=== PATIENT | male | born 1950 | race Caucasian/White ===

== ENCOUNTER 2020-04-04 05:23 | Emergency (ER) | payer MEDICARE, SELFPAY ==
[2020-04-04 05:24] VITALS: BP 148/81; PULSE 108; RESP 17; TEMP 36.6; O2SAT 93; BMI 32.9
[2020-04-04 05:35] VITALS: BP 147/92; PULSE 107; RESP 15; O2SAT 94
--- NOTE | 2020-04-04 05:40 | PC.NURSE ---
Patient must have thickener with liquids due to stroke history!
--- NOTE | 2020-04-04 06:10 | CT_ITS ---
WS: [id number] CT LUMBAR SPINE, noncontrast. HISTORY: fall, pain TECHNIQUE: Contiguous 2.5 mm axial imaging are performed. Sagittal and coronal reformats are submitte d and reviewed. All CT scans at [facility] use at least one of these dose optimization te chniques: automated exposure control; mA and/or kV adjustment per patient size (includes targeted exa ms where dose is matched to clinical indication); or iterative reconstruction. IV contrast: None DLP: 2571.75 mGy.cm COMPARISON: Lumbar spine radiograph 12/16/2017. LEFT convex curvature lumbar spine. L5 anterolisthesis by 12 mm. Bilateral L5 pars defects. Very slig ht stable anterior wedging of L1. Remote bilateral L1 transverse process fractures have been present since at least 2012. No acute fractures are identified radiographically. Subchondral lytic changes ar e noted along the inferior posterior L3 endplate surrounded by sclerosis. Degenerative disc disease t hroughout the lumbar spine, most significant at L5-S1. There is bone upon bone along the posterior di sc space at L5-S1. L1-2: No stenosis. L2-3: Osteophytic ridging and disc bulging and facet arthritis. L3-4: Shallow RIGHT paracentral disc protrusion and annular disc bulging and osteophytic ridging. Mil d central stenosis. L4-5: Mild annular disc bulging with facet and ligamentum flavum hypertrophy. Small disc protrusion L EFT paracentral. Mild foraminal stenosis. L5-S1: Mild osteophytic ridging. Moderate bilateral foraminal stenosis due to combination of factors. Extensive calcification within the abdominal aorta. No aneurysm. Mild ectasia iliac arteries. CT/CT lumbar spine wo con* [id number] IMPRESSION: 1. No acute lumbar spine fracture. 2. Grade 1 spondylolisthesis L5 with spondylolysis. 3. Advanced degenerative disc disease at L5-S1. 4. Moderate bilateral foraminal stenosis at L5-S1.
--- NOTE | 2020-04-04 06:10 | XR_ITS ---
WS: [id number] LEFT SHOULDER: 3 VIEW(S) TECHNIQUE: Internal and external rotation with Y view. HISTORY: fall, pain COMPARISON: None available. No fracture or dislocation or soft tissue abnormality. Minimal arthritic changes at the AC joint. XR/XR shoulder LT min 2V* [id number] IMPRESSION: No LEFT shoulder fracture.
--- NOTE | 2020-04-04 06:11 | XR_ITS ---
WS: [id number] LEFT FEMUR: 2 VIEW(S) TECHNIQUE: AP and lateral. HISTORY: fall, pain COMPARISON: None available. No fracture or dislocation. Vascular calcifications and degenerative changes at the hip and knee. XR/XR femur LT min 2V* [id number] Impression: No LEFT femur fracture identified.
--- NOTE | 2020-04-04 06:18 | W.ED.BACK ---
HPI - Back Pain/Injury General: Chief Complaint: Back Pain/Injury Stated Complaint: back pain Time Seen by Provider: 04/04/20 06:09 History of Present Illness: HPI Narrative: This patient is a 69-year-old male presenting today by EMS after a fall at home. He was trying to get out of bed and said he slipped because he has a silk texture comforter on the bed. Said he try to catch himself on it and just slid to the ground. He denies hitting his head or loss of consciousness. His pain is in his left shoulder, left hip, left thigh and both knees. He also has pain in his lumbar area. He has abrasions to both knees and his left toes. He has a history of a stroke leaving him with numbness on his left side. He said he still is able to ambulate does not use any sort of assistive device. MD elicited complaint: back pain, fall and other (Left shoulder, left hip, both knees) Pertinent past history: neurological deficit Onset (ago): hour(s) (1) Timing: constant and improved (Back pain is better after taking Tylenol) Severity: moderate Similar Symptoms Previously: No Location: lumbar spine Radiation: none Exacerbating factors: none Associated symptoms: Deny abdominal pain, chills, fatigue, fever(s), nausea or vomiting Review of Systems General: Reports: 10 or more systems reviewed and unremarkable except in HPI and below Const: Denies: fever(s), chills, fatigue or malaise Eyes: Denies: change in vision ENMT: Denies: odynophagia Card: Denies: chest pain or swelling of feet/ankles Resp: Denies: dyspnea, productive cough or non-productive cough GI: Denies: abdominal pain, nausea or vomiting : Denies: flank pain Musc: Reports: neck pain (Unrelated to the fall) and back pain (Since the fall) Skin/Breast: Denies: rash Neuro: Reports: numbness in extremities (Left-sided, related to prior stroke); Denies: headache(s) or weakness in extremities Loco/Lymph: Denies: easy bruising or easy bleeding Physical Exam Const: COMMON NORMALS: no acute distress, patient oriented x3, no limitations and alert GENERAL APPEARANCE: cooperative and comfortable HENMT: HEAD & SCALP: normal to inspection FACE & SINUS: normal facial exam Eye: GENERAL EYE: appearance normal, both eyes and all related structures Neck/C-Spine: COMMON NORMALS: supple, no meningeal signs and no JVD Chest: COMMONS NORMALS: normal inspection of the chest Resp: COMMON NORMALS: normal respiratory effort, No use of accessory muscles and clear to auscultation bilaterally AUSCULTATION: clear to auscultation bilaterally Cardio: COMMON NORMALS: no JVD, regular rate and No murmurs present (Cardio) RATE: regular rate RHYTHM: abnormal rhythm irregularly irregular GI: COMMON NORMALS: Normal to inspection, nondistended, normoactive bowel sounds present, Soft to palpation and non-tender INSPECTION: Yes normal to inspection AUSCULTATION: Yes normoactive bowel sounds PALPATION: Yes Soft to palpation Back/Pelvis: COMMON NORMALS: thoracic and lumbar spine normal to inspection Extremity: COMMON NORMALS: normal to inspection Neuro: COMMON NORMALS: patient oriented x3, moves all extremities, no focal motor deficits and no sensory deficits noted (Left sided numbness) SENSORIUM/ORIENTATION: Yes alert MENINGEAL SIGNS: Yes no meningeal signs Psych: COMMON NORMALS: mental status grossly normal, cooperative and normal affect Skin: COMMON NORMALS: no rashes or lesions noted and turgor normal GENERAL SKIN EXAM: no rashes or lesions noted and turgor normal Course ED course: Negative for any bony injuries. Patient ambulated in the ED but with difficulty. He was advised to use his walker that he has at home. He does not want to be admitted to the hospital or placed in a long-term. Vital Signs: Vital signs: Vital Signs Temperature 97.8 F 04/04/20 05:24 Pulse Rate 70 04/04/20 12:02 Respiratory Rate 15 04/04/20 12:02 Blood Pressure 147/98 04/04/20 06:19 Pulse Oximetry 95 04/04/20 06:19 Discharge Plan Discharge Patient Disposition: Home Clinical Impression: Hip pain, left Strain of lumbar region Qualifiers: Encounter type: initial encounter Qualified Code(s): S39.012A - Strain of muscle, fascia and tendon of lower back, initial encounter Contusion of left shoulder Qualifiers: Encounter type: initial encounter Qualified Code(s): S40.012A - Contusion of left shoulder, initial encounter Right knee sprain Qualifiers: Encounter type: initial encounter Involved ligament of knee: unspecified ligament Qualified Code(s): S83.91XA - Sprain of unspecified site of right knee, initial encounter Condition: Stable Prescriptions: No Action potassium chloride 10 mEq capsule, extended release 10 meq PO QAM RF: 0 atorvastatin 20 mg tablet 20 mg PO QPM RF: 0 warfarin 7.5 mg tablet See Rx Instructions .ROUTE .COMPLEX RF: 0 lisinopril 20 mg tablet 20 mg PO TID RF: 0 clonidine HCl 0.3 mg tablet 0.3 mg PO TID RF: 0 tamsulosin 0.4 mg capsule 0.4 mg PO BEDTIME RF: 0 hydralazine 100 mg tablet 100 mg PO TID RF: 0 warfarin 5 mg tablet See Rx Instructions .ROUTE .COMPLEX RF: 0 diltiazem HCl 120 mg capsule,extended release 24hr 120 mg PO QAM RF: 0 furosemide 20 mg tablet 20 mg PO QAM PRN (Reason: Edema) RF: 0 Novolog PenFill U-100 Insulin 100 unit/mL Cartridge 16 unit SUBCUT TID RF: 0 Lantus Solostar U-100 Insulin 100 unit/mL (3 mL) Insulin Pen 90 unit SUBCUT BEDTIME RF: 0 Discharge Orders: Discharge Order (Routine); Ordered 04/04/20 Ordered By: Anya Lerma Referrals: Destiny Bates MD [Primary Care Provider] - Discharge Diet: Usual diet Discharge Activity: Resume usual activity Patient Instructions: Fall Prevention for Older Adults (ED) Activity Restrictions/Additional Instructions: Use your walker when ambulating. Follow-up with Dr. Bates for reevaluation of your symptoms. Return to the ED if any new or worse problems occur. Discharge Date/Time: 04/04/20 12:03 Coding Level of Care Code ED Schedule Manager for Sergio Fwd Exam Comprehensive
[2020-04-04 06:19] VITALS: BP 147/98; PULSE 108; RESP 16; O2SAT 95
--- NOTE | 2020-04-04 08:55 | PC.NURSE ---
Patient able to ambulated with assistance. Incontinence of urine noted. Patient cleaned and bedding changed.
--- NOTE | 2020-04-04 10:14 | XRR_ITS ---
PROCEDURE INFORMATION: Exam: XR Right Knee Exam date and time: 04/04/2020 10:15 AM Age: 69 years old Clinical indication: Injury or trauma; Fall; Initial encounter; Blunt trauma; Knee; Right; Additional info: Fall, pain TECHNIQUE: Imaging protocol: XR Right knee. Views: 3 views. COMPARISON: No relevant prior studies available. FINDINGS: Bones/joints: Degenerative change and small joint effusion. Anatomic alignment. Soft tissues: Soft tissue calcifications. Vasculature: Vascular calcification. XR/XR knee RT 3V* [id number] IMPRESSION: Degenerative change and small joint effusion.
[2020-04-04] MEDS: acetaminophen 325 mg Tablet 975 MG PO (11:25)
[2020-04-04 12:02] VITALS: PULSE 70; RESP 15
== END 2020-04-04 12:03 | disposition home or self-care (01) ==
PROVIDERS: Emergency Provider Emergency Medicine; PCP Family Medicine
DX: S39.012A Strain of muscle, fascia and tendon of lower back, initial encounter (principal); S40.012A Contusion of left shoulder, initial encounter; S83.91XA Sprain of unspecified site of right knee, initial encounter; M25.552 Pain in left hip; Z79.01 Long term (current) use of anticoagulants; Z79.4 Long term (current) use of insulin; W06.XXXA Fall from bed, initial encounter
CPT/HCPCS: 12345; 72131; 73030; 73552; 73562; 99281; 99283

== ENCOUNTER 2020-04-07 09:27 | Outpatient (CLI) | payer MEDICARE, SELFPAY ==
--- NOTE | 2020-04-07 10:09 | MR_ITS ---
WS: [id number] MRA HEAD TECHNIQUE: Axial 3-D TOF images obtained with axial images and axial, sagittal, and coronal 2-D refor matted images. CLINICAL INFORMATION: CEREBRAL INFARCTION/FALL COMPARISON: None. FINDINGS: Distal vertebral arteries are patent. Basilar artery is patent. Normal vascularity to the [employer] territo ry bilaterally. Both ICAs are patent at the skull base. Normal vascularity to the ANATOLIY and MCA territories bilaterally . No evidence of high-grade proximal stenosis or aneurysm. 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 No high-grade flow. MR/MR angio head wo con [id number] IMPRESSION: 1. No evidence of flow-limiting stenosis or aneurysm. 2. Small focus of susceptibility artifact in the darshana described on the MRI mos t consistent with cavernoma. No evidence of high-grade flow. This is likely inc idental.
--- NOTE | 2020-04-07 10:10 | MR_ITS ---
WS: [id number] MRI HEAD WITHOUT CONTRAST TECHNIQUE: Sagittal T1, T2 axial, T2 axial FLAIR, axial and coronal T1 images, axial susceptibility w eighted imaging, axial diffusion weighted images, and coronal T2 images were obtained. CLINICAL INFORMATION: CEREBRAL INFARCTION/FALL COMPARISON: CT FINDINGS: No evidence of restricted diffusion to suggest acute ischemia. Ventricular system and basal cisterns are patent. Moderate small vessel changes with moderate parenchymal volume loss. Ex vacuo dilatation right lateral ventricle posterior horn. Chronic infarct right parietal and posterior temporal lobes w ith encephalomalacia. Ex vacuo dilatation right lateral ventricle. Chronic lacunar infarcts cerebellum. Normal vascular flow voids at the skull base. Paranasal sinuses are well aerated. Tiny chronic lacunar infarct left thalamus. Small vessel changes in the darshana. Parti al opacification of the mastoid air cells. Chronic hemosiderin in the right parietal occipital and te mporal chronic infarct bed. Focus of hemosiderin in the darshana best seen on the susceptibility weighted imaging measuring 7 mm like ly represents a small cavernoma versus capillary telangiectasia. No evidence of recent hemorrhage. Normal optic chiasm and pituitary infundibulum. Moderate symmetric atrophy involving the temporal lob es and hippocampal formations. MR/MR head wo con* [id number] IMPRESSION: 1. No evidence of restricted diffusion to suggest acute ischemia. 2. Chronic infarct right parietal and occipital lobes as well as posterior tem poral lobe with encephalomalacia. Ex vacuo dilatation posterior horn right late ral ventricle. This is unchanged since 2019 3. Chronic lacunar infarcts in the cerebellum bilaterally and left thalamus. 4. Focus of hemosiderin in the darshana best seen on the susceptibility weighted i maging measuring 7 mm likely represents a small cavernoma versus capillary yvette ngiectasia. No evidence of recent hemorrhage. This is likely incidental. 5. Moderate small vessel changes moderate parenchymal volume loss. 6. Bilateral mastoid effusions. 7. No other significant findings.
== END 2020-04-07 09:28 | disposition home or self-care (01) ==
PROVIDERS: PCP Family Medicine; Visit Provider Family Medicine
DX: I63.9 Cerebral infarction, unspecified (principal); W19.XXXA Unspecified fall, initial encounter
CPT/HCPCS: 70544; 70551

== ENCOUNTER 2020-06-11 10:37 | Outpatient (CLI) | payer MEDICARE, SELFPAY ==
--- NOTE | 2020-06-11 10:52 | XR_ITS ---
WS: [id number] Left hip, AP and frog leg, AP pelvis, 06/11/2020 Clinical Data: LEFT HIP PAIN Comparison: Left thigh and femur, 04/04/2020. Findings: No fractures or dislocations are seen. The left hip joint is intact. The right hip is not remarkable. The soft tissues are not remarkable. The pelvis is normal. The SI joints and pubic symphysis are normal. XR/XR hip LT 2-3V wo/w pel* [id number] Impression: Negative pelvis and left hip.
== END 2020-06-11 10:38 | disposition home or self-care (01) ==
LOC: RADWPI 10:45
PROVIDERS: PCP Family Medicine; Visit Provider Family Medicine
DX: M25.552 Pain in left hip (principal); M79.605 Pain in left leg
CPT/HCPCS: 73502

== ENCOUNTER 2020-12-04 08:13 | Emergency (ER) | payer MEDICARE, SELFPAY ==
[2020-12-04 08:23] VITALS: BP 126/72; PULSE 90; RESP 16; TEMP 36.4; O2SAT 96; BMI 34.0
--- NOTE | 2020-12-04 08:25 | ED_ITS ---
HPI - General Adult General: Chief complaint: Recheck/Abnormal Lab/Rx Stated complaint: HYPOGLYCEMIA Time Seen by Provider: 12/04/20 08:14 History of Present Illness: HPI narrative: 70-year-old male history of diabetes mellitus is on Lantus and NovoLog sliding scale. He takes Lantus 50 mg twice daily this morning his blood sugar got down into the 50s he denies any recent illness if you give him some glucose at home when he is feeling better on arrival here his last blood sugar per EMS was in the 180s. He is hungry hungry awake and alert with no significant pain difficulty breathing or other complaints. Patient states he recently did increase his insulin from 45 twice daily to 50 twice daily Onset (ago): minute(s) Relieving factors: other (Glucose) Exacerbating factors: none Associated symptoms: Deny chest pain, confusion, cough, diaphoresis, decreased appetite, dyspnea, fevers/chills, headache(s), malaise, nausea, rash, palpitations, seizures, short of breath, syncope, vomiting or weakness Treatments prior to arrival: other (glucose) Review of Systems Const: Denies: malaise or diaphoresis ENMT: Denies: throat pain, ear or mastoid pain, nasal discharge or nasal congestion Card: Denies: chest pain, palpitations or syncope Resp: Denies: dyspnea GI: Denies: nausea or vomiting : Denies: flank pain, dysuria, urinary frequency or urinary urgency Skin/Breast: Denies: rash Neuro: Denies: headache(s) or confusion Physical Exam Const: COMMON NORMALS: no acute distress GENERAL APPEARANCE: cooperative and comfortable ORIENTATION/CONSCIOUSNESS: Yes awake, Yes oriented to person, Yes oriented to place and Yes oriented to time HENMT: COMMON NORMALS: normocephalic, atraumatic and hearing grossly normal bilaterally HEAD & SCALP: normocephalic and atraumatic Eye: COMMON NORMALS: Equal, round and reactive pupils present, EOMs intact bilaterally, conjunctivae normal and no scleral icterus CONJUNCTIVA: Yes conjunctivae normal PUPIL: Yes Equal, round and reactive pupils present Neck/C-Spine: COMMON NORMALS: full ROM, no lymphadenopathy, supple and no JVD Lymph: LYMPHATIC: no lymphadenopathy noted and no lymphedema noted Resp: COMMON NORMALS: normal respiratory effort, No retractions, No use of accessory muscles and clear to auscultation bilaterally AUSCULTATION: clear to auscultation bilaterally Cardio: COMMON NORMALS: no JVD, regular rate, regular rhythm and No murmurs present (Cardio) RATE: regular rate RHYTHM: regular rhythm GI: COMMON NORMALS: Soft to palpation and No hepatosplenomegaly present AUSCULTATION: Yes normoactive bowel sounds PALPATION: Yes Soft to palpation, No Tenderness to palpation present (GI), No Guarding due to palpation present (GI) and Yes No hepatosplenomegaly present Extremity: COMMON NORMALS: normal to inspection, capillary refill normal, no clubbing, cyanosis or edema, no calf tenderness and no pedal edema Neuro: SENSORIUM/ORIENTATION: Yes oriented to person, Yes oriented to place and Yes oriented to time Skin: COMMON NORMALS: no rashes or lesions noted GENERAL SKIN EXAM: no rashes or lesions noted Course Vital Signs: Vital signs: Vital Signs Temperature 97.5 F L 12/04/20 08:23 Pulse Rate 83 12/04/20 09:53 Respiratory Rate 16 12/04/20 09:53 Blood Pressure 131/83 12/04/20 09:53 Pulse Oximetry 95 12/04/20 09:53 MDM - General Adult MDM Narrative: Medical decision making narrative: Blood sugar improved patient stable he wishes to go home I see no reason based on the blood sugars not to allow him to go home. Patient is eating well encouraged him to monitor blood sugars closely the next 6 to 8 hours. Lab Data: Labs: Lab Results 12/04/20 12/04/20 Range/Units 08:22 09:32 POC Glucose 184 H 99 (70-110) mg/dL Discharge Plan Discharge Patient Disposition: Home Clinical Impression: Hypoglycemia Condition: Stable Prescriptions: No Action potassium chloride 10 mEq capsule, extended release 10 meq PO QAM RF: 0 atorvastatin 20 mg tablet 20 mg PO QPM RF: 0 warfarin 7.5 mg tablet See Rx Instructions .ROUTE .COMPLEX RF: 0 lisinopril 20 mg tablet 20 mg PO TID RF: 0 clonidine HCl 0.3 mg tablet 0.3 mg PO TID RF: 0 tamsulosin 0.4 mg capsule 0.4 mg PO BEDTIME RF: 0 hydralazine 100 mg tablet 100 mg PO TID RF: 0 warfarin 5 mg tablet See Rx Instructions .ROUTE .COMPLEX RF: 0 diltiazem HCl 120 mg capsule,extended release 24hr 120 mg PO QAM RF: 0 furosemide 20 mg tablet 20 mg PO QAM PRN (Reason: Edema) RF: 0 Novolog PenFill U-100 Insulin 100 unit/mL Cartridge 16 unit SUBCUT TID RF: 0 Lantus Solostar U-100 Insulin 100 unit/mL (3 mL) Insulin Pen 90 unit SUBCUT BEDTIME RF: 0 Discharge Orders: Discharge ED (Routine); Ordered 12/04/20 Ordered By: Bucky Walker Referrals: Destiny Bates MD [Primary Care Provider] - Discharge Diet: Usual diet Discharge Activity: Increase activity as tolerated Patient Instructions: Opioid Safety Activity Restrictions/Additional Instructions: Monitor blood sugars every 2 hours for the next 6 to 8 hours. Coding Level of Care Code ED Scrubber System Attendant for Ryleeg Fwd Exam Comprehensive
[2020-12-04 08:35] LABS: Glucose Point of Care 184 mg/dL (70-110)
[2020-12-04 09:38] LABS: Glucose Point of Care 99 mg/dL (70-110)
[2020-12-04 09:53] VITALS: BP 131/83; PULSE 83; RESP 16; O2SAT 95
== END 2020-12-04 09:54 | disposition home or self-care (01) ==
PROVIDERS: Emergency Provider Family Medicine; PCP Family Medicine
DX: E11.649 Type 2 diabetes mellitus with hypoglycemia without coma (principal); Z79.4 Long term (current) use of insulin; Z79.01 Long term (current) use of anticoagulants
CPT/HCPCS: 36416; 82962; 99282

== ENCOUNTER 2021-01-20 12:35 | Inpatient (IN) | payer MEDICARE, SELFPAY ==
[2021-01-20] VITALS (18 sets, daily range): BP systolic 148–193; BP diastolic 100–140; PULSE 99–129; RESP 7–29; TEMP 36.4–36.8; O2SAT 91–98; BMI 31.0
--- NOTE | 2021-01-20 12:49 | CT_ITS ---
WS: [id number] CT HEAD TECHNIQUE: Noncontrast CT of the head obtained from the skullbase to the vertex. CLINICAL INFORMATION: AMS, fall COMPARISON: MRI April 07, [address] 2018 DLP: 1010.[address] scans at [facility] use at least one of these dose optimization techniques: automat ed exposure control; mA and/or kV adjustment per patient size (includes targeted exams where dose is matched to clinical indication); or iterative reconstruction. FINDINGS: No evidence of intracranial hemorrhage or mass effect. Ventricular system and basal cisterns are anderson nt. Moderate small vessel changes with moderate parenchymal volume loss. Chronic infarct right pariet al and occipital lobes with encephalomalacia. Chronic infarct right posterior temporal lobe. Chronic lacunar infarcts in the cerebellum bilaterally. Chronic lacunar infarct left thalamus. Intracranial v ascular calcification. Incidental arachnoid cyst left middle cranial fossa. Paranasal sinuses and mastoid air cells are well aerated. .Normal visualized soft tissues. CT/CT head wo con* [id number] IMPRESSION: 1. No evidence of intracranial hemorrhage or mass effect. 2. Moderate small vessel changes with moderate parenchymal volume loss. 3. Chronic infarct with encephalomalacia unchanged from the prior MRI. 4. Chronic lacunar infarcts in the left thalamus and cerebellum bilaterally. 5. No acute intracranial findings and no significant interval changes..
--- NOTE | 2021-01-20 12:49 | ECG_ITS ---
[facility] Test Date: 2021-01-20 Pat Name: Luis Mcintosh Department: Room: Gender: Male Picking Tech: : 1950 Requested By: Sepideh Goddard I Order Number: [id number] Dilshad MD: Cam Medrano M.D. Measurements Intervals [place] Rate: 105 P: [place]: QRS: -56 QRSD: 83 T: 108 QT: 345 QTc: 457 Interpretive Statements ATRIAL FIBRILLATION WITH RAPID VENTRICULAR RESPONSE PATTERN CONSISTENT WITH PULMONARY DISEASE LEFT ANTERIOR FASCICULAR BLOCK [QRS AXIS <= -45, QR IN I, RS IN II] SEPTAL MYOCARDIAL INFARCTION [40+ ms Q WAVE IN V1/V2], OF INDETERMINATE AGE Compared to ECG 05/07/2019 21:33:09 Myocardial infarct finding now present T-wave abnormality no longer present Electronically Signed On 01-20-2021 18:22:35 CDT by Cam Medrano M.D. [id number]
--- NOTE | 2021-01-20 12:49 | XR_ITS ---
WS: [id number] Exam: XR chest 1V portable [id number] Date/Time of Exam: 01/20/2021 12:49 PM Reason For Exam: AMS Comparison 05/07/2019. Findings: The lungs are clear and fully expanded. Costophrenic angles are sharp. No infiltrates. Bronchovascula r relief appears normal. Cardiac silhouette is unremarkable. Bony elements are intact. XR/XR chest 1V portable [id number] IMPRESSION: Unremarkable chest radiograph.
--- NOTE | 2021-01-20 13:04 | PC.NURSE ---
patient's brother stated patient got confused past two days. patient has left side weakness due to stroke.
[2021-01-20 13:11] LABS: Basophils # 0.1 10^3/uL (0.0-0.1); Basophils % 0.3 %; Hemoglobin 21.5 g/dL (11.7-16.6); Lymphocytes # 0.9 10^3/uL (0.8-4.8); Lymphocytes % 4.6 %; Mean Corpuscular HGB Conc 34.7 g/dL (30.0-36.0); Mean Corpuscular Hemoglobin 31.7 pg (28.0-34.0); Mean Corpuscular Volume 91.3 fL (80-94); Mean Platelet Volume 11.8 fL (7.4-10.4); Monocytes # 1.1 10^3/uL (0.2-0.9); Monocytes % 5.4 %; Neutrophils # 18.15 10^3/uL (1.8-7.7); Neutrophils % 88.9 %; Nucleated Red Blood Cells % 0 %; Platelet Count 199 10^3/cmm (130-400); Red Blood Count 6.79 10^6/uL (4.1-5.3); Red Cell Distribution Width 12.2 % (12.1-15.1); White Blood Count 20.4 10^3/uL (4.0-10.0)
[2021-01-20 14:02] LABS: Alanine Aminotransferase 24 U/L (0-41); Albumin Level 3.3 g/dL (3.5-5.2); Alkaline Phosphatase 89 IU/L (40-130); Aspartate Amino Transferase 30 U/L (0-40); Blood Urea Nitrogen 46 mg/dL (8-23); C Reactive Protein 29.5 mg/L (0.0-4.9); Calcium 12.9 mg/dL (8.5-10.5); Carbon Dioxide 25 mmol/L (22-29); Chloride 92 mmol/L (98-107); Globulin 4.1 g/dL (1.3-4.6); Glomerular Filtration Rate 35.4 mL/min (90-130); Glucose 418 mg/dL (65-115); Lipase 33 U/L (13-60); Osmolality Calculated 304 mOsm/kg (285-295); Sodium 132 mmol/L (136-145); Total Bilirubin 1.6 mg/dL (0.15-1.2); Total Protein 7.4 g/dL (6.6-8.7)
--- NOTE | 2021-01-20 14:02 | PC.NURSE ---
MD awared HR and BP
[2021-01-20 14:05] LABS: Lactate (Lactic Acid level) 3.3 mmol/L (0.5-2.2)
[2021-01-20 14:07] LABS: Anion Gap 19.3 (5-19); Potassium 4.3 mmol/L (3.5-5.1)
[2021-01-20 14:08] LABS: Creatine Phosphokinase 358 U/L (39-308)
[2021-01-20 14:19] LABS: Troponin(5th) Baseline 43 ng/L (0-15)
--- NOTE | 2021-01-20 14:26 | PC.PHAR ---
PT UNABLE TO VERIFY MEDICATIONS-MEDICATIONS ENTERED ARE FROM WHAT [employer] MAIL ORDER HAS FILLED RECENTLY AND WHAT WAS ON THE [facility] MED LIST-NOTES ARE MADE IN THE PHARMACY COMMENTS
[2021-01-20 14:32] LABS: Add Urine Microscopic? YES; Bilirubin Urine Neg (Negative); Blood Urine 3+ (Negative); Glucose Urine UA 4+ (Normal); Ketones Urine 1+ (Negative); Leukocyte Esterase Urine Negative (Negative); Nitrate Urine Negative (Negative); Protein Urine 3+ (Negative); Urine Appearance Hazy (CLEAR); Urine Color Yellow (Yellow); Urobilinogen Urine Norm (Negative); pH Urine 5 (5-7)
[2021-01-20] MEDS: sodium chloride 0.9% 1,000 ML 999 ML IV (14:35)
[2021-01-20 14:47] LABS: Add Urine Culture? No; Bacteria Urine 2+ /hpf; WBC Urine 0-4 /hpf (0-5)
--- NOTE | 2021-01-20 14:49 | ECG_ITS ---
[facility] Test Date: 2021-01-20 Pat Name: Luis Mcintosh Department: Room: Gender: Male Cloth Calender: : 1950 Requested By: Sepideh Goddard I Order Number: [id number] Dilshad MD: Cam Medrano M.D. Measurements Intervals [place] Rate: 149 P: [place]: QRS: -59 QRSD: 83 T: 119 QT: 295 QTc: 465 Interpretive Statements ATRIAL FIBRILLATION WITH RAPID VENTRICULAR RESPONSE LEFT ANTERIOR FASCICULAR BLOCK [QRS AXIS <= -45, QR IN I, RS IN II] SEPTAL MYOCARDIAL INFARCTION [40+ ms Q WAVE IN V1/V2], PROBABLY OLD Compared to ECG 01/20/2021 12:58:04 No significant changes Electronically Signed On 01-20-2021 18:29:12 CDT by Cam Medrano M.D. [email or web address].[email or web address]/store/[id number]
[2021-01-20 15:22] LABS: Reflex Lactate Order REFLEX LACTIC ORDERD
--- NOTE | 2021-01-20 15:57 | CTR_ITS ---
PROCEDURE INFORMATION: Exam: CT Chest Without Contrast; Diagnostic Exam date and time: 01/20/2021 3:57 PM Age: 70 years old Clinical indication: Shortness of breath; Additional info: Copd/pna TECHNIQUE: Imaging protocol: Diagnostic computed tomography of the chest without contrast. Radiation optimization: All CT scans at this facility use at least one of these dose optimization techniques: automated exposure control; mA and/or kV adjustment per patient size (includes targeted exams where dose is matched to clinical indication); or iterative reconstruction. COMPARISON: CR XR chest 1V portable [id number] 01/20/2021 1:46 PM RADIATION DOSE METRICS: Total DLP (mGy-cm): 1086.3 FINDINGS: Lungs: Bibasilar atelectasis versus minimal infiltrate. Right lower lobe calcified benign granuloma. Pleural spaces: Unremarkable. No pneumothorax. No pleural effusion. Heart: Cardiomegaly. Coronary artery atherosclerotic calcifications. Aorta: Unremarkable. No aortic aneurysm. Lymph nodes: Unremarkable. No enlarged lymph nodes. Liver: Right hepatic lobe cyst. Gallbladder and bile ducts: Cholelithiasis. Kidneys and ureters: Left kidney cyst, negative for follow up. Bones/joints: Unremarkable. No acute fracture. Soft tissues: Unremarkable. CT/CT chest wo con [id number] IMPRESSION: 1. Bibasilar atelectasis versus minimal infiltrate. 2. Right lower lobe calcified benign granuloma. 3. Cardiomegaly. 4. Coronary artery atherosclerotic calcifications. 5. Right hepatic lobe cyst. 6. Cholelithiasis. 7. Left kidney cyst, negative for follow up. COMMENTS: Consistent with the [employer]'s Incidental Findings Committee white paper (J Am Natali Radiol 2018): Any incidental renal lesion less than 1 cm or classified as too small to characterize, or any incidental cystic renal lesion characterized as simple-appearing, is likely benign. No follow-up imaging is recommended for these lesions per consensus recommendations based on imaging criteria. Radiation Dose CTDIVOL = (mGy): DLP = 1086.3 (mGy-cm)
--- NOTE | 2021-01-20 16:05 | PM.HP ---
Providers/Chief Complaint Admitting Physician: Issa Porter MD Primary Care Provider: Destiny Bates MD Chief Complaint: CONFUSED/ FOUND ON FLOOR History of Present Illness Luis Mcintosh is a 70 year old male with past medical history of A. fib with RVR on Coumadin, DVT, previous ischemic stroke in right MCA territory with residual left-sided in sensation without any weakness, uncontrolled type 2 diabetes mellitus, hypertension, dyslipidemia, polycythemia, CKD with baseline creatinine of 1.8 presented to the ER today via EMS with brother at bedside. After the brother patient lives with his mother who used to take care of his medications otherwise patient is fairly functional and goes to the gym, [employer] to swim and the mall by himself. Brother states unfortunately mother last Sunday. Today is . Since then patient has been having occasional episodes of hallucination when he would see his mother walking around the house. Patient has been living by himself for now. After the brother patient's nephew found him on the floor yesterday at that time he was alert and oriented. Today as they were not able to get in touch with him they went to see him at his home and they found him lying on the floor again but this time he was disoriented. He did he has not had any bowel or bladder accidents, vomitus around the place where he was found on the floor. Brother is not aware of any nausea, vomiting, diarrhea, fever. On review of records patient was in hospital a month ago when he was treated for hypoglycemia. His blood work today showed a white count of 20,000, hemoglobin of 21, platelet of 199, sodium of 132, chloride of 92, BUN of 46, creatinine of 1.9, glucose of 418, lactate of 3.3, calcium of 12.9, bilirubin of 1.6, CPK of 358, baseline troponin of 43, CRP of 29, UA showing negative for nitrite and leuk esterase with about 3+ of protein, 4+ for glucose and 1+ for ketones with imaging results as below. On examination patient was lying in bed awake but disoriented, pleasant moving all his limbs but not meaningfully following simple commands saturating well on room air. Review of Systems General: Reports: ROS unobtainable due to mental status Medications/Allergies Home Medications Medication Instructions Recorded Confirmed Last Taken Type atorvastatin 20 mg PO QPM 04/04/20 01/20/21 04/03/20 History clonidine HCl 0.3 mg PO TID 04/04/20 01/20/21 04/03/20 History diltiazem HCl 120 mg PO QAM 04/04/20 01/20/21 04/03/20 History furosemide 20 mg PO QAM PRN 04/04/20 01/20/21 04/03/20 History hydralazine 100 mg PO TID 04/04/20 01/20/21 04/03/20 History insulin glargine [Lantus Solostar 51 unit SUBCUT BID 04/04/20 01/20/21 04/03/20 History U-100 Insulin] lisinopril 20 mg PO BID 04/04/20 01/20/21 04/03/20 History potassium chloride 10 meq PO QAM 04/04/20 01/20/21 04/03/20 History tamsulosin 0.4 mg PO BEDTIME 04/04/20 01/20/21 04/03/20 History warfarin See Rx Instructions .ROUTE .COMPLEX 04/04/20 01/20/21 04/03/20 History gabapentin 300 mg PO TID 01/20/21 01/20/21 Unknown History semaglutide 0.5 mg SUBCUT Q7D 01/20/21 01/20/21 Unknown History Allergies Allergy/AdvReac Type Severity Reaction Status Date / Time Penicillins Allergy ALGY-Rash Verified 01/20/21 14:24 PFSH Acute PFSH: Medical History (Updated 01/20/21 @ 17:20 by Issa Porter MD) Atrial fibrillation CAD (coronary artery disease) Chronic anticoagulation CKD (chronic kidney disease) Baseline creatinine 1.9 CVA (cerebral vascular accident) Residual left side and sensation with no residual weakness Depression DVT (deep venous thrombosis) Dyslipidemia HTN (hypertension) Peripheral neuropathy Polycythemia Poorly controlled type 2 diabetes mellitus Family History (Updated 01/20/21 @ 16:10 by Issa Porter MD) Other CAD (coronary artery disease) Cancer Social History (Updated 01/20/21 @ 16:10 by Issa Porter MD) Smoking and tobacco status: former smoker Alcohol intake: never Substance/Drug Use: never Caregiver/support person: No Household members: none Housing: House Vitals/I&O/Wt Last Vital Signs Temp 98.2 F 01/20/21 12:36 Pulse 129 H 01/20/21 14:53 Resp 19 H 01/20/21 14:53 BP 175/135 01/20/21 14:53 Pulse Ox 98 01/20/21 14:53 Weight last 48 hrs Weight 95.254 kg Physical Exam Narrative: EXAM NARRATIVE: General: No acute distress, alert to self, disoriented, awake, moving all 4 limbs not meaningfully, following simple commands HEENT: PERRLA, pupils bilaterally equal and reactive Chest: Normal vesicular breath sounds, no added sounds, equal good air entry bilaterally CVS: S1-S2 irregularly irregular, tachycardia no gallops, no rubs Abdomen: Soft, nontender, no organomegaly, bowel sounds present Neuro: No focal deficits, no facial deformity, moving all 4 limbs, power 5 x 5 in all limbs. Extremities: Bilateral lower limbs showing chronic vascular changes without edema. Urinary Catheter Management^: Regan: Cath Placed During This Visit: yes Urinary Catheter Date of Insertion: 01/20/21 Urinary Catheter Time of Insertion: 14:01 Data : 01/20/21 12:56 01/20/21 13:31 A&P Assessment and plan (1) Altered mental status: Status: Acute (2) Atrial fibrillation with rapid ventricular response: Status: Acute (3) Rhabdomyolysis: Status: Acute (4) CKD (chronic kidney disease): Status: Chronic (5) Poorly controlled type 2 diabetes mellitus: Status: Chronic (6) CVA (cerebral vascular accident): Status: Acute (7) Chronic anticoagulation: Status: Acute (8) Dyslipidemia: Status: Chronic (9) HTN (hypertension): Status: Chronic (10) Metabolic encephalopathy: Status: Acute (11) Lactic acidosis: Status: Acute (12) Hyponatremia: Status: Acute Additional A&P Information 70-year-old male with past medical history of multiple CVA, atrial fibrillation, dyslipidemia, uncontrolled hypertension and uncontrolled diabetes mellitus who used to live with his mother who unfortunately 4 days ago presented to the hospital via EMS and confused state. Altered mental status: Could be multifactorial. Most likely metabolic encephalopathy because of sepsis, dehydration, uncontrolled elevated blood sugars. Sepsis ruled in because of tachycardia, leukocytosis, endorgan damage, elevated lactate, confusion. Check blood culture, urine culture, sputum culture, MRSA swab, procalcitonin, urine Legionella, bacterial antigen, D-dimer, urine lites, alcohol level, salicylate level, ferritin level, flu swab. Urinalysis negative for signs of infection, patient saturating well on room air. Unclear source of sepsis for now. For now start patient on imipenem 500 every 8 hourly as per creatinine clearance. Will reassess antibiotics as per culture results. Check CT chest without contrast. Normal saline at 75 cc/h. Monitor for fluid overload. If mentation does not improve the next 24 hours will plan for MRI brain. Unfortunately cannot do CTA head and neck because of CKD and elevated creatinine. Echocardiogram will be done. Atrial fibrillation with rapid ventricular response: Most likely secondary to noncompliance of medications. Start on Cardizem drip. Cardizem 60 daily 8 hourly. Will uptitrate the oral dose and wean off IV Cardizem accordingly. Check echocardiogram. Continue home dose of Coumadin 5 and 7.5 mg on alternate days with 7.5 mg on Sunday as well for now. Check INR. Daily weights. Strict input output charting. Regan catheterization for now. Rhabdomyolysis: Most likely severe dehydration and fall. IV fluid as above. We will recheck CPK tomorrow. CKD: Baseline creatinine 1.8-1.9. Creatinine at baseline. Continue to monitor. Medical reconciliation done for nephrotoxic drugs. Hold home dose of lisinopril for now. No acidosis at present. Patient does have elevated BUN and pseudohyponatremia. Type 2 diabetes mellitus: Uncontrolled: Check HbA1c. N.p.o. for now as patient is disoriented. Takes 51 units Lantus twice daily. For now start him on 30 units twice daily. For sliding scale at high-dose protocol every 6 hourly. Hypertension: Goal blood pressure less than 140/90 mmHg. Patient takes clonidine 0.3 3 times daily, hydralazine 100 3 times daily, lisinopril 20, oral Cardizem. For now continue home dose of hydralazine, decrease clonidine to 0.1 3 times daily. Stop lisinopril. We will uptitrate medications accordingly. Lactic acidosis: Most likely secondary to severe dehydration. Cannot rule out because of sepsis. Hyponatremia: Most likely pseudohyponatremia because of elevated blood sugars. History of CVA. Dyslipidemia History of DVT. Check iron panel, TSH, INR, echocardiogram, lower limb Dopplers for DVT. NPO. Warfarin will help with DVT prophylaxis as well. Famotidine for PUD prophylaxis. CODE STATUS: As per patient's brother who will be his DPOA when patient is not able to make his own medical decisions for now the patient will be full code. Discharge planning: As per the brother mother used to take care of his medications and in the past patient has had tendency of not taking his medications appropriately causing him to have frequent admissions and a stroke. PT/OT evaluation. Most likely patient would need home health on discharge. Attestations Medical Necessity Statement*: Needs admission for more than 2 midnights for management of altered mental status secondary to acute metabolic encephalopathy, uncontrolled diabetes mellitus, atrial fibrillation with rapid ventricular response, rhabdomyolysis Time Spent in Patient Care: Greater than 35 minutes (>than 50% of time spent in counselling and/or direct pt care on unit). Coding Level of Care Code Acute Attending Psychiatrist for [facility] Fwd Diagnoses Altered mental status R41.82 Atrial fibrillation with rapid ventricular response I48.91 Rhabdomyolysis M62.82 CKD (chronic kidney disease) N18.9 Poorly controlled type 2 diabetes mellitus E11.65 CVA (cerebral vascular accident) I63.9 Chronic anticoagulation Z79.01 Dyslipidemia E78.5 HTN (hypertension) I10 Metabolic encephalopathy G93.41 Lactic acidosis E87.2 Hyponatremia E87.1
--- NOTE | 2021-01-20 17:00 | PC.NURSE ---
Patient to CSU from ED at 1640. Patient only oriented to self, not following safety instructions. Patient HR and BP elevated when placed on monitor. Brother at bedside. Dr. Porter came to bedside to evaluate patient. Cardizem gtt initiated. Verbal order to give 10 mg Cardizem bolus now, start gtt at 10 mg/hr, then titrate accordingly. Give 100 mg hydralazine PO now then resume TID schedule. Start patient on Cardizem 60 mg PO TID, first dose at 2200 tonight. RBVO. Orders implemented accordingly. verbal order to give PO medications crushed in applesauce. Do not continue to feed until patient tolerance is evaluated. RBVO Bed in low locked position, bed alarm on. Nurse to continue to monitor.
[2021-01-20] MEDS: sodium chloride 0.9% 1,000 ML 50 ML IV (17:02)
[2021-01-20] MEDS: famotidine 20 mg/2 mL INJ IVP (17:06)
[2021-01-20 17:26] LABS: Glucose Point of Care 364 mg/dL (70-110)
[2021-01-20 17:41] LABS: D Dimer 1.82 ug/mIFEU (0-0.59)
[2021-01-20 17:44] LABS: Troponin 5 2HR 40.52 ng/L (0-15)
[2021-01-20 17:45] LABS: Lactic Acid level (Lactate) 2.2 mmol/L (0.5-2.2)
[2021-01-20] MEDS: ferrous gluconate 324 mg Tablet PO (17:46)
[2021-01-20] MEDS: atorvastatin 40 mg Tablet 20 MG PO (17:46)
[2021-01-20] MEDS: hyDRALAzine 50 mg Tablet 100 MG PO ×2 (17:46→21:40)
[2021-01-20 17:48] LABS: Troponin 5 2HR Delta -2.48 ABS# (0-10)
[2021-01-20 17:51] LABS: NT Pro B Type Natriuretic Pept 2026 pg/mL (0-125); Procalcitonin 0.14 ng/mL (0-0.5)
--- NOTE | 2021-01-20 17:57 | PC.NURSE ---
Dr. Porter notified that patient did well with applesauce and crushed meds sitting in high fowlers. No sign of aspiration. Verbal order to advance to GI soft diet. RBVO.
[2021-01-20 18:02] LABS: Iron 66 ug/dL (59-158); Percent Saturation 28.9 % (20-50); Total Iron Binding Capacity 228 mcg/dl; Unsaturated Iron Binding 162 ug/dL (112-347)
[2021-01-20 18:25] LABS: Thyroid Stimulating Hormone 0.53 uIU/mL (0.27-4.20)
[2021-01-20 18:31] LABS: Acetaminophen < 5.0 ug/mL (10-30); Alcohol Level < 10 mg/dL (0-10); Salicylate < 0.3 mg/dL (3-10)
[2021-01-20 18:32] LABS: Glucose Point of Care 394 mg/dL (70-110)
[2021-01-20 18:32] LABS: Amphetamines Screen Urine Negative (Negative); Barbiturates Screen Urine Negative (Negative); Benzodiazepines Screen Urine Negative (Negative); Cocaine Screen Urine Negative (Negative); Opiate Screen Urine Negative (Negative); PCP Screen Urine Negative (Negative); THC Screen Urine Negative (Negative)
[2021-01-20 18:48] LABS: Influenza A by IFA Negative (Negative); Influenza B by IFA Negative (Negative)
--- NOTE | 2021-01-20 18:49 | ECG_ITS ---
[facility] Test Date: 2021-01-20 Pat Name: Luis Mcintosh Department: Room: 107 Gender: Male Seconds Handler: : 1950 Requested By: Sepideh Goddard I Order Number: [id number] Dilshad MD: Pearl Lopez M.D. Measurements Intervals [place] Rate: 114 P: [place]: QRS: -40 QRSD: 76 T: 136 QT: 341 QTc: 471 Interpretive Statements ATRIAL FIBRILLATION WITH RAPID VENTRICULAR RESPONSE PATTERN CONSISTENT WITH PULMONARY DISEASE SEPTAL MYOCARDIAL INFARCTION [40+ ms Q WAVE IN V1/V2], PROBABLY OLD INFERIOR MYOCARDIAL INFARCTION [40+ ms Q WAVE AND/OR ST/T ABNORMALITY IN II/aVF], PROBABLY OLD Compared to ECG 01/20/2021 14:39:09 Left anterior fascicular block no longer present Myocardial infarct finding still present Electronically Signed On 01-21-2021 22:37:56 CDT by Pearl Lopez M.D. [id number]
[2021-01-20 19:16] LABS: Potassium, Radom Urine 55 mmol/L
[2021-01-20 19:26] LABS: Urine Random Chloride 13 mmol/L; Urine Random Sodium > 10 mmol/L
[2021-01-20 19:38] LABS: Troponin 5 6HR 40.46 ng/L (0-15)
[2021-01-20 19:39] LABS: Troponin 5 6HR Delta -2.54 ng/L (0-12)
[2021-01-20] MEDS: insulin glargine 100 units/1 mL 30 UNIT SUBCUT (19:40)
--- NOTE | 2021-01-20 19:49 | PC.NURSE ---
Bedside report received from Nancy WHALEY. Patient is resting in bed with his brother Mina at the bedside. Patient will not open his eyes very much. He does shake his head yes when I ask him if I can do my assessment and shakes his head No when I ask him if he is in pain. Patient will not answer any other questions, is unable to squeeze my hand. Patient does have left sided weakness from a previous stroke. Brother states this is a small improvement from yesterday and does not stress any concerns at this time. Nurse will continue to monitor.
[2021-01-20 20:20] LABS: Glucose Point of Care 382 mg/dL (70-110)
[2021-01-20] MEDS: gabapentin 300 mg Capsule PO (21:40)
[2021-01-20] MEDS: cloNIDine 0.1 mg Tablet PO (21:40)
[2021-01-20] MEDS: tamsulosin 0.4 mg Capsule PO (21:41)
[2021-01-20] MEDS: dilTIAZem 60 mg Tablet PO (21:41)
[2021-01-20 23:31] LABS: Glucose Point of Care 205 mg/dL (70-110)
--- NOTE | 2021-01-20 23:40 | W.ED.AMS ---
HPI - Altered Mental Status General: Chief Complaint: Altered Mental Status Stated Complaint: CONFUSED/ FOUND ON FLOOR Time Seen by Provider: 01/20/21 12:36 Source: family (brother) and EMS Mode of arrival: EMS Limitations: altered mental status History of Present Illness: HPI narrative: Patient is a 70-year-old male with a history of diabetes mellitus, hypertension, prior CVA with residual left-sided weakness. The patient was brought in by EMS after he was found on the floor by his brother. The patient is confused and is unable to give me a reliable history. All of the history is obtained from his brother. The brother states that yesterday when he tried to get in touch with the patient he was unable to and so he sent his son, the patient's nephew, to check on him and he found the patient on the floor in front of the bathroom. He helped the patient up and left him at home. Today when his brother tried to reach the patient again and could not get in touch with him he went to his house and found him naked in front of the bathroom on the floor. He is unsure how long he had been down like there for. He also states that he was confused. Of note, since the patient stroke a few years ago his care has been taken over by his mother. She takes care of all his medications. However 5 days ago his mother and since then the patient has been on his own. He used to live with his mother but not lives by himself. It is uncertain if he has been taking his medications as prescribed, if he has been taking them at all or how he has been caring for himself. MD complaint: altered mental status Associated symptoms: Deny auditory hallucinations, visual hallucinations, delusions, depression, homicidal ideation, racing thoughts or suicidal ideation Review of Systems General: Reports: ROS unobtainable due to mental status Psych: Denies: depression, visual hallucinations, auditory hallucinations, suicidal ideation or homicidal ideation [facility] ED PFSH: Medical History (Reviewed 01/20/21 @ 23:44 by Sepideh Goddard MD, [facility]) Atrial fibrillation CAD (coronary artery disease) Chronic anticoagulation CKD (chronic kidney disease) Baseline creatinine 1.9 CVA (cerebral vascular accident) Residual left side and sensation with no residual weakness Depression DVT (deep venous thrombosis) Dyslipidemia HTN (hypertension) Peripheral neuropathy Polycythemia Poorly controlled type 2 diabetes mellitus Family History (Reviewed 01/20/21 @ 23:44 by Sepideh Goddard MD, [facility]) Other CAD (coronary artery disease) Cancer Social History (Reviewed 01/20/21 @ 23:44 by Sepideh Goddard MD, [facility]) Smoking and tobacco status: former smoker Alcohol intake: never Substance/Drug Use: never Caregiver/support person: No Household members: none Housing: House Physical Exam Const: COMMON NORMALS: no acute distress, average body habitus, no limitations, healthy appearing, alert and well nourished HENMT: COMMON NORMALS: normocephalic, atraumatic and moist oral mucous membranes HEAD & SCALP: normocephalic and atraumatic Eye: COMMON NORMALS: Equal, round and reactive pupils present, EOMs intact bilaterally, conjunctivae normal and no scleral icterus CONJUNCTIVA: Yes conjunctivae normal PUPIL: Yes Equal, round and reactive pupils present Neck/C-Spine: COMMON NORMALS: full ROM, supple, no meningeal signs, no JVD and No carotid bruits Resp: COMMON NORMALS: normal respiratory effort, No retractions, No use of accessory muscles, clear to auscultation bilaterally and percussion normal AUSCULTATION: clear to auscultation bilaterally PERCUSSION: percussion normal Cardio: COMMON NORMALS: no JVD, regular rate, regular rhythm, S1 normal heart sound present, S2 normal heart sound present, No gallops present (Cardio), No clicks present (Cardio), No murmurs present (Cardio), No rub (Cardio) and Peripheral pulses 2+ throughout RATE: regular rate RHYTHM: regular rhythm HEART SOUNDS: S1 normal heart sound present and S2 normal heart sound present PERIPHERAL PULSES: Peripheral pulses 2+ throughout GI: COMMON NORMALS: Normal to inspection, nondistended, normoactive bowel sounds present, Soft to palpation, non-tender, No hepatosplenomegaly present, no masses and no bruits PALPATION: Yes Soft to palpation and Yes No hepatosplenomegaly present Extremity: COMMON NORMALS: normal to inspection, full ROM, capillary refill normal, no calf tenderness and no pedal edema Neuro: SENSORIUM/ORIENTATION: Yes alert and Yes Orientation impaired MENINGEAL SIGNS: Yes no meningeal signs Psych: THOUGHT CONTENT: No delusions Skin: COMMON NORMALS: no rashes or lesions noted, turgor normal, no jaundice, no petechiae and no mottling GENERAL SKIN EXAM: no rashes or lesions noted and turgor normal TRAUMA: abrasion (Abrasion to his left knee) Urinary Catheter Management^: Regan: Cath Placed During This Visit: yes Reason for Continuing Indwelling Catheter: Acute Urinary Retention or Obstruction Urinary Catheter Date of Insertion: 01/20/21 Urinary Catheter Time of Insertion: 14:01 Course Reevaluation(s): Reevaluation #1: Discussed his lab and imaging findings with his brother. Explained to him his multiple issues including his altered mental status, atrial fibrillation with RVR that is uncontrolled and needs to be on continuous infusion of diltiazem, dehydration, leukocytosis, lactic acidosis and hypercalcemia. Because of all these the patient will benefit from hospital admission. His brother voiced understanding and is in agreement with plan. I advised that following discharge from the hospital the patient may benefit from halfway placement. His brother thinks the same too. Time: 15:20 Consultations: Consultation #1: Discussed the patient with Dr. Fung, hospitalist and he kindly accepted the patient to his service. Time: 15:26 Vital Signs: Vital signs: Vital Signs Temperature 98.0 F 01/20/21 19:21 Pulse Rate 110 H 01/20/21 21:12 Respiratory Rate 17 01/20/21 21:12 Blood Pressure 167/113 01/20/21 19:21 Pulse Oximetry 96 01/20/21 21:12 MDM - Altered Mental Status MDM Narrative: Medical decision making narrative: 70-year-old male who was found down today by his brother. It is on clear how long he has been down for. He was last seen yesterday at about noon. Patient is confused, and has multiple lab abnormalities including leukocytosis, lactic acidosis, hypercalcemia, dehydration, polycythemia and he is admitted to the hospitalist service for further evaluation and management. Lab Data: Labs: Lab Results 01/20/21 01/20/21 01/20/21 Range/Units 12:56 12:56 12:56 WBC 20.4 H (4.0-10.0) 10^3/ uL RBC 6.79 H (4.1-5.3) 10^6/u L Hgb 21.5 H (11.7-16.6) g/dL Hct 62.0 H (42.0-52.0) % MCV 91.3 (80-94) fL MCH 31.7 (28.0-34.0) pg MCHC 34.7 (30.0-36.0) g/dL RDW 12.2 (12.1-15.1) % Plt Count 199 (130-400) 10^3/c mm MPV 11.8 H (7.4-10.4) fL Neut % (Auto) 88.9 % Lymph % (Auto) 4.6 % [place] % (Auto) 5.4 % Eos % (Auto) 0.0 % Baso % (Auto) 0.3 % Neut # (Auto) 18.15 H (1.8-7.7) 10^3/u L Lymph # (Auto) 0.9 (0.8-4.8) 10^3/u L [place] # (Auto) 1.1 H (0.2-0.9) 10^3/u L Eos # (Auto) 0.0 (0.0-0.8) 10^3/u L Baso # (Auto) 0.1 (0.0-0.1) 10^3/u L Nucleated RBC % (a uto) 0 % Nucleated RBCs # 0.0 /100WBC Sodium Cancelled Potassium Cancelled Chloride Cancelled Carbon Dioxide Cancelled Anion Gap Cancelled BUN Cancelled Creatinine Cancelled GFR Calculation Cancelled Glucose Cancelled Calculated Osmolal ity Cancelled Lactate Cancelled Calcium Cancelled Total Bilirubin Cancelled AST Cancelled ALT Cancelled Alkaline Phosphata se Cancelled Creatine Kinase Cancelled Troponin T Baselin e Troponin T 120 Min [place] Delta Troponin T C-Reactive Protein Cancelled Total Protein Cancelled Albumin Cancelled Globulin Cancelled Lipase Cancelled Urine Color (Yellow) Urine Appearance (CLEAR) Urine pH (5-7) Ur Specific Gravit y (1.005-1.030) Urine Protein (Negative) Urine Glucose (UA) (Normal) Urine Ketones (Negative) Urine Blood (Negative) Urine Nitrate (Negative) Urine Bilirubin (Negative) Urine Urobilinogen (Negative) mg/dL Ur Leukocyte Ibeth ase (Negative) Urine RBC (0-2) /hpf Urine WBC (0-5) /hpf Ur Squamous Epith Cells (0-5) /hpf Amorphous Sediment Urine Bacteria (NONE) /hpf Hyaline Casts /lpf Ur Random Sodium mmol/L Ur Random Potassiu m mmol/L Ur Random Chloride mmol/L Urine Opiates Scre en (Negative) ng/mL Ur Barbiturates Sc reen (Negative) ng/mL Ur Phencyclidine S crn (Negative) ng/mL Ur Amphetamines Sc reen (Negative) ng/mL U Benzodiazepines Scrn (Negative) ng/mL Urine Cocaine Scre en (Negative) ng/mL U Marijuana (THC) Screen (Negative) ng/mL 01/20/21 01/20/21 01/20/21 Range/Units 12:56 13:10 13:10 WBC (4.0-10.0) 10^3/ uL RBC (4.1-5.3) 10^6/u L Hgb (11.7-16.6) g/dL Hct (42.0-52.0) % MCV (80-94) fL MCH (28.0-34.0) pg MCHC (30.0-36.0) g/dL RDW (12.1-15.1) % Plt Count (130-400) 10^3/c mm MPV (7.4-10.4) fL Neut % (Auto) % Lymph % (Auto) % [place] % (Auto) % Eos % (Auto) % Baso % (Auto) % Neut # (Auto) (1.8-7.7) 10^3/u L Lymph # (Auto) (0.8-4.8) 10^3/u L [place] # (Auto) (0.2-0.9) 10^3/u L Eos # (Auto) (0.0-0.8) 10^3/u L Baso # (Auto) (0.0-0.1) 10^3/u L Nucleated RBC % (a uto) % Nucleated RBCs # /100WBC Sodium Potassium Chloride Carbon Dioxide Anion Gap BUN Creatinine GFR Calculation Glucose Calculated Osmolal ity Lactate Calcium Total Bilirubin AST ALT Alkaline Phosphata se Creatine Kinase Troponin T Baselin e Cancelled Troponin T 120 Min [place] Delta Troponin T C-Reactive Protein Total Protein Albumin Globulin Lipase Urine Color Yellow (Yellow) Urine Appearance Hazy A (CLEAR) Urine pH 5 (5-7) Ur Specific Gravit y 1.020 (1.005-1.030) Urine Protein 3+ H (Negative) Urine Glucose (UA) 4+ H (Normal) Urine Ketones 1+ H (Negative) Urine Blood 3+ H (Negative) Urine Nitrate Negative (Negative) Urine Bilirubin Neg (Negative) Urine Urobilinogen Norm (Negative) mg/dL Ur Leukocyte Ibeth ase Negative (Negative) Urine RBC 5-10 H (0-2) /hpf Urine WBC 0-4 H (0-5) /hpf Ur Squamous Epith Cells 10-15 H (0-5) /hpf Amorphous Sediment Not Reportable Urine Bacteria 2+ H (NONE) /hpf Hyaline Casts 5-10 H /lpf Ur Random Sodium > 10 mmol/L Ur Random Potassiu m 55 mmol/L Ur Random Chloride 13 mmol/L Urine Opiates Scre en Negative (Negative) ng/mL Ur Barbiturates Sc reen Negative (Negative) ng/mL Ur Phencyclidine S crn Negative (Negative) ng/mL Ur Amphetamines Sc reen Negative (Negative) ng/mL U Benzodiazepines Scrn Negative (Negative) ng/mL Urine Cocaine Scre en Negative (Negative) ng/mL U Marijuana (THC) Screen Negative (Negative) ng/mL 01/20/21 01/20/21 01/20/21 Range/Units 13:31 13:31 13:31 WBC (4.0-10.0) 10^3/ uL RBC (4.1-5.3) 10^6/u L Hgb (11.7-16.6) g/dL Hct (42.0-52.0) % MCV (80-94) fL MCH (28.0-34.0) pg MCHC (30.0-36.0) g/dL RDW (12.1-15.1) % Plt Count (130-400) 10^3/c mm MPV (7.4-10.4) fL Neut % (Auto) % Lymph % (Auto) % [place] % (Auto) % Eos % (Auto) % Baso % (Auto) % Neut # (Auto) (1.8-7.7) 10^3/u L Lymph # (Auto) (0.8-4.8) 10^3/u L [place] # (Auto) (0.2-0.9) 10^3/u L Eos # (Auto) (0.0-0.8) 10^3/u L Baso # (Auto) (0.0-0.1) 10^3/u L Nucleated RBC % (a uto) % Nucleated RBCs # /100WBC Sodium 132 L Potassium 4.3 Chloride 92 L Carbon Dioxide 25 Anion Gap 19.3 H BUN 46 H Creatinine 1.9 H GFR Calculation 35.4 L Glucose 418 H Calculated Osmolal ity 304 H Lactate 3.3 H Calcium 12.9 H Total Bilirubin 1.6 H AST 30 ALT 24 Alkaline Phosphata se 89 Creatine Kinase 358 H* Troponin T Baselin e 43 H Troponin T 120 Min [place] Delta Troponin T C-Reactive Protein 29.5 H Total Protein 7.4 Albumin 3.3 L Globulin 4.1 Lipase 33 Urine Color (Yellow) Urine Appearance (CLEAR) Urine pH (5-7) Ur Specific Gravit y (1.005-1.030) Urine Protein (Negative) Urine Glucose (UA) (Normal) Urine Ketones (Negative) Urine Blood (Negative) Urine Nitrate (Negative) Urine Bilirubin (Negative) Urine Urobilinogen (Negative) mg/dL Ur Leukocyte Ibeth ase (Negative) Urine RBC (0-2) /hpf Urine WBC (0-5) /hpf Ur Squamous Epith Cells (0-5) /hpf Amorphous Sediment Urine Bacteria (NONE) /hpf Hyaline Casts /lpf Ur Random Sodium mmol/L Ur Random Potassiu m mmol/L Ur Random Chloride mmol/L Urine Opiates Scre en (Negative) ng/mL Ur Barbiturates Sc reen (Negative) ng/mL Ur Phencyclidine S crn (Negative) ng/mL Ur Amphetamines Sc reen (Negative) ng/mL U Benzodiazepines Scrn (Negative) ng/mL Urine Cocaine Scre en (Negative) ng/mL U Marijuana (THC) Screen (Negative) ng/mL 01/20/21 Range/Units 15:15 WBC (4.0-10.0) 10^3/ uL RBC (4.1-5.3) 10^6/u L Hgb (11.7-16.6) g/dL Hct (42.0-52.0) % MCV (80-94) fL MCH (28.0-34.0) pg MCHC (30.0-36.0) g/dL RDW (12.1-15.1) % Plt Count (130-400) 10^3/c mm MPV (7.4-10.4) fL Neut % (Auto) % Lymph % (Auto) % [place] % (Auto) % Eos % (Auto) % Baso % (Auto) % Neut # (Auto) (1.8-7.7) 10^3/u L Lymph # (Auto) (0.8-4.8) 10^3/u L [place] # (Auto) (0.2-0.9) 10^3/u L Eos # (Auto) (0.0-0.8) 10^3/u L Baso # (Auto) (0.0-0.1) 10^3/u L Nucleated RBC % (a uto) % Nucleated RBCs # /100WBC Sodium Potassium Chloride Carbon Dioxide Anion Gap BUN Creatinine GFR Calculation Glucose Calculated Osmolal ity Lactate Calcium Total Bilirubin AST ALT Alkaline Phosphata se Creatine Kinase Troponin T Baselin e Troponin T 120 Min [place] Cancelled Delta Troponin T Cancelled C-Reactive Protein Total Protein Albumin Globulin Lipase Urine Color (Yellow) Urine Appearance (CLEAR) Urine pH (5-7) Ur Specific Gravit y (1.005-1.030) Urine Protein (Negative) Urine Glucose (UA) (Normal) Urine Ketones (Negative) Urine Blood (Negative) Urine Nitrate (Negative) Urine Bilirubin (Negative) Urine Urobilinogen (Negative) mg/dL Ur Leukocyte Ibeth ase (Negative) Urine RBC (0-2) /hpf Urine WBC (0-5) /hpf Ur Squamous Epith Cells (0-5) /hpf Amorphous Sediment Urine Bacteria (NONE) /hpf Hyaline Casts /lpf Ur Random Sodium mmol/L Ur Random Potassiu m mmol/L Ur Random Chloride mmol/L Urine Opiates Scre en (Negative) ng/mL Ur Barbiturates Sc reen (Negative) ng/mL Ur Phencyclidine S crn (Negative) ng/mL Ur Amphetamines Sc reen (Negative) ng/mL U Benzodiazepines Scrn (Negative) ng/mL Urine Cocaine Scre en (Negative) ng/mL U Marijuana (THC) Screen (Negative) ng/mL Imaging Data^: CXR: Attestation: I personally reviewed and interpreted this imaging study as follows: Radiologist's impression: [facility] [place]undo[place], [place] [address]YBgi ReportSigned Patient: Luis Mcintosh #: [id number]: 1950cct#:[id number]/Sex: 70 / MADM Date: 01/20/21Loc: ERRoom/Bed:Attending Dr: Ordering Provider/Ordering MD: Sepideh Goddard MD, [facility] Date of Service: 01/20/21 Procedure(s): XR chest 1V portable [id number] Accession Number(s): [id number] Report Number: [id number] WS: [id number] Exam: XR chest 1V portable [id number] Date/Time of Exam: 01/20/2021 12:49 PM Reason For Exam: AMS Comparison 05/07/2019. Findings: The lungs are clear and fully expanded. Costophrenic angles are sharp. No infiltrates. Bronchovascular relief appears normal. Cardiac silhouette is unremarkable. Bony elements are intact. XR/XR chest 1V portable [id number] IMPRESSION: Unremarkable chest radiograph. Dictated By:Lucien Sarmiento, LONGigned By:Lucien Sarmiento, Francisca Date/Time:01/20/21 1355DD/ 1355 CT Head: Attestation: I personally reviewed and interpreted this imaging study as follows: Radiologist's impression: Katarina [address]undo[address], [place] [address]QJ Scan ReportSigned Patient: Luis Mcintosh #: [id number]: 1950cct#:[id number]/Sex: 70 / MADM Date: 01/20/21Loc: ERRoom/Bed:Attending Dr: Ordering Provider/Ordering MD: Sepideh Goddard MD, [facility] Date of Service: 01/20/21 Procedure(s): CT head wo con* [id number] Accession Number(s): [id number] Report Number: [id number] WS: [id number] CT HEAD TECHNIQUE: Noncontrast CT of the head obtained from the skullbase to the vertex. CLINICAL INFORMATION: AMS, fall COMPARISON: MRI April 07, [address] 2018 DLP: 1010.[address] scans at [facility] use at least one of these dose optimization techniques: automated exposure control; mA and/or kV adjustment per patient size (includes targeted exams where dose is matched to clinical indication); or iterative reconstruction. FINDINGS: No evidence of intracranial hemorrhage or mass effect. Ventricular system and basal cisterns are patent. Moderate small vessel changes with moderate parenchymal volume loss. Chronic infarct right parietal and occipital lobes with encephalomalacia. Chronic infarct right posterior temporal lobe. Chronic lacunar infarcts in the cerebellum bilaterally. Chronic lacunar infarct left thalamus. Intracranial vascular calcification. Incidental arachnoid cyst left middle cranial fossa. Paranasal sinuses and mastoid air cells are well aerated. .Normal visualized soft tissues. CT/CT head wo con* [id number] IMPRESSION: 1. No evidence of intracranial hemorrhage or mass effect. 2. Moderate small vessel changes with moderate parenchymal volume loss. 3. Chronic infarct with encephalomalacia unchanged from the prior MRI. 4. Chronic lacunar infarcts in the left thalamus and cerebellum bilaterally. 5. No acute intracranial findings and no significant interval changes.. Dictated By:Jamarcus Pulido MDSigned By:Jamarcus Pulido MDSigned Date/Time:01/20/21 1325DD/ 1317 EKG Data^: EKG 1: Attestation: I personally reviewed and interpreted this EKG as follows: EKG interpretation date: 01/20/21 EKG interpretation time: 12:58 Prior EKG tracings: not available for review Interpretation: Atrial fibrillation with RVR. Heart rate 105 bpm. Left anterior fascicular block. No ST changes. EKG 2: Attestation: I personally reviewed and interpreted this EKG as follows: EKG interpretation date: 01/20/21 EKG interpretation time: 14:39 Prior EKG tracings: available for review Interpretation: Atrial fibrillation with RVR. Heart rate 149 bpm. Left anterior fascicular block. No ST changes. Other than increased rate no significant change from earlier Critical Care Time Critical Care Time: Critical Care Time: Yes Total Critical Care Time: 60 Attestation: This case had a high probability of a clinically significant, sudden, or life threatening deterioration of this patient's condition which required my full and direct attention, intervention and personal management. Discharge Plan Discharge Patient Disposition: Admitted As Inpatient Admit Provider: Issa Porter Clinical Impression: Metabolic encephalopathy, Rhabdomyolysis, Atrial fibrillation with rapid ventricular response, Lactic acidosis, Acute dehydration, Polycythemia, Hypercalcemia Condition: Stable Coding Level of Care Code ED Electric Vehicle Electrician for Sergio Dahl
[2021-01-21] VITALS (13 sets, daily range): BP systolic 109–144; BP diastolic 69–87; PULSE 83–101; RESP 13–21; TEMP 36.1–37.1; O2SAT 92–99
--- NOTE | 2021-01-21 02:03 | PC.NURSE ---
Patient is resting in bed. He awakens to my voice. Patient shakes his head no when I ask him if he is in pain and shakes his head yes when I ask him if he wants a drink. Cath care and ximena care done at this time. Patient shakes his head no when I ask him if he needs anything else. Nurse will continue to monitor.
[2021-01-21 05:08] LABS: Glucose Point of Care 172 mg/dL (70-110)
[2021-01-21] MEDS: sodium chloride 0.9% 1,000 ML 75 ML IV ×2 (05:15→20:15)
[2021-01-21] MEDS: famotidine 20 mg/2 mL INJ IVP ×2 (05:15→16:31)
[2021-01-21 05:17] LABS: Basophils # 0.1 10^3/uL (0.0-0.1); Basophils % 0.3 %; Eosinophils # 0.1 10^3/uL (0.0-0.8); Eosinophils % 0.4 %; Hematocrit 56.7 % (42.0-52.0); Hemoglobin 19.1 g/dL (11.7-16.6); Lymphocytes # 1.3 10^3/uL (0.8-4.8); Lymphocytes % 7.9 %; Mean Corpuscular HGB Conc 33.7 g/dL (30.0-36.0); Mean Corpuscular Hemoglobin 31.7 pg (28.0-34.0); Mean Corpuscular Volume 94.2 fL (80-94); Mean Platelet Volume 10.2 fL (7.4-10.4); Monocytes # 1.2 10^3/uL (0.2-0.9); Monocytes % 7.4 %; Neutrophils # 13.41 10^3/uL (1.8-7.7); Neutrophils % 83.5 %; Nucleated Red Blood Cells % 0 %; Platelet Count 197 10^3/cmm (130-400); Red Blood Count 6.02 10^6/uL (4.1-5.3); Red Cell Distribution Width 12.6 % (12.1-15.1)
[2021-01-21 05:30] LABS: INR 1.17 (0.8-1.2)
[2021-01-21 05:37] LABS: Estmated Average Glucose 194; Hemoglobin A1C 8.4 % (4.0-6.0); Lactic Sepsis W/Reflex 1.8 mmol/L (0.5-2.2)
[2021-01-21 05:40] LABS: Alanine Aminotransferase 17 U/L (0-41); Albumin Level 2.9 g/dL (3.5-5.2); Alkaline Phosphatase 79 IU/L (40-130); Anion Gap 15.9 (5-19); Aspartate Amino Transferase 20 U/L (0-40); Blood Urea Nitrogen 48 mg/dL (8-23); Calcium 10.8 mg/dL (8.5-10.5); Carbon Dioxide 27 mmol/L (22-29); Chloride 104 mmol/L (98-107); Globulin 3.4 g/dL (1.3-4.6); Glomerular Filtration Rate 37.7 mL/min (90-130); Glucose 170 mg/dL (65-115); Magnesium 1.9 mg/dL (1.7-2.3); Osmolality Calculated 313 mOsm/kg (285-295); Phosphorus 2.6 mg/dL (2.5-4.5); Potassium 3.9 mmol/L (3.5-5.1); Sodium 143 mmol/L (136-145); Total Bilirubin 0.8 mg/dL (0.15-1.2); Total Protein 6.3 g/dL (6.6-8.7)
[2021-01-21 05:43] LABS: Creatine Phosphokinase 68 U/L (39-308)
--- NOTE | 2021-01-21 06:00 | USCV_ITS ---
Luis Mcintosh Age: 70 Gender: M : 1950 Exam Date: 01/21/2021 06:34 Ordering Phys: Issa Porter MD Technologist: Exam Location: [facility] [place] Indication: RULE OUT DVT FOUND ON FLOOR HISTORY: Ulcers. PROCEDURES: The venous duplex Doppler examination of both lower extremities was performed in the standard fashion. The following venous structures were evaluated: common femoral vein, profunda vein, proximal portion of the greater saphenous vein, superficial femoral vein, and the popliteal vein. Bilaterally, the common femoral, superficial femoral, profunda femoral, popliteal, posterior tibial, greater saphenous veins, and the peroneal trunk were identified and interrogated in the standard fashion. These veins were found to be easily compressible with spontaneous blood flow. No evidence of insufficiency or thrombus noted. FINDINGS: Normal 2-D Doppler and augmentation and compressibility throughout the lower extremity venous structures. Additional imaging through the proximal calf veins also reveals no thrombus. Limited evaluation of the greater saphenous vein is patent with no thrombus.. CONCLUSIONS 1. No evidence of DVT in the above-mentioned identifiable veins. 2. No evidence of any superficial vein thrombosis in the tested segments of the greater saphenous vein, as mentioned above Dr Sammie Mcgraw MD [facility] (Electronically Signed) Final Date: 21 January 2021 11:58 S
--- NOTE | 2021-01-21 06:00 | USCV_ITS ---
Luis Mcintosh Age: 70 Gender: M : 1950 Exam Date: 01/21/2021 06:22 Ordering Phys: Issa Porter MD Technologist: Exam Location[place] [facility] [place]ication: AFIB BP: 151 / 78 HR: 93 Rhythm: Sinus Technical Quality: Adequate MEASUREMENTS (Male / Female) Normal Values 2D ECHO LV Diastolic Diameter PLAX 2.8 cm 4.2 - 5.9 / 3.9 - 5.3 cm LV Systolic Diameter PLAX 2.1 cm IVS Diastolic Thickness 1.1 cm 0.6 - 1.0 / 0.6 - 0.9 cm IVS Systolic Thickness 1.7 cm LVPW Diastolic Thickness 1.2 cm 0.6 - 1.0 / 0.6 - 0.9 cm LVPW Systolic Thickness 1.3 cm LVOT Diameter 2.0 cm LV Ejection Fraction 2D Teich 52.5 % LV Ejection Fraction MOD 2C 62.1 % LV Ejection Fraction 2C AL 62.1 % LA Diameter 3.9 cm LA Width 5.6 cm LA Height 5.9 cm RA Width 4.6 cm RA Height 6.0 cm Aorta at Sinotubular Diameter 2.6 cm DOPPLER AV Peak Velocity 144.0 cm/s LVOT Peak Velocity 126.0 cm/s AV Area Cont Eq vti 2.8 cm squared AV Area Cont Eq pk 2.8 cm squared MV Area PHT 5.0 cm squared Mitral E to A Ratio 2.7 MV E' Velocity 53.0 cm/s Mitral E to MV E' Ratio 24.1 Mitral E to LV E' Lateral Ratio 19.9 Mitral E to LV E' Septal Ratio 30.7 TR Peak Velocity 170.0 cm/s TR Peak Gradient 11.6 mmHg TV Peak E Velocity 85.0 cm/s Right Atrial Pressure 3.0 mmHg Pulmonary Artery Systolic Pressu 14.6 mmHg FINDINGS Left Ventricle Normal left ventricular size and systolic function, EF 59 %. Mild left ventricular hypertrophy. Grade I/IV diastolic dysfunction (abnormal relaxation filling pattern), normal to mildly elevated filling pressures. Right Ventricle The right ventricle is normal in size and function. Right Atrium The right atrium is normal in size. Left Atrium Mildly increased left atrial size. Mitral Valve Moderate mitral annular calcification. Aortic Valve Thickened aortic valve. Tricuspid Valve No gross abnormalities . Trace of tricuspid regurgitation Pulmonic Valve Structurally normal pulmonic valve without significant stenosis. There is no pulmonic regurgitation. Estimated pulmonary artery peak systolic pressure of 15 mm of medical Pericardium No pericardial effusion. Aorta Normal ascending aorta dimension. CONCLUSIONS Normal left ventricular size and systolic function, EF 59 %. Mild left ventricular hypertrophy. Grade I/IV diastolic dysfunction (abnormal relaxation filling pattern), normal to mildly elevated filling pressures. Trace of tricuspid regurgitation Normal estimated pulmonary artery peak systolic pressure of 15 mmHg Moderate mitral annular calcification. Mildly increased left atrial size. There is no pericardial effusion. There are no intracardiac masses. Compared to the previous study from 05/08/2019, there may not be a significant change Dr Sammie Mcgraw MD [facility] (Electronically Signed) Final Date: 21 January 2021 11:20 S
--- NOTE | 2021-01-21 07:03 | PC.NURSE ---
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 right hand hot frame tender-squeezed my fingers. left hand, no hot frame tender. Pt asked if he has any pain, he shook his head. asked when is his birthday, he only mumbles then fall back to sleep. cardizem drip running on right hand, patent and intact. Bed alarm reset. HOB elevated to 45 degress for aspiration precaution.
[2021-01-21] MEDS: hyDRALAzine 50 mg Tablet 100 MG PO ×3 (10:10→20:13)
[2021-01-21] MEDS: insulin glargine 100 units/1 mL 30 UNIT SUBCUT ×2 (10:10→20:15)
[2021-01-21] MEDS: cloNIDine 0.1 mg Tablet PO ×3 (10:11→20:14)
[2021-01-21] MEDS: dilTIAZem 60 mg Tablet PO ×3 (10:11→22:24)
[2021-01-21] MEDS: gabapentin 300 mg Capsule PO ×3 (10:11→20:14)
[2021-01-21] MEDS: ferrous gluconate 324 mg Tablet PO ×2 (10:12→17:01)
--- NOTE | 2021-01-21 10:38 | P.PN_ITS ---
Subjective Subjective: Interval history: NO acute events overnight. On cardizem drip of 10. Titrating from 15. Overnight HR in 80s to 90s. BP better. Worked some with PT. More alert today but still drowsy. Alert to self, place, knows his but confused for YOB. Vitals/I&O/Wt Last Vital Signs Temp 97.9 F 01/21/21 08:00 Pulse 90 01/21/21 09:50 Resp 18 01/21/21 09:50 BP 142/73 01/21/21 08:00 Pulse Ox 94 01/21/21 09:50 01/20/21 01/21/21 01/21/21 22:59 06:59 14:59 Intake Total 1304.334 / 5250.596 0211.5 / 2398.834 125 / 125 Output Total 400 / 400 Balance 1304.334 / 5180.583 2937.5 / 2398.834 -275 / -275 Weight last 48 hrs Weight 93.576 kg Weight 95.254 kg Physical Exam Narrative: EXAM NARRATIVE: General: No acute distress,AAOx2, following simple commands, drowsy and sleepy HEENT: PERRLA, pupils bilaterally equal and reactive Chest: Normal vesicular breath sounds, no added sounds, equal good air entry bilaterally CVS: S1-S2 irregularly irregular, tachycardia no gallops, no rubs Abdomen: Soft, nontender, no organomegaly, bowel sounds present Neuro: No focal deficits, mild facial deformity, as per brother at baseline, moving all 4 limbs, power 5 x 5 in all limbs. Extremities: Bilateral lower limbs showing chronic vascular changes without edema. Urinary Catheter Management^: Regan: Cath Placed During This Visit: yes Reason for Continuing Indwelling Catheter: Acute Urinary Retention or Obstruction Urinary Catheter Date of Insertion: 01/20/21 Urinary Catheter Time of Insertion: 14:01 Data : 01/21/21 05:00 01/21/21 05:00 Other Labs: Laboratory Results WBC 16.0 10^3/uL (4.0-10.0) H 01/21/21 05:00 RBC 6.02 10^6/uL (4.1-5.3) H 01/21/21 05:00 Hgb 19.1 g/dL (11.7-16.6) H 01/21/21 05:00 Hct 56.7 % (42.0-52.0) H 01/21/21 05:00 MCV 94.2 fL (80-94) H 01/21/21 05:00 MCH 31.7 pg (28.0-34.0) 01/21/21 05:00 MCHC 33.7 g/dL (30.0-36.0) 01/21/21 05:00 RDW 12.6 % (12.1-15.1) 01/21/21 05:00 Plt Count 197 10^3/cmm (130-400) 01/21/21 05:00 MPV 10.2 fL (7.4-10.4) 01/21/21 05:00 Neut % (Auto) 83.5 % 01/21/21 05:00 Lymph % (Auto) 7.9 % 01/21/21 05:00 [place] % (Auto) 7.4 % 01/21/21 05:00 Eos % (Auto) 0.4 % 01/21/21 05:00 Baso % (Auto) 0.3 % 01/21/21 05:00 Neut # (Auto) 13.41 10^3/uL (1.8-7.7) H 01/21/21 05:00 Lymph # (Auto) 1.3 10^3/uL (0.8-4.8) 01/21/21 05:00 [place] # (Auto) 1.2 10^3/uL (0.2-0.9) H 01/21/21 05:00 Eos # (Auto) 0.1 10^3/uL (0.0-0.8) 01/21/21 05:00 Baso # (Auto) 0.1 10^3/uL (0.0-0.1) 01/21/21 05:00 Nucleated RBC % (auto) 0 % 01/21/21 05:00 Nucleated RBCs # 0.0 /100WBC 01/21/21 05:00 PT 15.20 SECONDS (12.1-14.9) H 01/21/21 05:00 INR 1.17 (0.8-1.2) 01/21/21 05:00 D-Dimer 1.82 ug/mIFEU (0-0.59) H 01/20/21 16:58 Sodium 143 mmol/L (136-145) 01/21/21 05:00 Potassium 3.9 mmol/L (3.5-5.1) 01/21/21 05:00 Chloride 104 mmol/L (98-107) 01/21/21 05:00 Carbon Dioxide 27 mmol/L (22-29) 01/21/21 05:00 Anion Gap 15.9 (5-19) 01/21/21 05:00 BUN 48 mg/dL (8-23) H 01/21/21 05:00 Creatinine 1.8 mg/dL (0.7-1.2) H 01/21/21 05:00 GFR Calculation 37.7 mL/min (90-130) L 01/21/21 05:00 Glucose 170 mg/dL (65-115) H 01/21/21 05:00 POC Glucose 176 mg/dL (70-110) H 01/21/21 11:12 Estimat Average Glucose 194 01/21/21 05:00 Hemoglobin A1c 8.4 % (4.0-6.0) H 01/21/21 05:00 Calculated Osmolality 313 mOsm/kg (285-295) H 01/21/21 05:00 Lactic Acid 1.8 mmol/L (0.5-2.2) 01/21/21 05:00 Lactic Acid (Sepsis) 2.2 mmol/L (0.5-2.2) 01/20/21 16:58 Lactate 3.3 mmol/L (0.5-2.2) H 01/20/21 13:31 Calcium 10.8 mg/dL (8.5-10.5) H 01/21/21 05:00 Phosphorus 2.6 mg/dL (2.5-4.5) 01/21/21 05:00 Magnesium 1.9 mg/dL (1.7-2.3) 01/21/21 05:00 Iron 66 ug/dL (59-158) 01/20/21 16:58 TIBC 228 mcg/dl 01/20/21 16:58 % Saturation 28.9 % (20-50) 01/20/21 16:58 Unsat Iron Binding 162 ug/dL (112-347) 01/20/21 16:58 Total Bilirubin 0.8 mg/dL (0.15-1.2) 01/21/21 05:00 AST 20 U/L (0-40) 01/21/21 05:00 ALT 17 U/L (0-41) 01/21/21 05:00 Alkaline Phosphatase 79 IU/L (40-130) 01/21/21 05:00 Creatine Kinase 68 U/L (39-308) 01/21/21 05:00 Troponin T Baseline 43 ng/L (0-15) H 01/20/21 13:31 Troponin T 120 Minute 40.52 ng/L (0-15) H 01/20/21 16:58 Delta Troponin T -2.48 ABS# (0-10) L 01/20/21 16:58 Troponin T Hi Sens 6Hr 40.46 ng/L (0-15) H 01/20/21 19:10 Troponin T Hi Sens 6Hr Delta -2.54 ng/L (0-12) L 01/20/21 19:10 C-Reactive Protein 29.5 mg/L (0.0-4.9) H 01/20/21 13:31 NT-Pro-B Natriuret Pep 2026 pg/mL (0-125) H 01/20/21 16:58 Total Protein 6.3 g/dL (6.6-8.7) L 01/21/21 05:00 Albumin 2.9 g/dL (3.5-5.2) L 01/21/21 05:00 Globulin 3.4 g/dL (1.3-4.6) 01/21/21 05:00 Lipase 33 U/L (13-60) 01/20/21 13:31 Procalcitonin 0.09 ng/mL (0-0.5) 01/21/21 05:00 TSH 0.53 uIU/mL (0.27-4.20) 01/20/21 16:58 Urine Color Yellow (Yellow) 01/20/21 13:10 Urine Appearance Hazy (CLEAR) A 01/20/21 13:10 Urine pH 5 (5-7) 01/20/21 13:10 Ur Specific [place] 1.020 (1.005-1.030) 01/20/21 13:10 Urine Protein 3+ (Negative) H 01/20/21 13:10 Urine Glucose (UA) 4+ (Normal) H 01/20/21 13:10 Urine Ketones 1+ (Negative) H 01/20/21 13:10 Urine Blood 3+ (Negative) H 01/20/21 13:10 Urine Nitrate Negative (Negative) 01/20/21 13:10 Urine Bilirubin Neg (Negative) 01/20/21 13:10 Urine Urobilinogen Norm mg/dL (Negative) 01/20/21 13:10 Ur Leukocyte Esterase Negative (Negative) 01/20/21 13:10 Urine RBC 5-10 /hpf (0-2) H 01/20/21 13:10 Urine WBC 0-4 /hpf (0-5) H 01/20/21 13:10 Ur Squamous Epith Cells 10-15 /hpf (0-5) H 01/20/21 13:10 Amorphous Sediment Not Reportable 01/20/21 13:10 Urine Bacteria 2+ /hpf (NONE) H 01/20/21 13:10 Hyaline Casts 5-10 /lpf H 01/20/21 13:10 Ur Random Sodium > 10 mmol/L 01/20/21 13:10 Ur Random Potassium 55 mmol/L 01/20/21 13:10 Ur Random Chloride 13 mmol/L 01/20/21 13:10 Salicylates < 0.3 mg/dL (3-10) L 01/20/21 16:58 Urine Opiates Screen Negative ng/mL (Negative) 01/20/21 13:10 Acetaminophen < 5.0 ug/mL (10-30) L 01/20/21 16:58 Ur Barbiturates Screen Negative ng/mL (Negative) 01/20/21 13:10 Ur Phencyclidine Scrn Negative ng/mL (Negative) 01/20/21 13:10 Ur Amphetamines Screen Negative ng/mL (Negative) 01/20/21 13:10 U Benzodiazepines Scrn Negative ng/mL (Negative) 01/20/21 13:10 Urine Cocaine Screen Negative ng/mL (Negative) 01/20/21 13:10 U Marijuana (THC) Screen Negative ng/mL (Negative) 01/20/21 13:10 Ethyl Alcohol < 10 mg/dL (0-10) 01/20/21 16:58 Influenza Type A Ag Negative (Negative) 01/20/21 18:15 Influenza Type B Ag Negative (Negative) 01/20/21 18:15 Impressions Chest X-Ray 01/20/21 12:49 IMPRESSION: Unremarkable chest radiograph. Head CT 01/20/21 12:49 IMPRESSION: 1. No evidence of intracranial hemorrhage or mass effect. 2. Moderate small vessel changes with moderate parenchymal volume loss. 3. Chronic infarct with encephalomalacia unchanged from the prior MRI. 4. Chronic lacunar infarcts in the left thalamus and cerebellum bilaterally. 5. No acute intracranial findings and no significant interval changes.. Chest CT 01/20/21 15:57 IMPRESSION: 1. Bibasilar atelectasis versus minimal infiltrate. 2. Right lower lobe calcified benign granuloma. 3. Cardiomegaly. 4. Coronary artery atherosclerotic calcifications. 5. Right hepatic lobe cyst. 6. Cholelithiasis. 7. Left kidney cyst, negative for follow up. COMMENTS: Consistent with the [employer]'s Incidental Findings Committee white paper (J Am Natali Radiol 2018): Any incidental renal lesion less than 1 cm or classified as too small to characterize, or any incidental cystic renal lesion characterized as simple-appearing, is likely benign. No follow-up imaging is recommended for these lesions per consensus recommendations based on imaging criteria. Radiation Dose CTDIVOL = (mGy): DLP = 1086.3 (mGy-cm) Micro: Microbiology 01/20/21 18:15 MRSA Culture - Final Nose 01/20/21 13:10 Bacterial Antigens - Final Urine Kidney 01/20/21 13:10 Legionella Urinary Antigen - Final Urine Catheterized 01/20/21 16:58 Blood Culture - Preliminary Blood SPECIMEN COLLECTED 01/20/21 17:01 Blood Culture - Preliminary Blood SPECIMEN COLLECTED A&P Assessment and plan (1) Metabolic encephalopathy: Status: Acute (2) Altered mental status: Status: Acute (3) Atrial fibrillation with rapid ventricular response: Status: Acute (4) Subtherapeutic anticoagulation: Status: Acute (5) CKD (chronic kidney disease): Status: Chronic (6) Poorly controlled type 2 diabetes mellitus: Status: Chronic (7) CVA (cerebral vascular accident): Status: Acute (8) Dyslipidemia: Status: Chronic (9) HTN (hypertension): Status: Chronic (10) Lactic acidosis: Resolved Status: Acute (11) Hyponatremia: Resolved Status: Acute (12) Rhabdomyolysis: Resolved Status: Acute Qualifiers: Encounter type: initial encounter Rhabdomyolysis type: traumatic Qualified Code(s): T79.6XXA - Traumatic ischemia of muscle, initial encounter (13) Chronic anticoagulation: Status: Acute Additional A&P Information 70-year-old male with past medical history of multiple CVA, atrial fibrillation, dyslipidemia, uncontrolled hypertension and uncontrolled diabetes mellitus who used to live with his mother who unfortunately 4 days ago presented to the hospital via EMS and confused state. Altered mental status: Could be multifactorial. Most likely metabolic e ncephalopathy because of sepsis, dehydration, uncontrolled elevated blood sugars. Can not r/o seizure or another CVA as he continues to be drowsy. Sepsis ruled in because of tachycardia, leukocytosis, endorgan damage, elevated lactate, confusion. Blood culture, urine culture, sputum culture pending. MRSA swab, procalcitonin, urine Legionella, bacterial antigen, alcohol level, salicylate level, flu swab- NEGATIVE. Urinalysis negative for signs of infection, patient saturating well on room air. Unclear source of sepsis for now. For now C/w imipenem 500 every 8 hourly as per creatinine clearance. Will reassess antibiotics as per culture results. Normal saline at 75 cc/h. Monitor for fluid overload. Will get MRI and MRA without contrast to r/o new stroke due to h/o strokes in past. Echocardiogram s/o EF -59%, Grade 1DD, increase size of LA. Atrial fibrillation with rapid ventricular response: Most likely secondary to noncompliance of medications. Titrate Cardizem drip off. Cardizem 60 daily 6 hourly. Subtherpeutic INR: Takes Coumadin 5 and 7.5 mg on alternate days with 7.5 mg on Sunday as well for now. Increase Coumadin to 7.5 mg daily for now. Check daily INR. Daily weights. Strict input output charting. Regan catheterization for now. CKD: Baseline creatinine 1.8-1.9. Creatinine at baseline. Continue to monitor. Medical reconciliation done for nephrotoxic drugs. Hold home dose of lisinopril for now. No acidosis at present. Patient does have elevated BUN and pseudohyponatremia. Type 2 diabetes mellitus: Uncontrolled: A1c- 8.4 Takes 51 units Lantus twice daily. For now start him on 30 units twice daily. Will increase as per the insulin in next 24 hrs For sliding scale at high-dose protocol every 6 hourly. Hypertension: Goal blood pressure less than 140/90 mmHg. Patient takes clonidine 0.3 3 times daily, hydralazine 100 3 times daily, lisinopril 20, oral Cardizem. For now continue home dose of hydralazine, decrease clonidine to 0.1 3 times daily. Stop lisinopril. We will uptitrate medications accordingly. Poycythemia History of CVA. Dyslipidemia History of DVT. Carb consistent GI soft diet Warfarin will help with DVT prophylaxis as well. Famotidine for PUD prophylaxis. CODE STATUS: As per patient's brother who will be his DPOA when patient is not able to make his own medical decisions for now the patient will be full code. Discharge planning: As per the brother mother used to take care of his medications and in the past patient has had tendency of not taking his medications appropriately causing him to have frequent admissions and a stroke. PT/OT evaluation. Most likely patient would need home health vs SNF on discharge. Discussed patient care plan at bedside with brother. All the questions were answered. Attestations Medical Necessity Statement*: Requires further hospitalisation for metabolic encephalopathy Time Spent in Patient Care: Greater than 35 minutes (>than 50% of time spent in counselling and/or direct pt care on unit) . Coding Level of Care Code Acute Business Office Manager for [facility] Fwd Diagnoses Metabolic encephalopathy G93.41 Altered mental status R41.82 Atrial fibrillation with rapid ventricular response I48.91 Subtherapeutic anticoagulation Z51.81; Z79.01 CKD (chronic kidney disease) N18.9 Poorly controlled type 2 diabetes mellitus E11.65 CVA (cerebral vascular accident) I63.9 Dyslipidemia E78.5 HTN (hypertension) I10 Lactic acidosis E87.2 Hyponatremia E87.1 Rhabdomyolysis T79.6XXA Encounter type: initial encounter Rhabdomyolysis type: traumatic Chronic anticoagulation Z79.01
[2021-01-21 11:11] LABS: Procalcitonin 0.09 ng/mL (0-0.5)
[2021-01-21 11:16] LABS: Glucose Point of Care 176 mg/dL (70-110)
--- NOTE | 2021-01-21 11:26 | MR_ITS ---
WS: [id number] MRI HEAD WITHOUT CONTRAST TECHNIQUE: Sagittal T1, T2 axial, T2 axial FLAIR, axial and coronal T1 images, axial susceptibility w eighted imaging, axial diffusion weighted images, and coronal T2 images were obtained. CLINICAL INFORMATION: stroke, confusion COMPARISON: MRI April 07, 2020 FINDINGS: Exam somewhat limited by patient motion. No evidence of restricted diffusion to suggest acute ischemia. Ventricular system and basal cisterns are patent. Chronic infarcts in the right frontal parietal junction, right parietal lobe, and right t emporal lobes with encephalomalacia and gliosis. Ex vacuo dilatation right lateral ventricle. Chronic lacunar infarcts in the cerebellum bilaterally. Small vessel changes in the darshana. Normal vascular fl ow voids at the skull base. No extra axial fluid collections. Stable focus of hemosiderin in the darshana . Chronic hemosiderin about the right frontoparietal and temporal infarct. Chronic lacunar infarct in t he left thalamus. Normal optic chiasm and pituitary infundibulum. Moderate atrophy right temporal lob e hippocampal formation. Small incidental left middle cranial fossa arachnoid cyst measuring 3.1 x 1. 1 cm MR/MR head wo con* [id number] IMPRESSION: Images moderately degraded by motion. 1. No evidence of restricted diffusion to suggest acute ischemia. 2. Chronic infarct infarcts right frontoparietal and posterior temporal lobe wi th encephalomalacia. Ex vacuo dilatation posterior horn right lateral ventricle . 3. Chronic lacunar infarcts in the cerebellum bilaterally and left thalamus. 4. Focus of hemosiderin in the darshana unchanged 5. Moderate small vessel changes with moderate parenchymal volume loss. 6. No significant interval changes since the prior MRI April 07, 2020
--- NOTE | 2021-01-21 11:28 | MR_ITS ---
WS: [id number] MRA HEAD TECHNIQUE: Axial 3-D TOF images obtained with axial images and axial, sagittal, and coronal 2-D refor matted images. CLINICAL INFORMATION: stroke COMPARISON: April 07, 2020 FINDINGS: Images somewhat limited by patient motion. Distal vertebral arteries are patent. Basilar artery is patent. Normal vascularity to the BILLING REPRESENTATIVE territo ry bilaterally. Both ICAs are patent at the skull base. Tortuous right ICA at the skull base which remains patent. No rmal vascularity to the ANATLOIY and MCA territories bilaterally. No evidence of high-grade proximal steno sis or aneurysm. Mild intracranial atheromatous disease. MR/MR angio head wo con [id number] IMPRESSION: 1. No evidence of flow-limiting stenosis or aneurysm. 2. No significant changes since April 07, 2020
--- NOTE | 2021-01-21 12:30 | PC.NURSE ---
cardizem drip stopped drip as ordered per verbal order from Dr. Starr. IV is stopped.
--- NOTE | 2021-01-21 12:42 | PC.OT ---
Occupational therapy evaluation held per nursing.
--- NOTE | 2021-01-21 12:52 | PC.NURSE ---
to MRI transported by stretcher.
--- NOTE | 2021-01-21 12:53 | PC.CHAP ---
Pastoral Care Encounter/Spiritual Assessment Type of Contact [] Declined rn pediatric visit [] Patient/Family/Request visit [] Outpatient visit [] Follow-up visit [] Physician referral [] Code/Alert [xx] Routine visit [] Staff referral [] Actively dying [] Patient sleeping [] Family support [] [] Out of room [] Palliative care [] [] Receiving care in room [] Pre-surgical visit [] Trauma [] Long length of stay [] ICU visit [] Other: Relational/Emotional Strength [] Patient feels connected with others/family/visitors/staff [] Distress [] Loneliness/isolation [] Abandonment Spirituality of Patient [] Person of [place] [] Attends Sikhism of their [place] [] Believes in Prayer [] Reads Bible or Rastafarian materials [] There are Spiritual issues to be addressed Car Installations Supervisor Interventions [] Prayer [] Active listening [] Non-anxious presence [] Spiritual/emotional support [] Crisis/trauma care [] Spiritual counseling [] Bereavement support [] Provided bereavement packet [] Provided Bible/devotional materials [] Provided toy/stuffed animal, coloring book to patient or family member [] Provided Communion [] Anointing/[place] [] Salvation [] Completed spiritual assessment [] Other: Impact on Illness or Injury [] Angry [] Fearful [] Anxious [] Often cries [] Exhaustion [] Unable to work [] Unable to attend sikh [] Unable to walk/stand [] Unable to read [] Unable to drive [] Unable to eat/drink [] Unable to sleep [] Unable to be with family [] Patient intubated [] Other: Summary Patient not coherent enough to talk to. He did not agree to prayer. Time spent with patient 1 minute
[2021-01-21 12:57] LABS: HIV 1 & 2 Antibody Non-Reactive (Non-Reactiv); HIV 1 & 2 Antigen Non-Reactive (Non-Reactiv)
[2021-01-21 13:03] LABS: Hepatitis A Antibody IgM Non-Reactive (Nonreactive); Hepatitis B Core AB, Total Non-Reactive (Nonreactive); Hepatitis B Surface AB 3.5 (11.5-1000); Hepatitis B Surface Antigen Non-Reactive (Nonreactive); Hepatitis C Virus Antibody Non-Reactive (Nonreactive)
[2021-01-21 14:44] LABS: Ammonia 15 umol/L (16-60)
[2021-01-21 16:43] LABS: Glucose Point of Care 255 mg/dL (70-110)
[2021-01-21] MEDS: atorvastatin 40 mg Tablet 20 MG PO (17:01)
--- NOTE | 2021-01-21 17:51 | PC.NURSE ---
Total feeding assistance HOB at 90 degrees. Aspiration Precaution. Pt gonzalez good swallowing. Fedding tolerated well.
[2021-01-21] MEDS: tamsulosin 0.4 mg Capsule PO (20:15)
[2021-01-21 22:12] LABS: Glucose Point of Care 127 mg/dL (70-110)
--- NOTE | 2021-01-21 23:19 | PC.NURSE ---
Bedside report received from Pradeep RN. Patient is resting in bed w/eyes closed. Patient will shake his head yes to allow my assessment and shake his head no that he is not in pain. Nurse will continue to monitor.
--- NOTE | 2021-01-21 23:21 | PC.NURSE ---
Patient is more A & O. He requested something to drink and to be pulled up in bed. Patient now answers yes ma'am and thank you. Nurse will continue to monitor.
[2021-01-22] VITALS (11 sets, daily range): BP systolic 114–140; BP diastolic 80–105; PULSE 76–98; RESP 15–18; TEMP 36.6–36.8; O2SAT 94–99; BMI 32.3
--- NOTE | 2021-01-22 01:35 | PC.NURSE ---
Patient is now speaking in few word sentences and used his call light. Nurse will continue to monitor.
[2021-01-22 04:54] LABS: Glucose Point of Care 117 mg/dL (70-110)
[2021-01-22] MEDS: dilTIAZem 60 mg Tablet PO ×4 (04:54→21:48)
[2021-01-22] MEDS: famotidine 20 mg/2 mL INJ IVP ×2 (04:54→16:48)
[2021-01-22 08:04] LABS: Basophils # 0.1 10^3/uL (0.0-0.1); Basophils % 0.6 %; Eosinophils # 0.3 10^3/uL (0.0-0.8); Eosinophils % 2.8 %; Hematocrit 50.2 % (42.0-52.0); Hemoglobin 16.9 g/dL (11.7-16.6); Lymphocytes # 1.1 10^3/uL (0.8-4.8); Lymphocytes % 10.9 %; Mean Corpuscular HGB Conc 33.7 g/dL (30.0-36.0); Mean Corpuscular Hemoglobin 31.9 pg (28.0-34.0); Mean Corpuscular Volume 94.7 fL (80-94); Mean Platelet Volume 10.3 fL (7.4-10.4); Monocytes # 0.9 10^3/uL (0.2-0.9); Monocytes % 8.4 %; Neutrophils # 7.74 10^3/uL (1.8-7.7); Neutrophils % 76.8 %; Nucleated Red Blood Cells % 0 %; Platelet Count 154 10^3/cmm (130-400); Red Cell Distribution Width 12.3 % (12.1-15.1); White Blood Count 10.1 10^3/uL (4.0-10.0)
[2021-01-22 08:16] LABS: INR 1.39 (0.8-1.2)
[2021-01-22 08:22] LABS: Alanine Aminotransferase 11 U/L (0-41); Albumin Level 2.6 g/dL (3.5-5.2); Alkaline Phosphatase 76 IU/L (40-130); Aspartate Amino Transferase 15 U/L (0-40); Blood Urea Nitrogen 35 mg/dL (8-23); Calcium 9.3 mg/dL (8.5-10.5); Carbon Dioxide 27 mmol/L (22-29); Chloride 105 mmol/L (98-107); Globulin 2.8 g/dL (1.3-4.6); Glomerular Filtration Rate 46.5 mL/min (90-130); Glucose 126 mg/dL (65-115); Osmolality Calculated 300 mOsm/kg (285-295); Sodium 140 mmol/L (136-145); Total Bilirubin 0.5 mg/dL (0.15-1.2); Total Protein 5.4 g/dL (6.6-8.7)
--- NOTE | 2021-01-22 08:51 | P.PN_ITS ---
Subjective Subjective: Interval history: Patient continues to improve. A lot more awake today. Off Cardizem drip. He is able to have complete conversation with me and his brother at bedside. Denies any nausea, vomiting, headache. Vitals/I&O/Wt Last Vital Signs Temp 97.8 F 01/22/21 07:44 Pulse 87 01/22/21 07:44 Resp 17 01/22/21 07:44 BP 123/83 01/22/21 07:44 Pulse Ox 98 01/22/21 07:44 01/21/21 01/22/21 01/22/21 22:59 06:59 14:59 Intake Total 1710 / 2314.584 100 / 2414.584 Output Total 250 / 650 900 / 1550 Balance 1460 / 1664.584 -800 / 864.584 Weight last 48 hrs Weight 99.337 kg Weight 93.576 kg Weight 95.254 kg Physical Exam Narrative: EXAM NARRATIVE: General: No acute distress, AO x2-3. A lot more awake today. HEENT: PERRLA, pupils bilaterally equal and reactive Chest: Normal vesicular breath sounds, no added sounds, equal good air entry bilaterally CVS: S1-S2 irregularly irregular, tachycardia no gallops, no rubs Abdomen: Soft, nontender, no organomegaly, bowel sounds present Neuro: No focal deficits, mild facial deformity, as per brother at baseline, moving all 4 limbs, power 5 x 5 in all limbs. Extremities: Bilateral lower limbs showing chronic vascular changes without edema. Urinary Catheter Management^: Regan: Cath Placed During This Visit: yes Reason for Continuing Indwelling Catheter: Acute Urinary Retention or Obstruction Urinary Catheter Date of Insertion: 01/20/21 Urinary Catheter Time of Insertion: 14:01 Data : 01/22/21 07:19 01/22/21 07:19 Other Labs: Laboratory Results WBC 10.1 10^3/uL (4.0-10.0) H 01/22/21 07:19 RBC 5.30 10^6/uL (4.1-5.3) 01/22/21 07:19 Hgb 16.9 g/dL (11.7-16.6) H 01/22/21 07:19 Hct 50.2 % (42.0-52.0) 01/22/21 07:19 MCV 94.7 fL (80-94) H 01/22/21 07:19 MCH 31.9 pg (28.0-34.0) 01/22/21 07:19 MCHC 33.7 g/dL (30.0-36.0) 01/22/21 07:19 RDW 12.3 % (12.1-15.1) 01/22/21 07:19 Plt Count 154 10^3/cmm (130-400) 01/22/21 07:19 MPV 10.3 fL (7.4-10.4) 01/22/21 07:19 Neut % (Auto) 76.8 % 01/22/21 07:19 Lymph % (Auto) 10.9 % 01/22/21 07:19 [place] % (Auto) 8.4 % 01/22/21 07:19 Eos % (Auto) 2.8 % 01/22/21 07:19 Baso % (Auto) 0.6 % 01/22/21 07:19 Neut # (Auto) 7.74 10^3/uL (1.8-7.7) H 01/22/21 07:19 Lymph # (Auto) 1.1 10^3/uL (0.8-4.8) 01/22/21 07:19 [place] # (Auto) 0.9 10^3/uL (0.2-0.9) 01/22/21 07:19 Eos # (Auto) 0.3 10^3/uL (0.0-0.8) 01/22/21 07:19 Baso # (Auto) 0.1 10^3/uL (0.0-0.1) 01/22/21 07:19 Nucleated RBC % (auto) 0 % 01/22/21 07:19 Nucleated RBCs # 0.0 /100WBC 01/22/21 07:19 PT 17.40 SECONDS (12.1-14.9) H 01/22/21 07:19 INR 1.39 (0.8-1.2) H 01/22/21 07:19 D-Dimer 1.82 ug/mIFEU (0-0.59) H 01/20/21 16:58 Sodium 140 mmol/L (136-145) 01/22/21 07:19 Potassium 3.9 mmol/L (3.5-5.1) 01/22/21 07:19 Chloride 105 mmol/L (98-107) 01/22/21 07:19 Carbon Dioxide 27 mmol/L (22-29) 01/22/21 07:19 Anion Gap 11.9 (5-19) 01/22/21 07:19 BUN 35 mg/dL (8-23) H 01/22/21 07:19 Creatinine 1.5 mg/dL (0.7-1.2) H 01/22/21 07:19 GFR Calculation 46.5 mL/min (90-130) L 01/22/21 07:19 Glucose 126 mg/dL (65-115) H 01/22/21 07:19 POC Glucose 182 mg/dL (70-110) H 01/22/21 10:37 Estimat Average Glucose 194 01/21/21 05:00 Hemoglobin A1c 8.4 % (4.0-6.0) H 01/21/21 05:00 Calculated Osmolality 300 mOsm/kg (285-295) H 01/22/21 07:19 Lactic Acid 1.8 mmol/L (0.5-2.2) 01/21/21 05:00 Lactic Acid (Sepsis) 2.2 mmol/L (0.5-2.2) 01/20/21 16:58 Lactate 3.3 mmol/L (0.5-2.2) H 01/20/21 13:31 Calcium 9.3 mg/dL (8.5-10.5) 01/22/21 07:19 Phosphorus 2.6 mg/dL (2.5-4.5) 01/21/21 05:00 Magnesium 1.9 mg/dL (1.7-2.3) 01/21/21 05:00 Iron 66 ug/dL (59-158) 01/20/21 16:58 TIBC 228 mcg/dl 01/20/21 16:58 % Saturation 28.9 % (20-50) 01/20/21 16:58 Unsat Iron Binding 162 ug/dL (112-347) 01/20/21 16:58 Total Bilirubin 0.5 mg/dL (0.15-1.2) 01/22/21 07:19 AST 15 U/L (0-40) 01/22/21 07:19 ALT 11 U/L (0-41) 01/22/21 07:19 Alkaline Phosphatase 76 IU/L (40-130) 01/22/21 07:19 Ammonia 15 umol/L (16-60) L 01/21/21 14:03 Creatine Kinase 68 U/L (39-308) 01/21/21 05:00 Troponin T Baseline 43 ng/L (0-15) H 01/20/21 13:31 Troponin T 120 Minute 40.52 ng/L (0-15) H 01/20/21 16:58 Delta Troponin T -2.48 ABS# (0-10) L 01/20/21 16:58 Troponin T Hi Sens 6Hr 40.46 ng/L (0-15) H 01/20/21 19:10 Troponin T Hi Sens 6Hr Delta -2.54 ng/L (0-12) L 01/20/21 19:10 C-Reactive Protein 29.5 mg/L (0.0-4.9) H 01/20/21 13:31 NT-Pro-B Natriuret Pep 2026 pg/mL (0-125) H 01/20/21 16:58 Total Protein 5.4 g/dL (6.6-8.7) L 01/22/21 07:19 Albumin 2.6 g/dL (3.5-5.2) L 01/22/21 07:19 Globulin 2.8 g/dL (1.3-4.6) 01/22/21 07:19 Lipase 33 U/L (13-60) 01/20/21 13:31 Procalcitonin 0.09 ng/mL (0-0.5) 01/21/21 05:00 TSH 0.53 uIU/mL (0.27-4.20) 01/20/21 16:58 Urine Color Yellow (Yellow) 01/20/21 13:10 Urine Appearance Hazy (CLEAR) A 01/20/21 13:10 Urine pH 5 (5-7) 01/20/21 13:10 Ur Specific [place] 1.020 (1.005-1.030) 01/20/21 13:10 Urine Protein 3+ (Negative) H 01/20/21 13:10 Urine Glucose (UA) 4+ (Normal) H 01/20/21 13:10 Urine Ketones 1+ (Negative) H 01/20/21 13:10 Urine Blood 3+ (Negative) H 01/20/21 13:10 Urine Nitrate Negative (Negative) 01/20/21 13:10 Urine Bilirubin Neg (Negative) 01/20/21 13:10 Urine Urobilinogen Norm mg/dL (Negative) 01/20/21 13:10 Ur Leukocyte Esterase Negative (Negative) 01/20/21 13:10 Urine RBC 5-10 /hpf (0-2) H 01/20/21 13:10 Urine WBC 0-4 /hpf (0-5) H 01/20/21 13:10 Ur Squamous Epith Cells 10-15 /hpf (0-5) H 01/20/21 13:10 Amorphous Sediment Not Reportable 01/20/21 13:10 Urine Bacteria 2+ /hpf (NONE) H 01/20/21 13:10 Hyaline Casts 5-10 /lpf H 01/20/21 13:10 Ur Random Sodium > 10 mmol/L 01/20/21 13:10 Ur Random Potassium 55 mmol/L 01/20/21 13:10 Ur Random Chloride 13 mmol/L 01/20/21 13:10 Salicylates < 0.3 mg/dL (3-10) L 01/20/21 16:58 Urine Opiates Screen Negative ng/mL (Negative) 01/20/21 13:10 Acetaminophen < 5.0 ug/mL (10-30) L 01/20/21 16:58 Ur Barbiturates Screen Negative ng/mL (Negative) 01/20/21 13:10 Ur Phencyclidine Scrn Negative ng/mL (Negative) 01/20/21 13:10 Ur Amphetamines Screen Negative ng/mL (Negative) 01/20/21 13:10 U Benzodiazepines Scrn Negative ng/mL (Negative) 01/20/21 13:10 Urine Cocaine Screen Negative ng/mL (Negative) 01/20/21 13:10 U Marijuana (THC) Screen Negative ng/mL (Negative) 01/20/21 13:10 Ethyl Alcohol < 10 mg/dL (0-10) 01/20/21 16:58 Hepatitis A IgM Ab Non-reactive (Nonreactive) 01/20/21 16:58 Hep Bs Antigen Non-reactive (Nonreactive) 01/20/21 16:58 Hep Bs Antibody 3.5 (11.5-1000) L 01/20/21 16:58 Hep B Core Total Ab Non-reactive (Nonreactive) 01/20/21 16:58 Hepatitis C Antibody Non-reactive (Nonreactive) 01/20/21 16:58 HIV 1&2 Ab & HIV 1 Ag Non-reactive (Non-Reactiv) 01/20/21 16:58 HIV 1&2 Antibody Non-reactive (Non-Reactiv) 01/20/21 16:58 Influenza Type A Ag Negative (Negative) 01/20/21 18:15 Influenza Type B Ag Negative (Negative) 01/20/21 18:15 Impressions Chest X-Ray 01/20/21 12:49 IMPRESSION: Unremarkable chest radiograph. Head CT 01/20/21 12:49 IMPRESSION: 1. No evidence of intracranial hemorrhage or mass effect. 2. Moderate small vessel changes with moderate parenchymal volume loss. 3. Chronic infarct with encephalomalacia unchanged from the prior MRI. 4. Chronic lacunar infarcts in the left thalamus and cerebellum bilaterally. 5. No acute intracranial findings and no significant interval changes.. Chest CT 01/20/21 15:57 IMPRESSION: 1. Bibasilar atelectasis versus minimal infiltrate. 2. Right lower lobe calcified benign granuloma. 3. Cardiomegaly. 4. Coronary artery atherosclerotic calcifications. 5. Right hepatic lobe cyst. 6. Cholelithiasis. 7. Left kidney cyst, negative for follow up. COMMENTS: Consistent with the [employer]'s Incidental Findings Committee white paper (J Am Natali Radiol 2018): Any incidental renal lesion less than 1 cm or classified as too small to characterize, or any incidental cystic renal lesion characterized as simple-appearing, is likely benign. No follow-up imaging is recommended for these lesions per consensus recommendations based on imaging criteria. Radiation Dose CTDIVOL = (mGy): DLP = 1086.3 (mGy-cm) Head MRI 01/21/21 11:26 IMPRESSION: Images moderately degraded by motion. 1. No evidence of restricted diffusion to suggest acute ischemia. 2. Chronic infarct infarcts right frontoparietal and posterior temporal lobe with encephalomalacia. Ex vacuo dilatation posterior horn right lateral ventricle. 3. Chronic lacunar infarcts in the cerebellum bilaterally and left thalamus. 4. Focus of hemosiderin in the darshana unchanged 5. Moderate small vessel changes with moderate parenchymal volume loss. 6. No significant interval changes since the prior MRI April 07, 2020 Head MRA 01/21/21 11:28 IMPRESSION: 1. No evidence of flow-limiting stenosis or aneurysm. 2. No significant changes since April 07, 2020 Micro: Microbiology 01/20/21 17:01 Blood Culture - Preliminary Blood NEGATIVE TO DATE 01/20/21 16:58 Blood Culture - Preliminary Blood NEGATIVE TO DATE 01/20/21 18:15 MRSA Culture - Final Nose 01/20/21 13:10 Bacterial Antigens - Final Urine Kidney 01/20/21 13:10 Legionella Urinary Antigen - Final Urine Catheterized A&P Assessment and plan (1) Metabolic encephalopathy: Status: Acute (2) Altered mental status: Status: Acute (3) Atrial fibrillation with rapid ventricular response: Status: Acute (4) Subtherapeutic anticoagulation: Status: Acute (5) CKD (chronic kidney disease): Status: Chronic (6) Poorly controlled type 2 diabetes mellitus: Status: Chronic (7) CVA (cerebral vascular accident): Status: Acute (8) Dyslipidemia: Status: Chronic (9) HTN (hypertension): Status: Chronic (10) Lactic acidosis: Resolved Status: Acute (11) Hyponatremia: Resolved Status: Acute (12) Rhabdomyolysis: Resolved Status: Acute Qualifiers: Encounter type: initial encounter Rhabdomyolysis type: traumatic Qualified Code(s): T79.6XXA - Traumatic ischemia of muscle, initial encounter (13) Chronic anticoagulation: Status: Acute Additional A&P Information 70-year-old male with past medical history of multiple CVA, atrial fibrillation, dyslipidemia, uncontrolled hypertension and uncontrolled diabetes mellitus who used to live with his mother who unfortunately 4 days ago presented to the hospital via EMS and confused state. Altered mental status: Could be multifactorial. Most likely metabolic en cephalopathy because of dehydration, uncontrolled diabetes on admission, uncontrolled hypertension on admission most likely because of noncompliance to medications. CVA ruled out with MRI done yesterday. No seizures since admission. Patient has remained hemodynamically stable and afebrile. Chances of sepsis low now. Unlikely meningitis as patient does not have any meningeal signs. Cultures so far has remained negative. Stop imipenem and continue to monitor for the next 1 to 4 hours. MRSA swab, procalcitonin, urine Legionella, bacterial antigen, alcohol level, salicylate level, flu swab- NEGATIVE. Urinalysis negative for signs of infection, patient saturating well on room air. Unclear source of sepsis for now. Patient eating well. Decrease the fluid to 50 cc/h. Monitor for fluid overload. Echocardiogram s/o EF -59%, Grade 1DD, increase size of LA. Atrial fibrillation with rapid ventricular response: Rate controlled now. Continue with Cardizem oral 60 mg every 6 hourly. Subtherpeutic INR: Takes Coumadin 5 and 7.5 mg on alternate days with 7.5 mg on Sunday as well for now. INR improving. Continue with Coumadin 7.5 mg daily. Continue to check INR daily. Daily weights. Strict input output charting. Regan catheterization for now. CKD: Baseline creatinine 1.8-1.9. Creatinine at baseline. Continue to monitor. Medical reconciliation done for nephrotoxic drugs. Hold home dose of lisinopril for now. No acidosis at present. Patient does have elevated BUN and pseudohyponatremia. Type 2 diabetes mellitus: Uncontrolled: A1c- 8.4 Takes 51 units Lantus twice daily. For now continue with Lantus 30 units twice daily. Will increase as per the insulin in next 24 hrs For sliding scale at high-dose protocol every 6 hourly. Hypertension: Goal blood pressure less than 140/90 mmHg. Patient takes clonidine 0.3 3 times daily, hydralazine 100 3 times daily, lisinopril 20, oral Cardizem. For now continue home dose of hydralazine, decrease clonidine to 0.1 3 times daily. Stop lisinopril. We will uptitrate medications accordingly. Poycythemia History of CVA. Dyslipidemia History of DVT. Carb consistent GI soft diet Warfarin will help with DVT prophylaxis as well. Famotidine for PUD prophylaxis. CODE STATUS: As per patient's brother who will be his DPOA when patient is not able to make his own medical decisions for now the patient will be full code. Discharge planning: As per the brother mother used to take care of his medications and in the past patient has had tendency of not taking his medications appropriately causing him to have frequent admissions and a stroke. Seems a lot more deconditioned than as per the conversation with brother. PT/OT evaluation. Most likely discharge to SNF for severe deconditioning. Discussed patient care plan at bedside with brother. All the questions were answered. Attestations Medical Necessity Statement*: Patient requires further hospitalization for management of altered mental status most likely because of uncontrolled hypertension and diabetes mellitus in setting of noncompliance to medications, subtherapeutic INR for atrial fibrillation. Coding Level of Care Code Acute Motorboat Mechanic Inboard/Outboard for Chg Fwd Diagnoses Metabolic encephalopathy G93.41 Altered mental status R41.82 Atrial fibrillation with rapid ventricular response I48.91 Subtherapeutic anticoagulation Z51.81; Z79.01 CKD (chronic kidney disease) N18.9 Poorly controlled type 2 diabetes mellitus E11.65 CVA (cerebral vascular accident) I63.9 Dyslipidemia E78.5 HTN (hypertension) I10 Lactic acidosis E87.2 Hyponatremia E87.1 Rhabdomyolysis T79.6XXA Encounter type: initial encounter Rhabdomyolysis type: traumatic Chronic anticoagulation Z79.01
[2021-01-22 08:53] LABS: Anion Gap 11.9 (5-19); Potassium 3.9 mmol/L (3.5-5.1)
[2021-01-22] MEDS: cloNIDine 0.1 mg Tablet PO ×3 (08:54→20:02)
[2021-01-22] MEDS: ferrous gluconate 324 mg Tablet PO ×2 (08:54→18:39)
[2021-01-22] MEDS: hyDRALAzine 50 mg Tablet 100 MG PO ×3 (08:54→20:02)
[2021-01-22] MEDS: gabapentin 300 mg Capsule PO ×3 (08:55→20:02)
[2021-01-22] MEDS: sodium chloride 0.9% 1,000 ML 75 ML IV ×2 (08:56→21:48)
[2021-01-22] MEDS: insulin glargine 100 units/1 mL 30 UNIT SUBCUT ×2 (09:07→20:02)
[2021-01-22 10:49] LABS: Glucose Point of Care 182 mg/dL (70-110)
[2021-01-22 16:22] LABS: Glucose Point of Care 207 mg/dL (70-110)
[2021-01-22] MEDS: atorvastatin 40 mg Tablet 20 MG PO (18:39)
[2021-01-22] MEDS: tamsulosin 0.4 mg Capsule PO (20:02)
--- NOTE | 2021-01-22 20:24 | PC.NURSE ---
Bedside report received from Louisa WHALEY. Patient is sitting in a chair beside the bed. Patient is able to answer more of my questions today. He states he is feeling better. A & O, no C/O of pain or other needs at this time. Nurse will continue to monitor.
[2021-01-22 22:43] LABS: Glucose Point of Care 111 mg/dL (70-110)
--- NOTE | 2021-01-22 23:09 | PC.NURSE ---
Patient requested help getting into the chair. Chair alarm set. Melissa RN, Dolly RN and this nurse assisted patient to chair. Mayra care and linen change done. Nurse will continue to monitor.
[2021-01-23] VITALS (15 sets, daily range): BP systolic 145–174; BP diastolic 89–102; PULSE 77–88; RESP 12–23; TEMP 36.6–36.9; O2SAT 92–97
[2021-01-23] MEDS: dilTIAZem 60 mg Tablet PO ×4 (04:30→22:12)
[2021-01-23] MEDS: famotidine 20 mg/2 mL INJ IVP ×2 (04:30→17:35)
[2021-01-23 05:15] LABS: Basophils # 0.1 10^3/uL (0.0-0.1); Basophils % 0.6 %; Eosinophils # 0.3 10^3/uL (0.0-0.8); Eosinophils % 3.9 %; Hematocrit 47.7 % (42.0-52.0); Hemoglobin 16.2 g/dL (11.7-16.6); Lymphocytes # 1.4 10^3/uL (0.8-4.8); Lymphocytes % 17.5 %; Mean Corpuscular Hemoglobin 31.4 pg (28.0-34.0); Mean Corpuscular Volume 92.4 fL (80-94); Mean Platelet Volume 10.6 fL (7.4-10.4); Monocytes # 0.8 10^3/uL (0.2-0.9); Monocytes % 9.5 %; Neutrophils # 5.59 10^3/uL (1.8-7.7); Nucleated Red Blood Cells % 0 %; Platelet Count 147 10^3/cmm (130-400); Red Blood Count 5.16 10^6/uL (4.1-5.3); Red Cell Distribution Width 12.1 % (12.1-15.1); White Blood Count 8.2 10^3/uL (4.0-10.0)
[2021-01-23 05:29] LABS: Glucose Point of Care 82 mg/dL (70-110)
[2021-01-23 05:39] LABS: INR 1.57 (0.8-1.2)
[2021-01-23] MEDS: cloNIDine 0.1 mg Tablet PO ×3 (08:55→22:12)
[2021-01-23] MEDS: hyDRALAzine 50 mg Tablet 100 MG PO ×3 (08:55→22:12)
[2021-01-23] MEDS: ferrous gluconate 324 mg Tablet PO ×2 (08:55→17:35)
[2021-01-23] MEDS: insulin glargine 100 units/1 mL 30 UNIT SUBCUT ×2 (08:56→20:53)
[2021-01-23] MEDS: gabapentin 300 mg Capsule PO ×3 (08:56→22:12)
[2021-01-23 09:15] LABS: Alanine Aminotransferase 11 U/L (0-41); Albumin Level 2.9 g/dL (3.5-5.2); Alkaline Phosphatase 66 IU/L (40-130); Anion Gap 9.3 (5-19); Aspartate Amino Transferase 17 U/L (0-40); Blood Urea Nitrogen 29 mg/dL (8-23); Calcium 8.9 mg/dL (8.5-10.5); Carbon Dioxide 29 mmol/L (22-29); Chloride 107 mmol/L (98-107); Globulin 2.6 g/dL (1.3-4.6); Glomerular Filtration Rate 46.5 mL/min (90-130); Glucose 64 mg/dL (65-115); Osmolality Calculated 298 mOsm/kg (285-295); Potassium 3.3 mmol/L (3.5-5.1); Sodium 142 mmol/L (136-145); Total Bilirubin 0.4 mg/dL (0.15-1.2); Total Protein 5.5 g/dL (6.6-8.7)
[2021-01-23] MEDS: lisinopril 20 mg Tablet PO (10:51)
[2021-01-23 11:05] LABS: Glucose Point of Care 215 mg/dL (70-110)
[2021-01-23 11:05] LABS: Glucose Point of Care 225 mg/dL (70-110)
--- NOTE | 2021-01-23 11:42 | PC.SOCIAL ---
Pg 2 IMM. Explained to pt Pg 2 IMM. No questions voiced. Provided pt a copy. Signed, dated, & timed a copy & placed in chart.
--- NOTE | 2021-01-23 13:40 | PM.PN ---
Subjective Subjective: Interval history: Continues to improve. AOx3. Sitting up in chair. Spent most of the day sitting up in chair with family members yesterday. Talking a lot more. AOx3. Telling me about weird dreams he had overnight while sleeping. Vitals/I&O/Wt Last Vital Signs Temp 98.0 F 01/23/21 08:00 Pulse 82 01/23/21 12:00 Resp 18 01/23/21 12:00 BP 157/99 01/23/21 12:00 Pulse Ox 94 01/23/21 12:00 01/22/21 01/23/21 01/23/21 22:59 06:59 14:59 Intake Total 1330 / 2761.25 200 / 2961.25 600 / 600 Output Total 800 / 800 1000 / 1800 780 / 780 Balance 530 / 1961.25 -800 / 1161.25 -180 / -180 Weight last 48 hrs Weight 100.244 kg Weight 99.337 kg Physical Exam Narrative: EXAM NARRATIVE: General: No acute distress, AO x2-3. A lot more awake today. HEENT: PERRLA, pupils bilaterally equal and reactive Chest: Normal vesicular breath sounds, no added sounds, equal good air entry bilaterally CVS: S1-S2 irregularly irregular, tachycardia no gallops, no rubs Abdomen: Soft, nontender, no organomegaly, bowel sounds present Neuro: No focal deficits, mild facial deformity, as per brother at baseline, moving all 4 limbs, power 5 x 5 in all limbs. Extremities: Bilateral lower limbs showing chronic vascular changes without edema. Urinary Catheter Management^: Regan: Cath Placed During This Visit: yes Reason for Continuing Indwelling Catheter: Acute Urinary Retention or Obstruction Urinary Catheter Date of Insertion: 01/20/21 Urinary Catheter Time of Insertion: 14:01 Data : 01/23/21 04:28 01/23/21 04:28 A&P Assessment and plan (1) Metabolic encephalopathy: Status: Acute (2) Altered mental status: Status: Acute (3) Atrial fibrillation with rapid ventricular response: Status: Acute (4) Subtherapeutic anticoagulation: Status: Acute (5) CKD (chronic kidney disease): Status: Chronic (6) Poorly controlled type 2 diabetes mellitus: Status: Chronic (7) CVA (cerebral vascular accident): Status: Acute (8) Dyslipidemia: Status: Chronic (9) HTN (hypertension): Status: Chronic (10) Lactic acidosis: Resolved Status: Acute (11) Hyponatremia: Resolved Status: Acute (12) Rhabdomyolysis: Resolved Status: Acute Qualifiers: Encounter type: initial encounter Rhabdomyolysis type: traumatic Qualified Code(s): T79.6XXA - Traumatic ischemia of muscle, initial encounter (13) Chronic anticoagulation: Status: Acute Additional A&P Information 70-year-old male with past medical history of multiple CVA, atrial fibrillation, dyslipidemia, uncontrolled hypertension and uncontrolled diabetes mellitus who used to live with his mother who unfortunately 4 days ago presented to the hospital via EMS and confused state. Altered mental status: Could be multifactorial. Most likely metabolic encephalopathy because of dehydration, uncontrolled diabetes on admission, uncontrolled hypertension on admission most likely because of noncompliance to medications. CVA ruled out with MRI done yesterday. No seizures since admission. Patient has remained hemodynamically stable and afebrile. Chances of sepsis low now. Unlikely meningitis as patient does not have any meningeal signs. Cultures so far has remained negative. Imipenem was stopped yesterday. Patient has remained hemodynamically stable and afebrile. We will continue to monitor. MRSA swab, procalcitonin, urine Legionella, bacterial antigen, alcohol level, salicylate level, flu swab- NEGATIVE. Urinalysis negative for signs of infection, patient saturating well on room air. Unclear source of sepsis for now. Patient eating well. Stop IV fluids Echocardiogram s/o EF -59%, Grade 1DD, increase size of LA. Atrial fibrillation with rapid ventricular response: Rate controlled now. Continue with Cardizem oral 60 mg every 6 hourly. Subtherpeutic INR: Takes Coumadin 5 and 7.5 mg on alternate days with 7.5 mg on Sunday as well for now. INR improving. Continue with Coumadin 7.5 mg daily. Continue to check INR daily. Daily weights. Strict input output charting. Regan catheterization for now. CKD: Baseline creatinine 1.8-1.9. Creatinine at baseline. Continue to monitor. Medical reconciliation done for nephrotoxic drugs. Hold home dose of lisinopril for now. No acidosis at present. Patient does have elevated BUN and pseudohyponatremia. Type 2 diabetes mellitus: Uncontrolled: A1c- 8.4 Takes 51 units Lantus twice daily. Blood sugars have been extremely labile with morning blood sugars today 64. Continue with Lantus 30 units twice daily. Humalog before meals and at bedtime. We will continue to monitor. Hypertension: Goal blood pressure less than 140/90 mmHg. Patient takes clonidine 0.3 3 times daily, hydralazine 100 3 times daily, lisinopril 20, oral Cardizem. Blood pressure mildly elevated. Change clonidine to 0.2 mg transdermal patch every 7 days. Continue with hydralazine 100 mg 3 times a day, oral Cardizem, lisinopril 20 mg. For now continue home dose of hydralazine, decrease clonidine to 0.1 3 times daily. Stop lisinopril. We will uptitrate medications accordingly. Poycythemia History of CVA. Dyslipidemia History of DVT. Carb consistent GI soft diet Warfarin will help with DVT prophylaxis as well. Famotidine for PUD prophylaxis. CODE STATUS: As per patient's brother who will be his DPOA when patient is not able to make his own medical decisions for now the patient will be full code. Discharge planning: As per the brother mother used to take care of his medications and in the past patient has had tendency of not taking his medications appropriately causing him to have frequent admissions and a stroke. Seems a lot more deconditioned than as per the conversation with brother. PT/OT evaluation. Awaiting SNF placement. Discussed patient care plan at bedside with brother. All the questions were answered. Attestations Medical Necessity Statement*: Requires further hospitalization for management of resolving altered mental status while antihypertensives and antidiabetics were further adjusted, subtherapeutic INR while safe discharge planning is sought for severe generalized deconditioning. Time Spent in Patient Care: Greater than 35 minutes (>than 50% of time spent in counselling and/or direct pt care on unit). Coding Level of Care Code Acute Chief Librarian Extension Department for g Fwd Diagnoses Metabolic encephalopathy G93.41 Altered mental status R41.82 Atrial fibrillation with rapid ventricular response I48.91 Subtherapeutic anticoagulation Z51.81; Z79.01 CKD (chronic kidney disease) N18.9 Poorly controlled type 2 diabetes mellitus E11.65 CVA (cerebral vascular accident) I63.9 Dyslipidemia E78.5 HTN (hypertension) I10 Lactic acidosis E87.2 Hyponatremia E87.1 Rhabdomyolysis T79.6XXA Encounter type: initial encounter Rhabdomyolysis type: traumatic Chronic anticoagulation Z79.01
[2021-01-23] MEDS: cloNIDine 0.2 mg/24 hr Patch 1 PATCH TRANSDERMA (15:11)
[2021-01-23 17:02] LABS: Glucose Point of Care 118 mg/dL (70-110)
[2021-01-23] MEDS: atorvastatin 40 mg Tablet 20 MG PO (17:35)
[2021-01-23 20:12] LABS: Glucose Point of Care 158 mg/dL (70-110)
[2021-01-23] MEDS: tamsulosin 0.4 mg Capsule PO (22:12)
[2021-01-24] VITALS (16 sets, daily range): BP systolic 135–163; BP diastolic 83–101; PULSE 64–82; RESP 15–20; TEMP 36.3–36.8; O2SAT 96–98
[2021-01-24] MEDS: dilTIAZem 60 mg Tablet PO ×4 (04:11→21:09)
[2021-01-24] MEDS: famotidine 20 mg/2 mL INJ IVP (04:11)
[2021-01-24 05:04] LABS: Basophils # 0.1 10^3/uL (0.0-0.1); Basophils % 0.6 %; Eosinophils # 0.3 10^3/uL (0.0-0.8); Eosinophils % 3.2 %; Hematocrit 50.4 % (42.0-52.0); Hemoglobin 17.3 g/dL (11.7-16.6); Lymphocytes # 1.4 10^3/uL (0.8-4.8); Lymphocytes % 16.3 %; Mean Corpuscular HGB Conc 34.3 g/dL (30.0-36.0); Mean Corpuscular Hemoglobin 31.6 pg (28.0-34.0); Mean Corpuscular Volume 92.1 fL (80-94); Mean Platelet Volume 10.5 fL (7.4-10.4); Monocytes # 0.8 10^3/uL (0.2-0.9); Monocytes % 8.8 %; Neutrophils # 6.26 10^3/uL (1.8-7.7); Neutrophils % 70.6 %; Nucleated Red Blood Cells % 0 %; Platelet Count 155 10^3/cmm (130-400); Red Blood Count 5.47 10^6/uL (4.1-5.3); Red Cell Distribution Width 11.9 % (12.1-15.1); White Blood Count 8.9 10^3/uL (4.0-10.0)
[2021-01-24 05:26] LABS: Alanine Aminotransferase 12 U/L (0-41); Albumin Level 2.9 g/dL (3.5-5.2); Alkaline Phosphatase 73 IU/L (40-130); Anion Gap 12.5 (5-19); Aspartate Amino Transferase 16 U/L (0-40); Blood Urea Nitrogen 18 mg/dL (8-23); Calcium 8.7 mg/dL (8.5-10.5); Carbon Dioxide 26 mmol/L (22-29); Chloride 104 mmol/L (98-107); Globulin 3.2 g/dL (1.3-4.6); Glomerular Filtration Rate 60.2 mL/min (90-130); Glucose 70 mg/dL (65-115); Osmolality Calculated 288 mOsm/kg (285-295); Potassium 3.5 mmol/L (3.5-5.1); Sodium 139 mmol/L (136-145); Total Bilirubin 0.4 mg/dL (0.15-1.2); Total Protein 6.1 g/dL (6.6-8.7)
[2021-01-24 06:49] LABS: Glucose Point of Care 76 mg/dL (70-110)
[2021-01-24] MEDS: ferrous gluconate 324 mg Tablet PO ×2 (09:17→18:45)
[2021-01-24] MEDS: hyDRALAzine 50 mg Tablet 100 MG PO ×3 (09:17→21:08)
[2021-01-24] MEDS: cloNIDine 0.1 mg Tablet PO ×3 (09:17→21:08)
[2021-01-24] MEDS: lisinopril 20 mg Tablet PO (09:17)
[2021-01-24] MEDS: gabapentin 300 mg Capsule PO ×3 (09:17→21:08)
[2021-01-24 11:31] LABS: Glucose Point of Care 228 mg/dL (70-110)
[2021-01-24 11:31] LABS: Glucose Point of Care 218 mg/dL (70-110)
[2021-01-24 14:48] LABS: Erythropoietin 7.5 mIU/mL (2.6-18.5)
--- NOTE | 2021-01-24 15:56 | P.PN_ITS ---
Subjective Subjective: Interval history: No acute events overnight. Vitals and labs have been reviewed. Vitals/I&O/Wt Last Vital Signs Temp 98 F 01/24/21 12:00 Pulse 65 01/24/21 12:00 Resp 18 01/24/21 12:00 BP 135/83 01/24/21 15:24 Pulse Ox 98 01/24/21 12:00 01/24/21 01/24/21 01/24/21 06:59 14:59 22:59 Intake Total 100 / 2045.416 2220 / 2220 Output Total 1100 / 3690 1725 / 1725 Balance -1000 / -1644.584 495 / 495 Weight last 48 hrs Weight 95.481 kg Weight 100.244 kg Physical Exam Const: COMMON NORMALS: patient oriented x3 HENMT: COMMON NORMALS: normocephalic and atraumatic HEAD & SCALP: normocephalic and atraumatic Chest: CHEST: Yes Symmetrical chest wall rise Resp: COMMON NORMALS: clear to auscultation bilaterally EFFORT & INSPECTION: Yes symmetric chest movement AUSCULTATION: clear to auscultation bilaterally Cardio: COMMON NORMALS: regular rate, regular rhythm, S1 normal heart sound present, S2 normal heart sound present, No gallops present (Cardio), No murmurs present (Cardio), No rub (Cardio) and Peripheral pulses 2+ throughout RATE: regular rate RHYTHM: regular rhythm HEART SOUNDS: S1 normal heart sound present and S2 normal heart sound present PERIPHERAL PULSES: Peripheral pulses 2+ throughout GI: COMMON NORMALS: Normal to inspection, nondistended, normoactive bowel sounds present, Soft to palpation, non-tender, No hepatosplenomegaly present and no masses AUSCULTATION: Yes normoactive bowel sounds PALPATION: Yes Soft to palpation and Yes No hepatosplenomegaly present RECTAL EXAM: Yes deferred Extremity: COMMON NORMALS: no clubbing, cyanosis or edema and no pedal edema Neuro: COMMON NORMALS: patient oriented x3 Urinary Catheter Management^: Regan: Cath Placed During This Visit: yes Reason for Continuing Indwelling Catheter: Accurate Measurement of Urinary Output in Critically Ill Patients Urinary Catheter Date of Insertion: 01/20/21 Urinary Catheter Time of Insertion: 14:01 Data : 01/24/21 04:18 01/24/21 04:18 A&P Assessment and plan (1) Metabolic encephalopathy: Status: Acute (2) Altered mental status: Status: Acute (3) Atrial fibrillation with rapid ventricular response: Status: Acute (4) Subtherapeutic anticoagulation: Status: Acute (5) CKD (chronic kidney disease): Status: Chronic (6) Poorly controlled type 2 diabetes mellitus: Status: Chronic (7) CVA (cerebral vascular accident): Status: Acute (8) Dyslipidemia: Status: Chronic (9) HTN (hypertension): Status: Chronic (10) Lactic acidosis: Resolved Status: Acute (11) Hyponatremia: Resolved Status: Acute (12) Rhabdomyolysis: Resolved Status: Acute Qualifiers: Encounter type: initial encounter Rhabdomyolysis type: traumatic Qualified Code(s): T79.6XXA - Traumatic ischemia of muscle, initial encounter (13) Chronic anticoagulation: Status: Acute Additional A&P Information 70-year-old male with past medical history of multiple CVA, atrial fibrillation, dyslipidemia, uncontrolled hypertension and uncontrolled diabetes mellitus who used to live with his mother who unfortunately 4 days ago presented to the hospital via EMS and confused state. Altered mental status: Could be multifactorial. Most likely metabolic encephalopathy because of dehydration, uncontrolled diabetes on admission, uncontrolled hypertension on admission most likely because of noncompliance to medications. CVA ruled out with MRI done yesterday. No seizures since admission. Patient has remained hemodynamically stable and afebrile. Chances of sepsis low now. Unlikely meningitis as patient does not have any meningeal signs. Cultures so far has remained negative. Imipenem was stopped yesterday. Patient has remained hemodynamically stable and afebrile. We will continue to monitor. MRSA swab, procalcitonin, urine Legionella, bacterial antigen, alcohol level, salicylate level, flu swab- NEGATIVE. Urinalysis negative for signs of infection, patient saturating well on room air. Unclear source of sepsis for now. Patient eating well. Stop IV fluids Echocardiogram s/o EF -59%, Grade 1DD, increase size of LA. Atrial fibrillation with rapid ventricular response: Rate controlled now. Continue with Cardizem oral 60 mg every 6 hourly. Subtherpeutic INR: Takes Coumadin 5 and 7.5 mg on alternate days with 7.5 mg on Sunday as well for now. INR improving. Continue with Coumadin 7.5 mg daily. Continue to check INR daily. Daily weights. Strict input output charting. Regan catheterization for now. CKD: Baseline creatinine 1.8-1.9. Creatinine at baseline. Continue to monitor. Medical reconciliation done for nephrotoxic drugs. Hold home dose of lisinopril for now. No acidosis at present. Patient does have elevated BUN and pseudohyponatremia. Type 2 diabetes mellitus: Uncontrolled: A1c- 8.4 Takes 51 units Lantus twice daily. Blood sugars have been extremely labile with morning blood sugars today 64. Continue with Lantus 30 units twice daily. Humalog before meals and at bedtime. We will continue to monitor. Hypertension: Goal blood pressure less than 140/90 mmHg. Patient takes clonidine 0.3 3 times daily, hydralazine 100 3 times daily, lisinopril 20, oral Cardizem. Blood pressure mildly elevated. Change clonidine to 0.2 mg transdermal patch every 7 days. Continue with hydralazine 100 mg 3 times a day, oral Cardizem, lisinopril 20 mg. For now continue home dose of hydralazine, decrease clonidine to 0.1 3 times daily. Stop lisinopril. We will uptitrate medications accordingly. Polycythemia: Follow a.m. erythropoietin level. History of CVA. Dyslipidemia History of DVT. Carb consistent GI soft diet Warfarin will help with DVT prophylaxis as well. Famotidine for PUD prophylaxis. CODE STATUS: As per patient's brother who will be his DPOA when patient is not able to make his own medical decisions for now the patient will be full code. Discharge planning: As per the brother mother used to take care of his medications and in the past patient has had tendency of not taking his medications appropriately causing him to have frequent admissions and a stroke. Seems a lot more deconditioned than as per the conversation with brother. PT/OT evaluation. Awaiting SNF placement. Discussed patient care plan at bedside with brother. All the questions were answered. Attestations Medical Necessity Statement*: Patient needs to be in hospital for safe disc harge, currently awaiting placement to SNF. Coding Level of Care Code Acute Mixer Crane Operator for Sergio Dahl Diagnoses Metabolic encephalopathy G93.41 Altered mental status R41.82 Atrial fibrillation with rapid ventricular response I48.91 Subtherapeutic anticoagulation Z51.81; Z79.01 CKD (chronic kidney disease) N18.9 Poorly controlled type 2 diabetes mellitus E11.65 CVA (cerebral vascular accident) I63.9 Dyslipidemia E78.5 HTN (hypertension) I10 Lactic acidosis E87.2 Hyponatremia E87.1 Rhabdomyolysis T79.6XXA Encounter type: initial encounter Rhabdomyolysis type: traumatic Chronic anticoagulation Z79.01
[2021-01-24 17:20] LABS: Glucose Point of Care 257 mg/dL (70-110)
[2021-01-24] MEDS: atorvastatin 40 mg Tablet 20 MG PO (18:44)
[2021-01-24] MEDS: famotidine 20 mg Tablet PO (18:45)
--- NOTE | 2021-01-24 19:31 | PC.NURSE ---
Received bedside report from JOVANA Michel. Patient resting in bed. Alert to self only. Patient talking to himself and watching tv. Helped patient to make a phone call. Patient did know the number and he was able to talk to his best friend . Patient talking about getting a power wheelchair to help with mobility.
[2021-01-24 20:21] LABS: Glucose Point of Care 241 mg/dL (70-110)
[2021-01-24] MEDS: tamsulosin 0.4 mg Capsule PO (21:08)
[2021-01-24] MEDS: insulin glargine 100 units/1 mL 30 UNIT SUBCUT (21:09)
[2021-01-25] VITALS (14 sets, daily range): BP systolic 125–145; BP diastolic 76–95; PULSE 61–88; RESP 12–27; TEMP 36.5–37.3; O2SAT 96
--- NOTE | 2021-01-25 01:51 | PC.NURSE ---
Patient awake and confused. Talking with his dogs . No distress observed.
[2021-01-25] MEDS: dilTIAZem 60 mg Tablet PO ×4 (03:35→19:54)
[2021-01-25 04:06] LABS: Basophils # 0.1 10^3/uL (0.0-0.1); Eosinophils # 0.3 10^3/uL (0.0-0.8); Eosinophils % 3.3 %; Hematocrit 48.8 % (42.0-52.0); Hemoglobin 16.7 g/dL (11.7-16.6); Lymphocytes # 1.1 10^3/uL (0.8-4.8); Lymphocytes % 13.1 %; Mean Corpuscular HGB Conc 34.2 g/dL (30.0-36.0); Mean Corpuscular Hemoglobin 31.4 pg (28.0-34.0); Mean Corpuscular Volume 91.7 fL (80-94); Mean Platelet Volume 10.6 fL (7.4-10.4); Monocytes # 0.9 10^3/uL (0.2-0.9); Monocytes % 10.8 %; Neutrophils % 71.3 %; Nucleated Red Blood Cells % 0 %; Platelet Count 156 10^3/cmm (130-400); Red Blood Count 5.32 10^6/uL (4.1-5.3); Red Cell Distribution Width 11.9 % (12.1-15.1); White Blood Count 8.4 10^3/uL (4.0-10.0)
[2021-01-25 04:24] LABS: Anion Gap 11.3 (5-19); Blood Urea Nitrogen 18 mg/dL (8-23); Calcium 9.1 mg/dL (8.5-10.5); Carbon Dioxide 28 mmol/L (22-29); Chloride 102 mmol/L (98-107); Glomerular Filtration Rate 54.9 mL/min (90-130); Glucose 82 mg/dL (65-115); Osmolality Calculated 287 mOsm/kg (285-295); Potassium 3.3 mmol/L (3.5-5.1); Sodium 138 mmol/L (136-145)
[2021-01-25 04:27] LABS: INR 2.01 (0.8-1.2)
[2021-01-25 06:51] LABS: Glucose Point of Care 86 mg/dL (70-110)
[2021-01-25] MEDS: cloNIDine 0.1 mg Tablet PO ×3 (09:08→19:54)
[2021-01-25] MEDS: famotidine 20 mg Tablet PO ×2 (09:08→17:11)
[2021-01-25] MEDS: hyDRALAzine 50 mg Tablet 100 MG PO ×3 (09:09→19:54)
[2021-01-25] MEDS: gabapentin 300 mg Capsule PO ×3 (09:10→19:55)
[2021-01-25] MEDS: insulin glargine 100 units/1 mL 30 UNIT SUBCUT ×2 (09:10→20:07)
[2021-01-25] MEDS: lisinopril 20 mg Tablet PO (09:10)
[2021-01-25] MEDS: ferrous gluconate 324 mg Tablet PO ×2 (09:17→17:11)
--- NOTE | 2021-01-25 11:06 | PC.SOCIAL ---
MM update IMM updated with patient. He verbalized an understanding. Also updated Brother, Michael about IMM. Copy provided, copy placed in chart, dated, timed,and initialed.
[2021-01-25 11:46] LABS: Glucose Point of Care 233 mg/dL (70-110)
--- NOTE | 2021-01-25 13:04 | PC.NUTR ---
Nutrition assessment completed for LOS. Unclear rationale for GI soft diet per chart review. SK[facility] GRINDER eval on 01/23/21 recommending regular diet texture. Also unclear why pt is not receiving consistent carb diet given uncontrolled DM dx. Spoke with nurse Pradeep, who states she will look into this. Recommend Consistent Carb diet, with any necessary texture modifications per SK[facility] GRINDER evaluation. See RD assessment for further details.
--- NOTE | 2021-01-25 14:10 | P.PN_ITS ---
Subjective Subjective: Interval history: No acute events overnight. Vitals and labs have been reviewed. Vitals/I&O/Wt Last Vital Signs Temp 98 F 01/25/21 04:00 Pulse 69 01/25/21 12:00 Resp 20 H 01/25/21 12:00 BP 134/81 01/25/21 12:00 Pulse Ox 96 01/25/21 11:34 01/24/21 01/25/21 01/25/21 22:59 06:59 14:59 Intake Total 360 / 2580 100 / 2680 118 / 118 Output Total 450 / 2175 Balance 360 / 855 -350 / 505 118 / 118 Weight last 48 hrs Weight 95.708 kg Weight 95.481 kg Physical Exam Const: COMMON NORMALS: patient oriented x3 HENMT: COMMON NORMALS: normocephalic and atraumatic HEAD & SCALP: normocephalic and atraumatic Chest: CHEST: Yes Symmetrical chest wall rise Resp: COMMON NORMALS: clear to auscultation bilaterally EFFORT & INSPECTION: Yes symmetric chest movement AUSCULTATION: clear to auscultation bilaterally Cardio: COMMON NORMALS: regular rate, regular rhythm, S1 normal heart sound present, S2 normal heart sound present, No gallops present (Cardio), No murmurs present (Cardio), No rub (Cardio) and Peripheral pulses 2+ throughout RATE: regular rate RHYTHM: regular rhythm HEART SOUNDS: S1 normal heart sound present and S2 normal heart sound present PERIPHERAL PULSES: Peripheral pulses 2+ throughout GI: COMMON NORMALS: Normal to inspection, nondistended, normoactive bowel sounds present, Soft to palpation, non-tender, No hepatosplenomegaly present and no masses AUSCULTATION: Yes normoactive bowel sounds PALPATION: Yes Soft to palpation and Yes No hepatosplenomegaly present RECTAL EXAM: Yes deferred Extremity: COMMON NORMALS: no clubbing, cyanosis or edema and no pedal edema Neuro: COMMON NORMALS: patient oriented x3 Urinary Catheter Management^: Regan: Cath Placed During This Visit: yes Reason for Continuing Indwelling Catheter: Acute Urinary Retention or Obstruction Urinary Catheter Date of Insertion: 01/20/21 Urinary Catheter Time of Insertion: 14:01 Data : 01/25/21 03:30 01/25/21 03:30 A&P Assessment and plan (1) Metabolic encephalopathy: Status: Acute (2) Altered mental status: Status: Acute (3) Atrial fibrillation with rapid ventricular response: Status: Acute (4) Subtherapeutic anticoagulation: Status: Acute (5) CKD (chronic kidney disease): Status: Chronic (6) Poorly controlled type 2 diabetes mellitus: Status: Chronic (7) CVA (cerebral vascular accident): Status: Acute (8) Dyslipidemia: Status: Chronic (9) HTN (hypertension): Status: Chronic (10) Lactic acidosis: Resolved Status: Acute (11) Hyponatremia: Resolved Status: Acute (12) Rhabdomyolysis: Resolved Status: Acute Qualifiers: Encounter type: initial encounter Rhabdomyolysis type: traumatic Qualified Code(s): T79.6XXA - Traumatic ischemia of muscle, initial encounter (13) Chronic anticoagulation: Status: Acute Additional A&P Information 70-year-old male with past medical history of multiple CVA, atrial fibrillation, dyslipidemia, uncontrolled hypertension and uncontrolled diabetes mellitus who used to live with his mother who unfortunately 4 days ago presented to the hospital via EMS and confused state. Altered mental status: Could be multifactorial. Most likely metabolic encephalopathy because of dehydration, uncontrolled diabetes on admission, uncontrolled hypertension on admission most likely because of noncompliance to medications. CVA ruled out with MRI done yesterday. No seizures since admission. Patient has remained hemodynamically stable and afebrile. Chances of sepsis low now. Unlikely meningitis as patient does not have any meningeal signs. Cultures so far has remained negative. Imipenem was stopped yesterday. Patient has remained hemodynamically stable and afebrile. We will continue to monitor. MRSA swab, procalcitonin, urine Legionella, bacterial antigen, alcohol level, salicylate level, flu swab- NEGATIVE. Urinalysis negative for signs of infection, patient saturating well on room air. Unclear source of sepsis for now. Patient eating well. Stop IV fluids Echocardiogram s/o EF -59%, Grade 1DD, increase size of LA. Atrial fibrillation with rapid ventricular response: Rate controlled now. Continue with Cardizem oral 60 mg every 6 hourly. Subtherpeutic INR: Takes Coumadin 5 and 7.5 mg on alternate days with 7.5 mg on Sunday as well for now. INR improving. Continue with Coumadin 7.5 mg daily. Continue to check INR daily. Daily weights. Strict input output charting. Regan catheterization for now. CKD: Baseline creatinine 1.8-1.9. Creatinine at baseline. Continue to monitor. Medical reconciliation done for nephrotoxic drugs. Hold home dose of lisinopril for now. No acidosis at present. Patient does have elevated BUN and pseudohyponatremia. Type 2 diabetes mellitus: Uncontrolled: A1c- 8.4 Takes 51 units Lantus twice daily. Blood sugars have been extremely labile with morning blood sugars today 64. Continue with Lantus 30 units twice daily. Humalog before meals and at bedtime. We will continue to monitor. Hypertension: Goal blood pressure less than 140/90 mmHg. Patient takes clonidine 0.3 3 times daily, hydralazine 100 3 times daily, lisinopril 20, oral Cardizem. Blood pressure mildly elevated. Change clonidine to 0.2 mg transdermal patch every 7 days. Continue with hydralazine 100 mg 3 times a day, oral Cardizem, lisinopril 20 mg. For now continue home dose of hydralazine, decrease clonidine to 0.1 3 times daily. Stop lisinopril. We will uptitrate medications accordingly. Polycythemia: Follow a.m. erythropoietin level. History of CVA. Dyslipidemia History of DVT. Carb consistent GI soft diet Warfarin will help with DVT prophylaxis as well. Famotidine for PUD prophylaxis. CODE STATUS: As per patient's brother who will be his DPOA when patient is not able to make his own medical decisions for now the patient will be full code. Discharge planning: As per the brother mother used to take care of his medications and in the past patient has had tendency of not taking his medications appropriately causing him to have frequent admissions and a stroke. Seems a lot more deconditioned than as per the conversation with brother. PT/OT evaluation. Awaiting SNF placement. Discussed patient care plan at bedside with brother. All the questions were answered. Attestations Medical Necessity Statement*: Patient needs to be in hospital for placement to [facility] facility.Likely discharge tomorrow in the morning. Coding Level of Care Code Acute Assembler Seat for Sergio Dahl Diagnoses Metabolic encephalopathy G93.41 Altered mental status R41.82 Atrial fibrillation with rapid ventricular response I48.91 Subtherapeutic anticoagulation Z51.81; Z79.01 CKD (chronic kidney disease) N18.9 Poorly controlled type 2 diabetes mellitus E11.65 CVA (cerebral vascular accident) I63.9 Dyslipidemia E78.5 HTN (hypertension) I10 Lactic acidosis E87.2 Hyponatremia E87.1 Rhabdomyolysis T79.6XXA Encounter type: initial encounter Rhabdomyolysis type: traumatic Chronic anticoagulation Z79.01
--- NOTE | 2021-01-25 14:51 | PC.NURSE ---
discussed with patient getting up to the shower. pt agreeable at this time.
--- NOTE | 2021-01-25 16:47 | PC.NURSE ---
new stat lock placed
--- NOTE | 2021-01-25 17:04 | PC.NURSE ---
pt states he just saw his brother and dogs in the car smiling at him.
[2021-01-25] MEDS: atorvastatin 40 mg Tablet 20 MG PO (17:05)
[2021-01-25 17:22] LABS: Glucose Point of Care 282 mg/dL (70-110)
[2021-01-25] MEDS: tamsulosin 0.4 mg Capsule PO (19:54)
[2021-01-25 20:04] LABS: Glucose Point of Care 235 mg/dL (70-110)
--- NOTE | 2021-01-25 20:50 | PC.NURSE ---
Patient educated not to get up without assistance and educated on how to use call light and verbalized understanding. Patient is alert and oriented at this time, but has had episodes of confusion previously, bed alarm has been set.
--- NOTE | 2021-01-25 22:55 | PC.NURSE ---
Patient has no complaints at this time. Will monitor.
[2021-01-25 23:01] LABS: Glucose Point of Care 221 mg/dL (70-110)
[2021-01-26] VITALS (7 sets, daily range): BP systolic 127–161; BP diastolic 89–98; PULSE 51–88; RESP 13–21; TEMP 36.8–36.9; O2SAT 96–99
--- NOTE | 2021-01-26 03:26 | PC.NURSE ---
Dr. Candelario notified of patient's heart rate currently ranging 40s-60s in A-fib. 60 mg of Cardizem is due. Ordered to hold this dose.
[2021-01-26 06:27] LABS: Glucose Point of Care 151 mg/dL (70-110)
[2021-01-26] MEDS: insulin glargine 100 units/1 mL 30 UNIT SUBCUT (07:53)
[2021-01-26] MEDS: lisinopril 20 mg Tablet PO (09:24)
[2021-01-26] MEDS: ferrous gluconate 324 mg Tablet PO (09:24)
[2021-01-26] MEDS: cloNIDine 0.1 mg Tablet PO (09:24)
[2021-01-26] MEDS: gabapentin 300 mg Capsule PO (09:24)
[2021-01-26] MEDS: hyDRALAzine 50 mg Tablet 100 MG PO (09:24)
[2021-01-26] MEDS: famotidine 20 mg Tablet PO (09:24)
[2021-01-26] MEDS: dilTIAZem 60 mg Tablet PO (10:35)
--- NOTE | 2021-01-26 10:40 | PC.NURSE ---
received orders to d/c freeman catheter prior to SNF d/c. freeman removed, catheter intact.
[2021-01-26 11:11] LABS: Glucose Point of Care 273 mg/dL (70-110)
--- NOTE | 2021-01-26 11:20 | PC.NURSE ---
Report called to RAVEN Burgess at [facility]. Patient education provided and d/c faxed to [facility]. Pt left via wheelchair with [facility] transportation planning engineer. VS stable upon departure.
--- NOTE | 2021-01-26 14:34 | P.DS_ITS ---
Discharge Providers Date of Admission: 01/20/21 15:37 Date of Discharge: January 26, 2021 Attending Provider at Admission: Issa Porter MD Attending Provider at Discharge: Bruce Harper MD Primary Care Provider: Destiny Bates MD Diagnoses at Discharge Discharge Diagnosis (1) Metabolic encephalopathy: Status: Resolved (2) Atrial fibrillation with rapid ventricular response: Status: Acute (3) Subtherapeutic anticoagulation: Status: Resolved (4) CKD (chronic kidney disease): Status: Chronic Permanent problem details: Baseline creatinine 1.9 (5) Poorly controlled type 2 diabetes mellitus: Status: Chronic (6) CVA (cerebral vascular accident): Status: Acute Permanent problem details: Residual left side and sensation with no residual weakness (7) Dyslipidemia: Status: Chronic (8) HTN (hypertension): Status: Chronic (9) Lactic acidosis: Status: Acute (10) Hyponatremia: Status: Acute (11) Rhabdomyolysis: Status: Acute Qualifiers: Encounter type: initial encounter Rhabdomyolysis type: traumatic Qualified Code(s): T79.6XXA - Traumatic ischemia of muscle, initial encounter (12) Chronic anticoagulation: Status: Acute Reason for Visit Reason for Visit: CONFUSED/ FOUND ON FLOOR Hospital Course Hospital Course 70 year old male with past medical history of A. fib with RVR on Coumadin, DVT, previous ischemic stroke in right MCA territory with residual left-sided in sensation without any weakness, uncontrolled type 2 diabetes mellitus, hypertension, dyslipidemia, polycythemia, CKD with baseline creatinine of 1.8 presented to the ER.After the brother patient's nephew found him on the floor disoriented.He was admitted for the management of acute encephalopathy,Most likely metabolic encephalopathy because of dehydration, uncontrolled diabetes on admission, uncontrolled hypertension on admission most likely because of noncompliance to medications. Ac CVA was ruled out with MRI and MRA. No seizures since admission. Patient has remained hemodynamically stable and afebrile.Chances of sepsis was low as Cultures remained negative. Initially on broad spectrum antibiotics, which were later discontinued. Unlikely meningitis as patient does not have any meningeal signs.MRSA swab, procalcitonin, urine Legionella, bacterial antigen, alcohol level, salicylate level, flu swab- NEGATIVE. Urinalysis negative for signs of infection, patient saturating well on room air. Patient also presented with A. fib with RVR, he was kept on p.o. Cardizem and was later discharged on home dose of Cardizem. A. fib was rate controlled at the time of discharge. He also came in with subtherapeutic INR warfarin dose were adjusted at the time of discharge his INR was therapeutic. Overall he responded well to the above medical management.As per the brother mother used to take care of his medications and in the past patient has had tendency of not taking his medications appropriately causing him to have frequent admissions and a stroke.Unfortunately the mother had recently. He also had physical deconditioning. PT OT was on board was discharged to [facility] facility. Physical Exam Const: COMMON NORMALS: patient oriented x3 HENMT: COMMON NORMALS: normocephalic and atraumatic HEAD & SCALP: normocephalic and atraumatic Chest: CHEST: Yes Symmetrical chest wall rise Resp: COMMON NORMALS: clear to auscultation bilaterally EFFORT & INSPECTION: Yes symmetric chest movement AUSCULTATION: clear to auscultation bilaterally Cardio: COMMON NORMALS: regular rate, regular rhythm, S1 normal heart sound present, S2 normal heart sound present, No gallops present (Cardio), No murmurs present (Cardio), No rub (Cardio) and Peripheral pulses 2+ throughout RATE: regular rate RHYTHM: regular rhythm HEART SOUNDS: S1 normal heart sound present and S2 normal heart sound present PERIPHERAL PULSES: Peripheral pulses 2+ throughout GI: COMMON NORMALS: Normal to inspection, nondistended, normoactive bowel sounds present, Soft to palpation, non-tender, No hepatosplenomegaly present and no masses AUSCULTATION: Yes normoactive bowel sounds PALPATION: Yes Soft to palpation and Yes No hepatosplenomegaly present RECTAL EXAM: Yes deferred Extremity: COMMON NORMALS: no clubbing, cyanosis or edema and no pedal edema Neuro: COMMON NORMALS: patient oriented x3 Urinary Catheter Management^: Regan: Cath Placed During This Visit: yes, but has since been removed by the nurse Reason for Continuing Indwelling Catheter: Not indwelling catheter Urinary Catheter Date of Insertion: 01/20/21 Urinary Catheter Time of Insertion: 14:01 Date Urinary Catheter Removed: 01/26/21 Time Urinary Catheter Discontinued: 10:30 Discharge Data Data Completed and Pending: Completed Studies During Hospitalization Category Date Time Status CT chest wo con 7 1250 Urgent Cat Scan 01/20/21 15:[address] head wo con* 7 0450 Urgent Cat Scan 01/20/21 12:49 Completed XR chest 1V sara ble [id number] Urgent Exams 01/20/21 12:49 Completed MR angio head wo con [id number] Routine MRI 01/21/21 11:28 Completed MR head wo con* 7 0551 Routine MRI 01/21/21 11:26 Completed CV echo complete* [id number] Routine Ultrasound 01/21/21 06:00 [place] [id number] Routin e Ultrasound 01/21/21 06:00 Completed Pending at discharge Category Date Time Status Erythropoietin Ro utine Lab 01/25/21 03:30 Received Labs from last 24 hours 01/26/21 01/26/21 01/25/21 11:08 06:21 22:57 POC Glucose 273 H 151 H 221 H 01/25/21 01/25/21 20:00 17:09 POC Glucose 235 H 282 H Vitals: Last Vital Signs Temp 98.2 F 01/26/21 11:19 Pulse 88 01/26/21 11:19 Resp 17 01/26/21 11:19 BP 138/96 01/26/21 11:19 Pulse Ox 99 01/26/21 11:19 Discharge Plan Discharge Patient Disposition: Xfer SNF Condition: Stable Prescriptions: Continued potassium chloride 10 mEq capsule, extended release 10 meq PO QAM RF: 0 atorvastatin 20 mg tablet 20 mg PO QPM RF: 0 warfarin 7.5 mg tablet See Rx Instructions .ROUTE .COMPLEX RF: 0 lisinopril 20 mg tablet 20 mg PO BID RF: 0 clonidine HCl 0.3 mg tablet 0.3 mg PO TID RF: 0 tamsulosin 0.4 mg capsule 0.4 mg PO BEDTIME RF: 0 hydralazine 100 mg tablet 100 mg PO TID RF: 0 diltiazem HCl 120 mg capsule,extended release 24hr 120 mg PO QAM RF: 0 furosemide 20 mg tablet 20 mg PO QAM PRN (Reason: Edema) RF: 0 Lantus Solostar U-100 Insulin 100 unit/mL (3 mL) Insulin Pen 51 unit SUBCUT BID RF: 0 gabapentin 300 mg Capsule 300 mg PO TID RF: 0 semaglutide 0.25 mg or 0.5 mg(2 mg/1.5 mL) Pen Injector 0.5 mg SUBCUT Q7D RF: 0 Discharge Orders: Discharge Order (Routine); Ordered 01/26/21 Ordered By: Bruce Harper Referrals: Destiny Bates MD [Primary Care Provider] - 2 weeks Discharge Diet: Diabetic Discharge Activity: Increase activity as tolerated Discharge Attestations Time Spent in Discharge Care*: less than 30 min Specific Discharge Activities: educating patient, educating and/or supporting family/caregiver, discussing with pcp/other providers, discussing with returned case inspector/social workers/dc planners, documenting/other paperwork and evaluating patient/reviewing data Status at Discharge: Cognitive status at discharge: cognitively intact , Behavioral status at discharge: cooperative , Overall status at discharge: patient is back to baseline Quality Metrics Clinical Quality Measures During this hospital stay, did patient experience: None Coding Level of Care Code Acute Chg FW DC note Exam Detailed Diagnoses Metabolic encephalopathy G93.41 Atrial fibrillation with rapid ventricular response I48.91 Subtherapeutic anticoagulation Z51.81; Z79.01 CKD (chronic kidney disease) N18.9 Poorly controlled type 2 diabetes mellitus E11.65 CVA (cerebral vascular accident) I63.9 Dyslipidemia E78.5 HTN (hypertension) I10 Lactic acidosis E87.2 Hyponatremia E87.1 Rhabdomyolysis T79.6XXA Encounter type: initial encounter Rhabdomyolysis type: traumatic Chronic anticoagulation Z79.01
[2021-01-26 16:18] LABS: Erythropoietin 11.9 mIU/mL (2.6-18.5)
== END 2021-01-26 11:21 | disposition skilled nursing facility (03) | DRG 71 ==
LOC: ER 12:45 → CSU 15:48
PROVIDERS: Admitting Provider Student in an Organized Health Care Education/Training Program; Emergency Provider Family Medicine; PCP Family Medicine; Visit Provider Internal Medicine
DX: G93.41 Metabolic encephalopathy (principal); E87.2 Acidosis; E87.1 Hypo-osmolality and hyponatremia; M62.82 Rhabdomyolysis; I48.91 Unspecified atrial fibrillation; E11.22 Type 2 diabetes mellitus with diabetic chronic kidney disease; D75.1 Secondary polycythemia; I12.9 Hypertensive chronic kidney disease with stage 1 through stage 4 chronic kidney disease, or unspecified chronic kidney disease; N18.9 Chronic kidney disease, unspecified; E11.65 Type 2 diabetes mellitus with hyperglycemia; E78.5 Hyperlipidemia, unspecified; I69.398 Other sequelae of cerebral infarction; R20.8 Other disturbances of skin sensation; I25.10 Atherosclerotic heart disease of native coronary artery without angina pectoris; E11.42 Type 2 diabetes mellitus with diabetic polyneuropathy; E83.52 Hypercalcemia; D72.829 Elevated white blood cell count, unspecified; Z79.01 Long term (current) use of anticoagulants; Z79.4 Long term (current) use of insulin; Z86.718 Personal history of other venous thrombosis and embolism; Z87.891 Personal history of nicotine dependence; Z91.14 Patient's other noncompliance with medication regimen
CPT/HCPCS: 36415; 36416; 51702; 70450; 70544; 70551; 71045; 71250; 80048; 80053; 80306; 80307; 81001; 82140; 82436; 82550; 82668; 82962; 83036; 83540; 83550; 83605; 83690; 83735; 83880; 84100; 84133; 84145; 84300; 84443; 84484; 85025; 85378; 85610; 86140; 86403; 86705; 86706; 86709; 86803; 87040; 87340; 87449; 87641; 87804; 87806; 92523; 93005; 93306; 93970; 94664; 96361; 96372; 96374; 97110; 97116; 97162; 97166; 97530; 97535; 99285; J0743; J1815 ×2; J3490; J7030

== ENCOUNTER 2021-02-06 22:17 | Inpatient (IN) | payer MEDICARE, SELFPAY ==
[2021-02-06 22:46] VITALS: BP 135/98; PULSE 115; RESP 22; TEMP 37; O2SAT 95; BMI 30.4
[2021-02-06 23:52] VITALS: BP 107/62; PULSE 56; RESP 22; O2SAT 97
[2021-02-07] VITALS (10 sets, daily range): BP systolic 120–168; BP diastolic 68–99; PULSE 64–114; RESP 17–18; TEMP 36.6–37.2; O2SAT 93–97
[2021-02-07 01:44] LABS: Basophils # 0.1 10^3/uL (0.0-0.1); Basophils % 0.7 %; Eosinophils # 0.1 10^3/uL (0.0-0.8); Eosinophils % 0.8 %; Hematocrit 52.3 % (42.0-52.0); Hemoglobin 17.4 g/dL (11.7-16.6); Lymphocytes # 1.5 10^3/uL (0.8-4.8); Lymphocytes % 12.6 %; Mean Corpuscular HGB Conc 33.3 g/dL (30.0-36.0); Mean Corpuscular Hemoglobin 31.1 pg (28.0-34.0); Mean Corpuscular Volume 93.6 fL (80-94); Mean Platelet Volume 9.8 fL (7.4-10.4); Monocytes % 8.7 %; Neutrophils % 76.8 %; Nucleated Red Blood Cells % 0 %; Platelet Count 273 10^3/cmm (130-400); Red Blood Count 5.59 10^6/uL (4.1-5.3); Red Cell Distribution Width 12.1 % (12.1-15.1); White Blood Count 11.7 10^3/uL (4.0-10.0)
[2021-02-07 02:01] LABS: Alanine Aminotransferase 14 U/L (0-41); Albumin Level 3.3 g/dL (3.5-5.2); Alkaline Phosphatase 151 IU/L (40-130); Aspartate Amino Transferase 15 U/L (0-40); Blood Urea Nitrogen 27 mg/dL (8-23); Calcium 9.1 mg/dL (8.5-10.5); Carbon Dioxide 22 mmol/L (22-29); Chloride 101 mmol/L (98-107); Globulin 4.2 g/dL (1.3-4.6); Glomerular Filtration Rate 46.5 mL/min (90-130); Glucose 219 mg/dL (65-115); Lipase 21 U/L (13-60); Osmolality Calculated 296 mOsm/kg (285-295); Sodium 137 mmol/L (136-145); Total Bilirubin 0.6 mg/dL (0.15-1.2); Total Protein 7.5 g/dL (6.6-8.7)
--- NOTE | 2021-02-07 02:01 | CTR_ITS ---
PROCEDURE INFORMATION: Exam: CT Abdomen And Pelvis With Contrast Exam date and time: 02/07/2021 2:01 AM Age: 70 years old Clinical indication: Bloating; Additional info: Llq pain TECHNIQUE: Imaging protocol: Computed tomography of the abdomen and pelvis with contrast. Radiation optimization: All CT scans at this facility use at least one of these dose optimization techniques: automated exposure control; mA and/or kV adjustment per patient size (includes targeted exams where dose is matched to clinical indication); or iterative reconstruction. Contrast material: VISI; Contrast volume: 95 ml; Contrast route: INTRAVENOUS (IV); COMPARISON: CR XR hip LT 2-3V wo/w pel* [id number] 06/11/2020 11:00 AM RADIATION DOSE METRICS: Total DLP (mGy-cm): 1812.95 FINDINGS: Lungs: The lung bases are clear. No effusion Heart: There is mild cardiomegaly. Liver: There is fatty infiltration of the liver. There are multiple hepatic cysts, largest of which measures 2.6 cm. Gallbladder and bile ducts: There is cholelithiasis without wall thickening or pericholecystic fluid. Pancreas: Normal. No ductal dilation. Spleen: Normal. No splenomegaly. Adrenal glands: Normal. No mass. Kidneys and ureters: There are multiple left renal cysts, largest measures 2.3 cm; There is a subcentimeter low-attenuation lesions/lesions, of the right kidney which are too small to accurately characterize by CT. Stomach and bowel: There are few loops of gas and fluid-filled small bowel with a balanced amount of gas and fluid in the colon. Appendix: No evidence of appendicitis. Intraperitoneal space: Unremarkable. No free air. No significant fluid collection. Vasculature: Mild atherosclerotic disease of the aorta without aneurysm. Lymph nodes: Unremarkable. No enlarged lymph nodes. Urinary bladder: Unremarkable as visualized. Reproductive: There is prostate enlargement with urinary bladder wall thickening. Bones/joints: Grade 1 anterolisthesis of L5 on S1 secondary to bilateral pars defects at L5. Soft tissues: Unremarkable. CT/CT abdomen pelvis w con* [id number] IMPRESSION: 1. Ileus. 2. Mild cardiomegaly. 3. Fatty infiltration of the liver. 4. Cholelithiasis without cholecystitis. 5. Mild atherosclerotic disease of the aorta without aneurysm. 6. Obstructive uropathy from enlarged prostate. COMMENTS: Consistent with the [place] [employer]'s Incidental Findings Committee white paper (J Am Natali Radiol 2018): Any incidental renal lesion less than 1 cm or classified as too small to characterize, or any incidental cystic renal lesion characterized as simple-appearing, is likely benign. No follow-up imaging is recommended for these lesions per consensus recommendations based on imaging criteria. Radiation Dose CTDIVOL = (mGy): DLP = 1812.95 (mGy-cm)
[2021-02-07 02:03] LABS: Anion Gap 18.7 (5-19); Potassium 4.7 mmol/L (3.5-5.1); Slide Review Slide Review Perform
[2021-02-07] MEDS: iodixanol 320 mg/mL 100mL Btl IV (02:39)
[2021-02-07] MEDS: sodium chloride 0.9% 1,000 ML 999 ML IV (02:45)
[2021-02-07 02:52] LABS: Add Urine Microscopic? YES; Bilirubin Urine 1+ (Negative); Blood Urine Trace (Negative); Glucose Urine UA 1+ (Normal); Ketones Urine 1+ (Negative); Leukocyte Esterase Urine Negative (Negative); Nitrate Urine Negative (Negative); Protein Urine 3+ (Negative); RBC Urine 0-4 /hpf (0-2); Squamous Epithelial Cell Urine 0-4 /hpf (0-5); Urine Appearance Clear (CLEAR); Urine Color Yellow (Yellow); Urobilinogen Urine 1 mg/dL (Negative); WBC Urine 0-4 /hpf (0-5); pH Urine 5 (5-7)
[2021-02-07 02:53] LABS: Amorphous Sediment Urine 1+ /hpf; Bacteria Urine TRACE /hpf; Hyaline Casts Urine 0-4 /lpf; Mucus Urine 1+ /hpf
--- NOTE | 2021-02-07 05:50 | PM.HP ---
Providers/Chief Complaint Primary Care Provider: Destiny Bates MD Chief Complaint: diarhea, dehydration History of Present Illness Luis Mcintosh is a 70 year old male with past medical history of multiple CVA, atrial fibrillation, dyslipidemia, uncontrolled hypertension and uncontrolled diabetes mellitus who was recently discharged from a [facility] presented today with chief complaint of frequent loose stools. Patient is stating that he was constipated for quite some time and received a cocktail at the [facility] and was seen at urgent care as well for constipation and got stool softeners as well. Since Sunday has been having frequent loose stools to the point that he is not able to make it to the bathroom. His whole bedroom and home floors were covered in stool. He is describing his stool as baby brown liquid. He has been noticing some pressure-like sensation in mid epigastric region as well and vomited once or twice at home. He has not noticed any fever has not use any antibiotics. Lately he has been seeing his mother who 2 weeks ago from ALS. Diagnostics in the ER revealed mild leukocytosis, hemoglobin 17, clinical signs of dehydration worsening CHRISTINE, He was started on fluids in the ER, received 1 L heart rate [address]/CT abdomen pelvis w con* [id number] IMPRESSION: 1. Ileus. 2. Mild cardiomegaly. 3. Fatty infiltration of the liver. 4. Cholelithiasis without cholecystitis. 5. Mild atherosclerotic disease of the aorta without aneurysm. 6. Obstructive uropathy from enlarged prostate Review of Systems Const: Reports: chills and fatigue; Denies: fever(s) or body aches Eyes: Denies: change in vision ENMT: Denies: throat pain Card: Denies: chest pain Resp: Denies: dyspnea GI: Reports: diarrhea; Denies: abdominal pain : Denies: flank pain Musc: Denies: neck pain Skin/Breast: Reports: lesions Neuro: Reports: difficulty walking; Denies: headache(s) Psych: Reports: depression Endo: Denies: polyuria Loco/Lymph: Denies: easy bruising All/Imm: Denies: urticaria Medications/Allergies Home Medications Medication Instructions Recorded Confirmed Last Taken Type Lantus Solostar U-100 Insulin 51 unit SUBCUT BID 04/04/20 02/06/21 04/03/20 History atorvastatin 20 mg PO QPM 04/04/20 02/06/21 04/03/20 History clonidine HCl 0.3 mg PO TID 04/04/20 02/06/21 04/03/20 History diltiazem HCl 120 mg PO QAM 04/04/20 02/06/21 04/03/20 History furosemide 20 mg PO QAM PRN 04/04/20 02/06/21 04/03/20 History hydralazine 100 mg PO TID 04/04/20 02/06/21 04/03/20 History lisinopril 20 mg PO BID 04/04/20 02/06/21 04/03/20 History potassium chloride 10 meq PO QAM 04/04/20 02/06/21 04/03/20 History tamsulosin 0.4 mg PO BEDTIME 04/04/20 02/06/21 04/03/20 History warfarin See Rx Instructions .ROUTE .COMPLEX 04/04/20 02/06/21 04/03/20 History gabapentin 300 mg PO TID 01/20/21 02/06/21 Unknown History semaglutide 0.5 mg SUBCUT Q7D 01/20/21 02/06/21 Unknown History ondansetron 4 mg disintegrating 4 mg PO Q8H PRN #20 tab 02/06/21 02/06/21 Unknown Rx tablet Allergies Allergy/AdvReac Type Severity Reaction Status Date / Time Penicillins Allergy ALGY-Rash Verified 02/06/21 11:20 PFSH Acute PFSH: Medical History (Updated 02/07/21 @ 06:33 by Komal Candelario MD) Atrial fibrillation with rapid ventricular response CAD (coronary artery disease) Chronic anticoagulation CKD (chronic kidney disease) Baseline creatinine 1.9 CVA (cerebral vascular accident) 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 Depression DVT (deep venous thrombosis) Dyslipidemia HTN (hypertension) Peripheral neuropathy Polycythemia Poorly controlled type 2 diabetes mellitus Surgical History (Updated 02/07/21 @ 06:32 by Komal Candelario MD) No pertinent past surgical history Family History Other CAD (coronary artery disease) Cancer Social History Smoking and tobacco status: former smoker Alcohol intake: never Caregiver/support person: No Household members: none Housing: House Vitals/I&O/Wt Last Vital Signs Temp 98.6 F 02/06/21 22:46 Pulse 115 H 02/06/21 22:46 Resp 22 H 02/06/21 22:46 BP 135/98 02/06/21 22:46 Pulse Ox 95 02/06/21 22:46 Weight last 48 hrs Weight 90.718 kg Physical Exam Narrative: EXAM NARRATIVE: Pleasant cooperative male Clinical signs of dehydration Unkept appearance S1, S2 variable heart rate 115 no signs of heart failure No respiratory distress no use of accessory muscles no audible stridor or wheezing Abdomen distended hyperactive bowel sounds no signs of peritonitis Lower extremity venous stasis dermatitis Laceration of toes no joint swelling EOMI, PERRLA NIH 0 Awake alert oriented x3 GCS 15 Brother at the bedside Data : 02/07/21 01:37 02/07/21 01:37 A&P Assessment and plan (1) Ileus: Status: Acute (2) Acute dehydration: Status: Acute (3) Atrial fibrillation: Status: Chronic Additional A&P Information Ileus Bowel movement pattern change from constipation to profuse diarrhea 2 episodes of emesis at home No fever blood in stool recent use of antibiotics Rule out C. difficile CT abdomen pelvis consistent with ileus, no severe electrolyte abnormality N.p.o., will place NG tube Resuscitate with fluids for now Acute on chronic kidney disease: Hold lisinopril and potassium supplementation Anticipating improvement with fluid resuscitation CT abdomen revealed obstructive uropathy however he has been able to void on his own, BladderScan as needed Continue tamsulosin finasteride A. fib with RVR Secondary to dehydration Continue diltiazem and Coumadin, check INR Type 2 diabetes: I would use low-dose sliding scale considering n.p.o. status Blood glucose 219 Goals of care discussed with the patient in front of his brother: He is DNR/DNI N.p.o., advance as tolerated DVT prophylaxis not indicated currently on Coumadin Attestations Medical Necessity Statement*: Anticipating stay in the hospital cross more than 2 midnights for fluid resuscitation, dehydration, profuse diarrhea, ileus management Time Spent in Patient Care: 35mins Coding Level of Care Code Acute Learning Development Specialist for g Fwd Diagnoses Ileus K56.7 Acute dehydration E86.0 Atrial fibrillation I48.91
--- NOTE | 2021-02-07 06:59 | ED_ITS ---
HPI - Abdominal Pain General: Chief Complaint: Abdominal Pain Stated Complaint: diarhea, dehydration Time Seen by Provider: 02/07/21 01:49 History of Present Illness: HPI narrative: 70-year-old male with left-sided belly pain, profuse diarrhea, and dehydration. He had been at the custodial until Sunday, and had been constipated. He was given some form of laxative there, and has had liquid stool all weekend. He has not been able to control it. He has become increasingly weak, and according to his family members mildly delirious. They deny any fever. No vomiting. MD elicited complaint: abdominal pain Pertinent past history: other Onset (ago): day(s) Pain Consistency: constant Location: LLQ Severity: moderate Quality: cramping Radiation: none Migration to: no migration Exacerbating factors: eating and bowel movement Relieving factors: nothing Associated Symptoms: Reports change in bowel habits, change in stool character, GI cramping, diarrhea and nausea; Denies chills, coffee ground emesis, dyspepsia, dysuria, fever(s) and vomiting Review of Systems Const: Denies: fever(s) or chills Card: Denies: chest pain or palpitations Resp: Reports: dyspnea GI: Reports: nausea, diarrhea, GI cramping, change in bowel habits and change in stool character; Denies: vomiting or coffee ground emesis : Denies: dysuria PFSH ED PFSH: Medical History (Updated 02/07/21 @ 06:33 by Komal Candelario MD) Atrial fibrillation with rapid ventricular response CAD (coronary artery disease) Chronic anticoagulation CKD (chronic kidney disease) Baseline creatinine 1.9 CVA (cerebral vascular accident) 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 Depression DVT (deep venous thrombosis) Dyslipidemia HTN (hypertension) Peripheral neuropathy Polycythemia Poorly controlled type 2 diabetes mellitus Surgical History (Updated 02/07/21 @ 06:32 by Komal Candelario MD) No pertinent past surgical history Family History Other CAD (coronary artery disease) Cancer Social History Smoking and tobacco status: former smoker Alcohol intake: never Caregiver/support person: No Household members: none Housing: House Physical Exam Const: GENERAL APPEARANCE: cooperative, ill appearing and frail appearing ORIENTATION/CONSCIOUSNESS: Yes oriented to person, Yes oriented to place and Yes oriented to time HENMT: COMMON NORMALS: normocephalic, external ears normal and Normal external nose present HEAD & SCALP: normocephalic FACE & SINUS: normal facial exam NOSE: Normal external nose present and No nasal discharge present EXTERNAL EAR: Yes external ears normal Eye: COMMON NORMALS: Equal, round and reactive pupils present, EOMs intact bilaterally and conjunctivae normal EYELID: eyelids normal CONJUNCTIVA: Yes conjunctivae normal PUPIL: Yes Equal, round and reactive pupils present Neck/C-Spine: COMMON NORMALS: full ROM GENERAL: No tracheal deviation CERVICAL SPINE: Yes normal cervical lordosis and No Cervical spine tenderness Chest: COMMONS NORMALS: normal inspection of the chest CHEST: No tenderness Resp: COMMON NORMALS: clear to auscultation bilaterally EFFORT & INS PECTION: No tachypneic, No respiratory distress, No retractions, No uses accessory muscles and No tracheal deviation AUSCULTATION: clear to auscultation bilaterally, no rhonchi, no wheezes and lung sounds not diminished Cardio: COMMON NORMALS: regular rhythm RATE: tachycardic RHYTHM: regular rhythm HEART SOUNDS: no murmurs PERIPHERAL PULSES: radial pulses present GI: INSPECTION: No abdominal distension AUSCULTATION: No Hyperactive bowel sounds present and No Hypoactive bowel sounds present PALPATION: Yes Tenderness to palpation present (GI) Details: LLQ, No Guarding due to palpation present (GI) and No Rigid due to palpation PERCUSSION: no dullness to percussion and no tympanic to percussion Neuro: SENSORIUM/ORIENTATION: Yes oriented to person, Yes oriented to place and Yes oriented to time Psych: COMMON NORMALS: mental status grossly normal Skin: COMMON NORMALS: no rashes or lesions noted GENERAL SKIN EXAM: no rashes or lesions noted Course Vital Signs: Vital signs: Vital Signs Temperature 98.6 F 02/06/21 22:46 Pulse Rate 84 02/07/21 03:40 Respiratory Rate 18 02/07/21 03:40 Blood Pressure 137/98 02/07/21 06:22 Pulse Oximetry 97 02/07/21 06:22 MDM - Abdominal Pain MDM Narrative: Medical decision making narrative: White blood cell count is 11.7. Hemoglobin 17.4, which is essentially baseline. Creatinine is 1.5 which appears baseline as well. This patient has been incontinent of stool at home. He is weak. He is dehydrated. He will be observed. His CT showed an ileus, without definite colitis. As soon as he is able, will send for C. difficile and stool studies. Lab Data: Labs: Lab Results 02/07/21 02/07/21 02/07/21 Range/Units 01:37 01:37 02:20 WBC 11.7 H (4.0-10.0) 10^3/ uL RBC 5.59 H (4.1-5.3) 10^6/u L Hgb 17.4 H (11.7-16.6) g/dL Hct 52.3 H (42.0-52.0) % MCV 93.6 (80-94) fL MCH 31.1 (28.0-34.0) pg MCHC 33.3 (30.0-36.0) g/dL RDW 12.1 (12.1-15.1) % Plt Count 273 (130-400) 10^3/c mm MPV 9.8 (7.4-10.4) fL Neut % (Auto) 76.8 % Lymph % (Auto) 12.6 % [place] % (Auto) 8.7 % Eos % (Auto) 0.8 % Baso % (Auto) 0.7 % Neut # (Auto) 9.00 H (1.8-7.7) 10^3/u L Lymph # (Auto) 1.5 (0.8-4.8) 10^3/u L [place] # (Auto) 1.0 H (0.2-0.9) 10^3/u L Eos # (Auto) 0.1 (0.0-0.8) 10^3/u L Baso # (Auto) 0.1 (0.0-0.1) 10^3/u L Nucleated RBC % (a uto) 0 % Nucleated RBCs # 0.0 /100WBC Sodium 137 (136-145) mmol/L Potassium 4.7 (3.5-5.1) mmol/L Chloride 101 (98-107) mmol/L Carbon Dioxide 22 (22-29) mmol/L Anion Gap 18.7 (5-19) BUN 27 H (8-23) mg/dL Creatinine 1.5 H (0.7-1.2) mg/dL GFR Calculation 46.5 L (90-130) mL/min Glucose 219 H (65-115) mg/dL Calculated Osmolal ity 296 H (285-295) mOsm/k g Calcium 9.1 (8.5-10.5) mg/dL Total Bilirubin 0.6 (0.15-1.2) mg/dL AST 15 (0-40) U/L ALT 14 (0-41) U/L Alkaline Phosphata se 151 H (40-130) IU/L Total Protein 7.5 (6.6-8.7) g/dL Albumin 3.3 L (3.5-5.2) g/dL Globulin 4.2 (1.3-4.6) g/dL Lipase 21 (13-60) U/L Urine Color Yellow (Yellow) Urine Appearance Clear (CLEAR) Urine pH 5 (5-7) Ur Specific Gravit y 1.020 (1.005-1.030) Urine Protein 3+ H (Negative) Urine Glucose (UA) 1+ (Normal) Urine Ketones 1+ H (Negative) Urine Blood Trace H (Negative) Urine Nitrate Negative (Negative) Urine Bilirubin 1+ H (Negative) Urine Urobilinogen 1 H (Negative) mg/dL Ur Leukocyte Ibeth ase Negative (Negative) Urine RBC 0-4 H (0-2) /hpf Urine WBC 0-4 H (0-5) /hpf Ur Squamous Epith Cells 0-4 H (0-5) /hpf Amorphous Sediment 1+ /hpf Urine Bacteria Trace (NONE) /hpf Hyaline Casts 0-4 H /lpf Urine Mucus 1+ /hpf Discharge Plan Discharge Patient Disposition: Placed in Observation Admit Provider: Komal Candelario Clinical Impression: Ileus, Acute dehydration Coding Level of Care Code ED Health Sanitarian for Chg Fwd Exam Comprehensive
--- NOTE | 2021-02-07 08:05 | PC.NURSE ---
patient has order for NG tube order. patient asking why he needs an NG tube when he is having diarrhea every 1-[address] Triana Per Dr Triana, Dr Candelario ordered NG for vomiting. Per patient, he only vomited once. Per Dr Triana, put NG order on hold. Merchandising Manager put order in.
[2021-02-07] MEDS: cloNIDine 0.1 mg Tablet PO ×3 (08:34→22:03)
[2021-02-07] MEDS: warfarin 5 mg Tablet 7.5 MG PO (08:34)
[2021-02-07] MEDS: dilTIAZem ER (24HR) 120 mg Capsule PO (08:34)
[2021-02-07] MEDS: sodium chloride 0.9% 1,000 ML 75 ML IV ×2 (08:34→22:04)
[2021-02-07] MEDS: metoclopramide 5 mg/mL SDV 2 mL IVP (08:35)
[2021-02-07] MEDS: tamsulosin 0.4 mg Capsule 0.8 MG PO (08:35)
[2021-02-07] MEDS: hyDRALAzine 50 mg Tablet PO ×3 (08:35→22:03)
[2021-02-07] MEDS: heparin 5,000 unit/mL INJ 1 mL 5000 UNIT SUBCUT ×3 (08:36→22:03)
[2021-02-07 08:49] LABS: Glucose Point of Care 225 mg/dL (70-110)
--- NOTE | 2021-02-07 10:45 | PC.PHAR ---
pt unable to verify medications-pt states she takes care of his own medications-pt was discharged from [facility] on 02/04/21-pt was discharged with this medication from [facility] per xiomara faxed discharge papers-[facility] also-pt states he takes lantus solostar 45 units bid [facility] list has 51 units bid pt states he also has some other insulin that he uses 16 units daily doesnt show on [facility] list [facility] to see if another insulin is on there
[2021-02-07 11:33] LABS: Glucose Point of Care 191 mg/dL (70-110)
[2021-02-07 11:53] LABS: INR 1.47 (0.8-1.2)
--- NOTE | 2021-02-07 13:19 | P.PN_ITS ---
Subjective Subjective: Interval history: States that he is feeling better, would like to try some oral diet. Has not had a bowel movement since this morning. Diarrhea appears to have subsided so far. No vomiting. Abdominal pain/discomfort in the left side of the abdomen has significantly improved. Vitals/I&O/Wt Last Vital Signs Temp 98.9 F 02/07/21 11:19 Pulse 89 02/07/21 11:19 Resp 17 02/07/21 08:04 BP 148/92 02/07/21 11:19 Pulse Ox 97 02/07/21 11:19 02/06/21 02/07/21 02/07/21 22:59 06:59 14:59 Intake Total 1000 / 1000 Balance 1000 / 1000 Weight last 48 hrs Weight 90.718 kg Physical Exam Const: COMMON NORMALS: no acute distress and patient oriented x3 OTHER: Pleasant, conversant. Enthused at the idea of trying some oral intake. HENMT: COMMON NORMALS: oropharynx normal Neck/C-Spine: COMMON NORMALS: no JVD Resp: COMMON NORMALS: normal respiratory effort and clear to auscultation bilaterally AUSCULTATION: clear to auscultation bilaterally Cardio: COMMON NORMALS: no JVD, regular rhythm, S1 normal heart sound present, S2 normal heart sound present and No murmurs present (Cardio) RHYTHM: regular rhythm HEART SOUNDS: S1 normal heart sound present and S2 normal heart sound present GI: COMMON NORMALS: Normal to inspection, nondistended, normoactive bowel sounds present, Soft to palpation and non-tender PALPATION: Yes Soft to palpation Extremity: COMMON NORMALS: no joint enlargement and no pedal edema Neuro: COMMON NORMALS: patient oriented x3 and moves all extremities Skin: COMMON NORMALS: no rashes or lesions noted GENERAL SKIN EXAM: no rashes or lesions noted OTHER: Chronic stasis dermatitis on bilateral lower extremities. Hemosiderosis. Data : 02/07/21 01:37 02/07/21 01:37 A&P Assessment and plan (1) Ileus: Gastroenteritis, ileus with diarrhea prior to presentation. Vomiting yesterday, but without recurrence. He states diarrhea resolved this morning. He is feeling much better, wants to try oral intake. Agreeable to start with clears. So far no stool sample. Discussed with him and he will notify the nursing in case goes again. Follow-up stool studies. Status: Acute (2) Acute dehydration: Continue gentle IV rehydration. Trial of oral intake. Status: Acute (3) Atrial fibrillation: Continue diltiazem, Coumadin. Status: Chronic Additional A&P Information Acute on chronic kidney disease: Hold lisinopril and potassium supplementation Anticipating improvement with fluid resuscitation CT abdomen revealed obstructive uropathy however he has been able to void on his own, BladderScan as needed Continue tamsulosin finasteride Type 2 diabetes:low-dose sliding scale. Resume Lantus at lower dose. Blood glucose 219 Patient reported to nursing staff he was to be full code. Adjusted CODE STATUS. Attestations Medical Necessity Statement*: Continue hospitalization for assessment manageme nt of ileus, gastroenteritis, lack of oral intake, dehydration, trial of oral diet. 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
[2021-02-07 16:55] LABS: Glucose Point of Care 137 mg/dL (70-110)
[2021-02-07] MEDS: insulin glargine 100 units/1 mL 15 UNIT SUBCUT (17:05)
[2021-02-07 21:15] LABS: Glucose Point of Care 224 mg/dL (70-110)
[2021-02-07] MEDS: finasteride 5 mg Tablet PO (22:03)
[2021-02-08] VITALS (8 sets, daily range): BP systolic 148–169; BP diastolic 82–97; PULSE 84–99; RESP 17–18; TEMP 36.4–37; O2SAT 95–97
[2021-02-08 01:37] LABS: Glucose Point of Care 151 mg/dL (70-110)
[2021-02-08 05:38] LABS: Basophils # 0.1 10^3/uL (0.0-0.1); Basophils % 0.8 %; Eosinophils # 0.2 10^3/uL (0.0-0.8); Eosinophils % 2.4 %; Hematocrit 49.2 % (42.0-52.0); Hemoglobin 16.7 g/dL (11.7-16.6); Lymphocytes # 1.1 10^3/uL (0.8-4.8); Mean Corpuscular HGB Conc 33.9 g/dL (30.0-36.0); Mean Corpuscular Volume 91.3 fL (80-94); Mean Platelet Volume 9.3 fL (7.4-10.4); Monocytes # 0.7 10^3/uL (0.2-0.9); Monocytes % 9.4 %; Neutrophils # 5.73 10^3/uL (1.8-7.7); Neutrophils % 72.9 %; Nucleated Red Blood Cells % 0 %; Platelet Count 249 10^3/cmm (130-400); Red Blood Count 5.39 10^6/uL (4.1-5.3); Red Cell Distribution Width 11.9 % (12.1-15.1); White Blood Count 7.9 10^3/uL (4.0-10.0)
[2021-02-08 05:57] LABS: Blood Urea Nitrogen 12 mg/dL (8-23); Calcium 8.4 mg/dL (8.5-10.5); Carbon Dioxide 25 mmol/L (22-29); Chloride 105 mmol/L (98-107); Glomerular Filtration Rate 66.6 mL/min (90-130); Glucose 126 mg/dL (65-115); Osmolality Calculated 291 mOsm/kg (285-295); Sodium 140 mmol/L (136-145)
[2021-02-08 06:29] LABS: Glucose Point of Care 142 mg/dL (70-110)
[2021-02-08] MEDS: heparin 5,000 unit/mL INJ 1 mL 5000 UNIT SUBCUT ×2 (08:37→15:29)
[2021-02-08] MEDS: hyDRALAzine 50 mg Tablet PO ×2 (08:38→15:29)
[2021-02-08] MEDS: dilTIAZem ER (24HR) 120 mg Capsule PO (08:38)
[2021-02-08] MEDS: tamsulosin 0.4 mg Capsule 0.8 MG PO (08:38)
[2021-02-08] MEDS: cloNIDine 0.1 mg Tablet PO ×2 (08:38→15:29)
[2021-02-08] MEDS: insulin glargine 100 units/1 mL 15 UNIT SUBCUT (08:39)
[2021-02-08] MEDS: warfarin 5 mg Tablet 7.5 MG PO (08:39)
--- NOTE | 2021-02-08 10:03 | PC.CHAP ---
Pastoral Care Encounter/Spiritual Assessment Type of Contact [] Declined seat maker visit [] Patient/Family/Request visit [] Outpatient visit [] Follow-up visit [] Physician referral [] Code/Alert [x] Routine visit [] Staff referral [] Actively dying [] Patient sleeping [] Family support [] [] Out of room [] Palliative care [] [x] Receiving care in room [] Pre-surgical visit [] Trauma [] Long length of stay [] ICU visit [] Other: Relational/Emotional Strength [] Patient feels connected with others/family/visitors/staff [] Distress [] Loneliness/isolation [] Abandonment Spirituality of Patient [] Person of [place] [] Attends [employer] of their [place] [] Believes in Prayer [] Reads Bible or Catholic materials [] There are Spiritual issues to be addressed [employer] Representative Interventions [] Prayer [] Active listening [] Non-anxious presence [] Spiritual/emotional support [] Crisis/trauma care [] Spiritual counseling [] Bereavement support [] Provided bereavement packet [] Provided Bible/devotional materials [] Provided toy/stuffed animal, coloring book to patient or family member [] Provided Communion [] Anointing/[place] [] Salvation [] Completed spiritual assessment [] Other: Impact on Illness or Injury [] Angry [] Fearful [] Anxious [] Often cries [] Exhaustion [] Unable to work [] Unable to attend hoahaoism [] Unable to walk/stand [] Unable to read [] Unable to drive [] Unable to eat/drink [] Unable to sleep [] Unable to be with family [] Patient intubated [] Other: Summary Time spent with patient
[2021-02-08] MEDS: sodium chloride 0.9% 1,000 ML 75 ML IV (10:58)
[2021-02-08 11:00] LABS: Glucose Point of Care 152 mg/dL (70-110)
--- NOTE | 2021-02-08 12:16 | PM.DCS ---
Discharge Providers Date of Admission: 02/07/21 05:59 Date of Discharge: February 08, 2021 Attending Provider at Admission: Komal Candelario MD Attending Provider at Discharge: Lebron Triana Primary Care Provider: Destiny Bates MD Diagnoses at Discharge Discharge Diagnosis (1) Ileus: Status: Acute (2) Acute dehydration: Status: Acute (3) Atrial fibrillation: Status: Chronic Reason for Visit Reason for Visit: diarhea, dehydration Hospital Course Hospital Course Pleasant 70-year-old gentleman with A. fib, DVT on anticoagulation, diabetes, CAD, history of CVA, HTN, other chronic comorbidities was admitted for assessment management due to diarrhea, dehydration, cirrhosis of vomiting at home. CT abdomen pelvis on presentation with noted ileus, mild cardiomegaly, fatty liver infiltration. Cholelithiasis without cholecystitis. Mild atherosclerotic disease of aorta without aneurysm. Obstructive uropathy from enlarged prostate. Acute kidney injury on presentation, noted presentation, received IV rehydration, was maintained on bowel rest. Trial of clear liquids yesterday. Acute kidney injury noted on presentation, creatinine 1.5, resolved. Creatinine down to 1.1. Shortly after coming the hospital diarrhea had resolved, so stool sample could not initially be collected. Collected late last night, C. difficile so far negative. Bacterial and parasite panels should be coming back this afternoon. He otherwise is doing better, tolerating clear liquid diet. Wants to advance to something more substantial subsequently with return home today. Lisinopril for now is on hold until renal function found stabilized. Of note INR noted subtherapeutic at 1.47. Given extra dose of warfarin 2 mg up at his usual dose. Please reassess at next appointment, conjunctivitis for usual INR target. While in the hospital insulin Lantus dose initially held, then decreased to 10 units twice daily, then increased to 15 units twice daily with glucose in the 120s. At home previously on 45 units twice daily. For now asked to transition her to 20 units twice daily, continue to monitor glucose, avoid hypoglycemia. He states he will be reaching out his brother to assist him with diet and other any other needs. Physical Exam Const: COMMON NORMALS: no acute distress, patient oriented x3 and alert GENERAL APPEARANCE: cooperative and comfortable ORIENTATION/CONSCIOUSNESS: Yes awake OTHER: Pleasant, conversant. HENMT: COMMON NORMALS: oropharynx normal Neck/C-Spine: COMMON NORMALS: no JVD Resp: COMMON NORMALS: normal respiratory effort and clear to auscultation bilaterally AUSCULTATION: clear to auscultation bilaterally Cardio: COMMON NORMALS: no JVD, regular rhythm, S1 normal heart sound present, S2 normal heart sound present and No murmurs present (Cardio) RHYTHM: regular rhythm HEART SOUNDS: S1 normal heart sound present and S2 normal heart sound present GI: COMMON NORMALS: Normal to inspection, nondistended, normoactive bowel sounds present, Soft to palpation and non-tender PALPATION: Yes Soft to palpation Extremity: COMMON NORMALS: no joint enlargement and no pedal edema Neuro: COMMON NORMALS: patient oriented x3 and moves all extremities SENSORIUM/ORIENTATION: Yes alert Skin: COMMON NORMALS: no rashes or lesions noted GENERAL SKIN EXAM: no rashes or lesions noted Discharge Data Data Completed and Pending: Completed Studies During Hospitalization Category Date Time Status CT abdomen pelvis w con* [id number] Urge nt Cat Scan 02/07/21 02:01 Completed Pending at discharge Category Date Time Status Enteric Bacterial Panel by PCR Rout ine Lab 02/07/21 17:50 Received Enteric Parasite Panel by PCR Routi ne Lab 02/07/21 17:50 Received Labs from last 24 hours 02/08/21 02/08/21 02/08/21 10:53 06:24 05:14 WBC RBC Hgb Hct MCV MCH MCHC RDW Plt Count MPV Neut % (Auto) Lymph % (Auto) [place] % (Auto) Eos % (Auto) Baso % (Auto) Neut # (Auto) Lymph # (Auto) [place] # (Auto) Eos # (Auto) Baso # (Auto) Nucleated RBC % (a uto) Nucleated RBCs # Sodium 140 Potassium 4.0 Chloride 105 Carbon Dioxide 25 Anion Gap 14.0 BUN 12 Creatinine 1.1 GFR Calculation 66.6 L Glucose 126 H POC Glucose 152 H 142 H Calculated Osmolal ity 291 Calcium 8.4 L 02/08/21 02/08/21 02/07/21 05:14 01:32 21:11 WBC 7.9 RBC 5.39 H Hgb 16.7 H Hct 49.2 MCV 91.3 MCH 31.0 MCHC 33.9 RDW 11.9 L Plt Count 249 MPV 9.3 Neut % (Auto) 72.9 Lymph % (Auto) 14.0 [place] % (Auto) 9.4 Eos % (Auto) 2.4 Baso % (Auto) 0.8 Neut # (Auto) 5.73 Lymph # (Auto) 1.1 [place] # (Auto) 0.7 Eos # (Auto) 0.2 Baso # (Auto) 0.1 Nucleated RBC % (a uto) 0 Nucleated RBCs # 0.0 Sodium Potassium Chloride Carbon Dioxide Anion Gap BUN Creatinine GFR Calculation Glucose POC Glucose 151 H 224 H Calculated Osmolal ity Calcium 02/07/21 16:51 WBC RBC Hgb Hct MCV MCH MCHC RDW Plt Count MPV Neut % (Auto) Lymph % (Auto) [place] % (Auto) Eos % (Auto) Baso % (Auto) Neut # (Auto) Lymph # (Auto) [place] # (Auto) Eos # (Auto) Baso # (Auto) Nucleated RBC % (a uto) Nucleated RBCs # Sodium Potassium Chloride Carbon Dioxide Anion Gap BUN Creatinine GFR Calculation Glucose POC Glucose 137 H Calculated Osmolal ity Calcium Vitals: Last Vital Signs Temp 97.8 F 02/08/21 11:54 Pulse 84 02/08/21 11:54 Resp 17 02/08/21 11:54 BP 169/94 02/08/21 11:54 Pulse Ox 95 02/08/21 11:54 Discharge Plan Discharge Patient Disposition: Home Condition: Stable Prescriptions: Continued ondansetron 4 mg tablet,disintegrating 4 mg PO Q8H PRN (Reason: nausea and vomiting) Qty: 20 RF: 0 potassium chloride 10 mEq capsule, extended release 10 meq PO QAM RF: 0 atorvastatin 20 mg tablet 20 mg PO QPM RF: 0 warfarin 7.5 mg tablet 7.5 mg PO DAILY@16 RF: 0 clonidine HCl 0.3 mg tablet 0.3 mg PO TID RF: 0 tamsulosin 0.4 mg capsule 0.4 mg PO BEDTIME RF: 0 hydralazine 100 mg tablet 100 mg PO TID RF: 0 diltiazem HCl 120 mg capsule,extended release 24hr 120 mg PO QAM RF: 0 furosemide 20 mg tablet 20 mg PO QAM PRN (Reason: Edema) RF: 0 gabapentin 300 mg Capsule 300 mg PO TID RF: 0 semaglutide 0.25 mg or 0.5 mg(2 mg/1.5 mL) Pen Injector 0.5 mg SUBCUT Q7D RF: 0 garlic Tablet 1 tab PO DAILY RF: 0 calcium 1 tab PO DAILY RF: 0 Changed Lantus Solostar U-100 Insulin 100 unit/mL (3 mL) Insulin Pen 20 unit SUBCUT BID Qty: 0 RF: 0 Held lisinopril 20 mg tablet 20 mg PO BID RF: 0 Hold Instructions: Resume on 02/15/21. Discharge Orders: Discharge Order (Routine); Ordered 02/08/21 Ordered By: Lebron Triana Referrals: Destiny Bates MD [Primary Care Provider] - 4-7 days Discharge Diet: Advance as tolerated and Full LIquid Discharge Activity: Increase activity as tolerated Activity Restrictions/Additional Instructions: Return for fever greater than 100, vomiting liquids or medications, worsening pain, any other concerning symptoms. Do not take further antidiarrheal medication as your bowels need to continue to move. Drink plenty of liquids for the next 48 hours Please note your INR was 1.4 in the hospital. Continue to work with your primary provider to achieve target INR is 2-3. Please note you are given an extra dose of warfarin 2 mg on top of your usual dose. Please have your primary doctor recheck your kidney function next appointment. Please hold lisinopril for now due to noted acute kidney injury on presentation. This is so far resolved, please discuss with your primary doctor regarding restarting lisinopril once her kidney function is found stable. Please continue optimization of diabetes control. For now please reduce your Lantus dose to 20 units twice daily to avoid low blood glucose. In case your blood glucose is less than 70, please take sugary snacks, recheck your glucose level in 15-20 minutes, and if still not increasing, please seek medical attention. If your glucose is below 100 at any time, please decrease Lantus dose in half. Discharge Attestations Time Spent in Discharge Care*: greater than 30 min Status at Discharge: Cognitive status at discharge: cognitively intact, Behavioral status at discharge: cooperative, Quality Metrics Clinical Quality Measures During this hospital stay, did patient experience: None Coding Level of Care Code Acute Chg FW DC note Diagnoses Ileus K56.7 Acute dehydration E86.0 Atrial fibrillation I48.91
[2021-02-08] MEDS: warfarin 2 mg Tablet PO (13:20)
--- NOTE | 2021-02-08 15:38 | PC.NURSE ---
called all three of patient's family contact numbers for patient a ride home. no contact made. will continue to try to contact patient's brother.
[2021-02-08 16:55] LABS: Glucose Point of Care 278 mg/dL (70-110)
== END 2021-02-08 17:11 | disposition home or self-care (01) | DRG 389 ==
LOC: ER 02-07 03:47 → MEDSURG 02-07 07:05
PROVIDERS: Nurse Practitioner Family; Admitting Provider Internal Medicine; Emergency Provider Emergency Medicine; PCP Family Medicine; Visit Provider Internal Medicine
DX: K56.7 Ileus, unspecified (principal); I48.20 Chronic atrial fibrillation, unspecified; N17.9 Acute kidney failure, unspecified; N13.8 Other obstructive and reflux uropathy; E86.0 Dehydration; Z86.73 Personal history of transient ischemic attack (TIA), and cerebral infarction without residual deficits; E78.5 Hyperlipidemia, unspecified; E11.22 Type 2 diabetes mellitus with diabetic chronic kidney disease; I12.9 Hypertensive chronic kidney disease with stage 1 through stage 4 chronic kidney disease, or unspecified chronic kidney disease; N18.9 Chronic kidney disease, unspecified; E11.42 Type 2 diabetes mellitus with diabetic polyneuropathy; E11.65 Type 2 diabetes mellitus with hyperglycemia; K76.0 Fatty (change of) liver, not elsewhere classified; K80.20 Calculus of gallbladder without cholecystitis without obstruction; N40.1 Benign prostatic hyperplasia with lower urinary tract symptoms; I25.10 Atherosclerotic heart disease of native coronary artery without angina pectoris; F32.9 Major depressive disorder, single episode, unspecified; Z86.718 Personal history of other venous thrombosis and embolism; D75.1 Secondary polycythemia; Z87.891 Personal history of nicotine dependence; Z79.4 Long term (current) use of insulin; Z79.01 Long term (current) use of anticoagulants; K52.9 Noninfective gastroenteritis and colitis, unspecified
CPT/HCPCS: 36415; 36416; 74177; 80048; 80053; 81000; 81001; 82962; 83690; 85025; 85610; 87493; 87506; 96360; 96372; 99285; J1644; J1815 ×2; J2765; J7030; Q9967

== ENCOUNTER 2021-02-16 11:41 | Observation (INO) | payer MEDICARE, SELFPAY ==
[2021-02-16] VITALS (7 sets, daily range): BP systolic 135–171; BP diastolic 72–109; PULSE 80–117; RESP 16–18; TEMP 36.9–37; O2SAT 94–97; BMI 30.4
--- NOTE | 2021-02-16 13:05 | W.ED.MALEGU ---
HPI - Male Genitourinary General: Chief complaint: Urogenital-Male Stated complaint: Blood in urine Time Seen by Provider: 02/16/21 13:02 History of Present Illness: HPI Narrative: This patient is a 70-year-old male who presents to the emergency department with complaint of blood in urine. Patient also has pain with urination. Patient recently was in the hospital for dehydration. Discharged home patient has a history of atrial fibrillation and diabetes. Patient states otherwise is pretty healthy. States this urinary issues been happening for the past 2 days. Patient states he does take Coumadin for history of atrial fibrillation. Will do medical evaluation treat as needed Complaint: dysuria Onset (ago): day(s) Duration: intermittent Severity: moderate Quality: burning Relieving factors: urination Associated symptoms: Reports hematuria; Deny dysuria, nausea or vomiting Review of Systems General: Reports: 10 or more systems reviewed and unremarkable except in HPI and below Const: Denies: fever(s), chills, body aches or fatigue Eyes: Denies: change in vision or blurry vision ENMT: Denies: throat pain, hoarseness or mouth pain Card: Denies: chest pain, palpitations, irregular heart rhythm, edema, swelling of feet/ankles or lightheadedness Resp: Denies: dyspnea, productive cough, non-productive cough, wheezing or pain on inspiration GI: Denies: abdominal pain, nausea or vomiting : Reports: hematuria; Denies: flank pain, dysuria, urinary frequency, urinary urgency or urinary hesitancy Musc: Denies: neck pain, back pain, extremity pain, extremity swelling, joint pain, joint swelling, joint redness, joint warmth or limited range of motion Skin/Breast: Denies: rash, pruritus, erythema or skin tenderness Neuro: Denies: headache(s), numbness in extremities or weakness in extremities Psych: Denies: anxiety or depression PFS ED PFSH: Medical History Atrial fibrillation Atrial fibrillation with rapid ventricular response CAD (coronary artery disease) Chronic anticoagulation CKD (chronic kidney disease) Baseline creatinine 1.9 CVA (cerebral vascular accident) 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 Depression DVT (deep venous thrombosis) Dyslipidemia HTN (hypertension) Peripheral neuropathy Polycythemia Poorly controlled type 2 diabetes mellitus Surgical History No pertinent past surgical history Family History Other CAD (coronary artery disease) Cancer Social History Smoking and tobacco status: former smoker Alcohol intake: never Caregiver/support person: No Household members: none Housing: House Physical Exam Const: COMMON NORMALS: no acute distress, average body habitus, patient oriented x3, no limitations, healthy appearing, alert and well nourished HENMT: COMMON NORMALS: normocephalic, atraumatic, hearing grossly normal bilaterally, external ears normal, EAC's normal, TM's normal bilaterally, Normal external nose present, Normal nasal mucous membranes and turbinates present, moist oral mucous membranes, oropharynx normal, dentition normal and gingiva normal HEAD & SCALP: normocephalic and atraumatic NOSE: Normal external nose present and Normal nasal mucous membranes and turbinates present EXTERNAL EAR: Yes external ears normal EXTERNAL AUDITORY CANAL: EAC's normal TYMPANIC MEMBRANE: TM's normal bilaterally Neck/C-Spine: COMMON NORMALS: full ROM, no lymphadenopathy, supple, no meningeal signs, no JVD, Thyroid normal and No carotid bruits THYROID: Thyroid normal Chest: COMMONS NORMALS: normal inspection of the chest, normal palpation of entire chest wall, normal inspection of the breasts and normal palpation of the breasts Breast/axilla inspection: Yes normal inspection of the breasts BREAST/AXILLA PALPATION: Yes normal palpation of the breasts Resp: COMMON NORMALS: normal respiratory effort, No retractions, No use of accessory muscles, clear to auscultation bilaterally and percussion normal AUSCULTATION: clear to auscultation bilaterally PERCUSSION: percussion normal Cardio: COMMON NORMALS: no JVD, regular rate, regular rhythm, S1 normal heart sound present, S2 normal heart sound present, No gallops present (Cardio), No clicks present (Cardio), No murmurs present (Cardio), No rub (Cardio) and Peripheral pulses 2+ throughout RATE: regular rate RHYTHM: regular rhythm HEART SOUNDS: S1 normal heart sound present and S2 normal heart sound present PERIPHERAL PULSES: Peripheral pulses 2+ throughout GI: COMMON NORMALS: Normal to inspection, nondistended, normoactive bowel sounds present, Soft to palpation, non-tender, No hepatosplenomegaly present, no masses and no bruits PALPATION: Yes Soft to palpation and Yes No hepatosplenomegaly present : COMMON NORMALS: Yes no CVA tenderness BLADDER/KIDNEY EXAM: Yes no CVA tenderness Back/Pelvis: COMMON NORMALS: no CVA tenderness, thoracic and lumbar spine normal to inspection, no thoracic nor lumbar tenderness, thoraco-lumbar ROM normal and straight leg raise negative bilaterally Extremity: COMMON NORMALS: normal to inspection, full ROM, capillary refill normal, no joint enlargement, no clubbing, cyanosis or edema, no calf tenderness and no pedal edema Neuro: COMMON NORMALS: patient oriented x3 SENSORIUM/ORIENTATION: Yes alert MENINGEAL SIGNS: Yes no meningeal signs Course Reevaluation(s): Reevaluation #1: I did discuss at length with patient and family about findings concerning mild dehydration and acute hyperglycemia and dysuria. Patient will be admitted to the floor patient states Time: 16:30 Consultations: Consultation #1: I did discuss at length with Dr. Humphrey hospitalist. He is agreeable see patient he will see patient write additional orders. Time: 16:30 Vital Signs: Vital signs: Vital Signs Temperature 98.4 F 02/16/21 12:45 Pulse Rate 84 02/16/21 15:50 Respiratory Rate 16 02/16/21 15:50 Blood Pressure 152/109 02/16/21 15:50 Pulse Oximetry 97 02/16/21 15:50 MDM - Male MDM Narrative: Medical decision making narrative: This patient is a 70-year-old male who presents to the emergency department with complaint of blood in urine. Patient also has pain with urination. Patient recently was in the hospital for dehydration. Discharged home patient has a history of atrial fibrillation and diabetes. Patient states otherwise is pretty healthy. States this urinary issues been happening for the past 2 days. Patient states he does take Coumadin for history of atrial fibrillation. Patient has acute hyperglycemia. Glucose of 452 and mild dehydration. Patient's glucose regimen was changed at his previous admission now uncontrollable glucoses. Patient be admitted back to the hospital for observation Dr. Rosas is a Lab Data: Labs: Lab Results 02/16/21 02/16/21 02/16/21 Range/Units 13:40 13:40 13:40 WBC 14.7 H (4.0-10.0) 10^3/ uL RBC 5.79 H (4.1-5.3) 10^6/u L Hgb 18.2 H (11.7-16.6) g/dL Hct 51.8 (42.0-52.0) % MCV 89.5 (80-94) fL MCH 31.4 (28.0-34.0) pg MCHC 35.1 (30.0-36.0) g/dL RDW 12.1 (12.1-15.1) % Plt Count 307 (130-400) 10^3/c mm MPV 9.7 (7.4-10.4) fL Neut % (Auto) 82.7 % Lymph % (Auto) 8.5 % Braxton % (Auto) 6.9 % Eos % (Auto) 0.7 % Baso % (Auto) 0.7 % Neut # (Auto) 12.18 H (1.8-7.7) 10^3/u L Lymph # (Auto) 1.3 (0.8-4.8) 10^3/u L Braxton # (Auto) 1.0 H (0.2-0.9) 10^3/u L Eos # (Auto) 0.1 (0.0-0.8) 10^3/u L Baso # (Auto) 0.1 (0.0-0.1) 10^3/u L Nucleated RBC % (a uto) 0 % Nucleated RBCs # 0.0 /100WBC PT 13.50 (12.1-14.9) SECO NDS INR 1.00 (0.8-1.2) APTT 21.7 L (23.9-36.7) SECO NDS Sodium 132 L (136-145) mmol/L Potassium 5.0 (3.5-5.1) mmol/L Chloride 93 L (98-107) mmol/L Carbon Dioxide 25 (22-29) mmol/L Anion Gap 19.0 (5-19) BUN 34 H (8-23) mg/dL Creatinine 1.4 H (0.7-1.2) mg/dL GFR Calculation 50.4 L (90-130) mL/min Glucose 452 H (65-115) mg/dL Calculated Osmolal ity 301 H (285-295) mOsm/k g Calcium 9.4 (8.5-10.5) mg/dL Total Bilirubin 0.7 (0.15-1.2) mg/dL AST 15 (0-40) U/L ALT 21 (0-41) U/L Alkaline Phosphata se 137 H (40-130) IU/L Total Protein 7.1 (6.6-8.7) g/dL Albumin 3.7 (3.5-5.2) g/dL Globulin 3.4 (1.3-4.6) g/dL Urine Color (Yellow) Urine Appearance (CLEAR) Urine pH (5-7) Ur Specific Gravit y (1.005-1.030) Urine Protein (Negative) Urine Glucose (UA) (Normal) Urine Ketones (Negative) Urine Blood (Negative) Urine Nitrate (Negative) Urine Bilirubin (Negative) Urine Urobilinogen (Negative) mg/dL Ur Leukocyte Ibeth ase (Negative) Urine RBC (0-2) /hpf Urine WBC (0-5) /hpf Ur Squamous Epith Cells (0-5) /hpf Amorphous Sediment Urine Bacteria (NONE) /hpf // Range/Units 15:33 WBC (4.0-10.0) 10^3/ uL RBC (4.1-5.3) 10^6/u L Hgb (11.7-16.6) g/dL Hct (42.0-52.0) % MCV (80-94) fL MCH (28.0-34.0) pg MCHC (30.0-36.0) g/dL RDW (12.1-15.1) % Plt Count (130-400) 10^3/c mm MPV (7.4-10.4) fL Neut % (Auto) % Lymph % (Auto) % Braxton % (Auto) % Eos % (Auto) % Baso % (Auto) % Neut # (Auto) (1.8-7.7) 10^3/u L Lymph # (Auto) (0.8-4.8) 10^3/u L Braxton # (Auto) (0.2-0.9) 10^3/u L Eos # (Auto) (0.0-0.8) 10^3/u L Baso # (Auto) (0.0-0.1) 10^3/u L Nucleated RBC % (a uto) % Nucleated RBCs # /100WBC PT (12.1-14.9) SECO NDS INR (0.8-1.2) APTT (23.9-36.7) SECO NDS Sodium (136-145) mmol/L Potassium (3.5-5.1) mmol/L Chloride (98-107) mmol/L Carbon Dioxide (22-29) mmol/L Anion Gap (5-19) BUN (8-23) mg/dL Creatinine (0.7-1.2) mg/dL GFR Calculation (90-130) mL/min Glucose (65-115) mg/dL Calculated Osmolal ity (285-295) mOsm/k g Calcium (8.5-10.5) mg/dL Total Bilirubin (0.15-1.2) mg/dL AST (0-40) U/L ALT (0-41) U/L Alkaline Phosphata se (40-130) IU/L Total Protein (6.6-8.7) g/dL Albumin (3.5-5.2) g/dL Globulin (1.3-4.6) g/dL Urine Color Yellow (Yellow) Urine Appearance Clear (CLEAR) Urine pH 5 (5-7) Ur Specific Gravit y 1.015 (1.005-1.030) Urine Protein 2+ H (Negative) Urine Glucose (UA) 4+ H (Normal) Urine Ketones Negative (Negative) Urine Blood 3+ H (Negative) Urine Nitrate Negative (Negative) Urine Bilirubin Neg (Negative) Urine Urobilinogen Norm (Negative) mg/dL Ur Leukocyte Ibeth ase Negative (Negative) Urine RBC 5-10 H (0-2) /hpf Urine WBC None (0-5) /hpf Ur Squamous Epith Cells 0-4 H (0-5) /hpf Amorphous Sediment Not Reportable Urine Bacteria None (NONE) /hpf Discharge Plan Discharge Patient Disposition: Placed in Observation Clinical Impression: Acute hyperglycemia, Dehydration, Hematuria, Dysuria Condition: Stable Prescriptions: No Action ondansetron 4 mg tablet,disintegrating 4 mg PO Q8H PRN (Reason: nausea and vomiting) Qty: 20 RF: 0 potassium chloride 10 mEq capsule, extended release 10 meq PO QAM RF: 0 atorvastatin 20 mg tablet 20 mg PO QPM RF: 0 warfarin 7.5 mg tablet 7.5 mg PO DAILY@16 RF: 0 lisinopril 20 mg tablet 20 mg PO BID RF: 0 Hold Instructions: Resume on 02/15/21. clonidine HCl 0.3 mg tablet 0.3 mg PO TID RF: 0 tamsulosin 0.4 mg capsule 0.4 mg PO BEDTIME RF: 0 hydralazine 100 mg tablet 100 mg PO TID RF: 0 diltiazem HCl 120 mg capsule,extended release 24hr 120 mg PO QAM RF: 0 furosemide 20 mg tablet 20 mg PO QAM PRN (Reason: Edema) RF: 0 gabapentin 300 mg Capsule 300 mg PO TID RF: 0 semaglutide 0.25 mg or 0.5 mg(2 mg/1.5 mL) Pen Injector 0.5 mg SUBCUT Q7D RF: 0 garlic Tablet 1 tab PO DAILY RF: 0 calcium 1 tab PO DAILY RF: 0 Lantus Solostar U-100 Insulin 100 unit/mL (3 mL) Insulin Pen 20 unit SUBCUT BID Qty: 0 RF: 0 Referrals: Destiny Bates MD [Primary Care Provider] - Coding Level of Care Code ED 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
[2021-02-16] MEDS: sodium chloride 0.9% 500 ML IV (13:47)
[2021-02-16 13:54] LABS: Basophils # 0.1 10^3/uL (0.0-0.1); Basophils % 0.7 %; Eosinophils # 0.1 10^3/uL (0.0-0.8); Eosinophils % 0.7 %; Hematocrit 51.8 % (42.0-52.0); Hemoglobin 18.2 g/dL (11.7-16.6); Lymphocytes # 1.3 10^3/uL (0.8-4.8); Lymphocytes % 8.5 %; Mean Corpuscular HGB Conc 35.1 g/dL (30.0-36.0); Mean Corpuscular Hemoglobin 31.4 pg (28.0-34.0); Mean Corpuscular Volume 89.5 fL (80-94); Mean Platelet Volume 9.7 fL (7.4-10.4); Monocytes % 6.9 %; Neutrophils # 12.18 10^3/uL (1.8-7.7); Neutrophils % 82.7 %; Nucleated Red Blood Cells % 0 %; Platelet Count 307 10^3/cmm (130-400); Red Blood Count 5.79 10^6/uL (4.1-5.3); Red Cell Distribution Width 12.1 % (12.1-15.1); White Blood Count 14.7 10^3/uL (4.0-10.0)
[2021-02-16 14:02] LABS: Partial Thromboplastin Time 21.7 SECONDS (23.9-36.7)
[2021-02-16 14:07] LABS: Alanine Aminotransferase 21 U/L (0-41); Albumin Level 3.7 g/dL (3.5-5.2); Alkaline Phosphatase 137 IU/L (40-130); Aspartate Amino Transferase 15 U/L (0-40); Blood Urea Nitrogen 34 mg/dL (8-23); Calcium 9.4 mg/dL (8.5-10.5); Carbon Dioxide 25 mmol/L (22-29); Chloride 93 mmol/L (98-107); Globulin 3.4 g/dL (1.3-4.6); Glomerular Filtration Rate 50.4 mL/min (90-130); Glucose 452 mg/dL (65-115); Osmolality Calculated 301 mOsm/kg (285-295); Sodium 132 mmol/L (136-145); Total Bilirubin 0.7 mg/dL (0.15-1.2); Total Protein 7.1 g/dL (6.6-8.7)
[2021-02-16 16:05] LABS: Protein Urine 2+ (Negative); Specific Gravity, Urine 1.015 (1.005-1.030); Urine Appearance Clear (CLEAR); Urine Color Yellow (Yellow); pH Urine 5 (5-7)
[2021-02-16 16:06] LABS: Add Urine Microscopic? YES; Bilirubin Urine Neg (Negative); Blood Urine 3+ (Negative); Glucose Urine UA 4+ (Normal); Ketones Urine Negative (Negative); Leukocyte Esterase Urine Negative (Negative); Nitrate Urine Negative (Negative); Squamous Epithelial Cell Urine 0-4 /hpf (0-5); Urobilinogen Urine Norm (Negative)
--- NOTE | 2021-02-16 17:53 | PM.HP ---
Providers/Chief Complaint Primary Care Provider: Destiny Bates MD Chief Complaint: Blood in urine History of Present Illness Luis Mcintosh is a 70 year old male history of atrial fibrillation on anticoagulation, history of DVT, diabetes presents to the emergency room with complaints of hematuria. He also reports some dysuria. He denies any flank pain or fevers. Patient was also noted to have hyperglycemia. Denies fevers chills nausea abdominal pain flank pain or diarrhea. Review of Systems General: Reports: 10 or more systems reviewed and unremarkable except in HPI and below Const: Denies: fever(s) or chills Eyes: Denies: change in vision ENMT: Denies: throat pain or mouth pain Card: Denies: chest pain or palpitations Resp: Denies: dyspnea or productive cough GI: Denies: abdominal pain or nausea : Denies: flank pain or difficulty urinating Musc: Denies: neck pain or back pain Skin/Breast: Denies: rash or pruritus Neuro: Denies: headache(s) or numbness in extremities Psych: Denies: anxiety or depression Endo: Denies: polyuria Loco/Lymph: Denies: easy bruising Medications/Allergies Home Medications Medication Instructions Recorded Confirmed Last Taken Type atorvastatin 20 mg PO QPM 04/04/20 02/16/21 02/15/21 History clonidine HCl 0.3 mg PO TID 04/04/20 02/16/21 02/16/21 History diltiazem HCl 120 mg PO QAM 04/04/20 02/16/21 02/16/21 History furosemide 20 mg PO QAM PRN 04/04/20 02/16/21 04/03/20 History hydralazine 100 mg PO TID 04/04/20 02/16/21 02/16/21 History lisinopril 20 mg PO BID 04/04/20 02/16/21 02/16/21 History potassium chloride 10 meq PO QAM 04/04/20 02/16/21 02/16/21 History tamsulosin 0.4 mg PO BEDTIME 04/04/20 02/16/21 02/15/21 History warfarin 7.5 mg PO DAILY@16 04/04/20 02/16/21 02/15/21 History gabapentin 300 mg PO TID 01/20/21 02/16/21 02/16/21 History semaglutide 0.5 mg SUBCUT Q7D 01/20/21 02/16/21 02/11/21 History ondansetron 4 mg disintegrating 4 mg PO Q8H PRN #20 tab 02/06/21 02/16/21 Unknown Rx tablet calcium 1 tab PO DAILY 02/07/21 02/16/21 02/16/21 History garlic 1 tab PO DAILY 02/07/21 02/16/21 02/16/21 History Lantus Solostar U-100 Insulin 20 unit SUBCUT BID #0 ml 02/08/21 02/16/21 02/16/21 Rx Allergies Allergy/AdvReac Type Severity Reaction Status Date / Time Penicillins Allergy ALGY-Rash Verified 02/07/21 10:45 PFSH Acute PFSH: Medical History Atrial fibrillation Atrial fibrillation with rapid ventricular response CAD (coronary artery disease) Chronic anticoagulation CKD (chronic kidney disease) Baseline creatinine 1.9 CVA (cerebral vascular accident) 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 Depression DVT (deep venous thrombosis) Dyslipidemia HTN (hypertension) Peripheral neuropathy Polycythemia Poorly controlled type 2 diabetes mellitus Surgical History No pertinent past surgical history Family History Other CAD (coronary artery disease) Cancer Social History Smoking and tobacco status: former smoker Alcohol intake: never Caregiver/support person: No Household members: none Housing: House Vitals/I&O/Wt Last Vital Signs Temp 98.4 F 02/16/21 12:45 Pulse 80 02/16/21 17:12 Resp 18 02/16/21 17:12 BP 137/105 02/16/21 17:12 Pulse Ox 95 02/16/21 17:12 Weight last 48 hrs Weight 200 lb Physical Exam Const: COMMON NORMALS: no acute distress and patient oriented x3 Chest: COMMONS NORMALS: normal inspection of the chest and normal palpation of entire chest wall Resp: COMMON NORMALS: normal respiratory effort and No retractions Cardio: COMMON NORMALS: no JVD and regular rate GI: COMMON NORMALS: Normal to inspection, nondistended, normoactive bowel sounds present and Soft to palpation Neuro: COMMON NORMALS: patient oriented x3 and CN's II-XII intact bilaterally Data : 02/16/21 13:40 02/16/21 13:40 A&P Assessment and plan (1) Acute hyperglycemia: Status: Acute (2) Dehydration: Status: Acute (3) Hematuria: Status: Acute Additional A&P Information #hyperglycemia --fsbs, ssi, check AIC --continue lantus #hematuria --check renal US --IVF, consider freeman #CHRISTINE --IVF, repeat screat #afib --hold anticoagulation Attestations Medical Necessity Statement*: Luis Ellison Mcintosh's hospital stay will require greater than 2 midnights for hyperglycemia Coding Level of Care Code Acute 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
[2021-02-16] MEDS: insulin regular-human 100 units/1 mL 10 UNIT IVP (18:52)
[2021-02-16 19:39] LABS: Glucose Point of Care 252 mg/dL (70-110)
[2021-02-16] MEDS: sodium chloride 0.9% 1,000 ML 100 ML IV (20:16)
[2021-02-16 20:27] LABS: Estmated Average Glucose 217; Hemoglobin A1C 9.2 % (4.0-6.0)
[2021-02-16 21:09] LABS: Glucose Point of Care 370 mg/dL (70-110)
--- NOTE | 2021-02-16 23:57 | PC.NURSE ---
pt instructed to urinate in urinal - urine noted to be of straw color with minimal evidence of blood. no gross hematuria. will hold off on placement of freeman per dr mobley telephone order.
[2021-02-17] VITALS: BP 193/95; PULSE 113; RESP 16; TEMP 37.1; O2SAT 94
[2021-02-17] MEDS: labetalol 5 mg/mL SDV 20mL 10 MG IVP (02:50)
[2021-02-17 04:05] VITALS: BP 160/108; PULSE 97; RESP 20; TEMP 36.7; O2SAT 98
[2021-02-17] MEDS: dilTIAZem ER (24HR) 120 mg Capsule PO (05:23)
[2021-02-17 06:34] LABS: Glucose Point of Care 298 mg/dL (70-110)
[2021-02-17 07:18] LABS: Basophils # 0.1 10^3/uL (0.0-0.1); Basophils % 0.8 %; Eosinophils # 0.3 10^3/uL (0.0-0.8); Eosinophils % 2.7 %; Hematocrit 50.8 % (42.0-52.0); Hemoglobin 17.7 g/dL (11.7-16.6); Lymphocytes # 1.5 10^3/uL (0.8-4.8); Lymphocytes % 15.8 %; Mean Corpuscular HGB Conc 34.8 g/dL (30.0-36.0); Mean Corpuscular Hemoglobin 31.4 pg (28.0-34.0); Mean Corpuscular Volume 90.2 fL (80-94); Monocytes # 0.8 10^3/uL (0.2-0.9); Monocytes % 8.1 %; Neutrophils # 6.97 10^3/uL (1.8-7.7); Neutrophils % 72.1 %; Nucleated Red Blood Cells % 0 %; Platelet Count 302 10^3/cmm (130-400); Red Blood Count 5.63 10^6/uL (4.1-5.3); Red Cell Distribution Width 12.3 % (12.1-15.1); White Blood Count 9.7 10^3/uL (4.0-10.0)
[2021-02-17 07:31] LABS: Alanine Aminotransferase 19 U/L (0-41); Alkaline Phosphatase 92 IU/L (40-130); Anion Gap 14.2 (5-19); Aspartate Amino Transferase 17 U/L (0-40); Blood Urea Nitrogen 27 mg/dL (8-23); Calcium 8.6 mg/dL (8.5-10.5); Carbon Dioxide 25 mmol/L (22-29); Chloride 101 mmol/L (98-107); Globulin 3.1 g/dL (1.3-4.6); Glomerular Filtration Rate 66.6 mL/min (90-130); Glucose 288 mg/dL (65-115); Magnesium 1.9 mg/dL (1.7-2.3); Osmolality Calculated 298 mOsm/kg (285-295); Potassium 4.2 mmol/L (3.5-5.1); Sodium 136 mmol/L (136-145); Total Bilirubin 0.7 mg/dL (0.15-1.2); Total Protein 6.1 g/dL (6.6-8.7)
[2021-02-17 07:32] VITALS: BP 186/111; PULSE 100; RESP 14; TEMP 36.8; O2SAT 95
[2021-02-17 07:33] VITALS: BP 161/116
--- NOTE | 2021-02-17 07:33 | PC.NURSE ---
I reported the high bp to the nurse
[2021-02-17] MEDS: sodium chloride 0.9% 1,000 ML 100 ML IV (08:38)
[2021-02-17 11:16] VITALS: BP 170/95; PULSE 97; RESP 16; TEMP 36.8; O2SAT 96
--- NOTE | 2021-02-17 11:17 | PC.CHAP ---
Pastoral Care Encounter/Spiritual Assessment Type of Contact [] Declined product management manager visit [] Patient/Family/Request visit [] Outpatient visit [] Follow-up visit [] Physician referral [] Code/Alert [x] Routine visit [] Staff referral [] Actively dying [] Patient sleeping [] Family support [] [] Out of room [] Palliative care [] [x] Receiving care in room [] Pre-surgical visit [] Trauma [] Long length of stay [] ICU visit [] Other: Relational/Emotional Strength [x] Patient feels connected with others/family/visitors/staff [] Distress [] Loneliness/isolation [] Abandonment Spirituality of Patient [x] Person of [place] [] Attends [employer] of their [place] [x] Believes in Prayer [] Reads Bible or Jew materials [] There are Spiritual issues to be addressed Life Claims Examiner Interventions [x] Prayer [x] Active listening [x] Non-anxious presence [x] Spiritual/emotional support [] Crisis/trauma care [x] Spiritual counseling [] Bereavement support [] Provided bereavement packet [] Provided Bible/devotional materials [] Provided toy/stuffed animal, coloring book to patient or family member [] Provided Communion [] Anointing/[place] [] Salvation [x] Completed spiritual assessment [] Other: Impact on Illness or Injury [] Angry [] Fearful [] Anxious [] Often cries [] Exhaustion [] Unable to work [] Unable to attend restorationism [] Unable to walk/stand [] Unable to read [] Unable to drive [] Unable to eat/drink [] Unable to sleep [] Unable to be with family [] Patient intubated [] Other: Summary his urine is OK feeling good has good attitude going home Time spent with patient 10 mikns
[2021-02-17 11:46] LABS: Glucose Point of Care 334 mg/dL (70-110)
--- NOTE | 2021-02-17 13:34 | PM.DCS ---
Discharge Providers Date of Admission: 02/16/21 16:33 Date of Discharge: February 17, 2021 Attending Provider at Admission: Amarilis Humphrey MD Attending Provider at Discharge: Amarilis Humphrey MD Primary Care Provider: Destiny Bates MD Diagnoses at Discharge Discharge Diagnosis (1) Acute hyperglycemia: Status: Acute (2) Dehydration: Status: Acute (3) Hematuria: Status: Acute Reason for Visit Reason for Visit: Blood in urine Hospital Course Hospital Course 70 yo male resented to the hospital with hematuria as well as reported dysuria. On arrival he was noted to have elevated blood sugars. He does have a past medical history of atrial fibrillation on Coumadin as well as history of DVT and diabetes. The patient also was noted to have elevated creatinine. He was given IV fluids. He was covered with sliding scale. A Regan catheter was not placed although orders were given if he developed gross hematuria. He was noted to have yellow urine overnight. He did not report any further urinary symptoms. His hemoglobin A1c was noted to be >9 His insulin was adjusted. At time of discharge his creatinine was improved he had stable blood sugars. And was asymptomatic afebrile and was discharged in improved condition. The patient did have a renal ultrasound completed. Noted to have enlarged prostate as well as diffuse bladder wall thickening. Recommended outpatient urology follow-up. renal US IMPRESSION: 1. No hydronephrosis in either kidney. 2. A few incidental simple cortical cysts. 3. Diffuse bladder wall thickening consistent with bladder outlet obstruction. 4. Enlarged prostate. Recommend correlation PSA. Physical Exam Const: COMMON NORMALS: no acute distress, average body habitus and patient oriented x3 Neck/C-Spine: COMMON NORMALS: no JVD Resp: COMMON NORMALS: normal respiratory effort and No retractions Cardio: COMMON NORMALS: no JVD and regular rate RATE: regular rate GI: COMMON NORMALS: Normal to inspection, nondistended, normoactive bowel sounds present and non-tender Neuro: COMMON NORMALS: patient oriented x3 Psych: COMMON NORMALS: mental status grossly normal, Normal thought process present and cooperative THOUGHT PROCESS: Normal thought process present Skin: COMMON NORMALS: no rashes or lesions noted GENERAL SKIN EXAM: no rashes or lesions noted Discharge Data Data Completed and Pending: Completed Studies During Hospitalization Category Date Time Status US renal BI* [id number] Routine Ultrasound 02/17/21 19:19 Completed Pending at discharge Category Date Time Status Complete Blood Co unt w/Auto AM LABS Lab 02/18/21 04:00 Ordered Complete Blood Co unt w/Auto AM LABS Lab 02/19/21 04:00 Ordered Comprehensive Met abolic Panel AM LA BS Lab 02/18/21 04:00 Ordered Comprehensive Met abolic Panel AM LA BS Lab 02/19/21 04:00 Ordered Magnesium AM LABS Lab 02/18/21 04:00 Ordered Magnesium AM LABS Lab 02/19/21 04:00 Ordered Labs from last 24 hours 02/17/21 02/17/21 02/17/21 11:15 06:28 06:28 WBC 9.7 RBC 5.63 H Hgb 17.7 H Hct 50.8 MCV 90.2 MCH 31.4 MCHC 34.8 RDW 12.3 Plt Count 302 MPV 10.0 Neut % (Auto) 72.1 Lymph % (Auto) 15.8 [place] % (Auto) 8.1 Eos % (Auto) 2.7 Baso % (Auto) 0.8 Neut # (Auto) 6.97 Lymph # (Auto) 1.5 [place] # (Auto) 0.8 Eos # (Auto) 0.3 Baso # (Auto) 0.1 Nucleated RBC % (a uto) 0 Nucleated RBCs # 0.0 PT INR APTT Sodium 136 Potassium 4.2 Chloride 101 Carbon Dioxide 25 Anion Gap 14.2 BUN 27 H Creatinine 1.1 GFR Calculation 66.6 L Glucose 288 H POC Glucose 334 H Estimat Average Gl ucose Hemoglobin A1c Calculated Osmolal ity 298 H Calcium 8.6 Magnesium 1.9 Total Bilirubin 0.7 AST 17 ALT 19 Alkaline Phosphata se 92 Total Protein 6.1 L Albumin 3.0 L Globulin 3.1 Urine Color Urine Appearance Urine pH Ur Specific Gravit y Urine Protein Urine Glucose (UA) Urine Ketones Urine Blood Urine Nitrate Urine Bilirubin Urine Urobilinogen Ur Leukocyte Ibeth ase Urine RBC Urine WBC Ur Squamous Epith Cells Amorphous Sediment Urine Bacteria 02/17/21 02/16/21 02/16/21 06:24 21:06 19:15 WBC RBC Hgb Hct MCV MCH MCHC RDW Plt Count MPV Neut % (Auto) Lymph % (Auto) [place] % (Auto) Eos % (Auto) Baso % (Auto) Neut # (Auto) Lymph # (Auto) [place] # (Auto) Eos # (Auto) Baso # (Auto) Nucleated RBC % (a uto) Nucleated RBCs # PT INR APTT Sodium Potassium Chloride Carbon Dioxide Anion Gap BUN Creatinine GFR Calculation Glucose POC Glucose 298 H 370 H 252 H Estimat Average Gl ucose Hemoglobin A1c Calculated Osmolal ity Calcium Magnesium Total Bilirubin AST ALT Alkaline Phosphata se Total Protein Albumin Globulin Urine Color Urine Appearance Urine pH Ur Specific Gravit y Urine Protein Urine Glucose (UA) Urine Ketones Urine Blood Urine Nitrate Urine Bilirubin Urine Urobilinogen Ur Leukocyte Ibeth ase Urine RBC Urine WBC Ur Squamous Epith Cells Amorphous Sediment Urine Bacteria 02/16/21 02/16/21 02/16/21 15:33 13:40 13:40 WBC RBC Hgb Hct MCV MCH MCHC RDW Plt Count MPV Neut % (Auto) Lymph % (Auto) [place] % (Auto) Eos % (Auto) Baso % (Auto) Neut # (Auto) Lymph # (Auto) [place] # (Auto) Eos # (Auto) Baso # (Auto) Nucleated RBC % (a uto) Nucleated RBCs # PT INR APTT Sodium 132 L Potassium 5.0 Chloride 93 L Carbon Dioxide 25 Anion Gap 19.0 BUN 34 H Creatinine 1.4 H GFR Calculation 50.4 L Glucose 452 H POC Glucose Estimat Average Gl ucose 217 Hemoglobin A1c 9.2 H Calculated Osmolal ity 301 H Calcium 9.4 Magnesium Total Bilirubin 0.7 AST 15 ALT 21 Alkaline Phosphata se 137 H Total Protein 7.1 Albumin 3.7 Globulin 3.4 Urine Color Yellow Urine Appearance Clear Urine pH 5 Ur Specific Gravit y 1.015 Urine Protein 2+ H Urine Glucose (UA) 4+ H Urine Ketones Negative Urine Blood 3+ H Urine Nitrate Negative Urine Bilirubin Neg Urine Urobilinogen Norm Ur Leukocyte Ibeth ase Negative Urine RBC 5-10 H Urine WBC None Ur Squamous Epith Cells 0-4 H Amorphous Sediment Not Reportable Urine Bacteria None 02/16/21 02/16/21 13:40 13:40 WBC 14.7 H RBC 5.79 H Hgb 18.2 H Hct 51.8 MCV 89.5 MCH 31.4 MCHC 35.1 RDW 12.1 Plt Count 307 MPV 9.7 Neut % (Auto) 82.7 Lymph % (Auto) 8.5 [place] % (Auto) 6.9 Eos % (Auto) 0.7 Baso % (Auto) 0.7 Neut # (Auto) 12.18 H Lymph # (Auto) 1.3 [place] # (Auto) 1.0 H Eos # (Auto) 0.1 Baso # (Auto) 0.1 Nucleated RBC % (a uto) 0 Nucleated RBCs # 0.0 PT 13.50 INR 1.00 APTT 21.7 L Sodium Potassium Chloride Carbon Dioxide Anion Gap BUN Creatinine GFR Calculation Glucose POC Glucose Estimat Average Gl ucose Hemoglobin A1c Calculated Osmolal ity Calcium Magnesium Total Bilirubin AST ALT Alkaline Phosphata se Total Protein Albumin Globulin Urine Color Urine Appearance Urine pH Ur Specific Gravit y Urine Protein Urine Glucose (UA) Urine Ketones Urine Blood Urine Nitrate Urine Bilirubin Urine Urobilinogen Ur Leukocyte Ibeth ase Urine RBC Urine WBC Ur Squamous Epith Cells Amorphous Sediment Urine Bacteria Vitals: Last Vital Signs Temp 98.3 F 02/17/21 11:16 Pulse 97 02/17/21 11:16 Resp 16 02/17/21 11:16 BP 170/95 02/17/21 11:16 Pulse Ox 96 02/17/21 11:16 Discharge Plan Discharge Patient Disposition: Home Condition: Stable Prescriptions: New Lantus Solostar U-100 Insulin 100 unit/mL (3 mL) insulin pen 25 unit SUBCUT BID Qty: 15 RF: 0 Continued ondansetron 4 mg tablet,disintegrating 4 mg PO Q8H PRN (Reason: nausea and vomiting) Qty: 20 RF: 0 atorvastatin 20 mg tablet 20 mg PO QPM RF: 0 warfarin 7.5 mg tablet 7.5 mg PO DAILY@16 RF: 0 lisinopril 20 mg tablet 20 mg PO BID RF: 0 Hold Instructions: Resume on 02/15/21. clonidine HCl 0.3 mg tablet 0.3 mg PO TID RF: 0 tamsulosin 0.4 mg capsule 0.4 mg PO BEDTIME RF: 0 hydralazine 100 mg tablet 100 mg PO TID RF: 0 diltiazem HCl 120 mg capsule,extended release 24hr 120 mg PO QAM RF: 0 gabapentin 300 mg Capsule 300 mg PO TID RF: 0 semaglutide 0.25 mg or 0.5 mg(2 mg/1.5 mL) Pen Injector 0.5 mg SUBCUT Q7D RF: 0 garlic Tablet 1 tab PO DAILY RF: 0 calcium 1 tab PO DAILY RF: 0 Held furosemide 20 mg tablet 20 mg PO QAM PRN (Reason: Edema) RF: 0 Hold Instructions: Resume on 02/28/21. after PCP followup visit Discontinued potassium chloride 10 mEq capsule, extended release 10 meq PO QAM RF: 0 Lantus Solostar U-100 Insulin 100 unit/mL (3 mL) Insulin Pen 20 unit SUBCUT BID Qty: 0 RF: 0 Discharge Orders: Discharge Order (Routine); Ordered 02/17/21 Ordered By: Amarilis Humphrey Referrals: Destiny Bates MD [Primary Care Provider] - 02/24/21 9:15 am Discharge Diet: Diabetic Patient Instructions: Insulin Glargine (Injection), Hyperglycemia, Opioid Safety Discharge Attestations Time Spent in Discharge Care*: less than 30 min Specific Discharge Activities: educating patient Status at Discharge: Cognitive status at discharge: cognitively intact, Behavioral status at discharge: cooperative, Quality Metrics Clinical Quality Measures During this hospital stay, did patient experience: None Coding Level of Care Code Acute Chg FW DC note Exam Detailed Diagnoses Acute hyperglycemia R73.9 Dehydration E86.0 Hematuria R31.9
--- NOTE | 2021-02-17 15:59 | PC.NURSE ---
Patient's IV was removed. Explained discharge instructions to patient. Meds sent to pharmacy of choice. Patient wheeled out via wheel chair to private vehicle.
[2021-02-17 16:00] VITALS: BP 170/95; PULSE 97; RESP 16; TEMP 36.8; O2SAT 96
--- NOTE | 2021-02-17 19:19 | US_ITS ---
WS: [id number] ULTRASOUND RENAL TECHNIQUE: Ultrasound examination of both kidneys. CLINICAL INFORMATION: bri COMPARISON: None. FINDINGS: Simple bilateral renal cortical cysts. Largest on the left measuring 2.2 x 1.7 x 1.9 CM. RIGHT: Right kidney is normal in size and appearance. Echogenicity: Normal. Cortical thickness: 2.0 cm; Normal. Hydronephrosis: None. Perinephric fluid: None. Right kidney measures: 11.4 cm x 6.3 cm x 5.6 cm. LEFT: Left kidney is normal in size and appearance. Echogenicity: Normal. Cortical thickness: 1.6 cm; Normal. Hydronephrosis: None. Perinephric fluid: None. Left kidney measures: 10.8 cm x 5.3 cm x 5.2 cm. Normal visualized aorta. Normal bladder. Enlarged prostate measuring 4.3 x 2.7 x 4.1 cm. Diffuse blad salazar wall thickening consistent with bladder outlet obstruction. US/US renal BI* [id number] IMPRESSION: 1. No hydronephrosis in either kidney. 2. A few incidental simple cortical cysts. 3. Diffuse bladder wall thickening consistent with bladder outlet obstruction. 4. Enlarged prostate. Recommend correlation PSA.
== END 2021-02-17 16:02 | disposition home or self-care (01) ==
LOC: ER 16:32 → MEDSURG 17:58
PROVIDERS: Admitting Provider Internal Medicine; Emergency Provider Emergency Medicine; PCP Family Medicine; Visit Provider Internal Medicine
DX: E11.65 Type 2 diabetes mellitus with hyperglycemia (principal); E86.0 Dehydration; R31.9 Hematuria, unspecified; I48.91 Unspecified atrial fibrillation; Z79.01 Long term (current) use of anticoagulants; Z86.718 Personal history of other venous thrombosis and embolism; Z79.4 Long term (current) use of insulin; I25.10 Atherosclerotic heart disease of native coronary artery without angina pectoris; E78.5 Hyperlipidemia, unspecified; E11.42 Type 2 diabetes mellitus with diabetic polyneuropathy; E11.22 Type 2 diabetes mellitus with diabetic chronic kidney disease; I12.9 Hypertensive chronic kidney disease with stage 1 through stage 4 chronic kidney disease, or unspecified chronic kidney disease; N18.9 Chronic kidney disease, unspecified; Z87.891 Personal history of nicotine dependence
CPT/HCPCS: 36415; 36416; 76770; 80053; 81001; 82962; 83036; 83735; 85025; 85610; 85730; 96361; 96372; 96374; 96375; 99285; G0378; J1815; J3490; J7030; J7040

== ENCOUNTER 2021-03-21 08:52 | Emergency (ER) | payer MEDICARE, SELFPAY ==
[2021-03-21 08:52] VITALS: BP 178/123; PULSE 98; RESP 18; TEMP 36.7; O2SAT 98; BMI 30.4
--- NOTE | 2021-03-21 08:55 | XRR_ITS ---
PROCEDURE INFORMATION: Exam: XR Cervical Spine Exam date and time: 03/21/2021 8:55 AM Age: 70 years old Clinical indication: Injury or trauma; Blunt trauma; Injury details: Ground level fall in gravel; Additional info: Ryan TECHNIQUE: Imaging protocol: XR of the cervical spine. Views: 2 or 3 views. Total images: 3 COMPARISON: MR head wo con* [id number] 01/21/2021 12:08 PM FINDINGS: Bones/joints: C4-7 Degenerative disc disease with disc space narrowing and osteophyte formation. Soft tissues: Unremarkable. Lungs: Low lung volumes are present, accentuating cardiac size and pulmonary markings. XR/XR cervical spine 3V* [id number] IMPRESSION: No acute findings.
--- NOTE | 2021-03-21 08:55 | CT_ITS ---
WS: [id number] CT CERVICAL SPINE HISTORY: trauma TECHNIQUE: Contiguous 2.5 mm axial imaging performed through the entire cervical spine. Sagittal and coronal reformats also performed. All CT scans at [facility] use at least one of these do se optimization techniques: automated exposure control; mA and/or kV adjustment per patient size (inc ludes targeted exams where dose is matched to clinical indication); or iterative reconstruction. DLP: 800.58 mGy.cm COMPARISON: Neck CT 12/19/2013 Straightening of the normal cervical lordosis. Craniocervical junction is intact. No cervical spine f racture. Facet joints are normally aligned. Moderate degenerative disc space narrowing and desiccatio n at C4-5 and C5-6. C2-C3: Normal. C3-C4: Normal. C4-C5: Mild osteophytic ridging and a small LEFT paracentral disc protrusion causing mild contact on the thecal sac. Mild LEFT foraminal narrowing. C5-C6: Osteophytic ridging and mild facet joint arthritis. Mild bilateral foraminal narrowing. C6-C7: Normal. C7-T1: Normal. Apices are clear. Mild atherosclerosis aorta. CT/CT cervical spin wo con* [id number] IMPRESSION: 1. No acute cervical spine fracture. 2. Mild spondylitic changes with no significant central or foraminal stenosis.
--- NOTE | 2021-03-21 08:56 | CT_ITS ---
WS: [id number] CT HEAD NONCONTRAST HISTORY: trauma TECHNIQUE: Contiguous axial imaging performed through the brain in 2.5 mm imaging. Bone and soft tiss ue windows. Sagittal and coronal reformats reviewed. All CT scans at [facility] use at ast one of these dose optimization techniques: automated exposure control; mA and/or kV adjustment pe r patient size (includes targeted exams where dose is matched to clinical indication); or iterative r econstruction. DLP: 932.33 mGy.cm COMPARISON: 01/20/2021 No acute intracranial hemorrhage, midline shift or mass effect. Moderate atrophy similar to the prior study. Large remote infarct with encephalomalacia involving the RIGHT parieto-occipital lobes. Small lacunar infarcts in the external capsules bilaterally. Ventricles: Ventricles are dilated on the basis of atrophy and volume loss. Paranasal sinuses: As visualized are clear. Mastoid air cells: Well pneumatized. Calvarium and scalp: Skull is intact with no soft tissue edema or swelling. CT/CT head wo con* [id number] IMPRESSION: 1. No acute intracranial hemorrhage or edema. 2. Large remote RIGHT parietal occipital lobe infarct. 3. Bilateral lacunar infarcts and atrophy.
[2021-03-21 08:58] VITALS: BP 170/110; PULSE 110; RESP 18; O2SAT 98
[2021-03-21] MEDS: tetanus-dipt-pertussis 0.5 mL SDV IM (09:06)
--- NOTE | 2021-03-21 09:13 | W.ED.FALL ---
HPI - Fall General: Chief Complaint: Fall Stated Complaint: FALL, LAC TO BACK OF HEAD Time Seen by Provider: 03/21/21 08:53 History of Present Illness: HPI Narrative: 64-year-old male who had a mechanical fall at home and slipped stumbled backwards landed on the back of his head he denies loss conscious denies neck pain no other injury is warfarin due to A. fib. Brought in by EMS he is awake and alert. complaint: fall Onset (ago): minute(s) Fall from: standing Place fall occurred: home Loss of consciousness: Unsure Prolonged down time: no Symptoms prior to fall: lightheadedness Context: tripped/slipped Location of injury: head Severity: mild Associated symptoms-after fall: Reports headache(s); Denies abdominal pain, chest pain, confusion, difficulty walking, hematuria, lightheadedness, neck pain, numbness, short of breath, vertigo or weakness Review of Systems Const: Denies: fever(s), chills, body aches, change in appetite, fatigue or malaise ENMT: Denies: throat pain, ear or mastoid pain, nasal discharge or nasal congestion Card: Denies: chest pain or lightheadedness Resp: Denies: dyspnea, productive cough or non-productive cough GI: Denies: abdominal pain : Denies: hematuria Musc: Denies: neck pain Skin/Breast: Denies: rash or pruritus Neuro: Reports: headache(s); Denies: difficulty walking, vertigo or confusion PFSH ED PFSH: Medical History Atrial fibrillation Atrial fibrillation with rapid ventricular response CAD (coronary artery disease) Chronic anticoagulation CKD (chronic kidney disease) Baseline creatinine 1.9 CVA (cerebral vascular accident) 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 Depression DVT (deep venous thrombosis) Dyslipidemia HTN (hypertension) Peripheral neuropathy Polycythemia Poorly controlled type 2 diabetes mellitus Surgical History No pertinent past surgical history Family History Other CAD (coronary artery disease) Cancer Social History Smoking and tobacco status: former smoker Alcohol intake: never Caregiver/support person: No Household members: none Housing: House Physical Exam Const: COMMON NORMALS: no acute distress GENERAL APPEARANCE: cooperative and comfortable ORIENTATION/CONSCIOUSNESS: Yes awake, Yes oriented to person, Yes oriented to place and Yes oriented to time HENMT: COMMON NORMALS: normocephalic, atraumatic, hearing grossly normal bilaterally, external ears normal, EAC's normal, TM's normal bilaterally, Normal nasal mucous membranes and turbinates present, moist oral mucous membranes and oropharynx normal HEAD & SCALP: normocephalic and atraumatic NOSE: Normal nasal mucous membranes and turbinates present EXTERNAL EAR: Yes external ears normal EXTERNAL AUDITORY CANAL: EAC's normal TYMPANIC MEMBRANE: TM's normal bilaterally OTHER: 2 cm laceration on the occiput area was cleaned no foreign bodies noted closed with 4 carlota patient tolerated well Eye: COMMON NORMALS: Equal, round and reactive pupils present, EOMs intact bilaterally, conjunctivae normal and no scleral icterus CONJUNCTIVA: Yes conjunctivae normal PUPIL: Yes Equal, round and reactive pupils present Neck/C-Spine: COMMON NORMALS: full ROM, no lymphadenopathy, supple and no JVD Lymph: LYMPHATIC: no lymphadenopathy noted and no lymphedema noted Resp: COMMON NORMALS: normal respiratory effort, No retractions, No use of accessory muscles and clear to auscultation bilaterally AUSCULTATION: clear to auscultation bilaterally Cardio: COMMON NORMALS: no JVD, regular rate, regular rhythm and No murmurs present (Cardio) RATE: regular rate RHYTHM: regular rhythm GI: COMMON NORMALS: Soft to palpation and No hepatosplenomegaly present AUSCULTATION: Yes normoactive bowel sounds PALPATION: Yes Soft to palpation, No Tenderness to palpation present (GI), No Guarding due to palpation present (GI) and Yes No hepatosplenomegaly present Extremity: COMMON NORMALS: normal to inspection, capillary refill normal, no clubbing, cyanosis or edema, no calf tenderness and no pedal edema Neuro: SENSORIUM/ORIENTATION: Yes oriented to person, Yes oriented to place and Yes oriented to time Skin: COMMON NORMALS: no rashes or lesions noted GENERAL SKIN EXAM: no rashes or lesions noted Course Vital Signs: Vital signs: Vital Signs Temperature 98.0 F 03/21/21 08:52 Pulse Rate 99 03/21/21 10:38 Respiratory Rate 18 03/21/21 10:38 Blood Pressure 188/110 03/21/21 10:38 Pulse Oximetry 98 03/21/21 08:58 MDM - Fall MDM Narrative: Medical decision making narrative: CT head is unremarkable. Will CT neck is also normal. Discharge home wound care instructions given topical mupirocin Carlota out in 7 to 10 days return if has problems Lab Data: Labs: Lab Results 03/21/21 03/21/21 Range/Units 08:50 08:50 WBC 9.3 (4.0-10.0) 10^3/ uL RBC 5.90 H (4.1-5.3) 10^6/u L Hgb 18.8 H (11.7-16.6) g/dL Hct 53.5 H (42.0-52.0) % MCV 90.7 (80-94) fl MCH 31.9 (28.0-34.0) pg MCHC 35.1 (30.0-36.0) g/dL RDW 12.9 (12.1-15.1) % Plt Count 249 (130-400) 10^3/c mm MPV 9.8 (7.4-10.4) fL Neut % (Auto) 67.6 % Lymph % (Auto) 20.5 % [place] % (Auto) 8.1 % Eos % (Auto) 2.2 % Baso % (Auto) 1.0 % Neut # (Auto) 6.28 (1.8-7.7) 10^3/u L Lymph # (Auto) 1.9 (0.8-4.8) 10^3/u L [place] # (Auto) 0.8 (0.2-0.9) 10^3/u L Eos # (Auto) 0.2 (0.0-0.8) 10^3/u L Baso # (Auto) 0.1 (0.0-0.1) 10^3/u L Nucleated RBC % (a uto) 0 % Nucleated RBCs # 0.0 /100WBC PT 11.50 L (12.1-14.9) SECO NDS INR 0.82 (0.8-1.2) Discharge Plan Discharge Patient Disposition: Home Clinical Impression: Fall, Laceration of head Condition: Stable Prescriptions: New mupirocin 2 % ointment 1 applic topical DAILY Qty: 15 RF: 0 No Action ondansetron 4 mg tablet,disintegrating 4 mg PO Q8H PRN (Reason: nausea and vomiting) Qty: 20 RF: 0 atorvastatin 20 mg tablet 20 mg PO QPM RF: 0 warfarin 7.5 mg tablet 7.5 mg PO DAILY@16 RF: 0 lisinopril 20 mg tablet 20 mg PO BID RF: 0 Hold Instructions: Resume on 02/15/21. clonidine HCl 0.3 mg tablet 0.3 mg PO TID RF: 0 tamsulosin 0.4 mg capsule 0.4 mg PO BEDTIME RF: 0 hydralazine 100 mg tablet 100 mg PO TID RF: 0 diltiazem HCl 120 mg capsule,extended release 24hr 120 mg PO QAM RF: 0 furosemide 20 mg tablet 20 mg PO QAM PRN (Reason: Edema) RF: 0 Hold Instructions: Resume on 02/28/21. after PCP followup visit gabapentin 300 mg Capsule 300 mg PO TID RF: 0 semaglutide 0.25 mg or 0.5 mg(2 mg/1.5 mL) Pen Injector 0.5 mg SUBCUT Q7D RF: 0 garlic Tablet 1 tab PO DAILY RF: 0 calcium 1 tab PO DAILY RF: 0 Lantus Solostar U-100 Insulin 100 unit/mL (3 mL) insulin pen 25 unit SUBCUT BID Qty: 15 RF: 0 Discharge Orders: Discharge ED (Routine); Ordered 03/21/21 Ordered By: Bucky Walker Referrals: Destiny Bates MD [Primary Care Provider] - Discharge Diet: Usual diet Discharge Activity: Increase activity as tolerated Patient Instructions: Opioid Safety Activity Restrictions/Additional Instructions: Remove carlota in 7 to 10 days. Coding Level of Care Code ED [employer] Inspector for Sergio Dahl
[2021-03-21 09:17] LABS: Basophils # 0.1 10^3/uL (0.0-0.1); Eosinophils # 0.2 10^3/uL (0.0-0.8); Eosinophils % 2.2 %; Hematocrit 53.5 % (42.0-52.0); Hemoglobin 18.8 g/dL (11.7-16.6); Lymphocytes # 1.9 10^3/uL (0.8-4.8); Lymphocytes % 20.5 %; Mean Corpuscular HGB Conc 35.1 g/dL (30.0-36.0); Mean Corpuscular Hemoglobin 31.9 pg (28.0-34.0); Mean Corpuscular Volume 90.7 fl (80-94); Mean Platelet Volume 9.8 fL (7.4-10.4); Monocytes # 0.8 10^3/uL (0.2-0.9); Monocytes % 8.1 %; Neutrophils # 6.28 10^3/uL (1.8-7.7); Neutrophils % 67.6 %; Nucleated Red Blood Cells % 0 %; Platelet Count 249 10^3/cmm (130-400); Red Cell Distribution Width 12.9 % (12.1-15.1); White Blood Count 9.3 10^3/uL (4.0-10.0)
[2021-03-21 09:21] LABS: INR 0.82 (0.8-1.2)
[2021-03-21 09:58] VITALS: BP 188/110; PULSE 99; RESP 18
[2021-03-21 10:38] VITALS: BP 188/110; PULSE 99; RESP 18
== END 2021-03-21 10:39 | disposition home or self-care (01) ==
PROVIDERS: Emergency Provider Family Medicine; PCP Family Medicine
DX: S01.81XA Laceration without foreign body of other part of head, initial encounter (principal); W01.10XA Fall on same level from slipping, tripping and stumbling with subsequent striking against unspecified object, initial encounter; I25.10 Atherosclerotic heart disease of native coronary artery without angina pectoris; Z86.73 Personal history of transient ischemic attack (TIA), and cerebral infarction without residual deficits; E78.5 Hyperlipidemia, unspecified; I10 Essential (primary) hypertension; E11.42 Type 2 diabetes mellitus with diabetic polyneuropathy; Z87.891 Personal history of nicotine dependence; Z23 Encounter for immunization
CPT/HCPCS: 12001; 70450; 72040; 72125; 85025; 85610; 90471; 90715; 99283

== ENCOUNTER 2021-04-15 18:48 | Outpatient (CLI) | payer MEDICARE, SELFPAY ==
[2021-04-15 19:46] LABS: INR 1.69 (0.8-1.2)
== END 2021-04-15 18:49 | disposition home or self-care (01) ==
PROVIDERS: PCP Family Medicine; Visit Provider Family Medicine
DX: Z79.01 Long term (current) use of anticoagulants (principal)
CPT/HCPCS: 85610

== ENCOUNTER 2021-04-22 07:00 | Outpatient (CLI) | payer MEDICARE, SELFPAY ==
[2021-04-22 07:33] LABS: INR 1.28 (0.8-1.2)
== END 2021-04-22 07:01 | disposition home or self-care (01) ==
LOC: LAB 07:04
PROVIDERS: PCP Family Medicine; Visit Provider Family Medicine
DX: I48.91 Unspecified atrial fibrillation (principal)
CPT/HCPCS: 85610

== ENCOUNTER 2021-04-29 06:26 | Outpatient (CLI) | payer MEDICARE, SELFPAY ==
[2021-04-29 07:21] LABS: INR 3.49 (0.8-1.2)
== END 2021-04-29 06:27 | disposition home or self-care (01) ==
PROVIDERS: PCP Family Medicine; Visit Provider Family Medicine
DX: I48.91 Unspecified atrial fibrillation (principal)
CPT/HCPCS: 85610

== ENCOUNTER 2021-05-02 08:49 | Outpatient (CLI) | payer MEDICARE, SELFPAY ==
[2021-05-02 09:45] LABS: INR 1.94 (0.8-1.2)
== END 2021-05-02 08:50 | disposition home or self-care (01) ==
PROVIDERS: PCP Family Medicine; Visit Provider Family Medicine
DX: I48.91 Unspecified atrial fibrillation (principal)
CPT/HCPCS: 85610

== ENCOUNTER 2021-08-17 15:47 | Outpatient (CLI) | payer MEDICARE, MEDICAID, SELFPAY ==
[2021-08-17 16:04] LABS: Basophils # 0.1 10^3/uL (0.0-0.1); Basophils % 0.7 %; Eosinophils # 0.2 10^3/uL (0.0-0.8); Eosinophils % 2.2 %; Hematocrit 49.3 % (42.0-52.0); Hemoglobin 17.2 g/dL (11.7-16.6); Lymphocytes # 1.7 10^3/uL (0.8-4.8); Lymphocytes % 18.1 %; Mean Corpuscular HGB Conc 34.9 g/dL (30.0-36.0); Mean Corpuscular Hemoglobin 31.5 pg (28.0-34.0); Mean Corpuscular Volume 90.3 fl (80-94); Mean Platelet Volume 9.5 fL (7.4-10.4); Monocytes % 10.9 %; Neutrophils # 6.45 10^3/uL (1.8-7.7); Neutrophils % 67.8 %; Nucleated Red Blood Cells % 0 %; Platelet Count 237 10^3/cmm (130-400); Red Blood Count 5.46 10^6/uL (4.1-5.3); Red Cell Distribution Width 12.5 % (12.1-15.1); White Blood Count 9.5 10^3/uL (4.0-10.0)
[2021-08-17 17:35] LABS: Bilirubin Urine Neg (Negative); Blood Urine 2+ (Negative); Glucose Urine UA 4+ (Normal); Ketones Urine Negative (Negative); Nitrate Urine Negative (Negative); Protein Urine 3+ (Negative); Specific Gravity, Urine 1.005 (1.005-1.030); Urine Appearance Clear (CLEAR); Urine Color Yellow (Yellow); pH Urine 7 (5-7)
[2021-08-17 17:36] LABS: Add Urine Culture? No; Add Urine Microscopic? YES; Leukocyte Esterase Urine Negative (Negative); Urobilinogen Urine Norm (Negative); WBC Urine 0-4 /hpf (0-5)
== END 2021-08-17 15:48 | disposition home or self-care (01) ==
PROVIDERS: PCP Family Medicine; Visit Provider Nurse Practitioner Family
DX: N39.0 Urinary tract infection, site not specified (principal)
CPT/HCPCS: 81001; 85025

== ENCOUNTER 2021-09-29 14:39 | Outpatient (CLI) | payer MEDICARE, SELFPAY ==
[2021-09-29 15:32] LABS: INR 3.29 (0.8-1.2)
== END 2021-09-29 14:40 | disposition home or self-care (01) ==
PROVIDERS: PCP Family Medicine; Visit Provider Family Medicine
DX: I48.91 Unspecified atrial fibrillation (principal)
CPT/HCPCS: 85610

== ENCOUNTER 2022-01-06 05:22 | Outpatient (CLI) | payer MEDICARE, SELFPAY ==
[2022-01-06 05:57] LABS: INR 2.59 (0.8-1.2)
== END 2022-01-06 05:23 | disposition home or self-care (01) ==
LOC: LAB 05:26
PROVIDERS: PCP Family Medicine; Visit Provider Family Medicine
DX: I25.10 Atherosclerotic heart disease of native coronary artery without angina pectoris (principal); D64.9 Anemia, unspecified; Z79.01 Long term (current) use of anticoagulants
CPT/HCPCS: 85610

== ENCOUNTER 2022-02-12 09:30 | Emergency (ER) | payer MEDICARE, SELFPAY ==
--- NOTE | 2022-02-12 09:36 | CTR_ITS ---
PROCEDURE INFORMATION: Exam: CT Head Without Contrast Exam date and time: 02/12/2022 11:15 AM Age: 71 years old Clinical indication: Altered mental status/memory loss; Confusion or disorientation; TECHNIQUE: Imaging protocol: Computed tomography of the head without contrast. Radiation optimization: All CT scans at this facility use at least one of these dose optimization techniques: automated exposure control; mA and/or kV adjustment per patient size (includes targeted exams where dose is matched to clinical indication); or iterative reconstruction. COMPARISON: CT head wo con* [id number] 03/21/2021 9:25 AM RADIATION DOSE METRICS: Total DLP (mGy-cm): 1097.28 FINDINGS: Brain: Calcified plaque is present within the intracranial vasculature. [id number] generalized cerebral atrophy. Large old infarct with encephalomalacia involving the right parietal, temporal, and occipital lobes, also seen on the prior study. There are small chronic lacunar infarcts in the basal ganglia, external capsules, and thalami.No evidence for large acute ischemic infarction. Please note acute ischemia can be occult by head CT. Cerebral ventricles: No ventriculomegaly. Paranasal sinuses: Visualized sinuses are unremarkable. No fluid levels. Mastoid air cells: Visualized mastoid air cells are well aerated. Bones/joints: Unremarkable. No acute fracture. Soft tissues: Unremarkable. CT/CT head wo con* [id number] IMPRESSION: Old right parietal/occipital/temporal lobe infarct with encephalomalacia.There are senescent changes of the brain as described above. No evidence for large acute ischemic infarction or acute intracranial injury.
--- NOTE | 2022-02-12 09:36 | ECG_ITS ---
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 Measurements Intervals [place] Rate: 73 P: [place]: QRS: 56 QRSD: 84 T: 77 QT: 410 QTc: 454 Interpretive Statements ATRIAL FIBRILLATION Compared to ECG 01/20/2021 18:34:44 Myocardial infarct finding no longer present Electronically Signed On 02-12-2022 23:35:14 CDT by Cam Medrano M.D. [email or web address]
[2022-02-12 09:37] VITALS: BP 146/88; PULSE 90; RESP 16; TEMP 36.7; O2SAT 96; BMI 28.1
--- NOTE | 2022-02-12 09:48 | W.ED.PSYCHS ---
Documented by User: Jayant Cullen MD 02/26/22 22:00 HPI - Psych General: Chief Complaint: Psychiatric Symptoms Stated Complaint: AMS Time Seen by Provider: 02/12/22 09:33 History of Present Illness: Mr. Mcintosh is a 71-year-old gentleman who presents to the emergency department due to aggressive behavior. The patient himself I believe has mildly limited insight. He reports getting upset earlier because they came in multiple times to get his vitals however otherwise does not have a specific reason that he is here. He denies recent medical concerns or complaints. No other specific changes in health, exacerbating, or alleviating factors identified. Per residential report patient is typically very pleasant and fully oriented. He has not had symptoms of dementia. Last night he seemed more agitated and made statements regarding hitting other people that he no longer liked. He was verbally aggressive but not physically aggressive with staff at the residential. No history of similar. Onset (ago): day(s) History of same: No Review of Systems General: Reports: 10 or more systems reviewed and unremarkable except in HPI and below PFSH ED PFSH: Medical History Atrial fibrillation Atrial fibrillation with rapid ventricular response CAD (coronary artery disease) Chronic anticoagulation CKD (chronic kidney disease) Baseline creatinine 1.9 CVA (cerebral vascular accident) 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 Depression DVT (deep venous thrombosis) Dyslipidemia HTN (hypertension) Peripheral neuropathy Polycythemia Poorly controlled type 2 diabetes mellitus Surgical History No pertinent past surgical history Family History Other CAD (coronary artery disease) Cancer Social History Smoking and tobacco status: former smoker Alcohol intake: never Caregiver/support person: No Household members: none Housing: House Physical Exam Const: COMMON NORMALS: alert GENERAL APPEARANCE: cooperative and well developed HENMT: COMMON NORMALS: normocephalic and atraumatic HEAD & SCALP: normocephalic and atraumatic THROAT: posterior oropharynx normal Eye: COMMON NORMALS: conjunctivae normal CONJUNCTIVA: Yes conjunctivae normal SCLERA: sclerae normal Neck/C-Spine: COMMON NORMALS: supple GENERAL: Yes trachea midline Resp: COMMON NORMALS: normal respiratory effort EFFORT & INSPECTION: Yes able to speak in complete sentences Cardio: COMMON NORMALS: regular rate and regular rhythm RATE: regular rate RHYTHM: regular rhythm GI: COMMON NORMALS: Soft to palpation PALPATION: Yes Soft to palpation and No Tenderness to palpation present (GI) PERCUSSION: normal to percussion Extremity: GENERAL: Yes normal exam except as noted and No edema Neuro: COMMON NORMALS: moves all extremities SENSORIUM/ORIENTATION: Yes alert and No Orientation impaired Psych: COMMON NORMALS: mental status grossly normal and Normal thought process present THOUGHT PROCESS: Normal thought process present THOUGHT CONTENT: No Suicidality present and No Homicidality present Course ED course: - Patient was seen and evaluated by me at bedside - Patient placed on cardiac monitors, IV access obtained - Initial evaluation notable for exam as above, calm and cooperative. Patient reports that he just became frustrated with recurrent interruptions in sleep. - Labs personally interpreted by me. EKG showing atrial fibrillation with nonspecific ST segment abnormalities. No STEMI. - Labs notable for no significant abnormalities to explain symptoms. - Upon serial reexamination after treatment the patient was similar - Based on patient history, evaluation, and testing as interpreted the most likely cause of the patient's condition is agitation -Patient care handed off to Dr. Ramos pending completion of psychiatry service consult. Likely discharge back to residential. Vital Signs: Vital signs: Vital Signs Temperature 98.0 F 02/12/22 09:37 Pulse Rate 90 02/12/22 09:37 Respiratory Rate 16 02/12/22 09:37 Blood Pressure 146/88 02/12/22 09:37 Pulse Oximetry 96 02/12/22 09:37 [facility] - Psych Medical Records I reviewed the patient's medical records. Lab Data I reviewed the patient's lab results. : 02/12/22 11:12 02/12/22 11:[address] 02/12/22 09:36 IMPRESSION: Old right parietal/occipital/temporal lobe infarct with encephalomalacia.There are senescent changes of the brain as described above. No evidence for large acute ischemic infarction or acute intracranial injury. Laboratory Results WBC 8.3 10^3/uL (4.0-10.0) 02/12/22 11:12 RBC 4.93 10^6/uL (4.1-5.3) 02/12/22 11:12 Hgb 16.0 g/dL (11.7-16.6) 02/12/22 11:12 Hct 46.0 % (42.0-52.0) 02/12/22 11:12 MCV 93.3 fl (80-94) 02/12/22 11:12 MCH 32.5 pg (28.0-34.0) 02/12/22 11:12 MCHC 34.8 g/dL (30.0-36.0) 02/12/22 11:12 RDW 12.1 % (12.1-15.1) 02/12/22 11:12 Plt Count 227 10^3/cmm (130-400) 02/12/22 11:12 MPV 9.4 fL (7.4-10.4) 02/12/22 11:12 Neut % (Auto) 72.1 % 02/12/22 11:12 Lymph % (Auto) 16.1 % 02/12/22 11:12 [place] % (Auto) 8.6 % 02/12/22 11:12 Eos % (Auto) 1.9 % 02/12/22 11:12 Baso % (Auto) 0.7 % 02/12/22 11:12 Neut # (Auto) 5.94 10^3/uL (1.8-7.7) 02/12/22 11:12 Lymph # (Auto) 1.3 10^3/uL (0.8-4.8) 02/12/22 11:12 [place] # (Auto) 0.7 10^3/uL (0.2-0.9) 02/12/22 11:12 Eos # (Auto) 0.2 10^3/uL (0.0-0.8) 02/12/22 11:12 Baso # (Auto) 0.1 10^3/uL (0.0-0.1) 02/12/22 11:12 Nucleated RBC % (auto) 0 % 02/12/22 11:12 Nucleated RBCs # 0.0 /100WBC 02/12/22 11:12 Sodium 135 mmol/L (136-145) L 02/12/22 11:12 Potassium 4.3 mmol/L (3.5-5.1) 02/12/22 11:12 Chloride 100 mmol/L (98-107) 02/12/22 11:12 Carbon Dioxide 24 mmol/L (22-29) 02/12/22 11:12 Anion Gap 15.3 (5-19) 02/12/22 11:12 BUN 19 mg/dL (8-23) 02/12/22 11:12 Creatinine 1.2 mg/dL (0.7-1.2) 02/12/22 11:12 GFR Calculation 60.0 mL/min (90-130) L 02/12/22 11:12 Glucose 99 mg/dL (65-115) 02/12/22 11:12 Calculated Osmolality 282 mOsm/kg (285-295) L 02/12/22 11:12 Calcium 8.9 mg/dL (8.5-10.5) 02/12/22 11:12 Total Bilirubin 0.5 mg/dL (0.15-1.2) 02/12/22 11:12 AST 20 U/L (0-40) 02/12/22 11:12 ALT 18 U/L (0-41) 02/12/22 11:12 Alkaline Phosphatase 109 IU/L (40-130) 02/12/22 11:12 Troponin T Baseline 23 ng/L (0-15) H 02/12/22 11:12 Troponin T 120 Minute 22.96 ng/L (0-15) H 02/12/22 13:15 Delta Troponin T -0.04 ABS# (0-10) L 02/12/22 13:15 Total Protein 6.9 g/dL (6.6-8.7) 02/12/22 11:12 Albumin 3.7 g/dL (3.5-5.2) 02/12/22 11:12 Globulin 3.2 g/dL (1.3-4.6) 02/12/22 11:12 TSH 1.38 uIU/mL (0.27-4.20) 02/12/22 11:12 Urine Color Yellow (Yellow) 02/12/22 11:47 Urine Appearance Clear (CLEAR) 02/12/22 11:47 Urine pH 5 (5-7) 02/12/22 11:47 Ur Specific [place] 1.015 (1.005-1.030) 02/12/22 11:47 Urine Protein 3+ (Negative) H 02/12/22 11:47 Urine Glucose (UA) Norm (Normal) 02/12/22 11:47 Urine Ketones Negative (Negative) 02/12/22 11:47 Urine Blood Neg (Negative) 02/12/22 11:47 Urine Nitrate Negative (Negative) 02/12/22 11:47 Urine Bilirubin Neg (Negative) 02/12/22 11:47 Urine Urobilinogen Norm mg/dL (Negative) 02/12/22 11:47 Ur Leukocyte Esterase Negative (Negative) 02/12/22 11:47 Urine RBC None /hpf (0-2) 02/12/22 11:47 Urine WBC None /hpf (0-5) 02/12/22 11:47 Ur Squamous Epith Cells 0-4 /hpf (0-5) H 02/12/22 11:47 Amorphous Sediment Not Reportable 02/12/22 11:47 Urine Bacteria Trace /hpf (NONE) 02/12/22 11:47 Urine Mucus Trace /hpf 02/12/22 11:47 Salicylates 0.5 mg/dL (3-10) L 02/12/22 11:12 Urine Opiates Screen Negative ng/mL (Negative) 02/12/22 11:47 Acetaminophen < 5.0 ug/mL (10-30) L 02/12/22 11:12 Ur Barbiturates Screen Negative ng/mL (Negative) 02/12/22 11:47 Ur Phencyclidine Scrn Negative ng/mL (Negative) 02/12/22 11:47 Ur Amphetamines Screen Negative ng/mL (Negative) 02/12/22 11:47 U Benzodiazepines Scrn Negative ng/mL (Negative) 02/12/22 11:47 Urine Cocaine Screen Negative ng/mL (Negative) 02/12/22 11:47 U Marijuana (THC) Screen Negative ng/mL (Negative) 02/12/22 11:47 Ethyl Alcohol < 10 mg/dL (0-10) 02/12/22 11:12 Discharge Plan Discharge Patient Disposition: Home Clinical Impression: Altered behavior Condition: Stable Prescriptions: No Action atorvastatin 20 mg tablet 20 mg PO QPM 0RF warfarin 7.5 mg tablet 7.5 mg PO DAILY@16 0RF lisinopril 20 mg tablet 20 mg PO BEDTIME 0RF Hold Instructions: Resume on 02/15/21. clonidine HCl 0.3 mg tablet 0.3 mg PO TID 0RF tamsulosin 0.4 mg capsule 0.4 mg PO BEDTIME 0RF hydralazine 100 mg tablet 100 mg PO TID 0RF diltiazem HCl 120 mg capsule,extended release 24hr 120 mg PO QAM 0RF furosemide 20 mg tablet 20 mg PO QAM PRN (Reason: Edema) 0RF Hold Instructions: Resume on 02/28/21. after PCP followup visit potassium chloride 10 mEq tablet extended release 10 meq PO DAILY 0RF tramadol 50 mg tablet 50 mg PO Q6H PRN (Reason: Pain) 0RF bisacodyl 10 mg Suppository 10 mg HI DAILY PRN (Reason: Constipation) 0RF metformin 1,000 mg tablet 1,000 mg PO BID 0RF bisacodyl 5 mg Tablet,Delayed Release (Dr/Ec) 10 mg PO DAILY PRN (Reason: Constipation) 0RF gabapentin 100 mg Capsule 100 mg PO BEDTIME 0RF glipizide 5 mg tablet 5 mg PO BID 0RF Multi M Vitamin Tablet 1 tab PO DAILY 0RF Novolog Flexpen U-100 Insulin 100 unit/mL (3 mL) insulin pen 3 unit SUBCUT BID 0RF Lantus Solostar U-100 Insulin 100 unit/mL (3 mL) insulin pen 40 unit SUBCUT BEDTIME 0RF Discharge Orders: Discharge ED (Routine); Ordered 02/12/22 Ordered By: Fabian Ramos Referrals: Destiyn Bates MD [Primary Care Provider] - Discharge Diet: Advance as tolerated Discharge Activity: Resume usual activity Activity Restrictions/Additional Instructions: Thank you for visiting the emergency department. You were seen and evaluated for aggressive behavior/behavior change. The exact cause of your symptoms is unclear though does not appear to need hospitalization at this time. I recommend reevaluation by your normal physician in the next day or 2. Please return to the emergency department for worsening symptoms, thoughts of hurting yourself or anyone else, or anything else that you are concerned about a feel needs emergency department evaluation. Coding Level of Care Code ED Shuttle Fitting Supervisor for Chg Fwd Documented by User: Fabian Ramos MD 02/12/22 14:47 HPI - Psych General: Chief Complaint: Psychiatric Symptoms Stated Complaint: AMS Time Seen by Provider: 02/12/22 09:33 Source: patient Mode of arrival: ambulatory Limitations: no limitations PFSH ED PFSH: Medical History Atrial fibrillation Atrial fibrillation with rapid ventricular response CAD (coronary artery disease) Chronic anticoagulation CKD (chronic kidney disease) Baseline creatinine 1.9 CVA (cerebral vascular accident) 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 Depression DVT (deep venous thrombosis) Dyslipidemia HTN (hypertension) Peripheral neuropathy Polycythemia Poorly controlled type 2 diabetes mellitus Surgical History No pertinent past surgical history Family History Other CAD (coronary artery disease) Cancer Social History Smoking and tobacco status: former smoker Alcohol intake: never Caregiver/support person: No Household members: none Housing: House Course Vital Signs: Vital signs: Vital Signs Temperature 98.0 F 02/12/22 09:37 Pulse Rate 90 02/12/22 09:37 Respiratory Rate 16 02/12/22 09:37 Blood Pressure 146/88 02/12/22 09:37 Pulse Oximetry 96 02/12/22 09:37 MDM - Psych Medical Decision Making Patient presents here with aggressive behavior along with anger issues at the residential he since has been cooperative here patient was evaluated by psychiatrist here who feels patient does not require [facility] psych placement I agree with assessment as well I feel he is stable from back to the residential at this time. Lab Data : 02/12/22 11:12 02/12/22 11:[address] 02/12/22 09:36 IMPRESSION: Old right parietal/occipital/temporal lobe infarct with encephalomalacia.There are senescent changes of the brain as described above. No evidence for large acute ischemic infarction or acute intracranial injury. Laboratory Results WBC 8.3 10^3/uL (4.0-10.0) 02/12/22 11:12 RBC 4.93 10^6/uL (4.1-5.3) 02/12/22 11:12 Hgb 16.0 g/dL (11.7-16.6) 02/12/22 11:12 Hct 46.0 % (42.0-52.0) 02/12/22 11:12 MCV 93.3 fl (80-94) 02/12/22 11:12 MCH 32.5 pg (28.0-34.0) 02/12/22 11:12 MCHC 34.8 g/dL (30.0-36.0) 02/12/22 11:12 RDW 12.1 % (12.1-15.1) 02/12/22 11:12 Plt Count 227 10^3/cmm (130-400) 02/12/22 11:12 MPV 9.4 fL (7.4-10.4) 02/12/22 11:12 Neut % (Auto) 72.1 % 02/12/22 11:12 Lymph % (Auto) 16.1 % 02/12/22 11:12 [place] % (Auto) 8.6 % 02/12/22 11:12 Eos % (Auto) 1.9 % 02/12/22 11:12 Baso % (Auto) 0.7 % 02/12/22 11:12 Neut # (Auto) 5.94 10^3/uL (1.8-7.7) 02/12/22 11:12 Lymph # (Auto) 1.3 10^3/uL (0.8-4.8) 02/12/22 11:12 [place] # (Auto) 0.7 10^3/uL (0.2-0.9) 02/12/22 11:12 Eos # (Auto) 0.2 10^3/uL (0.0-0.8) 02/12/22 11:12 Baso # (Auto) 0.1 10^3/uL (0.0-0.1) 02/12/22 11:12 Nucleated RBC % (auto) 0 % 02/12/22 11:12 Nucleated RBCs # 0.0 /100WBC 02/12/22 11:12 Sodium 135 mmol/L (136-145) L 02/12/22 11:12 Potassium 4.3 mmol/L (3.5-5.1) 02/12/22 11:12 Chloride 100 mmol/L (98-107) 02/12/22 11:12 Carbon Dioxide 24 mmol/L (22-29) 02/12/22 11:12 Anion Gap 15.3 (5-19) 02/12/22 11:12 BUN 19 mg/dL (8-23) 02/12/22 11:12 Creatinine 1.2 mg/dL (0.7-1.2) 02/12/22 11:12 GFR Calculation 60.0 mL/min (90-130) L 02/12/22 11:12 Glucose 99 mg/dL (65-115) 02/12/22 11:12 Calculated Osmolality 282 mOsm/kg (285-295) L 02/12/22 11:12 Calcium 8.9 mg/dL (8.5-10.5) 02/12/22 11:12 Total Bilirubin 0.5 mg/dL (0.15-1.2) 02/12/22 11:12 AST 20 U/L (0-40) 02/12/22 11:12 ALT 18 U/L (0-41) 02/12/22 11:12 Alkaline Phosphatase 109 IU/L (40-130) 02/12/22 11:12 Troponin T Baseline 23 ng/L (0-15) H 02/12/22 11:12 Troponin T 120 Minute 22.96 ng/L (0-15) H 02/12/22 13:15 Delta Troponin T -0.04 ABS# (0-10) L 02/12/22 13:15 Total Protein 6.9 g/dL (6.6-8.7) 02/12/22 11:12 Albumin 3.7 g/dL (3.5-5.2) 02/12/22 11:12 Globulin 3.2 g/dL (1.3-4.6) 02/12/22 11:12 TSH 1.38 uIU/mL (0.27-4.20) 02/12/22 11:12 Urine Color Yellow (Yellow) 02/12/22 11:47 Urine Appearance Clear (CLEAR) 02/12/22 11:47 Urine pH 5 (5-7) 02/12/22 11:47 Ur Specific [place] 1.015 (1.005-1.030) 02/12/22 11:47 Urine Protein 3+ (Negative) H 02/12/22 11:47 Urine Glucose (UA) Norm (Normal) 02/12/22 11:47 Urine Ketones Negative (Negative) 02/12/22 11:47 Urine Blood Neg (Negative) 02/12/22 11:47 Urine Nitrate Negative (Negative) 02/12/22 11:47 Urine Bilirubin Neg (Negative) 02/12/22 11:47 Urine Urobilinogen Norm mg/dL (Negative) 02/12/22 11:47 Ur Leukocyte Esterase Negative (Negative) 02/12/22 11:47 Urine RBC None /hpf (0-2) 02/12/22 11:47 Urine WBC None /hpf (0-5) 02/12/22 11:47 Ur Squamous Epith Cells 0-4 /hpf (0-5) H 02/12/22 11:47 Amorphous Sediment Not Reportable 02/12/22 11:47 Urine Bacteria Trace /hpf (NONE) 02/12/22 11:47 Urine Mucus Trace /hpf 02/12/22 11:47 Salicylates 0.5 mg/dL (3-10) L 02/12/22 11:12 Urine Opiates Screen Negative ng/mL (Negative) 02/12/22 11:47 Acetaminophen < 5.0 ug/mL (10-30) L 02/12/22 11:12 Ur Barbiturates Screen Negative ng/mL (Negative) 02/12/22 11:47 Ur Phencyclidine Scrn Negative ng/mL (Negative) 02/12/22 11:47 Ur Amphetamines Screen Negative ng/mL (Negative) 02/12/22 11:47 U Benzodiazepines Scrn Negative ng/mL (Negative) 02/12/22 11:47 Urine Cocaine Screen Negative ng/mL (Negative) 02/12/22 11:47 U Marijuana (THC) Screen Negative ng/mL (Negative) 02/12/22 11:47 Ethyl Alcohol < 10 mg/dL (0-10) 02/12/22 11:12 Discharge Plan Discharge Patient Disposition: Home Clinical Impression: Altered behavior Condition: Stable Prescriptions: No Action atorvastatin 20 mg tablet 20 mg PO QPM 0RF warfarin 7.5 mg tablet 7.5 mg PO DAILY@16 0RF lisinopril 20 mg tablet 20 mg PO BEDTIME 0RF Hold Instructions: Resume on 02/15/21. clonidine HCl 0.3 mg tablet 0.3 mg PO TID 0RF tamsulosin 0.4 mg capsule 0.4 mg PO BEDTIME 0RF hydralazine 100 mg tablet 100 mg PO TID 0RF diltiazem HCl 120 mg capsule,extended release 24hr 120 mg PO QAM 0RF furosemide 20 mg tablet 20 mg PO QAM PRN (Reason: Edema) 0RF Hold Instructions: Resume on 02/28/21. after PCP followup visit potassium chloride 10 mEq tablet extended release 10 meq PO DAILY 0RF tramadol 50 mg tablet 50 mg PO Q6H PRN (Reason: Pain) 0RF bisacodyl 10 mg Suppository 10 mg HI DAILY PRN (Reason: Constipation) 0RF metformin 1,000 mg tablet 1,000 mg PO BID 0RF bisacodyl 5 mg Tablet,Delayed Release (Dr/Ec) 10 mg PO DAILY PRN (Reason: Constipation) 0RF gabapentin 100 mg Capsule 100 mg PO BEDTIME 0RF glipizide 5 mg tablet 5 mg PO BID 0RF Multi M Vitamin Tablet 1 tab PO DAILY 0RF Novolog Flexpen U-100 Insulin 100 unit/mL (3 mL) insulin pen 3 unit SUBCUT BID 0RF Lantus Solostar U-100 Insulin 100 unit/mL (3 mL) insulin pen 40 unit SUBCUT BEDTIME 0RF Discharge Orders: Discharge ED (Routine); Ordered 02/12/22 Ordered By: Fabian Ramos Referrals: Destiny Bates MD [Primary Care Provider] - Discharge Diet: Advance as tolerated Discharge Activity: Resume usual activity Activity Restrictions/Additional Instructions: Thank you for visiting the emergency department. You were seen and evaluated for aggressive behavior/behavior change. The exact cause of your symptoms is unclear though does not appear to need hospitalization at this time. I recommend reevaluation by your normal physician in the next day or 2. Please return to the emergency department for worsening symptoms, thoughts of hurting yourself or anyone else, or anything else that you are concerned about a feel needs emergency department evaluation. Coding Level of Care Code ED Shuttle Fitting Supervisor for Sergio Dahl
[2022-02-12 11:19] LABS: Basophils # 0.1 10^3/uL (0.0-0.1); Basophils % 0.7 %; Eosinophils # 0.2 10^3/uL (0.0-0.8); Eosinophils % 1.9 %; Lymphocytes # 1.3 10^3/uL (0.8-4.8); Lymphocytes % 16.1 %; Mean Corpuscular HGB Conc 34.8 g/dL (30.0-36.0); Mean Corpuscular Hemoglobin 32.5 pg (28.0-34.0); Mean Corpuscular Volume 93.3 fl (80-94); Mean Platelet Volume 9.4 fL (7.4-10.4); Monocytes # 0.7 10^3/uL (0.2-0.9); Monocytes % 8.6 %; Neutrophils # 5.94 10^3/uL (1.8-7.7); Neutrophils % 72.1 %; Nucleated Red Blood Cells % 0 %; Platelet Count 227 10^3/cmm (130-400); Red Blood Count 4.93 10^6/uL (4.1-5.3); Red Cell Distribution Width 12.1 % (12.1-15.1); White Blood Count 8.3 10^3/uL (4.0-10.0)
[2022-02-12 11:50] LABS: Troponin(5th) Baseline 23 ng/L (0-15)
[2022-02-12 11:55] LABS: Alanine Aminotransferase 18 U/L (0-41); Albumin Level 3.7 g/dL (3.5-5.2); Alkaline Phosphatase 109 IU/L (40-130); Anion Gap 15.3 (5-19); Aspartate Amino Transferase 20 U/L (0-40); Blood Urea Nitrogen 19 mg/dL (8-23); Calcium 8.9 mg/dL (8.5-10.5); Carbon Dioxide 24 mmol/L (22-29); Chloride 100 mmol/L (98-107); Creatinine Clr Calc Pharmacy 61.3082; Globulin 3.2 g/dL (1.3-4.6); Glucose 99 mg/dL (65-115); Osmolality Calculated 282 mOsm/kg (285-295); Potassium 4.3 mmol/L (3.5-5.1); Salicylate 0.5 mg/dL (3-10); Sodium 135 mmol/L (136-145); Thyroid Stimulating Hormone 1.38 uIU/mL (0.27-4.20); Total Bilirubin 0.5 mg/dL (0.15-1.2); Total Protein 6.9 g/dL (6.6-8.7)
[2022-02-12 11:56] LABS: Acetaminophen < 5.0 ug/mL (10-30); Alcohol Level < 10 mg/dL (0-10)
[2022-02-12 12:17] LABS: Blood Urine Neg (Negative); Glucose Urine UA Norm (Normal); Ketones Urine Negative (Negative); Nitrate Urine Negative (Negative); Protein Urine 3+ (Negative); Specific Gravity, Urine 1.015 (1.005-1.030); Urine Appearance Clear (CLEAR); Urine Color Yellow (Yellow); pH Urine 5 (5-7)
[2022-02-12 12:18] LABS: Add Urine Microscopic? YES; Bilirubin Urine Neg (Negative); Leukocyte Esterase Urine Negative (Negative); Urobilinogen Urine Norm (Negative)
[2022-02-12 12:19] LABS: Add Urine Culture? No; Bacteria Urine TRACE /hpf; Mucus Urine TRACE /hpf; Squamous Epithelial Cell Urine 0-4 /hpf (0-5)
[2022-02-12 12:20] LABS: Amphetamines Screen Urine Negative (Negative); Barbiturates Screen Urine Negative (Negative); Benzodiazepines Screen Urine Negative (Negative); Cocaine Screen Urine Negative (Negative); Opiate Screen Urine Negative (Negative); PCP Screen Urine Negative (Negative); THC Screen Urine Negative (Negative)
[2022-02-12 13:58] LABS: Troponin 5 2HR 22.96 ng/L (0-15); Troponin 5 2HR Delta -0.04 ABS# (0-10)
== END 2022-02-12 15:33 | disposition home or self-care (01) ==
PROVIDERS: Emergency Medicine; Emergency Provider Emergency Medicine; PCP Family Medicine
DX: R46.89 Other symptoms and signs involving appearance and behavior (principal); Z79.01 Long term (current) use of anticoagulants; Z79.4 Long term (current) use of insulin; I25.10 Atherosclerotic heart disease of native coronary artery without angina pectoris; Z86.73 Personal history of transient ischemic attack (TIA), and cerebral infarction without residual deficits; E78.5 Hyperlipidemia, unspecified; I10 Essential (primary) hypertension; E11.9 Type 2 diabetes mellitus without complications; Z87.891 Personal history of nicotine dependence
CPT/HCPCS: 70450; 80053; 80306; 80307; 81001; 84443; 84484; 85025; 93005; 99285

== ENCOUNTER 2023-07-08 12:26 | Emergency (ER) | payer MEDICARE, MEDICAID, SELFPAY ==
[2023-07-08 12:27] VITALS: BP 146/79; PULSE 97; RESP 18; TEMP 36.9; O2SAT 93; BMI 30.7
[2023-07-08 12:41] VITALS: BP 146/79; PULSE 97; RESP 18; O2SAT 93
[2023-07-08 13:07] VITALS: BP 163/93; PULSE 97; O2SAT 92
--- NOTE | 2023-07-08 13:10 | XRR_ITS ---
PROCEDURE INFORMATION: Exam: XR Chest Exam date and time: 07/08/2023 1:18 PM Age: 73 years old Clinical indication: Fever; Additional info: Cough TECHNIQUE: Imaging protocol: Radiologic exam of the chest. Views: 1 view. COMPARISON: CT chest con [id number] 01/20/2021 4:22 PM FINDINGS: Lungs: Central interstitial markings are indistinct wall and there is mild bilateral pulmonary ground-glass opacity. There is dense retrocardiac consolidation on the left Pleural spaces: There is no pleural effusion or pneumothorax. Heart/Mediastinum: There is mild enlargement of the cardiac silhouette. Bones/joints: Bones are unremarkable. XR/XR chest 1V [id number] IMPRESSION: 1. Left lower lobe consolidation suspicious for pneumonia. 2. Possible pulmonary edema.
--- NOTE | 2023-07-08 13:10 | ECG_ITS ---
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 Measurements Intervals [place] Rate: 85 P: 0 MD: 0 QRS: -20 QRSD: 95 T: 81 QT: 321 QTc: 382 Interpretive Statements ATRIAL FIBRILLATION SEPTAL MYOCARDIAL INFARCTION , OF INDETERMINATE AGE [40+ ms Q WAVE IN V1/V2] Compared to ECG 02/12/2022 13:38:17 Myocardial infarct finding now present Electronically Signed On 07-08-2023 21:33:39 ENVIRONMENTAL COMPLIANCE ENGINEER by Pearl Lopez M.D. [id number]
--- NOTE | 2023-07-08 13:12 | ED_ITS ---
HPI - General Adult General: Chief complaint: Nausea/Vomiting/Diarrhea Stated complaint: N/V; FEVER Time Seen by Provider: 07/08/23 12:38 Source: patient and other ([facility] report) Mode of arrival: EMS Limitations: no limitations History of Present Illness: This patient was transported by EMS from [facility]. The report received by our ER staff from their nursing staff was that he was having nausea and vomiting and elevated blood pressure and low-grade temperature. My interview of the patient revealed the following history from him: He was eating his breakfast of breakfast cereal and was eating fast and got some of it down the wrong tube according to him and he had an episode where he had coughing and choking and this went on for a few minutes and then he eventually had an episode of emesis. He states he feels fine at this time and denies any chest pain, shortness of breath, fevers chills or other constitutional complaints at this time. Associated symptoms: Reports vomiting; Deny chest pain, dyspnea, headache(s), nausea, rash, palpitations or syncope Review of Systems 2 Const: Denies: fever(s) or chills Eyes: Denies: change in vision ENMT: Denies: throat pain, odynophagia, nasal discharge or nasal congestion Card: Denies: chest pain, palpitations, syncope or pre-syncope Resp: Reports: productive cough; Denies: dyspnea, non-productive cough, wheezing or stridor GI: Reports: vomiting; Denies: abdominal pain, nausea or diarrhea : Denies: flank pain, difficulty urinating, dysuria or urinary frequency Musc: Denies: neck pain, back pain, extremity pain or extremity swelling Skin/Breast: Denies: rash Neuro: Denies: headache(s), numbness in extremities or weakness in extremities Loco/Lymph: Denies: easy bruising or easy bleeding PFS ED PFSH: Medical History Atrial fibrillation with rapid ventricular response Peripheral neuropathy CAD (coronary artery disease) Depression Chronic anticoagulation CVA (cerebral vascular accident) 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 CKD (chronic kidney disease) Baseline creatinine 1.9 Poorly controlled type 2 diabetes mellitus Dyslipidemia DVT (deep venous thrombosis) HTN (hypertension) Polycythemia Atrial fibrillation Surgical History No pertinent past surgical history Family History Other CAD (coronary artery disease) Cancer Social History Smoking and tobacco/nicotine status: former use of tobacco/nicotine Alcohol intake: never Substance/Drug Use: never Caregiver/support person: No Household members: none Housing: House Physical Exam Narrative: EXAM NARRATIVE: The patient appears to be comfortable and makes good eye contact he speaks in goal-directed sentences. Const: COMMON NORMALS: no acute distress, patient oriented x3, no limitations, healthy appearing and alert GENERAL APPEARANCE: cooperative NUTRITIONAL APPEARANCE: overweight ORIENTATION/CONSCIOUSNESS: Yes awake, Yes oriented to person and Yes oriented to place HENMT: COMMON NORMALS: normocephalic, Normal nasal mucous membranes and turbinates present, moist oral mucous membranes and oropharynx normal HEAD & SCALP: normocephalic NOSE: Normal nasal mucous membranes and turbinates present Eye: COMMON NORMALS: Equal, round and reactive pupils present, EOMs intact bilaterally and conjunctivae normal CONJUNCTIVA: Yes conjunctivae normal PUPIL: Yes Equal, round and reactive pupils present Neck/C-Spine: COMMON NORMALS: full ROM, no lymphadenopathy, supple and no JVD Chest: COMMONS NORMALS: normal inspection of the chest and normal palpation of entire chest wall Resp: COMMON NORMALS: normal respiratory effort, No retractions, No use of accessory muscles and percussion normal AUSCULTATION: no rhonchi, no wheezes and diminished lung sounds PERCUSSION: percussion normal Cardio: COMMON NORMALS: no JVD, regular rate, regular rhythm, No murmurs present (Cardio) and Peripheral pulses 2+ throughout RATE: regular rate RHYTHM: regular rhythm PERIPHERAL PULSES: Peripheral pulses 2+ throughout GI: COMMON NORMALS: Normal to inspection, nondistended, normoactive bowel sounds present, Soft to palpation, non-tender and no masses INSPECTION: Yes central obesity PALPATION: Yes Soft to palpation Back/Pelvis: COMMON NORMALS: thoracic and lumbar spine normal to inspection and no thoracic nor lumbar tenderness Extremity: COMMON NORMALS: normal to inspection, full ROM, capillary refill normal, no calf tenderness and no pedal edema Neuro: COMMON NORMALS: patient oriented x3, moves all extremities and no focal motor deficits SENSORIUM/ORIENTATION: Yes alert, Yes oriented to person and Yes oriented to place CRANIAL NERVES: Yes CN normal except as noted Psych: COMMON NORMALS: mental status grossly normal Skin: COMMON NORMALS: no rashes or lesions noted, no wounds, turgor normal and no petechiae GENERAL SKIN EXAM: no rashes or lesions noted and turgor normal Course Reevaluation(s): Reevaluation #1: The patient remains comfortable. He is not in any acute distress. Reevaluation reveals diminished breath sounds in the bases bilaterally but no wheezes rhonchi or crackles. Pulse oximetry is 92 to 93% on room air with a fair waveform. Heart rate is controlled and blood pressure is in the normal range. Chest x-rays notable for a left lower lobe infiltrate. Certainly is stated history right support aspiration pneumonia but did be rather extreme for him to develop radiographic changes within the 3 to 4 hours of the episode. However he is very clinically stable and certainly suitable for management as an outpatient. Will go ahead and start him on clindamycin given that there is a potential risk for aspiration and follow his course to resolution as an outpatient in the [facility]. Time: 13:58 Vital Signs: Vital signs: Vital Signs Temperature 98.4 F 07/08/23 12:27 Pulse Rate 97 07/08/23 13:07 Respiratory Rate 18 07/08/23 12:41 Blood Pressure 163/93 07/08/23 13:07 Pulse Oximetry 92 07/08/23 13:07 Oxygen Delivery Me thod Room Air 07/08/23 13:07 MDM - General Adult Medical Decision Making This patient was transported to the emergency department from [facility] with somewhat of a mixed history however apparently been having some coughing and questionable fevers. He also apparently had some coughing today associated with eating his breakfast in an upright position and states he felt like he had a swallow some of his breakfast cereal down the wrong pipe. Clinical examination revealed to be pleasant cooperative and in no acute distress. He is respiratory status was reassuring without any evidence of tachypnea, retractions, or significant adventitious sounds or signs of respiratory distress. He did have diminished breath sounds at the bases. The remainder of his clinical examination was also reassuring. Given his clinical picture a workup was not initiated that included EKG which revealed atrial fib rillation which is chronic for him and a controlled ventricular response without acute or ischemic changes. A chest x-ray was obtained because of his recent history and was notable for left lower lobe infiltrate. The latter finding was somewhat of a surprise given his reassuring clinical picture but does suggest that perhaps he has had a smoldering lower respiratory infection. He did not display any signs of serious infection today he was afebrile, he was not tachycardic, tachypneic not hypoxic or otherwise concerning in his vital signs or clinical picture. Because of the possible questionable aspiration risk although development of current chest x-ray findings would be rather unusual and short duration of 3 to 4 hours we will go ahead and cover him with clindamycin given his penicillin allergy. He is clinically stable to be managed as an outpatient at the long-term care facility with good return precautions and primary care follow-up. Medical Records I reviewed the patient's medical records. Prior history of controlled atrial fibrillation as well as a history of chronic dementia. Lab Data I reviewed the patient's lab results. Radiology Impressions Chest X-Ray 07/08/23 13:10 IMPRESSION: 1. Left lower lobe consolidation suspicious for pneumonia. 2. Possible pulmonary edema. ADDENDUM: 07/08/231346 THIS REPORT CONTAINS FINDINGS THAT MAY BE CRITICAL TO PATIENT CARE. The findings were verbally communicated via telephone conference with MANDEEP NICHOLE at 1:45 PM COLLAR TACKER on 07/08/2023. The findings were acknowledged and understood. All radiology interpretation(s) finalized by discharge EKG Data EKG 1: I personally reviewed and interpreted this EKG as follows: Interpretation: Contemporaneous review of his EKG reveals a ventricular rate of 85 bpm. Underlying rhythm appears to be atrial fibrillation with a controlled ventricular response. Normal corrected QT interval. No acute ischemic ST-T wave changes noted at this time. This rhythm is consistent with prior EKGs available within the system. Computer generated interpretation: Chest X-Ray 07/08/23 13:10 IMPRESSION: 1. Left lower lobe consolidation suspicious for pneumonia. 2. Possible pulmonary edema. ADDENDUM: 07/08/231346 THIS REPORT CONTAINS FINDINGS THAT MAY BE CRITICAL TO PATIENT CARE. The findings were verbally communicated via telephone conference with MANDEEP NICHOLE at 1:45 PM COLLAR TACKER on 07/08/2023. The findings were acknowledged and understood. Discharge Plan Discharge Patient Disposition: Home Clinical Impression: Atrial fibrillation, chronic Pneumonia Qualifiers: Pneumonia type: due to unspecified organism Laterality: left Lung location: lower lobe of lung Qualified Code(s): J18.9 - Pneumonia, unspecified organism Condition: Stable Prescriptions: New clindamycin HCl 150 mg capsule 150 mg PO TID 7 Days Qty: 21 0RF No Action lisinopril 20 mg tablet 20 mg PO BID Hold Instructions: Resume on 02/15/21. clonidine HCl 0.3 mg tablet 0.3 mg PO TID tamsulosin 0.4 mg capsule 0.4 mg PO BEDTIME hydralazine 100 mg tablet 100 mg PO TID tramadol 50 mg tablet 50 mg PO Q6H PRN (Reason: Pain) bisacodyl 10 mg Suppository 10 mg [place] DAILY PRN (Reason: Constipation) metformin 1,000 mg tablet 1,000 mg PO BID bisacodyl 5 mg Tablet,Delayed Release (Dr/Ec) 10 mg PO DAILY PRN (Reason: Constipation) gabapentin 100 mg Capsule 100 mg PO BEDTIME glipizide 5 mg tablet 5 mg PO BID insulin glargine [Lantus Solostar U-100 Insulin] 100 unit/mL (3 mL) insulin pen 55 unit SUBCUT BEDTIME acetaminophen 325 mg Tablet 325 mg PO QID PRN (Reason: Pain) atorvastatin 10 mg tablet 10 mg PO BEDTIME diltiazem HCl 360 mg capsule,extended release 24hr 360 mg PO DAILY hydrochlorothiazide 25 mg tablet 25 mg PO DAILY Eliquis 5 mg tablet 5 mg PO BID [facility] mg-15 unit- 4.5 mg-2.5 mg Tablet,Chewable 1 tab PO BEDTIME Discharge Orders: Discharge ED (Routine); Ordered 07/08/23 Ordered By: Mandeep Nichole Referrals: Destiny Bates MD [Primary Care Provider] - 4-7 days Discharge Diet: Usual diet Discharge Activity: Resume usual activity Patient Instructions: Opioid Safety, Pain Management Activity Restrictions/Additional Instructions: This patient has a left lower lobe infiltrate consistent with pneumonia. Is not clear exactly to the etiology although there may be a risk of aspiration given his history. He is being discharged back to your facility on clindamycin that he should take 150 mg 3 times a day for the next 7 days. He was given his first dose in the emergency department 300 mg loading dose. He should be reevaluated by his primary care physician in approximately 4 to 7 days or sooner if needed and we are welcome to reevaluate him in the emergency department should he develop any new or worsening symptoms. Coding Level of Care Code ED Musical Instrument Mechanic for Sergio Dahl
--- NOTE | 2023-07-08 13:23 | PC.PHAR ---
PT HERE FROM [facility]- MEDICATIONS VERIFIED USING MAR FROM THE PTS FACILITY
[2023-07-08] MEDS: clindamycin 150 mg Capsule 300 MG PO (14:20)
[2023-07-08 14:21] VITALS: BP 139/85; PULSE 97; O2SAT 96
== END 2023-07-08 15:15 | disposition home or self-care (01) ==
PROVIDERS: Emergency Provider Emergency Medicine; PCP Family Medicine
DX: I48.20 Chronic atrial fibrillation, unspecified (principal); J18.9 Pneumonia, unspecified organism; Z79.01 Long term (current) use of anticoagulants; Z79.84 Long term (current) use of oral hypoglycemic drugs; Z79.4 Long term (current) use of insulin; Z87.891 Personal history of nicotine dependence; I25.10 Atherosclerotic heart disease of native coronary artery without angina pectoris; Z86.73 Personal history of transient ischemic attack (TIA), and cerebral infarction without residual deficits; E11.22 Type 2 diabetes mellitus with diabetic chronic kidney disease; I12.9 Hypertensive chronic kidney disease with stage 1 through stage 4 chronic kidney disease, or unspecified chronic kidney disease; N18.9 Chronic kidney disease, unspecified
CPT/HCPCS: 71045; 93005; 99284

== ENCOUNTER 2023-09-28 19:33 | Emergency (ER) | payer MEDICARE, MEDICAID, SELFPAY ==
[2023-09-28 19:40] VITALS: BP 163/86; PULSE 59; RESP 16; TEMP 37.6; O2SAT 98; BMI 31.2
--- NOTE | 2023-09-28 20:03 | CTR_ITS ---
PROCEDURE INFORMATION: Exam: CT Head Without Contrast Exam date and time: 09/28/2023 8:27 PM Age: 73 years old Clinical indication: Injury or trauma; Blunt trauma (contusions or hematomas); Patient HX: EMS arrival from [facility] for fall. Patient slipped forward out of wheelchair striking frontal on bedside dresser. Anticoagulated with history of large RT side CVA. TECHNIQUE: Imaging protocol: Computed tomography of the head without contrast. Radiation optimization: All CT scans at this facility use at least one of these dose optimization techniques: automated exposure control; mA and/or kV adjustment per patient size (includes targeted exams where dose is matched to clinical indication); or iterative reconstruction. COMPARISON: CT head wo con* [id number] 02/12/2022 11:15 AM RADIATION DOSE METRICS: Total DLP (mGy-cm): 1096.29 FINDINGS: Brain: Old right MCA territory infarct with encephalomalacia. Bilateral periventricular white matter and centrum semiovale hypodensities consistent with chronic ischemic small vessel disease. No intracranial bleed, recent infarct or intracranial mass. Cerebral ventricles: No ventriculomegaly. Pituitary gland and sella: Partially empty sella. Paranasal sinuses: There is minimal mucosal disease of the right sphenoid sinus and right ethmoid air cells. Mastoid air cells: Visualized mastoid air cells are well aerated. Bones/joints: Unremarkable. No acute fracture. Soft tissues: Unremarkable. CT/CT head wo con* [id number] IMPRESSION: No intracranial posttraumatic changes.
--- NOTE | 2023-09-28 20:03 | CTR_ITS ---
PROCEDURE INFORMATION: Exam: CT Cervical Spine Without Contrast Exam date and time: 09/28/2023 8:31 PM Age: 73 years old Clinical indication: Injury or trauma; Blunt trauma; Patient HX: EMS arrival from [facility] for fall. Patient slipped forward out of wheelchair striking frontal on bedside dresser. Anticoagulated with history of large RT side CVA. TECHNIQUE: Imaging protocol: Computed tomography of the cervical spine without contrast. Radiation optimization: All CT scans at this facility use at least one of these dose optimization techniques: automated exposure control; mA and/or kV adjustment per patient size (includes targeted exams where dose is matched to clinical indication); or iterative reconstruction. COMPARISON: CT cervical spin wo con* [id number] 03/21/2021 9:27 AM RADIATION DOSE METRICS: Total DLP (mGy-cm): 810.07 FINDINGS: Bones/joints: There is moderate degenerative disease at C4-C5 with disc space narrowing, anterior and posterior osteophytes. No compression deformities. No spondylolisthesis. Chronic fracture deformity of the spinous process of C7. Lungs: Lung apices are normal. Vasculature: There are bilateral carotid calcifications. Soft tissues: Unremarkable. CT/CT cervical spin wo con* [id number] IMPRESSION: No posttraumatic changes in the cervical spine.
--- NOTE | 2023-09-28 20:04 | W.ED.WOUNDLC ---
HPI - Wound/Laceration General: Chief Complaint: Wound/Laceration Stated Complaint: FALL Time Seen by Provider: 09/28/23 19:48 History of Present Illness: Patient is a 73-year-old male with a past medical history significant for coronary artery disease, prior CVA, chronic kidney disease, type 2 diabetes mellitus, hypertension, and atrial fibrillation who presents to the emergency department for evaluation of a head injury post fall. Patient reports that he was sitting on the side of his bed when he accidentally slipped out of the bed and hit the left side of his scalp on a side table. Admits to a moderate amount of bleeding at onset of injury that is since been controlled with compression. Patient reports that he is taking anticoagulation medication but is unsure of the exact medication. Chart review reveals the patient is taking Eliquis. Patient reports that he also landed on his bilateral knees. Admits to abrasions to the anterior aspect of both of his knees. Patient, however, he is not concerned about his knees and does not want any imaging at this time. Patient denies loss conscious, nausea, vomiting, visual disturbances, headache, neck pain, new onset numbness/tingling, or any other associated symptoms. Patient reports that he is up-to-date on his tetanus prophylaxis. No other complaints at this time. Associated symptoms: Denies chills, fever(s), nausea, syncope or vomiting Review of Systems General: Reports: 10 or more systems reviewed and unremarkable except in HPI and below Const: Denies: fever(s) or chills Eyes: Denies: change in vision or blurry vision ENMT: Denies: throat pain, ear or mastoid pain, ear discharge, nasal discharge or nasal congestion Card: Denies: chest pain, palpitations, irregular heart rhythm, lightheadedness or syncope Resp: Denies: dyspnea, productive cough, non-productive cough, wheezing or stridor GI: Denies: abdominal pain, nausea or vomiting Musc: Denies: neck pain, back pain or extremity pain Skin/Breast: Reports: other (Laceration) Neuro: Denies: headache(s), weakness in extremities or sensory changes Psych: Denies: anxiety or depression PFS ED PFSH: Medical History Atrial fibrillation with rapid ventricular response Peripheral neuropathy CAD (coronary artery disease) Depression Chronic anticoagulation CVA (cerebral vascular accident) 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 CKD (chronic kidney disease) Baseline creatinine 1.9 Poorly controlled type 2 diabetes mellitus Dyslipidemia DVT (deep venous thrombosis) HTN (hypertension) Polycythemia Atrial fibrillation Surgical History No pertinent past surgical history Family History Other CAD (coronary artery disease) Cancer Social History Smoking and tobacco/nicotine status: former use of tobacco/nicotine Alcohol intake: never Substance/Drug Use: never Caregiver/support person: No Household members: none Housing: House Physical Exam Const: COMMON NORMALS: no acute distress and patient oriented x3 HENMT: COMMON NORMALS: normocephalic HEAD & SCALP: normocephalic OTHER: Approximately 2 cm laceration is noted to the left parietal scalp. Bleeding currently controlled in the emergency department. No Ac sign or raccoon sign noted. No other evidence of head trauma appreciated anywhere on examination. Posterior oropharynx is clear without swelling, lesions, erythema, or exudates. Bilateral tympanic membranes pearly zuñiga without evidence of effusion or hemotympanums. Eye: COMMON NORMALS: Equal, round and reactive pupils present, EOMs intact bilaterally, conjunctivae normal and no scleral icterus CONJUNCTIVA: Yes conjunctivae normal PUPIL: Yes Equal, round and reactive pupils present Neck/C-Spine: COMMON NORMALS: full ROM, supple, no meningeal signs and no JVD Resp: COMMON NORMALS: normal respiratory effort, No retractions, No use of accessory muscles and clear to auscultation bilaterally AUSCULTATION: clear to auscultation bilaterally Cardio: COMMON NORMALS: no JVD, regular rate and regular rhythm RATE: regular rate RHYTHM: regular rhythm GI: COMMON NORMALS: Normal to inspection, nondistended, normoactive bowel sounds present, Soft to palpation and non-tender PALPATION: Yes Soft to palpation : COMMON NORMALS: Yes no CVA tenderness BLADDER/KIDNEY EXAM: Yes no CVA tenderness Back/Pelvis: COMMON NORMALS: no CVA tenderness, thoracic and lumbar spine normal to inspection and no thoracic nor lumbar tenderness Extremity: NARRATIVE EXTREMITY EXAM: 2 small abrasions are noted to the patient's anterior bilateral knees. The abrasions are shallow and in no need of repair at this time. No laxity is felt to the bilateral ACL, PCL, MCL, or LCL's. Patient has full passive and active range of motion of the bilateral lower extremities. Moving all other bilateral upper and lower extremities without weakness or deficit. Neuro: COMMON NORMALS: patient oriented x3, CN's II-XII intact bilaterally, moves all extremities and no focal motor deficits MENINGEAL SIGNS: Yes no meningeal signs Procedures Laceration Laceration 1: Site: scalp (Left parietal scalp) Side (If applicable): left Size (cm): 2 Description: linear Depth: simple, single layer Local Anesthetic: lidocaine 1% Pre-repair: wound explored, irrigated extensively and deep structures intact Skin layer closed with: other (4 rosalva) Course Vital Signs: Vital signs: Vital Signs Temperature 99.6 F 09/28/23 19:40 Pulse Rate 64 09/28/23 22:03 Respiratory Rate 16 09/28/23 19:40 Blood Pressure 177/32 09/28/23 22:03 Pulse Oximetry 98 09/28/23 22:03 Oxygen Delivery Me thod Room Air 09/28/23 22:03 MDM - Wound/Laceration Medical Decision Making Patient is a 73-year-old male with a past medical history significant for coronary artery disease, prior CVA, chronic kidney disease, type 2 diabetes mellitus, hypertension, and atrial fibrillation who presents to the emergency department for evaluation of a head injury post fall. On physical examination patient is nontoxic and in no acute distress. Vital signs remained stable throughout the ED course. Patient is afebrile. Patient is neurovascular intact. Patient is alert and oriented x 4. No focal neurological deficits noted on examination. Patient reports that he leaned forward and slid off the side of the bed. Patient reports that he did not get lightheaded or dizzy prior to the fall. Patient denies loss of consciousness. CT of the cervical spine showed no posttraumatic changes in the cervical spine. CT of the head without contrast showed no intracranial posttraumatic changes. The laceration was thoroughly irrigated, cleaned, and repaired in the emergency department without any difficulties using rosalva. Patient reports he is up-to-date on his tetanus prophylaxis. No evidence of nerve injury, tendon damage, or foreign body. Patient was instructed over wound care and signs of secondary infection and to return to the emergency department if those symptoms should develop. Patient stated understanding of all discharge instructions was agreeable to plan of care. Differential diagnosis includes but is not limited to laceration, abrasion, contusion, intracranial hemorrhage, fracture Lab Data Radiology Impressions Cervical Spine CT 09/28/23 20:03 IMPRESSION: No posttraumatic changes in the cervical spine. Head CT 09/28/23 20:03 IMPRESSION: No intracranial posttraumatic changes. All radiology interpretation(s) finalized by discharge Discharge Plan Discharge Patient Disposition: Home Clinical Impression: Laceration of head Condition: Stable Prescriptions: No Action lisinopril 20 mg tablet 20 mg PO BID Hold Instructions: Resume on 02/15/21. clonidine HCl 0.3 mg tablet 0.3 mg PO TID tamsulosin 0.4 mg capsule 0.4 mg PO BEDTIME hydralazine 100 mg tablet 100 mg PO TID tramadol 50 mg tablet 50 mg PO Q6H PRN (Reason: Pain) bisacodyl 10 mg Suppository 10 mg [place] DAILY PRN (Reason: Constipation) metformin 1,000 mg tablet 1,000 mg PO BID bisacodyl 5 mg Tablet,Delayed Release (Dr/Ec) 10 mg PO DAILY PRN (Reason: Constipation) gabapentin 100 mg Capsule 100 mg PO BEDTIME glipizide 5 mg tablet 5 mg PO BID insulin glargine [Lantus Solostar U-100 Insulin] 100 unit/mL (3 mL) insulin pen 55 unit SUBCUT BEDTIME acetaminophen 325 mg Tablet 325 mg PO QID PRN (Reason: Pain) atorvastatin 10 mg tablet 10 mg PO BEDTIME diltiazem HCl 360 mg capsule,extended release 24hr 360 mg PO DAILY hydrochlorothiazide 25 mg tablet 25 mg PO DAILY Eliquis 5 mg tablet 5 mg PO BID [facility] 50 mg-15 unit- 4.5 mg-2.5 mg Tablet,Chewable 1 tab PO BEDTIME Discharge Orders: Discharge ED (Routine); Ordered 09/28/23 Ordered By: Phoenix Michelle Referrals: Destiny Bates MD [Primary Care Provider] - Patient Instructions: Laceration (ED) Activity Restrictions/Additional Instructions: Wash twice daily with soap and water and apply antibiotic ointment. Increase oral hydration. Tylenol as needed for pain. Follow-up with your primary care provider in approximately 7 to 10 days for wound check and suture removal. Do not soak the rosalva. No swimming until rosalva are removed. Return to the emergency department for any rapid or worsening symptoms to include but not limited to redness to the affected area, red streaking, purulent drainage, fevers, chills, nausea, vomiting, or as needed. Coding Level of Care Code ED Fish Conservationist for Sergio Dahl
[2023-09-28 22:03] VITALS: BP 177/32; PULSE 64; O2SAT 98
[2023-09-28] MEDS: neomycin-poly-bacitracin oint 28 gm 1 APPLIC TOPICAL (23:07)
== END 2023-09-28 23:31 | disposition home or self-care (01) ==
PROVIDERS: Emergency Provider Physician Assistant; PCP Family Medicine
DX: S01.01XA Laceration without foreign body of scalp, initial encounter (principal); S80.212A Abrasion, left knee, initial encounter; S80.211A Abrasion, right knee, initial encounter; Z79.84 Long term (current) use of oral hypoglycemic drugs; Z79.4 Long term (current) use of insulin; Z79.01 Long term (current) use of anticoagulants; I25.10 Atherosclerotic heart disease of native coronary artery without angina pectoris; Z86.73 Personal history of transient ischemic attack (TIA), and cerebral infarction without residual deficits; I12.9 Hypertensive chronic kidney disease with stage 1 through stage 4 chronic kidney disease, or unspecified chronic kidney disease; E11.22 Type 2 diabetes mellitus with diabetic chronic kidney disease; N18.9 Chronic kidney disease, unspecified; E78.5 Hyperlipidemia, unspecified; Z87.891 Personal history of nicotine dependence; W06.XXXA Fall from bed, initial encounter
CPT/HCPCS: 12001; 70450; 72125; 99284

== ENCOUNTER 2024-01-24 12:44 | Emergency (ER) | payer MEDICARE, MEDICAID, SELFPAY ==
[2024-01-24] VITALS (21 sets, daily range): BP systolic 97–147; BP diastolic 60–78; PULSE 30–50; RESP 9–22; TEMP 36.1; O2SAT 89–98; BMI 24.3
--- NOTE | 2024-01-24 12:51 | CTR_ITS ---
PROCEDURE INFORMATION: Exam: CT Head Without Contrast Exam date and time: 01/24/2024 2:15 PM Age: 73 years old Clinical indication: Weakness, extremity; Bilateral TECHNIQUE: Imaging protocol: Computed tomography of the head without contrast. Radiation optimization: All CT scans at this facility use at least one of these dose optimization techniques: automated exposure control; mA and/or kV adjustment per patient size (includes targeted exams where dose is matched to clinical indication); or iterative reconstruction. COMPARISON: CT head wo con* [id number] 09/28/2023 8:27 PM RADIATION DOSE METRICS: Total DLP (mGy-cm): 1033.49 FINDINGS: Brain: No hemorrhage. No edema. Areas of encephalomalacia noted in the right parietal and temporal lobes corresponding to old infarcts. Moderate diffuse cerebral atrophy and sequela of chronic small vessel ischemic disease. No mass effect. Cerebral ventricles: No ventriculomegaly. Paranasal sinuses: Visualized sinuses are unremarkable. No fluid levels. Mastoid air cells: Visualized mastoid air cells are well aerated. Bones: Unremarkable. No acute fracture. Soft tissues: Unremarkable. CT/CT head wo con* [id number] IMPRESSION: No acute intracranial abnormality.
--- NOTE | 2024-01-24 12:51 | XRR_ITS ---
PROCEDURE INFORMATION: Exam: XR Chest Exam date and time: 01/24/2024 1:01 PM Age: 73 years old Clinical indication: Patient HX: General weakness, possible heat exhaustion TECHNIQUE: Imaging protocol: Radiologic exam of the chest. Views: 1 view. COMPARISON: CR XR chest 1V [id number] 07/08/2023 1:18 PM FINDINGS: Lungs: Unremarkable. No consolidation. Pleural spaces: Unremarkable. No pleural effusion. No pneumothorax. Heart/Mediastinum: Unremarkable. No cardiomegaly. Bones/joints: Unremarkable. XR/XR chest 1V portable [id number] IMPRESSION: No acute findings.
--- NOTE | 2024-01-24 12:55 | ECG_ITS ---
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 Measurements Intervals [place] Rate: 45 P: 0 UT: 0 QRS: 64 QRSD: 83 T: 47 QT: 471 QTc: 407 Interpretive Statements ATRIAL FIBRILLATION WITH SLOW VENTRICULAR RESPONSE LOW QRS VOLTAGE IN EXTREMITY LEADS [QRS DEFLECTION < 0.5 mV IN LIMB LEADS] ST DEVIATION AND MODERATE T-WAVE ABNORMALITY, CONSIDER ANTEROLATERAL ISCHEMIA [-0.1+ mV T-WAVE IN V3-V6] Compared to ECG 07/08/2023 13:40:54 Low QRS voltage now present T-wave abnormality now present Possible ischemia now present Myocardial infarct finding no longer present Electronically Signed On 01-25-2024 13:59:03 CDT by Prateek Sandoval M.D. [email or web address] ot[facility] memorial hospitalRush Points/store/[id number] f
[2024-01-24 12:57] LABS: Basophils # 0.1 10^3/uL (0.0-0.1); Basophils % 1.1 %; Eosinophils # 0.4 10^3/uL (0.0-0.8); Eosinophils % 3.4 %; Hematocrit 43.2 % (37-53); Lymphocytes # 2.8 10^3/uL (0.8-4.8); Mean Corpuscular HGB Conc 35.4 g/dL (30-55); Mean Corpuscular Volume 90.4 fl (82-101); Mean Platelet Volume 9.8 fL (7.4-10.4); Monocytes # 1.1 10^3/uL (0.2-0.9); Monocytes % 9.1 %; Neutrophils # 7.29 10^3/uL (1.8-7.7); Neutrophils % 61.6 %; Nucleated Red Blood Cells % 0 %; Platelet Count 280 10^3/cmm (157-399); Red Blood Count 4.78 10^6/uL (3.85-5.65); Red Cell Distribution Width 12.5 % (12.1-15.1); White Blood Count 11.81 10^3/uL (3.29-11.43)
[2024-01-24] MEDS: sodium chloride 0.9% 1,000 ML 999 ML IV (13:09)
[2024-01-24 13:12] LABS: Alanine Aminotransferase 11 U/L (0-41); Albumin Level 4.2 g/dL (3.5-5.2); Alkaline Phosphatase 92 U/L (40-130); Anion Gap 18.9 (5-19); Aspartate Amino Transferase 13 U/L (0-40); Blood Urea Nitrogen 33 mg/dL (8-23); Calcium 9.6 mg/dL (8.5-10.5); Carbon Dioxide 23 mmol/L (22-29); Chloride 100 mmol/L (98-107); Creatine Phosphokinase 69 U/L (39-308); Creatinine Clr Calc Pharmacy 33.5752; Globulin 3.4 g/dL (1.3-4.6); Glucose 220 mg/dL (65-115); Magnesium 1.6 mg/dL (1.7-2.3); Osmolality Calculated 300 mOsm/kg (285-295); Potassium 3.9 mmol/L (3.5-5.1); Sodium 138 mmol/L (136-145); Total Bilirubin 0.4 mg/dL (0.15-1.2); Total Protein 7.6 g/dL (6.6-8.7)
--- NOTE | 2024-01-24 13:30 | ED_ITS ---
HPI - Weakness 2 General: Chief complaint: Weakness Stated complaint: general weakness.possible heat exh Time Seen by Provider: 01/24/24 12:45 Source: EMS Mode of arrival: EMS Limitations: no limitations History of Present Illness: 73-year-old male with history of stroke states he was outside the senior living today started feeling he is getting overheated got diaphoretic and felt generally weak. EMS was called he states he feels improved now that he is out of the heat he denies any chest pain denies any fever denies headache Associated symptoms: Denies chest pain, chills, fever(s), headache(s), nausea or vomiting Review of Systems 2 Const: Reports: malaise; Denies: fever(s), chills, body aches or change in appetite Eyes: Denies: blurry vision or eye discomfort ENMT: Denies: throat pain or dental pain Card: Denies: chest pain Resp: Denies: dyspnea GI: Denies: abdominal pain, nausea, vomiting or diarrhea Musc: Denies: neck pain or back pain Skin/Breast: Denies: rash Neuro: Denies: headache(s) PFSH ED 2 PFSH: Medical History Atrial fibrillation with rapid ventricular response Peripheral neuropathy CAD (coronary artery disease) Depression Chronic anticoagulation CVA (cerebral vascular accident) 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 CKD (chronic kidney disease) Baseline creatinine 1.9 Poorly controlled type 2 diabetes mellitus Dyslipidemia DVT (deep venous thrombosis) HTN (hypertension) Polycythemia Atrial fibrillation Surgical History No pertinent past surgical history Family History Other CAD (coronary artery disease) Cancer Social History Smoking and tobacco/nicotine status: former use of tobacco/nicotine Alcohol intake: never Substance/Drug Use: never Caregiver/support person: No Household members: none Housing: House Physical Exam 2 Const: COMMON NORMALS: no acute distress, patient oriented x3 and healthy appearing HENMT: COMMON NORMALS: normocephalic and atraumatic HEAD & SCALP: n ormocephalic and atraumatic Eye: COMMON NORMALS: Equal, round and reactive pupils present and EOMs intact bilaterally PUPIL: Yes Equal, round and reactive pupils present Neck/C-Spine: COMMON NORMALS: full ROM and supple Chest: COMMONS NORMALS: normal inspection of the chest and normal palpation of entire chest wall Resp: COMMON NORMALS: normal respiratory effort, No retractions, No use of accessory muscles and clear to auscultation bilaterally AUSCULTATION: clear to auscultation bilaterally Cardio: COMMON NORMALS: regular rate, regular rhythm and No murmurs present (Cardio) RATE: regular rate RHYTHM: regular rhythm GI: COMMON NORMALS: Normal to inspection, nondistended, normoactive bowel sounds present, Soft to palpation, non-tender and no masses PALPATION: Yes Soft to palpation Extremity: COMMON NORMALS: normal to inspection and full ROM Neuro: COMMON NORMALS: patient oriented x3, moves all extremities and no focal motor deficits Psych: COMMON NORMALS: mental status grossly normal, Normal thought process present and cooperative THOUGHT PROCESS: Normal thought process present Skin: COMMON NORMALS: no rashes or lesions noted and no wounds GENERAL SKIN EXAM: no rashes or lesions noted Course 2 Vital Signs: Vital signs: Vital Signs Temperature 97.0 F L 01/24/24 12:52 Pulse Rate 50 L 01/24/24 14:35 Respiratory Rate 14 01/24/24 14:35 Blood Pressure 126/65 01/24/24 14:15 Pulse Oximetry 97 01/24/24 14:35 Oxygen Delivery Me thod Room Air 01/24/24 13:50 MDM - Weakness Medical Decision Making Patient presents here with some generalized weakness after heat exposure he feels much improved here blood work head CT is normal no signs of stroke he stable for discharge he is follow-up with PCP return if worsening. Medical Records I reviewed the patient's medical records. Lab Data I reviewed the patient's lab results. 01/24/24 12:22 01/24/24 12:22 Radiology Impressions Chest X-Ray 01/24/24 12:51 IMPRESSION: No acute findings. Head CT 01/24/24 12:51 IMPRESSION: No acute intracranial abnormality. Laboratory Results WBC 11.81 10^3/uL (3.29-11.43) H 01/24/24 12:22 RBC 4.78 10^6/uL (3.85-5.65) 01/24/24 12:22 Hgb 15.30 g/dL (11.27-16.99) 01/24/24 12:22 Hct 43.2 % (37-53) 01/24/24 12:22 MCV 90.4 fl (82-101) 01/24/24 12:22 MCH 32.0 pg (27-33) 01/24/24 12:22 MCHC 35.4 g/dL (30-55) 01/24/24 12:22 RDW 12.5 % (12.1-15.1) 01/24/24 12:22 Plt Count 280 10^3/cmm (157-399) 01/24/24 12:22 MPV 9.8 fL (7.4-10.4) 01/24/24 12:22 Neut % (Auto) 61.6 % 01/24/24 12:22 Lymph % (Auto) 24.0 % 01/24/24 12:22 Ward % (Auto) 9.1 % 01/24/24 12:22 Eos % (Auto) 3.4 % 01/24/24 12:22 Baso % (Auto) 1.1 % 01/24/24 12:22 Neut # (Auto) 7.29 10^3/uL (1.8-7.7) 01/24/24 12:22 Lymph # (Auto) 2.8 10^3/uL (0.8-4.8) 01/24/24 12:22 Ward # (Auto) 1.1 10^3/uL (0.2-0.9) H 01/24/24 12:22 Eos # (Auto) 0.4 10^3/uL (0.0-0.8) 01/24/24 12:22 Baso # (Auto) 0.1 10^3/uL (0.0-0.1) 01/24/24 12:22 Nucleated RBC % (auto) 0 % 01/24/24 12:22 Nucleated RBCs # 0.0 /100WBC 01/24/24 12:22 Sodium 138 mmol/L (136-145) 01/24/24 12:22 Potassium 3.9 mmol/L (3.5-5.1) 01/24/24 12:22 Chloride 100 mmol/L (98-107) 01/24/24 12:22 Carbon Dioxide 23 mmol/L (22-29) 01/24/24 12:22 Anion Gap 18.9 (5-19) 01/24/24 12:22 BUN 33 mg/dL (8-23) H 01/24/24 12:22 Creatinine 2.0 mg/dL (0.7-1.2) H 01/24/24 12:22 GFR Calculation Not Reportable 01/24/24 12:22 Glucose 220 mg/dL (65-115) H 01/24/24 12:22 Calculated Osmolality 300 mOsm/kg (285-295) H 01/24/24 12:22 Calcium 9.6 mg/dL (8.5-10.5) 01/24/24 12:22 Magnesium 1.6 mg/dL (1.7-2.3) L 01/24/24 12:22 Total Bilirubin 0.4 mg/dL (0.15-1.2) 01/24/24 12:22 AST 13 U/L (0-40) 01/24/24 12:22 ALT 11 U/L (0-41) 01/24/24 12:22 Alkaline Phosphatase 92 U/L (40-130) 01/24/24 12:22 Creatine Kinase 69 U/L (39-308) 01/24/24 12:22 Total Protein 7.6 g/dL (6.6-8.7) 01/24/24 12:22 Albumin 4.2 g/dL (3.5-5.2) 01/24/24 12:22 Globulin 3.4 g/dL (1.3-4.6) 01/24/24 12:22 All radiology interpretation(s) finalized by discharge EKG Data EKG 1: I personally reviewed and interpreted this EKG as follows: EKG interpretation date: 01/24/24 EKG interpretation time: 12:55 Interpretation: afib hr [address] elevation qrs 83 qtc 424 Discharge Plan Discharge Patient Disposition: Home Clinical Impression: Weakness Condition: Stable Prescriptions: No Action lisinopril 20 mg tablet 20 mg PO BID Hold Instructions: Resume on 02/15/21. clonidine HCl 0.3 mg tablet 0.3 mg PO Q8H tamsulosin 0.4 mg capsule 0.4 mg PO BEDTIME hydralazine 100 mg tablet 100 mg PO TID tramadol 50 mg tablet 50 mg PO Q6H PRN (Reason: Pain) bisacodyl 10 mg Suppository 10 mg [place] DAILY PRN (Reason: Constipation) metformin 1,000 mg tablet 1,000 mg PO BID bisacodyl 5 mg Tablet,Delayed Release (Dr/Ec) 10 mg PO DAILY PRN (Reason: Constipation) gabapentin 100 mg Capsule 100 mg PO BEDTIME insulin glargine [Lantus Solostar U-100 Insulin] 100 unit/mL (3 mL) insulin pen 55 unit SUBCUT BEDTIME acetaminophen 325 mg Tablet 650 mg PO Q6H PRN (Reason: PAIN OR FEVER) atorvastatin 10 mg tablet 10 mg PO BEDTIME diltiazem HCl 360 mg capsule,extended release 24hr 360 mg PO DAILY hydrochlorothiazide 25 mg tablet 25 mg PO DAILY Eliquis 5 mg tablet 5 mg PO BID O[facility] 50 mg-15 unit- 4.5 mg-2.5 mg Tablet,Chewable 1 tab PO BEDTIME metoprolol succinate 50 mg tablet extended release 24 hr 50 mg PO DAILY cyanocobalamin (vitamin B-12) 500 mcg Tablet 250 mcg PO DAILY loratadine 10 mg tablet 10 mg PO DAILY Novolog FlexPen U-100 Insulin 100 unit/mL (3 mL) insulin pen See Rx Instructions .ROUTE .COMPLEX Rx Instructions: PER SLIDING SCALE: BS 150-200= 0 UNITS, 201-250= 2 UNITS, 251-300= 4 UNITS, 301-350= 6 UNITS, 351-400= 8 UNITS. BS GREATER THAN 400 GIVE 8 UNITS. CALL PCP IF BS <60 AMD >400 IF SYMPTOMATIC X 3 READINGS. sertraline 25 mg Tablet 25 mg PO DAILY Discharge Orders: Discharge ED (Routine); Ordered 01/24/24 Ordered By: Fabian Ramos Referrals: Destiny Bates MD [Primary Care Provider] - Discharge Diet: Advance as tolerated Discharge Activity: Resume usual activity Patient Instructions: Weakness (ED) Coding Level of Care Code ED Cartographic Engineer for Sergio Dahl NIH stroke score NIHSS Level Of Consciousness - 1a: 0 Level Of Consciousness Questions - 1b: Both Correct Level Of Consciousness Commands - 1c: Both Correct Best Gaze - 2: Normal Visual Sepulveda - 3: No Visual Loss Facial Palsy - 4: Normal Motor Arm Right - 5: No Drift Motor Arm Left - 5: No Drift Motor Leg Right - 6: No Drift Motor Leg Left - 6: No Drift Limb Ataxia - 7: Absent Sensory - 8: Normal Best Language - 9: No Aphasia Dysarthia - 10: Normal Extinction And Inattention - 11: 0 Score Total Score: 0
== END 2024-01-24 16:31 | disposition home or self-care (01) ==
PROVIDERS: Emergency Provider Emergency Medicine; PCP Family Medicine
DX: R53.1 Weakness (principal); Z79.01 Long term (current) use of anticoagulants; Z79.84 Long term (current) use of oral hypoglycemic drugs; Z79.4 Long term (current) use of insulin; I48.91 Unspecified atrial fibrillation; Z87.891 Personal history of nicotine dependence; I25.10 Atherosclerotic heart disease of native coronary artery without angina pectoris; E11.22 Type 2 diabetes mellitus with diabetic chronic kidney disease; I12.9 Hypertensive chronic kidney disease with stage 1 through stage 4 chronic kidney disease, or unspecified chronic kidney disease; N18.9 Chronic kidney disease, unspecified; Z86.73 Personal history of transient ischemic attack (TIA), and cerebral infarction without residual deficits; E78.5 Hyperlipidemia, unspecified
CPT/HCPCS: 70450; 71045; 80053; 82550; 83735; 85025; 93005; 99285; J7030

== ENCOUNTER 2024-11-18 04:15 | Emergency (ER) | payer MEDICARE, MEDICAID, SELFPAY ==
[2024-11-18] VITALS (15 sets, daily range): BP systolic 120–143; BP diastolic 64–90; PULSE 70–103; RESP 13–22; TEMP 36.6; O2SAT 89–95; BMI 31.5
--- NOTE | 2024-11-18 04:26 | XRR_ITS ---
PROCEDURE INFORMATION: Exam: XR Chest Exam date and time: 11/18/2024 4:33 AM Age: 74 years old Clinical indication: Injury or trauma; Fall; Blunt trauma (contusions or hematomas); Additional info: Preop TECHNIQUE: Imaging protocol: Radiologic exam of the chest. Views: 1 view. COMPARISON: CR XR chest 1V portable [id number] 01/24/2024 1:01 PM FINDINGS: Lungs: Unremarkable. No consolidation. Low lung volumes. Pleural spaces: Unremarkable. No pleural effusion. No pneumothorax. Heart/Mediastinum: Unremarkable. No cardiomegaly. Bones/joints: Unremarkable. XR/XR chest 1V portable [id number] IMPRESSION: No evidence of acute cardiopulmonary process.
--- NOTE | 2024-11-18 04:26 | XRR_ITS ---
PROCEDURE INFORMATION: Exam: XR Left Hip Exam date and time: 11/18/2024 4:33 AM Age: 74 years old Clinical indication: Injury or trauma; Fall; Blunt trauma (contusions or hematomas); Left; Hip; Additional info: Fall, injury TECHNIQUE: Imaging protocol: Radiologic exam of the left hip. Views: 2 or 3 views hip with pelvis when performed. COMPARISON: CT abdomen pelvis w con* [id number] 02/07/2021 2:35 AM FINDINGS: Bones/joints: Normal alignment. Lucencies extend through the acetabulum. Soft tissues: Unremarkable. XR/XR hip LT 2-3V wo/w pel* [id number] IMPRESSION: Acute nondisplaced acetabular fracture.
[2024-11-18 04:37] LABS: Basophils # 0.1 10^3/uL (0.0-0.1); Basophils % 0.7 %; Eosinophils # 0.5 10^3/uL (0.0-0.8); Eosinophils % 4.3 %; Hematocrit 43.9 % (37-53); Lymphocytes # 1.7 10^3/uL (0.8-4.8); Lymphocytes % 14.1 %; Mean Corpuscular HGB Conc 33.3 g/dL (30-55); Mean Corpuscular Hemoglobin 29.9 pg (27-33); Mean Platelet Volume 9.4 fL (7.4-10.4); Monocytes # 0.8 10^3/uL (0.2-0.9); Monocytes % 6.4 %; Neutrophils # 8.63 10^3/uL (1.8-7.7); Neutrophils % 73.5 %; Nucleated Red Blood Cells % 0 %; Platelet Count 280 10^3/cmm (157-399); Red Blood Count 4.88 10^6/uL (3.85-5.65); Red Cell Distribution Width 13.5 % (12.1-15.1); White Blood Count 11.73 10^3/uL (3.29-11.43)
--- NOTE | 2024-11-18 04:43 | W.ED.FALL ---
Documented by User: Wai An MD 11/18/24 06:28 HPI - Fall General: Chief Complaint: Fall Stated Complaint: fall, left hip Time Seen by Provider: 11/18/24 04:22 History of Present Illness: Patient is a generally well-appearing 74-year-old male from [facility] seen for fall and left hip pain. He is anticoagulated on Eliquis for known atrial fibrillation with history of stroke. He has persistent and stable left-sided numbness. He states that he tripped on something and fell. He denies striking his head and has no headache. He complains of 7 out of 10 pain which he locates to the left greater trochanter. He states pain is worse with any motion and better with rest. He has not tried to walk since falling. He has no other injuries and no other acute complaints. He denies antecedent chest pain and lightheadedness prior to the fall. Related Data Home Medications ?Medication ?Instructions ?Recorded ?Confirmed hydralazine 100 mg tablet 100 mg PO TID 04/04/20 11/18/24 lisinopril 20 mg tablet 20 mg PO BID 04/04/20 11/18/24 tamsulosin 0.4 mg capsule 0.4 mg PO BEDTIME 04/04/20 11/18/24 bisacodyl 10 mg rectal suppository 10 mg MI DAILY PRN Constipation 02/12/22 11/18/24 bisacodyl 5 mg tablet,delayed 10 mg PO DAILY PRN Constipation 02/12/22 11/18/24 release gabapentin 100 mg capsule 100 mg PO BEDTIME 02/12/22 11/18/24 insulin glargine 100 unit/mL (3 20 unit SUBCUT BEDTIME 02/12/22 11/18/24 mL) subcutaneous pen (Lantus Solostar U-100 Insulin) metformin 1,000 mg tablet 1,000 mg PO BID 02/12/22 11/18/24 tramadol 50 mg tablet 50 mg PO Q6H PRN Pain 02/12/22 11/18/24 acetaminophen 325 mg tablet 650 mg PO Q6H PRN PAIN OR FEVER 07/08/23 11/18/24 apixaban 5 mg tablet (Eliquis) 5 mg PO BID 07/08/23 11/18/24 atorvastatin 10 mg tablet 10 mg PO BEDTIME 07/08/23 11/18/24 vit C 50 mg-E 15 unit-zinc cit 4.5 1 tab PO BEDTIME 07/08/23 11/18/24 mg-lutein 2.5 mg-zeaxan chew tablet ([employer] [facility]) cyanocobalamin (vitamin B-12) 500 250 mcg PO DAILY 01/24/24 11/18/24 mcg tablet insulin aspart U-100 100 unit/mL See Rx Instructions .Route .COMPLEX 01/24/24 11/18/24 (3 mL) subcutaneous pen (Novolog FlexPen U-100 Insulin aspart) loratadine 10 mg tablet 10 mg PO DAILY 01/24/24 11/18/24 amlodipine 5 mg tablet 5 mg PO DAILY 11/18/24 11/18/24 clonidine HCl 0.1 mg tablet 0.1 mg PO TID 11/18/24 11/18/24 diltiazem HCl 180 mg 180 mg PO DAILY 11/18/24 11/18/24 capsule,extended release 24 hr dulaglutide 0.75 mg/0.5 mL See Rx Instructions .Route .COMPLEX 11/18/24 11/18/24 subcutaneous pen injector (Trulicity) empagliflozin 10 mg tablet 10 mg PO DAILY 11/18/24 11/18/24 (Jardiance) furosemide 40 mg tablet 40 mg PO DAILY 11/18/24 11/18/24 potassium chloride 10 mEq 10 meq PO DAILY 11/18/24 11/18/24 tablet,extended release sertraline 100 mg tablet 100 mg PO BEDTIME 11/18/24 11/18/24 Allergies Allergy/AdvReac Type Severity Reaction Status Date / Time Penicillins Allergy ALGY-Rash Verified 11/18/24 04:20 [facility] ED PFSH: Medical History Atrial fibrillation with rapid ventricular response Peripheral neuropathy CAD (coronary artery disease) Depression Chronic anticoagulation CVA (cerebral vascular accident) 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 CKD (chronic kidney disease) Baseline creatinine 1.9 Poorly controlled type 2 diabetes mellitus Dyslipidemia DVT (deep venous thrombosis) HTN (hypertension) Polycythemia Atrial fibrillation Surgical History No pertinent past surgical history Family History Other CAD (coronary artery disease) Cancer Social History Smoking and tobacco/nicotine status: former use of tobacco/nicotine Alcohol intake: never Substance/Drug Use: never Caregiver/support person: No Household members: none Housing: House Physical Exam Const: COMMON NORMALS: no acute distress, patient oriented x3 and alert ORIENTATION/CONSCIOUSNESS: Yes oriented to person, Yes oriented to place and Yes oriented to time HENMT: COMMON NORMALS: normocephalic and atraumatic HEAD & SCALP: normocephalic and atraumatic Eye: COMMON NORMALS: Equal, round and reactive pupils present, EOMs intact bilaterally and no scleral icterus PUPIL: Yes Equal, round and reactive pupils present Resp: COMMON NORMALS: normal respiratory effort and No retractions Cardio: COMMON NORMALS: regular rate, regular rhythm (Irregularly irregular rhythm) and No murmurs present (Cardio) RATE: regular rate RHYTHM: regular rhythm (Irregularly irregular rhythm) GI: COMMON NORMALS: Normal to inspection, nondistended, normoactive bowel sounds present, Soft to palpation and non-tender PALPATION: Yes Soft to palpation Extremity: NARRATIVE EXTREMITY EXAM: No obvious deformity of the left leg, though he has exquisite pain with any motion of the left hip and tenderness with palpation of the left greater trochanter. Neuro: COMMON NORMALS: patient oriented x3 SENSORIUM/ORIENTATION: Yes alert, Yes oriented to person, Yes oriented to place and Yes oriented to time OTHER: Stable left-sided decreased sensation to light touch of the upper and lower extremities. Skin: COMMON NORMALS: no rashes or lesions noted GENERAL SKIN EXAM: no rashes or lesions noted Course Vital Signs: Vital signs: Vital Signs Temperature 97.8 F 11/18/24 04:17 Pulse Rate 103 H 11/18/24 11:10 Respiratory Rate 22 H 11/18/24 11:10 Blood Pressure 125/71 11/18/24 11:10 Pulse Oximetry 95 11/18/24 11:10 Oxygen Delivery Me thod Nasal Cannula 11/18/24 11:00 Oxygen Flow Rate 3 11/18/24 11:00 MDM - Fall Medical Decision Making In summary, patient is a generally well-appearing 74-year-old male from [facility] seen for fall and left hip pain. Chest x-ray, EKG, labs were all drawn presumptively assuming he may require surgical intervention. Initial x-ray of the hip shows possible acetabular fracture according to radiology. I thought I could appreciate a subtle intertrochanteric fracture. CT of the hip will be performed to further evaluate for injury. Pertinent details of the case were shared with the oncoming emergency physician who will help facilitate ultimate disposition based on CT findings. Lab Data 11/18/24 04:29 11/18/24 04:29 Radiology Impressions Chest X-Ray 11/18/24 04:26 IMPRESSION: No evidence of acute cardiopulmonary process. Hip/Pelvis X-Ray 11/18/24 04:26 IMPRESSION: Acute nondisplaced acetabular fracture. Hip CT 11/18/24 06:00 IMPRESSION: 1. Evidence of recent prominently comminuted fractures of the left acetabulum, left pubic bone and left inferior and superior pubic rami, with anterior column, posterior column and transverse acetabular fracture components noted. 2. No displaced fracture seen involving the left proximal femur 3. Chronic findings as above Shoulder X-Ray 11/18/24 08:54 IMPRESSION: 1. No fracture. 2. Questionable pulmonary congestive changes. Laboratory Results WBC 11.73 10^3/uL (3.29-11.43) H 11/18/24 04:29 RBC 4.88 10^6/uL (3.85-5.65) 11/18/24 04:29 Hgb 14.60 g/dL (11.27-16.99) 11/18/24 04:29 Hct 43.9 % (37-53) 11/18/24 04:29 MCV 90.0 fl (82-101) 11/18/24 04:29 MCH 29.9 pg (27-33) 11/18/24 04:29 MCHC 33.3 g/dL (30-55) 11/18/24 04:29 RDW 13.5 % (12.1-15.1) 11/18/24 04:29 Plt Count 280 10^3/cmm (157-399) 11/18/24 04:29 MPV 9.4 fL (7.4-10.4) 11/18/24 04:29 Neut % (Auto) 73.5 % 11/18/24 04:29 Lymph % (Auto) 14.1 % 11/18/24 04:29 [place] % (Auto) 6.4 % 11/18/24 04: Eos % (Auto) 4.3 % 11/18/24 04: Baso % (Auto) 0.7 % 11/18/24 04: Neut # (Auto) 8.63 10^3/uL (1.8-7.7) H 11/18/24 04: Lymph # (Auto) 1.7 10^3/uL (0.8-4.8) 11/18/24 04: [place] # (Auto) 0.8 10^3/uL (0.2-0.9) 11/18/24 04: Eos # (Auto) 0.5 10^3/uL (0.0-0.8) 11/18/24 04: Baso # (Auto) 0.1 10^3/uL (0.0-0.1) 11/18/24 04: Nucleated RBC % (auto) 0 % 11/18/24 04: Nucleated RBCs # 0.0 /100WBC 11/18/24 04: PT 15.20 SECONDS (12.1-14.9) H 11/18/24 04: INR 1.12 (0.8-1.2) 11/18/24 04: APTT 27.4 SECONDS (23.9-36.7) 11/18/24 04: Sodium 139 mmol/L (136-145) 11/18/24 04: Potassium 4.3 mmol/L (3.5-5.1) 11/18/24 04: Chloride 100 mmol/L (98-107) 11/18/24 04: Carbon Dioxide 24 mmol/L (22-29) 11/18/24 04:29 Anion Gap 19.3 (5-19) H 11/18/24 04:29 BUN 21 mg/dL (8-23) 11/18/24 04: Creatinine 1.8 mg/dL (0.7-1.2) H 11/18/24 04:29 GFR Calculation Not Reportable 11/18/24 04: Glucose 164 mg/dL (65-115) H 11/18/24 04:29 Calculated Osmolality 295 mOsm/kg (285-295) 11/18/24 04:29 Calcium 9.0 mg/dL (8.5-10.5) 11/18/24 04:29 Total Bilirubin 0.3 mg/dL (0.15-1.2) 11/18/24 04:29 AST 11 U/L (0-40) 11/18/24 04:29 ALT 8 U/L (0-41) 11/18/24 04:29 Alkaline Phosphatase 115 U/L (40-130) 11/18/24 04:29 Total Protein 7.3 g/dL (6.6-8.7) 11/18/24 04:29 Albumin 4.1 g/dL (3.5-5.2) 11/18/24 04:29 Globulin 3.2 g/dL (1.3-4.6) 11/18/24 04:29 All radiology interpretation(s) finalized by discharge EKG Data EKG 1: Interpretation: Time?455?atrial fibrillation, rate of 76, no ST segment elevation or depression, no T wave inversions, intervals within normal limits. QTc = 427 Discharge Plan Discharge Patient Disposition: Xfer Short-Term Hosp Clinical Impression: Acetabulum fracture, left Condition: Stable Referrals: Destiny Bates MD [Staff Physician] - Print Language: Occitan Sign Out Sign Out Data: Patient Sign Out occurred on 11/18/24 at 06:27. Patient's care was discussed, and care was transferred from Wai An MD to Bucky Walker DO. Coding Level of Care Code ED [employer] Operator Helper for Chg Fwd Documented by User: Bucky Walker DO 11/19/24 06:30 HPI - Fall General: Chief Complaint: Fall Stated Complaint: fall, left hip Time Seen by Provider: 11/18/24 04:22 Related Data Home Medications ?Medication ?Instructions ?Recorded ?Confirmed hydralazine 100 mg tablet 100 mg PO TID 04/04/20 11/18/24 lisinopril 20 mg tablet 20 mg PO BID 04/04/20 11/18/24 tamsulosin 0.4 mg capsule 0.4 mg PO BEDTIME 04/04/20 11/18/24 bisacodyl 10 mg rectal suppository 10 mg MI DAILY PRN Constipation 02/12/22 11/18/24 bisacodyl 5 mg tablet,delayed 10 mg PO DAILY PRN Constipation 02/12/22 11/18/24 release gabapentin 100 mg capsule 100 mg PO BEDTIME 02/12/22 11/18/24 insulin glargine 100 unit/mL (3 20 unit SUBCUT BEDTIME 02/12/22 11/18/24 mL) subcutaneous pen (Lantus Solostar U-100 Insulin) metformin 1,000 mg tablet 1,000 mg PO BID 02/12/22 11/18/24 tramadol 50 mg tablet 50 mg PO Q6H PRN Pain 02/12/22 11/18/24 acetaminophen 325 mg tablet 650 mg PO Q6H PRN PAIN OR FEVER 07/08/23 11/18/24 apixaban 5 mg tablet (Eliquis) 5 mg PO BID 07/08/23 11/18/24 atorvastatin 10 mg tablet 10 mg PO BEDTIME 07/08/23 11/18/24 vit C 50 mg-E 15 unit-zinc cit 4.5 1 tab PO BEDTIME 07/08/23 11/18/24 mg-lutein 2.5 mg-zeaxan chew tablet [facility] cyanocobalamin (vitamin B-12) 500 250 mcg PO DAILY 01/24/24 11/18/24 mcg tablet insulin aspart U-100 100 unit/mL See Rx Instructions .Route .COMPLEX 01/24/24 11/18/24 (3 mL) subcutaneous pen (Novolog FlexPen U-100 Insulin aspart) loratadine 10 mg tablet 10 mg PO DAILY 01/24/24 11/18/24 amlodipine 5 mg tablet 5 mg PO DAILY 11/18/24 11/18/24 clonidine HCl 0.1 mg tablet 0.1 mg PO TID 11/18/24 11/18/24 diltiazem HCl 180 mg 180 mg PO DAILY 11/18/24 11/18/24 capsule,extended release 24 hr dulaglutide 0.75 mg/0.5 mL See Rx Instructions .Route .COMPLEX 11/18/24 11/18/24 subcutaneous pen injector (Trulicity) empagliflozin 10 mg tablet 10 mg PO DAILY 11/18/24 11/18/24 (Jardiance) furosemide 40 mg tablet 40 mg PO DAILY 11/18/24 11/18/24 potassium chloride 10 mEq 10 meq PO DAILY 11/18/24 11/18/24 tablet,extended release sertraline 100 mg tablet 100 mg PO BEDTIME 11/18/24 11/18/24 Allergies Allergy/AdvReac Type Severity Reaction Status Date / Time Penicillins Allergy ALGY-Rash Verified 11/18/24 04:20 [facility] ED PFSH: Medical History Atrial fibrillation with rapid ventricular response Peripheral neuropathy CAD (coronary artery disease) Depression Chronic anticoagulation CVA (cerebral vascular accident) 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 CKD (chronic kidney disease) Baseline creatinine 1.9 Poorly controlled type 2 diabetes mellitus Dyslipidemia DVT (deep venous thrombosis) HTN (hypertension) Polycythemia Atrial fibrillation Surgical History No pertinent past surgical history Family History Other CAD (coronary artery disease) Cancer Social History Smoking and tobacco/nicotine status: former use of tobacco/nicotine Alcohol intake: never Substance/Drug Use: never Caregiver/support person: No Household members: none Housing: House Course Vital Signs: Vital signs: Vital Signs Temperature 97.8 F 11/18/24 04:17 Pulse Rate 103 H 11/18/24 11:10 Respiratory Rate 22 H 11/18/24 11:10 Blood Pressure 125/71 11/18/24 11:10 Pulse Oximetry 95 11/18/24 11:10 Oxygen Delivery Me thod Nasal Cannula 11/18/24 11:00 Oxygen Flow Rate 3 11/18/24 11:00 MDM - Fall Medical Decision Making In summary, patient is a generally well-appearing 74-year-old male from [facility] seen for fall and left hip pain. Chest x-ray, EKG, labs were all drawn presumptively assuming he may require surgical intervention. Initial x-ray of the hip shows possible acetabular fracture according to radiology. I thought I could appreciate a subtle intertrochanteric fracture. CT of the hip will be performed to further evaluate for injury. Pertinent details of the case were shared with the oncoming emergency physician who will help facilitate ultimate disposition based on CT findings. Care assumed at change of shift. 74-year-old male ground-level mechanical fall at the fdc. CT shows comminuted acetabular fracture. Reviewed the case with Dr. Bethea. He recommends that patient be transferred this may require surgical intervention. Patient is resting comfortably at this time discussed with him the need for transfer he agrees. Contacting [facility] in [place] to transfer as a trauma. Medical Records I reviewed the patient's medical records. Lab Data I reviewed the patient's lab results. 11/18/24 04:29 11/18/24 04:29 Radiology Impressions Chest X-Ray 11/18/24 04:26 IMPRESSION: No evidence of acute cardiopulmonary process. Hip/Pelvis X-Ray 11/18/24 04:26 IMPRESSION: Acute nondisplaced acetabular fracture. Hip CT 11/18/24 06:00 IMPRESSION: 1. Evidence of recent prominently comminuted fractures of the left acetabulum, left pubic bone and left inferior and superior pubic rami, with anterior column, posterior column and transverse acetabular fracture components noted. 2. No displaced fracture seen involving the left proximal femur 3. Chronic findings as above Shoulder X-Ray 11/18/24 08:54 IMPRESSION: 1. No fracture. 2. Questionable pulmonary congestive changes. Laboratory Results WBC 11.73 10^3/uL (3.29-11.43) H 11/18/24 04: RBC 4.88 10^6/uL (3.85-5.65) 11/18/24 04: Hgb 14.60 g/dL (11.27-16.99) 11/18/24 04:29 Hct 43.9 % (37-53) 11/18/24 04: MCV 90.0 fl (82-101) 11/18/24 04: MCH 29.9 pg (27-33) 11/18/24 04: MCHC 33.3 g/dL (30-55) 11/18/24 04:29 RDW 13.5 % (12.1-15.1) 11/18/24 04: Plt Count 280 10^3/cmm (157-399) 11/18/24 04:29 MPV 9.4 fL (7.4-10.4) 11/18/24 04: Neut % (Auto) 73.5 % 11/18/24 04: Lymph % (Auto) 14.1 % 11/18/24 04:29 [place] % (Auto) 6.4 % 11/18/24 04: Eos % (Auto) 4.3 % 11/18/24 04: Baso % (Auto) 0.7 % 11/18/24 04: Neut # (Auto) 8.63 10^3/uL (1.8-7.7) H 11/18/24 04: Lymph # (Auto) 1.7 10^3/uL (0.8-4.8) 11/18/24 04: [place] # (Auto) 0.8 10^3/uL (0.2-0.9) 11/18/24 04: Eos # (Auto) 0.5 10^3/uL (0.0-0.8) 11/18/24 04: Baso # (Auto) 0.1 10^3/uL (0.0-0.1) 11/18/24 04: Nucleated RBC % (auto) 0 % 11/18/24 04: Nucleated RBCs # 0.0 /100WBC 11/18/24 04: PT 15.20 SECONDS (12.1-14.9) H 11/18/24 04: INR 1.12 (0.8-1.2) 11/18/24 04: APTT 27.4 SECONDS (23.9-36.7) 11/18/24 04: Sodium 139 mmol/L (136-145) 11/18/24 04: Potassium 4.3 mmol/L (3.5-5.1) 11/18/24 04: Chloride 100 mmol/L (98-107) 11/18/24 04: Carbon Dioxide 24 mmol/L (22-29) 11/18/24 04: Anion Gap 19.3 (5-19) H 11/18/24 04:29 BUN 21 mg/dL (8-23) 11/18/24 04: Creatinine 1.8 mg/dL (0.7-1.2) H 11/18/24 04:29 GFR Calculation Not Reportable 11/18/24 04:29 Glucose 164 mg/dL (65-115) H 11/18/24 04:29 Calculated Osmolality 295 mOsm/kg (285-295) 11/18/24 04:29 Calcium 9.0 mg/dL (8.5-10.5) 11/18/24 04: Total Bilirubin 0.3 mg/dL (0.15-1.2) 11/18/24 04:29 AST 11 U/L (0-40) 11/18/24 04:29 ALT 8 U/L (0-41) 11/18/24 04: Alkaline Phosphatase 115 U/L (40-130) 11/18/24 04: Total Protein 7.3 g/dL (6.6-8.7) 11/18/24 04: Albumin 4.1 g/dL (3.5-5.2) 11/18/24 04: Globulin 3.2 g/dL (1.3-4.6) 11/18/24 04:29 Discharge Plan Discharge Patient Disposition: Xfer Short-Term Hosp Clinical Impression: Acetabulum fracture, left Condition: Stable Referrals: Destiny Bates MD [Staff Physician] - Print Language: Occitan Sign Out Sign Out Data: Patient Sign Out occurred on 11/18/24 at 06:27. Patient's care was discussed, and care was transferred from Wai An MD to Bucky Walker DO. Coding Level of Care Code ED [employer] Operator Helper for Sergio Dahl
[2024-11-18 04:52] LABS: INR 1.12 (0.8-1.2); Partial Thromboplastin Time 27.4 SECONDS (23.9-36.7)
--- NOTE | 2024-11-18 04:56 | ECG_ITS ---
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 Measurements Intervals [place] Rate: 76 P: 0 [place]: 0 QRS: -38 QRSD: 89 T: 66 QT: 397 QTc: 448 Interpretive Statements ATRIAL FIBRILLATION LEFT AXIS DEVIATION [QRS AXIS < -30] LOW QRS VOLTAGE IN EXTREMITY LEADS [QRS DEFLECTION < 0.5 mV IN LIMB LEADS] Compared to ECG 01/24/2024 12:55:00 Left-axis deviation now present T-wave abnormality no longer present Possible ischemia no longer present Electronically Signed On 11-19-2024 21:52:36 CDT by Sammie Mcgraw M.D. [email or web address]
[2024-11-18 05:00] LABS: Alanine Aminotransferase 8 U/L (0-41); Albumin Level 4.1 g/dL (3.5-5.2); Alkaline Phosphatase 115 U/L (40-130); Anion Gap 19.3 (5-19); Aspartate Amino Transferase 11 U/L (0-40); Blood Urea Nitrogen 21 mg/dL (8-23); Carbon Dioxide 24 mmol/L (22-29); Chloride 100 mmol/L (98-107); Creatinine Clr Calc Pharmacy 43.9251; Globulin 3.2 g/dL (1.3-4.6); Glucose 164 mg/dL (65-115); Osmolality Calculated 295 mOsm/kg (285-295); Potassium 4.3 mmol/L (3.5-5.1); Sodium 139 mmol/L (136-145); Total Bilirubin 0.3 mg/dL (0.15-1.2); Total Protein 7.3 g/dL (6.6-8.7)
[2024-11-18] MEDS: morphine 4 mg/mL SDV 1 mL IVP ×2 (05:38→07:30)
--- NOTE | 2024-11-18 06:00 | CTR_ITS ---
PROCEDURE INFORMATION: Exam: CT Left Lower Extremity Without Contrast, Hip Exam date and time: 11/18/2024 7:01 AM Age: 74 years old Clinical indication: Injury or trauma; Fall; Blunt trauma; Hip; Left; Additional info: Injury, suspect intertroch, unclear on XR TECHNIQUE: Imaging protocol: CT of the left lower extremity without contrast was performed. Exam focused on the hip. Radiation optimization: All CT scans at this facility use at least one of these dose optimization techniques: automated exposure control; mA and/or kV adjustment per patient size (includes targeted exams where dose is matched to clinical indication); or iterative reconstruction. COMPARISON: CR (PELVIS, ) 11/18/2024 4:33 AM RADIATION DOSE METRICS: Total DLP (mGy-cm): 341.11 FINDINGS: Bones/joints: Prominently comminuted fractures of the left acetabulum, left pubic bone and left inferior and superior pubic rami, with anterior column, posterior column and transverse acetabular fracture components noted. The anterior column fracture lucency appears to nearly extend up to the left SI joint. No left SI joint space diastasis appreciated. Mild left hip DJD. [id number] deep soft tissue edema/hematoma surrounding the left acetabular fractures. No fracture seen involving the left proximal femur Soft tissues: Prominent fat within the left inguinal canal; correlate for possibly clinically significant hernia Vasculature: Prominent atheromatous calcifications Reproductive: Enlarged, nodular prostate is partially imaged and exhibits mass effect on the urinary bladder floor; as seen on series 4, image 31, there is a 13 mm nodular soft tissue density within the bladder lumen at the interface of the prostate with the urinary bladder wall; focal bladder wall thickening/mass in this region can not be excluded. Clinically correlate and follow-up as clinically indicated. CT/CT hip LT wo con* [id number] IMPRESSION: 1. Evidence of recent prominently comminuted fractures of the left acetabulum, left pubic bone and left inferior and superior pubic rami, with anterior column, posterior column and transverse acetabular fracture components noted. 2. No displaced fracture seen involving the left proximal femur 3. Chronic findings as above
[2024-11-18] MEDS: ondansetron 2 mg/ML SDV 2 mL 4 MG IVP (07:30)
--- NOTE | 2024-11-18 08:54 | XRR_ITS ---
PROCEDURE INFORMATION: Exam: XR Left Shoulder Exam date and time: 11/18/2024 9:01 AM Age: 74 years old Clinical indication: Injury or trauma; Fall; Blunt trauma (contusions or hematomas); Shoulder; Left TECHNIQUE: Imaging protocol: Radiologic exam of the left shoulder. Views: 2 or more views. COMPARISON: CR XR shoulder LT min 2V* [id number] 04/04/2020 6:35 AM FINDINGS: Bones/joints: Mild inferior AC joint spurring. Lungs: Prominence of the vascularity question involving left upper lobe. However this is not confirmed on the chest x-ray performed 5 hours earlier. Consider repeat chest x-ray if clinically indicated. Soft tissues: Normal. XR/XR shoulder LT min 2V* [id number] IMPRESSION: 1. No fracture. 2. Questionable pulmonary congestive changes.
[2024-11-18] MEDS: ketorolac 30 mg/mL INJ 15 MG IVP (11:08)
[2024-11-18] MEDS: morphine 4 mg/mL SDV 1 mL 2 MG IVP (11:10)
== END 2024-11-18 11:10 | disposition short-term general hospital (02) ==
PROVIDERS: Student in an Organized Health Care Education/Training Program; Emergency Provider Family Medicine
DX: S32.402A Unspecified fracture of left acetabulum, initial encounter for closed fracture (principal); Z86.73 Personal history of transient ischemic attack (TIA), and cerebral infarction without residual deficits; E78.5 Hyperlipidemia, unspecified; I25.10 Atherosclerotic heart disease of native coronary artery without angina pectoris; I12.9 Hypertensive chronic kidney disease with stage 1 through stage 4 chronic kidney disease, or unspecified chronic kidney disease; N18.9 Chronic kidney disease, unspecified; W19.XXXA Unspecified fall, initial encounter
CPT/HCPCS: 71045; 73030; 73502; 73700; 80053; 85025; 85610; 85730; 93005; 96374; 96375; 96376; 99285; J1885; J2270; J2405

== ENCOUNTER 2024-11-24 16:50 | Emergency (ER) | payer MEDICARE, MEDICAID, SELFPAY ==
[2024-11-24 16:53] VITALS: BP 117/72; PULSE 124; RESP 15; TEMP 37; O2SAT 94
--- NOTE | 2024-11-24 17:00 | CTR_ITS ---
PROCEDURE INFORMATION: Exam: CT Abdomen And Pelvis With Contrast Exam date and time: 11/24/2024 5:26 PM Age: 74 years old Clinical indication: Abdominal pain; Generalized; Additional info: Abd pain TECHNIQUE: Imaging protocol: Computed tomography of the abdomen and pelvis with contrast. Radiation optimization: All CT scans at this facility use at least one of these dose optimization techniques: automated exposure control; mA and/or kV adjustment per patient size (includes targeted exams where dose is matched to clinical indication); or iterative reconstruction. Contrast material: OMNI 350; Contrast volume: 100 ml; Contrast route: INTRAVENOUS (IV); COMPARISON: CT abdomen pelvis w con* [id number] 02/07/2021 2:35 AM RADIATION DOSE METRICS: Total DLP (mGy-cm): 845.52 FINDINGS: Lungs: Lung bases are clear. No pleural effusion. Pleural spaces: A small left pleural effusion is noted. Liver: Few cysts involve the liver measuring up to 2 cm in diameter. Gallbladder and biliary ducts: Multiple gallstones are noted in the gallbladder but the gallbladder does not appear inflamed and demonstrates normal wall thickness. Pancreas: Normal. No ductal dilation. Spleen: Normal. No splenomegaly. Adrenal glands: Normal. No mass. Kidneys and ureters: Small cysts are noted in both kidneys. Stomach and bowel: There is prominent gaseous distension involving the stomach. Appendix: No evidence of appendicitis. Intraperitoneal space: Unremarkable. No free air. No significant fluid collection. Vasculature: Unremarkable. No abdominal aortic aneurysm. Lymph nodes: Unremarkable. No enlarged lymph nodes. Urinary bladder: Unremarkable as visualized. Reproductive: Unremarkable as visualized. Bones/joints: There are healing fractures involving the left acetabulum and metallic surgical hardware is noted here. Overall bony alignment is good. Soft tissues: Unremarkable. CT/CT abdomen pelvis w con* [id number] IMPRESSION: 1. Prominent gaseous distension. I favor gastroparesis 2. A benign renal cyst or cysts have been detected. No further follow-up imaging is required. 3. Hepatic cysts 4. Cholelithiasis COMMENTS: Consistent with the [employer]'s Incidental Findings Committee white paper (J Am Natali Radiol 2018): Any incidental renal lesion less than 1 cm or classified as too small to characterize, or any incidental cystic renal lesion characterized as simple-appearing, is likely benign. No follow-up imaging is recommended for these lesions per consensus recommendations based on imaging criteria.
--- NOTE | 2024-11-24 17:11 | CTR_ITS ---
PROCEDURE INFORMATION: Exam: CT Head Without Contrast Exam date and time: 11/24/2024 5:23 PM Age: 74 years old Clinical indication: Altered mental status/memory loss; Additional info: AMS TECHNIQUE: Imaging protocol: Computed tomography of the head without contrast. Radiation optimization: All CT scans at this facility use at least one of these dose optimization techniques: automated exposure control; mA and/or kV adjustment per patient size (includes targeted exams where dose is matched to clinical indication); or iterative reconstruction. COMPARISON: CT head wo con* [id number] 01/24/2024 2:15 PM RADIATION DOSE METRICS: Total DLP (mGy-cm): 1048.09 FINDINGS: Brain: No hemorrhage. No edema. Broad areas of encephalomalacia in the right frontal, parietal, and temporal lobes corresponding to old infarcts. Moderate diffuse cerebral atrophy and sequela of chronic small vessel ischemic disease. No mass effect. Cerebral ventricles: No ventriculomegaly. Paranasal sinuses: Visualized sinuses are unremarkable. No fluid levels. Mastoid air cells: Visualized mastoid air cells are well aerated. Bones: Unremarkable. No acute fracture. Soft tissues: Unremarkable. CT/CT head wo con* [id number] IMPRESSION: No acute intracranial abnormality.
--- NOTE | 2024-11-24 17:28 | W.ED.AMS ---
Documented by User: Bucky Walker, 11/25/24 04:49 HPI - Altered Mental Status General: Chief Complaint: Altered Mental Status Stated Complaint: ams - black emesis Time Seen by Provider: 11/24/24 16:56 History of Present Illness: 74-year-old male presents emergency room with altered mental status and reports of coffee-ground emesis. Patient was recently transferred from here within an operable hip fracture emergency in [place] was concerned at the custodial after he returned there that he has had some altered mental status. Patient is disoriented he knows where he is and his name he is confused as to time and purpose. He denies chest pain he does have some mild epigastric discomfort. EMS had seen patient transferred and recently they are reporting his history of the same baseline status states eating when they initially brought him back to custodial here. Related Data Home Medications ?Medication ?Instructions ?Recorded ?Confirmed hydralazine 100 mg tablet 100 mg PO TID 04/04/20 11/18/24 lisinopril 20 mg tablet 20 mg PO BID 04/04/20 11/18/24 tamsulosin 0.4 mg capsule 0.4 mg PO BEDTIME 04/04/20 11/18/24 bisacodyl 10 mg rectal suppository 10 mg KS DAILY PRN Constipation 02/12/22 11/18/24 bisacodyl 5 mg tablet,delayed 10 mg PO DAILY PRN Constipation 02/12/22 11/18/24 release gabapentin 100 mg capsule 100 mg PO BEDTIME 02/12/22 11/18/24 insulin glargine 100 unit/mL (3 20 unit SUBCUT BEDTIME 02/12/22 11/18/24 mL) subcutaneous pen (Lantus Solostar U-100 Insulin) metformin 1,000 mg tablet 1,000 mg PO BID 02/12/22 11/18/24 tramadol 50 mg tablet 50 mg PO Q6H PRN Pain 02/12/22 11/18/24 acetaminophen 325 mg tablet 650 mg PO Q6H PRN PAIN OR FEVER 07/08/23 11/18/24 apixaban 5 mg tablet (Eliquis) 5 mg PO BID 07/08/23 11/18/24 atorvastatin 10 mg tablet 10 mg PO BEDTIME 07/08/23 11/18/24 vit C 50 mg-E 15 unit-zinc cit 4.5 1 tab PO BEDTIME 07/08/23 11/18/24 mg-lutein 2.5 mg-zeaxan chew tablet ([employer] [facility]) cyanocobalamin (vitamin B-12) 500 250 mcg PO DAILY 01/24/24 11/18/24 mcg tablet insulin aspart U-100 100 unit/mL See Rx Instructions .Route .COMPLEX 01/24/24 11/18/24 (3 mL) subcutaneous pen (Novolog FlexPen U-100 Insulin aspart) loratadine 10 mg tablet 10 mg PO DAILY 01/24/24 11/18/24 amlodipine 5 mg tablet 5 mg PO DAILY 11/18/24 11/18/24 clonidine HCl 0.1 mg tablet 0.1 mg PO TID 11/18/24 11/18/24 diltiazem HCl 180 mg 180 mg PO DAILY 11/18/24 11/18/24 capsule,extended release 24 hr dulaglutide 0.75 mg/0.5 mL See Rx Instructions .Route .COMPLEX 11/18/24 11/18/24 subcutaneous pen injector (TrulicNubli) empagliflozin 10 mg tablet 10 mg PO DAILY 11/18/24 11/18/24 (Jardiance) furosemide 40 mg tablet 40 mg PO DAILY 11/18/24 11/18/24 potassium chloride 10 mEq 10 meq PO DAILY 11/18/24 11/18/24 tablet,extended release sertraline 100 mg tablet 100 mg PO BEDTIME 11/18/24 11/18/24 Previous Rx's ?Medication ?Instructions ?Recorded ondansetron 4 mg disintegrating 4 mg PO Q6H PRN nausea and 11/24/24 tablet vomiting #14 tabs Allergies Allergy/AdvReac Type Severity Reaction Status Date / Time Penicillins Allergy ALGY-Rash Verified 11/18/24 04:20 Review of Systems Const: Denies: fever(s) or chills Card: Denies: chest pain Resp: Denies: dyspnea GI: Denies: abdominal pain : Denies: dysuria, urinary frequency or urinary urgency Musc: Denies: neck pain or back pain Skin/Breast: Denies: rash PFSH ED PFSH: Medical History Atrial fibrillation with rapid ventricular response Peripheral neuropathy CAD (coronary artery disease) Depression Chronic anticoagulation CVA (cerebral vascular accident) 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 CKD (chronic kidney disease) Baseline creatinine 1.9 Poorly controlled type 2 diabetes mellitus Dyslipidemia DVT (deep venous thrombosis) HTN (hypertension) Polycythemia Atrial fibrillation Surgical History No pertinent past surgical history Family History Other CAD (coronary artery disease) Cancer Social History Smoking and tobacco/nicotine status: former use of tobacco/nicotine Alcohol intake: never Substance/Drug Use: never Caregiver/support person: No Household members: none Housing: House Physical Exam Const: GENERAL APPEARANCE: cooperative ORIENTATION/CONSCIOUSNESS: Yes awake HENMT: COMMON NORMALS: normocephalic, atraumatic and hearing grossly normal bilaterally HEAD & SCALP: normocephalic and atraumatic Resp: COMMON NORMALS: normal respiratory effort, No retractions, No use of accessory muscles and clear to auscultation bilaterally AUSCULTATION: clear to auscultation bilaterally Cardio: COMMON NORMALS: regular rate, regular rhythm and No murmurs present (Cardio) RATE: regular rate RHYTHM: regular rhythm GI: COMMON NORMALS: Soft to palpation and No hepatosplenomegaly present AUSCULTATION: Yes normoactive bowel sounds PALPATION: Yes Soft to palpation, No Tenderness to palpation present (GI), No Guarding due to palpation present (GI) and Yes No hepatosplenomegaly present Extremity: COMMON NORMALS: normal to inspection, capillary refill normal, no clubbing, cyanosis or edema, no calf tenderness and no pedal edema Skin: COMMON NORMALS: no rashes or lesions noted GENERAL SKIN EXAM: no rashes or lesions noted Course Vital Signs: Vital signs: Vital Signs Temperature 98.6 F 11/24/24 16:53 Pulse Rate 101 H 11/24/24 21:13 Respiratory Rate 16 11/24/24 21:00 Blood Pressure 132/93 11/24/24 21:13 Pulse Oximetry 96 11/24/24 21:13 Oxygen Delivery Me thod Room Air 11/24/24 18:27 MDM - Altered Mental Status Medical Decision Making Care signed out to Dr. Ramos at change of shift. See final notes for diagnosis and disposition. Patient presents here with altered mental status family is at bedside states he is at his baseline here he is answering some questions here hemoglobin stable no signs of blood in his vomitus likely has a gastroparesis we will place him on Zofran he is stable for discharge back to the custodial Lab Data 11/24/24 20:00 11/24/24 17:10 Radiology Impressions Abdomen/Pelvis CT 11/24/24 17:00 IMPRESSION: 1. Prominent gaseous distension. I favor gastroparesis 2. A benign renal cyst or cysts have been detected. No further follow-up imaging is required. 3. Hepatic cysts 4. Cholelithiasis COMMENTS: Consistent with the [employer]'s Incidental Findings Committee white paper (J Am Natali Radiol 2018): Any incidental renal lesion less than 1 cm or classified as too small to characterize, or any incidental cystic renal lesion characterized as simple-appearing, is likely benign. No follow-up imaging is recommended for these lesions per consensus recommendations based on imaging criteria. Head CT 11/24/24 17:11 IMPRESSION: No acute intracranial abnormality. Laboratory Results WBC 18.16 10^3/uL (3.29-11.43) H 11/24/24 17:10 RBC 4.14 10^6/uL (3.85-5.65) 11/24/24 17:10 Hgb 12.10 g/dL (11.27-16.99) 11/24/24 20:00 Hct 39.1 % (37-53) 11/24/24 20:00 MCV 93.7 fl (82-101) 11/24/24 17:10 MCH 30.7 pg (27-33) 11/24/24 17:10 MCHC 32.7 g/dL (30-55) 11/24/24 17:10 RDW 14.1 % (12.1-15.1) 11/24/24 17:10 Plt Count 316 10^3/cmm (157-399) 11/24/24 17:10 MPV 9.7 fL (7.4-10.4) 11/24/24 17:10 Neut % (Auto) 87.0 % 11/24/24 17:10 Lymph % (Auto) 4.6 % 11/24/24 17:10 Powell % (Auto) 7.2 % 11/24/24 17:10 Eos % (Auto) 0.3 % 11/24/24 17:10 Baso % (Auto) 0.4 % 11/24/24 17:10 Neut # (Auto) 15.80 10^3/uL (1.8-7.7) H 11/24/24 17:10 Lymph # (Auto) 0.8 10^3/uL (0.8-4.8) 11/24/24 17:10 Powell # (Auto) 1.3 10^3/uL (0.2-0.9) H 11/24/24 17:10 Eos # (Auto) 0.1 10^3/uL (0.0-0.8) 11/24/24 17:10 Baso # (Auto) 0.1 10^3/uL (0.0-0.1) 11/24/24 17:10 Nucleated RBC % (auto) 0 % 11/24/24 17:10 Nucleated RBCs # 0.0 /100WBC 11/24/24 17:10 PT 15.10 SECONDS (12.1-14.9) H 11/24/24 17:10 INR 1.11 (0.8-1.2) 11/24/24 17:10 Sodium 142 mmol/L (136-145) 11/24/24 17:10 Potassium 4.4 mmol/L (3.5-5.1) 11/24/24 17:10 Chloride 102 mmol/L (98-107) 11/24/24 17:10 Carbon Dioxide 28 mmol/L (22-29) 11/24/24 17:10 Anion Gap 16.4 (5-19) 11/24/24 17:10 BUN 38 mg/dL (8-23) H 11/24/24 17:10 Creatinine 1.6 mg/dL (0.7-1.2) H 11/24/24 17:10 GFR Calculation Not Reportable 11/24/24 17:10 Glucose 217 mg/dL (65-115) H 11/24/24 17:10 Calculated Osmolality 310 mOsm/kg (285-295) H 11/24/24 17:10 Lactic Acid 1.7 mmol/L (0.5-2.2) 11/24/24 17:10 Calcium 9.3 mg/dL (8.5-10.5) 11/24/24 17:10 Total Bilirubin 0.4 mg/dL (0.15-1.2) 11/24/24 17:10 AST 10 U/L (0-40) 11/24/24 17:10 ALT < 5 U/L (0-41) 11/24/24 17:10 Alkaline Phosphatase 100 U/L (40-130) 11/24/24 17:10 Total Protein 6.7 g/dL (6.6-8.7) 11/24/24 17:10 Albumin 3.5 g/dL (3.5-5.2) 11/24/24 17:10 Globulin 3.2 g/dL (1.3-4.6) 11/24/24 17:10 Urine Color Yellow (Yellow) 11/24/24 18:42 Urine Appearance Clear (CLEAR) 11/24/24 18:42 Urine pH 6.0 (5-7) 11/24/24 18:42 Ur Specific [place] 1.044 (1.005-1.030) H 11/24/24 18:42 Urine Protein 2+ (Negative) A 11/24/24 18:42 Urine Glucose (UA) 2+ (Normal) H 11/24/24 18:42 Urine Ketones Trace (Negative) 11/24/24 18:42 Urine Blood Negative (Negative) 11/24/24 18:42 Urine Nitrate Negative (Negative) 11/24/24 18:42 Urine Bilirubin Negative (Negative) 11/24/24 18:42 Urine Urobilinogen 0.2 mg/dL (Negative) 11/24/24 18:42 Ur Leukocyte Esterase Trace (Negative) A 11/24/24 18:42 Urine RBC 3-5 /hpf (0-2) 11/24/24 18:42 Urine WBC 6-10 /hpf (0-5) 11/24/24 18:42 Ur Squamous Epith Cells 0-5 /hpf (0-5) 11/24/24 18:42 Amorphous Sediment Not Reportable 11/24/24 18:42 Urine Bacteria None seen /hpf (NONE) 11/24/24 18:42 Hyaline Casts 2.05 /lpf 11/24/24 18:42 Discharge Plan Discharge Patient Disposition: Home Clinical Impression: Altered mental status, Vomiting Condition: Stable Prescriptions: New ondansetron 4 mg tablet,disintegrating 4 mg PO Q6H PRN (Reason: nausea and vomiting) Qty: 14 0RF No Action lisinopril 20 mg tablet 20 mg PO BID tamsulosin 0.4 mg capsule 0.4 mg PO BEDTIME hydralazine 100 mg tablet 100 mg PO TID tramadol 50 mg tablet 50 mg PO Q6H PRN (Reason: Pain) bisacodyl 10 mg Suppository 10 mg KS DAILY PRN (Reason: Constipation) metformin 1,000 mg tablet 1,000 mg PO BID bisacodyl 5 mg Tablet,Delayed Release (Dr/Ec) 10 mg PO DAILY PRN (Reason: Constipation) gabapentin 100 mg Capsule 100 mg PO BEDTIME insulin glargine [Lantus Solostar U-100 Insulin] 100 unit/mL (3 mL) insulin pen 20 unit SUBCUT BEDTIME acetaminophen 325 mg Tablet 650 mg PO Q6H PRN (Reason: PAIN OR FEVER) atorvastatin 10 mg tablet 10 mg PO BEDTIME Eliquis 5 mg tablet 5 mg PO BID Ocuvite [facility] 50 mg-15 unit- 4.5 mg-2.5 mg Tablet,Chewable 1 tab PO BEDTIME cyanocobalamin (vitamin B-12) 500 mcg Tablet 250 mcg PO DAILY loratadine 10 mg tablet 10 mg PO DAILY insulin aspart U-100 [Novolog FlexPen U-100 Insulin] 100 unit/mL (3 mL) insulin pen See Rx Instructions .ROUTE .COMPLEX Rx Instructions: PER SLIDING SCALE: BS 150-200= 0 UNITS, 201-250= 2 UNITS, 251-300= 4 UNITS, 301-350= 6 UNITS, 351-400= 8 UNITS. BS GREATER THAN 400 GIVE 8 UNITS. CALL PCP IF BS <60 AMD >400 IF SYMPTOMATIC X 3 READINGS. diltiazem HCl 180 mg capsule,extended release 24hr 180 mg PO DAILY amlodipine 5 mg tablet 5 mg PO DAILY clonidine HCl 0.1 mg tablet 0.1 mg PO TID furosemide 40 mg tablet 40 mg PO DAILY potassium chloride 10 mEq tablet extended release 10 meq PO DAILY Jardiance 10 mg tablet 10 mg PO DAILY sertraline 100 mg tablet 100 mg PO BEDTIME Trulicity 0.75 mg/0.5 mL pen injector See Rx Instructions .ROUTE .COMPLEX Rx Instructions: inject 0.5ml subcutaneously once a day on Sunday . 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 [employer] Documented by User: Fabian Ramos MD 11/24/24 20:25 HPI - Altered Mental Status General: Chief Complaint: Altered Mental Status Stated Complaint: ams - black emesis Time Seen by Provider: 11/24/24 16:56 Related Data Home Medications ?Medication ?Instructions ?Recorded ?Confirmed hydralazine 100 mg tablet 100 mg PO TID 04/04/20 11/18/24 lisinopril 20 mg tablet 20 mg PO BID 04/04/20 11/18/24 tamsulosin 0.4 mg capsule 0.4 mg PO BEDTIME 04/04/20 11/18/24 bisacodyl 10 mg rectal suppository 10 mg KS DAILY PRN Constipation 02/12/22 11/18/24 bisacodyl 5 mg tablet,delayed 10 mg PO DAILY PRN Constipation 02/12/22 11/18/24 release gabapentin 100 mg capsule 100 mg PO BEDTIME 02/12/22 11/18/24 insulin glargine 100 unit/mL (3 20 unit SUBCUT BEDTIME 02/12/22 11/18/24 mL) subcutaneous pen (Lantus Solostar U-100 Insulin) metformin 1,000 mg tablet 1,000 mg PO BID 02/12/22 11/18/24 tramadol 50 mg tablet 50 mg PO Q6H PRN Pain 02/12/22 11/18/24 acetaminophen 325 mg tablet 650 mg PO Q6H PRN PAIN OR FEVER 07/08/23 11/18/24 apixaban 5 mg tablet (Eliquis) 5 mg PO BID 07/08/23 11/18/24 atorvastatin 10 mg tablet 10 mg PO BEDTIME 07/08/23 11/18/24 vit C 50 mg-E 15 unit-zinc cit 4.5 1 tab PO BEDTIME 07/08/23 11/18/24 mg-lutein 2.5 mg-zeaxan chew tablet ([email or web address] [facility]) cyanocobalamin (vitamin B-12) 500 250 mcg PO DAILY 01/24/24 11/18/24 mcg tablet insulin aspart U-100 100 unit/mL See Rx Instructions .Route .COMPLEX 01/24/24 11/18/24 (3 mL) subcutaneous pen (Novolog FlexPen U-100 Insulin aspart) loratadine 10 mg tablet 10 mg PO DAILY 01/24/24 11/18/24 amlodipine 5 mg tablet 5 mg PO DAILY 11/18/24 11/18/24 clonidine HCl 0.1 mg tablet 0.1 mg PO TID 11/18/24 11/18/24 diltiazem HCl 180 mg 180 mg PO DAILY 11/18/24 11/18/24 capsule,extended release 24 hr dulaglutide 0.75 mg/0.5 mL See Rx Instructions .Route .COMPLEX 11/18/24 11/18/24 subcutaneous pen injector (Trulicity) empagliflozin 10 mg tablet 10 mg PO DAILY 11/18/24 11/18/24 (Jardiance) furosemide 40 mg tablet 40 mg PO DAILY 11/18/24 11/18/24 potassium chloride 10 mEq 10 meq PO DAILY 11/18/24 11/18/24 tablet,extended release sertraline 100 mg tablet 100 mg PO BEDTIME 11/18/24 11/18/24 Previous Rx's ?Medication ?Instructions ?Recorded ondansetron 4 mg disintegrating 4 mg PO Q6H PRN nausea and 11/24/24 tablet vomiting #14 tabs Allergies Allergy/AdvReac Type Severity Reaction Status Date / Time Penicillins Allergy ALGY-Rash Verified 11/18/24 04:20 PFSH ED PFSH: Medical History Atrial fibrillation with rapid ventricular response Peripheral neuropathy CAD (coronary artery disease) Depression Chronic anticoagulation CVA (cerebral vascular accident) 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 CKD (chronic kidney disease) Baseline creatinine 1.9 Poorly controlled type 2 diabetes mellitus Dyslipidemia DVT (deep venous thrombosis) HTN (hypertension) Polycythemia Atrial fibrillation Surgical History No pertinent past surgical history Family History Other CAD (coronary artery disease) Cancer Social History Smoking and tobacco/nicotine status: former use of tobacco/nicotine Alcohol intake: never Substance/Drug Use: never Caregiver/support person: No Household members: none Housing: House Course Vital Signs: Vital signs: Vital Signs Temperature 98.6 F 11/24/24 16:53 Pulse Rate 101 H 11/24/24 21:13 Respiratory Rate 16 11/24/24 21:00 Blood Pressure 132/93 11/24/24 21:13 Pulse Oximetry 96 11/24/24 21:13 Oxygen Delivery Me thod Room Air 11/24/24 18:27 MDM - Altered Mental Status Medical Decision Making Patient presents here with altered mental status family is at bedside states he is at his baseline here he is answering some questions here hemoglobin stable no signs of blood in his vomitus likely has a gastroparesis we will place him on Zofran he is stable for discharge back to the custodial Medical Records I reviewed the patient's medical records. Lab Data I reviewed the patient's lab results. 11/24/24 20:00 11/24/24 17:10 Radiology Impressions Abdomen/Pelvis CT 11/24/24 17:00 IMPRESSION: 1. Prominent gaseous distension. I favor gastroparesis 2. A benign renal cyst or cysts have been detected. No further follow-up imaging is required. 3. Hepatic cysts 4. Cholelithiasis COMMENTS: Consistent with the [place] [employer]'s Incidental Findings Committee white paper (J Am Natali Radiol 2018): Any incidental renal lesion less than 1 cm or classified as too small to characterize, or any incidental cystic renal lesion characterized as simple-appearing, is likely benign. No follow-up imaging is recommended for these lesions per consensus recommendations based on imaging criteria. Head CT 11/24/24 17:11 IMPRESSION: No acute intracranial abnormality. Laboratory Results WBC 18.16 10^3/uL (3.29-11.43) H 11/24/24 17:10 RBC 4.14 10^6/uL (3.85-5.65) 11/24/24 17:10 Hgb 12.10 g/dL (11.27-16.99) 11/24/24 20:00 Hct 39.1 % (37-53) 11/24/24 20:00 MCV 93.7 fl (82-101) 11/24/24 17:10 MCH 30.7 pg (27-33) 11/24/24 17:10 MCHC 32.7 g/dL (30-55) 11/24/24 17:10 RDW 14.1 % (12.1-15.1) 11/24/24 17:10 Plt Count 316 10^3/cmm (157-399) 11/24/24 17:10 MPV 9.7 fL (7.4-10.4) 11/24/24 17:10 Neut % (Auto) 87.0 % 11/24/24 17:10 Lymph % (Auto) 4.6 % 11/24/24 17:10 [place] % (Auto) 7.2 % 11/24/24 17:10 Eos % (Auto) 0.3 % 11/24/24 17:10 Baso % (Auto) 0.4 % 11/24/24 17:10 Neut # (Auto) 15.80 10^3/uL (1.8-7.7) H 11/24/24 17:10 Lymph # (Auto) 0.8 10^3/uL (0.8-4.8) 11/24/24 17:10 [place] # (Auto) 1.3 10^3/uL (0.2-0.9) H 11/24/24 17:10 Eos # (Auto) 0.1 10^3/uL (0.0-0.8) 11/24/24 17:10 Baso # (Auto) 0.1 10^3/uL (0.0-0.1) 11/24/24 17:10 Nucleated RBC % (auto) 0 % 11/24/24 17:10 Nucleated RBCs # 0.0 /100WBC 11/24/24 17:10 PT 15.10 SECONDS (12.1-14.9) H 11/24/24 17:10 INR 1.11 (0.8-1.2) 11/24/24 17:10 Sodium 142 mmol/L (136-145) 11/24/24 17:10 Potassium 4.4 mmol/L (3.5-5.1) 11/24/24 17:10 Chloride 102 mmol/L (98-107) 11/24/24 17:10 Carbon Dioxide 28 mmol/L (22-29) 11/24/24 17:10 Anion Gap 16.4 (5-19) 11/24/24 17:10 BUN 38 mg/dL (8-23) H 11/24/24 17:10 Creatinine 1.6 mg/dL (0.7-1.2) H 11/24/24 17:10 GFR Calculation Not Reportable 11/24/24 17:10 Glucose 217 mg/dL (65-115) H 11/24/24 17:10 Calculated Osmolality 310 mOsm/kg (285-295) H 11/24/24 17:10 Lactic Acid 1.7 mmol/L (0.5-2.2) 11/24/24 17:10 Calcium 9.3 mg/dL (8.5-10.5) 11/24/24 17:10 Total Bilirubin 0.4 mg/dL (0.15-1.2) 11/24/24 17:10 AST 10 U/L (0-40) 11/24/24 17:10 ALT < 5 U/L (0-41) 11/24/24 17:10 Alkaline Phosphatase 100 U/L (40-130) 11/24/24 17:10 Total Protein 6.7 g/dL (6.6-8.7) 11/24/24 17:10 Albumin 3.5 g/dL (3.5-5.2) 11/24/24 17:10 Globulin 3.2 g/dL (1.3-4.6) 11/24/24 17:10 Urine Color Yellow (Yellow) 11/24/24 18:42 Urine Appearance Clear (CLEAR) 11/24/24 18:42 Urine pH 6.0 (5-7) 11/24/24 18:42 Ur Specific [place] 1.044 (1.005-1.030) H 11/24/24 18:42 Urine Protein 2+ (Negative) A 11/24/24 18:42 Urine Glucose (UA) 2+ (Normal) H 11/24/24 18:42 Urine Ketones Trace (Negative) 11/24/24 18:42 Urine Blood Negative (Negative) 11/24/24 18:42 Urine Nitrate Negative (Negative) 11/24/24 18:42 Urine Bilirubin Negative (Negative) 11/24/24 18:42 Urine Urobilinogen 0.2 mg/dL (Negative) 11/24/24 18:42 Ur Leukocyte Esterase Trace (Negative) A 11/24/24 18:42 Urine RBC 3-5 /hpf (0-2) 11/24/24 18:42 Urine WBC 6-10 /hpf (0-5) 11/24/24 18:42 Ur Squamous Epith Cells 0-5 /hpf (0-5) 11/24/24 18:42 Amorphous Sediment Not Reportable 11/24/24 18:42 Urine Bacteria None seen /hpf (NONE) 11/24/24 18:42 Hyaline Casts 2.05 /lpf 11/24/24 18:42 All radiology interpretation(s) finalized by discharge Discharge Plan Discharge Patient Disposition: Home Clinical Impression: Altered mental status, Vomiting Condition: Stable Prescriptions: New ondansetron 4 mg tablet,disintegrating 4 mg PO Q6H PRN (Reason: nausea and vomiting) Qty: 14 0RF No Action lisinopril 20 mg tablet 20 mg PO BID tamsulosin 0.4 mg capsule 0.4 mg PO BEDTIME hydralazine 100 mg tablet 100 mg PO TID tramadol 50 mg tablet 50 mg PO Q6H PRN (Reason: Pain) bisacodyl 10 mg Suppository 10 mg KS DAILY PRN (Reason: Constipation) metformin 1,000 mg tablet 1,000 mg PO BID bisacodyl 5 mg Tablet,Delayed Release (Dr/Ec) 10 mg PO DAILY PRN (Reason: Constipation) gabapentin 100 mg Capsule 100 mg PO BEDTIME insulin glargine [Lantus Solostar U-100 Insulin] 100 unit/mL (3 mL) insulin pen 20 unit SUBCUT BEDTIME acetaminophen 325 mg Tablet 650 mg PO Q6H PRN (Reason: PAIN OR FEVER) atorvastatin 10 mg tablet 10 mg PO BEDTIME Eliquis 5 mg tablet 5 mg PO BID Ocuvite [facility] 50 mg-15 unit- 4.5 mg-2.5 mg Tablet,Chewable 1 tab PO BEDTIME cyanocobalamin (vitamin B-12) 500 mcg Tablet 250 mcg PO DAILY loratadine 10 mg tablet 10 mg PO DAILY insulin aspart U-100 [Novolog FlexPen U-100 Insulin] 100 unit/mL (3 mL) insulin pen See Rx Instructions .ROUTE .COMPLEX Rx Instructions: PER SLIDING SCALE: BS 150-200= 0 UNITS, 201-250= 2 UNITS, 251-300= 4 UNITS, 301-350= 6 UNITS, 351-400= 8 UNITS. BS GREATER THAN 400 GIVE 8 UNITS. CALL PCP IF BS <60 AMD >400 IF SYMPTOMATIC X 3 READINGS. diltiazem HCl 180 mg capsule,extended release 24hr 180 mg PO DAILY amlodipine 5 mg tablet 5 mg PO DAILY clonidine HCl 0.1 mg tablet 0.1 mg PO TID furosemide 40 mg tablet 40 mg PO DAILY potassium chloride 10 mEq tablet extended release 10 meq PO DAILY Jardiance 10 mg tablet 10 mg PO DAILY sertraline 100 mg tablet 100 mg PO BEDTIME Trulicity 0.75 mg/0.5 mL pen injector See Rx Instructions .ROUTE .COMPLEX Rx Instructions: inject 0.5ml subcutaneously once a day on Sunday . 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
[2024-11-24 17:29] LABS: Basophils # 0.1 10^3/uL (0.0-0.1); Basophils % 0.4 %; Eosinophils # 0.1 10^3/uL (0.0-0.8); Eosinophils % 0.3 %; Hematocrit 38.8 % (37-53); Lymphocytes # 0.8 10^3/uL (0.8-4.8); Lymphocytes % 4.6 %; Mean Corpuscular HGB Conc 32.7 g/dL (30-55); Mean Corpuscular Hemoglobin 30.7 pg (27-33); Mean Corpuscular Volume 93.7 fl (82-101); Mean Platelet Volume 9.7 fL (7.4-10.4); Monocytes # 1.3 10^3/uL (0.2-0.9); Monocytes % 7.2 %; Nucleated Red Blood Cells % 0 %; Platelet Count 316 10^3/cmm (157-399); Red Blood Count 4.14 10^6/uL (3.85-5.65); Red Cell Distribution Width 14.1 % (12.1-15.1); White Blood Count 18.16 10^3/uL (3.29-11.43)
[2024-11-24] MEDS: iohexol 350 mg/mL 500 mL Btl (per mL) IV (17:30)
[2024-11-24 17:44] LABS: INR 1.11 (0.8-1.2)
[2024-11-24 18:04] LABS: Alanine Aminotransferase < 5 U/L (0-41); Albumin Level 3.5 g/dL (3.5-5.2); Alkaline Phosphatase 100 U/L (40-130); Anion Gap 16.4 (5-19); Aspartate Amino Transferase 10 U/L (0-40); Blood Urea Nitrogen 38 mg/dL (8-23); Calcium 9.3 mg/dL (8.5-10.5); Carbon Dioxide 28 mmol/L (22-29); Chloride 102 mmol/L (98-107); Creatinine Clr Calc Pharmacy 44.0609; Globulin 3.2 g/dL (1.3-4.6); Glucose 217 mg/dL (65-115); Osmolality Calculated 310 mOsm/kg (285-295); Potassium 4.4 mmol/L (3.5-5.1); Sodium 142 mmol/L (136-145); Total Bilirubin 0.4 mg/dL (0.15-1.2); Total Protein 6.7 g/dL (6.6-8.7)
[2024-11-24 18:08] LABS: Lactic Sepsis W/Reflex 1.7 mmol/L (0.5-2.2)
[2024-11-24 18:27] VITALS: BP 146/95; PULSE 103; O2SAT 96
[2024-11-24] MEDS: pantoprazole 40 mg SDV 80 MG IVP (18:27)
[2024-11-24 19:02] LABS: Bilirubin Urine Negative (Negative); Blood Urine Negative (Negative); Glucose Urine UA 2+ (Normal); Ketones Urine Trace (Negative); Leukocyte Esterase Urine Trace (Negative); Nitrate Urine Negative (Negative); Protein Urine 2+ (Negative); Urine Appearance Clear (CLEAR); Urine Color Yellow (Yellow); Urobilinogen Urine 0.2 mg/dL (Negative)
[2024-11-24 19:07] LABS: Add Urine Microscopic? YES; Bacteria Urine None Seen /hpf; Hyaline Casts Urine 2.05 /lpf; Squamous Epithelial Cell Urine 0-5 /hpf (0-5)
[2024-11-24 19:13] LABS: Add Urine Culture? No; Specific Gravity, Urine 1.044 (1.005-1.030); UA Slide Review UA Slide Review Perf
[2024-11-24 20:05] LABS: Hematocrit 39.1 % (37-53)
[2024-11-24 21:00] VITALS: BP 132/93; PULSE 101; RESP 16; O2SAT 95
[2024-11-24 21:13] VITALS: BP 132/93; PULSE 101; O2SAT 96
== END 2024-11-24 21:14 | disposition home or self-care (01) ==
PROVIDERS: Family Medicine; Emergency Provider Emergency Medicine
DX: R41.82 Altered mental status, unspecified (principal); R11.10 Vomiting, unspecified; Z79.84 Long term (current) use of oral hypoglycemic drugs; Z79.01 Long term (current) use of anticoagulants; Z79.4 Long term (current) use of insulin; Z87.891 Personal history of nicotine dependence; I25.10 Atherosclerotic heart disease of native coronary artery without angina pectoris; I12.9 Hypertensive chronic kidney disease with stage 1 through stage 4 chronic kidney disease, or unspecified chronic kidney disease; N18.9 Chronic kidney disease, unspecified
CPT/HCPCS: 36415; 70450; 74177; 80053; 81001; 83605; 85014; 85018; 85025; 85610; 87040; 96374; 99285; J2470

== ENCOUNTER 2024-11-29 10:14 | Emergency (ER) | payer MEDICARE, MEDICAID, SELFPAY ==
--- NOTE | 2024-11-29 10:19 | XRR_ITS ---
PROCEDURE INFORMATION: Exam: XR Left Hip Exam date and time: 11/29/2024 10:31 AM Age: 74 years old Clinical indication: Hip pain; Left hip; Prior surgery; Surgery date: 6+ months; Surgery type: Broken pelvis repair TECHNIQUE: Imaging protocol: Radiologic exam of the left hip. Views: 2 or 3 views hip with pelvis when performed. COMPARISON: CT abdomen pelvis w con* [id number] 11/24/2024 5:26 PM FINDINGS: Bones/joints: There are postoperative changes involving the left acetabulum. Anterior acetabular column and inferior pubic rami fractures on the left seen on prior CT not well demonstrated on this exam. The pelvic ring otherwise appears to be intact. No definite acute fracture or dislocation is appreciated. Bony mineralization is decreased. SI joints and symphysis pubis are normal. The femoral heads are normally located. No definite fractures noted involving the proximal left femur. Soft tissues: There are surgical skin rosalva superficial to the left hip. XR/XR hip LT 2-3V wo/w pel* [id number] IMPRESSION: 1. Postoperative changes involving the left acetabulum. 2. Anterior acetabular column and inferior pubic rami fractures seen on prior CT exam not well demonstrated on this exam.
[2024-11-29 10:20] VITALS: BP 138/72; PULSE 87; RESP 16; O2SAT 97
--- NOTE | 2024-11-29 10:35 | W.ED.EXTPRO ---
HPI - Extremity Problem General: Chief complaint: Extremity Injury, Lower Stated complaint: left hip pain Time Seen by Provider: 11/29/24 10:14 History of Present Illness: 74-year-old male presents in ER via EMS from local [facility] complaining of left hip pain. He denies any trauma or falls he is previously a stroke he has contractures of the left arm and leg. EMS was called due to the positioning of his leg they were concerned that he may have injured the hip. Patient reports pain in the hip when he is moved from the EMS cot to the [facility]. He complained to the nurse of some lower leg pain, however when I specifically asked him about lower leg pain he denied it. Associated symptoms: Deny chest pain, fever(s) or rash Related Data Home Medications ?Medication ?Instructions ?Recorded ?Confirmed hydralazine 100 mg tablet 100 mg PO TID 04/04/20 11/29/24 lisinopril 20 mg tablet 20 mg PO BID 04/04/20 11/29/24 tamsulosin 0.4 mg capsule 0.4 mg PO BEDTIME 04/04/20 11/29/24 bisacodyl 10 mg rectal suppository 10 mg [place] DAILY PRN Constipation 02/12/22 11/29/24 bisacodyl 5 mg tablet,delayed 10 mg PO DAILY PRN Constipation 02/12/22 11/29/24 release gabapentin 100 mg capsule 100 mg PO BEDTIME 02/12/22 11/29/24 insulin glargine 100 unit/mL (3 20 unit SUBCUT BEDTIME 02/12/22 11/29/24 mL) subcutaneous pen (Lantus Solostar U-100 Insulin) metformin 1,000 mg tablet 1,000 mg PO BID 02/12/22 11/29/24 tramadol 50 mg tablet 50 mg PO Q6H PRN Pain 02/12/22 11/29/24 acetaminophen 325 mg tablet 650 mg PO Q6H PRN PAIN OR FEVER 07/08/23 11/29/24 apixaban 5 mg tablet (Eliquis) 5 mg PO BID 07/08/23 11/29/24 atorvastatin 10 mg tablet 10 mg PO BEDTIME 07/08/23 11/29/24 vit C 50 mg-E 15 unit-zinc cit 4.5 1 tab PO BEDTIME 07/08/23 11/29/24 mg-lutein 2.5 mg-zeaxan chew tablet ([facility] [employer] [facility]) cyanocobalamin (vitamin B-12) 500 250 mcg PO DAILY 01/24/24 11/29/24 mcg tablet insulin aspart U-100 100 unit/mL See Rx Instructions .Route .COMPLEX 01/24/24 11/29/24 (3 mL) subcutaneous pen (Novolog FlexPen U-100 Insulin aspart) loratadine 10 mg tablet 10 mg PO DAILY 01/24/24 11/29/24 amlodipine 5 mg tablet 5 mg PO DAILY 11/18/24 11/29/24 clonidine HCl 0.1 mg tablet 0.1 mg PO TID 11/18/24 11/29/24 diltiazem HCl 180 mg 180 mg PO DAILY 11/18/24 11/29/24 capsule,extended release 24 hr dulaglutide 0.75 mg/0.5 mL See Rx Instructions .Route .COMPLEX 11/18/24 11/29/24 subcutaneous pen injector (Trulicity) empagliflozin 10 mg tablet 10 mg PO DAILY 11/18/24 11/29/24 (Jardiance) furosemide 40 mg tablet 40 mg PO DAILY 11/18/24 11/29/24 potassium chloride 10 mEq 10 meq PO DAILY 11/18/24 11/29/24 tablet,extended release sertraline 100 mg tablet 100 mg PO BEDTIME 11/18/24 11/29/24 Previous Rx's ?Medication ?Instructions ?Recorded ondansetron 4 mg disintegrating 4 mg PO Q6H PRN nausea and 11/24/24 tablet vomiting #14 tabs Allergies Allergy/AdvReac Type Severity Reaction Status Date / Time Penicillins Allergy ALGY-Rash Verified 11/18/24 04:20 Review of Systems Const: Denies: fever(s) or chills Card: Denies: chest pain Resp: Denies: dyspnea GI: Denies: abdominal pain : Denies: dysuria, urinary frequency or urinary urgency Musc: Denies: neck pain or back pain Skin/Breast: Denies: rash PFSH ED PFSH: Medical History Atrial fibrillation with rapid ventricular response Peripheral neuropathy CAD (coronary artery disease) Depression Chronic anticoagulation CVA (cerebral vascular accident) 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 CKD (chronic kidney disease) Baseline creatinine 1.9 Poorly controlled type 2 diabetes mellitus Dyslipidemia DVT (deep venous thrombosis) HTN (hypertension) Polycythemia Atrial fibrillation Surgical History No pertinent past surgical history Family History Other CAD (coronary artery disease) Cancer Social History Smoking and tobacco/nicotine status: former use of tobacco/nicotine Alcohol intake: never Substance/Drug Use: never Caregiver/support person: No Household members: none Housing: House Physical Exam Const: GENERAL APPEARANCE: cooperative ORIENTATION/CONSCIOUSNESS: Yes awake, Yes oriented to person, Yes oriented to place and Yes oriented to time HENMT: COMMON NORMALS: normocephalic, atraumatic and hearing grossly normal bilaterally HEAD & SCALP: normocephalic and atraumatic Resp: COMMON NORMALS: normal respiratory effort, No retractions, No use of accessory muscles and clear to auscultation bilaterally AUSCULTATION: clear to auscultation bilaterally Cardio: COMMON NORMALS: regular rate, regular rhythm and No murmurs present (Cardio) RATE: regular rate RHYTHM: regular rhythm GI: COMMON NORMALS: Soft to palpation and No hepatosplenomegaly present AUSCULTATION: Yes normoactive bowel sounds PALPATION: Yes Soft to palpation, No Tenderness to palpation present (GI), No Guarding due to palpation present (GI) and Yes No hepatosplenomegaly present Extremity: COMMON NORMALS: capillary refill normal, no clubbing, cyanosis or edema, no calf tenderness and no pedal edema OTHER: Contractures of the left arm and leg due to previous stroke decreased sensation in the lower extremities due to peripheral neuropathy Neuro: SENSORIUM/ORIENTATION: Yes oriented to person, Yes oriented to place and Yes oriented to time Skin: COMMON NORMALS: no rashes or lesions noted GENERAL SKIN EXAM: no rashes or lesions noted Course Vital Signs: Vital signs: Vital Signs Pulse Rate 78 11/29/24 14:39 Respiratory Rate 16 11/29/24 10:20 Blood Pressure 129/82 11/29/24 14:39 Pulse Oximetry 94 11/29/24 14:39 Oxygen Delivery Me thod Room Air 11/29/24 11:21 MDM - Extremity (Nontraumatic) Medical Decision Making X-ray does not show any acute fractures radiology over read will discharge back patient denies any pain except for when he moves but he did just recently have the surgeries and needs more postop pain no changes at this time Medical Records I reviewed the patient's medical records. Lab Data Radiology Impressions Hip/Pelvis X-Ray 11/29/24 10:19 IMPRESSION: 1. Postoperative changes involving the left acetabulum. 2. Anterior acetabular column and inferior pubic rami fractures seen on prior CT exam not well demonstrated on this exam. All radiology interpretation(s) finalized by discharge Discharge Plan Discharge Patient Disposition: Home Clinical Impression: Postoperative pain, acute, hip Condition: Stable Prescriptions: No Action lisinopril 20 mg tablet 20 mg PO BID tamsulosin 0.4 mg capsule 0.4 mg PO BEDTIME hydralazine 100 mg tablet 100 mg PO TID tramadol 50 mg tablet 50 mg PO Q6H PRN (Reason: Pain) bisacodyl 10 mg Suppository 10 mg [place] DAILY PRN (Reason: Constipation) metformin 1,000 mg tablet 1,000 mg PO BID bisacodyl 5 mg Tablet,Delayed Release (Dr/Ec) 10 mg PO DAILY PRN (Reason: Constipation) gabapentin 100 mg Capsule 100 mg PO BEDTIME insulin glargine [Lantus Solostar U-100 Insulin] 100 unit/mL (3 mL) insulin pen 20 unit SUBCUT BEDTIME acetaminophen 325 mg Tablet 650 mg PO Q6H PRN (Reason: PAIN OR FEVER) atorvastatin 10 mg tablet 10 mg PO BEDTIME Eliquis 5 mg tablet 5 mg PO BID [facility]-15 unit- 4.5 mg-2.5 mg Tablet,Chewable 1 tab PO BEDTIME cyanocobalamin (vitamin B-12) 500 mcg Tablet 250 mcg PO DAILY loratadine 10 mg tablet 10 mg PO DAILY insulin aspart U-100 [Novolog FlexPen U-100 Insulin] 100 unit/mL (3 mL) insulin pen See Rx Instructions .ROUTE .COMPLEX Rx Instructions: PER SLIDING SCALE: BS 150-200= 0 UNITS, 201-250= 2 UNITS, 251-300= 4 UNITS, 301-350= 6 UNITS, 351-400= 8 UNITS. BS GREATER THAN 400 GIVE 8 UNITS. CALL PCP IF BS <60 AMD >400 IF SYMPTOMATIC X 3 READINGS. diltiazem HCl 180 mg capsule,extended release 24hr 180 mg PO DAILY amlodipine 5 mg tablet 5 mg PO DAILY clonidine HCl 0.1 mg tablet 0.1 mg PO TID furosemide 40 mg tablet 40 mg PO DAILY potassium chloride 10 mEq tablet extended release 10 meq PO DAILY Jardiance 10 mg tablet 10 mg PO DAILY sertraline 100 mg tablet 100 mg PO BEDTIME Trulicity 0.75 mg/0.5 mL pen injector See Rx Instructions .ROUTE .COMPLEX Rx Instructions: inject 0.5ml subcutaneously once a day on Sunday . ondansetron 4 mg tablet,disintegrating 4 mg PO Q6H PRN (Reason: nausea and vomiting) Qty: 14 0RF Discharge Orders: Discharge ED (Routine); Ordered 11/29/24 Ordered By: Bucky Walker Discharge Diet: Usual diet Discharge Activity: Resume usual activity Patient Instructions: Opioid Safety, Pain Management Activity Restrictions/Additional Instructions: Thank you for choosing [facility] for your healthcare needs today. It is very important that you follow up as instructed or that you return to the Emergency Department should you have concerns or if your condition changes or worsens in any way. You are seen emergency room with complaint of hip pain. X-ray your hip was normal. Pain is likely a result of surgery. There is no evidence of fracture or malposition of the hardware from the recent surgery. You can use pain medications previously prescribed. Print Language: Albanian Coding Level of Care Code ED Director Risk for Sergio Dahl
[2024-11-29 11:21] VITALS: BP 111/67; PULSE 77; O2SAT 100
[2024-11-29 14:39] VITALS: BP 129/82; PULSE 78; O2SAT 94
== END 2024-11-29 14:40 | disposition home or self-care (01) ==
PROVIDERS: Emergency Provider Family Medicine
DX: M25.552 Pain in left hip (principal); G89.18 Other acute postprocedural pain; Z79.84 Long term (current) use of oral hypoglycemic drugs; Z79.4 Long term (current) use of insulin; Z79.01 Long term (current) use of anticoagulants; Z87.891 Personal history of nicotine dependence; E78.5 Hyperlipidemia, unspecified; I25.10 Atherosclerotic heart disease of native coronary artery without angina pectoris; Z86.73 Personal history of transient ischemic attack (TIA), and cerebral infarction without residual deficits; I12.9 Hypertensive chronic kidney disease with stage 1 through stage 4 chronic kidney disease, or unspecified chronic kidney disease; N18.9 Chronic kidney disease, unspecified
CPT/HCPCS: 73502; 99283

== ENCOUNTER 2024-12-05 18:59 | Inpatient (IN) | payer MEDICARE, MEDICAID, SELFPAY ==
[2024-12-05 19:06] VITALS: BP 91/59; PULSE 81; RESP 20; TEMP 36.8; O2SAT 94; BMI 28.7
--- NOTE | 2024-12-05 19:32 | W.ED.AMS ---
HPI - Altered Mental Status General: Chief Complaint: Altered Mental Status Stated Complaint: ams Time Seen by Provider: 12/05/24 19:15 History of Present Illness: 74-year-old male jail patient with indwelling Regan catheter and on multiple medications presents with concerns of some transient altered mental status. Patient reportedly has had multiple visits to the emergency department for similar. The patient unfortunately is unable to give much in the way of meaningful history the patient is alert but confused he is complaining of some mild left hip pain. Patient denies any fever or chills. He is unsure about what month it is but does not know what year it is. The patient does not feel like he has any other significant complaints and reports that he is confused on why he was sent over for evaluation. Related Data Home Medications ?Medication ?Instructions ?Recorded ?Confirmed hydralazine 100 mg tablet 100 mg PO TID 04/04/20 11/29/24 lisinopril 20 mg tablet 20 mg PO BID 04/04/20 11/29/24 tamsulosin 0.4 mg capsule 0.4 mg PO BEDTIME 04/04/20 11/29/24 bisacodyl 10 mg rectal suppository [address] DAILY PRN Constipation 02/12/22 11/29/24 bisacodyl 5 mg tablet,delayed 10 mg PO DAILY PRN Constipation 02/12/22 11/29/24 release gabapentin 100 mg capsule 100 mg PO BEDTIME 02/12/22 11/29/24 insulin glargine 100 unit/mL (3 20 unit SUBCUT BEDTIME 02/12/22 11/29/24 mL) subcutaneous pen (Lantus Solostar U-100 Insulin) metformin 1,000 mg tablet 1,000 mg PO BID 02/12/22 11/29/24 tramadol 50 mg tablet 50 mg PO Q6H PRN Pain 02/12/22 11/29/24 acetaminophen 325 mg tablet 650 mg PO Q6H PRN PAIN OR FEVER 07/08/23 11/29/24 apixaban 5 mg tablet (Eliquis) 5 mg PO BID 07/08/23 11/29/24 atorvastatin 10 mg tablet 10 mg PO BEDTIME 07/08/23 11/29/24 vit C 50 mg-E 15 unit-zinc cit 4.5 1 tab PO BEDTIME 07/08/23 11/29/24 mg-lutein 2.5 mg-zeaxan chew tablet ([facility]) cyanocobalamin (vitamin B-12) 500 250 mcg PO DAILY 01/24/24 11/29/24 mcg tablet insulin aspart U-100 100 unit/mL See Rx Instructions .Route .COMPLEX 01/24/24 11/29/24 (3 mL) subcutaneous pen (Novolog FlexPen U-100 Insulin aspart) loratadine 10 mg tablet 10 mg PO DAILY 01/24/24 11/29/24 amlodipine 5 mg tablet 5 mg PO DAILY 11/18/24 11/29/24 clonidine HCl 0.1 mg tablet 0.1 mg PO TID 11/18/24 11/29/24 diltiazem HCl 180 mg 180 mg PO DAILY 11/18/24 11/29/24 capsule,extended release 24 hr dulaglutide 0.75 mg/0.5 mL See Rx Instructions .Route .COMPLEX 11/18/24 11/29/24 subcutaneous pen injector (Trulicity) empagliflozin 10 mg tablet 10 mg PO DAILY 11/18/24 11/29/24 (Jardiance) furosemide 40 mg tablet 40 mg PO DAILY 11/18/24 11/29/24 potassium chloride 10 mEq 10 meq PO DAILY 11/18/24 11/29/24 tablet,extended release sertraline 100 mg tablet 100 mg PO BEDTIME 11/18/24 11/29/24 Previous Rx's ?Medication ?Instructions ?Recorded ondansetron 4 mg disintegrating 4 mg PO Q6H PRN nausea and 11/24/24 tablet vomiting #14 tabs Allergies Allergy/AdvReac Type Severity Reaction Status Date / Time Penicillins Allergy ALGY-Rash Verified 12/05/24 20:12 Review of Systems General: Reports: ROS unobtainable due to mental status PFS ED PFSH: Medical History Atrial fibrillation with rapid ventricular response Peripheral neuropathy CAD (coronary artery disease) Depression Chronic anticoagulation CVA (cerebral vascular accident) 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 CKD (chronic kidney disease) Baseline creatinine 1.9 Poorly controlled type 2 diabetes mellitus Dyslipidemia DVT (deep venous thrombosis) HTN (hypertension) Polycythemia Atrial fibrillation Surgical History No pertinent past surgical history Family History Other CAD (coronary artery disease) Cancer Social History Smoking and tobacco/nicotine status: former use of tobacco/nicotine Alcohol intake: never Substance/Drug Use: never Caregiver/support person: No Household members: none Housing: House Physical Exam Const: COMMON NORMALS: no acute distress, alert and well nourished HENMT: COMMON NORMALS: normocephalic HEAD & SCALP: normocephalic Eye: COMMON NORMALS: Equal, round and reactive pupils present, EOMs intact bilaterally and conjunctivae normal CONJUNCTIVA: Yes conjunctivae normal PUPIL: Yes Equal, round and reactive pupils present Resp: COMMON NORMALS: normal respiratory effort, No retractions, No use of accessory muscles, clear to auscultation bilaterally and percussion normal AUSCULTATION: clear to auscultation bilaterally PERCUSSION: percussion normal GI: COMMON NORMALS: Normal to inspection, nondistended, normoactive bowel sounds present, Soft to palpation, non-tender, No hepatosplenomegaly present, no masses and no bruits PALPATION: Yes Soft to palpation and Yes No hepatosplenomegaly present Extremity: COMMON NORMALS: normal to inspection, full ROM, capillary refill normal, no joint enlargement, no clubbing, cyanosis or edema, no calf tenderness and no pedal edema Neuro: SENSORIUM/ORIENTATION: Yes alert Skin: COMMON NORMALS: no rashes or lesions noted, turgor normal and no jaundice GENERAL SKIN EXAM: no rashes or lesions noted and turgor normal Course Vital Signs: Vital signs: Vital Signs Temperature 98.2 F 12/05/24 19:06 Pulse Rate 87 12/05/24 21:38 Respiratory Rate 14 12/05/24 21:38 Blood Pressure 106/72 12/05/24 21:38 Pulse Oximetry 97 12/05/24 21:38 Oxygen Delivery Me thod Room Air 12/05/24 21:38 MDM - Altered Mental Status Medical Decision Making Discussed differential diagnosis of patient's presentation with patient just a little bit. The care was discussed with emergency department team. Will check some routine labs and do serial reexaminations his blood pressure is a little bit on the low side but he denies being dizzy or weak. His pulse is 81 and he is afebrile. Patient's white blood cell count came back significantly elevated. The patient's vital signs remained fairly stable his CRP and platelets as an acute phase reactant were also elevated it looks like he may have a urinary tract infection/pyelonephritis. Will empirically treat him with broad-spectrum antibiotic with cefepime to cover potential pseudomonal or ESBL pathogens. I talked with Dr. ESCOBEDO about admitting the patient and he was agreeable. Lab Data 12/05/24 19:44 12/05/24 19:44 Radiology Impressions Chest X-Ray 12/05/24 20:27 IMPRESSION: No focal consolidation. Laboratory Results WBC 38.93 10^3/uL (3.29-11.43) H* 12/05/24 19:44 RBC 3.53 10^6/uL (3.85-5.65) L 12/05/24 19:44 Hgb 10.70 g/dL (11.27-16.99) L 12/05/24 19:44 Hct 34.6 % (37-53) L 12/05/24 19:44 MCV 98.0 fl (82-101) 12/05/24 19:44 MCH 30.3 pg (27-33) 12/05/24 19:44 MCHC 30.9 g/dL (30-55) 12/05/24 19:44 RDW 14.5 % (12.1-15.1) 12/05/24 19:44 Plt Count 497 10^3/cmm (157-399) H 12/05/24 19:44 MPV 9.0 fL (7.4-10.4) 12/05/24 19:44 Neut % (Auto) 90.0 % 12/05/24 19:44 Lymph % (Auto) 3.0 % 12/05/24 19:44 [place] % (Auto) 4.6 % 12/05/24 19:44 Eos % (Auto) 0.0 % 12/05/24 19:44 Baso % (Auto) 0.3 % 12/05/24 19:44 Neut # (Auto) 34.97 10^3/uL (1.8-7.7) H 12/05/24 19:44 Lymph # (Auto) 1.2 10^3/uL (0.8-4.8) 12/05/24 19:44 [place] # (Auto) 1.8 10^3/uL (0.2-0.9) H 12/05/24 19:44 Eos # (Auto) 0.0 10^3/uL (0.0-0.8) 12/05/24 19:44 Baso # (Auto) 0.1 10^3/uL (0.0-0.1) 12/05/24 19:44 Nucleated RBC % (auto) 0 % 12/05/24 19:44 Nucleated RBCs # 0.0 /100WBC 12/05/24 19:44 Sodium 129 mmol/L (136-145) L 12/05/24 19:44 Potassium 4.6 mmol/L (3.5-5.1) 12/05/24 19:44 Chloride 96 mmol/L (98-107) L 12/05/24 19:44 Carbon Dioxide 17 mmol/L (22-29) L 12/05/24 19:44 Anion Gap 20.6 (5-19) H 12/05/24 19:44 BUN 26 mg/dL (8-23) H 12/05/24 19:44 Creatinine 1.8 mg/dL (0.7-1.2) H 12/05/24 19:44 GFR Calculation Not Reportable 12/05/24 19:44 Glucose 243 mg/dL (65-115) H 12/05/24 19:44 Calculated Osmolality 281 mOsm/kg (285-295) L 12/05/24 19:44 Lactic Acid 1.4 mmol/L (0.5-2.2) 12/05/24 20:32 Calcium 8.9 mg/dL (8.5-10.5) 12/05/24 19:44 Total Bilirubin 0.5 mg/dL (0.15-1.2) 12/05/24 19:44 AST 8 U/L (0-40) 12/05/24 19:44 ALT < 5 U/L (0-41) 12/05/24 19:44 Alkaline Phosphatase 154 U/L (40-130) H 12/05/24 19:44 Ammonia 30 umol/L (16-60) 12/05/24 19:44 C-Reactive Protein 304.4 mg/L (0.0-4.9) H 12/05/24 19:44 Total Protein 6.7 g/dL (6.6-8.7) 12/05/24 19:44 Albumin 2.9 g/dL (3.5-5.2) L 12/05/24 19:44 Globulin 3.8 g/dL (1.3-4.6) 12/05/24 19:44 Urine Color Yellow (Yellow) 12/05/24 21:36 Urine Appearance Cloudy (CLEAR) A 12/05/24 21:36 Urine pH 5 (5-7) 12/05/24 21:36 Ur Specific [place] 1.015 (1.005-1.030) 12/05/24 21:36 Urine Protein 1+ (Negative) H 12/05/24 21:36 Urine Glucose (UA) 4+ (Normal) H 12/05/24 21:36 Urine Ketones Negative (Negative) 12/05/24 21:36 Urine Blood 3+ (Negative) H 12/05/24 21:36 Urine Nitrate Negative (Negative) 12/05/24 21:36 Urine Bilirubin Neg (Negative) 12/05/24 21:36 Urine Urobilinogen Neg mg/dL (Negative) 12/05/24 21:36 Ur Leukocyte Esterase 2+ (Negative) H 12/05/24 21:36 Urine RBC 21-50 /hpf (0-2) H 12/05/24 21:36 Urine WBC 51-100 /hpf (0-5) H 12/05/24 21:36 Ur Squamous Epith Cells 0-5 /hpf (0-5) 12/05/24 21:36 Amorphous Sediment Not Reportable 12/05/24 21:36 Urine Bacteria 4+ /hpf (NONE) H 12/05/24 21:36 Hyaline Casts 26.04 /lpf 12/05/24 21:36 Urine Opiates Screen Negative ng/mL (Negative) 12/05/24 21:36 Ur Barbiturates Screen Negative ng/mL (Negative) 12/05/24 21:36 Ur Phencyclidine Scrn Negative ng/mL (Negative) 12/05/24 21:36 Ur Amphetamines Screen Negative ng/mL (Negative) 12/05/24 21:36 U Benzodiazepines Scrn Negative ng/mL (Negative) 12/05/24 21:36 Urine Cocaine Screen Negative ng/mL (Negative) 12/05/24 21:36 U Marijuana (THC) Screen Negative ng/mL (Negative) 12/05/24 21:36 XR interpretation done by ED provider, pending radiology final review ED provider radiology interpretation(s): Preliminary chest xray: Negative for acute fidings. Discharge Plan Discharge Patient Disposition: Admitted As Inpatient Clinical Impression: Delirium due to general medical condition Altered mental status Qualifiers: Altered mental status type: delirium Qualified Code(s): R41.0 - Disorientation, unspecified Sepsis Qualifiers: Sepsis type: sepsis due to unspecified organism Sepsis acute organ dysfunction status: with acute organ dysfunction Condition: Stable Coding Level of Care Code ED Ethylbenzene Cracking Supervisor for Sergio Dahl
[2024-12-05 20:04] LABS: Basophils # 0.1 10^3/uL (0.0-0.1); Basophils % 0.3 %; Hematocrit 34.6 % (37-53); Lymphocytes # 1.2 10^3/uL (0.8-4.8); Mean Corpuscular HGB Conc 30.9 g/dL (30-55); Mean Corpuscular Hemoglobin 30.3 pg (27-33); Monocytes # 1.8 10^3/uL (0.2-0.9); Monocytes % 4.6 %; Neutrophils # 34.97 10^3/uL (1.8-7.7); Nucleated Red Blood Cells % 0 %; Platelet Count 497 10^3/cmm (157-399); Red Blood Count 3.53 10^6/uL (3.85-5.65); Red Cell Distribution Width 14.5 % (12.1-15.1)
[2024-12-05 20:23] LABS: Slide Review Slide Review Perform; White Blood Count 38.93 10^3/uL (3.29-11.43)
--- NOTE | 2024-12-05 20:27 | XRR_ITS ---
PROCEDURE INFORMATION: Exam: XR Chest Exam date and time: 12/05/2024 8:31 PM Age: 74 years old Clinical indication: Abnormal findings; Abnormal diagnostic tests; Abnormal ekg; Additional info: Elevated wbc TECHNIQUE: Imaging protocol: Radiologic exam of the chest. Views: 1 view. COMPARISON: CR (CHEST, ) 11/18/2024 4:33 AM FINDINGS: Lungs: No focal consolidation. Pleural spaces: Unremarkable. No pleural effusion. No pneumothorax. Heart/Mediastinum: Unremarkable. No cardiomegaly. Bones/joints: Unremarkable. XR/XR chest 1V portable [id number] IMPRESSION: No focal consolidation.
[2024-12-05 20:31] LABS: Alanine Aminotransferase < 5 U/L (0-41); Albumin Level 2.9 g/dL (3.5-5.2); Alkaline Phosphatase 154 U/L (40-130); Anion Gap 20.6 (5-19); Aspartate Amino Transferase 8 U/L (0-40); Blood Urea Nitrogen 26 mg/dL (8-23); Calcium 8.9 mg/dL (8.5-10.5); Carbon Dioxide 17 mmol/L (22-29); Chloride 96 mmol/L (98-107); Creatinine Clr Calc Pharmacy 42.0211; Globulin 3.8 g/dL (1.3-4.6); Glucose 243 mg/dL (65-115); Osmolality Calculated 281 mOsm/kg (285-295); Potassium 4.6 mmol/L (3.5-5.1); Sodium 129 mmol/L (136-145); Total Bilirubin 0.5 mg/dL (0.15-1.2); Total Protein 6.7 g/dL (6.6-8.7)
[2024-12-05 20:32] LABS: Ammonia 30 umol/L (16-60)
[2024-12-05] MEDS: ketorolac 30 mg/mL INJ IM (20:34)
[2024-12-05 20:48] VITALS: BP 127/67; PULSE 83; O2SAT 97
[2024-12-05 20:57] LABS: Lactic Sepsis W/Reflex 1.4 mmol/L (0.5-2.2)
[2024-12-05 21:00] LABS: C Reactive Protein 304.4 mg/L (0.0-4.9)
[2024-12-05] MEDS: sodium chloride 0.9% 1,000 ML 999 ML IV ×2 (21:00→22:33)
[2024-12-05] MEDS: cefepime 1,000 mg SDV 1000 MG IVP (21:25)
[2024-12-05 21:38] VITALS: BP 106/72; PULSE 87; RESP 14; O2SAT 97
[2024-12-05 21:42] LABS: Add Urine Microscopic? NO
[2024-12-05 21:50] LABS: Bacteria Urine 4+ /hpf; Hyaline Casts Urine 26.04 /lpf; RBC Urine 21-50 /hpf (0-2); Squamous Epithelial Cell Urine 0-5 /hpf (0-5); WBC Urine 51-100 /hpf (0-5)
[2024-12-05 21:51] LABS: Blood Urine 3+ (Negative); Glucose Urine UA 4+ (Normal); Ketones Urine Negative (Negative); Nitrate Urine Negative (Negative); Protein Urine 1+ (Negative); Specific Gravity, Urine 1.015 (1.005-1.030); Urine Appearance Cloudy (CLEAR); Urine Color Yellow (Yellow); pH Urine 5 (5-7)
[2024-12-05 21:52] LABS: Bilirubin Urine Neg (Negative); Leukocyte Esterase Urine 2+ (Negative); Urobilinogen Urine Neg (Negative)
[2024-12-05 21:53] LABS: Charge for UA Resulting for Rev
[2024-12-05 21:55] LABS: Amphetamines Screen Urine Negative (Negative); Barbiturates Screen Urine Negative (Negative); Benzodiazepines Screen Urine Negative (Negative); Cocaine Screen Urine Negative (Negative); Opiate Screen Urine Negative (Negative); PCP Screen Urine Negative (Negative); THC Screen Urine Negative (Negative)
[2024-12-05 22:05] LABS: UA Slide Review UA Slide Review Perf
[2024-12-05 22:33] VITALS: BP 125/74; PULSE 87; RESP 14; O2SAT 95
--- NOTE | 2024-12-05 22:59 | PM.HP ---
Providers/Chief Complaint Admitting Physician: Jamarcus Mason MD Chief Complaint: Altered Mental Status History of Present Illness Luis Mcintosh is a 74 year old male comes from [facility] facility with altered mental status noted by his daughter and his brother. He has chronic indwelling Regan. Patient states he has no trouble peeing but is told that he retains urine. Patient was found to have white count 39,000, C-reactive protein 300 and urinary tract infection with white count and urine greater than 100. Patient states he had a stroke years ago and balance is poor so he is in a nursing facility. He has history of hypertension, tobacco abuse and diabetes. He also has atrial fibrillation on warfarin and a chronic Regan for retention. He denies that he has a urologist or history of prostate surgery. Patient states he quit tobacco around the time of his stroke which he thinks was 2010. Alcohol is quit similar time no drugs. 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 He wants full code and his next of kin is Michael Mcintosh his brother who is 69 years old Review of Systems Narrative: General no fevers chills Cardiovascular no chest pain Respiratory no shortness of breath cough wheezing GI positive for nausea vomiting today he had constipation but recently got Dulcolax and then had diarrhea that was copious no dysuria hematuria has chronic indwelling Regan Mentation he admits that he must of been sleepy today or confused but does not recall any problem Neuro has a history of stroke and left-sided weakness he states he cannot feel his left side so that is the good thing from the stroke. He gives blood and cannot feel the blood draw needle Medications/Allergies Home Medications ?Medication ?Instructions ?Recorded ?Confirmed ?Last Taken ?Type hydralazine 100 mg tablet 100 mg PO TID 04/04/20 11/29/24 11/29/24 07:00 History lisinopril 20 mg tablet 20 mg PO BID 04/04/20 11/29/24 11/29/24 History tamsulosin 0.4 mg capsule 0.4 mg PO BEDTIME 04/04/20 11/29/24 11/28/24 20:00 History bisacodyl 10 mg rectal suppository 10 mg IA DAILY PRN Constipation 02/12/22 11/29/24 Unknown History bisacodyl 5 mg tablet,delayed 10 mg PO DAILY PRN Constipation 02/12/22 11/29/24 08/10/23 History release gabapentin 100 mg capsule 100 mg PO BEDTIME 02/12/22 11/29/24 11/28/24 20:00 History insulin glargine 100 unit/mL (3 20 unit SUBCUT BEDTIME 02/12/22 11/29/24 11/28/24 20:00 History mL) subcutaneous pen (Lantus Solostar U-100 Insulin) metformin 1,000 mg tablet 1,000 mg PO BID 02/12/22 11/29/24 11/29/24 07:00 History tramadol 50 mg tablet 50 mg PO Q6H PRN Pain 02/12/22 11/29/24 10/06/24 06:50 History acetaminophen 325 mg tablet 650 mg PO Q6H PRN PAIN OR FEVER 07/08/23 11/29/24 10/23/24 18:40 History apixaban 5 mg tablet (Eliquis) 5 mg PO BID 07/08/23 11/29/24 11/29/24 History atorvastatin 10 mg tablet 10 mg PO BEDTIME 07/08/23 11/29/24 11/28/24 20:00 History vit C 50 mg-E 15 unit-zinc cit 4.5 1 tab PO BEDTIME 07/08/23 11/29/24 11/28/24 19:00 History mg-lutein 2.5 mg-zeaxan chew tablet ([facility]) cyanocobalamin (vitamin B-12) 500 250 mcg PO DAILY 01/24/24 11/29/24 11/29/24 History mcg tablet insulin aspart U-100 100 unit/mL See Rx Instructions .Route .COMPLEX 01/24/24 11/29/24 11/17/24 16:20 History (3 mL) subcutaneous pen (Novolog FlexPen U-100 Insulin aspart) loratadine 10 mg tablet 10 mg PO DAILY 01/24/24 11/29/24 11/29/24 08:00 History amlodipine 5 mg tablet 5 mg PO DAILY 11/18/24 11/29/24 11/29/24 History clonidine HCl 0.1 mg tablet 0.1 mg PO TID 11/18/24 11/29/24 11/17/24 19:40 History diltiazem HCl 180 mg 180 mg PO DAILY 11/18/24 11/29/2425 07:00 History capsule,extended release 24 hr dulaglutide 0.75 mg/0.5 mL See Rx Instructions .Route .COMPLEX 11/18/24 11/29/24 11/24/24 History subcutaneous pen injector (Trulicity) empagliflozin 10 mg tablet 10 mg PO DAILY 11/18/24 11/29/24 11/29/24 07:00 History (Jardiance) furosemide 40 mg tablet 40 mg PO DAILY 11/18/24 11/29/24 11/28/24 History potassium chloride 10 mEq 10 meq PO DAILY 11/18/24 11/29/24 11/29/24 08:00 History tablet,extended release sertraline 100 mg tablet 100 mg PO BEDTIME 11/18/24 11/29/24 11/28/24 20:00 History ondansetron 4 mg disintegrating 4 mg PO Q6H PRN nausea and 11/24/24 11/29/24 Unknown Rx tablet vomiting #14 tabs Allergies Allergy/AdvReac Type Severity Reaction Status Date / Time Penicillins Allergy ALGY-Rash Verified 12/05/24 20:12 PFSH Acute PFSH: Medical History (Updated 12/05/24 @ 23:18 by Jamarcus Mason MD) Chronic indwelling Regan catheter Atrial fibrillation with rapid ventricular response Peripheral neuropathy CAD (coronary artery disease) Depression Chronic anticoagulation CVA (cerebral vascular accident) 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 CKD (chronic kidney disease) Baseline creatinine 1.9 Poorly controlled type 2 diabetes mellitus Dyslipidemia DVT (deep venous thrombosis) HTN (hypertension) Polycythemia Atrial fibrillation Surgical History No pertinent past surgical history Family History Other CAD (coronary artery disease) Cancer Social History (Updated 12/05/24 @ 23:14 by Jamarcus Mason MD) Smoking and tobacco/nicotine status: former use of tobacco/nicotine Quit status (tobacco/nicotine): has quit using Year quit tobacco: 2010 Former quit date comment: Due to stroke Alcohol intake: former Year of sobriety/quit date alcohol: 2010 Former alcohol use details: Never heavy drinker Substance/Drug Use: never Additional social history: Next of kin is his brother Michael Mcintosh who is 69 years old patient wants full CODE STATUS Caregiver/support person: No Household members: none Housing: House 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 He knows that Andriy Luo is the president and that it is around [facility]. CV irregular rate is controlled Lungs clear to auscultation bilaterally Abdomen positive bowel sounds soft nontender Calves no tenderness cords pretrip edema left leg mild atrophy Motor patient is able to move all of extremities but his left side is weak compared to the right and discoordinated Data 12/05/24 19:44 12/05/24 19:44 Micro: Microbiology 12/05/24 20:32 Blood Culture - Preliminary Blood SPECIMEN COLLECTED 12/05/24 19:44 Blood Culture - Preliminary Blood SPECIMEN COLLECTED A&P Assessment and plan (1) Sepsis: Patient received antibiotics and fluids and now his blood pressure is improved. Treated for possible ESBL due to chronic indwelling Regan (2) UTI (urinary tract infection): Regan will be removed now and replaced in the morning (3) Chronic indwelling Regan catheter: Regan to be removed now and replaced in the morning (4) Delirium due to general medical condition: Improved (5) Altered mental status: Improved (6) Poorly controlled type 2 diabetes mellitus: Start Lantus and sliding scale insulin. Discontinue metformin due to chronic kidney disease (7) CKD (chronic kidney disease): Patient is no longer candidate for metformin due to risk of lactic acidosis in the CKD. I counseled him regarding this PDMP PDMP Reviewed: Not Reviewed Attestations Medical Necessity Statement*: Admitted to the hospital and anticipate greater than 2 midnights needed to treat his UTI with sepsis Coding Level of Care Code 76761 Diagnoses Sepsis A41.9 Sepsis acute organ dysfunction status: with acute organ dysfunction Sepsis type: sepsis due to unspecified organism UTI (urinary tract infection) N39.0 Chronic indwelling Regan catheter Z97.8 Delirium due to general medical condition F05 Altered mental status R41.0 Altered mental status type: delirium Poorly controlled type 2 diabetes mellitus E11.65 CKD (chronic kidney disease) N18.9 Time Spent (min) 70
[2024-12-05 23:26] VITALS: BP 128/78; PULSE 86; RESP 14; O2SAT 98
[2024-12-06] VITALS (8 sets, daily range): BP systolic 115–143; BP diastolic 56–83; PULSE 67–101; RESP 14–19; TEMP 36.3–37; O2SAT 94–98
[2024-12-06 00:25] LABS: Glucose Point of Care 224 mg/dL (70-110)
[2024-12-06] MEDS: insulin lispro 100 unit/1 mL SUBCUT (00:26)
[2024-12-06] MEDS: sodium chloride 0.9% 1,000 ML 100 ML IV ×3 (00:30→21:35)
[2024-12-06 03:45] LABS: Basophils # 0.1 10^3/uL (0.0-0.1); Basophils % 0.3 %; Hematocrit 32.7 % (37-53); Lymphocytes # 0.9 10^3/uL (0.8-4.8); Lymphocytes % 2.9 %; Mean Corpuscular HGB Conc 31.2 g/dL (30-55); Mean Corpuscular Volume 96.2 fl (82-101); Mean Platelet Volume 9.1 fL (7.4-10.4); Monocytes # 1.3 10^3/uL (0.2-0.9); Monocytes % 4.3 %; Neutrophils # 27.53 10^3/uL (1.8-7.7); Neutrophils % 90.7 %; Nucleated Red Blood Cells % 0 %; Platelet Count 450 10^3/cmm (157-399); Red Cell Distribution Width 14.3 % (12.1-15.1)
[2024-12-06 04:10] LABS: Anion Gap 18.2 (5-19); Blood Urea Nitrogen 28 mg/dL (8-23); Calcium 8.4 mg/dL (8.5-10.5); Carbon Dioxide 19 mmol/L (22-29); Chloride 101 mmol/L (98-107); Creatinine Clr Calc Pharmacy 38.6642; Glucose 168 mg/dL (65-115); Osmolality Calculated 287 mOsm/kg (285-295); Potassium 4.2 mmol/L (3.5-5.1); Sodium 134 mmol/L (136-145)
[2024-12-06 04:24] LABS: Slide Review Slide Review Perform
[2024-12-06 04:25] LABS: White Blood Count 30.35 10^3/uL (3.29-11.43)
--- NOTE | 2024-12-06 04:49 | PC.NURSE ---
Home Medications: Called [facility] to verify home medications @1632. Staff reported that the patients nurse is unavailable and will have to call [facility] back.
[2024-12-06 06:27] LABS: Glucose Point of Care 148 mg/dL (70-110)
[2024-12-06] MEDS: acetaminophen 325 mg Tablet 650 MG PO (11:32)
[2024-12-06] MEDS: cefepime 1,000 mg SDV 1000 MG IVP ×2 (11:32→20:07)
[2024-12-06] MEDS: cloNIDine 0.1 mg Tablet PO ×3 (11:32→20:07)
[2024-12-06] MEDS: amlodipine 5 mg Tablet PO (11:32)
[2024-12-06] MEDS: apixaban 5 mg Tablet PO ×2 (11:32→17:41)
[2024-12-06] MEDS: docusate sodium 100 mg Capsule PO ×2 (11:32→17:41)
--- NOTE | 2024-12-06 12:32 | CTR_ITS ---
PROCEDURE INFORMATION: Exam: CT Abdomen And Pelvis Without Contrast Exam date and time: 12/06/2024 4:58 PM Age: 74 years old Clinical indication: Abdominal pain; Generalized; Prior surgery; Surgery date: <1 month; Surgery type: Left hip/pelvis; Additional info: UTI, cystitis, recent left hip surgery, please include pelvis TECHNIQUE: Imaging protocol: Computed tomography of the abdomen and pelvis without contrast. Radiation optimization: All CT scans at this facility use at least one of these dose optimization techniques: automated exposure control; mA and/or kV adjustment per patient size (includes targeted exams where dose is matched to clinical indication); or iterative reconstruction. COMPARISON: CT abdomen pelvis w con* [id number] 11/24/2024 5:26 PM RADIATION DOSE METRICS: Total DLP (mGy-cm): 864.4 FINDINGS: Pleural spaces: Small bilateral pleural effusion. Heart: Mitral annular calcifications.Coronary arterial atherosclerotic calcifications are present. Liver: Normal. No mass. Gallbladder and biliary ducts: Calcified stones in the gallbladder. Pancreas: Normal. No ductal dilation. Spleen: Multiple punctate calcifications in the spleen consistent with prior granulomatous infection. Adrenal glands: Normal. No mass. Kidneys and ureters: Left simple appearing renal cyst is present which does not need further follow-up. Stomach and bowel: Unremarkable. No obstruction. No mucosal thickening. Appendix: No evidence of appendicitis. Intraperitoneal space: Unremarkable. No free air. No significant fluid collection. Vasculature: Unremarkable. No abdominal aortic aneurysm. Lymph nodes: Unremarkable. No enlarged lymph nodes. Urinary bladder: Locules of air in the bladder with mild pericystic fat stranding which can be seen the setting of cystitis. Correlate with UA. Reproductive: Unremarkable as visualized. Bones/joints: Comminuted fracture of the acetabulum with extension of the fracture planes into the anterior, medial and posterior wall and roof of the acetabulum status post ORIF with malleable plate and multiple cortical screws in place.. Fracture of the left inferior pubic ramus. Grade 1 anterolisthesis L5 on S1. Soft tissues: Unremarkable. CT/CT abdomen pelvis wo con [id number] IMPRESSION: 1. Comminuted fracture of the acetabulum with extension of the fracture planes into the anterior, medial and posterior wall and roof of the acetabulum status post ORIF with malleable plate and multiple cortical screws in place.. Fracture of the left inferior pubic ramus 2. Locules of air in the bladder with mild pericystic fat stranding which can be seen the setting of cystitis. Correlate with UA. COMMENTS: Consistent with the [employer]'s Incidental Findings Committee white paper (J Am Natali Radiol 2018): Any incidental renal lesion less than 1 cm or classified as too small to characterize, or any incidental cystic renal lesion characterized as simple-appearing, is likely benign. No follow-up imaging is recommended for these lesions per consensus recommendations based on imaging criteria.
[2024-12-06 12:52] LABS: Estmated Average Glucose 134; Hemoglobin A1C 6.3 % (4.0-6.0)
[2024-12-06 13:08] LABS: Procalcitonin 0.33 ng/mL (0-0.5); Thyroid Stimulating Hormone 2.11 uIU/mL (0.27-4.20); Vitamin B12 619 pg/mL (232-1245)
[2024-12-06 13:19] LABS: Iron 14 ug/dL (59-158); Percent Saturation 8.3 % (20-50); Total Iron Binding Capacity 168 mcg/dl; Unsaturated Iron Binding 154 ug/dL (112-347)
--- NOTE | 2024-12-06 13:35 | P.PN_ITS ---
Subjective 2 Subjective: Admitted overnight. Cardiac examination awake and alert. Denies any nausea, vomiting, headache. Jovial mood. Seen with brother at bedside. Denies any pain. Vitals/I&O/Wt Last Vital Signs Temp 98.2 F 12/07/24 10:55 Pulse 82 12/07/24 10:55 Resp 18 12/07/24 10:55 BP 119/69 12/07/24 10:55 Pulse Ox 97 12/07/24 10:55 O2 Del Method Room Air 12/07/24 10:55 12/06/24 12/07/24 12/07/24 22:59 06:59 14:59 Intake Total 1161.667 / 2521.667 1360 / 1360 Output Total 550 / 750 350 / 1100 600 / 600 Balance 611.667 / 1771.667 -350 / 1421.667 760 / 760 Weight last 48 hrs Weight 84.005 kg Weight 84.958 kg Weight 83.552 kg Weight 90.718 kg Physical Exam 2 Narrative: General well-developed well-nourished male in no acute cardiopulmonary stress Neuro he is alert and oriented to person place and December 2024 but did not know the exact date. He knows that Andriy Luo is the president and that it is around [facility]. CV irregular rate is controlled Lungs clear to auscultation bilaterally Abdomen positive bowel sounds soft nontender Calves no tenderness cords pretrip edema left leg mild atrophy Motor patient is able to move all of extremities but his left side is weak compared to the right and discoordinated Extremity: Left hip and abducted position, able to straighten the leg but very slowly with pain in the hip. Open recent ORIF wound, healthy without any drainage Data 12/07/24 04:03 12/07/24 04:03 Micro: Microbiology 12/05/24 21:36 Urine Culture - Preliminary Urine Catheterized Gram Negative Rods 12/05/24 20:32 Blood Culture - Preliminary Blood NEGATIVE TO DATE 12/05/24 19:44 Blood Culture - Preliminary Blood NEGATIVE TO DATE A&P Assessment and plan (1) Sepsis: SIRS: Tachycardic, Febrile, Leukocytosis Source: Complicated UTI. Less likely because of wound infection from recent ORIF. End organ damage: Acute infectious encephalopathy Lactic acid not checked on admission. Continue with NS at 100 cc/h. Monitor blood pressures. Keep mean artery pressure 65 mmHg. Follow-up blood culture, urine culture, trend procalcitonin. Concerns for ESBL UTI given chronic indwelling Regan catheter. For now continue with IV cefepime 1 g every [address] abdomen pelvis including pelvis to rule out obstructive nephropathy, renal stones, further evaluation of recent pelvic fracture. (2) UTI (urinary tract infection): Complicated UTI in setting of chronic indwelling Regan catheter which was placed within last 1 month for pelvic surgery. Rgean catheter removed. Bladder scan and straight cath as needed. For now we will hold off on Regan catheterization. (3) Chronic indwelling Regan catheter: Regan removed. Straight cath and bladder scan as needed. Continue with home dose of Flomax. (4) Delirium due to general medical condition: Improved (5) Altered mental status: Improved. Continue with home dose of sertraline. Continue with home dose of gabapentin. (6) Poorly controlled type 2 diabetes mellitus: Check A1c. Continue with insulin sliding scale at mild dose protocol. Continue with home dose of Lantus 20 units daily. Hypoglycemia protocol. Carb consistent diet. (7) CKD (chronic kidney disease): Baseline creatinine within last 1 year seems to be 1.6-1.8. Currently 1.9. Medical reconciliation done for nephrotoxic drugs. IV fluid with NS at 100 cc/h. Monitor BMP daily. Plan Recent hip fracture: Will request documentation from outside hospital for recent ORIF. CT abdomen pelvis as above. Will request to involve pelvis for further evaluation. Wound for now is healthy without drainage. Hypertension: Goal blood pressure less than 140/90 mmHg. Currently blood pressure stable. As an outpatient takes clonidine 1 mg p.o. 3 times daily, hydralazine 100 mg 3 times daily, Cardizem 100 mg daily at home along with amlodipine 5 mg daily. For now we will switch to Cardizem 30 mg every 6 hourly. Continue with clonidine at home dose. Uptitrate as for goal blood pressure. Holding off on all other antihypertensive for now. Atrial fibrillation: Cardizem as above. Continue with home dose of anticoagulation. Full code Carb consistent diet Eliquis was sufficient for DVT prophylaxis Famotidine for PUD prophylaxis PDMP PDMP Reviewed: Not Reviewed Attestations 2 Medical Necessity Statement*: Requires further hospitalization for management of sepsis in setting of complicated UTI event chronic indwelling Regan catheter in a patient with recent history of ORIF of hip fracture, A-fib, type 2 diabetes mellitus on insulin Diagnoses Sepsis A41.9 Sepsis acute organ dysfunction status: with acute organ dysfunction Sepsis type: sepsis due to unspecified organism UTI (urinary tract infection) N39.0 Chronic indwelling Regan catheter Z97.8 Delirium due to general medical condition F05 Altered mental status R41.0 Altered mental status type: delirium Poorly controlled type 2 diabetes mellitus E11.65 CKD (chronic kidney disease) N18.9
[2024-12-06] MEDS: dilTIAZem 30 mg Tablet PO ×3 (14:01→23:18)
[2024-12-06 16:17] LABS: Glucose Point of Care 190 mg/dL (70-110)
[2024-12-06 16:26] LABS: Glucose Point of Care 185 mg/dL (70-110)
[2024-12-06] MEDS: sertraline 100 mg Tablet PO (20:07)
[2024-12-06] MEDS: ATORVASTATIN 10 MG TABLET PO (20:07)
[2024-12-06] MEDS: gabapentin 100 mg Capsule PO (20:07)
[2024-12-06 20:48] LABS: Glucose Point of Care 200 mg/dL (70-110)
[2024-12-06] MEDS: insulin glargine 100 units/1 mL 20 UNIT SUBCUT (20:57)
[2024-12-06] MEDS: calcium carbonate 500 mg Chew Tablet 1000 MG PO (21:34)
[2024-12-07] VITALS (8 sets, daily range): BP systolic 119–147; BP diastolic 52–85; PULSE 82–109; RESP 17–19; TEMP 36.6–36.8; O2SAT 94–97
[2024-12-07] MEDS: calcium carbonate 500 mg Chew Tablet 1000 MG PO (03:39)
[2024-12-07] MEDS: acetaminophen 325 mg Tablet 650 MG PO ×2 (03:41→15:12)
[2024-12-07 04:21] LABS: Basophils # 0.1 10^3/uL (0.0-0.1); Basophils % 0.5 %; Eosinophils # 0.2 10^3/uL (0.0-0.8); Eosinophils % 0.9 %; Hematocrit 34.3 % (37-53); Lymphocytes # 0.8 10^3/uL (0.8-4.8); Lymphocytes % 4.1 %; Mean Corpuscular HGB Conc 31.2 g/dL (30-55); Mean Corpuscular Hemoglobin 30.2 pg (27-33); Mean Corpuscular Volume 96.9 fl (82-101); Mean Platelet Volume 9.3 fL (7.4-10.4); Monocytes # 0.8 10^3/uL (0.2-0.9); Monocytes % 4.2 %; Neutrophils # 16.78 10^3/uL (1.8-7.7); Neutrophils % 89.6 %; Nucleated Red Blood Cells % 0 %; Platelet Count 397 10^3/cmm (157-399); Red Blood Count 3.54 10^6/uL (3.85-5.65); Red Cell Distribution Width 14.2 % (12.1-15.1); White Blood Count 18.73 10^3/uL (3.29-11.43)
[2024-12-07 04:47] LABS: Alanine Aminotransferase 6 U/L (0-41); Albumin Level 2.9 g/dL (3.5-5.2); Alkaline Phosphatase 145 U/L (40-130); Anion Gap 18.2 (5-19); Aspartate Amino Transferase 11 U/L (0-40); Blood Urea Nitrogen 22 mg/dL (8-23); Calcium 8.8 mg/dL (8.5-10.5); Carbon Dioxide 19 mmol/L (22-29); Chloride 106 mmol/L (98-107); Chol HDL Ratio 2.81 mg/dL (1.0-5.00); Cholesterol 87 mg/dL (0-200); Creatinine Clr Calc Pharmacy 43.2129; Globulin 3.4 g/dL (1.3-4.6); Glucose 138 mg/dL (65-115); HDL Cholesterol 31 mg/dL (60-100); LDL Cholesterol Calculated 37 mg/dL (50-129); Osmolality Calculated 294 mOsm/kg (285-295); Potassium 4.2 mmol/L (3.5-5.1); Sodium 139 mmol/L (136-145); Total Bilirubin 0.3 mg/dL (0.15-1.2); Total Protein 6.3 g/dL (6.6-8.7); Triglycerides 93 mg/dL (0-150); VLDL Cholestrol Calculation 19 mg/dL (0-30)
[2024-12-07 04:59] LABS: Folate Level 4.1 ng/mL (4.5-32.2)
[2024-12-07] MEDS: dilTIAZem 30 mg Tablet PO ×4 (05:21→23:14)
[2024-12-07 06:46] LABS: Glucose Point of Care 138 mg/dL (70-110)
[2024-12-07] MEDS: sodium chloride 0.9% 1,000 ML 100 ML IV (10:04)
[2024-12-07] MEDS: cloNIDine 0.1 mg Tablet PO ×3 (10:13→20:04)
[2024-12-07] MEDS: apixaban 5 mg Tablet PO ×2 (10:13→17:05)
[2024-12-07] MEDS: cyanocobalamin 1,000 mcg Tablet 250 MCG PO (10:14)
[2024-12-07] MEDS: docusate sodium 100 mg Capsule PO ×2 (10:14→17:05)
[2024-12-07] MEDS: cefepime 1,000 mg SDV 1000 MG IVP ×2 (10:14→20:03)
[2024-12-07 11:48] LABS: Glucose Point of Care 155 mg/dL (70-110)
--- NOTE | 2024-12-07 13:44 | P.PN_ITS ---
Subjective 2 Subjective: No acute events overnight. Laying comfortably in bed. Denies any nausea, vomiting, headache. Has remained afebrile. Remains on room air. Not requiring Regan catheter. Appreciate bladder scans. Vitals/I&O/Wt Last Vital Signs Temp 98.2 F 12/07/24 10:55 Pulse 82 12/07/24 10:55 Resp 18 12/07/24 10:55 BP 119/69 12/07/24 10:55 Pulse Ox 97 12/07/24 10:55 O2 Del Method Room Air 12/07/24 10:55 12/06/24 12/07/24 12/07/24 22:59 06:59 14:59 Intake Total 1161.667 / 2521.667 1360 / 1360 Output Total 550 / 750 350 / 1100 600 / 600 Balance 611.667 / 1771.667 -350 / 1421.667 760 / 760 Weight last 48 hrs Weight 84.005 kg Weight 84.958 kg Weight 83.552 kg Weight 90.718 kg Physical Exam 2 Narrative: General well-developed well-nourished male in no acute cardiopulmonary stress Neuro he is alert and oriented to person place and December 2024 but did not know the exact date. He knows that Andriy Luo is the president and that it is around [facility]. CV irregular rate is controlled Lungs clear to auscultation bilaterally Abdomen positive bowel sounds soft nontender Calves no tenderness cords pretrip edema left leg mild atrophy Motor patient is able to move all of extremities but his left side is weak compared to the right and discoordinated Extremity: Left hip and abducted position, able to straighten the leg but very slowly with pain in the hip. Open recent ORIF wound, healthy without any drainage Data 12/07/24 04:03 12/07/24 04:03 Micro: Microbiology 12/05/24 21:36 Urine Culture - Preliminary Urine Catheterized Gram Negative Rods 12/05/24 20:32 Blood Culture - Preliminary Blood NEGATIVE TO DATE 12/05/24 19:44 Blood Culture - Preliminary Blood NEGATIVE TO DATE A&P Assessment and plan (1) Sepsis: SIRS: Tachycardic, Febrile, Leukocytosis Source: Complicated UTI. Less likely because of wound infection from recent ORIF. End organ damage: Acute infectious encephalopathy Lactic acid not checked on admission. DC IV fluids. Able to maintain oral intake. Monitor blood pressures. Keep mean artery pressure 65 mmHg. Follow-up blood culture, urine culture, trend procalcitonin. Concerns for ESBL UTI given chronic indwelling Regan catheter. For now continue with IV cefepime 1 g every 12 hourly. Urine culture growing gram-negative rods. CT on pelvis negative for obstructive nephropathy. Consistent with cystitis. (2) UTI (urinary tract infection): Complicated UTI in setting of chronic indwelling Regan catheter which was placed within last 1 month for pelvic surgery. Regan catheter removed. Bladder scan and straight cath as needed. For now we will hold off on Regan catheterization. (3) Chronic indwelling Regan catheter: Regan removed. Straight cath and bladder scan as needed. Continue with home dose of Flomax. (4) Delirium due to general medical condition: Improved (5) Altered mental status: Improved. Continue with home dose of sertraline. Continue with home dose of gabapentin. (6) Poorly controlled type 2 diabetes mellitus: A1c of 6.3. Continue with insulin sliding scale at mild dose protocol. Continue with home dose of Lantus 20 units daily. Hypoglycemia protocol. Carb consistent diet. (7) CKD (chronic kidney disease): Baseline creatinine within last 1 year seems to be 1.6-1.8. Creatinine down to 1.7. Patient was tolerating oral intake. DC IV fluids. Medical reconciliation done for nephrotoxic drugs. (8) S/P ORIF (open reduction internal fixation) fracture: (9) Closed bilateral acetabular fractures: (10) Fracture of left inferior pubic ramus: Plan Recent hip fracture: Will request documentation from outside hospital for recent ORIF. CT pelvis consistent with comminuted fracture of acetabulum with extension of # planes. Fracture of the left inf pubic ramus. Wound for now is healthy without drainage. Depending on the documentation from outside hospital we will consult orthopedic surgeon versus following up as an outpatient to outside hospital orthopedic surgeon. Hypertension: Goal blood pressure less than 140/90 mmHg. Currently blood pressure stable. As an outpatient takes clonidine 1 mg p.o. 3 times daily, hydralazine 100 mg 3 times daily, Cardizem 100 mg daily at home along with amlodipine 5 mg daily. For now we will switch to Cardizem 30 mg every 6 hourly. Continue with clonidine at home dose. Uptitrate as for goal blood pressure. Holding off on all other antihypertensive for now. Atrial fibrillation: Cardizem as above. Continue with home dose of anticoagulation. Full code Carb consistent diet Eliquis was sufficient for DVT prophylaxis Famotidine for PUD prophylaxis PDMP PDMP Reviewed: Not Reviewed Attestations 2 Medical Necessity Statement*: Requires further hospitalization for management of sepsis in setting of complicated UTI in setting of chronic indwelling Regan catheter after recent pelvic surgery, recent history of ORIF of hip fracture, A-fib, type 2 diabetes mellitus on insulin Diagnoses Sepsis A41.9 Sepsis acute organ dysfunction status: with acute organ dysfunction Sepsis type: sepsis due to unspecified organism UTI (urinary tract infection) N39.0 Chronic indwelling Regan catheter Z97.8 Delirium due to general medical condition F05 Altered mental status R41.0 Altered mental status type: delirium Poorly controlled type 2 diabetes mellitus E11.65 CKD (chronic kidney disease) N18.9 S/P ORIF (open reduction internal fixation) fracture Z98.890; Z87.81 Closed bilateral acetabular fractures S32.401A; S32.402A Fracture of left inferior pubic ramus S32.592A
[2024-12-07 16:48] LABS: Glucose Point of Care 144 mg/dL (70-110)
[2024-12-07] MEDS: gabapentin 100 mg Capsule PO (20:04)
[2024-12-07] MEDS: sertraline 100 mg Tablet PO (20:04)
[2024-12-07] MEDS: ATORVASTATIN 10 MG TABLET PO (20:04)
[2024-12-07 20:40] LABS: Glucose Point of Care 220 mg/dL (70-110)
[2024-12-07] MEDS: insulin lispro 100 unit/1 mL SUBCUT (20:53)
[2024-12-07] MEDS: insulin glargine 100 units/1 mL 20 UNIT SUBCUT (20:53)
[2024-12-08] VITALS (10 sets, daily range): BP systolic 126–158; BP diastolic 66–87; PULSE 90–97; RESP 16–18; TEMP 36.2–36.7; O2SAT 95–99
[2024-12-08] MEDS: acetaminophen 325 mg Tablet 650 MG PO ×2 (01:53→16:07)
[2024-12-08 04:24] LABS: Basophils # 0.1 10^3/uL (0.0-0.1); Basophils % 0.6 %; Eosinophils # 0.3 10^3/uL (0.0-0.8); Eosinophils % 2.3 %; Hematocrit 31.1 % (37-53); Lymphocytes # 0.9 10^3/uL (0.8-4.8); Lymphocytes % 6.8 %; Mean Corpuscular HGB Conc 31.8 g/dL (30-55); Mean Corpuscular Hemoglobin 30.5 pg (27-33); Mean Corpuscular Volume 95.7 fl (82-101); Mean Platelet Volume 9.3 fL (7.4-10.4); Monocytes # 0.8 10^3/uL (0.2-0.9); Monocytes % 6.2 %; Neutrophils # 11.03 10^3/uL (1.8-7.7); Neutrophils % 83.3 %; Nucleated Red Blood Cells % 0 %; Platelet Count 435 10^3/cmm (157-399); Red Blood Count 3.25 10^6/uL (3.85-5.65); White Blood Count 13.24 10^3/uL (3.29-11.43)
[2024-12-08 04:34] LABS: Alanine Aminotransferase 6 U/L (0-41); Albumin Level 2.8 g/dL (3.5-5.2); Alkaline Phosphatase 144 U/L (40-130); Anion Gap 17.4 (5-19); Aspartate Amino Transferase 10 U/L (0-40); Blood Urea Nitrogen 19 mg/dL (8-23); Calcium 8.5 mg/dL (8.5-10.5); Carbon Dioxide 21 mmol/L (22-29); Chloride 104 mmol/L (98-107); Creatinine Clr Calc Pharmacy 48.5404; Globulin 2.5 g/dL (1.3-4.6); Glucose 160 mg/dL (65-115); Osmolality Calculated 292 mOsm/kg (285-295); Potassium 4.4 mmol/L (3.5-5.1); Sodium 138 mmol/L (136-145); Total Bilirubin 0.2 mg/dL (0.15-1.2); Total Protein 5.3 g/dL (6.6-8.7)
[2024-12-08] MEDS: dilTIAZem 30 mg Tablet PO ×3 (05:15→17:49)
[2024-12-08 06:26] LABS: Glucose Point of Care 136 mg/dL (70-110)
[2024-12-08] MEDS: TRAMadol 50 mg Tablet PO (07:48)
[2024-12-08] MEDS: cyanocobalamin 1,000 mcg Tablet 250 MCG PO (08:33)
[2024-12-08] MEDS: docusate sodium 100 mg Capsule PO ×2 (08:33→17:49)
[2024-12-08] MEDS: apixaban 5 mg Tablet PO ×2 (08:33→17:49)
[2024-12-08] MEDS: cloNIDine 0.1 mg Tablet PO ×3 (08:33→21:56)
[2024-12-08] MEDS: cefepime 1,000 mg SDV 1000 MG IVP ×2 (08:34→21:56)
--- NOTE | 2024-12-08 10:15 | PC.SOCIAL ---
IMM Update pg 2 of IMM updated and reviewed w/ patient. Copy provided and copy dated, initialed and placed in chart.
[2024-12-08 10:29] LABS: Glucose Point of Care 159 mg/dL (70-110)
--- NOTE | 2024-12-08 11:19 | P.PN_ITS ---
Subjective 2 Subjective: 74-year-old male with chronic indwelling Regan catheter presents with altered mental status from group home. Mental status better. Afebrile. Tolerating antibiotics. Records from orthopedics has been requested. Vitals/I&O/Wt Last Vital Signs Temp 97.2 F L 12/08/24 07:57 Pulse 96 12/08/24 07:57 Resp 16 12/08/24 07:57 BP 158/78 12/08/24 08:33 Pulse Ox 95 12/08/24 07:57 O2 Del Method Room Air 12/08/24 07:57 12/07/24 12/08/24 12/08/24 22:59 06:59 14:59 Intake Total 60 / 1855 120 / 120 Output Total 1200 / 1800 500 / 2300 100 / 100 Balance -1140 / 55 -500 / -445 20 / 20 Weight last 48 hrs Weight 183 lb 8 oz Weight 185 lb 3.2 oz Physical Exam 2 Narrative: General well-developed well-nourished male in no acute cardiopulmonary stress Neuro he is alert and oriented to person place and December 2024 but did not know the exact date. He knows that Andriy Luo is the president and that it is around [facility]. CV irregular rate is controlled Lungs clear to auscultation bilaterally Abdomen positive bowel sounds soft nontender Calves no tenderness cords pretrip edema left leg mild atrophy Motor patient is able to move all of extremities but his left side is weak compared to the right and discoordinated Extremity: Left hip and abducted position, able to straighten the leg but very slowly with pain in the hip. Data 12/08/24 03:13 12/08/24 03:13 Micro: Microbiology 12/05/24 21:36 Urine Culture - Final Urine Catheterized Pseudomonas aeruginosa A&P Assessment and plan (1) S/P ORIF (open reduction internal fixation) fracture: (2) Fracture of left inferior pubic ramus: (3) UTI (urinary tract infection): (4) Chronic indwelling Regan catheter: (5) CKD (chronic kidney disease): (6) Poorly controlled type 2 diabetes mellitus: Plan (1) Sepsis: Patient received antibiotics and fluids and now his blood pressure is improved. Treated for possible ESBL due to chronic indwelling Regan (2) UTI (urinary tract infection): Regan replaced, pseudomonas aeruginosa (3) Chronic indwelling Regan catheter: (4) Delirium due to general medical condition: Improved (5) Altered mental status: Improved (6) Poorly controlled type 2 diabetes mellitus: Lantus and sliding scale insulin. Discontinue metformin due to chronic kidney disease (7) CKD (chronic kidney disease): Patient is no longer candidate for metformin due to risk of lactic acidosis in the CKD 8) hip pain--awaiting records, consult, and likely Orthopedics PDMP PDMP Reviewed: Not Reviewed Attestations 2 Medical Necessity Statement*: antibiotics for UTI Coding Level of Care Code Acute Code for Chg Fwd Diagnoses S/P ORIF (open reduction internal fixation) fracture Z98.890; Z87.81 Fracture of left inferior pubic ramus S32.592A UTI (urinary tract infection) N39.0 Chronic indwelling Regan catheter Z97.8 CKD (chronic kidney disease) N18.9 Poorly controlled type 2 diabetes mellitus E11.65
[2024-12-08 16:33] LABS: Glucose Point of Care 151 mg/dL (70-110)
[2024-12-08 20:59] LABS: Glucose Point of Care 210 mg/dL (70-110)
[2024-12-08] MEDS: ATORVASTATIN 10 MG TABLET PO (21:56)
[2024-12-08] MEDS: insulin lispro 100 unit/1 mL SUBCUT (21:56)
[2024-12-08] MEDS: gabapentin 100 mg Capsule PO (21:56)
[2024-12-08] MEDS: sertraline 100 mg Tablet PO (21:56)
[2024-12-08] MEDS: insulin glargine 100 units/1 mL 20 UNIT SUBCUT (21:57)
[2024-12-09] VITALS (8 sets, daily range): BP systolic 128–147; BP diastolic 72–91; PULSE 72–83; RESP 16–18; TEMP 36.4–37.1; O2SAT 94–99
[2024-12-09] MEDS: TRAMadol 50 mg Tablet PO ×2 (00:55→08:47)
[2024-12-09] MEDS: dilTIAZem 30 mg Tablet PO ×3 (00:56→12:23)
[2024-12-09] MEDS: lactulose oral liq 20 gm/30 mL UDC 10 GM PO (05:58)
[2024-12-09 06:46] LABS: Glucose Point of Care 108 mg/dL (70-110)
[2024-12-09] MEDS: cloNIDine 0.1 mg Tablet PO ×2 (08:35→14:42)
[2024-12-09] MEDS: docusate sodium 100 mg Capsule PO (08:35)
[2024-12-09] MEDS: apixaban 5 mg Tablet PO (08:35)
[2024-12-09] MEDS: cyanocobalamin 1,000 mcg Tablet 250 MCG PO (08:35)
[2024-12-09] MEDS: cefepime 1,000 mg SDV 1000 MG IVP (08:36)
[2024-12-09 10:39] LABS: Glucose Point of Care 167 mg/dL (70-110)
--- NOTE | 2024-12-09 13:28 | P.DS_ITS ---
Discharge Providers Date of Admission: 12/05/24 23:00 Date of Discharge: December 09, 2024 Attending Provider at Admission: Jamarcus Mason MD Attending Provider at Discharge: Amarilis Humphrey MD Diagnoses at Discharge Discharge Diagnosis (1) S/P ORIF (open reduction internal fixation) fracture: Status: Acute (2) Fracture of left inferior pubic ramus: Status: Acute (3) UTI (urinary tract infection): Status: Acute (4) Chronic indwelling Regan catheter: Status: Acute (5) CKD (chronic kidney disease): Status: Chronic Permanent problem details: Baseline creatinine 1.9 (6) Poorly controlled type 2 diabetes mellitus: Status: Acute Reason for Visit Reason for Visit: Altered Mental Status Hospital Course Hospital Course Luis Mcintosh is a 74 year old male comes from [facility] facility with altered mental status noted by his daughter and his brother. He has chronic indwelling Regan. Patient states he has no trouble peeing but is told that he retains urine. Patient was found to have white count 39,000, C-reactive protein 300 and urinary tract infection with white count and urine greater than 100. Patient states he had a stroke years ago and balance is poor so he is in a nursing facility. He has history of hypertension, tobacco abuse and diabetes. He also has atrial fibrillation on warfarin and a chronic Regan for retention. He denies that he has a urologist or history of prostate surgery. Patient states he quit tobacco around the time of his stroke which he thinks was 2010. Alcohol is quit similar time no drugs. 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 He wants full code and his next of kin is Michael Mcintosh his brother who is 69 years old plan: (1) Sepsis: Patient received antibiotics and fluids and now his blood pressure is improved. Treated for possible ESBL due to chronic indwelling Regan. Culture showed Pseudomonas. Antibiotics were changed to fluoroquinolones (2) UTI (urinary tract infection): Regan replaced, pseudomonas aeruginosa. Discharged with fluoroquinolone (3) Chronic indwelling Regan catheter: (4) Delirium due to general medical condition: Improved (5) Altered mental status: Improved (6) Poorly controlled type 2 diabetes mellitus: Lantus and sliding scale insulin. Discontinue metformin due to chronic kidney disease (7) CKD (chronic kidney disease): Patient is no longer candidate for metformin due to risk of lactic acidosis in the CKD 8) hip pain--we attempted multiple times to get records from [facility]. They denied request. Stating they needed from patient directly not the DPOA. Unclear why. Nevertheless he was stable. We recommend him to follow-up with orthopedics at [facility]. Physical Exam Narrative: General well-developed well-nourished male in no acute cardiopulmonary stress Neuro he is alert and oriented to person place and December 2024 but did not know the exact date. He knows that Andriy Luo is the president and that it is around [facility]. CV irregular rate is controlled Lungs clear to auscultation bilaterally Abdomen positive bowel sounds soft nontender Calves no tenderness cords pretrip edema left leg mild atrophy Motor patient is able to move all of extremities but his left side is weak compared to the right and discoordinated Extremity: Left hip and abducted position, able to straighten the leg but very slowly with pain in the hip. Discharge Data Studies Completed and Pending Completed Studies During Hospitalization Category Date Time Status CT abdomen pelvis wo con [id number] Routine Cat Scan 12/06/24 12:32 Completed XR chest 1V portable [id number] Stat Exams 12/05/24 20:27 Completed Pending at discharge Category Date Time Status Bacterial Antigen Stat Lab 12/06/24 12:11 Ordered Blood Culture Stat Lab 12/05/24 20:32 Results Radiology Impressions Chest X-Ray 12/05/24 20:27 IMPRESSION: No focal consolidation. Abdomen/Pelvis CT 12/06/24 12:32 IMPRESSION: 1. Comminuted fracture of the acetabulum with extension of the fracture planes into the anterior, medial and posterior wall and roof of the acetabulum status post ORIF with malleable plate and multiple cortical screws in place.. Fracture of the left inferior pubic ramus 2. Locules of air in the bladder with mild pericystic fat stranding which can be seen the setting of cystitis. Correlate with UA. COMMENTS: Consistent with the [employer]'s Incidental Findings Committee white paper (J Am Natali Radiol 2018): Any incidental renal lesion less than 1 cm or classified as too small to characterize, or any incidental cystic renal lesion characterized as simple-appearing, is likely benign. No follow-up imaging is recommended for these lesions per consensus recommendations based on imaging criteria. Laboratory Results WBC 13.24 10^3/uL (3.29-11.43) H 12/08/24 03:13 RBC 3.25 10^6/uL (3.85-5.65) L 12/08/24 03:13 Hgb 9.90 g/dL (11.27-16.99) L 12/08/24 03:13 Hct 31.1 % (37-53) L 12/08/24 03:13 MCV 95.7 fl (82-101) 12/08/24 03:13 MCH 30.5 pg (27-33) 12/08/24 03:13 MCHC 31.8 g/dL (30-55) 12/08/24 03:13 RDW 14.0 % (12.1-15.1) 12/08/24 03:13 Plt Count 435 10^3/cmm (157-399) H 12/08/24 03:13 MPV 9.3 fL (7.4-10.4) 12/08/24 03:13 Neut % (Auto) 83.3 % 12/08/24 03:13 Lymph % (Auto) 6.8 % 12/08/24 03:13 [place] % (Auto) 6.2 % 12/08/24 03:13 Eos % (Auto) 2.3 % 12/08/24 03:13 Baso % (Auto) 0.6 % 12/08/24 03:13 Neut # (Auto) 11.03 10^3/uL (1.8-7.7) H 12/08/24 03:13 Lymph # (Auto) 0.9 10^3/uL (0.8-4.8) 12/08/24 03:13 [place] # (Auto) 0.8 10^3/uL (0.2-0.9) 12/08/24 03:13 Eos # (Auto) 0.3 10^3/uL (0.0-0.8) 12/08/24 03:13 Baso # (Auto) 0.1 10^3/uL (0.0-0.1) 12/08/24 03:13 Nucleated RBC % (auto) 0 % 12/08/24 03:13 Nucleated RBCs # 0.0 /100WBC 12/08/24 03:13 Sodium 138 mmol/L (136-145) 12/08/24 03:13 Potassium 4.4 mmol/L (3.5-5.1) 12/08/24 03:13 Chloride 104 mmol/L (98-107) 12/08/24 03:13 Carbon Dioxide 21 mmol/L (22-29) L 12/08/24 03:13 Anion Gap 17.4 (5-19) 12/08/24 03:13 BUN 19 mg/dL (8-23) 12/08/24 03:13 Creatinine 1.5 mg/dL (0.7-1.2) H 12/08/24 03:13 GFR Calculation Not Reportable 12/08/24 03:13 Glucose 160 mg/dL (65-115) H 12/08/24 03:13 POC Glucose 167 mg/dL (70-110) H 12/09/24 10:28 Estimat Average Glucose 134 12/06/24 03:30 Hemoglobin A1c 6.3 % (4.0-6.0) H 12/06/24 03:30 Calculated Osmolality 292 mOsm/kg (285-295) 12/08/24 03:13 Lactic Acid 1.4 mmol/L (0.5-2.2) 12/05/24 20:32 Calcium 8.5 mg/dL (8.5-10.5) 12/08/24 03:13 Magnesium 2.0 mg/dL (1.7-2.3) 12/09/24 05:18 Iron 14 ug/dL (59-158) L 12/06/24 03:30 TIBC 168 mcg/dl 12/06/24 03:30 % Saturation 8.3 % (20-50) L 12/06/24 03:30 Unsat Iron Binding 154 ug/dL (112-347) 12/06/24 03:30 Total Bilirubin 0.2 mg/dL (0.15-1.2) 12/08/24 03:13 AST 10 U/L (0-40) 12/08/24 03:13 ALT 6 U/L (0-41) 12/08/24 03:13 Alkaline Phosphatase 144 U/L (40-130) H 12/08/24 03:13 Ammonia 30 umol/L (16-60) 12/05/24 19:44 C-Reactive Protein 304.4 mg/L (0.0-4.9) H 12/05/24 19:44 Total Protein 5.3 g/dL (6.6-8.7) L 12/08/24 03:13 Albumin 2.8 g/dL (3.5-5.2) L 12/08/24 03:13 Globulin 2.5 g/dL (1.3-4.6) 12/08/24 03:13 Triglycerides 93 mg/dL (0-150) 12/07/24 04:03 Cholesterol 87 mg/dL (0-200) 12/07/24 04:03 LDL Cholesterol, Calc 37 mg/dL (50-129) L 12/07/24 04:03 Total VLDL Cholesterol 19 mg/dL (0-30) 12/07/24 04:03 HDL Cholesterol 31 mg/dL (60-100) L 12/07/24 04:03 Cholesterol/HDL Ratio 2.81 mg/dL (1.0-5.00) 12/07/24 04:03 Vitamin B12 619 pg/mL (232-1245) 12/06/24 03:30 Folate 4.1 ng/mL (4.5-32.2) L 12/07/24 04:03 Procalcitonin 0.33 ng/mL (0-0.5) 12/06/24 03:30 TSH 2.11 uIU/mL (0.27-4.20) 12/06/24 03:30 Urine Color Yellow (Yellow) 12/05/24 21:36 Urine Appearance Cloudy (CLEAR) A 12/05/24 21:36 Urine pH 5 (5-7) 12/05/24 21:36 Ur Specific [place] 1.015 (1.005-1.030) 12/05/24 21:36 Urine Protein 1+ (Negative) H 12/05/24 21:36 Urine Glucose (UA) 4+ (Normal) H 12/05/24 21:36 Urine Ketones Negative (Negative) 12/05/24 21:36 Urine Blood 3+ (Negative) H 12/05/24 21:36 Urine Nitrate Negative (Negative) 12/05/24 21:36 Urine Bilirubin Neg (Negative) 12/05/24 21:36 Urine Urobilinogen Neg mg/dL (Negative) 12/05/24 21:36 Ur Leukocyte Esterase 2+ (Negative) H 12/05/24 21:36 Urine RBC 21-50 /hpf (0-2) H 12/05/24 21:36 Urine WBC 51-100 /hpf (0-5) H 12/05/24 21:36 Ur Squamous Epith Cells 0-5 /hpf (0-5) 12/05/24 21:36 Amorphous Sediment Not Reportable 12/05/24 21:36 Urine Bacteria 4+ /hpf (NONE) H 12/05/24 21:36 Hyaline Casts 26.04 /lpf 12/05/24 21:36 Urine Opiates Screen Negative ng/mL (Negative) 12/05/24 21:36 Ur Barbiturates Screen Negative ng/mL (Negative) 12/05/24 21:36 Ur Phencyclidine Scrn Negative ng/mL (Negative) 12/05/24 21:36 Ur Amphetamines Screen Negative ng/mL (Negative) 12/05/24 21:36 U Benzodiazepines Scrn Negative ng/mL (Negative) 12/05/24 21:36 Urine Cocaine Screen Negative ng/mL (Negative) 12/05/24 21:36 U Marijuana (THC) Screen Negative ng/mL (Negative) 12/05/24 21:36 Vitals Last Vital Signs Temp 98.8 F 12/09/24 12:00 Pulse 78 12/09/24 12:00 Resp 18 12/09/24 12:00 BP 128/72 12/09/24 12:00 Pulse Ox 94 12/09/24 12:00 O2 Del Method Room Air 12/09/24 12:00 Discharge Plan Discharge Patient Disposition: Xfer SNF Condition: Stable Prescriptions: New furosemide [Lasix] 20 mg tablet 20 mg PO DAILY Qty: 30 0RF levofloxacin 750 mg tablet 750 mg PO DAILY 4 Days Qty: 4 0RF Continued lisinopril 20 mg tablet 20 mg PO BID tamsulosin 0.4 mg capsule 0.4 mg PO BEDTIME tramadol 50 mg tablet 50 mg PO Q6H PRN (Reason: Pain) bisacodyl 10 mg Suppository 10 mg ND DAILY PRN (Reason: Constipation) metformin 1,000 mg tablet 1,000 mg PO BID bisacodyl 5 mg Tablet,Delayed Release (Dr/Ec) 10 mg PO DAILY PRN (Reason: Constipation) gabapentin 100 mg Capsule 100 mg PO BEDTIME insulin glargine [Lantus Solostar U-100 Insulin] 100 unit/mL (3 mL) insulin pen 20 unit SUBCUT BEDTIME acetaminophen 325 mg Tablet 650 mg PO Q6H PRN (Reason: PAIN OR FEVER) atorvastatin 10 mg tablet 10 mg PO BEDTIME Eliquis 5 mg tablet 5 mg PO BID Ocuvite Eye Health 50 mg-15 unit- 4.5 mg-2.5 mg Tablet,Chewable 1 tab PO BEDTIME cyanocobalamin (vitamin B-12) 500 mcg Tablet 250 mcg PO DAILY loratadine 10 mg tablet 10 mg PO DAILY insulin aspart U-100 [Novolog FlexPen U-100 Insulin] 100 unit/mL (3 mL) insulin pen See Rx Instructions .ROUTE .COMPLEX Rx Instructions: PER SLIDING SCALE: BS 150-200= 0 UNITS, 201-250= 2 UNITS, 251-300= 4 UNITS, 301-350= 6 UNITS, 351-400= 8 UNITS. BS GREATER THAN 400 GIVE 8 UNITS. CALL PCP IF BS <60 AMD >400 IF SYMPTOMATIC X 3 READINGS. diltiazem HCl 180 mg capsule,extended release 24hr 180 mg PO DAILY amlodipine 5 mg tablet 5 mg PO DAILY clonidine HCl 0.1 mg tablet 0.1 mg PO TID potassium chloride 10 mEq tablet extended release 10 meq PO DAILY Jardiance 10 mg tablet 10 mg PO DAILY sertraline 100 mg tablet 100 mg PO BEDTIME Trulicity 0.75 mg/0.5 mL pen injector See Rx Instructions .ROUTE .COMPLEX Rx Instructions: inject 0.5ml subcutaneously once a day on Sunday . ondansetron 4 mg tablet,disintegrating 4 mg PO Q6H PRN (Reason: nausea and vomiting) Qty: 14 0RF Discontinued hydralazine 100 mg tablet 100 mg PO TID furosemide 40 mg tablet 40 mg PO DAILY Discharge Orders: Discharge Order (Routine); Ordered 12/09/24 Ordered By: Amarilis Humphrey Referrals: [facility] [Outside] [facility] [Outside] Discharge Diet: Diabetic Discharge Activity: Increase activity as tolerated Patient Instructions: Furosemide (By mouth), Levofloxacin (By mouth) (Levaquin, Levaquin Leva-geovanni), Altered Mental Status (ED), Opioid Safety Discharge Attestations Time Spent in Discharge Care*: less than 30 min Status at Discharge: Cognitive status at discharge: cognitively intact , Behavioral status at discharge: cooperative , Quality Metrics Clinical Quality Measures [ No reported AMI, CVA or VTE this stay] Coding Level of Care Code 53116 Diagnoses S/P ORIF (open reduction internal fixation) fracture Z98.890; Z87.81 Fracture of left inferior pubic ramus S32.592A UTI (urinary tract infection) N39.0 Chronic indwelling Regan catheter Z97.8 CKD (chronic kidney disease) N18.9 Poorly controlled type 2 diabetes mellitus E11.65 Time Spent (min) 30
[2024-12-09 16:32] LABS: Glucose Point of Care 195 mg/dL (70-110)
== END 2024-12-09 17:04 | disposition intermediate care facility (04) | DRG 698 ==
LOC: ER 23:07 → MEDSURG 23:14
PROVIDERS: Student in an Organized Health Care Education/Training Program; Admitting Provider Internal Medicine; Emergency Provider Family Medicine; Visit Provider Internal Medicine
DX: T83.511A Infection and inflammatory reaction due to indwelling urethral catheter, initial encounter (principal); A41.9 Sepsis, unspecified organism; F05 Delirium due to known physiological condition; G93.40 Encephalopathy, unspecified; S32.592D Other specified fracture of left pubis, subsequent encounter for fracture with routine healing; X58.XXXD Exposure to other specified factors, subsequent encounter; Y84.6 Urinary catheterization as the cause of abnormal reaction of the patient, or of later complication, without mention of misadventure at the time of the procedure; B96.5 Pseudomonas (aeruginosa) (mallei) (pseudomallei) as the cause of diseases classified elsewhere; E11.42 Type 2 diabetes mellitus with diabetic polyneuropathy; E11.22 Type 2 diabetes mellitus with diabetic chronic kidney disease; I12.9 Hypertensive chronic kidney disease with stage 1 through stage 4 chronic kidney disease, or unspecified chronic kidney disease; N18.9 Chronic kidney disease, unspecified; Z87.891 Personal history of nicotine dependence; Z79.85 Long-term (current) use of injectable non-insulin antidiabetic drugs; Z79.4 Long term (current) use of insulin; Z79.84 Long term (current) use of oral hypoglycemic drugs; I48.91 Unspecified atrial fibrillation; R33.9 Retention of urine, unspecified; I25.10 Atherosclerotic heart disease of native coronary artery without angina pectoris; Z79.01 Long term (current) use of anticoagulants; I69.998 Other sequelae following unspecified cerebrovascular disease; Z86.718 Personal history of other venous thrombosis and embolism
CPT/HCPCS: 36415; 36416; 51798; 71045; 74176; 80048; 80053; 80061; 80306; 81003; 82140; 82607; 82746; 82962; 83036; 83540; 83550; 83605; 83735; 84145; 84443; 85025; 86140; 87040; 87077; 87086; 87186; 96372; 96374; 97162; 97167; 97530; 99285; J0692; J1815; J1885; J7030; J9999

== ENCOUNTER 2024-12-21 10:51 | Emergency (ER) | payer MEDICARE, MEDICAID, SELFPAY ==
[2024-12-21 10:55] VITALS: BP 117/82; PULSE 93; RESP 16; TEMP 36.7; O2SAT 98; BMI 31.5
[2024-12-21 11:22] LABS: Basophils # 0.1 10^3/uL (0.0-0.1); Basophils % 0.7 %; Eosinophils # 0.2 10^3/uL (0.0-0.8); Eosinophils % 2.2 %; Hematocrit 42.7 % (37-53); Lymphocytes # 1.1 10^3/uL (0.8-4.8); Lymphocytes % 9.6 %; Mean Corpuscular HGB Conc 31.1 g/dL (30-55); Mean Corpuscular Hemoglobin 30.6 pg (27-33); Mean Corpuscular Volume 98.4 fl (82-101); Mean Platelet Volume 9.6 fL (7.4-10.4); Monocytes # 0.7 10^3/uL (0.2-0.9); Monocytes % 6.3 %; Neutrophils # 8.83 10^3/uL (1.8-7.7); Neutrophils % 80.7 %; Nucleated Red Blood Cells % 0 %; Platelet Count 304 10^3/cmm (157-399); Red Blood Count 4.34 10^6/uL (3.85-5.65); Red Cell Distribution Width 15.1 % (12.1-15.1); White Blood Count 10.95 10^3/uL (3.29-11.43)
--- NOTE | 2024-12-21 11:22 | W.ED.AMS ---
HPI - Altered Mental Status General: Chief Complaint: Altered Mental Status Stated Complaint: uti; ams Time Seen by Provider: 12/21/24 10:51 Source: patient and EMS Limitations: no limitations History of Present Illness: 74-year-old male who was sent here from senior care they are concerned with altered mental status and possible sepsis he is currently on antibiotics for UTI patient here is awake answering all my questions appropriately he is ANO x 4 he is afebrile he states he does not know why he is sent here and he feels good. Related Data Home Medications ?Medication ?Instructions ?Recorded ?Confirmed lisinopril 20 mg tablet 20 mg PO BID 04/04/20 12/06/24 tamsulosin 0.4 mg capsule 0.4 mg PO BEDTIME 04/04/20 12/06/24 bisacodyl 10 mg rectal suppository 10 mg OH DAILY PRN Constipation 02/12/22 12/06/24 bisacodyl 5 mg tablet,delayed 10 mg PO DAILY PRN Constipation 02/12/22 12/06/24 release gabapentin 100 mg capsule 100 mg PO BEDTIME 02/12/22 12/06/24 insulin glargine 100 unit/mL (3 20 unit SUBCUT BEDTIME 02/12/22 12/06/24 mL) subcutaneous pen (Lantus Solostar U-100 Insulin) metformin 1,000 mg tablet 1,000 mg PO BID 02/12/22 12/06/24 tramadol 50 mg tablet 50 mg PO Q6H PRN Pain 02/12/22 12/06/24 acetaminophen 325 mg tablet 650 mg PO Q6H PRN PAIN OR FEVER 07/08/23 12/06/24 apixaban 5 mg tablet (Eliquis) 5 mg PO BID 07/08/23 12/06/24 atorvastatin 10 mg tablet 10 mg PO BEDTIME 07/08/23 12/06/24 vit C 50 mg-E 15 unit-zinc cit 4.5 1 tab PO BEDTIME 07/08/23 12/06/24 mg-lutein 2.5 mg-zeaxan chew tablet ([facility] [place]) cyanocobalamin (vitamin B-12) 500 250 mcg PO DAILY 01/24/24 12/06/24 mcg tablet insulin aspart U-100 100 unit/mL See Rx Instructions .Route .COMPLEX 01/24/24 12/06/24 (3 mL) subcutaneous pen (Novolog FlexPen U-100 Insulin aspart) loratadine 10 mg tablet 10 mg PO DAILY 01/24/24 12/06/24 amlodipine 5 mg tablet 5 mg PO DAILY 11/18/24 12/06/24 clonidine HCl 0.1 mg tablet 0.1 mg PO TID 11/18/24 12/06/24 diltiazem HCl 180 mg 180 mg PO DAILY 11/18/24 12/06/24 capsule,extended release 24 hr dulaglutide 0.75 mg/0.5 mL See Rx Instructions .Route .COMPLEX 11/18/24 12/06/24 subcutaneous pen injector (Trulicity) empagliflozin 10 mg tablet 10 mg PO DAILY 11/18/24 12/06/24 (Jardiance) potassium chloride 10 mEq 10 meq PO DAILY 11/18/24 12/06/24 tablet,extended release sertraline 100 mg tablet 100 mg PO BEDTIME 11/18/24 12/06/24 Previous Rx's ?Medication ?Instructions ?Recorded ondansetron 4 mg disintegrating 4 mg PO Q6H PRN nausea and 11/24/24 tablet vomiting #14 tabs furosemide 20 mg tablet (Lasix) 20 mg PO DAILY #30 tabs 12/09/24 Allergies Allergy/AdvReac Type Severity Reaction Status Date / Time Penicillins Allergy ALGY-Rash Verified 12/21/24 11:05 Review of Systems Const: Denies: fever(s), chills, body aches or change in appetite ENMT: Denies: throat pain or dental pain Card: Denies: chest pain Resp: Denies: dyspnea GI: Denies: abdominal pain, nausea, vomiting or diarrhea Musc: Denies: neck pain or back pain Skin/Breast: Denies: rash Neuro: Denies: headache(s) PFSH ED PFSH: Medical History Chronic indwelling Regan catheter Atrial fibrillation with rapid ventricular response Peripheral neuropathy CAD (coronary artery disease) Depression Chronic anticoagulation CVA (cerebral vascular accident) 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 CKD (chronic kidney disease) Baseline creatinine 1.9 Poorly controlled type 2 diabetes mellitus Dyslipidemia DVT (deep venous thrombosis) HTN (hypertension) Polycythemia Atrial fibrillation Surgical History S/P ORIF (open reduction internal fixation) fracture No pertinent past surgical history Family History Other CAD (coronary artery disease) Cancer Social History Smoking and tobacco/nicotine status: former use of tobacco/nicotine Quit status (tobacco/nicotine): has quit using Year quit tobacco: 2010 Former quit date comment: Due to stroke Alcohol intake: former Year of sobriety/quit date alcohol: 2010 Former alcohol use details: Never heavy drinker Substance/Drug Use: never Additional social history: Next of kin is his brother Michael Mcintosh who is 69 years old patient wants full CODE STATUS Caregiver/support person: No Household members: none Housing: House 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 [employer] Physical Exam Const: COMMON NORMALS: no acute distress, patient oriented x3 and healthy appearing HENMT: COMMON NORMALS: normocephalic and atraumatic HEAD & SCALP: normocephalic and atraumatic Eye: COMMON NORMALS: Equal, round and reactive pupils present and EOMs intact bilaterally PUPIL: Yes Equal, round and reactive pupils present Neck/C-Spine: COMMON NORMALS: full ROM and supple Chest: COMMONS NORMALS: normal inspection of the chest and normal palpation of entire chest wall Resp: COMMON NORMALS: normal respiratory effort, No retractions, No use of accessory muscles and clear to auscultation bilaterally AUSCULTATION: clear to auscultation bilaterally Cardio: COMMON NORMALS: regular rate, regular rhythm and No murmurs present (Cardio) RATE: regular rate RHYTHM: regular rhythm GI: COMMON NORMALS: Normal to inspection, nondistended, normoactive bowel sounds present, Soft to palpation, non-tender and no masses PALPATION: Yes Soft to palpation Extremity: COMMON NORMALS: normal to inspection and full ROM Neuro: COMMON NORMALS: patient oriented x3, moves all extremities and no focal motor deficits Psych: COMMON NORMALS: mental status grossly normal, Normal thought process present and cooperative THOUGHT PROCESS: Normal thought process present Skin: COMMON NORMALS: no rashes or lesions noted and no wounds GENERAL SKIN EXAM: no rashes or lesions noted Course Vital Signs: Vital signs: Vital Signs Temperature 98.1 F 12/21/24 10:55 Pulse Rate 93 12/21/24 10:55 Respiratory Rate 16 12/21/24 10:55 Blood Pressure 117/82 12/21/24 10:55 Pulse Oximetry 98 12/21/24 10:55 MDM - Altered Mental Status Medical Decision Making Patient presents here with suppose confusion senior care he is well-appearing here answering all appropriate questions no signs of sepsis white count is normal he stable for discharge back to senior care. Medical Records I reviewed the patient's medical records. Lab Data I reviewed the patient's lab results. 12/21/24 11:07 12/21/24 11:07 Laboratory Results WBC 10.95 10^3/uL (3.29-11.43) 12/21/24 11:07 RBC 4.34 10^6/uL (3.85-5.65) 12/21/24 11:07 Hgb 13.30 g/dL (11.27-16.99) 12/21/24 11:07 Hct 42.7 % (37-53) 12/21/24 11:07 MCV 98.4 fl (82-101) 12/21/24 11:07 MCH 30.6 pg (27-33) 12/21/24 11:07 MCHC 31.1 g/dL (30-55) 12/21/24 11:07 RDW 15.1 % (12.1-15.1) 12/21/24 11:07 Plt Count 304 10^3/cmm (157-399) 12/21/24 11:07 MPV 9.6 fL (7.4-10.4) 12/21/24 11:07 Neut % (Auto) 80.7 % 12/21/24 11:07 Lymph % (Auto) 9.6 % 12/21/24 11:07 [place] % (Auto) 6.3 % 12/21/24 11:07 Eos % (Auto) 2.2 % 12/21/24 11:07 Baso % (Auto) 0.7 % 12/21/24 11:07 Neut # (Auto) 8.83 10^3/uL (1.8-7.7) H 12/21/24 11:07 Lymph # (Auto) 1.1 10^3/uL (0.8-4.8) 12/21/24 11:07 [place] # (Auto) 0.7 10^3/uL (0.2-0.9) 12/21/24 11:07 Eos # (Auto) 0.2 10^3/uL (0.0-0.8) 12/21/24 11:07 Baso # (Auto) 0.1 10^3/uL (0.0-0.1) 12/21/24 11:07 Nucleated RBC % (auto) 0 % 12/21/24 11:07 Nucleated RBCs # 0.0 /100WBC 12/21/24 11:07 Sodium 139 mmol/L (136-145) 12/21/24 11:07 Potassium 4.9 mmol/L (3.5-5.1) 12/21/24 11:07 Chloride 100 mmol/L (98-107) 12/21/24 11:07 Carbon Dioxide 26 mmol/L (22-29) 12/21/24 11:07 Anion Gap 17.9 (5-19) 12/21/24 11:07 BUN 26 mg/dL (8-23) H 12/21/24 11:07 Creatinine 1.6 mg/dL (0.7-1.2) H 12/21/24 11:07 GFR Calculation Not Reportable 12/21/24 11:07 Glucose 164 mg/dL (65-115) H 12/21/24 11:07 Calculated Osmolality 296 mOsm/kg (285-295) H 12/21/24 11:07 Calcium 9.3 mg/dL (8.5-10.5) 12/21/24 11:07 Total Bilirubin 0.4 mg/dL (0.15-1.2) 12/21/24 11:07 AST 14 U/L (0-40) 12/21/24 11:07 ALT 9 U/L (0-41) 12/21/24 11:07 Alkaline Phosphatase 162 U/L (40-130) H 12/21/24 11:07 Total Protein 7.2 g/dL (6.6-8.7) 12/21/24 11:07 Albumin 3.6 g/dL (3.5-5.2) 12/21/24 11:07 Globulin 3.6 g/dL (1.3-4.6) 12/21/24 11:07 No radiology studies performed this visit EKG Data EKG 6: I personally reviewed and interpreted this EKG as follows: EKG interpretation date: 12/21/24 EKG interpretation time: 11:34 Interpretation: afib hr [address] elevation qrs 93 qtc 382 Discharge Plan Discharge Patient Disposition: Home Clinical Impression: CKD (chronic kidney disease) Condition: Stable Prescriptions: No Action lisinopril 20 mg tablet 20 mg PO BID tamsulosin 0.4 mg capsule 0.4 mg PO BEDTIME furosemide [Lasix] 20 mg tablet 20 mg PO DAILY Qty: 30 0RF tramadol 50 mg tablet 50 mg PO Q6H PRN (Reason: Pain) bisacodyl 10 mg Suppository 10 mg OH DAILY PRN (Reason: Constipation) metformin 1,000 mg tablet 1,000 mg PO BID bisacodyl 5 mg Tablet,Delayed Release (Dr/Ec) 10 mg PO DAILY PRN (Reason: Constipation) gabapentin 100 mg Capsule 100 mg PO BEDTIME insulin glargine [Lantus Solostar U-100 Insulin] 100 unit/mL (3 mL) insulin pen 20 unit SUBCUT BEDTIME acetaminophen 325 mg Tablet 650 mg PO Q6H PRN (Reason: PAIN OR FEVER) atorvastatin 10 mg tablet 10 mg PO BEDTIME Eliquis 5 mg tablet 5 mg PO BID Ocuvite [facility] 50 mg-15 unit- 4.5 mg-2.5 mg Tablet,Chewable 1 tab PO BEDTIME cyanocobalamin (vitamin B-12) 500 mcg Tablet 250 mcg PO DAILY loratadine 10 mg tablet 10 mg PO DAILY insulin aspart U-100 [Novolog FlexPen U-100 Insulin] 100 unit/mL (3 mL) insulin pen See Rx Instructions .ROUTE .COMPLEX Rx Instructions: PER SLIDING SCALE: BS 150-200= 0 UNITS, 201-250= 2 UNITS, 251-300= 4 UNITS, 301-350= 6 UNITS, 351-400= 8 UNITS. BS GREATER THAN 400 GIVE 8 UNITS. CALL PCP IF BS <60 AMD >400 IF SYMPTOMATIC X 3 READINGS. diltiazem HCl 180 mg capsule,extended release 24hr 180 mg PO DAILY amlodipine 5 mg tablet 5 mg PO DAILY clonidine HCl 0.1 mg tablet 0.1 mg PO TID potassium chloride 10 mEq tablet extended release 10 meq PO DAILY Jardiance 10 mg tablet 10 mg PO DAILY sertraline 100 mg tablet 100 mg PO BEDTIME Trulicity 0.75 mg/0.5 mL pen injector See Rx Instructions .ROUTE .COMPLEX Rx Instructions: inject 0.5ml subcutaneously once a day on Sunday . ondansetron 4 mg tablet,disintegrating 4 mg PO Q6H PRN (Reason: nausea and vomiting) Qty: 14 0RF Discharge Orders: Discharge ED (Routine); Ordered 12/21/24 Ordered By: Fabian Ramos Discharge Diet: Advance as tolerated Discharge Activity: Resume usual activity Patient Instructions: Altered Mental Status (ED) Print Language: Bulgarian Coding Level of Care Code ED Hospice Coordinator for Sergio Dahl
--- NOTE | 2024-12-21 11:34 | ECG_ITS ---
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 Measurements Intervals [place] Rate: 101 P: 0 [place]: 0 QRS: -7 QRSD: 93 T: 41 QT: 324 QTc: 420 Interpretive Statements ATRIAL FIBRILLATION WITH RAPID VENTRICULAR RESPONSE ABNORMAL RHYTHM ECG Compared to ECG 11/18/2024 04:56:38 No significant change Electronically Signed On 12-21-2024 12:37:27 CDT by Martir Garcia M.D. [email or web address]
[2024-12-21 11:47] LABS: Alanine Aminotransferase 9 U/L (0-41); Albumin Level 3.6 g/dL (3.5-5.2); Alkaline Phosphatase 162 U/L (40-130); Anion Gap 17.9 (5-19); Aspartate Amino Transferase 14 U/L (0-40); Blood Urea Nitrogen 26 mg/dL (8-23); Calcium 9.3 mg/dL (8.5-10.5); Carbon Dioxide 26 mmol/L (22-29); Chloride 100 mmol/L (98-107); Creatinine Clr Calc Pharmacy 49.4157; Globulin 3.6 g/dL (1.3-4.6); Glucose 164 mg/dL (65-115); Osmolality Calculated 296 mOsm/kg (285-295); Potassium 4.9 mmol/L (3.5-5.1); Sodium 139 mmol/L (136-145); Total Bilirubin 0.4 mg/dL (0.15-1.2); Total Protein 7.2 g/dL (6.6-8.7)
[2024-12-21 14:26] VITALS: BP 119/74; PULSE 97; O2SAT 96
== END 2024-12-21 14:27 | disposition home or self-care (01) ==
PROVIDERS: Emergency Provider Emergency Medicine
DX: I12.9 Hypertensive chronic kidney disease with stage 1 through stage 4 chronic kidney disease, or unspecified chronic kidney disease (principal); N18.9 Chronic kidney disease, unspecified; I25.10 Atherosclerotic heart disease of native coronary artery without angina pectoris; Z86.73 Personal history of transient ischemic attack (TIA), and cerebral infarction without residual deficits; E78.5 Hyperlipidemia, unspecified; Z87.891 Personal history of nicotine dependence; I48.20 Chronic atrial fibrillation, unspecified
CPT/HCPCS: 80053; 85025; 93005; 99284

== ENCOUNTER 2024-12-25 16:18 | Emergency (ER) | payer MEDICARE, MEDICAID, SELFPAY ==
[2024-12-25 16:22] VITALS: BMI 25.8
[2024-12-25 16:49] VITALS: PULSE 86; RESP 16; O2SAT 99
[2024-12-25 17:09] VITALS: BP 109/81; PULSE 83; O2SAT 99
--- NOTE | 2024-12-25 17:15 | XRR_ITS ---
PROCEDURE INFORMATION: Exam: XR Chest Exam date and time: 12/25/2024 5:35 PM Age: 74 years old Clinical indication: Other: AMS TECHNIQUE: Imaging protocol: Radiologic exam of the chest. Views: 1 view. COMPARISON: CR (CHEST, ) 12/05/2024 8:31 PM FINDINGS: Lungs: Unremarkable. No consolidation. Pleural spaces: Unremarkable. No pleural effusion. No pneumothorax. Heart/Mediastinum: Stable cardiomediastinal silhouette. Vasculature: Atherosclerotic aortic calcifications. Bones/joints: Unremarkable. XR/XR chest 1V portable [id number] IMPRESSION: No acute cardiopulmonary findings.
--- NOTE | 2024-12-25 17:16 | W.ED.AMS ---
HPI - Altered Mental Status General: Chief Complaint: Altered Mental Status Stated Complaint: AMS Time Seen by Provider: 12/25/24 16:20 History of Present Illness: Luis Mcintosh, a patient with a history of stroke and recent hip fracture, presents with acute confusion, hallucinations, and inappropriate behavior. The patient was recently diagnosed with a urinary tract infection (UTI) and completed a course of antibiotics on Sunday. Mr. Mcintosh is currently experiencing visual hallucinations, seeing people who are not present. He is answering questions inappropriately and has the delusion that he is flying. These symptoms suggest a significant change in mental status. Upon arrival, the patient was noted to be more coherent, recognizing his surroundings and making jokes, indicating a fluctuating course of his confusion. He also has a history of stroke with residual left-sided weakness. Chronic venous stasis changes have been observed, suggesting poor circulation to his feet. The patient is currently taking tramadol, and it is noted that he has pinpoint pupils, which is not typically associated with this medication alone. Mr. Mcintosh was brought from [facility]. This recent change in mental status, occurring shortly after completing antibiotic treatment for a UTI, may indicate a potential relationship between these events or a possible recurrence or inadequate treatment of the infection. Related Data Home Medications ?Medication ?Instructions ?Recorded ?Confirmed lisinopril 20 mg tablet 20 mg PO BID 04/04/20 12/06/24 tamsulosin 0.4 mg capsule 0.4 mg PO BEDTIME 04/04/20 12/06/24 bisacodyl 10 mg rectal suppository 10 mg [place] DAILY PRN Constipation 02/12/22 12/06/24 bisacodyl 5 mg tablet,delayed 10 mg PO DAILY PRN Constipation 02/12/22 12/06/24 release gabapentin 100 mg capsule 100 mg PO BEDTIME 02/12/22 12/06/24 insulin glargine 100 unit/mL (3 20 unit SUBCUT BEDTIME 02/12/22 12/06/24 mL) subcutaneous pen (Lantus Solostar U-100 Insulin) metformin 1,000 mg tablet 1,000 mg PO BID 02/12/22 12/06/24 tramadol 50 mg tablet 50 mg PO Q6H PRN Pain 02/12/22 12/06/24 acetaminophen 325 mg tablet 650 mg PO Q6H PRN PAIN OR FEVER 07/08/23 12/06/24 apixaban 5 mg tablet (Eliquis) 5 mg PO BID 07/08/23 12/06/24 atorvastatin 10 mg tablet 10 mg PO BEDTIME 07/08/23 12/06/24 vit C 50 mg-E 15 unit-zinc cit 4.5 1 tab PO BEDTIME 07/08/23 12/06/24 mg-lutein 2.5 mg-zeaxan chew tablet (Flavourly Eye [employer]) cyanocobalamin (vitamin B-12) 500 250 mcg PO DAILY 01/24/24 12/06/24 mcg tablet insulin aspart U-100 100 unit/mL See Rx Instructions .Route .COMPLEX 01/24/24 12/06/24 (3 mL) subcutaneous pen (Novolog FlexPen U-100 Insulin aspart) loratadine 10 mg tablet 10 mg PO DAILY 01/24/24 12/06/24 amlodipine 5 mg tablet 5 mg PO DAILY 11/18/24 12/06/24 clonidine HCl 0.1 mg tablet 0.1 mg PO TID 11/18/24 12/06/24 diltiazem HCl 180 mg 180 mg PO DAILY 11/18/24 12/06/24 capsule,extended release 24 hr dulaglutide 0.75 mg/0.5 mL See Rx Instructions .Route .COMPLEX 11/18/24 12/06/24 subcutaneous pen injector (Trulicity) empagliflozin 10 mg tablet 10 mg PO DAILY 11/18/24 12/06/24 (Jardiance) potassium chloride 10 mEq 10 meq PO DAILY 11/18/24 12/06/24 tablet,extended release sertraline 100 mg tablet 100 mg PO BEDTIME 11/18/24 12/06/24 Previous Rx's ?Medication ?Instructions ?Recorded ondansetron 4 mg disintegrating 4 mg PO Q6H PRN nausea and 11/24/24 tablet vomiting #14 tabs furosemide 20 mg tablet (Lasix) 20 mg PO DAILY #30 tabs 12/09/24 Allergies Allergy/AdvReac Type Severity Reaction Status Date / Time Penicillins Allergy ALGY-Rash Verified 12/21/24 11:05 Review of Systems General: Reports: 10 or more systems reviewed and unremarkable except in HPI and below PFSH ED PFSH: Medical History Chronic indwelling Regan catheter Atrial fibrillation with rapid ventricular response Peripheral neuropathy CAD (coronary artery disease) Depression Chronic anticoagulation CVA (cerebral vascular accident) 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 CKD (chronic kidney disease) Baseline creatinine 1.9 Poorly controlled type 2 diabetes mellitus Dyslipidemia DVT (deep venous thrombosis) HTN (hypertension) Polycythemia Atrial fibrillation Surgical History S/P ORIF (open reduction internal fixation) fracture No pertinent past surgical history Family History Other CAD (coronary artery disease) Cancer Social History Smoking and tobacco/nicotine status: former use of tobacco/nicotine Quit status (tobacco/nicotine): has quit using Year quit tobacco: 2010 Former quit date comment: Due to stroke Alcohol intake: former Year of sobriety/quit date alcohol: 2010 Former alcohol use details: Never heavy drinker Substance/Drug Use: never Additional social history: Next of kin is his brother Michael Mcintosh who is 69 years old patient wants full CODE STATUS Caregiver/support person: No Household members: none Housing: House 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 [employer] Physical Exam Const: COMMON NORMALS: no acute distress, patient oriented x3, healthy appearing, alert and well nourished HENMT: COMMON NORMALS: normocephalic HEAD & SCALP: normocephalic Eye: COMMON NORMALS: EOMs intact bilaterally Neck/C-Spine: COMMON NORMALS: full ROM and supple Resp: COMMON NORMALS: normal respiratory effort, No retractions and clear to auscultation bilaterally AUSCULTATION: clear to auscultation bilaterally Cardio: COMMON NORMALS: regular rate, regular rhythm, No gallops present (Cardio) and No murmurs present (Cardio) RATE: regular rate RHYTHM: regular rhythm GI: COMMON NORMALS: Soft to palpation and non-tender PALPATION: Yes Soft to palpation Extremity: GENERAL: Yes normal exam except as noted Neuro: COMMON NORMALS: patient oriented x3 SENSORIUM/ORIENTATION: Yes alert Skin: COMMON NORMALS: no rashes or lesions noted GENERAL SKIN EXAM: no rashes or lesions noted Course Vital Signs: Vital signs: Vital Signs Temperature 98.5 F 12/25/24 17:21 Pulse Rate 97 12/26/24 02:51 Respiratory Rate 18 12/26/24 02:51 Blood Pressure 131/94 12/26/24 02:51 Pulse Oximetry 97 12/26/24 02:51 Oxygen Delivery Me thod Room Air 12/25/24 19:05 MDM - Altered Mental Status Medical Decision Making 74-year-old male presents to the emergency department from his care home. He was sent for evaluation of altered mental status. Based on chart review and nursing report his mental status is at baseline. He does have some confusion and unilateral weakness from a previous stroke. Patient did not have a white count, anemia, or other abnormalities on CBC, his CMP was also relatively normal. Chronic kidney disease is at baseline. His urinalysis did show pyuria but no other signs of infection. Urine drug screen was negative. Physical exam was normal. After an observation period the patient was discharged back to his nursing facility. Lab Data 12/25/24 14:08 12/25/24 14:08 Radiology Impressions Chest X-Ray 12/25/24 17:15 IMPRESSION: No acute cardiopulmonary findings. Laboratory Results WBC 8.70 10^3/uL (3.29-11.43) 12/25/24 14:08 RBC 4.18 10^6/uL (3.85-5.65) 12/25/24 14:08 Hgb 13.20 g/dL (11.27-16.99) 12/25/24 14:08 Hct 40.4 % (37-53) 12/25/24 14:08 MCV 96.7 fl (82-101) 12/25/24 14:08 MCH 31.6 pg (27-33) 12/25/24 14:08 MCHC 32.7 g/dL (30-55) 12/25/24 14:08 RDW 14.9 % (12.1-15.1) 12/25/24 14:08 Plt Count 258 10^3/cmm (157-399) 12/25/24 14:08 MPV 10.8 fL (7.4-10.4) H 12/25/24 14:08 Neut % (Auto) 74.3 % 12/25/24 14:08 Lymph % (Auto) 12.9 % 12/25/24 14:08 Mccone % (Auto) 8.5 % 12/25/24 14:08 Eos % (Auto) 2.8 % 12/25/24 14:08 Baso % (Auto) 0.8 % 12/25/24 14:08 Neut # (Auto) 6.47 10^3/uL (1.8-7.7) 12/25/24 14:08 Lymph # (Auto) 1.1 10^3/uL (0.8-4.8) 12/25/24 14:08 Mccone # (Auto) 0.7 10^3/uL (0.2-0.9) 12/25/24 14:08 Eos # (Auto) 0.2 10^3/uL (0.0-0.8) 12/25/24 14:08 Baso # (Auto) 0.1 10^3/uL (0.0-0.1) 12/25/24 14:08 Nucleated RBC % (auto) 0 % 12/25/24 14:08 Nucleated RBCs # 0.0 /100WBC 12/25/24 14:08 Sodium 138 mmol/L (136-145) 12/25/24 14:08 Potassium 4.2 mmol/L (3.5-5.1) 12/25/24 14:08 Chloride 103 mmol/L (98-107) 12/25/24 14:08 Carbon Dioxide 22 mmol/L (22-29) 12/25/24 14:08 Anion Gap 19.2 (5-19) H 12/25/24 14:08 BUN 19 mg/dL (8-23) 12/25/24 14:08 Creatinine 1.4 mg/dL (0.7-1.2) H 12/25/24 14:08 GFR Calculation Not Reportable 12/25/24 14:08 Glucose 138 mg/dL (65-115) H 12/25/24 14:08 Calculated Osmolality 292 mOsm/kg (285-295) 12/25/24 14:08 Calcium 8.9 mg/dL (8.5-10.5) 12/25/24 14:08 Total Bilirubin 0.3 mg/dL (0.15-1.2) 12/25/24 14:08 AST 13 U/L (0-40) 12/25/24 14:08 ALT 7 U/L (0-41) 12/25/24 14:08 Alkaline Phosphatase 149 U/L (40-130) H 12/25/24 14:08 Total Protein 6.6 g/dL (6.6-8.7) 12/25/24 14:08 Albumin 3.4 g/dL (3.5-5.2) L 12/25/24 14:08 Globulin 3.2 g/dL (1.3-4.6) 12/25/24 14:08 TSH 3.33 uIU/mL (0.27-4.20) 12/25/24 14:08 Urine Color Yellow (Yellow) 12/25/24 18:46 Urine Appearance Turbid (CLEAR) A 12/25/24 18:46 Urine pH 5.5 (5-7) 12/25/24 18:46 Ur Specific [place] 1.022 (1.005-1.030) 12/25/24 18:46 Urine Protein 2+ (Negative) A 12/25/24 18:46 Urine Glucose (UA) 3+ (Normal) H 12/25/24 18:46 Urine Ketones Negative (Negative) 12/25/24 18:46 Urine Blood 2+ (Negative) A 12/25/24 18:46 Urine Nitrate Negative (Negative) 12/25/24 18:46 Urine Bilirubin Negative (Negative) 12/25/24 18:46 Urine Urobilinogen 1.0 mg/dL (Negative) 12/25/24 18:46 Ur Leukocyte Esterase 2+ (Negative) A 12/25/24 18:46 Urine RBC 11-20 /hpf (0-2) H 12/25/24 18:46 Urine WBC >100 /hpf (0-5) H 12/25/24 18:46 Ur Squamous Epith Cells 0-5 /hpf (0-5) 12/25/24 18:46 Amorphous Sediment Not Reportable 12/25/24 18:46 Urine Bacteria 1+ /hpf (NONE) H 12/25/24 18:46 Hyaline Casts 11.57 /lpf 12/25/24 18:46 Urine Yeast 4+ /hpf H 12/25/24 18:46 Urine Opiates Screen Negative ng/mL (Negative) 12/25/24 18:46 Ur Barbiturates Screen Negative ng/mL (Negative) 12/25/24 18:46 Ur Phencyclidine Scrn Negative ng/mL (Negative) 12/25/24 18:46 Ur Amphetamines Screen Negative ng/mL (Negative) 12/25/24 18:46 U Benzodiazepines Scrn Negative ng/mL (Negative) 12/25/24 18:46 Urine Cocaine Screen Negative ng/mL (Negative) 12/25/24 18:46 U Marijuana (THC) Screen Negative ng/mL (Negative) 12/25/24 18:46 All radiology interpretation(s) finalized by discharge Discharge Plan Discharge Patient Disposition: Home Clinical Impression: Delirium due to general medical condition Condition: Stable Prescriptions: No Action lisinopril 20 mg tablet 20 mg PO BID tamsulosin 0.4 mg capsule 0.4 mg PO BEDTIME furosemide [Lasix] 20 mg tablet 20 mg PO DAILY Qty: 30 0RF tramadol 50 mg tablet 50 mg PO Q6H PRN (Reason: Pain) bisacodyl 10 mg Suppository 10 mg [place] DAILY PRN (Reason: Constipation) metformin 1,000 mg tablet 1,000 mg PO BID bisacodyl 5 mg Tablet,Delayed Release (Dr/Ec) 10 mg PO DAILY PRN (Reason: Constipation) gabapentin 100 mg Capsule 100 mg PO BEDTIME insulin glargine [Lantus Solostar U-100 Insulin] 100 unit/mL (3 mL) insulin pen 20 unit SUBCUT BEDTIME acetaminophen 325 mg Tablet 650 mg PO Q6H PRN (Reason: PAIN OR FEVER) atorvastatin 10 mg tablet 10 mg PO BEDTIME Eliquis 5 mg tablet 5 mg PO BID Ocuvite Eye Health 50 mg-15 unit- 4.5 mg-2.5 mg Tablet,Chewable 1 tab PO BEDTIME cyanocobalamin (vitamin B-12) 500 mcg Tablet 250 mcg PO DAILY loratadine 10 mg tablet 10 mg PO DAILY insulin aspart U-100 [Novolog FlexPen U-100 Insulin] 100 unit/mL (3 mL) insulin pen See Rx Instructions .ROUTE .COMPLEX Rx Instructions: PER SLIDING SCALE: BS 150-200= 0 UNITS, 201-250= 2 UNITS, 251-300= 4 UNITS, 301-350= 6 UNITS, 351-400= 8 UNITS. BS GREATER THAN 400 GIVE 8 UNITS. CALL PCP IF BS <60 AMD >400 IF SYMPTOMATIC X 3 READINGS. diltiazem HCl 180 mg capsule,extended release 24hr 180 mg PO DAILY amlodipine 5 mg tablet 5 mg PO DAILY clonidine HCl 0.1 mg tablet 0.1 mg PO TID potassium chloride 10 mEq tablet extended release 10 meq PO DAILY Jardiance 10 mg tablet 10 mg PO DAILY sertraline 100 mg tablet 100 mg PO BEDTIME Trulicity 0.75 mg/0.5 mL pen injector See Rx Instructions .ROUTE .COMPLEX Rx Instructions: inject 0.5ml subcutaneously once a day on Sunday . ondansetron 4 mg tablet,disintegrating 4 mg PO Q6H PRN (Reason: nausea and vomiting) Qty: 14 0RF Discharge Orders: Discharge ED (Routine); Ordered 12/26/24 Ordered By: James Law Discharge Diet: Advance as tolerated Discharge Activity: Resume usual activity Patient Instructions: Altered Mental Status (ED), Opioid Safety, Pain Management Activity Restrictions/Additional Instructions: Patient's altered mental status appears to be transient is likely delirium in nature. Please have him follow-up with his primary care physician regarding this delirium. Return to the emergency department for new or worsening symptoms. Print Language: Mosotho Coding Level of Care Code ED Comber Fixer for Sergio Dahl
[2024-12-25 17:21] VITALS: TEMP 36.9
[2024-12-25 17:26] LABS: Basophils # 0.1 10^3/uL (0.0-0.1); Basophils % 0.8 %; Eosinophils # 0.2 10^3/uL (0.0-0.8); Eosinophils % 2.8 %; Hematocrit 40.4 % (37-53); Lymphocytes # 1.1 10^3/uL (0.8-4.8); Lymphocytes % 12.9 %; Mean Corpuscular HGB Conc 32.7 g/dL (30-55); Mean Corpuscular Hemoglobin 31.6 pg (27-33); Mean Corpuscular Volume 96.7 fl (82-101); Mean Platelet Volume 10.8 fL (7.4-10.4); Monocytes # 0.7 10^3/uL (0.2-0.9); Monocytes % 8.5 %; Neutrophils # 6.47 10^3/uL (1.8-7.7); Neutrophils % 74.3 %; Nucleated Red Blood Cells % 0 %; Platelet Count 258 10^3/cmm (157-399); Red Blood Count 4.18 10^6/uL (3.85-5.65); Red Cell Distribution Width 14.9 % (12.1-15.1)
[2024-12-25 17:31] LABS: Alanine Aminotransferase 7 U/L (0-41); Albumin Level 3.4 g/dL (3.5-5.2); Alkaline Phosphatase 149 U/L (40-130); Chloride 103 mmol/L (98-107); Potassium 4.2 mmol/L (3.5-5.1); Sodium 138 mmol/L (136-145)
[2024-12-25 17:49] LABS: Anion Gap 19.2 (5-19); Aspartate Amino Transferase 13 U/L (0-40); Blood Urea Nitrogen 19 mg/dL (8-23); Calcium 8.9 mg/dL (8.5-10.5); Carbon Dioxide 22 mmol/L (22-29); Creatinine Clr Calc Pharmacy 51.5793; Globulin 3.2 g/dL (1.3-4.6); Glucose 138 mg/dL (65-115); Osmolality Calculated 292 mOsm/kg (285-295); Thyroid Stimulating Hormone 3.33 uIU/mL (0.27-4.20); Total Bilirubin 0.3 mg/dL (0.15-1.2); Total Protein 6.6 g/dL (6.6-8.7)
[2024-12-25 19:00] VITALS: BP 127/86; PULSE 89; RESP 20; O2SAT 99
[2024-12-25 19:05] VITALS: BP 127/86; PULSE 90; O2SAT 97
[2024-12-25 19:18] LABS: Bilirubin Urine Negative (Negative); Blood Urine 2+ (Negative); Glucose Urine UA 3+ (Normal); Ketones Urine Negative (Negative); Leukocyte Esterase Urine 2+ (Negative); Nitrate Urine Negative (Negative); Protein Urine 2+ (Negative); Specific Gravity, Urine 1.022 (1.005-1.030); Urine Appearance Turbid (CLEAR); Urine Color Yellow (Yellow); pH Urine 5.5 (5-7)
[2024-12-25 19:24] LABS: Add Urine Microscopic? YES; Hyaline Casts Urine 11.57 /lpf; Squamous Epithelial Cell Urine 0-5 /hpf (0-5); WBC Urine >100 /hpf (0-5)
[2024-12-25 19:28] LABS: Amphetamines Screen Urine Negative (Negative); Barbiturates Screen Urine Negative (Negative); Benzodiazepines Screen Urine Negative (Negative); Cocaine Screen Urine Negative (Negative); Opiate Screen Urine Negative (Negative); PCP Screen Urine Negative (Negative); THC Screen Urine Negative (Negative)
[2024-12-25 19:49] LABS: Add Urine Culture? Yes; Bacteria Urine 1+ /hpf
--- NOTE | 2024-12-25 23:52 | PC.NURSE ---
Pt. yelling out down the hallway, help me, help me . When I went into the room to check on the patient , he states that his left leg was off the matress and asked to have it put back on the bed.
[2024-12-26 02:51] VITALS: BP 131/94; PULSE 97; RESP 18; O2SAT 97
== END 2024-12-26 02:53 | disposition home or self-care (01) ==
PROVIDERS: Emergency Provider General Practice
DX: R41.82 Altered mental status, unspecified (principal); F05 Delirium due to known physiological condition; Z87.440 Personal history of urinary (tract) infections; I69.351 Hemiplegia and hemiparesis following cerebral infarction affecting right dominant side; N18.9 Chronic kidney disease, unspecified; I87.8 Other specified disorders of veins; Z87.891 Personal history of nicotine dependence; Z79.899 Other long term (current) drug therapy; Z79.4 Long term (current) use of insulin; Z79.84 Long term (current) use of oral hypoglycemic drugs; Z79.01 Long term (current) use of anticoagulants
CPT/HCPCS: 71045; 80053; 80306; 81001; 84443; 85025; 87086; 99284

== ENCOUNTER 2025-03-31 15:51 | Inpatient (IN) | payer MEDICARE, MEDICAID, SELFPAY ==
--- OUTSIDE RECORDS SUMMARY | 2024-02-29 06:56 | XMS_ITS | Continuity of Care Document ---
Author Name [facility] Organization [facility] Care Team Providers Care Pai Gow Dealer Name Role Phone [facility] Unavailable Unavailable Problems Combined list of problems from [facility] facilities. It does not include entries that were removed or entered in error. Problem Status Onset Date Problem Type Date of Resolution Comments Source Benign essential hypertension Active Condition [facility] Chronic atrial fibrillation Active Condition [facility] Diabetes mellitus with neuropathy Active Condition [facility] History of cardioembolic stroke Active Condition [facility] HLD - Hyperlipidaemia Active Condition [facility] Pain in bilateral lower legs Active Condition [facility] Peripheral sensory neuropathy due to type 2 diabetes mellitus Active Condition [facility] Medications Combined list of outpatient medications from [facility] facilities.Medications provided include 1) outpatient medications from the last 15 months, and 2) patient-reported medications. Medication Details Route Status Patient Instructions Prescription Expires Prescription Number Last Dispense Date Ordering Provider Order Date Order Qty Source ATORVASTATI N [place] 40MG TAB TAKE ONE-HALF TABLET BY MOUTH EVERY EVENING ORAL ACTIVE PETER RAMIREZ 2017 [facility] CLONIDINE HCL 0.3MG TAB TAKE ONE TABLET BY MOUTH THREE TIMES A DAY ORAL ACTIVE PETER RAMIREZ 2017 [facility] DILTIAZEM HCL 30MG TAB TAKE ONE TABLET BY MOUTH EVERY MORNING ORAL ACTIVE PETER RAMIREZ 2017 [facility] HYDRALAZINE HCL 100MG TAB TAKE ONE TABLET BY MOUTH THREE TIMES A DAY ORAL ACTIVE PETER RAMIREZ 2017 [facility] LISINOPRIL 40MG TAB TAKE ONE-HALF TABLET BY MOUTH TWICE A DAY ORAL ACTIVE PETER RAMIREZ 2017 [facility] WARFARIN (COUMADIN) NA 7.5MG TAB TAKE 7.5MG BY MOUTH TUES, THUR, SAT AND SUN ORAL ACTIVE PETER RAMIREZ 2017 [facility] WARFARIN NA 5MG TAB TAKE ONE TABLET BY MOUTH SUNDAY, Y AND SUNDAY ORAL ACTIVE PETER RAMIREZ 2017 [facility] Allergies, Adverse Reactions, Alerts Combined list of allergies from [facility]. It does not include entries that were removed or entered in error. Substance Category Reaction Severity Reaction type Status Date Reported Comments Source PENICILLIN Propensity to adverse reactions to drug (finding) active 8 [facility] Immunizations Combined list of available immunizations from the [facility] and [facility] facilities. Immunization Series Date Given Administered By Site Reaction Lot Number CVX Code Drug Padding Gluer Status Comments Source TDAP 2020 115 complet ed [facility] INFLUENZA, UNSPECIFIED FORMULATION 2019 88 complet ed [facility] INFLUENZA, UNSPECIFIED FORMULATION 2018 88 complet ed [facility] PNEUMOCOCCAL POLYSACCHARID E PPV23 2018 33 complet ed [facility] INFLUENZA, UNSPECIFIED FORMULATION 2017 88 complet ed [facility] PNEUMOCOCCAL CONJUGATE PCV 13 2017 133 complet ed yes [facility] INFLUENZA, UNSPECIFIED FORMULATION 2016 88 complet ed [facility] PNEUMOCOCCAL CONJUGATE PCV 13 2016 133 complet ed . [facility] Encounters Combined list of: 1) Encounters from [facility] facilities going backup to the last 18 months, not all [place] inpatient encounters are included; 2) Encounters from the [facility] facilities going backup to 280 months. Location Location Details Encounter Type Encounter Number Reason For Visit Attending Provider ADM Date DC Date Status Disposition Source [facility] Outpatient Encounter [id number] 9 08/30 [facility] Outpatient Encounter [id number] 02/28 [facility] Outpatient Encounter [id number] 02/28 [facility] Social History Combined list of available smoking, tobacco, and other social history from [facility] and [facility] facilities. Social History Type Response Date Comment Sour e Tobacco smoking status [place]-TOBACCO QUIT 15 YRS OR MORE 12/11/2019 [facility] History of tobacco use [facility]-TO[facility]ACCO FORMER USER 12/11/2019 [facility] History of tobacco use CURRENT NON-TOBAC CO USER-HX OF USE 10/25/[facility]
--- OUTSIDE RECORDS SUMMARY | 2024-02-29 06:56 | XMS_ITS | Continuity of Care Document ---
Author Name [facility] Organization [facility] Care Team Providers Care Director Skills Name Role Phone [facility] Unavailable Unavailable Problems Combined list of problems from [facility] and [facility] facilities. It does not include entries that were removed or entered in error. Problem Status Onset Date Problem Type Date of Resolution Comments Source Benign essential hypertension Active Condition [facility] Chronic atrial fibrillation Active Condition [facility] Diabetes mellitus with neuropathy Active Condition [facility] History of cardioembolic stroke Active Condition [facility] - Hyperlipidaemia Active Condition [facility] Pain in bilateral lower legs Active Condition [facility] Peripheral sensory neuropathy due to type 2 diabetes mellitus Active Condition [facility] Medications Combined list of outpatient medications from [facility] and [facility] facilities.Medications provided include 1) outpatient medications from the last 15 months, and 2) patient-reported medications. Medication Details Route Status Patient Instructions Prescription Expires Prescription Number Last Dispense Date Ordering Provider Order Date Order Qty Source ATORVASTATI N [place] 40MG TAB TAKE ONE-HALF TABLET BY MOUTH EVERY EVENING ORAL ACTIVE PETER RAMIREZ 2017 [facility] CLONIDINE HCL 0.3MG TAB TAKE ONE TABLET BY MOUTH THREE TIMES A DAY ORAL ACTIVE PETER RAMIREZ 2017 [facility] DILTIAZEM HCL 30MG TAB TAKE ONE TABLET BY MOUTH EVERY MORNING ORAL ACTIVE PETER RAMIREZ 2017 [facility] HYDRALAZINE HCL 100MG TAB TAKE ONE TABLET BY MOUTH THREE TIMES A DAY ORAL ACTIVE PETER RAMIREZ 2017 [facility] LISINOPRIL 40MG TAB TAKE ONE-HALF TABLET BY MOUTH TWICE A DAY ORAL ACTIVE PETER RAMIREZ 2017 [facility] WARFARIN (COUMADIN) NA 7.5MG TAB TAKE 7.5MG BY MOUTH TUES, THUR, SAT AND SUN ORAL ACTIVE PETER RAMIREZ 2017 [facility] WARFARIN NA 5MG TAB TAKE ONE TABLET BY MOUTH SUNDAY, Y AND SUNDAY ORAL ACTIVE PETER RAMIREZ 2017 [facility] Allergies, Adverse Reactions, Alerts Combined list of allergies from [facility] and [facility] facilities. It does not include entries that were removed or entered in error. Substance Category Reaction Severity Reaction type Status Date Reported Comments Source PENICILLIN Propensity to adverse reactions to drug (finding) active 8 [facility] Immunizations Combined list of available immunizations from the [facility] and [facility] facilities. Immunization Series Date Given Administered By Site Reaction Lot Number CVX Code Drug Concrete Journeyman Status Comments Source TDAP 2020 115 complet ed [facility] INFLUENZA, UNSPECIFIED FORMULATION 2019 88 complet ed [facility] INFLUENZA, UNSPECIFIED FORMULATION 2018 88 complet ed [facility] PNEUMOCOCCAL POLYSACCHARID E PPV23 2018 33 complet ed [facility] INFLUENZA, UNSPECIFIED FORMULATION 2017 88 complet ed [facility] PNEUMOCOCCAL CONJUGATE PCV 13 2017 133 complet ed yes [facility] INFLUENZA, UNSPECIFIED FORMULATION 2016 88 complet ed [facility] PNEUMOCOCCAL CONJUGATE PCV 13 2016 133 complet ed . [facility] Encounters Combined list of: 1) Encounters from [facility] facilities going backup to the last 18 months, not all [place] inpatient encounters are included; 2) Encounters from the [facility] facilities going backup to 280 months. Location Location Details Encounter Type Encounter Number Reason For Visit Attending Provider ADM Date DC Date Status Disposition Source [facility] Outpatient Encounter [id number] 08/30 [facility] Outpatient Encounter [id number] 02/28 [facility] Outpatient Encounter [id number] 02/28 [facility] Social History Combined list of available smoking, tobacco, and other social history from [facility] and [facility] facilities. Social History Type Response Date Comment Sour e Tobacco smoking status [place]IS [place]-TOBACCO QUIT 15 YRS OR MORE 12/11/2019 [facility] History of tobacco use VA-TOBACCO FORMER USER 12/11/2019 [facility] History of tobacco use CURRENT NON-TOBAC CO USER-HX OF USE [facility]25/[facility]
[2025-03-31] VITALS (7 sets, daily range): BP systolic 99–187; BP diastolic 53–97; PULSE 87–123; RESP 18–20; TEMP 36.7; O2SAT 97–100
--- OUTSIDE RECORDS SUMMARY | 2025-03-31 15:57 | XMS_ITS | Continuity of Care Document ---
Author Organization [facility] ([facility]) Address [address] [place] [id number] Insurance Providers Payer Plan Claims Address Claims Phone Policy Number Group Number Relation Employer Guarantor Name Guarantor Guarantor Address Guarantor Phone [employer] [address] [address], [place] [address] tel:[phone] [id number] MEDICA [place] MEDIC AID tel:[phone] [id number] Problems Condition ICD9 code ICD10 code SNOMED code Start Date End Date S tatus Paroxysmal atrial fibrillation I48.0 03/28/2022 Active Unspecified atrial fibrillation I48.91 04/05/2021 Active [facility] (current) use of anticoagulants Z79.01 04/05/2021 Active Atherosclerotic heart disease of [place] coronary artery without angina pectoris I25.10 04/05/2021 Active Hypertensive chronic kidney disease with stage 1 through stage 4 chronic kidney disease, or unspecified chronic kidney disease I12.9 04/05/2021 Active Personal history of nicotine dependence Z87.891 04/05/2021 Activ e Hemiplegia and hemiparesis following cerebral infarction affecting left non-dominant side I69.354 04/05/2021 Active History of falling Z91.81 05/10/2021 Ac tive Type 2 diabetes mellitus with diabetic neuropathy, unspecified E11.40 04/05/2021 Active Type 2 diabetes mellitus with 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 04/05/2021 Active [facility] (current) use of insulin Z79.4 04/05/2021 Active [employer] (current) use of oral hypoglycemic drugs Z79.84 04/05/2021 Active Chronic kidney disease, stage 3b N18.32 01/25/2023 Active Major depressive disorder, recurrent, moderate F33.1 01/17/2024 Active Secondary polycythemia D75.1 04/05/2021 Active Mixed hyperlipidemia E78.2 05/08/2022 Active Deficiency of other specified B group vitamins E53.8 09/06/2023 Active Benign prostatic hyperplasia without lower urinary tract symptoms N40.0 04/05/2021 Ac tive Patient's other noncompliance with medication regimen for other reason Z91.148 02/07/2023 Active Chronic atrial fibrillation, unspecified I48.20 06/04/2024 Active Hypertensive heart and chronic kidney disease with heart failure and stage 1 through stage 4 chronic kidney disease, or unspecified chronic kidney disease I13.0 07/02/2024 Active Heart failure, unspecified I50.9 07/02/2024 Active Long-term (current) use of injectable non-insulin antidiabetic drugs Z79.85 06/04/2024 Active Difficulty in walking, not elsewhere classified R26.2 08/20/2024 Active Anxiety disorder, unspecified F41.9 06/04/2024 Active Anemia in chronic kidney disease D63.1 05/22/2024 Active Displaced fracture of posterior column [ilioischial] of left acetabulum, subsequent encounter for fracture with routine healing S32.442D 11/22/2024 Acti ve Displaced fracture of anterior column [iliopubic] of left acetabulum, subsequent encounter for fracture with routine healing S32.432D 11/22/2024 Acti ve Fracture of superior rim of left pubis, subsequent encounter for fracture with routine healing S32.512D 11/22/2024 Acti ve Other specified fracture of left pubis, subsequent encounter for fracture with routine healing S32.592D 11/22/2024 Acti ve Muscle weakness (generalized) M62.81 11/24/2024 Active Retention of urine, unspecified R33.9 11/26/2024 Active Results Test Result Date/Time Value / Unit Interp. Refere nce Range Blood chemistry[[id number]] Glucose [Mass/volume] in Serum or Plasma [2345-7] 12/05/2024 04:18 PM 237 mg/dL N Blood chemistry[[id number]] Glucose [Mass/volume] in Serum or Plasma [2345-7] 12/05/2024 08:12 AM 186 mg/dL N Blood chemistry[[id number]] Glucose [Mass/volume] in Serum or Plasma [2345-7] 12/05/2024 01:50 PM 189 mg/dL N Blood chemistry[[id number]] Glucose [Mass/volume] in Serum or Plasma [2345-7] 12/05/2024 09:41 AM 175 mg/dL N Blood chemistry[[id number]] Glucose [Mass/volume] in Serum or Plasma [2345-7] 12/04/2024 12:20 PM 141 mg/dL N Blood chemistry[[id number]] Glucose [Mass/volume] in Serum or Plasma [2345-7] 12/04/2024 11:27 AM 141 mg/dL N Blood chemistry[[id number]] Glucose [Mass/volume] in Serum or Plasma [2345-7] 12/04/2024 03:41 PM 271 mg/dL N Blood chemistry[[id number]] Glucose [Mass/volume] in Serum or Plasma [2345-7] 12/04/2024 09:07 AM 148 mg/dL N Blood chemistry[[id number]] Glucose [Mass/volume] in Serum or Plasma [2345-7] 12/04/2024 12:50 PM 93 mg/dL N Blood chemistry[[id number]] Glucose [Mass/volume] in Serum or Plasma [2345-7] 12/03/2024 12:47 PM 197 mg/dL N Blood chemistry[[id number]] Glucose [Mass/volume] in Serum or Plasma [2345-7] 12/03/2024 12:45 PM 197 mg/dL N Blood chemistry[[id number]] Glucose [Mass/volume] in Serum or Plasma [2345-7] 12/03/2024 04:15 PM 210 mg/dL N Blood chemistry[[id number]] Glucose [Mass/volume] in Serum or Plasma [2345-7] 12/03/2024 09:03 AM 257 mg/dL N Blood chemistry[[id number]] Glucose [Mass/volume] in Serum or Plasma [2345-7] 12/03/2024 11:21 AM 160 mg/dL N Blood chemistry[[id number]] Glucose [Mass/volume] in Serum or Plasma [2345-7] 12/03/2024 11:20 AM 160 mg/dL N Blood chemistry[[id number]] Glucose [Mass/volume] in Serum or Plasma [2345-7] 12/02/2024 02:38 PM 202 mg/dL N Blood chemistry[[id number]] Glucose [Mass/volume] in Serum or Plasma [2345-7] 12/02/2024 01:41 PM 202 mg/dL N Blood chemistry[[id number]] Glucose [Mass/volume] in Serum or Plasma [2345-7] 12/02/2024 04:10 PM 394 mg/dL N Blood chemistry[[id number]] Glucose [Mass/volume] in Serum or Plasma [2345-7] 12/02/2024 09:32 AM 174 mg/dL N Blood chemistry[[id number]] Glucose [Mass/volume] in Serum or Plasma [2345-7] 12/02/2024 09:30 AM 174 mg/dL N Blood chemistry[[id number]] Glucose [Mass/volume] in Serum or Plasma [2345-7] 12/02/2024 12:43 PM 158 mg/dL N Blood chemistry[[id number]] Glucose [Mass/volume] in Serum or Plasma [2345-7] 12/02/2024 10:02 AM 199 mg/dL N Blood chemistry[[id number]] Glucose [Mass/volume] in Serum or Plasma [2345-7] 12/01/2024 12:18 PM 203 mg/dL N Blood chemistry[[id number]] Glucose [Mass/volume] in Serum or Plasma [2345-7] 12/01/2024 04:42 PM 263 mg/dL N Blood chemistry[[id number]] Glucose [Mass/volume] in Serum or Plasma [2345-7] 12/01/2024 09:51 AM 152 mg/dL N Blood chemistry[[id number]] Glucose [Mass/volume] in Serum or Plasma [2345-7] 12/01/2024 12:25 PM 189 mg/dL N Blood chemistry[[id number]] Glucose [Mass/volume] in Serum or Plasma [2345-7] 12/01/2024 10:46 AM 189 mg/dL N Blood chemistry[[id number]] Glucose [Mass/volume] in Serum or Plasma [2345-7] 11/30/2024 01:47 PM 206 mg/dL N Blood chemistry[[id number]] Glucose [Mass/volume] in Serum or Plasma [2345-7] 11/30/2024 04:12 PM 187 mg/dL N Blood chemistry[[id number]] Glucose [Mass/volume] in Serum or Plasma [2345-7] 11/30/2024 09:03 AM 179 mg/dL N Blood chemistry[[id number]] Glucose [Mass/volume] in Serum or Plasma [2345-7] 11/30/2024 12:07 PM 165 mg/dL N Blood chemistry[[id number]] Glucose [Mass/volume] in Serum or Plasma [2345-7] 11/30/2024 10:12 AM 174 mg/dL N Blood chemistry[[id number]] Glucose [Mass/volume] in Serum or Plasma [2345-7] 11/29/2024 12:39 PM 221 mg/dL N Blood chemistry[[id number]] Glucose [Mass/volume] in Serum or Plasma [2345-7] 11/29/2024 09:03 AM 232 mg/dL N Blood chemistry[[id number]] Glucose [Mass/volume] in Serum or Plasma [2345-7] 11/29/2024 12:57 PM 169 mg/dL N Blood chemistry[[id number]] Glucose [Mass/volume] in Serum or Plasma [2345-7] 11/29/2024 10:16 AM 164 mg/dL N Blood chemistry[[id number]] Glucose [Mass/volume] in Serum or Plasma [2345-7] 11/28/2024 12:16 PM 225 mg/dL N Blood chemistry[[id number]] Glucose [Mass/volume] in Serum or Plasma [2345-7] 11/28/2024 03:32 PM 232 mg/dL N Blood chemistry[[id number]] Glucose [Mass/volume] in Serum or Plasma [2345-7] 11/28/2024 09:18 AM 240 mg/dL N Blood chemistry[[id number]] Glucose [Mass/volume] in Serum or Plasma [2345-7] 11/28/2024 01:16 PM 232 mg/dL N Blood chemistry[[id number]] Glucose [Mass/volume] in Serum or Plasma [2345-7] 11/27/2024 01:00 PM 298 mg/dL N Blood chemistry[[id number]] Glucose [Mass/volume] in Serum or Plasma [2345-7] 11/27/2024 04:45 PM 204 mg/dL N Blood chemistry[[id number]] Glucose [Mass/volume] in Serum or Plasma [2345-7] 11/27/2024 09:45 AM 240 mg/dL N Blood chemistry[[id number]] Glucose [Mass/volume] in Serum or Plasma [2345-7] 11/27/2024 11:21 AM 166 mg/dL N Blood chemistry[[id number]] Glucose [Mass/volume] in Serum or Plasma [2345-7] 11/26/2024 12:11 PM 314 mg/dL N Blood chemistry[[id number]] Glucose [Mass/volume] in Serum or Plasma [2345-7] 11/26/2024 04:21 PM 256 mg/dL N Blood chemistry[[id number]] Glucose [Mass/volume] in Serum or Plasma [2345-7] 11/26/2024 09:22 AM 164 mg/dL N Blood chemistry[[id number]] Glucose [Mass/volume] in Serum or Plasma [2345-7] 11/26/2024 12:44 PM 326 mg/dL N Blood chemistry[[id number]] Glucose [Mass/volume] in Serum or Plasma [2345-7] 11/26/2024 10:04 AM 326 mg/dL N Blood chemistry[[id number]] Glucose [Mass/volume] in Serum or Plasma [2345-7] 11/25/2024 11:51 AM 225 mg/dL N Blood chemistry[[id number]] Glucose [Mass/volume] in Serum or Plasma [2345-7] 11/25/2024 05:19 PM 298 mg/dL N Blood chemistry[[id number]] Glucose [Mass/volume] in Serum or Plasma [2345-7] 11/25/2024 05:18 PM 298 mg/dL N Blood chemistry[[id number]] Glucose [Mass/volume] in Serum or Plasma [2345-7] 11/25/2024 09:49 AM 266 mg/dL N Blood chemistry[[id number]] Glucose [Mass/volume] in Serum or Plasma [2345-7] 11/25/2024 09:47 AM 266 mg/dL N Blood chemistry[] Glucose [Mass/volume] in Serum or Plasma [2345-7] 11/25/2024 11:53 AM 277 mg/dL N Blood chemistry[[id number]] Glucose [Mass/volume] in Serum or Plasma [2345-7] 11/25/2024 09:50 AM 88 mg/dL N Blood chemistry[[id number]] Glucose [Mass/volume] in Serum or Plasma [2345-7] 11/25/2024 09:40 AM 274 mg/dL N Blood chemistry[[id number]] Glucose [Mass/volume] in Serum or Plasma [2345-7] 11/25/2024 06:06 AM 110 mg/dL N Blood chemistry[[id number]] Glucose [Mass/volume] in Serum or Plasma [2345-7] 11/24/2024 04:21 PM 298 mg/dL N Blood chemistry[[id number]] Glucose [Mass/volume] in Serum or Plasma [2345-7] 11/24/2024 04:20 PM 298 mg/dL N Blood chemistry[[id number]] Glucose [Mass/volume] in Serum or Plasma [2345-7] 11/24/2024 02:55 PM 229 mg/dL N Blood chemistry[[id number]] Glucose [Mass/volume] in Serum or Plasma [2345-7] 11/24/2024 01:29 PM 229 mg/dL N Blood chemistry[[id number]] Glucose [Mass/volume] in Serum or Plasma [2345-7] 11/23/2024 01:36 PM 248 mg/dL N Blood chemistry[[id number]] Glucose [Mass/volume] in Serum or Plasma [2345-7] 11/23/2024 10:46 AM 204 mg/dL N Blood chemistry[[id number]] Glucose [Mass/volume] in Serum or Plasma [2345-7] 11/23/2024 04:43 PM 288 mg/dL N Blood chemistry[[id number]] Glucose [Mass/volume] in Serum or Plasma [2345-7] 11/23/2024 12:05 PM 211 mg/dL N Blood chemistry[[id number]] Glucose [Mass/volume] in Serum or Plasma [2345-7] 11/17/2024 12:40 PM 272 mg/dL N Blood chemistry[[id number]] Glucose [Mass/volume] in Serum or Plasma [2345-7] 11/17/2024 09:21 AM 213 mg/dL N Blood chemistry[[id number]] Glucose [Mass/volume] in Serum or Plasma [2345-7] 11/17/2024 09:20 AM 167 mg/dL N Blood chemistry[[id number]] Glucose [Mass/volume] in Serum or Plasma [2345-7] 11/17/2024 01:13 PM 133 mg/dL N Blood chemistry[[id number]] Glucose [Mass/volume] in Serum or Plasma [2345-7] 11/16/2024 03:28 PM 285 mg/dL N Blood chemistry[[id number]] Glucose [Mass/volume] in Serum or Plasma [2345-7] 11/16/2024 05:13 PM 144 mg/dL N Blood chemistry[[id number]] Glucose [Mass/volume] in Serum or Plasma [2345-7] 11/16/2024 10:04 AM 189 mg/dL N Blood chemistry[[id number]] Glucose [Mass/volume] in Serum or Plasma [2345-7] 11/16/2024 01:24 PM 135 mg/dL N Blood chemistry[[id number]] Glucose [Mass/volume] in Serum or Plasma [2345-7] 11/15/2024 04:03 PM 102 mg/dL N Blood chemistry[[id number]] Glucose [Mass/volume] in Serum or Plasma [2345-7] 11/15/2024 02:41 PM 100 mg/dL N Blood chemistry[[id number]] Glucose [Mass/volume] in Serum or Plasma [2345-7] 11/15/2024 08:56 AM 177 mg/dL N Blood chemistry[[id number]] Glucose [Mass/volume] in Serum or Plasma [2345-7] 11/15/2024 12:36 PM 100 mg/dL N Blood chemistry[[id number]] Glucose [Mass/volume] in Serum or Plasma [2345-7] 11/14/2024 04:53 PM 212 mg/dL N Blood chemistry[[id number]] Glucose [Mass/volume] in Serum or Plasma [2345-7] 11/14/2024 10:44 AM 176 mg/dL N Blood chemistry[[id number]] Glucose [Mass/volume] in Serum or Plasma [2345-7] 11/14/2024 07:41 AM 165 mg/dL N Blood chemistry[[id number]] Glucose [Mass/volume] in Serum or Plasma [2345-7] 11/14/2024 10:04 AM 186 mg/dL N Blood chemistry[[id number]] Glucose [Mass/volume] in Serum or Plasma [2345-7] 11/13/2024 12:00 PM 305 mg/dL N Blood chemistry[[id number]] Glucose [Mass/volume] in Serum or Plasma [2345-7] 11/13/2024 04:40 PM 198 mg/dL N Blood chemistry[[id number]] Glucose [Mass/volume] in Serum or Plasma [2345-7] 11/13/2024 09:44 AM 156 mg/dL N Blood chemistry[[id number]] Glucose [Mass/volume] in Serum or Plasma [2345-7] 11/13/2024 02:31 PM 101 mg/dL N Blood chemistry[[id number]] Glucose [Mass/volume] in Serum or Plasma [2345-7] 11/13/2024 10:07 AM 91 mg/dL N Blood chemistry[[id number]] Glucose [Mass/volume] in Serum or Plasma [2345-7] 11/12/2024 11:33 AM 252 mg/dL N Blood chemistry[[id number]] Glucose [Mass/volume] in Serum or Plasma [2345-7] 11/12/2024 03:53 PM 156 mg/dL N Blood chemistry[[id number]] Glucose [Mass/volume] in Serum or Plasma [2345-7] 11/12/2024 09:49 AM 186 mg/dL N Blood chemistry[[id number]] Glucose [Mass/volume] in Serum or Plasma [2345-7] 11/12/2024 10:13 AM 144 mg/dL N Blood chemistry[[id number]] Glucose [Mass/volume] in Serum or Plasma [2345-7] 11/11/2024 11:00 AM 276 mg/dL N Blood chemistry[[id number]] Glucose [Mass/volume] in Serum or Plasma [2345-7] 11/11/2024 04:38 PM 178 mg/dL N Blood chemistry[[id number]] Glucose [Mass/volume] in Serum or Plasma [2345-7] 11/11/2024 09:28 AM 178 mg/dL N Blood chemistry[[id number]] Glucose [Mass/volume] in Serum or Plasma [2345-7] 11/11/2024 11:46 AM 101 mg/dL N Blood chemistry[[id number]] Glucose [Mass/volume] in Serum or Plasma [2345-7] 11/10/2024 12:48 PM 228 mg/dL N Blood chemistry[[id number]] Glucose [Mass/volume] in Serum or Plasma [2345-7] 11/10/2024 03:06 PM 101 mg/dL N Blood chemistry[[id number]] Glucose [Mass/volume] in Serum or Plasma [2345-7] 11/10/2024 09:17 AM 203 mg/dL N Blood chemistry[[id number]] Glucose [Mass/volume] in Serum or Plasma [2345-7] 11/10/2024 01:44 PM 217 mg/dL N Blood chemistry[[id number]] Glucose [Mass/volume] in Serum or Plasma [2345-7] 11/09/2024 12:36 PM 349 mg/dL N Blood chemistry[[id number]] Glucose [Mass/volume] in Serum or Plasma [2345-7] 11/09/2024 04:40 PM 178 mg/dL N Blood chemistry[[id number]] Glucose [Mass/volume] in Serum or Plasma [2345-7] 11/09/2024 10:05 AM 170 mg/dL N Blood chemistry[[id number]] Glucose [Mass/volume] in Serum or Plasma [2345-7] 11/09/2024 12:27 PM 185 mg/dL N Blood chemistry[[id number]] Glucose [Mass/volume] in Serum or Plasma [2345-7] 11/09/2024 12:19 PM 185 mg/dL N Blood chemistry[[id number]] Glucose [Mass/volume] in Serum or Plasma [2345-7] 11/08/2024 04:53 PM 180 mg/dL N Blood chemistry[[id number]] Glucose [Mass/volume] in Serum or Plasma [2345-7] 11/08/2024 05:02 PM 188 mg/dL N Blood chemistry[[id number]] Glucose [Mass/volume] in Serum or Plasma [2345-7] 11/08/2024 09:41 AM 199 mg/dL N Blood chemistry[[id number]] Glucose [Mass/volume] in Serum or Plasma [2345-7] 11/08/2024 12:07 PM 194 mg/dL N Blood chemistry[[id number]] Glucose [Mass/volume] in Serum or Plasma [2345-7] 11/07/2024 11:57 AM 246 mg/dL N Blood chemistry[[id number]] Glucose [Mass/volume] in Serum or Plasma [2345-7] 11/07/2024 05:10 PM 208 mg/dL N Blood chemistry[[id number]] Glucose [Mass/volume] in Serum or Plasma [2345-7] 11/07/2024 10:18 AM 174 mg/dL N Blood chemistry[[id number]] Glucose [Mass/volume] in Serum or Plasma [2345-7] 11/07/2024 10:09 AM 178 mg/dL N Blood chemistry[[id number]] Glucose [Mass/volume] in Serum or Plasma [2345-7] 11/06/2024 12:08 PM 295 mg/dL N Blood chemistry[[id number]] Glucose [Mass/volume] in Serum or Plasma [2345-7] 11/06/2024 05:19 PM 95 mg/dL N Blood chemistry[[id number]] Glucose [Mass/volume] in Serum or Plasma [2345-7] 11/06/2024 10:34 AM 132 mg/dL N Blood chemistry[[id number]] Glucose [Mass/volume] in Serum or Plasma [2345-7] 11/06/2024 10:10 AM 125 mg/dL N Blood chemistry[[id number]] Glucose [Mass/volume] in Serum or Plasma [2345-7] 11/05/2024 11:56 AM 225 mg/dL N Blood chemistry[[id number]] Glucose [Mass/volume] in Serum or Plasma [2345-7] 11/05/2024 05:52 PM 164 mg/dL N Blood chemistry[[id number]] Glucose [Mass/volume] in Serum or Plasma [2345-7] 11/05/2024 09:52 AM 155 mg/dL N Blood chemistry[[id number]] Glucose [Mass/volume] in Serum or Plasma [2345-7] 11/05/2024 12:18 PM 116 mg/dL N Blood chemistry[[id number]] Glucose [Mass/volume] in Serum or Plasma [2345-7] 11/05/2024 10:06 AM 154 mg/dL N Blood chemistry[[id number]] Glucose [Mass/volume] in Serum or Plasma [2345-7] 11/04/2024 11:39 AM 171 mg/dL N Blood chemistry[[id number]] Glucose [Mass/volume] in Serum or Plasma [2345-7] 11/04/2024 04:47 PM 162 mg/dL N Blood chemistry[[id number]] Glucose [Mass/volume] in Serum or Plasma [2345-7] 11/04/2024 10:17 AM 106 mg/dL N Blood chemistry[[id number]] Glucose [Mass/volume] in Serum or Plasma [2345-7] 11/04/2024 12:26 PM 72 mg/dL N Blood chemistry[[id number]] Glucose [Mass/volume] in Serum or Plasma [2345-7] 11/04/2024 10:21 AM 60 mg/dL N Blood chemistry[[id number]] Glucose [Mass/volume] in Serum or Plasma [2345-7] 11/03/2024 01:17 PM 336 mg/dL N Blood chemistry[[id number]] Glucose [Mass/volume] in Serum or Plasma [2345-7] 11/03/2024 03:34 PM 121 mg/dL N Glucose [Mass/volume] in Serum or Plasma [2345-7] 11/03/2024 03:34 PM 121 mg/dL N Blood chemistry[[id number]] Glucose [Mass/volume] in Serum or Plasma [2345-7] 11/03/2024 09:55 AM 184 mg/dL N Blood chemistry[[id number]] Glucose [Mass/volume] in Serum or Plasma [2345-7] 11/03/2024 12:34 PM 101 mg/dL N Blood chemistry[[id number]] Glucose [Mass/volume] in Serum or Plasma [2345-7] 11/03/2024 10:37 AM 136 mg/dL N Blood chemistry[[id number]] Glucose [Mass/volume] in Serum or Plasma [2345-7] 11/02/2024 12:31 PM 327 mg/dL N Blood chemistry[[id number]] Glucose [Mass/volume] in Serum or Plasma [2345-7] 11/02/2024 09:01 AM 141 mg/dL N Blood chemistry[[id number]] Glucose [Mass/volume] in Serum or Plasma [2345-7] 11/02/2024 10:12 AM 156 mg/dL N Blood chemistry[[id number]] Glucose [Mass/volume] in Serum or Plasma [2345-7] 11/01/2024 02:52 PM 255 mg/dL N Blood chemistry[[id number]] Glucose [Mass/volume] in Serum or Plasma [2345-7] 11/01/2024 04:18 PM 178 mg/dL N Blood chemistry[[id number]] Glucose [Mass/volume] in Serum or Plasma [2345-7] 11/01/2024 09:40 AM 199 mg/dL N Blood chemistry[[id number]] Glucose [Mass/volume] in Serum or Plasma [2345-7] 11/01/2024 11:27 AM 190 mg/dL N Blood chemistry[[id number]] Glucose [Mass/volume] in Serum or Plasma [2345-7] 11/01/2024 10:26 AM 155 mg/dL N Blood chemistry[[id number]] Glucose [Mass/volume] in Serum or Plasma [2345-7] 10/31/2024 12:31 PM 353 mg/dL N Blood chemistry[[id number]] Glucose [Mass/volume] in Serum or Plasma [2345-7] 10/31/2024 10:30 AM 306 mg/dL N Blood chemistry[[id number]] Glucose [Mass/volume] in Serum or Plasma [2345-7] 10/31/2024 06:52 AM 127 mg/dL N Blood chemistry[[id number]] Glucose [Mass/volume] in Serum or Plasma [2345-7] 10/31/2024 02:18 PM 144 mg/dL N Blood chemistry[[id number]] Glucose [Mass/volume] in Serum or Plasma [2345-7] 10/30/2024 12:30 PM 188 mg/dL N Blood chemistry[[id number]] Glucose [Mass/volume] in Serum or Plasma [2345-7] 10/30/2024 04:55 PM 200 mg/dL N Blood chemistry[[id number]] Glucose [Mass/volume] in Serum or Plasma [2345-7] 10/30/2024 09:55 AM 141 mg/dL N Blood chemistry[[id number]] Glucose [Mass/volume] in Serum or Plasma [2345-7] 10/30/2024 10:02 AM 102 mg/dL N Blood chemistry[[id number]] Glucose [Mass/volume] in Serum or Plasma [2345-7] 10/29/2024 11:41 AM 163 mg/dL N Blood chemistry[[id number]] Glucose [Mass/volume] in Serum or Plasma [2345-7] 10/29/2024 04:00 PM 78 mg/dL N Glucose [Mass/volume] in Serum or Plasma [2345-7] 10/29/2024 04:00 PM 78 mg/dL N Blood chemistry[[id number]] Glucose [Mass/volume] in Serum or Plasma [2345-7] 10/29/2024 09:47 AM 100 mg/dL N Blood chemistry[[id number]] Glucose [Mass/volume] in Serum or Plasma [2345-7] 10/29/2024 10:28 AM 71 mg/dL N Blood chemistry[[id number]] Glucose [Mass/volume] in Serum or Plasma [2345-7] 10/28/2024 11:54 AM 302 mg/dL N Blood chemistry[[id number]] Glucose [Mass/volume] in Serum or Plasma [2345-7] 10/28/2024 04:10 PM 164 mg/dL N Glucose [Mass/volume] in Serum or Plasma [2345-7] 10/28/2024 04:10 PM 164 mg/dL N Blood chemistry[[id number]] Glucose [Mass/volume] in Serum or Plasma [2345-7] 10/28/2024 09:37 AM 164 mg/dL N Blood chemistry[[id number]] Glucose [Mass/volume] in Serum or Plasma [2345-7] 10/28/2024 06:14 AM 110 mg/dL N Blood chemistry[[id number]] Glucose [Mass/volume] in Serum or Plasma [2345-7] 10/28/2024 11:55 AM 59 mg/dL N Blood chemistry[[id number]] Glucose [Mass/volume] in Serum or Plasma [2345-7] 10/27/2024 12:39 PM 192 mg/dL N Blood chemistry[[id number]] Glucose [Mass/volume] in Serum or Plasma [2345-7] 10/27/2024 03:27 PM 99 mg/dL N Blood chemistry[[id number]] Glucose [Mass/volume] in Serum or Plasma [2345-7] 10/27/2024 09:34 AM 108 mg/dL N Blood chemistry[[id number]] Glucose [Mass/volume] in Serum or Plasma [2345-7] 10/27/2024 11:55 AM 98 mg/dL N Blood chemistry[[id number]] Glucose [Mass/volume] in Serum or Plasma [2345-7] 10/26/2024 01:24 PM 214 mg/dL N Blood chemistry[[id number]] Glucose [Mass/volume] in Serum or Plasma [2345-7] 10/26/2024 03:58 PM 174 mg/dL N Blood chemistry[[id number]] Glucose [Mass/volume] in Serum or Plasma [2345-7] 10/26/2024 09:37 AM 89 mg/dL N Blood chemistry[[id number]] Glucose [Mass/volume] in Serum or Plasma [2345-7] 10/26/2024 09:33 AM 89 mg/dL N Blood chemistry[[id number]] Glucose [Mass/volume] in Serum or Plasma [2345-7] 10/26/2024 10:16 AM 107 mg/dL N Blood chemistry[[id number]] Glucose [Mass/volume] in Serum or Plasma [2345-7] 10/25/2024 11:38 AM 229 mg/dL N Blood chemistry[[id number]] Glucose [Mass/volume] in Serum or Plasma [2345-7] 10/25/2024 04:19 PM 90 mg/dL N Blood chemistry[[id number]] Glucose [Mass/volume] in Serum or Plasma [2345-7] 10/25/2024 08:41 AM 158 mg/dL N Blood chemistry[[id number]] Glucose [Mass/volume] in Serum or Plasma [2345-7] 10/25/2024 12:19 PM 73 mg/dL N Blood chemistry[[id number]] Glucose [Mass/volume] in Serum or Plasma [2345-7] 10/25/2024 10:16 AM 171 mg/dL N Blood chemistry[[id number]] Glucose [Mass/volume] in Serum or Plasma [2345-7] 10/24/2024 12:27 PM 261 mg/dL N Blood chemistry[[id number]] Glucose [Mass/volume] in Serum or Plasma [2345-7] 10/24/2024 05:16 PM 140 mg/dL N Blood chemistry[[id number]] Glucose [Mass/volume] in Serum or Plasma [2345-7] 10/24/2024 09:30 AM 193 mg/dL N Blood chemistry[[id number]] Glucose [Mass/volume] in Serum or Plasma [2345-7] 10/24/2024 11:26 AM 165 mg/dL N Blood chemistry[[id number]] Glucose [Mass/volume] in Serum or Plasma [2345-7] 10/24/2024 10:07 AM 165 mg/dL N Blood chemistry[[id number]] Glucose [Mass/volume] in Serum or Plasma [2345-7] 10/23/2024 11:40 AM 262 mg/dL N Blood chemistry[[id number]] Glucose [Mass/volume] in Serum or Plasma [2345-7] 10/23/2024 04:13 PM 190 mg/dL N Glucose [Mass/volume] in Serum or Plasma [2345-7] 10/23/2024 04:13 PM 190 mg/dL N Blood chemistry[[id number]] Glucose [Mass/volume] in Serum or Plasma [2345-7] 10/23/2024 08:51 AM 178 mg/dL N Glucose [Mass/volume] in Serum or Plasma [2344-7] 10/23/2024 08:51 AM 178 mg/dL N Blood chemistry[[id number]] Glucose [Mass/volume] in Serum or Plasma [2345-7] 10/23/2024 11:05 AM 112 mg/dL N Blood chemistry[[id number]] Glucose [Mass/volume] in Serum or Plasma [2345-7] 10/23/2024 11:01 AM 112 mg/dL N Blood chemistry[[id number]] Glucose [Mass/volume] in Serum or Plasma [2345-7] 10/22/2024 11:27 AM 211 mg/dL N Blood chemistry[[id number]] Glucose [Mass/volume] in Serum or Plasma [2345-7] 10/22/2024 03:51 PM 129 mg/dL N Glucose [Mass/volume] in Serum or Plasma [2345-7] 10/22/2024 03:51 PM 129 mg/dL N Blood chemistry[[id number]] Glucose [Mass/volume] in Serum or Plasma [2345-7] 10/22/2024 08:22 AM 174 mg/dL N Blood chemistry[[id number]] Glucose [Mass/volume] in Serum or Plasma [2345-7] 10/22/2024 08:19 AM 174 mg/dL N Blood chemistry[[id number]] Glucose [Mass/volume] in Serum or Plasma [2345-7] 10/22/2024 11:29 AM 85 mg/dL N Blood chemistry[[id number]] Glucose [Mass/volume] in Serum or Plasma [2345-7] 10/22/2024 10:14 AM 102 mg/dL N Blood chemistry[[id number]] Glucose [Mass/volume] in Serum or Plasma [2345-7] 10/21/2024 12:02 PM 187 mg/dL N Blood chemistry[[id number]] Glucose [Mass/volume] in Serum or Plasma [2345-7] 10/21/2024 05:15 PM 88 mg/dL N Blood chemistry[[id number]] Glucose [Mass/volume] in Serum or Plasma [2345-7] 10/21/2024 10:35 AM 88 mg/dL N Blood chemistry[[id number]] Glucose [Mass/volume] in Serum or Plasma [2345-7] 10/21/2024 12:14 PM 78 mg/dL N Blood chemistry[[id number]] Glucose [Mass/volume] in Serum or Plasma [2345-7] 10/20/2024 11:46 AM 283 mg/dL N Blood chemistry[[id number]] Glucose [Mass/volume] in Serum or Plasma [2345-7] 10/20/2024 04:05 PM 112 mg/dL N Blood chemistry[[id number]] Glucose [Mass/volume] in Serum or Plasma [2345-7] 10/20/2024 09:38 AM 127 mg/dL N Blood chemistry[[id number]] Glucose [Mass/volume] in Serum or Plasma [2345-7] 10/20/2024 10:18 AM 72 mg/dL N Blood chemistry[[id number]] Glucose [Mass/volume] in Serum or Plasma [2345-7] 10/19/2024 12:35 PM 223 mg/dL N Blood chemistry[[id number]] Glucose [Mass/volume] in Serum or Plasma [2345-7] 10/19/2024 04:57 PM 95 mg/dL N Blood chemistry[[id number]] Glucose [Mass/volume] in Serum or Plasma [2345-7] 10/19/2024 10:14 AM 88 mg/dL N Blood chemistry[[id number]] Glucose [Mass/volume] in Serum or Plasma [2345-7] 10/19/2024 12:40 PM 128 mg/dL N Blood chemistry[[id number]] Glucose [Mass/volume] in Serum or Plasma [2345-7] 10/18/2024 12:24 PM 243 mg/dL N Blood chemistry[[id number]] Glucose [Mass/volume] in Serum or Plasma [2345-7] 10/18/2024 03:43 PM 200 mg/dL N Blood chemistry[[id number]] Glucose [Mass/volume] in Serum or Plasma [2345-7] 10/18/2024 08:32 AM 173 mg/dL N Blood chemistry[[id number]] Glucose [Mass/volume] in Serum or Plasma [2345-7] 10/18/2024 11:54 AM 108 mg/dL N Blood chemistry[[id number]] Glucose [Mass/volume] in Serum or Plasma [2345-7] 10/18/2024 10:51 AM 72 mg/dL N Blood chemistry[[id number]] Glucose [Mass/volume] in Serum or Plasma [2345-7] 10/17/2024 01:05 PM 307 mg/dL N Blood chemistry[[id number]] Glucose [Mass/volume] in Serum or Plasma [2345-7] 10/17/2024 05:57 PM 107 mg/dL N Blood chemistry[[id number]] Glucose [Mass/volume] in Serum or Plasma [2345-7] 10/17/2024 10:11 AM 135 mg/dL N Blood chemistry[[id number]] Glucose [Mass/volume] in Serum or Plasma [2345-7] 10/17/2024 08:21 AM 107 mg/dL N Blood chemistry[[id number]] Glucose [Mass/volume] in Serum or Plasma [2345-7] 10/17/2024 12:14 PM 159 mg/dL N Blood chemistry[[id number]] Glucose [Mass/volume] in Serum or Plasma [2345-7] 10/16/2024 12:55 PM 195 mg/dL N Blood chemistry[[id number]] Glucose [Mass/volume] in Serum or Plasma [2345-7] 10/16/2024 04:39 PM 144 mg/dL N Blood chemistry[[id number]] Glucose [Mass/volume] in Serum or Plasma [2345-7] 10/16/2024 10:04 AM 203 mg/dL N Blood chemistry[[id number]] Glucose [Mass/volume] in Serum or Plasma [2345-7] 10/16/2024 10:02 AM 98 mg/dL N Blood chemistry[[id number]] Glucose [Mass/volume] in Serum or Plasma [2345-7] 10/15/2024 11:33 AM 286 mg/dL N Blood chemistry[[id number]] Glucose [Mass/volume] in Serum or Plasma [2345-7] 10/15/2024 04:44 PM 236 mg/dL N Blood chemistry[[id number]] Glucose [Mass/volume] in Serum or Plasma [2345-7] 10/15/2024 09:26 AM 216 mg/dL N Blood chemistry[[id number]] Glucose [Mass/volume] in Serum or Plasma [2345-7] 10/15/2024 01:17 PM 191 mg/dL N Blood chemistry[[id number]] Glucose [Mass/volume] in Serum or Plasma [2345-7] 10/15/2024 10:18 AM 131 mg/dL N Blood chemistry[[id number]] Glucose [Mass/volume] in Serum or Plasma [2345-7] 10/14/2024 11:39 AM 216 mg/dL N Blood chemistry[[id number]] Glucose [Mass/volume] in Serum or Plasma [2345-7] 10/14/2024 09:38 AM 155 mg/dL N Blood chemistry[[id number]] Glucose [Mass/volume] in Serum or Plasma [2345-7] 10/14/2024 06:34 AM 279 mg/dL N Blood chemistry[[id number]] Glucose [Mass/volume] in Serum or Plasma [2345-7] 10/13/2024 05:55 PM 134 mg/dL N Blood chemistry[[id number]] Glucose [Mass/volume] in Serum or Plasma [2345-7] 10/13/2024 02:20 PM 154 mg/dL N Blood chemistry[[id number]] Glucose [Mass/volume] in Serum or Plasma [2345-7] 10/13/2024 09:45 AM 154 mg/dL N Blood chemistry[[id number]] Glucose [Mass/volume] in Serum or Plasma [2345-7] 10/13/2024 09:54 AM 115 mg/dL N Blood chemistry[[id number]] Glucose [Mass/volume] in Serum or Plasma [2345-7] 10/12/2024 12:29 PM 245 mg/dL N Blood chemistry[[id number]] Glucose [Mass/volume] in Serum or Plasma [2345-7] 10/12/2024 09:05 AM 109 mg/dL N Blood chemistry[[id number]] Glucose [Mass/volume] in Serum or Plasma [2345-7] 10/12/2024 08:56 AM 109 mg/dL N Blood chemistry[[id number]] Glucose [Mass/volume] in Serum or Plasma [2345-7] 10/12/2024 03:18 PM 107 mg/dL N Blood chemistry[[id number]] Glucose [Mass/volume] in Serum or Plasma [2345-7] 10/12/2024 03:16 PM 107 mg/dL N Blood chemistry[[id number]] Glucose [Mass/volume] in Serum or Plasma [2345-7] 10/12/2024 11:57 AM 90 mg/dL N Blood chemistry[[id number]] Glucose [Mass/volume] in Serum or Plasma [2345-7] 10/12/2024 10:32 AM 99 mg/dL N Blood chemistry[[id number]] Glucose [Mass/volume] in Serum or Plasma [2345-7] 10/11/2024 05:12 PM 137 mg/dL N Blood chemistry[[id number]] Glucose [Mass/volume] in Serum or Plasma [2345-7] 10/11/2024 04:20 PM 200 mg/dL N Blood chemistry[[id number]] Glucose [Mass/volume] in Serum or Plasma [2345-7] 10/11/2024 01:22 PM 222 mg/dL N Blood chemistry[[id number]] Glucose [Mass/volume] in Serum or Plasma [2345-7] 10/11/2024 10:34 AM 85 mg/dL N Blood chemistry[[id number]] Glucose [Mass/volume] in Serum or Plasma [2345-7] 10/11/2024 11:10 AM 119 mg/dL N Blood chemistry[[id number]] Glucose [Mass/volume] in Serum or Plasma [2345-7] 10/10/2024 01:41 PM 236 mg/dL N Blood chemistry[[id number]] Glucose [Mass/volume] in Serum or Plasma [2345-7] 10/10/2024 10:04 AM 170 mg/dL N Blood chemistry[[id number]] Glucose [Mass/volume] in Serum or Plasma [2345-7] 10/10/2024 05:59 PM 125 mg/dL N Blood chemistry[[id number]] Glucose [Mass/volume] in Serum or Plasma [2345-7] 10/10/2024 02:01 PM 132 mg/dL N Blood chemistry[[id number]] Glucose [Mass/volume] in Serum or Plasma [2345-7] 10/10/2024 11:15 AM 157 mg/dL N Blood chemistry[[id number]] Glucose [Mass/volume] in Serum or Plasma [2345-7] 10/09/2024 12:45 PM 337 mg/dL N Blood chemistry[[id number]] Glucose [Mass/volume] in Serum or Plasma [2345-7] 10/09/2024 11:22 AM 167 mg/dL N Blood chemistry[[id number]] Glucose [Mass/volume] in Serum or Plasma [2345-7] 10/09/2024 02:57 PM 142 mg/dL N Blood chemistry[[id number]] Glucose [Mass/volume] in Serum or Plasma [2345-7] 10/09/2024 11:11 AM 142 mg/dL N Blood chemistry[[id number]] Glucose [Mass/volume] in Serum or Plasma [2345-7] 10/09/2024 07:23 AM 123 mg/dL N Blood chemistry[[id number]] Glucose [Mass/volume] in Serum or Plasma [2345-7] 10/08/2024 12:39 PM 219 mg/dL N Blood chemistry[[id number]] Glucose [Mass/volume] in Serum or Plasma [2345-7] 10/08/2024 10:04 AM 259 mg/dL N Blood chemistry[[id number]] Glucose [Mass/volume] in Serum or Plasma [2345-7] 10/08/2024 05:29 PM 109 mg/dL N Glucose [Mass/volume] in Serum or Plasma [2345-7] 10/08/2024 05:29 PM 109 mg/dL N Blood chemistry[[id number]] Glucose [Mass/volume] in Serum or Plasma [2345-7] 10/08/2024 11:19 AM 105 mg/dL N Blood chemistry[[id number]] Glucose [Mass/volume] in Serum or Plasma [2345-7] 10/07/2024 12:39 PM 188 mg/dL N Blood chemistry[[id number]] Glucose [Mass/volume] in Serum or Plasma [2345-7] 10/07/2024 11:24 AM 169 mg/dL N Blood chemistry[[id number]] Glucose [Mass/volume] in Serum or Plasma [2345-7] 10/07/2024 06:16 PM 96 mg/dL N Blood chemistry[[id number]] Glucose [Mass/volume] in Serum or Plasma [2345-7] 10/07/2024 01:49 PM 65 mg/dL N Blood chemistry[[id number]] Glucose [Mass/volume] in Serum or Plasma [2345-7] 10/06/2024 06:12 PM 91 mg/dL N Blood chemistry[[id number]] Glucose [Mass/volume] in Serum or Plasma [2345-7] 10/06/2024 01:00 PM 75 mg/dL N Blood chemistry[[id number]] Glucose [Mass/volume] in Serum or Plasma [2345-7] 10/06/2024 12:46 PM 270 mg/dL N Blood chemistry[[id number]] Glucose [Mass/volume] in Serum or Plasma [2345-7] 10/06/2024 09:59 AM 148 mg/dL N Blood chemistry[[id number]] Glucose [Mass/volume] in Serum or Plasma [2345-7] 10/06/2024 11:02 AM 68 mg/dL N Blood chemistry[[id number]] Glucose [Mass/volume] in Serum or Plasma [2345-7] 10/05/2024 01:45 PM 223 mg/dL N Blood chemistry[[id number]] Glucose [Mass/volume] in Serum or Plasma [2345-7] 10/05/2024 10:53 AM 189 mg/dL N Blood chemistry[[id number]] Glucose [Mass/volume] in Serum or Plasma [2345-7] 10/05/2024 06:12 PM 150 mg/dL N Blood chemistry[[id number]] Glucose [Mass/volume] in Serum or Plasma [2345-7] 10/05/2024 11:18 AM 100 mg/dL N Blood chemistry[[id number]] Glucose [Mass/volume] in Serum or Plasma [2345-7] 10/04/2024 03:19 PM 362 mg/dL N Blood chemistry[[id number]] Glucose [Mass/volume] in Serum or Plasma [2345-7] 10/04/2024 10:26 AM 279 mg/dL N Blood chemistry[[id number]] Glucose [Mass/volume] in Serum or Plasma [2345-7] 10/04/2024 04:28 PM 208 mg/dL N Blood chemistry[[id number]] Glucose [Mass/volume] in Serum or Plasma [2345-7] 10/04/2024 11:39 AM 190 mg/dL N Blood chemistry[[id number]] Glucose [Mass/volume] in Serum or Plasma [2345-7] 10/03/2024 02:21 PM 274 mg/dL N Blood chemistry[[id number]] Glucose [Mass/volume] in Serum or Plasma [2345-7] 10/03/2024 02:06 PM 140 mg/dL N Blood chemistry[[id number]] Glucose [Mass/volume] in Serum or Plasma [2345-7] 10/03/2024 10:57 AM 221 mg/dL N Blood chemistry[[id number]] Glucose [Mass/volume] in Serum or Plasma [2345-7] 10/03/2024 09:44 AM 137 mg/dL N Blood chemistry[[id number]] Glucose [Mass/volume] in Serum or Plasma [2345-7] 10/02/2024 03:03 PM 285 mg/dL N Blood chemistry[[id number]] Glucose [Mass/volume] in Serum or Plasma [2345-7] 10/02/2024 11:31 AM 143 mg/dL N Blood chemistry[[id number]] Glucose [Mass/volume] in Serum or Plasma [2345-7] 10/02/2024 06:34 PM 217 mg/dL N Blood chemistry[[id number]] Glucose [Mass/volume] in Serum or Plasma [2345-7] 10/02/2024 01:55 PM 220 mg/dL N Blood chemistry[[id number]] Glucose [Mass/volume] in Serum or Plasma [2345-7] 10/01/2024 06:07 PM 171 mg/dL N Blood chemistry[[id number]] Glucose [Mass/volume] in Serum or Plasma [2345-7] 10/01/2024 12:58 PM 145 mg/dL N Blood chemistry[[id number]] Glucose [Mass/volume] in Serum or Plasma [2345-7] 10/01/2024 12:39 PM 259 mg/dL N Blood chemistry[[id number]] Glucose [Mass/volume] in Serum or Plasma [2345-7] 10/01/2024 11:09 AM 134 mg/dL N Blood chemistry[[id number]] Glucose [Mass/volume] in Serum or Plasma [2345-7] 10/01/2024 11:01 AM 145 mg/dL N Blood chemistry[[id number]] Glucose [Mass/volume] in Serum or Plasma [2345-7] 09/30/2024 12:51 PM 355 mg/dL N Blood chemistry[[id number]] Glucose [Mass/volume] in Serum or Plasma [2345-7] 09/30/2024 11:41 AM 169 mg/dL N Blood chemistry[[id number]] Glucose [Mass/volume] in Serum or Plasma [2345-7] 09/30/2024 02:42 PM 157 mg/dL N Blood chemistry[[id number]] Glucose [Mass/volume] in Serum or Plasma [2345-7] 09/30/2024 07:08 AM 146 mg/dL N Blood chemistry[[id number]] Glucose [Mass/volume] in Serum or Plasma [2345-7] 09/29/2024 04:24 PM 145 mg/dL N Blood chemistry[[id number]] Glucose [Mass/volume] in Serum or Plasma [2345-7] 09/29/2024 03:01 PM 83 mg/dL N Blood chemistry[[id number]] Glucose [Mass/volume] in Serum or Plasma [2345-7] 09/29/2024 12:58 PM 434 mg/dL N Blood chemistry[[id number]] Glucose [Mass/volume] in Serum or Plasma [2345-7] 09/29/2024 11:28 AM 79 mg/dL N Blood chemistry[[id number]] Glucose [Mass/volume] in Serum or Plasma [2345-7] 09/29/2024 10:21 AM 147 mg/dL N Blood chemistry[[id number]] Glucose [Mass/volume] in Serum or Plasma [2345-7] 09/28/2024 01:19 PM 327 mg/dL N Blood chemistry[[id number]] Glucose [Mass/volume] in Serum or Plasma [2345-7] 09/28/2024 10:52 AM 199 mg/dL N Blood chemistry[[id number]] Glucose [Mass/volume] in Serum or Plasma [2345-7] 09/28/2024 06:39 PM 86 mg/dL N Blood chemistry[[id number]] Glucose [Mass/volume] in Serum or Plasma [2345-7] 09/28/2024 01:31 PM 78 mg/dL N Blood chemistry[[id number]] Glucose [Mass/volume] in Serum or Plasma [2345-7] 09/28/2024 11:04 AM 47 mg/dL N Blood chemistry[[id number]] Glucose [Mass/volume] in Serum or Plasma [2345-7] 09/27/2024 06:45 PM 146 mg/dL N Blood chemistry[[id number]] Glucose [Mass/volume] in Serum or Plasma [2345-7] 09/27/2024 06:42 PM 146 mg/dL N Glucose [Mass/volume] in Serum or Plasma [2345-7] 09/27/2024 06:42 PM 75 mg/dL N Blood chemistry[[id number]] Glucose [Mass/volume] in Serum or Plasma [2345-7] 09/27/2024 01:26 PM 406 mg/dL N Blood chemistry[[id number]] Glucose [Mass/volume] in Serum or Plasma [2345-7] 09/27/2024 11:15 AM 112 mg/dL N Blood chemistry[[id number]] Glucose [Mass/volume] in Serum or Plasma [2345-7] 09/26/2024 02:03 PM 243 mg/dL N Blood chemistry[[id number]] Glucose [Mass/volume] in Serum or Plasma [2345-7] 09/26/2024 11:28 AM 261 mg/dL N Blood chemistry[[id number]] Glucose [Mass/volume] in Serum or Plasma [2345-7] 09/26/2024 06:16 PM 195 mg/dL N Blood chemistry[[id number]] Glucose [Mass/volume] in Serum or Plasma [2345-7] 09/26/2024 01:14 PM 116 mg/dL N Blood chemistry[[id number]] Glucose [Mass/volume] in Serum or Plasma [2345-7] 09/26/2024 01:09 PM 116 mg/dL N Blood chemistry[[id number]] Glucose [Mass/volume] in Serum or Plasma [2345-7] 09/25/2024 12:28 PM 203 mg/dL N Blood chemistry[[id number]] Glucose [Mass/volume] in Serum or Plasma [2345-7] 09/25/2024 05:51 PM 158 mg/dL N Blood chemistry[[id number]] Glucose [Mass/volume] in Serum or Plasma [2345-7] 09/25/2024 01:11 PM 107 mg/dL N Blood chemistry[[id number]] Glucose [Mass/volume] in Serum or Plasma [2345-7] 09/24/2024 01:18 PM 306 mg/dL N Blood chemistry[[id number]] Glucose [Mass/volume] in Serum or Plasma [2345-7] 09/24/2024 12:03 PM 176 mg/dL N Blood chemistry[[id number]] Glucose [Mass/volume] in Serum or Plasma [2345-7] 09/24/2024 05:29 PM 189 mg/dL N Blood chemistry[[id number]] Glucose [Mass/volume] in Serum or Plasma [2345-7] 09/24/2024 02:02 PM 98 mg/dL N Blood chemistry[[id number]] Glucose [Mass/volume] in Serum or Plasma [2345-7] 09/23/2024 01:03 PM 231 mg/dL N Blood chemistry[[id number]] Glucose [Mass/volume] in Serum or Plasma [2345-7] 09/23/2024 09:30 AM 247 mg/dL N Blood chemistry[[id number]] Glucose [Mass/volume] in Serum or Plasma [2345-7] 09/23/2024 09:29 AM 247 mg/dL N Blood chemistry[[id number]] Glucose [Mass/volume] in Serum or Plasma [2345-7] 09/23/2024 01:20 PM 57 mg/dL N Blood chemistry[[id number]] Glucose [Mass/volume] in Serum or Plasma [2345-7] 09/23/2024 07:47 AM 93 mg/dL N Blood chemistry[[id number]] Glucose [Mass/volume] in Serum or Plasma [2345-7] 09/22/2024 06:14 PM 94 mg/dL N Blood chemistry[[id number]] Glucose [Mass/volume] in Serum or Plasma [2345-7] 09/22/2024 01:44 PM 166 mg/dL N Blood chemistry[[id number]] Glucose [Mass/volume] in Serum or Plasma [2345-7] 09/22/2024 01:38 PM 110 mg/dL N Blood chemistry[[id number]] Glucose [Mass/volume] in Serum or Plasma [2345-7] 09/22/2024 10:25 AM 81 mg/dL N Blood chemistry[[id number]] Glucose [Mass/volume] in Serum or Plasma [2345-7] 09/21/2024 01:43 PM 183 mg/dL N Blood chemistry[[id number]] Glucose [Mass/volume] in Serum or Plasma [2345-7] 09/21/2024 11:46 AM 99 mg/dL N Blood chemistry[[id number]] Glucose [Mass/volume] in Serum or Plasma [2345-7] 09/21/2024 02:25 PM 105 mg/dL N Blood chemistry[[id number]] Glucose [Mass/volume] in Serum or Plasma [2345-7] 09/21/2024 11:45 AM 134 mg/dL N Blood chemistry[[id number]] Glucose [Mass/volume] in Serum or Plasma [2345-7] 09/21/2024 08:27 AM 85 mg/dL N Blood chemistry[[id number]] Glucose [Mass/volume] in Serum or Plasma [2345-7] 09/20/2024 05:22 PM 94 mg/dL N Blood chemistry[[id number]] Glucose [Mass/volume] in Serum or Plasma [2345-7] 09/20/2024 01:35 PM 217 mg/dL N Blood chemistry[[id number]] Glucose [Mass/volume] in Serum or Plasma [2345-7] 09/20/2024 01:08 PM 87 mg/dL N Blood chemistry[[id number]] Glucose [Mass/volume] in Serum or Plasma [2345-7] 09/20/2024 11:27 AM 114 mg/dL N Blood chemistry[[id number]] Glucose [Mass/volume] in Serum or Plasma [2345-7] 09/19/2024 02:27 PM 200 mg/dL N Blood chemistry[[id number]] Glucose [Mass/volume] in Serum or Plasma [2345-7] 09/19/2024 11:01 AM 145 mg/dL N Blood chemistry[[id number]] Glucose [Mass/volume] in Serum or Plasma [2345-7] 09/19/2024 05:57 PM 137 mg/dL N Blood chemistry[[id number]] Glucose [Mass/volume] in Serum or Plasma [2345-7] 09/19/2024 02:26 PM 104 mg/dL N Blood chemistry[[id number]] Glucose [Mass/volume] in Serum or Plasma [2345-7] 09/18/2024 05:10 PM 155 mg/dL N Blood chemistry[[id number]] Glucose [Mass/volume] in Serum or Plasma [2345-7] 09/18/2024 02:29 PM 81 mg/dL N Blood chemistry[[id number]] Glucose [Mass/volume] in Serum or Plasma [2345-7] 09/18/2024 01:54 PM 297 mg/dL N Blood chemistry[[id number]] Glucose [Mass/volume] in Serum or Plasma [2345-7] 09/18/2024 11:33 AM 157 mg/dL N Blood chemistry[[id number]] Glucose [Mass/volume] in Serum or Plasma [2345-7] 09/17/2024 05:00 PM 134 mg/dL N Blood chemistry[[id number]] Glucose [Mass/volume] in Serum or Plasma [2345-7] 09/17/2024 02:52 PM 141 mg/dL N Blood chemistry[[id number]] Glucose [Mass/volume] in Serum or Plasma [2345-7] 09/17/2024 12:43 PM 351 mg/dL N Blood chemistry[[id number]] Glucose [Mass/volume] in Serum or Plasma [2345-7] 09/17/2024 11:06 AM 114 mg/dL N Blood chemistry[[id number]] Glucose [Mass/volume] in Serum or Plasma [2345-7] 09/17/2024 11:00 AM 179 mg/dL N Blood chemistry[[id number]] Glucose [Mass/volume] in Serum or Plasma [2345-7] 09/16/2024 06:00 PM 155 mg/dL N Blood chemistry[[id number]] Glucose [Mass/volume] in Serum or Plasma [2345-7] 09/16/2024 01:10 PM 102 mg/dL N Blood chemistry[[id number]] Glucose [Mass/volume] in Serum or Plasma [2345-7] 09/16/2024 01:09 PM 102 mg/dL N Blood chemistry[[id number]] Glucose [Mass/volume] in Serum or Plasma [2345-7] 09/16/2024 12:33 PM 208 mg/dL N Blood chemistry[[id number]] Glucose [Mass/volume] in Serum or Plasma [2345-7] 09/16/2024 10:37 AM 143 mg/dL N Blood chemistry[[id number]] Glucose [Mass/volume] in Serum or Plasma [2345-7] 09/15/2024 02:23 PM 229 mg/dL N Blood chemistry[[id number]] Glucose [Mass/volume] in Serum or Plasma [2345-7] 09/15/2024 06:15 PM 119 mg/dL N Blood chemistry[[id number]] Glucose [Mass/volume] in Serum or Plasma [2345-7] 09/15/2024 12:43 PM 66 mg/dL N Blood chemistry[[id number]] Glucose [Mass/volume] in Serum or Plasma [2345-7] 09/15/2024 10:38 AM 133 mg/dL N Blood chemistry[[id number]] Glucose [Mass/volume] in Serum or Plasma [2345-7] 09/14/2024 05:59 PM 126 mg/dL N Blood chemistry[[id number]] Glucose [Mass/volume] in Serum or Plasma [2345-7] 09/14/2024 03:37 PM 81 mg/dL N Blood chemistry[[id number]] Glucose [Mass/volume] in Serum or Plasma [2345-7] 09/14/2024 01:44 PM 228 mg/dL N Blood chemistry[[id number]] Glucose [Mass/volume] in Serum or Plasma [2345-7] 09/14/2024 10:58 AM 148 mg/dL N Blood chemistry[[id number]] Glucose [Mass/volume] in Serum or Plasma [2345-7] 09/13/2024 02:31 PM 283 mg/dL N Blood chemistry[[id number]] Glucose [Mass/volume] in Serum or Plasma [2345-7] 09/13/2024 12:20 PM 141 mg/dL N Blood chemistry[[id number]] Glucose [Mass/volume] in Serum or Plasma [2345-7] 09/13/2024 06:38 PM 219 mg/dL N Blood chemistry[[id number]] Glucose [Mass/volume] in Serum or Plasma [2345-7] 09/13/2024 02:58 PM 76 mg/dL N Blood chemistry[[id number]] Glucose [Mass/volume] in Serum or Plasma [2345-7] 09/13/2024 11:24 AM 96 mg/dL N Blood chemistry[[id number]] Glucose [Mass/volume] in Serum or Plasma [2345-7] 09/12/2024 02:42 PM 238 mg/dL N Blood chemistry[[id number]] Glucose [Mass/volume] in Serum or Plasma [2345-7] 09/12/2024 06:52 PM 137 mg/dL N Blood chemistry[[id number]] Glucose [Mass/volume] in Serum or Plasma [2345-7] 09/12/2024 01:06 PM 173 mg/dL N Blood chemistry[[id number]] Glucose [Mass/volume] in Serum or Plasma [2345-7] 09/12/2024 11:22 AM 232 mg/dL N Blood chemistry[[id number]] Glucose [Mass/volume] in Serum or Plasma [2345-7] 09/12/2024 10:02 AM 202 mg/dL N Blood chemistry[[id number]] Glucose [Mass/volume] in Serum or Plasma [2345-7] 09/11/2024 12:51 PM 227 mg/dL N Blood chemistry[[id number]] Glucose [Mass/volume] in Serum or Plasma [2345-7] 09/11/2024 06:10 PM 128 mg/dL N Blood chemistry[[id number]] Glucose [Mass/volume] in Serum or Plasma [2345-7] 09/11/2024 02:05 PM 126 mg/dL N Blood chemistry[[id number]] Glucose [Mass/volume] in Serum or Plasma [2345-7] 09/11/2024 11:19 AM 144 mg/dL N Blood chemistry[[id number]] Glucose [Mass/volume] in Serum or Plasma [2345-7] 09/11/2024 11:04 AM 130 mg/dL N Blood chemistry[[id number]] Glucose [Mass/volume] in Serum or Plasma [2345-7] 09/10/2024 12:40 PM 180 mg/dL N Blood chemistry[[id number]] Glucose [Mass/volume] in Serum or Plasma [2345-7] 09/10/2024 06:11 PM 117 mg/dL N Blood chemistry[[id number]] Glucose [Mass/volume] in Serum or Plasma [2345-7] 09/10/2024 01:08 PM 118 mg/dL N Blood chemistry[[id number]] Glucose [Mass/volume] in Serum or Plasma [2345-7] 09/10/2024 11:15 AM 162 mg/dL N Blood chemistry[[id number]] Glucose [Mass/volume] in Serum or Plasma [2345-7] 09/10/2024 11:11 AM 113 mg/dL N Blood chemistry[[id number]] Glucose [Mass/volume] in Serum or Plasma [2345-7] 09/09/2024 12:56 PM 178 mg/dL N Blood chemistry[[id number]] Glucose [Mass/volume] in Serum or Plasma [2345-7] 09/09/2024 06:06 PM 87 mg/dL N Blood chemistry[[id number]] Glucose [Mass/volume] in Serum or Plasma [2345-7] 09/09/2024 01:40 PM 84 mg/dL N Blood chemistry[[id number]] Glucose [Mass/volume] in Serum or Plasma [2345-7] 09/09/2024 10:34 AM 119 mg/dL N Blood chemistry[[id number]] Glucose [Mass/volume] in Serum or Plasma [2345-7] 09/08/2024 06:07 PM 82 mg/dL N Blood chemistry[[id number]] Glucose [Mass/volume] in Serum or Plasma [2345-7] 09/08/2024 03:16 PM 51 mg/dL N Blood chemistry[[id number]] Glucose [Mass/volume] in Serum or Plasma [2345-7] 09/08/2024 02:12 PM 278 mg/dL N Blood chemistry[[id number]] Glucose [Mass/volume] in Serum or Plasma [2345-7] 09/08/2024 11:08 AM 121 mg/dL N Blood chemistry[[id number]] Glucose [Mass/volume] in Serum or Plasma [2345-7] 09/07/2024 02:10 PM 215 mg/dL N Blood chemistry[[id number]] Glucose [Mass/volume] in Serum or Plasma [2345-7] 09/07/2024 11:25 AM 170 mg/dL N Blood chemistry[[id number]] Glucose [Mass/volume] in Serum or Plasma [2345-7] 09/07/2024 06:12 PM 110 mg/dL N Blood chemistry[[id number]] Glucose [Mass/volume] in Serum or Plasma [2345-7] 09/07/2024 02:37 PM 75 mg/dL N Blood chemistry[[id number]] Glucose [Mass/volume] in Serum or Plasma [2345-7] 09/07/2024 02:35 PM 75 mg/dL N Blood chemistry[[id number]] Glucose [Mass/volume] in Serum or Plasma [2345-7] 09/06/2024 02:13 PM 262 mg/dL N Blood chemistry[[id number]] Glucose [Mass/volume] in Serum or Plasma [2345-7] 09/06/2024 10:36 AM 171 mg/dL N Blood chemistry[[id number]] Glucose [Mass/volume] in Serum or Plasma [2345-7] 09/06/2024 06:21 PM 200 mg/dL N Blood chemistry[[id number]] Glucose [Mass/volume] in Serum or Plasma [2345-7] 09/06/2024 02:59 PM 225 mg/dL N Blood chemistry[[id number]] Glucose [Mass/volume] in Serum or Plasma [2345-7] 09/05/2024 03:45 PM 201 mg/dL N Blood chemistry[[id number]] Glucose [Mass/volume] in Serum or Plasma [2345-7] 09/05/2024 12:33 PM 177 mg/dL N Blood chemistry[[id number]] Glucose [Mass/volume] in Serum or Plasma [2345-7] 09/05/2024 03:35 PM 131 mg/dL N Glucose [Mass/volume] in Serum or Plasma [2345-7] 09/05/2024 03:35 PM 131 mg/dL N Blood chemistry[[id number]] Glucose [Mass/volume] in Serum or Plasma [2345-7] 09/05/2024 07:10 AM 169 mg/dL N Blood chemistry[[id number]] Glucose [Mass/volume] in Serum or Plasma [2345-7] 09/04/2024 05:38 PM 185 mg/dL N Blood chemistry[[id number]] Glucose [Mass/volume] in Serum or Plasma [2345-7] 09/04/2024 03:07 PM 52 mg/dL N Blood chemistry[[id number]] Glucose [Mass/volume] in Serum or Plasma [2345-7] 09/04/2024 01:31 PM 52 mg/dL N Blood chemistry[[id number]] Glucose [Mass/volume] in Serum or Plasma [2345-7] 09/04/2024 11:09 AM 119 mg/dL N Blood chemistry[[id number]] Glucose [Mass/volume] in Serum or Plasma [2345-7] 09/04/2024 11:08 AM 62 mg/dL N Blood chemistry[[id number]] Glucose [Mass/volume] in Serum or Plasma [2345-7] 09/04/2024 11:07 AM 119 mg/dL N Glucose [Mass/volume] in Serum or Plasma [2345-7] 09/04/2024 11:07 AM 62 mg/dL N Blood chemistry[[id number]] Glucose [Mass/volume] in Serum or Plasma [2345-7] 09/03/2024 02:26 PM 210 mg/dL N Blood chemistry[[id number]] Glucose [Mass/volume] in Serum or Plasma [2345-7] 09/03/2024 05:05 PM 115 mg/dL N Blood chemistry[[id number]] Glucose [Mass/volume] in Serum or Plasma [2345-7] 09/03/2024 05:03 PM 57 mg/dL N Blood chemistry[[id number]] Glucose [Mass/volume] in Serum or Plasma [2345-7] 09/03/2024 12:26 PM 174 mg/dL N Blood chemistry[[id number]] Glucose [Mass/volume] in Serum or Plasma [2345-7] 09/03/2024 08:36 AM 115 mg/dL N Blood chemistry[[id number]] Glucose [Mass/volume] in Serum or Plasma [2345-7] 09/02/2024 01:01 PM 148 mg/dL N Blood chemistry[[id number]] Glucose [Mass/volume] in Serum or Plasma [2345-7] 09/02/2024 06:38 PM 201 mg/dL N Blood chemistry[[id number]] Glucose [Mass/volume] in Serum or Plasma [2345-7] 09/02/2024 12:36 PM 174 mg/dL N Blood chemistry[[id number]] Glucose [Mass/volume] in Serum or Plasma [2345-7] 09/02/2024 11:10 AM 87 mg/dL N Blood chemistry[[id number]] Glucose [Mass/volume] in Serum or Plasma [2345-7] 09/01/2024 01:27 PM 187 mg/dL N Blood chemistry[[id number]] Glucose [Mass/volume] in Serum or Plasma [2345-7] 09/01/2024 05:43 PM 86 mg/dL N Blood chemistry[[id number]] Glucose [Mass/volume] in Serum or Plasma [2345-7] 09/01/2024 01:06 PM 73 mg/dL N Blood chemistry[[id number]] Glucose [Mass/volume] in Serum or Plasma [2345-7] 09/01/2024 12:44 PM 268 mg/dL N Glucose [Mass/volume] in Serum or Plasma [2345-7] 09/01/2024 12:44 PM 268 mg/dL N Blood chemistry[[id number]] Glucose [Mass/volume] in Serum or Plasma [2345-7] 08/31/2024 05:32 PM 135 mg/dL N Glucose [Mass/volume] in Serum or Plasma [2345-7] 08/31/2024 05:32 PM 135 mg/dL N Blood chemistry[[id number]] Glucose [Mass/volume] in Serum or Plasma [2344-7] 08/31/2024 05:07 PM 67 mg/dL N Blood chemistry[[id number]] Glucose [Mass/volume] in Serum or Plasma [2345-7] 08/31/2024 03:04 PM 290 mg/dL N Blood chemistry[[id number]] Glucose [Mass/volume] in Serum or Plasma [2345-7] 08/31/2024 12:42 PM 133 mg/dL N Blood chemistry[[id number]] Glucose [Mass/volume] in Serum or Plasma [2345-7] 08/30/2024 02:23 PM 250 mg/dL N Blood chemistry[[id number]] Glucose [Mass/volume] in Serum or Plasma [2345-7] 08/30/2024 10:25 AM 117 mg/dL N Blood chemistry[[id number]] Glucose [Mass/volume] in Serum or Plasma [2345-7] 08/30/2024 04:59 PM 174 mg/dL N Blood chemistry[[id number]] Glucose [Mass/volume] in Serum or Plasma [2345-7] 08/30/2024 01:49 PM 127 mg/dL N Blood chemistry[[id number]] Glucose [Mass/volume] in Serum or Plasma [2345-7] 08/29/2024 03:00 PM 252 mg/dL N Blood chemistry[[id number]] Glucose [Mass/volume] in Serum or Plasma [2345-7] 08/29/2024 05:33 PM 232 mg/dL N Blood chemistry[[id number]] Glucose [Mass/volume] in Serum or Plasma [2345-7] 08/29/2024 05:07 PM 232 mg/dL N Blood chemistry[[id number]] Glucose [Mass/volume] in Serum or Plasma [2345-7] 08/29/2024 03:53 PM 78 mg/dL N Blood chemistry[[id number]] Glucose [Mass/volume] in Serum or Plasma [2345-7] 08/29/2024 11:08 AM 196 mg/dL N Blood chemistry[[id number]] Glucose [Mass/volume] in Serum or Plasma [2345-7] 08/29/2024 10:55 AM 258 mg/dL N Blood chemistry[[id number]] Glucose [Mass/volume] in Serum or Plasma [2345-7] 08/28/2024 01:12 PM 280 mg/dL N Blood chemistry[[id number]] Glucose [Mass/volume] in Serum or Plasma [2345-7] 08/28/2024 06:24 PM 206 mg/dL N Blood chemistry[] Glucose [Mass/volume] in Serum or Plasma [2345-7] 08/28/2024 03:51 PM 166 mg/dL N Blood chemistry[] Glucose [Mass/volume] in Serum or Plasma [2345-7] 08/28/2024 11:26 AM 109 mg/dL N Blood chemistry[[id number]] Glucose [Mass/volume] in Serum or Plasma [2345-7] 08/28/2024 11:15 AM 199 mg/dL N Blood chemistry[[id number]] Glucose [Mass/volume] in Serum or Plasma [2345-7] 08/27/2024 12:00 PM 217 mg/dL N Blood chemistry[[id number]] Glucose [Mass/volume] in Serum or Plasma [2345-7] 08/27/2024 06:10 PM 131 mg/dL N Blood chemistry[[id number]] Glucose [Mass/volume] in Serum or Plasma [2345-7] 08/27/2024 01:33 PM 133 mg/dL N Blood chemistry[[id number]] Glucose [Mass/volume] in Serum or Plasma [2345-7] 08/27/2024 11:09 AM 116 mg/dL N Blood chemistry[[id number]] Glucose [Mass/volume] in Serum or Plasma [2345-7] 08/27/2024 09:45 AM 185 mg/dL N Blood chemistry[[id number]] Glucose [Mass/volume] in Serum or Plasma [2345-7] 08/26/2024 12:48 PM 143 mg/dL N Blood chemistry[[id number]] Glucose [Mass/volume] in Serum or Plasma [2345-7] 08/26/2024 05:59 PM 101 mg/dL N Blood chemistry[[id number]] Glucose [Mass/volume] in Serum or Plasma [2345-7] 08/26/2024 01:15 PM 84 mg/dL N Blood chemistry[[id number]] Glucose [Mass/volume] in Serum or Plasma [2345-7] 08/26/2024 10:28 AM 207 mg/dL N Blood chemistry[[id number]] Glucose [Mass/volume] in Serum or Plasma [2345-7] 08/25/2024 05:32 PM 231 mg/dL N Blood chemistry[[id number]] Glucose [Mass/volume] in Serum or Plasma [2345-7] 08/25/2024 01:41 PM 104 mg/dL N Blood chemistry[[id number]] Glucose [Mass/volume] in Serum or Plasma [2345-7] 08/25/2024 01:35 PM 267 mg/dL N Blood chemistry[[id number]] Glucose [Mass/volume] in Serum or Plasma [2345-7] 08/25/2024 10:29 AM 296 mg/dL N Blood chemistry[[id number]] Glucose [Mass/volume] in Serum or Plasma [2345-7] 08/24/2024 01:08 PM 146 mg/dL N Blood chemistry[[id number]] Glucose [Mass/volume] in Serum or Plasma [2345-7] 08/24/2024 11:26 AM 92 mg/dL N Blood chemistry[[id number]] Glucose [Mass/volume] in Serum or Plasma [2345-7] 08/24/2024 06:10 PM 99 mg/dL N Blood chemistry[[id number]] Glucose [Mass/volume] in Serum or Plasma [2345-7] 08/24/2024 02:15 PM 52 mg/dL N Blood chemistry[[id number]] Glucose [Mass/volume] in Serum or Plasma [2345-7] 08/23/2024 05:20 PM 113 mg/dL N Blood chemistry[[id number]] Glucose [Mass/volume] in Serum or Plasma [2345-7] 08/23/2024 02:26 PM 121 mg/dL N Blood chemistry[[id number]] Glucose [Mass/volume] in Serum or Plasma [2345-7] 08/23/2024 02:16 PM 58 mg/dL N Blood chemistry[[id number]] Glucose [Mass/volume] in Serum or Plasma [2345-7] 08/23/2024 11:34 AM 109 mg/dL N Blood chemistry[[id number]] Glucose [Mass/volume] in Serum or Plasma [2345-7] 08/22/2024 05:06 PM 162 mg/dL N Blood chemistry[[id number]] Glucose [Mass/volume] in Serum or Plasma [2345-7] 08/22/2024 05:04 PM 162 mg/dL N Blood chemistry[[id number]] Glucose [Mass/volume] in Serum or Plasma [2345-7] 08/22/2024 03:08 PM 206 mg/dL N Blood chemistry[[id number]] Glucose [Mass/volume] in Serum or Plasma [2345-7] 08/22/2024 02:44 PM 156 mg/dL N Blood chemistry[[id number]] Glucose [Mass/volume] in Serum or Plasma [2345-7] 08/22/2024 01:19 PM 156 mg/dL N Blood chemistry[[id number]] Glucose [Mass/volume] in Serum or Plasma [2345-7] 08/22/2024 11:07 AM 171 mg/dL N Blood chemistry[[id number]] Glucose [Mass/volume] in Serum or Plasma [2345-7] 08/22/2024 10:47 AM 179 mg/dL N Blood chemistry[[id number]] Glucose [Mass/volume] in Serum or Plasma [2345-7] 08/21/2024 02:18 PM 225 mg/dL N Blood chemistry[[id number]] Glucose [Mass/volume] in Serum or Plasma [2345-7] 08/21/2024 03:12 PM 147 mg/dL N Blood chemistry[[id number]] Glucose [Mass/volume] in Serum or Plasma [2345-7] 08/21/2024 11:10 AM 104 mg/dL N Blood chemistry[[id number]] Glucose [Mass/volume] in Serum or Plasma [2345-7] 08/21/2024 11:03 AM 157 mg/dL N Blood chemistry[[id number]] Glucose [Mass/volume] in Serum or Plasma [2345-7] 08/21/2024 07:14 AM 230 mg/dL N Blood chemistry[[id number]] Glucose [Mass/volume] in Serum or Plasma [2345-7] 08/20/2024 12:54 PM 121 mg/dL N Blood chemistry[[id number]] Glucose [Mass/volume] in Serum or Plasma [2345-7] 08/20/2024 05:28 PM 82 mg/dL N Blood chemistry[[id number]] Glucose [Mass/volume] in Serum or Plasma [2345-7] 08/20/2024 03:00 PM 99 mg/dL N Blood chemistry[[id number]] Glucose [Mass/volume] in Serum or Plasma [2345-7] 08/20/2024 11:36 AM 77 mg/dL N Blood chemistry[[id number]] Glucose [Mass/volume] in Serum or Plasma [2345-7] 08/20/2024 11:04 AM 100 mg/dL N Blood chemistry[[id number]] Glucose [Mass/volume] in Serum or Plasma [2345-7] 08/19/2024 05:41 PM 121 mg/dL N Blood chemistry[[id number]] Glucose [Mass/volume] in Serum or Plasma [2345-7] 08/19/2024 01:49 PM 212 mg/dL N Blood chemistry[[id number]] Glucose [Mass/volume] in Serum or Plasma [2345-7] 08/19/2024 12:33 PM 301 mg/dL N Blood chemistry[[id number]] Glucose [Mass/volume] in Serum or Plasma [2345-7] 08/19/2024 09:34 AM 183 mg/dL N Blood chemistry[[id number]] Glucose [Mass/volume] in Serum or Plasma [2345-7] 08/18/2024 12:47 PM 164 mg/dL N Blood chemistry[[id number]] Glucose [Mass/volume] in Serum or Plasma [2345-7] 08/18/2024 05:31 PM 92 mg/dL N Blood chemistry[[id number]] Glucose [Mass/volume] in Serum or Plasma [2345-7] 08/18/2024 01:20 PM 70 mg/dL N Blood chemistry[[id number]] Glucose [Mass/volume] in Serum or Plasma [2345-7] 08/18/2024 10:00 AM 76 mg/dL N Blood chemistry[[id number]] Glucose [Mass/volume] in Serum or Plasma [2345-7] 08/17/2024 02:14 PM 90 mg/dL N Blood chemistry[[id number]] Glucose [Mass/volume] in Serum or Plasma [2345-7] 08/17/2024 01:43 PM 68 mg/dL N Blood chemistry[[id number]] Glucose [Mass/volume] in Serum or Plasma [2345-7] 08/17/2024 10:56 AM 71 mg/dL N Blood chemistry[[id number]] Glucose [Mass/volume] in Serum or Plasma [2345-7] 08/17/2024 07:27 AM 127 mg/dL N Blood chemistry[[id number]] Glucose [Mass/volume] in Serum or Plasma [2345-7] 08/17/2024 07:26 AM 127 mg/dL N Blood chemistry[[id number]] Glucose [Mass/volume] in Serum or Plasma [2345-7] 08/16/2024 01:53 PM 206 mg/dL N Blood chemistry[[id number]] Glucose [Mass/volume] in Serum or Plasma [2345-7] 08/16/2024 10:31 AM 97 mg/dL N Blood chemistry[[id number]] Glucose [Mass/volume] in Serum or Plasma [2345-7] 08/16/2024 05:26 PM 214 mg/dL N Blood chemistry[[id number]] Glucose [Mass/volume] in Serum or Plasma [2345-7] 08/16/2024 01:04 PM 86 mg/dL N Blood chemistry[[id number]] Glucose [Mass/volume] in Serum or Plasma [2345-7] 08/15/2024 01:26 PM 267 mg/dL N Blood chemistry[[id number]] Glucose [Mass/volume] in Serum or Plasma [2345-7] 08/15/2024 06:00 PM 272 mg/dL N Blood chemistry[[id number]] Glucose [Mass/volume] in Serum or Plasma [2345-7] 08/15/2024 02:33 PM 193 mg/dL N Blood chemistry[[id number]] Glucose [Mass/volume] in Serum or Plasma [2345-7] 08/15/2024 11:16 AM 171 mg/dL N Blood chemistry[[id number]] Glucose [Mass/volume] in Serum or Plasma [2345-7] 08/15/2024 10:28 AM 178 mg/dL N Blood chemistry[[id number]] Glucose [Mass/volume] in Serum or Plasma [2345-7] 08/14/2024 12:42 PM 208 mg/dL N Blood chemistry[[id number]] Glucose [Mass/volume] in Serum or Plasma [2345-7] 08/14/2024 02:02 PM 182 mg/dL N Blood chemistry[[id number]] Glucose [Mass/volume] in Serum or Plasma [2345-7] 08/14/2024 02:01 PM 184 mg/dL N Blood chemistry[[id number]] Glucose [Mass/volume] in Serum or Plasma [2345-7] 08/14/2024 11:08 AM 175 mg/dL N Blood chemistry[[id number]] Glucose [Mass/volume] in Serum or Plasma [2345-7] 08/14/2024 09:22 AM 191 mg/dL N Blood chemistry[[id number]] Glucose [Mass/volume] in Serum or Plasma [2345-7] 08/13/2024 12:55 PM 222 mg/dL N Blood chemistry[[id number]] Glucose [Mass/volume] in Serum or Plasma [2345-7] 08/13/2024 01:33 PM 160 mg/dL N Blood chemistry[[id number]] Glucose [Mass/volume] in Serum or Plasma [2345-7] 08/13/2024 10:59 AM 137 mg/dL N Blood chemistry[[id number]] Glucose [Mass/volume] in Serum or Plasma [2345-7] 08/13/2024 10:41 AM 84 mg/dL N Glucose [Mass/volume] in Serum or Plasma [2345-7] 08/13/2024 10:41 AM 84 mg/dL N Blood chemistry[[id number]] Glucose [Mass/volume] in Serum or Plasma [2345-7] 08/13/2024 08:37 AM 91 mg/dL N Blood chemistry[[id number]] Glucose [Mass/volume] in Serum or Plasma [2345-7] 08/12/2024 06:08 PM 89 mg/dL N Blood chemistry[[id number]] Glucose [Mass/volume] in Serum or Plasma [2345-7] 08/12/2024 01:52 PM 113 mg/dL N Glucose [Mass/volume] in Serum or Plasma [2345-7] 08/12/2024 01:52 PM 113 mg/dL N Blood chemistry[[id number]] Glucose [Mass/volume] in Serum or Plasma [2345-7] 08/12/2024 12:37 PM 176 mg/dL N Blood chemistry[[id number]] Glucose [Mass/volume] in Serum or Plasma [2345-7] 08/12/2024 10:32 AM 88 mg/dL N Blood chemistry[[id number]] Glucose [Mass/volume] in Serum or Plasma [2345-7] 08/11/2024 01:18 PM 145 mg/dL N Blood chemistry[[id number]] Glucose [Mass/volume] in Serum or Plasma [2345-7] 08/11/2024 05:42 PM 89 mg/dL N Blood chemistry[[id number]] Glucose [Mass/volume] in Serum or Plasma [2345-7] 08/11/2024 01:41 PM 80 mg/dL N Blood chemistry[[id number]] Glucose [Mass/volume] in Serum or Plasma [2345-7] 08/11/2024 10:38 AM 100 mg/dL N Blood chemistry[[id number]] Glucose [Mass/volume] in Serum or Plasma [2345-7] 08/10/2024 03:11 PM 57 mg/dL N Blood chemistry[[id number]] Glucose [Mass/volume] in Serum or Plasma [2345-7] 08/10/2024 02:12 PM 237 mg/dL N Blood chemistry[[id number]] Glucose [Mass/volume] in Serum or Plasma [2345-7] 08/10/2024 10:57 AM 163 mg/dL N Blood chemistry[[id number]] Glucose [Mass/volume] in Serum or Plasma [2345-7] 08/10/2024 08:16 AM 108 mg/dL N Blood chemistry[[id number]] Glucose [Mass/volume] in Serum or Plasma [2345-7] 08/09/2024 02:04 PM 159 mg/dL N Blood chemistry[[id number]] Glucose [Mass/volume] in Serum or Plasma [2345-7] 08/09/2024 10:23 AM 110 mg/dL N Blood chemistry[[id number]] Glucose [Mass/volume] in Serum or Plasma [2345-7] 08/09/2024 06:36 PM 136 mg/dL N Blood chemistry[[id number]] Glucose [Mass/volume] in Serum or Plasma [2345-7] 08/09/2024 01:12 PM 119 mg/dL N Blood chemistry[[id number]] Glucose [Mass/volume] in Serum or Plasma [2345-7] 08/08/2024 01:44 PM 41 mg/dL N Blood chemistry[[id number]] Glucose [Mass/volume] in Serum or Plasma [2345-7] 08/08/2024 04:46 PM 132 mg/dL N Blood chemistry[[id number]] Glucose [Mass/volume] in Serum or Plasma [2345-7] 08/08/2024 03:15 PM 116 mg/dL N Blood chemistry[[id number]] Glucose [Mass/volume] in Serum or Plasma [2345-7] 08/08/2024 10:52 AM 176 mg/dL N Blood chemistry[[id number]] Glucose [Mass/volume] in Serum or Plasma [2345-7] 08/07/2024 02:55 PM 246 mg/dL N Blood chemistry[[id number]] Glucose [Mass/volume] in Serum or Plasma [2345-7] 08/07/2024 05:21 PM 241 mg/dL N Blood chemistry[[id number]] Glucose [Mass/volume] in Serum or Plasma [2345-7] 08/07/2024 01:58 PM 186 mg/dL N Blood chemistry[[id number]] Glucose [Mass/volume] in Serum or Plasma [2345-7] 08/07/2024 10:35 AM 191 mg/dL N Blood chemistry[[id number]] Glucose [Mass/volume] in Serum or Plasma [2345-7] 08/07/2024 10:24 AM 219 mg/dL N Blood chemistry[[id number]] Glucose [Mass/volume] in Serum or Plasma [2345-7] 08/06/2024 12:37 PM 210 mg/dL N Blood chemistry[[id number]] Glucose [Mass/volume] in Serum or Plasma [2345-7] 08/06/2024 12:12 PM 157 mg/dL N Blood chemistry[[id number]] Glucose [Mass/volume] in Serum or Plasma [2345-7] 08/06/2024 06:41 PM 165 mg/dL N Blood chemistry[[id number]] Glucose [Mass/volume] in Serum or Plasma [2345-7] 08/06/2024 02:09 PM 174 mg/dL N Blood chemistry[[id number]] Glucose [Mass/volume] in Serum or Plasma [2345-7] 08/06/2024 11:06 AM 183 mg/dL N Blood chemistry[[id number]] Glucose [Mass/volume] in Serum or Plasma [2345-7] 08/05/2024 12:55 PM 171 mg/dL N Blood chemistry[[id number]] Glucose [Mass/volume] in Serum or Plasma [2345-7] 08/05/2024 05:44 PM 165 mg/dL N Blood chemistry[[id number]] Glucose [Mass/volume] in Serum or Plasma [2345-7] 08/05/2024 01:13 PM 151 mg/dL N Blood chemistry[[id number]] Glucose [Mass/volume] in Serum or Plasma [2345-7] 08/05/2024 11:07 AM 166 mg/dL N Blood chemistry[[id number]] Glucose [Mass/volume] in Serum or Plasma [2345-7] 08/05/2024 10:53 AM 191 mg/dL N Blood chemistry[[id number]] Glucose [Mass/volume] in Serum or Plasma [2345-7] 08/04/2024 01:01 PM 195 mg/dL N Blood chemistry[[id number]] Glucose [Mass/volume] in Serum or Plasma [2345-7] 08/04/2024 05:59 PM 93 mg/dL N Blood chemistry[[id number]] Glucose [Mass/volume] in Serum or Plasma [2345-7] 08/04/2024 01:45 PM 56 mg/dL N Blood chemistry[[id number]] Glucose [Mass/volume] in Serum or Plasma [2345-7] 08/04/2024 01:41 PM 56 mg/dL N Blood chemistry[[id number]] Glucose [Mass/volume] in Serum or Plasma [2345-7] 08/04/2024 11:12 AM 141 mg/dL N Glucose [Mass/volume] in Serum or Plasma [2345-7] 08/04/2024 11:12 AM 141 mg/dL N Blood chemistry[[id number]] Glucose [Mass/volume] in Serum or Plasma [2345-7] 08/03/2024 03:45 PM 144 mg/dL N Blood chemistry[[id number]] Glucose [Mass/volume] in Serum or Plasma [2345-7] 08/03/2024 02:40 PM 109 mg/dL N Blood chemistry[[id number]] Glucose [Mass/volume] in Serum or Plasma [2345-7] 08/03/2024 12:28 PM 106 mg/dL N Blood chemistry[[id number]] Glucose [Mass/volume] in Serum or Plasma [2345-7] 08/03/2024 08:59 AM 89 mg/dL N Blood chemistry[[id number]] Glucose [Mass/volume] in Serum or Plasma [2345-7] 08/03/2024 10:56 AM 109 mg/dL N Blood chemistry[[id number]] Glucose [Mass/volume] in Serum or Plasma [2345-7] 08/02/2024 01:24 PM 223 mg/dL N Blood chemistry[[id number]] Glucose [Mass/volume] in Serum or Plasma [2345-7] 08/02/2024 12:31 PM 200 mg/dL N Glucose [Mass/volume] in Serum or Plasma [2345-7] 08/02/2024 12:31 PM 200 mg/dL N Glucose [Mass/volume] in Serum or Plasma [2345-7] 08/02/2024 12:31 PM 207 mg/dL N Blood chemistry[[id number]] Glucose [Mass/volume] in Serum or Plasma [2345-7] 08/02/2024 04:11 PM 176 mg/dL N Blood chemistry[[id number]] Glucose [Mass/volume] in Serum or Plasma [2345-7] 08/02/2024 04:08 PM 176 mg/dL N Blood chemistry[[id number]] Glucose [Mass/volume] in Serum or Plasma [2345-7] 08/01/2024 01:00 PM 264 mg/dL N Blood chemistry[[id number]] Glucose [Mass/volume] in Serum or Plasma [2345-7] 08/01/2024 03:59 PM 168 mg/dL N Blood chemistry[[id number]] Glucose [Mass/volume] in Serum or Plasma [2345-7] 08/01/2024 10:49 AM 213 mg/dL N Blood chemistry[[id number]] Glucose [Mass/volume] in Serum or Plasma [2345-7] 08/01/2024 09:39 AM 198 mg/dL N Blood chemistry[[id number]] Glucose [Mass/volume] in Serum or Plasma [2345-7] 07/31/2024 05:02 PM 122 mg/dL N Blood chemistry[[id number]] Glucose [Mass/volume] in Serum or Plasma [2345-7] 07/31/2024 01:33 PM 161 mg/dL N Blood chemistry[[id number]] Glucose [Mass/volume] in Serum or Plasma [2345-7] 07/31/2024 12:30 PM 183 mg/dL N Blood chemistry[[id number]] Glucose [Mass/volume] in Serum or Plasma [2345-7] 07/31/2024 10:28 AM 197 mg/dL N Blood chemistry[[id number]] Glucose [Mass/volume] in Serum or Plasma [2345-7] 07/31/2024 11:19 AM 163 mg/dL N Blood chemistry[[id number]] Glucose [Mass/volume] in Serum or Plasma [2345-7] 07/30/2024 01:19 PM 191 mg/dL N Blood chemistry[[id number]] Glucose [Mass/volume] in Serum or Plasma [2345-7] 07/30/2024 10:08 AM 90 mg/dL N Blood chemistry[[id number]] Glucose [Mass/volume] in Serum or Plasma [2345-7] 07/30/2024 05:05 PM 94 mg/dL N Glucose [Mass/volume] in Serum or Plasma [2345-7] 07/30/2024 05:05 PM 94 mg/dL N Blood chemistry[[id number]] Glucose [Mass/volume] in Serum or Plasma [2345-7] 07/30/2024 01:33 PM 80 mg/dL N Blood chemistry[[id number]] Glucose [Mass/volume] in Serum or Plasma [2345-7] 07/30/2024 11:03 AM 90 mg/dL N Blood chemistry[[id number]] Glucose [Mass/volume] in Serum or Plasma [2345-7] 07/29/2024 12:28 PM 221 mg/dL N Blood chemistry[[id number]] Glucose [Mass/volume] in Serum or Plasma [2345-7] 07/29/2024 02:55 PM 65 mg/dL N Blood chemistry[[id number]] Glucose [Mass/volume] in Serum or Plasma [2345-7] 07/29/2024 11:09 AM 176 mg/dL N Glucose [Mass/volume] in Serum or Plasma [2345-7] 07/29/2024 11:09 AM 71 mg/dL N Blood chemistry[[id number]] Glucose [Mass/volume] in Serum or Plasma [2345-7] 07/29/2024 08:05 AM 171 mg/dL N Blood chemistry[[id number]] Glucose [Mass/volume] in Serum or Plasma [2345-7] 07/28/2024 12:42 PM 277 mg/dL N Blood chemistry[[id number]] Glucose [Mass/volume] in Serum or Plasma [2345-7] 07/28/2024 05:42 PM 118 mg/dL N Blood chemistry[[id number]] Glucose [Mass/volume] in Serum or Plasma [2345-7] 07/28/2024 01:43 PM 111 mg/dL N Blood chemistry[[id number]] Glucose [Mass/volume] in Serum or Plasma [2345-7] 07/28/2024 10:17 AM 150 mg/dL N Blood chemistry[[id number]] Glucose [Mass/volume] in Serum or Plasma [2345-7] 07/27/2024 05:34 PM 126 mg/dL N Blood chemistry[[id number]] Glucose [Mass/volume] in Serum or Plasma [2345-7] 07/27/2024 02:49 PM 98 mg/dL N Blood chemistry[[id number]] Glucose [Mass/volume] in Serum or Plasma [2345-7] 07/27/2024 02:47 PM 260 mg/dL N Blood chemistry[[id number]] Glucose [Mass/volume] in Serum or Plasma [2345-7] 07/27/2024 10:35 AM 182 mg/dL N Blood chemistry[[id number]] Glucose [Mass/volume] in Serum or Plasma [2345-7] 07/26/2024 01:40 PM 288 mg/dL N Glucose [Mass/volume] in Serum or Plasma [2345-7] 07/26/2024 01:40 PM 211 mg/dL N Blood chemistry[[id number]] Glucose [Mass/volume] in Serum or Plasma [2345-7] 07/26/2024 09:53 AM 189 mg/dL N Blood chemistry[[id number]] Glucose [Mass/volume] in Serum or Plasma [2345-7] 07/26/2024 05:37 PM 258 mg/dL N Blood chemistry[[id number]] Glucose [Mass/volume] in Serum or Plasma [2345-7] 07/25/2024 06:26 PM 217 mg/dL N Blood chemistry[[id number]] Glucose [Mass/volume] in Serum or Plasma [2345-7] 07/25/2024 04:10 PM 249 mg/dL N Blood chemistry[[id number]] Glucose [Mass/volume] in Serum or Plasma [2345-7] 07/25/2024 12:35 PM 244 mg/dL N Blood chemistry[[id number]] Glucose [Mass/volume] in Serum or Plasma [2345-7] 07/25/2024 11:17 AM 177 mg/dL N Blood chemistry[[id number]] Glucose [Mass/volume] in Serum or Plasma [2345-7] 07/24/2024 12:38 PM 204 mg/dL N Blood chemistry[[id number]] Glucose [Mass/volume] in Serum or Plasma [2345-7] 07/24/2024 10:36 AM 216 mg/dL N Blood chemistry[[id number]] Glucose [Mass/volume] in Serum or Plasma [2345-7] 07/24/2024 07:55 AM 154 mg/dL N Blood chemistry[[id number]] Glucose [Mass/volume] in Serum or Plasma [2345-7] 07/24/2024 02:28 PM 151 mg/dL N Blood chemistry[[id number]] Glucose [Mass/volume] in Serum or Plasma [2345-7] 07/24/2024 11:08 AM 158 mg/dL N Blood chemistry[[id number]] Glucose [Mass/volume] in Serum or Plasma [2345-7] 07/23/2024 05:27 PM 167 mg/dL N Blood chemistry[[id number]] Glucose [Mass/volume] in Serum or Plasma [2345-7] 07/23/2024 01:07 PM 218 mg/dL N Blood chemistry[[id number]] Glucose [Mass/volume] in Serum or Plasma [2345-7] 07/23/2024 10:31 AM 97 mg/dL N Blood chemistry[[id number]] Glucose [Mass/volume] in Serum or Plasma [2345-7] 07/23/2024 01:45 PM 134 mg/dL N Blood chemistry[[id number]] Glucose [Mass/volume] in Serum or Plasma [2345-7] 07/23/2024 11:12 AM 135 mg/dL N Blood chemistry[[id number]] Glucose [Mass/volume] in Serum or Plasma [2345-7] 07/22/2024 05:29 PM 97 mg/dL N Glucose [Mass/volume] in Serum or Plasma [2345-7] 07/22/2024 05:29 PM 97 mg/dL N Blood chemistry[[id number]] Glucose [Mass/volume] in Serum or Plasma [2345-7] 07/22/2024 12:44 PM 232 mg/dL N Blood chemistry[[id number]] Glucose [Mass/volume] in Serum or Plasma [2345-7] 07/22/2024 10:46 AM 130 mg/dL N Blood chemistry[[id number]] Glucose [Mass/volume] in Serum or Plasma [2345-7] 07/22/2024 01:47 PM 123 mg/dL N Blood chemistry[[id number]] Glucose [Mass/volume] in Serum or Plasma [2345-7] 07/21/2024 06:12 PM 240 mg/dL N Blood chemistry[[id number]] Glucose [Mass/volume] in Serum or Plasma [2345-7] 07/21/2024 03:30 PM 189 mg/dL N Blood chemistry[[id number]] Glucose [Mass/volume] in Serum or Plasma [2345-7] 07/21/2024 01:58 PM 187 mg/dL N Blood chemistry[[id number]] Glucose [Mass/volume] in Serum or Plasma [2345-7] 07/21/2024 10:13 AM 237 mg/dL N Glucose [Mass/volume] in Serum or Plasma [2345-7] 07/21/2024 10:13 AM 237 mg/dL N Blood chemistry[[id number]] Glucose [Mass/volume] in Serum or Plasma [2345-7] 07/20/2024 04:40 PM 188 mg/dL N Blood chemistry[[id number]] Glucose [Mass/volume] in Serum or Plasma [2345-7] 07/20/2024 12:06 PM 156 mg/dL N Blood chemistry[[id number]] Glucose [Mass/volume] in Serum or Plasma [2345-7] 07/20/2024 08:19 AM 208 mg/dL N Glucose [Mass/volume] in Serum or Plasma [2345-7] 07/20/2024 08:19 AM 208 mg/dL N Blood chemistry[[id number]] Glucose [Mass/volume] in Serum or Plasma [2345-7] 07/20/2024 08:18 AM 260 mg/dL N Blood chemistry[[id number]] Glucose [Mass/volume] in Serum or Plasma [2345-7] 07/19/2024 12:42 PM 232 mg/dL N Blood chemistry[[id number]] Glucose [Mass/volume] in Serum or Plasma [2345-7] 07/19/2024 08:26 AM 190 mg/dL N Blood chemistry[[id number]] Glucose [Mass/volume] in Serum or Plasma [2345-7] 07/19/2024 08:25 AM 190 mg/dL N Glucose [Mass/volume] in Serum or Plasma [2345-7] 07/19/2024 08:25 AM 160 mg/dL N Blood chemistry[[id number]] Glucose [Mass/volume] in Serum or Plasma [2345-7] 07/18/2024 05:17 PM 185 mg/dL N Blood chemistry[[id number]] Glucose [Mass/volume] in Serum or Plasma [2345-7] 07/18/2024 06:57 PM 177 mg/dL N Blood chemistry[[id number]] Glucose [Mass/volume] in Serum or Plasma [2345-7] 07/18/2024 04:45 PM 185 mg/dL N Blood chemistry[[id number]] Glucose [Mass/volume] in Serum or Plasma [2345-7] 07/18/2024 12:05 PM 240 mg/dL N Blood chemistry[[id number]] Glucose [Mass/volume] in Serum or Plasma [2345-7] 07/18/2024 11:08 AM 198 mg/dL N Blood chemistry[[id number]] Glucose [Mass/volume] in Serum or Plasma [2345-7] 07/17/2024 05:01 PM 277 mg/dL N Blood chemistry[[id number]] Glucose [Mass/volume] in Serum or Plasma [2345-7] 07/17/2024 02:12 PM 171 mg/dL N Blood chemistry[[id number]] Glucose [Mass/volume] in Serum or Plasma [2345-7] 07/17/2024 12:26 PM 248 mg/dL N Blood chemistry[[id number]] Glucose [Mass/volume] in Serum or Plasma [2345-7] 07/17/2024 10:27 AM 207 mg/dL N Blood chemistry[[id number]] Glucose [Mass/volume] in Serum or Plasma [2345-7] 07/17/2024 11:09 AM 172 mg/dL N Blood chemistry[[id number]] Glucose [Mass/volume] in Serum or Plasma [2345-7] 07/16/2024 12:31 PM 218 mg/dL N Blood chemistry[[id number]] Glucose [Mass/volume] in Serum or Plasma [2345-7] 07/16/2024 10:22 AM 145 mg/dL N Blood chemistry[[id number]] Glucose [Mass/volume] in Serum or Plasma [2345-7] 07/16/2024 03:36 PM 286 mg/dL N Blood chemistry[[id number]] Glucose [Mass/volume] in Serum or Plasma [2345-7] 07/16/2024 11:06 AM 148 mg/dL N Blood chemistry[[id number]] Glucose [Mass/volume] in Serum or Plasma [2345-7] 07/16/2024 07:01 AM 135 mg/dL N Blood chemistry[[id number]] Glucose [Mass/volume] in Serum or Plasma [2345-7] 07/15/2024 06:09 PM 267 mg/dL N Blood chemistry[[id number]] Glucose [Mass/volume] in Serum or Plasma [2345-7] 07/15/2024 01:39 PM 254 mg/dL N Blood chemistry[[id number]] Glucose [Mass/volume] in Serum or Plasma [2345-7] 07/15/2024 12:33 PM 177 mg/dL N Blood chemistry[[id number]] Glucose [Mass/volume] in Serum or Plasma [2345-7] 07/15/2024 11:07 AM 183 mg/dL N Blood chemistry[[id number]] Glucose [Mass/volume] in Serum or Plasma [2345-7] 07/15/2024 10:15 AM 200 mg/dL N Blood chemistry[[id number]] Glucose [Mass/volume] in Serum or Plasma [2345-7] 07/14/2024 05:04 PM 171 mg/dL N Blood chemistry[[id number]] Glucose [Mass/volume] in Serum or Plasma [2345-7] 07/14/2024 01:21 PM 268 mg/dL N Blood chemistry[[id number]] Glucose [Mass/volume] in Serum or Plasma [2345-7] 07/14/2024 12:54 PM 233 mg/dL N Blood chemistry[[id number]] Glucose [Mass/volume] in Serum or Plasma [2345-7] 07/14/2024 10:42 AM 242 mg/dL N Blood chemistry[[id number]] Glucose [Mass/volume] in Serum or Plasma [2345-7] 07/13/2024 05:05 PM 203 mg/dL N Blood chemistry[[id number]] Glucose [Mass/volume] in Serum or Plasma [2345-7] 07/13/2024 04:35 PM 345 mg/dL N Blood chemistry[[id number]] Glucose [Mass/volume] in Serum or Plasma [2345-7] 07/13/2024 02:12 PM 144 mg/dL N Blood chemistry[[id number]] Glucose [Mass/volume] in Serum or Plasma [2345-7] 07/13/2024 11:19 AM 209 mg/dL N Blood chemistry[[id number]] Glucose [Mass/volume] in Serum or Plasma [2345-7] 07/12/2024 05:36 PM 215 mg/dL N Blood chemistry[[id number]] Glucose [Mass/volume] in Serum or Plasma [2345-7] 07/12/2024 03:00 PM 198 mg/dL N Blood chemistry[[id number]] Glucose [Mass/volume] in Serum or Plasma [2345-7] 07/12/2024 01:36 PM 210 mg/dL N Blood chemistry[[id number]] Glucose [Mass/volume] in Serum or Plasma [2345-7] 07/12/2024 10:14 AM 232 mg/dL N Blood chemistry[[id number]] Glucose [Mass/volume] in Serum or Plasma [2345-7] 07/11/2024 05:19 PM 166 mg/dL N Blood chemistry[[id number]] Glucose [Mass/volume] in Serum or Plasma [2345-7] 07/11/2024 03:17 PM 210 mg/dL N Blood chemistry[[id number]] Glucose [Mass/volume] in Serum or Plasma [2345-7] 07/11/2024 02:29 PM 111 mg/dL N Blood chemistry[[id number]] Glucose [Mass/volume] in Serum or Plasma [2345-7] 07/11/2024 11:36 AM 164 mg/dL N Blood chemistry[[id number]] Glucose [Mass/volume] in Serum or Plasma [2345-7] 07/10/2024 04:54 PM 206 mg/dL N Blood chemistry[[id number]] Glucose [Mass/volume] in Serum or Plasma [2345-7] 07/10/2024 02:01 PM 148 mg/dL N Blood chemistry[[id number]] Glucose [Mass/volume] in Serum or Plasma [2345-7] 07/10/2024 12:59 PM 280 mg/dL N Blood chemistry[[id number]] Glucose [Mass/volume] in Serum or Plasma [2345-7] 07/10/2024 11:02 AM 208 mg/dL N Blood chemistry[[id number]] Glucose [Mass/volume] in Serum or Plasma [2345-7] 07/09/2024 05:50 PM 195 mg/dL N Blood chemistry[[id number]] Glucose [Mass/volume] in Serum or Plasma [2345-7] 07/09/2024 03:54 PM 134 mg/dL N Blood chemistry[[id number]] Glucose [Mass/volume] in Serum or Plasma [2345-7] 07/09/2024 12:26 PM 265 mg/dL N Blood chemistry[[id number]] Glucose [Mass/volume] in Serum or Plasma [2345-7] 07/09/2024 11:10 AM 178 mg/dL N Blood chemistry[[id number]] Glucose [Mass/volume] in Serum or Plasma [2345-7] 07/08/2024 04:50 PM 211 mg/dL N Blood chemistry[[id number]] Glucose [Mass/volume] in Serum or Plasma [2345-7] 07/08/2024 01:50 PM 109 mg/dL N Blood chemistry[[id number]] Glucose [Mass/volume] in Serum or Plasma [2345-7] 07/08/2024 01:09 PM 193 mg/dL N Blood chemistry[[id number]] Glucose [Mass/volume] in Serum or Plasma [2345-7] 07/08/2024 09:11 AM 171 mg/dL N Blood chemistry[[id number]] Glucose [Mass/volume] in Serum or Plasma [2345-7] 07/07/2024 03:11 PM 217 mg/dL N Blood chemistry[[id number]] Glucose [Mass/volume] in Serum or Plasma [2345-7] 07/07/2024 02:23 PM 238 mg/dL N Blood chemistry[[id number]] Glucose [Mass/volume] in Serum or Plasma [2345-7] 07/07/2024 01:51 PM 217 mg/dL N Blood chemistry[[id number]] Glucose [Mass/volume] in Serum or Plasma [2345-7] 07/07/2024 10:58 AM 175 mg/dL N Blood chemistry[[id number]] Glucose [Mass/volume] in Serum or Plasma [2345-7] 07/07/2024 07:14 AM 290 mg/dL N Blood chemistry[[id number]] Glucose [Mass/volume] in Serum or Plasma [2345-7] 07/06/2024 02:29 PM 235 mg/dL N Blood chemistry[[id number]] Glucose [Mass/volume] in Serum or Plasma [2345-7] 07/06/2024 10:39 AM 247 mg/dL N Blood chemistry[[id number]] Glucose [Mass/volume] in Serum or Plasma [2345-7] 07/06/2024 07:41 AM 187 mg/dL N Blood chemistry[[id number]] Glucose [Mass/volume] in Serum or Plasma [2345-7] 07/06/2024 07:39 AM 187 mg/dL N Glucose [Mass/volume] in Serum or Plasma [2345-7] 07/06/2024 07:39 AM 164 mg/dL N Blood chemistry[[id number]] Glucose [Mass/volume] in Serum or Plasma [2345-7] 07/05/2024 05:09 PM 169 mg/dL N Blood chemistry[[id number]] Glucose [Mass/volume] in Serum or Plasma [2345-7] 07/05/2024 02:02 PM 354 mg/dL N Blood chemistry[[id number]] Glucose [Mass/volume] in Serum or Plasma [2345-7] 07/05/2024 11:43 AM 187 mg/dL N Blood chemistry[[id number]] Glucose [Mass/volume] in Serum or Plasma [2345-7] 07/05/2024 10:16 AM 161 mg/dL N Blood chemistry[[id number]] Glucose [Mass/volume] in Serum or Plasma [2345-7] 07/04/2024 04:04 PM 200 mg/dL N Blood chemistry[[id number]] Glucose [Mass/volume] in Serum or Plasma [2345-7] 07/04/2024 02:33 PM 176 mg/dL N Blood chemistry[[id number]] Glucose [Mass/volume] in Serum or Plasma [2345-7] 07/04/2024 12:11 PM 179 mg/dL N Blood chemistry[[id number]] Glucose [Mass/volume] in Serum or Plasma [2345-7] 07/04/2024 11:11 AM 193 mg/dL N Blood chemistry[[id number]] Glucose [Mass/volume] in Serum or Plasma [2345-7] 07/04/2024 08:24 AM 227 mg/dL N Blood chemistry[[id number]] Glucose [Mass/volume] in Serum or Plasma [2345-7] 07/03/2024 05:20 PM 193 mg/dL N Blood chemistry[[id number]] Glucose [Mass/volume] in Serum or Plasma [2345-7] 07/03/2024 02:25 PM 153 mg/dL N Blood chemistry[[id number]] Glucose [Mass/volume] in Serum or Plasma [2345-7] 07/03/2024 12:43 PM 257 mg/dL N Blood chemistry[[id number]] Glucose [Mass/volume] in Serum or Plasma [2345-7] 07/03/2024 11:01 AM 167 mg/dL N Blood chemistry[[id number]] Glucose [Mass/volume] in Serum or Plasma [2345-7] 07/03/2024 10:50 AM 194 mg/dL N Blood chemistry[[id number]] Glucose [Mass/volume] in Serum or Plasma [2345-7] 07/02/2024 05:12 PM 216 mg/dL N Blood chemistry[[id number]] Glucose [Mass/volume] in Serum or Plasma [2345-7] 07/02/2024 02:00 PM 169 mg/dL N Blood chemistry[[id number]] Glucose [Mass/volume] in Serum or Plasma [2345-7] 07/02/2024 12:36 PM 258 mg/dL N Blood chemistry[[id number]] Glucose [Mass/volume] in Serum or Plasma [2345-7] 07/02/2024 10:57 AM 154 mg/dL N Blood chemistry[[id number]] Glucose [Mass/volume] in Serum or Plasma [2345-7] 07/02/2024 10:31 AM 202 mg/dL N Blood chemistry[[id number]] Glucose [Mass/volume] in Serum or Plasma [2345-7] 07/01/2024 03:43 PM 173 mg/dL N Blood chemistry[[id number]] Glucose [Mass/volume] in Serum or Plasma [2345-7] 07/01/2024 12:41 PM 173 mg/dL N Blood chemistry[[id number]] Glucose [Mass/volume] in Serum or Plasma [2345-7] 07/01/2024 11:25 AM 239 mg/dL N Blood chemistry[[id number]] Glucose [Mass/volume] in Serum or Plasma [2345-7] 07/01/2024 10:57 AM 182 mg/dL N Blood chemistry[[id number]] Glucose [Mass/volume] in Serum or Plasma [2345-7] 07/01/2024 08:12 AM 184 mg/dL N Blood chemistry[[id number]] Glucose [Mass/volume] in Serum or Plasma [2345-7] 06/30/2024 05:16 PM 156 mg/dL N Blood chemistry[[id number]] Glucose [Mass/volume] in Serum or Plasma [2345-7] 06/30/2024 01:02 PM 107 mg/dL N Blood chemistry[[id number]] Glucose [Mass/volume] in Serum or Plasma [2345-7] 06/30/2024 12:30 PM 197 mg/dL N Blood chemistry[[id number]] Glucose [Mass/volume] in Serum or Plasma [2345-7] 06/30/2024 10:37 AM 180 mg/dL N Blood chemistry[[id number]] Glucose [Mass/volume] in Serum or Plasma [2345-7] 06/29/2024 05:19 PM 180 mg/dL N Blood chemistry[[id number]] Glucose [Mass/volume] in Serum or Plasma [2345-7] 06/29/2024 04:44 PM 158 mg/dL N Blood chemistry[[id number]] Glucose [Mass/volume] in Serum or Plasma [2345-7] 06/29/2024 02:03 PM 72 mg/dL N Blood chemistry[[id number]] Glucose [Mass/volume] in Serum or Plasma [2345-7] 06/29/2024 11:13 AM 102 mg/dL N Blood chemistry[[id number]] Glucose [Mass/volume] in Serum or Plasma [2345-7] 06/29/2024 10:35 AM 133 mg/dL N Blood chemistry[[id number]] Glucose [Mass/volume] in Serum or Plasma [2345-7] 06/28/2024 04:55 PM 94 mg/dL N Blood chemistry[[id number]] Glucose [Mass/volume] in Serum or Plasma [2345-7] 06/28/2024 12:50 PM 192 mg/dL N Blood chemistry[[id number]] Glucose [Mass/volume] in Serum or Plasma [2345-7] 06/28/2024 12:36 PM 83 mg/dL N Blood chemistry[[id number]] Glucose [Mass/volume] in Serum or Plasma [2345-7] 06/28/2024 11:05 AM 100 mg/dL N Blood chemistry[[id number]] Glucose [Mass/volume] in Serum or Plasma [2345-7] 06/28/2024 09:58 AM 176 mg/dL N Blood chemistry[[id number]] Glucose [Mass/volume] in Serum or Plasma [2345-7] 06/27/2024 05:29 PM 197 mg/dL N Blood chemistry[[id number]] Glucose [Mass/volume] in Serum or Plasma [2345-7] 06/27/2024 12:35 PM 311 mg/dL N Blood chemistry[[id number]] Glucose [Mass/volume] in Serum or Plasma [2345-7] 06/27/2024 12:25 PM 264 mg/dL N Blood chemistry[[id number]] Glucose [Mass/volume] in Serum or Plasma [2345-7] 06/27/2024 12:01 PM 318 mg/dL N Blood chemistry[[id number]] Glucose [Mass/volume] in Serum or Plasma [2345-7] 06/27/2024 11:20 AM 270 mg/dL N Blood chemistry[[id number]] Glucose [Mass/volume] in Serum or Plasma [2345-7] 06/26/2024 04:33 PM 189 mg/dL N Blood chemistry[[id number]] Glucose [Mass/volume] in Serum or Plasma [2345-7] 06/26/2024 01:04 PM 193 mg/dL N Blood chemistry[[id number]] Glucose [Mass/volume] in Serum or Plasma [2345-7] 06/26/2024 12:23 PM 318 mg/dL N Blood chemistry[[id number]] Glucose [Mass/volume] in Serum or Plasma [2345-7] 06/26/2024 10:19 AM 287 mg/dL N COVID-19 Test Viral Antigen null flavor [null] 06/25/2024 05:23 PM See note NEG COVID-19 Test Viral Antigen Blood chemistry[[id number]] Glucose [Mass/volume] in Serum or Plasma [2345-7] 06/25/2024 03:19 PM 133 mg/dL N COVID-19 Test Viral Antigen null flavor [null] 06/25/2024 02:49 PM See note NEG COVID-19 Test Viral Antigen Blood chemistry[[id number]] Glucose [Mass/volume] in Serum or Plasma [2345-7] 06/25/2024 12:25 PM 319 mg/dL N Blood chemistry[[id number]] Glucose [Mass/volume] in Serum or Plasma [2345-7] 06/25/2024 11:25 AM 151 mg/dL N Blood chemistry[[id number]] Glucose [Mass/volume] in Serum or Plasma [2345-7] 06/25/2024 09:48 AM 213 mg/dL N Blood chemistry[[id number]] Glucose [Mass/volume] in Serum or Plasma [2345-7] 06/24/2024 05:29 PM 137 mg/dL N Blood chemistry[[id number]] Glucose [Mass/volume] in Serum or Plasma [2345-7] 06/24/2024 01:21 PM 81 mg/dL N Blood chemistry[[id number]] Glucose [Mass/volume] in Serum or Plasma [2345-7] 06/24/2024 12:24 PM 193 mg/dL N Blood chemistry[[id number]] Glucose [Mass/volume] in Serum or Plasma [2345-7] 06/24/2024 10:22 AM 286 mg/dL N Blood chemistry[[id number]] Glucose [Mass/volume] in Serum or Plasma [2345-7] 06/23/2024 05:57 PM 244 mg/dL N Blood chemistry[[id number]] Glucose [Mass/volume] in Serum or Plasma [2345-7] 06/23/2024 03:30 PM 170 mg/dL N Blood chemistry[[id number]] Glucose [Mass/volume] in Serum or Plasma [2345-7] 06/23/2024 01:11 PM 178 mg/dL N Blood chemistry[[id number]] Glucose [Mass/volume] in Serum or Plasma [2345-7] 06/23/2024 11:40 AM 135 mg/dL N Glucose [Mass/volume] in Serum or Plasma [2345-7] 06/23/2024 11:40 AM 108 mg/dL N Blood chemistry[[id number]] Glucose [Mass/volume] in Serum or Plasma [2345-7] 06/23/2024 11:15 AM 65 mg/dL N Blood chemistry[[id number]] Glucose [Mass/volume] in Serum or Plasma [2345-7] 06/22/2024 05:45 PM 69 mg/dL N Blood chemistry[[id number]] Glucose [Mass/volume] in Serum or Plasma [2345-7] 06/22/2024 01:36 PM 270 mg/dL N Blood chemistry[[id number]] Glucose [Mass/volume] in Serum or Plasma [2345-7] 06/22/2024 01:22 PM 81 mg/dL N Blood chemistry[[id number]] Glucose [Mass/volume] in Serum or Plasma [2345-7] 06/22/2024 11:36 AM 130 mg/dL N Blood chemistry[[id number]] Glucose [Mass/volume] in Serum or Plasma [2345-7] 06/22/2024 11:08 AM 101 mg/dL N Blood chemistry[[id number]] Glucose [Mass/volume] in Serum or Plasma [2345-7] 06/21/2024 05:57 PM 61 mg/dL N Blood chemistry[[id number]] Glucose [Mass/volume] in Serum or Plasma [2345-7] 06/21/2024 01:10 PM 73 mg/dL N Blood chemistry[[id number]] Glucose [Mass/volume] in Serum or Plasma [2345-7] 06/21/2024 01:06 PM 233 mg/dL N Blood chemistry[[id number]] Glucose [Mass/volume] in Serum or Plasma [2345-7] 06/21/2024 10:42 AM 186 mg/dL N Blood chemistry[[id number]] Glucose [Mass/volume] in Serum or Plasma [2345-7] 06/20/2024 06:44 PM 81 mg/dL N Blood chemistry[[id number]] Glucose [Mass/volume] in Serum or Plasma [2345-7] 06/20/2024 03:04 PM 140 mg/dL N Blood chemistry[[id number]] Glucose [Mass/volume] in Serum or Plasma [2345-7] 06/20/2024 02:34 PM 65 mg/dL N Blood chemistry[[id number]] Glucose [Mass/volume] in Serum or Plasma [2345-7] 06/20/2024 11:04 AM 90 mg/dL N Blood chemistry[[id number]] Glucose [Mass/volume] in Serum or Plasma [2345-7] 06/20/2024 11:03 AM 178 mg/dL N Blood chemistry[[id number]] Glucose [Mass/volume] in Serum or Plasma [2345-7] 06/19/2024 04:58 PM 129 mg/dL N Blood chemistry[[id number]] Glucose [Mass/volume] in Serum or Plasma [2345-7] 06/19/2024 01:27 PM 93 mg/dL N Blood chemistry[[id number]] Glucose [Mass/volume] in Serum or Plasma [2345-7] 06/19/2024 12:33 PM 323 mg/dL N Blood chemistry[[id number]] Glucose [Mass/volume] in Serum or Plasma [2345-7] 06/19/2024 11:32 AM 66 mg/dL N Blood chemistry[[id number]] Glucose [Mass/volume] in Serum or Plasma [2345-7] 06/19/2024 10:29 AM 103 mg/dL N Blood chemistry[[id number]] Glucose [Mass/volume] in Serum or Plasma [2345-7] 06/18/2024 05:24 PM 139 mg/dL N Blood chemistry[[id number]] Glucose [Mass/volume] in Serum or Plasma [2345-7] 06/18/2024 01:43 PM 89 mg/dL N Blood chemistry[[id number]] Glucose [Mass/volume] in Serum or Plasma [2345-7] 06/18/2024 12:36 PM 225 mg/dL N Blood chemistry[[id number]] Glucose [Mass/volume] in Serum or Plasma [2345-7] 06/18/2024 11:10 AM 74 mg/dL N Blood chemistry[[id number]] Glucose [Mass/volume] in Serum or Plasma [2345-7] 06/18/2024 11:08 AM 206 mg/dL N Blood chemistry[[id number]] Glucose [Mass/volume] in Serum or Plasma [2345-7] 06/17/2024 05:12 PM 201 mg/dL N Blood chemistry[[id number]] Glucose [Mass/volume] in Serum or Plasma [2345-7] 06/17/2024 01:05 PM 118 mg/dL N Blood chemistry[[id number]] Glucose [Mass/volume] in Serum or Plasma [2345-7] 06/17/2024 12:52 PM 116 mg/dL N Blood chemistry[[id number]] Glucose [Mass/volume] in Serum or Plasma [2345-7] 06/17/2024 11:26 AM 66 mg/dL N Blood chemistry[[id number]] Glucose [Mass/volume] in Serum or Plasma [2345-7] 06/17/2024 09:34 AM 63 mg/dL N Blood chemistry[[id number]] Glucose [Mass/volume] in Serum or Plasma [2345-7] 06/16/2024 01:44 PM 144 mg/dL N Blood chemistry[[id number]] Glucose [Mass/volume] in Serum or Plasma [2345-7] 06/16/2024 01:40 PM 252 mg/dL N Blood chemistry[[id number]] Glucose [Mass/volume] in Serum or Plasma [2345-7] 06/16/2024 11:21 AM 62 mg/dL N Blood chemistry[[id number]] Glucose [Mass/volume] in Serum or Plasma [2345-7] 06/16/2024 09:13 AM 167 mg/dL N Blood chemistry[[id number]] Glucose [Mass/volume] in Serum or Plasma [2345-7] 06/15/2024 05:33 PM 101 mg/dL N Blood chemistry[[id number]] Glucose [Mass/volume] in Serum or Plasma [2345-7] 06/15/2024 02:14 PM 121 mg/dL N Blood chemistry[[id number]] Glucose [Mass/volume] in Serum or Plasma [2345-7] 06/15/2024 01:48 PM 226 mg/dL N Blood chemistry[[id number]] Glucose [Mass/volume] in Serum or Plasma [2345-7] 06/15/2024 09:58 AM 162 mg/dL N Blood chemistry[[id number]] Glucose [Mass/volume] in Serum or Plasma [2345-7] 06/14/2024 05:40 PM 105 mg/dL N Blood chemistry[[id number]] Glucose [Mass/volume] in Serum or Plasma [2345-7] 06/14/2024 02:04 PM 89 mg/dL N Blood chemistry[[id number]] Glucose [Mass/volume] in Serum or Plasma [2345-7] 06/14/2024 01:55 PM 209 mg/dL N Blood chemistry[[id number]] Glucose [Mass/volume] in Serum or Plasma [2345-7] 06/14/2024 11:52 AM 84 mg/dL N Blood chemistry[[id number]] Glucose [Mass/volume] in Serum or Plasma [2345-7] 06/14/2024 11:20 AM 62 mg/dL N Blood chemistry[[id number]] Glucose [Mass/volume] in Serum or Plasma [2345-7] 06/14/2024 10:14 AM 183 mg/dL N Blood chemistry[[id number]] Glucose [Mass/volume] in Serum or Plasma [2345-7] 06/13/2024 06:23 PM 184 mg/dL N Blood chemistry[[id number]] Glucose [Mass/volume] in Serum or Plasma [2345-7] 06/13/2024 02:59 PM 176 mg/dL N Blood chemistry[[id number]] Glucose [Mass/volume] in Serum or Plasma [2345-7] 06/13/2024 01:17 PM 258 mg/dL N Blood chemistry[[id number]] Glucose [Mass/volume] in Serum or Plasma [2345-7] 06/13/2024 12:25 PM 169 mg/dL N Blood chemistry[[id number]] Glucose [Mass/volume] in Serum or Plasma [2345-7] 06/13/2024 11:15 AM 179 mg/dL N Blood chemistry[[id number]] Glucose [Mass/volume] in Serum or Plasma [2345-7] 06/12/2024 05:23 PM 159 mg/dL N Blood chemistry[[id number]] Glucose [Mass/volume] in Serum or Plasma [2345-7] 06/12/2024 01:22 PM 177 mg/dL N Blood chemistry[[id number]] Glucose [Mass/volume] in Serum or Plasma [2345-7] 06/12/2024 12:57 PM 263 mg/dL N Blood chemistry[[id number]] Glucose [Mass/volume] in Serum or Plasma [2345-7] 06/12/2024 11:12 AM 164 mg/dL N Blood chemistry[[id number]] Glucose [Mass/volume] in Serum or Plasma [2345-7] 06/12/2024 10:46 AM 209 mg/dL N Blood chemistry[[id number]] Glucose [Mass/volume] in Serum or Plasma [2345-7] 06/11/2024 06:13 PM 224 mg/dL N Blood chemistry[[id number]] Glucose [Mass/volume] in Serum or Plasma [2345-7] 06/11/2024 04:34 PM 67 mg/dL N Blood chemistry[[id number]] Glucose [Mass/volume] in Serum or Plasma [2345-7] 06/11/2024 01:17 PM 272 mg/dL N Blood chemistry[[id number]] Glucose [Mass/volume] in Serum or Plasma [2345-7] 06/11/2024 11:22 AM 211 mg/dL N Blood chemistry[[id number]] Glucose [Mass/volume] in Serum or Plasma [2345-7] 06/11/2024 11:13 AM 83 mg/dL N Blood chemistry[[id number]] Glucose [Mass/volume] in Serum or Plasma [2345-7] 06/10/2024 06:55 PM 206 mg/dL N Blood chemistry[[id number]] Glucose [Mass/volume] in Serum or Plasma [2345-7] 06/10/2024 01:38 PM 96 mg/dL N Blood chemistry[[id number]] Glucose [Mass/volume] in Serum or Plasma [2345-7] 06/10/2024 01:10 PM 205 mg/dL N Blood chemistry[[id number]] Glucose [Mass/volume] in Serum or Plasma [2345-7] 06/10/2024 12:50 PM 189 mg/dL N Blood chemistry[[id number]] Glucose [Mass/volume] in Serum or Plasma [2345-7] 06/09/2024 02:55 PM 178 mg/dL N Blood chemistry[[id number]] Glucose [Mass/volume] in Serum or Plasma [2345-7] 06/09/2024 02:38 PM 154 mg/dL N Blood chemistry[[id number]] Glucose [Mass/volume] in Serum or Plasma [2345-7] 06/09/2024 11:31 AM 117 mg/dL N Blood chemistry[[id number]] Glucose [Mass/volume] in Serum or Plasma [2345-7] 06/09/2024 07:30 AM 136 mg/dL N Blood chemistry[[id number]] Glucose [Mass/volume] in Serum or Plasma [2345-7] 06/08/2024 05:25 PM 143 mg/dL N Blood chemistry[[id number]] Glucose [Mass/volume] in Serum or Plasma [2345-7] 06/08/2024 01:13 PM 276 mg/dL N Blood chemistry[[id number]] Glucose [Mass/volume] in Serum or Plasma [2345-7] 06/08/2024 12:53 PM 147 mg/dL N Blood chemistry[[id number]] Glucose [Mass/volume] in Serum or Plasma [2345-7] 06/08/2024 11:11 AM 156 mg/dL N Blood chemistry[[id number]] Glucose [Mass/volume] in Serum or Plasma [2345-7] 06/08/2024 10:53 AM 177 mg/dL N Blood chemistry[[id number]] Glucose [Mass/volume] in Serum or Plasma [2345-7] 06/07/2024 04:52 PM 132 mg/dL N Blood chemistry[[id number]] Glucose [Mass/volume] in Serum or Plasma [2345-7] 06/07/2024 12:58 PM 194 mg/dL N Blood chemistry[[id number]] Glucose [Mass/volume] in Serum or Plasma [2345-7] 06/07/2024 12:16 PM 271 mg/dL N Blood chemistry[[id number]] Glucose [Mass/volume] in Serum or Plasma [2345-7] 06/07/2024 10:29 AM 207 mg/dL N Blood chemistry[[id number]] Glucose [Mass/volume] in Serum or Plasma [2345-7] 06/07/2024 09:12 AM 239 mg/dL N Blood chemistry[[id number]] Glucose [Mass/volume] in Serum or Plasma [2345-7] 06/06/2024 04:55 PM 376 mg/dL N Blood chemistry[[id number]] Glucose [Mass/volume] in Serum or Plasma [2345-7] 06/06/2024 12:51 PM 222 mg/dL N Blood chemistry[[id number]] Glucose [Mass/volume] in Serum or Plasma [2345-7] 06/06/2024 12:00 PM 385 mg/dL N Blood chemistry[[id number]] Glucose [Mass/volume] in Serum or Plasma [2345-7] 06/06/2024 09:08 AM 293 mg/dL N Blood chemistry[[id number]] Glucose [Mass/volume] in Serum or Plasma [2345-7] 06/05/2024 04:53 PM 239 mg/dL N Blood chemistry[[id number]] Glucose [Mass/volume] in Serum or Plasma [2345-7] 06/05/2024 12:10 PM 246 mg/dL N Blood chemistry[[id number]] Glucose [Mass/volume] in Serum or Plasma [2345-7] 06/05/2024 12:02 PM 311 mg/dL N Blood chemistry[[id number]] Glucose [Mass/volume] in Serum or Plasma [2345-7] 06/05/2024 09:03 AM 163 mg/dL N Glucose [Mass/volume] in Serum or Plasma [2345-7] 06/05/2024 09:03 AM 163 mg/dL N Blood chemistry[[id number]] Glucose [Mass/volume] in Serum or Plasma [2345-7] 06/04/2024 04:33 PM 134 mg/dL N Blood chemistry[[id number]] Glucose [Mass/volume] in Serum or Plasma [2345-7] 06/04/2024 03:33 PM 142 mg/dL N Blood chemistry[[id number]] Glucose [Mass/volume] in Serum or Plasma [2345-7] 06/04/2024 11:45 AM 314 mg/dL N Blood chemistry[[id number]] Glucose [Mass/volume] in Serum or Plasma [2345-7] 06/04/2024 09:16 AM 226 mg/dL N Blood chemistry[[id number]] Glucose [Mass/volume] in Serum or Plasma [2345-7] 06/03/2024 04:18 PM 202 mg/dL N Blood chemistry[[id number]] Glucose [Mass/volume] in Serum or Plasma [2345-7] 06/03/2024 12:16 PM 100 mg/dL N Blood chemistry[[id number]] Glucose [Mass/volume] in Serum or Plasma [2345-7] 06/03/2024 12:10 PM 305 mg/dL N Blood chemistry[[id number]] Glucose [Mass/volume] in Serum or Plasma [2345-7] 06/03/2024 09:34 AM 328 mg/dL N Blood chemistry[[id number]] Glucose [Mass/volume] in Serum or Plasma [2345-7] 06/02/2024 04:15 PM 270 mg/dL N Glucose [Mass/volume] in Serum or Plasma [2345-7] 06/02/2024 04:15 PM 206 mg/dL N Blood chemistry[[id number]] Glucose [Mass/volume] in Serum or Plasma [2345-7] 06/02/2024 01:31 PM 199 mg/dL N Blood chemistry[[id number]] Glucose [Mass/volume] in Serum or Plasma [2345-7] 06/02/2024 01:30 PM 199 mg/dL N Blood chemistry[[id number]] Glucose [Mass/volume] in Serum or Plasma [2345-7] 06/02/2024 12:02 PM 338 mg/dL N Blood chemistry[[id number]] Glucose [Mass/volume] in Serum or Plasma [2345-7] 06/02/2024 09:19 AM 270 mg/dL N Blood chemistry[[id number]] Glucose [Mass/volume] in Serum or Plasma [2345-7] 06/01/2024 04:26 PM 267 mg/dL N Blood chemistry[[id number]] Glucose [Mass/volume] in Serum or Plasma [2345-7] 06/01/2024 12:45 PM 178 mg/dL N Blood chemistry[[id number]] Glucose [Mass/volume] in Serum or Plasma [2345-7] 06/01/2024 12:43 PM 346 mg/dL N Blood chemistry[[id number]] Glucose [Mass/volume] in Serum or Plasma [2345-7] 06/01/2024 10:09 AM 241 mg/dL N Blood chemistry[[id number]] Glucose [Mass/volume] in Serum or Plasma [2345-7] 05/31/2024 02:16 PM 280 mg/dL N Blood chemistry[[id number]] Glucose [Mass/volume] in Serum or Plasma [2345-7] 05/31/2024 12:21 PM 266 mg/dL N Blood chemistry[[id number]] Glucose [Mass/volume] in Serum or Plasma [2345-7] 05/31/2024 11:47 AM 219 mg/dL N Blood chemistry[[id number]] Glucose [Mass/volume] in Serum or Plasma [2345-7] 05/31/2024 06:49 AM 312 mg/dL N Blood chemistry[[id number]] Glucose [Mass/volume] in Serum or Plasma [2345-7] 05/30/2024 04:15 PM 205 mg/dL N Blood chemistry[[id number]] Glucose [Mass/volume] in Serum or Plasma [2345-7] 05/30/2024 02:36 PM 251 mg/dL N Blood chemistry[[id number]] Glucose [Mass/volume] in Serum or Plasma [2345-7] 05/30/2024 10:15 AM 299 mg/dL N Blood chemistry[[id number]] Glucose [Mass/volume] in Serum or Plasma [2345-7] 05/30/2024 10:14 AM 249 mg/dL N Blood chemistry[[id number]] Glucose [Mass/volume] in Serum or Plasma [2345-7] 05/29/2024 05:57 PM 309 mg/dL N Blood chemistry[[id number]] Glucose [Mass/volume] in Serum or Plasma [2345-7] 05/29/2024 04:23 PM 182 mg/dL N Blood chemistry[[id number]] Glucose [Mass/volume] in Serum or Plasma [2345-7] 05/29/2024 12:20 PM 238 mg/dL N Blood chemistry[[id number]] Glucose [Mass/volume] in Serum or Plasma [2345-7] 05/29/2024 09:19 AM 227 mg/dL N Blood chemistry[[id number]] Glucose [Mass/volume] in Serum or Plasma [2345-7] 05/28/2024 04:28 PM 220 mg/dL N Blood chemistry[[id number]] Glucose [Mass/volume] in Serum or Plasma [2345-7] 05/28/2024 12:39 PM 302 mg/dL N Blood chemistry[[id number]] Glucose [Mass/volume] in Serum or Plasma [2345-7] 05/28/2024 11:59 AM 354 mg/dL N Blood chemistry[[id number]] Glucose [Mass/volume] in Serum or Plasma [2345-7] 05/28/2024 09:10 AM 216 mg/dL N Blood chemistry[[id number]] Glucose [Mass/volume] in Serum or Plasma [2345-7] 05/27/2024 04:06 PM 230 mg/dL N Blood chemistry[[id number]] Glucose [Mass/volume] in Serum or Plasma [2345-7] 05/27/2024 12:19 PM 322 mg/dL N Blood chemistry[[id number]] Glucose [Mass/volume] in Serum or Plasma [2345-7] 05/27/2024 12:11 PM 214 mg/dL N Blood chemistry[[id number]] Glucose [Mass/volume] in Serum or Plasma [2345-7] 05/27/2024 11:27 AM 172 mg/dL N Blood chemistry[[id number]] Glucose [Mass/volume] in Serum or Plasma [2345-7] 05/27/2024 11:26 AM 172 mg/dL N Blood chemistry[[id number]] Glucose [Mass/volume] in Serum or Plasma [2345-7] 05/26/2024 05:26 PM 167 mg/dL N Blood chemistry[[id number]] Glucose [Mass/volume] in Serum or Plasma [2345-7] 05/26/2024 05:25 PM 167 mg/dL N COVID-19 Test Viral Antigen null flavor [null] 05/26/2024 05:00 PM See note NEG COVID-19 Test Viral Antigen Blood chemistry[[id number]] Glucose [Mass/volume] in Serum or Plasma [2345-7] 05/26/2024 12:55 PM 182 mg/dL N Glucose [Mass/volume] in Serum or Plasma [2345-7] 05/26/2024 12:55 PM 182 mg/dL N Blood chemistry[[id number]] Glucose [Mass/volume] in Serum or Plasma [2345-7] 05/26/2024 12:31 PM 262 mg/dL N Blood chemistry[[id number]] Glucose [Mass/volume] in Serum or Plasma [2345-7] 05/26/2024 09:38 AM 172 mg/dL N Blood chemistry[[id number]] Glucose [Mass/volume] in Serum or Plasma [2345-7] 05/25/2024 05:02 PM 72 mg/dL N Glucose [Mass/volume] in Serum or Plasma [2345-7] 05/25/2024 05:02 PM 72 mg/dL N Glucose [Mass/volume] in Serum or Plasma [2345-7] 05/25/2024 05:02 PM 69 mg/dL N Blood chemistry[[id number]] Glucose [Mass/volume] in Serum or Plasma [2345-7] 05/25/2024 12:38 PM 213 mg/dL N Blood chemistry[[id number]] Glucose [Mass/volume] in Serum or Plasma [2345-7] 05/25/2024 10:55 AM 161 mg/dL N Blood chemistry[[id number]] Glucose [Mass/volume] in Serum or Plasma [2345-7] 05/24/2024 04:49 PM 239 mg/dL N Blood chemistry[[id number]] Glucose [Mass/volume] in Serum or Plasma [2345-7] 05/24/2024 02:25 PM 238 mg/dL N Blood chemistry[[id number]] Glucose [Mass/volume] in Serum or Plasma [2345-7] 05/24/2024 12:08 PM 260 mg/dL N Blood chemistry[[id number]] Glucose [Mass/volume] in Serum or Plasma [2345-7] 05/24/2024 11:17 AM 216 mg/dL N Blood chemistry[[id number]] Glucose [Mass/volume] in Serum or Plasma [2345-7] 05/23/2024 05:03 PM 186 mg/dL N Blood chemistry[[id number]] Glucose [Mass/volume] in Serum or Plasma [2345-7] 05/23/2024 01:10 PM 131 mg/dL N Blood chemistry[[id number]] Glucose [Mass/volume] in Serum or Plasma [2345-7] 05/23/2024 01:06 PM 211 mg/dL N Blood chemistry[[id number]] Glucose [Mass/volume] in Serum or Plasma [2345-7] 05/23/2024 09:43 AM 186 mg/dL N Blood chemistry[[id number]] Glucose [Mass/volume] in Serum or Plasma [2345-7] 05/22/2024 04:41 PM 191 mg/dL N Blood chemistry[[id number]] Glucose [Mass/volume] in Serum or Plasma [2345-7] 05/22/2024 02:08 PM 208 mg/dL N Blood chemistry[[id number]] Glucose [Mass/volume] in Serum or Plasma [2345-7] 05/22/2024 11:41 AM 348 mg/dL N Blood chemistry[[id number]] Glucose [Mass/volume] in Serum or Plasma [2345-7] 05/22/2024 09:24 AM 294 mg/dL N Glucose [Mass/volume] in Serum or Plasma [2345-7] 05/22/2024 09:24 AM 294 mg/dL N Blood chemistry[[id number]] Glucose [Mass/volume] in Serum or Plasma [2345-7] 05/21/2024 04:08 PM 236 mg/dL N Blood chemistry[[id number]] Glucose [Mass/volume] in Serum or Plasma [2345-7] 05/21/2024 02:48 PM 179 mg/dL N Blood chemistry[[id number]] Glucose [Mass/volume] in Serum or Plasma [2345-7] 05/21/2024 11:43 AM 255 mg/dL N Blood chemistry[[id number]] Glucose [Mass/volume] in Serum or Plasma [2345-7] 05/21/2024 09:14 AM 276 mg/dL N Blood chemistry[[id number]] Glucose [Mass/volume] in Serum or Plasma [2345-7] 05/20/2024 05:16 PM 198 mg/dL N Glucose [Mass/volume] in Serum or Plasma [2345-7] 05/20/2024 05:16 PM 198 mg/dL N Blood chemistry[[id number]] Glucose [Mass/volume] in Serum or Plasma [2345-7] 05/20/2024 12:09 PM 195 mg/dL N Blood chemistry[[id number]] Glucose [Mass/volume] in Serum or Plasma [2345-7] 05/20/2024 12:07 PM 81 mg/dL N Blood chemistry[[id number]] Glucose [Mass/volume] in Serum or Plasma [2345-7] 05/20/2024 09:04 AM 201 mg/dL N COVID-19 Test Viral Antigen null flavor [null] 05/19/2024 05:00 PM See note NEG COVID-19 Test Viral Antigen Blood chemistry[[id number]] Glucose [Mass/volume] in Serum or Plasma [2345-7] 05/19/2024 04:35 PM 260 mg/dL N Blood chemistry[[id number]] Glucose [Mass/volume] in Serum or Plasma [2345-7] 05/19/2024 03:22 PM 217 mg/dL N Glucose [Mass/volume] in Serum or Plasma [2345-7] 05/19/2024 03:22 PM 217 mg/dL N Blood chemistry[[id number]] Glucose [Mass/volume] in Serum or Plasma [2345-7] 05/19/2024 12:09 PM 324 mg/dL N Blood chemistry[[id number]] Glucose [Mass/volume] in Serum or Plasma [2345-7] 05/19/2024 08:16 AM 245 mg/dL N Blood chemistry[[id number]] Glucose [Mass/volume] in Serum or Plasma [2345-7] 05/19/2024 08:14 AM 245 mg/dL N Blood chemistry[[id number]] Glucose [Mass/volume] in Serum or Plasma [2345-7] 05/18/2024 04:53 PM 84 mg/dL N Blood chemistry[[id number]] Glucose [Mass/volume] in Serum or Plasma [2345-7] 05/18/2024 12:58 PM 81 mg/dL N Blood chemistry[[id number]] Glucose [Mass/volume] in Serum or Plasma [2345-7] 05/18/2024 12:32 PM 170 mg/dL N Blood chemistry[[id number]] Glucose [Mass/volume] in Serum or Plasma [2345-7] 05/18/2024 09:48 AM 171 mg/dL N Blood chemistry[[id number]] Glucose [Mass/volume] in Serum or Plasma [2345-7] 05/17/2024 04:40 PM 93 mg/dL N Blood chemistry[[id number]] Glucose [Mass/volume] in Serum or Plasma [2345-7] 05/17/2024 12:05 PM 148 mg/dL N Glucose [Mass/volume] in Serum or Plasma [2345-7] 05/17/2024 12:05 PM 83 mg/dL N Blood chemistry[[id number]] Glucose [Mass/volume] in Serum or Plasma [2345-7] 05/17/2024 09:14 AM 110 mg/dL N Blood chemistry[[id number]] Glucose [Mass/volume] in Serum or Plasma [2345-7] 05/16/2024 05:27 PM 141 mg/dL N Blood chemistry[[id number]] Glucose [Mass/volume] in Serum or Plasma [2345-7] 05/16/2024 01:02 PM 98 mg/dL N Blood chemistry[[id number]] Glucose [Mass/volume] in Serum or Plasma [2345-7] 05/16/2024 12:38 PM 247 mg/dL N Blood chemistry[[id number]] Glucose [Mass/volume] in Serum or Plasma [2345-7] 05/16/2024 10:02 AM 145 mg/dL N Blood chemistry[[id number]] Glucose [Mass/volume] in Serum or Plasma [2345-7] 05/16/2024 06:05 AM 291 mg/dL N Blood chemistry[[id number]] Glucose [Mass/volume] in Serum or Plasma [2345-7] 05/15/2024 02:47 PM 214 mg/dL N Blood chemistry[[id number]] Glucose [Mass/volume] in Serum or Plasma [2345-7] 05/15/2024 11:05 AM 190 mg/dL N Blood chemistry[[id number]] Glucose [Mass/volume] in Serum or Plasma [2345-7] 05/15/2024 06:49 AM 327 mg/dL N Blood chemistry[[id number]] Glucose [Mass/volume] in Serum or Plasma [2345-7] 05/14/2024 05:12 PM 245 mg/dL N Blood chemistry[[id number]] Glucose [Mass/volume] in Serum or Plasma [2345-7] 05/14/2024 05:11 PM 245 mg/dL N Blood chemistry[[id number]] Glucose [Mass/volume] in Serum or Plasma [2345-7] 05/14/2024 01:09 PM 296 mg/dL N Blood chemistry[[id number]] Glucose [Mass/volume] in Serum or Plasma [2345-7] 05/14/2024 12:00 PM 381 mg/dL N Blood chemistry[[id number]] Glucose [Mass/volume] in Serum or Plasma [2345-7] 05/14/2024 11:23 AM 337 mg/dL N Blood chemistry[[id number]] Glucose [Mass/volume] in Serum or Plasma [2345-7] 05/13/2024 05:26 PM 290 mg/dL N Blood chemistry[[id number]] Glucose [Mass/volume] in Serum or Plasma [2345-7] 05/13/2024 11:51 AM 229 mg/dL N Blood chemistry[[id number]] Glucose [Mass/volume] in Serum or Plasma [2345-7] 05/13/2024 08:41 AM 268 mg/dL N Blood chemistry[[id number]] Glucose [Mass/volume] in Serum or Plasma [2345-7] 05/13/2024 06:15 AM 229 mg/dL N COVID-19 Test Viral Antigen null flavor [null] 05/12/2024 05:00 PM See note NEG COVID-19 Test Viral Antigen Blood chemistry[[id number]] Glucose [Mass/volume] in Serum or Plasma [2345-7] 05/12/2024 05:00 PM 279 mg/dL N Blood chemistry[[id number]] Glucose [Mass/volume] in Serum or Plasma [2345-7] 05/12/2024 02:21 PM 178 mg/dL N Blood chemistry[[id number]] Glucose [Mass/volume] in Serum or Plasma [2345-7] 05/12/2024 10:42 AM 212 mg/dL N Blood chemistry[[id number]] Glucose [Mass/volume] in Serum or Plasma [2345-7] 05/11/2024 04:50 PM 137 mg/dL N Blood chemistry[[id number]] Glucose [Mass/volume] in Serum or Plasma [2345-7] 05/11/2024 01:27 PM 209 mg/dL N Blood chemistry[[id number]] Glucose [Mass/volume] in Serum or Plasma [2345-7] 05/11/2024 12:06 PM 279 mg/dL N Blood chemistry[[id number]] Glucose [Mass/volume] in Serum or Plasma [2345-7] 05/11/2024 08:55 AM 164 mg/dL N Blood chemistry[[id number]] Glucose [Mass/volume] in Serum or Plasma [2345-7] 05/10/2024 05:36 PM 320 mg/dL N Blood chemistry[[id number]] Glucose [Mass/volume] in Serum or Plasma [2345-7] 05/10/2024 01:32 PM 279 mg/dL N Blood chemistry[[id number]] Glucose [Mass/volume] in Serum or Plasma [2345-7] 05/10/2024 12:57 PM 228 mg/dL N Blood chemistry[[id number]] Glucose [Mass/volume] in Serum or Plasma [2345-7] 05/10/2024 11:27 AM 210 mg/dL N Blood chemistry[[id number]] Glucose [Mass/volume] in Serum or Plasma [2345-7] 05/09/2024 05:26 PM 308 mg/dL N Blood chemistry[[id number]] Glucose [Mass/volume] in Serum or Plasma [2345-7] 05/09/2024 02:43 PM 296 mg/dL N Blood chemistry[[id number]] Glucose [Mass/volume] in Serum or Plasma [2345-7] 05/09/2024 01:18 PM 313 mg/dL N Blood chemistry[[id number]] Glucose [Mass/volume] in Serum or Plasma [2345-7] 05/09/2024 11:19 AM 344 mg/dL N Blood chemistry[[id number]] Glucose [Mass/volume] in Serum or Plasma [2345-7] 05/08/2024 03:46 PM 277 mg/dL N Blood chemistry[[id number]] Glucose [Mass/volume] in Serum or Plasma [2345-7] 05/08/2024 02:31 PM 188 mg/dL N Blood chemistry[[id number]] Glucose [Mass/volume] in Serum or Plasma [2345-7] 05/08/2024 11:49 AM 312 mg/dL N Blood chemistry[[id number]] Glucose [Mass/volume] in Serum or Plasma [2345-7] 05/08/2024 10:13 AM 262 mg/dL N Blood chemistry[[id number]] Glucose [Mass/volume] in Serum or Plasma [2345-7] 05/07/2024 04:14 PM 249 mg/dL N Blood chemistry[[id number]] Glucose [Mass/volume] in Serum or Plasma [2345-7] 05/07/2024 12:21 PM 255 mg/dL N Blood chemistry[[id number]] Glucose [Mass/volume] in Serum or Plasma [2345-7] 05/07/2024 12:14 PM 237 mg/dL N Blood chemistry[[id number]] Glucose [Mass/volume] in Serum or Plasma [2345-7] 05/07/2024 08:58 AM 352 mg/dL N Blood chemistry[[id number]] Glucose [Mass/volume] in Serum or Plasma [2345-7] 05/06/2024 05:47 PM 247 mg/dL N Blood chemistry[[id number]] Glucose [Mass/volume] in Serum or Plasma [2345-7] 05/06/2024 12:43 PM 199 mg/dL N Blood chemistry[[id number]] Glucose [Mass/volume] in Serum or Plasma [2345-7] 05/06/2024 12:00 PM 199 mg/dL N Blood chemistry[[id number]] Glucose [Mass/volume] in Serum or Plasma [2345-7] 05/06/2024 10:08 AM 238 mg/dL N Glucose [Mass/volume] in Serum or Plasma [2345-7] 05/06/2024 10:08 AM 238 mg/dL N Blood chemistry[[id number]] Glucose [Mass/volume] in Serum or Plasma [2345-7] 05/05/2024 05:36 PM 129 mg/dL N Blood chemistry[[id number]] Glucose [Mass/volume] in Serum or Plasma [2345-7] 05/05/2024 05:35 PM 129 mg/dL N COVID-19 Test Viral Antigen null flavor [null] 05/05/2024 05:00 PM See note NEG COVID-19 Test Viral Antigen Blood chemistry[[id number]] Glucose [Mass/volume] in Serum or Plasma [2345-7] 05/05/2024 12:56 PM 221 mg/dL N Blood chemistry[[id number]] Glucose [Mass/volume] in Serum or Plasma [2345-7] 05/05/2024 12:36 PM 186 mg/dL N Blood chemistry[[id number]] Glucose [Mass/volume] in Serum or Plasma [2345-7] 05/05/2024 09:17 AM 216 mg/dL N Blood chemistry[[id number]] Glucose [Mass/volume] in Serum or Plasma [2345-7] 05/04/2024 04:30 PM 233 mg/dL N Blood chemistry[[id number]] Glucose [Mass/volume] in Serum or Plasma [2345-7] 05/04/2024 12:29 PM 207 mg/dL N Blood chemistry[[id number]] Glucose [Mass/volume] in Serum or Plasma [2345-7] 05/04/2024 12:18 PM 252 mg/dL N Blood chemistry[[id number]] Glucose [Mass/volume] in Serum or Plasma [2345-7] 05/04/2024 09:29 AM 189 mg/dL N Blood chemistry[[id number]] Glucose [Mass/volume] in Serum or Plasma [2345-7] 05/03/2024 04:06 PM 194 mg/dL N Blood chemistry[[id number]] Glucose [Mass/volume] in Serum or Plasma [2345-7] 05/03/2024 01:43 PM 265 mg/dL N Blood chemistry[[id number]] Glucose [Mass/volume] in Serum or Plasma [2345-7] 05/03/2024 12:04 PM 257 mg/dL N Blood chemistry[[id number]] Glucose [Mass/volume] in Serum or Plasma [2345-7] 05/03/2024 09:22 AM 232 mg/dL N Blood chemistry[[id number]] Glucose [Mass/volume] in Serum or Plasma [2345-7] 05/02/2024 05:12 PM 78 mg/dL N Blood chemistry[[id number]] Glucose [Mass/volume] in Serum or Plasma [2345-7] 05/02/2024 12:44 PM 155 mg/dL N Blood chemistry[[id number]] Glucose [Mass/volume] in Serum or Plasma [2345-7] 05/02/2024 12:33 PM 205 mg/dL N Blood chemistry[[id number]] Glucose [Mass/volume] in Serum or Plasma [2345-7] 05/02/2024 11:12 AM 210 mg/dL N Blood chemistry[[id number]] Glucose [Mass/volume] in Serum or Plasma [2345-7] 05/01/2024 05:55 PM 105 mg/dL N Blood chemistry[[id number]] Glucose [Mass/volume] in Serum or Plasma [2345-7] 05/01/2024 01:00 PM 118 mg/dL N Blood chemistry[[id number]] Glucose [Mass/volume] in Serum or Plasma [2345-7] 05/01/2024 11:36 AM 263 mg/dL N Blood chemistry[[id number]] Glucose [Mass/volume] in Serum or Plasma [2345-7] 05/01/2024 09:58 AM 139 mg/dL N Blood chemistry[[id number]] Glucose [Mass/volume] in Serum or Plasma [2345-7] 04/30/2024 04:55 PM 73 mg/dL N Blood chemistry[[id number]] Glucose [Mass/volume] in Serum or Plasma [2345-7] 04/30/2024 12:36 PM 127 mg/dL N Glucose [Mass/volume] in Serum or Plasma [2345-7] 04/30/2024 12:36 PM 127 mg/dL N Blood chemistry[[id number]] Glucose [Mass/volume] in Serum or Plasma [2345-7] 04/30/2024 12:02 PM 234 mg/dL N Blood chemistry[[id number]] Glucose [Mass/volume] in Serum or Plasma [2345-7] 04/30/2024 09:36 AM 194 mg/dL N Blood chemistry[[id number]] Glucose [Mass/volume] in Serum or Plasma [2345-7] 04/29/2024 12:43 PM 86 mg/dL N Glucose [Mass/volume] in Serum or Plasma [2345-7] 04/29/2024 12:43 PM 86 mg/dL N Blood chemistry[[id number]] Glucose [Mass/volume] in Serum or Plasma [2345-7] 04/29/2024 12:06 PM 240 mg/dL N Blood chemistry[[id number]] Glucose [Mass/volume] in Serum or Plasma [2345-7] 04/29/2024 09:37 AM 226 mg/dL N Blood chemistry[[id number]] Glucose [Mass/volume] in Serum or Plasma [2345-7] 04/29/2024 06:07 AM 175 mg/dL N COVID-19 Test Viral Antigen null flavor [null] 2024 05:00 PM See note NEG COVID-19 Test Viral Antigen Blood chemistry[[id number]] Glucose [Mass/volume] in Serum or Plasma [2345-7] 2024 03:01 PM 154 mg/dL N Blood chemistry[[id number]] Glucose [Mass/volume] in Serum or Plasma [2345-7] 2024 03:00 PM 154 mg/dL N Blood chemistry[[id number]] Glucose [Mass/volume] in Serum or Plasma [2345-7] 2024 11:42 AM 240 mg/dL N Blood chemistry[[id number]] Glucose [Mass/volume] in Serum or Plasma [2345-7] 2024 10:32 AM 233 mg/dL N Blood chemistry[[id number]] Glucose [Mass/volume] in Serum or Plasma [2345-7] 2024 08:23 AM 154 mg/dL N Glucose [Mass/volume] in Serum or Plasma [2345-7] 2024 08:23 AM 96 mg/dL N Blood chemistry[[id number]] Glucose [Mass/volume] in Serum or Plasma [2345-7] 04/27/2024 05:07 PM 104 mg/dL N Blood chemistry[[id number]] Glucose [Mass/volume] in Serum or Plasma [2345-7] 04/27/2024 02:24 PM 87 mg/dL N Blood chemistry[[id number]] Glucose [Mass/volume] in Serum or Plasma [2345-7] 04/27/2024 01:11 PM 178 mg/dL N Blood chemistry[[id number]] Glucose [Mass/volume] in Serum or Plasma [2345-7] 04/27/2024 11:09 AM 105 mg/dL N Blood chemistry[[id number]] Glucose [Mass/volume] in Serum or Plasma [2345-7] 04/26/2024 05:46 PM 117 mg/dL N Blood chemistry[[id number]] Glucose [Mass/volume] in Serum or Plasma [2345-7] 04/26/2024 03:47 PM 126 mg/dL N Blood chemistry[[id number]] Glucose [Mass/volume] in Serum or Plasma [2345-7] 04/26/2024 01:47 PM 213 mg/dL N Blood chemistry[[id number]] Glucose [Mass/volume] in Serum or Plasma [2345-7] 04/26/2024 09:28 AM 175 mg/dL N Blood chemistry[[id number]] Glucose [Mass/volume] in Serum or Plasma [2345-7] 04/25/2024 04:06 PM 208 mg/dL N Blood chemistry[[id number]] Glucose [Mass/volume] in Serum or Plasma [2345-7] 04/25/2024 02:07 PM 188 mg/dL N Blood chemistry[[id number]] Glucose [Mass/volume] in Serum or Plasma [2345-7] 04/25/2024 12:33 PM 336 mg/dL N Blood chemistry[[id number]] Glucose [Mass/volume] in Serum or Plasma [2345-7] 04/25/2024 10:24 AM 233 mg/dL N Blood chemistry[[id number]] Glucose [Mass/volume] in Serum or Plasma [2345-7] 04/24/2024 04:58 PM 223 mg/dL N Blood chemistry[[id number]] Glucose [Mass/volume] in Serum or Plasma [2345-7] 04/24/2024 02:30 PM 216 mg/dL N Blood chemistry[[id number]] Glucose [Mass/volume] in Serum or Plasma [2345-7] 04/24/2024 12:17 PM 216 mg/dL N Blood chemistry[[id number]] Glucose [Mass/volume] in Serum or Plasma [2345-7] 04/24/2024 12:10 PM 315 mg/dL N Blood chemistry[[id number]] Glucose [Mass/volume] in Serum or Plasma [2345-7] 04/24/2024 10:07 AM 275 mg/dL N Blood chemistry[[id number]] Glucose [Mass/volume] in Serum or Plasma [2345-7] 04/23/2024 04:04 PM 55 mg/dL N Blood chemistry[[id number]] Glucose [Mass/volume] in Serum or Plasma [2345-7] 04/23/2024 12:36 PM 82 mg/dL N Blood chemistry[[id number]] Glucose [Mass/volume] in Serum or Plasma [2345-7] 04/23/2024 11:44 AM 194 mg/dL N Blood chemistry[[id number]] Glucose [Mass/volume] in Serum or Plasma [2345-7] 04/23/2024 09:20 AM 120 mg/dL N Blood chemistry[[id number]] Glucose [Mass/volume] in Serum or Plasma [2345-7] 04/23/2024 07:34 AM 109 mg/dL N Blood chemistry[[id number]] Glucose [Mass/volume] in Serum or Plasma [2345-7] 04/22/2024 04:32 PM 94 mg/dL N Blood chemistry[[id number]] Glucose [Mass/volume] in Serum or Plasma [2345-7] 04/22/2024 02:29 PM 129 mg/dL N Blood chemistry[[id number]] Glucose [Mass/volume] in Serum or Plasma [2345-7] 04/22/2024 11:54 AM 205 mg/dL N Blood chemistry[[id number]] Glucose [Mass/volume] in Serum or Plasma [2345-7] 04/22/2024 10:01 AM 152 mg/dL N COVID-19 Test Viral Antigen null flavor [null] 04/21/2024 05:00 PM See note NEG COVID-19 Test Viral Antigen Blood chemistry[[id number]] Glucose [Mass/volume] in Serum or Plasma [2345-7] 04/21/2024 04:59 PM 156 mg/dL N Glucose [Mass/volume] in Serum or Plasma [2345-7] 04/21/2024 04:59 PM 156 mg/dL N Blood chemistry[[id number]] Glucose [Mass/volume] in Serum or Plasma [2345-7] 04/21/2024 02:14 PM 237 mg/dL N Blood chemistry[[id number]] Glucose [Mass/volume] in Serum or Plasma [2345-7] 04/21/2024 12:42 PM 435 mg/dL N Blood chemistry[[id number]] Glucose [Mass/volume] in Serum or Plasma [2345-7] 04/21/2024 09:38 AM 202 mg/dL N Blood chemistry[[id number]] Glucose [Mass/volume] in Serum or Plasma [2345-7] 04/21/2024 09:37 AM 202 mg/dL N Blood chemistry[[id number]] Glucose [Mass/volume] in Serum or Plasma [2345-7] 04/20/2024 03:59 PM 114 mg/dL N Blood chemistry[[id number]] Glucose [Mass/volume] in Serum or Plasma [2345-7] 04/20/2024 12:17 PM 189 mg/dL N Blood chemistry[[id number]] Glucose [Mass/volume] in Serum or Plasma [2345-7] 04/20/2024 12:13 PM 150 mg/dL N Blood chemistry[[id number]] Glucose [Mass/volume] in Serum or Plasma [2345-7] 04/20/2024 09:23 AM 109 mg/dL N Blood chemistry[[id number]] Glucose [Mass/volume] in Serum or Plasma [2345-7] 04/19/2024 12:46 PM 203 mg/dL N Blood chemistry[[id number]] Glucose [Mass/volume] in Serum or Plasma [2345-7] 04/19/2024 12:44 PM 76 mg/dL N Blood chemistry[[id number]] Glucose [Mass/volume] in Serum or Plasma [2345-7] 04/19/2024 11:02 AM 114 mg/dL N Blood chemistry[[id number]] Glucose [Mass/volume] in Serum or Plasma [2345-7] 04/19/2024 06:58 AM 74 mg/dL N Blood chemistry[[id number]] Glucose [Mass/volume] in Serum or Plasma [2345-7] 04/18/2024 05:27 PM 81 mg/dL N Blood chemistry[[id number]] Glucose [Mass/volume] in Serum or Plasma [2345-7] 04/18/2024 12:44 PM 71 mg/dL N Blood chemistry[[id number]] Glucose [Mass/volume] in Serum or Plasma [2345-7] 04/18/2024 12:24 PM 130 mg/dL N Blood chemistry[[id number]] Glucose [Mass/volume] in Serum or Plasma [2345-7] 04/18/2024 09:50 AM 110 mg/dL N Blood chemistry[[id number]] Glucose [Mass/volume] in Serum or Plasma [2345-7] 04/17/2024 05:04 PM 71 mg/dL N Blood chemistry[[id number]] Glucose [Mass/volume] in Serum or Plasma [2345-7] 04/17/2024 12:31 PM 111 mg/dL N Blood chemistry[[id number]] Glucose [Mass/volume] in Serum or Plasma [2345-7] 04/17/2024 12:11 PM 225 mg/dL N Blood chemistry[[id number]] Glucose [Mass/volume] in Serum or Plasma [2345-7] 04/17/2024 10:48 AM 182 mg/dL N Allergies, adverse reactions, alerts Substance Reaction Date Status Type Penicillins 01/26/2021 Non Drug Immunizations Vaccine Route Date Status COVID-19 Vaccine Unassigned Route of Administration Completed COVID-19 Vaccine Unassigned Route of Administration Completed COVID-19 Vaccine Unassigned Route of Administration Completed COVID-19 Vaccine Unassigned Route of Administration Completed COVID-19 Vaccine Unassigned Route of Administration Completed COVID-19 Vaccine Unassigned Route of Administration Completed COVID-19 Vaccine Unassigned Route of Administration Completed COVID-19 Vaccine Unassigned Route of Administration Refused Influenza Vaccine Unassigned Route of Administration 1 Completed Influenza Vaccine Unassigned Route of Administration 1 Completed Influenza Vaccine Unassigned Route of Administration 1 Completed Influenza Vaccine Unassigned Route of Administration 1 Completed Pneumococcal Vaccine Unassigned Route of Administratio n 05/18/2021 Completed RSV Vaccine Unassigned Route of Administration 2022 Completed Medications Medication Instructions Route Dosage Frequency Start Date Stop Date Indications Status acetaminophen 325 mg capsule (acetaminophen ) 650mg, oral, As Needed, tylenol 2 tabs of 325 mg to equal 650mg PO q 6 hours prn pain fever per standing orders as resident did not want tramadol oral 1.0 1.0 d 11/19 Active amlodipine 5 mg tablet (amlodipine) 1, oral, Once A Day oral 1.0 1.0 d 11/19 Active atorvastatin 10 mg tablet (atorvastatin) 1, oral, At Bedtime oral 1.0 11/19 Active Claritin (loratadine) 10 mg tablet (Claritin (loratadine)) 1, oral, Once A Day oral 1.0 1.0 d 11/19 Active clonidine HCl 0.3 mg tablet (clonidine HCl) 1 tab, oral, Every 8 Hours oral 1.0 8.0 h 10/29 Hypertensive chronic kidney disease with stage 1 through stage 4 chronic kidney disease, or unspecified chronic kidney disease Active cyanocobalamin (vitamin B-12) 500 mcg tablet (cyanocobalami n (vitamin B-12)) / tab = 250mcg, oral, Once A Day oral 1.0 1.0 d 11/19 Deficiency of other specified B group vitamins Active diltiazem HCl 180 mg capsule,extend ed release 24 hr (diltiazem HCl) 2, oral, Once A Day oral 1.0 1.0 d 11/19 Active Dulcolax (bisacodyl) (bisacodyl) 5 mg tablet,delayed release (DR/EC) (Dulcolax (bisacodyl) (bisacodyl)) 2 tabs/10mg, oral, Once A Day - PRN, as needed for constipation oral 1.0 1.0 d 11/19 Active Dulcolax (bisacodyl) (bisacodyl) 10 mg suppository (Dulcolax (bisacodyl) (bisacodyl)) 1 suppository, rectal, Once A Day - PRN, Give rectally if can't take p/o as needed for constipation rectal 1.0 1.0 d 11/19 Active Eliquis (apixaban) 5 mg tablet (Eliquis (apixaban)) 1 tab, oral, Twice A Day, clinical indication: prevent blood clots oral 1.0 12.0 h 11/19 Unspecified atrial fibrillation Active gabapentin 100 mg capsule (gabapentin) 1 cap, oral, At Bedtime oral 1.0 11/19 Active hydralazine 100 mg tablet (hydralazine) 1 tab, oral, Every 8 Hours oral 1.0 8.0 h 11/19 Active Jardiance (empagliflozin ) 10 mg tablet (Jardiance (empagliflozin )) 1, oral, Once A Day oral 1.0 1.0 d 11/19 Active Klor-Con 10 (potassium chloride) 10 mEq tablet extended release (Klor-Con 10 (potassium chloride)) 1, oral, Once A Day oral 1.0 1.0 d 11/19 Active Lantus Solostar U-100 Insulin (insulin glargine) 100 unit/mL (3 mL) insulin pen (Lantus Solostar U-100 Insulin (insulin glargine)) 50 units, subcutaneous, At Bedtime, clinical indication :DM subcutane ous 1.0 10/29 Active Lasix (furosemide) 40 mg tablet (Lasix (furosemide)) 1, oral, Once A Day oral 1.0 1.0 d 11/19 Active lisinopril 20 mg tablet (lisinopril) 1 tab, oral, Twice A Day oral 1.0 12.0 h 11/19 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 Active metformin 1,000 mg tablet (metformin) 1 tab, oral, Twice A Day, clinical indication: DM oral 1.0 12.0 h 11/19 Active metoprolol succinate 50 mg tablet extended release 24 hr (metoprolol succinate) 1, oral, Once A Day, Hold if blood pressure <160/80 or Heart rate <60 oral 1.0 1.0 d 09/03 Active Novolog FlexPen U-100 Insulin (insulin aspart u-100) 100 unit/mL (3 mL) insulin pen (Novolog FlexPen U-100 Insulin (insulin aspart u-100)) Per Sliding Scale, subcutaneous, Before Meals, If Blood Sugar is 150 to 200, give 0 Units.If Blood Sugar is 201 to 250, give 2 Units.If Blood Sugar is 251 to 300, give 4 Units.If Blood Sugar is 301 to 350, give 6 Units.If Blood Sugar is 351 to 400, give 8 Units.If Blood Sugar is greater than 400, give 8 Units., Call PCP is BS is <60 and >400 if symptomatic x 3 readings subcutane ous 1.0 11/19 Active Ocuvite Eye Health (Lutein/Zeaxan thin, Sunray 3, Zinc, Vitamins) [id number] capsule (Ocuvite Eye Health (Lutein/Zeaxan thin, Sunray 3, Zinc, Vitamins)) 1, oral, At Bedtime, Resident Provides oral 1.0 11/19 Active tamsulosin 0.4 mg capsule (tamsulosin) 1 cap, oral, At Bedtime oral 1.0 11/19 Benign prostatic hyperplasia without lower urinary tract symptoms Active tramadol 50 mg tablet (tramadol) 1 tab, oral, Every 6 Hours - PRN, clinical indication: Pain oral 1.0 6.0 h 11/19 Active Trulicity (dulaglutide) 0.75 mg/0.5 mL pen injector (Trulicity (dulaglutide)) 0.5ml, subcutaneous, Once a Day on Mon subcutane ous 1.0 1.0 d 11/19 Active Zoloft (sertraline) 50 mg tablet (Zoloft (sertraline)) 1, oral, At Bedtime oral 1.0 11/05 Major depressive disorder, recurrent, moderate Active cefdinir 300 mg capsule (cefdinir) 1, oral, Twice A Day, 1 tab po bid x 7 days oral 1.0 12.0 h 07/02 Active Lantus Solostar U-100 Insulin (insulin glargine) 100 unit/mL (3 mL) insulin pen (Lantus Solostar U-100 Insulin (insulin glargine)) 55 units, subcutaneous, At Bedtime, clinical indication :DM subcutane ous 1.0 07/09 Active Zithromax Z-Lele (azithromycin) 250 mg tablet (Zithromax Z-Lele (azithromycin) ) 2, oral, Once - One Time oral 1.0 06/25 Active Zithromax Z-Lele (azithromycin) 250 mg tablet (Zithromax Z-Lele (azithromycin) ) 1, oral, Once A Day, 1 tab po x4 days oral 1.0 1.0 d 06/30 Active metoprolol succinate 25 mg tablet extended release 24 hr (metoprolol succinate) 1, oral, Once A Day, Hold if heart rate less than 60 oral 1.0 1.0 d 11/05 Active clonidine HCl 0.2 mg tablet (clonidine HCl) 1, oral, Three Times A Day oral 1.0 8.0 h 11/05 Active Lantus Solostar U-100 Insulin (insulin glargine) 100 unit/mL (3 mL) insulin pen (Lantus Solostar U-100 Insulin (insulin glargine)) 30 units, subcutaneous, At Bedtime, clinical indication :DM subcutane ous 1.0 11/05 Active Lantus Solostar U-100 Insulin (insulin glargine) 100 unit/mL (3 mL) insulin pen (Lantus Solostar U-100 Insulin (insulin glargine)) 20 Units, subcutaneous, At Bedtime, clinical indication :DM subcutane ous 1.0 11/19 Active Zoloft (sertraline) 100 mg tablet (Zoloft (sertraline)) 1, oral, At Bedtime oral 1.0 11/19 Major depressive disorder, recurrent, moderate Active clonidine HCl 0.1 mg tablet (clonidine HCl) 1, oral, Three Times A Day oral 1.0 8.0 h 11/19 Active Abrysvo (rsv vac, pref a and pref b(pf)) 120 mcg/0.5 mL recon soln (Abrysvo (rsv vac, pref a and pref b(pf))) 0.5ml, intramuscular , Once - One Time, Clinical indication: RSV vaccination intramusc ular 1.0 11/18 Active Afluria Qd 2022-(3yr up)(PF) (flu vac [id number] 36mos up(pf)) 60 mcg (15 mcg x 4)/0.5 mL syringe (Afluria Qd 2022-(3yr up)(PF) (flu vac [id number] 36mos up(pf))) 0.5ml, intramuscular , Once - One Time, clinical indication: flu vaccination intramusc ular 1.0 11/18 Active Afluria Quad 2557-7386(6mo up) (flu vaccine [id number](6mos up)) 60 mcg (15 mcg x 4)/0.5 m suspension (Afluria Quad (6mo up) (flu vaccine [id number](6mos up))) 0.5ml, intramuscular , Once - One Time intramusc ular 1.0 11/18 Active Afluria Quad (6mo up) (flu vaccine [id number](6mos up)) 60 mcg (15 mcg x 4)/0.5 mL suspension (Afluria Quad (6mo up) (flu vaccine [id number](6mos up))) 0.5 ml, intramuscular , Once - One Time, clinical indication flu season intramusc ular 1.0 11/18 Active albuterol sulfate 2.5 mg /3 mL (0.083 %) solution for nebulization (albuterol sulfate) 1, inhalation, Every 4 Hours, administer while awake only inhalatio n 1.0 4.0 h 11/18 Active albuterol sulfate 2.5 mg /3 mL (0.083 %) solution for nebulization (albuterol sulfate) 1 inh, inhalation, Every 4 Hours, administer every 4 hours while awake for cough and congestion inhalatio n 1.0 4.0 h 11/18 Active cefdinir 300 mg capsule (cefdinir) 1, oral, Twice A Day, 1 tab po bid x 7 days oral 1.0 12.0 h 11/18 Active cefuroxime axetil 250 mg tablet (cefuroxime axetil) 1, oral, Twice A Day oral 1.0 12.0 h 11/18 Active cephalexin 500 mg capsule (cephalexin) 1 tab, oral, Three Times A Day, clinical indication: cutaneous abscess oral 1.0 8.0 h 11/18 Active CeraVe Itch Relief (pramoxine) 1 % lotion (CeraVe Itch Relief (pramoxine)) as directed, topical, Every Shift, Apply to entire back thickly q shift bid x 10 days topical 1.0 8.0 h 11/18 Active clindamycin HCl 150 mg capsule (clindamycin HCl) 1 capsule, oral, Three Times A Day oral 1.0 8.0 h 11/18 Active clonidine HCl 0.2 mg tablet (clonidine HCl) 1, oral, Three Times A Day oral 1.0 8.0 h 11/18 Active doxycycline hyclate 100 mg tablet (doxycycline hyclate) 1, oral, Twice A Day oral 1.0 12.0 h 11/18 Active ipratropium-al buterol 0.5 mg-3 mg(2.5 mg base)/3 mL solution for nebulization (ipratropium-a lbuterol) 0.5/2.5, inhalation, Every 4 Hours inhalatio n 1.0 4.0 h 11/18 Active Pneumovax-23 (pneumococcal 23-lexa ps vaccine) 25 mcg/0.5 mL syringe (Pneumovax-23 (pneumococcal 23-lexa ps vaccine)) 1 syringe, injection, Once - One Time 1.0 11/18 Active prednisone 20 mg tablet (prednisone) 2, oral, Once A Day oral 1.0 1.0 d 11/18 Active Prevnar 13 (PF) (pneumoc 13-lexa conj-dip cr(pf)) 0.5 mL syringe (Prevnar 13 (PF) (pneumoc 13-lexa conj-dip cr(pf))) 0.5ml, intramuscular , Once - One Time, clinical indication pneumonia vaccine intramusc ular 1.0 11/18 Active Solu-Medrol (PF) (methylprednis olone sod suc(pf)) 125 mg/2 mL recon soln (Solu-Medrol (PF) (methylprednis olone sod suc(pf))) 80mg, injection, STAT - Immediately 1.0 11/18 Active tramadol 50 mg tablet (tramadol) 1 tab, oral, Every 6 Hours - PRN, clinical indication: Pain oral 1.0 6.0 h 11/18 Active Tubersol (tuberculin ppd) 5 tub. unit /0.1 mL solution (Tubersol (tuberculin ppd)) 0.1ml, intradermal, Once - One Time, Administer the morning after admission intraderm al 1.0 11/18 Active Tubersol (tuberculin ppd) 5 tub. unit /0.1 mL solution (Tubersol (tuberculin ppd)) 0.1ml, intradermal, Once - One Time, Administer on the day shift intraderm al 1.0 11/18 Active warfarin 10 mg tablet (warfarin) 1 tab, oral, Once A Day Every Other Day oral 1.0 1.0 d 11/18 Unspecified atrial fibrillation Active warfarin 7.5 mg tablet (warfarin) 1 tab, oral, Once - One Time oral 1.0 11/18 Active warfarin 5 mg tablet (warfarin) 1 tab, oral, Once - One Time oral 1.0 11/18 Active warfarin 5 mg tablet (warfarin) 1 tab, oral, Once - One Time oral 1.0 11/18 Active Zithromax Z-Lele (azithromycin) 250 mg tablet (Zithromax Z-Lele (azithromycin) ) 2, oral, Once - One Time oral 1.0 11/18 Active Zithromax Z-Lele (azithromycin) 250 mg tablet (Zithromax Z-Lele (azithromycin) ) 1, oral, Once A Day, 1 tab po x4 days oral 1.0 1.0 d 11/18 Active amlodipine 5 mg tablet (amlodipine) 1 tab, oral, Once A Day oral 1.0 1.0 d 2024 Active atorvastatin 10 mg tablet (atorvastatin) 1 tab, oral, At Bedtime oral 1.0 2024 Active clonidine HCl 0.1 mg tablet (clonidine HCl) 1 tab, oral, Three Times A Day oral 1.0 8.0 h 2024 Active cyanocobalamin (vitamin B-12) 250 mcg tablet (cyanocobalami n (vitamin B-12)) 1 tab, oral, Once A Day oral 1.0 1.0 d 11/25 Active diltiazem HCl 180 mg capsule,ext.re l 24h degradable (diltiazem HCl) 2 capsules, oral, Once A Day oral 1.0 1.0 d 11/25 Active Dulcolax (bisacodyl) (bisacodyl) 10 mg suppository (Dulcolax (bisacodyl) (bisacodyl)) 1 suppository, rectal, Once A Day - PRN, Give rectally if can't take p/o, [place] [facility] [place] 1.0 1.0 d 2024 Active Dulcolax (bisacodyl) (bisacodyl) 5 mg tablet,delayed release (DR/EC) (Dulcolax (bisacodyl) (bisacodyl)) 2 tabs/10mg, oral, Once A Day - PRN, Give if [place] [facility] [place] 1.0 1.0 d 2024 Active Eliquis (apixaban) 5 mg tablet (Eliquis (apixaban)) 1 tab, oral, Twice A Day oral 1.0 12.0 h 2024 Active furosemide 40 mg tablet (furosemide) 1 tab, oral, Once A Day oral 1.0 1.0 d 11/26 Active gabapentin 100 mg capsule (gabapentin) 1 capsule, oral, At Bedtime oral 1.0 12/03 Active hydralazine 100 mg tablet (hydralazine) 1 tab, oral, Every 8 Hours oral 1.0 8.0 h 2024 Active Jardiance (empagliflozin ) 10 mg tablet (Jardiance (empagliflozin )) 1 tab, oral, Once A Day oral 1.0 1.0 d 2024 Active Lantus U-100 Insulin (insulin glargine) 100 unit/mL solution (Lantus U-100 Insulin (insulin glargine)) 20 units, subcutaneous, At Bedtime subcutane ous 1.0 11/24 Active lisinopril 20 mg tablet (lisinopril) 1 tab, oral, Twice A Day oral 1.0 12.0 h 12/03 Active loratadine 10 mg tablet (loratadine) 1 tab, oral, Once A Day oral 1.0 1.0 d 12/03 Active metformin 1,000 mg tablet (metformin) 1 tab, oral, twice daily with meals oral 1.0 11/26 Active Milk of Magnesia (magnesium hydroxide) 400 mg/5 mL suspension (Milk of Magnesia (magnesium hydroxide)) 30 ml, oral, Every 72 Hours - PRN, if no BM in 3 daysDO NOT GIVE TO RENAL PATIENTS--GO TO [facility] oral 1.0 72.0 h 2024 Active Novolog FlexPen U-100 Insulin (insulin aspart u-100) 100 unit/mL (3 mL) insulin pen (Novolog FlexPen U-100 Insulin (insulin aspart u-100)) Per Sliding Scale, subcutaneous, Before Meals and At Bedtime, If Blood Sugar is 150 to 200, give 0 Units.If Blood Sugar is 201 to 250, give 2 Units.If Blood Sugar is 251 to 300, give 4 Units.If Blood Sugar is 301 to 350, give 6 Units.If Blood Sugar is 351 to 400, give 8 Units.If Blood Sugar is greater than 400, give 8 Units., Call PCP is BS is <60 and >400 if symptomatic x 3 readings subcutane ous 1.0 2024 Active Ocuvite with Lutein (vit a,c and s-wjphbe-ladbu als) 300 mcg-200 mg-27 mg-2 mg tablet (Ocuvite with Lutein (vit a,c and i-dkrhng-kucek als)) 1 tab, oral, At Bedtime oral 1.0 2024 Active potassium chloride 10 mEq capsule, extended release (potassium chloride) 1 tab, oral, Once A Day oral 1.0 1.0 d 12/03 Active sertraline 100 mg tablet (sertraline) 1 tab, oral, At Bedtime oral 1.0 2024 Active tamsulosin 0.4 mg capsule (tamsulosin) 1 capsule, oral, Once A Day oral 1.0 1.0 d 2024 Active tramadol 50 mg tablet (tramadol) 1 tab, oral, give 1 tab Q 6hr as needed for pain oral 1.0 11/26 Active Trulicity (dulaglutide) 0.75 mg/0.5 mL pen injector (Trulicity (dulaglutide)) inject 0.75mg, subcutaneous, Once a Day on Mon subcutane ous 1.0 1.0 d 2024 Active Tylenol (acetaminophen ) 325 mg tablet (Tylenol (acetaminophen )) 2 tabs/650mg, oral, Every 6 Hours - PRN, as needed for PRN pain/increase d tempMay give rectally if necessary oral 1.0 6.0 h 2024 Active Lantus Solostar U-100 Insulin (insulin glargine) 100 unit/mL (3 mL) insulin pen (Lantus Solostar U-100 Insulin (insulin glargine)) 20 units, subcutaneous, At Bedtime subcutane ous 1.0 2024 Active cyanocobalamin (vitamin B-12) 500 mcg tablet (cyanocobalami n (vitamin B-12)) 0.5 tab (250 mcg), oral, Once A Day oral 1.0 1.0 d 2024 Active diltiazem HCl 360 mg capsule,extend ed release 24hr (diltiazem HCl) 1 cap, oral, Once A Day oral 1.0 1.0 d 2024 Active lactulose 10 gram/15 mL solution (lactulose) 30ml, oral, Once A Day - PRN, Clinical indication: Constipation oral 1.0 1.0 d 2024 Active Lasix (furosemide) 20 mg tablet (Lasix (furosemide)) 1, oral, Once A Day oral 1.0 1.0 d 12/03 Active metformin 500 mg tablet (metformin) 1, oral, Twice A Day oral 1.0 12.0 h 12/03 Active nystatin 100,000 unit/gram powder (nystatin) as directed, topical, Every Shift, Apply to groin q shift due to redness topical 1.0 8.0 h 12/06 Active ondansetron 8 mg tablet,disinte grating (ondansetron) 1, oral, Every 6 Hours - PRN, clinical indication N/V oral 1.0 6.0 h 2024 Active pantoprazole 40 mg tablet,delayed release (DR/EC) (pantoprazole) 1, oral, Twice A Day oral 1.0 12.0 h 12/10 Active tramadol 50 mg tablet (tramadol) 1 tab, oral, Every 6 Hours - PRN, Clinical indication pain oral 1.0 6.0 h 2024 Active nystatin 100,000 unit/gram powder (nystatin) as directed, topical, Every Shift, Apply to groin areas q shift due to redness topical 1.0 8.0 h 12/06 Active lactulose 10 gram/15 mL solution (lactulose) 30ml, oral, Every 4 Hours, Administer 30ml every 4 hours until have a BM then discontinue the order oral 1.0 4.0 h 11/27 Active nystatin 100,000 unit/gram powder (nystatin) as directed, topical, Every Shift, Apply to groin q shift due to redness topical 1.0 8.0 h 11/27 Active nystatin 100,000 unit/gram powder (nystatin) as directed, topical, Every Shift, Apply under breasts, ABD folds, and groin areas q shift due to redness topical 1.0 8.0 h 11/27 Active lisinopril 10 mg tablet (lisinopril) 1, oral, Once A Day oral 1.0 1.0 d 2024 Active Bactrim DS (sulfamethoxaz ole-trimethopr im) 800-160 mg tablet (Bactrim DS (sulfamethoxaz ole-trimethopr im)) 800-150mg, oral, Twice A Day, Bactrim DS 800/150mg one tablet by mouth twice daily for 5 days (uti) oral 1.0 12.0 h 12/09 Active Silvadene (silver sulfadiazine) 1 % cream (Silvadene (silver sulfadiazine)) as directed, topical, Every Shift, Bilateral buttock: Cleanse with ns and gauze, apply silvadene cream and cover with foam dressing topical 1.0 8.0 h 2024 Active Vital Signs Date Vital Result Comment 07/15/2024 06:33 PM Blood Pressure Systolic (8480-6) 1 25 mm[Hg] Blood Pressure Diastolic (8462-4) 58 mm[Hg] 07/15/2024 07:24 AM Heart Rate (8867-4) 67 /min Blood Pressure Systolic (8480-6) 132 mm[Hg] Blood Pressure Diastolic (8462-4) 74 mm[Hg] 07/15/2024 07:23 AM Heart Rate (8867-4) 71 /min 07/15/2024 05:31 AM Blood Pressure Systolic (8480-6) 1 26 mm[Hg] Blood Pressure Diastolic (8462-4) 80 mm[Hg] 07/14/2024 06:50 PM Blood Pressure Systolic (8480-6) 1 60 mm[Hg] Blood Pressure Diastolic (8462-4) 78 mm[Hg] 07/14/2024 01:06 PM Blood Pressure Systolic (8480-6) 1 36 mm[Hg] Blood Pressure Diastolic (8462-4) 80 mm[Hg] 07/14/2024 07:22 AM Heart Rate (8867-4) 75 /min Blood Pressure Systolic (8480-6) 131 mm[Hg] Blood Pressure Diastolic (8462-4) 76 mm[Hg] 07/14/2024 07:21 AM Heart Rate (8867-4) 75 /min 07/14/2024 05:40 AM Blood Pressure Systolic (8480-6) 1 40 mm[Hg] Blood Pressure Diastolic (8462-4) 88 mm[Hg] 07/13/2024 10:35 PM Blood Pressure Systolic (8480-6) 1 50 mm[Hg] Blood Pressure Diastolic (8462-4) 80 mm[Hg] 07/13/2024 03:11 PM Blood Pressure Systolic (8480-6) 1 38 mm[Hg] Blood Pressure Diastolic (8462-4) 94 mm[Hg] 07/13/2024 08:17 AM Heart Rate (8867-4) 75 /min Blood Pressure Systolic (8480-6) 147 mm[Hg] Blood Pressure Diastolic (8462-4) 88 mm[Hg] 07/12/2024 07:32 AM Heart Rate (8867-4) 54 /min 07/11/2024 08:30 AM Heart Rate (8867-4) 66 /min 07/10/2024 12:49 PM Body Weight (17775-8) 203.8 [lb_av ] Body Mass Index (00436-7) 30.98 kg/m2 07/10/2024 07:02 AM Heart Rate (8867-4) 70 /min 07/09/2024 05:11 PM Body Weight (26100-1) 201.4 [lb_av ] Body Mass Index (65435-6) 30.62 kg/m2 07/09/2024 10:09 AM Temperature (8310-5) 98.5 [degF] Oxygen Saturation (59417-8) 98 % Respiratory Rate (9279-1) 18 /min Heart Rate (8867-4) 59 /min 07/09/2024 09:54 AM Heart Rate (8867-4) 59 /min 07/09/2024 08:42 AM Body Weight (62293-5) 201.8 [lb_av ] Body Mass Index (55565-1) 30.68 kg/m2 07/08/2024 01:48 PM Body Weight (41023-2) 201.7 [lb_av ] Body Mass Index (81097-0) 30.67 kg/m2 07/07/2024 04:58 PM Body Weight (81344-5) 201.8 [lb_av ] Body Mass Index (55952-8) 30.68 kg/m2 07/06/2024 03:25 PM Body Weight (18800-2) 200.4 [lb_av ] Body Mass Index (33935-5) 30.47 kg/m2 07/02/2024 09:51 AM Temperature (8310-5) 98 [degF] Oxygen Saturation (77939-5) 92 % Respiratory Rate (9279-1) 17 /min 06/25/2024 07:21 AM Body Weight (08381-5) 204.6 [lb_av ] Body Mass Index (70176-5) 31.11 kg/m2 06/18/2024 11:23 AM Body Weight (52875-4) 201.4 [lb_av ] Body Mass Index (01598-7) 30.62 kg/m2 06/18/2024 10:10 AM Temperature (8310-5) 97.8 [degF] Oxygen Saturation (64665-8) 94 % Respiratory Rate (9279-1) 19 /min 06/11/2024 10:34 AM Temperature (8310-5) 98.5 [degF] Oxygen Saturation (43595-8) 94 % Respiratory Rate (9279-1) 19 /min Body Weight (45143-9) 202 [lb_av] Body Mass Index (25500-1) 30.71 kg/m2 06/10/2024 04:56 PM Body Weight (54180-3) 198.8 [lb_av ] Body Mass Index (64946-7) 30.22 kg/m2 06/09/2024 08:38 PM Body Weight (15375-8) 198.8 [lb_av ] Body Mass Index (25938-5) 30.22 kg/m2 06/06/2024 12:30 PM Body Weight (56503-5) 194.6 [lb_av ] Body Mass Index (90827-2) 29.59 kg/m2 06/05/2024 07:48 PM Temperature (8310-5) 98.1 [degF] 06/05/2024 08:23 AM Temperature (8310-5) 98 [degF] 06/04/2024 07:45 PM Temperature (8310-5) 99 [degF] 06/04/2024 01:53 PM Temperature (8310-5) 98 [degF] 06/04/2024 11:55 AM Temperature (8310-5) 97.8 [degF] Oxygen Saturation (02594-5) 95 % Respiratory Rate (9279-1) 17 /min 05/28/2024 10:43 AM Body Weight (58212-3) 203.6 [lb_av ] Body Mass Index (50824-4) 30.95 kg/m2 05/28/2024 07:55 AM Temperature (8310-5) 98.1 [degF] Oxygen Saturation (41428-7) 94 % Respiratory Rate (9279-1) 18 /min 05/21/2024 10:42 AM Oxygen Saturation (87814-0) 95 % Respiratory Rate (9279-1) 17 /min Body Weight (83123-8) 202.4 [lb_av] Body Mass Index (12050-4) 30.77 kg/m2 05/15/2024 07:59 PM Oxygen Saturation (56157-4) 98 % Respiratory Rate (9279-1) 16 /min 05/14/2024 10:22 AM Body Weight (35458-2) 198.6 [lb_av ] Body Mass Index (68877-9) 30.19 kg/m2 05/14/2024 10:18 AM Oxygen Saturation (52367-8) 95 % Respiratory Rate (9279-1) 18 /min 05/07/2024 05:42 PM Body Weight (45264-1) 201.2 [lb_av ] Body Mass Index (70291-2) 30.59 kg/m2 05/07/2024 08:12 AM Oxygen Saturation (67637-1) 98 % Respiratory Rate (9279-1) 20 /min 05/06/2024 10:53 AM Body Weight (56434-9) 202 [lb_av] Body Mass Index (24065-2) 30.71 kg/m2 05/04/2024 11:36 AM Body Weight (95628-3) 201.4 [lb_av ] Body Mass Index (32579-2) 30.62 kg/m2 05/03/2024 12:09 PM Body Weight (87619-6) 200 [lb_av] Body Mass Index (81153-3) 30.41 kg/m2 05/02/2024 06:12 PM Body Weight (79690-4) 200.8 [lb_av ] Body Mass Index (45197-4) 30.53 kg/m2 04/30/2024 08:08 AM Body Weight (09544-9) 201 [lb_av] Body Mass Index (12733-1) 30.56 kg/m2 04/23/2024 07:36 AM Body Weight (09055-4) 203.8 [lb_av ] Body Mass Index (53061-2) 30.98 kg/m2 04/08/2021 11:56 AM Body Height (8302-2) 68 [in_us] 07/16/2024 01:01 PM Blood Pressure Systolic (8480-6) 1 01 mm[Hg] Blood Pressure Diastolic (8462-4) 61 mm[Hg] 07/16/2024 09:36 AM Heart Rate (8867-4) 62 /min Blood Pressure Systolic (8480-6) 118 mm[Hg] Blood Pressure Diastolic (8462-4) 70 mm[Hg] 07/16/2024 05:03 AM Blood Pressure Systolic (8480-6) 1 32 mm[Hg] Blood Pressure Diastolic (8462-4) 71 mm[Hg] 07/17/2024 05:18 AM Blood Pressure Systolic (8480-6) 1 36 mm[Hg] Blood Pressure Diastolic (8462-4) 53 mm[Hg] 07/16/2024 09:06 PM Blood Pressure Systolic (8480-6) 1 43 mm[Hg] Blood Pressure Diastolic (8462-4) 62 mm[Hg] 07/18/2024 03:20 PM Blood Pressure Systolic (8480-6) 1 37 mm[Hg] Blood Pressure Diastolic (8462-4) 74 mm[Hg] 07/18/2024 10:44 AM Heart Rate (8867-4) 64 /min Blood Pressure Systolic (8480-6) 162 mm[Hg] Blood Pressure Diastolic (8462-4) 83 mm[Hg] 07/18/2024 05:06 AM Blood Pressure Systolic (8480-6) 1 54 mm[Hg] Blood Pressure Diastolic (8462-4) 63 mm[Hg] 07/17/2024 06:27 PM Blood Pressure Systolic (8480-6) 1 59 mm[Hg] Blood Pressure Diastolic (8462-4) 82 mm[Hg] 07/17/2024 03:05 PM Blood Pressure Systolic (8480-6) 1 37 mm[Hg] Blood Pressure Diastolic (8462-4) 94 mm[Hg] 07/17/2024 08:12 AM Blood Pressure Systolic (8480-6) 1 93 mm[Hg] Blood Pressure Diastolic (8462-4) 103 mm[Hg] 07/17/2024 08:11 AM Heart Rate (8867-4) 77 /min 07/19/2024 12:38 PM Heart Rate (8867-4) 68 /min Blood Pressure Systolic (8480-6) 132 mm[Hg] Blood Pressure Diastolic (8462-4) 64 mm[Hg] 07/18/2024 11:16 PM Blood Pressure Systolic (8480-6) 1 45 mm[Hg] Blood Pressure Diastolic (8462-4) 80 mm[Hg] 07/20/2024 11:27 AM Heart Rate (8867-4) 65 /min Blood Pressure Systolic (8480-6) 147 mm[Hg] Blood Pressure Diastolic (8462-4) 76 mm[Hg] 07/20/2024 05:41 AM Blood Pressure Systolic (8480-6) 1 32 mm[Hg] Blood Pressure Diastolic (8462-4) 88 mm[Hg] 07/19/2024 11:04 PM Blood Pressure Systolic (8480-6) 1 24 mm[Hg] Blood Pressure Diastolic (8462-4) 88 mm[Hg] 07/19/2024 05:06 PM Blood Pressure Systolic (8480-6) 1 31 mm[Hg] Blood Pressure Diastolic (8462-4) 65 mm[Hg] 07/20/2024 10:41 PM Blood Pressure Systolic (8480-6) 1 40 mm[Hg] Blood Pressure Diastolic (8462-4) 78 mm[Hg] 07/20/2024 06:05 PM Blood Pressure Systolic (8480-6) 1 25 mm[Hg] Blood Pressure Diastolic (8462-4) 61 mm[Hg] 07/22/2024 05:08 AM Blood Pressure Systolic (8480-6) 1 16 mm[Hg] Blood Pressure Diastolic (8462-4) 64 mm[Hg] 07/21/2024 07:43 AM Heart Rate (8867-4) 66 /min Blood Pressure Systolic (8480-6) 136 mm[Hg] Blood Pressure Diastolic (8462-4) 79 mm[Hg] 07/23/2024 07:45 AM Heart Rate (8867-4) 69 /min Blood Pressure Systolic (8480-6) 158 mm[Hg] Blood Pressure Diastolic (8462-4) 67 mm[Hg] 07/23/2024 05:36 AM Blood Pressure Systolic (8480-6) 1 29 mm[Hg] Blood Pressure Diastolic (8462-4) 65 mm[Hg] 07/22/2024 06:44 PM Blood Pressure Systolic (8480-6) 1 19 mm[Hg] Blood Pressure Diastolic (8462-4) 70 mm[Hg] 07/22/2024 11:26 AM Blood Pressure Systolic (8480-6) 1 34 mm[Hg] Blood Pressure Diastolic (8462-4) 67 mm[Hg] 07/24/2024 08:28 AM Heart Rate (8867-4) 66 /min Blood Pressure Systolic (8480-6) 173 mm[Hg] Blood Pressure Diastolic (8462-4) 102 mm[Hg] 07/24/2024 05:08 AM Blood Pressure Systolic (8480-6) 1 26 mm[Hg] Blood Pressure Diastolic (8462-4) 55 mm[Hg] 07/23/2024 07:05 PM Blood Pressure Systolic (8480-6) 1 47 mm[Hg] Blood Pressure Diastolic (8462-4) 71 mm[Hg] 07/23/2024 11:07 AM Temperature (8310-5) 98.9 [degF] Oxygen Saturation (89526-0) 96 % Respiratory Rate (9279-1) 19 /min Heart Rate (8867-4) 69 /min 07/24/2024 06:38 PM Blood Pressure Systolic (8480-6) 1 37 mm[Hg] Blood Pressure Diastolic (8462-4) 70 mm[Hg] 07/24/2024 02:03 PM Blood Pressure Systolic (8480-6) 1 54 mm[Hg] Blood Pressure Diastolic (8462-4) 82 mm[Hg] 07/25/2024 09:25 PM Blood Pressure Systolic (8480-6) 1 58 mm[Hg] Blood Pressure Diastolic (8462-4) 8 mm[Hg] 07/25/2024 04:51 PM Blood Pressure Systolic (8480-6) 1 23 mm[Hg] Blood Pressure Diastolic (8462-4) 64 mm[Hg] 07/25/2024 10:02 AM Heart Rate (8867-4) 55 /min Blood Pressure Systolic (8480-6) 138 mm[Hg] Blood Pressure Diastolic (8462-4) 79 mm[Hg] 07/25/2024 05:24 AM Blood Pressure Systolic (8480-6) 1 06 mm[Hg] Blood Pressure Diastolic (8462-4) 91 mm[Hg] 07/26/2024 02:12 PM Blood Pressure Systolic (8480-6) 1 22 mm[Hg] Blood Pressure Diastolic (8462-4) 59 mm[Hg] 07/26/2024 07:38 AM Heart Rate (8867-4) 54 /min Blood Pressure Systolic (8480-6) 119 mm[Hg] Blood Pressure Diastolic (8462-4) 75 mm[Hg] 07/26/2024 09:54 PM Blood Pressure Systolic (8480-6) 1 31 mm[Hg] Blood Pressure Diastolic (8462-4) 61 mm[Hg] 07/27/2024 03:43 PM Blood Pressure Systolic (8480-6) 1 52 mm[Hg] Blood Pressure Diastolic (8462-4) 82 mm[Hg] 07/27/2024 08:50 AM Heart Rate (8867-4) 80 /min 07/27/2024 08:49 AM Blood Pressure Systolic (8480-6) 1 60 mm[Hg] Blood Pressure Diastolic (8462-4) 89 mm[Hg] 07/28/2024 01:57 PM Blood Pressure Systolic (8480-6) 1 20 mm[Hg] Blood Pressure Diastolic (8462-4) 60 mm[Hg] 07/28/2024 07:44 AM Heart Rate (8867-4) 69 /min Blood Pressure Systolic (8480-6) 131 mm[Hg] Blood Pressure Diastolic (8462-4) 71 mm[Hg] 07/27/2024 10:53 PM Blood Pressure Systolic (8480-6) 1 28 mm[Hg] Blood Pressure Diastolic (8462-4) 64 mm[Hg] 07/29/2024 03:37 PM Blood Pressure Systolic (8480-6) 1 10 mm[Hg] Blood Pressure Diastolic (8462-4) 61 mm[Hg] 07/29/2024 08:55 AM Blood Pressure Systolic (8480-6) 1 80 mm[Hg] Blood Pressure Diastolic (8462-4) 98 mm[Hg] 07/29/2024 08:54 AM Heart Rate (8867-4) 80 /min 07/29/2024 04:35 AM Blood Pressure Systolic (8480-6) 1 03 mm[Hg] Blood Pressure Diastolic (8462-4) 60 mm[Hg] 07/28/2024 06:40 PM Blood Pressure Systolic (8480-6) 1 25 mm[Hg] Blood Pressure Diastolic (8462-4) 67 mm[Hg] 07/30/2024 08:33 AM Temperature (8310-5) 98.2 [degF] Oxygen Saturation (67222-2) 96 % Respiratory Rate (9279-1) 20 /min Heart Rate (8867-4) 89 /min Blood Pressure Systolic (8480-6) 154 mm[Hg] Blood Pressure Diastolic (8462-4) 71 mm[Hg] 07/30/2024 07:34 AM Blood Pressure Systolic (8480-6) 1 32 mm[Hg] Blood Pressure Diastolic (8462-4) 65 mm[Hg] 07/30/2024 07:33 AM Heart Rate (8867-4) 76 /min 07/30/2024 05:09 AM Blood Pressure Systolic (8480-6) 1 24 mm[Hg] Blood Pressure Diastolic (8462-4) 78 mm[Hg] 07/30/2024 05:08 AM Blood Pressure Systolic (8480-6) 1 24 mm[Hg] Blood Pressure Diastolic (8462-4) 78 mm[Hg] 07/29/2024 06:26 PM Blood Pressure Systolic (8480-6) 1 50 mm[Hg] Blood Pressure Diastolic (8462-4) 75 mm[Hg] 07/31/2024 05:27 AM Blood Pressure Systolic (8480-6) 1 18 mm[Hg] Blood Pressure Diastolic (8462-4) 58 mm[Hg] 07/30/2024 06:37 PM Blood Pressure Systolic (8480-6) 1 46 mm[Hg] Blood Pressure Diastolic (8462-4) 70 mm[Hg] 07/31/2024 09:05 PM Blood Pressure Systolic (8480-6) 1 50 mm[Hg] Blood Pressure Diastolic (8462-4) 80 mm[Hg] 07/31/2024 01:50 PM Blood Pressure Systolic (8480-6) 1 49 mm[Hg] Blood Pressure Diastolic (8462-4) 73 mm[Hg] 07/31/2024 07:33 AM Heart Rate (8867-4) 68 /min Blood Pressure Systolic (8480-6) 164 mm[Hg] Blood Pressure Diastolic (8462-4) 78 mm[Hg] 08/01/2024 03:28 PM Blood Pressure Systolic (8480-6) 1 40 mm[Hg] Blood Pressure Diastolic (8462-4) 88 mm[Hg] 08/01/2024 09:58 AM Heart Rate (8867-4) 55 /min Blood Pressure Systolic (8480-6) 127 mm[Hg] Blood Pressure Diastolic (8462-4) 77 mm[Hg] 08/01/2024 04:52 AM Blood Pressure Systolic (8480-6) 1 18 mm[Hg] Blood Pressure Diastolic (8462-4) 76 mm[Hg] 08/02/2024 10:10 AM Heart Rate (8867-4) 52 /min 08/02/2024 10:08 AM Blood Pressure Systolic (8480-6) 1 27 mm[Hg] Blood Pressure Diastolic (8462-4) 58 mm[Hg] 08/01/2024 07:01 PM Blood Pressure Systolic (8480-6) 1 65 mm[Hg] Blood Pressure Diastolic (8462-4) 80 mm[Hg] 08/03/2024 04:55 AM Blood Pressure Systolic (8480-6) 1 21 mm[Hg] Blood Pressure Diastolic (8462-4) 80 mm[Hg] 08/02/2024 10:42 PM Blood Pressure Systolic (8480-6) 1 32 mm[Hg] Blood Pressure Diastolic (8462-4) 68 mm[Hg] 08/02/2024 06:31 PM Blood Pressure Systolic (8480-6) 1 24 mm[Hg] Blood Pressure Diastolic (8462-4) 67 mm[Hg] 08/03/2024 03:00 PM Blood Pressure Systolic (8480-6) 1 21 mm[Hg] Blood Pressure Diastolic (8462-4) 68 mm[Hg] 08/03/2024 08:40 AM Heart Rate (8867-4) 56 /min Blood Pressure Systolic (8480-6) 104 mm[Hg] Blood Pressure Diastolic (8462-4) 62 mm[Hg] 08/04/2024 07:24 AM Heart Rate (8867-4) 62 /min Blood Pressure Systolic (8480-6) 129 mm[Hg] Blood Pressure Diastolic (8462-4) 65 mm[Hg] 08/04/2024 05:24 AM Blood Pressure Systolic (8480-6) 1 42 mm[Hg] Blood Pressure Diastolic (8462-4) 80 mm[Hg] 08/03/2024 10:52 PM Blood Pressure Systolic (8480-6) 1 40 mm[Hg] Blood Pressure Diastolic (8462-4) 70 mm[Hg] 08/05/2024 07:13 AM Heart Rate (8867-4) 69 /min Blood Pressure Systolic (8480-6) 136 mm[Hg] Blood Pressure Diastolic (8462-4) 75 mm[Hg] 08/05/2024 05:09 AM Blood Pressure Systolic (8480-6) 1 10 mm[Hg] Blood Pressure Diastolic (8462-4) 78 mm[Hg] 08/04/2024 07:58 PM Blood Pressure Systolic (8480-6) 1 08 mm[Hg] Blood Pressure Diastolic (8462-4) 58 mm[Hg] 08/06/2024 02:26 PM Temperature (8310-5) 98 [degF] Oxygen Saturation (59573-8) 93 % Respiratory Rate (9279-1) 19 /min Heart Rate (8867-4) 80 /min Blood Pressure Systolic (8480-6) 119 mm[Hg] Blood Pressure Diastolic (8462-4) 63 mm[Hg] 08/06/2024 12:34 PM Body Weight (08028-8) 188.2 [lb_av ] Body Mass Index (80072-1) 28.61 kg/m2 08/06/2024 07:23 AM Heart Rate (8867-4) 65 /min Blood Pressure Systolic (8480-6) 139 mm[Hg] Blood Pressure Diastolic (8462-4) 65 mm[Hg] 08/06/2024 05:12 AM Blood Pressure Systolic (8480-6) 1 47 mm[Hg] Blood Pressure Diastolic (8462-4) 74 mm[Hg] 08/05/2024 06:54 PM Blood Pressure Systolic (8480-6) 1 36 mm[Hg] Blood Pressure Diastolic (8462-4) 74 mm[Hg] 08/07/2024 04:28 PM Body Weight (33203-5) 188.5 [lb_av ] Body Mass Index (67028-0) 28.66 kg/m2 08/07/2024 04:26 PM Blood Pressure Systolic (8480-6) 1 48 mm[Hg] Blood Pressure Diastolic (8462-4) 93 mm[Hg] 08/07/2024 07:57 AM Heart Rate (8867-4) 91 /min Blood Pressure Systolic (8480-6) 148 mm[Hg] Blood Pressure Diastolic (8462-4) 89 mm[Hg] 08/07/2024 04:24 AM Blood Pressure Systolic (8480-6) 1 38 mm[Hg] Blood Pressure Diastolic (8462-4) 76 mm[Hg] 08/06/2024 06:34 PM Blood Pressure Systolic (8480-6) 1 04 mm[Hg] Blood Pressure Diastolic (8462-4) 62 mm[Hg] 08/08/2024 09:15 AM Heart Rate (8867-4) 75 /min Blood Pressure Systolic (8480-6) 151 mm[Hg] Blood Pressure Diastolic (8462-4) 74 mm[Hg] 08/08/2024 05:00 PM Body Weight (36757-2) 191 [lb_av] Body Mass Index (05713-6) 29.04 kg/m2 08/08/2024 02:20 PM Blood Pressure Systolic (8480-6) 1 20 mm[Hg] Blood Pressure Diastolic (8462-4) 59 mm[Hg] 08/09/2024 07:38 AM Blood Pressure Systolic (8480-6) 1 30 mm[Hg] Blood Pressure Diastolic (8462-4) 75 mm[Hg] 08/09/2024 07:37 AM Heart Rate (8867-4) 58 /min 08/09/2024 05:26 AM Blood Pressure Systolic (8480-6) 1 48 mm[Hg] Blood Pressure Diastolic (8462-4) 88 mm[Hg] 08/08/2024 09:19 PM Blood Pressure Systolic (8480-6) 1 36 mm[Hg] Blood Pressure Diastolic (8462-4) 78 mm[Hg] 08/09/2024 08:05 PM Blood Pressure Systolic (8480-6) 1 42 mm[Hg] Blood Pressure Diastolic (8462-4) 66 mm[Hg] 08/09/2024 04:11 PM Body Weight (58693-9) 193.6 [lb_av ] Body Mass Index (95925-5) 29.43 kg/m2 08/10/2024 10:47 PM Blood Pressure Systolic (8480-6) 1 27 mm[Hg] Blood Pressure Diastolic (8462-4) 54 mm[Hg] 08/10/2024 02:18 PM Blood Pressure Systolic (8480-6) 1 52 mm[Hg] Blood Pressure Diastolic (8462-4) 90 mm[Hg] 08/10/2024 09:12 AM Heart Rate (8867-4) 63 /min 08/10/2024 09:11 AM Blood Pressure Systolic (8480-6) 1 47 mm[Hg] Blood Pressure Diastolic (8462-4) 77 mm[Hg] 08/11/2024 07:03 AM Blood Pressure Systolic (8480-6) 1 32 mm[Hg] Blood Pressure Diastolic (8462-4) 62 mm[Hg] 08/11/2024 07:12 AM Heart Rate (8867-4) 65 /min 08/12/2024 07:44 AM Blood Pressure Systolic (8480-6) 1 62 mm[Hg] Blood Pressure Diastolic (8462-4) 80 mm[Hg] 08/12/2024 12:21 PM Blood Pressure Systolic (8480-6) 1 44 mm[Hg] Blood Pressure Diastolic (8462-4) 70 mm[Hg] 08/12/2024 07:46 AM Heart Rate (8867-4) 80 /min 08/13/2024 07:33 AM Heart Rate (8867-4) 67 /min Blood Pressure Systolic (8480-6) 107 mm[Hg] Blood Pressure Diastolic (8462-4) 62 mm[Hg] 08/13/2024 09:30 AM Body Weight (76951-1) 196 [lb_av] Body Mass Index (52424-7) 29.8 kg/m2 08/13/2024 07:32 AM Heart Rate (8867-4) 67 /min 08/13/2024 09:41 AM Temperature (8310-5) 98.9 [degF] Oxygen Saturation (43651-9) 94 % Respiratory Rate (9279-1) 18 /min Heart Rate (8867-4) 68 /min 08/13/2024 04:56 AM Blood Pressure Systolic (8480-6) 1 58 mm[Hg] Blood Pressure Diastolic (8462-4) 86 mm[Hg] 08/12/2024 06:35 PM Blood Pressure Systolic (8480-6) 1 44 mm[Hg] Blood Pressure Diastolic (8462-4) 76 mm[Hg] 08/14/2024 08:00 AM Heart Rate (8867-4) 60 /min Blood Pressure Systolic (8480-6) 151 mm[Hg] Blood Pressure Diastolic (8462-4) 65 mm[Hg] 08/14/2024 05:05 AM Blood Pressure Systolic (8480-6) 1 49 mm[Hg] Blood Pressure Diastolic (8462-4) 88 mm[Hg] 08/13/2024 06:57 PM Blood Pressure Systolic (8480-6) 1 30 mm[Hg] Blood Pressure Diastolic (8462-4) 70 mm[Hg] 08/15/2024 05:28 PM Blood Pressure Systolic (8480-6) 1 38 mm[Hg] Blood Pressure Diastolic (8462-4) 74 mm[Hg] 08/14/2024 06:34 PM Blood Pressure Systolic (8480-6) 1 60 mm[Hg] Blood Pressure Diastolic (8462-4) 82 mm[Hg] 08/15/2024 04:34 AM Blood Pressure Systolic (8480-6) 1 50 mm[Hg] Blood Pressure Diastolic (8462-4) 80 mm[Hg] 08/15/2024 05:27 PM Heart Rate (8867-4) 63 /min Blood Pressure Systolic (8480-6) 138 mm[Hg] Blood Pressure Diastolic (8462-4) 74 mm[Hg] 08/15/2024 04:27 PM Body Weight (08764-5) 196.4 [lb_av ] Body Mass Index (81317-6) 29.86 kg/m2 08/16/2024 07:04 AM Blood Pressure Systolic (8480-6) 1 29 mm[Hg] Blood Pressure Diastolic (8462-4) 67 mm[Hg] 08/16/2024 01:42 PM Blood Pressure Systolic (8480-6) 1 15 mm[Hg] Blood Pressure Diastolic (8462-4) 63 mm[Hg] 08/15/2024 11:01 PM Blood Pressure Systolic (8480-6) 1 32 mm[Hg] Blood Pressure Diastolic (8462-4) 59 mm[Hg] 08/16/2024 09:38 AM Body Weight (92534-7) 193.2 [lb_av ] Body Mass Index (67281-1) 29.37 kg/m2 08/16/2024 09:46 PM Blood Pressure Systolic (8480-6) 1 32 mm[Hg] Blood Pressure Diastolic (8462-4) 67 mm[Hg] 08/17/2024 08:15 PM Blood Pressure Systolic (8480-6) 1 43 mm[Hg] Blood Pressure Diastolic (8462-4) 66 mm[Hg] 08/17/2024 07:43 AM Heart Rate (8867-4) 54 /min Blood Pressure Systolic (8480-6) 133 mm[Hg] Blood Pressure Diastolic (8462-4) 67 mm[Hg] 08/17/2024 01:28 PM Body Weight (04198-4) 193 [lb_av] Body Mass Index (00629-1) 29.34 kg/m2 08/18/2024 07:20 AM Heart Rate (8867-4) 66 /min 08/18/2024 07:19 AM Blood Pressure Systolic (8480-6) 1 34 mm[Hg] Blood Pressure Diastolic (8462-4) 72 mm[Hg] 08/19/2024 01:37 PM Blood Pressure Systolic (8480-6) 1 34 mm[Hg] Blood Pressure Diastolic (8462-4) 68 mm[Hg] 08/19/2024 07:50 AM Heart Rate (8867-4) 65 /min 08/19/2024 07:49 AM Blood Pressure Systolic (8480-6) 1 66 mm[Hg] Blood Pressure Diastolic (8462-4) 78 mm[Hg] 08/18/2024 06:47 PM Blood Pressure Systolic (8480-6) 1 52 mm[Hg] Blood Pressure Diastolic (8462-4) 76 mm[Hg] 08/20/2024 05:36 PM Blood Pressure Systolic (8480-6) 1 34 mm[Hg] Blood Pressure Diastolic (8462-4) 76 mm[Hg] 08/20/2024 09:41 AM Body Weight (32468-7) 190 [lb_av] Body Mass Index (67257-3) 28.89 kg/m2 08/20/2024 09:37 AM Temperature (8310-5) 97.8 [degF] Oxygen Saturation (39330-7) 94 % Respiratory Rate (9279-1) 17 /min Heart Rate (8867-4) 53 /min Blood Pressure Systolic (8480-6) 105 mm[Hg] Blood Pressure Diastolic (8462-4) 71 mm[Hg] 08/20/2024 05:04 AM Blood Pressure Systolic (8480-6) 1 50 mm[Hg] Blood Pressure Diastolic (8462-4) 80 mm[Hg] 08/19/2024 06:33 PM Blood Pressure Systolic (8480-6) 1 50 mm[Hg] Blood Pressure Diastolic (8462-4) 80 mm[Hg] 08/20/2024 06:52 PM Blood Pressure Systolic (8480-6) 1 28 mm[Hg] Blood Pressure Diastolic (8462-4) 78 mm[Hg] 08/21/2024 09:11 AM Heart Rate (8867-4) 71 /min Blood Pressure Systolic (8480-6) 139 mm[Hg] Blood Pressure Diastolic (8462-4) 70 mm[Hg] 08/21/2024 05:05 AM Blood Pressure Systolic (8480-6) 1 48 mm[Hg] Blood Pressure Diastolic (8462-4) 80 mm[Hg] 08/21/2024 01:15 PM Blood Pressure Systolic (8480-6) 1 27 mm[Hg] Blood Pressure Diastolic (8462-4) 63 mm[Hg] 08/22/2024 09:18 PM Blood Pressure Systolic (8480-6) 1 38 mm[Hg] Blood Pressure Diastolic (8462-4) 83 mm[Hg] 08/22/2024 03:32 PM Blood Pressure Systolic (8480-6) 1 24 mm[Hg] Blood Pressure Diastolic (8462-4) 100 mm[Hg] 08/22/2024 03:31 PM Blood Pressure Systolic (8480-6) 1 24 mm[Hg] Blood Pressure Diastolic (8462-4) 100 mm[Hg] 08/22/2024 08:44 AM Blood Pressure Systolic (8480-6) 1 49 mm[Hg] Blood Pressure Diastolic (8462-4) 74 mm[Hg] 08/22/2024 08:43 AM Heart Rate (8867-4) 78 /min 08/22/2024 08:42 AM Blood Pressure Systolic (8480-6) 1 49 mm[Hg] Blood Pressure Diastolic (8462-4) 74 mm[Hg] 08/22/2024 06:50 AM Heart Rate (8867-4) 156 /min 08/21/2024 08:07 PM Blood Pressure Systolic (8480-6) 1 42 mm[Hg] Blood Pressure Diastolic (8462-4) 78 mm[Hg] 08/23/2024 09:20 PM Blood Pressure Systolic (8480-6) 1 45 mm[Hg] Blood Pressure Diastolic (8462-4) 79 mm[Hg] 08/23/2024 05:33 PM Blood Pressure Systolic (8480-6) 1 34 mm[Hg] Blood Pressure Diastolic (8462-4) 72 mm[Hg] 08/23/2024 08:17 AM Heart Rate (8867-4) 64 /min 08/23/2024 08:16 AM Blood Pressure Systolic (8480-6) 1 15 mm[Hg] Blood Pressure Diastolic (8462-4) 65 mm[Hg] 08/24/2024 08:15 AM Heart Rate (8867-4) 69 /min Blood Pressure Systolic (8480-6) 143 mm[Hg] Blood Pressure Diastolic (8462-4) 86 mm[Hg] 08/24/2024 11:05 PM Blood Pressure Systolic (8480-6) 1 30 mm[Hg] Blood Pressure Diastolic (8462-4) 67 mm[Hg] 08/24/2024 03:58 PM Blood Pressure Systolic (8480-6) 1 13 mm[Hg] Blood Pressure Diastolic (8462-4) 65 mm[Hg] 08/25/2024 10:36 PM Blood Pressure Systolic (8480-6) 1 17 mm[Hg] Blood Pressure Diastolic (8462-4) 72 mm[Hg] 08/25/2024 11:50 AM Blood Pressure Systolic (8480-6) 1 06 mm[Hg] Blood Pressure Diastolic (8462-4) 54 mm[Hg] 08/25/2024 07:41 AM Heart Rate (8867-4) 65 /min 08/25/2024 07:39 AM Blood Pressure Systolic (8480-6) 1 47 mm[Hg] Blood Pressure Diastolic (8462-4) 83 mm[Hg] 08/26/2024 07:16 AM Heart Rate (8867-4) 60 /min 08/26/2024 07:15 AM Blood Pressure Systolic (8480-6) 1 27 mm[Hg] Blood Pressure Diastolic (8462-4) 66 mm[Hg] 08/27/2024 03:45 PM Body Weight (45080-1) 192.8 [lb_av ] Body Mass Index (20733-6) 29.31 kg/m2 08/27/2024 08:35 AM Respiratory Rate (9279-1) 17 /min 08/27/2024 08:34 AM Oxygen Saturation (01292-0) 98 % 08/27/2024 08:31 AM Temperature (8310-5) 98.1 [degF] Heart Rate (8867-4) 54 /min 08/27/2024 07:34 AM Heart Rate (8867-4) 54 /min Blood Pressure Systolic (8480-6) 127 mm[Hg] Blood Pressure Diastolic (8462-4) 52 mm[Hg] 08/27/2024 05:09 AM Blood Pressure Systolic (8480-6) 1 30 mm[Hg] Blood Pressure Diastolic (8462-4) 80 mm[Hg] 08/26/2024 08:22 PM Blood Pressure Systolic (8480-6) 1 04 mm[Hg] Blood Pressure Diastolic (8462-4) 68 mm[Hg] 08/28/2024 05:14 PM Blood Pressure Systolic (8480-6) 1 49 mm[Hg] Blood Pressure Diastolic (8462-4) 79 mm[Hg] 08/28/2024 09:51 AM Heart Rate (8867-4) 83 /min Blood Pressure Systolic (8480-6) 158 mm[Hg] Blood Pressure Diastolic (8462-4) 89 mm[Hg] 08/28/2024 05:25 AM Blood Pressure Systolic (8480-6) 1 50 mm[Hg] Blood Pressure Diastolic (8462-4) 80 mm[Hg] 08/27/2024 09:00 PM Blood Pressure Systolic (8480-6) 1 24 mm[Hg] Blood Pressure Diastolic (8462-4) 77 mm[Hg] 08/29/2024 07:21 AM Heart Rate (8867-4) 66 /min 08/29/2024 05:08 AM Blood Pressure Systolic (8480-6) 1 50 mm[Hg] Blood Pressure Diastolic (8462-4) 80 mm[Hg] 08/29/2024 01:23 PM Blood Pressure Systolic (8480-6) 1 04 mm[Hg] Blood Pressure Diastolic (8462-4) 50 mm[Hg] 08/28/2024 09:31 PM Blood Pressure Systolic (8480-6) 1 39 mm[Hg] Blood Pressure Diastolic (8462-4) 86 mm[Hg] 08/30/2024 01:40 PM Blood Pressure Systolic (8480-6) 1 36 mm[Hg] Blood Pressure Diastolic (8462-4) 60 mm[Hg] 08/30/2024 07:49 AM Heart Rate (8867-4) 53 /min 08/29/2024 09:00 PM Blood Pressure Systolic (8480-6) 1 39 mm[Hg] Blood Pressure Diastolic (8462-4) 74 mm[Hg] 08/30/2024 07:43 AM Blood Pressure Systolic (8480-6) 1 65 mm[Hg] Blood Pressure Diastolic (8462-4) 88 mm[Hg] 08/30/2024 09:07 PM Blood Pressure Systolic (8480-6) 1 24 mm[Hg] Blood Pressure Diastolic (8462-4) 55 mm[Hg] 08/31/2024 04:02 PM Blood Pressure Systolic (8480-6) 1 31 mm[Hg] Blood Pressure Diastolic (8462-4) 74 mm[Hg] 08/31/2024 09:04 PM Blood Pressure Systolic (8480-6) 1 23 mm[Hg] Blood Pressure Diastolic (8462-4) 59 mm[Hg] 08/31/2024 12:44 PM Heart Rate (8867-4) 44 /min Blood Pressure Systolic (8480-6) 104 mm[Hg] Blood Pressure Diastolic (8462-4) 43 mm[Hg] 09/01/2024 03:32 PM Blood Pressure Systolic (8480-6) 1 34 mm[Hg] Blood Pressure Diastolic (8462-4) 71 mm[Hg] 09/01/2024 08:26 AM Heart Rate (8867-4) 89 /min Blood Pressure Systolic (8480-6) 153 mm[Hg] Blood Pressure Diastolic (8462-4) 71 mm[Hg] 09/02/2024 12:37 PM Heart Rate (8867-4) 46 /min Blood Pressure Systolic (8480-6) 134 mm[Hg] Blood Pressure Diastolic (8462-4) 76 mm[Hg] 09/01/2024 09:38 PM Blood Pressure Systolic (8480-6) 1 49 mm[Hg] Blood Pressure Diastolic (8462-4) 62 mm[Hg] 09/03/2024 11:03 AM Blood Pressure Systolic (8480-6) 1 31 mm[Hg] Blood Pressure Diastolic (8462-4) 63 mm[Hg] 09/03/2024 11:05 AM Body Weight (81843-3) 191 [lb_av] Body Mass Index (97041-6) 29.04 kg/m2 09/03/2024 02:37 PM Blood Pressure Systolic (8480-6) 1 19 mm[Hg] Blood Pressure Diastolic (8462-4) 68 mm[Hg] 09/02/2024 09:13 PM Blood Pressure Systolic (8480-6) 1 28 mm[Hg] Blood Pressure Diastolic (8462-4) 71 mm[Hg] 09/03/2024 02:36 PM Temperature (8310-5) 98.3 [degF] Oxygen Saturation (18060-2) 97 % Respiratory Rate (9279-1) 18 /min Heart Rate (8867-4) 71 /min Blood Pressure Systolic (8480-6) 131 mm[Hg] Blood Pressure Diastolic (8462-4) 63 mm[Hg] 09/03/2024 11:04 AM Heart Rate (8867-4) 71 /min 09/04/2024 05:09 PM Blood Pressure Systolic (8480-6) 1 89 mm[Hg] Blood Pressure Diastolic (8462-4) 92 mm[Hg] 09/04/2024 06:38 AM Blood Pressure Systolic (8480-6) 1 89 mm[Hg] Blood Pressure Diastolic (8462-4) 92 mm[Hg] 09/04/2024 06:37 AM Heart Rate (8867-4) 77 /min 09/03/2024 08:45 PM Blood Pressure Systolic (8480-6) 1 68 mm[Hg] Blood Pressure Diastolic (8462-4) 88 mm[Hg] 09/05/2024 09:35 AM Heart Rate (8867-4) 59 /min 09/05/2024 01:10 PM Blood Pressure Systolic (8480-6) 1 35 mm[Hg] Blood Pressure Diastolic (8462-4) 65 mm[Hg] 09/04/2024 11:37 PM Blood Pressure Systolic (8480-6) 1 46 mm[Hg] Blood Pressure Diastolic (8462-4) 88 mm[Hg] 09/05/2024 09:34 AM Blood Pressure Systolic (8480-6) 1 27 mm[Hg] Blood Pressure Diastolic (8462-4) 77 mm[Hg] 09/06/2024 08:35 AM Heart Rate (8867-4) 60 /min 09/06/2024 02:26 PM Body Weight (92368-4) 188.8 [lb_av ] Body Mass Index (67735-5) 28.7 kg/m2 09/06/2024 05:25 AM Blood Pressure Systolic (8480-6) 1 40 mm[Hg] Blood Pressure Diastolic (8462-4) 78 mm[Hg] 09/05/2024 11:31 PM Blood Pressure Systolic (8480-6) 1 50 mm[Hg] Blood Pressure Diastolic (8462-4) 78 mm[Hg] 09/07/2024 08:35 AM Heart Rate (8867-4) 70 /min 09/07/2024 05:18 AM Blood Pressure Systolic (8480-6) 1 42 mm[Hg] Blood Pressure Diastolic (8462-4) 69 mm[Hg] 09/06/2024 09:09 PM Blood Pressure Systolic (8480-6) 1 30 mm[Hg] Blood Pressure Diastolic (8462-4) 71 mm[Hg] 09/07/2024 11:12 PM Blood Pressure Systolic (8480-6) 1 57 mm[Hg] Blood Pressure Diastolic (8462-4) 70 mm[Hg] 09/08/2024 05:55 AM Blood Pressure Systolic (8480-6) 1 41 mm[Hg] Blood Pressure Diastolic (8462-4) 75 mm[Hg] 09/08/2024 09:13 PM Blood Pressure Systolic (8480-6) 1 53 mm[Hg] Blood Pressure Diastolic (8462-4) 72 mm[Hg] 09/08/2024 07:28 AM Heart Rate (8867-4) 62 /min 09/09/2024 05:00 AM Blood Pressure Systolic (8480-6) 1 15 mm[Hg] Blood Pressure Diastolic (8462-4) 31 mm[Hg] 09/09/2024 07:19 AM Heart Rate (8867-4) 60 /min 09/10/2024 05:08 AM Blood Pressure Systolic (8480-6) 1 48 mm[Hg] Blood Pressure Diastolic (8462-4) 72 mm[Hg] 09/10/2024 05:16 PM Temperature (8310-5) 98.7 [degF] Oxygen Saturation (69609-8) 92 % Respiratory Rate (9279-1) 18 /min Heart Rate (8867-4) 44 /min Blood Pressure Systolic (8480-6) 117 mm[Hg] Blood Pressure Diastolic (8462-4) 59 mm[Hg] Body Weight (99155-2) 188.4 [lb_av] Body Mass Index (66551-1) 28.64 kg/m2 09/09/2024 06:54 PM Blood Pressure Systolic (8480-6) 1 58 mm[Hg] Blood Pressure Diastolic (8462-4) 72 mm[Hg] 09/11/2024 08:04 AM Heart Rate (8867-4) 52 /min 09/11/2024 05:04 AM Blood Pressure Systolic (8480-6) 1 52 mm[Hg] Blood Pressure Diastolic (8462-4) 78 mm[Hg] 09/10/2024 06:41 PM Blood Pressure Systolic (8480-6) 1 37 mm[Hg] Blood Pressure Diastolic (8462-4) 67 mm[Hg] 09/12/2024 03:44 PM Blood Pressure Systolic (8480-6) 1 34 mm[Hg] Blood Pressure Diastolic (8462-4) 62 mm[Hg] 09/12/2024 07:04 AM Heart Rate (8867-4) 58 /min 09/12/2024 05:24 AM Blood Pressure Systolic (8480-6) 1 68 mm[Hg] Blood Pressure Diastolic (8462-4) 80 mm[Hg] 09/11/2024 06:49 PM Blood Pressure Systolic (8480-6) 1 50 mm[Hg] Blood Pressure Diastolic (8462-4) 80 mm[Hg] 09/13/2024 08:58 AM Heart Rate (8867-4) 46 /min 09/13/2024 05:17 AM Blood Pressure Systolic (8480-6) 1 16 mm[Hg] Blood Pressure Diastolic (8462-4) 72 mm[Hg] 09/12/2024 09:00 PM Blood Pressure Systolic (8480-6) 1 20 mm[Hg] Blood Pressure Diastolic (8462-4) 77 mm[Hg] 09/14/2024 05:04 AM Blood Pressure Systolic (8480-6) 1 22 mm[Hg] Blood Pressure Diastolic (8462-4) 57 mm[Hg] 09/13/2024 09:00 PM Blood Pressure Systolic (8480-6) 1 21 mm[Hg] Blood Pressure Diastolic (8462-4) 56 mm[Hg] 09/13/2024 06:20 PM Blood Pressure Systolic (8480-6) 1 21 mm[Hg] Blood Pressure Diastolic (8462-4) 64 mm[Hg] 09/14/2024 04:58 PM Blood Pressure Systolic (8480-6) 1 37 mm[Hg] Blood Pressure Diastolic (8462-4) 76 mm[Hg] 09/14/2024 09:38 AM Heart Rate (8867-4) 59 /min 09/14/2024 07:00 AM Heart Rate (8867-4) 59 /min 09/15/2024 07:06 AM Heart Rate (8867-4) 62 /min 09/14/2024 11:23 PM Blood Pressure Systolic (8480-6) 1 04 mm[Hg] Blood Pressure Diastolic (8462-4) 46 mm[Hg] 09/15/2024 06:43 AM Blood Pressure Systolic (8480-6) 1 29 mm[Hg] Blood Pressure Diastolic (8462-4) 59 mm[Hg] 09/16/2024 06:32 PM Blood Pressure Systolic (8480-6) 1 44 mm[Hg] Blood Pressure Diastolic (8462-4) 80 mm[Hg] 09/16/2024 07:10 AM Heart Rate (8867-4) 68 /min 09/16/2024 07:09 AM Blood Pressure Systolic (8480-6) 1 43 mm[Hg] Blood Pressure Diastolic (8462-4) 77 mm[Hg] 09/17/2024 06:41 PM Blood Pressure Systolic (8480-6) 1 74 mm[Hg] Blood Pressure Diastolic (8462-4) 88 mm[Hg] 09/17/2024 02:57 PM Blood Pressure Systolic (8480-6) 1 15 mm[Hg] Blood Pressure Diastolic (8462-4) 66 mm[Hg] 09/17/2024 11:14 AM Body Weight (72170-0) 188 [lb_av] Body Mass Index (58557-2) 28.58 kg/m2 09/17/2024 08:52 AM Temperature (8310-5) 97 [degF] Oxygen Saturation (93983-7) 90 % Respiratory Rate (9279-1) 18 /min Heart Rate (8867-4) 88 /min Blood Pressure Systolic (8480-6) 132 mm[Hg] Blood Pressure Diastolic (8462-4) 64 mm[Hg] 09/17/2024 08:51 AM Heart Rate (8867-4) 88 /min 09/17/2024 05:00 AM Blood Pressure Systolic (8480-6) 1 44 mm[Hg] Blood Pressure Diastolic (8462-4) 80 mm[Hg] 09/18/2024 07:38 PM Blood Pressure Systolic (8480-6) 1 38 mm[Hg] Blood Pressure Diastolic (8462-4) 76 mm[Hg] 09/18/2024 05:32 PM Blood Pressure Systolic (8480-6) 1 36 mm[Hg] Blood Pressure Diastolic (8462-4) 74 mm[Hg] 09/18/2024 08:29 AM Heart Rate (8867-4) 52 /min 09/18/2024 08:27 AM Blood Pressure Systolic (8480-6) 1 15 mm[Hg] Blood Pressure Diastolic (8462-4) 58 mm[Hg] 09/19/2024 02:23 PM Blood Pressure Systolic (8480-6) 1 21 mm[Hg] Blood Pressure Diastolic (8462-4) 69 mm[Hg] 09/19/2024 08:26 AM Heart Rate (8867-4) 86 /min 09/19/2024 08:25 AM Blood Pressure Systolic (8480-6) 1 32 mm[Hg] Blood Pressure Diastolic (8462-4) 71 mm[Hg] 09/19/2024 10:04 PM Blood Pressure Systolic (8480-6) 1 27 mm[Hg] Blood Pressure Diastolic (8462-4) 83 mm[Hg] 09/20/2024 02:39 PM Blood Pressure Systolic (8480-6) 9 8 mm[Hg] Blood Pressure Diastolic (8462-4) 55 mm[Hg] 09/20/2024 07:18 AM Heart Rate (8867-4) 68 /min Blood Pressure Systolic (8480-6) 142 mm[Hg] Blood Pressure Diastolic (8462-4) 67 mm[Hg] 09/21/2024 02:29 PM Blood Pressure Systolic (8480-6) 1 44 mm[Hg] Blood Pressure Diastolic (8462-4) 90 mm[Hg] 09/21/2024 06:21 AM Heart Rate (8867-4) 62 /min 09/21/2024 06:20 AM Blood Pressure Systolic (8480-6) 1 11 mm[Hg] Blood Pressure Diastolic (8462-4) 51 mm[Hg] 09/20/2024 10:59 PM Blood Pressure Systolic (8480-6) 1 24 mm[Hg] Blood Pressure Diastolic (8462-4) 64 mm[Hg] 09/22/2024 05:38 AM Blood Pressure Systolic (8480-6) 1 44 mm[Hg] Blood Pressure Diastolic (8462-4) 75 mm[Hg] 09/21/2024 09:11 PM Blood Pressure Systolic (8480-6) 1 31 mm[Hg] Blood Pressure Diastolic (8462-4) 78 mm[Hg] 09/22/2024 07:28 AM Heart Rate (8867-4) 66 /min 09/23/2024 07:09 AM Heart Rate (8867-4) 70 /min 09/23/2024 07:07 AM Blood Pressure Systolic (8480-6) 1 39 mm[Hg] Blood Pressure Diastolic (8462-4) 74 mm[Hg] 09/24/2024 01:59 PM Blood Pressure Systolic (8480-6) 1 34 mm[Hg] Blood Pressure Diastolic (8462-4) 80 mm[Hg] 09/24/2024 09:54 AM Body Weight (78102-5) 185.6 [lb_av ] Body Mass Index (14984-7) 28.22 kg/m2 09/24/2024 09:53 AM Temperature (8310-5) 98.9 [degF] Oxygen Saturation (83452-3) 94 % Respiratory Rate (9279-1) 16 /min Heart Rate (8867-4) 76 /min Blood Pressure Systolic (8480-6) 165 mm[Hg] Blood Pressure Diastolic (8462-4) 99 mm[Hg] 09/24/2024 08:03 AM Heart Rate (8867-4) 76 /min 09/24/2024 08:02 AM Blood Pressure Systolic (8480-6) 1 65 mm[Hg] Blood Pressure Diastolic (8462-4) 99 mm[Hg] 09/23/2024 09:13 PM Blood Pressure Systolic (8480-6) 1 42 mm[Hg] Blood Pressure Diastolic (8462-4) 76 mm[Hg] 09/25/2024 07:20 AM Blood Pressure Systolic (8480-6) 1 09 mm[Hg] Blood Pressure Diastolic (8462-4) 57 mm[Hg] 09/25/2024 07:18 AM Heart Rate (8867-4) 57 /min 09/24/2024 10:21 PM Blood Pressure Systolic (8480-6) 1 42 mm[Hg] Blood Pressure Diastolic (8462-4) 86 mm[Hg] 09/26/2024 09:32 AM Heart Rate (8867-4) 86 /min Blood Pressure Systolic (8480-6) 154 mm[Hg] Blood Pressure Diastolic (8462-4) 85 mm[Hg] 09/25/2024 06:27 PM Blood Pressure Systolic (8480-6) 1 50 mm[Hg] Blood Pressure Diastolic (8462-4) 70 mm[Hg] 09/25/2024 05:23 PM Blood Pressure Systolic (8480-6) 1 12 mm[Hg] Blood Pressure Diastolic (8462-4) 57 mm[Hg] 09/26/2024 09:04 PM Blood Pressure Systolic (8480-6) 1 60 mm[Hg] Blood Pressure Diastolic (8462-4) 76 mm[Hg] 09/26/2024 05:10 PM Blood Pressure Systolic (8480-6) 1 15 mm[Hg] Blood Pressure Diastolic (8462-4) 58 mm[Hg] 09/27/2024 05:14 PM Blood Pressure Systolic (8480-6) 1 07 mm[Hg] Blood Pressure Diastolic (8462-4) 68 mm[Hg] 09/27/2024 12:44 PM Heart Rate (8867-4) 60 /min 09/27/2024 05:54 AM Blood Pressure Systolic (8480-6) 1 22 mm[Hg] Blood Pressure Diastolic (8462-4) 66 mm[Hg] 09/28/2024 08:12 AM Heart Rate (8867-4) 67 /min 09/28/2024 04:30 AM Blood Pressure Systolic (8480-6) 1 56 mm[Hg] Blood Pressure Diastolic (8462-4) 66 mm[Hg] 09/27/2024 10:19 PM Blood Pressure Systolic (8480-6) 1 19 mm[Hg] Blood Pressure Diastolic (8462-4) 59 mm[Hg] 09/28/2024 09:36 PM Blood Pressure Systolic (8480-6) 1 15 mm[Hg] Blood Pressure Diastolic (8462-4) 60 mm[Hg] 09/28/2024 02:40 PM Blood Pressure Systolic (8480-6) 1 31 mm[Hg] Blood Pressure Diastolic (8462-4) 64 mm[Hg] 09/29/2024 04:48 AM Blood Pressure Systolic (8480-6) 9 7 mm[Hg] Blood Pressure Diastolic (8462-4) 51 mm[Hg] 09/30/2024 01:08 PM Blood Pressure Systolic (8480-6) 1 55 mm[Hg] Blood Pressure Diastolic (8462-4) 70 mm[Hg] 09/29/2024 11:08 PM Blood Pressure Systolic (8480-6) 1 40 mm[Hg] Blood Pressure Diastolic (8462-4) 72 mm[Hg] 09/30/2024 06:45 PM Blood Pressure Systolic (8480-6) 1 43 mm[Hg] Blood Pressure Diastolic (8462-4) 64 mm[Hg] 10/01/2024 06:38 PM Blood Pressure Systolic (8480-6) 1 28 mm[Hg] Blood Pressure Diastolic (8462-4) 68 mm[Hg] 10/01/2024 03:56 PM Blood Pressure Systolic (8480-6) 1 37 mm[Hg] Blood Pressure Diastolic (8462-4) 74 mm[Hg] 10/01/2024 09:03 AM Body Weight (42039-0) 187.2 [lb_av ] Body Mass Index (91666-0) 28.46 kg/m2 10/01/2024 08:24 AM Temperature (8310-5) 97.2 [degF] Oxygen Saturation (67862-1) 95 % Respiratory Rate (9279-1) 16 /min Heart Rate (8867-4) 85 /min Blood Pressure Systolic (8480-6) 157 mm[Hg] Blood Pressure Diastolic (8462-4) 74 mm[Hg] 10/01/2024 06:57 AM Heart Rate (8867-4) 85 /min 10/01/2024 06:56 AM Blood Pressure Systolic (8480-6) 1 57 mm[Hg] Blood Pressure Diastolic (8462-4) 74 mm[Hg] 10/02/2024 07:55 AM Heart Rate (8867-4) 79 /min 10/02/2024 07:54 AM Blood Pressure Systolic (8480-6) 1 37 mm[Hg] Blood Pressure Diastolic (8462-4) 74 mm[Hg] 10/02/2024 09:04 PM Blood Pressure Systolic (8480-6) 1 20 mm[Hg] Blood Pressure Diastolic (8462-4) 78 mm[Hg] 10/02/2024 05:30 PM Blood Pressure Systolic (8480-6) 1 40 mm[Hg] Blood Pressure Diastolic (8462-4) 89 mm[Hg] 10/03/2024 09:23 PM Blood Pressure Systolic (8480-6) 1 21 mm[Hg] Blood Pressure Diastolic (8462-4) 62 mm[Hg] 10/03/2024 03:45 PM Blood Pressure Systolic (8480-6) 1 42 mm[Hg] Blood Pressure Diastolic (8462-4) 86 mm[Hg] 10/03/2024 08:06 AM Heart Rate (8867-4) 71 /min Blood Pressure Systolic (8480-6) 132 mm[Hg] Blood Pressure Diastolic (8462-4) 82 mm[Hg] 10/04/2024 01:42 PM Blood Pressure Systolic (8480-6) 1 40 mm[Hg] Blood Pressure Diastolic (8462-4) 81 mm[Hg] 10/04/2024 10:50 AM Body Weight (28524-1) 187.2 [lb_av ] Body Mass Index (08784-8) 28.46 kg/m2 10/04/2024 05:04 AM Heart Rate (8867-4) 81 /min Blood Pressure Systolic (8480-6) 146 mm[Hg] Blood Pressure Diastolic (8462-4) 78 mm[Hg] 10/04/2024 05:03 AM Heart Rate (8867-4) 81 /min 10/05/2024 08:02 AM Heart Rate (8867-4) 52 /min 10/05/2024 05:18 AM Blood Pressure Systolic (8480-6) 1 15 mm[Hg] Blood Pressure Diastolic (8462-4) 75 mm[Hg] 10/04/2024 09:19 PM Blood Pressure Systolic (8480-6) 1 18 mm[Hg] Blood Pressure Diastolic (8462-4) 56 mm[Hg] 10/06/2024 05:01 AM Blood Pressure Systolic (8480-6) 1 62 mm[Hg] Blood Pressure Diastolic (8462-4) 82 mm[Hg] 10/05/2024 09:01 PM Blood Pressure Systolic (8480-6) 1 43 mm[Hg] Blood Pressure Diastolic (8462-4) 86 mm[Hg] 10/05/2024 01:56 PM Blood Pressure Systolic (8480-6) 1 12 mm[Hg] Blood Pressure Diastolic (8462-4) 60 mm[Hg] 10/06/2024 06:56 AM Heart Rate (8867-4) 60 /min 10/07/2024 07:50 AM Blood Pressure Systolic (8480-6) 1 37 mm[Hg] Blood Pressure Diastolic (8462-4) 62 mm[Hg] 10/07/2024 07:49 AM Heart Rate (8867-4) 67 /min 10/08/2024 01:23 PM Body Weight (12123-1) 187 [lb_av] Body Mass Index (31196-8) 28.43 kg/m2 10/08/2024 11:29 AM Temperature (8310-5) 98.5 [degF] Oxygen Saturation (72979-0) 96 % Respiratory Rate (9279-1) 16 /min Heart Rate (8867-4) 67 /min Blood Pressure Systolic (8480-6) 147 mm[Hg] Blood Pressure Diastolic (8462-4) 71 mm[Hg] 10/08/2024 11:28 AM Heart Rate (8867-4) 67 /min 10/08/2024 05:28 AM Blood Pressure Systolic (8480-6) 1 40 mm[Hg] Blood Pressure Diastolic (8462-4) 80 mm[Hg] 10/07/2024 06:38 PM Blood Pressure Systolic (8480-6) 1 20 mm[Hg] Blood Pressure Diastolic (8462-4) 80 mm[Hg] 10/09/2024 08:56 AM Heart Rate (8867-4) 64 /min 10/09/2024 05:09 AM Blood Pressure Systolic (8480-6) 1 18 mm[Hg] Blood Pressure Diastolic (8462-4) 70 mm[Hg] 10/08/2024 06:37 PM Blood Pressure Systolic (8480-6) 1 42 mm[Hg] Blood Pressure Diastolic (8462-4) 76 mm[Hg] 10/10/2024 01:21 PM Blood Pressure Systolic (8480-6) 1 34 mm[Hg] Blood Pressure Diastolic (8462-4) 74 mm[Hg] 10/10/2024 09:12 AM Heart Rate (8867-4) 77 /min 10/10/2024 05:12 AM Blood Pressure Systolic (8480-6) 1 56 mm[Hg] Blood Pressure Diastolic (8462-4) 88 mm[Hg] 10/09/2024 06:43 PM Blood Pressure Systolic (8480-6) 1 50 mm[Hg] Blood Pressure Diastolic (8462-4) 88 mm[Hg] 10/09/2024 05:22 PM Blood Pressure Systolic (8480-6) 1 43 mm[Hg] Blood Pressure Diastolic (8462-4) 77 mm[Hg] 10/11/2024 05:10 AM Blood Pressure Systolic (8480-6) 1 21 mm[Hg] Blood Pressure Diastolic (8462-4) 71 mm[Hg] 10/10/2024 09:20 PM Blood Pressure Systolic (8480-6) 1 36 mm[Hg] Blood Pressure Diastolic (8462-4) 67 mm[Hg] 10/11/2024 09:14 PM Blood Pressure Systolic (8480-6) 1 13 mm[Hg] Blood Pressure Diastolic (8462-4) 52 mm[Hg] 10/11/2024 02:46 PM Blood Pressure Systolic (8480-6) 1 34 mm[Hg] Blood Pressure Diastolic (8462-4) 78 mm[Hg] 10/11/2024 11:06 AM Heart Rate (8867-4) 78 /min 10/12/2024 07:46 AM Heart Rate (8867-4) 53 /min 10/12/2024 07:44 AM Heart Rate (8867-4) 53 /min 10/12/2024 05:23 AM Blood Pressure Systolic (8480-6) 1 15 mm[Hg] Blood Pressure Diastolic (8462-4) 56 mm[Hg] 10/13/2024 05:02 AM Blood Pressure Systolic (8480-6) 1 33 mm[Hg] Blood Pressure Diastolic (8462-4) 67 mm[Hg] 10/13/2024 05:01 AM Blood Pressure Systolic (8480-6) 1 33 mm[Hg] Blood Pressure Diastolic (8462-4) 67 mm[Hg] 10/12/2024 09:12 PM Blood Pressure Systolic (8480-6) 1 26 mm[Hg] Blood Pressure Diastolic (8462-4) 68 mm[Hg] 10/12/2024 01:50 PM Blood Pressure Systolic (8480-6) 1 05 mm[Hg] Blood Pressure Diastolic (8462-4) 50 mm[Hg] 10/13/2024 09:20 PM Blood Pressure Systolic (8480-6) 1 40 mm[Hg] Blood Pressure Diastolic (8462-4) 82 mm[Hg] 10/13/2024 07:11 AM Heart Rate (8867-4) 62 /min 10/13/2024 07:09 AM Heart Rate (8867-4) 62 /min 10/14/2024 07:15 AM Blood Pressure Systolic (8480-6) 1 62 mm[Hg] Blood Pressure Diastolic (8462-4) 88 mm[Hg] 10/14/2024 06:38 PM Blood Pressure Systolic (8480-6) 1 56 mm[Hg] Blood Pressure Diastolic (8462-4) 82 mm[Hg] 10/15/2024 08:19 AM Temperature (8310-5) 97.2 [degF] Respiratory Rate (9279-1) 17 /min Blood Pressure Systolic (8480-6) 142 mm[Hg] Blood Pressure Diastolic (8462-4) 81 mm[Hg] 10/15/2024 08:17 AM Heart Rate (8867-4) 63 /min 10/15/2024 07:33 AM Body Weight (17924-7) 188.2 [lb_av ] Body Mass Index (43586-0) 28.61 kg/m2 10/15/2024 05:16 AM Blood Pressure Systolic (8480-6) 1 42 mm[Hg] Blood Pressure Diastolic (8462-4) 84 mm[Hg] 10/15/2024 06:32 PM Blood Pressure Systolic (8480-6) 1 62 mm[Hg] Blood Pressure Diastolic (8462-4) 88 mm[Hg] 10/16/2024 07:05 AM Heart Rate (8867-4) 79 /min 10/16/2024 05:02 AM Blood Pressure Systolic (8480-6) 1 46 mm[Hg] Blood Pressure Diastolic (8462-4) 86 mm[Hg] 10/16/2024 02:12 PM Blood Pressure Systolic (8480-6) 1 10 mm[Hg] Blood Pressure Diastolic (8462-4) 56 mm[Hg] 10/16/2024 10:38 PM Blood Pressure Systolic (8480-6) 1 40 mm[Hg] Blood Pressure Diastolic (8462-4) 78 mm[Hg] 10/17/2024 08:44 AM Blood Pressure Systolic (8480-6) 1 31 mm[Hg] Blood Pressure Diastolic (8462-4) 73 mm[Hg] 10/17/2024 10:38 PM Blood Pressure Systolic (8480-6) 1 30 mm[Hg] Blood Pressure Diastolic (8462-4) 75 mm[Hg] 10/18/2024 07:10 AM Heart Rate (8867-4) 52 /min 10/18/2024 05:29 AM Blood Pressure Systolic (8480-6) 1 29 mm[Hg] Blood Pressure Diastolic (8462-4) 57 mm[Hg] 10/18/2024 02:25 PM Blood Pressure Systolic (8480-6) 1 38 mm[Hg] Blood Pressure Diastolic (8462-4) 60 mm[Hg] 10/19/2024 12:49 AM Blood Pressure Systolic (8480-6) 1 13 mm[Hg] Blood Pressure Diastolic (8462-4) 52 mm[Hg] 10/19/2024 05:36 AM Blood Pressure Systolic (8480-6) 1 09 mm[Hg] Blood Pressure Diastolic (8462-4) 41 mm[Hg] 10/19/2024 02:27 PM Blood Pressure Systolic (8480-6) 1 10 mm[Hg] Blood Pressure Diastolic (8462-4) 62 mm[Hg] 10/19/2024 09:57 PM Blood Pressure Systolic (8480-6) 1 49 mm[Hg] Blood Pressure Diastolic (8462-4) 96 mm[Hg] 10/20/2024 08:54 AM Heart Rate (8867-4) 71 /min 10/20/2024 05:00 AM Blood Pressure Systolic (8480-6) 1 39 mm[Hg] Blood Pressure Diastolic (8462-4) 83 mm[Hg] 10/20/2024 02:51 PM Blood Pressure Systolic (8480-6) 1 12 mm[Hg] Blood Pressure Diastolic (8462-4) 58 mm[Hg] 10/20/2024 09:19 PM Blood Pressure Systolic (8480-6) 1 18 mm[Hg] Blood Pressure Diastolic (8462-4) 64 mm[Hg] 10/21/2024 07:15 AM Heart Rate (8867-4) 69 /min 10/21/2024 07:14 AM Blood Pressure Systolic (8480-6) 1 42 mm[Hg] Blood Pressure Diastolic (8462-4) 76 mm[Hg] 10/21/2024 02:23 PM Blood Pressure Systolic (8480-6) 1 40 mm[Hg] Blood Pressure Diastolic (8462-4) 77 mm[Hg] 10/22/2024 07:24 AM Heart Rate (8867-4) 74 /min 10/22/2024 07:23 AM Heart Rate (8867-4) 74 /min 10/22/2024 05:28 AM Blood Pressure Systolic (8480-6) 1 44 mm[Hg] Blood Pressure Diastolic (8462-4) 70 mm[Hg] 10/21/2024 09:06 PM Blood Pressure Systolic (8480-6) 1 36 mm[Hg] Blood Pressure Diastolic (8462-4) 72 mm[Hg] 10/22/2024 01:51 PM Blood Pressure Systolic (8480-6) 1 43 mm[Hg] Blood Pressure Diastolic (8462-4) 84 mm[Hg] 10/22/2024 11:23 AM Body Weight (98451-2) 189 [lb_av] Body Mass Index (54398-2) 28.73 kg/m2 10/22/2024 10:42 AM Temperature (8310-5) 98.4 [degF] Oxygen Saturation (70305-5) 94 % Respiratory Rate (9279-1) 20 /min Heart Rate (8867-4) 74 /min Blood Pressure Systolic (8480-6) 130 mm[Hg] Blood Pressure Diastolic (8462-4) 77 mm[Hg] 10/23/2024 06:31 AM Heart Rate (8867-4) 62 /min 10/22/2024 06:26 PM Blood Pressure Systolic (8480-6) 1 62 mm[Hg] Blood Pressure Diastolic (8462-4) 84 mm[Hg] 10/23/2024 01:12 PM Blood Pressure Systolic (8480-6) 1 23 mm[Hg] Blood Pressure Diastolic (8462-4) 60 mm[Hg] 10/23/2024 06:41 PM Blood Pressure Systolic (8480-6) 1 35 mm[Hg] Blood Pressure Diastolic (8462-4) 88 mm[Hg] 10/24/2024 08:31 AM Heart Rate (8867-4) 78 /min 10/24/2024 05:26 AM Blood Pressure Systolic (8480-6) 1 21 mm[Hg] Blood Pressure Diastolic (8462-4) 78 mm[Hg] 10/24/2024 11:11 PM Blood Pressure Systolic (8480-6) 1 39 mm[Hg] Blood Pressure Diastolic (8462-4) 85 mm[Hg] 10/25/2024 07:19 AM Heart Rate (8867-4) 65 /min 10/25/2024 05:26 AM Blood Pressure Systolic (8480-6) 1 24 mm[Hg] Blood Pressure Diastolic (8462-4) 59 mm[Hg] 10/25/2024 01:37 PM Blood Pressure Systolic (8480-6) 1 20 mm[Hg] Blood Pressure Diastolic (8462-4) 62 mm[Hg] 10/25/2024 09:39 PM Blood Pressure Systolic (8480-6) 1 43 mm[Hg] Blood Pressure Diastolic (8462-4) 76 mm[Hg] 10/26/2024 08:33 AM Heart Rate (8867-4) 67 /min 10/26/2024 05:31 AM Blood Pressure Systolic (8480-6) 1 06 mm[Hg] Blood Pressure Diastolic (8462-4) 72 mm[Hg] 10/26/2024 01:55 PM Blood Pressure Systolic (8480-6) 1 19 mm[Hg] Blood Pressure Diastolic (8462-4) 49 mm[Hg] 10/26/2024 10:16 PM Blood Pressure Systolic (8480-6) 1 43 mm[Hg] Blood Pressure Diastolic (8462-4) 75 mm[Hg] 10/27/2024 06:56 AM Heart Rate (8867-4) 60 /min 10/27/2024 05:32 AM Blood Pressure Systolic (8480-6) 1 05 mm[Hg] Blood Pressure Diastolic (8462-4) 73 mm[Hg] 10/27/2024 01:36 PM Blood Pressure Systolic (8480-6) 1 40 mm[Hg] Blood Pressure Diastolic (8462-4) 73 mm[Hg] 10/27/2024 06:34 PM Blood Pressure Systolic (8480-6) 1 32 mm[Hg] Blood Pressure Diastolic (8462-4) 67 mm[Hg] 10/28/2024 06:49 AM Heart Rate (8867-4) 72 /min Blood Pressure Systolic (8480-6) 132 mm[Hg] Blood Pressure Diastolic (8462-4) 74 mm[Hg] 10/28/2024 01:14 PM Temperature (8310-5) 97.8 [degF] Oxygen Saturation (95248-1) 92 % Respiratory Rate (9279-1) 19 /min Heart Rate (8867-4) 42 /min Blood Pressure Systolic (8480-6) 101 mm[Hg] Blood Pressure Diastolic (8462-4) 50 mm[Hg] 10/28/2024 06:54 PM Blood Pressure Systolic (8480-6) 1 32 mm[Hg] Blood Pressure Diastolic (8462-4) 63 mm[Hg] 10/29/2024 05:24 AM Blood Pressure Systolic (8480-6) 1 38 mm[Hg] Blood Pressure Diastolic (8462-4) 54 mm[Hg] 10/29/2024 12:44 PM Body Weight (25355-4) 188 [lb_av] Body Mass Index (58240-2) 28.58 kg/m2 10/29/2024 11:00 AM Temperature (8310-5) 98 [degF] Oxygen Saturation (14138-8) 96 % Respiratory Rate (9279-1) 17 /min Blood Pressure Systolic (8480-6) 136 mm[Hg] Blood Pressure Diastolic (8462-4) 78 mm[Hg] 10/29/2024 10:59 AM Heart Rate (8867-4) 66 /min 10/29/2024 06:40 PM Blood Pressure Systolic (8480-6) 1 21 mm[Hg] Blood Pressure Diastolic (8462-4) 71 mm[Hg] 10/30/2024 09:14 AM Heart Rate (8867-4) 62 /min 10/30/2024 09:12 AM Blood Pressure Systolic (8480-6) 1 60 mm[Hg] Blood Pressure Diastolic (8462-4) 70 mm[Hg] 10/30/2024 05:01 AM Blood Pressure Systolic (8480-6) 1 38 mm[Hg] Blood Pressure Diastolic (8462-4) 86 mm[Hg] 10/31/2024 12:13 AM Blood Pressure Systolic (8480-6) 1 42 mm[Hg] Blood Pressure Diastolic (8462-4) 72 mm[Hg] 10/31/2024 09:11 AM Blood Pressure Systolic (8480-6) 1 49 mm[Hg] Blood Pressure Diastolic (8462-4) 80 mm[Hg] 10/31/2024 10:44 PM Blood Pressure Systolic (8480-6) 1 39 mm[Hg] Blood Pressure Diastolic (8462-4) 83 mm[Hg] 11/01/2024 07:56 AM Heart Rate (8867-4) 70 /min 11/01/2024 07:55 AM Heart Rate (8867-4) 70 /min 11/01/2024 07:52 AM Blood Pressure Systolic (8480-6) 1 30 mm[Hg] Blood Pressure Diastolic (8462-4) 71 mm[Hg] 11/01/2024 05:25 AM Blood Pressure Systolic (8480-6) 1 43 mm[Hg] Blood Pressure Diastolic (8462-4) 75 mm[Hg] 11/01/2024 01:40 PM Blood Pressure Systolic (8480-6) 1 21 mm[Hg] Blood Pressure Diastolic (8462-4) 70 mm[Hg] 11/01/2024 07:17 PM Blood Pressure Systolic (8480-6) 1 35 mm[Hg] Blood Pressure Diastolic (8462-4) 68 mm[Hg] 11/02/2024 04:58 AM Blood Pressure Systolic (8480-6) 1 33 mm[Hg] Blood Pressure Diastolic (8462-4) 71 mm[Hg] 11/02/2024 04:02 PM Blood Pressure Systolic (8480-6) 1 31 mm[Hg] Blood Pressure Diastolic (8462-4) 80 mm[Hg] 11/02/2024 09:21 AM Heart Rate (8867-4) 68 /min Blood Pressure Systolic (8480-6) 127 mm[Hg] Blood Pressure Diastolic (8462-4) 74 mm[Hg] 11/02/2024 07:30 PM Blood Pressure Systolic (8480-6) 1 08 mm[Hg] Blood Pressure Diastolic (8462-4) 50 mm[Hg] 11/03/2024 07:27 AM Heart Rate (8867-4) 70 /min Blood Pressure Systolic (8480-6) 137 mm[Hg] Blood Pressure Diastolic (8462-4) 62 mm[Hg] 11/03/2024 05:36 AM Blood Pressure Systolic (8480-6) 1 33 mm[Hg] Blood Pressure Diastolic (8462-4) 70 mm[Hg] 11/03/2024 08:16 PM Blood Pressure Systolic (8480-6) 1 20 mm[Hg] Blood Pressure Diastolic (8462-4) 69 mm[Hg] 11/04/2024 07:26 AM Heart Rate (8867-4) 57 /min 11/04/2024 07:24 AM Blood Pressure Systolic (8480-6) 1 47 mm[Hg] Blood Pressure Diastolic (8462-4) 67 mm[Hg] 11/04/2024 05:17 PM Body Weight (00330-3) 187.8 [lb_av ] Body Mass Index (19651-9) 28.55 kg/m2 11/04/2024 11:47 AM Blood Pressure Systolic (8480-6) 1 41 mm[Hg] Blood Pressure Diastolic (8462-4) 76 mm[Hg] 11/04/2024 06:00 PM Blood Pressure Systolic (8480-6) 1 50 mm[Hg] Blood Pressure Diastolic (8462-4) 80 mm[Hg] 11/05/2024 05:04 AM Blood Pressure Systolic (8480-6) 1 28 mm[Hg] Blood Pressure Diastolic (8462-4) 69 mm[Hg] 11/05/2024 07:11 AM Blood Pressure Systolic (8480-6) 1 36 mm[Hg] Blood Pressure Diastolic (8462-4) 73 mm[Hg] 11/05/2024 12:52 PM Temperature (8310-5) 98 [degF] Oxygen Saturation (69276-3) 93 % Respiratory Rate (9279-1) 16 /min Heart Rate (8867-4) 59 /min Blood Pressure Systolic (8480-6) 136 mm[Hg] Blood Pressure Diastolic (8462-4) 73 mm[Hg] 11/05/2024 06:55 PM Blood Pressure Systolic (8480-6) 1 23 mm[Hg] Blood Pressure Diastolic (8462-4) 67 mm[Hg] 11/06/2024 05:09 AM Blood Pressure Systolic (8480-6) 1 55 mm[Hg] Blood Pressure Diastolic (8462-4) 88 mm[Hg] 11/06/2024 10:25 AM Heart Rate (8867-4) 77 /min Blood Pressure Systolic (8480-6) 145 mm[Hg] Blood Pressure Diastolic (8462-4) 80 mm[Hg] 11/06/2024 04:10 PM Blood Pressure Systolic (8480-6) 1 12 mm[Hg] Blood Pressure Diastolic (8462-4) 58 mm[Hg] 11/06/2024 07:04 PM Blood Pressure Systolic (8480-6) 1 27 mm[Hg] Blood Pressure Diastolic (8462-4) 66 mm[Hg] 11/07/2024 05:08 AM Blood Pressure Systolic (8480-6) 1 37 mm[Hg] Blood Pressure Diastolic (8462-4) 74 mm[Hg] 11/07/2024 05:41 PM Blood Pressure Systolic (8480-6) 1 72 mm[Hg] Blood Pressure Diastolic (8462-4) 68 mm[Hg] 11/07/2024 11:15 AM Heart Rate (8867-4) 76 /min Blood Pressure Systolic (8480-6) 166 mm[Hg] Blood Pressure Diastolic (8462-4) 66 mm[Hg] 11/07/2024 08:47 PM Blood Pressure Systolic (8480-6) 1 29 mm[Hg] Blood Pressure Diastolic (8462-4) 80 mm[Hg] 11/08/2024 09:05 AM Blood Pressure Systolic (8480-6) 1 46 mm[Hg] Blood Pressure Diastolic (8462-4) 73 mm[Hg] 11/08/2024 09:06 AM Heart Rate (8867-4) 83 /min 11/08/2024 03:02 PM Blood Pressure Systolic (8480-6) 1 18 mm[Hg] Blood Pressure Diastolic (8462-4) 68 mm[Hg] 11/09/2024 07:26 AM Heart Rate (8867-4) 71 /min 11/09/2024 07:25 AM Blood Pressure Systolic (8480-6) 1 32 mm[Hg] Blood Pressure Diastolic (8462-4) 72 mm[Hg] 11/09/2024 02:14 PM Blood Pressure Systolic (8480-6) 1 14 mm[Hg] Blood Pressure Diastolic (8462-4) 50 mm[Hg] 11/09/2024 07:35 PM Blood Pressure Systolic (8480-6) 1 39 mm[Hg] Blood Pressure Diastolic (8462-4) 62 mm[Hg] 11/10/2024 08:44 AM Heart Rate (8867-4) 69 /min Blood Pressure Systolic (8480-6) 149 mm[Hg] Blood Pressure Diastolic (8462-4) 86 mm[Hg] 11/10/2024 08:28 PM Blood Pressure Systolic (8480-6) 1 12 mm[Hg] Blood Pressure Diastolic (8462-4) 69 mm[Hg] 11/11/2024 06:42 AM Heart Rate (8867-4) 74 /min Blood Pressure Systolic (8480-6) 143 mm[Hg] Blood Pressure Diastolic (8462-4) 84 mm[Hg] 11/11/2024 02:04 PM Blood Pressure Systolic (8480-6) 1 22 mm[Hg] Blood Pressure Diastolic (8462-4) 72 mm[Hg] 11/11/2024 06:58 PM Blood Pressure Systolic (8480-6) 1 51 mm[Hg] Blood Pressure Diastolic (8462-4) 93 mm[Hg] 11/12/2024 09:19 AM Heart Rate (8867-4) 74 /min Blood Pressure Systolic (8480-6) 153 mm[Hg] Blood Pressure Diastolic (8462-4) 111 mm[Hg] 11/12/2024 09:20 AM Temperature (8310-5) 98.9 [degF] Oxygen Saturation (51325-8) 97 % Respiratory Rate (9279-1) 18 /min 11/12/2024 05:13 AM Blood Pressure Systolic (8480-6) 1 36 mm[Hg] Blood Pressure Diastolic (8462-4) 72 mm[Hg] 11/12/2024 06:31 PM Blood Pressure Systolic (8480-6) 1 48 mm[Hg] Blood Pressure Diastolic (8462-4) 70 mm[Hg] 11/12/2024 09:32 PM Blood Pressure Systolic (8480-6) 1 40 mm[Hg] Blood Pressure Diastolic (8462-4) 78 mm[Hg] 11/13/2024 09:31 AM Heart Rate (8867-4) 76 /min Blood Pressure Systolic (8480-6) 129 mm[Hg] Blood Pressure Diastolic (8462-4) 77 mm[Hg] 11/13/2024 05:07 AM Blood Pressure Systolic (8480-6) 1 38 mm[Hg] Blood Pressure Diastolic (8462-4) 92 mm[Hg] 11/13/2024 03:51 PM Blood Pressure Systolic (8480-6) 1 26 mm[Hg] Blood Pressure Diastolic (8462-4) 73 mm[Hg] 11/13/2024 09:12 PM Blood Pressure Systolic (8480-6) 1 40 mm[Hg] Blood Pressure Diastolic (8462-4) 78 mm[Hg] 11/13/2024 06:34 PM Blood Pressure Systolic (8480-6) 1 67 mm[Hg] Blood Pressure Diastolic (8462-4) 93 mm[Hg] 11/14/2024 08:21 AM Heart Rate (8867-4) 78 /min 11/14/2024 08:20 AM Blood Pressure Systolic (8480-6) 1 29 mm[Hg] Blood Pressure Diastolic (8462-4) 64 mm[Hg] 11/14/2024 05:09 AM Blood Pressure Systolic (8480-6) 1 47 mm[Hg] Blood Pressure Diastolic (8462-4) 74 mm[Hg] 11/14/2024 05:43 PM Blood Pressure Systolic (8480-6) 1 12 mm[Hg] Blood Pressure Diastolic (8462-4) 61 mm[Hg] 11/14/2024 11:54 PM Blood Pressure Systolic (8480-6) 1 32 mm[Hg] Blood Pressure Diastolic (8462-4) 78 mm[Hg] 11/15/2024 07:20 AM Heart Rate (8867-4) 70 /min 11/15/2024 07:18 AM Blood Pressure Systolic (8480-6) 1 23 mm[Hg] Blood Pressure Diastolic (8462-4) 69 mm[Hg] 11/15/2024 01:40 PM Blood Pressure Systolic (8480-6) 1 10 mm[Hg] Blood Pressure Diastolic (8462-4) 57 mm[Hg] 11/15/2024 10:27 PM Blood Pressure Systolic (8480-6) 1 22 mm[Hg] Blood Pressure Diastolic (8462-4) 88 mm[Hg] 11/16/2024 08:24 AM Heart Rate (8867-4) 79 /min 11/16/2024 08:23 AM Blood Pressure Systolic (8480-6) 1 58 mm[Hg] Blood Pressure Diastolic (8462-4) 74 mm[Hg] 11/16/2024 02:48 PM Blood Pressure Systolic (8480-6) 1 44 mm[Hg] Blood Pressure Diastolic (8462-4) 80 mm[Hg] 11/16/2024 10:20 PM Blood Pressure Systolic (8480-6) 1 36 mm[Hg] Blood Pressure Diastolic (8462-4) 88 mm[Hg] 11/17/2024 08:13 AM Heart Rate (8867-4) 74 /min 11/17/2024 08:12 AM Blood Pressure Systolic (8480-6) 1 21 mm[Hg] Blood Pressure Diastolic (8462-4) 67 mm[Hg] 11/17/2024 04:21 PM Blood Pressure Systolic (8480-6) 1 34 mm[Hg] Blood Pressure Diastolic (8462-4) 71 mm[Hg] 11/17/2024 06:22 PM Blood Pressure Systolic (8480-6) 1 06 mm[Hg] Blood Pressure Diastolic (8462-4) 60 mm[Hg] 11/22/2024 08:58 PM Temperature (8310-5) 98.6 [degF] Oxygen Saturation (81242-2) 96 % Respiratory Rate (9279-1) 19 /min Heart Rate (8867-4) 92 /min Blood Pressure Systolic (8480-6) 132 mm[Hg] Blood Pressure Diastolic (8462-4) 47 mm[Hg] Body Height (8302-2) 68 [in_us] 11/23/2024 10:37 AM Temperature (8310-5) 98.4 [degF] Oxygen Saturation (99782-7) 97 % Respiratory Rate (9279-1) 17 /min Heart Rate (8867-4) 73 /min Blood Pressure Systolic (8480-6) 120 mm[Hg] Blood Pressure Diastolic (8462-4) 67 mm[Hg] 11/23/2024 08:04 PM Blood Pressure Systolic (8480-6) 1 41 mm[Hg] Blood Pressure Diastolic (8462-4) 78 mm[Hg] 11/23/2024 08:05 PM Temperature (8310-5) 99.2 [degF] Oxygen Saturation (46684-4) 95 % Respiratory Rate (9279-1) 21 /min Heart Rate (8867-4) 102 /min 11/24/2024 09:40 PM Temperature (8310-5) 97.7 [degF] Oxygen Saturation (29337-1) 94 % Respiratory Rate (9279-1) 16 /min Heart Rate (8867-4) 86 /min Blood Pressure Systolic (8480-6) 117 mm[Hg] Blood Pressure Diastolic (8462-4) 77 mm[Hg] 11/25/2024 04:42 AM Blood Pressure Systolic (8480-6) 1 24 mm[Hg] Blood Pressure Diastolic (8462-4) 64 mm[Hg] 11/25/2024 08:39 AM Temperature (8310-5) 97.5 [degF] Oxygen Saturation (68147-7) 97 % Respiratory Rate (9279-1) 14 /min Heart Rate (8867-4) 96 /min Blood Pressure Systolic (8480-6) 147 mm[Hg] Blood Pressure Diastolic (8462-4) 81 mm[Hg] 11/25/2024 06:55 AM Blood Pressure Systolic (8480-6) 1 51 mm[Hg] Blood Pressure Diastolic (8462-4) 79 mm[Hg] 11/25/2024 01:30 PM Blood Pressure Systolic (8480-6) 1 32 mm[Hg] Blood Pressure Diastolic (8462-4) 71 mm[Hg] 11/25/2024 07:27 PM Temperature (8310-5) 98.3 [degF] Oxygen Saturation (06516-6) 91 % Respiratory Rate (9279-1) 15 /min Heart Rate (8867-4) 93 /min 11/25/2024 09:43 PM Blood Pressure Systolic (8480-6) 1 40 mm[Hg] Blood Pressure Diastolic (8462-4) 70 mm[Hg] 11/25/2024 06:43 PM Blood Pressure Systolic (8480-6) 1 36 mm[Hg] Blood Pressure Diastolic (8462-4) 73 mm[Hg] 11/26/2024 07:43 AM Blood Pressure Systolic (8480-6) 1 52 mm[Hg] Blood Pressure Diastolic (8462-4) 91 mm[Hg] 11/26/2024 05:02 AM Blood Pressure Systolic (8480-6) 1 44 mm[Hg] Blood Pressure Diastolic (8462-4) 80 mm[Hg] 11/26/2024 01:23 PM Blood Pressure Systolic (8480-6) 8 1 mm[Hg] Blood Pressure Diastolic (8462-4) 55 mm[Hg] 11/26/2024 03:25 PM Temperature (8310-5) 97.1 [degF] Oxygen Saturation (08822-7) 96 % Respiratory Rate (9279-1) 16 /min Heart Rate (8867-4) 61 /min Blood Pressure Systolic (8480-6) 152 mm[Hg] Blood Pressure Diastolic (8462-4) 91 mm[Hg] 11/26/2024 07:07 PM Blood Pressure Systolic (8480-6) 9 8 mm[Hg] Blood Pressure Diastolic (8462-4) 64 mm[Hg] 11/26/2024 10:40 PM Temperature (8310-5) 97.3 [degF] Oxygen Saturation (14704-6) 93 % Respiratory Rate (9279-1) 16 /min Heart Rate (8867-4) 79 /min 11/27/2024 06:50 AM Blood Pressure Systolic (8480-6) 1 11 mm[Hg] Blood Pressure Diastolic (8462-4) 68 mm[Hg] 11/27/2024 05:34 PM Temperature (8310-5) 98.9 [degF] Oxygen Saturation (96920-1) 97 % Respiratory Rate (9279-1) 16 /min Heart Rate (8867-4) 81 /min Blood Pressure Systolic (8480-6) 111 mm[Hg] Blood Pressure Diastolic (8462-4) 68 mm[Hg] 11/27/2024 01:15 PM Blood Pressure Systolic (8480-6) 1 23 mm[Hg] Blood Pressure Diastolic (8462-4) 62 mm[Hg] 11/27/2024 08:00 PM Temperature (8310-5) 98.2 [degF] Oxygen Saturation (19037-5) 92 % Respiratory Rate (9279-1) 15 /min Heart Rate (8867-4) 89 /min Blood Pressure Systolic (8480-6) 107 mm[Hg] Blood Pressure Diastolic (8462-4) 67 mm[Hg] 11/28/2024 12:27 PM Oxygen Saturation (91486-3) 94 % Respiratory Rate (9279-1) 19 /min Heart Rate (8867-4) 92 /min Blood Pressure Systolic (8480-6) 102 mm[Hg] Blood Pressure Diastolic (8462-4) 58 mm[Hg] 11/28/2024 12:26 PM Temperature (8310-5) 98.5 [degF] 11/28/2024 10:23 PM Blood Pressure Systolic (8480-6) 1 01 mm[Hg] Blood Pressure Diastolic (8462-4) 59 mm[Hg] 11/28/2024 10:21 PM Temperature (8310-5) 98.2 [degF] Oxygen Saturation (55321-8) 95 % Respiratory Rate (9279-1) 18 /min Heart Rate (8867-4) 80 /min 11/28/2024 06:43 PM Blood Pressure Systolic (8480-6) 1 08 mm[Hg] Blood Pressure Diastolic (8462-4) 54 mm[Hg] 11/29/2024 07:56 AM Temperature (8310-5) 98 [degF] Oxygen Saturation (70714-2) 94 % Respiratory Rate (9279-1) 19 /min Heart Rate (8867-4) 84 /min Blood Pressure Systolic (8480-6) 124 mm[Hg] Blood Pressure Diastolic (8462-4) 86 mm[Hg] 11/29/2024 08:47 PM Temperature (8310-5) 98.2 [degF] Oxygen Saturation (83293-9) 94 % Respiratory Rate (9279-1) 17 /min Heart Rate (8867-4) 78 /min 11/30/2024 05:11 AM Blood Pressure Systolic (8480-6) 1 27 mm[Hg] Blood Pressure Diastolic (8462-4) 72 mm[Hg] 11/29/2024 10:23 PM Blood Pressure Systolic (8480-6) 1 27 mm[Hg] Blood Pressure Diastolic (8462-4) 61 mm[Hg] 11/30/2024 08:05 AM Temperature (8310-5) 98.1 [degF] Oxygen Saturation (84382-5) 93 % Respiratory Rate (9279-1) 20 /min Heart Rate (8867-4) 92 /min 11/30/2024 08:04 AM Blood Pressure Systolic (8480-6) 1 39 mm[Hg] Blood Pressure Diastolic (8462-4) 68 mm[Hg] 11/29/2024 07:20 PM Blood Pressure Systolic (8480-6) 1 40 mm[Hg] Blood Pressure Diastolic (8462-4) 78 mm[Hg] 11/30/2024 01:58 PM Blood Pressure Systolic (8480-6) 1 48 mm[Hg] Blood Pressure Diastolic (8462-4) 79 mm[Hg] 12/01/2024 12:24 AM Temperature (8310-5) 97.6 [degF] Oxygen Saturation (50883-1) 94 % Respiratory Rate (9279-1) 20 /min Heart Rate (8867-4) 90 /min Blood Pressure Systolic (8480-6) 174 mm[Hg] Blood Pressure Diastolic (8462-4) 92 mm[Hg] 11/30/2024 08:47 PM Blood Pressure Systolic (8480-6) 1 74 mm[Hg] Blood Pressure Diastolic (8462-4) 92 mm[Hg] 12/01/2024 12:07 AM Blood Pressure Systolic (8480-6) 1 49 mm[Hg] Blood Pressure Diastolic (8462-4) 81 mm[Hg] 12/01/2024 05:45 AM Blood Pressure Systolic (8480-6) 1 28 mm[Hg] Blood Pressure Diastolic (8462-4) 80 mm[Hg] 12/01/2024 09:34 AM Temperature (8310-5) 97.8 [degF] Oxygen Saturation (55315-4) 95 % Respiratory Rate (9279-1) 19 /min Heart Rate (8867-4) 93 /min 12/01/2024 08:22 AM Blood Pressure Systolic (8480-6) 1 24 mm[Hg] Blood Pressure Diastolic (8462-4) 66 mm[Hg] 12/01/2024 02:05 PM Blood Pressure Systolic (8480-6) 1 21 mm[Hg] Blood Pressure Diastolic (8462-4) 51 mm[Hg] 12/01/2024 07:16 PM Blood Pressure Systolic (8480-6) 1 08 mm[Hg] Blood Pressure Diastolic (8462-4) 64 mm[Hg] 12/01/2024 07:20 PM Temperature (8310-5) 97.6 [degF] Oxygen Saturation (27246-9) 91 % Respiratory Rate (9279-1) 15 /min Heart Rate (8867-4) 81 /min 12/01/2024 09:10 PM Blood Pressure Systolic (8480-6) 1 10 mm[Hg] Blood Pressure Diastolic (8462-4) 76 mm[Hg] 12/02/2024 05:00 AM Blood Pressure Systolic (8480-6) 1 26 mm[Hg] Blood Pressure Diastolic (8462-4) 82 mm[Hg] 12/02/2024 10:10 AM Blood Pressure Systolic (8480-6) 1 18 mm[Hg] Blood Pressure Diastolic (8462-4) 69 mm[Hg] 12/02/2024 02:13 PM Temperature (8310-5) 98.7 [degF] Oxygen Saturation (42997-8) 98 % Respiratory Rate (9279-1) 16 /min Heart Rate (8867-4) 73 /min Blood Pressure Systolic (8480-6) 118 mm[Hg] Blood Pressure Diastolic (8462-4) 69 mm[Hg] 12/02/2024 02:55 PM Blood Pressure Systolic (8480-6) 1 24 mm[Hg] Blood Pressure Diastolic (8462-4) 72 mm[Hg] 12/02/2024 08:40 PM Blood Pressure Systolic (8480-6) 1 12 mm[Hg] Blood Pressure Diastolic (8462-4) 68 mm[Hg] 12/02/2024 09:39 PM Temperature (8310-5) 97.4 [degF] Oxygen Saturation (94987-2) 98 % Respiratory Rate (9279-1) 16 /min Heart Rate (8867-4) 74 /min Blood Pressure Systolic (8480-6) 112 mm[Hg] Blood Pressure Diastolic (8462-4) 68 mm[Hg] 12/03/2024 09:05 AM Temperature (8310-5) 97.7 [degF] Oxygen Saturation (56348-3) 94 % Respiratory Rate (9279-1) 16 /min Heart Rate (8867-4) 75 /min Blood Pressure Systolic (8480-6) 104 mm[Hg] Blood Pressure Diastolic (8462-4) 63 mm[Hg] 12/03/2024 07:34 AM Blood Pressure Systolic (8480-6) 1 04 mm[Hg] Blood Pressure Diastolic (8462-4) 63 mm[Hg] 12/03/2024 11:16 AM Body Weight (14383-2) 179.6 [lb_av ] Body Mass Index (95874-1) 27.31 kg/m2 12/03/2024 02:45 PM Blood Pressure Systolic (8480-6) 9 8 mm[Hg] Blood Pressure Diastolic (8462-4) 56 mm[Hg] 12/03/2024 11:26 PM Temperature (8310-5) 97.4 [degF] Oxygen Saturation (81448-8) 98 % Respiratory Rate (9279-1) 18 /min Heart Rate (8867-4) 55 /min Blood Pressure Systolic (8480-6) 113 mm[Hg] Blood Pressure Diastolic (8462-4) 64 mm[Hg] 12/03/2024 06:49 PM Blood Pressure Systolic (8480-6) 1 13 mm[Hg] Blood Pressure Diastolic (8462-4) 64 mm[Hg] 12/04/2024 08:26 AM Body Weight (30365-8) 179.4 [lb_av ] Body Mass Index (61409-7) 27.27 kg/m2 12/04/2024 08:25 AM Temperature (8310-5) 97.6 [degF] Oxygen Saturation (95988-0) 94 % Respiratory Rate (9279-1) 18 /min Heart Rate (8867-4) 76 /min Blood Pressure Systolic (8480-6) 115 mm[Hg] Blood Pressure Diastolic (8462-4) 68 mm[Hg] 12/04/2024 01:35 PM Blood Pressure Systolic (8480-6) 1 47 mm[Hg] Blood Pressure Diastolic (8462-4) 86 mm[Hg] 12/04/2024 07:19 PM Temperature (8310-5) 98.4 [degF] Oxygen Saturation (61911-8) 92 % Respiratory Rate (9279-1) 16 /min Heart Rate (8867-4) 64 /min 12/04/2024 06:24 PM Blood Pressure Systolic (8480-6) 1 47 mm[Hg] Blood Pressure Diastolic (8462-4) 94 mm[Hg] 12/04/2024 10:07 PM Blood Pressure Systolic (8480-6) 1 28 mm[Hg] Blood Pressure Diastolic (8462-4) 78 mm[Hg] 12/05/2024 06:34 AM Temperature (8310-5) 98.3 [degF] Oxygen Saturation (18381-5) 93 % Respiratory Rate (9279-1) 18 /min Heart Rate (8867-4) 65 /min Blood Pressure Systolic (8480-6) 102 mm[Hg] Blood Pressure Diastolic (8462-4) 67 mm[Hg] 12/05/2024 04:36 AM Blood Pressure Systolic (8480-6) 1 27 mm[Hg] Blood Pressure Diastolic (8462-4) 76 mm[Hg] 12/05/2024 01:34 PM Blood Pressure Systolic (8480-6) 1 10 mm[Hg] Blood Pressure Diastolic (8462-4) 71 mm[Hg] Social History Element Description Date Comment Tobacco smoking status NHIS Never smoker Encounters Type CPT Code Date Location Provider Indication s encounter report 04/05/2021 03:0 7 PM - 11/18/2024 05:04 AM GOKUL PHELPS MD 02 encounter report 04/05/2021 03:0 7 PM - 11/24/2024 04:49 PM GOKUL PHELPS MD 02 encounter report 04/05/2021 03:0 7 PM - 12/05/2024 07:00 PM GOKUL PHELPS MD Advance Directives Directive Description Verification Date Supporting Document(s) Other Directive
[2025-03-31 16:00] LABS: Hematocrit 35.8 % (37-53); Hemoglobin 11.40 g/dL (11.27-16.99); Mean Corpuscular HGB Conc 31.8 g/dL (30-55); Mean Corpuscular Hemoglobin 27.9 pg (27-33); Mean Corpuscular Volume 87.7 fl (82-101); Nucleated Red Blood Cells % 0 %; Platelet Count 388 10^3/cmm (157-399); Red Blood Count 4.08 10^6/uL (3.85-5.65); White Blood Count 15.95 10^3/uL (3.29-11.43)
--- NOTE | 2025-03-31 16:00 | W.ED.MALEGU ---
Documented by User: Bucky Walker DO 04/01/25 06:36 HPI - Male Genitourinary General: Chief complaint: Urogenital-Male Stated complaint: ABDOMINAL PAIN Time Seen by Provider: 03/31/25 18:10 History of Present Illness: 74-year-old male presents emergency room has no specific complaints at this time. He was recently started antibiotics for a penile drainage. No fever sweats or chills. When I seen him he complained a little bit of abdominal discomfort no vomiting or diarrhea. He denies fever sweats chills denies chest pain or shortness of breath. Contacted residential they do not have a culture available prior to starting complete current antibiotics orally. Patient is diabetic Associated symptoms: Deny dysuria Related Data Home Medications ?Medication ?Instructions ?Recorded ?Confirmed lisinopril 20 mg tablet 20 mg PO BID 04/04/20 12/06/24 tamsulosin 0.4 mg capsule 0.4 mg PO BEDTIME 04/04/20 12/06/24 bisacodyl 10 mg rectal suppository 10 mg [place] DAILY PRN Constipation 02/12/22 12/06/24 bisacodyl 5 mg tablet,delayed 10 mg PO DAILY PRN Constipation 02/12/22 12/06/24 release gabapentin 100 mg capsule 100 mg PO BEDTIME 02/12/22 12/06/24 insulin glargine 100 unit/mL (3 20 unit SUBCUT BEDTIME 02/12/22 12/06/24 mL) subcutaneous pen (Lantus Solostar U-100 Insulin) metformin 1,000 mg tablet 1,000 mg PO BID 02/12/22 12/06/24 tramadol 50 mg tablet 50 mg PO Q6H PRN Pain 02/12/22 12/06/24 acetaminophen 325 mg tablet 650 mg PO Q6H PRN PAIN OR FEVER 07/08/23 12/06/24 apixaban 5 mg tablet (Eliquis) 5 mg PO BID 07/08/23 12/06/24 atorvastatin 10 mg tablet 10 mg PO BEDTIME 07/08/23 12/06/24 vit C 50 mg-E 15 unit-zinc cit 4.5 1 tab PO BEDTIME 07/08/23 12/06/24 mg-lutein 2.5 mg-zeaxan chew tablet ([employer] [facility]) cyanocobalamin (vitamin B-12) 500 250 mcg PO DAILY 01/24/24 12/06/24 mcg tablet insulin aspart U-100 100 unit/mL See Rx Instructions .Route .COMPLEX 01/24/24 12/06/24 (3 mL) subcutaneous pen (Novolog FlexPen U-100 Insulin aspart) loratadine 10 mg tablet 10 mg PO DAILY 01/24/24 12/06/24 amlodipine 5 mg tablet 5 mg PO DAILY 11/18/24 12/06/24 clonidine HCl 0.1 mg tablet 0.1 mg PO TID 11/18/24 12/06/24 diltiazem HCl 180 mg 180 mg PO DAILY 11/18/24 12/06/24 capsule,extended release 24 hr dulaglutide 0.75 mg/0.5 mL See Rx Instructions .Route .COMPLEX 11/18/24 12/06/24 subcutaneous pen injector (Trulicity) empagliflozin 10 mg tablet 10 mg PO DAILY 11/18/24 12/06/24 (Jardiance) potassium chloride 10 mEq 10 meq PO DAILY 11/18/24 12/06/24 tablet,extended release sertraline 100 mg tablet 100 mg PO BEDTIME 11/18/24 12/06/24 Previous Rx's ?Medication ?Instructions ?Recorded ondansetron 4 mg disintegrating 4 mg PO Q6H PRN nausea and 11/24/24 tablet vomiting #14 tabs furosemide 20 mg tablet (Lasix) 20 mg PO DAILY #30 tabs 12/09/24 Allergies Allergy/AdvReac Type Severity Reaction Status Date / Time Penicillins Allergy ALGY-Rash Verified 12/21/24 11:05 Review of Systems Const: Denies: fever(s) or chills Card: Denies: chest pain Resp: Denies: dyspnea GI: Denies: abdominal pain : Reports: urinary urgency and penile discharge; Denies: dysuria or urinary frequency Musc: Denies: neck pain or back pain Skin/Breast: Denies: rash PFSH ED PFSH: Medical History Chronic indwelling Regan catheter Atrial fibrillation with rapid ventricular response Peripheral neuropathy CAD (coronary artery disease) Depression Chronic anticoagulation CVA (cerebral vascular accident) 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 CKD (chronic kidney disease) Baseline creatinine 1.9 Poorly controlled type 2 diabetes mellitus Dyslipidemia DVT (deep venous thrombosis) HTN (hypertension) Polycythemia Atrial fibrillation Surgical History S/P ORIF (open reduction internal fixation) fracture No pertinent past surgical history Family History Other CAD (coronary artery disease) Cancer Social History Smoking and tobacco/nicotine status: former use of tobacco/nicotine Quit status (tobacco/nicotine): has quit using Year quit tobacco: 2010 Former quit date comment: Due to stroke Alcohol intake: former Year of sobriety/quit date alcohol: 2010 Former alcohol use details: Never heavy drinker Substance/Drug Use: never Additional social history: Next of kin is his brother Michael Mcintosh who is 69 years old patient wants full CODE STATUS Caregiver/support person: No Household members: none Housing: House 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 [employer] Physical Exam Const: GENERAL APPEARANCE: cooperative ORIENTATION/CONSCIOUSNESS: Yes awake, Yes oriented to person, Yes oriented to place and Yes oriented to time HENMT: COMMON NORMALS: normocephalic, atraumatic and hearing grossly normal bilaterally HEAD & SCALP: normocephalic and atraumatic Resp: COMMON NORMALS: normal respiratory effort, No retractions, No use of accessory muscles and clear to auscultation bilaterally AUSCULTATION: clear to auscultation bilaterally Cardio: COMMON NORMALS: regular rate, regular rhythm and No murmurs present (Cardio) RATE: regular rate RHYTHM: regular rhythm GI: COMMON NORMALS: Soft to palpation and No hepatosplenomegaly present AUSCULTATION: Yes normoactive bowel sounds PALPATION: Yes Soft to palpation, No Tenderness to palpation present (GI), No Guarding due to palpation present (GI) and Yes No hepatosplenomegaly present Extremity: COMMON NORMALS: normal to inspection, capillary refill normal, no clubbing, cyanosis or edema, no calf tenderness and no pedal edema Neuro: SENSORIUM/ORIENTATION: Yes oriented to person, Yes oriented to place and Yes oriented to time Skin: COMMON NORMALS: no rashes or lesions noted GENERAL SKIN EXAM: no rashes or lesions noted Course Vital Signs: Vital signs: Vital Signs Temperature 97.6 F 04/01/25 04:00 Pulse Rate 74 04/01/25 04:00 Respiratory Rate 17 04/01/25 04:00 Blood Pressure 110/64 04/01/25 04:00 Pulse Oximetry 94 04/01/25 04:00 Oxygen Delivery Me thod Room Air 04/01/25 06:13 Fraction of Inspir ed Oxygen 21 03/31/25 17:27 MDM - Male Medical Decision Making Patient has acute kidney injury with hyperkalemia cystitis. He has significant urinary retention noted on CT with hydronephrosis. Regan placed. He is draining well. Hyperkalemia treated and patient given IV fluids. Reviewed old records that there is a previous recent urine culture show Pseudomonas with some resistance. Patient is allergic to penicillin will start on meropenem initially. Blood cultures have been done lactic acid slightly elevated. No significant EKG changes patient is in atrial fibrillation which she has had in the past. Dr. An: Patient signed out to me by Dr. Walker at shift change with expectation patient will be admitted to the hospitalist service for correction of CHRISTINE. Regan catheter in place and draining well. IV fluids ordered. Initially I spoke with Dr. Henson who recommended patient may benefit from transfer to higher level of care where urology can consult on the case. I spoke with Dr. Castillo, urology, at [facility] who reviewed the case and all imaging and all labs and recommended that there is no need for transfer. Additionally, [facility] is on divert, as are both [facility] in [place] at this time. Dr. Castillo recommended that patient can be treated acutely here at [facility] with IV fluids to improve CHRISTINE on CKD and that patient can follow-up with Dr. Castillo in the outpatient setting not emergently to address the underlying cause of obstructive uropathy. I will reengage the hospitalist team here at [facility] to see whether they are okay with following Dr. Castillo's recommendations. Lab Data 04/01/25 04:20 04/01/25 04:20 Radiology Impressions Abdomen/Pelvis CT 03/31/25 16:40 IMPRESSION: 1. Severe bladder distension with bilateral hydronephrosis that is most likely caused by prostate enlargement and bladder outlet obstruction 2. Small left pleural effusion 3. Healing left pelvic fractures 4. Cholelithiasis Scrotum Ultrasound 03/31/25 16:43 IMPRESSION: 1. Diffuse skin thickening of uncertain etiology 2. Tubular ectasia of the left testis 3. Small left epididymal cyst Laboratory Results WBC 15.95 10^3/uL (3.29-11.43) H 03/31/25 15:53 RBC 4.08 10^6/uL (3.85-5.65) 03/31/25 15:53 Hgb 11.40 g/dL (11.27-16.99) 03/31/25 15:53 Hct 35.8 % (37-53) L 03/31/25 15:53 MCV 87.7 fl (82-101) 03/31/25 15:53 MCH 27.9 pg (27-33) 03/31/25 15:53 MCHC 31.8 g/dL (30-55) 03/31/25 15:53 RDW 15.0 % (12.1-15.1) 03/31/25 15:53 Plt Count 388 10^3/cmm (157-399) 03/31/25 15:53 MPV 9.7 fL (7.4-10.4) 03/31/25 15:53 Neut % (Auto) 86.0 % 03/31/25 15:53 Lymph % (Auto) 5.3 % 03/31/25 15:53 Humphreys % (Auto) 6.9 % 03/31/25 15:53 Eos % (Auto) 0.3 % 03/31/25 15:53 Baso % (Auto) 0.4 % 03/31/25 15:53 Neut # (Auto) 13.71 10^3/uL (1.8-7.7) H 03/31/25 15:53 Lymph # (Auto) 0.9 10^3/uL (0.8-4.8) 03/31/25 15:53 Humphreys # (Auto) 1.1 10^3/uL (0.2-0.9) H 03/31/25 15:53 Eos # (Auto) 0.1 10^3/uL (0.0-0.8) 03/31/25 15:53 Baso # (Auto) 0.1 10^3/uL (0.0-0.1) 03/31/25 15:53 Nucleated RBC % (auto) 0 % 03/31/25 15:53 Nucleated RBCs # 0.0 /100WBC 03/31/25 15:53 Sodium 128 mmol/L (136-145) L 03/31/25 15:53 Potassium 5.7 mmol/L (3.5-5.1) H 03/31/25 15:53 Chloride 94 mmol/L (98-107) L 03/31/25 15:53 Carbon Dioxide 19 mmol/L (22-29) L 03/31/25 15:53 Anion Gap 20.7 (5-19) H 03/31/25 15:53 BUN 52 mg/dL (8-23) H 03/31/25 15:53 Creatinine 3.1 mg/dL (0.7-1.2) H 03/31/25 15:53 GFR Calculation Not Reportable 03/31/25 15:53 Glucose 167 mg/dL (65-115) H 03/31/25 15:53 Calculated Osmolality 284 mOsm/kg (285-295) L 03/31/25 15:53 Lactic Acid 1.9 mmol/L (0.5-2.2) 03/31/25 15:53 Calcium 8.8 mg/dL (8.5-10.5) 03/31/25 15:53 Total Bilirubin 0.2 mg/dL (0.15-1.2) 03/31/25 15:53 AST 7 U/L (0-40) 03/31/25 15:53 ALT < 5 U/L (0-41) 03/31/25 15:53 Alkaline Phosphatase 138 U/L (40-130) H 03/31/25 15:53 Total Protein 7.6 g/dL (6.6-8.7) 03/31/25 15:53 Albumin 2.9 g/dL (3.5-5.2) L 03/31/25 15:53 Globulin 4.7 g/dL (1.3-4.6) H 03/31/25 15:53 Urine Color Yellow (Yellow) 03/31/25 16:07 Urine Appearance Turbid (CLEAR) A 03/31/25 16:07 Urine pH (5-7) 03/31/25 16:07 Ur Specific [place] Not Reportable 03/31/25 16:07 Urine Protein Not Reportable 03/31/25 16:07 Urine Glucose (UA) Not Reportable 03/31/25 16:07 Urine Ketones Not Reportable 03/31/25 16:07 Urine Blood Not Reportable 03/31/25 16:07 Urine Nitrate Not Reportable 03/31/25 16:07 Urine Bilirubin Not Reportable 03/31/25 16:07 Urine Urobilinogen Not Reportable 03/31/25 16:07 Ur Leukocyte Esterase Not Reportable 03/31/25 16:07 Urine RBC 0-4 /hpf (0-2) H 03/31/25 16:07 Urine WBC Too numerous to cnt /hpf (0-5) H 03/31/25 16:07 Ur Squamous Epith Cells 0-4 /hpf (0-5) H 03/31/25 16:07 Amorphous Sediment Not Reportable 03/31/25 16:07 Urine Bacteria 2+ /hpf (NONE) H 03/31/25 16:07 Discharge Plan Discharge Patient Disposition: Admitted As Inpatient Admit Provider: Hugo Henson Clinical Impression: CHRISTINE (acute kidney injury), Acute hyperkalemia, Cystitis, Sepsis, Acute urinary retention Condition: Stable Coding Level of Care Code ED Content Creation Manager for Chg Fwd Documented by User: Wai An MD 04/01/25 05:33 HPI - Male Genitourinary General: Chief complaint: Urogenital-Male Stated complaint: ABDOMINAL PAIN Time Seen by Provider: 03/31/25 18:10 Related Data Home Medications ?Medication ?Instructions ?Recorded ?Confirmed lisinopril 20 mg tablet 20 mg PO BID 04/04/20 12/06/24 tamsulosin 0.4 mg capsule 0.4 mg PO BEDTIME 04/04/20 12/06/24 bisacodyl 10 mg rectal suppository 10 mg VA DAILY PRN Constipation 02/12/22 12/06/24 bisacodyl 5 mg tablet,delayed 10 mg PO DAILY PRN Constipation 02/12/22 12/06/24 release gabapentin 100 mg capsule 100 mg PO BEDTIME 02/12/22 12/06/24 insulin glargine 100 unit/mL (3 20 unit SUBCUT BEDTIME 02/12/22 12/06/24 mL) subcutaneous pen (Lantus Solostar U-100 Insulin) metformin 1,000 mg tablet 1,000 mg PO BID 02/12/22 12/06/24 tramadol 50 mg tablet 50 mg PO Q6H PRN Pain 02/12/22 12/06/24 acetaminophen 325 mg tablet 650 mg PO Q6H PRN PAIN OR FEVER 07/08/23 12/06/24 apixaban 5 mg tablet (Eliquis) 5 mg PO BID 07/08/23 12/06/24 atorvastatin 10 mg tablet 10 mg PO BEDTIME 07/08/23 12/06/24 vit C 50 mg-E 15 unit-zinc cit 4.5 1 tab PO BEDTIME 07/08/23 12/06/24 mg-lutein 2.5 mg-zeaxan chew tablet ([employer] [facility]) cyanocobalamin (vitamin B-12) 500 250 mcg PO DAILY 01/24/24 12/06/24 mcg tablet insulin aspart U-100 100 unit/mL See Rx Instructions .Route .COMPLEX 01/24/24 12/06/24 (3 mL) subcutaneous pen (Novolog FlexPen U-100 Insulin aspart) loratadine 10 mg tablet 10 mg PO DAILY 01/24/24 12/06/24 amlodipine 5 mg tablet 5 mg PO DAILY 11/18/24 12/06/24 clonidine HCl 0.1 mg tablet 0.1 mg PO TID 11/18/24 12/06/24 diltiazem HCl 180 mg 180 mg PO DAILY 11/18/24 12/06/24 capsule,extended release 24 hr dulaglutide 0.75 mg/0.5 mL See Rx Instructions .Route .COMPLEX 11/18/24 12/06/24 subcutaneous pen injector (Trulicity) empagliflozin 10 mg tablet 10 mg PO DAILY 11/18/24 12/06/24 (Jardiance) potassium chloride 10 mEq 10 meq PO DAILY 11/18/24 12/06/24 tablet,extended release sertraline 100 mg tablet 100 mg PO BEDTIME 11/18/24 12/06/24 Previous Rx's ?Medication ?Instructions ?Recorded ondansetron 4 mg disintegrating 4 mg PO Q6H PRN nausea and 11/24/24 tablet vomiting #14 tabs furosemide 20 mg tablet (Lasix) 20 mg PO DAILY #30 tabs 12/09/24 Allergies Allergy/AdvReac Type Severity Reaction Status Date / Time Penicillins Allergy ALGY-Rash Verified 12/21/24 11:05 [facility] PFSH: Medical History Chronic indwelling Regan catheter Atrial fibrillation with rapid ventricular response Peripheral neuropathy CAD (coronary artery disease) Depression Chronic anticoagulation CVA (cerebral vascular accident) 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 CKD (chronic kidney disease) Baseline creatinine 1.9 Poorly controlled type 2 diabetes mellitus Dyslipidemia DVT (deep venous thrombosis) HTN (hypertension) Polycythemia Atrial fibrillation Surgical History S/P ORIF (open reduction internal fixation) fracture No pertinent past surgical history Family History Other CAD (coronary artery disease) Cancer Social History Smoking and tobacco/nicotine status: former use of tobacco/nicotine Quit status (tobacco/nicotine): has quit using Year quit tobacco: 2010 Former quit date comment: Due to stroke Alcohol intake: former Year of sobriety/quit date alcohol: 2010 Former alcohol use details: Never heavy drinker Substance/Drug Use: never Additional social history: Next of kin is his brother Michael Mcintosh who is 69 years old patient wants full CODE STATUS Caregiver/support person: No Household members: none Housing: House 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 An: Patient signed out to me by Dr. Walker at shift change with expectation patient will be admitted to the hospitalist service for correction of CHRISTINE. Regan catheter in place and draining well. IV fluids ordered. Initially I spoke with Dr. Henson who recommended patient may benefit from transfer to higher level of care where urology can consult on the case. I spoke with Dr. Castillo, urology, at [facility] who reviewed the case and all imaging and all labs and recommended that there is no need for transfer. Additionally, [facility] is on divert, as are both [facility] in [place] at this time. Dr. Castillo recommended that patient can be treated acutely here at [facility] with IV fluids to improve CHRISTINE on CKD and that patient can follow-up with Dr. Castillo in the outpatient setting not emergently to address the underlying cause of obstructive uropathy. I will reengage the hospitalist team here at [facility] to see whether they are okay with following Dr. Castillo's recommendations. Lab Data 04/01/25 04:20 04/01/25 04:20 Radiology Impressions Abdomen/Pelvis CT 03/31/25 16:40 IMPRESSION: 1. Severe bladder distension with bilateral hydronephrosis that is most likely caused by prostate enlargement and bladder outlet obstruction 2. Small left pleural effusion 3. Healing left pelvic fractures 4. Cholelithiasis Scrotum Ultrasound 03/31/25 16:43 IMPRESSION: 1. Diffuse skin thickening of uncertain etiology 2. Tubular ectasia of the left testis 3. Small left epididymal cyst Laboratory Results WBC 15.95 10^3/uL (3.29-11.43) H 03/31/25 15:53 RBC 4.08 10^6/uL (3.85-5.65) 03/31/25 15:53 Hgb 11.40 g/dL (11.27-16.99) 03/31/25 15:53 Hct 35.8 % (37-53) L 03/31/25 15:53 MCV 87.7 fl (82-101) 03/31/25 15:53 MCH 27.9 pg (27-33) 03/31/25 15:53 MCHC 31.8 g/dL (30-55) 03/31/25 15:53 RDW 15.0 % (12.1-15.1) 03/31/25 15:53 Plt Count 388 10^3/cmm (157-399) 03/31/25 15:53 MPV 9.7 fL (7.4-10.4) 03/31/25 15:53 Neut % (Auto) 86.0 % 03/31/25 15:53 Lymph % (Auto) 5.3 % 03/31/25 15:53 Humphreys % (Auto) 6.9 % 03/31/25 15:53 Eos % (Auto) 0.3 % 03/31/25 15:53 Baso % (Auto) 0.4 % 03/31/25 15:53 Neut # (Auto) 13.71 10^3/uL (1.8-7.7) H 03/31/25 15:53 Lymph # (Auto) 0.9 10^3/uL (0.8-4.8) 03/31/25 15:53 Humphreys # (Auto) 1.1 10^3/uL (0.2-0.9) H 03/31/25 15:53 Eos # (Auto) 0.1 10^3/uL (0.0-0.8) 03/31/25 15:53 Baso # (Auto) 0.1 10^3/uL (0.0-0.1) 03/31/25 15:53 Nucleated RBC % (auto) 0 % 03/31/25 15:53 Nucleated RBCs # 0.0 /100WBC 03/31/25 15:53 Sodium 128 mmol/L (136-145) L 03/31/25 15:53 Potassium 5.7 mmol/L (3.5-5.1) H 03/31/25 15:53 Chloride 94 mmol/L (98-107) L 03/31/25 15:53 Carbon Dioxide 19 mmol/L (22-29) L 03/31/25 15:53 Anion Gap 20.7 (5-19) H 03/31/25 15:53 BUN 52 mg/dL (8-23) H 03/31/25 15:53 Creatinine 3.1 mg/dL (0.7-1.2) H 03/31/25 15:53 GFR Calculation Not Reportable 03/31/25 15:53 Glucose 167 mg/dL (65-115) H 03/31/25 15:53 Calculated Osmolality 284 mOsm/kg (285-295) L 03/31/25 15:53 Lactic Acid 1.9 mmol/L (0.5-2.2) 03/31/25 15:53 Calcium 8.8 mg/dL (8.5-10.5) 03/31/25 15:53 Total Bilirubin 0.2 mg/dL (0.15-1.2) 03/31/25 15:53 AST 7 U/L (0-40) 03/31/25 15:53 ALT < 5 U/L (0-41) 03/31/25 15:53 Alkaline Phosphatase 138 U/L (40-130) H 03/31/25 15:53 Total Protein 7.6 g/dL (6.6-8.7) 03/31/25 15:53 Albumin 2.9 g/dL (3.5-5.2) L 03/31/25 15:53 Globulin 4.7 g/dL (1.3-4.6) H 03/31/25 15:53 Urine Color Yellow (Yellow) 03/31/25 16:07 Urine Appearance Turbid (CLEAR) A 03/31/25 16:07 Urine pH (5-7) 03/31/25 16:07 Ur Specific [place] Not Reportable 03/31/25 16:07 Urine Protein Not Reportable 03/31/25 16:07 Urine Glucose (UA) Not Reportable 03/31/25 16:07 Urine Ketones Not Reportable 03/31/25 16:07 Urine Blood Not Reportable 03/31/25 16:07 Urine Nitrate Not Reportable 03/31/25 16:07 Urine Bilirubin Not Reportable 03/31/25 16:07 Urine Urobilinogen Not Reportable 03/31/25 16:07 Ur Leukocyte Esterase Not Reportable 03/31/25 16:07 Urine RBC 0-4 /hpf (0-2) H 03/31/25 16:07 Urine WBC Too numerous to cnt /hpf (0-5) H 03/31/25 16:07 Ur Squamous Epith Cells 0-4 /hpf (0-5) H 03/31/25 16:07 Amorphous Sediment Not Reportable 03/31/25 16:07 Urine Bacteria 2+ /hpf (NONE) H 03/31/25 16:07 All radiology interpretation(s) finalized by discharge EKG Data EKG 1: Interpretation: Time?1750?atrial fibrillation with RVR, rate of 107, no ST segment elevation or depression, no T wave inversions, QTc = 376 Discharge Plan Discharge Patient Disposition: Admitted As Inpatient Admit Provider: Hugo Henson Clinical Impression: CHRISTINE (acute kidney injury), Acute hyperkalemia, Cystitis, Sepsis, Acute urinary retention Condition: Stable Coding Level of Care Code ED Content Creation Manager for Sergio Dahl
[2025-03-31 16:14] LABS: Add Urine Microscopic? YES
[2025-03-31 16:16] LABS: UA Manual Slide Review YES
[2025-03-31 16:16] LABS: Alanine Aminotransferase < 5 U/L (0-41); Albumin Level 2.9 g/dL (3.5-5.2); Alkaline Phosphatase 138 U/L (40-130); Aspartate Amino Transferase 7 U/L (0-40); Blood Urea Nitrogen 52 mg/dL (8-23); Calcium 8.8 mg/dL (8.5-10.5); Carbon Dioxide 19 mmol/L (22-29); Chloride 94 mmol/L (98-107); Globulin 4.7 g/dL (1.3-4.6); Glucose 167 mg/dL (65-115); Osmolality Calculated 284 mOsm/kg (285-295); Sodium 128 mmol/L (136-145); Total Protein 7.6 g/dL (6.6-8.7)
[2025-03-31 16:17] LABS: Anion Gap 20.7 (5-19); Potassium 5.7 mmol/L (3.5-5.1)
--- NOTE | 2025-03-31 16:40 | CTR_ITS ---
PROCEDURE INFORMATION: Exam: CT Abdomen And Pelvis Without Contrast Exam date and time: 03/31/2025 4:48 PM Age: 74 years old Clinical indication: Abdominal pain; Flank; Left; Additional info: Flank pain TECHNIQUE: Imaging protocol: Computed tomography of the abdomen and pelvis without contrast. Radiation optimization: All CT scans at this facility use at least one of these dose optimization techniques: automated exposure control; mA and/or kV adjustment per patient size (includes targeted exams where dose is matched to clinical indication); or iterative reconstruction. COMPARISON: CT abdomen pelvis wo con [id number] 12/06/2024 4:58 PM RADIATION DOSE METRICS: Total DLP (mGy-cm): 918.65 FINDINGS: Lungs: Lung bases are clear. No pleural effusion. Pleural spaces: A small left pleural effusion is noted. Liver: Normal. No mass. Gallbladder and biliary ducts: Multiple gallstones are noted in the gallbladder but the gallbladder does not appear inflamed and demonstrates normal wall thickness. Pancreas: Normal. No ductal dilation. Spleen: Normal. No splenomegaly. Adrenal glands: Normal. No mass. Kidneys and ureters: See Urinary bladder finding. Stomach and bowel: Unremarkable. No obstruction. No mucosal thickening. Appendix: The appendix is clearly identified and is unremarkable. Intraperitoneal space: Unremarkable. No free air. No significant fluid collection. Vasculature: Unremarkable. No abdominal aortic aneurysm. Lymph nodes: Unremarkable. No enlarged lymph nodes. Urinary bladder: There is severe distension involving the urinary bladder along with bilateral ureteral dilatation. No ureteral stone noted. Reproductive: The prostate gland is abnormally enlarged. Bones/joints: Old fractures and healing fractures along with metallic hardware can be seen in the left hip. Soft tissues: Unremarkable. CT/CT kidney stone [id number] IMPRESSION: 1. Severe bladder distension with bilateral hydronephrosis that is most likely caused by prostate enlargement and bladder outlet obstruction 2. Small left pleural effusion 3. Healing left pelvic fractures 4. Cholelithiasis
--- NOTE | 2025-03-31 16:43 | USR_ITS ---
PROCEDURE INFORMATION: Exam: US Scrotum Exam date and time: 03/31/2025 4:58 PM Age: 74 years old Clinical indication: Scrotum pain; Additional info: Pain swelling TECHNIQUE: Imaging protocol: Real-time ultrasound of the scrotum and contents with color Doppler and image documentation. COMPARISON: US renal BI* [id number] 02/17/2021 6:13 AM FINDINGS: Right testicle: Normal. No mass. Normal color Doppler and arterial waveforms. No torsion. Left testicle: The left testis contains an area of tubular ectasia. Normal blood flow noted. Epididymides: 6 mm left epididymal cyst also noted. Scrotum/soft tissues: Diffuse subcutaneous edema involves the scrotum. No abscess noted. US/US scrotum [id number] IMPRESSION: 1. Diffuse skin thickening of uncertain etiology 2. Tubular ectasia of the left testis 3. Small left epididymal cyst
--- NOTE | 2025-03-31 17:47 | P.EN_ITS ---
Event Note Event Note: patient
--- NOTE | 2025-03-31 17:47 | W.PM.EVENTAC ---
Event Note Event Note: patient
[2025-03-31] MEDS: insulin regular-human 100 units/1 mL 10 UNIT IVP (17:48)
[2025-03-31] MEDS: calcium chloride 10% Syr 10 mL 1 GM IVP (17:50)
--- NOTE | 2025-03-31 17:51 | ECG_ITS ---
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 Measurements Intervals [place] Rate: 107 P: 0 CT: 0 QRS: 127 QRSD: 80 T: -15 QT: 313 QTc: 419 Interpretive Statements ATRIAL FIBRILLATION WITH RAPID VENTRICULAR RESPONSE POSSIBLE RIGHT VENTRICULAR HYPERTROPHY [SOME/ALL OF: PROMINENT R IN V1, LATE TRANSITION, RAD, MARY ELLEN, SSS] ABNORMAL QRS-T ANGLE [QRS-T AXIS DIFFERENCE > 60] Compared to ECG 12/21/2024 11:34:50 No significant changes Electronically Signed On 03-31-2025 18:00:55 CDT by Sammie Mcgraw M.D. [email or web address]
[2025-03-31 17:56] LABS: Lactic Sepsis W/Reflex 1.9 mmol/L (0.5-2.2)
[2025-03-31] MEDS: sodium bicarbonate 8.4% syr 150 MEQ in dextrose 5% 200 ML 700 MEQ IV (18:22)
--- NOTE | 2025-03-31 23:07 | PC.NURSE ---
Per NOC hospitalist, pt can be admitted to [facility].
[2025-04-01] VITALS (11 sets, daily range): BP systolic 91–113; BP diastolic 56–71; PULSE 74–101; RESP 16–20; TEMP 36.4–36.7; O2SAT 94–100
--- NOTE | 2025-04-01 01:56 | PM.HP ---
Providers/Chief Complaint Admitting Physician: CECILLE SMITH DO Chief Complaint: ABDOMINAL PAIN History of Present Illness Luis Mcintosh is a 74 year old male with medical history significant for CVA, diabetes type 2 with severe obstructive uropathy from enlarged prostate causing bladder outlet obstruction with resultant distention of the bladder. Patient is a resident of residential and was sent to the emergency room by the residential staff because he had been experiencing excruciating pain of the lower abdomen that kept him not been able to sleep. Patient was evaluated here in the emergency room and it was noted with a CT finding of severe bladder outlet obstruction by significant prostate enlargement. The emergency room consulted hospitalist for evaluation for admission. We do not have urology, Dr. An related that he had called [facility] in [place] for the urology Dr. Real who would like to see the patient as an outpatient while we treat the patient multiple medical problem caused by obstructive uropathy with hydronephrosis. This medical problems such as urinary tract infection, overly distended bladder, obstructive uropathy, acute renal failure with a creatinine of 3.1 compared to a 1.4 in December 2024 and this we are all due to bladder outlet obstruction secondary to prostate enlargement. These will all be fixed by Regan catheter placement. Patient was very dry and had received a total of 2 L of IV fluid and drained over a liter from the Regan catheter. It is hopeful that acute renal failure on chronic would have resolved by the next lab work I will continue with gentle hydration at 125 normal saline per hour. UTI will be treated with renal appropriate ciprofloxacin dose. Patient is allergic to penicillin cannot have ceftriaxone Review of Systems Narrative: System review upon 10 organ review were significant for obstructive uropathy with hydronephrosis Medications/Allergies Home Medications ?Medication ?Instructions ?Recorded ?Confirmed ?Last Taken ?Type lisinopril 20 mg tablet 20 mg PO BID 04/04/20 12/06/24 12/05/24 History tamsulosin 0.4 mg capsule 0.4 mg PO BEDTIME 04/04/20 12/06/24 12/04/24 History bisacodyl 10 mg rectal suppository 10 mg UT DAILY PRN Constipation 02/12/22 12/06/24 Unknown History bisacodyl 5 mg tablet,delayed 10 mg PO DAILY PRN Constipation 02/12/22 12/06/24 08/10/23 History release gabapentin 100 mg capsule 100 mg PO BEDTIME 02/12/22 12/06/24 12/05/24 History insulin glargine 100 unit/mL (3 20 unit SUBCUT BEDTIME 02/12/22 12/06/24 12/04/24 History mL) subcutaneous pen (Lantus Solostar U-100 Insulin) metformin 1,000 mg tablet 1,000 mg PO BID 02/12/22 12/06/24 12/05/24 History tramadol 50 mg tablet 50 mg PO Q6H PRN Pain 02/12/22 12/06/24 10/06/24 06:50 History acetaminophen 325 mg tablet 650 mg PO Q6H PRN PAIN OR FEVER 07/08/23 12/06/24 10/23/24 18:40 History apixaban 5 mg tablet (Eliquis) 5 mg PO BID 07/08/23 12/06/24 12/05/24 History atorvastatin 10 mg tablet 10 mg PO BEDTIME 07/08/23 12/06/24 12/05/24 History vit C 50 mg-E 15 unit-zinc cit 4.5 1 tab PO BEDTIME 07/08/23 12/06/24 12/04/24 History mg-lutein 2.5 mg-zeaxan chew tablet ([facility]) cyanocobalamin (vitamin B-12) 500 250 mcg PO DAILY 01/24/24 12/06/24 12/05/24 History mcg tablet insulin aspart U-100 100 unit/mL See Rx Instructions .Route .COMPLEX 01/24/24 12/06/24 12/05/24 History (3 mL) subcutaneous pen (Novolog FlexPen U-100 Insulin aspart) loratadine 10 mg tablet 10 mg PO DAILY 01/24/24 12/06/24 12/05/24 History amlodipine 5 mg tablet 5 mg PO DAILY 11/18/24 12/06/24 12/05/24 History clonidine HCl 0.1 mg tablet 0.1 mg PO TID 11/18/24 12/06/24 12/05/24 History diltiazem HCl 180 mg 180 mg PO DAILY 11/18/24 12/06/24 12/05/24 History capsule,extended release 24 hr dulaglutide 0.75 mg/0.5 mL See Rx Instructions .Route .COMPLEX 11/18/24 12/06/24 11/24/24 History subcutaneous pen injector (Trulicity) empagliflozin 10 mg tablet 10 mg PO DAILY 11/18/24 12/06/24 12/05/24 History (Jardiance) potassium chloride 10 mEq 10 meq PO DAILY 11/18/24 12/06/24 12/05/24 History tablet,extended release sertraline 100 mg tablet 100 mg PO BEDTIME 11/18/24 12/06/24 12/04/24 History ondansetron 4 mg disintegrating 4 mg PO Q6H PRN nausea and 11/24/24 12/06/24 Unknown Rx tablet vomiting #14 tabs furosemide 20 mg tablet (Lasix) 20 mg PO DAILY #30 tabs 12/09/24 Unknown Rx Allergies Allergy/AdvReac Type Severity Reaction Status Date / Time Penicillins Allergy ALGY-Rash Verified 12/21/24 11:05 PFSH Acute PFSH: Medical History Chronic indwelling Regan catheter Atrial fibrillation with rapid ventricular response Peripheral neuropathy CAD (coronary artery disease) Depression Chronic anticoagulation CVA (cerebral vascular accident) 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 CKD (chronic kidney disease) Baseline creatinine 1.9 Poorly controlled type 2 diabetes mellitus Dyslipidemia DVT (deep venous thrombosis) HTN (hypertension) Polycythemia Atrial fibrillation Surgical History S/P ORIF (open reduction internal fixation) fracture No pertinent past surgical history Family History Other CAD (coronary artery disease) Cancer Social History Smoking and tobacco/nicotine status: former use of tobacco/nicotine Quit status (tobacco/nicotine): has quit using Year quit tobacco: 2010 Former quit date comment: Due to stroke Alcohol intake: former Year of sobriety/quit date alcohol: 2010 Former alcohol use details: Never heavy drinker Substance/Drug Use: never Additional social history: Next of kin is his brother Michael Mcintosh who is 69 years old patient wants full CODE STATUS Caregiver/support person: No Household members: none Housing: House 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 HEENT normocephalic/atraumatic neck neck is supple cardiovascular heart rate is regular lungs are pretty much clear abdomen soft nontender nondistended unremarkable extremities are intact no edema has good pulses neurology has no focality lab studies significant for leukocytosis, UTI, acute renal failure, hyperkalemia hyponatremia Urinary Catheter Management: Regan: Cath Placed During This Visit: yes Urinary Catheter Date of Insertion: 03/31/25 Urinary Catheter Time of Insertion: 17:20 Data 03/31/25 15:53 03/31/25 15:53 Micro: Microbiology 03/31/25 16:45 Gram Stain - Final Other Source A&P Assessment and plan 1. CHRISTINE (acute kidney injury): 2. Fracture of left inferior pubic ramus: 3. Closed bilateral acetabular fractures: 4. S/P ORIF (open reduction internal fixation) fracture: 5. Poorly controlled type 2 diabetes mellitus: 6. Hydronephrosis, bilateral: 7. Leukocytosis: 8. Hyponatremia: 9. Hypokalemia: 10. UTI (urinary tract infection): 11. Acute dehydration: 12. Tachycardia: Plan: Bladder outlet obstruction from obstructive uropathy caused by enlarged prostate - Insert Regan catheter - IV hydration with response of much urinary output - Acute renal failure caused by this will be resolved by relieving urinary output - Patient to follow-up at the [facility] at [place] with urology Dr. Real Outpatient once acute renal failure is treated and resolved along with UTI - Hydronephrosis will be decompressed and resolved by Regan catheter in place - Continue to monitor output and electrolytes-serum potassium/sodium/BUN and creatinine - Continue IV hydration continue Regan to gravity UTI - Patient is allergic to penicillin cannot have ceftriaxone - Renally dosed ciprofloxacin used to treat patient UTI - Follow cultures and optimize accordingly Leukocytosis secondary to urinary tract infection - Continue to monitor for a desired resolution of leukocytosis - Treat UTI with ciprofloxacin Acute dehydration - Continue gentle rehydration - Optimize acute renal failure by rehydrating Hyperkalemia - Will resolve with rehydration and Regan in place compressing the bladder and improving renal failure - Continue to treat and optimize Hypochloremia - Significant for contraction alkalosis - Continue IV hydration Hyponatremia - Due to much volume contraction - Rehydration will help SoftER blood pressure - Continue hydration and IV antibiotic for the treatment of UTI Tachyarrhythmia -Keep on telemetry - Rehydrate - Treat infection GI and DVT prophylaxis in place PDMP PDMP Reviewed: Not Reviewed Attestations Medical Necessity Statement*: Patient with multiple medical problem significant for acute renal failure, obstructive uropathy with hydronephrosis bilaterally, UTI, hyperkalemia, hyponatremia will need at least 2 midnights to optimize care patient meets inpatient criteria Coding Level of Care Code 39773 Diagnoses CHRISTINE (acute kidney injury) N17.9 Fracture of left inferior pubic ramus S32.592A Closed bilateral acetabular fractures S32.401A; S32.402A S/P ORIF (open reduction internal fixation) fracture Z98.890; Z87.81 Poorly controlled type 2 diabetes mellitus E11.65 Hydronephrosis, bilateral N13.30 Leukocytosis D72.829 Hyponatremia E87.1 Hypokalemia E87.6 UTI (urinary tract infection) N39.0 Acute dehydration E86.0 Tachycardia R00.0 Time Spent (min) 60
[2025-04-01 05:12] LABS: Hematocrit 30.1 % (37-53); Hemoglobin 9.30 g/dL (11.27-16.99); Mean Corpuscular HGB Conc 30.9 g/dL (30-55); Mean Corpuscular Hemoglobin 27.8 pg (27-33); Mean Corpuscular Volume 89.9 fl (82-101); Nucleated Red Blood Cells % 0 %; Platelet Count 353 10^3/cmm (157-399); Red Blood Count 3.35 10^6/uL (3.85-5.65); White Blood Count 13.42 10^3/uL (3.29-11.43)
[2025-04-01] MEDS: heparin 5,000 unit/mL INJ 1 mL 5000 UNIT SUBCUT ×2 (05:27→17:07)
[2025-04-01 05:32] LABS: Alanine Aminotransferase < 5 U/L (0-41); Albumin Level 2.2 g/dL (3.5-5.2); Alkaline Phosphatase 121 U/L (40-130); Anion Gap 16.9 (5-19); Aspartate Amino Transferase 6 U/L (0-40); Blood Urea Nitrogen 46 mg/dL (8-23); Calcium 8.5 mg/dL (8.5-10.5); Carbon Dioxide 21 mmol/L (22-29); Chloride 99 mmol/L (98-107); Creatinine Clr Calc Pharmacy 25.3843; Globulin 4.0 g/dL (1.3-4.6); Glucose 195 mg/dL (65-115); Magnesium 2.0 mg/dL (1.7-2.3); Osmolality Calculated 291 mOsm/kg (285-295); Potassium 4.9 mmol/L (3.5-5.1); Sodium 132 mmol/L (136-145); Total Protein 6.2 g/dL (6.6-8.7)
[2025-04-01 05:34] LABS: Lactic Sepsis W/Reflex 1.3 mmol/L (0.5-2.2)
[2025-04-01 06:07] LABS: INR 1.37 (0.8-1.2); Prothrombin Time 17.80 SECONDS (12.1-14.9)
--- NOTE | 2025-04-01 08:19 | PC.PHAR ---
Pt is resident at [facility]. Per Tamie WHALEY at [facility]-the following medications have been dc'd: Atorvastatin 10mg, Bisacodyl 10mg suppository and 5 mg tablet, Clonidine hcl 0.1mg, Furosemide 20mg, Gabapentin 100mg, Jardiance 10mg, Loratadine 10mg, Metformin 1.000mg, Potassium Chl 10meq, Sertraline 100mg, Tamsulosin 0.4mg, and Trulicity 0.75mg/0.5ml.
--- NOTE | 2025-04-01 12:07 | PM.PN ---
Subjective Subjective: Seen this morning. No acute events overnight. Patient is altered. Vitals/I&O/Wt Last Vital Signs Temp 97.9 F 04/01/25 10:47 Pulse 89 04/01/25 10:47 Resp 17 04/01/25 10:47 BP 108/62 04/01/25 10:47 Pulse Ox 97 04/01/25 11:27 O2 Del Method Room Air 04/01/25 11:27 FiO2 21 03/31/25 17:27 03/31/25 04/01/25 04/01/25 22:59 06:59 14:59 Intake Total 350 / 350 2100 / 2450 240 / 240 Output Total 1300 / 1300 400 / 1700 575 / 575 Balance -950 / -950 1700 / 750 -335 / -335 Weight last 48 hrs Weight 71.923 kg Weight 71.923 kg Weight 71.923 kg Physical Exam Narrative: General: Altered mental status HEENT: Normocephalic, atraumatic, EOMI, Cardio: Regular rate rhythm, normal S1-S2, Respiratory: Clear to auscultation bilaterally no wheezes no rhonchi. GI: Abdomen soft, nontender, bowel sounds + Extremities: No edema bilateral lower extremities Urinary Catheter Management: Regan: Cath Placed During This Visit: yes Reason for Continuing Indwelling Catheter: Acute Urinary Retention or Obstruction Urinary Catheter Date of Insertion: 03/31/25 Urinary Catheter Time of Insertion: 17:20 Data 04/01/25 04:20 04/01/25 04:20 Micro: Microbiology 03/31/25 16:07 Urine Culture - Preliminary Urine Catheterized Gram Negative Rods 03/31/25 16:45 Gram Stain - Final Other Source A&P Assessment and plan 1. CHRISTINE (acute kidney injury): 2. Fracture of left inferior pubic ramus: 3. Closed bilateral acetabular fractures: 4. S/P ORIF (open reduction internal fixation) fracture: 5. Poorly controlled type 2 diabetes mellitus: 6. Hydronephrosis, bilateral: 7. Leukocytosis: 8. Hyponatremia: 9. Hypokalemia: 10. UTI (urinary tract infection): 11. Acute dehydration: 12. Tachycardia: Plan: Bladder outlet obstruction from obstructive uropathy caused by enlarged prostate - Insert Regan catheter - IV hydration with response of much urinary output - Acute renal failure caused by this will be resolved by relieving urinary output - Patient to follow-up at the [facility] [place] with urology Dr. Real Outpatient once acute renal failure is treated and resolved along with UTI - Hydronephrosis will be decompressed and resolved by Regan catheter in place - Continue to monitor output and electrolytes-serum potassium/sodium/BUN and creatinine - Continue IV hydration continue Regan to gravity UTI - Patient is allergic to penicillin cannot have ceftriaxone - Renally dosed ciprofloxacin used to treat patient UTI - Follow cultures and optimize accordingly Leukocytosis secondary to urinary tract infection - Continue to monitor for a desired resolution of leukocytosis - Treat UTI with ciprofloxacin Acute dehydration - Continue gentle rehydration - Optimize acute renal failure by rehydrating Hyperkalemia - Will resolve with rehydration and Regan in place compressing the bladder and improving renal failure - Continue to treat and optimize Hypochloremia - Significant for contraction alkalosis - Continue IV hydration Hyponatremia - Due to much volume contraction - Rehydration will help SoftER blood pressure - Continue hydration and IV antibiotic for the treatment of UTI Tachyarrhythmia -Keep on telemetry - Rehydrate - Treat infection GI and DVT prophylaxis in place 04/01/2025 Patient's creatinine is trending down 2.7 today. Continue IV hydration Appreciate urology recommendations that were obtained over the phone by ER doctor. I will stop ciprofloxacin and switch to meropenem as I suspect resistant Pseudomonas. Check ammonia, vitamin B12 Hyperkalemia has resolved Continue IV hydration Blood pressure soft however improved. Continue to monitor on telemetry Due to soft blood pressures we will hold diltiazem. Continue on Eliquis 5 twice daily Hold amlodipine Sliding scale as a low-dose intensity Hold Bactrim that was given outpatient. Most likely contributing factor to patient's CHRISTINE. Avoid nephrotoxic agents. PDMP PDMP Reviewed: Not Reviewed Attestations Medical Necessity Statement*: UTI, post renal CHRISTINE Diagnoses CHRISTINE (acute kidney injury) N17.9 Fracture of left inferior pubic ramus S32.592A Closed bilateral acetabular fractures S32.401A; S32.402A S/P ORIF (open reduction internal fixation) fracture Z98.890; Z87.81 Poorly controlled type 2 diabetes mellitus E11.65 Hydronephrosis, bilateral N13.30 Leukocytosis D72.829 Hyponatremia E87.1 Hypokalemia E87.6 UTI (urinary tract infection) N39.0 Acute dehydration E86.0 Tachycardia R00.0
[2025-04-01] MEDS: meropenem 1,000 mg SDV 1000 MG IVP (17:06)
[2025-04-01 17:23] LABS: Ammonia 28 umol/L (16-60)
[2025-04-01 17:32] LABS: Procalcitonin 0.52 ng/mL (0-0.5); Thyroid Stimulating Hormone 1.01 uIU/mL (0.27-4.20); Vitamin B12 916 pg/mL (232-1245)
[2025-04-02] MEDS: meropenem 1,000 mg SDV 1000 MG IVP ×2 (01:24→11:57)
[2025-04-02 02:33] LABS: Neisseria Gonorrhea NOT DETECTED (Negative)
[2025-04-02 03:48] VITALS: BP 105/65; PULSE 90; RESP 17; TEMP 36.4; O2SAT 99
[2025-04-02 05:42] LABS: Hematocrit 29.8 % (37-53); Hemoglobin 9.10 g/dL (11.27-16.99); Mean Corpuscular HGB Conc 30.5 g/dL (30-55); Mean Corpuscular Hemoglobin 27.5 pg (27-33); Mean Corpuscular Volume 90.0 fl (82-101); Nucleated Red Blood Cells % 0 %; Platelet Count 303 10^3/cmm (157-399); Red Blood Count 3.31 10^6/uL (3.85-5.65); White Blood Count 10.25 10^3/uL (3.29-11.43)
[2025-04-02 06:01] LABS: Blood Urea Nitrogen 33 mg/dL (8-23); Calcium 8.0 mg/dL (8.5-10.5); Carbon Dioxide 21 mmol/L (22-29); Chloride 103 mmol/L (98-107); Creatinine Clr Calc Pharmacy 35.8469; Glucose 83 mg/dL (65-115); Magnesium 1.8 mg/dL (1.7-2.3); Osmolality Calculated 286 mOsm/kg (285-295); Sodium 135 mmol/L (136-145)
[2025-04-02 06:02] LABS: Anion Gap 15.5 (5-19); Potassium 4.5 mmol/L (3.5-5.1)
[2025-04-02] MEDS: heparin 5,000 unit/mL INJ 1 mL 5000 UNIT SUBCUT (06:04)
[2025-04-02 07:00] VITALS: BP 104/67; PULSE 92; RESP 17; TEMP 36.7; O2SAT 96
[2025-04-02 11:41] VITALS: BP 126/69; PULSE 97; RESP 17; TEMP 36.8; O2SAT 98
--- NOTE | 2025-04-02 13:34 | P.PN_ITS ---
Subjective 2 Subjective: Seen this morning. Urine culture positive for Pseudomonas resistant to ciprofloxacin, levofloxacin, Bactrim Creatinine is improved to 1.9, improving Vitals/I&O/Wt Last Vital Signs Temp 98.2 F 04/02/25 11:41 Pulse 97 04/02/25 11:41 Resp 17 04/02/25 11:41 BP 126/69 04/02/25 11:41 Pulse Ox 98 04/02/25 11:41 O2 Del Method Room Air 04/02/25 11:41 FiO2 21 04/01/25 19:48 04/01/25 04/02/25 04/02/25 22:59 06:59 14:59 Intake Total 280 / 1710 995.833 / 2705.833 1840 / 1840 Output Total 1100 / 1675 1300 / 2975 1225 / 1225 Balance -820 / 35 -304.167 / -269.167 615 / 615 Weight last 48 hrs Weight 70.789 kg Weight 71.923 kg Weight 71.923 kg Weight 71.923 kg Physical Exam 2 Narrative: General: Altered mental status HEENT: Normocephalic, atraumatic, EOMI, Cardio: Regular rate rhythm, normal S1-S2, Respiratory: Clear to auscultation bilaterally no wheezes no rhonchi. GI: Abdomen soft, nontender, bowel sounds + Extremities: No edema bilateral lower extremities Urinary Catheter Management: Regan: Cath Placed During This Visit: yes Reason for Continuing Indwelling Catheter: Acute Urinary Retention or Obstruction Urinary Catheter Date of Insertion: 03/31/25 Urinary Catheter Time of Insertion: 17:20 Data 04/02/25 04:21 04/02/25 04:21 Micro: Microbiology 03/31/25 16:07 Urine Culture - Final Urine Catheterized Proteus mirabilis 04/01/25 18:34 Blood Culture - Preliminary Blood SPECIMEN COLLECTED 04/01/25 18:32 Blood Culture - Preliminary Blood SPECIMEN COLLECTED A&P Assessment and plan 1. CHRISTINE (acute kidney injury): 2. Fracture of left inferior pubic ramus: 3. Closed bilateral acetabular fractures: 4. S/P ORIF (open reduction internal fixation) fracture: 5. Poorly controlled type 2 diabetes mellitus: 6. Hydronephrosis, bilateral: 7. Leukocytosis: 8. Hyponatremia: 9. Hypokalemia: 10. UTI (urinary tract infection): 11. Acute dehydration: 12. Tachycardia: Plan: Bladder outlet obstruction from obstructive uropathy caused by enlarged prostate - Insert Regan catheter - IV hydration with response of much urinary output - Acute renal failure caused by this will be resolved by relieving urinary output - Patient to follow-up at the [facility] with urology Dr. Real Outpatient once acute renal failure is treated and resolved along with UTI - Hydronephrosis will be decompressed and resolved by Regan catheter in place - Continue to monitor output and electrolytes-serum potassium/sodium/BUN and creatinine - Continue IV hydration continue Regan to gravity UTI - Patient is allergic to penicillin cannot have ceftriaxone - Renally dosed ciprofloxacin used to treat patient UTI - Follow cultures and optimize accordingly Leukocytosis secondary to urinary tract infection - Continue to monitor for a desired resolution of leukocytosis - Treat UTI with ciprofloxacin Acute dehydration - Continue gentle rehydration - Optimize acute renal failure by rehydrating Hyperkalemia - Will resolve with rehydration and Regan in place compressing the bladder and improving renal failure - Continue to treat and optimize Hypochloremia - Significant for contraction alkalosis - Continue IV hydration Hyponatremia - Due to much volume contraction - Rehydration will help SoftER blood pressure - Continue hydration and IV antibiotic for the treatment of UTI Tachyarrhythmia -Keep on telemetry - Rehydrate - Treat infection GI and DVT prophylaxis in place 04/01/2025 Patient's creatinine is trending down 2.7 today. Continue IV hydration Appreciate urology recommendations that were obtained over the phone by ER doctor. I will stop ciprofloxacin and switch to meropenem as I suspect resistant Pseudomonas. Check ammonia, vitamin B12 Hyperkalemia has resolved Continue IV hydration Blood pressure soft however improved. Continue to monitor on telemetry Due to soft blood pressures we will hold diltiazem. Continue on Eliquis 5 twice daily Hold amlodipine Sliding scale as a low-dose intensity Hold Bactrim that was given outpatient. Most likely contributing factor to patient's CHRISTINE. Avoid nephrotoxic agents. 04/02/2025 Creatinine 1.9 Continue metoprolol to tartrate 25 twice daily Hold amlodipine, diltiazem at this time Placed on Eliquis 5 twice daily. It was held on admission. Patient is awake alert talking however intermittently confused. Unclear if this is patient's baseline however nursing staff has called [facility] who indicates this may be patient's baseline. Will continue to monitor at this time. UTI: Pseudomonas resistant to levofloxacin and ciprofloxacin, Bactrim. Will continue patient on meropenem. Patient will be discharged with a Regan as he has bladder outlet obstruction with bilateral hydronephrosis. Follow-up with urology as an outpatient. He will need further urological workup. Once mental status is completely back to baseline we will plan to discharge to nursing facility. PDMP PDMP Reviewed: Not Reviewed Attestations 2 Medical Necessity Statement*: CHRISTINE, UTI. Diagnoses CHRISTINE (acute kidney injury) N17.9 Fracture of left inferior pubic ramus S32.592A Closed bilateral acetabular fractures S32.401A; S32.402A S/P ORIF (open reduction internal fixation) fracture Z98.890; Z87.81 Poorly controlled type 2 diabetes mellitus E11.65 Hydronephrosis, bilateral N13.30 Leukocytosis D72.829 Hyponatremia E87.1 Hypokalemia E87.6 UTI (urinary tract infection) N39.0 Acute dehydration E86.0 Tachycardia R00.0
[2025-04-02 16:26] VITALS: BP 119/74; PULSE 91; RESP 17; TEMP 36.8; O2SAT 98
[2025-04-02 19:52] VITALS: BP 105/64; PULSE 96; RESP 16; TEMP 36.8; O2SAT 97
[2025-04-02 23:32] VITALS: BP 108/60; PULSE 88; RESP 16; TEMP 36.6; O2SAT 95
[2025-04-03] MEDS: meropenem 1,000 mg SDV 1000 MG IVP ×2 (01:32→12:14)
[2025-04-03 04:00] VITALS: BP 119/61; PULSE 108; RESP 17; TEMP 36.9; O2SAT 96
[2025-04-03 04:59] LABS: Hematocrit 31.0 % (37-53); Hemoglobin 9.60 g/dL (11.27-16.99); Mean Corpuscular HGB Conc 31.0 g/dL (30-55); Mean Corpuscular Hemoglobin 28.1 pg (27-33); Mean Corpuscular Volume 90.6 fl (82-101); Nucleated Red Blood Cells % 0 %; Platelet Count 249 10^3/cmm (157-399); Red Blood Count 3.42 10^6/uL (3.85-5.65); White Blood Count 10.78 10^3/uL (3.29-11.43)
[2025-04-03 05:18] LABS: Blood Urea Nitrogen 29 mg/dL (8-23); Calcium 7.7 mg/dL (8.5-10.5); Carbon Dioxide 20 mmol/L (22-29); Chloride 106 mmol/L (98-107); Creatinine Clr Calc Pharmacy 35.8469; Glucose 112 mg/dL (65-115); Magnesium 1.6 mg/dL (1.7-2.3); Osmolality Calculated 289 mOsm/kg (285-295); Sodium 136 mmol/L (136-145)
[2025-04-03 05:22] LABS: Anion Gap 14.8 (5-19); Potassium 4.8 mmol/L (3.5-5.1)
[2025-04-03 07:13] VITALS: BP 117/59; PULSE 92; RESP 17; TEMP 36.6; O2SAT 96
--- NOTE | 2025-04-03 09:56 | PC.CHAP ---
Pastoral Care Encounter/Spiritual Assessment Type of Contact [] Declined shipping receiving manager visit [] Patient/Family/Request visit [] Outpatient visit [] Follow-up visit [] Physician referral [] Code/Alert [] Routine visit [] Staff referral [] Actively dying [x] Patient sleeping [] Family support [] [] Out of room [] Palliative care [] [] Receiving care in room [] Pre-surgical visit [] Trauma [] Long length of stay [] ICU visit [] Other: Relational/Emotional Strength [] Patient feels connected with others/family/visitors/staff [] Distress [] Loneliness/isolation [] Abandonment Spirituality of Patient [] Person of [place] [] Attends Oriental Orthodox of their [place] [] Believes in Prayer [] Reads Bible or Sabianist materials [] There are Spiritual issues to be addressed Purchasing Assistant Interventions [] Prayer [] Active listening [] Non-anxious presence [] Spiritual/emotional support [] Crisis/trauma care [] Spiritual counseling [] Bereavement support [] Provided bereavement packet [] Provided Bible/devotional materials [] Provided toy/stuffed animal, coloring book to patient or family member [] Provided Communion [] Anointing/Spencer [] Salvation [] Completed spiritual assessment [] Other: Impact on Illness or Injury [] Angry [] Fearful [] Anxious [] Often cries [] Exhaustion [] Unable to work [] Unable to attend mormon [] Unable to walk/stand [] Unable to read [] Unable to drive [] Unable to eat/drink [] Unable to sleep [] Unable to be with family [] Patient intubated [] Other: Summary Time spent with patient
--- NOTE | 2025-04-03 10:05 | PC.SOCIAL ---
IMM Update pg 2 of IMM Updated and reviewed w/ patients DPOA. Copy provided and copy dated, initialed and placed in chart.
[2025-04-03 11:12] VITALS: BP 108/69; PULSE 82; RESP 16; TEMP 36.5; O2SAT 95
--- NOTE | 2025-04-03 14:30 | PM.DCS ---
Discharge Providers Date of Admission: 04/01/25 01:28 Date of Discharge: April 03, 2025 Attending Provider at Admission: Hugo Henson MD Attending Provider at Discharge: Britt Jduge MD Diagnoses at Discharge Discharge Diagnosis 1. CHRISTINE (acute kidney injury): 2. Fracture of left inferior pubic ramus: 3. Closed bilateral acetabular fractures: 4. S/P ORIF (open reduction internal fixation) fracture: 5. Poorly controlled type 2 diabetes mellitus: 6. Hydronephrosis, bilateral: 7. Leukocytosis: 8. Hyponatremia: 9. Hypokalemia: 10. UTI (urinary tract infection): 11. Acute dehydration: 12. 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 Also had CHRISTINE. Patient also a UTI and was altered. Mental status was back to baseline he was given IV antibiotics and Freeman catheter was placed. CHRISTINE improved. [facility] was sent [facility] with a Freeman and to follow-up with urology as an outpatient. Patient's amlodipine was held at discharge secondary to softer blood pressures. He was discharged on cefdinir 300 twice daily x 7 days to complete course for his UTI. This was chosen based on his urine culture. Physical Exam Narrative: General: Altered mental status HEENT: Normocephalic, atraumatic, EOMI, Cardio: Regular rate rhythm, normal S1-S2, Respiratory: Clear to auscultation bilaterally no wheezes no rhonchi. GI: Abdomen soft, nontender, bowel sounds + Extremities: No edema bilateral lower extremities Urinary Catheter Management: Freeman: Cath Placed During This Visit: yes Reason for Continuing Indwelling Catheter: Other Urinary Catheter Date of Insertion: 03/31/25 Urinary Catheter Time of Insertion: 17:20 Discharge Data Studies Completed and Pending Completed Studies During Hospitalization Category Date Time Status CT kidney stone 69910 Stat Cat Scan 03/31/25 16:40 Completed US scrotum [id number] Stat Ultrasound 03/31/25 16:43 Completed Pending at discharge Category Date Time Status Blood Culture Stat Lab 04/01/25 18:34 Results Radiology Impressions Abdomen/Pelvis CT 03/31/25 16:40 IMPRESSION: 1. Severe bladder distension with bilateral hydronephrosis that is most likely caused by prostate enlargement and bladder outlet obstruction 2. Small left pleural effusion 3. Healing left pelvic fractures 4. Cholelithiasis Scrotum Ultrasound 03/31/25 16:43 IMPRESSION: 1. Diffuse skin thickening of uncertain etiology 2. Tubular ectasia of the left testis 3. Small left epididymal cyst Laboratory Results WBC 10.78 10^3/uL (3.29-11.43) 04/03/25 04:27 RBC 3.42 10^6/uL (3.85-5.65) L 04/03/25 04:27 Hgb 9.60 g/dL (11.27-16.99) L 04/03/25 04:27 Hct 31.0 % (37-53) L 04/03/25 04:27 MCV 90.6 fl (82-101) 04/03/25 04:27 MCH 28.1 pg (27-33) 04/03/25 04:27 MCHC 31.0 g/dL (30-55) 04/03/25 04:27 RDW 15.0 % (12.1-15.1) 04/03/25 04:27 Plt Count 249 10^3/cmm (157-399) 04/03/25 04:27 MPV 10.4 fL (7.4-10.4) 04/03/25 04:27 Neut % (Auto) 81.9 % 04/03/25 04:27 Lymph % (Auto) 8.1 % 04/03/25 04:27 [place] % (Auto) 5.8 % 04/03/25 04:27 Eos % (Auto) 2.5 % 04/03/25 04:27 Baso % (Auto) 0.6 % 04/03/25 04:27 Neut # (Auto) 8.83 10^3/uL (1.8-7.7) H 04/03/25 04:27 Lymph # (Auto) 0.9 10^3/uL (0.8-4.8) 04/03/25 04:27 [place] # (Auto) 0.6 10^3/uL (0.2-0.9) 04/03/25 04:27 Eos # (Auto) 0.3 10^3/uL (0.0-0.8) 04/03/25 04:27 Baso # (Auto) 0.1 10^3/uL (0.0-0.1) 04/03/25 04:27 Nucleated RBC % (auto) 0 % 04/03/25 04:27 Nucleated RBCs # 0.0 /100WBC 04/03/25 04:27 PT 17.80 SECONDS (12.1-14.9) H 04/01/25 04:20 INR 1.37 (0.8-1.2) H 04/01/25 04:20 Sodium 136 mmol/L (136-145) 04/03/25 04:27 Potassium 4.8 mmol/L (3.5-5.1) 04/03/25 04:27 Chloride 106 mmol/L (98-107) 04/03/25 04:27 Carbon Dioxide 20 mmol/L (22-29) L 04/03/25 04:27 Anion Gap 14.8 (5-19) 04/03/25 04:27 BUN 29 mg/dL (8-23) H 04/03/25 04:27 Creatinine 1.9 mg/dL (0.7-1.2) H 04/03/25 04:27 GFR Calculation Not Reportable 04/03/25 04:27 Glucose 112 mg/dL (65-115) 04/03/25 04:27 POC Glucose 171 mg/dL (70-110) H 04/03/25 11:10 Calculated Osmolality 289 mOsm/kg (285-295) 04/03/25 04:27 Lactic Acid 1.3 mmol/L (0.5-2.2) 04/01/25 04:20 Calcium 7.7 mg/dL (8.5-10.5) L 04/03/25 04:27 Phosphorus 3.8 mg/dL (2.5-4.5) 04/01/25 04:20 Magnesium 1.6 mg/dL (1.7-2.3) L 04/03/25 04:27 Total Bilirubin 0.2 mg/dL (0.15-1.2) 04/01/25 04:20 AST 6 U/L (0-40) 04/01/25 04:20 ALT < 5 U/L (0-41) 04/01/25 04:20 Alkaline Phosphatase 121 U/L (40-130) 04/01/25 04:20 Ammonia 28 umol/L (16-60) 04/01/25 16:55 Total Protein 6.2 g/dL (6.6-8.7) L 04/01/25 04:20 Albumin 2.2 g/dL (3.5-5.2) L 04/01/25 04:20 Globulin 4.0 g/dL (1.3-4.6) 04/01/25 04:20 Vitamin B12 916 pg/mL (232-1245) 04/01/25 04:20 Procalcitonin 0.52 ng/mL (0-0.5) H 04/01/25 04:20 TSH 1.01 uIU/mL (0.27-4.20) 04/01/25 04:20 Urine Color Yellow (Yellow) 03/31/25 16:07 Urine Appearance Turbid (CLEAR) A 03/31/25 16:07 Urine pH (5-7) 03/31/25 16:07 Ur Specific [place] Not Reportable 03/31/25 16:07 Urine Protein Not Reportable 03/31/25 16:07 Urine Glucose (UA) Not Reportable 03/31/25 16:07 Urine Ketones Not Reportable 03/31/25 16:07 Urine Blood Not Reportable 03/31/25 16:07 Urine Nitrate Not Reportable 03/31/25 16:07 Urine Bilirubin Not Reportable 03/31/25 16:07 Urine Urobilinogen Not Reportable 03/31/25 16:07 Ur Leukocyte Esterase Not Reportable 03/31/25 16:07 Urine RBC 0-4 /hpf (0-2) H 03/31/25 16:07 Urine WBC Too numerous to cnt /hpf (0-5) H 03/31/25 16:07 Ur Squamous Epith Cells 0-4 /hpf (0-5) H 03/31/25 16:07 Amorphous Sediment Not Reportable 03/31/25 16:07 Urine Bacteria 2+ /hpf (NONE) H 03/31/25 16:07 C. trachomatis (PCR) Not detected (Negative) 04/02/25 00:55 N. gonorrhoeae (PCR) Not detected (Negative) 04/02/25 00:55 Vitals Last Vital Signs Temp 97.7 F 04/03/25 11:12 Pulse 82 04/03/25 11:12 Resp 16 04/03/25 11:12 BP 108/69 04/03/25 11:12 Pulse Ox 95 04/03/25 11:12 O2 Del Method Room Air 04/03/25 11:12 FiO2 21 04/01/25 19:48 Discharge Plan Discharge Patient Disposition: Xfer [facility] Condition: Stable Prescriptions: New metoprolol tartrate 25 mg Tablet 50 mg PO BID@0900,2100 Qty: 90 0RF cefdinir 300 mg capsule 300 mg PO BID 7 Days Qty: 14 0RF Continued silver sulfadiazine 1 % cream See Rx Instructions .ROUTE .COMPLEX Rx Instructions: Apply topically every shift. Cleanse with Normal Saline and gauze, apply cream to buttock and cover with foam dressing and secure in place with tape. nystatin 100,000 unit/gram cream See Rx Instructions .ROUTE .COMPLEX Rx Instructions: Apply topically every shift. Cloeanse ximena area and buttocks with Normal Saline and gauze, pat dry and apply Nystatin. tramadol 50 mg tablet 50 mg PO Q6H PRN (Reason: Pain) acetaminophen 325 mg Tablet 650 mg PO Q6H PRN (Reason: PAIN OR FEVER) Eliquis 5 mg tablet 5 mg PO BID [email or web address] 50 mg-15 unit- 4.5 mg-2.5 mg Tablet,Chewable 1 tab PO BEDTIME cyanocobalamin (vitamin B-12) 500 mcg Tablet 250 mcg PO DAILY insulin aspart U-100 [Novolog FlexPen U-100 Insulin] 100 unit/mL (3 mL) insulin pen See Rx Instructions .ROUTE .COMPLEX Rx Instructions: INJECT BEFORE MEALS AND AT BEDTIME PER SLIDING SCALE: BS 150-200= 3 UNITS, 201-250= 5 UNITS, 251-300= 7 UNITS, 301-350= 9 UNITS, 351-400= 11 UNITS. CALL PCP IF BS <60 AMD >400 IF SYMPTOMATIC X 3 READINGS. ondansetron 4 mg tablet,disintegrating 4 mg PO Q6H PRN (Reason: nausea and vomiting) Qty: 14 0RF Changed lisinopril 5 mg tablet 2.5 mg PO DAILY Qty: 30 0RF Held amlodipine 5 mg tablet 5 mg PO DAILY Hold Instructions: hold till seen by pcp Discontinued sulfamethoxazole-trimethoprim 800-160 mg tablet 1 tab PO BID insulin glargine [Lantus Solostar U-100 Insulin] 100 unit/mL (3 mL) insulin pen 20 unit SUBCUT BEDTIME diltiazem HCl 180 mg capsule,extended release 24hr 180 mg PO DAILY Discharge Order = DC NOW: Discharge Order (Routine); Ordered 04/03/25 Ordered By: Britt Judge Referrals: [facility] [Outside] Ki Castillo [Referring, Urology] - 1-3 days Referral Note: We have notified your physician's clinic of the need for a follow-up appointment to be scheduled. If you have not heard from them within the next 2 business days, please call them directly. Discharge Diet: Cardiac Discharge Activity: As per PT/OT instructions Patient Instructions: Opioid Safety, Patient Portal & Robin Instructions Activity Restrictions/Additional Instructions: Discharge with freeman and follow up with urology. Discharge Attestations Time Spent in Discharge Care*: less than 30 min Status at Discharge: Cognitive status at discharge: cognitively intact, Behavioral status at discharge: cooperative, Quality Metrics Clinical Quality Measures [ No reported AMI, CVA or VTE this stay] Coding Level of Care Code Acute Code for Chg Fwd Diagnoses CHRISTINE (acute kidney injury) N17.9 Fracture of left inferior pubic ramus S32.592A Closed bilateral acetabular fractures S32.401A; S32.402A S/P ORIF (open reduction internal fixation) fracture Z98.890; Z87.81 Poorly controlled type 2 diabetes mellitus E11.65 Hydronephrosis, bilateral N13.30 Leukocytosis D72.829 Hyponatremia E87.1 Hypokalemia E87.6 UTI (urinary tract infection) N39.0 Acute dehydration E86.0 Tachycardia R00.0
[2025-04-03 15:47] VITALS: BP 108/69; PULSE 82; RESP 16; TEMP 36.5; O2SAT 95
[2025-04-03 16:00] VITALS: BP 121/83; PULSE 98; RESP 15; TEMP 36.7; O2SAT 100
== END 2025-04-03 18:49 | disposition intermediate care facility (04) | DRG 690 ==
LOC: ER 17:31 → ER IP 18:10 → MEDSURG 04-01 02:53 → ER IP 04-01 10:03 → MEDSURG 04-01 10:03
PROVIDERS: Family Medicine; Internal Medicine; Admitting Provider Student in an Organized Health Care Education/Training Program; Emergency Provider Student in an Organized Health Care Education/Training Program; Visit Provider Internal Medicine
DX: N13.6 Pyonephrosis (principal); E87.1 Hypo-osmolality and hyponatremia; Z16.23 Resistance to quinolones and fluoroquinolones; N13.8 Other obstructive and reflux uropathy; N17.9 Acute kidney failure, unspecified; E11.65 Type 2 diabetes mellitus with hyperglycemia; E11.42 Type 2 diabetes mellitus with diabetic polyneuropathy; E11.22 Type 2 diabetes mellitus with diabetic chronic kidney disease; I12.9 Hypertensive chronic kidney disease with stage 1 through stage 4 chronic kidney disease, or unspecified chronic kidney disease; N18.9 Chronic kidney disease, unspecified; Z79.85 Long-term (current) use of injectable non-insulin antidiabetic drugs; Z79.4 Long term (current) use of insulin; Z79.84 Long term (current) use of oral hypoglycemic drugs; B96.5 Pseudomonas (aeruginosa) (mallei) (pseudomallei) as the cause of diseases classified elsewhere; E86.0 Dehydration; E87.5 Hyperkalemia; N40.1 Benign prostatic hyperplasia with lower urinary tract symptoms; E87.8 Other disorders of electrolyte and fluid balance, not elsewhere classified; I25.10 Atherosclerotic heart disease of native coronary artery without angina pectoris; F32.A Depression, unspecified; I48.91 Unspecified atrial fibrillation; E78.5 Hyperlipidemia, unspecified; Z86.73 Personal history of transient ischemic attack (TIA), and cerebral infarction without residual deficits; Z88.0 Allergy status to penicillin; Z86.718 Personal history of other venous thrombosis and embolism; Z79.01 Long term (current) use of anticoagulants; Z87.891 Personal history of nicotine dependence
CPT/HCPCS: 36415; 36416; 51702; 74176; 76870; 80048; 80053; 81001; 82140; 82607; 82962; 83605; 83735; 84100; 84145; 84443; 85025; 85610; 87040; 87070; 87075; 87077; 87086; 87186; 87205; 87491; 87591; 93005; 94640; 94660; 94664; 96365; 96372; 96375; 97161; 97167; 99285; J0744; J1644; J1815; J2185; J3490; J7030; J7060; J7611; J9999

== ENCOUNTER 2025-04-22 19:51 | Emergency (ER) | payer MEDICARE, MEDICAID, SELFPAY ==
[2025-04-22] VITALS (14 sets, daily range): BP systolic 95–167; BP diastolic 70–121; PULSE 124–180; RESP 28–94; TEMP 39.7; O2SAT 96–100; BMI 21.7
--- OUTSIDE RECORDS SUMMARY | 2025-04-22 19:56 | XMS_ITS | Continuity of Care Document ---
Author Organization [facility] Address [address] [place] [address] Care Team Providers Care Film Masker Name Role Phone Dr. Philippe Denise DO Attending Physician [phone] Medications Medication Frequency Instructions Diagnosis Start Date End Date Last Administered acetaminophen 325 mg tablet Every 6 Hours - PRN 2 tabs (650 mg), oral, Every 6 Hours - PRN, For pain/fever 04/03/20 cyanocobalamin (vitamin B-12) 250 mcg tablet Once A Day 1 tab, oral, Once A Day 04/08/2004/18/2025 07:22 AM Eliquis (apixaban) 5 mg tablet Twice A Day 1 tab, oral, Twice A Day 04/03/2004/18/2025 07:22 AM I-Celine (vit a,c and c-alissa-yanjckxc) 300 mcg-200 mg-27 mg-2 mg tablet Once A Day 1 tab, oral, Once A Day, TI for ocuvite 04/06/20 25 04/18/2025 07:23 AM insulin aspart U-100 100 unit/mL (3 mL) insulin pen Before Meals and At Bedtime Per Sliding Scale, subcutaneous, Before Meals and At Bedtime, If Blood Sugar is less than 60, call MD.If Blood Sugar is 201 to 250, give 2 Units.If Blood Sugar is 251 to 300, give 4 Units.If Blood Sugar is 301 to 350, give 6 Units.If Blood Sugar is 351 to 400, give 8 Units.If Blood Sugar is greater than 400, call MD. 04/03/2004/18/2025 03:57 PM metoprolol tartrate 50 mg tablet Twice A Day 1 tab, oral, Twice A Day 04/03/2004/18/2025 07:23 AM nystatin 100,000 unit/gram cream Every Shift 1 arianna, topical, Every Shift, Apply to ximena and buttocks area. 04/03/2004/18/2025 10:10 AM ondansetron HCl 4 mg tablet Every 6 Hours - PRN 1 tab, oral, Every 6 Hours - PRN, For nausea/vomiting , TI for ODT 04/03/20 silver sulfadiazine 1 % cream Every Shift 1 arianna, topical, Every Shift 04/03/2004/18/2025 10:11 AM tramadol 50 mg tablet Every 6 Hours - PRN 1 tab, oral, Every 6 Hours - PRN, For pain, exempt R52 04/03/2004/17/2025 12:29 PM acetaminophen 325 mg tablet Every 6 Hours - PRN 2 tabs (650mg), oral, Every 6 Hours - PRN, for pain / fever 12/10/1903/12/2025 12:19 PM amlodipine 5 mg tablet Once A Day 1 tab, oral, Once A Day 12/10/1903/31/2025 08:39 AM Bactrim DS (sulfamethoxazole- trimethoprim) 800-160 mg tablet Twice A Day 1, oral, Twice A Day, 1 tab BID x7 days for infection 03/27/2003/31/2025 08:39 AM cefdinir 300 mg capsule Twice A Day 1 cap, oral, Twice A Day, For 7 days 04/03/2004/10/2025 07:06 PM cyanocobalamin (vitamin B-12) 500 mcg tablet Once A Day 0.5 tab (250 mcg), oral, Once A Day 12/12/19 025 03/24/2025 08:06 AM cyanocobalamin (vitamin B-12) 250 mcg tablet Once A Day 1 tab, oral, Once A Day 03/24/20 03/31/2025 08:39 AM cyanocobalamin (vitamin B-12) 250 mcg tablet Once A Day 1 tab, oral, Once A Day 04/03/2004/06/2025 08:11 AM cyanocobalamin (vitamin B-12) 500 mcg tablet Once A Day 0.5 tab (250 mcg), oral, Once A Day 04/06/2004/08/2025 06:53 AM diltiazem HCl 180 mg capsule,extended release 24 hr Once A Day 1 cap, oral, Once A Day 12/10/1903/31/2025 08:39 AM Eliquis (apixaban) 2.5 mg tablet Twice A Day 1, oral, Twice A Day 12/25/1903/31/2025 08:39 AM [facility] Vitamin-Mineral (vit c,b-lb-udyvu-lutei n-zeaxan) 250-90-10-1 mg capsule Once A Day 1 cap, oral, Once A Day, TI for ocuvite 04/03/2004/06/2025 08:11 AM I-Celine (vit a,c and o-ycmwdk-bmppurfr) 300 mcg-200 mg-27 mg-2 mg tablet Once A Day 1 tab, oral, Once A Day, TI for ocuvite 12/10/1903/31/2025 08:39 AM insulin aspart U-100 100 unit/mL (3 mL) insulin pen Before Meals and At Bedtime Per Sliding Scale, subcutaneous, Before Meals and At Bedtime, If Blood Sugar is less than 60, call MD.If Blood Sugar is 150 to 200, give 3 Units.If Blood Sugar is 201 to 250, give 5 Units.If Blood Sugar is 251 to 300, give 7 Units.If Blood Sugar is 301 to 350, give 9 Units.If Blood Sugar is 351 to 400, give 11 Units.If Blood Sugar is greater than 400, call ., BS less than 60 or greater than 400 and symptomatic, call PCP 12/10/19 025 03/31/2025 11:23 AM insulin glargine-yfgn 100 unit/mL (3 mL) insulin pen At Bedtime 20 units, subcutaneous, At Bedtime 12/10/1903/30/2025 06:37 PM levofloxacin 500 mg tablet Once A Day 1, oral, Once A Day, 1 tab daily x3 days for urinary infection 03/23/2003/25/2025 06:20 PM levofloxacin 500 mg tablet Once A Day 1, oral, Once A Day, take 1 tab by mouth daily x3 days for UTI 03/26/2003/26/2025 07:24 PM lisinopril 5 mg tablet Once A Day 1, oral, Once A Day 12/25/1903/31/2025 08:39 AM lisinopril 2.5 mg tablet Once A Day 1 tab, oral, Once A Day 04/03/2004/09/2025 06:39 AM nystatin 100,000 unit/gram cream Every Shift 1 application, topical, Every Shift, Cleanse ximena area and buttocks with NS and gauze, pat dry, and apply nystatin cream every Shift. 02/01/2003/31/2025 08:39 AM ondansetron HCl 4 mg tablet Every 6 Hours - PRN 1 tab, oral, Every 6 Hours - PRN, for nausea / vomiting 12/10/1903/25/2025 12:29 PM Silvadene (silver sulfadiazine) 1 % cream Every Shift as directed, topical, Every Shift, Sacrum: Cleanse with ns and gauze, apply cream to buttock and cover with foam dressing and secure in place with tape q shift 12/19/1903/31/2025 08:39 AM tramadol 50 mg tablet Every 6 Hours - PRN 1 tab, oral, Every 6 Hours - PRN, for pain, exempt R52 12/10/19 025 03/29/2025 07:48 PM Problems Code Type Problem ICD Code Effective Date Status ICD-10 Chronic atrial fibrillation, unspecified I48.20 06/04/2024 Active ICD-10 Unspecified atrial fibrillation I48.91 03/081 Active 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 Z79.0 1 04/05/2021 Active ICD-10 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 04/05/2021 Active ICD-10 Hypertensive heart a nd chronic kidney disease with heart failure and stage 1 through stage 4 chronic kidney disease, or unspecified chronic kidney disease I13.0 07/02/2024 Activ e ICD-10 Personal history of nicotine dependence Z87.891 04/05/2021 Active ICD-10 Heart failure, unspecified I50.9 Active ICD-10 Dysphagia, oropharyngeal phase R13.12 01/30 Active ICD-10 Disorientation, unspecified R41.0 12/25/19 25 Active ICD-10 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 I69.354 04/05/2021 Active ICD-10 Type 2 diabetes mellitus with hyperglycemia E11 .65 12/09/2024 Active ICD-10 Type 2 diabetes ray itus with diabetic neuropathy, unspecified E11.40 04/05/2021 Active ICD-10 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 04/05/2021 Active 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 Z79.4 0 04/05/2021 Active ICD-10 Chronic kidney disease, stage 3b N18.32 Active ICD-10 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 04/09/2025 Active ICD-10 Urinary tract infection, site not specified N39 .0 04/03/2025 Active ICD-10 Pseudomonas (aerugin candida) (mallei) (pseudomallei) as the cause of diseases classified elsewhere B96.5 04/03/2025 Active ICD-10 Secondary polycythemia D75.1 04/05/2021 Ac tive ICD-10 Anemia in chronic kidney disease D63.1 Active ICD-10 Mixed hyperlipidemia E78.2 05/08/2022 Acti ve ICD-10 Deficiency of other specified B group vitamins E53.8 09/06/2023 Active ICD-10 Benign prostatic hyp erplasia without lower urinary tract symptoms N40.0 04/05/2021 Active ICD-10 Retention of urine, unspecified R33.9 11/05 Active ICD-10 History of falling Z91.81 05/10/2021 Active ICD-10 Patient's other nonc ompliance with medication regimen for other reason Z91.148 02/07/2023 Acti ve Current Allergies and Intolerances Category Substance Type Reaction Severity Begin Date Status Drug allergy Penicillins Allergy 01/26/2021 Acti ve Vital Signs Height: 68.0 in Date / Time Temperature Pulse (per minute) Respirations (per minute) Systolic BP (mmHg) Diastolic BP (mmHg) O2 Saturation (%) Weight BMI 2024 10:12 AM 97.6 F 83 14 147 86 98.0 2024 12:09 AM 98.4 F 77 17 142 81 97.0 2024 08:09 AM 97.3 F 87 18 158 85 98.0 2024 06:37 PM 97.8 F 92 16 165 91 98.0 2024 05:47 PM 98.2 F 85 15 142 88 99.0 2024 09:53 PM 97.4 F 91 15 136 79 97.0 2024 03:17 PM 145.6 lbs 22.1 4 2024 09:27 AM 97.6 F 85 16 139 88 99.0 2024 07:50 PM 98.1 F 97 15 142 78 97.0 2024 08:53 AM 97.9 F 86 16 155 87 96.0 2024 08:52 PM 97.4 F 98 16 135 80 95.0 2024 03:56 PM 156.4 lbs 23.7 8 2024 03:03 PM 159.0 lbs 24.1 7 2024 04:46 PM 155.0 lbs 23.5 7 2024 04:13 PM 155.4 lbs 23.6 3 2024 08:06 AM 155.6 lbs 23.6 6 2024 12:05 PM 157.2 lbs 23.9 2024 05:00 PM 159.7 lbs 24.2 8 2024 03:38 PM 162.0 lbs 24.6 3 2024 03:00 PM 157.4 lbs 23.9 3 2024 09:11 AM 157.9 lbs 24.0 1 2024 09:30 AM 156.8 lbs 23.8 4 2024 05:50 PM 151.0 lbs 22.9 6 Advance Directives Directive Note Full Code Insurance Providers Payer Policy type Group Name Group number Policy ID Address Ph one Medicare Part A Medicare Part A [id number] Phone: Fax: [employer] MAO - [employer] Like Medicare Part A [id number] Phone: Fax: Outlier - MC Adv Part B - [employer] Like Medicare Part B [id number] [address] [place] [address] Phone: Fax: Outlier - Vaccines - [employer] Like Medicare Part B [id number] 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 Date Status Dose Series Complete COVID-19 Vaccine Osmopure 24-25 06/04/2024 Completed Unknown COVID-19 Vaccine comirnaty 12/06/2023 Completed 4 COVID-19 Vaccine Pizer Comirnaty 08/07/2023 Completed Unknow n Yes COVID-19 Vaccine Moderna 06/22/2022 Completed Booster Bivalent COVID-19 Vaccine Moderna 06/24/2021 Completed Booster Ye s COVID-19 Vaccine Moderna 10/19/2020 Completed 2 Ye s COVID-19 Vaccine Moderna 09/21/2020 Completed 1 No COVID-19 Vaccine 05/26/2022 Refused Influenza Vaccine alfuria 05/15/2024 Completed Influenza Vaccine Alfuria Quadrivalent 05/30/2023 Completed Influenza Vaccine Afluria 05/09/2022 Completed Influenza Vaccine Afluria Quad 05/12/2021 Completed Pneumococcal Vaccine 05/09/2022 Completed Pneumococcal Vaccine Pneumovax 05/18/2021 Completed 1 RSV Vaccine Pfizer 05/31/2023 Completed Procedures Not available for this record Results Name Date Time Positive/Negative Value Unit Range Blood Sugar 04/18/2025 03:57 PM 213.0 mg/dL Blood Sugar 04/18/2025 03:56 PM 213.0 mg/dL Blood Sugar 04/18/2025 11:04 AM 234.0 mg/dL Blood Sugar 04/18/2025 07:30 AM 162.0 mg/dL Blood Sugar 04/18/2025 05:19 AM 176.0 mg/dL Blood Sugar 04/17/2025 11:21 PM 206.0 mg/dL Blood Sugar 04/17/2025 03:26 PM 225.0 mg/dL Blood Sugar 04/17/2025 10:51 AM 328.0 mg/dL Blood Sugar 04/17/2025 06:18 AM 192.0 mg/dL Blood Sugar 04/16/2025 06:41 PM 359.0 mg/dL Blood Sugar 04/16/2025 05:46 PM 237.0 mg/dL Blood Sugar 04/16/2025 01:15 PM 199.0 mg/dL Blood Sugar 04/16/2025 07:09 AM 202.0 mg/dL Blood Sugar 04/15/2025 07:50 PM 365.0 mg/dL Blood Sugar 04/15/2025 03:22 PM 154.0 mg/dL Blood Sugar 04/15/2025 11:02 AM 387.0 mg/dL Blood Sugar 04/15/2025 06:39 AM 213.0 mg/dL Blood Sugar 04/14/2025 07:57 PM 311.0 mg/dL Blood Sugar 04/14/2025 03:50 PM 195.0 mg/dL Blood Sugar 04/14/2025 11:08 AM 329.0 mg/dL Blood Sugar 04/14/2025 06:25 AM 168.0 mg/dL Blood Sugar 04/13/2025 06:49 PM 277.0 mg/dL Blood Sugar 04/13/2025 04:11 PM 144.0 mg/dL Blood Sugar 04/13/2025 11:07 AM 213.0 mg/dL Blood Sugar 04/13/2025 06:29 AM 148.0 mg/dL Blood Sugar 04/13/2025 05:36 AM 160.0 mg/dL Blood Sugar 04/13/2025 12:29 AM 405.0 mg/dL Blood Sugar 04/12/2025 04:16 PM 249.0 mg/dL Blood Sugar 04/12/2025 04:11 PM 248.0 mg/dL Blood Sugar 04/12/2025 11:08 AM 311.0 mg/dL Blood Sugar 04/12/2025 11:07 AM 311.0 mg/dL Blood Sugar 04/12/2025 07:09 AM 160.0 mg/dL Blood Sugar 04/12/2025 05:23 AM 173.0 mg/dL Blood Sugar 04/11/2025 11:40 PM 301.0 mg/dL Blood Sugar 04/11/2025 04:12 PM 284.0 mg/dL Blood Sugar 04/11/2025 10:14 AM 193.0 mg/dL Blood Sugar 04/11/2025 05:16 AM 170.0 mg/dL Blood Sugar 04/11/2025 05:01 AM 178.0 mg/dL Blood Sugar 04/10/2025 09:40 PM 213.0 mg/dL Blood Sugar 04/10/2025 04:03 PM 270.0 mg/dL Blood Sugar 04/10/2025 11:33 AM 173.0 mg/dL Blood Sugar 04/10/2025 07:01 AM 220.0 mg/dL Blood Sugar 04/10/2025 05:28 AM 264.0 mg/dL Blood Sugar 04/09/2025 09:43 PM 318.0 mg/dL Blood Sugar 04/09/2025 04:04 PM 216.0 mg/dL Blood Sugar 04/09/2025 04:04 PM 216.0 mg/dL Blood Sugar 04/09/2025 11:27 AM 222.0 mg/dL Blood Sugar 04/09/2025 11:26 AM 222.0 mg/dL Blood Sugar 04/09/2025 06:42 AM 213.0 mg/dL Blood Sugar 04/09/2025 06:39 AM 213.0 mg/dL Blood Sugar 04/08/2025 07:44 PM 336.0 mg/dL Blood Sugar 04/08/2025 03:56 PM 230.0 mg/dL Blood Sugar 04/08/2025 11:33 AM 346.0 mg/dL Blood Sugar 04/08/2025 06:45 AM 194.0 mg/dL Blood Sugar 04/07/2025 07:47 PM 284.0 mg/dL Blood Sugar 04/07/2025 03:30 PM 231.0 mg/dL Blood Sugar 04/07/2025 10:42 AM 236.0 mg/dL Blood Sugar 04/07/2025 05:50 AM 195.0 mg/dL Blood Sugar 04/06/2025 09:48 PM 327.0 mg/dL Blood Sugar 04/06/2025 03:34 PM 232.0 mg/dL Blood Sugar 04/06/2025 10:46 AM 144.0 mg/dL Blood Sugar 04/06/2025 05:49 AM 86.0 mg/dL Blood Sugar 04/05/2025 11:47 PM 298.0 mg/dL Blood Sugar 04/05/2025 04:27 PM 265.0 mg/dL Blood Sugar 04/05/2025 10:57 AM 175.0 mg/dL Blood Sugar 04/05/2025 06:55 AM 109.0 mg/dL Blood Sugar 04/04/2025 09:29 PM 328.0 mg/dL Blood Sugar 04/04/2025 03:49 PM 309.0 mg/dL Blood Sugar 04/04/2025 10:39 AM 267.0 mg/dL Blood Sugar 04/04/2025 06:54 AM 142.0 mg/dL Blood Sugar 04/04/2025 05:05 AM 127.0 mg/dL Blood Sugar 04/03/2025 11:44 PM 154.0 mg/dL Blood Sugar 03/31/2025 11:22 AM 262.0 mg/dL Blood Sugar 03/31/2025 06:43 AM 168.0 mg/dL Blood Sugar 03/30/2025 06:33 PM 299.0 mg/dL Blood Sugar 03/30/2025 04:25 PM 375.0 mg/dL Blood Sugar 03/30/2025 10:54 AM 219.0 mg/dL Blood Sugar 03/30/2025 07:07 AM 197.0 mg/dL Blood Sugar 03/30/2025 05:09 AM 292.0 mg/dL Blood Sugar 03/29/2025 07:32 PM 267.0 mg/dL Blood Sugar 03/29/2025 04:06 PM 212.0 mg/dL Blood Sugar 03/29/2025 11:48 AM 266.0 mg/dL Blood Sugar 03/29/2025 11:47 AM 266.0 mg/dL Blood Sugar 03/29/2025 11:37 AM 266.0 mg/dL Blood Sugar 03/29/2025 06:37 AM 168.0 mg/dL Blood Sugar 03/29/2025 05:03 AM 231.0 mg/dL Blood Sugar 03/29/2025 12:06 AM 223.0 mg/dL Blood Sugar 03/28/2025 04:55 PM 230.0 mg/dL Blood Sugar 03/28/2025 04:53 PM 230.0 mg/dL Blood Sugar 03/28/2025 11:00 AM 336.0 mg/dL Blood Sugar 03/28/2025 10:59 AM 336.0 mg/dL Blood Sugar 03/28/2025 06:52 AM 204.0 mg/dL Blood Sugar 03/28/2025 05:17 AM 199.0 mg/dL Blood Sugar 03/27/2025 10:09 PM 201.0 mg/dL Blood Sugar 03/27/2025 03:51 PM 176.0 mg/dL Blood Sugar 03/27/2025 11:07 AM 414.0 mg/dL Blood Sugar 03/27/2025 05:53 AM 190.0 mg/dL Blood Sugar 03/26/2025 10:41 PM 290.0 mg/dL Blood Sugar 03/26/2025 04:52 PM 287.0 mg/dL Blood Sugar 03/26/2025 11:14 AM 259.0 mg/dL Blood Sugar 03/26/2025 07:50 AM 174.0 mg/dL Blood Sugar 03/25/2025 06:25 PM 245.0 mg/dL Blood Sugar 03/25/2025 03:55 PM 142.0 mg/dL Blood Sugar 03/25/2025 11:22 AM 210.0 mg/dL Blood Sugar 03/25/2025 06:45 AM 89.0 mg/dL Blood Sugar 03/24/2025 08:05 PM 269.0 mg/dL Blood Sugar 03/24/2025 04:46 PM 214.0 mg/dL Blood Sugar 03/24/2025 11:58 AM 389.0 mg/dL Blood Sugar 03/24/2025 11:58 AM 389.0 mg/dL Blood Sugar 03/24/2025 08:02 AM 133.0 mg/dL Blood Sugar 03/23/2025 06:39 PM 241.0 mg/dL Blood Sugar 03/23/2025 04:00 PM 263.0 mg/dL Blood Sugar 03/23/2025 11:18 AM 241.0 mg/dL Blood Sugar 03/23/2025 07:03 AM 109.0 mg/dL Blood Sugar 03/23/2025 05:36 AM 117.0 mg/dL Blood Sugar 03/22/2025 07:25 PM 225.0 mg/dL Blood Sugar 03/22/2025 03:58 PM 269.0 mg/dL Blood Sugar 03/22/2025 11:31 AM 317.0 mg/dL Blood Sugar 03/22/2025 05:21 AM 191.0 mg/dL Blood Sugar 03/21/2025 10:22 PM 254.0 mg/dL Blood Sugar 03/21/2025 04:11 PM 269.0 mg/dL Blood Sugar 03/21/2025 11:14 AM 259.0 mg/dL Blood Sugar 03/21/2025 06:42 AM 237.0 mg/dL Blood Sugar 03/21/2025 05:02 AM 274.0 mg/dL Blood Sugar 03/21/2025 01:56 AM 200.0 mg/dL Blood Sugar 03/20/2025 03:39 PM 330.0 mg/dL Blood Sugar 03/20/2025 10:41 AM 396.0 mg/dL Blood Sugar 03/20/2025 06:33 AM 86.0 mg/dL Blood Sugar 03/19/2025 06:31 PM 166.0 mg/dL Blood Sugar 03/19/2025 04:27 PM 198.0 mg/dL Blood Sugar 03/19/2025 11:12 AM 205.0 mg/dL Blood Sugar 03/19/2025 06:47 AM 139.0 mg/dL Blood Sugar 03/18/2025 08:01 PM 307.0 mg/dL Blood Sugar 03/18/2025 03:24 PM 231.0 mg/dL Blood Sugar 03/18/2025 10:25 AM 302.0 mg/dL Blood Sugar 03/18/2025 06:45 AM 112.0 mg/dL Blood Sugar 03/17/2025 06:36 PM 244.0 mg/dL Blood Sugar 03/17/2025 03:56 PM 277.0 mg/dL Blood Sugar 03/17/2025 10:54 AM 344.0 mg/dL Blood Sugar 03/17/2025 06:42 AM 124.0 mg/dL Blood Sugar 03/16/2025 06:45 PM 230.0 mg/dL Blood Sugar 03/16/2025 04:13 PM 195.0 mg/dL Blood Sugar 03/16/2025 06:23 AM 97.0 mg/dL Blood Sugar 03/16/2025 05:24 AM 104.0 mg/dL Blood Sugar 03/15/2025 09:04 PM 348.0 mg/dL Blood Sugar 03/15/2025 03:53 PM 244.0 mg/dL Blood Sugar 03/15/2025 11:18 AM 204.0 mg/dL Blood Sugar 03/15/2025 06:51 AM 256.0 mg/dL Blood Sugar 03/15/2025 05:26 AM 256.0 mg/dL Blood Sugar 03/14/2025 09:10 PM 275.0 mg/dL Blood Sugar 03/14/2025 04:24 PM 355.0 mg/dL Blood Sugar 03/14/2025 11:33 AM 342.0 mg/dL Blood Sugar 03/14/2025 06:43 AM 232.0 mg/dL Blood Sugar 03/14/2025 05:45 AM 228.0 mg/dL Blood Sugar 03/13/2025 10:27 PM 210.0 mg/dL Blood Sugar 03/13/2025 04:13 PM 314.0 mg/dL Blood Sugar 03/13/2025 12:04 PM 268.0 mg/dL Blood Sugar 03/13/2025 07:06 AM 196.0 mg/dL Blood Sugar 03/13/2025 05:33 AM 213.0 mg/dL Blood Sugar 03/12/2025 09:53 PM 363.0 mg/dL Blood Sugar 03/12/2025 03:47 PM 321.0 mg/dL Blood Sugar 03/12/2025 10:40 AM 284.0 mg/dL Blood Sugar 03/12/2025 06:17 AM 237.0 mg/dL Blood Sugar 03/11/2025 08:10 PM 206.0 mg/dL Blood Sugar 03/11/2025 03:59 PM 226.0 mg/dL Blood Sugar 03/11/2025 11:34 AM 206.0 mg/dL Blood Sugar 03/11/2025 06:25 AM 200.0 mg/dL Blood Sugar 03/10/2025 07:39 PM 308.0 mg/dL Blood Sugar 03/10/2025 04:53 PM 144.0 mg/dL Blood Sugar 03/10/2025 12:53 PM 165.0 mg/dL Blood Sugar 03/10/2025 08:23 AM 199.0 mg/dL Blood Sugar 03/09/2025 08:16 PM 362.0 mg/dL Blood Sugar 03/09/2025 06:40 PM 362.0 mg/dL Blood Sugar 03/09/2025 01:02 PM 145.0 mg/dL Blood Sugar 03/09/2025 07:42 AM 188.0 mg/dL Blood Sugar 03/09/2025 05:09 AM 192.0 mg/dL Blood Sugar 03/08/2025 08:22 PM 293.0 mg/dL Blood Sugar 03/08/2025 04:01 PM 277.0 mg/dL Blood Sugar 03/08/2025 11:04 AM 320.0 mg/dL Blood Sugar 03/08/2025 07:57 AM 242.0 mg/dL Blood Sugar 03/08/2025 05:31 AM 242.0 mg/dL Blood Sugar 03/07/2025 10:07 PM 182.0 mg/dL Blood Sugar 03/07/2025 03:42 PM 275.0 mg/dL Blood Sugar 03/07/2025 11:17 AM 217.0 mg/dL Blood Sugar 03/07/2025 08:04 AM 129.0 mg/dL Blood Sugar 03/07/2025 05:55 AM 129.0 mg/dL Blood Sugar 03/06/2025 10:38 PM 327.0 mg/dL Blood Sugar 03/06/2025 05:37 PM 278.0 mg/dL Blood Sugar 03/06/2025 11:06 AM 242.0 mg/dL Blood Sugar 03/06/2025 07:19 AM 173.0 mg/dL Blood Sugar 03/05/2025 06:23 PM 375.0 mg/dL Blood Sugar 03/05/2025 04:56 PM 348.0 mg/dL Blood Sugar 03/05/2025 11:36 AM 277.0 mg/dL Blood Sugar 03/05/2025 07:32 AM 102.0 mg/dL Blood Sugar 03/04/2025 07:33 PM 345.0 mg/dL Blood Sugar 03/04/2025 04:18 PM 257.0 mg/dL Blood Sugar 03/04/2025 11:38 AM 240.0 mg/dL Blood Sugar 03/04/2025 06:43 AM 127.0 mg/dL Blood Sugar 03/04/2025 06:43 AM 127.0 mg/dL Blood Sugar 03/03/2025 07:13 PM 362.0 mg/dL Blood Sugar 03/03/2025 04:48 PM 313.0 mg/dL Blood Sugar 03/03/2025 10:57 AM 305.0 mg/dL Blood Sugar 03/03/2025 10:57 AM 305.0 mg/dL Blood Sugar 03/03/2025 06:18 AM 169.0 mg/dL Blood Sugar 03/03/2025 06:14 AM 169.0 mg/dL Blood Sugar 03/02/2025 07:33 PM 234.0 mg/dL Blood Sugar 03/02/2025 06:28 PM 269.0 mg/dL Blood Sugar 03/02/2025 04:04 PM 290.0 mg/dL Blood Sugar 03/02/2025 11:17 AM 305.0 mg/dL Blood Sugar 03/02/2025 06:29 AM 249.0 mg/dL Blood Sugar 03/02/2025 05:34 AM 238.0 mg/dL Blood Sugar 03/02/2025 12:26 AM 301.0 mg/dL Blood Sugar 03/01/2025 04:10 PM 237.0 mg/dL Blood Sugar 03/01/2025 12:00 PM 304.0 mg/dL Blood Sugar 03/01/2025 07:59 AM 138.0 mg/dL Blood Sugar 03/01/2025 05:26 AM 190.0 mg/dL Blood Sugar 02/28/2025 10:17 PM 275.0 mg/dL Blood Sugar 02/28/2025 04:08 PM 275.0 mg/dL Blood Sugar 02/28/2025 11:04 AM 232.0 mg/dL Blood Sugar 02/28/2025 06:27 AM 116.0 mg/dL Blood Sugar 02/27/2025 08:25 PM 310.0 mg/dL Blood Sugar 02/27/2025 03:34 PM 282.0 mg/dL Blood Sugar 02/27/2025 11:30 AM 266.0 mg/dL Blood Sugar 02/27/2025 07:07 AM 121.0 mg/dL Blood Sugar 02/27/2025 05:24 AM 124.0 mg/dL Blood Sugar 02/26/2025 06:26 PM 280.0 mg/dL Blood Sugar 02/26/2025 04:04 PM 356.0 mg/dL Blood Sugar 02/26/2025 04:01 PM 356.0 mg/dL Blood Sugar 02/26/2025 10:48 AM 318.0 mg/dL Blood Sugar 02/26/2025 10:47 AM 318.0 mg/dL Blood Sugar 02/26/2025 06:32 AM 153.0 mg/dL Blood Sugar 02/26/2025 06:13 AM 153.0 mg/dL Blood Sugar 02/25/2025 07:36 PM 274.0 mg/dL Blood Sugar 02/25/2025 04:21 PM 213.0 mg/dL Blood Sugar 02/25/2025 11:44 AM 163.0 mg/dL Blood Sugar 02/25/2025 07:57 AM 149.0 mg/dL Blood Sugar 02/24/2025 07:25 PM 376.0 mg/dL Blood Sugar 02/24/2025 03:32 PM 280.0 mg/dL Blood Sugar 02/24/2025 11:04 AM 395.0 mg/dL Blood Sugar 02/24/2025 07:25 AM 217.0 mg/dL Blood Sugar 02/23/2025 07:57 PM 330.0 mg/dL Blood Sugar 02/23/2025 06:38 PM 240.0 mg/dL Blood Sugar 02/23/2025 01:08 PM 360.0 mg/dL Blood Sugar 02/23/2025 08:27 AM 261.0 mg/dL Blood Sugar 02/23/2025 05:10 AM 260.0 mg/dL Blood Sugar 02/22/2025 09:57 PM 254.0 mg/dL Blood Sugar 02/22/2025 04:15 PM 248.0 mg/dL Blood Sugar 02/22/2025 11:12 AM 218.0 mg/dL Blood Sugar 02/22/2025 07:49 AM 145.0 mg/dL Blood Sugar 02/22/2025 05:18 AM 156.0 mg/dL Blood Sugar 02/21/2025 11:57 PM 290.0 mg/dL Blood Sugar 02/21/2025 04:38 PM 248.0 mg/dL Blood Sugar 02/21/2025 11:01 AM 483.0 mg/dL Blood Sugar 02/21/2025 08:05 AM 140.0 mg/dL Blood Sugar 02/21/2025 05:18 AM 153.0 mg/dL Blood Sugar 02/20/2025 09:42 PM 268.0 mg/dL Blood Sugar 02/20/2025 03:51 PM 219.0 mg/dL Blood Sugar 02/20/2025 10:39 AM 274.0 mg/dL Blood Sugar 02/20/2025 05:45 AM 127.0 mg/dL Blood Sugar 02/19/2025 07:46 PM 337.0 mg/dL Blood Sugar 02/19/2025 05:15 PM 203.0 mg/dL Blood Sugar 02/19/2025 12:37 PM 154.0 mg/dL Blood Sugar 02/19/2025 09:25 AM 118.0 mg/dL Blood Sugar 02/18/2025 07:34 PM 251.0 mg/dL Blood Sugar 02/18/2025 04:30 PM 293.0 mg/dL Blood Sugar 02/18/2025 12:05 PM 250.0 mg/dL Blood Sugar 02/18/2025 07:25 AM 119.0 mg/dL Blood Sugar 02/17/2025 07:22 PM 252.0 mg/dL Blood Sugar 02/17/2025 05:02 PM 267.0 mg/dL Blood Sugar 02/17/2025 11:13 AM 318.0 mg/dL Blood Sugar 02/17/2025 07:51 AM 138.0 mg/dL Blood Sugar 02/16/2025 07:54 PM 293.0 mg/dL Blood Sugar 02/16/2025 04:35 PM 284.0 mg/dL Blood Sugar 02/16/2025 11:09 AM 212.0 mg/dL Blood Sugar 02/16/2025 06:46 AM 133.0 mg/dL Blood Sugar 02/16/2025 05:22 AM 151.0 mg/dL Blood Sugar 02/15/2025 07:58 PM 346.0 mg/dL Blood Sugar 02/15/2025 04:19 PM 217.0 mg/dL Blood Sugar 02/15/2025 11:11 AM 191.0 mg/dL Blood Sugar 02/15/2025 08:36 AM 179.0 mg/dL Blood Sugar 02/15/2025 05:07 AM 166.0 mg/dL Blood Sugar 02/14/2025 09:21 PM 254.0 mg/dL Blood Sugar 02/14/2025 05:22 PM 177.0 mg/dL Blood Sugar 02/14/2025 12:28 PM 309.0 mg/dL Blood Sugar 02/14/2025 07:05 AM 210.0 mg/dL Blood Sugar 02/14/2025 05:24 AM 232.0 mg/dL Blood Sugar 02/13/2025 08:15 PM 202.0 mg/dL Blood Sugar 02/13/2025 03:57 PM 332.0 mg/dL Blood Sugar 02/13/2025 10:46 AM 262.0 mg/dL Blood Sugar 02/13/2025 06:45 AM 192.0 mg/dL Blood Sugar 02/12/2025 10:13 PM 204.0 mg/dL Blood Sugar 02/12/2025 04:08 PM 200.0 mg/dL Blood Sugar 02/12/2025 10:36 AM 278.0 mg/dL Blood Sugar 02/12/2025 06:36 AM 186.0 mg/dL Blood Sugar 02/11/2025 07:03 PM 299.0 mg/dL Blood Sugar 02/11/2025 04:12 PM 208.0 mg/dL Blood Sugar 02/11/2025 11:12 AM 210.0 mg/dL Blood Sugar 02/11/2025 06:12 AM 152.0 mg/dL Blood Sugar 02/10/2025 07:33 PM 334.0 mg/dL Blood Sugar 02/10/2025 04:49 PM 220.0 mg/dL Blood Sugar 02/10/2025 12:10 PM 244.0 mg/dL Blood Sugar 02/10/2025 09:52 AM 180.0 mg/dL Blood Sugar 02/09/2025 08:17 PM 260.0 mg/dL Blood Sugar 02/09/2025 04:12 PM 262.0 mg/dL Blood Sugar 02/09/2025 12:37 PM 231.0 mg/dL Blood Sugar 02/09/2025 07:40 AM 170.0 mg/dL Blood Sugar 02/09/2025 05:00 AM 179.0 mg/dL Blood Sugar 02/08/2025 11:22 PM 312.0 mg/dL Blood Sugar 02/08/2025 04:55 PM 200.0 mg/dL Blood Sugar 02/08/2025 11:57 AM 255.0 mg/dL Blood Sugar 02/08/2025 09:33 AM 205.0 mg/dL Blood Sugar 02/08/2025 05:32 AM 202.0 mg/dL Blood Sugar 02/07/2025 07:43 PM 151.0 mg/dL Blood Sugar 02/07/2025 04:23 PM 221.0 mg/dL Blood Sugar 02/07/2025 11:25 AM 203.0 mg/dL Blood Sugar 02/07/2025 07:15 AM 142.0 mg/dL Blood Sugar 02/07/2025 05:18 AM 207.0 mg/dL Blood Sugar 02/06/2025 09:03 PM 208.0 mg/dL Blood Sugar 02/06/2025 03:41 PM 274.0 mg/dL Blood Sugar 02/06/2025 11:07 AM 199.0 mg/dL Blood Sugar 02/06/2025 05:36 AM 89.0 mg/dL Blood Sugar 02/05/2025 07:47 PM 390.0 mg/dL Blood Sugar 02/05/2025 04:15 PM 200.0 mg/dL Blood Sugar 02/05/2025 11:00 AM 210.0 mg/dL Blood Sugar 02/05/2025 07:28 AM 187.0 mg/dL Blood Sugar 02/04/2025 06:58 PM 308.0 mg/dL Blood Sugar 02/04/2025 04:57 PM 238.0 mg/dL Blood Sugar 02/04/2025 11:58 AM 181.0 mg/dL Blood Sugar 02/04/2025 07:58 AM 111.0 mg/dL Blood Sugar 02/04/2025 07:19 AM 111.0 mg/dL Blood Sugar 02/03/2025 07:25 PM 354.0 mg/dL Blood Sugar 02/03/2025 07:25 PM 354.0 mg/dL Blood Sugar 02/03/2025 04:53 PM 320.0 mg/dL Blood Sugar 02/03/2025 11:57 AM 293.0 mg/dL Blood Sugar 02/03/2025 06:28 AM 164.0 mg/dL Blood Sugar 02/02/2025 07:44 PM 400.0 mg/dL Blood Sugar 02/02/2025 04:09 PM 400.0 mg/dL Blood Sugar 02/02/2025 10:55 AM 230.0 mg/dL Blood Sugar 02/02/2025 06:48 AM 144.0 mg/dL Blood Sugar 02/02/2025 05:18 AM 150.0 mg/dL Blood Sugar 02/01/2025 11:04 PM 348.0 mg/dL Blood Sugar 02/01/2025 04:53 PM 238.0 mg/dL Blood Sugar 02/01/2025 12:16 PM 286.0 mg/dL Blood Sugar 02/01/2025 07:43 AM 248.0 mg/dL Blood Sugar 02/01/2025 05:15 AM 193.0 mg/dL Blood Sugar 01/31/2025 09:30 PM 284.0 mg/dL Blood Sugar 01/31/2025 08:55 PM 284.0 mg/dL Blood Sugar 01/31/2025 04:30 PM 231.0 mg/dL Blood Sugar 01/31/2025 11:25 AM 226.0 mg/dL Blood Sugar 01/31/2025 08:43 AM 167.0 mg/dL Blood Sugar 01/31/2025 05:45 AM 169.0 mg/dL Blood Sugar 01/30/2025 11:23 PM 296.0 mg/dL Blood Sugar 01/30/2025 03:40 PM 329.0 mg/dL Blood Sugar 01/30/2025 10:34 AM 280.0 mg/dL Blood Sugar 01/30/2025 06:44 AM 189.0 mg/dL Blood Sugar 01/30/2025 05:23 AM 188.0 mg/dL Blood Sugar 01/29/2025 09:09 PM 390.0 mg/dL Blood Sugar 01/29/2025 03:50 PM 293.0 mg/dL Blood Sugar 01/29/2025 10:37 AM 219.0 mg/dL Blood Sugar 01/29/2025 06:39 AM 98.0 mg/dL Blood Sugar 01/28/2025 07:52 PM 292.0 mg/dL Blood Sugar 01/28/2025 04:22 PM 168.0 mg/dL Blood Sugar 01/28/2025 11:21 AM 143.0 mg/dL Blood Sugar 01/28/2025 06:19 AM 161.0 mg/dL Blood Sugar 01/27/2025 07:51 PM 306.0 mg/dL Blood Sugar 01/27/2025 04:16 PM 247.0 mg/dL Blood Sugar 01/27/2025 06:28 AM 164.0 mg/dL Blood Sugar 01/27/2025 06:28 AM 164.0 mg/dL Blood Sugar 01/26/2025 06:37 PM 122.0 mg/dL Blood Sugar 01/26/2025 05:03 PM 188.0 mg/dL Blood Sugar 01/26/2025 12:05 PM 243.0 mg/dL Blood Sugar 01/26/2025 07:25 AM 226.0 mg/dL Blood Sugar 01/26/2025 05:36 AM 171.0 mg/dL Blood Sugar 01/25/2025 10:06 PM 290.0 mg/dL Blood Sugar 01/25/2025 03:51 PM 199.0 mg/dL Blood Sugar 01/25/2025 11:41 AM 320.0 mg/dL Blood Sugar 01/25/2025 08:12 AM 224.0 mg/dL Blood Sugar 01/25/2025 05:04 AM 203.0 mg/dL Blood Sugar 01/24/2025 06:42 PM 337.0 mg/dL Blood Sugar 01/24/2025 04:32 PM 250.0 mg/dL Blood Sugar 01/24/2025 10:17 AM 317.0 mg/dL Blood Sugar 01/24/2025 07:43 AM 225.0 mg/dL Blood Sugar 01/24/2025 05:44 AM 184.0 mg/dL Blood Sugar 01/23/2025 08:45 PM 284.0 mg/dL Blood Sugar 01/23/2025 03:19 PM 322.0 mg/dL Blood Sugar 01/23/2025 10:30 AM 304.0 mg/dL Blood Sugar 01/23/2025 07:18 AM 156.0 mg/dL Blood Sugar 01/22/2025 08:34 PM 197.0 mg/dL Blood Sugar 01/22/2025 04:25 PM 219.0 mg/dL Blood Sugar 01/22/2025 01:20 PM 258.0 mg/dL Blood Sugar 01/22/2025 08:23 AM 169.0 mg/dL Blood Sugar 01/21/2025 09:13 PM 213.0 mg/dL Blood Sugar 01/21/2025 08:06 PM 215.0 mg/dL Blood Sugar 01/21/2025 04:40 PM 179.0 mg/dL Blood Sugar 01/21/2025 11:18 AM 220.0 mg/dL Blood Sugar 01/21/2025 09:49 AM 132.0 mg/dL Blood Sugar 01/20/2025 07:12 PM 233.0 mg/dL Blood Sugar 01/20/2025 04:47 PM 209.0 mg/dL Blood Sugar 01/20/2025 12:03 PM 150.0 mg/dL Blood Sugar 01/20/2025 09:30 AM 138.0 mg/dL Blood Sugar 01/19/2025 06:47 PM 155.0 mg/dL Blood Sugar 01/19/2025 03:47 PM 344.0 mg/dL Blood Sugar 01/19/2025 10:48 AM 319.0 mg/dL Blood Sugar 01/19/2025 06:33 AM 230.0 mg/dL Blood Sugar 01/18/2025 09:08 PM 243.0 mg/dL Goals Goal Date ADL approaches will meet the resident?s needs to enhance ability, maintain abilities, or provide quality. Some approaches may be adjusted related to broken hip 11/22/24. 05/06/2025 Will adjust to change in rel ationships and accept support from staff for 120days from update/last review AND/OR Will be at ease interacting with others, expressing preferences daily for 120days from update/last review 05/06/2025 Luis will maintain or improve nutrition al status through next review 05/06/2025 Advanced directives will be honored as outlined by patient/family on daily basis thru 120days from update/last review 05/06/2025 Will have a BM at least ever y 3 days for 120 days since update/last review AND/OR will not experience any complications r/t to colostomy for 120 days from update/ last review AND/OR Will not experience any GI complications for 120 days since update/last review AND/OR Will remain clean, dry between incontinent episodes thru 120days from update/last review 05/06/2025 Will have positive responses to activities of my choice weekly through next assessment. 05/06/2025 Patient will have no falls. 05/06/2025 Maintain and improve dynamic balance and gait to help reduce falls . 3x week for 12 weeks. 05/06/2025 Will have no abnormal bleeding within th e next 120 days 05/06/2025 Comfort needs will be met th ru 120 days from update/last review AND/OR Will demonstrate pain relief AEB resting with no facial grimacing, moaning thru 120 days from update/last review AND/OR Will verbalize acceptable pain relief with current analgesic regimen thru 120 days from update/last review 05/06/2025 Social History Subject Status Smoking status Never smoker Encounters Admission Date Discharge Date Description MRN Visit Count 04/05/2021 15:07 LTPAC Admission [id number]
--- NOTE | 2025-04-22 19:57 | ECG_ITS ---
[facility] Test Date: 2025-04-22 Pat Name: Luis Mcintosh Department: Room: Gender: Male Head Batcher: : 1950 Requested By: Rebel Ragsdale Order Number: [id number] Yung MD: Sammie Mcgraw M.D. Measurements Intervals [place] Rate: 168 P: 0 ID: 0 QRS: 29 QRSD: 86 T: 119 QT: 269 QTc: 450 Interpretive Statements ATRIAL FIBRILLATION WITH RAPID VENTRICULAR RESPONSE MODERATE ST DEPRESSION [0.05+ mV ST DEPRESSION] ABNORMAL QRS-T ANGLE [QRS-T AXIS DIFFERENCE > 60] CRITICAL TEST RESULT Compared to ECG 03/31/2025 17:51:43 ST (T wave) deviation now present Baseline artifacts, need to repeat Electronically Signed On 04-22-2025 23:28:26 CDT by Sammei Mcgraw M.D. [id number]
--- OUTSIDE RECORDS SUMMARY | 2025-04-22 20:00 | XMS_ITS | Continuity of Care Document ---
Author Organization [employer] [facility] (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 04/05/2021 Active Atherosclerotic heart disease of [place] coronary artery without angina pectoris I25.10 04/05/2021 [...] 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 04/05/2021 Active intermediate (current) use of insulin Z79.4 04/05/2021 Active 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 Refere nce Range Blood chemistry[[id number]] Glucose [Mass/volume] in Serum or Plasma [2345-7] 04/22/2025 04:51 PM 255 mg/dL N Blood chemistry[[id number]] Glucose [Mass/volume] in Serum or Plasma [2345-7] 04/22/2025 08:44 AM 255 mg/dL N Blood chemistry[[id number]] Glucose [Mass/volume] in Serum or Plasma [2345-7] 04/22/2025 11:33 AM 220 mg/dL N Blood chemistry[[id number]] Glucose [Mass/volume] in Serum or Plasma [2345-7] 04/21/2025 01:12 PM 392 mg/dL N Blood chemistry[[id number]] Glucose [Mass/volume] in Serum or Plasma [2345-7] 04/21/2025 03:56 PM 253 mg/dL N Blood chemistry[[id number]] Glucose [Mass/volume] in Serum or Plasma [2345-7] 04/21/2025 09:32 AM 289 mg/dL N Blood chemistry[[id number]] Glucose [Mass/volume] in Serum or Plasma [2345-7] 04/21/2025 11:50 AM 221 mg/dL N Blood chemistry[[id number]] Glucose [Mass/volume] in Serum or Plasma [2345-7] 04/20/2025 11:09 AM 254 mg/dL N Blood chemistry[[id number]] Glucose [Mass/volume] in Serum or Plasma [2345-7] 04/20/2025 05:40 PM 319 mg/dL N Blood chemistry[[id number]] Glucose [Mass/volume] in Serum or Plasma [2345-7] 04/20/2025 09:49 AM 214 mg/dL N Blood chemistry[[id number]] Glucose [Mass/volume] in Serum or Plasma [2345-7] 04/20/2025 02:00 PM 191 mg/dL N Blood chemistry[[id number]] Glucose [Mass/volume] in Serum or Plasma [2345-7] 04/20/2025 10:20 AM 178 mg/dL N Blood chemistry[[id number]] Glucose [Mass/volume] in Serum or Plasma [2345-7] 04/20/2025 05:36 PM 355 mg/dL N Blood chemistry[[id number]] Glucose [Mass/volume] in Serum or Plasma [2345-7] 04/19/2025 04:18 PM 205 mg/dL N Blood chemistry[[id number]] Glucose [Mass/volume] in Serum or Plasma [2345-7] 04/19/2025 09:15 AM 234 mg/dL N Glucose [Mass/volume] in Serum or Plasma [2345-7] 04/19/2025 09:15 AM 234 mg/dL N Blood chemistry[[id number]] Glucose [Mass/volume] in Serum or Plasma [2345-7] 04/19/2025 11:50 AM 171 mg/dL N Blood chemistry[[id number]] Glucose [Mass/volume] in Serum or Plasma [2345-7] 04/19/2025 10:19 AM 185 mg/dL N Blood chemistry[[id number]] Glucose [Mass/volume] in Serum or Plasma [2345-7] 04/18/2025 02:58 PM 286 mg/dL N Blood chemistry[[id number]] Glucose [Mass/volume] in Serum or Plasma [2345-7] 04/18/2025 04:04 PM 234 mg/dL N Blood chemistry[[id number]] Glucose [Mass/volume] in Serum or Plasma [2345-7] 04/18/2025 08:57 AM 213 mg/dL N Blood chemistry[[id number]] Glucose [Mass/volume] in Serum or Plasma [2345-7] 04/18/2025 08:56 AM 213 mg/dL N Blood chemistry[[id number]] Glucose [Mass/volume] in Serum or Plasma [2345-7] 04/18/2025 12:30 PM 162 mg/dL N Blood chemistry[[id number]] Glucose [Mass/volume] in Serum or Plasma [2345-7] 04/18/2025 10:19 AM 176 mg/dL N Blood chemistry[[id number]] Glucose [Mass/volume] in Serum or Plasma [2345-7] 04/17/2025 04:21 PM 206 mg/dL N Blood chemistry[[id number]] Glucose [Mass/volume] in Serum or Plasma [2345-7] 04/17/2025 03:51 PM 328 mg/dL N Blood chemistry[[id number]] Glucose [Mass/volume] in Serum or Plasma [2345-7] 04/17/2025 08:26 AM 225 mg/dL N Blood chemistry[[id number]] Glucose [Mass/volume] in Serum or Plasma [2345-7] 04/17/2025 11:18 AM 192 mg/dL N Blood chemistry[[id number]] Glucose [Mass/volume] in Serum or Plasma [2345-7] 04/16/2025 11:41 AM 359 mg/dL N Blood chemistry[[id number]] Glucose [Mass/volume] in Serum or Plasma [2345-7] 04/16/2025 10:46 AM 237 mg/dL N Blood chemistry[[id number]] Glucose [Mass/volume] in Serum or Plasma [2345-7] 04/16/2025 06:15 AM 199 mg/dL N Blood chemistry[[id number]] Glucose [Mass/volume] in Serum or Plasma [2345-7] 04/16/2025 12:09 PM 202 mg/dL N Blood chemistry[[id number]] Glucose [Mass/volume] in Serum or Plasma [2345-7] 04/15/2025 12:50 PM 365 mg/dL N Blood chemistry[[id number]] Glucose [Mass/volume] in Serum or Plasma [2345-7] 04/15/2025 04:02 PM 387 mg/dL N Blood chemistry[[id number]] Glucose [Mass/volume] in Serum or Plasma [2345-7] 04/15/2025 08:22 AM 154 mg/dL N Blood chemistry[[id number]] Glucose [Mass/volume] in Serum or Plasma [2345-7] 04/15/2025 11:39 AM 213 mg/dL N Blood chemistry[[id number]] Glucose [Mass/volume] in Serum or Plasma [2345-7] 04/14/2025 12:57 PM 311 mg/dL N Blood chemistry[[id number]] Glucose [Mass/volume] in Serum or Plasma [2345-7] 04/14/2025 04:08 PM 329 mg/dL N Blood chemistry[[id number]] Glucose [Mass/volume] in Serum or Plasma [2345-7] 04/14/2025 08:50 AM 195 mg/dL N Blood chemistry[[id number]] Glucose [Mass/volume] in Serum or Plasma [2345-7] 04/14/2025 11:25 AM 168 mg/dL N Blood chemistry[[id number]] Glucose [Mass/volume] in Serum or Plasma [2345-7] 04/13/2025 04:07 PM 213 mg/dL N Blood chemistry[[id number]] Glucose [Mass/volume] in Serum or Plasma [2345-7] 04/13/2025 11:49 AM 277 mg/dL N Blood chemistry[[id number]] Glucose [Mass/volume] in Serum or Plasma [2345-7] 04/13/2025 09:11 AM 144 mg/dL N Blood chemistry[[id number]] Glucose [Mass/volume] in Serum or Plasma [2345-7] 04/13/2025 11:29 AM 148 mg/dL N Blood chemistry[[id number]] Glucose [Mass/volume] in Serum or Plasma [2345-7] 04/13/2025 10:36 AM 160 mg/dL N Blood chemistry[[id number]] Glucose [Mass/volume] in Serum or Plasma [2345-7] 04/13/2025 05:29 PM 405 mg/dL N Blood chemistry[[id number]] Glucose [Mass/volume] in Serum or Plasma [2345-7] 04/12/2025 04:08 PM 311 mg/dL N Blood chemistry[[id number]] Glucose [Mass/volume] in Serum or Plasma [2345-7] 04/12/2025 04:07 PM 311 mg/dL N Blood chemistry[[id number]] Glucose [Mass/volume] in Serum or Plasma [2345-7] 04/12/2025 09:16 AM 249 mg/dL N Blood chemistry[[id number]] Glucose [Mass/volume] in Serum or Plasma [2345-7] 04/12/2025 09:11 AM 248 mg/dL N Blood chemistry[[id number]] Glucose [Mass/volume] in Serum or Plasma [2345-7] 04/12/2025 12:09 PM 160 mg/dL N Blood chemistry[[id number]] Glucose [Mass/volume] in Serum or Plasma [2345-7] 04/12/2025 10:23 AM 173 mg/dL N Blood chemistry[[id number]] Glucose [Mass/volume] in Serum or Plasma [2345-7] 04/11/2025 04:40 PM 301 mg/dL N Blood chemistry[[id number]] Glucose [Mass/volume] in Serum or Plasma [2345-7] 04/11/2025 03:14 PM 193 mg/dL N Blood chemistry[[id number]] Glucose [Mass/volume] in Serum or Plasma [2345-7] 04/11/2025 09:12 AM 284 mg/dL N Blood chemistry[[id number]] Glucose [Mass/volume] in Serum or Plasma [2345-7] 04/11/2025 10:16 AM 170 mg/dL N Blood chemistry[[id number]] Glucose [Mass/volume] in Serum or Plasma [2345-7] 04/11/2025 10:01 AM 178 mg/dL N Blood chemistry[[id number]] Glucose [Mass/volume] in Serum or Plasma [2345-7] 04/10/2025 02:40 PM 213 mg/dL N Blood chemistry[[id number]] Glucose [Mass/volume] in Serum or Plasma [2345-7] 04/10/2025 09:03 AM 270 mg/dL N Blood chemistry[[id number]] Glucose [Mass/volume] in Serum or Plasma [2345-7] 04/10/2025 04:33 PM 173 mg/dL N Blood chemistry[[id number]] Glucose [Mass/volume] in Serum or Plasma [2345-7] 04/10/2025 12:01 PM 220 mg/dL N Blood chemistry[[id number]] Glucose [Mass/volume] in Serum or Plasma [2345-7] 04/10/2025 10:28 AM 264 mg/dL N Blood chemistry[[id number]] Glucose [Mass/volume] in Serum or Plasma [2345-7] 04/09/2025 04:27 PM 222 mg/dL N Blood chemistry[[id number]] Glucose [Mass/volume] in Serum or Plasma [2345-7] 04/09/2025 04:26 PM 222 mg/dL N Blood chemistry[[id number]] Glucose [Mass/volume] in Serum or Plasma [2345-7] 04/09/2025 02:43 PM 318 mg/dL N Blood chemistry[[id number]] Glucose [Mass/volume] in Serum or Plasma [2345-7] 04/09/2025 11:42 AM 213 mg/dL N Blood chemistry[[id number]] Glucose [Mass/volume] in Serum or Plasma [2345-7] 04/09/2025 11:39 AM 213 mg/dL N Blood chemistry[[id number]] Glucose [Mass/volume] in Serum or Plasma [2345-7] 04/09/2025 09:04 AM 216 mg/dL N Glucose [Mass/volume] in Serum or Plasma [2345-7] 04/09/2025 09:04 AM 216 mg/dL N Blood chemistry[[id number]] Glucose [Mass/volume] in Serum or Plasma [2345-7] 04/08/2025 04:33 PM 346 mg/dL N Blood chemistry[[id number]] Glucose [Mass/volume] in Serum or Plasma [2345-7] 04/08/2025 12:44 PM 336 mg/dL N Blood chemistry[[id number]] Glucose [Mass/volume] in Serum or Plasma [2345-7] 04/08/2025 11:45 AM 194 mg/dL N Blood chemistry[[id number]] Glucose [Mass/volume] in Serum or Plasma [2345-7] 04/08/2025 08:56 AM 230 mg/dL N Blood chemistry[[id number]] Glucose [Mass/volume] in Serum or Plasma [2345-7] 04/07/2025 03:42 PM 236 mg/dL N Blood chemistry[[id number]] Glucose [Mass/volume] in Serum or Plasma [2345-7] 04/07/2025 12:47 PM 284 mg/dL N Blood chemistry[[id number]] Glucose [Mass/volume] in Serum or Plasma [2345-7] 04/07/2025 10:50 AM 195 mg/dL N Blood chemistry[[id number]] Glucose [Mass/volume] in Serum or Plasma [2345-7] 04/07/2025 08:30 AM 231 mg/dL N Blood chemistry[[id number]] Glucose [Mass/volume] in Serum or Plasma [2345-7] 04/06/2025 03:46 PM 144 mg/dL N Blood chemistry[[id number]] Glucose [Mass/volume] in Serum or Plasma [2345-7] 04/06/2025 02:48 PM 327 mg/dL N Blood chemistry[[id number]] Glucose [Mass/volume] in Serum or Plasma [2345-7] 04/06/2025 10:49 AM 86 mg/dL N Blood chemistry[[id number]] Glucose [Mass/volume] in Serum or Plasma [2345-7] 04/06/2025 08:34 AM 232 mg/dL N Blood chemistry[[id number]] Glucose [Mass/volume] in Serum or Plasma [2345-7] 04/05/2025 04:47 PM 298 mg/dL N Blood chemistry[[id number]] Glucose [Mass/volume] in Serum or Plasma [2345-7] 04/05/2025 03:57 PM 175 mg/dL N Blood chemistry[[id number]] Glucose [Mass/volume] in Serum or Plasma [2345-7] 04/05/2025 11:55 AM 109 mg/dL N Blood chemistry[[id number]] Glucose [Mass/volume] in Serum or Plasma [2345-7] 04/05/2025 09:27 AM 265 mg/dL N Blood chemistry[[id number]] Glucose [Mass/volume] in Serum or Plasma [2345-7] 04/04/2025 03:39 PM 267 mg/dL N Blood chemistry[[id number]] Glucose [Mass/volume] in Serum or Plasma [2345-7] 04/04/2025 02:29 PM 328 mg/dL N Blood chemistry[[id number]] Glucose [Mass/volume] in Serum or Plasma [2345-7] 04/04/2025 11:54 AM 142 mg/dL N Blood chemistry[[id number]] Glucose [Mass/volume] in Serum or Plasma [2345-7] 04/04/2025 10:05 AM 127 mg/dL N Blood chemistry[[id number]] Glucose [Mass/volume] in Serum or Plasma [2345-7] 04/04/2025 08:49 AM 309 mg/dL N Blood chemistry[[id number]] Glucose [Mass/volume] in Serum or Plasma [2345-7] 04/03/2025 04:44 PM 154 mg/dL N Blood chemistry[[id number]] Glucose [Mass/volume] in Serum or Plasma [2345-7] 03/31/2025 04:22 PM 262 mg/dL N Blood chemistry[[id number]] Glucose [Mass/volume] in Serum or Plasma [2345-7] 03/31/2025 11:43 AM 168 mg/dL N Blood chemistry[[id number]] Glucose [Mass/volume] in Serum or Plasma [2345-7] 03/30/2025 03:54 PM 219 mg/dL N Blood chemistry[[id number]] Glucose [Mass/volume] in Serum or Plasma [2345-7] 03/30/2025 12:07 PM 197 mg/dL N Blood chemistry[[id number]] Glucose [Mass/volume] in Serum or Plasma [2345-7] 03/30/2025 11:33 AM 299 mg/dL N Blood chemistry[[id number]] Glucose [Mass/volume] in Serum or Plasma [2345-7] 03/30/2025 10:09 AM 292 mg/dL N Blood chemistry[[id number]] Glucose [Mass/volume] in Serum or Plasma [2345-7] 03/30/2025 09:25 AM 375 mg/dL N Blood chemistry[[id number]] Glucose [Mass/volume] in Serum or Plasma [2345-7] 03/29/2025 05:06 PM 223 mg/dL N Blood chemistry[[id number]] Glucose [Mass/volume] in Serum or Plasma [2345-7] 03/29/2025 04:48 PM 266 mg/dL N Blood chemistry[[id number]] Glucose [Mass/volume] in Serum or Plasma [2345-7] 03/29/2025 04:47 PM 266 mg/dL N Blood chemistry[[id number]] Glucose [Mass/volume] in Serum or Plasma [2345-7] 03/29/2025 04:37 PM 266 mg/dL N Blood chemistry[[id number]] Glucose [Mass/volume] in Serum or Plasma [2345-7] 03/29/2025 12:32 PM 267 mg/dL N Blood chemistry[[id number]] Glucose [Mass/volume] in Serum or Plasma [2345-7] 03/29/2025 11:37 AM 168 mg/dL N Blood chemistry[[id number]] Glucose [Mass/volume] in Serum or Plasma [2345-7] 03/29/2025 10:03 AM 231 mg/dL N Blood chemistry[[id number]] Glucose [Mass/volume] in Serum or Plasma [2345-7] 03/29/2025 09:06 AM 212 mg/dL N Blood chemistry[[id number]] Glucose [Mass/volume] in Serum or Plasma [2345-7] 03/28/2025 04:00 PM 336 mg/dL N Blood chemistry[[id number]] Glucose [Mass/volume] in Serum or Plasma [2345-7] 03/28/2025 03:59 PM 336 mg/dL N Blood chemistry[[id number]] Glucose [Mass/volume] in Serum or Plasma [2345-7] 03/28/2025 11:52 AM 204 mg/dL N Blood chemistry[[id number]] Glucose [Mass/volume] in Serum or Plasma [2345-7] 03/28/2025 10:17 AM 199 mg/dL N Blood chemistry[[id number]] Glucose [Mass/volume] in Serum or Plasma [2345-7] 03/28/2025 09:55 AM 230 mg/dL N Blood chemistry[[id number]] Glucose [Mass/volume] in Serum or Plasma [2345-7] 03/28/2025 09:53 AM 230 mg/dL N Blood chemistry[[id number]] Glucose [Mass/volume] in Serum or Plasma [2345-7] 03/27/2025 04:07 PM 414 mg/dL N Blood chemistry[[id number]] Glucose [Mass/volume] in Serum or Plasma [2345-7] 03/27/2025 03:09 PM 201 mg/dL N Blood chemistry[[id number]] Glucose [Mass/volume] in Serum or Plasma [2345-7] 03/27/2025 10:53 AM 190 mg/dL N Blood chemistry[[id number]] Glucose [Mass/volume] in Serum or Plasma [2345-7] 03/27/2025 08:51 AM 176 mg/dL N Blood chemistry[[id number]] Glucose [Mass/volume] in Serum or Plasma [2345-7] 03/26/2025 04:14 PM 259 mg/dL N Blood chemistry[[id number]] Glucose [Mass/volume] in Serum or Plasma [2345-7] 03/26/2025 03:41 PM 290 mg/dL N Blood chemistry[[id number]] Glucose [Mass/volume] in Serum or Plasma [2345-7] 03/26/2025 12:50 PM 174 mg/dL N Blood chemistry[[id number]] Glucose [Mass/volume] in Serum or Plasma [2345-7] 03/26/2025 09:52 AM 287 mg/dL N Blood chemistry[[id number]] Glucose [Mass/volume] in Serum or Plasma [2345-7] 03/25/2025 04:22 PM 210 mg/dL N Blood chemistry[[id number]] Glucose [Mass/volume] in Serum or Plasma [2345-7] 03/25/2025 11:45 AM 89 mg/dL N Blood chemistry[[id number]] Glucose [Mass/volume] in Serum or Plasma [2345-7] 03/25/2025 11:25 AM 245 mg/dL N Blood chemistry[[id number]] Glucose [Mass/volume] in Serum or Plasma [2345-7] 03/25/2025 08:55 AM 142 mg/dL N Blood chemistry[[id number]] Glucose [Mass/volume] in Serum or Plasma [2345-7] 03/24/2025 04:58 PM 389 mg/dL N Glucose [Mass/volume] in Serum or Plasma [2345-7] 03/24/2025 04:58 PM 389 mg/dL N Blood chemistry[[id number]] Glucose [Mass/volume] in Serum or Plasma [2345-7] 03/24/2025 01:05 PM 269 mg/dL N Blood chemistry[[id number]] Glucose [Mass/volume] in Serum or Plasma [2345-7] 03/24/2025 01:02 PM 133 mg/dL N Blood chemistry[[id number]] Glucose [Mass/volume] in Serum or Plasma [2345-7] 03/24/2025 09:46 AM 214 mg/dL N Blood chemistry[[id number]] Glucose [Mass/volume] in Serum or Plasma [2345-7] 03/23/2025 04:18 PM 241 mg/dL N Blood chemistry[[id number]] Glucose [Mass/volume] in Serum or Plasma [2345-7] 03/23/2025 12:03 PM 109 mg/dL N Blood chemistry[[id number]] Glucose [Mass/volume] in Serum or Plasma [2345-7] 03/23/2025 11:39 AM 241 mg/dL N Blood chemistry[[id number]] Glucose [Mass/volume] in Serum or Plasma [2345-7] 03/23/2025 10:36 AM 117 mg/dL N Blood chemistry[[id number]] Glucose [Mass/volume] in Serum or Plasma [2345-7] 03/23/2025 09:00 AM 263 mg/dL N Blood chemistry[[id number]] Glucose [Mass/volume] in Serum or Plasma [2345-7] 03/22/2025 04:31 PM 317 mg/dL N Blood chemistry[[id number]] Glucose [Mass/volume] in Serum or Plasma [2345-7] 03/22/2025 12:25 PM 225 mg/dL N Blood chemistry[[id number]] Glucose [Mass/volume] in Serum or Plasma [2345-7] 03/22/2025 10:21 AM 191 mg/dL N Blood chemistry[[id number]] Glucose [Mass/volume] in Serum or Plasma [2345-7] 03/22/2025 08:58 AM 269 mg/dL N Blood chemistry[[id number]] Glucose [Mass/volume] in Serum or Plasma [2345-7] 03/21/2025 04:14 PM 259 mg/dL N Blood chemistry[[id number]] Glucose [Mass/volume] in Serum or Plasma [2345-7] 03/21/2025 03:22 PM 254 mg/dL N Blood chemistry[[id number]] Glucose [Mass/volume] in Serum or Plasma [2345-7] 03/21/2025 11:42 AM 237 mg/dL N Blood chemistry[[id number]] Glucose [Mass/volume] in Serum or Plasma [2345-7] 03/21/2025 10:02 AM 274 mg/dL N Blood chemistry[[id number]] Glucose [Mass/volume] in Serum or Plasma [2345-7] 03/21/2025 09:11 AM 269 mg/dL N Blood chemistry[[id number]] Glucose [Mass/volume] in Serum or Plasma [2345-7] 03/21/2025 06:56 AM 200 mg/dL N Blood chemistry[[id number]] Glucose [Mass/volume] in Serum or Plasma [2345-7] 03/20/2025 03:41 PM 396 mg/dL N Blood chemistry[[id number]] Glucose [Mass/volume] in Serum or Plasma [2345-7] 03/20/2025 11:33 AM 86 mg/dL N Blood chemistry[[id number]] Glucose [Mass/volume] in Serum or Plasma [2345-7] 03/20/2025 08:39 AM 330 mg/dL N Blood chemistry[[id number]] Glucose [Mass/volume] in Serum or Plasma [2345-7] 03/19/2025 04:12 PM 205 mg/dL N Blood chemistry[[id number]] Glucose [Mass/volume] in Serum or Plasma [2345-7] 03/19/2025 11:47 AM 139 mg/dL N Blood chemistry[[id number]] Glucose [Mass/volume] in Serum or Plasma [2345-7] 03/19/2025 11:31 AM 166 mg/dL N Blood chemistry[[id number]] Glucose [Mass/volume] in Serum or Plasma [2345-7] 03/19/2025 09:27 AM 198 mg/dL N Blood chemistry[[id number]] Glucose [Mass/volume] in Serum or Plasma [2345-7] 03/18/2025 03:25 PM 302 mg/dL N Blood chemistry[[id number]] Glucose [Mass/volume] in Serum or Plasma [2345-7] 03/18/2025 01:01 PM 307 mg/dL N Blood chemistry[[id number]] Glucose [Mass/volume] in Serum or Plasma [2345-7] 03/18/2025 11:45 AM 112 mg/dL N Blood chemistry[[id number]] Glucose [Mass/volume] in Serum or Plasma [2345-7] 03/18/2025 08:24 AM 231 mg/dL N Blood chemistry[[id number]] Glucose [Mass/volume] in Serum or Plasma [2345-7] 03/17/2025 03:54 PM 344 mg/dL N Blood chemistry[[id number]] Glucose [Mass/volume] in Serum or Plasma [2345-7] 03/17/2025 11:42 AM 124 mg/dL N Blood chemistry[[id number]] Glucose [Mass/volume] in Serum or Plasma [2345-7] 03/17/2025 11:36 AM 244 mg/dL N Blood chemistry[[id number]] Glucose [Mass/volume] in Serum or Plasma [2345-7] 03/17/2025 08:56 AM 277 mg/dL N Blood chemistry[[id number]] Glucose [Mass/volume] in Serum or Plasma [2345-7] 03/16/2025 11:45 AM 230 mg/dL N Blood chemistry[[id number]] Glucose [Mass/volume] in Serum or Plasma [2345-7] 03/16/2025 11:23 AM 97 mg/dL N Blood chemistry[[id number]] Glucose [Mass/volume] in Serum or Plasma [2345-7] 03/16/2025 10:24 AM 104 mg/dL N Blood chemistry[[id number]] Glucose [Mass/volume] in Serum or Plasma [2345-7] 03/16/2025 09:13 AM 195 mg/dL N Blood chemistry[[id number]] Glucose [Mass/volume] in Serum or Plasma [2345-7] 03/15/2025 04:18 PM 204 mg/dL N Blood chemistry[[id number]] Glucose [Mass/volume] in Serum or Plasma [2345-7] 03/15/2025 02:04 PM 348 mg/dL N Blood chemistry[[id number]] Glucose [Mass/volume] in Serum or Plasma [2345-7] 03/15/2025 11:51 AM 256 mg/dL N Blood chemistry[[id number]] Glucose [Mass/volume] in Serum or Plasma [2345-7] 03/15/2025 10:26 AM 256 mg/dL N Blood chemistry[[id number]] Glucose [Mass/volume] in Serum or Plasma [2345-7] 03/15/2025 08:53 AM 244 mg/dL N Blood chemistry[[id number]] Glucose [Mass/volume] in Serum or Plasma [2345-7] 03/14/2025 04:33 PM 342 mg/dL N Blood chemistry[[id number]] Glucose [Mass/volume] in Serum or Plasma [2345-7] 03/14/2025 02:10 PM 275 mg/dL N Blood chemistry[[id number]] Glucose [Mass/volume] in Serum or Plasma [2345-7] 03/14/2025 11:43 AM 232 mg/dL N Blood chemistry[[id number]] Glucose [Mass/volume] in Serum or Plasma [2345-7] 03/14/2025 10:45 AM 228 mg/dL N Blood chemistry[[id number]] Glucose [Mass/volume] in Serum or Plasma [2345-7] 03/14/2025 09:24 AM 355 mg/dL N Blood chemistry[[id number]] Glucose [Mass/volume] in Serum or Plasma [2345-7] 03/13/2025 05:04 PM 268 mg/dL N Blood chemistry[[id number]] Glucose [Mass/volume] in Serum or Plasma [2345-7] 03/13/2025 03:27 PM 210 mg/dL N Blood chemistry[[id number]] Glucose [Mass/volume] in Serum or Plasma [2345-7] 03/13/2025 12:06 PM 196 mg/dL N Blood chemistry[[id number]] Glucose [Mass/volume] in Serum or Plasma [2345-7] 03/13/2025 10:33 AM 213 mg/dL N Blood chemistry[[id number]] Glucose [Mass/volume] in Serum or Plasma [2345-7] 03/13/2025 09:13 AM 314 mg/dL N Blood chemistry[[id number]] Glucose [Mass/volume] in Serum or Plasma [2345-7] 03/12/2025 03:40 PM 284 mg/dL N Blood chemistry[[id number]] Glucose [Mass/volume] in Serum or Plasma [2345-7] 03/12/2025 02:53 PM 363 mg/dL N Blood chemistry[[id number]] Glucose [Mass/volume] in Serum or Plasma [2345-7] 03/12/2025 11:17 AM 237 mg/dL N Blood chemistry[[id number]] Glucose [Mass/volume] in Serum or Plasma [2345-7] 03/12/2025 08:47 AM 321 mg/dL N Blood chemistry[[id number]] Glucose [Mass/volume] in Serum or Plasma [2345-7] 03/11/2025 04:34 PM 206 mg/dL N Blood chemistry[[id number]] Glucose [Mass/volume] in Serum or Plasma [2345-7] 03/11/2025 01:10 PM 206 mg/dL N Blood chemistry[[id number]] Glucose [Mass/volume] in Serum or Plasma [2345-7] 03/11/2025 11:25 AM 200 mg/dL N Blood chemistry[[id number]] Glucose [Mass/volume] in Serum or Plasma [2345-7] 03/11/2025 08:59 AM 226 mg/dL N Blood chemistry[[id number]] Glucose [Mass/volume] in Serum or Plasma [2345-7] 03/10/2025 05:53 PM 165 mg/dL N Blood chemistry[[id number]] Glucose [Mass/volume] in Serum or Plasma [2345-7] 03/10/2025 01:23 PM 199 mg/dL N Blood chemistry[[id number]] Glucose [Mass/volume] in Serum or Plasma [2345-7] 03/10/2025 12:39 PM 308 mg/dL N Blood chemistry[[id number]] Glucose [Mass/volume] in Serum or Plasma [2345-7] 03/10/2025 09:53 AM 144 mg/dL N Blood chemistry[[id number]] Glucose [Mass/volume] in Serum or Plasma [2345-7] 03/09/2025 01:16 PM 362 mg/dL N Blood chemistry[[id number]] Glucose [Mass/volume] in Serum or Plasma [2345-7] 03/09/2025 12:42 PM 188 mg/dL N Blood chemistry[[id number]] Glucose [Mass/volume] in Serum or Plasma [2345-7] 03/09/2025 11:40 AM 362 mg/dL N Blood chemistry[[id number]] Glucose [Mass/volume] in Serum or Plasma [2345-7] 03/09/2025 10:09 AM 192 mg/dL N Blood chemistry[[id number]] Glucose [Mass/volume] in Serum or Plasma [2345-7] 03/09/2025 06:02 AM 145 mg/dL N Blood chemistry[[id number]] Glucose [Mass/volume] in Serum or Plasma [2345-7] 03/08/2025 04:04 PM 320 mg/dL N Blood chemistry[[id number]] Glucose [Mass/volume] in Serum or Plasma [2345-7] 03/08/2025 01:22 PM 293 mg/dL N Blood chemistry[[id number]] Glucose [Mass/volume] in Serum or Plasma [2345-7] 03/08/2025 12:57 PM 242 mg/dL N Blood chemistry[[id number]] Glucose [Mass/volume] in Serum or Plasma [2345-7] 03/08/2025 10:31 AM 242 mg/dL N Blood chemistry[[id number]] Glucose [Mass/volume] in Serum or Plasma [2345-7] 03/08/2025 09:01 AM 277 mg/dL N Blood chemistry[[id number]] Glucose [Mass/volume] in Serum or Plasma [2345-7] 03/07/2025 04:17 PM 217 mg/dL N Blood chemistry[[id number]] Glucose [Mass/volume] in Serum or Plasma [2345-7] 03/07/2025 03:07 PM 182 mg/dL N Blood chemistry[[id number]] Glucose [Mass/volume] in Serum or Plasma [2345-7] 03/07/2025 01:04 PM 129 mg/dL N Blood chemistry[[id number]] Glucose [Mass/volume] in Serum or Plasma [2345-7] 03/07/2025 10:55 AM 129 mg/dL N Blood chemistry[[id number]] Glucose [Mass/volume] in Serum or Plasma [2345-7] 03/07/2025 08:42 AM 275 mg/dL N Blood chemistry[[id number]] Glucose [Mass/volume] in Serum or Plasma [2345-7] 03/06/2025 04:06 PM 242 mg/dL N Blood chemistry[[id number]] Glucose [Mass/volume] in Serum or Plasma [2345-7] 03/06/2025 03:38 PM 327 mg/dL N Blood chemistry[[id number]] Glucose [Mass/volume] in Serum or Plasma [2345-7] 03/06/2025 12:19 PM 173 mg/dL N Blood chemistry[[id number]] Glucose [Mass/volume] in Serum or Plasma [2345-7] 03/06/2025 10:37 AM 278 mg/dL N Blood chemistry[[id number]] Glucose [Mass/volume] in Serum or Plasma [2345-7] 03/05/2025 04:36 PM 277 mg/dL N Blood chemistry[[id number]] Glucose [Mass/volume] in Serum or Plasma [2345-7] 03/05/2025 12:32 PM 102 mg/dL N Blood chemistry[[id number]] Glucose [Mass/volume] in Serum or Plasma [2345-7] 03/05/2025 11:23 AM 375 mg/dL N Blood chemistry[[id number]] Glucose [Mass/volume] in Serum or Plasma [2345-7] 03/05/2025 09:56 AM 348 mg/dL N Blood chemistry[[id number]] Glucose [Mass/volume] in Serum or Plasma [2345-7] 03/04/2025 04:38 PM 240 mg/dL N Blood chemistry[[id number]] Glucose [Mass/volume] in Serum or Plasma [2345-7] 03/04/2025 12:33 PM 345 mg/dL N Blood chemistry[[id number]] Glucose [Mass/volume] in Serum or Plasma [2345-7] 03/04/2025 11:43 AM 127 mg/dL N Glucose [Mass/volume] in Serum or Plasma [2345-7] 03/04/2025 11:43 AM 127 mg/dL N Blood chemistry[[id number]] Glucose [Mass/volume] in Serum or Plasma [2345-7] 03/04/2025 09:18 AM 257 mg/dL N Blood chemistry[[id number]] Glucose [Mass/volume] in Serum or Plasma [2345-7] 03/03/2025 03:57 PM 305 mg/dL N Glucose [Mass/volume] in Serum or Plasma [2345-7] 03/03/2025 03:57 PM 305 mg/dL N Blood chemistry[[id number]] Glucose [Mass/volume] in Serum or Plasma [2345-7] 03/03/2025 12:13 PM 362 mg/dL N Blood chemistry[[id number]] Glucose [Mass/volume] in Serum or Plasma [2345-7] 03/03/2025 11:18 AM 169 mg/dL N Blood chemistry[[id number]] Glucose [Mass/volume] in Serum or Plasma [2345-7] 03/03/2025 11:14 AM 169 mg/dL N Blood chemistry[[id number]] Glucose [Mass/volume] in Serum or Plasma [2345-7] 03/03/2025 09:48 AM 313 mg/dL N Blood chemistry[[id number]] Glucose [Mass/volume] in Serum or Plasma [2345-7] 03/02/2025 05:26 PM 301 mg/dL N Blood chemistry[[id number]] Glucose [Mass/volume] in Serum or Plasma [2345-7] 03/02/2025 04:17 PM 305 mg/dL N Blood chemistry[[id number]] Glucose [Mass/volume] in Serum or Plasma [2345-7] 03/02/2025 12:33 PM 234 mg/dL N Blood chemistry[[id number]] Glucose [Mass/volume] in Serum or Plasma [2345-7] 03/02/2025 11:29 AM 249 mg/dL N Blood chemistry[[id number]] Glucose [Mass/volume] in Serum or Plasma [2345-7] 03/02/2025 11:28 AM 269 mg/dL N Blood chemistry[[id number]] Glucose [Mass/volume] in Serum or Plasma [2345-7] 03/02/2025 10:34 AM 238 mg/dL N Blood chemistry[[id number]] Glucose [Mass/volume] in Serum or Plasma [2345-7] 03/02/2025 09:04 AM 290 mg/dL N Blood chemistry[[id number]] Glucose [Mass/volume] in Serum or Plasma [2345-7] 03/01/2025 05:00 PM 304 mg/dL N Blood chemistry[[id number]] Glucose [Mass/volume] in Serum or Plasma [2345-7] 03/01/2025 12:59 PM 138 mg/dL N Blood chemistry[[id number]] Glucose [Mass/volume] in Serum or Plasma [2345-7] 03/01/2025 10:26 AM 190 mg/dL N Blood chemistry[[id number]] Glucose [Mass/volume] in Serum or Plasma [2345-7] 03/01/2025 09:10 AM 237 mg/dL N Blood chemistry[[id number]] Glucose [Mass/volume] in Serum or Plasma [2345-7] 02/28/2025 04:04 PM 232 mg/dL N Blood chemistry[[id number]] Glucose [Mass/volume] in Serum or Plasma [2345-7] 02/28/2025 03:17 PM 275 mg/dL N Blood chemistry[[id number]] Glucose [Mass/volume] in Serum or Plasma [2345-7] 02/28/2025 11:27 AM 116 mg/dL N Blood chemistry[[id number]] Glucose [Mass/volume] in Serum or Plasma [2345-7] 02/28/2025 09:08 AM 275 mg/dL N Blood chemistry[[id number]] Glucose [Mass/volume] in Serum or Plasma [2345-7] 02/27/2025 04:30 PM 266 mg/dL N Blood chemistry[[id number]] Glucose [Mass/volume] in Serum or Plasma [2345-7] 02/27/2025 01:25 PM 310 mg/dL N Blood chemistry[[id number]] Glucose [Mass/volume] in Serum or Plasma [2345-7] 02/27/2025 12:07 PM 121 mg/dL N Blood chemistry[[id number]] Glucose [Mass/volume] in Serum or Plasma [2345-7] 02/27/2025 10:24 AM 124 mg/dL N Blood chemistry[[id number]] Glucose [Mass/volume] in Serum or Plasma [2345-7] 02/27/2025 08:34 AM 282 mg/dL N Blood chemistry[[id number]] Glucose [Mass/volume] in Serum or Plasma [2345-7] 02/26/2025 03:48 PM 318 mg/dL N Blood chemistry[[id number]] Glucose [Mass/volume] in Serum or Plasma [2345-7] 02/26/2025 03:47 PM 318 mg/dL N Blood chemistry[[id number]] Glucose [Mass/volume] in Serum or Plasma [2345-7] 02/26/2025 11:32 AM 153 mg/dL N Blood chemistry[[id number]] Glucose [Mass/volume] in Serum or Plasma [2345-7] 02/26/2025 11:26 AM 280 mg/dL N Blood chemistry[[id number]] Glucose [Mass/volume] in Serum or Plasma [2345-7] 02/26/2025 11:13 AM 153 mg/dL N Blood chemistry[[id number]] Glucose [Mass/volume] in Serum or Plasma [2345-7] 02/26/2025 09:04 AM 356 mg/dL N Blood chemistry[[id number]] Glucose [Mass/volume] in Serum or Plasma [2345-7] 02/26/2025 09:01 AM 356 mg/dL N Blood chemistry[[id number]] Glucose [Mass/volume] in Serum or Plasma [5-7] 02/25/2025 04:44 PM 163 mg/dL N Blood chemistry[[id number]] Glucose [Mass/volume] in Serum or Plasma [2345-7] 02/25/2025 12:57 PM 149 mg/dL N Blood chemistry[[id number]] Glucose [Mass/volume] in Serum or Plasma [2345-7] 02/25/2025 12:36 PM 274 mg/dL N Blood chemistry[[id number]] Glucose [Mass/volume] in Serum or Plasma [2345-7] 02/25/2025 09:21 AM 213 mg/dL N Blood chemistry[[id number]] Glucose [Mass/volume] in Serum or Plasma [2345-7] 02/24/2025 04:04 PM 395 mg/dL N Blood chemistry[[id number]] Glucose [Mass/volume] in Serum or Plasma [2345-7] 02/24/2025 12:25 PM 376 mg/dL N Glucose [Mass/volume] in Serum or Plasma [2345-7] 02/24/2025 12:25 PM 217 mg/dL N Blood chemistry[[id number]] Glucose [Mass/volume] in Serum or Plasma [2345-7] 02/24/2025 08:32 AM 280 mg/dL N Blood chemistry[[id number]] Glucose [Mass/volume] in Serum or Plasma [2345-7] 02/23/2025 01:27 PM 261 mg/dL N Blood chemistry[[id number]] Glucose [Mass/volume] in Serum or Plasma [2345-7] 02/23/2025 12:57 PM 330 mg/dL N Blood chemistry[[id number]] Glucose [Mass/volume] in Serum or Plasma [2345-7] 02/23/2025 11:38 AM 240 mg/dL N Blood chemistry[[id number]] Glucose [Mass/volume] in Serum or Plasma [2345-7] 02/23/2025 10:10 AM 260 mg/dL N Blood chemistry[[id number]] Glucose [Mass/volume] in Serum or Plasma [2345-7] 02/23/2025 06:08 AM 360 mg/dL N Blood chemistry[[id number]] Glucose [Mass/volume] in Serum or Plasma [2345-7] 02/22/2025 04:12 PM 218 mg/dL N Blood chemistry[[id number]] Glucose [Mass/volume] in Serum or Plasma [2345-7] 02/22/2025 02:57 PM 254 mg/dL N Blood chemistry[[id number]] Glucose [Mass/volume] in Serum or Plasma [2345-7] 02/22/2025 12:49 PM 145 mg/dL N Blood chemistry[[id number]] Glucose [Mass/volume] in Serum or Plasma [2345-7] 02/22/2025 10:18 AM 156 mg/dL N Blood chemistry[[id number]] Glucose [Mass/volume] in Serum or Plasma [2345-7] 02/22/2025 09:15 AM 248 mg/dL N Blood chemistry[[id number]] Glucose [Mass/volume] in Serum or Plasma [2345-7] 02/21/2025 04:57 PM 290 mg/dL N Blood chemistry[[id number]] Glucose [Mass/volume] in Serum or Plasma [2345-7] 02/21/2025 04:01 PM 483 mg/dL N Blood chemistry[[id number]] Glucose [Mass/volume] in Serum or Plasma [2345-7] 02/21/2025 01:05 PM 140 mg/dL N Blood chemistry[[id number]] Glucose [Mass/volume] in Serum or Plasma [2345-7] 02/21/2025 10:18 AM 153 mg/dL N Blood chemistry[[id number]] Glucose [Mass/volume] in Serum or Plasma [2345-7] 02/21/2025 09:38 AM 248 mg/dL N Blood chemistry[[id number]] Glucose [Mass/volume] in Serum or Plasma [2345-7] 02/20/2025 03:39 PM 274 mg/dL N Blood chemistry[[id number]] Glucose [Mass/volume] in Serum or Plasma [2345-7] 02/20/2025 02:42 PM 268 mg/dL N Blood chemistry[[id number]] Glucose [Mass/volume] in Serum or Plasma [2345-7] 02/20/2025 10:45 AM 127 mg/dL N Blood chemistry[[id number]] Glucose [Mass/volume] in Serum or Plasma [2345-7] 02/20/2025 08:51 AM 219 mg/dL N Blood chemistry[[id number]] Glucose [Mass/volume] in Serum or Plasma [2345-7] 02/19/2025 05:37 PM 154 mg/dL N Blood chemistry[[id number]] Glucose [Mass/volume] in Serum or Plasma [2345-7] 02/19/2025 02:25 PM 118 mg/dL N Blood chemistry[[id number]] Glucose [Mass/volume] in Serum or Plasma [2345-7] 02/19/2025 12:46 PM 337 mg/dL N Blood chemistry[[id number]] Glucose [Mass/volume] in Serum or Plasma [2345-7] 02/19/2025 10:15 AM 203 mg/dL N Blood chemistry[[id number]] Glucose [Mass/volume] in Serum or Plasma [2345-7] 02/18/2025 05:05 PM 250 mg/dL N Blood chemistry[[id number]] Glucose [Mass/volume] in Serum or Plasma [2345-7] 02/18/2025 12:34 PM 251 mg/dL N Blood chemistry[[id number]] Glucose [Mass/volume] in Serum or Plasma [2345-7] 02/18/2025 12:25 PM 119 mg/dL N Blood chemistry[[id number]] Glucose [Mass/volume] in Serum or Plasma [2345-7] 02/18/2025 09:30 AM 293 mg/dL N Blood chemistry[[id number]] Glucose [Mass/volume] in Serum or Plasma [2345-7] 02/17/2025 04:13 PM 318 mg/dL N Blood chemistry[[id number]] Glucose [Mass/volume] in Serum or Plasma [2345-7] 02/17/2025 12:51 PM 138 mg/dL N Blood chemistry[[id number]] Glucose [Mass/volume] in Serum or Plasma [2345-7] 02/17/2025 12:22 PM 252 mg/dL N Blood chemistry[[id number]] Glucose [Mass/volume] in Serum or Plasma [2345-7] 02/17/2025 10:02 AM 267 mg/dL N Blood chemistry[[id number]] Glucose [Mass/volume] in Serum or Plasma [2345-7] 02/16/2025 04:09 PM 212 mg/dL N Blood chemistry[[id number]] Glucose [Mass/volume] in Serum or Plasma [2345-7] 02/16/2025 12:54 PM 293 mg/dL N Blood chemistry[[id number]] Glucose [Mass/volume] in Serum or Plasma [2345-7] 02/16/2025 11:46 AM 133 mg/dL N Blood chemistry[[id number]] Glucose [Mass/volume] in Serum or Plasma [2345-7] 02/16/2025 10:22 AM 151 mg/dL N Blood chemistry[[id number]] Glucose [Mass/volume] in Serum or Plasma [2345-7] 02/16/2025 09:35 AM 284 mg/dL N Blood chemistry[[id number]] Glucose [Mass/volume] in Serum or Plasma [2345-7] 02/15/2025 04:11 PM 191 mg/dL N Blood chemistry[[id number]] Glucose [Mass/volume] in Serum or Plasma [2345-7] 02/15/2025 01:36 PM 179 mg/dL N Blood chemistry[[id number]] Glucose [Mass/volume] in Serum or Plasma [2345-7] 02/15/2025 12:58 PM 346 mg/dL N Blood chemistry[[id number]] Glucose [Mass/volume] in Serum or Plasma [2345-7] 02/15/2025 10:07 AM 166 mg/dL N Blood chemistry[[id number]] Glucose [Mass/volume] in Serum or Plasma [2345-7] 02/15/2025 09:19 AM 217 mg/dL N Blood chemistry[[id number]] Glucose [Mass/volume] in Serum or Plasma [2345-7] 02/14/2025 05:28 PM 309 mg/dL N Blood chemistry[[id number]] Glucose [Mass/volume] in Serum or Plasma [2345-7] 02/14/2025 02:21 PM 254 mg/dL N Blood chemistry[[id number]] Glucose [Mass/volume] in Serum or Plasma [2345-7] 02/14/2025 12:05 PM 210 mg/dL N Blood chemistry[[id number]] Glucose [Mass/volume] in Serum or Plasma [2345-7] 02/14/2025 10:24 AM 232 mg/dL N Blood chemistry[[id number]] Glucose [Mass/volume] in Serum or Plasma [2345-7] 02/14/2025 10:22 AM 177 mg/dL N Blood chemistry[[id number]] Glucose [Mass/volume] in Serum or Plasma [2345-7] 02/13/2025 03:46 PM 262 mg/dL N Blood chemistry[[id number]] Glucose [Mass/volume] in Serum or Plasma [2345-7] 02/13/2025 01:15 PM 202 mg/dL N Blood chemistry[[id number]] Glucose [Mass/volume] in Serum or Plasma [2345-7] 02/13/2025 11:45 AM 192 mg/dL N Blood chemistry[[id number]] Glucose [Mass/volume] in Serum or Plasma [2345-7] 02/13/2025 08:57 AM 332 mg/dL N Blood chemistry[[id number]] Glucose [Mass/volume] in Serum or Plasma [2345-7] 02/12/2025 03:36 PM 278 mg/dL N Blood chemistry[[id number]] Glucose [Mass/volume] in Serum or Plasma [2345-7] 02/12/2025 03:13 PM 204 mg/dL N Blood chemistry[[id number]] Glucose [Mass/volume] in Serum or Plasma [2345-7] 02/12/2025 11:36 AM 186 mg/dL N Blood chemistry[[id number]] Glucose [Mass/volume] in Serum or Plasma [2345-7] 02/12/2025 09:08 AM 200 mg/dL N Blood chemistry[[id number]] Glucose [Mass/volume] in Serum or Plasma [2345-7] 02/11/2025 04:12 PM 210 mg/dL N Blood chemistry[[id number]] Glucose [Mass/volume] in Serum or Plasma [2345-7] 02/11/2025 12:03 PM 299 mg/dL N Blood chemistry[[id number]] Glucose [Mass/volume] in Serum or Plasma [2345-7] 02/11/2025 11:12 AM 152 mg/dL N Blood chemistry[[id number]] Glucose [Mass/volume] in Serum or Plasma [2345-7] 02/11/2025 09:12 AM 208 mg/dL N Blood chemistry[[id number]] Glucose [Mass/volume] in Serum or Plasma [2345-7] 02/10/2025 05:10 PM 244 mg/dL N Blood chemistry[[id number]] Glucose [Mass/volume] in Serum or Plasma [2345-7] 02/10/2025 02:52 PM 180 mg/dL N Blood chemistry[[id number]] Glucose [Mass/volume] in Serum or Plasma [2345-7] 02/10/2025 12:33 PM 334 mg/dL N Blood chemistry[[id number]] Glucose [Mass/volume] in Serum or Plasma [2345-7] 02/10/2025 09:49 AM 220 mg/dL N Blood chemistry[[id number]] Glucose [Mass/volume] in Serum or Plasma [2345-7] 02/09/2025 05:37 PM 231 mg/dL N Blood chemistry[[id number]] Glucose [Mass/volume] in Serum or Plasma [2345-7] 02/09/2025 01:17 PM 260 mg/dL N Blood chemistry[[id number]] Glucose [Mass/volume] in Serum or Plasma [2345-7] 02/09/2025 12:40 PM 170 mg/dL N Blood chemistry[[id number]] Glucose [Mass/volume] in Serum or Plasma [2345-7] 02/09/2025 10:00 AM 179 mg/dL N Blood chemistry[[id number]] Glucose [Mass/volume] in Serum or Plasma [2345-7] 02/09/2025 09:12 AM 262 mg/dL N Blood chemistry[[id number]] Glucose [Mass/volume] in Serum or Plasma [2345-7] 02/08/2025 04:57 PM 255 mg/dL N Blood chemistry[[id number]] Glucose [Mass/volume] in Serum or Plasma [2345-7] 02/08/2025 04:22 PM 312 mg/dL N Blood chemistry[[id number]] Glucose [Mass/volume] in Serum or Plasma [2345-7] 02/08/2025 02:33 PM 205 mg/dL N Blood chemistry[[id number]] Glucose [Mass/volume] in Serum or Plasma [2345-7] 02/08/2025 10:32 AM 202 mg/dL N Blood chemistry[[id number]] Glucose [Mass/volume] in Serum or Plasma [2345-7] 02/08/2025 09:55 AM 200 mg/dL N Blood chemistry[[id number]] Glucose [Mass/volume] in Serum or Plasma [2345-7] 02/07/2025 04:25 PM 203 mg/dL N Blood chemistry[[id number]] Glucose [Mass/volume] in Serum or Plasma [2345-7] 02/07/2025 12:43 PM 151 mg/dL N Blood chemistry[[id number]] Glucose [Mass/volume] in Serum or Plasma [2345-7] 02/07/2025 12:15 PM 142 mg/dL N Blood chemistry[[id number]] Glucose [Mass/volume] in Serum or Plasma [2345-7] 02/07/2025 10:18 AM 207 mg/dL N Blood chemistry[[id number]] Glucose [Mass/volume] in Serum or Plasma [2345-7] 02/07/2025 09:23 AM 221 mg/dL N Blood chemistry[[id number]] Glucose [Mass/volume] in Serum or Plasma [2345-7] 02/06/2025 04:07 PM 199 mg/dL N Blood chemistry[[id number]] Glucose [Mass/volume] in Serum or Plasma [2345-7] 02/06/2025 02:03 PM 208 mg/dL N Blood chemistry[[id number]] Glucose [Mass/volume] in Serum or Plasma [2345-7] 02/06/2025 10:36 AM 89 mg/dL N Blood chemistry[[id number]] Glucose [Mass/volume] in Serum or Plasma [2345-7] 02/06/2025 08:41 AM 274 mg/dL N Blood chemistry[[id number]] Glucose [Mass/volume] in Serum or Plasma [2345-7] 02/05/2025 04:00 PM 210 mg/dL N Blood chemistry[[id number]] Glucose [Mass/volume] in Serum or Plasma [2345-7] 02/05/2025 12:47 PM 390 mg/dL N Blood chemistry[[id number]] Glucose [Mass/volume] in Serum or Plasma [2345-7] 02/05/2025 12:28 PM 187 mg/dL N Blood chemistry[[id number]] Glucose [Mass/volume] in Serum or Plasma [2345-7] 02/05/2025 09:15 AM 200 mg/dL N Blood chemistry[[id number]] Glucose [Mass/volume] in Serum or Plasma [2345-7] 02/04/2025 04:58 PM 181 mg/dL N Blood chemistry[[id number]] Glucose [Mass/volume] in Serum or Plasma [2345-7] 02/04/2025 12:58 PM 111 mg/dL N Blood chemistry[[id number]] Glucose [Mass/volume] in Serum or Plasma [2345-7] 02/04/2025 12:19 PM 111 mg/dL N Blood chemistry[[id number]] Glucose [Mass/volume] in Serum or Plasma [2345-7] 02/04/2025 11:58 AM 308 mg/dL N Blood chemistry[[id number]] Glucose [Mass/volume] in Serum or Plasma [2345-7] 02/04/2025 09:57 AM 238 mg/dL N Blood chemistry[[id number]] Glucose [Mass/volume] in Serum or Plasma [2345-7] 02/03/2025 04:57 PM 293 mg/dL N Blood chemistry[[id number]] Glucose [Mass/volume] in Serum or Plasma [2345-7] 02/03/2025 12:25 PM 354 mg/dL N Glucose [Mass/volume] in Serum or Plasma [2345-7] 02/03/2025 12:25 PM 354 mg/dL N Blood chemistry[[id number]] Glucose [Mass/volume] in Serum or Plasma [2345-7] 02/03/2025 11:28 AM 164 mg/dL N Blood chemistry[[id number]] Glucose [Mass/volume] in Serum or Plasma [2345-7] 02/03/2025 09:53 AM 320 mg/dL N Blood chemistry[[id number]] Glucose [Mass/volume] in Serum or Plasma [2345-7] 02/02/2025 03:55 PM 230 mg/dL N Blood chemistry[[id number]] Glucose [Mass/volume] in Serum or Plasma [2345-7] 02/02/2025 12:44 PM 400 mg/dL N Blood chemistry[[id number]] Glucose [Mass/volume] in Serum or Plasma [2345-7] 02/02/2025 11:48 AM 144 mg/dL N Blood chemistry[[id number]] Glucose [Mass/volume] in Serum or Plasma [2345-7] 02/02/2025 10:18 AM 150 mg/dL N Blood chemistry[[id number]] Glucose [Mass/volume] in Serum or Plasma [2345-7] 02/02/2025 09:09 AM 400 mg/dL N Blood chemistry[[id number]] Glucose [Mass/volume] in Serum or Plasma [2345-7] 02/01/2025 05:16 PM 286 mg/dL N Blood chemistry[[id number]] Glucose [Mass/volume] in Serum or Plasma [2345-7] 02/01/2025 04:04 PM 348 mg/dL N Blood chemistry[[id number]] Glucose [Mass/volume] in Serum or Plasma [2345-7] 02/01/2025 12:43 PM 248 mg/dL N Blood chemistry[[id number]] Glucose [Mass/volume] in Serum or Plasma [2345-7] 02/01/2025 10:15 AM 193 mg/dL N Blood chemistry[[id number]] Glucose [Mass/volume] in Serum or Plasma [2345-7] 02/01/2025 09:53 AM 238 mg/dL N Blood chemistry[[id number]] Glucose [Mass/volume] in Serum or Plasma [2345-7] 01/31/2025 04:25 PM 226 mg/dL N Blood chemistry[[id number]] Glucose [Mass/volume] in Serum or Plasma [2345-7] 01/31/2025 02:30 PM 284 mg/dL N Blood chemistry[[id number]] Glucose [Mass/volume] in Serum or Plasma [2345-7] 01/31/2025 01:55 PM 284 mg/dL N Blood chemistry[[id number]] Glucose [Mass/volume] in Serum or Plasma [2345-7] 01/31/2025 01:43 PM 167 mg/dL N Blood chemistry[[id number]] Glucose [Mass/volume] in Serum or Plasma [2345-7] 01/31/2025 10:45 AM 169 mg/dL N Blood chemistry[[id number]] Glucose [Mass/volume] in Serum or Plasma [2345-7] 01/31/2025 09:30 AM 231 mg/dL N Blood chemistry[[id number]] Glucose [Mass/volume] in Serum or Plasma [2345-7] 01/30/2025 04:23 PM 296 mg/dL N Blood chemistry[[id number]] Glucose [Mass/volume] in Serum or Plasma [2345-7] 01/30/2025 03:34 PM 280 mg/dL N Blood chemistry[[id number]] Glucose [Mass/volume] in Serum or Plasma [2345-7] 01/30/2025 11:44 AM 189 mg/dL N Blood chemistry[[id number]] Glucose [Mass/volume] in Serum or Plasma [2345-7] 01/30/2025 10:23 AM 188 mg/dL N Blood chemistry[[id number]] Glucose [Mass/volume] in Serum or Plasma [2345-7] 01/30/2025 08:40 AM 329 mg/dL N Blood chemistry[[id number]] Glucose [Mass/volume] in Serum or Plasma [2345-7] 01/29/2025 03:37 PM 219 mg/dL N Blood chemistry[[id number]] Glucose [Mass/volume] in Serum or Plasma [2345-7] 01/29/2025 02:09 PM 390 mg/dL N Blood chemistry[[id number]] Glucose [Mass/volume] in Serum or Plasma [2345-7] 01/29/2025 11:39 AM 98 mg/dL N Blood chemistry[[id number]] Glucose [Mass/volume] in Serum or Plasma [2345-7] 01/29/2025 08:50 AM 293 mg/dL N Blood chemistry[[id number]] Glucose [Mass/volume] in Serum or Plasma [2345-7] 01/28/2025 04:21 PM 143 mg/dL N Blood chemistry[[id number]] Glucose [Mass/volume] in Serum or Plasma [2345-7] 01/28/2025 12:52 PM 292 mg/dL N Blood chemistry[[id number]] Glucose [Mass/volume] in Serum or Plasma [2345-7] 01/28/2025 11:19 AM 161 mg/dL N Blood chemistry[[id number]] Glucose [Mass/volume] in Serum or Plasma [2345-7] 01/28/2025 09:22 AM 168 mg/dL N Blood chemistry[[id number]] Glucose [Mass/volume] in Serum or Plasma [2345-7] 01/27/2025 12:51 PM 306 mg/dL N Blood chemistry[[id number]] Glucose [Mass/volume] in Serum or Plasma [2345-7] 01/27/2025 11:28 AM 164 mg/dL N Glucose [Mass/volume] in Serum or Plasma [2345-7] 01/27/2025 11:28 AM 164 mg/dL N Blood chemistry[[id number]] Glucose [Mass/volume] in Serum or Plasma [2345-7] 01/27/2025 09:16 AM 247 mg/dL N Blood chemistry[[id number]] Glucose [Mass/volume] in Serum or Plasma [2345-7] 01/26/2025 05:05 PM 243 mg/dL N Blood chemistry[[id number]] Glucose [Mass/volume] in Serum or Plasma [2345-7] 01/26/2025 12:25 PM 226 mg/dL N Blood chemistry[[id number]] Glucose [Mass/volume] in Serum or Plasma [2345-7] 01/26/2025 11:37 AM 122 mg/dL N Blood chemistry[[id number]] Glucose [Mass/volume] in Serum or Plasma [2345-7] 01/26/2025 10:36 AM 171 mg/dL N Blood chemistry[[id number]] Glucose [Mass/volume] in Serum or Plasma [2345-7] 01/26/2025 10:03 AM 188 mg/dL N Blood chemistry[[id number]] Glucose [Mass/volume] in Serum or Plasma [2345-7] 01/25/2025 04:41 PM 320 mg/dL N Blood chemistry[[id number]] Glucose [Mass/volume] in Serum or Plasma [2345-7] 01/25/2025 03:06 PM 290 mg/dL N Blood chemistry[[id number]] Glucose [Mass/volume] in Serum or Plasma [2345-7] 01/25/2025 01:12 PM 224 mg/dL N Blood chemistry[[id number]] Glucose [Mass/volume] in Serum or Plasma [2345-7] 01/25/2025 10:04 AM 203 mg/dL N Blood chemistry[[id number]] Glucose [Mass/volume] in Serum or Plasma [2345-7] 01/25/2025 08:51 AM 199 mg/dL N Blood chemistry[[id number]] Glucose [Mass/volume] in Serum or Plasma [2345-7] 01/24/2025 03:17 PM 317 mg/dL N Blood chemistry[[id number]] Glucose [Mass/volume] in Serum or Plasma [2345-7] 01/24/2025 12:43 PM 225 mg/dL N Blood chemistry[[id number]] Glucose [Mass/volume] in Serum or Plasma [2345-7] 01/24/2025 11:42 AM 337 mg/dL N Blood chemistry[[id number]] Glucose [Mass/volume] in Serum or Plasma [2345-7] 01/24/2025 10:44 AM 184 mg/dL N Blood chemistry[[id number]] Glucose [Mass/volume] in Serum or Plasma [2345-7] 01/24/2025 09:32 AM 250 mg/dL N Blood chemistry[[id number]] Glucose [Mass/volume] in Serum or Plasma [2345-7] 01/23/2025 03:30 PM 304 mg/dL N Blood chemistry[[id number]] Glucose [Mass/volume] in Serum or Plasma [2345-7] 01/23/2025 01:45 PM 284 mg/dL N Blood chemistry[[id number]] Glucose [Mass/volume] in Serum or Plasma [2345-7] 01/23/2025 12:18 PM 156 mg/dL N Blood chemistry[[id number]] Glucose [Mass/volume] in Serum or Plasma [2345-7] 01/23/2025 08:19 AM 322 mg/dL N Blood chemistry[[id number]] Glucose [Mass/volume] in Serum or Plasma [2345-7] 01/22/2025 01:34 PM 197 mg/dL N Blood chemistry[[id number]] Glucose [Mass/volume] in Serum or Plasma [2345-7] 01/22/2025 01:23 PM 169 mg/dL N Blood chemistry[[id number]] Glucose [Mass/volume] in Serum or Plasma [2345-7] 01/22/2025 09:25 AM 219 mg/dL N Blood chemistry[[id number]] Glucose [Mass/volume] in Serum or Plasma [2345-7] 01/22/2025 06:20 AM 258 mg/dL N Blood chemistry[[id number]] Glucose [Mass/volume] in Serum or Plasma [2345-7] 01/21/2025 04:18 PM 220 mg/dL N Blood chemistry[[id number]] Glucose [Mass/volume] in Serum or Plasma [2345-7] 01/21/2025 02:49 PM 132 mg/dL N Blood chemistry[[id number]] Glucose [Mass/volume] in Serum or Plasma [2345-7] 01/21/2025 02:13 PM 213 mg/dL N Blood chemistry[[id number]] Glucose [Mass/volume] in Serum or Plasma [2345-7] 01/21/2025 01:06 PM 215 mg/dL N Blood chemistry[[id number]] Glucose [Mass/volume] in Serum or Plasma [2345-7] 01/21/2025 09:40 AM 179 mg/dL N Blood chemistry[[id number]] Glucose [Mass/volume] in Serum or Plasma [2345-7] 01/20/2025 05:03 PM 150 mg/dL N Blood chemistry[[id number]] Glucose [Mass/volume] in Serum or Plasma [2345-7] 01/20/2025 02:30 PM 138 mg/dL N Blood chemistry[[id number]] Glucose [Mass/volume] in Serum or Plasma [2345-7] 01/20/2025 12:12 PM 233 mg/dL N Blood chemistry[[id number]] Glucose [Mass/volume] in Serum or Plasma [2345-7] 01/20/2025 09:47 AM 209 mg/dL N Blood chemistry[[id number]] Glucose [Mass/volume] in Serum or Plasma [2345-7] 01/19/2025 03:48 PM 319 mg/dL N Blood chemistry[[id number]] Glucose [Mass/volume] in Serum or Plasma [2345-7] 01/19/2025 11:47 AM 155 mg/dL N Blood chemistry[[id number]] Glucose [Mass/volume] in Serum or Plasma [2345-7] 01/19/2025 11:33 AM 230 mg/dL N Blood chemistry[[id number]] Glucose [Mass/volume] in Serum or Plasma [2345-7] 01/19/2025 08:47 AM 344 mg/dL N Blood chemistry[[id number]] Glucose [Mass/volume] in Serum or Plasma [2345-7] 01/18/2025 03:51 PM 239 mg/dL N Blood chemistry[[id number]] Glucose [Mass/volume] in Serum or Plasma [2345-7] 01/18/2025 02:08 PM 243 mg/dL N Blood chemistry[[id number]] Glucose [Mass/volume] in Serum or Plasma [2345-7] 01/18/2025 01:27 PM 272 mg/dL N Blood chemistry[[id number]] Glucose [Mass/volume] in Serum or Plasma [2345-7] 01/18/2025 12:20 PM 272 mg/dL N Blood chemistry[[id number]] Glucose [Mass/volume] in Serum or Plasma [2345-7] 01/18/2025 09:35 AM 206 mg/dL N Blood chemistry[[id number]] Glucose [Mass/volume] in Serum or Plasma [2345-7] 01/18/2025 09:34 AM 206 mg/dL N Blood chemistry[[id number]] Glucose [Mass/volume] in Serum or Plasma [2345-7] 01/17/2025 05:27 PM 181 mg/dL N Blood chemistry[[id number]] Glucose [Mass/volume] in Serum or Plasma [2345-7] 01/17/2025 04:16 PM 198 mg/dL N Blood chemistry[[id number]] Glucose [Mass/volume] in Serum or Plasma [2345-7] 01/17/2025 02:54 PM 225 mg/dL N Blood chemistry[[id number]] Glucose [Mass/volume] in Serum or Plasma [2345-7] 01/17/2025 10:28 AM 177 mg/dL N Glucose [Mass/volume] in Serum or Plasma [2345-7] 01/17/2025 10:28 AM 177 mg/dL N Blood chemistry[[id number]] Glucose [Mass/volume] in Serum or Plasma [2345-7] 01/16/2025 05:44 PM 156 mg/dL N Blood chemistry[[id number]] Glucose [Mass/volume] in Serum or Plasma [2345-7] 01/16/2025 02:25 PM 155 mg/dL N Blood chemistry[[id number]] Glucose [Mass/volume] in Serum or Plasma [2345-7] 01/16/2025 01:11 PM 352 mg/dL N Blood chemistry[[id number]] Glucose [Mass/volume] in Serum or Plasma [2345-7] 01/16/2025 11:23 AM 206 mg/dL N Blood chemistry[[id number]] Glucose [Mass/volume] in Serum or Plasma [2345-7] 01/16/2025 10:33 AM 148 mg/dL N Blood chemistry[[id number]] Glucose [Mass/volume] in Serum or Plasma [2345-7] 01/16/2025 09:33 AM 223 mg/dL N Blood chemistry[[id number]] Glucose [Mass/volume] in Serum or Plasma [2345-7] 01/15/2025 03:12 PM 136 mg/dL N Blood chemistry[[id number]] Glucose [Mass/volume] in Serum or Plasma [2345-7] 01/15/2025 01:40 PM 225 mg/dL N Blood chemistry[[id number]] Glucose [Mass/volume] in Serum or Plasma [2345-7] 01/15/2025 11:24 AM 116 mg/dL N Blood chemistry[[id number]] Glucose [Mass/volume] in Serum or Plasma [2345-7] 01/15/2025 08:17 AM 170 mg/dL N Blood chemistry[[id number]] Glucose [Mass/volume] in Serum or Plasma [2345-7] 01/14/2025 03:53 PM 243 mg/dL N Blood chemistry[[id number]] Glucose [Mass/volume] in Serum or Plasma [2345-7] 01/14/2025 12:18 PM 106 mg/dL N Blood chemistry[[id number]] Glucose [Mass/volume] in Serum or Plasma [2345-7] 01/14/2025 11:50 AM 268 mg/dL N Blood chemistry[[id number]] Glucose [Mass/volume] in Serum or Plasma [2345-7] 01/14/2025 11:34 AM 106 mg/dL N Blood chemistry[[id number]] Glucose [Mass/volume] in Serum or Plasma [2345-7] 01/14/2025 09:09 AM 146 mg/dL N Blood chemistry[[id number]] Glucose [Mass/volume] in Serum or Plasma [2345-7] 01/13/2025 03:17 PM 204 mg/dL N Blood chemistry[[id number]] Glucose [Mass/volume] in Serum or Plasma [2345-7] 01/13/2025 12:25 PM 144 mg/dL N Blood chemistry[[id number]] Glucose [Mass/volume] in Serum or Plasma [2345-7] 01/13/2025 11:36 AM 153 mg/dL N Blood chemistry[[id number]] Glucose [Mass/volume] in Serum or Plasma [2345-7] 01/13/2025 08:41 AM 418 mg/dL N Blood chemistry[[id number]] Glucose [Mass/volume] in Serum or Plasma [2345-7] 01/12/2025 05:20 PM 153 mg/dL N Blood chemistry[[id number]] Glucose [Mass/volume] in Serum or Plasma [2345-7] 01/12/2025 02:41 PM 207 mg/dL N Blood chemistry[[id number]] Glucose [Mass/volume] in Serum or Plasma [2345-7] 01/12/2025 11:47 AM 246 mg/dL N Blood chemistry[[id number]] Glucose [Mass/volume] in Serum or Plasma [2345-7] 01/12/2025 10:35 AM 156 mg/dL N Blood chemistry[[id number]] Glucose [Mass/volume] in Serum or Plasma [2345-7] 01/12/2025 09:11 AM 158 mg/dL N Blood chemistry[[id number]] Glucose [Mass/volume] in Serum or Plasma [2345-7] 01/11/2025 04:25 PM 175 mg/dL N Blood chemistry[[id number]] Glucose [Mass/volume] in Serum or Plasma [2345-7] 01/11/2025 02:17 PM 239 mg/dL N Blood chemistry[[id number]] Glucose [Mass/volume] in Serum or Plasma [2345-7] 01/11/2025 01:23 PM 135 mg/dL N Blood chemistry[[id number]] Glucose [Mass/volume] in Serum or Plasma [2345-7] 01/11/2025 10:18 AM 139 mg/dL N Blood chemistry[[id number]] Glucose [Mass/volume] in Serum or Plasma [2345-7] 01/11/2025 08:51 AM 218 mg/dL N Blood chemistry[[id number]] Glucose [Mass/volume] in Serum or Plasma [2345-7] 01/10/2025 04:14 PM 269 mg/dL N Blood chemistry[[id number]] Glucose [Mass/volume] in Serum or Plasma [2345-7] 01/10/2025 09:01 AM 191 mg/dL N Blood chemistry[[id number]] Glucose [Mass/volume] in Serum or Plasma [2345-7] 12/05/2024 04:18 PM 237 mg/dL N Blood chemistry[[id number]] Glucose [Mass/volume] in Serum or Plasma [2345-7] 12/05/2024 08:12 AM 186 mg/dL N Blood chemistry[[id number]] Glucose [Mass/volume] in Serum or Plasma [2345-7] 12/05/2024 01:50 PM 189 mg/dL N Blood chemistry[[id number]] Glucose [Mass/volume] in Serum or Plasma [2345-7] 12/05/2024 09:41 AM 175 mg/dL N Blood chemistry[[id number]] Glucose [Mass/volume] in Serum or Plasma [2345-7] 12/04/2024 12:20 PM 141 mg/dL N Blood chemistry[[id number]] Glucose [Mass/volume] in Serum or Plasma [2345-7] 12/04/2024 11:27 AM 141 mg/dL N Blood chemistry[[id number]] Glucose [Mass/volume] in Serum or Plasma [2345-7] 12/04/2024 03:41 PM 271 mg/dL N Blood chemistry[[id number]] Glucose [Mass/volume] in Serum or Plasma [2345-7] 12/04/2024 09:07 AM 148 mg/dL N Blood chemistry[[id number]] Glucose [Mass/volume] in Serum or Plasma [2345-7] 12/04/2024 12:50 PM 93 mg/dL N Blood chemistry[[id number]] Glucose [Mass/volume] in Serum or Plasma [2345-7] 12/03/2024 12:47 PM 197 mg/dL N Blood chemistry[[id number]] Glucose [Mass/volume] in Serum or Plasma [2345-7] 12/03/2024 12:45 PM 197 mg/dL N Blood chemistry[[id number]] Glucose [Mass/volume] in Serum or Plasma [2345-7] 12/03/2024 04:15 PM 210 mg/dL N Blood chemistry[[id number]] Glucose [Mass/volume] in Serum or Plasma [2345-7] 12/03/2024 09:03 AM 257 mg/dL N Blood chemistry[[id number]] Glucose [Mass/volume] in Serum or Plasma [2345-7] 12/03/2024 11:21 AM 160 mg/dL N Blood chemistry[[id number]] Glucose [Mass/volume] in Serum or Plasma [2345-7] 12/03/2024 11:20 AM 160 mg/dL N Blood chemistry[[id number]] Glucose [Mass/volume] in Serum or Plasma [2345-7] 12/02/2024 02:38 PM 202 mg/dL N Blood chemistry[[id number]] Glucose [Mass/volume] in Serum or Plasma [2345-7] 12/02/2024 01:41 PM 202 mg/dL N Blood chemistry[[id number]] Glucose [Mass/volume] in Serum or Plasma [2345-7] 12/02/2024 04:10 PM 394 mg/dL N Blood chemistry[[id number]] Glucose [Mass/volume] in Serum or Plasma [2345-7] 12/02/2024 09:32 AM 174 mg/dL N Blood chemistry[[id number]] Glucose [Mass/volume] in Serum or Plasma [2345-7] 12/02/2024 09:30 AM 174 mg/dL N Blood chemistry[[id number]] Glucose [Mass/volume] in Serum or Plasma [2345-7] 12/02/2024 12:43 PM 158 mg/dL N Blood chemistry[[id number]] Glucose [Mass/volume] in Serum or Plasma [2345-7] 12/02/2024 10:02 AM 199 mg/dL N Blood chemistry[[id number]] Glucose [Mass/volume] in Serum or Plasma [2345-7] 12/01/2024 12:18 PM 203 mg/dL N Blood chemistry[[id number]] Glucose [Mass/volume] in Serum or Plasma [2345-7] 12/01/2024 04:42 PM 263 mg/dL N Blood chemistry[[id number]] Glucose [Mass/volume] in Serum or Plasma [2345-7] 12/01/2024 09:51 AM 152 mg/dL N Blood chemistry[[id number]] Glucose [Mass/volume] in Serum or Plasma [2345-7] 12/01/2024 12:25 PM 189 mg/dL N Blood chemistry[[id number]] Glucose [Mass/volume] in Serum or Plasma [2345-7] 12/01/2024 10:46 AM 189 mg/dL N Blood chemistry[[id number]] Glucose [Mass/volume] in Serum or Plasma [2345-7] 11/30/2024 01:47 PM 206 mg/dL N Blood chemistry[[id number]] Glucose [Mass/volume] in Serum or Plasma [2345-7] 11/30/2024 04:12 PM 187 mg/dL N Blood chemistry[[id number]] Glucose [Mass/volume] in Serum or Plasma [2345-7] 11/30/2024 09:03 AM 179 mg/dL N Blood chemistry[[id number]] Glucose [Mass/volume] in Serum or Plasma [2345-7] 11/30/2024 12:07 PM 165 mg/dL N Blood chemistry[[id number]] Glucose [Mass/volume] in Serum or Plasma [2345-7] 11/30/2024 10:12 AM 174 mg/dL N Blood chemistry[[id number]] Glucose [Mass/volume] in Serum or Plasma [2345-7] 11/29/2024 12:39 PM 221 mg/dL N Blood chemistry[[id number]] Glucose [Mass/volume] in Serum or Plasma [2345-7] 11/29/2024 09:03 AM 232 mg/dL N Blood chemistry[[id number]] Glucose [Mass/volume] in Serum or Plasma [2345-7] 11/29/2024 12:57 PM 169 mg/dL N Blood chemistry[[id number]] Glucose [Mass/volume] in Serum or Plasma [2345-7] 11/29/2024 10:16 AM 164 mg/dL N Blood chemistry[[id number]] Glucose [Mass/volume] in Serum or Plasma [2345-7] 11/28/2024 12:16 PM 225 mg/dL N Blood chemistry[[id number]] Glucose [Mass/volume] in Serum or Plasma [2345-7] 11/28/2024 03:32 PM 232 mg/dL N Blood chemistry[[id number]] Glucose [Mass/volume] in Serum or Plasma [2345-7] 11/28/2024 09:18 AM 240 mg/dL N Blood chemistry[[id number]] Glucose [Mass/volume] in Serum or Plasma [2345-7] 11/28/2024 01:16 PM 232 mg/dL N Blood chemistry[[id number]] Glucose [Mass/volume] in Serum or Plasma [2345-7] 11/27/2024 01:00 PM 298 mg/dL N Blood chemistry[[id number]] Glucose [Mass/volume] in Serum or Plasma [2345-7] 11/27/2024 04:45 PM 204 mg/dL N Blood chemistry[[id number]] Glucose [Mass/volume] in Serum or Plasma [2345-7] 11/27/2024 09:45 AM 240 mg/dL N Blood chemistry[[id number]] Glucose [Mass/volume] in Serum or Plasma [2345-7] 11/27/2024 11:21 AM 166 mg/dL N Blood chemistry[[id number]] Glucose [Mass/volume] in Serum or Plasma [2345-7] 11/26/2024 12:11 PM 314 mg/dL N Blood chemistry[[id number]] Glucose [Mass/volume] in Serum or Plasma [2345-7] 11/26/2024 04:21 PM 256 mg/dL N Blood chemistry[[id number]] Glucose [Mass/volume] in Serum or Plasma [2345-7] 11/26/2024 09:22 AM 164 mg/dL N Blood chemistry[[id number]] Glucose [Mass/volume] in Serum or Plasma [2345-7] 11/26/2024 12:44 PM 326 mg/dL N Blood chemistry[[id number]] Glucose [Mass/volume] in Serum or Plasma [2345-7] 11/26/2024 10:04 AM 326 mg/dL N Blood chemistry[[id number]] Glucose [Mass/volume] in Serum or Plasma [2345-7] 11/25/2024 11:51 AM 225 mg/dL N Blood chemistry[[id number]] Glucose [Mass/volume] in Serum or Plasma [2345-7] 11/25/2024 05:19 PM 298 mg/dL N Blood chemistry[[id number]] Glucose [Mass/volume] in Serum or Plasma [2345-7] 11/25/2024 05:18 PM 298 mg/dL N Blood chemistry[[id number]] Glucose [Mass/volume] in Serum or Plasma [2345-7] 11/25/2024 09:49 AM 266 mg/dL N Blood chemistry[[id number]] Glucose [Mass/volume] in Serum or Plasma [2345-7] 11/25/2024 09:47 AM 266 mg/dL N Blood chemistry[[id number]] Glucose [Mass/volume] in Serum or Plasma [2345-7] 11/25/2024 11:53 AM 277 mg/dL N Blood chemistry[[id number]] Glucose [Mass/volume] in Serum or Plasma [2345-7] 11/25/2024 09:50 AM 88 mg/dL N Blood chemistry[[id number]] Glucose [Mass/volume] in Serum or Plasma [2345-7] 11/25/2024 09:40 AM 274 mg/dL N Blood chemistry[[id number]] Glucose [Mass/volume] in Serum or Plasma [2345-7] 11/25/2024 06:06 AM 110 mg/dL N Blood chemistry[[id number]] Glucose [Mass/volume] in Serum or Plasma [2345-7] 11/24/2024 04:21 PM 298 mg/dL N Blood chemistry[[id number]] Glucose [Mass/volume] in Serum or Plasma [2345-7] 11/24/2024 04:20 PM 298 mg/dL N Blood chemistry[[id number]] Glucose [Mass/volume] in Serum or Plasma [2345-7] 11/24/2024 02:55 PM 229 mg/dL N Blood chemistry[[id number]] Glucose [Mass/volume] in Serum or Plasma [2345-7] 11/24/2024 01:29 PM 229 mg/dL N Blood chemistry[[id number]] Glucose [Mass/volume] in Serum or Plasma [2345-7] 11/23/2024 01:36 PM 248 mg/dL N Blood chemistry[[id number]] Glucose [Mass/volume] in Serum or Plasma [2345-7] 11/23/2024 10:46 AM 204 mg/dL N Blood chemistry[[id number]] Glucose [Mass/volume] in Serum or Plasma [2345-7] 11/23/2024 04:43 PM 288 mg/dL N Blood chemistry[[id number]] Glucose [Mass/volume] in Serum or Plasma [2345-7] 11/23/2024 12:05 PM 211 mg/dL N Blood chemistry[[id number]] Glucose [Mass/volume] in Serum or Plasma [2345-7] 11/17/2024 12:40 PM 272 mg/dL N Blood chemistry[[id number]] Glucose [Mass/volume] in Serum or Plasma [2345-7] 11/17/2024 09:21 AM 213 mg/dL N Blood chemistry[[id number]] Glucose [Mass/volume] in Serum or Plasma [2345-7] 11/17/2024 09:20 AM 167 mg/dL N Blood chemistry[[id number]] Glucose [Mass/volume] in Serum or Plasma [2345-7] 11/17/2024 01:13 PM 133 mg/dL N Blood chemistry[[id number]] Glucose [Mass/volume] in Serum or Plasma [2345-7] 11/16/2024 03:28 PM 285 mg/dL N Blood chemistry[[id number]] Glucose [Mass/volume] in Serum or Plasma [2345-7] 11/16/2024 05:13 PM 144 mg/dL N Blood chemistry[[id number]] Glucose [Mass/volume] in Serum or Plasma [2345-7] 11/16/2024 10:04 AM 189 mg/dL N Blood chemistry[[id number]] Glucose [Mass/volume] in Serum or Plasma [2345-7] 11/16/2024 01:24 PM 135 mg/dL N Blood chemistry[[id number]] Glucose [Mass/volume] in Serum or Plasma [2345-7] 11/15/2024 04:03 PM 102 mg/dL N Blood chemistry[[id number]] Glucose [Mass/volume] in Serum or Plasma [2345-7] 11/15/2024 02:41 PM 100 mg/dL N Blood chemistry[[id number]] Glucose [Mass/volume] in Serum or Plasma [2345-7] 11/15/2024 08:56 AM 177 mg/dL N Blood chemistry[[id number]] Glucose [Mass/volume] in Serum or Plasma [2345-7] 11/15/2024 12:36 PM 100 mg/dL N Blood chemistry[[id number]] Glucose [Mass/volume] in Serum or Plasma [2345-7] 11/14/2024 04:53 PM 212 mg/dL N Blood chemistry[[id number]] Glucose [Mass/volume] in Serum or Plasma [2345-7] 11/14/2024 10:44 AM 176 mg/dL N Blood chemistry[[id number]] Glucose [Mass/volume] in Serum or Plasma [2345-7] 11/14/2024 07:41 AM 165 mg/dL N Blood chemistry[[id number]] Glucose [Mass/volume] in Serum or Plasma [2345-7] 11/14/2024 10:04 AM 186 mg/dL N Blood chemistry[[id number]] Glucose [Mass/volume] in Serum or Plasma [2345-7] 11/13/2024 12:00 PM 305 mg/dL N Blood chemistry[[id number]] Glucose [Mass/volume] in Serum or Plasma [2345-7] 11/13/2024 04:40 PM 198 mg/dL N Blood chemistry[[id number]] Glucose [Mass/volume] in Serum or Plasma [2345-7] 11/13/2024 09:44 AM 156 mg/dL N Blood chemistry[[id number]] Glucose [Mass/volume] in Serum or Plasma [2345-7] 11/13/2024 02:31 PM 101 mg/dL N Blood chemistry[[id number]] Glucose [Mass/volume] in Serum or Plasma [2345-7] 11/13/2024 10:07 AM 91 mg/dL N Blood chemistry[[id number]] Glucose [Mass/volume] in Serum or Plasma [2345-7] 11/12/2024 11:33 AM 252 mg/dL N Blood chemistry[[id number]] Glucose [Mass/volume] in Serum or Plasma [2345-7] 11/12/2024 03:53 PM 156 mg/dL N Blood chemistry[[id number]] Glucose [Mass/volume] in Serum or Plasma [2345-7] 11/12/2024 09:49 AM 186 mg/dL N Blood chemistry[[id number]] Glucose [Mass/volume] in Serum or Plasma [2345-7] 11/12/2024 10:13 AM 144 mg/dL N Blood chemistry[[id number]] Glucose [Mass/volume] in Serum or Plasma [2345-7] 11/11/2024 11:00 AM 276 mg/dL N Blood chemistry[[id number]] Glucose [Mass/volume] in Serum or Plasma [2345-7] 11/11/2024 04:38 PM 178 mg/dL N Blood chemistry[[id number]] Glucose [Mass/volume] in Serum or Plasma [2345-7] 11/11/2024 09:28 AM 178 mg/dL N Blood chemistry[[id number]] Glucose [Mass/volume] in Serum or Plasma [2345-7] 11/11/2024 11:46 AM 101 mg/dL N Blood chemistry[[id number]] Glucose [Mass/volume] in Serum or Plasma [2345-7] 11/10/2024 12:48 PM 228 mg/dL N Blood chemistry[[id number]] Glucose [Mass/volume] in Serum or Plasma [2345-7] 11/10/2024 03:06 PM 101 mg/dL N Blood chemistry[[id number]] Glucose [Mass/volume] in Serum or Plasma [2345-7] 11/10/2024 09:17 AM 203 mg/dL N Blood chemistry[[id number]] Glucose [Mass/volume] in Serum or Plasma [2345-7] 11/10/2024 01:44 PM 217 mg/dL N Blood chemistry[[id number]] Glucose [Mass/volume] in Serum or Plasma [2345-7] 11/09/2024 12:36 PM 349 mg/dL N Blood chemistry[[id number]] Glucose [Mass/volume] in Serum or Plasma [2345-7] 11/09/2024 04:40 PM 178 mg/dL N Blood chemistry[[id number]] Glucose [Mass/volume] in Serum or Plasma [2345-7] 11/09/2024 10:05 AM 170 mg/dL N Blood chemistry[[id number]] Glucose [Mass/volume] in Serum or Plasma [2345-7] 11/09/2024 12:27 PM 185 mg/dL N Blood chemistry[[id number]] Glucose [Mass/volume] in Serum or Plasma [2345-7] 11/09/2024 12:19 PM 185 mg/dL N Blood chemistry[[id number]] Glucose [Mass/volume] in Serum or Plasma [2345-7] 11/08/2024 04:53 PM 180 mg/dL N Blood chemistry[[id number]] Glucose [Mass/volume] in Serum or Plasma [2345-7] 11/08/2024 05:02 PM 188 mg/dL N Blood chemistry[[id number]] Glucose [Mass/volume] in Serum or Plasma [2345-7] 11/08/2024 09:41 AM 199 mg/dL N Blood chemistry[[id number]] Glucose [Mass/volume] in Serum or Plasma [2345-7] 11/08/2024 12:07 PM 194 mg/dL N Blood chemistry[[id number]] Glucose [Mass/volume] in Serum or Plasma [2345-7] 11/07/2024 11:57 AM 246 mg/dL N Blood chemistry[[id number]] Glucose [Mass/volume] in Serum or Plasma [2345-7] 11/07/2024 05:10 PM 208 mg/dL N Blood chemistry[[id number]] Glucose [Mass/volume] in Serum or Plasma [2345-7] 11/07/2024 10:18 AM 174 mg/dL N Blood chemistry[[id number]] Glucose [Mass/volume] in Serum or Plasma [2345-7] 11/07/2024 10:09 AM 178 mg/dL N Blood chemistry[[id number]] Glucose [Mass/volume] in Serum or Plasma [2345-7] 11/06/2024 12:08 PM 295 mg/dL N Blood chemistry[[id number]] Glucose [Mass/volume] in Serum or Plasma [2345-7] 11/06/2024 05:19 PM 95 mg/dL N Blood chemistry[[id number]] Glucose [Mass/volume] in Serum or Plasma [2345-7] 11/06/2024 10:34 AM 132 mg/dL N Blood chemistry[[id number]] Glucose [Mass/volume] in Serum or Plasma [2345-7] 11/06/2024 10:10 AM 125 mg/dL N Blood chemistry[[id number]] Glucose [Mass/volume] in Serum or Plasma [2345-7] 11/05/2024 11:56 AM 225 mg/dL N Blood chemistry[[id number]] Glucose [Mass/volume] in Serum or Plasma [2345-7] 11/05/2024 05:52 PM 164 mg/dL N Blood chemistry[[id number]] Glucose [Mass/volume] in Serum or Plasma [2345-7] 11/05/2024 09:52 AM 155 mg/dL N Blood chemistry[[id number]] Glucose [Mass/volume] in Serum or Plasma [2345-7] 11/05/2024 12:18 PM 116 mg/dL N Blood chemistry[[id number]] Glucose [Mass/volume] in Serum or Plasma [2345-7] 11/05/2024 10:06 AM 154 mg/dL N Blood chemistry[[id number]] Glucose [Mass/volume] in Serum or Plasma [2345-7] 11/04/2024 11:39 AM 171 mg/dL N Blood chemistry[[id number]] Glucose [Mass/volume] in Serum or Plasma [2345-7] 11/04/2024 04:47 PM 162 mg/dL N Blood chemistry[[id number]] Glucose [Mass/volume] in Serum or Plasma [2345-7] 11/04/2024 10:17 AM 106 mg/dL N Blood chemistry[[id number]] Glucose [Mass/volume] in Serum or Plasma [2345-7] 11/04/2024 12:26 PM 72 mg/dL N Blood chemistry[[id number]] Glucose [Mass/volume] in Serum or Plasma [2345-7] 11/04/2024 10:21 AM 60 mg/dL N Blood chemistry[[id number]] Glucose [Mass/volume] in Serum or Plasma [2345-7] 11/03/2024 01:17 PM 336 mg/dL N Blood chemistry[[id number]] Glucose [Mass/volume] in Serum or Plasma [2345-7] 11/03/2024 03:34 PM 121 mg/dL N Glucose [Mass/volume] in Serum or Plasma [2345-7] 11/03/2024 03:34 PM 121 mg/dL N Blood chemistry[[id number]] Glucose [Mass/volume] in Serum or Plasma [2345-7] 11/03/2024 09:55 AM 184 mg/dL N Blood chemistry[[id number]] Glucose [Mass/volume] in Serum or Plasma [2345-7] 11/03/2024 12:34 PM 101 mg/dL N Blood chemistry[[id number]] Glucose [Mass/volume] in Serum or Plasma [2345-7] 11/03/2024 10:37 AM 136 mg/dL N Blood chemistry[[id number]] Glucose [Mass/volume] in Serum or Plasma [2345-7] 11/02/2024 12:31 PM 327 mg/dL N Blood chemistry[[id number]] Glucose [Mass/volume] in Serum or Plasma [2345-7] 11/02/2024 09:01 AM 141 mg/dL N Blood chemistry[[id number]] Glucose [Mass/volume] in Serum or Plasma [2345-7] 11/02/2024 10:12 AM 156 mg/dL N Blood chemistry[[id number]] Glucose [Mass/volume] in Serum or Plasma [2345-7] 11/01/2024 02:52 PM 255 mg/dL N Blood chemistry[[id number]] Glucose [Mass/volume] in Serum or Plasma [2345-7] 11/01/2024 04:18 PM 178 mg/dL N Blood chemistry[[id number]] Glucose [Mass/volume] in Serum or Plasma [2345-7] 11/01/2024 09:40 AM 199 mg/dL N Blood chemistry[[id number]] Glucose [Mass/volume] in Serum or Plasma [2345-7] 11/01/2024 11:27 AM 190 mg/dL N Blood chemistry[[id number]] Glucose [Mass/volume] in Serum or Plasma [2345-7] 11/01/2024 10:26 AM 155 mg/dL N Blood chemistry[[id number]] Glucose [Mass/volume] in Serum or Plasma [2345-7] 10/31/2024 12:31 PM 353 mg/dL N Blood chemistry[[id number]] Glucose [Mass/volume] in Serum or Plasma [2345-7] 10/31/2024 10:30 AM 306 mg/dL N Blood chemistry[[id number]] Glucose [Mass/volume] in Serum or Plasma [2345-7] 10/31/2024 06:52 AM 127 mg/dL N Blood chemistry[[id number]] Glucose [Mass/volume] in Serum or Plasma [2345-7] 10/31/2024 02:18 PM 144 mg/dL N Blood chemistry[[id number]] Glucose [Mass/volume] in Serum or Plasma [2345-7] 10/30/2024 12:30 PM 188 mg/dL N Blood chemistry[[id number]] Glucose [Mass/volume] in Serum or Plasma [2345-7] 10/30/2024 04:55 PM 200 mg/dL N Blood chemistry[[id number]] Glucose [Mass/volume] in Serum or Plasma [2345-7] 10/30/2024 09:55 AM 141 mg/dL N Blood chemistry[[id number]] Glucose [Mass/volume] in Serum or Plasma [2345-7] 10/30/2024 10:02 AM 102 mg/dL N Blood chemistry[[id number]] Glucose [Mass/volume] in Serum or Plasma [2345-7] 10/29/2024 11:41 AM 163 mg/dL N Blood chemistry[[id number]] Glucose [Mass/volume] in Serum or Plasma [2345-7] 10/29/2024 04:00 PM 78 mg/dL N Glucose [Mass/volume] in Serum or Plasma [2345-7] 10/29/2024 04:00 PM 78 mg/dL N Blood chemistry[[id number]] Glucose [Mass/volume] in Serum or Plasma [2345-7] 10/29/2024 09:47 AM 100 mg/dL N Blood chemistry[[id number]] Glucose [Mass/volume] in Serum or Plasma [2345-7] 10/29/2024 10:28 AM 71 mg/dL N Blood chemistry[[id number]] Glucose [Mass/volume] in Serum or Plasma [2345-7] 10/28/2024 11:54 AM 302 mg/dL N Blood chemistry[[id number]] Glucose [Mass/volume] in Serum or Plasma [2345-7] 10/28/2024 04:10 PM 164 mg/dL N Glucose [Mass/volume] in Serum or Plasma [2345-7] 10/28/2024 04:10 PM 164 mg/dL N Blood chemistry[[id number]] Glucose [Mass/volume] in Serum or Plasma [2345-7] 10/28/2024 09:37 AM 164 mg/dL N Blood chemistry[[id number]] Glucose [Mass/volume] in Serum or Plasma [2345-7] 10/28/2024 06:14 AM 110 mg/dL N Blood chemistry[[id number]] Glucose [Mass/volume] in Serum or Plasma [2345-7] 10/28/2024 11:55 AM 59 mg/dL N Blood chemistry[[id number]] Glucose [Mass/volume] in Serum or Plasma [2345-7] 10/27/2024 12:39 PM 192 mg/dL N Blood chemistry[[id number]] Glucose [Mass/volume] in Serum or Plasma [2345-7] 10/27/2024 03:27 PM 99 mg/dL N Blood chemistry[[id number]] Glucose [Mass/volume] in Serum or Plasma [2345-7] 10/27/2024 09:34 AM 108 mg/dL N Blood chemistry[[id number]] Glucose [Mass/volume] in Serum or Plasma [2345-7] 10/27/2024 11:55 AM 98 mg/dL N Blood chemistry[[id number]] Glucose [Mass/volume] in Serum or Plasma [2345-7] 10/26/2024 01:24 PM 214 mg/dL N Blood chemistry[[id number]] Glucose [Mass/volume] in Serum or Plasma [2345-7] 10/26/2024 03:58 PM 174 mg/dL N Blood chemistry[[id number]] Glucose [Mass/volume] in Serum or Plasma [2345-7] 10/26/2024 09:37 AM 89 mg/dL N Blood chemistry[[id number]] Glucose [Mass/volume] in Serum or Plasma [2345-7] 10/26/2024 09:33 AM 89 mg/dL N Blood chemistry[[id number]] Glucose [Mass/volume] in Serum or Plasma [2345-7] 10/26/2024 10:16 AM 107 mg/dL N Blood chemistry[[id number]] Glucose [Mass/volume] in Serum or Plasma [2345-7] 10/25/2024 11:38 AM 229 mg/dL N Blood chemistry[[id number]] Glucose [Mass/volume] in Serum or Plasma [2345-7] 10/25/2024 04:19 PM 90 mg/dL N Blood chemistry[[id number]] Glucose [Mass/volume] in Serum or Plasma [2345-7] 10/25/2024 08:41 AM 158 mg/dL N Blood chemistry[[id number]] Glucose [Mass/volume] in Serum or Plasma [2345-7] 10/25/2024 12:19 PM 73 mg/dL N Blood chemistry[[id number]] Glucose [Mass/volume] in Serum or Plasma [2345-7] 10/25/2024 10:16 AM 171 mg/dL N Blood chemistry[[id number]] Glucose [Mass/volume] in Serum or Plasma [2345-7] 10/24/2024 12:27 PM 261 mg/dL N Blood chemistry[[id number]] Glucose [Mass/volume] in Serum or Plasma [2345-7] 10/24/2024 05:16 PM 140 mg/dL N Blood chemistry[[id number]] Glucose [Mass/volume] in Serum or Plasma [2345-7] 10/24/2024 09:30 AM 193 mg/dL N Blood chemistry[[id number]] Glucose [Mass/volume] in Serum or Plasma [2345-7] 10/24/2024 11:26 AM 165 mg/dL N Blood chemistry[[id number]] Glucose [Mass/volume] in Serum or Plasma [2345-7] 10/24/2024 10:07 AM 165 mg/dL N Blood chemistry[[id number]] Glucose [Mass/volume] in Serum or Plasma [2345-7] 10/23/2024 11:40 AM 262 mg/dL N Blood chemistry[[id number]] Glucose [Mass/volume] in Serum or Plasma [2345-7] 10/23/2024 04:13 PM 190 mg/dL N Glucose [Mass/volume] in Serum or Plasma [2345-7] 10/23/2024 04:13 PM 190 mg/dL N Blood chemistry[[id number]] Glucose [Mass/volume] in Serum or Plasma [2345-7] 10/23/2024 08:51 AM 178 mg/dL N Glucose [Mass/volume] in Serum or Plasma [2345-7] 10/23/2024 08:51 AM 178 mg/dL N Blood chemistry[[id number]] Glucose [Mass/volume] in Serum or Plasma [2345-7] 10/23/2024 11:05 AM 112 mg/dL N Blood chemistry[[id number]] Glucose [Mass/volume] in Serum or Plasma [2345-7] 10/23/2024 11:01 AM 112 mg/dL N Blood chemistry[[id number]] Glucose [Mass/volume] in Serum or Plasma [2345-7] 10/22/2024 11:27 AM 211 mg/dL N Blood chemistry[[id number]] Glucose [Mass/volume] in Serum or Plasma [2345-7] 10/22/2024 03:51 PM 129 mg/dL N Glucose [Mass/volume] in Serum or Plasma [2345-7] 10/22/2024 03:51 PM 129 mg/dL N Blood chemistry[[id number]] Glucose [Mass/volume] in Serum or Plasma [2345-7] 10/22/2024 08:22 AM 174 mg/dL N Blood chemistry[[id number]] Glucose [Mass/volume] in Serum or Plasma [2345-7] 10/22/2024 08:19 AM 174 mg/dL N Blood chemistry[[id number]] Glucose [Mass/volume] in Serum or Plasma [2345-7] 10/22/2024 11:29 AM 85 mg/dL N Blood chemistry[[id number]] Glucose [Mass/volume] in Serum or Plasma [2345-7] 10/22/2024 10:14 AM 102 mg/dL N Blood chemistry[[id number]] Glucose [Mass/volume] in Serum or Plasma [2345-7] 10/21/2024 12:02 PM 187 mg/dL N Blood chemistry[[id number]] Glucose [Mass/volume] in Serum or Plasma [2345-7] 10/21/2024 05:15 PM 88 mg/dL N Blood chemistry[[id number]] Glucose [Mass/volume] in Serum or Plasma [2345-7] 10/21/2024 10:35 AM 88 mg/dL N Blood chemistry[[id number]] Glucose [Mass/volume] in Serum or Plasma [2345-7] 10/21/2024 12:14 PM 78 mg/dL N Blood chemistry[[id number]] Glucose [Mass/volume] in Serum or Plasma [2345-7] 10/20/2024 11:46 AM 283 mg/dL N Blood chemistry[[id number]] Glucose [Mass/volume] in Serum or Plasma [2345-7] 10/20/2024 04:05 PM 112 mg/dL N Blood chemistry[[id number]] Glucose [Mass/volume] in Serum or Plasma [2345-7] 10/20/2024 09:38 AM 127 mg/dL N Blood chemistry[[id number]] Glucose [Mass/volume] in Serum or Plasma [2345-7] 10/20/2024 10:18 AM 72 mg/dL N Blood chemistry[[id number]] Glucose [Mass/volume] in Serum or Plasma [2345-7] 10/19/2024 12:35 PM 223 mg/dL N Blood chemistry[[id number]] Glucose [Mass/volume] in Serum or Plasma [2345-7] 10/19/2024 04:57 PM 95 mg/dL N Blood chemistry[[id number]] Glucose [Mass/volume] in Serum or Plasma [2345-7] 10/19/2024 10:14 AM 88 mg/dL N Blood chemistry[[id number]] Glucose [Mass/volume] in Serum or Plasma [2345-7] 10/19/2024 12:40 PM 128 mg/dL N Blood chemistry[[id number]] Glucose [Mass/volume] in Serum or Plasma [2345-7] 10/18/2024 12:24 PM 243 mg/dL N Blood chemistry[[id number]] Glucose [Mass/volume] in Serum or Plasma [2345-7] 10/18/2024 03:43 PM 200 mg/dL N Blood chemistry[[id number]] Glucose [Mass/volume] in Serum or Plasma [2345-7] 10/18/2024 08:32 AM 173 mg/dL N Blood chemistry[[id number]] Glucose [Mass/volume] in Serum or Plasma [2345-7] 10/18/2024 11:54 AM 108 mg/dL N Blood chemistry[[id number]] Glucose [Mass/volume] in Serum or Plasma [2345-7] 10/18/2024 10:51 AM 72 mg/dL N Blood chemistry[[id number]] Glucose [Mass/volume] in Serum or Plasma [2345-7] 10/17/2024 01:05 PM 307 mg/dL N Blood chemistry[[id number]] Glucose [Mass/volume] in Serum or Plasma [2345-7] 10/17/2024 05:57 PM 107 mg/dL N Blood chemistry[[id number]] Glucose [Mass/volume] in Serum or Plasma [2345-7] 10/17/2024 10:11 AM 135 mg/dL N Blood chemistry[[id number]] Glucose [Mass/volume] in Serum or Plasma [2345-7] 10/17/2024 08:21 AM 107 mg/dL N Blood chemistry[[id number]] Glucose [Mass/volume] in Serum or Plasma [2345-7] 10/17/2024 12:14 PM 159 mg/dL N Blood chemistry[[id number]] Glucose [Mass/volume] in Serum or Plasma [2345-7] 10/16/2024 12:55 PM 195 mg/dL N Blood chemistry[[id number]] Glucose [Mass/volume] in Serum or Plasma [2345-7] 10/16/2024 04:39 PM 144 mg/dL N Blood chemistry[[id number]] Glucose [Mass/volume] in Serum or Plasma [2345-7] 10/16/2024 10:04 AM 203 mg/dL N Blood chemistry[[id number]] Glucose [Mass/volume] in Serum or Plasma [2345-7] 10/16/2024 10:02 AM 98 mg/dL N Blood chemistry[[id number]] Glucose [Mass/volume] in Serum or Plasma [2345-7] 10/15/2024 11:33 AM 286 mg/dL N Blood chemistry[[id number]] Glucose [Mass/volume] in Serum or Plasma [2345-7] 10/15/2024 04:44 PM 236 mg/dL N Blood chemistry[[id number]] Glucose [Mass/volume] in Serum or Plasma [2345-7] 10/15/2024 09:26 AM 216 mg/dL N Blood chemistry[[id number]] Glucose [Mass/volume] in Serum or Plasma [2345-7] 10/15/2024 01:17 PM 191 mg/dL N Blood chemistry[[id number]] Glucose [Mass/volume] in Serum or Plasma [2345-7] 10/15/2024 10:18 AM 131 mg/dL N Blood chemistry[[id number]] Glucose [Mass/volume] in Serum or Plasma [2345-7] 10/14/2024 11:39 AM 216 mg/dL N Blood chemistry[[id number]] Glucose [Mass/volume] in Serum or Plasma [2345-7] 10/14/2024 09:38 AM 155 mg/dL N Blood chemistry[[id number]] Glucose [Mass/volume] in Serum or Plasma [2345-7] 10/14/2024 06:34 AM 279 mg/dL N Blood chemistry[[id number]] Glucose [Mass/volume] in Serum or Plasma [2345-7] 10/13/2024 05:55 PM 134 mg/dL N Blood chemistry[[id number]] Glucose [Mass/volume] in Serum or Plasma [2345-7] 10/13/2024 02:20 PM 154 mg/dL N Blood chemistry[[id number]] Glucose [Mass/volume] in Serum or Plasma [2345-7] 10/13/2024 09:45 AM 154 mg/dL N Blood chemistry[[id number]] Glucose [Mass/volume] in Serum or Plasma [2345-7] 10/13/2024 09:54 AM 115 mg/dL N Blood chemistry[[id number]] Glucose [Mass/volume] in Serum or Plasma [2345-7] 10/12/2024 12:29 PM 245 mg/dL N Blood chemistry[[id number]] Glucose [Mass/volume] in Serum or Plasma [2345-7] 10/12/2024 09:05 AM 109 mg/dL N Blood chemistry[[id number]] Glucose [Mass/volume] in Serum or Plasma [2345-7] 10/12/2024 08:56 AM 109 mg/dL N Blood chemistry[[id number]] Glucose [Mass/volume] in Serum or Plasma [2345-7] 10/12/2024 03:18 PM 107 mg/dL N Blood chemistry[[id number]] Glucose [Mass/volume] in Serum or Plasma [2345-7] 10/12/2024 03:16 PM 107 mg/dL N Blood chemistry[[id number]] Glucose [Mass/volume] in Serum or Plasma [2345-7] 10/12/2024 11:57 AM 90 mg/dL N Blood chemistry[[id number]] Glucose [Mass/volume] in Serum or Plasma [2345-7] 10/12/2024 10:32 AM 99 mg/dL N Blood chemistry[[id number]] Glucose [Mass/volume] in Serum or Plasma [2345-7] 10/11/2024 05:12 PM 137 mg/dL N Blood chemistry[[id number]] Glucose [Mass/volume] in Serum or Plasma [2345-7] 10/11/2024 04:20 PM 200 mg/dL N Blood chemistry[[id number]] Glucose [Mass/volume] in Serum or Plasma [2345-7] 10/11/2024 01:22 PM 222 mg/dL N Blood chemistry[[id number]] Glucose [Mass/volume] in Serum or Plasma [2345-7] 10/11/2024 10:34 AM 85 mg/dL N Blood chemistry[[id number]] Glucose [Mass/volume] in Serum or Plasma [2345-7] 10/11/2024 11:10 AM 119 mg/dL N Blood chemistry[[id number]] Glucose [Mass/volume] in Serum or Plasma [2345-7] 10/10/2024 01:41 PM 236 mg/dL N Blood chemistry[[id number]] Glucose [Mass/volume] in Serum or Plasma [2345-7] 10/10/2024 10:04 AM 170 mg/dL N Blood chemistry[[id number]] Glucose [Mass/volume] in Serum or Plasma [2345-7] 10/10/2024 05:59 PM 125 mg/dL N Blood chemistry[[id number]] Glucose [Mass/volume] in Serum or Plasma [2345-7] 10/10/2024 02:01 PM 132 mg/dL N Blood chemistry[[id number]] Glucose [Mass/volume] in Serum or Plasma [2345-7] 10/10/2024 11:15 AM 157 mg/dL N Blood chemistry[[id number]] Glucose [Mass/volume] in Serum or Plasma [2345-7] 10/09/2024 12:45 PM 337 mg/dL N Blood chemistry[[id number]] Glucose [Mass/volume] in Serum or Plasma [2345-7] 10/09/2024 11:22 AM 167 mg/dL N Blood chemistry[[id number]] Glucose [Mass/volume] in Serum or Plasma [2345-7] 10/09/2024 02:57 PM 142 mg/dL N Blood chemistry[[id number]] Glucose [Mass/volume] in Serum or Plasma [2345-7] 10/09/2024 11:11 AM 142 mg/dL N Blood chemistry[[id number]] Glucose [Mass/volume] in Serum or Plasma [2345-7] 10/09/2024 07:23 AM 123 mg/dL N Blood chemistry[[id number]] Glucose [Mass/volume] in Serum or Plasma [2345-7] 10/08/2024 12:39 PM 219 mg/dL N Blood chemistry[[id number]] Glucose [Mass/volume] in Serum or Plasma [2345-7] 10/08/2024 10:04 AM 259 mg/dL N Blood chemistry[[id number]] Glucose [Mass/volume] in Serum or Plasma [2345-7] 10/08/2024 05:29 PM 109 mg/dL N Glucose [Mass/volume] in Serum or Plasma [2345-7] 10/08/2024 05:29 PM 109 mg/dL N Blood chemistry[[id number]] Glucose [Mass/volume] in Serum or Plasma [2345-7] 10/08/2024 11:19 AM 105 mg/dL N Blood chemistry[[id number]] Glucose [Mass/volume] in Serum or Plasma [2345-7] 10/07/2024 12:39 PM 188 mg/dL N Blood chemistry[[id number]] Glucose [Mass/volume] in Serum or Plasma [2345-7] 10/07/2024 11:24 AM 169 mg/dL N Blood chemistry[[id number]] Glucose [Mass/volume] in Serum or Plasma [2345-7] 10/07/2024 06:16 PM 96 mg/dL N Blood chemistry[[id number]] Glucose [Mass/volume] in Serum or Plasma [2345-7] 10/07/2024 01:49 PM 65 mg/dL N Blood chemistry[[id number]] Glucose [Mass/volume] in Serum or Plasma [2345-7] 10/06/2024 06:12 PM 91 mg/dL N Blood chemistry[[id number]] Glucose [Mass/volume] in Serum or Plasma [2345-7] 10/06/2024 01:00 PM 75 mg/dL N Blood chemistry[[id number]] Glucose [Mass/volume] in Serum or Plasma [2345-7] 10/06/2024 12:46 PM 270 mg/dL N Blood chemistry[[id number]] Glucose [Mass/volume] in Serum or Plasma [2345-7] 10/06/2024 09:59 AM 148 mg/dL N Blood chemistry[[id number]] Glucose [Mass/volume] in Serum or Plasma [2345-7] 10/06/2024 11:02 AM 68 mg/dL N Blood chemistry[[id number]] Glucose [Mass/volume] in Serum or Plasma [2345-7] 10/05/2024 01:45 PM 223 mg/dL N Blood chemistry[[id number]] Glucose [Mass/volume] in Serum or Plasma [2345-7] 10/05/2024 10:53 AM 189 mg/dL N Blood chemistry[[id number]] Glucose [Mass/volume] in Serum or Plasma [2345-7] 10/05/2024 06:12 PM 150 mg/dL N Blood chemistry[[id number]] Glucose [Mass/volume] in Serum or Plasma [2345-7] 10/05/2024 11:18 AM 100 mg/dL N Blood chemistry[[id number]] Glucose [Mass/volume] in Serum or Plasma [2345-7] 10/04/2024 03:19 PM 362 mg/dL N Blood chemistry[[id number]] Glucose [Mass/volume] in Serum or Plasma [2345-7] 10/04/2024 10:26 AM 279 mg/dL N Blood chemistry[[id number]] Glucose [Mass/volume] in Serum or Plasma [2345-7] 10/04/2024 04:28 PM 208 mg/dL N Blood chemistry[[id number]] Glucose [Mass/volume] in Serum or Plasma [2345-7] 10/04/2024 11:39 AM 190 mg/dL N Blood chemistry[[id number]] Glucose [Mass/volume] in Serum or Plasma [2345-7] 10/03/2024 02:21 PM 274 mg/dL N Blood chemistry[[id number]] Glucose [Mass/volume] in Serum or Plasma [2345-7] 10/03/2024 02:06 PM 140 mg/dL N Blood chemistry[[id number]] Glucose [Mass/volume] in Serum or Plasma [2345-7] 10/03/2024 10:57 AM 221 mg/dL N Blood chemistry[[id number]] Glucose [Mass/volume] in Serum or Plasma [2345-7] 10/03/2024 09:44 AM 137 mg/dL N Blood chemistry[[id number]] Glucose [Mass/volume] in Serum or Plasma [2345-7] 10/02/2024 03:03 PM 285 mg/dL N Blood chemistry[[id number]] Glucose [Mass/volume] in Serum or Plasma [2345-7] 10/02/2024 11:31 AM 143 mg/dL N Blood chemistry[[id number]] Glucose [Mass/volume] in Serum or Plasma [2345-7] 10/02/2024 06:34 PM 217 mg/dL N Blood chemistry[[id number]] Glucose [Mass/volume] in Serum or Plasma [2345-7] 10/02/2024 01:55 PM 220 mg/dL N Blood chemistry[[id number]] Glucose [Mass/volume] in Serum or Plasma [2345-7] 10/01/2024 06:07 PM 171 mg/dL N Blood chemistry[[id number]] Glucose [Mass/volume] in Serum or Plasma [2345-7] 10/01/2024 12:58 PM 145 mg/dL N Blood chemistry[[id number]] Glucose [Mass/volume] in Serum or Plasma [2345-7] 10/01/2024 12:39 PM 259 mg/dL N Blood chemistry[[id number]] Glucose [Mass/volume] in Serum or Plasma [2345-7] 10/01/2024 11:09 AM 134 mg/dL N Blood chemistry[[id number]] Glucose [Mass/volume] in Serum or Plasma [2345-7] 10/01/2024 11:01 AM 145 mg/dL N Blood chemistry[[id number]] Glucose [Mass/volume] in Serum or Plasma [2345-7] 09/30/2024 12:51 PM 355 mg/dL N Blood chemistry[[id number]] Glucose [Mass/volume] in Serum or Plasma [2345-7] 09/30/2024 11:41 AM 169 mg/dL N Blood chemistry[[id number]] Glucose [Mass/volume] in Serum or Plasma [2345-7] 09/30/2024 02:42 PM 157 mg/dL N Blood chemistry[[id number]] Glucose [Mass/volume] in Serum or Plasma [2345-7] 09/30/2024 07:08 AM 146 mg/dL N Blood chemistry[[id number]] Glucose [Mass/volume] in Serum or Plasma [2345-7] 09/29/2024 04:24 PM 145 mg/dL N Blood chemistry[[id number]] Glucose [Mass/volume] in Serum or Plasma [2345-7] 09/29/2024 03:01 PM 83 mg/dL N Blood chemistry[[id number]] Glucose [Mass/volume] in Serum or Plasma [2345-7] 09/29/2024 12:58 PM 434 mg/dL N Blood chemistry[[id number]] Glucose [Mass/volume] in Serum or Plasma [2345-7] 09/29/2024 11:28 AM 79 mg/dL N Blood chemistry[[id number]] Glucose [Mass/volume] in Serum or Plasma [2345-7] 09/29/2024 10:21 AM 147 mg/dL N Blood chemistry[[id number]] Glucose [Mass/volume] in Serum or Plasma [2345-7] 09/28/2024 01:19 PM 327 mg/dL N Blood chemistry[[id number]] Glucose [Mass/volume] in Serum or Plasma [2345-7] 09/28/2024 10:52 AM 199 mg/dL N Blood chemistry[[id number]] Glucose [Mass/volume] in Serum or Plasma [2345-7] 09/28/2024 06:39 PM 86 mg/dL N Blood chemistry[[id number]] Glucose [Mass/volume] in Serum or Plasma [2345-7] 09/28/2024 01:31 PM 78 mg/dL N Blood chemistry[[id number]] Glucose [Mass/volume] in Serum or Plasma [2345-7] 09/28/2024 11:04 AM 47 mg/dL N Blood chemistry[[id number]] Glucose [Mass/volume] in Serum or Plasma [2345-7] 09/27/2024 06:45 PM 146 mg/dL N Blood chemistry[[id number]] Glucose [Mass/volume] in Serum or Plasma [2345-7] 09/27/2024 06:42 PM 146 mg/dL N Glucose [Mass/volume] in Serum or Plasma [2345-7] 09/27/2024 06:42 PM 75 mg/dL N Blood chemistry[[id number]] Glucose [Mass/volume] in Serum or Plasma [2345-7] 09/27/2024 01:26 PM 406 mg/dL N Blood chemistry[[id number]] Glucose [Mass/volume] in Serum or Plasma [2345-7] 09/27/2024 11:15 AM 112 mg/dL N Blood chemistry[[id number]] Glucose [Mass/volume] in Serum or Plasma [2345-7] 09/26/2024 02:03 PM 243 mg/dL N Blood chemistry[[id number]] Glucose [Mass/volume] in Serum or Plasma [2345-7] 09/26/2024 11:28 AM 261 mg/dL N Blood chemistry[[id number]] Glucose [Mass/volume] in Serum or Plasma [2345-7] 09/26/2024 06:16 PM 195 mg/dL N Blood chemistry[[id number]] Glucose [Mass/volume] in Serum or Plasma [2345-7] 09/26/2024 01:14 PM 116 mg/dL N Blood chemistry[[id number]] Glucose [Mass/volume] in Serum or Plasma [2345-7] 09/26/2024 01:09 PM 116 mg/dL N Blood chemistry[[id number]] Glucose [Mass/volume] in Serum or Plasma [2345-7] 09/25/2024 12:28 PM 203 mg/dL N Blood chemistry[[id number]] Glucose [Mass/volume] in Serum or Plasma [2345-7] 09/25/2024 05:51 PM 158 mg/dL N Blood chemistry[[id number]] Glucose [Mass/volume] in Serum or Plasma [2345-7] 09/25/2024 01:11 PM 107 mg/dL N Blood chemistry[[id number]] Glucose [Mass/volume] in Serum or Plasma [2345-7] 09/24/2024 01:18 PM 306 mg/dL N Blood chemistry[[id number]] Glucose [Mass/volume] in Serum or Plasma [2345-7] 09/24/2024 12:03 PM 176 mg/dL N Blood chemistry[[id number]] Glucose [Mass/volume] in Serum or Plasma [2345-7] 09/24/2024 05:29 PM 189 mg/dL N Blood chemistry[[id number]] Glucose [Mass/volume] in Serum or Plasma [2345-7] 09/24/2024 02:02 PM 98 mg/dL N Blood chemistry[[id number]] Glucose [Mass/volume] in Serum or Plasma [2345-7] 09/23/2024 01:03 PM 231 mg/dL N Blood chemistry[[id number]] Glucose [Mass/volume] in Serum or Plasma [2345-7] 09/23/2024 09:30 AM 247 mg/dL N Blood chemistry[[id number]] Glucose [Mass/volume] in Serum or Plasma [2345-7] 09/23/2024 09:29 AM 247 mg/dL N Blood chemistry[[id number]] Glucose [Mass/volume] in Serum or Plasma [2345-7] 09/23/2024 01:20 PM 57 mg/dL N Blood chemistry[[id number]] Glucose [Mass/volume] in Serum or Plasma [2345-7] 09/23/2024 07:47 AM 93 mg/dL N Blood chemistry[[id number]] Glucose [Mass/volume] in Serum or Plasma [2345-7] 09/22/2024 06:14 PM 94 mg/dL N Blood chemistry[[id number]] Glucose [Mass/volume] in Serum or Plasma [2345-7] 09/22/2024 01:44 PM 166 mg/dL N Blood chemistry[[id number]] Glucose [Mass/volume] in Serum or Plasma [2345-7] 09/22/2024 01:38 PM 110 mg/dL N Blood chemistry[[id number]] Glucose [Mass/volume] in Serum or Plasma [2345-7] 09/22/2024 10:25 AM 81 mg/dL N Blood chemistry[[id number]] Glucose [Mass/volume] in Serum or Plasma [2345-7] 09/21/2024 01:43 PM 183 mg/dL N Blood chemistry[[id number]] Glucose [Mass/volume] in Serum or Plasma [2345-7] 09/21/2024 11:46 AM 99 mg/dL N Blood chemistry[[id number]] Glucose [Mass/volume] in Serum or Plasma [2345-7] 09/21/2024 02:25 PM 105 mg/dL N Blood chemistry[[id number]] Glucose [Mass/volume] in Serum or Plasma [2345-7] 09/21/2024 11:45 AM 134 mg/dL N Blood chemistry[[id number]] Glucose [Mass/volume] in Serum or Plasma [2345-7] 09/21/2024 08:27 AM 85 mg/dL N Blood chemistry[[id number]] Glucose [Mass/volume] in Serum or Plasma [2345-7] 09/20/2024 05:22 PM 94 mg/dL N Blood chemistry[[id number]] Glucose [Mass/volume] in Serum or Plasma [2345-7] 09/20/2024 01:35 PM 217 mg/dL N Blood chemistry[[id number]] Glucose [Mass/volume] in Serum or Plasma [2345-7] 09/20/2024 01:08 PM 87 mg/dL N Blood chemistry[[id number]] Glucose [Mass/volume] in Serum or Plasma [2345-7] 09/20/2024 11:27 AM 114 mg/dL N Blood chemistry[[id number]] Glucose [Mass/volume] in Serum or Plasma [2345-7] 09/19/2024 02:27 PM 200 mg/dL N Blood chemistry[[id number]] Glucose [Mass/volume] in Serum or Plasma [2345-7] 09/19/2024 11:01 AM 145 mg/dL N Blood chemistry[[id number]] Glucose [Mass/volume] in Serum or Plasma [2345-7] 09/19/2024 05:57 PM 137 mg/dL N Blood chemistry[[id number]] Glucose [Mass/volume] in Serum or Plasma [2345-7] 09/19/2024 02:26 PM 104 mg/dL N Blood chemistry[[id number]] Glucose [Mass/volume] in Serum or Plasma [2345-7] 09/18/2024 05:10 PM 155 mg/dL N Blood chemistry[[id number]] Glucose [Mass/volume] in Serum or Plasma [2345-7] 09/18/2024 02:29 PM 81 mg/dL N Blood chemistry[[id number]] Glucose [Mass/volume] in Serum or Plasma [2345-7] 09/18/2024 01:54 PM 297 mg/dL N Blood chemistry[[id number]] Glucose [Mass/volume] in Serum or Plasma [2345-7] 09/18/2024 11:33 AM 157 mg/dL N Blood chemistry[[id number]] Glucose [Mass/volume] in Serum or Plasma [2345-7] 09/17/2024 05:00 PM 134 mg/dL N Blood chemistry[[id number]] Glucose [Mass/volume] in Serum or Plasma [2345-7] 09/17/2024 02:52 PM 141 mg/dL N Blood chemistry[] Glucose [Mass/volume] in Serum or Plasma [2345-7] 09/17/2024 12:43 PM 351 mg/dL N Blood chemistry[] Glucose [Mass/volume] in Serum or Plasma [2345-7] 09/17/2024 11:06 AM 114 mg/dL N Blood chemistry[] Glucose [Mass/volume] in Serum or Plasma [2345-7] 09/17/2024 11:00 AM 179 mg/dL N Blood chemistry[] Glucose [Mass/volume] in Serum or Plasma [2345-7] 09/16/2024 06:00 PM 155 mg/dL N Blood chemistry[] Glucose [Mass/volume] in Serum or Plasma [2345-7] 09/16/2024 01:10 PM 102 mg/dL N Blood chemistry[] Glucose [Mass/volume] in Serum or Plasma [2345-7] 09/16/2024 01:09 PM 102 mg/dL N Blood chemistry[[id number]] Glucose [Mass/volume] in Serum or Plasma [2345-7] 09/16/2024 12:33 PM 208 mg/dL N Blood chemistry[[id number]] Glucose [Mass/volume] in Serum or Plasma [2345-7] 09/16/2024 10:37 AM 143 mg/dL N Blood chemistry[[id number]] Glucose [Mass/volume] in Serum or Plasma [2345-7] 09/15/2024 02:23 PM 229 mg/dL N Blood chemistry[[id number]] Glucose [Mass/volume] in Serum or Plasma [2345-7] 09/15/2024 06:15 PM 119 mg/dL N Blood chemistry[[id number]] Glucose [Mass/volume] in Serum or Plasma [2345-7] 09/15/2024 12:43 PM 66 mg/dL N Blood chemistry[[id number]] Glucose [Mass/volume] in Serum or Plasma [2345-7] 09/15/2024 10:38 AM 133 mg/dL N Blood chemistry[[id number]] Glucose [Mass/volume] in Serum or Plasma [2345-7] 09/14/2024 05:59 PM 126 mg/dL N Blood chemistry[[id number]] Glucose [Mass/volume] in Serum or Plasma [2345-7] 09/14/2024 03:37 PM 81 mg/dL N Blood chemistry[[id number]] Glucose [Mass/volume] in Serum or Plasma [2345-7] 09/14/2024 01:44 PM 228 mg/dL N Blood chemistry[[id number]] Glucose [Mass/volume] in Serum or Plasma [2345-7] 09/14/2024 10:58 AM 148 mg/dL N Blood chemistry[[id number]] Glucose [Mass/volume] in Serum or Plasma [2345-7] 09/13/2024 02:31 PM 283 mg/dL N Blood chemistry[[id number]] Glucose [Mass/volume] in Serum or Plasma [2345-7] 09/13/2024 12:20 PM 141 mg/dL N Blood chemistry[[id number]] Glucose [Mass/volume] in Serum or Plasma [2345-7] 09/13/2024 06:38 PM 219 mg/dL N Blood chemistry[[id number]] Glucose [Mass/volume] in Serum or Plasma [2345-7] 09/13/2024 02:58 PM 76 mg/dL N Blood chemistry[[id number]] Glucose [Mass/volume] in Serum or Plasma [2345-7] 09/13/2024 11:24 AM 96 mg/dL N Blood chemistry[[id number]] Glucose [Mass/volume] in Serum or Plasma [2345-7] 09/12/2024 02:42 PM 238 mg/dL N Blood chemistry[[id number]] Glucose [Mass/volume] in Serum or Plasma [2345-7] 09/12/2024 06:52 PM 137 mg/dL N Blood chemistry[[id number]] Glucose [Mass/volume] in Serum or Plasma [2345-7] 09/12/2024 01:06 PM 173 mg/dL N Blood chemistry[[id number]] Glucose [Mass/volume] in Serum or Plasma [2345-7] 09/12/2024 11:22 AM 232 mg/dL N Blood chemistry[[id number]] Glucose [Mass/volume] in Serum or Plasma [2345-7] 09/12/2024 10:02 AM 202 mg/dL N Blood chemistry[[id number]] Glucose [Mass/volume] in Serum or Plasma [2345-7] 09/11/2024 12:51 PM 227 mg/dL N Blood chemistry[[id number]] Glucose [Mass/volume] in Serum or Plasma [2345-7] 09/11/2024 06:10 PM 128 mg/dL N Blood chemistry[[id number]] Glucose [Mass/volume] in Serum or Plasma [2345-7] 09/11/2024 02:05 PM 126 mg/dL N Blood chemistry[[id number]] Glucose [Mass/volume] in Serum or Plasma [2345-7] 09/11/2024 11:19 AM 144 mg/dL N Blood chemistry[[id number]] Glucose [Mass/volume] in Serum or Plasma [2345-7] 09/11/2024 11:04 AM 130 mg/dL N Blood chemistry[[id number]] Glucose [Mass/volume] in Serum or Plasma [2345-7] 09/10/2024 12:40 PM 180 mg/dL N Blood chemistry[[id number]] Glucose [Mass/volume] in Serum or Plasma [2345-7] 09/10/2024 06:11 PM 117 mg/dL N Blood chemistry[[id number]] Glucose [Mass/volume] in Serum or Plasma [2345-7] 09/10/2024 01:08 PM 118 mg/dL N Blood chemistry[[id number]] Glucose [Mass/volume] in Serum or Plasma [2345-7] 09/10/2024 11:15 AM 162 mg/dL N Blood chemistry[[id number]] Glucose [Mass/volume] in Serum or Plasma [2345-7] 09/10/2024 11:11 AM 113 mg/dL N Blood chemistry[[id number]] Glucose [Mass/volume] in Serum or Plasma [2345-7] 09/09/2024 12:56 PM 178 mg/dL N Blood chemistry[[id number]] Glucose [Mass/volume] in Serum or Plasma [2345-7] 09/09/2024 06:06 PM 87 mg/dL N Blood chemistry[[id number]] Glucose [Mass/volume] in Serum or Plasma [2345-7] 09/09/2024 01:40 PM 84 mg/dL N Blood chemistry[[id number]] Glucose [Mass/volume] in Serum or Plasma [2345-7] 09/09/2024 10:34 AM 119 mg/dL N Blood chemistry[[id number]] Glucose [Mass/volume] in Serum or Plasma [2345-7] 09/08/2024 06:07 PM 82 mg/dL N Blood chemistry[[id number]] Glucose [Mass/volume] in Serum or Plasma [2345-7] 09/08/2024 03:16 PM 51 mg/dL N Blood chemistry[[id number]] Glucose [Mass/volume] in Serum or Plasma [2345-7] 09/08/2024 02:12 PM 278 mg/dL N Blood chemistry[[id number]] Glucose [Mass/volume] in Serum or Plasma [2345-7] 09/08/2024 11:08 AM 121 mg/dL N Blood chemistry[[id number]] Glucose [Mass/volume] in Serum or Plasma [2345-7] 09/07/2024 02:10 PM 215 mg/dL N Blood chemistry[[id number]] Glucose [Mass/volume] in Serum or Plasma [2345-7] 09/07/2024 11:25 AM 170 mg/dL N Blood chemistry[[id number]] Glucose [Mass/volume] in Serum or Plasma [2345-7] 09/07/2024 06:12 PM 110 mg/dL N Blood chemistry[[id number]] Glucose [Mass/volume] in Serum or Plasma [2345-7] 09/07/2024 02:37 PM 75 mg/dL N Blood chemistry[[id number]] Glucose [Mass/volume] in Serum or Plasma [2345-7] 09/07/2024 02:35 PM 75 mg/dL N Blood chemistry[[id number]] Glucose [Mass/volume] in Serum or Plasma [2345-7] 09/06/2024 02:13 PM 262 mg/dL N Blood chemistry[[id number]] Glucose [Mass/volume] in Serum or Plasma [2345-7] 09/06/2024 10:36 AM 171 mg/dL N Blood chemistry[[id number]] Glucose [Mass/volume] in Serum or Plasma [2345-7] 09/06/2024 06:21 PM 200 mg/dL N Blood chemistry[[id number]] Glucose [Mass/volume] in Serum or Plasma [2345-7] 09/06/2024 02:59 PM 225 mg/dL N Blood chemistry[[id number]] Glucose [Mass/volume] in Serum or Plasma [2345-7] 09/05/2024 03:45 PM 201 mg/dL N Blood chemistry[[id number]] Glucose [Mass/volume] in Serum or Plasma [2345-7] 09/05/2024 12:33 PM 177 mg/dL N Blood chemistry[[id number]] Glucose [Mass/volume] in Serum or Plasma [2345-7] 09/05/2024 03:35 PM 131 mg/dL N Glucose [Mass/volume] in Serum or Plasma [2345-7] 09/05/2024 03:35 PM 131 mg/dL N Blood chemistry[[id number]] Glucose [Mass/volume] in Serum or Plasma [2345-7] 09/05/2024 07:10 AM 169 mg/dL N Blood chemistry[[id number]] Glucose [Mass/volume] in Serum or Plasma [2345-7] 09/04/2024 05:38 PM 185 mg/dL N Blood chemistry[[id number]] Glucose [Mass/volume] in Serum or Plasma [2345-7] 09/04/2024 03:07 PM 52 mg/dL N Blood chemistry[[id number]] Glucose [Mass/volume] in Serum or Plasma [2345-7] 09/04/2024 01:31 PM 52 mg/dL N Blood chemistry[[id number]] Glucose [Mass/volume] in Serum or Plasma [2345-7] 09/04/2024 11:09 AM 119 mg/dL N Blood chemistry[[id number]] Glucose [Mass/volume] in Serum or Plasma [2345-7] 09/04/2024 11:08 AM 62 mg/dL N Blood chemistry[[id number]] Glucose [Mass/volume] in Serum or Plasma [2345-7] 09/04/2024 11:07 AM 119 mg/dL N Glucose [Mass/volume] in Serum or Plasma [2345-7] 09/04/2024 11:07 AM 62 mg/dL N Blood chemistry[[id number]] Glucose [Mass/volume] in Serum or Plasma [2345-7] 09/03/2024 02:26 PM 210 mg/dL N Blood chemistry[[id number]] Glucose [Mass/volume] in Serum or Plasma [2345-7] 09/03/2024 05:05 PM 115 mg/dL N Blood chemistry[[id number]] Glucose [Mass/volume] in Serum or Plasma [2345-7] 09/03/2024 05:03 PM 57 mg/dL N Blood chemistry[[id number]] Glucose [Mass/volume] in Serum or Plasma [2345-7] 09/03/2024 12:26 PM 174 mg/dL N Blood chemistry[[id number]] Glucose [Mass/volume] in Serum or Plasma [2345-7] 09/03/2024 08:36 AM 115 mg/dL N Blood chemistry[[id number]] Glucose [Mass/volume] in Serum or Plasma [2345-7] 09/02/2024 01:01 PM 148 mg/dL N Blood chemistry[[id number]] Glucose [Mass/volume] in Serum or Plasma [2345-7] 09/02/2024 06:38 PM 201 mg/dL N Blood chemistry[[id number]] Glucose [Mass/volume] in Serum or Plasma [2345-7] 09/02/2024 12:36 PM 174 mg/dL N Blood chemistry[[id number]] Glucose [Mass/volume] in Serum or Plasma [2345-7] 09/02/2024 11:10 AM 87 mg/dL N Blood chemistry[[id number]] Glucose [Mass/volume] in Serum or Plasma [2345-7] 09/01/2024 01:27 PM 187 mg/dL N Blood chemistry[[id number]] Glucose [Mass/volume] in Serum or Plasma [2345-7] 09/01/2024 05:43 PM 86 mg/dL N Blood chemistry[[id number]] Glucose [Mass/volume] in Serum or Plasma [2345-7] 09/01/2024 01:06 PM 73 mg/dL N Blood chemistry[[id number]] Glucose [Mass/volume] in Serum or Plasma [2344-7] 09/01/2024 12:44 PM 268 mg/dL N Glucose [Mass/volume] in Serum or Plasma [2345-7] 09/01/2024 12:44 PM 268 mg/dL N Blood chemistry[[id number]] Glucose [Mass/volume] in Serum or Plasma [5-7] 08/31/2024 05:32 PM 135 mg/dL N Glucose [Mass/volume] in Serum or Plasma [5-7] 08/31/2024 05:32 PM 135 mg/dL N Blood chemistry[[id number]] Glucose [Mass/volume] in Serum or Plasma [2344-7] 08/31/2024 05:07 PM 67 mg/dL N Blood chemistry[[id number]] Glucose [Mass/volume] in Serum or Plasma [2344-7] 08/31/2024 03:04 PM 290 mg/dL N Blood chemistry[[id number]] Glucose [Mass/volume] in Serum or Plasma [2344-7] 08/31/2024 12:42 PM 133 mg/dL N Blood chemistry[[id number]] Glucose [Mass/volume] in Serum or Plasma [5-7] 08/30/2024 02:23 PM 250 mg/dL N Blood chemistry[[id number]] Glucose [Mass/volume] in Serum or Plasma [5-7] 08/30/2024 10:25 AM 117 mg/dL N Blood chemistry[[id number]] Glucose [Mass/volume] in Serum or Plasma [5-7] 08/30/2024 04:59 PM 174 mg/dL N Blood chemistry[[id number]] Glucose [Mass/volume] in Serum or Plasma [5-7] 08/30/2024 01:49 PM 127 mg/dL N Blood chemistry[[id number]] Glucose [Mass/volume] in Serum or Plasma [5-7] 08/29/2024 03:00 PM 252 mg/dL N Blood chemistry[[id number]] Glucose [Mass/volume] in Serum or Plasma [5-7] 08/29/2024 05:33 PM 232 mg/dL N Blood chemistry[[id number]] Glucose [Mass/volume] in Serum or Plasma [2345-7] 08/29/2024 05:07 PM 232 mg/dL N Blood chemistry[[id number]] Glucose [Mass/volume] in Serum or Plasma [2345-7] 08/29/2024 03:53 PM 78 mg/dL N Blood chemistry[[id number]] Glucose [Mass/volume] in Serum or Plasma [2345-7] 08/29/2024 11:08 AM 196 mg/dL N Blood chemistry[[id number]] Glucose [Mass/volume] in Serum or Plasma [2345-7] 08/29/2024 10:55 AM 258 mg/dL N Blood chemistry[[id number]] Glucose [Mass/volume] in Serum or Plasma [2345-7] 08/28/2024 01:12 PM 280 mg/dL N Blood chemistry[[id number]] Glucose [Mass/volume] in Serum or Plasma [2345-7] 08/28/2024 06:24 PM 206 mg/dL N Blood chemistry[[id number]] Glucose [Mass/volume] in Serum or Plasma [2345-7] 08/28/2024 03:51 PM 166 mg/dL N Blood chemistry[[id number]] Glucose [Mass/volume] in Serum or Plasma [2345-7] 08/28/2024 11:26 AM 109 mg/dL N Blood chemistry[[id number]] Glucose [Mass/volume] in Serum or Plasma [2345-7] 08/28/2024 11:15 AM 199 mg/dL N Blood chemistry[[id number]] Glucose [Mass/volume] in Serum or Plasma [2345-7] 08/27/2024 12:00 PM 217 mg/dL N Blood chemistry[[id number]] Glucose [Mass/volume] in Serum or Plasma [2345-7] 08/27/2024 06:10 PM 131 mg/dL N Blood chemistry[[id number]] Glucose [Mass/volume] in Serum or Plasma [2345-7] 08/27/2024 01:33 PM 133 mg/dL N Blood chemistry[[id number]] Glucose [Mass/volume] in Serum or Plasma [2345-7] 08/27/2024 11:09 AM 116 mg/dL N Blood chemistry[[id number]] Glucose [Mass/volume] in Serum or Plasma [2345-7] 08/27/2024 09:45 AM 185 mg/dL N Blood chemistry[[id number]] Glucose [Mass/volume] in Serum or Plasma [2345-7] 08/26/2024 12:48 PM 143 mg/dL N Blood chemistry[[id number]] Glucose [Mass/volume] in Serum or Plasma [2345-7] 08/26/2024 05:59 PM 101 mg/dL N Blood chemistry[[id number]] Glucose [Mass/volume] in Serum or Plasma [2345-7] 08/26/2024 01:15 PM 84 mg/dL N Blood chemistry[[id number]] Glucose [Mass/volume] in Serum or Plasma [2345-7] 08/26/2024 10:28 AM 207 mg/dL N Blood chemistry[[id number]] Glucose [Mass/volume] in Serum or Plasma [2345-7] 08/25/2024 05:32 PM 231 mg/dL N Blood chemistry[[id number]] Glucose [Mass/volume] in Serum or Plasma [2345-7] 08/25/2024 01:41 PM 104 mg/dL N Blood chemistry[[id number]] Glucose [Mass/volume] in Serum or Plasma [2345-7] 08/25/2024 01:35 PM 267 mg/dL N Blood chemistry[[id number]] Glucose [Mass/volume] in Serum or Plasma [2345-7] 08/25/2024 10:29 AM 296 mg/dL N Blood chemistry[[id number]] Glucose [Mass/volume] in Serum or Plasma [2345-7] 08/24/2024 01:08 PM 146 mg/dL N Blood chemistry[[id number]] Glucose [Mass/volume] in Serum or Plasma [2345-7] 08/24/2024 11:26 AM 92 mg/dL N Blood chemistry[[id number]] Glucose [Mass/volume] in Serum or Plasma [2345-7] 08/24/2024 06:10 PM 99 mg/dL N Blood chemistry[[id number]] Glucose [Mass/volume] in Serum or Plasma [2345-7] 08/24/2024 02:15 PM 52 mg/dL N Blood chemistry[[id number]] Glucose [Mass/volume] in Serum or Plasma [2345-7] 08/23/2024 05:20 PM 113 mg/dL N Blood chemistry[[id number]] Glucose [Mass/volume] in Serum or Plasma [2345-7] 08/23/2024 02:26 PM 121 mg/dL N Blood chemistry[[id number]] Glucose [Mass/volume] in Serum or Plasma [2345-7] 08/23/2024 02:16 PM 58 mg/dL N Blood chemistry[[id number]] Glucose [Mass/volume] in Serum or Plasma [2345-7] 08/23/2024 11:34 AM 109 mg/dL N Blood chemistry[[id number]] Glucose [Mass/volume] in Serum or Plasma [2345-7] 08/22/2024 05:06 PM 162 mg/dL N Blood chemistry[[id number]] Glucose [Mass/volume] in Serum or Plasma [2345-7] 08/22/2024 05:04 PM 162 mg/dL N Blood chemistry[[id number]] Glucose [Mass/volume] in Serum or Plasma [2345-7] 08/22/2024 03:08 PM 206 mg/dL N Blood chemistry[[id number]] Glucose [Mass/volume] in Serum or Plasma [2345-7] 08/22/2024 02:44 PM 156 mg/dL N Blood chemistry[[id number]] Glucose [Mass/volume] in Serum or Plasma [2345-7] 08/22/2024 01:19 PM 156 mg/dL N Blood chemistry[[id number]] Glucose [Mass/volume] in Serum or Plasma [2345-7] 08/22/2024 11:07 AM 171 mg/dL N Blood chemistry[[id number]] Glucose [Mass/volume] in Serum or Plasma [2345-7] 08/22/2024 10:47 AM 179 mg/dL N Blood chemistry[[id number]] Glucose [Mass/volume] in Serum or Plasma [2345-7] 08/21/2024 02:18 PM 225 mg/dL N Blood chemistry[[id number]] Glucose [Mass/volume] in Serum or Plasma [2345-7] 08/21/2024 03:12 PM 147 mg/dL N Blood chemistry[[id number]] Glucose [Mass/volume] in Serum or Plasma [2345-7] 08/21/2024 11:10 AM 104 mg/dL N Blood chemistry[[id number]] Glucose [Mass/volume] in Serum or Plasma [2345-7] 08/21/2024 11:03 AM 157 mg/dL N Blood chemistry[[id number]] Glucose [Mass/volume] in Serum or Plasma [2345-7] 08/21/2024 07:14 AM 230 mg/dL N Blood chemistry[[id number]] Glucose [Mass/volume] in Serum or Plasma [2345-7] 08/20/2024 12:54 PM 121 mg/dL N Blood chemistry[[id number]] Glucose [Mass/volume] in Serum or Plasma [2345-7] 08/20/2024 05:28 PM 82 mg/dL N Blood chemistry[[id number]] Glucose [Mass/volume] in Serum or Plasma [2345-7] 08/20/2024 03:00 PM 99 mg/dL N Blood chemistry[[id number]] Glucose [Mass/volume] in Serum or Plasma [2345-7] 08/20/2024 11:36 AM 77 mg/dL N Blood chemistry[[id number]] Glucose [Mass/volume] in Serum or Plasma [2345-7] 08/20/2024 11:04 AM 100 mg/dL N Blood chemistry[[id number]] Glucose [Mass/volume] in Serum or Plasma [2345-7] 08/19/2024 05:41 PM 121 mg/dL N Blood chemistry[[id number]] Glucose [Mass/volume] in Serum or Plasma [2345-7] 08/19/2024 01:49 PM 212 mg/dL N Blood chemistry[[id number]] Glucose [Mass/volume] in Serum or Plasma [2345-7] 08/19/2024 12:33 PM 301 mg/dL N Blood chemistry[[id number]] Glucose [Mass/volume] in Serum or Plasma [2345-7] 08/19/2024 09:34 AM 183 mg/dL N Blood chemistry[[id number]] Glucose [Mass/volume] in Serum or Plasma [2345-7] 08/18/2024 12:47 PM 164 mg/dL N Blood chemistry[[id number]] Glucose [Mass/volume] in Serum or Plasma [2345-7] 08/18/2024 05:31 PM 92 mg/dL N Blood chemistry[[id number]] Glucose [Mass/volume] in Serum or Plasma [2345-7] 08/18/2024 01:20 PM 70 mg/dL N Blood chemistry[[id number]] Glucose [Mass/volume] in Serum or Plasma [2345-7] 08/18/2024 10:00 AM 76 mg/dL N Blood chemistry[[id number]] Glucose [Mass/volume] in Serum or Plasma [2345-7] 08/17/2024 02:14 PM 90 mg/dL N Blood chemistry[[id number]] Glucose [Mass/volume] in Serum or Plasma [2345-7] 08/17/2024 01:43 PM 68 mg/dL N Blood chemistry[[id number]] Glucose [Mass/volume] in Serum or Plasma [2345-7] 08/17/2024 10:56 AM 71 mg/dL N Blood chemistry[[id number]] Glucose [Mass/volume] in Serum or Plasma [2345-7] 08/17/2024 07:27 AM 127 mg/dL N Blood chemistry[[id number]] Glucose [Mass/volume] in Serum or Plasma [2345-7] 08/17/2024 07:26 AM 127 mg/dL N Blood chemistry[[id number]] Glucose [Mass/volume] in Serum or Plasma [2345-7] 08/16/2024 01:53 PM 206 mg/dL N Blood chemistry[[id number]] Glucose [Mass/volume] in Serum or Plasma [2345-7] 08/16/2024 10:31 AM 97 mg/dL N Blood chemistry[[id number]] Glucose [Mass/volume] in Serum or Plasma [2345-7] 08/16/2024 05:26 PM 214 mg/dL N Blood chemistry[[id number]] Glucose [Mass/volume] in Serum or Plasma [2345-7] 08/16/2024 01:04 PM 86 mg/dL N Blood chemistry[[id number]] Glucose [Mass/volume] in Serum or Plasma [2345-7] 08/15/2024 01:26 PM 267 mg/dL N Blood chemistry[[id number]] Glucose [Mass/volume] in Serum or Plasma [2345-7] 08/15/2024 06:00 PM 272 mg/dL N Blood chemistry[[id number]] Glucose [Mass/volume] in Serum or Plasma [2345-7] 08/15/2024 02:33 PM 193 mg/dL N Blood chemistry[[id number]] Glucose [Mass/volume] in Serum or Plasma [2345-7] 08/15/2024 11:16 AM 171 mg/dL N Blood chemistry[[id number]] Glucose [Mass/volume] in Serum or Plasma [2345-7] 08/15/2024 10:28 AM 178 mg/dL N Blood chemistry[[id number]] Glucose [Mass/volume] in Serum or Plasma [2345-7] 08/14/2024 12:42 PM 208 mg/dL N Blood chemistry[[id number]] Glucose [Mass/volume] in Serum or Plasma [2345-7] 08/14/2024 02:02 PM 182 mg/dL N Blood chemistry[[id number]] Glucose [Mass/volume] in Serum or Plasma [2345-7] 08/14/2024 02:01 PM 184 mg/dL N Blood chemistry[[id number]] Glucose [Mass/volume] in Serum or Plasma [2345-7] 08/14/2024 11:08 AM 175 mg/dL N Blood chemistry[[id number]] Glucose [Mass/volume] in Serum or Plasma [2345-7] 08/14/2024 09:22 AM 191 mg/dL N Blood chemistry[[id number]] Glucose [Mass/volume] in Serum or Plasma [2345-7] 08/13/2024 12:55 PM 222 mg/dL N Blood chemistry[[id number]] Glucose [Mass/volume] in Serum or Plasma [2345-7] 08/13/2024 01:33 PM 160 mg/dL N Blood chemistry[[id number]] Glucose [Mass/volume] in Serum or Plasma [2345-7] 08/13/2024 10:59 AM 137 mg/dL N Blood chemistry[[id number]] Glucose [Mass/volume] in Serum or Plasma [2345-7] 08/13/2024 10:41 AM 84 mg/dL N Glucose [Mass/volume] in Serum or Plasma [2345-7] 08/13/2024 10:41 AM 84 mg/dL N Blood chemistry[[id number]] Glucose [Mass/volume] in Serum or Plasma [2345-7] 08/13/2024 08:37 AM 91 mg/dL N Blood chemistry[[id number]] Glucose [Mass/volume] in Serum or Plasma [2345-7] 08/12/2024 06:08 PM 89 mg/dL N Blood chemistry[[id number]] Glucose [Mass/volume] in Serum or Plasma [2345-7] 08/12/2024 01:52 PM 113 mg/dL N Glucose [Mass/volume] in Serum or Plasma [2345-7] 08/12/2024 01:52 PM 113 mg/dL N Blood chemistry[[id number]] Glucose [Mass/volume] in Serum or Plasma [2345-7] 08/12/2024 12:37 PM 176 mg/dL N Blood chemistry[[id number]] Glucose [Mass/volume] in Serum or Plasma [2345-7] 08/12/2024 10:32 AM 88 mg/dL N Blood chemistry[[id number]] Glucose [Mass/volume] in Serum or Plasma [2345-7] 08/11/2024 01:18 PM 145 mg/dL N Blood chemistry[[id number]] Glucose [Mass/volume] in Serum or Plasma [2345-7] 08/11/2024 05:42 PM 89 mg/dL N Blood chemistry[[id number]] Glucose [Mass/volume] in Serum or Plasma [2345-7] 08/11/2024 01:41 PM 80 mg/dL N Blood chemistry[[id number]] Glucose [Mass/volume] in Serum or Plasma [2345-7] 08/11/2024 10:38 AM 100 mg/dL N Blood chemistry[[id number]] Glucose [Mass/volume] in Serum or Plasma [2345-7] 08/10/2024 03:11 PM 57 mg/dL N Blood chemistry[[id number]] Glucose [Mass/volume] in Serum or Plasma [2345-7] 08/10/2024 02:12 PM 237 mg/dL N Blood chemistry[[id number]] Glucose [Mass/volume] in Serum or Plasma [2345-7] 08/10/2024 10:57 AM 163 mg/dL N Blood chemistry[[id number]] Glucose [Mass/volume] in Serum or Plasma [2345-7] 08/10/2024 08:16 AM 108 mg/dL N Blood chemistry[[id number]] Glucose [Mass/volume] in Serum or Plasma [2345-7] 08/09/2024 02:04 PM 159 mg/dL N Blood chemistry[[id number]] Glucose [Mass/volume] in Serum or Plasma [2345-7] 08/09/2024 10:23 AM 110 mg/dL N Blood chemistry[[id number]] Glucose [Mass/volume] in Serum or Plasma [2345-7] 08/09/2024 06:36 PM 136 mg/dL N Blood chemistry[[id number]] Glucose [Mass/volume] in Serum or Plasma [2345-7] 08/09/2024 01:12 PM 119 mg/dL N Blood chemistry[[id number]] Glucose [Mass/volume] in Serum or Plasma [2345-7] 08/08/2024 01:44 PM 41 mg/dL N Blood chemistry[[id number]] Glucose [Mass/volume] in Serum or Plasma [2345-7] 08/08/2024 04:46 PM 132 mg/dL N Blood chemistry[[id number]] Glucose [Mass/volume] in Serum or Plasma [2345-7] 08/08/2024 03:15 PM 116 mg/dL N Blood chemistry[[id number]] Glucose [Mass/volume] in Serum or Plasma [2345-7] 08/08/2024 10:52 AM 176 mg/dL N Blood chemistry[[id number]] Glucose [Mass/volume] in Serum or Plasma [2345-7] 08/07/2024 02:55 PM 246 mg/dL N Blood chemistry[[id number]] Glucose [Mass/volume] in Serum or Plasma [2345-7] 08/07/2024 05:21 PM 241 mg/dL N Blood chemistry[[id number]] Glucose [Mass/volume] in Serum or Plasma [2345-7] 08/07/2024 01:58 PM 186 mg/dL N Blood chemistry[[id number]] Glucose [Mass/volume] in Serum or Plasma [2345-7] 08/07/2024 10:35 AM 191 mg/dL N Blood chemistry[[id number]] Glucose [Mass/volume] in Serum or Plasma [2345-7] 08/07/2024 10:24 AM 219 mg/dL N Blood chemistry[[id number]] Glucose [Mass/volume] in Serum or Plasma [2345-7] 08/06/2024 12:37 PM 210 mg/dL N Blood chemistry[[id number]] Glucose [Mass/volume] in Serum or Plasma [2345-7] 08/06/2024 12:12 PM 157 mg/dL N Blood chemistry[[id number]] Glucose [Mass/volume] in Serum or Plasma [2345-7] 08/06/2024 06:41 PM 165 mg/dL N Blood chemistry[[id number]] Glucose [Mass/volume] in Serum or Plasma [2345-7] 08/06/2024 02:09 PM 174 mg/dL N Blood chemistry[[id number]] Glucose [Mass/volume] in Serum or Plasma [2345-7] 08/06/2024 11:06 AM 183 mg/dL N Blood chemistry[[id number]] Glucose [Mass/volume] in Serum or Plasma [2345-7] 08/05/2024 12:55 PM 171 mg/dL N Blood chemistry[[id number]] Glucose [Mass/volume] in Serum or Plasma [2345-7] 08/05/2024 05:44 PM 165 mg/dL N Blood chemistry[[id number]] Glucose [Mass/volume] in Serum or Plasma [2345-7] 08/05/2024 01:13 PM 151 mg/dL N Blood chemistry[[id number]] Glucose [Mass/volume] in Serum or Plasma [2345-7] 08/05/2024 11:07 AM 166 mg/dL N Blood chemistry[[id number]] Glucose [Mass/volume] in Serum or Plasma [2345-7] 08/05/2024 10:53 AM 191 mg/dL N Blood chemistry[[id number]] Glucose [Mass/volume] in Serum or Plasma [2345-7] 08/04/2024 01:01 PM 195 mg/dL N Blood chemistry[[id number]] Glucose [Mass/volume] in Serum or Plasma [2345-7] 08/04/2024 05:59 PM 93 mg/dL N Blood chemistry[[id number]] Glucose [Mass/volume] in Serum or Plasma [2345-7] 08/04/2024 01:45 PM 56 mg/dL N Blood chemistry[[id number]] Glucose [Mass/volume] in Serum or Plasma [2345-7] 08/04/2024 01:41 PM 56 mg/dL N Blood chemistry[[id number]] Glucose [Mass/volume] in Serum or Plasma [2345-7] 08/04/2024 11:12 AM 141 mg/dL N Glucose [Mass/volume] in Serum or Plasma [2345-7] 08/04/2024 11:12 AM 141 mg/dL N Blood chemistry[[id number]] Glucose [Mass/volume] in Serum or Plasma [2345-7] 08/03/2024 03:45 PM 144 mg/dL N Blood chemistry[[id number]] Glucose [Mass/volume] in Serum or Plasma [2345-7] 08/03/2024 02:40 PM 109 mg/dL N Blood chemistry[[id number]] Glucose [Mass/volume] in Serum or Plasma [2345-7] 08/03/2024 12:28 PM 106 mg/dL N Blood chemistry[[id number]] Glucose [Mass/volume] in Serum or Plasma [2345-7] 08/03/2024 08:59 AM 89 mg/dL N Blood chemistry[[id number]] Glucose [Mass/volume] in Serum or Plasma [2345-7] 08/03/2024 10:56 AM 109 mg/dL N Blood chemistry[[id number]] Glucose [Mass/volume] in Serum or Plasma [2345-7] 08/02/2024 01:24 PM 223 mg/dL N Blood chemistry[[id number]] Glucose [Mass/volume] in Serum or Plasma [2345-7] 08/02/2024 12:31 PM 200 mg/dL N Glucose [Mass/volume] in Serum or Plasma [2345-7] 08/02/2024 12:31 PM 200 mg/dL N Glucose [Mass/volume] in Serum or Plasma [2345-7] 08/02/2024 12:31 PM 207 mg/dL N Blood chemistry[[id number]] Glucose [Mass/volume] in Serum or Plasma [2345-7] 08/02/2024 04:11 PM 176 mg/dL N Blood chemistry[[id number]] Glucose [Mass/volume] in Serum or Plasma [2345-7] 08/02/2024 04:08 PM 176 mg/dL N Blood chemistry[[id number]] Glucose [Mass/volume] in Serum or Plasma [2345-7] 08/01/2024 01:00 PM 264 mg/dL N Blood chemistry[[id number]] Glucose [Mass/volume] in Serum or Plasma [2345-7] 08/01/2024 03:59 PM 168 mg/dL N Blood chemistry[[id number]] Glucose [Mass/volume] in Serum or Plasma [2345-7] 08/01/2024 10:49 AM 213 mg/dL N Blood chemistry[[id number]] Glucose [Mass/volume] in Serum or Plasma [2345-7] 08/01/2024 09:39 AM 198 mg/dL N Blood chemistry[[id number]] Glucose [Mass/volume] in Serum or Plasma [2345-7] 07/31/2024 05:02 PM 122 mg/dL N Blood chemistry[[id number]] Glucose [Mass/volume] in Serum or Plasma [2345-7] 07/31/2024 01:33 PM 161 mg/dL N Blood chemistry[[id number]] Glucose [Mass/volume] in Serum or Plasma [2345-7] 07/31/2024 12:30 PM 183 mg/dL N Blood chemistry[[id number]] Glucose [Mass/volume] in Serum or Plasma [2345-7] 07/31/2024 10:28 AM 197 mg/dL N Blood chemistry[[id number]] Glucose [Mass/volume] in Serum or Plasma [2345-7] 07/31/2024 11:19 AM 163 mg/dL N Blood chemistry[[id number]] Glucose [Mass/volume] in Serum or Plasma [2345-7] 07/30/2024 01:19 PM 191 mg/dL N Blood chemistry[[id number]] Glucose [Mass/volume] in Serum or Plasma [2345-7] 07/30/2024 10:08 AM 90 mg/dL N Blood chemistry[[id number]] Glucose [Mass/volume] in Serum or Plasma [2345-7] 07/30/2024 05:05 PM 94 mg/dL N Glucose [Mass/volume] in Serum or Plasma [2345-7] 07/30/2024 05:05 PM 94 mg/dL N Blood chemistry[[id number]] Glucose [Mass/volume] in Serum or Plasma [2345-7] 07/30/2024 01:33 PM 80 mg/dL N Blood chemistry[[id number]] Glucose [Mass/volume] in Serum or Plasma [2345-7] 07/30/2024 11:03 AM 90 mg/dL N Blood chemistry[[id number]] Glucose [Mass/volume] in Serum or Plasma [2345-7] 07/29/2024 12:28 PM 221 mg/dL N Blood chemistry[[id number]] Glucose [Mass/volume] in Serum or Plasma [2345-7] 07/29/2024 02:55 PM 65 mg/dL N Blood chemistry[[id number]] Glucose [Mass/volume] in Serum or Plasma [2345-7] 07/29/2024 11:09 AM 176 mg/dL N Glucose [Mass/volume] in Serum or Plasma [2345-7] 07/29/2024 11:09 AM 71 mg/dL N Blood chemistry[[id number]] Glucose [Mass/volume] in Serum or Plasma [2345-7] 07/29/2024 08:05 AM 171 mg/dL N Blood chemistry[[id number]] Glucose [Mass/volume] in Serum or Plasma [2345-7] 07/28/2024 12:42 PM 277 mg/dL N Blood chemistry[[id number]] Glucose [Mass/volume] in Serum or Plasma [2345-7] 07/28/2024 05:42 PM 118 mg/dL N Blood chemistry[[id number]] Glucose [Mass/volume] in Serum or Plasma [2345-7] 07/28/2024 01:43 PM 111 mg/dL N Blood chemistry[[id number]] Glucose [Mass/volume] in Serum or Plasma [2345-7] 07/28/2024 10:17 AM 150 mg/dL N Blood chemistry[[id number]] Glucose [Mass/volume] in Serum or Plasma [2345-7] 07/27/2024 05:34 PM 126 mg/dL N Blood chemistry[[id number]] Glucose [Mass/volume] in Serum or Plasma [2345-7] 07/27/2024 02:49 PM 98 mg/dL N Blood chemistry[[id number]] Glucose [Mass/volume] in Serum or Plasma [2345-7] 07/27/2024 02:47 PM 260 mg/dL N Blood chemistry[[id number]] Glucose [Mass/volume] in Serum or Plasma [2345-7] 07/27/2024 10:35 AM 182 mg/dL N Blood chemistry[] Glucose [Mass/volume] in Serum or Plasma [2345-7] 07/26/2024 01:40 PM 288 mg/dL N Glucose [Mass/volume] in Serum or Plasma [2345-7] 07/26/2024 01:40 PM 211 mg/dL N Blood chemistry[[id number]] Glucose [Mass/volume] in Serum or Plasma [2345-7] 07/26/2024 09:53 AM 189 mg/dL N Blood chemistry[[id number]] Glucose [Mass/volume] in Serum or Plasma [2345-7] 07/26/2024 05:37 PM 258 mg/dL N Blood chemistry[[id number]] Glucose [Mass/volume] in Serum or Plasma [2345-7] 07/25/2024 06:26 PM 217 mg/dL N Blood chemistry[[id number]] Glucose [Mass/volume] in Serum or Plasma [2345-7] 07/25/2024 04:10 PM 249 mg/dL N Blood chemistry[[id number]] Glucose [Mass/volume] in Serum or Plasma [2345-7] 07/25/2024 12:35 PM 244 mg/dL N Blood chemistry[[id number]] Glucose [Mass/volume] in Serum or Plasma [2345-7] 07/25/2024 11:17 AM 177 mg/dL N Blood chemistry[[id number]] Glucose [Mass/volume] in Serum or Plasma [2345-7] 07/24/2024 12:38 PM 204 mg/dL N Blood chemistry[[id number]] Glucose [Mass/volume] in Serum or Plasma [2345-7] 07/24/2024 10:36 AM 216 mg/dL N Blood chemistry[[id number]] Glucose [Mass/volume] in Serum or Plasma [2345-7] 07/24/2024 07:55 AM 154 mg/dL N Blood chemistry[[id number]] Glucose [Mass/volume] in Serum or Plasma [2345-7] 07/24/2024 02:28 PM 151 mg/dL N Blood chemistry[[id number]] Glucose [Mass/volume] in Serum or Plasma [2345-7] 07/24/2024 11:08 AM 158 mg/dL N Blood chemistry[[id number]] Glucose [Mass/volume] in Serum or Plasma [2345-7] 07/23/2024 05:27 PM 167 mg/dL N Blood chemistry[[id number]] Glucose [Mass/volume] in Serum or Plasma [2345-7] 07/23/2024 01:07 PM 218 mg/dL N Blood chemistry[[id number]] Glucose [Mass/volume] in Serum or Plasma [2345-7] 07/23/2024 10:31 AM 97 mg/dL N Blood chemistry[[id number]] Glucose [Mass/volume] in Serum or Plasma [2345-7] 07/23/2024 01:45 PM 134 mg/dL N Blood chemistry[[id number]] Glucose [Mass/volume] in Serum or Plasma [2345-7] 07/23/2024 11:12 AM 135 mg/dL N Blood chemistry[[id number]] Glucose [Mass/volume] in Serum or Plasma [2345-7] 07/22/2024 05:29 PM 97 mg/dL N Glucose [Mass/volume] in Serum or Plasma [2345-7] 07/22/2024 05:29 PM 97 mg/dL N Blood chemistry[[id number]] Glucose [Mass/volume] in Serum or Plasma [2345-7] 07/22/2024 12:44 PM 232 mg/dL N Blood chemistry[[id number]] Glucose [Mass/volume] in Serum or Plasma [2345-7] 07/22/2024 10:46 AM 130 mg/dL N Blood chemistry[[id number]] Glucose [Mass/volume] in Serum or Plasma [2345-7] 07/22/2024 01:47 PM 123 mg/dL N Blood chemistry[[id number]] Glucose [Mass/volume] in Serum or Plasma [2345-7] 07/21/2024 06:12 PM 240 mg/dL N Blood chemistry[[id number]] Glucose [Mass/volume] in Serum or Plasma [2345-7] 07/21/2024 03:30 PM 189 mg/dL N Blood chemistry[[id number]] Glucose [Mass/volume] in Serum or Plasma [2345-7] 07/21/2024 01:58 PM 187 mg/dL N Blood chemistry[[id number]] Glucose [Mass/volume] in Serum or Plasma [2345-7] 07/21/2024 10:13 AM 237 mg/dL N Glucose [Mass/volume] in Serum or Plasma [2345-7] 07/21/2024 10:13 AM 237 mg/dL N Blood chemistry[[id number]] Glucose [Mass/volume] in Serum or Plasma [2345-7] 07/20/2024 04:40 PM 188 mg/dL N Blood chemistry[[id number]] Glucose [Mass/volume] in Serum or Plasma [2345-7] 07/20/2024 12:06 PM 156 mg/dL N Blood chemistry[[id number]] Glucose [Mass/volume] in Serum or Plasma [2345-7] 07/20/2024 08:19 AM 208 mg/dL N Glucose [Mass/volume] in Serum or Plasma [2345-7] 07/20/2024 08:19 AM 208 mg/dL N Blood chemistry[[id number]] Glucose [Mass/volume] in Serum or Plasma [2345-7] 07/20/2024 08:18 AM 260 mg/dL N Blood chemistry[] Glucose [Mass/volume] in Serum or Plasma [2345-7] 07/19/2024 12:42 PM 232 mg/dL N Blood chemistry[[id number]] Glucose [Mass/volume] in Serum or Plasma [2345-7] 07/19/2024 08:26 AM 190 mg/dL N Blood chemistry[[id number]] Glucose [Mass/volume] in Serum or Plasma [2345-7] 07/19/2024 08:25 AM 190 mg/dL N Glucose [Mass/volume] in Serum or Plasma [2345-7] 07/19/2024 08:25 AM 160 mg/dL N Blood chemistry[[id number]] Glucose [Mass/volume] in Serum or Plasma [2345-7] 07/18/2024 05:17 PM 185 mg/dL N Blood chemistry[[id number]] Glucose [Mass/volume] in Serum or Plasma [2345-7] 07/18/2024 06:57 PM 177 mg/dL N Blood chemistry[[id number]] Glucose [Mass/volume] in Serum or Plasma [2345-7] 07/18/2024 04:45 PM 185 mg/dL N Blood chemistry[[id number]] Glucose [Mass/volume] in Serum or Plasma [2345-7] 07/18/2024 12:05 PM 240 mg/dL N Blood chemistry[[id number]] Glucose [Mass/volume] in Serum or Plasma [2345-7] 07/18/2024 11:08 AM 198 mg/dL N Blood chemistry[[id number]] Glucose [Mass/volume] in Serum or Plasma [2345-7] 07/17/2024 05:01 PM 277 mg/dL N Blood chemistry[[id number]] Glucose [Mass/volume] in Serum or Plasma [2345-7] 07/17/2024 02:12 PM 171 mg/dL N Blood chemistry[[id number]] Glucose [Mass/volume] in Serum or Plasma [2345-7] 07/17/2024 12:26 PM 248 mg/dL N Blood chemistry[[id number]] Glucose [Mass/volume] in Serum or Plasma [2345-7] 07/17/2024 10:27 AM 207 mg/dL N Blood chemistry[[id number]] Glucose [Mass/volume] in Serum or Plasma [2345-7] 07/17/2024 11:09 AM 172 mg/dL N Blood chemistry[[id number]] Glucose [Mass/volume] in Serum or Plasma [2345-7] 07/16/2024 12:31 PM 218 mg/dL N Blood chemistry[[id number]] Glucose [Mass/volume] in Serum or Plasma [2345-7] 07/16/2024 10:22 AM 145 mg/dL N Blood chemistry[[id number]] Glucose [Mass/volume] in Serum or Plasma [2345-7] 07/16/2024 03:36 PM 286 mg/dL N Blood chemistry[[id number]] Glucose [Mass/volume] in Serum or Plasma [2345-7] 07/16/2024 11:06 AM 148 mg/dL N Blood chemistry[[id number]] Glucose [Mass/volume] in Serum or Plasma [2345-7] 07/16/2024 07:01 AM 135 mg/dL N Blood chemistry[[id number]] Glucose [Mass/volume] in Serum or Plasma [2345-7] 07/15/2024 06:09 PM 267 mg/dL N Blood chemistry[[id number]] Glucose [Mass/volume] in Serum or Plasma [2345-7] 07/15/2024 01:39 PM 254 mg/dL N Blood chemistry[[id number]] Glucose [Mass/volume] in Serum or Plasma [2345-7] 07/15/2024 12:33 PM 177 mg/dL N Blood chemistry[[id number]] Glucose [Mass/volume] in Serum or Plasma [2345-7] 07/15/2024 11:07 AM 183 mg/dL N Blood chemistry[[id number]] Glucose [Mass/volume] in Serum or Plasma [2345-7] 07/15/2024 10:15 AM 200 mg/dL N Blood chemistry[[id number]] Glucose [Mass/volume] in Serum or Plasma [2345-7] 07/14/2024 05:04 PM 171 mg/dL N Blood chemistry[[id number]] Glucose [Mass/volume] in Serum or Plasma [2345-7] 07/14/2024 01:21 PM 268 mg/dL N Blood chemistry[[id number]] Glucose [Mass/volume] in Serum or Plasma [2345-7] 07/14/2024 12:54 PM 233 mg/dL N Blood chemistry[[id number]] Glucose [Mass/volume] in Serum or Plasma [2345-7] 07/14/2024 10:42 AM 242 mg/dL N Blood chemistry[[id number]] Glucose [Mass/volume] in Serum or Plasma [2345-7] 07/13/2024 05:05 PM 203 mg/dL N Blood chemistry[[id number]] Glucose [Mass/volume] in Serum or Plasma [2345-7] 07/13/2024 04:35 PM 345 mg/dL N Blood chemistry[[id number]] Glucose [Mass/volume] in Serum or Plasma [2345-7] 07/13/2024 02:12 PM 144 mg/dL N Blood chemistry[[id number]] Glucose [Mass/volume] in Serum or Plasma [2345-7] 07/13/2024 11:19 AM 209 mg/dL N Blood chemistry[[id number]] Glucose [Mass/volume] in Serum or Plasma [2345-7] 07/12/2024 05:36 PM 215 mg/dL N Blood chemistry[[id number]] Glucose [Mass/volume] in Serum or Plasma [2345-7] 07/12/2024 03:00 PM 198 mg/dL N Blood chemistry[[id number]] Glucose [Mass/volume] in Serum or Plasma [2345-7] 07/12/2024 01:36 PM 210 mg/dL N Blood chemistry[[id number]] Glucose [Mass/volume] in Serum or Plasma [2345-7] 07/12/2024 10:14 AM 232 mg/dL N Blood chemistry[[id number]] Glucose [Mass/volume] in Serum or Plasma [2345-7] 07/11/2024 05:19 PM 166 mg/dL N Blood chemistry[[id number]] Glucose [Mass/volume] in Serum or Plasma [2345-7] 07/11/2024 03:17 PM 210 mg/dL N Blood chemistry[[id number]] Glucose [Mass/volume] in Serum or Plasma [2345-7] 07/11/2024 02:29 PM 111 mg/dL N Blood chemistry[[id number]] Glucose [Mass/volume] in Serum or Plasma [2345-7] 07/11/2024 11:36 AM 164 mg/dL N Blood chemistry[[id number]] Glucose [Mass/volume] in Serum or Plasma [2345-7] 07/10/2024 04:54 PM 206 mg/dL N Blood chemistry[[id number]] Glucose [Mass/volume] in Serum or Plasma [2345-7] 07/10/2024 02:01 PM 148 mg/dL N Blood chemistry[[id number]] Glucose [Mass/volume] in Serum or Plasma [2345-7] 07/10/2024 12:59 PM 280 mg/dL N Blood chemistry[[id number]] Glucose [Mass/volume] in Serum or Plasma [2345-7] 07/10/2024 11:02 AM 208 mg/dL N Blood chemistry[[id number]] Glucose [Mass/volume] in Serum or Plasma [2345-7] 07/09/2024 05:50 PM 195 mg/dL N Blood chemistry[[id number]] Glucose [Mass/volume] in Serum or Plasma [2345-7] 07/09/2024 03:54 PM 134 mg/dL N Blood chemistry[[id number]] Glucose [Mass/volume] in Serum or Plasma [2345-7] 07/09/2024 12:26 PM 265 mg/dL N Blood chemistry[[id number]] Glucose [Mass/volume] in Serum or Plasma [2345-7] 07/09/2024 11:10 AM 178 mg/dL N Blood chemistry[[id number]] Glucose [Mass/volume] in Serum or Plasma [2345-7] 07/08/2024 04:50 PM 211 mg/dL N Blood chemistry[[id number]] Glucose [Mass/volume] in Serum or Plasma [2345-7] 07/08/2024 01:50 PM 109 mg/dL N Blood chemistry[[id number]] Glucose [Mass/volume] in Serum or Plasma [2345-7] 07/08/2024 01:09 PM 193 mg/dL N Blood chemistry[[id number]] Glucose [Mass/volume] in Serum or Plasma [2345-7] 07/08/2024 09:11 AM 171 mg/dL N Blood chemistry[[id number]] Glucose [Mass/volume] in Serum or Plasma [2345-7] 07/07/2024 03:11 PM 217 mg/dL N Blood chemistry[[id number]] Glucose [Mass/volume] in Serum or Plasma [2345-7] 07/07/2024 02:23 PM 238 mg/dL N Blood chemistry[[id number]] Glucose [Mass/volume] in Serum or Plasma [2345-7] 07/07/2024 01:51 PM 217 mg/dL N Blood chemistry[[id number]] Glucose [Mass/volume] in Serum or Plasma [2345-7] 07/07/2024 10:58 AM 175 mg/dL N Blood chemistry[[id number]] Glucose [Mass/volume] in Serum or Plasma [2345-7] 07/07/2024 07:14 AM 290 mg/dL N Blood chemistry[[id number]] Glucose [Mass/volume] in Serum or Plasma [2345-7] 07/06/2024 02:29 PM 235 mg/dL N Blood chemistry[[id number]] Glucose [Mass/volume] in Serum or Plasma [2345-7] 07/06/2024 10:39 AM 247 mg/dL N Blood chemistry[[id number]] Glucose [Mass/volume] in Serum or Plasma [2345-7] 07/06/2024 07:41 AM 187 mg/dL N Blood chemistry[[id number]] Glucose [Mass/volume] in Serum or Plasma [2345-7] 07/06/2024 07:39 AM 187 mg/dL N Glucose [Mass/volume] in Serum or Plasma [2345-7] 07/06/2024 07:39 AM 164 mg/dL N Blood chemistry[[id number]] Glucose [Mass/volume] in Serum or Plasma [2345-7] 07/05/2024 05:09 PM 169 mg/dL N Blood chemistry[[id number]] Glucose [Mass/volume] in Serum or Plasma [2345-7] 07/05/2024 02:02 PM 354 mg/dL N Blood chemistry[[id number]] Glucose [Mass/volume] in Serum or Plasma [2345-7] 07/05/2024 11:43 AM 187 mg/dL N Blood chemistry[[id number]] Glucose [Mass/volume] in Serum or Plasma [2345-7] 07/05/2024 10:16 AM 161 mg/dL N Blood chemistry[[id number]] Glucose [Mass/volume] in Serum or Plasma [2345-7] 07/04/2024 04:04 PM 200 mg/dL N Blood chemistry[[id number]] Glucose [Mass/volume] in Serum or Plasma [2345-7] 07/04/2024 02:33 PM 176 mg/dL N Blood chemistry[[id number]] Glucose [Mass/volume] in Serum or Plasma [2345-7] 07/04/2024 12:11 PM 179 mg/dL N Blood chemistry[[id number]] Glucose [Mass/volume] in Serum or Plasma [2345-7] 07/04/2024 11:11 AM 193 mg/dL N Blood chemistry[[id number]] Glucose [Mass/volume] in Serum or Plasma [2345-7] 07/04/2024 08:24 AM 227 mg/dL N Blood chemistry[[id number]] Glucose [Mass/volume] in Serum or Plasma [2345-7] 07/03/2024 05:20 PM 193 mg/dL N Blood chemistry[[id number]] Glucose [Mass/volume] in Serum or Plasma [2345-7] 07/03/2024 02:25 PM 153 mg/dL N Blood chemistry[[id number]] Glucose [Mass/volume] in Serum or Plasma [2345-7] 07/03/2024 12:43 PM 257 mg/dL N Blood chemistry[[id number]] Glucose [Mass/volume] in Serum or Plasma [2345-7] 07/03/2024 11:01 AM 167 mg/dL N Blood chemistry[[id number]] Glucose [Mass/volume] in Serum or Plasma [2345-7] 07/03/2024 10:50 AM 194 mg/dL N Blood chemistry[[id number]] Glucose [Mass/volume] in Serum or Plasma [2345-7] 07/02/2024 05:12 PM 216 mg/dL N Blood chemistry[[id number]] Glucose [Mass/volume] in Serum or Plasma [2345-7] 07/02/2024 02:00 PM 169 mg/dL N Blood chemistry[[id number]] Glucose [Mass/volume] in Serum or Plasma [2345-7] 07/02/2024 12:36 PM 258 mg/dL N Blood chemistry[[id number]] Glucose [Mass/volume] in Serum or Plasma [2345-7] 07/02/2024 10:57 AM 154 mg/dL N Blood chemistry[[id number]] Glucose [Mass/volume] in Serum or Plasma [2345-7] 07/02/2024 10:31 AM 202 mg/dL N Blood chemistry[[id number]] Glucose [Mass/volume] in Serum or Plasma [2345-7] 07/01/2024 03:43 PM 173 mg/dL N Blood chemistry[[id number]] Glucose [Mass/volume] in Serum or Plasma [2345-7] 07/01/2024 12:41 PM 173 mg/dL N Blood chemistry[[id number]] Glucose [Mass/volume] in Serum or Plasma [2345-7] 07/01/2024 11:25 AM 239 mg/dL N Blood chemistry[[id number]] Glucose [Mass/volume] in Serum or Plasma [2345-7] 07/01/2024 10:57 AM 182 mg/dL N Blood chemistry[[id number]] Glucose [Mass/volume] in Serum or Plasma [2345-7] 07/01/2024 08:12 AM 184 mg/dL N Blood chemistry[[id number]] Glucose [Mass/volume] in Serum or Plasma [2345-7] 06/30/2024 05:16 PM 156 mg/dL N Blood chemistry[[id number]] Glucose [Mass/volume] in Serum or Plasma [2345-7] 06/30/2024 01:02 PM 107 mg/dL N Blood chemistry[[id number]] Glucose [Mass/volume] in Serum or Plasma [2345-7] 06/30/2024 12:30 PM 197 mg/dL N Blood chemistry[[id number]] Glucose [Mass/volume] in Serum or Plasma [2345-7] 06/30/2024 10:37 AM 180 mg/dL N Blood chemistry[[id number]] Glucose [Mass/volume] in Serum or Plasma [2345-7] 06/29/2024 05:19 PM 180 mg/dL N Blood chemistry[[id number]] Glucose [Mass/volume] in Serum or Plasma [2345-7] 06/29/2024 04:44 PM 158 mg/dL N Blood chemistry[[id number]] Glucose [Mass/volume] in Serum or Plasma [2345-7] 06/29/2024 02:03 PM 72 mg/dL N Blood chemistry[[id number]] Glucose [Mass/volume] in Serum or Plasma [2345-7] 06/29/2024 11:13 AM 102 mg/dL N Blood chemistry[[id number]] Glucose [Mass/volume] in Serum or Plasma [2345-7] 06/29/2024 10:35 AM 133 mg/dL N Blood chemistry[[id number]] Glucose [Mass/volume] in Serum or Plasma [2345-7] 06/28/2024 04:55 PM 94 mg/dL N Blood chemistry[[id number]] Glucose [Mass/volume] in Serum or Plasma [2345-7] 06/28/2024 12:50 PM 192 mg/dL N Blood chemistry[[id number]] Glucose [Mass/volume] in Serum or Plasma [2345-7] 06/28/2024 12:36 PM 83 mg/dL N Blood chemistry[[id number]] Glucose [Mass/volume] in Serum or Plasma [2345-7] 06/28/2024 11:05 AM 100 mg/dL N Blood chemistry[[id number]] Glucose [Mass/volume] in Serum or Plasma [2345-7] 06/28/2024 09:58 AM 176 mg/dL N Blood chemistry[[id number]] Glucose [Mass/volume] in Serum or Plasma [2345-7] 06/27/2024 05:29 PM 197 mg/dL N Blood chemistry[[id number]] Glucose [Mass/volume] in Serum or Plasma [2345-7] 06/27/2024 12:35 PM 311 mg/dL N Blood chemistry[[id number]] Glucose [Mass/volume] in Serum or Plasma [2345-7] 06/27/2024 12:25 PM 264 mg/dL N Blood chemistry[[id number]] Glucose [Mass/volume] in Serum or Plasma [2345-7] 06/27/2024 12:01 PM 318 mg/dL N Blood chemistry[[id number]] Glucose [Mass/volume] in Serum or Plasma [2345-7] 06/27/2024 11:20 AM 270 mg/dL N Blood chemistry[[id number]] Glucose [Mass/volume] in Serum or Plasma [2345-7] 06/26/2024 04:33 PM 189 mg/dL N Blood chemistry[[id number]] Glucose [Mass/volume] in Serum or Plasma [2345-7] 06/26/2024 01:04 PM 193 mg/dL N Blood chemistry[[id number]] Glucose [Mass/volume] in Serum or Plasma [2345-7] 06/26/2024 12:23 PM 318 mg/dL N Blood chemistry[[id number]] Glucose [Mass/volume] in Serum or Plasma [2345-7] 06/26/2024 10:19 AM 287 mg/dL N COVID-19 Test Viral Antigen null flavor [null] 06/25/2024 05:23 PM See note NEG COVID-19 Test Viral Antigen Blood chemistry[[id number]] Glucose [Mass/volume] in Serum or Plasma [2345-7] 06/25/2024 03:19 PM 133 mg/dL N COVID-19 Test Viral Antigen null flavor [null] 06/25/2024 02:49 PM See note NEG COVID-19 Test Viral Antigen Blood chemistry[[id number]] Glucose [Mass/volume] in Serum or Plasma [2345-7] 06/25/2024 12:25 PM 319 mg/dL N Blood chemistry[[id number]] Glucose [Mass/volume] in Serum or Plasma [2345-7] 06/25/2024 11:25 AM 151 mg/dL N Blood chemistry[[id number]] Glucose [Mass/volume] in Serum or Plasma [2345-7] 06/25/2024 09:48 AM 213 mg/dL N Blood chemistry[[id number]] Glucose [Mass/volume] in Serum or Plasma [2345-7] 06/24/2024 05:29 PM 137 mg/dL N Blood chemistry[[id number]] Glucose [Mass/volume] in Serum or Plasma [2345-7] 06/24/2024 01:21 PM 81 mg/dL N Blood chemistry[[id number]] Glucose [Mass/volume] in Serum or Plasma [2345-7] 06/24/2024 12:24 PM 193 mg/dL N Blood chemistry[[id number]] Glucose [Mass/volume] in Serum or Plasma [2345-7] 06/24/2024 10:22 AM 286 mg/dL N Blood chemistry[[id number]] Glucose [Mass/volume] in Serum or Plasma [2345-7] 06/23/2024 05:57 PM 244 mg/dL N Blood chemistry[[id number]] Glucose [Mass/volume] in Serum or Plasma [2345-7] 06/23/2024 03:30 PM 170 mg/dL N Blood chemistry[[id number]] Glucose [Mass/volume] in Serum or Plasma [2345-7] 06/23/2024 01:11 PM 178 mg/dL N Blood chemistry[[id number]] Glucose [Mass/volume] in Serum or Plasma [2345-7] 06/23/2024 11:40 AM 135 mg/dL N Glucose [Mass/volume] in Serum or Plasma [2345-7] 06/23/2024 11:40 AM 108 mg/dL N Blood chemistry[[id number]] Glucose [Mass/volume] in Serum or Plasma [2345-7] 06/23/2024 11:15 AM 65 mg/dL N Blood chemistry[[id number]] Glucose [Mass/volume] in Serum or Plasma [2345-7] 06/22/2024 05:45 PM 69 mg/dL N Blood chemistry[[id number]] Glucose [Mass/volume] in Serum or Plasma [2345-7] 06/22/2024 01:36 PM 270 mg/dL N Blood chemistry[[id number]] Glucose [Mass/volume] in Serum or Plasma [2345-7] 06/22/2024 01:22 PM 81 mg/dL N Blood chemistry[[id number]] Glucose [Mass/volume] in Serum or Plasma [2345-7] 06/22/2024 11:36 AM 130 mg/dL N Blood chemistry[[id number]] Glucose [Mass/volume] in Serum or Plasma [2345-7] 06/22/2024 11:08 AM 101 mg/dL N Blood chemistry[[id number]] Glucose [Mass/volume] in Serum or Plasma [2345-7] 06/21/2024 05:57 PM 61 mg/dL N Blood chemistry[[id number]] Glucose [Mass/volume] in Serum or Plasma [2345-7] 06/21/2024 01:10 PM 73 mg/dL N Blood chemistry[[id number]] Glucose [Mass/volume] in Serum or Plasma [2345-7] 06/21/2024 01:06 PM 233 mg/dL N Blood chemistry[[id number]] Glucose [Mass/volume] in Serum or Plasma [2345-7] 06/21/2024 10:42 AM 186 mg/dL N Blood chemistry[[id number]] Glucose [Mass/volume] in Serum or Plasma [2345-7] 06/20/2024 06:44 PM 81 mg/dL N Blood chemistry[[id number]] Glucose [Mass/volume] in Serum or Plasma [2345-7] 06/20/2024 03:04 PM 140 mg/dL N Blood chemistry[[id number]] Glucose [Mass/volume] in Serum or Plasma [2345-7] 06/20/2024 02:34 PM 65 mg/dL N Blood chemistry[[id number]] Glucose [Mass/volume] in Serum or Plasma [2345-7] 06/20/2024 11:04 AM 90 mg/dL N Blood chemistry[[id number]] Glucose [Mass/volume] in Serum or Plasma [2345-7] 06/20/2024 11:03 AM 178 mg/dL N Blood chemistry[[id number]] Glucose [Mass/volume] in Serum or Plasma [2345-7] 06/19/2024 04:58 PM 129 mg/dL N Blood chemistry[[id number]] Glucose [Mass/volume] in Serum or Plasma [2345-7] 06/19/2024 01:27 PM 93 mg/dL N Blood chemistry[[id number]] Glucose [Mass/volume] in Serum or Plasma [2345-7] 06/19/2024 12:33 PM 323 mg/dL N Blood chemistry[[id number]] Glucose [Mass/volume] in Serum or Plasma [2345-7] 06/19/2024 11:32 AM 66 mg/dL N Blood chemistry[[id number]] Glucose [Mass/volume] in Serum or Plasma [2345-7] 06/19/2024 10:29 AM 103 mg/dL N Blood chemistry[[id number]] Glucose [Mass/volume] in Serum or Plasma [2345-7] 06/18/2024 05:24 PM 139 mg/dL N Blood chemistry[[id number]] Glucose [Mass/volume] in Serum or Plasma [2345-7] 06/18/2024 01:43 PM 89 mg/dL N Blood chemistry[[id number]] Glucose [Mass/volume] in Serum or Plasma [2345-7] 06/18/2024 12:36 PM 225 mg/dL N Blood chemistry[[id number]] Glucose [Mass/volume] in Serum or Plasma [2345-7] 06/18/2024 11:10 AM 74 mg/dL N Blood chemistry[[id number]] Glucose [Mass/volume] in Serum or Plasma [2345-7] 06/18/2024 11:08 AM 206 mg/dL N Blood chemistry[[id number]] Glucose [Mass/volume] in Serum or Plasma [2345-7] 06/17/2024 05:12 PM 201 mg/dL N Blood chemistry[[id number]] Glucose [Mass/volume] in Serum or Plasma [2345-7] 06/17/2024 01:05 PM 118 mg/dL N Blood chemistry[[id number]] Glucose [Mass/volume] in Serum or Plasma [2345-7] 06/17/2024 12:52 PM 116 mg/dL N Blood chemistry[[id number]] Glucose [Mass/volume] in Serum or Plasma [2345-7] 06/17/2024 11:26 AM 66 mg/dL N Blood chemistry[[id number]] Glucose [Mass/volume] in Serum or Plasma [2345-7] 06/17/2024 09:34 AM 63 mg/dL N Blood chemistry[[id number]] Glucose [Mass/volume] in Serum or Plasma [2345-7] 06/16/2024 01:44 PM 144 mg/dL N Blood chemistry[[id number]] Glucose [Mass/volume] in Serum or Plasma [2345-7] 06/16/2024 01:40 PM 252 mg/dL N Blood chemistry[[id number]] Glucose [Mass/volume] in Serum or Plasma [2345-7] 06/16/2024 11:21 AM 62 mg/dL N Blood chemistry[[id number]] Glucose [Mass/volume] in Serum or Plasma [2345-7] 06/16/2024 09:13 AM 167 mg/dL N Blood chemistry[[id number]] Glucose [Mass/volume] in Serum or Plasma [2345-7] 06/15/2024 05:33 PM 101 mg/dL N Blood chemistry[[id number]] Glucose [Mass/volume] in Serum or Plasma [2345-7] 06/15/2024 02:14 PM 121 mg/dL N Blood chemistry[[id number]] Glucose [Mass/volume] in Serum or Plasma [2345-7] 06/15/2024 01:48 PM 226 mg/dL N Blood chemistry[[id number]] Glucose [Mass/volume] in Serum or Plasma [2345-7] 06/15/2024 09:58 AM 162 mg/dL N Blood chemistry[[id number]] Glucose [Mass/volume] in Serum or Plasma [2345-7] 06/14/2024 05:40 PM 105 mg/dL N Blood chemistry[[id number]] Glucose [Mass/volume] in Serum or Plasma [2345-7] 06/14/2024 02:04 PM 89 mg/dL N Blood chemistry[[id number]] Glucose [Mass/volume] in Serum or Plasma [2345-7] 06/14/2024 01:55 PM 209 mg/dL N Blood chemistry[[id number]] Glucose [Mass/volume] in Serum or Plasma [2345-7] 06/14/2024 11:52 AM 84 mg/dL N Blood chemistry[[id number]] Glucose [Mass/volume] in Serum or Plasma [2345-7] 06/14/2024 11:20 AM 62 mg/dL N Blood chemistry[[id number]] Glucose [Mass/volume] in Serum or Plasma [2345-7] 06/14/2024 10:14 AM 183 mg/dL N Blood chemistry[[id number]] Glucose [Mass/volume] in Serum or Plasma [2345-7] 06/13/2024 06:23 PM 184 mg/dL N Blood chemistry[[id number]] Glucose [Mass/volume] in Serum or Plasma [2345-7] 06/13/2024 02:59 PM 176 mg/dL N Blood chemistry[[id number]] Glucose [Mass/volume] in Serum or Plasma [2345-7] 06/13/2024 01:17 PM 258 mg/dL N Blood chemistry[[id number]] Glucose [Mass/volume] in Serum or Plasma [2345-7] 06/13/2024 12:25 PM 169 mg/dL N Blood chemistry[[id number]] Glucose [Mass/volume] in Serum or Plasma [2345-7] 06/13/2024 11:15 AM 179 mg/dL N Blood chemistry[[id number]] Glucose [Mass/volume] in Serum or Plasma [2345-7] 06/12/2024 05:23 PM 159 mg/dL N Blood chemistry[[id number]] Glucose [Mass/volume] in Serum or Plasma [2345-7] 06/12/2024 01:22 PM 177 mg/dL N Blood chemistry[[id number]] Glucose [Mass/volume] in Serum or Plasma [2345-7] 06/12/2024 12:57 PM 263 mg/dL N Blood chemistry[[id number]] Glucose [Mass/volume] in Serum or Plasma [2345-7] 06/12/2024 11:12 AM 164 mg/dL N Blood chemistry[[id number]] Glucose [Mass/volume] in Serum or Plasma [2345-7] 06/12/2024 10:46 AM 209 mg/dL N Blood chemistry[[id number]] Glucose [Mass/volume] in Serum or Plasma [2345-7] 06/11/2024 06:13 PM 224 mg/dL N Blood chemistry[[id number]] Glucose [Mass/volume] in Serum or Plasma [2345-7] 06/11/2024 04:34 PM 67 mg/dL N Blood chemistry[[id number]] Glucose [Mass/volume] in Serum or Plasma [2345-7] 06/11/2024 01:17 PM 272 mg/dL N Blood chemistry[[id number]] Glucose [Mass/volume] in Serum or Plasma [2345-7] 06/11/2024 11:22 AM 211 mg/dL N Blood chemistry[[id number]] Glucose [Mass/volume] in Serum or Plasma [2345-7] 06/11/2024 11:13 AM 83 mg/dL N Blood chemistry[[id number]] Glucose [Mass/volume] in Serum or Plasma [2345-7] 06/10/2024 06:55 PM 206 mg/dL N Blood chemistry[[id number]] Glucose [Mass/volume] in Serum or Plasma [2345-7] 06/10/2024 01:38 PM 96 mg/dL N Blood chemistry[[id number]] Glucose [Mass/volume] in Serum or Plasma [2345-7] 06/10/2024 01:10 PM 205 mg/dL N Blood chemistry[[id number]] Glucose [Mass/volume] in Serum or Plasma [2345-7] 06/10/2024 12:50 PM 189 mg/dL N Blood chemistry[[id number]] Glucose [Mass/volume] in Serum or Plasma [2345-7] 06/09/2024 02:55 PM 178 mg/dL N Blood chemistry[[id number]] Glucose [Mass/volume] in Serum or Plasma [2345-7] 06/09/2024 02:38 PM 154 mg/dL N Blood chemistry[[id number]] Glucose [Mass/volume] in Serum or Plasma [2345-7] 06/09/2024 11:31 AM 117 mg/dL N Blood chemistry[[id number]] Glucose [Mass/volume] in Serum or Plasma [2345-7] 06/09/2024 07:30 AM 136 mg/dL N Blood chemistry[[id number]] Glucose [Mass/volume] in Serum or Plasma [2345-7] 06/08/2024 05:25 PM 143 mg/dL N Blood chemistry[[id number]] Glucose [Mass/volume] in Serum or Plasma [2345-7] 06/08/2024 01:13 PM 276 mg/dL N Blood chemistry[[id number]] Glucose [Mass/volume] in Serum or Plasma [2345-7] 06/08/2024 12:53 PM 147 mg/dL N Blood chemistry[[id number]] Glucose [Mass/volume] in Serum or Plasma [2345-7] 06/08/2024 11:11 AM 156 mg/dL N Blood chemistry[[id number]] Glucose [Mass/volume] in Serum or Plasma [2345-7] 06/08/2024 10:53 AM 177 mg/dL N Blood chemistry[[id number]] Glucose [Mass/volume] in Serum or Plasma [2345-7] 06/07/2024 04:52 PM 132 mg/dL N Blood chemistry[[id number]] Glucose [Mass/volume] in Serum or Plasma [2345-7] 06/07/2024 12:58 PM 194 mg/dL N Blood chemistry[[id number]] Glucose [Mass/volume] in Serum or Plasma [2345-7] 06/07/2024 12:16 PM 271 mg/dL N Blood chemistry[[id number]] Glucose [Mass/volume] in Serum or Plasma [2345-7] 06/07/2024 10:29 AM 207 mg/dL N Blood chemistry[[id number]] Glucose [Mass/volume] in Serum or Plasma [2345-7] 06/07/2024 09:12 AM 239 mg/dL N Blood chemistry[[id number]] Glucose [Mass/volume] in Serum or Plasma [2345-7] 06/06/2024 04:55 PM 376 mg/dL N Blood chemistry[[id number]] Glucose [Mass/volume] in Serum or Plasma [2345-7] 06/06/2024 12:51 PM 222 mg/dL N Blood chemistry[[id number]] Glucose [Mass/volume] in Serum or Plasma [2345-7] 06/06/2024 12:00 PM 385 mg/dL N Blood chemistry[[id number]] Glucose [Mass/volume] in Serum or Plasma [2345-7] 06/06/2024 09:08 AM 293 mg/dL N Blood chemistry[[id number]] Glucose [Mass/volume] in Serum or Plasma [2345-7] 06/05/2024 04:53 PM 239 mg/dL N Blood chemistry[[id number]] Glucose [Mass/volume] in Serum or Plasma [2345-7] 06/05/2024 12:10 PM 246 mg/dL N Blood chemistry[[id number]] Glucose [Mass/volume] in Serum or Plasma [2345-7] 06/05/2024 12:02 PM 311 mg/dL N Blood chemistry[[id number]] Glucose [Mass/volume] in Serum or Plasma [2345-7] 06/05/2024 09:03 AM 163 mg/dL N Glucose [Mass/volume] in Serum or Plasma [2345-7] 06/05/2024 09:03 AM 163 mg/dL N Blood chemistry[[id number]] Glucose [Mass/volume] in Serum or Plasma [2345-7] 06/04/2024 04:33 PM 134 mg/dL N Blood chemistry[[id number]] Glucose [Mass/volume] in Serum or Plasma [2345-7] 06/04/2024 03:33 PM 142 mg/dL N Blood chemistry[[id number]] Glucose [Mass/volume] in Serum or Plasma [2345-7] 06/04/2024 11:45 AM 314 mg/dL N Blood chemistry[[id number]] Glucose [Mass/volume] in Serum or Plasma [2345-7] 06/04/2024 09:16 AM 226 mg/dL N Blood chemistry[[id number]] Glucose [Mass/volume] in Serum or Plasma [2345-7] 06/03/2024 04:18 PM 202 mg/dL N Blood chemistry[[id number]] Glucose [Mass/volume] in Serum or Plasma [2345-7] 06/03/2024 12:16 PM 100 mg/dL N Blood chemistry[[id number]] Glucose [Mass/volume] in Serum or Plasma [2345-7] 06/03/2024 12:10 PM 305 mg/dL N Blood chemistry[[id number]] Glucose [Mass/volume] in Serum or Plasma [2345-7] 06/03/2024 09:34 AM 328 mg/dL N Blood chemistry[[id number]] Glucose [Mass/volume] in Serum or Plasma [2345-7] 06/02/2024 04:15 PM 270 mg/dL N Glucose [Mass/volume] in Serum or Plasma [2345-7] 06/02/2024 04:15 PM 206 mg/dL N Blood chemistry[[id number]] Glucose [Mass/volume] in Serum or Plasma [2345-7] 06/02/2024 01:31 PM 199 mg/dL N Blood chemistry[[id number]] Glucose [Mass/volume] in Serum or Plasma [2345-7] 06/02/2024 01:30 PM 199 mg/dL N Blood chemistry[[id number]] Glucose [Mass/volume] in Serum or Plasma [2345-7] 06/02/2024 12:02 PM 338 mg/dL N Blood chemistry[[id number]] Glucose [Mass/volume] in Serum or Plasma [2345-7] 06/02/2024 09:19 AM 270 mg/dL N Blood chemistry[[id number]] Glucose [Mass/volume] in Serum or Plasma [2345-7] 06/01/2024 04:26 PM 267 mg/dL N Blood chemistry[[id number]] Glucose [Mass/volume] in Serum or Plasma [2345-7] 06/01/2024 12:45 PM 178 mg/dL N Blood chemistry[[id number]] Glucose [Mass/volume] in Serum or Plasma [2345-7] 06/01/2024 12:43 PM 346 mg/dL N Blood chemistry[[id number]] Glucose [Mass/volume] in Serum or Plasma [2345-7] 06/01/2024 10:09 AM 241 mg/dL N Blood chemistry[[id number]] Glucose [Mass/volume] in Serum or Plasma [2345-7] 05/31/2024 02:16 PM 280 mg/dL N Blood chemistry[[id number]] Glucose [Mass/volume] in Serum or Plasma [2345-7] 05/31/2024 12:21 PM 266 mg/dL N Blood chemistry[[id number]] Glucose [Mass/volume] in Serum or Plasma [2345-7] 05/31/2024 11:47 AM 219 mg/dL N Blood chemistry[[id number]] Glucose [Mass/volume] in Serum or Plasma [2345-7] 05/31/2024 06:49 AM 312 mg/dL N Blood chemistry[[id number]] Glucose [Mass/volume] in Serum or Plasma [2345-7] 05/30/2024 04:15 PM 205 mg/dL N Blood chemistry[[id number]] Glucose [Mass/volume] in Serum or Plasma [2345-7] 05/30/2024 02:36 PM 251 mg/dL N Blood chemistry[[id number]] Glucose [Mass/volume] in Serum or Plasma [2345-7] 05/30/2024 10:15 AM 299 mg/dL N Blood chemistry[[id number]] Glucose [Mass/volume] in Serum or Plasma [2345-7] 05/30/2024 10:14 AM 249 mg/dL N Blood chemistry[[id number]] Glucose [Mass/volume] in Serum or Plasma [2345-7] 05/29/2024 05:57 PM 309 mg/dL N Blood chemistry[[id number]] Glucose [Mass/volume] in Serum or Plasma [2345-7] 05/29/2024 04:23 PM 182 mg/dL N Blood chemistry[[id number]] Glucose [Mass/volume] in Serum or Plasma [2345-7] 05/29/2024 12:20 PM 238 mg/dL N Blood chemistry[[id number]] Glucose [Mass/volume] in Serum or Plasma [2345-7] 05/29/2024 09:19 AM 227 mg/dL N Blood chemistry[[id number]] Glucose [Mass/volume] in Serum or Plasma [2345-7] 05/28/2024 04:28 PM 220 mg/dL N Blood chemistry[[id number]] Glucose [Mass/volume] in Serum or Plasma [2345-7] 05/28/2024 12:39 PM 302 mg/dL N Blood chemistry[[id number]] Glucose [Mass/volume] in Serum or Plasma [2345-7] 05/28/2024 11:59 AM 354 mg/dL N Blood chemistry[[id number]] Glucose [Mass/volume] in Serum or Plasma [2345-7] 05/28/2024 09:10 AM 216 mg/dL N Blood chemistry[[id number]] Glucose [Mass/volume] in Serum or Plasma [2345-7] 05/27/2024 04:06 PM 230 mg/dL N Blood chemistry[[id number]] Glucose [Mass/volume] in Serum or Plasma [2345-7] 05/27/2024 12:19 PM 322 mg/dL N Blood chemistry[[id number]] Glucose [Mass/volume] in Serum or Plasma [2345-7] 05/27/2024 12:11 PM 214 mg/dL N Blood chemistry[[id number]] Glucose [Mass/volume] in Serum or Plasma [2345-7] 05/27/2024 11:27 AM 172 mg/dL N Blood chemistry[[id number]] Glucose [Mass/volume] in Serum or Plasma [2345-7] 05/27/2024 11:26 AM 172 mg/dL N Blood chemistry[[id number]] Glucose [Mass/volume] in Serum or Plasma [2345-7] 05/26/2024 05:26 PM 167 mg/dL N Blood chemistry[[id number]] Glucose [Mass/volume] in Serum or Plasma [2345-7] 05/26/2024 05:25 PM 167 mg/dL N COVID-19 Test Viral Antigen null flavor [null] 05/26/2024 05:00 PM See note NEG COVID-19 Test Viral Antigen Blood chemistry[[id number]] Glucose [Mass/volume] in Serum or Plasma [2345-7] 05/26/2024 12:55 PM 182 mg/dL N Glucose [Mass/volume] in Serum or Plasma [2345-7] 05/26/2024 12:55 PM 182 mg/dL N Blood chemistry[[id number]] Glucose [Mass/volume] in Serum or Plasma [2345-7] 05/26/2024 12:31 PM 262 mg/dL N Blood chemistry[[id number]] Glucose [Mass/volume] in Serum or Plasma [2345-7] 05/26/2024 09:38 AM 172 mg/dL N Blood chemistry[[id number]] Glucose [Mass/volume] in Serum or Plasma [2345-7] 05/25/2024 05:02 PM 72 mg/dL N Glucose [Mass/volume] in Serum or Plasma [2345-7] 05/25/2024 05:02 PM 72 mg/dL N Glucose [Mass/volume] in Serum or Plasma [2345-7] 05/25/2024 05:02 PM 69 mg/dL N Blood chemistry[[id number]] Glucose [Mass/volume] in Serum or Plasma [2345-7] 05/25/2024 12:38 PM 213 mg/dL N Blood chemistry[[id number]] Glucose [Mass/volume] in Serum or Plasma [2345-7] 05/25/2024 10:55 AM 161 mg/dL N Blood chemistry[[id number]] Glucose [Mass/volume] in Serum or Plasma [2345-7] 05/24/2024 04:49 PM 239 mg/dL N Blood chemistry[[id number]] Glucose [Mass/volume] in Serum or Plasma [2345-7] 05/24/2024 02:25 PM 238 mg/dL N Blood chemistry[[id number]] Glucose [Mass/volume] in Serum or Plasma [2345-7] 05/24/2024 12:08 PM 260 mg/dL N Blood chemistry[[id number]] Glucose [Mass/volume] in Serum or Plasma [2345-7] 05/24/2024 11:17 AM 216 mg/dL N Blood chemistry[[id number]] Glucose [Mass/volume] in Serum or Plasma [2345-7] 05/23/2024 05:03 PM 186 mg/dL N Blood chemistry[[id number]] Glucose [Mass/volume] in Serum or Plasma [2345-7] 05/23/2024 01:10 PM 131 mg/dL N Blood chemistry[[id number]] Glucose [Mass/volume] in Serum or Plasma [2345-7] 05/23/2024 01:06 PM 211 mg/dL N Blood chemistry[[id number]] Glucose [Mass/volume] in Serum or Plasma [2345-7] 05/23/2024 09:43 AM 186 mg/dL N Blood chemistry[[id number]] Glucose [Mass/volume] in Serum or Plasma [2345-7] 05/22/2024 04:41 PM 191 mg/dL N Blood chemistry[[id number]] Glucose [Mass/volume] in Serum or Plasma [2345-7] 05/22/2024 02:08 PM 208 mg/dL N Blood chemistry[[id number]] Glucose [Mass/volume] in Serum or Plasma [2345-7] 05/22/2024 11:41 AM 348 mg/dL N Blood chemistry[[id number]] Glucose [Mass/volume] in Serum or Plasma [2345-7] 05/22/2024 09:24 AM 294 mg/dL N Glucose [Mass/volume] in Serum or Plasma [2345-7] 05/22/2024 09:24 AM 294 mg/dL N Blood chemistry[[id number]] Glucose [Mass/volume] in Serum or Plasma [2345-7] 05/21/2024 04:08 PM 236 mg/dL N Blood chemistry[[id number]] Glucose [Mass/volume] in Serum or Plasma [2345-7] 05/21/2024 02:48 PM 179 mg/dL N Blood chemistry[[id number]] Glucose [Mass/volume] in Serum or Plasma [2345-7] 05/21/2024 11:43 AM 255 mg/dL N Blood chemistry[[id number]] Glucose [Mass/volume] in Serum or Plasma [2345-7] 05/21/2024 09:14 AM 276 mg/dL N Blood chemistry[[id number]] Glucose [Mass/volume] in Serum or Plasma [2345-7] 05/20/2024 05:16 PM 198 mg/dL N Glucose [Mass/volume] in Serum or Plasma [2345-7] 05/20/2024 05:16 PM 198 mg/dL N Blood chemistry[[id number]] Glucose [Mass/volume] in Serum or Plasma [2345-7] 05/20/2024 12:09 PM 195 mg/dL N Blood chemistry[[id number]] Glucose [Mass/volume] in Serum or Plasma [2345-7] 05/20/2024 12:07 PM 81 mg/dL N Blood chemistry[[id number]] Glucose [Mass/volume] in Serum or Plasma [2345-7] 05/20/2024 09:04 AM 201 mg/dL N COVID-19 Test Viral Antigen null flavor [null] 05/19/2024 05:00 PM See note NEG COVID-19 Test Viral Antigen Blood chemistry[[id number]] Glucose [Mass/volume] in Serum or Plasma [2345-7] 05/19/2024 04:35 PM 260 mg/dL N Blood chemistry[[id number]] Glucose [Mass/volume] in Serum or Plasma [2345-7] 05/19/2024 03:22 PM 217 mg/dL N Glucose [Mass/volume] in Serum or Plasma [2345-7] 05/19/2024 03:22 PM 217 mg/dL N Blood chemistry[[id number]] Glucose [Mass/volume] in Serum or Plasma [2345-7] 05/19/2024 12:09 PM 324 mg/dL N Blood chemistry[[id number]] Glucose [Mass/volume] in Serum or Plasma [2345-7] 05/19/2024 08:16 AM 245 mg/dL N Blood chemistry[[id number]] Glucose [Mass/volume] in Serum or Plasma [2345-7] 05/19/2024 08:14 AM 245 mg/dL N Blood chemistry[[id number]] Glucose [Mass/volume] in Serum or Plasma [2345-7] 05/18/2024 04:53 PM 84 mg/dL N Blood chemistry[[id number]] Glucose [Mass/volume] in Serum or Plasma [2345-7] 05/18/2024 12:58 PM 81 mg/dL N Blood chemistry[[id number]] Glucose [Mass/volume] in Serum or Plasma [2345-7] 05/18/2024 12:32 PM 170 mg/dL N Blood chemistry[[id number]] Glucose [Mass/volume] in Serum or Plasma [2345-7] 05/18/2024 09:48 AM 171 mg/dL N Blood chemistry[[id number]] Glucose [Mass/volume] in Serum or Plasma [2345-7] 05/17/2024 04:40 PM 93 mg/dL N Blood chemistry[[id number]] Glucose [Mass/volume] in Serum or Plasma [2345-7] 05/17/2024 12:05 PM 148 mg/dL N Glucose [Mass/volume] in Serum or Plasma [2345-7] 05/17/2024 12:05 PM 83 mg/dL N Blood chemistry[[id number]] Glucose [Mass/volume] in Serum or Plasma [2345-7] 05/17/2024 09:14 AM 110 mg/dL N Blood chemistry[[id number]] Glucose [Mass/volume] in Serum or Plasma [2345-7] 05/16/2024 05:27 PM 141 mg/dL N Blood chemistry[[id number]] Glucose [Mass/volume] in Serum or Plasma [2345-7] 05/16/2024 01:02 PM 98 mg/dL N Blood chemistry[[id number]] Glucose [Mass/volume] in Serum or Plasma [2345-7] 05/16/2024 12:38 PM 247 mg/dL N Blood chemistry[[id number]] Glucose [Mass/volume] in Serum or Plasma [2345-7] 05/16/2024 10:02 AM 145 mg/dL N Blood chemistry[[id number]] Glucose [Mass/volume] in Serum or Plasma [2345-7] 05/16/2024 06:05 AM 291 mg/dL N Blood chemistry[[id number]] Glucose [Mass/volume] in Serum or Plasma [2345-7] 05/15/2024 02:47 PM 214 mg/dL N Blood chemistry[[id number]] Glucose [Mass/volume] in Serum or Plasma [2345-7] 05/15/2024 11:05 AM 190 mg/dL N Blood chemistry[[id number]] Glucose [Mass/volume] in Serum or Plasma [2345-7] 05/15/2024 06:49 AM 327 mg/dL N Blood chemistry[[id number]] Glucose [Mass/volume] in Serum or Plasma [2345-7] 05/14/2024 05:12 PM 245 mg/dL N Blood chemistry[[id number]] Glucose [Mass/volume] in Serum or Plasma [2345-7] 05/14/2024 05:11 PM 245 mg/dL N Blood chemistry[[id number]] Glucose [Mass/volume] in Serum or Plasma [2345-7] 05/14/2024 01:09 PM 296 mg/dL N Blood chemistry[[id number]] Glucose [Mass/volume] in Serum or Plasma [2345-7] 05/14/2024 12:00 PM 381 mg/dL N Blood chemistry[[id number]] Glucose [Mass/volume] in Serum or Plasma [2345-7] 05/14/2024 11:23 AM 337 mg/dL N Blood chemistry[[id number]] Glucose [Mass/volume] in Serum or Plasma [2345-7] 05/13/2024 05:26 PM 290 mg/dL N Blood chemistry[[id number]] Glucose [Mass/volume] in Serum or Plasma [2345-7] 05/13/2024 11:51 AM 229 mg/dL N Blood chemistry[[id number]] Glucose [Mass/volume] in Serum or Plasma [2345-7] 05/13/2024 08:41 AM 268 mg/dL N Blood chemistry[[id number]] Glucose [Mass/volume] in Serum or Plasma [2345-7] 05/13/2024 06:15 AM 229 mg/dL N COVID-19 Test Viral Antigen null flavor [null] 05/12/2024 05:00 PM See note NEG COVID-19 Test Viral Antigen Blood chemistry[[id number]] Glucose [Mass/volume] in Serum or Plasma [2345-7] 05/12/2024 05:00 PM 279 mg/dL N Blood chemistry[[id number]] Glucose [Mass/volume] in Serum or Plasma [2345-7] 05/12/2024 02:21 PM 178 mg/dL N Blood chemistry[[id number]] Glucose [Mass/volume] in Serum or Plasma [2345-7] 05/12/2024 10:42 AM 212 mg/dL N Blood chemistry[[id number]] Glucose [Mass/volume] in Serum or Plasma [2345-7] 05/11/2024 04:50 PM 137 mg/dL N Blood chemistry[[id number]] Glucose [Mass/volume] in Serum or Plasma [2345-7] 05/11/2024 01:27 PM 209 mg/dL N Blood chemistry[[id number]] Glucose [Mass/volume] in Serum or Plasma [2345-7] 05/11/2024 12:06 PM 279 mg/dL N Blood chemistry[[id number]] Glucose [Mass/volume] in Serum or Plasma [2345-7] 05/11/2024 08:55 AM 164 mg/dL N Blood chemistry[[id number]] Glucose [Mass/volume] in Serum or Plasma [2345-7] 05/10/2024 05:36 PM 320 mg/dL N Blood chemistry[[id number]] Glucose [Mass/volume] in Serum or Plasma [2345-7] 05/10/2024 01:32 PM 279 mg/dL N Blood chemistry[[id number]] Glucose [Mass/volume] in Serum or Plasma [2345-7] 05/10/2024 12:57 PM 228 mg/dL N Blood chemistry[[id number]] Glucose [Mass/volume] in Serum or Plasma [2345-7] 05/10/2024 11:27 AM 210 mg/dL N Blood chemistry[[id number]] Glucose [Mass/volume] in Serum or Plasma [2345-7] 05/09/2024 05:26 PM 308 mg/dL N Blood chemistry[[id number]] Glucose [Mass/volume] in Serum or Plasma [2345-7] 05/09/2024 02:43 PM 296 mg/dL N Blood chemistry[[id number]] Glucose [Mass/volume] in Serum or Plasma [2345-7] 05/09/2024 01:18 PM 313 mg/dL N Blood chemistry[[id number]] Glucose [Mass/volume] in Serum or Plasma [2345-7] 05/09/2024 11:19 AM 344 mg/dL N Blood chemistry[[id number]] Glucose [Mass/volume] in Serum or Plasma [2345-7] 05/08/2024 03:46 PM 277 mg/dL N Blood chemistry[[id number]] Glucose [Mass/volume] in Serum or Plasma [2345-7] 05/08/2024 02:31 PM 188 mg/dL N Blood chemistry[[id number]] Glucose [Mass/volume] in Serum or Plasma [2345-7] 05/08/2024 11:49 AM 312 mg/dL N Blood chemistry[[id number]] Glucose [Mass/volume] in Serum or Plasma [2345-7] 05/08/2024 10:13 AM 262 mg/dL N Blood chemistry[[id number]] Glucose [Mass/volume] in Serum or Plasma [2345-7] 05/07/2024 04:14 PM 249 mg/dL N Blood chemistry[[id number]] Glucose [Mass/volume] in Serum or Plasma [2345-7] 05/07/2024 12:21 PM 255 mg/dL N Blood chemistry[[id number]] Glucose [Mass/volume] in Serum or Plasma [2345-7] 05/07/2024 12:14 PM 237 mg/dL N Blood chemistry[[id number]] Glucose [Mass/volume] in Serum or Plasma [2345-7] 05/07/2024 08:58 AM 352 mg/dL N Blood chemistry[[id number]] Glucose [Mass/volume] in Serum or Plasma [2345-7] 05/06/2024 05:47 PM 247 mg/dL N Blood chemistry[[id number]] Glucose [Mass/volume] in Serum or Plasma [2345-7] 05/06/2024 12:43 PM 199 mg/dL N Blood chemistry[[id number]] Glucose [Mass/volume] in Serum or Plasma [2345-7] 05/06/2024 12:00 PM 199 mg/dL N Blood chemistry[[id number]] Glucose [Mass/volume] in Serum or Plasma [2345-7] 05/06/2024 10:08 AM 238 mg/dL N Glucose [Mass/volume] in Serum or Plasma [2345-7] 05/06/2024 10:08 AM 238 mg/dL N Blood chemistry[[id number]] Glucose [Mass/volume] in Serum or Plasma [2345-7] 05/05/2024 05:36 PM 129 mg/dL N Blood chemistry[[id number]] Glucose [Mass/volume] in Serum or Plasma [2345-7] 05/05/2024 05:35 PM 129 mg/dL N COVID-19 Test Viral Antigen null flavor [null] 05/05/2024 05:00 PM See note NEG COVID-19 Test Viral Antigen Blood chemistry[[id number]] Glucose [Mass/volume] in Serum or Plasma [2345-7] 05/05/2024 12:56 PM 221 mg/dL N Blood chemistry[[id number]] Glucose [Mass/volume] in Serum or Plasma [2345-7] 05/05/2024 12:36 PM 186 mg/dL N Blood chemistry[[id number]] Glucose [Mass/volume] in Serum or Plasma [2345-7] 05/05/2024 09:17 AM 216 mg/dL N Blood chemistry[[id number]] Glucose [Mass/volume] in Serum or Plasma [2345-7] 05/04/2024 04:30 PM 233 mg/dL N Blood chemistry[[id number]] Glucose [Mass/volume] in Serum or Plasma [2345-7] 05/04/2024 12:29 PM 207 mg/dL N Blood chemistry[[id number]] Glucose [Mass/volume] in Serum or Plasma [2345-7] 05/04/2024 12:18 PM 252 mg/dL N Blood chemistry[[id number]] Glucose [Mass/volume] in Serum or Plasma [2345-7] 05/04/2024 09:29 AM 189 mg/dL N Blood chemistry[[id number]] Glucose [Mass/volume] in Serum or Plasma [2345-7] 05/03/2024 04:06 PM 194 mg/dL N Blood chemistry[[id number]] Glucose [Mass/volume] in Serum or Plasma [2345-7] 05/03/2024 01:43 PM 265 mg/dL N Blood chemistry[[id number]] Glucose [Mass/volume] in Serum or Plasma [2345-7] 05/03/2024 12:04 PM 257 mg/dL N Blood chemistry[[id number]] Glucose [Mass/volume] in Serum or Plasma [2345-7] 05/03/2024 09:22 AM 232 mg/dL N Blood chemistry[[id number]] Glucose [Mass/volume] in Serum or Plasma [2345-7] 05/02/2024 05:12 PM 78 mg/dL N Blood chemistry[[id number]] Glucose [Mass/volume] in Serum or Plasma [2345-7] 05/02/2024 12:44 PM 155 mg/dL N Blood chemistry[[id number]] Glucose [Mass/volume] in Serum or Plasma [2345-7] 05/02/2024 12:33 PM 205 mg/dL N Blood chemistry[[id number]] Glucose [Mass/volume] in Serum or Plasma [2345-7] 05/02/2024 11:12 AM 210 mg/dL N Blood chemistry[[id number]] Glucose [Mass/volume] in Serum or Plasma [2345-7] 05/01/2024 05:55 PM 105 mg/dL N Blood chemistry[[id number]] Glucose [Mass/volume] in Serum or Plasma [2345-7] 05/01/2024 01:00 PM 118 mg/dL N Blood chemistry[[id number]] Glucose [Mass/volume] in Serum or Plasma [2345-7] 05/01/2024 11:36 AM 263 mg/dL N Blood chemistry[[id number]] Glucose [Mass/volume] in Serum or Plasma [2345-7] 05/01/2024 09:58 AM 139 mg/dL N Blood chemistry[[id number]] Glucose [Mass/volume] in Serum or Plasma [2345-7] 04/30/2024 04:55 PM 73 mg/dL N Blood chemistry[[id number]] Glucose [Mass/volume] in Serum or Plasma [2345-7] 04/30/2024 12:36 PM 127 mg/dL N Glucose [Mass/volume] in Serum or Plasma [2345-7] 04/30/2024 12:36 PM 127 mg/dL N Blood chemistry[[id number]] Glucose [Mass/volume] in Serum or Plasma [2345-7] 04/30/2024 12:02 PM 234 mg/dL N Blood chemistry[[id number]] Glucose [Mass/volume] in Serum or Plasma [2345-7] 04/30/2024 09:36 AM 194 mg/dL N Blood chemistry[[id number]] Glucose [Mass/volume] in Serum or Plasma [2345-7] 04/29/2024 12:43 PM 86 mg/dL N Glucose [Mass/volume] in Serum or Plasma [2345-7] 04/29/2024 12:43 PM 86 mg/dL N Blood chemistry[[id number]] Glucose [Mass/volume] in Serum or Plasma [2345-7] 04/29/2024 12:06 PM 240 mg/dL N Blood chemistry[[id number]] Glucose [Mass/volume] in Serum or Plasma [2345-7] 04/29/2024 09:37 AM 226 mg/dL N Blood chemistry[[id number]] Glucose [Mass/volume] in Serum or Plasma [2345-7] 04/29/2024 06:07 AM 175 mg/dL N COVID-19 Test Viral Antigen null flavor [null] 2024 05:00 PM See note NEG COVID-19 Test Viral Antigen Blood chemistry[[id number]] Glucose [Mass/volume] in Serum or Plasma [2345-7] 2024 03:01 PM 154 mg/dL N Blood chemistry[[id number]] Glucose [Mass/volume] in Serum or Plasma [2345-7] 2024 03:00 PM 154 mg/dL N Blood chemistry[[id number]] Glucose [Mass/volume] in Serum or Plasma [2345-7] 2024 11:42 AM 240 mg/dL N Blood chemistry[[id number]] Glucose [Mass/volume] in Serum or Plasma [2345-7] 2024 10:32 AM 233 mg/dL N Blood chemistry[[id number]] Glucose [Mass/volume] in Serum or Plasma [2345-7] 2024 08:23 AM 154 mg/dL N Glucose [Mass/volume] in Serum or Plasma [2345-7] 2024 08:23 AM 96 mg/dL N Blood chemistry[[id number]] Glucose [Mass/volume] in Serum or Plasma [2345-7] 04/27/2024 05:07 PM 104 mg/dL N Blood chemistry[[id number]] Glucose [Mass/volume] in Serum or Plasma [2345-7] 04/27/2024 02:24 PM 87 mg/dL N Blood chemistry[[id number]] Glucose [Mass/volume] in Serum or Plasma [2345-7] 04/27/2024 01:11 PM 178 mg/dL N Blood chemistry[[id number]] Glucose [Mass/volume] in Serum or Plasma [2345-7] 04/27/2024 11:09 AM 105 mg/dL N Blood chemistry[[id number]] Glucose [Mass/volume] in Serum or Plasma [2345-7] 04/26/2024 05:46 PM 117 mg/dL N Blood chemistry[[id number]] Glucose [Mass/volume] in Serum or Plasma [2345-7] 04/26/2024 03:47 PM 126 mg/dL N Blood chemistry[[id number]] Glucose [Mass/volume] in Serum or Plasma [2345-7] 04/26/2024 01:47 PM 213 mg/dL N Blood chemistry[[id number]] Glucose [Mass/volume] in Serum or Plasma [2345-7] 04/26/2024 09:28 AM 175 mg/dL N Blood chemistry[[id number]] Glucose [Mass/volume] in Serum or Plasma [2345-7] 04/25/2024 04:06 PM 208 mg/dL N Blood chemistry[[id number]] Glucose [Mass/volume] in Serum or Plasma [2345-7] 04/25/2024 02:07 PM 188 mg/dL N Blood chemistry[[id number]] Glucose [Mass/volume] in Serum or Plasma [2345-7] 04/25/2024 12:33 PM 336 mg/dL N Blood chemistry[[id number]] Glucose [Mass/volume] in Serum or Plasma [2345-7] 04/25/2024 10:24 AM 233 mg/dL N Blood chemistry[[id number]] Glucose [Mass/volume] in Serum or Plasma [2345-7] 04/24/2024 04:58 PM 223 mg/dL N Blood chemistry[[id number]] Glucose [Mass/volume] in Serum or Plasma [2345-7] 04/24/2024 02:30 PM 216 mg/dL N Blood chemistry[[id number]] Glucose [Mass/volume] in Serum or Plasma [2345-7] 04/24/2024 12:17 PM 216 mg/dL N Blood chemistry[[id number]] Glucose [Mass/volume] in Serum or Plasma [2345-7] 04/24/2024 12:10 PM 315 mg/dL N Blood chemistry[[id number]] Glucose [Mass/volume] in Serum or Plasma [2345-7] 04/24/2024 10:07 AM 275 mg/dL N Blood chemistry[[id number]] Glucose [Mass/volume] in Serum or Plasma [2345-7] 04/23/2024 04:04 PM 55 mg/dL N Blood chemistry[[id number]] Glucose [Mass/volume] in Serum or Plasma [2345-7] 04/23/2024 12:36 PM 82 mg/dL N Blood chemistry[[id number]] Glucose [Mass/volume] in Serum or Plasma [2345-7] 04/23/2024 11:44 AM 194 mg/dL N Blood chemistry[[id number]] Glucose [Mass/volume] in Serum or Plasma [2345-7] 04/23/2024 09:20 AM 120 mg/dL N Blood chemistry[[id number]] Glucose [Mass/volume] in Serum or Plasma [2345-7] 04/23/2024 07:34 AM 109 mg/dL N Blood chemistry[[id number]] Glucose [Mass/volume] in Serum or Plasma [2345-7] 04/22/2024 04:32 PM 94 mg/dL N Blood chemistry[[id number]] Glucose [Mass/volume] in Serum or Plasma [2345-7] 04/22/2024 02:29 PM 129 mg/dL N Blood chemistry[[id number]] Glucose [Mass/volume] in Serum or Plasma [2345-7] 04/22/2024 11:54 AM 205 mg/dL N Blood chemistry[[id number]] Glucose [Mass/volume] in Serum or Plasma [2345-7] 04/22/2024 10:01 AM 152 mg/dL N COVID-19 Test Viral Antigen null flavor [null] 04/21/2024 05:00 PM See note NEG COVID-19 Test Viral Antigen Blood chemistry[[id number]] Glucose [Mass/volume] in Serum or Plasma [2345-7] 04/21/2024 04:59 PM 156 mg/dL N Glucose [Mass/volume] in Serum or Plasma [2345-7] 04/21/2024 04:59 PM 156 mg/dL N Blood chemistry[[id number]] Glucose [Mass/volume] in Serum or Plasma [2345-7] 04/21/2024 02:14 PM 237 mg/dL N Blood chemistry[[id number]] Glucose [Mass/volume] in Serum or Plasma [2345-7] 04/21/2024 12:42 PM 435 mg/dL N Blood chemistry[[id number]] Glucose [Mass/volume] in Serum or Plasma [2345-7] 04/21/2024 09:38 AM 202 mg/dL N Blood chemistry[[id number]] Glucose [Mass/volume] in Serum or Plasma [2345-7] 04/21/2024 09:37 AM 202 mg/dL N Blood chemistry[[id number]] Glucose [Mass/volume] in Serum or Plasma [2345-7] 04/20/2024 03:59 PM 114 mg/dL N Blood chemistry[[id number]] Glucose [Mass/volume] in Serum or Plasma [2345-7] 04/20/2024 12:17 PM 189 mg/dL N Blood chemistry[[id number]] Glucose [Mass/volume] in Serum or Plasma [2345-7] 04/20/2024 12:13 PM 150 mg/dL N Blood chemistry[[id number]] Glucose [Mass/volume] in Serum or Plasma [2345-7] 04/20/2024 09:23 AM 109 mg/dL N Blood chemistry[[id number]] Glucose [Mass/volume] in Serum or Plasma [2345-7] 04/19/2024 12:46 PM 203 mg/dL N Blood chemistry[[id number]] Glucose [Mass/volume] in Serum or Plasma [2345-7] 04/19/2024 12:44 PM 76 mg/dL N Blood chemistry[[id number]] Glucose [Mass/volume] in Serum or Plasma [2345-7] 04/19/2024 11:02 AM 114 mg/dL N Blood chemistry[[id number]] Glucose [Mass/volume] in Serum or Plasma [2345-7] 04/19/2024 06:58 AM 74 mg/dL N Blood chemistry[[id number]] Glucose [Mass/volume] in Serum or Plasma [2345-7] 04/18/2024 05:27 PM 81 mg/dL N Blood chemistry[[id number]] Glucose [Mass/volume] in Serum or Plasma [2345-7] 04/18/2024 12:44 PM 71 mg/dL N Blood chemistry[[id number]] Glucose [Mass/volume] in Serum or Plasma [2345-7] 04/18/2024 12:24 PM 130 mg/dL N Blood chemistry[[id number]] Glucose [Mass/volume] in Serum or Plasma [2345-7] 04/18/2024 09:50 AM 110 mg/dL N Blood chemistry[[id number]] Glucose [Mass/volume] in Serum or Plasma [2345-7] 04/17/2024 05:04 PM 71 mg/dL N Blood chemistry[[id number]] Glucose [Mass/volume] in Serum or Plasma [2345-7] 04/17/2024 12:31 PM 111 mg/dL N Blood chemistry[[id number]] Glucose [Mass/volume] in Serum or Plasma [2345-7] 04/17/2024 12:11 PM 225 mg/dL N Blood chemistry[[id number]] Glucose [Mass/volume] in Serum or Plasma [2345-7] [...] 500 mcg tablet (cyanocobalami n (vitamin B-12)) 1/2 tab = 250mcg, oral, Once A Day [...] 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/19 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 [...] 3 readings subcutane ous 1.0 11/19 Active [facility]uv[facility] - [employer] [facility] (Lutein/Zeaxan thin, [place] 3, Zinc, Vitamins) [id number] capsule ([facility] (Lutein/Zeaxan thin, [place] 3, Zinc, Vitamins)) 1, oral, At Bedtime, [...] (dulaglutide)) 0.5ml, subcutaneous, Once a Day on Sun subcutane ous 1.0 1.0 d 11/19 Active [...] Zithromax Z-Lele (azithromycin) 250 mg tablet (Zithromax Z-Elle (azithromycin) ) 1, oral, Once A Day, [...] intramusc ular 1.0 11/18 Active Afluria Qd 2022-24(3yr up)(PF) (flu vac [id number] 36mos up(pf)) 60 mcg (15 mcg x 4)/0.5 mL syringe (Afluria Qd 2022-24(3yr up)(PF) (flu vac [id number] 36mos up(pf))) 0.5ml, intramuscular , Once - One Time, clinical indication: flu vaccination intramusc ular 1.0 11/18 Active Afluria Quad 6269-3410(6mo up) (flu vaccine [id number](6mos up)) 60 mcg (15 mcg x 4)/0.5 m suspension (Afluria Quad (6mo up) (flu vaccine [id number](6mos up))) 0.5ml, intramuscular , Once - One Time intramusc ular 1.0 11/18 Active Afluria Quad 7621-2525(6mo up) (flu vaccine [id number](6mos up)) 60 mcg (15 mcg x 4)/0.5 mL suspension (Afluria Quad (6mo up) (flu vaccine [id number](6mos up))) 0.5 ml, intramuscular , Once - [...] can't take p/o, if no [place] [facility] [place] 1.0 1.0 d 2024 Active Dulcolax (bisacodyl) (bisacodyl) 5 mg tablet,delayed release (DR/EC) (Dulcolax (bisacodyl) (bisacodyl)) 2 tabs/10mg, oral, Once A Day - PRN, Give if no [place] [facility] [place].0 1.0 d 2024 Active Eliquis [...] daysDO NOT GIVE TO RENAL PATIENTS--GO TO [facility] oral 1.0 72.0 h 2024 Active Novolog [...] Active Ocuvite with Lutein (vit a,c and f-arfzjx-tmgco als) 300 mcg-200 mg-27 mg-2 mg tablet (Ocuvite with Lutein (vit a,c and s-zbsmby-nhhii als)) 1 tab, oral, At Bedtime oral [...] inject 0.75mg, subcutaneous, Once a Day on Sun subcutane ous 1.0 1.0 d 2024 Active [...] dressing topical 1.0 8.0 h 2024 Active acetaminophen 325 mg tablet (acetaminophen ) 2 tabs (650 mg), oral, Every 6 Hours - PRN, For pain/fever oral 1.0 6.0 h 2024 Active cyanocobalamin (vitamin B-12) 250 mcg tablet (cyanocobalami n (vitamin B-12)) 1 tab, oral, Once A Day oral 1.0 1.0 d 2024 Active Eliquis (apixaban) 5 mg tablet (Eliquis (apixaban)) 1 tab, oral, Twice A Day oral 1.0 12.0 h 2024 Active I-Celine (vit a,c and r-zkhxjo-vyfld als) 300 mcg-200 mg-27 mg-2 mg tablet (I-Celine (vit a,c and o-suclpf-thtev als)) 1 tab, oral, Once A Day, TI for ocuvite oral 1.0 1.0 d 2024 Active insulin aspart U-100 100 unit/mL (3 mL) insulin pen (insulin aspart U-100) Per Sliding Scale, subcutaneous, Before Meals and At Bedtime, If Blood Sugar is less than 60, call MD.If Blood Sugar is 201 to 250, give 2 Units.If Blood Sugar is 251 to 300, give 4 Units.If Blood Sugar is 301 to 350, give 6 Units.If Blood Sugar is 351 to 400, give 8 Units.If Blood Sugar is greater than 400, call MD. subcutane ous 1.0 2024 Active metoprolol tartrate 50 mg tablet (metoprolol tartrate) 1 tab, oral, Twice A Day oral 1.0 12.0 h 2024 Active nystatin 100,000 unit/gram cream (nystatin) 1 arianna, topical, Every Shift, Apply to ximena and buttocks area. topical 1.0 8.0 h 2024 Active ondansetron HCl 4 mg tablet (ondansetron HCl) 1 tab, oral, Every 6 Hours - PRN, For nausea/vomiti ng, TI for ODT oral 1.0 6.0 h 2024 Active silver sulfadiazine 1 % cream (silver sulfadiazine) 1 arianna, topical, Every Shift topical 1.0 8.0 h 2024 Active tramadol 50 mg tablet (tramadol) 1 tab, oral, Every 6 Hours - PRN, For pain, exempt R52 oral 1.0 6.0 h 2024 Active acetaminophen 325 mg tablet (acetaminophen ) 2 tabs (650mg), oral, Every 6 Hours - PRN, for pain / fever oral 1.0 6.0 h 04/03 Active amlodipine 5 mg tablet (amlodipine) 1 tab, oral, Once A Day oral 1.0 1.0 d 04/03 Active Bactrim DS (sulfamethoxaz ole-trimethopr im) 800-160 mg tablet (Bactrim DS (sulfamethoxaz ole-trimethopr im)) 1, oral, Twice A Day, 1 tab BID x7 days for infection oral 1.0 12.0 h 04/03 Active cefdinir 300 mg capsule (cefdinir) 1 cap, oral, Twice A Day, For 7 days oral 1.0 12.0 h 04/10 Active cyanocobalamin (vitamin B-12) 500 mcg tablet (cyanocobalami n (vitamin B-12)) 0.5 tab (250 mcg), oral, Once A Day oral 1.0 1.0 d 03/24 Active cyanocobalamin (vitamin B-12) 250 mcg tablet (cyanocobalami n (vitamin B-12)) 1 tab, oral, Once A Day oral 1.0 1.0 d 04/03 Active cyanocobalamin (vitamin B-12) 250 mcg tablet (cyanocobalami n (vitamin B-12)) 1 tab, oral, Once A Day oral 1.0 1.0 d 04/06 Active cyanocobalamin (vitamin B-12) 500 mcg tablet (cyanocobalami n (vitamin B-12)) 0.5 tab (250 mcg), oral, Once A Day oral 1.0 1.0 d 04/08 Active diltiazem HCl 180 mg capsule,extend ed release 24 hr (diltiazem HCl) 1 cap, oral, Once A Day oral 1.0 1.0 d 04/03 Active Eliquis (apixaban) 2.5 mg tablet (Eliquis (apixaban)) 1, oral, Twice A Day oral 1.0 12.0 h 04/03 Active Eye Health Vitamin-Minera l (vit c,q-tj-qssmi-l utein-zeaxan) 250-90-10-1 mg capsule (Eye Health Vitamin-Minera l (vit c,z-vq-mlqfs-l utein-zeaxan)) 1 cap, oral, Once A Day, TI for ocuvite oral 1.0 1.0 d 04/06 Active I-Celine (vit a,c and h-itwakc-llmge als) 300 mcg-200 mg-27 mg-2 mg tablet (I-Celine (vit a,c and d-nqsyoh-brxjl als)) 1 tab, oral, Once A Day, TI for ocuvite oral 1.0 1.0 d 04/03 Active insulin aspart U-100 100 unit/mL (3 mL) insulin pen (insulin aspart U-100) Per Sliding Scale, subcutaneous, Before Meals and [...] Blood Sugar is greater than 400, call MD., BS less than 60 or greater than 400 and symptomatic, call PCP subcutane ous 1.0 04/03 Active insulin glargine-yfgn 100 unit/mL (3 mL) insulin pen (insulin glargine-yfgn) 20 units, subcutaneous, At Bedtime subcutane ous 1.0 04/03 Active levofloxacin 500 mg tablet (levofloxacin) 1, oral, Once A Day, 1 tab daily x3 days for urinary infection oral 1.0 1.0 d 03/25 Active levofloxacin 500 mg tablet (levofloxacin) 1, oral, Once A Day, take 1 tab by mouth daily x3 days for UTI oral 1.0 1.0 d 03/27 Active lisinopril 5 mg tablet (lisinopril) 1, oral, Once A Day oral 1.0 1.0 d 04/03 Active lisinopril 2.5 mg tablet (lisinopril) 1 tab, oral, Once A Day oral 1.0 1.0 d 04/09 Active nystatin 100,000 unit/gram cream (nystatin) 1 application, topical, Every Shift, Cleanse ximena area and buttocks with NS and gauze, pat dry, and apply nystatin cream every Shift. topical 1.0 8.0 h 04/03 Active ondansetron HCl 4 mg tablet (ondansetron HCl) 1 tab, oral, Every 6 Hours - PRN, for nausea / vomiting oral 1.0 6.0 h 04/03 Active Silvadene (silver sulfadiazine) 1 % cream (Silvadene (silver sulfadiazine)) as directed, topical, Every Shift, Sacrum: Cleanse with ns and gauze, apply cream to buttock and cover with foam dressing and secure in place with tape q shift topical 1.0 8.0 h 04/01 Active tramadol 50 mg tablet (tramadol) 1 tab, oral, Every 6 Hours - PRN, for pain, exempt R52 oral 1.0 6.0 h 04/03 Active Vital Signs Date Vital Result Comment [...] 66 /min 07/10/2024 12:49 PM Body Weight (03683-6) 203.8 [lb_av ] Body Mass Index (17379-3) 30.98 kg/m2 07/10/2024 07:02 AM Heart Rate (8867-4) 70 /min 07/09/2024 05:11 PM Body Weight (52167-2) 201.4 [lb_av ] Body Mass Index (10842-7) 30.62 kg/m2 07/09/2024 10:09 AM Temperature (8310-5) 98.5 [degF] Oxygen Saturation (98460-0) 98 % Respiratory Rate (9279-1) 18 /min Heart Rate (8867-4) 59 /min 07/09/2024 09:54 AM Heart Rate (8867-4) 59 /min 07/09/2024 08:42 AM Body Weight (70865-5) 201.8 [lb_av ] Body Mass Index (51804-6) 30.68 kg/m2 07/08/2024 01:48 PM Body Weight (18669-6) 201.7 [lb_av ] Body Mass Index (27314-2) 30.67 kg/m2 07/07/2024 04:58 PM Body Weight (03701-4) 201.8 [lb_av ] Body Mass Index (50904-2) 30.68 kg/m2 07/06/2024 03:25 PM Body Weight (00922-2) 200.4 [lb_av ] Body Mass Index (02183-5) 30.47 kg/m2 07/02/2024 09:51 AM Temperature (8310-5) 98 [degF] Oxygen Saturation (77453-0) 92 % Respiratory Rate (9279-1) 17 /min 06/25/2024 07:21 AM Body Weight (28646-1) 204.6 [lb_av ] Body Mass Index (82510-5) 31.11 kg/m2 06/18/2024 11:23 AM Body Weight (09156-1) 201.4 [lb_av ] Body Mass Index (24976-1) 30.62 kg/m2 06/18/2024 10:10 AM Temperature (8310-5) 97.8 [degF] Oxygen Saturation (24360-3) 94 % Respiratory Rate (9279-1) 19 /min 06/11/2024 10:34 AM Temperature (8310-5) 98.5 [degF] Oxygen Saturation (17731-3) 94 % Respiratory Rate (9279-1) 19 /min Body Weight (91534-1) 202 [lb_av] Body Mass Index (74234-3) 30.71 kg/m2 06/10/2024 04:56 PM Body Weight (91313-0) 198.8 [lb_av ] Body Mass Index (39938-7) 30.22 kg/m2 06/09/2024 08:38 PM Body Weight (61975-9) 198.8 [lb_av ] Body Mass Index (37128-2) 30.22 kg/m2 06/06/2024 12:30 PM Body Weight (87273-8) 194.6 [lb_av ] Body Mass Index (68494-2) 29.59 kg/m2 06/05/2024 07:48 PM Temperature (8310-5) 98.1 [degF] 06/05/2024 08:23 AM Temperature (8310-5) 98 [degF] 06/04/2024 07:45 PM Temperature (8310-5) 99 [degF] 06/04/2024 01:53 PM Temperature (8310-5) 98 [degF] 06/04/2024 11:55 AM Temperature (8310-5) 97.8 [degF] Oxygen Saturation (56248-3) 95 % Respiratory Rate (9279-1) 17 /min 05/28/2024 10:43 AM Body Weight (30261-5) 203.6 [lb_av ] Body Mass Index (80077-9) 30.95 kg/m2 05/28/2024 07:55 AM Temperature (8310-5) 98.1 [degF] Oxygen Saturation (83355-1) 94 % Respiratory Rate (9279-1) 18 /min 05/21/2024 10:42 AM Oxygen Saturation (97456-3) 95 % Respiratory Rate (9279-1) 17 /min Body Weight (55561-2) 202.4 [lb_av] Body Mass Index (88527-2) 30.77 kg/m2 05/15/2024 07:59 PM Oxygen Saturation (46528-9) 98 % Respiratory Rate (9279-1) 16 /min 05/14/2024 10:22 AM Body Weight (60388-1) 198.6 [lb_av ] Body Mass Index (81257-4) 30.19 kg/m2 05/14/2024 10:18 AM Oxygen Saturation (68970-0) 95 % Respiratory Rate (9279-1) 18 /min 05/07/2024 05:42 PM Body Weight (29764-7) 201.2 [lb_av ] Body Mass Index (30401-7) 30.59 kg/m2 05/07/2024 08:12 AM Oxygen Saturation (26855-0) 98 % Respiratory Rate (9279-1) 20 /min 05/06/2024 10:53 AM Body Weight (21435-4) 202 [lb_av] Body Mass Index (26974-9) 30.71 kg/m2 05/04/2024 11:36 AM Body Weight (16983-3) 201.4 [lb_av ] Body Mass Index (15373-9) 30.62 kg/m2 05/03/2024 12:09 PM Body Weight (29709-3) 200 [lb_av] Body Mass Index (14879-6) 30.41 kg/m2 05/02/2024 06:12 PM Body Weight (09072-6) 200.8 [lb_av ] Body Mass Index (67089-6) 30.53 kg/m2 04/30/2024 08:08 AM Body Weight (33600-5) 201 [lb_av] Body Mass Index (46730-4) 30.56 kg/m2 04/23/2024 07:36 AM Body Weight (07758-3) 203.8 [lb_av ] Body Mass Index (75881-8) 30.98 kg/m2 04/08/2021 11:56 AM Body Height [...] AM Temperature (8310-5) 98.9 [degF] Oxygen Saturation (03553-0) 96 % Respiratory Rate (9279-1) 19 /min [...] AM Temperature (8310-5) 98.2 [degF] Oxygen Saturation (66293-6) 96 % Respiratory Rate (9279-1) 20 /min [...] PM Temperature (8310-5) 98 [degF] Oxygen Saturation (78062-0) 93 % Respiratory Rate (9279-1) 19 /min Heart Rate (8867-4) 80 /min Blood Pressure Systolic (8480-6) 119 mm[Hg] Blood Pressure Diastolic (8462-4) 63 mm[Hg] 08/06/2024 12:34 PM Body Weight (11698-1) 188.2 [lb_av ] Body Mass Index (52921-6) 28.61 kg/m2 08/06/2024 07:23 AM Heart Rate (8867-4) 65 /min Blood Pressure Systolic (8480-6) 139 mm[Hg] Blood Pressure Diastolic (8462-4) 65 mm[Hg] 08/06/2024 05:12 AM Blood Pressure Systolic (8480-6) 1 47 mm[Hg] Blood Pressure Diastolic (8462-4) 74 mm[Hg] 08/05/2024 06:54 PM Blood Pressure Systolic (8480-6) 1 36 mm[Hg] Blood Pressure Diastolic (8462-4) 74 mm[Hg] 08/07/2024 04:28 PM Body Weight (53526-6) 188.5 [lb_av ] Body Mass Index (37123-9) 28.66 kg/m2 08/07/2024 04:26 PM Blood Pressure [...] 74 mm[Hg] 08/08/2024 05:00 PM Body Weight (46799-9) 191 [lb_av] Body Mass Index (43520-4) 29.04 kg/m2 08/08/2024 02:20 PM Blood Pressure [...] 66 mm[Hg] 08/09/2024 04:11 PM Body Weight (82357-3) 193.6 [lb_av ] Body Mass Index (35623-3) 29.43 kg/m2 08/10/2024 10:47 PM Blood Pressure [...] 62 mm[Hg] 08/13/2024 09:30 AM Body Weight (84431-8) 196 [lb_av] Body Mass Index (48503-0) 29.8 kg/m2 08/13/2024 07:32 AM Heart Rate (8867-4) 67 /min 08/13/2024 09:41 AM Temperature (8310-5) 98.9 [degF] Oxygen Saturation (42399-7) 94 % Respiratory Rate (9279-1) 18 /min [...] 74 mm[Hg] 08/15/2024 04:27 PM Body Weight (83283-1) 196.4 [lb_av ] Body Mass Index (40521-0) 29.86 kg/m2 08/16/2024 07:04 AM Blood Pressure Systolic (8480-6) 1 29 mm[Hg] Blood Pressure Diastolic (8462-4) 67 mm[Hg] 08/16/2024 01:42 PM Blood Pressure Systolic (8480-6) 1 15 mm[Hg] Blood Pressure Diastolic (8462-4) 63 mm[Hg] 08/15/2024 11:01 PM Blood Pressure Systolic (8480-6) 1 32 mm[Hg] Blood Pressure Diastolic (8462-4) 59 mm[Hg] 08/16/2024 09:38 AM Body Weight (73030-4) 193.2 [lb_av ] Body Mass Index (82883-4) 29.37 kg/m2 08/16/2024 09:46 PM Blood Pressure Systolic (8480-6) 1 32 mm[Hg] Blood Pressure Diastolic (8462-4) 67 mm[Hg] 08/17/2024 08:15 PM Blood Pressure Systolic (8480-6) 1 43 mm[Hg] Blood Pressure Diastolic (8462-4) 66 mm[Hg] 08/17/2024 07:43 AM Heart Rate (8867-4) 54 /min Blood Pressure Systolic (8480-6) 133 mm[Hg] Blood Pressure Diastolic (8462-4) 67 mm[Hg] 08/17/2024 01:28 PM Body Weight (17511-5) 193 [lb_av] Body Mass Index (03426-4) 29.34 kg/m2 08/18/2024 07:20 AM Heart Rate [...] 76 mm[Hg] 08/20/2024 09:41 AM Body Weight (11207-6) 190 [lb_av] Body Mass Index (35440-6) 28.89 kg/m2 08/20/2024 09:37 AM Temperature (8310-5) 97.8 [degF] Oxygen Saturation (36824-9) 94 % Respiratory Rate (9279-1) 17 /min [...] 66 mm[Hg] 08/27/2024 03:45 PM Body Weight (39529-5) 192.8 [lb_av ] Body Mass Index (72304-6) 29.31 kg/m2 08/27/2024 08:35 AM Respiratory Rate (9279-1) 17 /min 08/27/2024 08:34 AM Oxygen Saturation (38854-2) 98 % 08/27/2024 08:31 AM Temperature (8310-5) [...] 63 mm[Hg] 09/03/2024 11:05 AM Body Weight (99741-9) 191 [lb_av] Body Mass Index (46301-7) 29.04 kg/m2 09/03/2024 02:37 PM Blood Pressure Systolic (8480-6) 1 19 mm[Hg] Blood Pressure Diastolic (8462-4) 68 mm[Hg] 09/02/2024 09:13 PM Blood Pressure Systolic (8480-6) 1 28 mm[Hg] Blood Pressure Diastolic (8462-4) 71 mm[Hg] 09/03/2024 02:36 PM Temperature (8310-5) 98.3 [degF] Oxygen Saturation (29178-7) 97 % Respiratory Rate (9279-1) 18 /min [...] 60 /min 09/06/2024 02:26 PM Body Weight (68755-5) 188.8 [lb_av ] Body Mass Index (31534-8) 28.7 kg/m2 09/06/2024 05:25 AM Blood Pressure [...] PM Temperature (8310-5) 98.7 [degF] Oxygen Saturation (95498-1) 92 % Respiratory Rate (9279-1) 18 /min Heart Rate (8867-4) 44 /min Blood Pressure Systolic (8480-6) 117 mm[Hg] Blood Pressure Diastolic (8462-4) 59 mm[Hg] Body Weight (09739-3) 188.4 [lb_av] Body Mass Index (55581-0) 28.64 kg/m2 09/09/2024 06:54 PM Blood Pressure [...] 66 mm[Hg] 09/17/2024 11:14 AM Body Weight (07660-5) 188 [lb_av] Body Mass Index (91865-8) 28.58 kg/m2 09/17/2024 08:52 AM Temperature (8310-5) 97 [degF] Oxygen Saturation (22032-4) 90 % Respiratory Rate (9279-1) 18 /min [...] 80 mm[Hg] 09/24/2024 09:54 AM Body Weight (57464-8) 185.6 [lb_av ] Body Mass Index (06441-5) 28.22 kg/m2 09/24/2024 09:53 AM Temperature (8310-5) 98.9 [degF] Oxygen Saturation (81748-7) 94 % Respiratory Rate (9279-1) 16 /min [...] 74 mm[Hg] 10/01/2024 09:03 AM Body Weight (68568-5) 187.2 [lb_av ] Body Mass Index (09469-6) 28.46 kg/m2 10/01/2024 08:24 AM Temperature (8310-5) 97.2 [degF] Oxygen Saturation (28690-6) 95 % Respiratory Rate (9279-1) 16 /min [...] 81 mm[Hg] 10/04/2024 10:50 AM Body Weight (39562-1) 187.2 [lb_av ] Body Mass Index (30266-1) 28.46 kg/m2 10/04/2024 05:04 AM Heart Rate [...] 67 /min 10/08/2024 01:23 PM Body Weight (12715-0) 187 [lb_av] Body Mass Index (61557-0) 28.43 kg/m2 10/08/2024 11:29 AM Temperature (8310-5) 98.5 [degF] Oxygen Saturation (22352-1) 96 % Respiratory Rate (9279-1) 16 /min [...] 63 /min 10/15/2024 07:33 AM Body Weight (50135-2) 188.2 [lb_av ] Body Mass Index (03613-4) 28.61 kg/m2 10/15/2024 05:16 AM Blood Pressure [...] 84 mm[Hg] 10/22/2024 11:23 AM Body Weight (54492-3) 189 [lb_av] Body Mass Index (00417-5) 28.73 kg/m2 10/22/2024 10:42 AM Temperature (8310-5) 98.4 [degF] Oxygen Saturation (24239-3) 94 % Respiratory Rate (9279-1) 20 /min [...] PM Temperature (8310-5) 97.8 [degF] Oxygen Saturation (83143-7) 92 % Respiratory Rate (9279-1) 19 /min Heart Rate (8867-4) 42 /min Blood Pressure Systolic (8480-6) 101 mm[Hg] Blood Pressure Diastolic (8462-4) 50 mm[Hg] 10/28/2024 06:54 PM Blood Pressure Systolic (8480-6) 1 32 mm[Hg] Blood Pressure Diastolic (8462-4) 63 mm[Hg] 10/29/2024 05:24 AM Blood Pressure Systolic (8480-6) 1 38 mm[Hg] Blood Pressure Diastolic (8462-4) 54 mm[Hg] 10/29/2024 12:44 PM Body Weight (52022-5) 188 [lb_av] Body Mass Index (98311-2) 28.58 kg/m2 10/29/2024 11:00 AM Temperature (8310-5) 98 [degF] Oxygen Saturation (84847-9) 96 % Respiratory Rate (9279-1) 17 /min [...] 67 mm[Hg] 11/04/2024 05:17 PM Body Weight (08273-8) 187.8 [lb_av ] Body Mass Index (12563-5) 28.55 kg/m2 11/04/2024 11:47 AM Blood Pressure [...] PM Temperature (8310-5) 98 [degF] Oxygen Saturation (11165-5) 93 % Respiratory Rate (9279-1) 16 /min [...] AM Temperature (8310-5) 98.9 [degF] Oxygen Saturation (50726-9) 97 % Respiratory Rate (9279-1) 18 /min [...] PM Temperature (8310-5) 98.6 [degF] Oxygen Saturation (26727-7) 96 % Respiratory Rate (9279-1) 19 /min Heart Rate (8867-4) 92 /min Blood Pressure Systolic (8480-6) 132 mm[Hg] Blood Pressure Diastolic (8462-4) 47 mm[Hg] Body Height (8302-2) 68 [in_us] 11/23/2024 10:37 AM Temperature (8310-5) 98.4 [degF] Oxygen Saturation (63114-1) 97 % Respiratory Rate (9279-1) 17 /min Heart Rate (8867-4) 73 /min Blood Pressure Systolic (8480-6) 120 mm[Hg] Blood Pressure Diastolic (8462-4) 67 mm[Hg] 11/23/2024 08:04 PM Blood Pressure Systolic (8480-6) 1 41 mm[Hg] Blood Pressure Diastolic (8462-4) 78 mm[Hg] 11/23/2024 08:05 PM Temperature (8310-5) 99.2 [degF] Oxygen Saturation (87669-3) 95 % Respiratory Rate (9279-1) 21 /min Heart Rate (8867-4) 102 /min 11/24/2024 09:40 PM Temperature (8310-5) 97.7 [degF] Oxygen Saturation (52752-2) 94 % Respiratory Rate (9279-1) 16 /min Heart Rate (8867-4) 86 /min Blood Pressure Systolic (8480-6) 117 mm[Hg] Blood Pressure Diastolic (8462-4) 77 mm[Hg] 11/25/2024 04:42 AM Blood Pressure Systolic (8480-6) 1 24 mm[Hg] Blood Pressure Diastolic (8462-4) 64 mm[Hg] 11/25/2024 08:39 AM Temperature (8310-5) 97.5 [degF] Oxygen Saturation (84668-6) 97 % Respiratory Rate (9279-1) 14 /min [...] PM Temperature (8310-5) 98.3 [degF] Oxygen Saturation (24398-3) 91 % Respiratory Rate (9279-1) 15 /min [...] PM Temperature (8310-5) 97.1 [degF] Oxygen Saturation (22199-6) 96 % Respiratory Rate (9279-1) 16 /min Heart Rate (8867-4) 61 /min Blood Pressure Systolic (8480-6) 152 mm[Hg] Blood Pressure Diastolic (8462-4) 91 mm[Hg] 11/26/2024 07:07 PM Blood Pressure Systolic (8480-6) 9 8 mm[Hg] Blood Pressure Diastolic (8462-4) 64 mm[Hg] 11/26/2024 10:40 PM Temperature (8310-5) 97.3 [degF] Oxygen Saturation (95537-3) 93 % Respiratory Rate (9279-1) 16 /min Heart Rate (8867-4) 79 /min 11/27/2024 06:50 AM Blood Pressure Systolic (8480-6) 1 11 mm[Hg] Blood Pressure Diastolic (8462-4) 68 mm[Hg] 11/27/2024 05:34 PM Temperature (8310-5) 98.9 [degF] Oxygen Saturation (62678-9) 97 % Respiratory Rate (9279-1) 16 /min Heart Rate (8867-4) 81 /min Blood Pressure Systolic (8480-6) 111 mm[Hg] Blood Pressure Diastolic (8462-4) 68 mm[Hg] 11/27/2024 01:15 PM Blood Pressure Systolic (8480-6) 1 23 mm[Hg] Blood Pressure Diastolic (8462-4) 62 mm[Hg] 11/27/2024 08:00 PM Temperature (8310-5) 98.2 [degF] Oxygen Saturation (72687-2) 92 % Respiratory Rate (9279-1) 15 /min Heart Rate (8867-4) 89 /min Blood Pressure Systolic (8480-6) 107 mm[Hg] Blood Pressure Diastolic (8462-4) 67 mm[Hg] 11/28/2024 12:27 PM Oxygen Saturation (32163-0) 94 % Respiratory Rate (9279-1) 19 /min Heart Rate (8867-4) 92 /min Blood Pressure Systolic (8480-6) 102 mm[Hg] Blood Pressure Diastolic (8462-4) 58 mm[Hg] 11/28/2024 12:26 PM Temperature (8310-5) 98.5 [degF] 11/28/2024 10:23 PM Blood Pressure Systolic (8480-6) 1 01 mm[Hg] Blood Pressure Diastolic (8462-4) 59 mm[Hg] 11/28/2024 10:21 PM Temperature (8310-5) 98.2 [degF] Oxygen Saturation (04999-3) 95 % Respiratory Rate (9279-1) 18 /min Heart Rate (8867-4) 80 /min 11/28/2024 06:43 PM Blood Pressure Systolic (8480-6) 1 08 mm[Hg] Blood Pressure Diastolic (8462-4) 54 mm[Hg] 11/29/2024 07:56 AM Temperature (8310-5) 98 [degF] Oxygen Saturation (90034-8) 94 % Respiratory Rate (9279-1) 19 /min Heart Rate (8867-4) 84 /min Blood Pressure Systolic (8480-6) 124 mm[Hg] Blood Pressure Diastolic (8462-4) 86 mm[Hg] 11/29/2024 08:47 PM Temperature (8310-5) 98.2 [degF] Oxygen Saturation (85356-4) 94 % Respiratory Rate (9279-1) 17 /min Heart Rate (8867-4) 78 /min 11/30/2024 05:11 AM Blood Pressure Systolic (8480-6) 1 27 mm[Hg] Blood Pressure Diastolic (8462-4) 72 mm[Hg] 11/29/2024 10:23 PM Blood Pressure Systolic (8480-6) 1 27 mm[Hg] Blood Pressure Diastolic (8462-4) 61 mm[Hg] 11/30/2024 08:05 AM Temperature (8310-5) 98.1 [degF] Oxygen Saturation (44256-6) 93 % Respiratory Rate (9279-1) 20 /min [...] AM Temperature (8310-5) 97.6 [degF] Oxygen Saturation (46640-5) 94 % Respiratory Rate (9279-1) 20 /min [...] AM Temperature (8310-5) 97.8 [degF] Oxygen Saturation (78416-1) 95 % Respiratory Rate (9279-1) 19 /min [...] PM Temperature (8310-5) 97.6 [degF] Oxygen Saturation (44976-9) 91 % Respiratory Rate (9279-1) 15 /min [...] PM Temperature (8310-5) 98.7 [degF] Oxygen Saturation (36974-8) 98 % Respiratory Rate (9279-1) 16 /min [...] PM Temperature (8310-5) 97.4 [degF] Oxygen Saturation (06508-5) 98 % Respiratory Rate (9279-1) 16 /min Heart Rate (8867-4) 74 /min Blood Pressure Systolic (8480-6) 112 mm[Hg] Blood Pressure Diastolic (8462-4) 68 mm[Hg] 12/03/2024 09:05 AM Temperature (8310-5) 97.7 [degF] Oxygen Saturation (43424-8) 94 % Respiratory Rate (9279-1) 16 /min Heart Rate (8867-4) 75 /min Blood Pressure Systolic (8480-6) 104 mm[Hg] Blood Pressure Diastolic (8462-4) 63 mm[Hg] 12/03/2024 07:34 AM Blood Pressure Systolic (8480-6) 1 04 mm[Hg] Blood Pressure Diastolic (8462-4) 63 mm[Hg] 12/03/2024 11:16 AM Body Weight (35937-0) 179.6 [lb_av ] Body Mass Index (93334-0) 27.31 kg/m2 12/03/2024 02:45 PM Blood Pressure Systolic (8480-6) 9 8 mm[Hg] Blood Pressure Diastolic (8462-4) 56 mm[Hg] 12/03/2024 11:26 PM Temperature (8310-5) 97.4 [degF] Oxygen Saturation (06652-5) 98 % Respiratory Rate (9279-1) 18 /min Heart Rate (8867-4) 55 /min Blood Pressure Systolic (8480-6) 113 mm[Hg] Blood Pressure Diastolic (8462-4) 64 mm[Hg] 12/03/2024 06:49 PM Blood Pressure Systolic (8480-6) 1 13 mm[Hg] Blood Pressure Diastolic (8462-4) 64 mm[Hg] 12/04/2024 08:26 AM Body Weight (04446-4) 179.4 [lb_av ] Body Mass Index (19464-7) 27.27 kg/m2 12/04/2024 08:25 AM Temperature (8310-5) 97.6 [degF] Oxygen Saturation (24225-9) 94 % Respiratory Rate (9279-1) 18 /min Heart Rate (8867-4) 76 /min Blood Pressure Systolic (8480-6) 115 mm[Hg] Blood Pressure Diastolic (8462-4) 68 mm[Hg] 12/04/2024 01:35 PM Blood Pressure Systolic (8480-6) 1 47 mm[Hg] Blood Pressure Diastolic (8462-4) 86 mm[Hg] 12/04/2024 07:19 PM Temperature (8310-5) 98.4 [degF] Oxygen Saturation (87974-7) 92 % Respiratory Rate (9279-1) 16 /min Heart Rate (8867-4) 64 /min 12/04/2024 06:24 PM Blood Pressure Systolic (8480-6) 1 47 mm[Hg] Blood Pressure Diastolic (8462-4) 94 mm[Hg] 12/04/2024 10:07 PM Blood Pressure Systolic (8480-6) 1 28 mm[Hg] Blood Pressure Diastolic (8462-4) 78 mm[Hg] 12/05/2024 06:34 AM Temperature (8310-5) 98.3 [degF] Oxygen Saturation (39184-0) 93 % Respiratory Rate (9279-1) 18 /min Heart Rate (8867-4) 65 /min Blood Pressure Systolic (8480-6) 102 mm[Hg] Blood Pressure Diastolic (8462-4) 67 mm[Hg] 12/05/2024 04:36 AM Blood Pressure Systolic (8480-6) 1 27 mm[Hg] Blood Pressure Diastolic (8462-4) 76 mm[Hg] 12/05/2024 01:34 PM Blood Pressure Systolic (8480-6) 1 10 mm[Hg] Blood Pressure Diastolic (8462-4) 71 mm[Hg] 04/05/2025 11:47 PM Temperature (8310-5) 97.1 [degF] Oxygen Saturation (05831-4) 95 % Respiratory Rate (9279-1) 18 /min Heart Rate (8867-4) 77 /min Blood Pressure Systolic (8480-6) 129 mm[Hg] Blood Pressure Diastolic (8462-4) 75 mm[Hg] 04/08/2025 10:34 AM Temperature (8310-5) 98.4 [degF] Oxygen Saturation (83308-1) 98 % Respiratory Rate (9279-1) 18 /min Heart Rate (8867-4) 99 /min Blood Pressure Systolic (8480-6) 162 mm[Hg] Blood Pressure Diastolic (8462-4) 87 mm[Hg] 04/09/2025 09:42 PM Temperature (8310-5) 97.7 [degF] Oxygen Saturation (80716-4) 96 % Respiratory Rate (9279-1) 20 /min Heart Rate (8867-4) 76 /min Blood Pressure Systolic (8480-6) 129 mm[Hg] Blood Pressure Diastolic (8462-4) 84 mm[Hg] 04/08/2025 12:24 AM Temperature (8310-5) 98.6 [degF] Oxygen Saturation (18480-4) 97 % Respiratory Rate (9279-1) 16 /min Heart Rate (8867-4) 106 /min Blood Pressure Systolic (8480-6) 129 mm[Hg] Blood Pressure Diastolic (8462-4) 82 mm[Hg] 04/08/2025 03:56 PM Body Weight (18539-3) 156.4 [lb_av ] Body Mass Index (25643-5) 23.78 kg/m2 04/08/2025 08:56 PM Temperature (8310-5) 97.4 [degF] Oxygen Saturation (68596-0) 95 % Respiratory Rate (9279-1) 15 /min Heart Rate (8867-4) 99 /min Blood Pressure Systolic (8480-6) 117 mm[Hg] Blood Pressure Diastolic (8462-4) 71 mm[Hg] 04/10/2025 10:47 AM Temperature (8310-5) 97.5 [degF] Oxygen Saturation (29515-7) 97 % Respiratory Rate (9279-1) 16 /min Heart Rate (8867-4) 91 /min Blood Pressure Systolic (8480-6) 140 mm[Hg] Blood Pressure Diastolic (8462-4) 73 mm[Hg] 12/09/2024 06:30 PM Body Height (8302-2) 68 [in_us] 04/09/2025 11:24 AM Temperature (8310-5) 98 [degF] Oxygen Saturation (75675-0) 98 % Respiratory Rate (9279-1) 28 /min Heart Rate (8867-4) 92 /min Blood Pressure Systolic (8480-6) 136 mm[Hg] Blood Pressure Diastolic (8462-4) 82 mm[Hg] 04/06/2025 03:03 PM Body Weight (18561-5) 159 [lb_av] Body Mass Index (50368-4) 24.17 kg/m2 04/06/2025 09:18 AM Temperature (8310-5) 98.4 [degF] Oxygen Saturation (20965-7) 94 % Respiratory Rate (9279-1) 20 /min Heart Rate (8867-4) 84 /min Blood Pressure Systolic (8480-6) 134 mm[Hg] Blood Pressure Diastolic (8462-4) 64 mm[Hg] 02/06/2025 03:38 PM Body Weight (47217-0) 162 [lb_av] Body Mass Index (47334-0) 24.63 kg/m2 03/06/2025 08:06 AM Body Weight (37498-5) 155.6 [lb_av ] Body Mass Index (91373-1) 23.66 kg/m2 02/05/2025 03:00 PM Body Weight (37698-4) 157.4 [lb_av ] Body Mass Index (64251-0) 23.93 kg/m2 01/27/2025 09:30 AM Body Weight (27136-8) 156.8 [lb_av ] Body Mass Index (66945-5) 23.84 kg/m2 01/25/2025 05:50 PM Body Weight (87290-9) 151 [lb_av] Body Mass Index (09913-6) 22.96 kg/m2 04/07/2025 08:02 AM Temperature (8310-5) 97.4 [degF] Oxygen Saturation (78538-6) 99 % Respiratory Rate (9279-1) 15 /min Heart Rate (8867-4) 91 /min Blood Pressure Systolic (8480-6) 130 mm[Hg] Blood Pressure Diastolic (8462-4) 85 mm[Hg] 02/03/2025 09:11 AM Body Weight (79598-4) 157.9 [lb_av ] Body Mass Index (25801-1) 24.01 kg/m2 01/12/2025 03:15 PM Body Weight (95649-5) 163.6 [lb_av ] Body Mass Index (09147-5) 24.87 kg/m2 04/06/2025 10:23 PM Temperature (8310-5) 97.6 [degF] Oxygen Saturation (83599-2) 98 % Respiratory Rate (9279-1) 16 /min Heart Rate (8867-4) 81 /min Blood Pressure Systolic (8480-6) 165 mm[Hg] Blood Pressure Diastolic (8462-4) 85 mm[Hg] 02/18/2025 12:05 PM Body Weight (89492-4) 157.2 [lb_av ] Body Mass Index (99630-9) 23.9 kg/m2 02/07/2025 05:00 PM Body Weight (87404-8) 159.7 [lb_av ] Body Mass Index (83277-4) 24.28 kg/m2 04/05/2025 04:46 PM Body Weight (86296-9) 155 [lb_av] Body Mass Index (04925-2) 23.57 kg/m2 04/04/2025 04:13 PM Body Weight (58055-1) 155.4 [lb_av ] Body Mass Index (08380-1) 23.63 kg/m2 04/10/2025 09:40 PM Temperature (8310-5) 98.3 [degF] Oxygen Saturation (24305-5) 96 % Respiratory Rate (9279-1) 20 /min Heart Rate (8867-4) 77 /min Blood Pressure Systolic (8480-6) 128 mm[Hg] Blood Pressure Diastolic (8462-4) 69 mm[Hg] 04/11/2025 05:11 AM Temperature (8310-5) 97.4 [degF] Oxygen Saturation (02893-1) 95 % Respiratory Rate (9279-1) 15 /min Heart Rate (8867-4) 110 /min Blood Pressure Systolic (8480-6) 157 mm[Hg] Blood Pressure Diastolic (8462-4) 96 mm[Hg] 04/11/2025 11:41 PM Temperature (8310-5) 97.7 [degF] Oxygen Saturation (11466-2) 97 % Respiratory Rate (9279-1) 17 /min Heart Rate (8867-4) 85 /min Blood Pressure Systolic (8480-6) 143 mm[Hg] Blood Pressure Diastolic (8462-4) 82 mm[Hg] 04/12/2025 07:00 AM Temperature (8310-5) 96.3 [degF] Oxygen Saturation (27549-4) 99 % Respiratory Rate (9279-1) 18 /min Heart Rate (8867-4) 92 /min Blood Pressure Systolic (8480-6) 153 mm[Hg] Blood Pressure Diastolic (8462-4) 88 mm[Hg] 04/13/2025 01:00 AM Temperature (8310-5) 97 [degF] Oxygen Saturation (70833-4) 97 % Respiratory Rate (9279-1) 19 /min Heart Rate (8867-4) 79 /min Blood Pressure Systolic (8480-6) 142 mm[Hg] Blood Pressure Diastolic (8462-4) 76 mm[Hg] 04/13/2025 09:29 AM Temperature (8310-5) 97.1 [degF] Oxygen Saturation (12046-7) 94 % Respiratory Rate (9279-1) 16 /min Heart Rate (8867-4) 89 /min Blood Pressure Systolic (8480-6) 135 mm[Hg] Blood Pressure Diastolic (8462-4) 71 mm[Hg] 04/13/2025 08:52 PM Temperature (8310-5) 97.4 [degF] Oxygen Saturation (24065-6) 95 % Respiratory Rate (9279-1) 16 /min Heart Rate (8867-4) 98 /min Blood Pressure Systolic (8480-6) 135 mm[Hg] Blood Pressure Diastolic (8462-4) 80 mm[Hg] 04/14/2025 08:53 AM Temperature (8310-5) 97.9 [degF] Oxygen Saturation (04183-0) 96 % Respiratory Rate (9279-1) 16 /min Heart Rate (8867-4) 86 /min Blood Pressure Systolic (8480-6) 155 mm[Hg] Blood Pressure Diastolic (8462-4) 87 mm[Hg] 04/14/2025 07:50 PM Temperature (8310-5) 98.1 [degF] Oxygen Saturation (40414-6) 97 % Respiratory Rate (9279-1) 15 /min Heart Rate (8867-4) 97 /min Blood Pressure Systolic (8480-6) 142 mm[Hg] Blood Pressure Diastolic (8462-4) 78 mm[Hg] 04/15/2025 09:27 AM Temperature (8310-5) 97.6 [degF] Oxygen Saturation (08835-9) 99 % Respiratory Rate (9279-1) 16 /min Heart Rate (8867-4) 85 /min Blood Pressure Systolic (8480-6) 139 mm[Hg] Blood Pressure Diastolic (8462-4) 88 mm[Hg] 04/15/2025 03:17 PM Body Weight (04619-6) 145.6 [lb_av ] Body Mass Index (15864-1) 22.14 kg/m2 04/15/2025 09:53 PM Temperature (8310-5) 97.4 [degF] Oxygen Saturation (86902-9) 97 % Respiratory Rate (9279-1) 15 /min Heart Rate (8867-4) 91 /min Blood Pressure Systolic (8480-6) 136 mm[Hg] Blood Pressure Diastolic (8462-4) 79 mm[Hg] 04/16/2025 06:37 PM Temperature (8310-5) 97.8 [degF] Oxygen Saturation (63598-9) 98 % Respiratory Rate (9279-1) 16 /min Heart Rate (8867-4) 92 /min Blood Pressure Systolic (8480-6) 165 mm[Hg] Blood Pressure Diastolic (8462-4) 91 mm[Hg] 04/16/2025 05:47 PM Temperature (8310-5) 98.2 [degF] Oxygen Saturation (08148-9) 99 % Respiratory Rate (9279-1) 15 /min Heart Rate (8867-4) 85 /min Blood Pressure Systolic (8480-6) 142 mm[Hg] Blood Pressure Diastolic (8462-4) 88 mm[Hg] 04/17/2025 08:09 AM Temperature (8310-5) 97.3 [degF] Oxygen Saturation (97907-6) 98 % Respiratory Rate (9279-1) 18 /min Heart Rate (8867-4) 87 /min Blood Pressure Systolic (8480-6) 158 mm[Hg] Blood Pressure Diastolic (8462-4) 85 mm[Hg] 04/18/2025 12:09 AM Temperature (8310-5) 98.4 [degF] Oxygen Saturation (94500-1) 97 % Respiratory Rate (9279-1) 17 /min Heart Rate (8867-4) 77 /min Blood Pressure Systolic (8480-6) 142 mm[Hg] Blood Pressure Diastolic (8462-4) 81 mm[Hg] 04/18/2025 10:12 AM Temperature (8310-5) 97.6 [degF] Oxygen Saturation (30187-8) 98 % Respiratory Rate (9279-1) 14 /min Heart Rate (8867-4) 83 /min Blood Pressure Systolic (8480-6) 147 mm[Hg] Blood Pressure Diastolic (8462-4) 86 mm[Hg] 04/19/2025 12:47 AM Temperature (8310-5) 98.5 [degF] Oxygen Saturation (27522-1) 96 % Respiratory Rate (9279-1) 18 /min Heart Rate (8867-4) 77 /min Blood Pressure Systolic (8480-6) 139 mm[Hg] Blood Pressure Diastolic (8462-4) 76 mm[Hg] 04/19/2025 10:00 AM Temperature (8310-5) 96.3 [degF] Oxygen Saturation (93058-3) 99 % Respiratory Rate (9279-1) 17 /min Heart Rate (8867-4) 91 /min Blood Pressure Systolic (8480-6) 104 mm[Hg] Blood Pressure Diastolic (8462-4) 80 mm[Hg] 04/20/2025 12:37 AM Temperature (8310-5) 97.5 [degF] Oxygen Saturation (44295-1) 98 % Respiratory Rate (9279-1) 18 /min Heart Rate (8867-4) 76 /min Blood Pressure Systolic (8480-6) 126 mm[Hg] Blood Pressure Diastolic (8462-4) 75 mm[Hg] 04/20/2025 09:33 PM Temperature (8310-5) 96.7 [degF] Oxygen Saturation (74661-9) 97 % Respiratory Rate (9279-1) 16 /min Heart Rate (8867-4) 84 /min Blood Pressure Systolic (8480-6) 152 mm[Hg] Blood Pressure Diastolic (8462-4) 88 mm[Hg] 04/21/2025 09:45 AM Temperature (8310-5) 98.4 [degF] Oxygen Saturation (18823-7) 99 % Respiratory Rate (9279-1) 17 /min Heart Rate (8867-4) 76 /min Blood Pressure Systolic (8480-6) 164 mm[Hg] Blood Pressure Diastolic (8462-4) 63 mm[Hg] 04/21/2025 09:11 PM Temperature (8310-5) 97 [degF] Oxygen Saturation (81399-5) 97 % Respiratory Rate (9279-1) 16 /min Heart Rate (8867-4) 98 /min Blood Pressure Systolic (8480-6) 155 mm[Hg] Blood Pressure Diastolic (8462-4) 98 mm[Hg] 04/22/2025 10:13 AM Temperature (8310-5) 97.7 [degF] Oxygen Saturation (98512-2) 98 % Respiratory Rate (9279-1) 17 /min Heart Rate (8867-4) 108 /min Blood Pressure Systolic (8480-6) 147 mm[Hg] Blood Pressure Diastolic (8462-4) 95 mm[Hg] Social History Element Description Date Comment Tobacco smoking status NHIS Never smoker Encounters Type CPT Code Date Location Provider Indication s encounter report 04/05/2021 03:0 7 PM - 11/18/2024 05:04 AM GOKUL PHELPS MD 02 encounter report 04/05/2021 03:0 7 PM - 11/24/2024 04:49 PM GOKUL PHELPS MD 02 encounter report 04/05/2021 03:0 7 PM - 12/05/2024 07:00 PM GOKUL PHELPS MD 02 encounter report 04/05/2021 03:07 PM Diana Denise DO 02 Advance Directives Directive Description Verification Date Supporting Document(s) Other Directive
--- NOTE | 2025-04-22 20:02 | XRR_ITS ---
PROCEDURE INFORMATION: Exam: XR Chest Exam date and time: 04/22/2025 8:30 PM Age: 74 years old Clinical indication: Other: A-fib, AMS; Additional info: Afib rvr, AMS TECHNIQUE: Imaging protocol: Radiologic exam of the chest. Views: 1 view. COMPARISON: CR XR chest 1V portable [id number] 12/25/2024 5:35 PM FINDINGS: Lungs: There are low lung volumes present. There are nonspecific opacities lower lobes could represent atelectasis correlate clinically Pleural spaces: Unremarkable. No pleural effusion. No pneumothorax. Heart/Mediastinum: Heart is enlarged Bones/joints: Unremarkable. Gastrointestinal tract: This air-filled distended stomach XR/XR chest 1V portable [id number] IMPRESSION: Cardiomegaly Low lung volumes with opacities lower lobes nonspecific could represent atelectasis. Correlate clinically
--- NOTE | 2025-04-22 20:05 | CTR_ITS ---
PROCEDURE INFORMATION: Exam: CT Head Without Contrast Exam date and time: 04/22/2025 8:49 PM Age: 74 years old Clinical indication: Altered mental status/memory loss; Additional info: AMS TECHNIQUE: Imaging protocol: Computed tomography of the head without contrast. Radiation optimization: All CT scans at this facility use at least one of these dose optimization techniques: automated exposure control; mA and/or kV adjustment per patient size (includes targeted exams where dose is matched to clinical indication); or iterative reconstruction. COMPARISON: CT head wo con* [id number] 11/24/2024 5:23 PM RADIATION DOSE METRICS: Total DLP (mGy-cm): 1187.52 FINDINGS: Brain: See Cerebral ventricles finding. Cerebral ventricles: Moderate to severe involutional changes of the ventricles and sulci. Chronic small-vessel ischemic change. Encephalomalacia changes involving the right temporal and parietal lobes, as well as right insular cortex, not significantly changed compared to prior. Lacunar foci in the bilateral basal ganglia and thalami. Paranasal sinuses: Visualized sinuses are unremarkable. No fluid levels. Mastoid air cells: Visualized mastoid air cells are well aerated. Bones: Unremarkable. No acute fracture. Soft tissues: Unremarkable. CT/CT head wo con* [id number] IMPRESSION: No definite acute intracranial abnormality. Chronic encephalomalacia changes as above.
[2025-04-22 20:21] LABS: Glucose Urine UA Negative (Normal); Nitrate Urine Negative (Negative); Specific Gravity, Urine 1.007 (1.005-1.030)
[2025-04-22] MEDS: acetaminophen 1,000 MG/100 ML PIGGYBACK 400 MG IV (20:30)
[2025-04-22] MEDS: metroNIDAZOLE IV 500 MG/100 ML PREMIX 100 MG IV (20:31)
[2025-04-22 20:36] LABS: Add Urine Microscopic? YES
--- NOTE | 2025-04-22 20:44 | CTR_ITS ---
PROCEDURE INFORMATION: Exam: CT Chest Without Contrast; Diagnostic Exam date and time: 04/22/2025 8:54 PM Age: 74 years old Clinical indication: Abnormal findings; Abnormal radiologic finding of the abdomen; Radiologic exam and body structure: Chest xray; Fever; Abnormal radiologic exam of lung or chest; Other: AMS; Prior surgery; Surgery date: 6+ months; Surgery type: Pelvic surgery; Additional info: Ams/fever/cxr findings, w/o TECHNIQUE: Imaging protocol: Diagnostic computed tomography of the chest without contrast. Radiation optimization: All CT scans at this facility use at least one of these dose optimization techniques: automated exposure control; mA and/or kV adjustment per patient size (includes targeted exams where dose is matched to clinical indication); or iterative reconstruction. COMPARISON: CR (CHEST, ) 04/22/2025 8:30 PM RADIATION DOSE METRICS: Total DLP (mGy-cm): 927.33 FINDINGS: Lungs: There are findings suspicious for developing interstitial edema early presentation. Calcified granuloma present right lower lobe. Pleural spaces: There are small bilateral pleural effusions with compressive atelectasis in the dependent lungs. Heart: Heart is enlarged. Coronary artery calcifications demonstrated. Small pericardial effusion demonstrated. Lymph nodes: There are calcified subcarinal and right hilar lymph nodes which could be reactive inflammatory. Vasculature: Unremarkable. No aortic aneurysm. Liver: There are calcified granulomas in the liver and spleen. Gallbladder and biliary ducts: There is nonspecific distension of the gallbladder with gallstones and thickened wall. Acute calculous cholecystitis not excluded. Unremarkable. No acute fracture. Bones/joints: Unremarkable. No acute fracture. Soft tissues: Unremarkable. PROCEDURE INFORMATION: Exam: CT Abdomen And Pelvis Without Contrast Exam date and time: 04/22/2025 8:54 PM Age: 74 years old Clinical indication: Abnormal findings; Abnormal radiologic finding of the abdomen; Radiologic exam and body structure: Chest xray; Fever; Abnormal radiologic exam of lung or chest; Other: AMS; Prior surgery; Surgery date: 6+ months; Surgery type: Pelvic surgery; Additional info: Ams/fever/cxr findings, w/o TECHNIQUE: Imaging protocol: Computed tomography of the abdomen and pelvis without contrast. Radiation optimization: All CT scans at this facility use at least one of these dose optimization techniques: automated exposure control; mA and/or kV adjustment per patient size (includes targeted exams where dose is matched to clinical indication); or iterative reconstruction. COMPARISON: CT kidney stone [id number] 03/31/2025 4:48 PM RADIATION DOSE METRICS: Total DLP (mGy-cm): 927.33 FINDINGS: Liver: There is a hypodensity in the liver measuring 1.6 cm most suggestive of liver cysts. Calcified granuloma present in the liver. Gallbladder and biliary ducts: Distended thickened gallbladder with gallstone present suspicious signs suggestive of for acute calculus cholecystitis consider for further workup to include right upper quadrant ultrasound. Pancreas: Unremarkable. No ductal dilation. Spleen: Calcified granulomas present. No splenomegaly. Adrenal glands: Normal. No mass. Kidneys and ureters: There is thickening of the renal pelvis ureters or urinary bladder. Urinary bladder contains Regan catheter and is collapsed. The possibility of infection can not be excluded consider further workup to include urinalysis correlation. Stomach and bowel: Bowel demonstrate no obstruction. There is moderate amount of stool loading of the level of the rectosigmoid most suggestive of significant constipation. Appendix: The appendix is noninflamed was visualized. Intraperitoneal space: There is no intra abdominopelvic free air or free fluid present. Vasculature: Unremarkable. No abdominal aortic aneurysm. Lymph nodes: Mildly enlarged left periaortic retroperitoneal lymph nodes present 1.3 cm. There is aortocaval 1.2 cm and a single pericaval 1.4 cm large nodes could be reactive inflammatory. There is Mayra celiac 2.2 and 2.7 cm adenopathy. Urinary bladder: Abnormal thickened collapsed bladder present with Regan catheter. Correlate to exclude infection. Reproductive: Unremarkable as visualized. Bones/joints: Patient is status post surgical open surgical fixation of a comminuted fracture of the superomedial posterior column of the left acetabulum there is a joint effusion in position with findings of surgical plates and screws. There is significant edema around the muscles and soft tissues of the left thigh with some intramuscular hematoma formation and subcutaneous edema and fluid. There findings of chronic spondylolisthesis L5 over S1 estimated at 9 mm. Soft tissues: Soft tissue edema and intramuscular hematoma present around surgical site within the left hip. Other findings: None [place] [id number] IMPRESSION: 1. Findings most suspicious cells suggestive for decompensated congestive heart failure pulmonary edema and bilateral pleural effusions small. 2. Cardiomegaly. 3. Findings of prior granulomatous exposure. 4. Distended gallbladder with gallstones in the upper abdomen . Acute calculus cholecystitis not excluded consider further workup to include right upper quadrant ultrasound. IMPRESSION: 1. Findings suspicious for acute calculus cholecystitis further workup recommended to include right upper quadrant ultrasound. 2. Thickening edema renal pelvis ureters urinary bladder , findings concerning for infection consider further correlation to include urinalysis. 3. Findings of constipation without obstruction 4. Postsurgical changes from recent open surgical fixation reduction of comminuted fracture of the left acetabulum with presence of joint effusion edema of the surrounding soft tissues and intramuscular hematoma. 5. Chronic spondylolisthesis L5 over S1 6. Nonspecific retroperitoneal adenopathy similar findings on prior exam could be reactive inflammatory further evaluation recommended, lymphoproliferative disorder not excluded.
[2025-04-22 20:45] LABS: Hematocrit 38.7 % (37-53); Hemoglobin 12.00 g/dL (11.27-16.99); Mean Corpuscular HGB Conc 31.0 g/dL (30-55); Mean Corpuscular Hemoglobin 29.2 pg (27-33); Mean Corpuscular Volume 94.2 fl (82-101); Nucleated Red Blood Cells % 0 %; Platelet Count 356 10^3/cmm (157-399); Red Blood Count 4.11 10^6/uL (3.85-5.65); White Blood Count 12.99 10^3/uL (3.29-11.43)
[2025-04-22 20:58] LABS: Troponin(5th) Baseline 45 ng/L (0-15)
--- NOTE | 2025-04-22 21:07 | W.ED.AMS ---
HPI - Altered Mental Status General: Chief Complaint: Altered Mental Status Stated Complaint: ams, fever Time Seen by Provider: 04/22/25 19:57 Source: EMS and old records reviewed Mode of arrival: EMS Limitations: altered mental status History of Present Illness: This patient is a 74-year-old male with past medical history of atrial fibrillation with RVR, CVA, recent urosepsis and chronic indwelling Regan catheter who was brought in by EMS from group home due to altered mental status and fever. This patient was hospitalized here at the end of March for urosepsis, at baseline is alert and oriented x 4 but apparently last night became altered and now only responsive to painful stimuli. Temperature 103.4 on arrival, he is in A-fib with RVR rate jumping from 160-180. Appearing lethargic and acutely ill, however he is not hypotensive and is oxygenating well on room air. He has a chronic indwelling Regan catheter. Cannot provide any history, review of systems unobtainable. MD complaint: altered mental status Onset (ago): day(s) (24 hrs) Timing confirmed by: other ([place] staff) Consistency of symptoms: Constant Context: recent fever Related Data Home Medications ?Medication ?Instructions ?Recorded ?Confirmed tramadol 50 mg tablet 50 mg PO Q6H PRN Pain 02/12/22 04/01/25 acetaminophen 325 mg tablet 650 mg PO Q6H PRN PAIN OR FEVER 07/08/23 04/01/25 apixaban 5 mg tablet (Eliquis) 5 mg PO BID 07/08/23 04/01/25 vit C 50 mg-E 15 unit-zinc cit 4.5 1 tab PO BEDTIME 07/08/23 04/01/25 mg-lutein 2.5 mg-zeaxan chew tablet ([facility]) cyanocobalamin (vitamin B-12) 500 250 mcg PO DAILY 01/24/24 04/01/25 mcg tablet insulin aspart U-100 100 unit/mL See Rx Instructions .Route .COMPLEX 01/24/24 04/01/25 (3 mL) subcutaneous pen (Novolog FlexPen U-100 Insulin aspart) amlodipine 5 mg tablet 5 mg PO DAILY 11/18/24 04/01/25 Held on 04/03/25. Instructions: hold till seen by pcp nystatin 100,000 unit/gram topical See Rx Instructions .Route .COMPLEX 04/01/25 04/01/25 cream silver sulfadiazine 1 % topical See Rx Instructions .Route .COMPLEX 04/01/25 04/01/25 cream Previous Rx's ?Medication ?Instructions ?Recorded ondansetron 4 mg disintegrating 4 mg PO Q6H PRN nausea and 11/24/24 tablet vomiting #14 tabs lisinopril 5 mg tablet 2.5 mg (1/2 x 5 mg) PO DAILY #30 04/03/25 tabs metoprolol tartrate 25 mg tablet 50 mg (2 x 25 mg) PO BID@0900,2100 04/03/25 #90 tabs Allergies Allergy/AdvReac Type Severity Reaction Status Date / Time Penicillins Allergy ALGY-Rash Verified 12/21/24 11:05 Review of Systems General: Reports: ROS unobtainable due to mental status PFS ED PFSH: Medical History Chronic indwelling Regan catheter Atrial fibrillation with rapid ventricular response Peripheral neuropathy CAD (coronary artery disease) Depression Chronic anticoagulation CVA (cerebral vascular accident) 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 CKD (chronic kidney disease) Baseline creatinine 1.9 Poorly controlled type 2 diabetes mellitus Dyslipidemia DVT (deep venous thrombosis) HTN (hypertension) Polycythemia Atrial fibrillation Surgical History S/P ORIF (open reduction internal fixation) fracture No pertinent past surgical history Family History Other CAD (coronary artery disease) Cancer Social History Smoking and tobacco/nicotine status: former use of tobacco/nicotine Quit status (tobacco/nicotine): has quit using Year quit tobacco: 2010 Former quit date comment: Due to stroke Alcohol intake: former Year of sobriety/quit date alcohol: 2010 Former alcohol use details: Never heavy drinker Substance/Drug Use: never Additional social history: Next of kin is his brother Michael Mcintosh who is 69 years old patient wants full CODE STATUS Caregiver/support person: No Household members: none Housing: House 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 Ill-appearing, lethargic HENMT: COMMON NORMALS: normocephalic and atraumatic HEAD & SCALP: normocephalic and atraumatic OTHER: Dry oral mucosa Eye: OTHER: Pupils sluggish, eyes are tracking cross midline Neck/C-Spine: COMMON NORMALS: full ROM and no JVD Chest: COMMONS NORMALS: normal inspection of the chest Resp: COMMON NORMALS: No retractions, No use of accessory muscles and clear to auscultation bilaterally EFFORT & INSPECTION: Yes tachypneic AUSCULTATION: clear to auscultation bilaterally Cardio: COMMON NORMALS: no JVD RATE: tachycardic RHYTHM: abnormal rhythm irregularly irregular GI: COMMON NORMALS: Soft to palpation and non-tender PALPATION: Yes Soft to palpation Extremity: NARRATIVE EXTREMITY EXAM: Bilateral venous stasis changes to lower extremities Neuro: MOTOR EXAM: no tremor noted OTHER: Spontaneously moves all extremities, specifically in response to pain. Does not follow any verbal cues or commands. Course Vital Signs: Vital signs: Vital Signs Temperature 102.1 F H 04/23/25 00:30 Pulse Rate 135 H 04/23/25 01:15 Respiratory Rate 30 H 04/23/25 00:30 Blood Pressure 111/77 04/23/25 01:15 Pulse Oximetry 100 04/23/25 01:15 Oxygen Delivery Me thod Room Air 04/23/25 00:45 Oxygen Flow Rate 2 04/23/25 00:30 MDM - Altered Mental Status Medical Decision Making This patient presented by ambulance with altered mental status from group home, febrile with temp of 104.1 on arrival. Blood pressure hypertensive, however heart rate initially in the 180s as he is in A-fib with RVR. Recently admitted here for urosepsis, had been at baseline mentation prior to 24 hours ago when he became altered. Responsive only to painful stimuli at initial presentation, no evidence of focal neurological deficit. A head CT without contrast was negative for any acute intracranial hemorrhage. Blood cultures are ordered and he is started preemptively on IV antibiotics. Mild leukocytosis, lactic acid 3.8. Appears to be signs of UTI and urinalysis, however CT imaging of the abdomen pelvis showing concerns for acute calculous cystitis. Right upper quadrant ultrasound confirms significant dilation of the gallbladder, and after speaking with Dr. Gresham, general surgeon, here at [facility], recommending transfer to higher level of care, likely for interventional radiology so that they can decompress the gallbladder in place a tube. I spoke to Dr. Lr, interventional radiologist at [facility] in [place], who is agreeing to see the patient and decompress the gallbladder and placed the tube pending transfer. Spoke to Dr. Cunha, hospitalist who is accepting patient for transfer. Patient has maintained her blood pressure, will not give pressors at this time but she is recommending that if pressure improves to give some diltiazem for rate control. Lab Data 04/22/25 20:10 04/22/25 20:10 Radiology Impressions Chest X-Ray 04/22/25 20:02 IMPRESSION: Cardiomegaly Low lung volumes with opacities lower lobes nonspecific could represent atelectasis. Correlate clinically Head CT 04/22/25 20:05 IMPRESSION: No definite acute intracranial abnormality. Chronic encephalomalacia changes as above. Chest/Abdomen/Pelvis CT 04/22/25 20:44 IMPRESSION: 1. Findings most suspicious cells suggestive for decompensated congestive heart failure pulmonary edema and bilateral pleural effusions small. 2. Cardiomegaly. 3. Findings of prior granulomatous exposure. 4. Distended gallbladder with gallstones in the upper abdomen . Acute calculus cholecystitis not excluded consider further workup to include right upper quadrant ultrasound. IMPRESSION: 1. Findings suspicious for acute calculus cholecystitis further workup recommended to include right upper quadrant ultrasound. 2. Thickening edema renal pelvis ureters urinary bladder , findings concerning for infection consider further correlation to include urinalysis. 3. Findings of constipation without obstruction 4. Postsurgical changes from recent open surgical fixation reduction of comminuted fracture of the left acetabulum with presence of joint effusion edema of the surrounding soft tissues and intramuscular hematoma. 5. Chronic spondylolisthesis L5 over S1 6. Nonspecific retroperitoneal adenopathy similar findings on prior exam could be reactive inflammatory further evaluation recommended, lymphoproliferative disorder not excluded. Gallbladder Ultrasound 04/22/25 22:04 IMPRESSION: Gallbladder distended up to 10.7 cm in length, maximum transverse distension of 6.2 cm. Gallbladder sludge plus questionable stone in the gallbladder neck. Findings raise possibility of gallbladder hydrops. Laboratory Results WBC 12.99 10^3/uL (3.29-11.43) H 04/22/25 20:10 RBC 4.11 10^6/uL (3.85-5.65) 04/22/25 20:10 Hgb 12.00 g/dL (11.27-16.99) 04/22/25 20:10 Hct 38.7 % (37-53) 04/22/25 20:10 MCV 94.2 fl (82-101) 04/22/25 20:10 MCH 29.2 pg (27-33) 04/22/25 20:10 MCHC 31.0 g/dL (30-55) 04/22/25 20:10 RDW 17.4 % (12.1-15.1) H 04/22/25 20:10 Plt Count 356 10^3/cmm (157-399) 04/22/25 20:10 MPV 9.9 fL (7.4-10.4) 04/22/25 20:10 Neut % (Auto) 94.1 % 04/22/25 20:10 Lymph % (Auto) 3.8 % 04/22/25 20:10 [place] % (Auto) 0.7 % 04/22/25 20:10 Eos % (Auto) 0.1 % 04/22/25 20:10 Baso % (Auto) 0.4 % 04/22/25 20:10 Neut # (Auto) 12.23 10^3/uL (1.8-7.7) H 04/22/25 20:10 Lymph # (Auto) 0.5 10^3/uL (0.8-4.8) L 04/22/25 20:10 [place] # (Auto) 0.1 10^3/uL (0.2-0.9) L 04/22/25 20:10 Eos # (Auto) 0.0 10^3/uL (0.0-0.8) 04/22/25 20:10 Baso # (Auto) 0.1 10^3/uL (0.0-0.1) 04/22/25 20:10 Nucleated RBC % (auto) 0 % 04/22/25 20:10 Nucleated RBCs # 0.0 /100WBC 04/22/25 20:10 Sodium 133 mmol/L (136-145) L 04/22/25 20:10 Potassium 5.0 mmol/L (3.5-5.1) 04/22/25 20:10 Chloride 97 mmol/L (98-107) L 04/22/25 20:10 Carbon Dioxide 23 mmol/L (22-29) 04/22/25 20:10 Anion Gap 18.0 (5-19) 04/22/25 20:10 BUN 28 mg/dL (8-23) H 04/22/25 20:10 Creatinine 1.1 mg/dL (0.7-1.2) 04/22/25 20:10 GFR Calculation Not Reportable 04/22/25 20:10 Glucose 211 mg/dL (65-115) H 04/22/25 20:10 Calculated Osmolality 288 mOsm/kg (285-295) 04/22/25 20:10 Lactic Acid 3.8 mmol/L (0.5-2.2) H 04/22/25 20:10 Lactic Acid (Sepsis) 2.6 mmol/L (0.5-2.2) H 04/22/25 23:16 Calcium 8.7 mg/dL (8.5-10.5) 04/22/25 20:10 Magnesium 1.8 mg/dL (1.7-2.3) 04/22/25 20:10 Total Bilirubin 0.5 mg/dL (0.15-1.2) 04/22/25 20:10 AST 10 U/L (0-40) 04/22/25 20:10 ALT < 5 U/L (0-41) 04/22/25 20:10 Alkaline Phosphatase 196 U/L (40-130) H 04/22/25 20:10 Troponin T Baseline 45 ng/L (0-15) H 04/22/25 20:10 Troponin T 120 Minute 53.91 ng/L (0-15) H 04/22/25 22:12 Delta Troponin T 8.91 ABS# (0-10) 04/22/25 22:12 Total Protein 6.6 g/dL (6.6-8.7) 04/22/25 20:10 Albumin 2.9 g/dL (3.5-5.2) L 04/22/25 20:10 Globulin 3.7 g/dL (1.3-4.6) 04/22/25 20:10 Procalcitonin 0.16 ng/mL (0-0.5) 04/22/25 20:10 Urine Color Yellow (Yellow) 04/22/25 20:15 Urine Appearance Clear (CLEAR) 04/22/25 20:15 Urine pH 6.5 (5-7) 04/22/25 20:15 Ur Specific [place] 1.007 (1.005-1.030) 04/22/25 20:15 Urine Protein 2+ (Negative) A 04/22/25 20:15 Urine Glucose (UA) Negative (Normal) 04/22/25 20:15 Urine Ketones Negative (Negative) 04/22/25 20:15 Urine Blood 1+ (Negative) A 04/22/25 20:15 Urine Nitrate Negative (Negative) 04/22/25 20:15 Urine Bilirubin Negative (Negative) 04/22/25 20:15 Urine Urobilinogen 0.2 mg/dL (Negative) 04/22/25 20:15 Ur Leukocyte Esterase 1+ (Negative) A 04/22/25 20:15 Urine RBC 6-10 /hpf (0-2) 04/22/25 20:15 Urine WBC 6-10 /hpf (0-5) 04/22/25 20:15 Ur Squamous Epith Cells 0-5 /hpf (0-5) 04/22/25 20:15 Amorphous Sediment Not Reportable 04/22/25 20:15 Urine Bacteria 2+ /hpf (NONE) H 04/22/25 20:15 Hyaline Casts 1.21 /lpf 04/22/25 20:15 Influenza A (PCR) Negative (Negative) 04/22/25 20:21 Influenza Type B (PCR) Negative (Negative) 04/22/25 20:21 RSV (PCR) Negative (Negative) 04/22/25 20:21 SARS-CoV-2 (PCR) Negative (Negative) 04/22/25 20:21 All radiology interpretation(s) finalized by discharge Discharge Plan Discharge Patient Disposition: Xfer Short-Term Hosp Clinical Impression: Acute cholecystitis, Atrial fibrillation with RVR Sepsis Qualifiers: Sepsis type: sepsis due to unspecified organism Sepsis acute organ dysfunction status: unspecified Qualified Code(s): A41.9 - Sepsis, unspecified organism Altered mental status Qualifiers: Altered mental status type: unspecified Qualified Code(s): R41.82 - Altered mental status, unspecified Pneumonia Qualifiers: Pneumonia type: due to unspecified organism Laterality: right Lung location: lower lobe of lung Qualified Code(s): J18.9 - Pneumonia, unspecified organism Condition: Stable Print Language: Arabic Coding Level of Care Code ED Cottage Attendant for Sergio Dahl
[2025-04-22 21:10] LABS: Respiratory Syncytial Virus Ce NEGATIVE (Negative); SARS-CoV-2 PCR NEGATIVE (Negative)
[2025-04-22 21:10] LABS: Alanine Aminotransferase < 5 U/L (0-41); Albumin Level 2.9 g/dL (3.5-5.2); Alkaline Phosphatase 196 U/L (40-130); Anion Gap 18.0 (5-19); Aspartate Amino Transferase 10 U/L (0-40); Blood Urea Nitrogen 28 mg/dL (8-23); Calcium 8.7 mg/dL (8.5-10.5); Carbon Dioxide 23 mmol/L (22-29); Chloride 97 mmol/L (98-107); Creatinine Clr Calc Pharmacy 62.9835; Globulin 3.7 g/dL (1.3-4.6); Glucose 211 mg/dL (65-115); Lactic Sepsis W/Reflex 3.8 mmol/L (0.5-2.2); Magnesium 1.8 mg/dL (1.7-2.3); Osmolality Calculated 288 mOsm/kg (285-295); Potassium 5.0 mmol/L (3.5-5.1); Procalcitonin 0.16 ng/mL (0-0.5); Sodium 133 mmol/L (136-145); Total Protein 6.6 g/dL (6.6-8.7)
[2025-04-22] MEDS: aztreonam 2,000 MG in sodium chloride 0.9% (plus) 100 ML 200 MG IV (21:12)
--- NOTE | 2025-04-22 22:03 | ECG_ITS ---
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 Measurements Intervals [place] Rate: 150 P: 0 MT: 0 QRS: 53 QRSD: 81 T: 32 QT: 293 QTc: 463 Interpretive Statements ATRIAL FLUTTER/TACHYCARDIA WITH RAPID VENTRICULAR RESPONSE MODERATE ST DEPRESSION [0.05+ mV ST DEPRESSION] CRITICAL TEST RESULT Compared to ECG 03/31/2025 17:51:43 ST (T wave) deviation now present Atrial fibrillation no longer present Electronically Signed On 04-22-2025 23:29:34 CDT by Sammie Mcgraw M.D. [email or web address]
--- NOTE | 2025-04-22 22:04 | USR_ITS ---
PROCEDURE INFORMATION: Exam: US Abdomen, Limited; Right Upper Quadrant Exam date and time: 04/22/2025 10:40 PM Age: 74 years old Clinical indication: Abdominal pain; Acute; Additional info: CT findings, fever, AMS TECHNIQUE: Imaging protocol: Real time ultrasound of the abdomen with image documentation. Limited exam focused on the right upper quadrant. COMPARISON: US renal BI* [id number] 02/17/2021 6:13 AM FINDINGS: Liver: Normal. No masses. Nonspecific although commonly benign cysts. Gallbladder: Distended up to 10.7 cm in length. Maximum transverse distension of 6.2 cm. Gallbladder sludge plus questionable stone in the gallbladder neck. Biliary ducts: No definite significant abnormality. Pancreas: Visualized pancreas is unremarkable. Most of pancreas obscured by overlying bowel gas. Right kidney: Normal. No mass. No hydronephrosis. Nonspecific although commonly benign cysts. Questionable trace ascites. US/US gall bladder [id number] IMPRESSION: Gallbladder distended up to 10.7 cm in length, maximum transverse distension of 6.2 cm. Gallbladder sludge plus questionable stone in the gallbladder neck. Findings raise possibility of gallbladder hydrops.
[2025-04-22 22:20] LABS: Reflex Lactate Order REFLEX LACTIC ORDERD
[2025-04-22 22:44] LABS: Troponin 5 2HR 53.91 ng/L (0-15); Troponin 5 2HR Delta 8.91 ABS# (0-10)
[2025-04-22 23:48] LABS: Lactic Acid level (Lactate) 2.6 mmol/L (0.5-2.2)
[2025-04-23] VITALS (28 sets, daily range): BP systolic 94–132; BP diastolic 64–108; PULSE 95–136; RESP 30; TEMP 36.9–38.9; O2SAT 97–100
[2025-04-23 02:53] LABS: Troponin 5 6HR 56.54 ng/L (0-15); Troponin 5 6HR Delta 11.54 ng/L (0-12)
--- NOTE | 2025-04-23 03:42 | ECG_ITS ---
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 Measurements Intervals [place] Rate: 124 P: 0 VA: 0 QRS: 61 QRSD: 72 T: 95 QT: 339 QTc: 487 Interpretive Statements ATRIAL FIBRILLATION WITH RAPID VENTRICULAR RESPONSE MINIMAL ST DEPRESSION [0.025+ mV ST DEPRESSION] ABNORMAL RHYTHM ECG Compared to ECG 04/22/2025 22:03:22 Atrial flutter no longer present ST (T wave) deviation still present Electronically Signed On 04-26-2025 17:52:46 CDT by Sammie Mcgraw M.D. [email or web address] [id number]
[2025-04-23] MEDS: metroNIDAZOLE IV 500 MG/100 ML PREMIX 100 MG IV (04:13)
--- NOTE | 2025-04-23 04:58 | PC.NURSE ---
THIS RN ATTEMPTED TO CALL PATIENT BROTHER KEL RODRIGUEZ @0123 FOR VERBAL CONSENT TO TRANSFER. THIS NURSE WAS NOT ABLE TO GET AHOLD OF PATIENT BROTHER. BOO VOGT ATTEMPTED TO CALL PATIENT BROTHER KEL RODRIGUEZ @0447 FOR VERBAL CONSENT TO TRANSFER. BOO NOT ABLE TO GET AHOLD OF PATIENT BROTHER.
--- NOTE | 2025-04-23 05:46 | PC.NURSE ---
THIS RN CONTACTED [facility] AND SPOKE WITH JOVANA LOUIS TO GIVE PT UPDATE AND TRANSFER OF CARE TO [facility].
[2025-04-23 13:22] LABS: Enterococcus faecalis Detected (NOT DETECT)
== END 2025-04-23 09:24 | disposition short-term general hospital (02) ==
PROVIDERS: Emergency Provider Physician Assistant
DX: K81.0 Acute cholecystitis (principal); I48.20 Chronic atrial fibrillation, unspecified; A41.9 Sepsis, unspecified organism; R41.82 Altered mental status, unspecified; J18.9 Pneumonia, unspecified organism; Z11.52 Encounter for screening for COVID-19; Z87.891 Personal history of nicotine dependence; E78.5 Hyperlipidemia, unspecified; I25.10 Atherosclerotic heart disease of native coronary artery without angina pectoris; I12.9 Hypertensive chronic kidney disease with stage 1 through stage 4 chronic kidney disease, or unspecified chronic kidney disease; N18.9 Chronic kidney disease, unspecified; Z86.73 Personal history of transient ischemic attack (TIA), and cerebral infarction without residual deficits
CPT/HCPCS: 36415; 51702; 70450; 71045; 71250; 74176; 76705; 80053; 81001; 83605; 83735; 84145; 84484; 85025; 87040; 87077; 87086; 87150; 87186; 87205; 87637; 93005; 96365; 96366; 96367; 99291; J0131; J3373; J3490; J7030

== ENCOUNTER 2025-04-30 18:34 | Emergency (ER) | payer MEDICARE, MEDICAID, SELFPAY ==
[2025-04-30] VITALS (8 sets, daily range): BP systolic 140–159; BP diastolic 87–109; PULSE 80–93; RESP 16; TEMP 36.6; O2SAT 96–100; BMI 22.3
--- NOTE | 2025-04-30 18:43 | CTR_ITS ---
PROCEDURE INFORMATION: Exam: CT Head Without Contrast Exam date and time: 04/30/2025 7:06 PM Age: 75 years old Clinical indication: Altered mental status/memory loss; Additional info: AMS TECHNIQUE: Imaging protocol: Computed tomography of the head without contrast. Radiation optimization: All CT scans at this facility use at least one of these dose optimization techniques: automated exposure control; mA and/or kV adjustment per patient size (includes targeted exams where dose is matched to clinical indication); or iterative reconstruction. COMPARISON: CT head wo con* [id number] 04/22/2025 8:49 PM RADIATION DOSE METRICS: Total DLP (mGy-cm): 1573.19 FINDINGS: Brain: Diffuse cerebral atrophy. No hemorrhage. Stable chronic infarct involving the right frontal, parietal, and temporal lobes with encephalomalacia and gliosis. No evidence of acute territorial infarct. Background bilateral cerebral white matter hypoattenuation likely on the basis of chronic microvascular ischemic change. No mass effect. Cerebral ventricles: Ventricles are in proportion to the degree of atrophy with ex vacuo dilatation of the right lateral ventricle. Paranasal sinuses: Visualized sinuses are unremarkable. No fluid levels. Mastoid air cells: Visualized mastoid air cells are well aerated. Bones: Unremarkable. No acute fracture. Soft tissues: Unremarkable. Vasculature: Bilateral ICA and vertebral artery calcifications. CT/CT head wo con* [id number] IMPRESSION: No acute intracranial findings.
--- NOTE | 2025-04-30 18:43 | ECG_ITS ---
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
--- NOTE | 2025-04-30 18:43 | XRR_ITS ---
PROCEDURE INFORMATION: Exam: XR Chest Exam date and time: 04/30/2025 6:58 PM Age: 75 years old Clinical indication: Other: AMS TECHNIQUE: Imaging protocol: Radiologic exam of the chest. Views: 1 view. COMPARISON: [place] [id number] 04/22/2025 8:54 PM 2. CR (CHEST, ) 04/22/2025 8:30 PM FINDINGS: Tubes, catheters and devices: Partially visualized right upper abdominal catheter. Lungs: Similar subtle bilateral interstitial markings. No consolidation. Pleural spaces: No substantial pleural effusion or pneumothorax. Heart/Mediastinum: Mild cardiomegaly, stable. Main pulmonary arterial dilatation. Vasculature: Aortic arch atherosclerotic calcification. Bones/joints: Degenerative change along the spine. XR/XR chest 1V portable [id number] IMPRESSION: 1. Similar subtle bilateral interstitial markings without consolidation. 2. Stable mild cardiomegaly and pulmonary arterial dilatation.
--- OUTSIDE RECORDS SUMMARY | 2025-04-30 18:43 | XMS_ITS | Data Portability ---
Author Organization [facility] Christie Aguiar [facility] Address [address] [place] [address] CHERELLE MCCURDY [phone] Assessment No assessment recorded. Plan of Treatment Reminders Order Date Submit Date Provider Last Modified By Organization Details Last Modified Time Details Appointments None record ed. Lab None record ed. Referral None record ed. Procedures None record ed. Surgeries None record ed. Imaging None record ed. Medication Orders None record ed. Patient TargetsNo targets recorded. Patient Instructions Encounter Date Encounter Id Patient Instructions Last Modified By Organization Details Last Modified Time 01/22/2025 [id number] Started on lasix after CXR showed small pleural effusion. Blood pressure and 02 good. Labs on Sunday. f/u next week. [email or web address] Not available 01/22/2025 15:41:12 01/26/2025 [id number] Lungs mildly improved, but overall condition declining. Discussed code status, requesting to be kept a full code at this time. Blood pressure low, weight down 8 lbs. d/c clonidine, jardiance, claritin, zoloft and trulicity. [email or web address] Not available 01/26/2025 16:07:49 02/19/2025 [id number] Weight down 22lb s since November, expected with his significant decline. [email or web address] Not available 02/19/2025 13:37:21 03/26/2025 [id number] leaking urine an d purulent drainage from penis. Started on levaquin. culture pending. [email or web address] Not available 03/26/2025 14:06:53 04/09/2025 [id number] tx with IV abx and freeman in place, plan to follow up with urology. labs on Sunday. Sugars good. blood pressure too low, d/c lisinopril. [email or web address] Not available 04/09/2025 15:15:23 Reason for Referral None Reported. Results Created Date Observation Date Name Description Value Unit Range Abnormal Flag Note LastModifiedBy Organization Detail LastModifiedTime 03/27/2003/31/2025 CULTU RE, URINE , ROUTI NE culture, urine, routine SEE NOTE abnormal CULTU RE, URINE , ROUTI NE Micro Numbe r: [id number] Test Statu s: Final Speci men Sourc e: Urine , clean catch Speci men Quali ty: Adequ ate Resul t: 50,00 0-100 ,000 CFU/m L of Prote us mirab ilis P.joya abili s ----- ----- ----- - INT PORSCHE AMP/S ULBAC OVALLE S 4 CEFAZ LANG R 8 1 CEFEP TERRA S <=0.1 2 CEFTA ZIDIM E S <=0.5 CEFTR IAXON E S <=0.2 5 CIPRO FLOXA SONIDO R >=4 GENTA MICIN S <=1 MEROP ENEM S 1 NITRO FURAN TOIN R 128 PIP/T AZOBA CTAM S <=4 TRIME THOPR IM/GALLOWAY LFA R >=320 S = Susce ptibl e I = Inter media te R = Resis tant NS = Not susce ptibl e SDD = Susce ptibl e Dose Depen dent * = Not Teste d NR = Not Repor campbell NN = See Thera py Comme nts THERA PY COMME NTS Note 1: For uncom plica campbell UTI cause d by E. coli, K. pneum oniae or P. mirab ilis: Cefaz lang is susce ptibl e if PORSCHE <32 mcg/m L and predi cts susce ptibl e to the oral agent s cefac garry, cefdi ana, cefpo doxim e, cefpr ozil, cefur oxime , cepha lexin and lorac arbef . Not Available [facility] [address] [place], [address], 03/31/2025 11:49:56 Result Notes None recorded. Problems Name Problem SNOMED Code Status Onset Date Resolution Date Notes Provider Name and Address Organization Details Recorded Time Chronic atrial fibrillation 172480836 Active 2023 MARK ANTHONY HAEFFNER null, [facility] 10:55:18 Chronic kidney disease stage 3B 086446623 Active 2023 MARK ANTHONY HAEFFNER null, [facility] 12:21:30 Hypertensive disorder 51025922 Active 2023 MARK ANTHONY HABRANDIFTAMIA null, [facility] 12:46:00 Anxiety 31087436 Active 2023 MARK ANTHONY HABRANDIFTAMIA null, [facility] 12:45:24 Type 2 diabetes mellitus 18769267 Active 2023 MARK ANTHONY HABRANDIFTAMIA null, [facility] 12:46:03 Congestive heart failure 15990631 Active 2023 MARK ANTHONY HABRANDIFNER null, [facility] 12:45:41 Dysuria 27962997 Active 2024 MARK ANTHONY HANICOLE null, [facility] 10:44:30 Closed fracture of hip 354375235 Active 2024 MARK ANTHONY HANICOLE null, [facility] 10:55:08 Acute constipation 351561049 Active 2024 MARK ANTHONY HANICOLE null, [facility] 10:59:19 Acute retention of urine 828786600 Active 2024 MARK ANTHONY HAEFFNER null, [facility] 11:10:35 Delirium 3202980 Active 2024 MARK ANTHONY HAEFFNER null, [facility] 5 16:41:19 Leukocytosis 522326287 [facility] 12:21:56 Urinary symptoms 741382759 Active 2024 [facility] 5 12:47:49 Sepsis caused by Pseudomonas 984654410 Active 2024 [facility] 5 12:54:25 Retention of urine 585023406 Active 2024 Fabian Kelley MD [address] [place] [phone] , [facility] 5 10:31:46 Essential hypertension 85458067 Active 2024 [facility] 5 12:49:49 Problem Notes None recorded. Medical Equipment None Reported. Allergies Allergen ID Allergen Name Allergen Category Reaction Reaction Severity Criticality Documentation Date Start Date Code Code System Note Provider Name and Address Organization Details Recorded Time 13924 Product containin g penicilli n (product) medicatio n Not available Not available Not available 03/03/2023 40151 8001 SNOMED Comme nt: Recor ded 04/09 8:45A M by Lien Kraft rs, Offic e Visit ; Promo campbell; Luigi galan ce: *; ; Not Available [facility] 3 02:23:53 Medications Name Sig Start Date Stop Date Status Note LastModified by Organization Details LastModified Time furosemide 40 mg tablet active Not Available Not Available No t Available clonidine HCl 0.1 mg tablet active Not Available Not Availabl e Not Available prednisone 10 mg tablet active Not Available Not Available No t Available cyanocobalami n (vit B-12) 100 mcg tablet active Not Available Not Available Not Available albuterol sulfate 2.5 mg/3 mL (0.083 %) solution for nebulization active Not Available Not Available Not Available atorvastatin 10 mg tablet active Not Available Not Available Not Available azithromycin 250 mg tablet 10/29 completed Not Available Not Available Not Available diltiazem CD 180 mg capsule,exten ded release 24 hr active Not Available Not Available Not Available metoprolol succinate ER 50 mg tablet,extend ed release 24 hr active Not Available Not Available Not Available lisinopril 20 mg tablet active Not Available Not Available No t Available prednisone 20 mg tablet active Not Available Not Available No t Available clonidine HCl 0.3 mg tablet active Not Available Not Availabl e Not Available Lantus U-100 Insulin 100 unit/mL subcutaneous solution active Not Available Not Available Not Available hydralazine 25 mg tablet active Not Available Not Available Not Available diltiazem CD 360 mg capsule,exten ded release 24 hr active Not Available Not Available Not Available potassium chloride ER 10 mEq tablet,extend ed release active Not Available Not Available N ot Available amlodipine 5 mg tablet active Not Available Not Available No t Available tramadol 50 mg tablet Take 1 tablet every 6 hours by oral route as needed. active Not Available Not Available No t Available cyanocobalami n (vit B-12) 500 mcg tablet active Not Available Not Available Not Available tamsulosin 0.4 mg capsule active Not Available Not Available Not Available Triple Antibiotic 3.5 mg-400 unit-5,000 unit/gram topical ointment active Not Available Not Available Not Available potassium citrate ER 10 mEq (1,080 mg) tablet,extend ed release active Not Available Not Available N ot Available hydralazine 100 mg tablet active Not Available Not Availabl e Not Available metformin 1,000 mg tablet active Not Available Not Available Not Available sertraline 25 mg tablet active Not Available Not Available No t Available budesonide 0.5 mg/2 mL suspension for nebulization active Not Available Not Available Not Available lisinopril 5 mg tablet active Not Available Not Available No t Available hydrochloroth iazide 25 mg tablet active Not Available Not Available Not Available furosemide 20 mg tablet active Not Available Not Available No t Available gabapentin 100 mg capsule active Not Available Not Available Not Available metoprolol succinate ER 25 mg tablet,extend ed release 24 hr 11/07 completed Not Available Not Available Not Available cefdinir 300 mg capsule 10/29 completed Not Available Not Available Not Available sertraline 50 mg tablet active Not Available Not Available No t Available doxycycline hyclate 100 mg tablet 10/29 completed Not Available Not Available Not Available loratadine 10 mg tablet active Not Available Not Available No t Available glipizide 5 mg tablet active Not Available Not Available No t Available Laxative (bisacodyl) 5 mg tablet,delaye d release active Not Available Not Available No t Available insulin aspart (U-100) 100 unit/mL (3 mL) subcutaneous pen active Not Available Not Available Not Available Lantus Solostar U-100 Insulin 100 unit/mL (3 mL) subcutaneous pen active Not Available Not Available Not Available Eliquis 5 mg tablet active Not Available Not Available Not Available Eliquis 2.5 mg tablet active Not Available Not Available No t Available Jardiance 10 mg tablet active Not Available Not Available No t Available Trulicity 0.75 mg/0.5 mL subcutaneous pen injector active Not Available Not Available Not Available Ocuvite Adult 50 Plus 250 mg (90 mg-160 mg) capsule active Not Available Not Available Not Available Vitals Date Recorded Body height Body mass index (BMI) Body weight Heart rate Respiratory rate Body temperature Oxygen saturation Oxygen saturation in Arterial blood by Pulse oximetry Systolic And Diastolic Provider Name and Address Organization Details Last Updated DateTime 5 172.72 cm 24.8 kg/m2 36184.5 6 g 61 /min 16 /min 97 [degF] 96 % 96 % 134/83 mm[Hg] [facility] 5 15:39:09 Date Recorded Body height Body mass index (BMI) Body weight Heart rate Respiratory rate Body temperature Oxygen saturation Oxygen saturation in Arterial blood by Pulse oximetry Systolic And Diastolic Provider Name and Address Organization Details Last Updated DateTime 5 172.72 cm 23 kg/m2 71792.4 5 g 98.4 /min 19 /min 98.4 [degF] 97 % 97 % 122/89 mm[Hg] [facility] 5 16:02:51 Date Recorded Body height Body mass index (BMI) Body weight Heart rate Respiratory rate Body temperature Oxygen saturation Oxygen saturation in Arterial blood by Pulse oximetry Systolic And Diastolic Provider Name and Address Organization Details Last Updated DateTime 5 172.72 cm 23.9 kg/m2 09696 g 66 /min 20 /min 97.7 [degF] 96 % 96 % 148/76 mm[Hg] [facility] 13:26:26 Date Recorded Body height Body mass index (BMI) Body weight Heart rate Respiratory rate Body temperature Oxygen saturation Oxygen saturation in Arterial blood by Pulse oximetry Systolic And Diastolic Provider Name and Address Organization Details Last Updated DateTime 5 172.72 cm 23.6 kg/m2 41741.8 2 g 98 /min 20 /min 96.9 [degF] 99 % 99 % 142/117 mm[Hg] MICHAEL [facility] 5 14:02:28 Date Recorded Body height Body mass index (BMI) Body weight Heart rate Respiratory rate Body temperature Oxygen saturation Oxygen saturation in Arterial blood by Pulse oximetry Systolic And Diastolic Provider Name and Address Organization Details Last Updated DateTime 5 172.72 cm 23.7 kg/m2 30179.4 1 g 92 /min 28 /min 98 [degF] 98 % 98 % 136/82 mm[Hg] MICHAEL [facility] 5 15:12:18 Social History None recorded. Functional Status None recorded. Mental Status None recorded. Family History Nothing Reported. Medical History No medical history recorded. Immunizations Vaccine Type Date Status Note Provider Nam e and Address Organization Details Recorded Time Influenza, split virus, trivalent, preservative 5 completed Not Available [facility] 04/09/2025 14:02:24 Influenza, high-dose, trivalent, PF 7 completed Not Available [facility] 04/09/2025 14:02:24 Pneumococcal conjugate PCV 13 8 completed Not Available [facility] 04/09/2025 14:02:24 Influenza, high-dose, trivalent, PF 8 completed Not Available [facility] 04/09/2025 14:02:24 COVID-19, mRNA, LNP-S, PF, 100 mcg/0.5mL dose or 50 mcg/0.25mL dose 1 completed Not Available [facility] 04/09/2025 14:02:24 COVID-19, mRNA, LNP-S, PF, 100 mcg/0.5mL dose or 50 mcg/0.25mL dose 1 completed Not Available [facility] 04/09/2025 14:02:24 Tdap 1 completed Not Available [facility] 04/09/2025 14:02:24 COVID-19, mRNA, LNP-S, PF, 100 mcg/0.5mL dose or 50 mcg/0.25mL dose 1 completed Not Available [facility] 04/09/2025 14:02:24 COVID-19, mRNA, LNP-S, PF, 100 mcg/0.5mL dose or 50 mcg/0.25mL dose 2 completed Not Available [facility] 04/09/2025 14:02:24 COVID-19, mRNA, LNP-S, bivalent, PF, 50 mcg/0.5 mL or 25mcg/0.25 mL dose 2 completed Not Available [facility] 04/09/2025 14:02:24 COVID-19, mRNA, LNP-S, PF, maxwell-sucrose, 30 mcg/0.3 mL 4 completed Not Available [facility] 04/09/2025 14:02:24 COVID-19, mRNA, LNP-S, PF, maxwell-sucrose, 30 mcg/0.3 mL 4 completed Not Available [facility] 04/09/2025 14:02:24 COVID-19, mRNA, LNP-S, PF, maxwell-sucrose, 30 mcg/0.3 mL 4 completed Not Available [facility] 04/09/2025 14:02:24 Tdap 1 completed Not Available [facility] 04/09/2025 14:02:24 Past Encounters Encounter ID Performer Location Encounter Start Date Encounter Closed Date Diagnosis/Indication Diagnosis SNOMED-CT Code Diagnosis ICD10 Code Diagnosis IMO Codes Diagnosis Note [id number] ARMIN VARGAS PA-C [facility] ([facility]) [address] [place], [place] [phone] 06/04/2024 11:53:14 06/28/2024 21:58:57 Type 2 diabetes mellitus 41447138 E11.9 a1c 8.0 lantus 55u per ss,start trulicity .75mg weekly add GLp1 for better sugar control Chronic at rial fibrillation 953136796 I48.20 diltiazem/ metoprolol Anticoagulant therapy 18 1815003 Z79.01 eliquis History of cerebrovascular accident 249697799 Z86.73 Chronic ki dney disease stage 3B 298048805 N18.32 cr 2.0 gfr 33 Hypertensive disorder 38 770397 I10 d/c hctz, amlodipine 5mg qd, jardiance 10mg qd CLONIDINE HYDRALAZIN E , LISINOPRIL Anxiety 68976627 F41.9 zoloft 50mg recent start [id number] Fabian Kelley MD [facility] ([facility]) [address] [place] [phone] 5 06/18/2024 08:40:16 06/19/2024 09:25:18 Need for personal care assistance [id number] 6637802 Z74.1 Lives in alf 16 2104462 Z59.3 Chronic at rial fibrillation 968620334 I48.20 Chronic ki dney disease stage 3B 180591521 N18.32 Hypertensive disorder 38 972044 I10 stable [id number] ARMIN VARGAS PA-C [facility] ([facility]) [address] [place] [phone] 5 06/25/2024 11:17:26 06/28/2024 22:26:40 Acute confusion 369590531 R41.0 ua with c&s, chest xray, cbc/cmp/co vid Edema 789238864 R60.9 BNP Add lAsix 40 mg po qd with kCL 20MeQ PO QD reassess next week. [id number] ARMIN VARGAS PA-C [facility] ([facility]) [address] [place] [phone] 5 07/02/2024 12:17:27 07/21/2024 09:43:46 Congestive heart failure 31807550 I50.9 responding to increase in lasix last week and tx of pneumonia. History of pneumonia 161 137542 Z87.01 resolving [id number] Fabian Kelley MD [facility] ([facility]) [address] [place] [phone] 5 07/16/2024 08:06:11 07/18/2024 07:23:22 Need for personal care assistance 1019339886 0040587 Z74.1 He still gets confused off and on. Lives in alf 16 5071573 Z59.3 Chronic at rial fibrillation 105645206 I48.20 Hypertensive disorder 38 780882 I10 stable Type 2 ramirez betes mellitus 80852375 E11.9 [id number] Fabian Kelley MD [facility] ([facility]) [address] [place] [phone] 5 08/13/2024 08:09:00 08/16/2024 09:48:11 Need for personal care assistance [id number] 4988359 Z74.1 He still gets confused off and on. Lives in alf 16 3745282 Z59.3 Chronic at rial fibrillation 604223400 I48.20 Type 2 ramirez betes mellitus 08788947 E11.9 stable. [id number] ARMIN VARGAS PA-C [facility] ([facility]) [address] [place] [phone] 5 09/03/2024 11:24:44 09/08/2024 08:21:56 Diarrhea 59604410 R19.7 continue to monitor. Atrial fibrillation 4943 6004 I48.91 decrease metoprolol to 25mg qd monitor for 2 weeks and see if need to d/c altogether ,. [id number] Fabian Kelley MD [facility] ([facility]) [address] [place] [phone] 5 10/22/2024 08:16:25 10/23/2024 09:05:45 Need for personal care assistance [id number] 5424095 Z74.1 He still gets confused off and on. Lives in alf 16 0551651 Z59.3 Atrial fibrillation 4943 6004 I48.91 Hypertensive disorder 38 204296 I10 stable Type 2 ramirez betes mellitus 66381916 E11.9 stable. Chronic ki dney disease stage 3B 684372396 N18.32 [id number] ARMIN VARGAS PA-C [facility] ([facility]) [address] [place] [phone] 5 10/29/2024 12:31:34 12/02/2024 21:26:07 Type 2 diabetes mellitus 96604572 E11.9 reviewed BS and his AM dose if often below 120. decrease lantus 30units hs Essential hypertension 19727351 I10 411392 d/c metoprolol still tapering off the clonidine. , decrease clonidine. 2mg tid x 1 day , clonidine 1mg tid [id number] ARMIN VARGAS PA-C [facility] ([facility]) [address] [place] [phone] 5 11/05/2024 12:04:12 11/08/2024 06:10:16 Type 2 diabetes mellitus 38273179 E11.9 decrease lantus 20 units Anxiety 95226795 F41.9 increase zoloft to 100mg qd Hypertensive disorder 38 440651 I10 d/c metoprolol still tapering off the clonidine. [id number] ARMIN VARGAS PA-C [facility] ([facility]) [address] [place] [id number] 5 11/26/2024 10:39:00 12/12/2024 20:52:56 Dysuria 24882411 R30.0 60510 Closed fra cture of hip 953862432 S72.002D 38797640 1 week ago Chronic at rial fibrillation 543314349 I48.20 245277 cbc/cmp/ku b/ua cr 2.1 hgb 2.4 Acute constipation 6 K59.00 907315 pantoprazo le 40mg bid x 14 days then qd decrease lasix 20mg qd lactulose 30ml1 po qd prn constipati on, decrease metformin 500mg bid Acute rete ntion of urine 837325860 R33.8 2497575 cath, 1000cc urine output [id number] ARMIN VARGAS PA-C [facility] ([facility]) [address] [place] [phone] 5 12/03/2024 12:01:33 12/18/2024 18:19:23 Delirium 1832970 R41.0 15825 d/c gabapentin Acute constipation 9005 K59.00 334137 Miralax and colace. Chronic ki dney disease stage 3B 997513311 N18.32 4231927192 cr 2.0 D/C lasix ,kcl, metformin Leukocytosis 158496532 D 72.829 25100001 cbc/bmp/ua with c&s chest xray [id number] ARMIN VARGAS PA-C [facility] ([facility]) [address] [place] [phone] 5 12/10/2024 12:39:29 12/26/2024 16:52:30 Urinary symptoms 473122779 R39.9 47357433 on levaquin, cbc/bmp in 1 [facility] med records reviewed. Sepsis cau sed by Pseudomonas 776173544 A41.52 1099034187 Chronic ki dney disease stage 3B 626972173 N18.32 4019895529 cr 2.0 decrease lisinopril 20mg qd.d/c lasix, decrease metformin 500mg bid [id number] Fabian Kelley MD [facility] ([facility]) [address] [place] [phone] 5 12/17/2024 07:57:31 12/19/2024 07:42:53 Need for personal care assistance [id number] 9236089 Z74.1 8355316 He still gets confused off and on. Lives in alf 16 9061125 Z78.9 0229631 Chronic ki dney disease stage 3B 354348014 N18.32 0055678984 Hypertensive disorder 38 937245 I10 stable Type 2 ramirez betes mellitus 29848110 E11.9 stable. Retention of urine 78213 4002 R33.9 31576 Now has freeman in place. Monitor. [id number] ARMIN VARGAS PA-C [facility] ([facility]) [address] [place] [id number] 5 12/24/2024 12:40:11 01/12/2025 08:36:15 Essential hypertension 86437172 I10 72231 BPs are stable Delirium 9986649 R41.0 10764 Chronic ki dney disease stage 3B 282981550 N18.32 8676905338 cr 2.5 d/c kcl, metformin, tamsulosin , gabapentin lower lisinopril to 5mg qd, Chronic at rial fibrillation 533727047 I48.20 459055 lower eliquis to 2.5mg bid Type 2 ramirez betes mellitus 21048975 E11.9 decrease lantus 20 units sugars reviewed. [id number] ARMIN VARGAS PA-C [facility] ([facility]) [address] [place] [address] 5 12/31/2024 16:36:48 01/12/2025 10:08:[address] eval and tx for cognative eval and help reorient pt and educate staff on how to keep him more oriented.P ush fluids. Encouraged activity Chronic at rial fibrillation 792437851 I48.20 511950 Congestive heart failure 09202039 I50.9 [id number] Philippe Denise DO [facility] ([facility]) [address] [place] [address] 5 01/05/2025 15:26:45 01/12/2025 11:07:28 Congestive heart failure 53409459 I50.9 Type 2 ramirez betes mellitus 36399630 E11.9 Essential hypertension 19876350 I10 80335 [id number] Philippe Denise DO [facility] ([facility]) [address] [place] [address] 5 01/22/2025 14:56:10 01/27/2025 13:30:26 Congestive heart failure 41283246 I50.9 [id number] Philippe Denise DO [facility] ([facility]) [address] [place] [address] 5 01/26/2025 14:10:47 01/27/2025 17:31:43 Congestive heart failure 27075874 I50.9 Anxiety 00296819 F41.9 [id number] Philippe Denise DO [facility] ([facility]) [address] [place] [address] 5 02/19/2025 09:29:02 02/24/2025 09:39:15 Hypertensive disorder 89092364 I10 Chronic at rial fibrillation 451059422 I48.20 124163 Type 2 ramirez betes mellitus 34257181 E11.9 Congestive heart failure 12179442 I50.9 Weight decreased 3531749 01 R63.4 84311 [id number] Philippe Denise DO [facility] ([facility]) [address] [place] [address] 03/26/2025 11:59:20 04/01/2025 17:10:20 Discharge from [facility] 9861049 R36.9 27728130 [id number] Philippe DeniseDO [facility] ([facility]) [address] [place] [address] 04/09/2025 14:01:27 04/13/2025 14:05:58 Post-discharge follow-up 652504104 Z09 933365 Acute kidney injury 1466 9001 N17.9 073460 Obstructio n of urinary bladder outlet 219680912 N32.0 498287 Health Concerns Section Related Observation LastModified by Organization Detai ls LastModified Time None Recorded Concern Status LastModified by Organization Details LastModified Time None Recorded Advance Directives Directive None Recorded Payers Insurance Date Sequence Insurance Name Policy Number Policy Mercedes Covered Member ID Mercedes Member ID Guarantor Name 04/09/2025 [place] [facility] Luis Ellison Arnaldo [id number] Luis Ellison Arnaldo 04/09/2025 2 [place] Luis Arnaldo [id number] Luis Ellison Arnaldo 04/09/2025 1 [employer] (MEDICARE REPLACEMENT/ ADVANTAGE - HMO) [id number] Luis H Arnaldo [id number] Luis H Arnaldo Notes Date Note Type Note Provider Name and Address Organization Details Recorded Time 01/22/2025 text/html Anxiety/Depressi onRepor campbell by PatientHPIFor severity, patient reportsincreased anxietybut reportsdenies suicidal ideations,able to maintain relationships, anddoes not interfere with activities of daily living. For context, patient reportscardiac disease. For duration, patient reportschronic. For onset/timing, patient reportsgradual. For modifying factors, patient reportsmedications as directed.ROS as noted in the HPI acute illness, CXR done-results show small plerual effusion. Philippe Denise DO [address] [place] [address], [phone], [facility], [place] 01/26/2025 13:33:08 01/26/2025 text/html Anxiety/Depressi onRepor campbell by PatientHPIFor severity, patient reportsincreased anxietybut reportsdenies suicidal ideations,able to maintain relationships, anddoes not interfere with activities of daily living. For context, patient reportscardiac disease. For duration, patient reportschronic. For onset/timing, patient reportsgradual. For modifying factors, patient reportsmedications as directed.ROS as noted in the HPI acute illness, not improving much. Philippe WestDO [place] [address] [place] [address], [phone], [facility] 01/26/2025 16:23:12 02/19/2025 text/html Anxiety/Depressi onRepor campbell by PatientHPIFor severity, patient reportsincreased anxietybut reportsdenies suicidal ideations,able to maintain relationships, anddoes not interfere with activities of daily living. For context, patient reportscardiac disease. For duration, patient reportschronic. For onset/timing, patient reportsgradual. For modifying factors, patient reportsmedications as directed.ROS as noted in the HPI continues to lose weight, but looking better. No complaints reported. Philippe WestDO [place] [address] [place] [address], [phone], [facility] 02/23/2025 13:15:05 03/26/2025 text/html Anxiety/Depressi onRepor campbell by PatientHPIFor severity, patient reportsincreased anxietybut reportsdenies suicidal ideations,able to maintain relationships, anddoes not interfere with activities of daily living. For context, patient reportscardiac disease. For duration, patient reportschronic. For onset/timing, patient reportsgradual. For modifying factors, patient reportsmedications as directed.ROS as noted in the HPI staff reports purulent drainage from penis, and leaking urine Philippe DeniseDO [address] [place] [address], [phone], [facility] 04/01/2025 13:40:16 04/09/2025 text/html Anxiety/Depressi onRepor campbell by PatientHPIFor severity, patient reportsincreased anxietybut reportsdenies suicidal ideations,able to maintain relationships, anddoes not interfere with activities of daily living. For context, patient reportscardiac disease. For duration, patient reportschronic. For onset/timing, patient reportsgradual. For modifying factors, patient reportsmedications as directed.ROS as noted in the HPI re-admit to SNF after hospital stay. Philippe Denise, [address], [phone], [facility] 04/12/2025 13:37:42
--- OUTSIDE RECORDS SUMMARY | 2025-04-30 18:44 | XMS_ITS | Continuity of Care Document ---
Author Organization [email or web address] [facility] ([facility]) Address [address] [place] [address] Insurance Providers Payer Plan Claims Address Claims Phone Policy Number Group Number Relation Employer Guarantor Name Guarantor Guarantor Address Guarantor Phone [employer] A M[employer] ADV [address] [address], [place] [address] tel:[phone] [id number] MED[employer] [place] MEDIC AID [phone] [id number] Problems Condition ICD9 code ICD10 code SNOMED code Start Date End Date S tatus Paroxysmal atrial fibrillation I48.0 03/28/2022 Active Unspecified atrial fibrillation I48.91 04/05/2021 Active 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 Z79.01 04/05/2021 Active 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 Refere nce Range Blood chemistry[[id number]] Glucose [Mass/volume] in Serum or Plasma [2345-7] 04/30/2025 05:27 PM 312 mg/dL N Blood chemistry[[id number]] Glucose [Mass/volume] in Serum or Plasma [2345-7] 04/30/2025 01:36 PM 297 mg/dL N Blood chemistry[[id number]] Glucose [Mass/volume] in Serum or Plasma [2345-7] 04/29/2025 12:13 PM 385 mg/dL N Blood chemistry[[id number]] Glucose [Mass/volume] in Serum or Plasma [2345-7] 04/22/2025 11:41 AM 236 mg/dL N Blood chemistry[[id number]] Glucose [Mass/volume] in Serum or Plasma [2345-7] 04/22/2025 04:51 PM 255 mg/dL N Blood chemistry[[id number]] Glucose [Mass/volume] in Serum or Plasma [2345-7] 04/22/2025 08:44 AM 255 mg/dL N Blood chemistry[[id number]] Glucose [Mass/volume] in Serum or Plasma [2345-7] 04/22/2025 11:33 AM 220 mg/dL N Blood chemistry[[id number]] Glucose [Mass/volume] in Serum or Plasma [2345-7] 04/21/2025 01:12 PM 392 mg/dL N Blood chemistry[[id number]] Glucose [Mass/volume] in Serum or Plasma [2345-7] 04/21/2025 03:56 PM 253 mg/dL N Blood chemistry[[id number]] Glucose [Mass/volume] in Serum or Plasma [2345-7] 04/21/2025 09:32 AM 289 mg/dL N Blood chemistry[[id number]] Glucose [Mass/volume] in Serum or Plasma [2345-7] 04/21/2025 11:50 AM 221 mg/dL N Blood chemistry[[id number]] Glucose [Mass/volume] in Serum or Plasma [2345-7] 04/20/2025 11:09 AM 254 mg/dL N Blood chemistry[[id number]] Glucose [Mass/volume] in Serum or Plasma [2345-7] 04/20/2025 05:40 PM 319 mg/dL N Blood chemistry[[id number]] Glucose [Mass/volume] in Serum or Plasma [2345-7] 04/20/2025 09:49 AM 214 mg/dL N Blood chemistry[[id number]] Glucose [Mass/volume] in Serum or Plasma [2345-7] 04/20/2025 02:00 PM 191 mg/dL N Blood chemistry[[id number]] Glucose [Mass/volume] in Serum or Plasma [2345-7] 04/20/2025 10:20 AM 178 mg/dL N Blood chemistry[[id number]] Glucose [Mass/volume] in Serum or Plasma [2345-7] 04/20/2025 05:36 PM 355 mg/dL N Blood chemistry[[id number]] Glucose [Mass/volume] in Serum or Plasma [2345-7] 04/19/2025 04:18 PM 205 mg/dL N Blood chemistry[[id number]] Glucose [Mass/volume] in Serum or Plasma [2345-7] 04/19/2025 09:15 AM 234 mg/dL N Glucose [Mass/volume] in Serum or Plasma [2345-7] 04/19/2025 09:15 AM 234 mg/dL N Blood chemistry[[id number]] Glucose [Mass/volume] in Serum or Plasma [2345-7] 04/19/2025 11:50 AM 171 mg/dL N Blood chemistry[[id number]] Glucose [Mass/volume] in Serum or Plasma [2345-7] 04/19/2025 10:19 AM 185 mg/dL N Blood chemistry[[id number]] Glucose [Mass/volume] in Serum or Plasma [2345-7] 04/18/2025 02:58 PM 286 mg/dL N Blood chemistry[[id number]] Glucose [Mass/volume] in Serum or Plasma [2345-7] 04/18/2025 04:04 PM 234 mg/dL N Blood chemistry[[id number]] Glucose [Mass/volume] in Serum or Plasma [2345-7] 04/18/2025 08:57 AM 213 mg/dL N Blood chemistry[[id number]] Glucose [Mass/volume] in Serum or Plasma [2345-7] 04/18/2025 08:56 AM 213 mg/dL N Blood chemistry[[id number]] Glucose [Mass/volume] in Serum or Plasma [2345-7] 04/18/2025 12:30 PM 162 mg/dL N Blood chemistry[[id number]] Glucose [Mass/volume] in Serum or Plasma [2345-7] 04/18/2025 10:19 AM 176 mg/dL N Blood chemistry[[id number]] Glucose [Mass/volume] in Serum or Plasma [2345-7] 04/17/2025 04:21 PM 206 mg/dL N Blood chemistry[[id number]] Glucose [Mass/volume] in Serum or Plasma [2345-7] 04/17/2025 03:51 PM 328 mg/dL N Blood chemistry[[id number]] Glucose [Mass/volume] in Serum or Plasma [2345-7] 04/17/2025 08:26 AM 225 mg/dL N Blood chemistry[[id number]] Glucose [Mass/volume] in Serum or Plasma [2345-7] 04/17/2025 11:18 AM 192 mg/dL N Blood chemistry[[id number]] Glucose [Mass/volume] in Serum or Plasma [2345-7] 04/16/2025 11:41 AM 359 mg/dL N Blood chemistry[[id number]] Glucose [Mass/volume] in Serum or Plasma [2345-7] 04/16/2025 10:46 AM 237 mg/dL N Blood chemistry[[id number]] Glucose [Mass/volume] in Serum or Plasma [2345-7] 04/16/2025 06:15 AM 199 mg/dL N Blood chemistry[[id number]] Glucose [Mass/volume] in Serum or Plasma [2345-7] 04/16/2025 12:09 PM 202 mg/dL N Blood chemistry[[id number]] Glucose [Mass/volume] in Serum or Plasma [2345-7] 04/15/2025 12:50 PM 365 mg/dL N Blood chemistry[[id number]] Glucose [Mass/volume] in Serum or Plasma [2345-7] 04/15/2025 04:02 PM 387 mg/dL N Blood chemistry[[id number]] Glucose [Mass/volume] in Serum or Plasma [2345-7] 04/15/2025 08:22 AM 154 mg/dL N Blood chemistry[[id number]] Glucose [Mass/volume] in Serum or Plasma [2345-7] 04/15/2025 11:39 AM 213 mg/dL N Blood chemistry[[id number]] Glucose [Mass/volume] in Serum or Plasma [2345-7] 04/14/2025 12:57 PM 311 mg/dL N Blood chemistry[[id number]] Glucose [Mass/volume] in Serum or Plasma [2345-7] 04/14/2025 04:08 PM 329 mg/dL N Blood chemistry[[id number]] Glucose [Mass/volume] in Serum or Plasma [2345-7] 04/14/2025 08:50 AM 195 mg/dL N Blood chemistry[[id number]] Glucose [Mass/volume] in Serum or Plasma [2345-7] 04/14/2025 11:25 AM 168 mg/dL N Blood chemistry[[id number]] Glucose [Mass/volume] in Serum or Plasma [2345-7] 04/13/2025 04:07 PM 213 mg/dL N Blood chemistry[[id number]] Glucose [Mass/volume] in Serum or Plasma [2345-7] 04/13/2025 11:49 AM 277 mg/dL N Blood chemistry[[id number]] Glucose [Mass/volume] in Serum or Plasma [2345-7] 04/13/2025 09:11 AM 144 mg/dL N Blood chemistry[[id number]] Glucose [Mass/volume] in Serum or Plasma [2345-7] 04/13/2025 11:29 AM 148 mg/dL N Blood chemistry[[id number]] Glucose [Mass/volume] in Serum or Plasma [2345-7] 04/13/2025 10:36 AM 160 mg/dL N Blood chemistry[[id number]] Glucose [Mass/volume] in Serum or Plasma [2345-7] 04/13/2025 05:29 PM 405 mg/dL N Blood chemistry[[id number]] Glucose [Mass/volume] in Serum or Plasma [2345-7] 04/12/2025 04:08 PM 311 mg/dL N Blood chemistry[[id number]] Glucose [Mass/volume] in Serum or Plasma [2345-7] 04/12/2025 04:07 PM 311 mg/dL N Blood chemistry[[id number]] Glucose [Mass/volume] in Serum or Plasma [2345-7] 04/12/2025 09:16 AM 249 mg/dL N Blood chemistry[[id number]] Glucose [Mass/volume] in Serum or Plasma [2345-7] 04/12/2025 09:11 AM 248 mg/dL N Blood chemistry[[id number]] Glucose [Mass/volume] in Serum or Plasma [2345-7] 04/12/2025 12:09 PM 160 mg/dL N Blood chemistry[[id number]] Glucose [Mass/volume] in Serum or Plasma [2345-7] 04/12/2025 10:23 AM 173 mg/dL N Blood chemistry[[id number]] Glucose [Mass/volume] in Serum or Plasma [2345-7] 04/11/2025 04:40 PM 301 mg/dL N Blood chemistry[[id number]] Glucose [Mass/volume] in Serum or Plasma [2345-7] 04/11/2025 03:14 PM 193 mg/dL N Blood chemistry[[id number]] Glucose [Mass/volume] in Serum or Plasma [2345-7] 04/11/2025 09:12 AM 284 mg/dL N Blood chemistry[[id number]] Glucose [Mass/volume] in Serum or Plasma [2345-7] 04/11/2025 10:16 AM 170 mg/dL N Blood chemistry[[id number]] Glucose [Mass/volume] in Serum or Plasma [2345-7] 04/11/2025 10:01 AM 178 mg/dL N Blood chemistry[[id number]] Glucose [Mass/volume] in Serum or Plasma [2345-7] 04/10/2025 02:40 PM 213 mg/dL N Blood chemistry[[id number]] Glucose [Mass/volume] in Serum or Plasma [2345-7] 04/10/2025 09:03 AM 270 mg/dL N Blood chemistry[[id number]] Glucose [Mass/volume] in Serum or Plasma [2345-7] 04/10/2025 04:33 PM 173 mg/dL N Blood chemistry[[id number]] Glucose [Mass/volume] in Serum or Plasma [2345-7] 04/10/2025 12:01 PM 220 mg/dL N Blood chemistry[[id number]] Glucose [Mass/volume] in Serum or Plasma [2345-7] 04/10/2025 10:28 AM 264 mg/dL N Blood chemistry[[id number]] Glucose [Mass/volume] in Serum or Plasma [2345-7] 04/09/2025 04:27 PM 222 mg/dL N Blood chemistry[[id number]] Glucose [Mass/volume] in Serum or Plasma [2345-7] 04/09/2025 04:26 PM 222 mg/dL N Blood chemistry[[id number]] Glucose [Mass/volume] in Serum or Plasma [2345-7] 04/09/2025 02:43 PM 318 mg/dL N Blood chemistry[[id number]] Glucose [Mass/volume] in Serum or Plasma [2345-7] 04/09/2025 11:42 AM 213 mg/dL N Blood chemistry[[id number]] Glucose [Mass/volume] in Serum or Plasma [2345-7] 04/09/2025 11:39 AM 213 mg/dL N Blood chemistry[[id number]] Glucose [Mass/volume] in Serum or Plasma [2345-7] 04/09/2025 09:04 AM 216 mg/dL N Glucose [Mass/volume] in Serum or Plasma [2345-7] 04/09/2025 09:04 AM 216 mg/dL N Blood chemistry[[id number]] Glucose [Mass/volume] in Serum or Plasma [2345-7] 04/08/2025 04:33 PM 346 mg/dL N Blood chemistry[[id number]] Glucose [Mass/volume] in Serum or Plasma [2345-7] 04/08/2025 12:44 PM 336 mg/dL N Blood chemistry[[id number]] Glucose [Mass/volume] in Serum or Plasma [2345-7] 04/08/2025 11:45 AM 194 mg/dL N Blood chemistry[[id number]] Glucose [Mass/volume] in Serum or Plasma [2345-7] 04/08/2025 08:56 AM 230 mg/dL N Blood chemistry[[id number]] Glucose [Mass/volume] in Serum or Plasma [2345-7] 04/07/2025 03:42 PM 236 mg/dL N Blood chemistry[[id number]] Glucose [Mass/volume] in Serum or Plasma [2345-7] 04/07/2025 12:47 PM 284 mg/dL N Blood chemistry[[id number]] Glucose [Mass/volume] in Serum or Plasma [2345-7] 04/07/2025 10:50 AM 195 mg/dL N Blood chemistry[[id number]] Glucose [Mass/volume] in Serum or Plasma [2345-7] 04/07/2025 08:30 AM 231 mg/dL N Blood chemistry[[id number]] Glucose [Mass/volume] in Serum or Plasma [2345-7] 04/06/2025 03:46 PM 144 mg/dL N Blood chemistry[[id number]] Glucose [Mass/volume] in Serum or Plasma [2345-7] 04/06/2025 02:48 PM 327 mg/dL N Blood chemistry[[id number]] Glucose [Mass/volume] in Serum or Plasma [2345-7] 04/06/2025 10:49 AM 86 mg/dL N Blood chemistry[[id number]] Glucose [Mass/volume] in Serum or Plasma [2345-7] 04/06/2025 08:34 AM 232 mg/dL N Blood chemistry[[id number]] Glucose [Mass/volume] in Serum or Plasma [2345-7] 04/05/2025 04:47 PM 298 mg/dL N Blood chemistry[[id number]] Glucose [Mass/volume] in Serum or Plasma [2345-7] 04/05/2025 03:57 PM 175 mg/dL N Blood chemistry[[id number]] Glucose [Mass/volume] in Serum or Plasma [2345-7] 04/05/2025 11:55 AM 109 mg/dL N Blood chemistry[[id number]] Glucose [Mass/volume] in Serum or Plasma [2345-7] 04/05/2025 09:27 AM 265 mg/dL N Blood chemistry[[id number]] Glucose [Mass/volume] in Serum or Plasma [2345-7] 04/04/2025 03:39 PM 267 mg/dL N Blood chemistry[[id number]] Glucose [Mass/volume] in Serum or Plasma [2345-7] 04/04/2025 02:29 PM 328 mg/dL N Blood chemistry[[id number]] Glucose [Mass/volume] in Serum or Plasma [2345-7] 04/04/2025 11:54 AM 142 mg/dL N Blood chemistry[[id number]] Glucose [Mass/volume] in Serum or Plasma [2345-7] 04/04/2025 10:05 AM 127 mg/dL N Blood chemistry[[id number]] Glucose [Mass/volume] in Serum or Plasma [2345-7] 04/04/2025 08:49 AM 309 mg/dL N Blood chemistry[[id number]] Glucose [Mass/volume] in Serum or Plasma [2345-7] 04/03/2025 04:44 PM 154 mg/dL N Blood chemistry[[id number]] Glucose [Mass/volume] in Serum or Plasma [2345-7] 03/31/2025 04:22 PM 262 mg/dL N Blood chemistry[[id number]] Glucose [Mass/volume] in Serum or Plasma [2345-7] 03/31/2025 11:43 AM 168 mg/dL N Blood chemistry[[id number]] Glucose [Mass/volume] in Serum or Plasma [2345-7] 03/30/2025 03:54 PM 219 mg/dL N Blood chemistry[[id number]] Glucose [Mass/volume] in Serum or Plasma [2345-7] 03/30/2025 12:07 PM 197 mg/dL N Blood chemistry[[id number]] Glucose [Mass/volume] in Serum or Plasma [2345-7] 03/30/2025 11:33 AM 299 mg/dL N Blood chemistry[[id number]] Glucose [Mass/volume] in Serum or Plasma [2345-7] 03/30/2025 10:09 AM 292 mg/dL N Blood chemistry[[id number]] Glucose [Mass/volume] in Serum or Plasma [2345-7] 03/30/2025 09:25 AM 375 mg/dL N Blood chemistry[[id number]] Glucose [Mass/volume] in Serum or Plasma [2345-7] 03/29/2025 05:06 PM 223 mg/dL N Blood chemistry[[id number]] Glucose [Mass/volume] in Serum or Plasma [2345-7] 03/29/2025 04:48 PM 266 mg/dL N Blood chemistry[[id number]] Glucose [Mass/volume] in Serum or Plasma [2345-7] 03/29/2025 04:47 PM 266 mg/dL N Blood chemistry[[id number]] Glucose [Mass/volume] in Serum or Plasma [2345-7] 03/29/2025 04:37 PM 266 mg/dL N Blood chemistry[[id number]] Glucose [Mass/volume] in Serum or Plasma [2345-7] 03/29/2025 12:32 PM 267 mg/dL N Blood chemistry[[id number]] Glucose [Mass/volume] in Serum or Plasma [2345-7] 03/29/2025 11:37 AM 168 mg/dL N Blood chemistry[[id number]] Glucose [Mass/volume] in Serum or Plasma [2345-7] 03/29/2025 10:03 AM 231 mg/dL N Blood chemistry[[id number]] Glucose [Mass/volume] in Serum or Plasma [2345-7] 03/29/2025 09:06 AM 212 mg/dL N Blood chemistry[[id number]] Glucose [Mass/volume] in Serum or Plasma [2345-7] 03/28/2025 04:00 PM 336 mg/dL N Blood chemistry[[id number]] Glucose [Mass/volume] in Serum or Plasma [2345-7] 03/28/2025 03:59 PM 336 mg/dL N Blood chemistry[[id number]] Glucose [Mass/volume] in Serum or Plasma [2345-7] 03/28/2025 11:52 AM 204 mg/dL N Blood chemistry[[id number]] Glucose [Mass/volume] in Serum or Plasma [2345-7] 03/28/2025 10:17 AM 199 mg/dL N Blood chemistry[[id number]] Glucose [Mass/volume] in Serum or Plasma [2345-7] 03/28/2025 09:55 AM 230 mg/dL N Blood chemistry[[id number]] Glucose [Mass/volume] in Serum or Plasma [2345-7] 03/28/2025 09:53 AM 230 mg/dL N Blood chemistry[[id number]] Glucose [Mass/volume] in Serum or Plasma [2345-7] 03/27/2025 04:07 PM 414 mg/dL N Blood chemistry[[id number]] Glucose [Mass/volume] in Serum or Plasma [2345-7] 03/27/2025 03:09 PM 201 mg/dL N Blood chemistry[[id number]] Glucose [Mass/volume] in Serum or Plasma [2345-7] 03/27/2025 10:53 AM 190 mg/dL N Blood chemistry[[id number]] Glucose [Mass/volume] in Serum or Plasma [2345-7] 03/27/2025 08:51 AM 176 mg/dL N Blood chemistry[[id number]] Glucose [Mass/volume] in Serum or Plasma [2345-7] 03/26/2025 04:14 PM 259 mg/dL N Blood chemistry[[id number]] Glucose [Mass/volume] in Serum or Plasma [2345-7] 03/26/2025 03:41 PM 290 mg/dL N Blood chemistry[[id number]] Glucose [Mass/volume] in Serum or Plasma [2345-7] 03/26/2025 12:50 PM 174 mg/dL N Blood chemistry[[id number]] Glucose [Mass/volume] in Serum or Plasma [2345-7] 03/26/2025 09:52 AM 287 mg/dL N Blood chemistry[[id number]] Glucose [Mass/volume] in Serum or Plasma [2345-7] 03/25/2025 04:22 PM 210 mg/dL N Blood chemistry[[id number]] Glucose [Mass/volume] in Serum or Plasma [2345-7] 03/25/2025 11:45 AM 89 mg/dL N Blood chemistry[[id number]] Glucose [Mass/volume] in Serum or Plasma [2345-7] 03/25/2025 11:25 AM 245 mg/dL N Blood chemistry[[id number]] Glucose [Mass/volume] in Serum or Plasma [2345-7] 03/25/2025 08:55 AM 142 mg/dL N Blood chemistry[[id number]] Glucose [Mass/volume] in Serum or Plasma [2345-7] 03/24/2025 04:58 PM 389 mg/dL N Glucose [Mass/volume] in Serum or Plasma [2345-7] 03/24/2025 04:58 PM 389 mg/dL N Blood chemistry[[id number]] Glucose [Mass/volume] in Serum or Plasma [2345-7] 03/24/2025 01:05 PM 269 mg/dL N Blood chemistry[[id number]] Glucose [Mass/volume] in Serum or Plasma [2345-7] 03/24/2025 01:02 PM 133 mg/dL N Blood chemistry[[id number]] Glucose [Mass/volume] in Serum or Plasma [2345-7] 03/24/2025 09:46 AM 214 mg/dL N Blood chemistry[[id number]] Glucose [Mass/volume] in Serum or Plasma [2345-7] 03/23/2025 04:18 PM 241 mg/dL N Blood chemistry[[id number]] Glucose [Mass/volume] in Serum or Plasma [2345-7] 03/23/2025 12:03 PM 109 mg/dL N Blood chemistry[[id number]] Glucose [Mass/volume] in Serum or Plasma [2345-7] 03/23/2025 11:39 AM 241 mg/dL N Blood chemistry[[id number]] Glucose [Mass/volume] in Serum or Plasma [2345-7] 03/23/2025 10:36 AM 117 mg/dL N Blood chemistry[[id number]] Glucose [Mass/volume] in Serum or Plasma [2345-7] 03/23/2025 09:00 AM 263 mg/dL N Blood chemistry[[id number]] Glucose [Mass/volume] in Serum or Plasma [2345-7] 03/22/2025 04:31 PM 317 mg/dL N Blood chemistry[[id number]] Glucose [Mass/volume] in Serum or Plasma [2345-7] 03/22/2025 12:25 PM 225 mg/dL N Blood chemistry[[id number]] Glucose [Mass/volume] in Serum or Plasma [2345-7] 03/22/2025 10:21 AM 191 mg/dL N Blood chemistry[[id number]] Glucose [Mass/volume] in Serum or Plasma [2345-7] 03/22/2025 08:58 AM 269 mg/dL N Blood chemistry[[id number]] Glucose [Mass/volume] in Serum or Plasma [2345-7] 03/21/2025 04:14 PM 259 mg/dL N Blood chemistry[[id number]] Glucose [Mass/volume] in Serum or Plasma [2345-7] 03/21/2025 03:22 PM 254 mg/dL N Blood chemistry[[id number]] Glucose [Mass/volume] in Serum or Plasma [2345-7] 03/21/2025 11:42 AM 237 mg/dL N Blood chemistry[[id number]] Glucose [Mass/volume] in Serum or Plasma [2345-7] 03/21/2025 10:02 AM 274 mg/dL N Blood chemistry[[id number]] Glucose [Mass/volume] in Serum or Plasma [2345-7] 03/21/2025 09:11 AM 269 mg/dL N Blood chemistry[[id number]] Glucose [Mass/volume] in Serum or Plasma [2345-7] 03/21/2025 06:56 AM 200 mg/dL N Blood chemistry[[id number]] Glucose [Mass/volume] in Serum or Plasma [2345-7] 03/20/2025 03:41 PM 396 mg/dL N Blood chemistry[[id number]] Glucose [Mass/volume] in Serum or Plasma [2345-7] 03/20/2025 11:33 AM 86 mg/dL N Blood chemistry[[id number]] Glucose [Mass/volume] in Serum or Plasma [2345-7] 03/20/2025 08:39 AM 330 mg/dL N Blood chemistry[[id number]] Glucose [Mass/volume] in Serum or Plasma [2345-7] 03/19/2025 04:12 PM 205 mg/dL N Blood chemistry[[id number]] Glucose [Mass/volume] in Serum or Plasma [2345-7] 03/19/2025 11:47 AM 139 mg/dL N Blood chemistry[[id number]] Glucose [Mass/volume] in Serum or Plasma [2345-7] 03/19/2025 11:31 AM 166 mg/dL N Blood chemistry[[id number]] Glucose [Mass/volume] in Serum or Plasma [2345-7] 03/19/2025 09:27 AM 198 mg/dL N Blood chemistry[[id number]] Glucose [Mass/volume] in Serum or Plasma [2345-7] 03/18/2025 03:25 PM 302 mg/dL N Blood chemistry[[id number]] Glucose [Mass/volume] in Serum or Plasma [2345-7] 03/18/2025 01:01 PM 307 mg/dL N Blood chemistry[[id number]] Glucose [Mass/volume] in Serum or Plasma [2345-7] 03/18/2025 11:45 AM 112 mg/dL N Blood chemistry[[id number]] Glucose [Mass/volume] in Serum or Plasma [2345-7] 03/18/2025 08:24 AM 231 mg/dL N Blood chemistry[[id number]] Glucose [Mass/volume] in Serum or Plasma [2345-7] 03/17/2025 03:54 PM 344 mg/dL N Blood chemistry[[id number]] Glucose [Mass/volume] in Serum or Plasma [2345-7] 03/17/2025 11:42 AM 124 mg/dL N Blood chemistry[[id number]] Glucose [Mass/volume] in Serum or Plasma [2345-7] 03/17/2025 11:36 AM 244 mg/dL N Blood chemistry[[id number]] Glucose [Mass/volume] in Serum or Plasma [2345-7] 03/17/2025 08:56 AM 277 mg/dL N Blood chemistry[[id number]] Glucose [Mass/volume] in Serum or Plasma [2345-7] 03/16/2025 11:45 AM 230 mg/dL N Blood chemistry[[id number]] Glucose [Mass/volume] in Serum or Plasma [2345-7] 03/16/2025 11:23 AM 97 mg/dL N Blood chemistry[[id number]] Glucose [Mass/volume] in Serum or Plasma [2345-7] 03/16/2025 10:24 AM 104 mg/dL N Blood chemistry[[id number]] Glucose [Mass/volume] in Serum or Plasma [2345-7] 03/16/2025 09:13 AM 195 mg/dL N Blood chemistry[[id number]] Glucose [Mass/volume] in Serum or Plasma [2345-7] 03/15/2025 04:18 PM 204 mg/dL N Blood chemistry[[id number]] Glucose [Mass/volume] in Serum or Plasma [2345-7] 03/15/2025 02:04 PM 348 mg/dL N Blood chemistry[[id number]] Glucose [Mass/volume] in Serum or Plasma [2345-7] 03/15/2025 11:51 AM 256 mg/dL N Blood chemistry[[id number]] Glucose [Mass/volume] in Serum or Plasma [2345-7] 03/15/2025 10:26 AM 256 mg/dL N Blood chemistry[[id number]] Glucose [Mass/volume] in Serum or Plasma [2345-7] 03/15/2025 08:53 AM 244 mg/dL N Blood chemistry[[id number]] Glucose [Mass/volume] in Serum or Plasma [2345-7] 03/14/2025 04:33 PM 342 mg/dL N Blood chemistry[[id number]] Glucose [Mass/volume] in Serum or Plasma [2345-7] 03/14/2025 02:10 PM 275 mg/dL N Blood chemistry[[id number]] Glucose [Mass/volume] in Serum or Plasma [2345-7] 03/14/2025 11:43 AM 232 mg/dL N Blood chemistry[[id number]] Glucose [Mass/volume] in Serum or Plasma [2345-7] 03/14/2025 10:45 AM 228 mg/dL N Blood chemistry[[id number]] Glucose [Mass/volume] in Serum or Plasma [2345-7] 03/14/2025 09:24 AM 355 mg/dL N Blood chemistry[[id number]] Glucose [Mass/volume] in Serum or Plasma [2345-7] 03/13/2025 05:04 PM 268 mg/dL N Blood chemistry[[id number]] Glucose [Mass/volume] in Serum or Plasma [2345-7] 03/13/2025 03:27 PM 210 mg/dL N Blood chemistry[[id number]] Glucose [Mass/volume] in Serum or Plasma [2345-7] 03/13/2025 12:06 PM 196 mg/dL N Blood chemistry[[id number]] Glucose [Mass/volume] in Serum or Plasma [2345-7] 03/13/2025 10:33 AM 213 mg/dL N Blood chemistry[[id number]] Glucose [Mass/volume] in Serum or Plasma [2345-7] 03/13/2025 09:13 AM 314 mg/dL N Blood chemistry[[id number]] Glucose [Mass/volume] in Serum or Plasma [2345-7] 03/12/2025 03:40 PM 284 mg/dL N Blood chemistry[[id number]] Glucose [Mass/volume] in Serum or Plasma [2345-7] 03/12/2025 02:53 PM 363 mg/dL N Blood chemistry[[id number]] Glucose [Mass/volume] in Serum or Plasma [2345-7] 03/12/2025 11:17 AM 237 mg/dL N Blood chemistry[[id number]] Glucose [Mass/volume] in Serum or Plasma [2345-7] 03/12/2025 08:47 AM 321 mg/dL N Blood chemistry[[id number]] Glucose [Mass/volume] in Serum or Plasma [2345-7] 03/11/2025 04:34 PM 206 mg/dL N Blood chemistry[[id number]] Glucose [Mass/volume] in Serum or Plasma [2345-7] 03/11/2025 01:10 PM 206 mg/dL N Blood chemistry[[id number]] Glucose [Mass/volume] in Serum or Plasma [2345-7] 03/11/2025 11:25 AM 200 mg/dL N Blood chemistry[[id number]] Glucose [Mass/volume] in Serum or Plasma [2345-7] 03/11/2025 08:59 AM 226 mg/dL N Blood chemistry[[id number]] Glucose [Mass/volume] in Serum or Plasma [2345-7] 03/10/2025 05:53 PM 165 mg/dL N Blood chemistry[[id number]] Glucose [Mass/volume] in Serum or Plasma [2345-7] 03/10/2025 01:23 PM 199 mg/dL N Blood chemistry[[id number]] Glucose [Mass/volume] in Serum or Plasma [2345-7] 03/10/2025 12:39 PM 308 mg/dL N Blood chemistry[[id number]] Glucose [Mass/volume] in Serum or Plasma [2345-7] 03/10/2025 09:53 AM 144 mg/dL N Blood chemistry[[id number]] Glucose [Mass/volume] in Serum or Plasma [2345-7] 03/09/2025 01:16 PM 362 mg/dL N Blood chemistry[[id number]] Glucose [Mass/volume] in Serum or Plasma [2345-7] 03/09/2025 12:42 PM 188 mg/dL N Blood chemistry[[id number]] Glucose [Mass/volume] in Serum or Plasma [2345-7] 03/09/2025 11:40 AM 362 mg/dL N Blood chemistry[[id number]] Glucose [Mass/volume] in Serum or Plasma [2345-7] 03/09/2025 10:09 AM 192 mg/dL N Blood chemistry[[id number]] Glucose [Mass/volume] in Serum or Plasma [2345-7] 03/09/2025 06:02 AM 145 mg/dL N Blood chemistry[[id number]] Glucose [Mass/volume] in Serum or Plasma [2345-7] 03/08/2025 04:04 PM 320 mg/dL N Blood chemistry[[id number]] Glucose [Mass/volume] in Serum or Plasma [2345-7] 03/08/2025 01:22 PM 293 mg/dL N Blood chemistry[[id number]] Glucose [Mass/volume] in Serum or Plasma [2345-7] 03/08/2025 12:57 PM 242 mg/dL N Blood chemistry[[id number]] Glucose [Mass/volume] in Serum or Plasma [2345-7] 03/08/2025 10:31 AM 242 mg/dL N Blood chemistry[[id number]] Glucose [Mass/volume] in Serum or Plasma [2345-7] 03/08/2025 09:01 AM 277 mg/dL N Blood chemistry[[id number]] Glucose [Mass/volume] in Serum or Plasma [2345-7] 03/07/2025 04:17 PM 217 mg/dL N Blood chemistry[[id number]] Glucose [Mass/volume] in Serum or Plasma [2345-7] 03/07/2025 03:07 PM 182 mg/dL N Blood chemistry[[id number]] Glucose [Mass/volume] in Serum or Plasma [2345-7] 03/07/2025 01:04 PM 129 mg/dL N Blood chemistry[[id number]] Glucose [Mass/volume] in Serum or Plasma [2345-7] 03/07/2025 10:55 AM 129 mg/dL N Blood chemistry[[id number]] Glucose [Mass/volume] in Serum or Plasma [2345-7] 03/07/2025 08:42 AM 275 mg/dL N Blood chemistry[[id number]] Glucose [Mass/volume] in Serum or Plasma [2345-7] 03/06/2025 04:06 PM 242 mg/dL N Blood chemistry[[id number]] Glucose [Mass/volume] in Serum or Plasma [2345-7] 03/06/2025 03:38 PM 327 mg/dL N Blood chemistry[[id number]] Glucose [Mass/volume] in Serum or Plasma [2345-7] 03/06/2025 12:19 PM 173 mg/dL N Blood chemistry[[id number]] Glucose [Mass/volume] in Serum or Plasma [2345-7] 03/06/2025 10:37 AM 278 mg/dL N Blood chemistry[[id number]] Glucose [Mass/volume] in Serum or Plasma [2345-7] 03/05/2025 04:36 PM 277 mg/dL N Blood chemistry[[id number]] Glucose [Mass/volume] in Serum or Plasma [2345-7] 03/05/2025 12:32 PM 102 mg/dL N Blood chemistry[[id number]] Glucose [Mass/volume] in Serum or Plasma [2345-7] 03/05/2025 11:23 AM 375 mg/dL N Blood chemistry[[id number]] Glucose [Mass/volume] in Serum or Plasma [2345-7] 03/05/2025 09:56 AM 348 mg/dL N Blood chemistry[[id number]] Glucose [Mass/volume] in Serum or Plasma [2345-7] 03/04/2025 04:38 PM 240 mg/dL N Blood chemistry[[id number]] Glucose [Mass/volume] in Serum or Plasma [2345-7] 03/04/2025 12:33 PM 345 mg/dL N Blood chemistry[[id number]] Glucose [Mass/volume] in Serum or Plasma [2345-7] 03/04/2025 11:43 AM 127 mg/dL N Glucose [Mass/volume] in Serum or Plasma [5-7] 03/04/2025 11:43 AM 127 mg/dL N Blood chemistry[[id number]] Glucose [Mass/volume] in Serum or Plasma [5-7] 03/04/2025 09:18 AM 257 mg/dL N Blood chemistry[[id number]] Glucose [Mass/volume] in Serum or Plasma [2345-7] 03/03/2025 03:57 PM 305 mg/dL N Glucose [Mass/volume] in Serum or Plasma [2345-7] 03/03/2025 03:57 PM 305 mg/dL N Blood chemistry[[id number]] Glucose [Mass/volume] in Serum or Plasma [2345-7] 03/03/2025 12:13 PM 362 mg/dL N Blood chemistry[[id number]] Glucose [Mass/volume] in Serum or Plasma [2345-7] 03/03/2025 11:18 AM 169 mg/dL N Blood chemistry[[id number]] Glucose [Mass/volume] in Serum or Plasma [2345-7] 03/03/2025 11:14 AM 169 mg/dL N Blood chemistry[[id number]] Glucose [Mass/volume] in Serum or Plasma [2345-7] 03/03/2025 09:48 AM 313 mg/dL N Blood chemistry[[id number]] Glucose [Mass/volume] in Serum or Plasma [2345-7] 03/02/2025 05:26 PM 301 mg/dL N Blood chemistry[[id number]] Glucose [Mass/volume] in Serum or Plasma [2345-7] 03/02/2025 04:17 PM 305 mg/dL N Blood chemistry[[id number]] Glucose [Mass/volume] in Serum or Plasma [2345-7] 03/02/2025 12:33 PM 234 mg/dL N Blood chemistry[[id number]] Glucose [Mass/volume] in Serum or Plasma [2345-7] 03/02/2025 11:29 AM 249 mg/dL N Blood chemistry[[id number]] Glucose [Mass/volume] in Serum or Plasma [2345-7] 03/02/2025 11:28 AM 269 mg/dL N Blood chemistry[[id number]] Glucose [Mass/volume] in Serum or Plasma [2345-7] 03/02/2025 10:34 AM 238 mg/dL N Blood chemistry[[id number]] Glucose [Mass/volume] in Serum or Plasma [2345-7] 03/02/2025 09:04 AM 290 mg/dL N Blood chemistry[[id number]] Glucose [Mass/volume] in Serum or Plasma [2345-7] 03/01/2025 05:00 PM 304 mg/dL N Blood chemistry[[id number]] Glucose [Mass/volume] in Serum or Plasma [2345-7] 03/01/2025 12:59 PM 138 mg/dL N Blood chemistry[[id number]] Glucose [Mass/volume] in Serum or Plasma [2345-7] 03/01/2025 10:26 AM 190 mg/dL N Blood chemistry[[id number]] Glucose [Mass/volume] in Serum or Plasma [2345-7] 03/01/2025 09:10 AM 237 mg/dL N Blood chemistry[[id number]] Glucose [Mass/volume] in Serum or Plasma [2345-7] 02/28/2025 04:04 PM 232 mg/dL N Blood chemistry[[id number]] Glucose [Mass/volume] in Serum or Plasma [2345-7] 02/28/2025 03:17 PM 275 mg/dL N Blood chemistry[[id number]] Glucose [Mass/volume] in Serum or Plasma [2345-7] 02/28/2025 11:27 AM 116 mg/dL N Blood chemistry[[id number]] Glucose [Mass/volume] in Serum or Plasma [2345-7] 02/28/2025 09:08 AM 275 mg/dL N Blood chemistry[[id number]] Glucose [Mass/volume] in Serum or Plasma [2345-7] 02/27/2025 04:30 PM 266 mg/dL N Blood chemistry[[id number]] Glucose [Mass/volume] in Serum or Plasma [2345-7] 02/27/2025 01:25 PM 310 mg/dL N Blood chemistry[[id number]] Glucose [Mass/volume] in Serum or Plasma [2345-7] 02/27/2025 12:07 PM 121 mg/dL N Blood chemistry[[id number]] Glucose [Mass/volume] in Serum or Plasma [2345-7] 02/27/2025 10:24 AM 124 mg/dL N Blood chemistry[[id number]] Glucose [Mass/volume] in Serum or Plasma [2345-7] 02/27/2025 08:34 AM 282 mg/dL N Blood chemistry[[id number]] Glucose [Mass/volume] in Serum or Plasma [2345-7] 02/26/2025 03:48 PM 318 mg/dL N Blood chemistry[[id number]] Glucose [Mass/volume] in Serum or Plasma [2345-7] 02/26/2025 03:47 PM 318 mg/dL N Blood chemistry[[id number]] Glucose [Mass/volume] in Serum or Plasma [2345-7] 02/26/2025 11:32 AM 153 mg/dL N Blood chemistry[[id number]] Glucose [Mass/volume] in Serum or Plasma [2345-7] 02/26/2025 11:26 AM 280 mg/dL N Blood chemistry[[id number]] Glucose [Mass/volume] in Serum or Plasma [2345-7] 02/26/2025 11:13 AM 153 mg/dL N Blood chemistry[[id number]] Glucose [Mass/volume] in Serum or Plasma [2345-7] 02/26/2025 09:04 AM 356 mg/dL N Blood chemistry[[id number]] Glucose [Mass/volume] in Serum or Plasma [2345-7] 02/26/2025 09:01 AM 356 mg/dL N Blood chemistry[[id number]] Glucose [Mass/volume] in Serum or Plasma [2345-7] 02/25/2025 04:44 PM 163 mg/dL N Blood chemistry[[id number]] Glucose [Mass/volume] in Serum or Plasma [2345-7] 02/25/2025 12:57 PM 149 mg/dL N Blood chemistry[[id number]] Glucose [Mass/volume] in Serum or Plasma [2345-7] 02/25/2025 12:36 PM 274 mg/dL N Blood chemistry[[id number]] Glucose [Mass/volume] in Serum or Plasma [2345-7] 02/25/2025 09:21 AM 213 mg/dL N Blood chemistry[[id number]] Glucose [Mass/volume] in Serum or Plasma [2345-7] 02/24/2025 04:04 PM 395 mg/dL N Blood chemistry[[id number]] Glucose [Mass/volume] in Serum or Plasma [2345-7] 02/24/2025 12:25 PM 376 mg/dL N Glucose [Mass/volume] in Serum or Plasma [2345-7] 02/24/2025 12:25 PM 217 mg/dL N Blood chemistry[[id number]] Glucose [Mass/volume] in Serum or Plasma [2345-7] 02/24/2025 08:32 AM 280 mg/dL N Blood chemistry[[id number]] Glucose [Mass/volume] in Serum or Plasma [2345-7] 02/23/2025 01:27 PM 261 mg/dL N Blood chemistry[[id number]] Glucose [Mass/volume] in Serum or Plasma [2345-7] 02/23/2025 12:57 PM 330 mg/dL N Blood chemistry[[id number]] Glucose [Mass/volume] in Serum or Plasma [2345-7] 02/23/2025 11:38 AM 240 mg/dL N Blood chemistry[[id number]] Glucose [Mass/volume] in Serum or Plasma [2345-7] 02/23/2025 10:10 AM 260 mg/dL N Blood chemistry[[id number]] Glucose [Mass/volume] in Serum or Plasma [2345-7] 02/23/2025 06:08 AM 360 mg/dL N Blood chemistry[[id number]] Glucose [Mass/volume] in Serum or Plasma [2345-7] 02/22/2025 04:12 PM 218 mg/dL N Blood chemistry[[id number]] Glucose [Mass/volume] in Serum or Plasma [2345-7] 02/22/2025 02:57 PM 254 mg/dL N Blood chemistry[[id number]] Glucose [Mass/volume] in Serum or Plasma [2345-7] 02/22/2025 12:49 PM 145 mg/dL N Blood chemistry[[id number]] Glucose [Mass/volume] in Serum or Plasma [2345-7] 02/22/2025 10:18 AM 156 mg/dL N Blood chemistry[[id number]] Glucose [Mass/volume] in Serum or Plasma [2345-7] 02/22/2025 09:15 AM 248 mg/dL N Blood chemistry[[id number]] Glucose [Mass/volume] in Serum or Plasma [2345-7] 02/21/2025 04:57 PM 290 mg/dL N Blood chemistry[[id number]] Glucose [Mass/volume] in Serum or Plasma [2345-7] 02/21/2025 04:01 PM 483 mg/dL N Blood chemistry[[id number]] Glucose [Mass/volume] in Serum or Plasma [2345-7] 02/21/2025 01:05 PM 140 mg/dL N Blood chemistry[[id number]] Glucose [Mass/volume] in Serum or Plasma [2345-7] 02/21/2025 10:18 AM 153 mg/dL N Blood chemistry[[id number]] Glucose [Mass/volume] in Serum or Plasma [2345-7] 02/21/2025 09:38 AM 248 mg/dL N Blood chemistry[[id number]] Glucose [Mass/volume] in Serum or Plasma [2345-7] 02/20/2025 03:39 PM 274 mg/dL N Blood chemistry[[id number]] Glucose [Mass/volume] in Serum or Plasma [2345-7] 02/20/2025 02:42 PM 268 mg/dL N Blood chemistry[[id number]] Glucose [Mass/volume] in Serum or Plasma [2345-7] 02/20/2025 10:45 AM 127 mg/dL N Blood chemistry[[id number]] Glucose [Mass/volume] in Serum or Plasma [2345-7] 02/20/2025 08:51 AM 219 mg/dL N Blood chemistry[[id number]] Glucose [Mass/volume] in Serum or Plasma [2345-7] 02/19/2025 05:37 PM 154 mg/dL N Blood chemistry[[id number]] Glucose [Mass/volume] in Serum or Plasma [2345-7] 02/19/2025 02:25 PM 118 mg/dL N Blood chemistry[[id number]] Glucose [Mass/volume] in Serum or Plasma [2345-7] 02/19/2025 12:46 PM 337 mg/dL N Blood chemistry[[id number]] Glucose [Mass/volume] in Serum or Plasma [2345-7] 02/19/2025 10:15 AM 203 mg/dL N Blood chemistry[[id number]] Glucose [Mass/volume] in Serum or Plasma [2345-7] 02/18/2025 05:05 PM 250 mg/dL N Blood chemistry[[id number]] Glucose [Mass/volume] in Serum or Plasma [2345-7] 02/18/2025 12:34 PM 251 mg/dL N Blood chemistry[[id number]] Glucose [Mass/volume] in Serum or Plasma [2345-7] 02/18/2025 12:25 PM 119 mg/dL N Blood chemistry[[id number]] Glucose [Mass/volume] in Serum or Plasma [2345-7] 02/18/2025 09:30 AM 293 mg/dL N Blood chemistry[[id number]] Glucose [Mass/volume] in Serum or Plasma [2345-7] 02/17/2025 04:13 PM 318 mg/dL N Blood chemistry[[id number]] Glucose [Mass/volume] in Serum or Plasma [2345-7] 02/17/2025 12:51 PM 138 mg/dL N Blood chemistry[[id number]] Glucose [Mass/volume] in Serum or Plasma [2345-7] 02/17/2025 12:22 PM 252 mg/dL N Blood chemistry[[id number]] Glucose [Mass/volume] in Serum or Plasma [2345-7] 02/17/2025 10:02 AM 267 mg/dL N Blood chemistry[[id number]] Glucose [Mass/volume] in Serum or Plasma [2345-7] 02/16/2025 04:09 PM 212 mg/dL N Blood chemistry[[id number]] Glucose [Mass/volume] in Serum or Plasma [2345-7] 02/16/2025 12:54 PM 293 mg/dL N Blood chemistry[[id number]] Glucose [Mass/volume] in Serum or Plasma [2345-7] 02/16/2025 11:46 AM 133 mg/dL N Blood chemistry[[id number]] Glucose [Mass/volume] in Serum or Plasma [2345-7] 02/16/2025 10:22 AM 151 mg/dL N Blood chemistry[[id number]] Glucose [Mass/volume] in Serum or Plasma [2345-7] 02/16/2025 09:35 AM 284 mg/dL N Blood chemistry[[id number]] Glucose [Mass/volume] in Serum or Plasma [2345-7] 02/15/2025 04:11 PM 191 mg/dL N Blood chemistry[[id number]] Glucose [Mass/volume] in Serum or Plasma [2345-7] 02/15/2025 01:36 PM 179 mg/dL N Blood chemistry[[id number]] Glucose [Mass/volume] in Serum or Plasma [2345-7] 02/15/2025 12:58 PM 346 mg/dL N Blood chemistry[[id number]] Glucose [Mass/volume] in Serum or Plasma [2345-7] 02/15/2025 10:07 AM 166 mg/dL N Blood chemistry[[id number]] Glucose [Mass/volume] in Serum or Plasma [2345-7] 02/15/2025 09:19 AM 217 mg/dL N Blood chemistry[[id number]] Glucose [Mass/volume] in Serum or Plasma [2345-7] 02/14/2025 05:28 PM 309 mg/dL N Blood chemistry[[id number]] Glucose [Mass/volume] in Serum or Plasma [2345-7] 02/14/2025 02:21 PM 254 mg/dL N Blood chemistry[[id number]] Glucose [Mass/volume] in Serum or Plasma [2345-7] 02/14/2025 12:05 PM 210 mg/dL N Blood chemistry[[id number]] Glucose [Mass/volume] in Serum or Plasma [2345-7] 02/14/2025 10:24 AM 232 mg/dL N Blood chemistry[[id number]] Glucose [Mass/volume] in Serum or Plasma [2345-7] 02/14/2025 10:22 AM 177 mg/dL N Blood chemistry[[id number]] Glucose [Mass/volume] in Serum or Plasma [2345-7] 02/13/2025 03:46 PM 262 mg/dL N Blood chemistry[[id number]] Glucose [Mass/volume] in Serum or Plasma [2345-7] 02/13/2025 01:15 PM 202 mg/dL N Blood chemistry[[id number]] Glucose [Mass/volume] in Serum or Plasma [2345-7] 02/13/2025 11:45 AM 192 mg/dL N Blood chemistry[[id number]] Glucose [Mass/volume] in Serum or Plasma [2345-7] 02/13/2025 08:57 AM 332 mg/dL N Blood chemistry[[id number]] Glucose [Mass/volume] in Serum or Plasma [2345-7] 02/12/2025 03:36 PM 278 mg/dL N Blood chemistry[[id number]] Glucose [Mass/volume] in Serum or Plasma [2345-7] 02/12/2025 03:13 PM 204 mg/dL N Blood chemistry[[id number]] Glucose [Mass/volume] in Serum or Plasma [2345-7] 02/12/2025 11:36 AM 186 mg/dL N Blood chemistry[[id number]] Glucose [Mass/volume] in Serum or Plasma [2345-7] 02/12/2025 09:08 AM 200 mg/dL N Blood chemistry[[id number]] Glucose [Mass/volume] in Serum or Plasma [2345-7] 02/11/2025 04:12 PM 210 mg/dL N Blood chemistry[[id number]] Glucose [Mass/volume] in Serum or Plasma [2345-7] 02/11/2025 12:03 PM 299 mg/dL N Blood chemistry[[id number]] Glucose [Mass/volume] in Serum or Plasma [2345-7] 02/11/2025 11:12 AM 152 mg/dL N Blood chemistry[[id number]] Glucose [Mass/volume] in Serum or Plasma [2345-7] 02/11/2025 09:12 AM 208 mg/dL N Blood chemistry[[id number]] Glucose [Mass/volume] in Serum or Plasma [2345-7] 02/10/2025 05:10 PM 244 mg/dL N Blood chemistry[[id number]] Glucose [Mass/volume] in Serum or Plasma [2345-7] 02/10/2025 02:52 PM 180 mg/dL N Blood chemistry[[id number]] Glucose [Mass/volume] in Serum or Plasma [2345-7] 02/10/2025 12:33 PM 334 mg/dL N Blood chemistry[[id number]] Glucose [Mass/volume] in Serum or Plasma [2345-7] 02/10/2025 09:49 AM 220 mg/dL N Blood chemistry[[id number]] Glucose [Mass/volume] in Serum or Plasma [2345-7] 02/09/2025 05:37 PM 231 mg/dL N Blood chemistry[[id number]] Glucose [Mass/volume] in Serum or Plasma [2345-7] 02/09/2025 01:17 PM 260 mg/dL N Blood chemistry[[id number]] Glucose [Mass/volume] in Serum or Plasma [2345-7] 02/09/2025 12:40 PM 170 mg/dL N Blood chemistry[[id number]] Glucose [Mass/volume] in Serum or Plasma [2345-7] 02/09/2025 10:00 AM 179 mg/dL N Blood chemistry[[id number]] Glucose [Mass/volume] in Serum or Plasma [2345-7] 02/09/2025 09:12 AM 262 mg/dL N Blood chemistry[[id number]] Glucose [Mass/volume] in Serum or Plasma [2345-7] 02/08/2025 04:57 PM 255 mg/dL N Blood chemistry[[id number]] Glucose [Mass/volume] in Serum or Plasma [2345-7] 02/08/2025 04:22 PM 312 mg/dL N Blood chemistry[[id number]] Glucose [Mass/volume] in Serum or Plasma [2345-7] 02/08/2025 02:33 PM 205 mg/dL N Blood chemistry[[id number]] Glucose [Mass/volume] in Serum or Plasma [2345-7] 02/08/2025 10:32 AM 202 mg/dL N Blood chemistry[[id number]] Glucose [Mass/volume] in Serum or Plasma [2345-7] 02/08/2025 09:55 AM 200 mg/dL N Blood chemistry[[id number]] Glucose [Mass/volume] in Serum or Plasma [2345-7] 02/07/2025 04:25 PM 203 mg/dL N Blood chemistry[[id number]] Glucose [Mass/volume] in Serum or Plasma [2345-7] 02/07/2025 12:43 PM 151 mg/dL N Blood chemistry[[id number]] Glucose [Mass/volume] in Serum or Plasma [2345-7] 02/07/2025 12:15 PM 142 mg/dL N Blood chemistry[[id number]] Glucose [Mass/volume] in Serum or Plasma [2345-7] 02/07/2025 10:18 AM 207 mg/dL N Blood chemistry[[id number]] Glucose [Mass/volume] in Serum or Plasma [2345-7] 02/07/2025 09:23 AM 221 mg/dL N Blood chemistry[[id number]] Glucose [Mass/volume] in Serum or Plasma [2345-7] 02/06/2025 04:07 PM 199 mg/dL N Blood chemistry[[id number]] Glucose [Mass/volume] in Serum or Plasma [2345-7] 02/06/2025 02:03 PM 208 mg/dL N Blood chemistry[[id number]] Glucose [Mass/volume] in Serum or Plasma [2345-7] 02/06/2025 10:36 AM 89 mg/dL N Blood chemistry[[id number]] Glucose [Mass/volume] in Serum or Plasma [2345-7] 02/06/2025 08:41 AM 274 mg/dL N Blood chemistry[[id number]] Glucose [Mass/volume] in Serum or Plasma [2345-7] 02/05/2025 04:00 PM 210 mg/dL N Blood chemistry[[id number]] Glucose [Mass/volume] in Serum or Plasma [2345-7] 02/05/2025 12:47 PM 390 mg/dL N Blood chemistry[[id number]] Glucose [Mass/volume] in Serum or Plasma [2345-7] 02/05/2025 12:28 PM 187 mg/dL N Blood chemistry[[id number]] Glucose [Mass/volume] in Serum or Plasma [2345-7] 02/05/2025 09:15 AM 200 mg/dL N Blood chemistry[[id number]] Glucose [Mass/volume] in Serum or Plasma [2345-7] 02/04/2025 04:58 PM 181 mg/dL N Blood chemistry[[id number]] Glucose [Mass/volume] in Serum or Plasma [2345-7] 02/04/2025 12:58 PM 111 mg/dL N Blood chemistry[[id number]] Glucose [Mass/volume] in Serum or Plasma [2345-7] 02/04/2025 12:19 PM 111 mg/dL N Blood chemistry[[id number]] Glucose [Mass/volume] in Serum or Plasma [2345-7] 02/04/2025 11:58 AM 308 mg/dL N Blood chemistry[[id number]] Glucose [Mass/volume] in Serum or Plasma [2345-7] 02/04/2025 09:57 AM 238 mg/dL N Blood chemistry[[id number]] Glucose [Mass/volume] in Serum or Plasma [2345-7] 02/03/2025 04:57 PM 293 mg/dL N Blood chemistry[[id number]] Glucose [Mass/volume] in Serum or Plasma [2345-7] 02/03/2025 12:25 PM 354 mg/dL N Glucose [Mass/volume] in Serum or Plasma [2345-7] 02/03/2025 12:25 PM 354 mg/dL N Blood chemistry[[id number]] Glucose [Mass/volume] in Serum or Plasma [2345-7] 02/03/2025 11:28 AM 164 mg/dL N Blood chemistry[[id number]] Glucose [Mass/volume] in Serum or Plasma [2345-7] 02/03/2025 09:53 AM 320 mg/dL N Blood chemistry[[id number]] Glucose [Mass/volume] in Serum or Plasma [2345-7] 02/02/2025 03:55 PM 230 mg/dL N Blood chemistry[[id number]] Glucose [Mass/volume] in Serum or Plasma [2345-7] 02/02/2025 12:44 PM 400 mg/dL N Blood chemistry[[id number]] Glucose [Mass/volume] in Serum or Plasma [2345-7] 02/02/2025 11:48 AM 144 mg/dL N Blood chemistry[[id number]] Glucose [Mass/volume] in Serum or Plasma [2345-7] 02/02/2025 10:18 AM 150 mg/dL N Blood chemistry[[id number]] Glucose [Mass/volume] in Serum or Plasma [2345-7] 02/02/2025 09:09 AM 400 mg/dL N Blood chemistry[[id number]] Glucose [Mass/volume] in Serum or Plasma [2345-7] 02/01/2025 05:16 PM 286 mg/dL N Blood chemistry[[id number]] Glucose [Mass/volume] in Serum or Plasma [2345-7] 02/01/2025 04:04 PM 348 mg/dL N Blood chemistry[[id number]] Glucose [Mass/volume] in Serum or Plasma [2345-7] 02/01/2025 12:43 PM 248 mg/dL N Blood chemistry[[id number]] Glucose [Mass/volume] in Serum or Plasma [2345-7] 02/01/2025 10:15 AM 193 mg/dL N Blood chemistry[[id number]] Glucose [Mass/volume] in Serum or Plasma [2345-7] 02/01/2025 09:53 AM 238 mg/dL N Blood chemistry[[id number]] Glucose [Mass/volume] in Serum or Plasma [2345-7] 01/31/2025 04:25 PM 226 mg/dL N Blood chemistry[[id number]] Glucose [Mass/volume] in Serum or Plasma [2345-7] 01/31/2025 02:30 PM 284 mg/dL N Blood chemistry[[id number]] Glucose [Mass/volume] in Serum or Plasma [2345-7] 01/31/2025 01:55 PM 284 mg/dL N Blood chemistry[[id number]] Glucose [Mass/volume] in Serum or Plasma [2345-7] 01/31/2025 01:43 PM 167 mg/dL N Blood chemistry[[id number]] Glucose [Mass/volume] in Serum or Plasma [2345-7] 01/31/2025 10:45 AM 169 mg/dL N Blood chemistry[[id number]] Glucose [Mass/volume] in Serum or Plasma [2345-7] 01/31/2025 09:30 AM 231 mg/dL N Blood chemistry[[id number]] Glucose [Mass/volume] in Serum or Plasma [2345-7] 01/30/2025 04:23 PM 296 mg/dL N Blood chemistry[[id number]] Glucose [Mass/volume] in Serum or Plasma [2345-7] 01/30/2025 03:34 PM 280 mg/dL N Blood chemistry[[id number]] Glucose [Mass/volume] in Serum or Plasma [5-7] 01/30/2025 11:44 AM 189 mg/dL N Blood chemistry[[id number]] Glucose [Mass/volume] in Serum or Plasma [2345-7] 01/30/2025 10:23 AM 188 mg/dL N Blood chemistry[[id number]] Glucose [Mass/volume] in Serum or Plasma [2345-7] 01/30/2025 08:40 AM 329 mg/dL N Blood chemistry[[id number]] Glucose [Mass/volume] in Serum or Plasma [2345-7] 01/29/2025 03:37 PM 219 mg/dL N Blood chemistry[[id number]] Glucose [Mass/volume] in Serum or Plasma [2345-7] 01/29/2025 02:09 PM 390 mg/dL N Blood chemistry[[id number]] Glucose [Mass/volume] in Serum or Plasma [2345-7] 01/29/2025 11:39 AM 98 mg/dL N Blood chemistry[[id number]] Glucose [Mass/volume] in Serum or Plasma [2345-7] 01/29/2025 08:50 AM 293 mg/dL N Blood chemistry[[id number]] Glucose [Mass/volume] in Serum or Plasma [2345-7] 01/28/2025 04:21 PM 143 mg/dL N Blood chemistry[[id number]] Glucose [Mass/volume] in Serum or Plasma [2345-7] 01/28/2025 12:52 PM 292 mg/dL N Blood chemistry[] Glucose [Mass/volume] in Serum or Plasma [2345-7] 01/28/2025 11:19 AM 161 mg/dL N Blood chemistry[[id number]] Glucose [Mass/volume] in Serum or Plasma [2345-7] 01/28/2025 09:22 AM 168 mg/dL N Blood chemistry[] Glucose [Mass/volume] in Serum or Plasma [2345-7] 01/27/2025 12:51 PM 306 mg/dL N Blood chemistry[[id number]] Glucose [Mass/volume] in Serum or Plasma [2345-7] 01/27/2025 11:28 AM 164 mg/dL N Glucose [Mass/volume] in Serum or Plasma [2345-7] 01/27/2025 11:28 AM 164 mg/dL N Blood chemistry[[id number]] Glucose [Mass/volume] in Serum or Plasma [2345-7] 01/27/2025 09:16 AM 247 mg/dL N Blood chemistry[[id number]] Glucose [Mass/volume] in Serum or Plasma [2345-7] 01/26/2025 05:05 PM 243 mg/dL N Blood chemistry[[id number]] Glucose [Mass/volume] in Serum or Plasma [2345-7] 01/26/2025 12:25 PM 226 mg/dL N Blood chemistry[[id number]] Glucose [Mass/volume] in Serum or Plasma [2345-7] 01/26/2025 11:37 AM 122 mg/dL N Blood chemistry[[id number]] Glucose [Mass/volume] in Serum or Plasma [2345-7] 01/26/2025 10:36 AM 171 mg/dL N Blood chemistry[[id number]] Glucose [Mass/volume] in Serum or Plasma [2345-7] 01/26/2025 10:03 AM 188 mg/dL N Blood chemistry[[id number]] Glucose [Mass/volume] in Serum or Plasma [2345-7] 01/25/2025 04:41 PM 320 mg/dL N Blood chemistry[[id number]] Glucose [Mass/volume] in Serum or Plasma [2345-7] 01/25/2025 03:06 PM 290 mg/dL N Blood chemistry[[id number]] Glucose [Mass/volume] in Serum or Plasma [2345-7] 01/25/2025 01:12 PM 224 mg/dL N Blood chemistry[[id number]] Glucose [Mass/volume] in Serum or Plasma [2345-7] 01/25/2025 10:04 AM 203 mg/dL N Blood chemistry[[id number]] Glucose [Mass/volume] in Serum or Plasma [2345-7] 01/25/2025 08:51 AM 199 mg/dL N Blood chemistry[[id number]] Glucose [Mass/volume] in Serum or Plasma [2345-7] 01/24/2025 03:17 PM 317 mg/dL N Blood chemistry[[id number]] Glucose [Mass/volume] in Serum or Plasma [2345-7] 01/24/2025 12:43 PM 225 mg/dL N Blood chemistry[[id number]] Glucose [Mass/volume] in Serum or Plasma [2345-7] 01/24/2025 11:42 AM 337 mg/dL N Blood chemistry[[id number]] Glucose [Mass/volume] in Serum or Plasma [2345-7] 01/24/2025 10:44 AM 184 mg/dL N Blood chemistry[[id number]] Glucose [Mass/volume] in Serum or Plasma [2345-7] 01/24/2025 09:32 AM 250 mg/dL N Blood chemistry[[id number]] Glucose [Mass/volume] in Serum or Plasma [2345-7] 01/23/2025 03:30 PM 304 mg/dL N Blood chemistry[[id number]] Glucose [Mass/volume] in Serum or Plasma [2345-7] 01/23/2025 01:45 PM 284 mg/dL N Blood chemistry[[id number]] Glucose [Mass/volume] in Serum or Plasma [2345-7] 01/23/2025 12:18 PM 156 mg/dL N Blood chemistry[[id number]] Glucose [Mass/volume] in Serum or Plasma [2345-7] 01/23/2025 08:19 AM 322 mg/dL N Blood chemistry[[id number]] Glucose [Mass/volume] in Serum or Plasma [2345-7] 01/22/2025 01:34 PM 197 mg/dL N Blood chemistry[[id number]] Glucose [Mass/volume] in Serum or Plasma [2345-7] 01/22/2025 01:23 PM 169 mg/dL N Blood chemistry[[id number]] Glucose [Mass/volume] in Serum or Plasma [2345-7] 01/22/2025 09:25 AM 219 mg/dL N Blood chemistry[[id number]] Glucose [Mass/volume] in Serum or Plasma [2345-7] 01/22/2025 06:20 AM 258 mg/dL N Blood chemistry[[id number]] Glucose [Mass/volume] in Serum or Plasma [2345-7] 01/21/2025 04:18 PM 220 mg/dL N Blood chemistry[[id number]] Glucose [Mass/volume] in Serum or Plasma [2345-7] 01/21/2025 02:49 PM 132 mg/dL N Blood chemistry[[id number]] Glucose [Mass/volume] in Serum or Plasma [2345-7] 01/21/2025 02:13 PM 213 mg/dL N Blood chemistry[[id number]] Glucose [Mass/volume] in Serum or Plasma [2345-7] 01/21/2025 01:06 PM 215 mg/dL N Blood chemistry[[id number]] Glucose [Mass/volume] in Serum or Plasma [2345-7] 01/21/2025 09:40 AM 179 mg/dL N Blood chemistry[[id number]] Glucose [Mass/volume] in Serum or Plasma [2345-7] 01/20/2025 05:03 PM 150 mg/dL N Blood chemistry[[id number]] Glucose [Mass/volume] in Serum or Plasma [2345-7] 01/20/2025 02:30 PM 138 mg/dL N Blood chemistry[[id number]] Glucose [Mass/volume] in Serum or Plasma [2345-7] 01/20/2025 12:12 PM 233 mg/dL N Blood chemistry[[id number]] Glucose [Mass/volume] in Serum or Plasma [2345-7] 01/20/2025 09:47 AM 209 mg/dL N Blood chemistry[[id number]] Glucose [Mass/volume] in Serum or Plasma [2345-7] 01/19/2025 03:48 PM 319 mg/dL N Blood chemistry[[id number]] Glucose [Mass/volume] in Serum or Plasma [2345-7] 01/19/2025 11:47 AM 155 mg/dL N Blood chemistry[[id number]] Glucose [Mass/volume] in Serum or Plasma [2345-7] 01/19/2025 11:33 AM 230 mg/dL N Blood chemistry[[id number]] Glucose [Mass/volume] in Serum or Plasma [2345-7] 01/19/2025 08:47 AM 344 mg/dL N Blood chemistry[[id number]] Glucose [Mass/volume] in Serum or Plasma [2345-7] 01/18/2025 03:51 PM 239 mg/dL N Blood chemistry[[id number]] Glucose [Mass/volume] in Serum or Plasma [2345-7] 01/18/2025 02:08 PM 243 mg/dL N Blood chemistry[[id number]] Glucose [Mass/volume] in Serum or Plasma [2345-7] 01/18/2025 01:27 PM 272 mg/dL N Blood chemistry[[id number]] Glucose [Mass/volume] in Serum or Plasma [2345-7] 01/18/2025 12:20 PM 272 mg/dL N Blood chemistry[[id number]] Glucose [Mass/volume] in Serum or Plasma [2345-7] 01/18/2025 09:35 AM 206 mg/dL N Blood chemistry[[id number]] Glucose [Mass/volume] in Serum or Plasma [2345-7] 01/18/2025 09:34 AM 206 mg/dL N Blood chemistry[[id number]] Glucose [Mass/volume] in Serum or Plasma [2345-7] 01/17/2025 05:27 PM 181 mg/dL N Blood chemistry[[id number]] Glucose [Mass/volume] in Serum or Plasma [2345-7] 01/17/2025 04:16 PM 198 mg/dL N Blood chemistry[[id number]] Glucose [Mass/volume] in Serum or Plasma [2345-7] 01/17/2025 02:54 PM 225 mg/dL N Blood chemistry[[id number]] Glucose [Mass/volume] in Serum or Plasma [2345-7] 01/17/2025 10:28 AM 177 mg/dL N Glucose [Mass/volume] in Serum or Plasma [2345-7] 01/17/2025 10:28 AM 177 mg/dL N Blood chemistry[[id number]] Glucose [Mass/volume] in Serum or Plasma [2345-7] 01/16/2025 05:44 PM 156 mg/dL N Blood chemistry[[id number]] Glucose [Mass/volume] in Serum or Plasma [2345-7] 01/16/2025 02:25 PM 155 mg/dL N Blood chemistry[[id number]] Glucose [Mass/volume] in Serum or Plasma [2345-7] 01/16/2025 01:11 PM 352 mg/dL N Blood chemistry[[id number]] Glucose [Mass/volume] in Serum or Plasma [2345-7] 01/16/2025 11:23 AM 206 mg/dL N Blood chemistry[[id number]] Glucose [Mass/volume] in Serum or Plasma [2345-7] 01/16/2025 10:33 AM 148 mg/dL N Blood chemistry[[id number]] Glucose [Mass/volume] in Serum or Plasma [2345-7] 01/16/2025 09:33 AM 223 mg/dL N Blood chemistry[[id number]] Glucose [Mass/volume] in Serum or Plasma [2345-7] 01/15/2025 03:12 PM 136 mg/dL N Blood chemistry[[id number]] Glucose [Mass/volume] in Serum or Plasma [2345-7] 01/15/2025 01:40 PM 225 mg/dL N Blood chemistry[[id number]] Glucose [Mass/volume] in Serum or Plasma [2345-7] 01/15/2025 11:24 AM 116 mg/dL N Blood chemistry[[id number]] Glucose [Mass/volume] in Serum or Plasma [2345-7] 01/15/2025 08:17 AM 170 mg/dL N Blood chemistry[[id number]] Glucose [Mass/volume] in Serum or Plasma [2345-7] 01/14/2025 03:53 PM 243 mg/dL N Blood chemistry[[id number]] Glucose [Mass/volume] in Serum or Plasma [2345-7] 01/14/2025 12:18 PM 106 mg/dL N Blood chemistry[[id number]] Glucose [Mass/volume] in Serum or Plasma [2345-7] 01/14/2025 11:50 AM 268 mg/dL N Blood chemistry[[id number]] Glucose [Mass/volume] in Serum or Plasma [2345-7] 01/14/2025 11:34 AM 106 mg/dL N Blood chemistry[[id number]] Glucose [Mass/volume] in Serum or Plasma [2345-7] 01/14/2025 09:09 AM 146 mg/dL N Blood chemistry[[id number]] Glucose [Mass/volume] in Serum or Plasma [2345-7] 01/13/2025 03:17 PM 204 mg/dL N Blood chemistry[[id number]] Glucose [Mass/volume] in Serum or Plasma [2345-7] 01/13/2025 12:25 PM 144 mg/dL N Blood chemistry[[id number]] Glucose [Mass/volume] in Serum or Plasma [2345-7] 01/13/2025 11:36 AM 153 mg/dL N Blood chemistry[[id number]] Glucose [Mass/volume] in Serum or Plasma [2345-7] 01/13/2025 08:41 AM 418 mg/dL N Blood chemistry[[id number]] Glucose [Mass/volume] in Serum or Plasma [2345-7] 01/12/2025 05:20 PM 153 mg/dL N Blood chemistry[[id number]] Glucose [Mass/volume] in Serum or Plasma [2345-7] 01/12/2025 02:41 PM 207 mg/dL N Blood chemistry[[id number]] Glucose [Mass/volume] in Serum or Plasma [2345-7] 01/12/2025 11:47 AM 246 mg/dL N Blood chemistry[[id number]] Glucose [Mass/volume] in Serum or Plasma [2345-7] 01/12/2025 10:35 AM 156 mg/dL N Blood chemistry[[id number]] Glucose [Mass/volume] in Serum or Plasma [2345-7] 01/12/2025 09:11 AM 158 mg/dL N Blood chemistry[[id number]] Glucose [Mass/volume] in Serum or Plasma [2345-7] 01/11/2025 04:25 PM 175 mg/dL N Blood chemistry[[id number]] Glucose [Mass/volume] in Serum or Plasma [2345-7] 01/11/2025 02:17 PM 239 mg/dL N Blood chemistry[[id number]] Glucose [Mass/volume] in Serum or Plasma [2345-7] 01/11/2025 01:23 PM 135 mg/dL N Blood chemistry[[id number]] Glucose [Mass/volume] in Serum or Plasma [2345-7] 01/11/2025 10:18 AM 139 mg/dL N Blood chemistry[[id number]] Glucose [Mass/volume] in Serum or Plasma [2345-7] 01/11/2025 08:51 AM 218 mg/dL N Blood chemistry[[id number]] Glucose [Mass/volume] in Serum or Plasma [2345-7] 01/10/2025 04:14 PM 269 mg/dL N Blood chemistry[[id number]] Glucose [Mass/volume] in Serum or Plasma [2345-7] 01/10/2025 09:01 AM 191 mg/dL N Blood chemistry[[id number]] Glucose [Mass/volume] in Serum or Plasma [2345-7] 12/05/2024 04:18 PM 237 mg/dL N Blood chemistry[[id number]] Glucose [Mass/volume] in Serum or Plasma [2345-7] 12/05/2024 08:12 AM 186 mg/dL N Blood chemistry[[id number]] Glucose [Mass/volume] in Serum or Plasma [2345-7] 12/05/2024 01:50 PM 189 mg/dL N Blood chemistry[[id number]] Glucose [Mass/volume] in Serum or Plasma [2345-7] 12/05/2024 09:41 AM 175 mg/dL N Blood chemistry[[id number]] Glucose [Mass/volume] in Serum or Plasma [2345-7] 12/04/2024 12:20 PM 141 mg/dL N Blood chemistry[[id number]] Glucose [Mass/volume] in Serum or Plasma [2345-7] 12/04/2024 11:27 AM 141 mg/dL N Blood chemistry[[id number]] Glucose [Mass/volume] in Serum or Plasma [2345-7] 12/04/2024 03:41 PM 271 mg/dL N Blood chemistry[[id number]] Glucose [Mass/volume] in Serum or Plasma [2345-7] 12/04/2024 09:07 AM 148 mg/dL N Blood chemistry[[id number]] Glucose [Mass/volume] in Serum or Plasma [2345-7] 12/04/2024 12:50 PM 93 mg/dL N Blood chemistry[[id number]] Glucose [Mass/volume] in Serum or Plasma [2345-7] 12/03/2024 12:47 PM 197 mg/dL N Blood chemistry[[id number]] Glucose [Mass/volume] in Serum or Plasma [5-7] 12/03/2024 12:45 PM 197 mg/dL N Blood chemistry[[id number]] Glucose [Mass/volume] in Serum or Plasma [2345-7] 12/03/2024 04:15 PM 210 mg/dL N Blood chemistry[[id number]] Glucose [Mass/volume] in Serum or Plasma [2345-7] 12/03/2024 09:03 AM 257 mg/dL N Blood chemistry[[id number]] Glucose [Mass/volume] in Serum or Plasma [2345-7] 12/03/2024 11:21 AM 160 mg/dL N Blood chemistry[[id number]] Glucose [Mass/volume] in Serum or Plasma [2345-7] 12/03/2024 11:20 AM 160 mg/dL N Blood chemistry[[id number]] Glucose [Mass/volume] in Serum or Plasma [2345-7] 12/02/2024 02:38 PM 202 mg/dL N Blood chemistry[[id number]] Glucose [Mass/volume] in Serum or Plasma [2345-7] 12/02/2024 01:41 PM 202 mg/dL N Blood chemistry[[id number]] Glucose [Mass/volume] in Serum or Plasma [2345-7] 12/02/2024 04:10 PM 394 mg/dL N Blood chemistry[[id number]] Glucose [Mass/volume] in Serum or Plasma [2345-7] 12/02/2024 09:32 AM 174 mg/dL N Blood chemistry[[id number]] Glucose [Mass/volume] in Serum or Plasma [2345-7] 12/02/2024 09:30 AM 174 mg/dL N Blood chemistry[[id number]] Glucose [Mass/volume] in Serum or Plasma [2345-7] 12/02/2024 12:43 PM 158 mg/dL N Blood chemistry[[id number]] Glucose [Mass/volume] in Serum or Plasma [2345-7] 12/02/2024 10:02 AM 199 mg/dL N Blood chemistry[[id number]] Glucose [Mass/volume] in Serum or Plasma [2345-7] 12/01/2024 12:18 PM 203 mg/dL N Blood chemistry[[id number]] Glucose [Mass/volume] in Serum or Plasma [2345-7] 12/01/2024 04:42 PM 263 mg/dL N Blood chemistry[[id number]] Glucose [Mass/volume] in Serum or Plasma [2345-7] 12/01/2024 09:51 AM 152 mg/dL N Blood chemistry[[id number]] Glucose [Mass/volume] in Serum or Plasma [2345-7] 12/01/2024 12:25 PM 189 mg/dL N Blood chemistry[[id number]] Glucose [Mass/volume] in Serum or Plasma [2345-7] 12/01/2024 10:46 AM 189 mg/dL N Blood chemistry[[id number]] Glucose [Mass/volume] in Serum or Plasma [2345-7] 11/30/2024 01:47 PM 206 mg/dL N Blood chemistry[[id number]] Glucose [Mass/volume] in Serum or Plasma [2345-7] 11/30/2024 04:12 PM 187 mg/dL N Blood chemistry[[id number]] Glucose [Mass/volume] in Serum or Plasma [2345-7] 11/30/2024 09:03 AM 179 mg/dL N Blood chemistry[[id number]] Glucose [Mass/volume] in Serum or Plasma [2345-7] 11/30/2024 12:07 PM 165 mg/dL N Blood chemistry[[id number]] Glucose [Mass/volume] in Serum or Plasma [2345-7] 11/30/2024 10:12 AM 174 mg/dL N Blood chemistry[[id number]] Glucose [Mass/volume] in Serum or Plasma [2345-7] 11/29/2024 12:39 PM 221 mg/dL N Blood chemistry[[id number]] Glucose [Mass/volume] in Serum or Plasma [2345-7] 11/29/2024 09:03 AM 232 mg/dL N Blood chemistry[[id number]] Glucose [Mass/volume] in Serum or Plasma [2345-7] 11/29/2024 12:57 PM 169 mg/dL N Blood chemistry[[id number]] Glucose [Mass/volume] in Serum or Plasma [2345-7] 11/29/2024 10:16 AM 164 mg/dL N Blood chemistry[[id number]] Glucose [Mass/volume] in Serum or Plasma [2345-7] 11/28/2024 12:16 PM 225 mg/dL N Blood chemistry[[id number]] Glucose [Mass/volume] in Serum or Plasma [2345-7] 11/28/2024 03:32 PM 232 mg/dL N Blood chemistry[[id number]] Glucose [Mass/volume] in Serum or Plasma [2345-7] 11/28/2024 09:18 AM 240 mg/dL N Blood chemistry[[id number]] Glucose [Mass/volume] in Serum or Plasma [2345-7] 11/28/2024 01:16 PM 232 mg/dL N Blood chemistry[[id number]] Glucose [Mass/volume] in Serum or Plasma [2345-7] 11/27/2024 01:00 PM 298 mg/dL N Blood chemistry[[id number]] Glucose [Mass/volume] in Serum or Plasma [2345-7] 11/27/2024 04:45 PM 204 mg/dL N Blood chemistry[[id number]] Glucose [Mass/volume] in Serum or Plasma [2345-7] 11/27/2024 09:45 AM 240 mg/dL N Blood chemistry[[id number]] Glucose [Mass/volume] in Serum or Plasma [2345-7] 11/27/2024 11:21 AM 166 mg/dL N Blood chemistry[[id number]] Glucose [Mass/volume] in Serum or Plasma [2345-7] 11/26/2024 12:11 PM 314 mg/dL N Blood chemistry[[id number]] Glucose [Mass/volume] in Serum or Plasma [2345-7] 11/26/2024 04:21 PM 256 mg/dL N Blood chemistry[[id number]] Glucose [Mass/volume] in Serum or Plasma [2345-7] 11/26/2024 09:22 AM 164 mg/dL N Blood chemistry[[id number]] Glucose [Mass/volume] in Serum or Plasma [2345-7] 11/26/2024 12:44 PM 326 mg/dL N Blood chemistry[[id number]] Glucose [Mass/volume] in Serum or Plasma [2345-7] 11/26/2024 10:04 AM 326 mg/dL N Blood chemistry[[id number]] Glucose [Mass/volume] in Serum or Plasma [2345-7] 11/25/2024 11:51 AM 225 mg/dL N Blood chemistry[[id number]] Glucose [Mass/volume] in Serum or Plasma [2345-7] 11/25/2024 05:19 PM 298 mg/dL N Blood chemistry[[id number]] Glucose [Mass/volume] in Serum or Plasma [2345-7] 11/25/2024 05:18 PM 298 mg/dL N Blood chemistry[[id number]] Glucose [Mass/volume] in Serum or Plasma [2345-7] 11/25/2024 09:49 AM 266 mg/dL N Blood chemistry[[id number]] Glucose [Mass/volume] in Serum or Plasma [2345-7] 11/25/2024 09:47 AM 266 mg/dL N Blood chemistry[[id number]] Glucose [Mass/volume] in Serum or Plasma [2345-7] 11/25/2024 11:53 AM 277 mg/dL N Blood chemistry[[id number]] Glucose [Mass/volume] in Serum or Plasma [2345-7] 11/25/2024 09:50 AM 88 mg/dL N Blood chemistry[[id number]] Glucose [Mass/volume] in Serum or Plasma [2345-7] 11/25/2024 09:40 AM 274 mg/dL N Blood chemistry[[id number]] Glucose [Mass/volume] in Serum or Plasma [2345-7] 11/25/2024 06:06 AM 110 mg/dL N Blood chemistry[[id number]] Glucose [Mass/volume] in Serum or Plasma [2345-7] 11/24/2024 04:21 PM 298 mg/dL N Blood chemistry[[id number]] Glucose [Mass/volume] in Serum or Plasma [2345-7] 11/24/2024 04:20 PM 298 mg/dL N Blood chemistry[[id number]] Glucose [Mass/volume] in Serum or Plasma [2345-7] 11/24/2024 02:55 PM 229 mg/dL N Blood chemistry[[id number]] Glucose [Mass/volume] in Serum or Plasma [2345-7] 11/24/2024 01:29 PM 229 mg/dL N Blood chemistry[[id number]] Glucose [Mass/volume] in Serum or Plasma [2345-7] 11/23/2024 01:36 PM 248 mg/dL N Blood chemistry[[id number]] Glucose [Mass/volume] in Serum or Plasma [2345-7] 11/23/2024 10:46 AM 204 mg/dL N Blood chemistry[[id number]] Glucose [Mass/volume] in Serum or Plasma [2345-7] 11/23/2024 04:43 PM 288 mg/dL N Blood chemistry[[id number]] Glucose [Mass/volume] in Serum or Plasma [2345-7] 11/23/2024 12:05 PM 211 mg/dL N Blood chemistry[[id number]] Glucose [Mass/volume] in Serum or Plasma [2345-7] 11/17/2024 12:40 PM 272 mg/dL N Blood chemistry[[id number]] Glucose [Mass/volume] in Serum or Plasma [2345-7] 11/17/2024 09:21 AM 213 mg/dL N Blood chemistry[[id number]] Glucose [Mass/volume] in Serum or Plasma [2345-7] 11/17/2024 09:20 AM 167 mg/dL N Blood chemistry[] Glucose [Mass/volume] in Serum or Plasma [2345-7] 11/17/2024 01:13 PM 133 mg/dL N Blood chemistry[[id number]] Glucose [Mass/volume] in Serum or Plasma [2345-7] 11/16/2024 03:28 PM 285 mg/dL N Blood chemistry[[id number]] Glucose [Mass/volume] in Serum or Plasma [2345-7] 11/16/2024 05:13 PM 144 mg/dL N Blood chemistry[[id number]] Glucose [Mass/volume] in Serum or Plasma [2345-7] 11/16/2024 10:04 AM 189 mg/dL N Blood chemistry[[id number]] Glucose [Mass/volume] in Serum or Plasma [2345-7] 11/16/2024 01:24 PM 135 mg/dL N Blood chemistry[[id number]] Glucose [Mass/volume] in Serum or Plasma [2345-7] 11/15/2024 04:03 PM 102 mg/dL N Blood chemistry[[id number]] Glucose [Mass/volume] in Serum or Plasma [2345-7] 11/15/2024 02:41 PM 100 mg/dL N Blood chemistry[[id number]] Glucose [Mass/volume] in Serum or Plasma [2345-7] 11/15/2024 08:56 AM 177 mg/dL N Blood chemistry[[id number]] Glucose [Mass/volume] in Serum or Plasma [2345-7] 11/15/2024 12:36 PM 100 mg/dL N Blood chemistry[[id number]] Glucose [Mass/volume] in Serum or Plasma [2345-7] 11/14/2024 04:53 PM 212 mg/dL N Blood chemistry[[id number]] Glucose [Mass/volume] in Serum or Plasma [2345-7] 11/14/2024 10:44 AM 176 mg/dL N Blood chemistry[[id number]] Glucose [Mass/volume] in Serum or Plasma [2345-7] 11/14/2024 07:41 AM 165 mg/dL N Blood chemistry[[id number]] Glucose [Mass/volume] in Serum or Plasma [2345-7] 11/14/2024 10:04 AM 186 mg/dL N Blood chemistry[[id number]] Glucose [Mass/volume] in Serum or Plasma [2345-7] 11/13/2024 12:00 PM 305 mg/dL N Blood chemistry[[id number]] Glucose [Mass/volume] in Serum or Plasma [2345-7] 11/13/2024 04:40 PM 198 mg/dL N Blood chemistry[[id number]] Glucose [Mass/volume] in Serum or Plasma [2345-7] 11/13/2024 09:44 AM 156 mg/dL N Blood chemistry[[id number]] Glucose [Mass/volume] in Serum or Plasma [2345-7] 11/13/2024 02:31 PM 101 mg/dL N Blood chemistry[[id number]] Glucose [Mass/volume] in Serum or Plasma [2345-7] 11/13/2024 10:07 AM 91 mg/dL N Blood chemistry[[id number]] Glucose [Mass/volume] in Serum or Plasma [2345-7] 11/12/2024 11:33 AM 252 mg/dL N Blood chemistry[[id number]] Glucose [Mass/volume] in Serum or Plasma [2345-7] 11/12/2024 03:53 PM 156 mg/dL N Blood chemistry[[id number]] Glucose [Mass/volume] in Serum or Plasma [2345-7] 11/12/2024 09:49 AM 186 mg/dL N Blood chemistry[[id number]] Glucose [Mass/volume] in Serum or Plasma [2345-7] 11/12/2024 10:13 AM 144 mg/dL N Blood chemistry[[id number]] Glucose [Mass/volume] in Serum or Plasma [2345-7] 11/11/2024 11:00 AM 276 mg/dL N Blood chemistry[[id number]] Glucose [Mass/volume] in Serum or Plasma [2345-7] 11/11/2024 04:38 PM 178 mg/dL N Blood chemistry[[id number]] Glucose [Mass/volume] in Serum or Plasma [2345-7] 11/11/2024 09:28 AM 178 mg/dL N Blood chemistry[[id number]] Glucose [Mass/volume] in Serum or Plasma [2345-7] 11/11/2024 11:46 AM 101 mg/dL N Blood chemistry[[id number]] Glucose [Mass/volume] in Serum or Plasma [2345-7] 11/10/2024 12:48 PM 228 mg/dL N Blood chemistry[[id number]] Glucose [Mass/volume] in Serum or Plasma [2345-7] 11/10/2024 03:06 PM 101 mg/dL N Blood chemistry[[id number]] Glucose [Mass/volume] in Serum or Plasma [2345-7] 11/10/2024 09:17 AM 203 mg/dL N Blood chemistry[[id number]] Glucose [Mass/volume] in Serum or Plasma [2345-7] 11/10/2024 01:44 PM 217 mg/dL N Blood chemistry[[id number]] Glucose [Mass/volume] in Serum or Plasma [2345-7] 11/09/2024 12:36 PM 349 mg/dL N Blood chemistry[[id number]] Glucose [Mass/volume] in Serum or Plasma [2345-7] 11/09/2024 04:40 PM 178 mg/dL N Blood chemistry[[id number]] Glucose [Mass/volume] in Serum or Plasma [2345-7] 11/09/2024 10:05 AM 170 mg/dL N Blood chemistry[[id number]] Glucose [Mass/volume] in Serum or Plasma [2345-7] 11/09/2024 12:27 PM 185 mg/dL N Blood chemistry[[id number]] Glucose [Mass/volume] in Serum or Plasma [2345-7] 11/09/2024 12:19 PM 185 mg/dL N Blood chemistry[[id number]] Glucose [Mass/volume] in Serum or Plasma [2345-7] 11/08/2024 04:53 PM 180 mg/dL N Blood chemistry[[id number]] Glucose [Mass/volume] in Serum or Plasma [2345-7] 11/08/2024 05:02 PM 188 mg/dL N Blood chemistry[[id number]] Glucose [Mass/volume] in Serum or Plasma [2345-7] 11/08/2024 09:41 AM 199 mg/dL N Blood chemistry[[id number]] Glucose [Mass/volume] in Serum or Plasma [2345-7] 11/08/2024 12:07 PM 194 mg/dL N Blood chemistry[[id number]] Glucose [Mass/volume] in Serum or Plasma [2345-7] 11/07/2024 11:57 AM 246 mg/dL N Blood chemistry[[id number]] Glucose [Mass/volume] in Serum or Plasma [2345-7] 11/07/2024 05:10 PM 208 mg/dL N Blood chemistry[[id number]] Glucose [Mass/volume] in Serum or Plasma [2345-7] 11/07/2024 10:18 AM 174 mg/dL N Blood chemistry[[id number]] Glucose [Mass/volume] in Serum or Plasma [2345-7] 11/07/2024 10:09 AM 178 mg/dL N Blood chemistry[[id number]] Glucose [Mass/volume] in Serum or Plasma [2345-7] 11/06/2024 12:08 PM 295 mg/dL N Blood chemistry[[id number]] Glucose [Mass/volume] in Serum or Plasma [2345-7] 11/06/2024 05:19 PM 95 mg/dL N Blood chemistry[[id number]] Glucose [Mass/volume] in Serum or Plasma [2345-7] 11/06/2024 10:34 AM 132 mg/dL N Blood chemistry[[id number]] Glucose [Mass/volume] in Serum or Plasma [2345-7] 11/06/2024 10:10 AM 125 mg/dL N Blood chemistry[[id number]] Glucose [Mass/volume] in Serum or Plasma [2345-7] 11/05/2024 11:56 AM 225 mg/dL N Blood chemistry[[id number]] Glucose [Mass/volume] in Serum or Plasma [2345-7] 11/05/2024 05:52 PM 164 mg/dL N Blood chemistry[[id number]] Glucose [Mass/volume] in Serum or Plasma [2345-7] 11/05/2024 09:52 AM 155 mg/dL N Blood chemistry[[id number]] Glucose [Mass/volume] in Serum or Plasma [2345-7] 11/05/2024 12:18 PM 116 mg/dL N Blood chemistry[[id number]] Glucose [Mass/volume] in Serum or Plasma [2345-7] 11/05/2024 10:06 AM 154 mg/dL N Blood chemistry[[id number]] Glucose [Mass/volume] in Serum or Plasma [2345-7] 11/04/2024 11:39 AM 171 mg/dL N Blood chemistry[[id number]] Glucose [Mass/volume] in Serum or Plasma [2345-7] 11/04/2024 04:47 PM 162 mg/dL N Blood chemistry[[id number]] Glucose [Mass/volume] in Serum or Plasma [2345-7] 11/04/2024 10:17 AM 106 mg/dL N Blood chemistry[[id number]] Glucose [Mass/volume] in Serum or Plasma [2345-7] 11/04/2024 12:26 PM 72 mg/dL N Blood chemistry[[id number]] Glucose [Mass/volume] in Serum or Plasma [2345-7] 11/04/2024 10:21 AM 60 mg/dL N Blood chemistry[[id number]] Glucose [Mass/volume] in Serum or Plasma [2345-7] 11/03/2024 01:17 PM 336 mg/dL N Blood chemistry[[id number]] Glucose [Mass/volume] in Serum or Plasma [2345-7] 11/03/2024 03:34 PM 121 mg/dL N Glucose [Mass/volume] in Serum or Plasma [2345-7] 11/03/2024 03:34 PM 121 mg/dL N Blood chemistry[[id number]] Glucose [Mass/volume] in Serum or Plasma [2345-7] 11/03/2024 09:55 AM 184 mg/dL N Blood chemistry[[id number]] Glucose [Mass/volume] in Serum or Plasma [2345-7] 11/03/2024 12:34 PM 101 mg/dL N Blood chemistry[[id number]] Glucose [Mass/volume] in Serum or Plasma [2345-7] 11/03/2024 10:37 AM 136 mg/dL N Blood chemistry[[id number]] Glucose [Mass/volume] in Serum or Plasma [2345-7] 11/02/2024 12:31 PM 327 mg/dL N Blood chemistry[[id number]] Glucose [Mass/volume] in Serum or Plasma [2345-7] 11/02/2024 09:01 AM 141 mg/dL N Blood chemistry[[id number]] Glucose [Mass/volume] in Serum or Plasma [2345-7] 11/02/2024 10:12 AM 156 mg/dL N Blood chemistry[[id number]] Glucose [Mass/volume] in Serum or Plasma [2345-7] 11/01/2024 02:52 PM 255 mg/dL N Blood chemistry[[id number]] Glucose [Mass/volume] in Serum or Plasma [2345-7] 11/01/2024 04:18 PM 178 mg/dL N Blood chemistry[[id number]] Glucose [Mass/volume] in Serum or Plasma [2345-7] 11/01/2024 09:40 AM 199 mg/dL N Blood chemistry[[id number]] Glucose [Mass/volume] in Serum or Plasma [2345-7] 11/01/2024 11:27 AM 190 mg/dL N Blood chemistry[[id number]] Glucose [Mass/volume] in Serum or Plasma [2345-7] 11/01/2024 10:26 AM 155 mg/dL N Blood chemistry[[id number]] Glucose [Mass/volume] in Serum or Plasma [2345-7] 10/31/2024 12:31 PM 353 mg/dL N Blood chemistry[[id number]] Glucose [Mass/volume] in Serum or Plasma [2345-7] 10/31/2024 10:30 AM 306 mg/dL N Blood chemistry[[id number]] Glucose [Mass/volume] in Serum or Plasma [2345-7] 10/31/2024 06:52 AM 127 mg/dL N Blood chemistry[[id number]] Glucose [Mass/volume] in Serum or Plasma [2345-7] 10/31/2024 02:18 PM 144 mg/dL N Blood chemistry[[id number]] Glucose [Mass/volume] in Serum or Plasma [2345-7] 10/30/2024 12:30 PM 188 mg/dL N Blood chemistry[[id number]] Glucose [Mass/volume] in Serum or Plasma [2345-7] 10/30/2024 04:55 PM 200 mg/dL N Blood chemistry[[id number]] Glucose [Mass/volume] in Serum or Plasma [2345-7] 10/30/2024 09:55 AM 141 mg/dL N Blood chemistry[[id number]] Glucose [Mass/volume] in Serum or Plasma [2345-7] 10/30/2024 10:02 AM 102 mg/dL N Blood chemistry[[id number]] Glucose [Mass/volume] in Serum or Plasma [2345-7] 10/29/2024 11:41 AM 163 mg/dL N Blood chemistry[[id number]] Glucose [Mass/volume] in Serum or Plasma [2345-7] 10/29/2024 04:00 PM 78 mg/dL N Glucose [Mass/volume] in Serum or Plasma [2345-7] 10/29/2024 04:00 PM 78 mg/dL N Blood chemistry[[id number]] Glucose [Mass/volume] in Serum or Plasma [2345-7] 10/29/2024 09:47 AM 100 mg/dL N Blood chemistry[[id number]] Glucose [Mass/volume] in Serum or Plasma [2345-7] 10/29/2024 10:28 AM 71 mg/dL N Blood chemistry[[id number]] Glucose [Mass/volume] in Serum or Plasma [2345-7] 10/28/2024 11:54 AM 302 mg/dL N Blood chemistry[[id number]] Glucose [Mass/volume] in Serum or Plasma [2345-7] 10/28/2024 04:10 PM 164 mg/dL N Glucose [Mass/volume] in Serum or Plasma [2345-7] 10/28/2024 04:10 PM 164 mg/dL N Blood chemistry[[id number]] Glucose [Mass/volume] in Serum or Plasma [2345-7] 10/28/2024 09:37 AM 164 mg/dL N Blood chemistry[[id number]] Glucose [Mass/volume] in Serum or Plasma [2345-7] 10/28/2024 06:14 AM 110 mg/dL N Blood chemistry[[id number]] Glucose [Mass/volume] in Serum or Plasma [2345-7] 10/28/2024 11:55 AM 59 mg/dL N Blood chemistry[[id number]] Glucose [Mass/volume] in Serum or Plasma [2345-7] 10/27/2024 12:39 PM 192 mg/dL N Blood chemistry[[id number]] Glucose [Mass/volume] in Serum or Plasma [2345-7] 10/27/2024 03:27 PM 99 mg/dL N Blood chemistry[[id number]] Glucose [Mass/volume] in Serum or Plasma [2345-7] 10/27/2024 09:34 AM 108 mg/dL N Blood chemistry[[id number]] Glucose [Mass/volume] in Serum or Plasma [2345-7] 10/27/2024 11:55 AM 98 mg/dL N Blood chemistry[[id number]] Glucose [Mass/volume] in Serum or Plasma [2345-7] 10/26/2024 01:24 PM 214 mg/dL N Blood chemistry[[id number]] Glucose [Mass/volume] in Serum or Plasma [2345-7] 10/26/2024 03:58 PM 174 mg/dL N Blood chemistry[[id number]] Glucose [Mass/volume] in Serum or Plasma [2345-7] 10/26/2024 09:37 AM 89 mg/dL N Blood chemistry[[id number]] Glucose [Mass/volume] in Serum or Plasma [2345-7] 10/26/2024 09:33 AM 89 mg/dL N Blood chemistry[[id number]] Glucose [Mass/volume] in Serum or Plasma [2345-7] 10/26/2024 10:16 AM 107 mg/dL N Blood chemistry[[id number]] Glucose [Mass/volume] in Serum or Plasma [2345-7] 10/25/2024 11:38 AM 229 mg/dL N Blood chemistry[[id number]] Glucose [Mass/volume] in Serum or Plasma [2345-7] 10/25/2024 04:19 PM 90 mg/dL N Blood chemistry[[id number]] Glucose [Mass/volume] in Serum or Plasma [2345-7] 10/25/2024 08:41 AM 158 mg/dL N Blood chemistry[[id number]] Glucose [Mass/volume] in Serum or Plasma [2345-7] 10/25/2024 12:19 PM 73 mg/dL N Blood chemistry[[id number]] Glucose [Mass/volume] in Serum or Plasma [2345-7] 10/25/2024 10:16 AM 171 mg/dL N Blood chemistry[[id number]] Glucose [Mass/volume] in Serum or Plasma [2345-7] 10/24/2024 12:27 PM 261 mg/dL N Blood chemistry[[id number]] Glucose [Mass/volume] in Serum or Plasma [2345-7] 10/24/2024 05:16 PM 140 mg/dL N Blood chemistry[[id number]] Glucose [Mass/volume] in Serum or Plasma [2345-7] 10/24/2024 09:30 AM 193 mg/dL N Blood chemistry[[id number]] Glucose [Mass/volume] in Serum or Plasma [2345-7] 10/24/2024 11:26 AM 165 mg/dL N Blood chemistry[[id number]] Glucose [Mass/volume] in Serum or Plasma [2345-7] 10/24/2024 10:07 AM 165 mg/dL N Blood chemistry[[id number]] Glucose [Mass/volume] in Serum or Plasma [2345-7] 10/23/2024 11:40 AM 262 mg/dL N Blood chemistry[[id number]] Glucose [Mass/volume] in Serum or Plasma [2345-7] 10/23/2024 04:13 PM 190 mg/dL N Glucose [Mass/volume] in Serum or Plasma [5-7] 10/23/2024 04:13 PM 190 mg/dL N Blood chemistry[[id number]] Glucose [Mass/volume] in Serum or Plasma [2345-7] 10/23/2024 08:51 AM 178 mg/dL N Glucose [Mass/volume] in Serum or Plasma [2345-7] 10/23/2024 08:51 AM 178 mg/dL N Blood chemistry[[id number]] Glucose [Mass/volume] in Serum or Plasma [2345-7] 10/23/2024 11:05 AM 112 mg/dL N Blood chemistry[[id number]] Glucose [Mass/volume] in Serum or Plasma [2345-7] 10/23/2024 11:01 AM 112 mg/dL N Blood chemistry[[id number]] Glucose [Mass/volume] in Serum or Plasma [2345-7] 10/22/2024 11:27 AM 211 mg/dL N Blood chemistry[[id number]] Glucose [Mass/volume] in Serum or Plasma [2345-7] 10/22/2024 03:51 PM 129 mg/dL N Glucose [Mass/volume] in Serum or Plasma [2345-7] 10/22/2024 03:51 PM 129 mg/dL N Blood chemistry[[id number]] Glucose [Mass/volume] in Serum or Plasma [2345-7] 10/22/2024 08:22 AM 174 mg/dL N Blood chemistry[[id number]] Glucose [Mass/volume] in Serum or Plasma [2345-7] 10/22/2024 08:19 AM 174 mg/dL N Blood chemistry[[id number]] Glucose [Mass/volume] in Serum or Plasma [2345-7] 10/22/2024 11:29 AM 85 mg/dL N Blood chemistry[[id number]] Glucose [Mass/volume] in Serum or Plasma [2345-7] 10/22/2024 10:14 AM 102 mg/dL N Blood chemistry[[id number]] Glucose [Mass/volume] in Serum or Plasma [2345-7] 10/21/2024 12:02 PM 187 mg/dL N Blood chemistry[[id number]] Glucose [Mass/volume] in Serum or Plasma [2345-7] 10/21/2024 05:15 PM 88 mg/dL N Blood chemistry[[id number]] Glucose [Mass/volume] in Serum or Plasma [2345-7] 10/21/2024 10:35 AM 88 mg/dL N Blood chemistry[[id number]] Glucose [Mass/volume] in Serum or Plasma [2345-7] 10/21/2024 12:14 PM 78 mg/dL N Blood chemistry[[id number]] Glucose [Mass/volume] in Serum or Plasma [2345-7] 10/20/2024 11:46 AM 283 mg/dL N Blood chemistry[[id number]] Glucose [Mass/volume] in Serum or Plasma [2345-7] 10/20/2024 04:05 PM 112 mg/dL N Blood chemistry[[id number]] Glucose [Mass/volume] in Serum or Plasma [2345-7] 10/20/2024 09:38 AM 127 mg/dL N Blood chemistry[[id number]] Glucose [Mass/volume] in Serum or Plasma [2345-7] 10/20/2024 10:18 AM 72 mg/dL N Blood chemistry[[id number]] Glucose [Mass/volume] in Serum or Plasma [2345-7] 10/19/2024 12:35 PM 223 mg/dL N Blood chemistry[[id number]] Glucose [Mass/volume] in Serum or Plasma [2345-7] 10/19/2024 04:57 PM 95 mg/dL N Blood chemistry[[id number]] Glucose [Mass/volume] in Serum or Plasma [2345-7] 10/19/2024 10:14 AM 88 mg/dL N Blood chemistry[[id number]] Glucose [Mass/volume] in Serum or Plasma [2345-7] 10/19/2024 12:40 PM 128 mg/dL N Blood chemistry[[id number]] Glucose [Mass/volume] in Serum or Plasma [2345-7] 10/18/2024 12:24 PM 243 mg/dL N Blood chemistry[[id number]] Glucose [Mass/volume] in Serum or Plasma [2345-7] 10/18/2024 03:43 PM 200 mg/dL N Blood chemistry[[id number]] Glucose [Mass/volume] in Serum or Plasma [2345-7] 10/18/2024 08:32 AM 173 mg/dL N Blood chemistry[[id number]] Glucose [Mass/volume] in Serum or Plasma [2345-7] 10/18/2024 11:54 AM 108 mg/dL N Blood chemistry[[id number]] Glucose [Mass/volume] in Serum or Plasma [2345-7] 10/18/2024 10:51 AM 72 mg/dL N Blood chemistry[[id number]] Glucose [Mass/volume] in Serum or Plasma [2345-7] 10/17/2024 01:05 PM 307 mg/dL N Blood chemistry[[id number]] Glucose [Mass/volume] in Serum or Plasma [2345-7] 10/17/2024 05:57 PM 107 mg/dL N Blood chemistry[[id number]] Glucose [Mass/volume] in Serum or Plasma [2345-7] 10/17/2024 10:11 AM 135 mg/dL N Blood chemistry[[id number]] Glucose [Mass/volume] in Serum or Plasma [2345-7] 10/17/2024 08:21 AM 107 mg/dL N Blood chemistry[[id number]] Glucose [Mass/volume] in Serum or Plasma [2345-7] 10/17/2024 12:14 PM 159 mg/dL N Blood chemistry[[id number]] Glucose [Mass/volume] in Serum or Plasma [2345-7] 10/16/2024 12:55 PM 195 mg/dL N Blood chemistry[[id number]] Glucose [Mass/volume] in Serum or Plasma [2345-7] 10/16/2024 04:39 PM 144 mg/dL N Blood chemistry[[id number]] Glucose [Mass/volume] in Serum or Plasma [2345-7] 10/16/2024 10:04 AM 203 mg/dL N Blood chemistry[[id number]] Glucose [Mass/volume] in Serum or Plasma [2345-7] 10/16/2024 10:02 AM 98 mg/dL N Blood chemistry[[id number]] Glucose [Mass/volume] in Serum or Plasma [2345-7] 10/15/2024 11:33 AM 286 mg/dL N Blood chemistry[[id number]] Glucose [Mass/volume] in Serum or Plasma [2345-7] 10/15/2024 04:44 PM 236 mg/dL N Blood chemistry[[id number]] Glucose [Mass/volume] in Serum or Plasma [2345-7] 10/15/2024 09:26 AM 216 mg/dL N Blood chemistry[[id number]] Glucose [Mass/volume] in Serum or Plasma [2345-7] 10/15/2024 01:17 PM 191 mg/dL N Blood chemistry[[id number]] Glucose [Mass/volume] in Serum or Plasma [2345-7] 10/15/2024 10:18 AM 131 mg/dL N Blood chemistry[[id number]] Glucose [Mass/volume] in Serum or Plasma [2345-7] 10/14/2024 11:39 AM 216 mg/dL N Blood chemistry[[id number]] Glucose [Mass/volume] in Serum or Plasma [2345-7] 10/14/2024 09:38 AM 155 mg/dL N Blood chemistry[[id number]] Glucose [Mass/volume] in Serum or Plasma [2345-7] 10/14/2024 06:34 AM 279 mg/dL N Blood chemistry[[id number]] Glucose [Mass/volume] in Serum or Plasma [2345-7] 10/13/2024 05:55 PM 134 mg/dL N Blood chemistry[[id number]] Glucose [Mass/volume] in Serum or Plasma [2345-7] 10/13/2024 02:20 PM 154 mg/dL N Blood chemistry[[id number]] Glucose [Mass/volume] in Serum or Plasma [2345-7] 10/13/2024 09:45 AM 154 mg/dL N Blood chemistry[[id number]] Glucose [Mass/volume] in Serum or Plasma [2345-7] 10/13/2024 09:54 AM 115 mg/dL N Blood chemistry[[id number]] Glucose [Mass/volume] in Serum or Plasma [2345-7] 10/12/2024 12:29 PM 245 mg/dL N Blood chemistry[[id number]] Glucose [Mass/volume] in Serum or Plasma [2345-7] 10/12/2024 09:05 AM 109 mg/dL N Blood chemistry[[id number]] Glucose [Mass/volume] in Serum or Plasma [2345-7] 10/12/2024 08:56 AM 109 mg/dL N Blood chemistry[[id number]] Glucose [Mass/volume] in Serum or Plasma [2345-7] 10/12/2024 03:18 PM 107 mg/dL N Blood chemistry[[id number]] Glucose [Mass/volume] in Serum or Plasma [2345-7] 10/12/2024 03:16 PM 107 mg/dL N Blood chemistry[[id number]] Glucose [Mass/volume] in Serum or Plasma [2345-7] 10/12/2024 11:57 AM 90 mg/dL N Blood chemistry[[id number]] Glucose [Mass/volume] in Serum or Plasma [2345-7] 10/12/2024 10:32 AM 99 mg/dL N Blood chemistry[[id number]] Glucose [Mass/volume] in Serum or Plasma [2345-7] 10/11/2024 05:12 PM 137 mg/dL N Blood chemistry[[id number]] Glucose [Mass/volume] in Serum or Plasma [2345-7] 10/11/2024 04:20 PM 200 mg/dL N Blood chemistry[[id number]] Glucose [Mass/volume] in Serum or Plasma [2345-7] 10/11/2024 01:22 PM 222 mg/dL N Blood chemistry[[id number]] Glucose [Mass/volume] in Serum or Plasma [2345-7] 10/11/2024 10:34 AM 85 mg/dL N Blood chemistry[[id number]] Glucose [Mass/volume] in Serum or Plasma [2345-7] 10/11/2024 11:10 AM 119 mg/dL N Blood chemistry[[id number]] Glucose [Mass/volume] in Serum or Plasma [2345-7] 10/10/2024 01:41 PM 236 mg/dL N Blood chemistry[[id number]] Glucose [Mass/volume] in Serum or Plasma [2345-7] 10/10/2024 10:04 AM 170 mg/dL N Blood chemistry[[id number]] Glucose [Mass/volume] in Serum or Plasma [2345-7] 10/10/2024 05:59 PM 125 mg/dL N Blood chemistry[[id number]] Glucose [Mass/volume] in Serum or Plasma [2345-7] 10/10/2024 02:01 PM 132 mg/dL N Blood chemistry[[id number]] Glucose [Mass/volume] in Serum or Plasma [2345-7] 10/10/2024 11:15 AM 157 mg/dL N Blood chemistry[[id number]] Glucose [Mass/volume] in Serum or Plasma [2345-7] 10/09/2024 12:45 PM 337 mg/dL N Blood chemistry[[id number]] Glucose [Mass/volume] in Serum or Plasma [2345-7] 10/09/2024 11:22 AM 167 mg/dL N Blood chemistry[[id number]] Glucose [Mass/volume] in Serum or Plasma [2345-7] 10/09/2024 02:57 PM 142 mg/dL N Blood chemistry[[id number]] Glucose [Mass/volume] in Serum or Plasma [2345-7] 10/09/2024 11:11 AM 142 mg/dL N Blood chemistry[[id number]] Glucose [Mass/volume] in Serum or Plasma [2345-7] 10/09/2024 07:23 AM 123 mg/dL N Blood chemistry[[id number]] Glucose [Mass/volume] in Serum or Plasma [2345-7] 10/08/2024 12:39 PM 219 mg/dL N Blood chemistry[[id number]] Glucose [Mass/volume] in Serum or Plasma [2345-7] 10/08/2024 10:04 AM 259 mg/dL N Blood chemistry[[id number]] Glucose [Mass/volume] in Serum or Plasma [2345-7] 10/08/2024 05:29 PM 109 mg/dL N Glucose [Mass/volume] in Serum or Plasma [2345-7] 10/08/2024 05:29 PM 109 mg/dL N Blood chemistry[[id number]] Glucose [Mass/volume] in Serum or Plasma [2345-7] 10/08/2024 11:19 AM 105 mg/dL N Blood chemistry[[id number]] Glucose [Mass/volume] in Serum or Plasma [2345-7] 10/07/2024 12:39 PM 188 mg/dL N Blood chemistry[[id number]] Glucose [Mass/volume] in Serum or Plasma [2345-7] 10/07/2024 11:24 AM 169 mg/dL N Blood chemistry[[id number]] Glucose [Mass/volume] in Serum or Plasma [2345-7] 10/07/2024 06:16 PM 96 mg/dL N Blood chemistry[[id number]] Glucose [Mass/volume] in Serum or Plasma [2345-7] 10/07/2024 01:49 PM 65 mg/dL N Blood chemistry[[id number]] Glucose [Mass/volume] in Serum or Plasma [2345-7] 10/06/2024 06:12 PM 91 mg/dL N Blood chemistry[[id number]] Glucose [Mass/volume] in Serum or Plasma [2345-7] 10/06/2024 01:00 PM 75 mg/dL N Blood chemistry[[id number]] Glucose [Mass/volume] in Serum or Plasma [2345-7] 10/06/2024 12:46 PM 270 mg/dL N Blood chemistry[[id number]] Glucose [Mass/volume] in Serum or Plasma [2345-7] 10/06/2024 09:59 AM 148 mg/dL N Blood chemistry[[id number]] Glucose [Mass/volume] in Serum or Plasma [2345-7] 10/06/2024 11:02 AM 68 mg/dL N Blood chemistry[[id number]] Glucose [Mass/volume] in Serum or Plasma [2345-7] 10/05/2024 01:45 PM 223 mg/dL N Blood chemistry[[id number]] Glucose [Mass/volume] in Serum or Plasma [2345-7] 10/05/2024 10:53 AM 189 mg/dL N Blood chemistry[[id number]] Glucose [Mass/volume] in Serum or Plasma [2345-7] 10/05/2024 06:12 PM 150 mg/dL N Blood chemistry[[id number]] Glucose [Mass/volume] in Serum or Plasma [2345-7] 10/05/2024 11:18 AM 100 mg/dL N Blood chemistry[[id number]] Glucose [Mass/volume] in Serum or Plasma [2345-7] 10/04/2024 03:19 PM 362 mg/dL N Blood chemistry[[id number]] Glucose [Mass/volume] in Serum or Plasma [2345-7] 10/04/2024 10:26 AM 279 mg/dL N Blood chemistry[[id number]] Glucose [Mass/volume] in Serum or Plasma [2345-7] 10/04/2024 04:28 PM 208 mg/dL N Blood chemistry[[id number]] Glucose [Mass/volume] in Serum or Plasma [2345-7] 10/04/2024 11:39 AM 190 mg/dL N Blood chemistry[[id number]] Glucose [Mass/volume] in Serum or Plasma [2345-7] 10/03/2024 02:21 PM 274 mg/dL N Blood chemistry[[id number]] Glucose [Mass/volume] in Serum or Plasma [2345-7] 10/03/2024 02:06 PM 140 mg/dL N Blood chemistry[[id number]] Glucose [Mass/volume] in Serum or Plasma [2345-7] 10/03/2024 10:57 AM 221 mg/dL N Blood chemistry[[id number]] Glucose [Mass/volume] in Serum or Plasma [2345-7] 10/03/2024 09:44 AM 137 mg/dL N Blood chemistry[[id number]] Glucose [Mass/volume] in Serum or Plasma [2345-7] 10/02/2024 03:03 PM 285 mg/dL N Blood chemistry[[id number]] Glucose [Mass/volume] in Serum or Plasma [2345-7] 10/02/2024 11:31 AM 143 mg/dL N Blood chemistry[[id number]] Glucose [Mass/volume] in Serum or Plasma [2345-7] 10/02/2024 06:34 PM 217 mg/dL N Blood chemistry[[id number]] Glucose [Mass/volume] in Serum or Plasma [2345-7] 10/02/2024 01:55 PM 220 mg/dL N Blood chemistry[[id number]] Glucose [Mass/volume] in Serum or Plasma [2345-7] 10/01/2024 06:07 PM 171 mg/dL N Blood chemistry[[id number]] Glucose [Mass/volume] in Serum or Plasma [2345-7] 10/01/2024 12:58 PM 145 mg/dL N Blood chemistry[[id number]] Glucose [Mass/volume] in Serum or Plasma [2345-7] 10/01/2024 12:39 PM 259 mg/dL N Blood chemistry[[id number]] Glucose [Mass/volume] in Serum or Plasma [2345-7] 10/01/2024 11:09 AM 134 mg/dL N Blood chemistry[[id number]] Glucose [Mass/volume] in Serum or Plasma [2345-7] 10/01/2024 11:01 AM 145 mg/dL N Blood chemistry[[id number]] Glucose [Mass/volume] in Serum or Plasma [2345-7] 09/30/2024 12:51 PM 355 mg/dL N Blood chemistry[[id number]] Glucose [Mass/volume] in Serum or Plasma [2345-7] 09/30/2024 11:41 AM 169 mg/dL N Blood chemistry[[id number]] Glucose [Mass/volume] in Serum or Plasma [2345-7] 09/30/2024 02:42 PM 157 mg/dL N Blood chemistry[[id number]] Glucose [Mass/volume] in Serum or Plasma [2345-7] 09/30/2024 07:08 AM 146 mg/dL N Blood chemistry[[id number]] Glucose [Mass/volume] in Serum or Plasma [2345-7] 09/29/2024 04:24 PM 145 mg/dL N Blood chemistry[[id number]] Glucose [Mass/volume] in Serum or Plasma [2345-7] 09/29/2024 03:01 PM 83 mg/dL N Blood chemistry[[id number]] Glucose [Mass/volume] in Serum or Plasma [2345-7] 09/29/2024 12:58 PM 434 mg/dL N Blood chemistry[[id number]] Glucose [Mass/volume] in Serum or Plasma [2345-7] 09/29/2024 11:28 AM 79 mg/dL N Blood chemistry[[id number]] Glucose [Mass/volume] in Serum or Plasma [2345-7] 09/29/2024 10:21 AM 147 mg/dL N Blood chemistry[[id number]] Glucose [Mass/volume] in Serum or Plasma [2345-7] 09/28/2024 01:19 PM 327 mg/dL N Blood chemistry[[id number]] Glucose [Mass/volume] in Serum or Plasma [2345-7] 09/28/2024 10:52 AM 199 mg/dL N Blood chemistry[[id number]] Glucose [Mass/volume] in Serum or Plasma [2345-7] 09/28/2024 06:39 PM 86 mg/dL N Blood chemistry[[id number]] Glucose [Mass/volume] in Serum or Plasma [2345-7] 09/28/2024 01:31 PM 78 mg/dL N Blood chemistry[[id number]] Glucose [Mass/volume] in Serum or Plasma [2345-7] 09/28/2024 11:04 AM 47 mg/dL N Blood chemistry[[id number]] Glucose [Mass/volume] in Serum or Plasma [2345-7] 09/27/2024 06:45 PM 146 mg/dL N Blood chemistry[[id number]] Glucose [Mass/volume] in Serum or Plasma [2345-7] 09/27/2024 06:42 PM 146 mg/dL N Glucose [Mass/volume] in Serum or Plasma [2345-7] 09/27/2024 06:42 PM 75 mg/dL N Blood chemistry[[id number]] Glucose [Mass/volume] in Serum or Plasma [2345-7] 09/27/2024 01:26 PM 406 mg/dL N Blood chemistry[[id number]] Glucose [Mass/volume] in Serum or Plasma [2345-7] 09/27/2024 11:15 AM 112 mg/dL N Blood chemistry[[id number]] Glucose [Mass/volume] in Serum or Plasma [2345-7] 09/26/2024 02:03 PM 243 mg/dL N Blood chemistry[[id number]] Glucose [Mass/volume] in Serum or Plasma [2345-7] 09/26/2024 11:28 AM 261 mg/dL N Blood chemistry[[id number]] Glucose [Mass/volume] in Serum or Plasma [2345-7] 09/26/2024 06:16 PM 195 mg/dL N Blood chemistry[[id number]] Glucose [Mass/volume] in Serum or Plasma [2345-7] 09/26/2024 01:14 PM 116 mg/dL N Blood chemistry[[id number]] Glucose [Mass/volume] in Serum or Plasma [2345-7] 09/26/2024 01:09 PM 116 mg/dL N Blood chemistry[[id number]] Glucose [Mass/volume] in Serum or Plasma [2345-7] 09/25/2024 12:28 PM 203 mg/dL N Blood chemistry[[id number]] Glucose [Mass/volume] in Serum or Plasma [2345-7] 09/25/2024 05:51 PM 158 mg/dL N Blood chemistry[[id number]] Glucose [Mass/volume] in Serum or Plasma [2345-7] 09/25/2024 01:11 PM 107 mg/dL N Blood chemistry[[id number]] Glucose [Mass/volume] in Serum or Plasma [2345-7] 09/24/2024 01:18 PM 306 mg/dL N Blood chemistry[[id number]] Glucose [Mass/volume] in Serum or Plasma [2345-7] 09/24/2024 12:03 PM 176 mg/dL N Blood chemistry[[id number]] Glucose [Mass/volume] in Serum or Plasma [2345-7] 09/24/2024 05:29 PM 189 mg/dL N Blood chemistry[[id number]] Glucose [Mass/volume] in Serum or Plasma [2345-7] 09/24/2024 02:02 PM 98 mg/dL N Blood chemistry[[id number]] Glucose [Mass/volume] in Serum or Plasma [2345-7] 09/23/2024 01:03 PM 231 mg/dL N Blood chemistry[[id number]] Glucose [Mass/volume] in Serum or Plasma [2345-7] 09/23/2024 09:30 AM 247 mg/dL N Blood chemistry[[id number]] Glucose [Mass/volume] in Serum or Plasma [2345-7] 09/23/2024 09:29 AM 247 mg/dL N Blood chemistry[[id number]] Glucose [Mass/volume] in Serum or Plasma [2345-7] 09/23/2024 01:20 PM 57 mg/dL N Blood chemistry[[id number]] Glucose [Mass/volume] in Serum or Plasma [2345-7] 09/23/2024 07:47 AM 93 mg/dL N Blood chemistry[[id number]] Glucose [Mass/volume] in Serum or Plasma [2345-7] 09/22/2024 06:14 PM 94 mg/dL N Blood chemistry[[id number]] Glucose [Mass/volume] in Serum or Plasma [2345-7] 09/22/2024 01:44 PM 166 mg/dL N Blood chemistry[[id number]] Glucose [Mass/volume] in Serum or Plasma [2345-7] 09/22/2024 01:38 PM 110 mg/dL N Blood chemistry[[id number]] Glucose [Mass/volume] in Serum or Plasma [2345-7] 09/22/2024 10:25 AM 81 mg/dL N Blood chemistry[[id number]] Glucose [Mass/volume] in Serum or Plasma [2345-7] 09/21/2024 01:43 PM 183 mg/dL N Blood chemistry[[id number]] Glucose [Mass/volume] in Serum or Plasma [2345-7] 09/21/2024 11:46 AM 99 mg/dL N Blood chemistry[[id number]] Glucose [Mass/volume] in Serum or Plasma [2345-7] 09/21/2024 02:25 PM 105 mg/dL N Blood chemistry[[id number]] Glucose [Mass/volume] in Serum or Plasma [2345-7] 09/21/2024 11:45 AM 134 mg/dL N Blood chemistry[[id number]] Glucose [Mass/volume] in Serum or Plasma [2345-7] 09/21/2024 08:27 AM 85 mg/dL N Blood chemistry[[id number]] Glucose [Mass/volume] in Serum or Plasma [2345-7] 09/20/2024 05:22 PM 94 mg/dL N Blood chemistry[[id number]] Glucose [Mass/volume] in Serum or Plasma [2345-7] 09/20/2024 01:35 PM 217 mg/dL N Blood chemistry[[id number]] Glucose [Mass/volume] in Serum or Plasma [2345-7] 09/20/2024 01:08 PM 87 mg/dL N Blood chemistry[[id number]] Glucose [Mass/volume] in Serum or Plasma [2345-7] 09/20/2024 11:27 AM 114 mg/dL N Blood chemistry[[id number]] Glucose [Mass/volume] in Serum or Plasma [2345-7] 09/19/2024 02:27 PM 200 mg/dL N Blood chemistry[[id number]] Glucose [Mass/volume] in Serum or Plasma [2345-7] 09/19/2024 11:01 AM 145 mg/dL N Blood chemistry[[id number]] Glucose [Mass/volume] in Serum or Plasma [2345-7] 09/19/2024 05:57 PM 137 mg/dL N Blood chemistry[[id number]] Glucose [Mass/volume] in Serum or Plasma [2345-7] 09/19/2024 02:26 PM 104 mg/dL N Blood chemistry[[id number]] Glucose [Mass/volume] in Serum or Plasma [2345-7] 09/18/2024 05:10 PM 155 mg/dL N Blood chemistry[[id number]] Glucose [Mass/volume] in Serum or Plasma [2345-7] 09/18/2024 02:29 PM 81 mg/dL N Blood chemistry[[id number]] Glucose [Mass/volume] in Serum or Plasma [2345-7] 09/18/2024 01:54 PM 297 mg/dL N Blood chemistry[[id number]] Glucose [Mass/volume] in Serum or Plasma [2345-7] 09/18/2024 11:33 AM 157 mg/dL N Blood chemistry[[id number]] Glucose [Mass/volume] in Serum or Plasma [2345-7] 09/17/2024 05:00 PM 134 mg/dL N Blood chemistry[[id number]] Glucose [Mass/volume] in Serum or Plasma [2345-7] 09/17/2024 02:52 PM 141 mg/dL N Blood chemistry[[id number]] Glucose [Mass/volume] in Serum or Plasma [2345-7] 09/17/2024 12:43 PM 351 mg/dL N Blood chemistry[[id number]] Glucose [Mass/volume] in Serum or Plasma [2345-7] 09/17/2024 11:06 AM 114 mg/dL N Blood chemistry[[id number]] Glucose [Mass/volume] in Serum or Plasma [2345-7] 09/17/2024 11:00 AM 179 mg/dL N Blood chemistry[[id number]] Glucose [Mass/volume] in Serum or Plasma [2345-7] 09/16/2024 06:00 PM 155 mg/dL N Blood chemistry[[id number]] Glucose [Mass/volume] in Serum or Plasma [2345-7] 09/16/2024 01:10 PM 102 mg/dL N Blood chemistry[[id number]] Glucose [Mass/volume] in Serum or Plasma [2345-7] 09/16/2024 01:09 PM 102 mg/dL N Blood chemistry[[id number]] Glucose [Mass/volume] in Serum or Plasma [2345-7] 09/16/2024 12:33 PM 208 mg/dL N Blood chemistry[[id number]] Glucose [Mass/volume] in Serum or Plasma [2345-7] 09/16/2024 10:37 AM 143 mg/dL N Blood chemistry[[id number]] Glucose [Mass/volume] in Serum or Plasma [2345-7] 09/15/2024 02:23 PM 229 mg/dL N Blood chemistry[[id number]] Glucose [Mass/volume] in Serum or Plasma [2345-7] 09/15/2024 06:15 PM 119 mg/dL N Blood chemistry[[id number]] Glucose [Mass/volume] in Serum or Plasma [2345-7] 09/15/2024 12:43 PM 66 mg/dL N Blood chemistry[[id number]] Glucose [Mass/volume] in Serum or Plasma [2345-7] 09/15/2024 10:38 AM 133 mg/dL N Blood chemistry[[id number]] Glucose [Mass/volume] in Serum or Plasma [2345-7] 09/14/2024 05:59 PM 126 mg/dL N Blood chemistry[[id number]] Glucose [Mass/volume] in Serum or Plasma [2345-7] 09/14/2024 03:37 PM 81 mg/dL N Blood chemistry[[id number]] Glucose [Mass/volume] in Serum or Plasma [2345-7] 09/14/2024 01:44 PM 228 mg/dL N Blood chemistry[[id number]] Glucose [Mass/volume] in Serum or Plasma [2345-7] 09/14/2024 10:58 AM 148 mg/dL N Blood chemistry[[id number]] Glucose [Mass/volume] in Serum or Plasma [2345-7] 09/13/2024 02:31 PM 283 mg/dL N Blood chemistry[[id number]] Glucose [Mass/volume] in Serum or Plasma [2345-7] 09/13/2024 12:20 PM 141 mg/dL N Blood chemistry[[id number]] Glucose [Mass/volume] in Serum or Plasma [2345-7] 09/13/2024 06:38 PM 219 mg/dL N Blood chemistry[[id number]] Glucose [Mass/volume] in Serum or Plasma [2345-7] 09/13/2024 02:58 PM 76 mg/dL N Blood chemistry[[id number]] Glucose [Mass/volume] in Serum or Plasma [2345-7] 09/13/2024 11:24 AM 96 mg/dL N Blood chemistry[[id number]] Glucose [Mass/volume] in Serum or Plasma [2345-7] 09/12/2024 02:42 PM 238 mg/dL N Blood chemistry[[id number]] Glucose [Mass/volume] in Serum or Plasma [2345-7] 09/12/2024 06:52 PM 137 mg/dL N Blood chemistry[[id number]] Glucose [Mass/volume] in Serum or Plasma [2345-7] 09/12/2024 01:06 PM 173 mg/dL N Blood chemistry[[id number]] Glucose [Mass/volume] in Serum or Plasma [2345-7] 09/12/2024 11:22 AM 232 mg/dL N Blood chemistry[[id number]] Glucose [Mass/volume] in Serum or Plasma [2345-7] 09/12/2024 10:02 AM 202 mg/dL N Blood chemistry[[id number]] Glucose [Mass/volume] in Serum or Plasma [2345-7] 09/11/2024 12:51 PM 227 mg/dL N Blood chemistry[[id number]] Glucose [Mass/volume] in Serum or Plasma [2345-7] 09/11/2024 06:10 PM 128 mg/dL N Blood chemistry[[id number]] Glucose [Mass/volume] in Serum or Plasma [2345-7] 09/11/2024 02:05 PM 126 mg/dL N Blood chemistry[[id number]] Glucose [Mass/volume] in Serum or Plasma [2345-7] 09/11/2024 11:19 AM 144 mg/dL N Blood chemistry[[id number]] Glucose [Mass/volume] in Serum or Plasma [2345-7] 09/11/2024 11:04 AM 130 mg/dL N Blood chemistry[[id number]] Glucose [Mass/volume] in Serum or Plasma [2345-7] 09/10/2024 12:40 PM 180 mg/dL N Blood chemistry[[id number]] Glucose [Mass/volume] in Serum or Plasma [2345-7] 09/10/2024 06:11 PM 117 mg/dL N Blood chemistry[[id number]] Glucose [Mass/volume] in Serum or Plasma [2345-7] 09/10/2024 01:08 PM 118 mg/dL N Blood chemistry[[id number]] Glucose [Mass/volume] in Serum or Plasma [2345-7] 09/10/2024 11:15 AM 162 mg/dL N Blood chemistry[[id number]] Glucose [Mass/volume] in Serum or Plasma [2345-7] 09/10/2024 11:11 AM 113 mg/dL N Blood chemistry[[id number]] Glucose [Mass/volume] in Serum or Plasma [2345-7] 09/09/2024 12:56 PM 178 mg/dL N Blood chemistry[[id number]] Glucose [Mass/volume] in Serum or Plasma [2345-7] 09/09/2024 06:06 PM 87 mg/dL N Blood chemistry[[id number]] Glucose [Mass/volume] in Serum or Plasma [2345-7] 09/09/2024 01:40 PM 84 mg/dL N Blood chemistry[[id number]] Glucose [Mass/volume] in Serum or Plasma [2345-7] 09/09/2024 10:34 AM 119 mg/dL N Blood chemistry[[id number]] Glucose [Mass/volume] in Serum or Plasma [2345-7] 09/08/2024 06:07 PM 82 mg/dL N Blood chemistry[[id number]] Glucose [Mass/volume] in Serum or Plasma [2345-7] 09/08/2024 03:16 PM 51 mg/dL N Blood chemistry[[id number]] Glucose [Mass/volume] in Serum or Plasma [2345-7] 09/08/2024 02:12 PM 278 mg/dL N Blood chemistry[[id number]] Glucose [Mass/volume] in Serum or Plasma [2345-7] 09/08/2024 11:08 AM 121 mg/dL N Blood chemistry[[id number]] Glucose [Mass/volume] in Serum or Plasma [2345-7] 09/07/2024 02:10 PM 215 mg/dL N Blood chemistry[[id number]] Glucose [Mass/volume] in Serum or Plasma [2345-7] 09/07/2024 11:25 AM 170 mg/dL N Blood chemistry[[id number]] Glucose [Mass/volume] in Serum or Plasma [2345-7] 09/07/2024 06:12 PM 110 mg/dL N Blood chemistry[[id number]] Glucose [Mass/volume] in Serum or Plasma [2345-7] 09/07/2024 02:37 PM 75 mg/dL N Blood chemistry[[id number]] Glucose [Mass/volume] in Serum or Plasma [2345-7] 09/07/2024 02:35 PM 75 mg/dL N Blood chemistry[[id number]] Glucose [Mass/volume] in Serum or Plasma [2345-7] 09/06/2024 02:13 PM 262 mg/dL N Blood chemistry[[id number]] Glucose [Mass/volume] in Serum or Plasma [2345-7] 09/06/2024 10:36 AM 171 mg/dL N Blood chemistry[[id number]] Glucose [Mass/volume] in Serum or Plasma [2345-7] 09/06/2024 06:21 PM 200 mg/dL N Blood chemistry[[id number]] Glucose [Mass/volume] in Serum or Plasma [2345-7] 09/06/2024 02:59 PM 225 mg/dL N Blood chemistry[[id number]] Glucose [Mass/volume] in Serum or Plasma [2345-7] 09/05/2024 03:45 PM 201 mg/dL N Blood chemistry[[id number]] Glucose [Mass/volume] in Serum or Plasma [2345-7] 09/05/2024 12:33 PM 177 mg/dL N Blood chemistry[[id number]] Glucose [Mass/volume] in Serum or Plasma [2345-7] 09/05/2024 03:35 PM 131 mg/dL N Glucose [Mass/volume] in Serum or Plasma [2345-7] 09/05/2024 03:35 PM 131 mg/dL N Blood chemistry[[id number]] Glucose [Mass/volume] in Serum or Plasma [2345-7] 09/05/2024 07:10 AM 169 mg/dL N Blood chemistry[[id number]] Glucose [Mass/volume] in Serum or Plasma [2345-7] 09/04/2024 05:38 PM 185 mg/dL N Blood chemistry[[id number]] Glucose [Mass/volume] in Serum or Plasma [2345-7] 09/04/2024 03:07 PM 52 mg/dL N Blood chemistry[[id number]] Glucose [Mass/volume] in Serum or Plasma [2345-7] 09/04/2024 01:31 PM 52 mg/dL N Blood chemistry[[id number]] Glucose [Mass/volume] in Serum or Plasma [2345-7] 09/04/2024 11:09 AM 119 mg/dL N Blood chemistry[[id number]] Glucose [Mass/volume] in Serum or Plasma [2345-7] 09/04/2024 11:08 AM 62 mg/dL N Blood chemistry[[id number]] Glucose [Mass/volume] in Serum or Plasma [2345-7] 09/04/2024 11:07 AM 119 mg/dL N Glucose [Mass/volume] in Serum or Plasma [2345-7] 09/04/2024 11:07 AM 62 mg/dL N Blood chemistry[[id number]] Glucose [Mass/volume] in Serum or Plasma [2345-7] 09/03/2024 02:26 PM 210 mg/dL N Blood chemistry[[id number]] Glucose [Mass/volume] in Serum or Plasma [2345-7] 09/03/2024 05:05 PM 115 mg/dL N Blood chemistry[[id number]] Glucose [Mass/volume] in Serum or Plasma [2345-7] 09/03/2024 05:03 PM 57 mg/dL N Blood chemistry[[id number]] Glucose [Mass/volume] in Serum or Plasma [2345-7] 09/03/2024 12:26 PM 174 mg/dL N Blood chemistry[[id number]] Glucose [Mass/volume] in Serum or Plasma [2345-7] 09/03/2024 08:36 AM 115 mg/dL N Blood chemistry[[id number]] Glucose [Mass/volume] in Serum or Plasma [2345-7] 09/02/2024 01:01 PM 148 mg/dL N Blood chemistry[[id number]] Glucose [Mass/volume] in Serum or Plasma [2345-7] 09/02/2024 06:38 PM 201 mg/dL N Blood chemistry[[id number]] Glucose [Mass/volume] in Serum or Plasma [2345-7] 09/02/2024 12:36 PM 174 mg/dL N Blood chemistry[[id number]] Glucose [Mass/volume] in Serum or Plasma [2345-7] 09/02/2024 11:10 AM 87 mg/dL N Blood chemistry[[id number]] Glucose [Mass/volume] in Serum or Plasma [2345-7] 09/01/2024 01:27 PM 187 mg/dL N Blood chemistry[[id number]] Glucose [Mass/volume] in Serum or Plasma [2345-7] 09/01/2024 05:43 PM 86 mg/dL N Blood chemistry[[id number]] Glucose [Mass/volume] in Serum or Plasma [2345-7] 09/01/2024 01:06 PM 73 mg/dL N Blood chemistry[[id number]] Glucose [Mass/volume] in Serum or Plasma [2345-7] 09/01/2024 12:44 PM 268 mg/dL N Glucose [Mass/volume] in Serum or Plasma [2345-7] 09/01/2024 12:44 PM 268 mg/dL N Blood chemistry[[id number]] Glucose [Mass/volume] in Serum or Plasma [2345-7] 08/31/2024 05:32 PM 135 mg/dL N Glucose [Mass/volume] in Serum or Plasma [2345-7] 08/31/2024 05:32 PM 135 mg/dL N Blood chemistry[[id number]] Glucose [Mass/volume] in Serum or Plasma [2345-7] 08/31/2024 05:07 PM 67 mg/dL N Blood chemistry[[id number]] Glucose [Mass/volume] in Serum or Plasma [2345-7] 08/31/2024 03:04 PM 290 mg/dL N Blood chemistry[[id number]] Glucose [Mass/volume] in Serum or Plasma [2345-7] 08/31/2024 12:42 PM 133 mg/dL N Blood chemistry[[id number]] Glucose [Mass/volume] in Serum or Plasma [2345-7] 08/30/2024 02:23 PM 250 mg/dL N Blood chemistry[[id number]] Glucose [Mass/volume] in Serum or Plasma [2345-7] 08/30/2024 10:25 AM 117 mg/dL N Blood chemistry[[id number]] Glucose [Mass/volume] in Serum or Plasma [2345-7] 08/30/2024 04:59 PM 174 mg/dL N Blood chemistry[[id number]] Glucose [Mass/volume] in Serum or Plasma [2345-7] 08/30/2024 01:49 PM 127 mg/dL N Blood chemistry[[id number]] Glucose [Mass/volume] in Serum or Plasma [2345-7] 08/29/2024 03:00 PM 252 mg/dL N Blood chemistry[[id number]] Glucose [Mass/volume] in Serum or Plasma [2345-7] 08/29/2024 05:33 PM 232 mg/dL N Blood chemistry[[id number]] Glucose [Mass/volume] in Serum or Plasma [2345-7] 08/29/2024 05:07 PM 232 mg/dL N Blood chemistry[[id number]] Glucose [Mass/volume] in Serum or Plasma [2345-7] 08/29/2024 03:53 PM 78 mg/dL N Blood chemistry[[id number]] Glucose [Mass/volume] in Serum or Plasma [2345-7] 08/29/2024 11:08 AM 196 mg/dL N Blood chemistry[[id number]] Glucose [Mass/volume] in Serum or Plasma [2345-7] 08/29/2024 10:55 AM 258 mg/dL N Blood chemistry[[id number]] Glucose [Mass/volume] in Serum or Plasma [2345-7] 08/28/2024 01:12 PM 280 mg/dL N Blood chemistry[[id number]] Glucose [Mass/volume] in Serum or Plasma [2345-7] 08/28/2024 06:24 PM 206 mg/dL N Blood chemistry[[id number]] Glucose [Mass/volume] in Serum or Plasma [2345-7] 08/28/2024 03:51 PM 166 mg/dL N Blood chemistry[[id number]] Glucose [Mass/volume] in Serum or Plasma [2345-7] 08/28/2024 11:26 AM 109 mg/dL N Blood chemistry[[id number]] Glucose [Mass/volume] in Serum or Plasma [2345-7] 08/28/2024 11:15 AM 199 mg/dL N Blood chemistry[[id number]] Glucose [Mass/volume] in Serum or Plasma [2345-7] 08/27/2024 12:00 PM 217 mg/dL N Blood chemistry[[id number]] Glucose [Mass/volume] in Serum or Plasma [2345-7] 08/27/2024 06:10 PM 131 mg/dL N Blood chemistry[[id number]] Glucose [Mass/volume] in Serum or Plasma [2345-7] 08/27/2024 01:33 PM 133 mg/dL N Blood chemistry[[id number]] Glucose [Mass/volume] in Serum or Plasma [2345-7] 08/27/2024 11:09 AM 116 mg/dL N Blood chemistry[[id number]] Glucose [Mass/volume] in Serum or Plasma [2345-7] 08/27/2024 09:45 AM 185 mg/dL N Blood chemistry[[id number]] Glucose [Mass/volume] in Serum or Plasma [2345-7] 08/26/2024 12:48 PM 143 mg/dL N Blood chemistry[[id number]] Glucose [Mass/volume] in Serum or Plasma [2345-7] 08/26/2024 05:59 PM 101 mg/dL N Blood chemistry[[id number]] Glucose [Mass/volume] in Serum or Plasma [2345-7] 08/26/2024 01:15 PM 84 mg/dL N Blood chemistry[[id number]] Glucose [Mass/volume] in Serum or Plasma [2345-7] 08/26/2024 10:28 AM 207 mg/dL N Blood chemistry[[id number]] Glucose [Mass/volume] in Serum or Plasma [2345-7] 08/25/2024 05:32 PM 231 mg/dL N Blood chemistry[[id number]] Glucose [Mass/volume] in Serum or Plasma [2345-7] 08/25/2024 01:41 PM 104 mg/dL N Blood chemistry[[id number]] Glucose [Mass/volume] in Serum or Plasma [2345-7] 08/25/2024 01:35 PM 267 mg/dL N Blood chemistry[[id number]] Glucose [Mass/volume] in Serum or Plasma [2345-7] 08/25/2024 10:29 AM 296 mg/dL N Blood chemistry[[id number]] Glucose [Mass/volume] in Serum or Plasma [2345-7] 08/24/2024 01:08 PM 146 mg/dL N Blood chemistry[[id number]] Glucose [Mass/volume] in Serum or Plasma [2345-7] 08/24/2024 11:26 AM 92 mg/dL N Blood chemistry[[id number]] Glucose [Mass/volume] in Serum or Plasma [2345-7] 08/24/2024 06:10 PM 99 mg/dL N Blood chemistry[[id number]] Glucose [Mass/volume] in Serum or Plasma [2345-7] 08/24/2024 02:15 PM 52 mg/dL N Blood chemistry[[id number]] Glucose [Mass/volume] in Serum or Plasma [2345-7] 08/23/2024 05:20 PM 113 mg/dL N Blood chemistry[[id number]] Glucose [Mass/volume] in Serum or Plasma [2345-7] 08/23/2024 02:26 PM 121 mg/dL N Blood chemistry[[id number]] Glucose [Mass/volume] in Serum or Plasma [2345-7] 08/23/2024 02:16 PM 58 mg/dL N Blood chemistry[[id number]] Glucose [Mass/volume] in Serum or Plasma [2345-7] 08/23/2024 11:34 AM 109 mg/dL N Blood chemistry[[id number]] Glucose [Mass/volume] in Serum or Plasma [2345-7] 08/22/2024 05:06 PM 162 mg/dL N Blood chemistry[[id number]] Glucose [Mass/volume] in Serum or Plasma [2345-7] 08/22/2024 05:04 PM 162 mg/dL N Blood chemistry[[id number]] Glucose [Mass/volume] in Serum or Plasma [2345-7] 08/22/2024 03:08 PM 206 mg/dL N Blood chemistry[[id number]] Glucose [Mass/volume] in Serum or Plasma [2345-7] 08/22/2024 02:44 PM 156 mg/dL N Blood chemistry[[id number]] Glucose [Mass/volume] in Serum or Plasma [2345-7] 08/22/2024 01:19 PM 156 mg/dL N Blood chemistry[[id number]] Glucose [Mass/volume] in Serum or Plasma [2345-7] 08/22/2024 11:07 AM 171 mg/dL N Blood chemistry[[id number]] Glucose [Mass/volume] in Serum or Plasma [2345-7] 08/22/2024 10:47 AM 179 mg/dL N Blood chemistry[[id number]] Glucose [Mass/volume] in Serum or Plasma [2345-7] 08/21/2024 02:18 PM 225 mg/dL N Blood chemistry[[id number]] Glucose [Mass/volume] in Serum or Plasma [2345-7] 08/21/2024 03:12 PM 147 mg/dL N Blood chemistry[[id number]] Glucose [Mass/volume] in Serum or Plasma [2345-7] 08/21/2024 11:10 AM 104 mg/dL N Blood chemistry[[id number]] Glucose [Mass/volume] in Serum or Plasma [2345-7] 08/21/2024 11:03 AM 157 mg/dL N Blood chemistry[[id number]] Glucose [Mass/volume] in Serum or Plasma [2345-7] 08/21/2024 07:14 AM 230 mg/dL N Blood chemistry[[id number]] Glucose [Mass/volume] in Serum or Plasma [2345-7] 08/20/2024 12:54 PM 121 mg/dL N Blood chemistry[[id number]] Glucose [Mass/volume] in Serum or Plasma [2345-7] 08/20/2024 05:28 PM 82 mg/dL N Blood chemistry[[id number]] Glucose [Mass/volume] in Serum or Plasma [2345-7] 08/20/2024 03:00 PM 99 mg/dL N Blood chemistry[[id number]] Glucose [Mass/volume] in Serum or Plasma [2345-7] 08/20/2024 11:36 AM 77 mg/dL N Blood chemistry[[id number]] Glucose [Mass/volume] in Serum or Plasma [2345-7] 08/20/2024 11:04 AM 100 mg/dL N Blood chemistry[[id number]] Glucose [Mass/volume] in Serum or Plasma [2345-7] 08/19/2024 05:41 PM 121 mg/dL N Blood chemistry[[id number]] Glucose [Mass/volume] in Serum or Plasma [2345-7] 08/19/2024 01:49 PM 212 mg/dL N Blood chemistry[[id number]] Glucose [Mass/volume] in Serum or Plasma [2345-7] 08/19/2024 12:33 PM 301 mg/dL N Blood chemistry[[id number]] Glucose [Mass/volume] in Serum or Plasma [2345-7] 08/19/2024 09:34 AM 183 mg/dL N Blood chemistry[[id number]] Glucose [Mass/volume] in Serum or Plasma [2345-7] 08/18/2024 12:47 PM 164 mg/dL N Blood chemistry[[id number]] Glucose [Mass/volume] in Serum or Plasma [2345-7] 08/18/2024 05:31 PM 92 mg/dL N Blood chemistry[[id number]] Glucose [Mass/volume] in Serum or Plasma [2345-7] 08/18/2024 01:20 PM 70 mg/dL N Blood chemistry[[id number]] Glucose [Mass/volume] in Serum or Plasma [2345-7] 08/18/2024 10:00 AM 76 mg/dL N Blood chemistry[[id number]] Glucose [Mass/volume] in Serum or Plasma [2345-7] 08/17/2024 02:14 PM 90 mg/dL N Blood chemistry[[id number]] Glucose [Mass/volume] in Serum or Plasma [2345-7] 08/17/2024 01:43 PM 68 mg/dL N Blood chemistry[[id number]] Glucose [Mass/volume] in Serum or Plasma [2345-7] 08/17/2024 10:56 AM 71 mg/dL N Blood chemistry[[id number]] Glucose [Mass/volume] in Serum or Plasma [2345-7] 08/17/2024 07:27 AM 127 mg/dL N Blood chemistry[[id number]] Glucose [Mass/volume] in Serum or Plasma [2345-7] 08/17/2024 07:26 AM 127 mg/dL N Blood chemistry[[id number]] Glucose [Mass/volume] in Serum or Plasma [2345-7] 08/16/2024 01:53 PM 206 mg/dL N Blood chemistry[[id number]] Glucose [Mass/volume] in Serum or Plasma [2345-7] 08/16/2024 10:31 AM 97 mg/dL N Blood chemistry[[id number]] Glucose [Mass/volume] in Serum or Plasma [2345-7] 08/16/2024 05:26 PM 214 mg/dL N Blood chemistry[[id number]] Glucose [Mass/volume] in Serum or Plasma [2345-7] 08/16/2024 01:04 PM 86 mg/dL N Blood chemistry[[id number]] Glucose [Mass/volume] in Serum or Plasma [2345-7] 08/15/2024 01:26 PM 267 mg/dL N Blood chemistry[[id number]] Glucose [Mass/volume] in Serum or Plasma [2345-7] 08/15/2024 06:00 PM 272 mg/dL N Blood chemistry[[id number]] Glucose [Mass/volume] in Serum or Plasma [2345-7] 08/15/2024 02:33 PM 193 mg/dL N Blood chemistry[[id number]] Glucose [Mass/volume] in Serum or Plasma [2345-7] 08/15/2024 11:16 AM 171 mg/dL N Blood chemistry[[id number]] Glucose [Mass/volume] in Serum or Plasma [2345-7] 08/15/2024 10:28 AM 178 mg/dL N Blood chemistry[[id number]] Glucose [Mass/volume] in Serum or Plasma [2345-7] 08/14/2024 12:42 PM 208 mg/dL N Blood chemistry[[id number]] Glucose [Mass/volume] in Serum or Plasma [2345-7] 08/14/2024 02:02 PM 182 mg/dL N Blood chemistry[[id number]] Glucose [Mass/volume] in Serum or Plasma [2345-7] 08/14/2024 02:01 PM 184 mg/dL N Blood chemistry[[id number]] Glucose [Mass/volume] in Serum or Plasma [2345-7] 08/14/2024 11:08 AM 175 mg/dL N Blood chemistry[[id number]] Glucose [Mass/volume] in Serum or Plasma [2345-7] 08/14/2024 09:22 AM 191 mg/dL N Blood chemistry[[id number]] Glucose [Mass/volume] in Serum or Plasma [2345-7] 08/13/2024 12:55 PM 222 mg/dL N Blood chemistry[[id number]] Glucose [Mass/volume] in Serum or Plasma [2345-7] 08/13/2024 01:33 PM 160 mg/dL N Blood chemistry[[id number]] Glucose [Mass/volume] in Serum or Plasma [2345-7] 08/13/2024 10:59 AM 137 mg/dL N Blood chemistry[[id number]] Glucose [Mass/volume] in Serum or Plasma [2345-7] 08/13/2024 10:41 AM 84 mg/dL N Glucose [Mass/volume] in Serum or Plasma [2345-7] 08/13/2024 10:41 AM 84 mg/dL N Blood chemistry[[id number]] Glucose [Mass/volume] in Serum or Plasma [2345-7] 08/13/2024 08:37 AM 91 mg/dL N Blood chemistry[[id number]] Glucose [Mass/volume] in Serum or Plasma [2345-7] 08/12/2024 06:08 PM 89 mg/dL N Blood chemistry[[id number]] Glucose [Mass/volume] in Serum or Plasma [2345-7] 08/12/2024 01:52 PM 113 mg/dL N Glucose [Mass/volume] in Serum or Plasma [2345-7] 08/12/2024 01:52 PM 113 mg/dL N Blood chemistry[[id number]] Glucose [Mass/volume] in Serum or Plasma [2345-7] 08/12/2024 12:37 PM 176 mg/dL N Blood chemistry[[id number]] Glucose [Mass/volume] in Serum or Plasma [2345-7] 08/12/2024 10:32 AM 88 mg/dL N Blood chemistry[[id number]] Glucose [Mass/volume] in Serum or Plasma [2345-7] 08/11/2024 01:18 PM 145 mg/dL N Blood chemistry[[id number]] Glucose [Mass/volume] in Serum or Plasma [2345-7] 08/11/2024 05:42 PM 89 mg/dL N Blood chemistry[[id number]] Glucose [Mass/volume] in Serum or Plasma [2345-7] 08/11/2024 01:41 PM 80 mg/dL N Blood chemistry[[id number]] Glucose [Mass/volume] in Serum or Plasma [2345-7] 08/11/2024 10:38 AM 100 mg/dL N Blood chemistry[[id number]] Glucose [Mass/volume] in Serum or Plasma [2345-7] 08/10/2024 03:11 PM 57 mg/dL N Blood chemistry[[id number]] Glucose [Mass/volume] in Serum or Plasma [2345-7] 08/10/2024 02:12 PM 237 mg/dL N Blood chemistry[[id number]] Glucose [Mass/volume] in Serum or Plasma [2345-7] 08/10/2024 10:57 AM 163 mg/dL N Blood chemistry[[id number]] Glucose [Mass/volume] in Serum or Plasma [2345-7] 08/10/2024 08:16 AM 108 mg/dL N Blood chemistry[[id number]] Glucose [Mass/volume] in Serum or Plasma [2345-7] 08/09/2024 02:04 PM 159 mg/dL N Blood chemistry[[id number]] Glucose [Mass/volume] in Serum or Plasma [2345-7] 08/09/2024 10:23 AM 110 mg/dL N Blood chemistry[[id number]] Glucose [Mass/volume] in Serum or Plasma [2345-7] 08/09/2024 06:36 PM 136 mg/dL N Blood chemistry[[id number]] Glucose [Mass/volume] in Serum or Plasma [2345-7] 08/09/2024 01:12 PM 119 mg/dL N Blood chemistry[[id number]] Glucose [Mass/volume] in Serum or Plasma [2345-7] 08/08/2024 01:44 PM 41 mg/dL N Blood chemistry[[id number]] Glucose [Mass/volume] in Serum or Plasma [2345-7] 08/08/2024 04:46 PM 132 mg/dL N Blood chemistry[[id number]] Glucose [Mass/volume] in Serum or Plasma [2345-7] 08/08/2024 03:15 PM 116 mg/dL N Blood chemistry[[id number]] Glucose [Mass/volume] in Serum or Plasma [2345-7] 08/08/2024 10:52 AM 176 mg/dL N Blood chemistry[[id number]] Glucose [Mass/volume] in Serum or Plasma [2345-7] 08/07/2024 02:55 PM 246 mg/dL N Blood chemistry[[id number]] Glucose [Mass/volume] in Serum or Plasma [2345-7] 08/07/2024 05:21 PM 241 mg/dL N Blood chemistry[[id number]] Glucose [Mass/volume] in Serum or Plasma [2345-7] 08/07/2024 01:58 PM 186 mg/dL N Blood chemistry[[id number]] Glucose [Mass/volume] in Serum or Plasma [2345-7] 08/07/2024 10:35 AM 191 mg/dL N Blood chemistry[[id number]] Glucose [Mass/volume] in Serum or Plasma [2345-7] 08/07/2024 10:24 AM 219 mg/dL N Blood chemistry[[id number]] Glucose [Mass/volume] in Serum or Plasma [2345-7] 08/06/2024 12:37 PM 210 mg/dL N Blood chemistry[[id number]] Glucose [Mass/volume] in Serum or Plasma [2345-7] 08/06/2024 12:12 PM 157 mg/dL N Blood chemistry[[id number]] Glucose [Mass/volume] in Serum or Plasma [2345-7] 08/06/2024 06:41 PM 165 mg/dL N Blood chemistry[[id number]] Glucose [Mass/volume] in Serum or Plasma [2345-7] 08/06/2024 02:09 PM 174 mg/dL N Blood chemistry[[id number]] Glucose [Mass/volume] in Serum or Plasma [2345-7] 08/06/2024 11:06 AM 183 mg/dL N Blood chemistry[[id number]] Glucose [Mass/volume] in Serum or Plasma [2345-7] 08/05/2024 12:55 PM 171 mg/dL N Blood chemistry[[id number]] Glucose [Mass/volume] in Serum or Plasma [2345-7] 08/05/2024 05:44 PM 165 mg/dL N Blood chemistry[[id number]] Glucose [Mass/volume] in Serum or Plasma [2345-7] 08/05/2024 01:13 PM 151 mg/dL N Blood chemistry[[id number]] Glucose [Mass/volume] in Serum or Plasma [2345-7] 08/05/2024 11:07 AM 166 mg/dL N Blood chemistry[[id number]] Glucose [Mass/volume] in Serum or Plasma [2345-7] 08/05/2024 10:53 AM 191 mg/dL N Blood chemistry[[id number]] Glucose [Mass/volume] in Serum or Plasma [2345-7] 08/04/2024 01:01 PM 195 mg/dL N Blood chemistry[[id number]] Glucose [Mass/volume] in Serum or Plasma [2345-7] 08/04/2024 05:59 PM 93 mg/dL N Blood chemistry[[id number]] Glucose [Mass/volume] in Serum or Plasma [2345-7] 08/04/2024 01:45 PM 56 mg/dL N Blood chemistry[[id number]] Glucose [Mass/volume] in Serum or Plasma [2345-7] 08/04/2024 01:41 PM 56 mg/dL N Blood chemistry[[id number]] Glucose [Mass/volume] in Serum or Plasma [2345-7] 08/04/2024 11:12 AM 141 mg/dL N Glucose [Mass/volume] in Serum or Plasma [2345-7] 08/04/2024 11:12 AM 141 mg/dL N Blood chemistry[[id number]] Glucose [Mass/volume] in Serum or Plasma [2345-7] 08/03/2024 03:45 PM 144 mg/dL N Blood chemistry[[id number]] Glucose [Mass/volume] in Serum or Plasma [2345-7] 08/03/2024 02:40 PM 109 mg/dL N Blood chemistry[[id number]] Glucose [Mass/volume] in Serum or Plasma [2345-7] 08/03/2024 12:28 PM 106 mg/dL N Blood chemistry[[id number]] Glucose [Mass/volume] in Serum or Plasma [2345-7] 08/03/2024 08:59 AM 89 mg/dL N Blood chemistry[[id number]] Glucose [Mass/volume] in Serum or Plasma [2345-7] 08/03/2024 10:56 AM 109 mg/dL N Blood chemistry[[id number]] Glucose [Mass/volume] in Serum or Plasma [2345-7] 08/02/2024 01:24 PM 223 mg/dL N Blood chemistry[[id number]] Glucose [Mass/volume] in Serum or Plasma [2345-7] 08/02/2024 12:31 PM 200 mg/dL N Glucose [Mass/volume] in Serum or Plasma [2345-7] 08/02/2024 12:31 PM 200 mg/dL N Glucose [Mass/volume] in Serum or Plasma [2345-7] 08/02/2024 12:31 PM 207 mg/dL N Blood chemistry[[id number]] Glucose [Mass/volume] in Serum or Plasma [2345-7] 08/02/2024 04:11 PM 176 mg/dL N Blood chemistry[[id number]] Glucose [Mass/volume] in Serum or Plasma [2345-7] 08/02/2024 04:08 PM 176 mg/dL N Blood chemistry[[id number]] Glucose [Mass/volume] in Serum or Plasma [2345-7] 08/01/2024 01:00 PM 264 mg/dL N Blood chemistry[[id number]] Glucose [Mass/volume] in Serum or Plasma [2345-7] 08/01/2024 03:59 PM 168 mg/dL N Blood chemistry[[id number]] Glucose [Mass/volume] in Serum or Plasma [2345-7] 08/01/2024 10:49 AM 213 mg/dL N Blood chemistry[[id number]] Glucose [Mass/volume] in Serum or Plasma [2345-7] 08/01/2024 09:39 AM 198 mg/dL N Blood chemistry[[id number]] Glucose [Mass/volume] in Serum or Plasma [2345-7] 07/31/2024 05:02 PM 122 mg/dL N Blood chemistry[[id number]] Glucose [Mass/volume] in Serum or Plasma [2345-7] 07/31/2024 01:33 PM 161 mg/dL N Blood chemistry[[id number]] Glucose [Mass/volume] in Serum or Plasma [2345-7] 07/31/2024 12:30 PM 183 mg/dL N Blood chemistry[[id number]] Glucose [Mass/volume] in Serum or Plasma [2345-7] 07/31/2024 10:28 AM 197 mg/dL N Blood chemistry[[id number]] Glucose [Mass/volume] in Serum or Plasma [2345-7] 07/31/2024 11:19 AM 163 mg/dL N Blood chemistry[[id number]] Glucose [Mass/volume] in Serum or Plasma [2345-7] 07/30/2024 01:19 PM 191 mg/dL N Blood chemistry[[id number]] Glucose [Mass/volume] in Serum or Plasma [2345-7] 07/30/2024 10:08 AM 90 mg/dL N Blood chemistry[[id number]] Glucose [Mass/volume] in Serum or Plasma [2345-7] 07/30/2024 05:05 PM 94 mg/dL N Glucose [Mass/volume] in Serum or Plasma [2345-7] 07/30/2024 05:05 PM 94 mg/dL N Blood chemistry[[id number]] Glucose [Mass/volume] in Serum or Plasma [2345-7] 07/30/2024 01:33 PM 80 mg/dL N Blood chemistry[[id number]] Glucose [Mass/volume] in Serum or Plasma [2345-7] 07/30/2024 11:03 AM 90 mg/dL N Blood chemistry[[id number]] Glucose [Mass/volume] in Serum or Plasma [2345-7] 07/29/2024 12:28 PM 221 mg/dL N Blood chemistry[[id number]] Glucose [Mass/volume] in Serum or Plasma [2345-7] 07/29/2024 02:55 PM 65 mg/dL N Blood chemistry[[id number]] Glucose [Mass/volume] in Serum or Plasma [2345-7] 07/29/2024 11:09 AM 176 mg/dL N Glucose [Mass/volume] in Serum or Plasma [2345-7] 07/29/2024 11:09 AM 71 mg/dL N Blood chemistry[[id number]] Glucose [Mass/volume] in Serum or Plasma [2345-7] 07/29/2024 08:05 AM 171 mg/dL N Blood chemistry[[id number]] Glucose [Mass/volume] in Serum or Plasma [2345-7] 07/28/2024 12:42 PM 277 mg/dL N Blood chemistry[[id number]] Glucose [Mass/volume] in Serum or Plasma [2345-7] 07/28/2024 05:42 PM 118 mg/dL N Blood chemistry[[id number]] Glucose [Mass/volume] in Serum or Plasma [2345-7] 07/28/2024 01:43 PM 111 mg/dL N Blood chemistry[[id number]] Glucose [Mass/volume] in Serum or Plasma [2345-7] 07/28/2024 10:17 AM 150 mg/dL N Blood chemistry[[id number]] Glucose [Mass/volume] in Serum or Plasma [2345-7] 07/27/2024 05:34 PM 126 mg/dL N Blood chemistry[[id number]] Glucose [Mass/volume] in Serum or Plasma [2345-7] 07/27/2024 02:49 PM 98 mg/dL N Blood chemistry[[id number]] Glucose [Mass/volume] in Serum or Plasma [2345-7] 07/27/2024 02:47 PM 260 mg/dL N Blood chemistry[[id number]] Glucose [Mass/volume] in Serum or Plasma [2345-7] 07/27/2024 10:35 AM 182 mg/dL N Blood chemistry[[id number]] Glucose [Mass/volume] in Serum or Plasma [2345-7] 07/26/2024 01:40 PM 288 mg/dL N Glucose [Mass/volume] in Serum or Plasma [2345-7] 07/26/2024 01:40 PM 211 mg/dL N Blood chemistry[[id number]] Glucose [Mass/volume] in Serum or Plasma [2345-7] 07/26/2024 09:53 AM 189 mg/dL N Blood chemistry[[id number]] Glucose [Mass/volume] in Serum or Plasma [2345-7] 07/26/2024 05:37 PM 258 mg/dL N Blood chemistry[[id number]] Glucose [Mass/volume] in Serum or Plasma [2345-7] 07/25/2024 06:26 PM 217 mg/dL N Blood chemistry[[id number]] Glucose [Mass/volume] in Serum or Plasma [2345-7] 07/25/2024 04:10 PM 249 mg/dL N Blood chemistry[[id number]] Glucose [Mass/volume] in Serum or Plasma [2345-7] 07/25/2024 12:35 PM 244 mg/dL N Blood chemistry[[id number]] Glucose [Mass/volume] in Serum or Plasma [2345-7] 07/25/2024 11:17 AM 177 mg/dL N Blood chemistry[[id number]] Glucose [Mass/volume] in Serum or Plasma [2345-7] 07/24/2024 12:38 PM 204 mg/dL N Blood chemistry[[id number]] Glucose [Mass/volume] in Serum or Plasma [2345-7] 07/24/2024 10:36 AM 216 mg/dL N Blood chemistry[[id number]] Glucose [Mass/volume] in Serum or Plasma [2345-7] 07/24/2024 07:55 AM 154 mg/dL N Blood chemistry[[id number]] Glucose [Mass/volume] in Serum or Plasma [2345-7] 07/24/2024 02:28 PM 151 mg/dL N Blood chemistry[[id number]] Glucose [Mass/volume] in Serum or Plasma [2345-7] 07/24/2024 11:08 AM 158 mg/dL N Blood chemistry[[id number]] Glucose [Mass/volume] in Serum or Plasma [2345-7] 07/23/2024 05:27 PM 167 mg/dL N Blood chemistry[[id number]] Glucose [Mass/volume] in Serum or Plasma [2345-7] 07/23/2024 01:07 PM 218 mg/dL N Blood chemistry[[id number]] Glucose [Mass/volume] in Serum or Plasma [2345-7] 07/23/2024 10:31 AM 97 mg/dL N Blood chemistry[[id number]] Glucose [Mass/volume] in Serum or Plasma [2345-7] 07/23/2024 01:45 PM 134 mg/dL N Blood chemistry[[id number]] Glucose [Mass/volume] in Serum or Plasma [2345-7] 07/23/2024 11:12 AM 135 mg/dL N Blood chemistry[[id number]] Glucose [Mass/volume] in Serum or Plasma [2345-7] 07/22/2024 05:29 PM 97 mg/dL N Glucose [Mass/volume] in Serum or Plasma [2345-7] 07/22/2024 05:29 PM 97 mg/dL N Blood chemistry[[id number]] Glucose [Mass/volume] in Serum or Plasma [2345-7] 07/22/2024 12:44 PM 232 mg/dL N Blood chemistry[[id number]] Glucose [Mass/volume] in Serum or Plasma [2345-7] 07/22/2024 10:46 AM 130 mg/dL N Blood chemistry[[id number]] Glucose [Mass/volume] in Serum or Plasma [2345-7] 07/22/2024 01:47 PM 123 mg/dL N Blood chemistry[[id number]] Glucose [Mass/volume] in Serum or Plasma [2345-7] 07/21/2024 06:12 PM 240 mg/dL N Blood chemistry[[id number]] Glucose [Mass/volume] in Serum or Plasma [2345-7] 07/21/2024 03:30 PM 189 mg/dL N Blood chemistry[[id number]] Glucose [Mass/volume] in Serum or Plasma [2345-7] 07/21/2024 01:58 PM 187 mg/dL N Blood chemistry[[id number]] Glucose [Mass/volume] in Serum or Plasma [2345-7] 07/21/2024 10:13 AM 237 mg/dL N Glucose [Mass/volume] in Serum or Plasma [2345-7] 07/21/2024 10:13 AM 237 mg/dL N Blood chemistry[[id number]] Glucose [Mass/volume] in Serum or Plasma [2345-7] 07/20/2024 04:40 PM 188 mg/dL N Blood chemistry[[id number]] Glucose [Mass/volume] in Serum or Plasma [2345-7] 07/20/2024 12:06 PM 156 mg/dL N Blood chemistry[[id number]] Glucose [Mass/volume] in Serum or Plasma [2345-7] 07/20/2024 08:19 AM 208 mg/dL N Glucose [Mass/volume] in Serum or Plasma [2345-7] 07/20/2024 08:19 AM 208 mg/dL N Blood chemistry[[id number]] Glucose [Mass/volume] in Serum or Plasma [2345-7] 07/20/2024 08:18 AM 260 mg/dL N Blood chemistry[[id number]] Glucose [Mass/volume] in Serum or Plasma [2345-7] 07/19/2024 12:42 PM 232 mg/dL N Blood chemistry[[id number]] Glucose [Mass/volume] in Serum or Plasma [2345-7] 07/19/2024 08:26 AM 190 mg/dL N Blood chemistry[[id number]] Glucose [Mass/volume] in Serum or Plasma [2345-7] 07/19/2024 08:25 AM 190 mg/dL N Glucose [Mass/volume] in Serum or Plasma [2345-7] 07/19/2024 08:25 AM 160 mg/dL N Blood chemistry[[id number]] Glucose [Mass/volume] in Serum or Plasma [2345-7] 07/18/2024 05:17 PM 185 mg/dL N Blood chemistry[[id number]] Glucose [Mass/volume] in Serum or Plasma [2345-7] 07/18/2024 06:57 PM 177 mg/dL N Blood chemistry[[id number]] Glucose [Mass/volume] in Serum or Plasma [2345-7] 07/18/2024 04:45 PM 185 mg/dL N Blood chemistry[[id number]] Glucose [Mass/volume] in Serum or Plasma [2345-7] 07/18/2024 12:05 PM 240 mg/dL N Blood chemistry[[id number]] Glucose [Mass/volume] in Serum or Plasma [2345-7] 07/18/2024 11:08 AM 198 mg/dL N Blood chemistry[[id number]] Glucose [Mass/volume] in Serum or Plasma [2345-7] 07/17/2024 05:01 PM 277 mg/dL N Blood chemistry[[id number]] Glucose [Mass/volume] in Serum or Plasma [2345-7] 07/17/2024 02:12 PM 171 mg/dL N Blood chemistry[[id number]] Glucose [Mass/volume] in Serum or Plasma [2345-7] 07/17/2024 12:26 PM 248 mg/dL N Blood chemistry[[id number]] Glucose [Mass/volume] in Serum or Plasma [2345-7] 07/17/2024 10:27 AM 207 mg/dL N Blood chemistry[[id number]] Glucose [Mass/volume] in Serum or Plasma [2345-7] 07/17/2024 11:09 AM 172 mg/dL N Blood chemistry[[id number]] Glucose [Mass/volume] in Serum or Plasma [2345-7] 07/16/2024 12:31 PM 218 mg/dL N Blood chemistry[[id number]] Glucose [Mass/volume] in Serum or Plasma [2345-7] 07/16/2024 10:22 AM 145 mg/dL N Blood chemistry[[id number]] Glucose [Mass/volume] in Serum or Plasma [2345-7] 07/16/2024 03:36 PM 286 mg/dL N Blood chemistry[[id number]] Glucose [Mass/volume] in Serum or Plasma [2345-7] 07/16/2024 11:06 AM 148 mg/dL N Blood chemistry[[id number]] Glucose [Mass/volume] in Serum or Plasma [2345-7] 07/16/2024 07:01 AM 135 mg/dL N Blood chemistry[[id number]] Glucose [Mass/volume] in Serum or Plasma [2345-7] 07/15/2024 06:09 PM 267 mg/dL N Blood chemistry[[id number]] Glucose [Mass/volume] in Serum or Plasma [2345-7] 07/15/2024 01:39 PM 254 mg/dL N Blood chemistry[[id number]] Glucose [Mass/volume] in Serum or Plasma [2345-7] 07/15/2024 12:33 PM 177 mg/dL N Blood chemistry[[id number]] Glucose [Mass/volume] in Serum or Plasma [2345-7] 07/15/2024 11:07 AM 183 mg/dL N Blood chemistry[[id number]] Glucose [Mass/volume] in Serum or Plasma [2345-7] 07/15/2024 10:15 AM 200 mg/dL N Blood chemistry[[id number]] Glucose [Mass/volume] in Serum or Plasma [2345-7] 07/14/2024 05:04 PM 171 mg/dL N Blood chemistry[[id number]] Glucose [Mass/volume] in Serum or Plasma [2345-7] 07/14/2024 01:21 PM 268 mg/dL N Blood chemistry[[id number]] Glucose [Mass/volume] in Serum or Plasma [2345-7] 07/14/2024 12:54 PM 233 mg/dL N Blood chemistry[[id number]] Glucose [Mass/volume] in Serum or Plasma [2345-7] 07/14/2024 10:42 AM 242 mg/dL N Blood chemistry[[id number]] Glucose [Mass/volume] in Serum or Plasma [2345-7] 07/13/2024 05:05 PM 203 mg/dL N Blood chemistry[[id number]] Glucose [Mass/volume] in Serum or Plasma [2345-7] 07/13/2024 04:35 PM 345 mg/dL N Blood chemistry[[id number]] Glucose [Mass/volume] in Serum or Plasma [2345-7] 07/13/2024 02:12 PM 144 mg/dL N Blood chemistry[[id number]] Glucose [Mass/volume] in Serum or Plasma [2345-7] 07/13/2024 11:19 AM 209 mg/dL N Blood chemistry[[id number]] Glucose [Mass/volume] in Serum or Plasma [2345-7] 07/12/2024 05:36 PM 215 mg/dL N Blood chemistry[[id number]] Glucose [Mass/volume] in Serum or Plasma [2345-7] 07/12/2024 03:00 PM 198 mg/dL N Blood chemistry[[id number]] Glucose [Mass/volume] in Serum or Plasma [2345-7] 07/12/2024 01:36 PM 210 mg/dL N Blood chemistry[[id number]] Glucose [Mass/volume] in Serum or Plasma [2345-7] 07/12/2024 10:14 AM 232 mg/dL N Blood chemistry[[id number]] Glucose [Mass/volume] in Serum or Plasma [2345-7] 07/11/2024 05:19 PM 166 mg/dL N Blood chemistry[[id number]] Glucose [Mass/volume] in Serum or Plasma [2345-7] 07/11/2024 03:17 PM 210 mg/dL N Blood chemistry[[id number]] Glucose [Mass/volume] in Serum or Plasma [2345-7] 07/11/2024 02:29 PM 111 mg/dL N Blood chemistry[[id number]] Glucose [Mass/volume] in Serum or Plasma [2345-7] 07/11/2024 11:36 AM 164 mg/dL N Blood chemistry[[id number]] Glucose [Mass/volume] in Serum or Plasma [2345-7] 07/10/2024 04:54 PM 206 mg/dL N Blood chemistry[[id number]] Glucose [Mass/volume] in Serum or Plasma [2345-7] 07/10/2024 02:01 PM 148 mg/dL N Blood chemistry[[id number]] Glucose [Mass/volume] in Serum or Plasma [2345-7] 07/10/2024 12:59 PM 280 mg/dL N Blood chemistry[[id number]] Glucose [Mass/volume] in Serum or Plasma [2345-7] 07/10/2024 11:02 AM 208 mg/dL N Blood chemistry[[id number]] Glucose [Mass/volume] in Serum or Plasma [2345-7] 07/09/2024 05:50 PM 195 mg/dL N Blood chemistry[[id number]] Glucose [Mass/volume] in Serum or Plasma [2345-7] 07/09/2024 03:54 PM 134 mg/dL N Blood chemistry[[id number]] Glucose [Mass/volume] in Serum or Plasma [2345-7] 07/09/2024 12:26 PM 265 mg/dL N Blood chemistry[[id number]] Glucose [Mass/volume] in Serum or Plasma [2345-7] 07/09/2024 11:10 AM 178 mg/dL N Blood chemistry[[id number]] Glucose [Mass/volume] in Serum or Plasma [2345-7] 07/08/2024 04:50 PM 211 mg/dL N Blood chemistry[[id number]] Glucose [Mass/volume] in Serum or Plasma [2345-7] 07/08/2024 01:50 PM 109 mg/dL N Blood chemistry[[id number]] Glucose [Mass/volume] in Serum or Plasma [2345-7] 07/08/2024 01:09 PM 193 mg/dL N Blood chemistry[[id number]] Glucose [Mass/volume] in Serum or Plasma [2345-7] 07/08/2024 09:11 AM 171 mg/dL N Blood chemistry[[id number]] Glucose [Mass/volume] in Serum or Plasma [2345-7] 07/07/2024 03:11 PM 217 mg/dL N Blood chemistry[[id number]] Glucose [Mass/volume] in Serum or Plasma [2345-7] 07/07/2024 02:23 PM 238 mg/dL N Blood chemistry[[id number]] Glucose [Mass/volume] in Serum or Plasma [2345-7] 07/07/2024 01:51 PM 217 mg/dL N Blood chemistry[[id number]] Glucose [Mass/volume] in Serum or Plasma [2345-7] 07/07/2024 10:58 AM 175 mg/dL N Blood chemistry[[id number]] Glucose [Mass/volume] in Serum or Plasma [2345-7] 07/07/2024 07:14 AM 290 mg/dL N Blood chemistry[[id number]] Glucose [Mass/volume] in Serum or Plasma [2345-7] 07/06/2024 02:29 PM 235 mg/dL N Blood chemistry[[id number]] Glucose [Mass/volume] in Serum or Plasma [2345-7] 07/06/2024 10:39 AM 247 mg/dL N Blood chemistry[[id number]] Glucose [Mass/volume] in Serum or Plasma [2345-7] 07/06/2024 07:41 AM 187 mg/dL N Blood chemistry[[id number]] Glucose [Mass/volume] in Serum or Plasma [2345-7] 07/06/2024 07:39 AM 187 mg/dL N Glucose [Mass/volume] in Serum or Plasma [2345-7] 07/06/2024 07:39 AM 164 mg/dL N Blood chemistry[[id number]] Glucose [Mass/volume] in Serum or Plasma [2345-7] 07/05/2024 05:09 PM 169 mg/dL N Blood chemistry[[id number]] Glucose [Mass/volume] in Serum or Plasma [2345-7] 07/05/2024 02:02 PM 354 mg/dL N Blood chemistry[[id number]] Glucose [Mass/volume] in Serum or Plasma [2345-7] 07/05/2024 11:43 AM 187 mg/dL N Blood chemistry[[id number]] Glucose [Mass/volume] in Serum or Plasma [2345-7] 07/05/2024 10:16 AM 161 mg/dL N Blood chemistry[[id number]] Glucose [Mass/volume] in Serum or Plasma [2345-7] 07/04/2024 04:04 PM 200 mg/dL N Blood chemistry[[id number]] Glucose [Mass/volume] in Serum or Plasma [2345-7] 07/04/2024 02:33 PM 176 mg/dL N Blood chemistry[[id number]] Glucose [Mass/volume] in Serum or Plasma [2345-7] 07/04/2024 12:11 PM 179 mg/dL N Blood chemistry[[id number]] Glucose [Mass/volume] in Serum or Plasma [2345-7] 07/04/2024 11:11 AM 193 mg/dL N Blood chemistry[[id number]] Glucose [Mass/volume] in Serum or Plasma [2345-7] 07/04/2024 08:24 AM 227 mg/dL N Blood chemistry[[id number]] Glucose [Mass/volume] in Serum or Plasma [2345-7] 07/03/2024 05:20 PM 193 mg/dL N Blood chemistry[[id number]] Glucose [Mass/volume] in Serum or Plasma [2345-7] 07/03/2024 02:25 PM 153 mg/dL N Blood chemistry[[id number]] Glucose [Mass/volume] in Serum or Plasma [2345-7] 07/03/2024 12:43 PM 257 mg/dL N Blood chemistry[[id number]] Glucose [Mass/volume] in Serum or Plasma [2345-7] 07/03/2024 11:01 AM 167 mg/dL N Blood chemistry[[id number]] Glucose [Mass/volume] in Serum or Plasma [2345-7] 07/03/2024 10:50 AM 194 mg/dL N Blood chemistry[[id number]] Glucose [Mass/volume] in Serum or Plasma [2345-7] 07/02/2024 05:12 PM 216 mg/dL N Blood chemistry[[id number]] Glucose [Mass/volume] in Serum or Plasma [2345-7] 07/02/2024 02:00 PM 169 mg/dL N Blood chemistry[[id number]] Glucose [Mass/volume] in Serum or Plasma [2345-7] 07/02/2024 12:36 PM 258 mg/dL N Blood chemistry[[id number]] Glucose [Mass/volume] in Serum or Plasma [2345-7] 07/02/2024 10:57 AM 154 mg/dL N Blood chemistry[[id number]] Glucose [Mass/volume] in Serum or Plasma [2345-7] 07/02/2024 10:31 AM 202 mg/dL N Blood chemistry[[id number]] Glucose [Mass/volume] in Serum or Plasma [2345-7] 07/01/2024 03:43 PM 173 mg/dL N Blood chemistry[[id number]] Glucose [Mass/volume] in Serum or Plasma [2345-7] 07/01/2024 12:41 PM 173 mg/dL N Blood chemistry[[id number]] Glucose [Mass/volume] in Serum or Plasma [2345-7] 07/01/2024 11:25 AM 239 mg/dL N Blood chemistry[[id number]] Glucose [Mass/volume] in Serum or Plasma [2345-7] 07/01/2024 10:57 AM 182 mg/dL N Blood chemistry[[id number]] Glucose [Mass/volume] in Serum or Plasma [2345-7] 07/01/2024 08:12 AM 184 mg/dL N Blood chemistry[[id number]] Glucose [Mass/volume] in Serum or Plasma [2345-7] 06/30/2024 05:16 PM 156 mg/dL N Blood chemistry[[id number]] Glucose [Mass/volume] in Serum or Plasma [2345-7] 06/30/2024 01:02 PM 107 mg/dL N Blood chemistry[[id number]] Glucose [Mass/volume] in Serum or Plasma [2345-7] 06/30/2024 12:30 PM 197 mg/dL N Blood chemistry[[id number]] Glucose [Mass/volume] in Serum or Plasma [2345-7] 06/30/2024 10:37 AM 180 mg/dL N Blood chemistry[[id number]] Glucose [Mass/volume] in Serum or Plasma [2345-7] 06/29/2024 05:19 PM 180 mg/dL N Blood chemistry[[id number]] Glucose [Mass/volume] in Serum or Plasma [2345-7] 06/29/2024 04:44 PM 158 mg/dL N Blood chemistry[[id number]] Glucose [Mass/volume] in Serum or Plasma [2345-7] 06/29/2024 02:03 PM 72 mg/dL N Blood chemistry[[id number]] Glucose [Mass/volume] in Serum or Plasma [2345-7] 06/29/2024 11:13 AM 102 mg/dL N Blood chemistry[[id number]] Glucose [Mass/volume] in Serum or Plasma [2345-7] 06/29/2024 10:35 AM 133 mg/dL N Blood chemistry[[id number]] Glucose [Mass/volume] in Serum or Plasma [2345-7] 06/28/2024 04:55 PM 94 mg/dL N Blood chemistry[[id number]] Glucose [Mass/volume] in Serum or Plasma [2345-7] 06/28/2024 12:50 PM 192 mg/dL N Blood chemistry[[id number]] Glucose [Mass/volume] in Serum or Plasma [2345-7] 06/28/2024 12:36 PM 83 mg/dL N Blood chemistry[[id number]] Glucose [Mass/volume] in Serum or Plasma [2345-7] 06/28/2024 11:05 AM 100 mg/dL N Blood chemistry[[id number]] Glucose [Mass/volume] in Serum or Plasma [2345-7] 06/28/2024 09:58 AM 176 mg/dL N Blood chemistry[[id number]] Glucose [Mass/volume] in Serum or Plasma [2345-7] 06/27/2024 05:29 PM 197 mg/dL N Blood chemistry[[id number]] Glucose [Mass/volume] in Serum or Plasma [2345-7] 06/27/2024 12:35 PM 311 mg/dL N Blood chemistry[[id number]] Glucose [Mass/volume] in Serum or Plasma [2345-7] 06/27/2024 12:25 PM 264 mg/dL N Blood chemistry[[id number]] Glucose [Mass/volume] in Serum or Plasma [2345-7] 06/27/2024 12:01 PM 318 mg/dL N Blood chemistry[[id number]] Glucose [Mass/volume] in Serum or Plasma [2345-7] 06/27/2024 11:20 AM 270 mg/dL N Blood chemistry[[id number]] Glucose [Mass/volume] in Serum or Plasma [2345-7] 06/26/2024 04:33 PM 189 mg/dL N Blood chemistry[[id number]] Glucose [Mass/volume] in Serum or Plasma [2345-7] 06/26/2024 01:04 PM 193 mg/dL N Blood chemistry[[id number]] Glucose [Mass/volume] in Serum or Plasma [2345-7] 06/26/2024 12:23 PM 318 mg/dL N Blood chemistry[[id number]] Glucose [Mass/volume] in Serum or Plasma [2345-7] 06/26/2024 10:19 AM 287 mg/dL N COVID-19 Test Viral Antigen null flavor [null] 06/25/2024 05:23 PM See note NEG COVID-19 Test Viral Antigen Blood chemistry[[id number]] Glucose [Mass/volume] in Serum or Plasma [2345-7] 06/25/2024 03:19 PM 133 mg/dL N COVID-19 Test Viral Antigen null flavor [null] 06/25/2024 02:49 PM See note NEG COVID-19 Test Viral Antigen Blood chemistry[[id number]] Glucose [Mass/volume] in Serum or Plasma [2345-7] 06/25/2024 12:25 PM 319 mg/dL N Blood chemistry[[id number]] Glucose [Mass/volume] in Serum or Plasma [2345-7] 06/25/2024 11:25 AM 151 mg/dL N Blood chemistry[[id number]] Glucose [Mass/volume] in Serum or Plasma [2345-7] 06/25/2024 09:48 AM 213 mg/dL N Blood chemistry[[id number]] Glucose [Mass/volume] in Serum or Plasma [2345-7] 06/24/2024 05:29 PM 137 mg/dL N Blood chemistry[[id number]] Glucose [Mass/volume] in Serum or Plasma [2345-7] 06/24/2024 01:21 PM 81 mg/dL N Blood chemistry[[id number]] Glucose [Mass/volume] in Serum or Plasma [2345-7] 06/24/2024 12:24 PM 193 mg/dL N Blood chemistry[[id number]] Glucose [Mass/volume] in Serum or Plasma [2345-7] 06/24/2024 10:22 AM 286 mg/dL N Blood chemistry[[id number]] Glucose [Mass/volume] in Serum or Plasma [2345-7] 06/23/2024 05:57 PM 244 mg/dL N Blood chemistry[[id number]] Glucose [Mass/volume] in Serum or Plasma [2345-7] 06/23/2024 03:30 PM 170 mg/dL N Blood chemistry[[id number]] Glucose [Mass/volume] in Serum or Plasma [2345-7] 06/23/2024 01:11 PM 178 mg/dL N Blood chemistry[[id number]] Glucose [Mass/volume] in Serum or Plasma [2345-7] 06/23/2024 11:40 AM 135 mg/dL N Glucose [Mass/volume] in Serum or Plasma [2345-7] 06/23/2024 11:40 AM 108 mg/dL N Blood chemistry[[id number]] Glucose [Mass/volume] in Serum or Plasma [2345-7] 06/23/2024 11:15 AM 65 mg/dL N Blood chemistry[[id number]] Glucose [Mass/volume] in Serum or Plasma [2345-7] 06/22/2024 05:45 PM 69 mg/dL N Blood chemistry[[id number]] Glucose [Mass/volume] in Serum or Plasma [2345-7] 06/22/2024 01:36 PM 270 mg/dL N Blood chemistry[[id number]] Glucose [Mass/volume] in Serum or Plasma [2345-7] 06/22/2024 01:22 PM 81 mg/dL N Blood chemistry[[id number]] Glucose [Mass/volume] in Serum or Plasma [2345-7] 06/22/2024 11:36 AM 130 mg/dL N Blood chemistry[[id number]] Glucose [Mass/volume] in Serum or Plasma [2345-7] 06/22/2024 11:08 AM 101 mg/dL N Blood chemistry[[id number]] Glucose [Mass/volume] in Serum or Plasma [2345-7] 06/21/2024 05:57 PM 61 mg/dL N Blood chemistry[[id number]] Glucose [Mass/volume] in Serum or Plasma [2345-7] 06/21/2024 01:10 PM 73 mg/dL N Blood chemistry[[id number]] Glucose [Mass/volume] in Serum or Plasma [2345-7] 06/21/2024 01:06 PM 233 mg/dL N Blood chemistry[[id number]] Glucose [Mass/volume] in Serum or Plasma [2345-7] 06/21/2024 10:42 AM 186 mg/dL N Blood chemistry[[id number]] Glucose [Mass/volume] in Serum or Plasma [2345-7] 06/20/2024 06:44 PM 81 mg/dL N Blood chemistry[[id number]] Glucose [Mass/volume] in Serum or Plasma [2345-7] 06/20/2024 03:04 PM 140 mg/dL N Blood chemistry[[id number]] Glucose [Mass/volume] in Serum or Plasma [2345-7] 06/20/2024 02:34 PM 65 mg/dL N Blood chemistry[[id number]] Glucose [Mass/volume] in Serum or Plasma [2345-7] 06/20/2024 11:04 AM 90 mg/dL N Blood chemistry[[id number]] Glucose [Mass/volume] in Serum or Plasma [2345-7] 06/20/2024 11:03 AM 178 mg/dL N Blood chemistry[[id number]] Glucose [Mass/volume] in Serum or Plasma [2345-7] 06/19/2024 04:58 PM 129 mg/dL N Blood chemistry[[id number]] Glucose [Mass/volume] in Serum or Plasma [2345-7] 06/19/2024 01:27 PM 93 mg/dL N Blood chemistry[[id number]] Glucose [Mass/volume] in Serum or Plasma [2345-7] 06/19/2024 12:33 PM 323 mg/dL N Blood chemistry[[id number]] Glucose [Mass/volume] in Serum or Plasma [2345-7] 06/19/2024 11:32 AM 66 mg/dL N Blood chemistry[[id number]] Glucose [Mass/volume] in Serum or Plasma [2345-7] 06/19/2024 10:29 AM 103 mg/dL N Blood chemistry[[id number]] Glucose [Mass/volume] in Serum or Plasma [2345-7] 06/18/2024 05:24 PM 139 mg/dL N Blood chemistry[[id number]] Glucose [Mass/volume] in Serum or Plasma [2345-7] 06/18/2024 01:43 PM 89 mg/dL N Blood chemistry[[id number]] Glucose [Mass/volume] in Serum or Plasma [2345-7] 06/18/2024 12:36 PM 225 mg/dL N Blood chemistry[[id number]] Glucose [Mass/volume] in Serum or Plasma [2345-7] 06/18/2024 11:10 AM 74 mg/dL N Blood chemistry[[id number]] Glucose [Mass/volume] in Serum or Plasma [2345-7] 06/18/2024 11:08 AM 206 mg/dL N Blood chemistry[[id number]] Glucose [Mass/volume] in Serum or Plasma [2345-7] 06/17/2024 05:12 PM 201 mg/dL N Blood chemistry[[id number]] Glucose [Mass/volume] in Serum or Plasma [2345-7] 06/17/2024 01:05 PM 118 mg/dL N Blood chemistry[[id number]] Glucose [Mass/volume] in Serum or Plasma [2345-7] 06/17/2024 12:52 PM 116 mg/dL N Blood chemistry[[id number]] Glucose [Mass/volume] in Serum or Plasma [2345-7] 06/17/2024 11:26 AM 66 mg/dL N Blood chemistry[[id number]] Glucose [Mass/volume] in Serum or Plasma [2345-7] 06/17/2024 09:34 AM 63 mg/dL N Blood chemistry[[id number]] Glucose [Mass/volume] in Serum or Plasma [2345-7] 06/16/2024 01:44 PM 144 mg/dL N Blood chemistry[[id number]] Glucose [Mass/volume] in Serum or Plasma [2345-7] 06/16/2024 01:40 PM 252 mg/dL N Blood chemistry[[id number]] Glucose [Mass/volume] in Serum or Plasma [2345-7] 06/16/2024 11:21 AM 62 mg/dL N Blood chemistry[[id number]] Glucose [Mass/volume] in Serum or Plasma [2345-7] 06/16/2024 09:13 AM 167 mg/dL N Blood chemistry[[id number]] Glucose [Mass/volume] in Serum or Plasma [2345-7] 06/15/2024 05:33 PM 101 mg/dL N Blood chemistry[[id number]] Glucose [Mass/volume] in Serum or Plasma [2345-7] 06/15/2024 02:14 PM 121 mg/dL N Blood chemistry[[id number]] Glucose [Mass/volume] in Serum or Plasma [2345-7] 06/15/2024 01:48 PM 226 mg/dL N Blood chemistry[[id number]] Glucose [Mass/volume] in Serum or Plasma [2345-7] 06/15/2024 09:58 AM 162 mg/dL N Blood chemistry[[id number]] Glucose [Mass/volume] in Serum or Plasma [2345-7] 06/14/2024 05:40 PM 105 mg/dL N Blood chemistry[[id number]] Glucose [Mass/volume] in Serum or Plasma [2345-7] 06/14/2024 02:04 PM 89 mg/dL N Blood chemistry[[id number]] Glucose [Mass/volume] in Serum or Plasma [2345-7] 06/14/2024 01:55 PM 209 mg/dL N Blood chemistry[[id number]] Glucose [Mass/volume] in Serum or Plasma [2345-7] 06/14/2024 11:52 AM 84 mg/dL N Blood chemistry[[id number]] Glucose [Mass/volume] in Serum or Plasma [2345-7] 06/14/2024 11:20 AM 62 mg/dL N Blood chemistry[[id number]] Glucose [Mass/volume] in Serum or Plasma [2345-7] 06/14/2024 10:14 AM 183 mg/dL N Blood chemistry[[id number]] Glucose [Mass/volume] in Serum or Plasma [2345-7] 06/13/2024 06:23 PM 184 mg/dL N Blood chemistry[[id number]] Glucose [Mass/volume] in Serum or Plasma [2345-7] 06/13/2024 02:59 PM 176 mg/dL N Blood chemistry[[id number]] Glucose [Mass/volume] in Serum or Plasma [2345-7] 06/13/2024 01:17 PM 258 mg/dL N Blood chemistry[[id number]] Glucose [Mass/volume] in Serum or Plasma [2345-7] 06/13/2024 12:25 PM 169 mg/dL N Blood chemistry[[id number]] Glucose [Mass/volume] in Serum or Plasma [2345-7] 06/13/2024 11:15 AM 179 mg/dL N Blood chemistry[[id number]] Glucose [Mass/volume] in Serum or Plasma [2345-7] 06/12/2024 05:23 PM 159 mg/dL N Blood chemistry[[id number]] Glucose [Mass/volume] in Serum or Plasma [2345-7] 06/12/2024 01:22 PM 177 mg/dL N Blood chemistry[[id number]] Glucose [Mass/volume] in Serum or Plasma [2345-7] 06/12/2024 12:57 PM 263 mg/dL N Blood chemistry[[id number]] Glucose [Mass/volume] in Serum or Plasma [2345-7] 06/12/2024 11:12 AM 164 mg/dL N Blood chemistry[[id number]] Glucose [Mass/volume] in Serum or Plasma [2345-7] 06/12/2024 10:46 AM 209 mg/dL N Blood chemistry[[id number]] Glucose [Mass/volume] in Serum or Plasma [2345-7] 06/11/2024 06:13 PM 224 mg/dL N Blood chemistry[[id number]] Glucose [Mass/volume] in Serum or Plasma [2345-7] 06/11/2024 04:34 PM 67 mg/dL N Blood chemistry[[id number]] Glucose [Mass/volume] in Serum or Plasma [2345-7] 06/11/2024 01:17 PM 272 mg/dL N Blood chemistry[[id number]] Glucose [Mass/volume] in Serum or Plasma [2345-7] 06/11/2024 11:22 AM 211 mg/dL N Blood chemistry[[id number]] Glucose [Mass/volume] in Serum or Plasma [2345-7] 06/11/2024 11:13 AM 83 mg/dL N Blood chemistry[[id number]] Glucose [Mass/volume] in Serum or Plasma [2345-7] 06/10/2024 06:55 PM 206 mg/dL N Blood chemistry[[id number]] Glucose [Mass/volume] in Serum or Plasma [2345-7] 06/10/2024 01:38 PM 96 mg/dL N Blood chemistry[[id number]] Glucose [Mass/volume] in Serum or Plasma [2345-7] 06/10/2024 01:10 PM 205 mg/dL N Blood chemistry[[id number]] Glucose [Mass/volume] in Serum or Plasma [2345-7] 06/10/2024 12:50 PM 189 mg/dL N Blood chemistry[[id number]] Glucose [Mass/volume] in Serum or Plasma [2345-7] 06/09/2024 02:55 PM 178 mg/dL N Blood chemistry[[id number]] Glucose [Mass/volume] in Serum or Plasma [2345-7] 06/09/2024 02:38 PM 154 mg/dL N Blood chemistry[[id number]] Glucose [Mass/volume] in Serum or Plasma [2345-7] 06/09/2024 11:31 AM 117 mg/dL N Blood chemistry[[id number]] Glucose [Mass/volume] in Serum or Plasma [2345-7] 06/09/2024 07:30 AM 136 mg/dL N Blood chemistry[[id number]] Glucose [Mass/volume] in Serum or Plasma [2345-7] 06/08/2024 05:25 PM 143 mg/dL N Blood chemistry[[id number]] Glucose [Mass/volume] in Serum or Plasma [2345-7] 06/08/2024 01:13 PM 276 mg/dL N Blood chemistry[[id number]] Glucose [Mass/volume] in Serum or Plasma [2345-7] 06/08/2024 12:53 PM 147 mg/dL N Blood chemistry[[id number]] Glucose [Mass/volume] in Serum or Plasma [2345-7] 06/08/2024 11:11 AM 156 mg/dL N Blood chemistry[[id number]] Glucose [Mass/volume] in Serum or Plasma [2345-7] 06/08/2024 10:53 AM 177 mg/dL N Blood chemistry[[id number]] Glucose [Mass/volume] in Serum or Plasma [2345-7] 06/07/2024 04:52 PM 132 mg/dL N Blood chemistry[[id number]] Glucose [Mass/volume] in Serum or Plasma [2345-7] 06/07/2024 12:58 PM 194 mg/dL N Blood chemistry[[id number]] Glucose [Mass/volume] in Serum or Plasma [2345-7] 06/07/2024 12:16 PM 271 mg/dL N Blood chemistry[[id number]] Glucose [Mass/volume] in Serum or Plasma [2345-7] 06/07/2024 10:29 AM 207 mg/dL N Blood chemistry[[id number]] Glucose [Mass/volume] in Serum or Plasma [2345-7] 06/07/2024 09:12 AM 239 mg/dL N Blood chemistry[[id number]] Glucose [Mass/volume] in Serum or Plasma [2345-7] 06/06/2024 04:55 PM 376 mg/dL N Blood chemistry[[id number]] Glucose [Mass/volume] in Serum or Plasma [2345-7] 06/06/2024 12:51 PM 222 mg/dL N Blood chemistry[[id number]] Glucose [Mass/volume] in Serum or Plasma [2345-7] 06/06/2024 12:00 PM 385 mg/dL N Blood chemistry[[id number]] Glucose [Mass/volume] in Serum or Plasma [2345-7] 06/06/2024 09:08 AM 293 mg/dL N Blood chemistry[[id number]] Glucose [Mass/volume] in Serum or Plasma [2345-7] 06/05/2024 04:53 PM 239 mg/dL N Blood chemistry[[id number]] Glucose [Mass/volume] in Serum or Plasma [2345-7] 06/05/2024 12:10 PM 246 mg/dL N Blood chemistry[[id number]] Glucose [Mass/volume] in Serum or Plasma [2345-7] 06/05/2024 12:02 PM 311 mg/dL N Blood chemistry[[id number]] Glucose [Mass/volume] in Serum or Plasma [2345-7] 06/05/2024 09:03 AM 163 mg/dL N Glucose [Mass/volume] in Serum or Plasma [2345-7] 06/05/2024 09:03 AM 163 mg/dL N Blood chemistry[[id number]] Glucose [Mass/volume] in Serum or Plasma [2345-7] 06/04/2024 04:33 PM 134 mg/dL N Blood chemistry[[id number]] Glucose [Mass/volume] in Serum or Plasma [2345-7] 06/04/2024 03:33 PM 142 mg/dL N Blood chemistry[[id number]] Glucose [Mass/volume] in Serum or Plasma [2345-7] 06/04/2024 11:45 AM 314 mg/dL N Blood chemistry[[id number]] Glucose [Mass/volume] in Serum or Plasma [2345-7] 06/04/2024 09:16 AM 226 mg/dL N Blood chemistry[[id number]] Glucose [Mass/volume] in Serum or Plasma [2345-7] 06/03/2024 04:18 PM 202 mg/dL N Blood chemistry[[id number]] Glucose [Mass/volume] in Serum or Plasma [2345-7] 06/03/2024 12:16 PM 100 mg/dL N Blood chemistry[[id number]] Glucose [Mass/volume] in Serum or Plasma [2345-7] 06/03/2024 12:10 PM 305 mg/dL N Blood chemistry[[id number]] Glucose [Mass/volume] in Serum or Plasma [2345-7] 06/03/2024 09:34 AM 328 mg/dL N Blood chemistry[[id number]] Glucose [Mass/volume] in Serum or Plasma [2345-7] 06/02/2024 04:15 PM 270 mg/dL N Glucose [Mass/volume] in Serum or Plasma [2345-7] 06/02/2024 04:15 PM 206 mg/dL N Blood chemistry[[id number]] Glucose [Mass/volume] in Serum or Plasma [2345-7] 06/02/2024 01:31 PM 199 mg/dL N Blood chemistry[[id number]] Glucose [Mass/volume] in Serum or Plasma [2345-7] 06/02/2024 01:30 PM 199 mg/dL N Blood chemistry[[id number]] Glucose [Mass/volume] in Serum or Plasma [2345-7] 06/02/2024 12:02 PM 338 mg/dL N Blood chemistry[[id number]] Glucose [Mass/volume] in Serum or Plasma [2345-7] 06/02/2024 09:19 AM 270 mg/dL N Blood chemistry[[id number]] Glucose [Mass/volume] in Serum or Plasma [2345-7] 06/01/2024 04:26 PM 267 mg/dL N Blood chemistry[[id number]] Glucose [Mass/volume] in Serum or Plasma [2345-7] 06/01/2024 12:45 PM 178 mg/dL N Blood chemistry[[id number]] Glucose [Mass/volume] in Serum or Plasma [2345-7] 06/01/2024 12:43 PM 346 mg/dL N Blood chemistry[[id number]] Glucose [Mass/volume] in Serum or Plasma [2345-7] 06/01/2024 10:09 AM 241 mg/dL N Blood chemistry[[id number]] Glucose [Mass/volume] in Serum or Plasma [2345-7] 05/31/2024 02:16 PM 280 mg/dL N Blood chemistry[[id number]] Glucose [Mass/volume] in Serum or Plasma [2345-7] 05/31/2024 12:21 PM 266 mg/dL N Blood chemistry[[id number]] Glucose [Mass/volume] in Serum or Plasma [2345-7] 05/31/2024 11:47 AM 219 mg/dL N Blood chemistry[[id number]] Glucose [Mass/volume] in Serum or Plasma [2345-7] 05/31/2024 06:49 AM 312 mg/dL N Blood chemistry[[id number]] Glucose [Mass/volume] in Serum or Plasma [2345-7] 05/30/2024 04:15 PM 205 mg/dL N Blood chemistry[[id number]] Glucose [Mass/volume] in Serum or Plasma [2345-7] 05/30/2024 02:36 PM 251 mg/dL N Blood chemistry[[id number]] Glucose [Mass/volume] in Serum or Plasma [2345-7] 05/30/2024 10:15 AM 299 mg/dL N Blood chemistry[[id number]] Glucose [Mass/volume] in Serum or Plasma [2345-7] 05/30/2024 10:14 AM 249 mg/dL N Blood chemistry[[id number]] Glucose [Mass/volume] in Serum or Plasma [2345-7] 05/29/2024 05:57 PM 309 mg/dL N Blood chemistry[[id number]] Glucose [Mass/volume] in Serum or Plasma [2345-7] 05/29/2024 04:23 PM 182 mg/dL N Blood chemistry[[id number]] Glucose [Mass/volume] in Serum or Plasma [2345-7] 05/29/2024 12:20 PM 238 mg/dL N Blood chemistry[[id number]] Glucose [Mass/volume] in Serum or Plasma [2345-7] 05/29/2024 09:19 AM 227 mg/dL N Blood chemistry[[id number]] Glucose [Mass/volume] in Serum or Plasma [2345-7] 05/28/2024 04:28 PM 220 mg/dL N Blood chemistry[[id number]] Glucose [Mass/volume] in Serum or Plasma [2345-7] 05/28/2024 12:39 PM 302 mg/dL N Blood chemistry[[id number]] Glucose [Mass/volume] in Serum or Plasma [2345-7] 05/28/2024 11:59 AM 354 mg/dL N Blood chemistry[[id number]] Glucose [Mass/volume] in Serum or Plasma [2345-7] 05/28/2024 09:10 AM 216 mg/dL N Blood chemistry[[id number]] Glucose [Mass/volume] in Serum or Plasma [2345-7] 05/27/2024 04:06 PM 230 mg/dL N Blood chemistry[[id number]] Glucose [Mass/volume] in Serum or Plasma [2345-7] 05/27/2024 12:19 PM 322 mg/dL N Blood chemistry[[id number]] Glucose [Mass/volume] in Serum or Plasma [2345-7] 05/27/2024 12:11 PM 214 mg/dL N Blood chemistry[[id number]] Glucose [Mass/volume] in Serum or Plasma [2345-7] 05/27/2024 11:27 AM 172 mg/dL N Blood chemistry[[id number]] Glucose [Mass/volume] in Serum or Plasma [2345-7] 05/27/2024 11:26 AM 172 mg/dL N Blood chemistry[[id number]] Glucose [Mass/volume] in Serum or Plasma [2345-7] 05/26/2024 05:26 PM 167 mg/dL N Blood chemistry[[id number]] Glucose [Mass/volume] in Serum or Plasma [2345-7] 05/26/2024 05:25 PM 167 mg/dL N COVID-19 Test Viral Antigen null flavor [null] 05/26/2024 05:00 PM See note NEG COVID-19 Test Viral Antigen Blood chemistry[[id number]] Glucose [Mass/volume] in Serum or Plasma [2345-7] 05/26/2024 12:55 PM 182 mg/dL N Glucose [Mass/volume] in Serum or Plasma [2345-7] 05/26/2024 12:55 PM 182 mg/dL N Blood chemistry[[id number]] Glucose [Mass/volume] in Serum or Plasma [2345-7] 05/26/2024 12:31 PM 262 mg/dL N Blood chemistry[[id number]] Glucose [Mass/volume] in Serum or Plasma [2345-7] 05/26/2024 09:38 AM 172 mg/dL N Blood chemistry[[id number]] Glucose [Mass/volume] in Serum or Plasma [2345-7] 05/25/2024 05:02 PM 72 mg/dL N Glucose [Mass/volume] in Serum or Plasma [2345-7] 05/25/2024 05:02 PM 72 mg/dL N Glucose [Mass/volume] in Serum or Plasma [2345-7] 05/25/2024 05:02 PM 69 mg/dL N Blood chemistry[[id number]] Glucose [Mass/volume] in Serum or Plasma [2345-7] 05/25/2024 12:38 PM 213 mg/dL N Blood chemistry[[id number]] Glucose [Mass/volume] in Serum or Plasma [2345-7] 05/25/2024 10:55 AM 161 mg/dL N Blood chemistry[[id number]] Glucose [Mass/volume] in Serum or Plasma [2345-7] 05/24/2024 04:49 PM 239 mg/dL N Blood chemistry[[id number]] Glucose [Mass/volume] in Serum or Plasma [2345-7] 05/24/2024 02:25 PM 238 mg/dL N Blood chemistry[[id number]] Glucose [Mass/volume] in Serum or Plasma [2345-7] 05/24/2024 12:08 PM 260 mg/dL N Blood chemistry[[id number]] Glucose [Mass/volume] in Serum or Plasma [2345-7] 05/24/2024 11:17 AM 216 mg/dL N Blood chemistry[[id number]] Glucose [Mass/volume] in Serum or Plasma [2345-7] 05/23/2024 05:03 PM 186 mg/dL N Blood chemistry[[id number]] Glucose [Mass/volume] in Serum or Plasma [2345-7] 05/23/2024 01:10 PM 131 mg/dL N Blood chemistry[[id number]] Glucose [Mass/volume] in Serum or Plasma [2345-7] 05/23/2024 01:06 PM 211 mg/dL N Blood chemistry[[id number]] Glucose [Mass/volume] in Serum or Plasma [2345-7] 05/23/2024 09:43 AM 186 mg/dL N Blood chemistry[[id number]] Glucose [Mass/volume] in Serum or Plasma [2345-7] 05/22/2024 04:41 PM 191 mg/dL N Blood chemistry[[id number]] Glucose [Mass/volume] in Serum or Plasma [2345-7] 05/22/2024 02:08 PM 208 mg/dL N Blood chemistry[[id number]] Glucose [Mass/volume] in Serum or Plasma [2345-7] 05/22/2024 11:41 AM 348 mg/dL N Blood chemistry[[id number]] Glucose [Mass/volume] in Serum or Plasma [2345-7] 05/22/2024 09:24 AM 294 mg/dL N Glucose [Mass/volume] in Serum or Plasma [2345-7] 05/22/2024 09:24 AM 294 mg/dL N Blood chemistry[[id number]] Glucose [Mass/volume] in Serum or Plasma [2345-7] 05/21/2024 04:08 PM 236 mg/dL N Blood chemistry[[id number]] Glucose [Mass/volume] in Serum or Plasma [2345-7] 05/21/2024 02:48 PM 179 mg/dL N Blood chemistry[[id number]] Glucose [Mass/volume] in Serum or Plasma [2345-7] 05/21/2024 11:43 AM 255 mg/dL N Blood chemistry[[id number]] Glucose [Mass/volume] in Serum or Plasma [2345-7] 05/21/2024 09:14 AM 276 mg/dL N Blood chemistry[[id number]] Glucose [Mass/volume] in Serum or Plasma [2345-7] 05/20/2024 05:16 PM 198 mg/dL N Glucose [Mass/volume] in Serum or Plasma [2345-7] 05/20/2024 05:16 PM 198 mg/dL N Blood chemistry[[id number]] Glucose [Mass/volume] in Serum or Plasma [2345-7] 05/20/2024 12:09 PM 195 mg/dL N Blood chemistry[[id number]] Glucose [Mass/volume] in Serum or Plasma [2345-7] 05/20/2024 12:07 PM 81 mg/dL N Blood chemistry[[id number]] Glucose [Mass/volume] in Serum or Plasma [2345-7] 05/20/2024 09:04 AM 201 mg/dL N COVID-19 Test Viral Antigen null flavor [null] 05/19/2024 05:00 PM See note NEG COVID-19 Test Viral Antigen Blood chemistry[[id number]] Glucose [Mass/volume] in Serum or Plasma [2345-7] 05/19/2024 04:35 PM 260 mg/dL N Blood chemistry[[id number]] Glucose [Mass/volume] in Serum or Plasma [2345-7] 05/19/2024 03:22 PM 217 mg/dL N Glucose [Mass/volume] in Serum or Plasma [2345-7] 05/19/2024 03:22 PM 217 mg/dL N Blood chemistry[[id number]] Glucose [Mass/volume] in Serum or Plasma [2345-7] 05/19/2024 12:09 PM 324 mg/dL N Blood chemistry[[id number]] Glucose [Mass/volume] in Serum or Plasma [2345-7] 05/19/2024 08:16 AM 245 mg/dL N Blood chemistry[[id number]] Glucose [Mass/volume] in Serum or Plasma [2345-7] 05/19/2024 08:14 AM 245 mg/dL N Blood chemistry[[id number]] Glucose [Mass/volume] in Serum or Plasma [2345-7] 05/18/2024 04:53 PM 84 mg/dL N Blood chemistry[[id number]] Glucose [Mass/volume] in Serum or Plasma [2345-7] 05/18/2024 12:58 PM 81 mg/dL N Blood chemistry[[id number]] Glucose [Mass/volume] in Serum or Plasma [2345-7] 05/18/2024 12:32 PM 170 mg/dL N Blood chemistry[[id number]] Glucose [Mass/volume] in Serum or Plasma [2345-7] 05/18/2024 09:48 AM 171 mg/dL N Blood chemistry[[id number]] Glucose [Mass/volume] in Serum or Plasma [2345-7] 05/17/2024 04:40 PM 93 mg/dL N Blood chemistry[[id number]] Glucose [Mass/volume] in Serum or Plasma [2345-7] 05/17/2024 12:05 PM 148 mg/dL N Glucose [Mass/volume] in Serum or Plasma [2345-7] 05/17/2024 12:05 PM 83 mg/dL N Blood chemistry[[id number]] Glucose [Mass/volume] in Serum or Plasma [2345-7] 05/17/2024 09:14 AM 110 mg/dL N Blood chemistry[[id number]] Glucose [Mass/volume] in Serum or Plasma [2345-7] 05/16/2024 05:27 PM 141 mg/dL N Blood chemistry[[id number]] Glucose [Mass/volume] in Serum or Plasma [2345-7] 05/16/2024 01:02 PM 98 mg/dL N Blood chemistry[[id number]] Glucose [Mass/volume] in Serum or Plasma [2345-7] 05/16/2024 12:38 PM 247 mg/dL N Blood chemistry[[id number]] Glucose [Mass/volume] in Serum or Plasma [2345-7] 05/16/2024 10:02 AM 145 mg/dL N Blood chemistry[[id number]] Glucose [Mass/volume] in Serum or Plasma [2345-7] 05/16/2024 06:05 AM 291 mg/dL N Blood chemistry[[id number]] Glucose [Mass/volume] in Serum or Plasma [2345-7] 05/15/2024 02:47 PM 214 mg/dL N Blood chemistry[[id number]] Glucose [Mass/volume] in Serum or Plasma [2345-7] 05/15/2024 11:05 AM 190 mg/dL N Blood chemistry[[id number]] Glucose [Mass/volume] in Serum or Plasma [2345-7] 05/15/2024 06:49 AM 327 mg/dL N Blood chemistry[[id number]] Glucose [Mass/volume] in Serum or Plasma [2345-7] 05/14/2024 05:12 PM 245 mg/dL N Blood chemistry[[id number]] Glucose [Mass/volume] in Serum or Plasma [2345-7] 05/14/2024 05:11 PM 245 mg/dL N Blood chemistry[[id number]] Glucose [Mass/volume] in Serum or Plasma [2345-7] 05/14/2024 01:09 PM 296 mg/dL N Blood chemistry[[id number]] Glucose [Mass/volume] in Serum or Plasma [2345-7] 05/14/2024 12:00 PM 381 mg/dL N Blood chemistry[[id number]] Glucose [Mass/volume] in Serum or Plasma [2345-7] 05/14/2024 11:23 AM 337 mg/dL N Blood chemistry[[id number]] Glucose [Mass/volume] in Serum or Plasma [2345-7] 05/13/2024 05:26 PM 290 mg/dL N Blood chemistry[[id number]] Glucose [Mass/volume] in Serum or Plasma [2345-7] 05/13/2024 11:51 AM 229 mg/dL N Blood chemistry[[id number]] Glucose [Mass/volume] in Serum or Plasma [2345-7] 05/13/2024 08:41 AM 268 mg/dL N Blood chemistry[[id number]] Glucose [Mass/volume] in Serum or Plasma [2345-7] 05/13/2024 06:15 AM 229 mg/dL N COVID-19 Test Viral Antigen null flavor [null] 05/12/2024 05:00 PM See note NEG COVID-19 Test Viral Antigen Blood chemistry[[id number]] Glucose [Mass/volume] in Serum or Plasma [2345-7] 05/12/2024 05:00 PM 279 mg/dL N Blood chemistry[[id number]] Glucose [Mass/volume] in Serum or Plasma [2345-7] 05/12/2024 02:21 PM 178 mg/dL N Blood chemistry[[id number]] Glucose [Mass/volume] in Serum or Plasma [2345-7] 05/12/2024 10:42 AM 212 mg/dL N Blood chemistry[[id number]] Glucose [Mass/volume] in Serum or Plasma [2345-7] 05/11/2024 04:50 PM 137 mg/dL N Blood chemistry[[id number]] Glucose [Mass/volume] in Serum or Plasma [2345-7] 05/11/2024 01:27 PM 209 mg/dL N Blood chemistry[[id number]] Glucose [Mass/volume] in Serum or Plasma [2345-7] 05/11/2024 12:06 PM 279 mg/dL N Blood chemistry[[id number]] Glucose [Mass/volume] in Serum or Plasma [2345-7] 05/11/2024 08:55 AM 164 mg/dL N Blood chemistry[[id number]] Glucose [Mass/volume] in Serum or Plasma [2345-7] 05/10/2024 05:36 PM 320 mg/dL N Blood chemistry[[id number]] Glucose [Mass/volume] in Serum or Plasma [2345-7] 05/10/2024 01:32 PM 279 mg/dL N Blood chemistry[[id number]] Glucose [Mass/volume] in Serum or Plasma [2345-7] 05/10/2024 12:57 PM 228 mg/dL N Blood chemistry[[id number]] Glucose [Mass/volume] in Serum or Plasma [2345-7] 05/10/2024 11:27 AM 210 mg/dL N Blood chemistry[[id number]] Glucose [Mass/volume] in Serum or Plasma [2345-7] 05/09/2024 05:26 PM 308 mg/dL N Blood chemistry[[id number]] Glucose [Mass/volume] in Serum or Plasma [2345-7] 05/09/2024 02:43 PM 296 mg/dL N Blood chemistry[[id number]] Glucose [Mass/volume] in Serum or Plasma [2345-7] 05/09/2024 01:18 PM 313 mg/dL N Blood chemistry[[id number]] Glucose [Mass/volume] in Serum or Plasma [2345-7] 05/09/2024 11:19 AM 344 mg/dL N Blood chemistry[[id number]] Glucose [Mass/volume] in Serum or Plasma [2345-7] 05/08/2024 03:46 PM 277 mg/dL N Blood chemistry[[id number]] Glucose [Mass/volume] in Serum or Plasma [2345-7] 05/08/2024 02:31 PM 188 mg/dL N Blood chemistry[[id number]] Glucose [Mass/volume] in Serum or Plasma [2345-7] 05/08/2024 11:49 AM 312 mg/dL N Blood chemistry[[id number]] Glucose [Mass/volume] in Serum or Plasma [2345-7] 05/08/2024 10:13 AM 262 mg/dL N Blood chemistry[[id number]] Glucose [Mass/volume] in Serum or Plasma [2345-7] 05/07/2024 04:14 PM 249 mg/dL N Blood chemistry[[id number]] Glucose [Mass/volume] in Serum or Plasma [2345-7] 05/07/2024 12:21 PM 255 mg/dL N Blood chemistry[[id number]] Glucose [Mass/volume] in Serum or Plasma [2345-7] 05/07/2024 12:14 PM 237 mg/dL N Blood chemistry[[id number]] Glucose [Mass/volume] in Serum or Plasma [2345-7] 05/07/2024 08:58 AM 352 mg/dL N Blood chemistry[[id number]] Glucose [Mass/volume] in Serum or Plasma [2345-7] 05/06/2024 05:47 PM 247 mg/dL N Blood chemistry[[id number]] Glucose [Mass/volume] in Serum or Plasma [2345-7] 05/06/2024 12:43 PM 199 mg/dL N Blood chemistry[[id number]] Glucose [Mass/volume] in Serum or Plasma [2345-7] 05/06/2024 12:00 PM 199 mg/dL N Blood chemistry[[id number]] Glucose [Mass/volume] in Serum or Plasma [2345-7] 05/06/2024 10:08 AM 238 mg/dL N Glucose [Mass/volume] in Serum or Plasma [2345-7] 05/06/2024 10:08 AM 238 mg/dL N Blood chemistry[[id number]] Glucose [Mass/volume] in Serum or Plasma [2345-7] 05/05/2024 05:36 PM 129 mg/dL N Blood chemistry[[id number]] Glucose [Mass/volume] in Serum or Plasma [2345-7] 05/05/2024 05:35 PM 129 mg/dL N COVID-19 Test Viral Antigen null flavor [null] 05/05/2024 05:00 PM See note NEG COVID-19 Test Viral Antigen Blood chemistry[[id number]] Glucose [Mass/volume] in Serum or Plasma [2345-7] 05/05/2024 12:56 PM 221 mg/dL N Blood chemistry[[id number]] Glucose [Mass/volume] in Serum or Plasma [2345-7] 05/05/2024 12:36 PM 186 mg/dL N Blood chemistry[[id number]] Glucose [Mass/volume] in Serum or Plasma [2345-7] 05/05/2024 09:17 AM 216 mg/dL N Blood chemistry[[id number]] Glucose [Mass/volume] in Serum or Plasma [2345-7] 05/04/2024 04:30 PM 233 mg/dL N Blood chemistry[[id number]] Glucose [Mass/volume] in Serum or Plasma [2345-7] 05/04/2024 12:29 PM 207 mg/dL N Blood chemistry[[id number]] Glucose [Mass/volume] in Serum or Plasma [2345-7] 05/04/2024 12:18 PM 252 mg/dL N Blood chemistry[[id number]] Glucose [Mass/volume] in Serum or Plasma [2345-7] 05/04/2024 09:29 AM 189 mg/dL N Blood chemistry[[id number]] Glucose [Mass/volume] in Serum or Plasma [2345-7] 05/03/2024 04:06 PM 194 mg/dL N Blood chemistry[[id number]] Glucose [Mass/volume] in Serum or Plasma [2345-7] 05/03/2024 01:43 PM 265 mg/dL N Blood chemistry[[id number]] Glucose [Mass/volume] in Serum or Plasma [2345-7] 05/03/2024 12:04 PM 257 mg/dL N Blood chemistry[[id number]] Glucose [Mass/volume] in Serum or Plasma [2345-7] 05/03/2024 09:22 AM 232 mg/dL N Blood chemistry[[id number]] Glucose [Mass/volume] in Serum or Plasma [2345-7] 05/02/2024 05:12 PM 78 mg/dL N Blood chemistry[[id number]] Glucose [Mass/volume] in Serum or Plasma [2345-7] 05/02/2024 12:44 PM 155 mg/dL N Blood chemistry[[id number]] Glucose [Mass/volume] in Serum or Plasma [2345-7] 05/02/2024 12:33 PM 205 mg/dL N Blood chemistry[[id number]] Glucose [Mass/volume] in Serum or Plasma [2345-7] 05/02/2024 11:12 AM 210 mg/dL N Blood chemistry[[id number]] Glucose [Mass/volume] in Serum or Plasma [2345-7] 05/01/2024 05:55 PM 105 mg/dL N Blood chemistry[[id number]] Glucose [Mass/volume] in Serum or Plasma [2345-7] 05/01/2024 01:00 PM 118 mg/dL N Blood chemistry[[id number]] Glucose [Mass/volume] in Serum or Plasma [2345-7] 05/01/2024 11:36 AM 263 mg/dL N Blood chemistry[[id number]] Glucose [Mass/volume] in Serum or Plasma [2345-7] 05/01/2024 09:58 AM 139 mg/dL N Blood chemistry[[id number]] Glucose [Mass/volume] in Serum or Plasma [2345-7] 04/30/2024 04:55 PM 73 mg/dL N Blood chemistry[[id number]] Glucose [Mass/volume] in Serum or Plasma [2345-7] 04/30/2024 12:36 PM 127 mg/dL N Glucose [Mass/volume] in Serum or Plasma [2345-7] 04/30/2024 12:36 PM 127 mg/dL N Blood chemistry[[id number]] Glucose [Mass/volume] in Serum or Plasma [2345-7] 04/30/2024 12:02 PM 234 mg/dL N Blood chemistry[[id number]] Glucose [Mass/volume] in Serum or Plasma [2345-7] 04/30/2024 09:36 AM 194 mg/dL N Blood chemistry[[id number]] Glucose [Mass/volume] in Serum or Plasma [2345-7] 04/29/2024 12:43 PM 86 mg/dL N Glucose [Mass/volume] in Serum or Plasma [2345-7] 04/29/2024 12:43 PM 86 mg/dL N Blood chemistry[[id number]] Glucose [Mass/volume] in Serum or Plasma [2345-7] 04/29/2024 12:06 PM 240 mg/dL N Blood chemistry[[id number]] Glucose [Mass/volume] in Serum or Plasma [2345-7] 04/29/2024 09:37 AM 226 mg/dL N Blood chemistry[[id number]] Glucose [Mass/volume] in Serum or Plasma [2345-7] 04/29/2024 06:07 AM 175 mg/dL N COVID-19 Test Viral Antigen null flavor [null] 2024 05:00 PM See note NEG COVID-19 Test Viral Antigen Blood chemistry[[id number]] Glucose [Mass/volume] in Serum or Plasma [2345-7] 2024 03:01 PM 154 mg/dL N Blood chemistry[[id number]] Glucose [Mass/volume] in Serum or Plasma [2345-7] 2024 03:00 PM 154 mg/dL N Blood chemistry[[id number]] Glucose [Mass/volume] in Serum or Plasma [2345-7] 2024 11:42 AM 240 mg/dL N Blood chemistry[[id number]] Glucose [Mass/volume] in Serum or Plasma [2345-7] 2024 10:32 AM 233 mg/dL N Blood chemistry[[id number]] Glucose [Mass/volume] in Serum or Plasma [2345-7] 2024 08:23 AM 154 mg/dL N Glucose [Mass/volume] in Serum or Plasma [2345-7] 2024 08:23 AM 96 mg/dL N Blood chemistry[[id number]] Glucose [Mass/volume] in Serum or Plasma [2345-7] 04/27/2024 05:07 PM 104 mg/dL N Blood chemistry[[id number]] Glucose [Mass/volume] in Serum or Plasma [2345-7] 04/27/2024 02:24 PM 87 mg/dL N Blood chemistry[[id number]] Glucose [Mass/volume] in Serum or Plasma [2345-7] 04/27/2024 01:11 PM 178 mg/dL N Blood chemistry[[id number]] Glucose [Mass/volume] in Serum or Plasma [2345-7] 04/27/2024 11:09 AM 105 mg/dL N Blood chemistry[[id number]] Glucose [Mass/volume] in Serum or Plasma [2345-7] 04/26/2024 05:46 PM 117 mg/dL N Blood chemistry[[id number]] Glucose [Mass/volume] in Serum or Plasma [2345-7] 04/26/2024 03:47 PM 126 mg/dL N Blood chemistry[[id number]] Glucose [Mass/volume] in Serum or Plasma [2345-7] 04/26/2024 01:47 PM 213 mg/dL N Blood chemistry[[id number]] Glucose [Mass/volume] in Serum or Plasma [2345-7] 04/26/2024 09:28 AM 175 mg/dL N Blood chemistry[[id number]] Glucose [Mass/volume] in Serum or Plasma [2345-7] 04/25/2024 04:06 PM 208 mg/dL N Blood chemistry[[id number]] Glucose [Mass/volume] in Serum or Plasma [2345-7] 04/25/2024 02:07 PM 188 mg/dL N Blood chemistry[[id number]] Glucose [Mass/volume] in Serum or Plasma [2345-7] 04/25/2024 12:33 PM 336 mg/dL N Blood chemistry[[id number]] Glucose [Mass/volume] in Serum or Plasma [2345-7] 04/25/2024 10:24 AM 233 mg/dL N Blood chemistry[[id number]] Glucose [Mass/volume] in Serum or Plasma [2345-7] 04/24/2024 04:58 PM 223 mg/dL N Blood chemistry[[id number]] Glucose [Mass/volume] in Serum or Plasma [2345-7] 04/24/2024 02:30 PM 216 mg/dL N Blood chemistry[[id number]] Glucose [Mass/volume] in Serum or Plasma [2345-7] 04/24/2024 12:17 PM 216 mg/dL N Blood chemistry[[id number]] Glucose [Mass/volume] in Serum or Plasma [2345-7] 04/24/2024 12:10 PM 315 mg/dL N Blood chemistry[[id number]] Glucose [Mass/volume] in Serum or Plasma [2345-7] 04/24/2024 10:07 AM 275 mg/dL N Blood chemistry[[id number]] Glucose [Mass/volume] in Serum or Plasma [2345-7] 04/23/2024 04:04 PM 55 mg/dL N Blood chemistry[[id number]] Glucose [Mass/volume] in Serum or Plasma [2345-7] 04/23/2024 12:36 PM 82 mg/dL N Blood chemistry[[id number]] Glucose [Mass/volume] in Serum or Plasma [2345-7] 04/23/2024 11:44 AM 194 mg/dL N Blood chemistry[[id number]] Glucose [Mass/volume] in Serum or Plasma [2345-7] 04/23/2024 09:20 AM 120 mg/dL N Blood chemistry[[id number]] Glucose [Mass/volume] in Serum or Plasma [2345-7] 04/23/2024 07:34 AM 109 mg/dL N Blood chemistry[[id number]] Glucose [Mass/volume] in Serum or Plasma [2345-7] 04/22/2024 04:32 PM 94 mg/dL N Blood chemistry[[id number]] Glucose [Mass/volume] in Serum or Plasma [2345-7] 04/22/2024 02:29 PM 129 mg/dL N Blood chemistry[[id number]] Glucose [Mass/volume] in Serum or Plasma [2345-7] 04/22/2024 11:54 AM 205 mg/dL N Blood chemistry[[id number]] Glucose [Mass/volume] in Serum or Plasma [2345-7] 04/22/2024 10:01 AM 152 mg/dL N COVID-19 Test Viral Antigen null flavor [null] 04/21/2024 05:00 PM See note NEG COVID-19 Test Viral Antigen Blood chemistry[[id number]] Glucose [Mass/volume] in Serum or Plasma [2345-7] 04/21/2024 04:59 PM 156 mg/dL N Glucose [Mass/volume] in Serum or Plasma [2345-7] 04/21/2024 04:59 PM 156 mg/dL N Blood chemistry[[id number]] Glucose [Mass/volume] in Serum or Plasma [2345-7] 04/21/2024 02:14 PM 237 mg/dL N Blood chemistry[[id number]] Glucose [Mass/volume] in Serum or Plasma [2345-7] 04/21/2024 12:42 PM 435 mg/dL N Blood chemistry[[id number]] Glucose [Mass/volume] in Serum or Plasma [2345-7] 04/21/2024 09:38 AM 202 mg/dL N Blood chemistry[[id number]] Glucose [Mass/volume] in Serum or Plasma [2345-7] 04/21/2024 09:37 AM 202 mg/dL N Blood chemistry[[id number]] Glucose [Mass/volume] in Serum or Plasma [2345-7] 04/20/2024 03:59 PM 114 mg/dL N Blood chemistry[[id number]] Glucose [Mass/volume] in Serum or Plasma [2345-7] 04/20/2024 12:17 PM 189 mg/dL N Blood chemistry[[id number]] Glucose [Mass/volume] in Serum or Plasma [2345-7] 04/20/2024 12:13 PM 150 mg/dL N Blood chemistry[[id number]] Glucose [Mass/volume] in Serum or Plasma [2345-7] 04/20/2024 09:23 AM 109 mg/dL N Blood chemistry[[id number]] Glucose [Mass/volume] in Serum or Plasma [2345-7] 04/19/2024 12:46 PM 203 mg/dL N Blood chemistry[[id number]] Glucose [Mass/volume] in Serum or Plasma [2345-7] 04/19/2024 12:44 PM 76 mg/dL N Blood chemistry[[id number]] Glucose [Mass/volume] in Serum or Plasma [2345-7] 04/19/2024 11:02 AM 114 mg/dL N Blood chemistry[[id number]] Glucose [Mass/volume] in Serum or Plasma [2345-7] 04/19/2024 06:58 AM 74 mg/dL N Blood chemistry[[id number]] Glucose [Mass/volume] in Serum or Plasma [2345-7] 04/18/2024 05:27 PM 81 mg/dL N Blood chemistry[[id number]] Glucose [Mass/volume] in Serum or Plasma [2345-7] 04/18/2024 12:44 PM 71 mg/dL N Blood chemistry[[id number]] Glucose [Mass/volume] in Serum or Plasma [2345-7] 04/18/2024 12:24 PM 130 mg/dL N Blood chemistry[[id number]] Glucose [Mass/volume] in Serum or Plasma [2345-7] 04/18/2024 09:50 AM 110 mg/dL N Blood chemistry[[id number]] Glucose [Mass/volume] in Serum or Plasma [2345-7] 04/17/2024 05:04 PM 71 mg/dL N Blood chemistry[[id number]] Glucose [Mass/volume] in Serum or Plasma [2345-7] 04/17/2024 12:31 PM 111 mg/dL N Blood chemistry[[id number]] Glucose [Mass/volume] in Serum or Plasma [2345-7] 04/17/2024 12:11 PM 225 mg/dL N Blood chemistry[[id number]] Glucose [Mass/volume] in Serum or Plasma [2345-7] [...] h 11/19 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 [...] 3 readings subcutane ous 1.0 11/19 Active [facility]uv[facility] (Lutein/Zeaxan thin, [place] 3, Zinc, Vitamins) [id number] capsule ([facility] (Lutein/Zeaxan thin, [place] 3, Zinc, Vitamins)) 1, oral, At Bedtime, [...] Active Afluria Qd 2022-(3yr up)(PF) (flu vac [id number] 36mos up(pf)) 60 mcg (15 mcg x 4)/0.5 mL syringe (Afluria Qd 2022-(3yr up)(PF) (flu vac [id number] 36mos up(pf))) 0.5ml, intramuscular , Once - One Time, clinical indication: flu vaccination intramusc ular 1.0 11/18 Active Afluria Quad (6mo up) (flu vaccine [id number](6mos up)) 60 mcg (15 mcg x 4)/0.5 m suspension (Afluria Quad (6mo up) (flu vaccine [id number](6mos up))) 0.5ml, intramuscular , Once - One Time intramusc ular 1.0 11/18 Active Afluria Quad (6mo up) (flu vaccine [id number](6mos up)) 60 mcg (15 mcg x 4)/0.5 mL suspension (Afluria Quad (6mo up) (flu vaccine [id number](6mos up))) 0.5 ml, intramuscular , Once - [...] the morning after admission intraderm al 1.0 09/01/ 2021 04/15 /2025 Active Tubersol (tuberculin ppd) 5 tub. unit [...] can't take p/o, if no results from MOM rectal 1.0 1.0 d 2024 Active Dulcolax (bisacodyl) (bisacodyl) 5 mg tablet,delayed release (DR/EC) (Dulcolax (bisacodyl) (bisacodyl)) 2 tabs/10mg, oral, Once A Day - PRN, Give if no results from MOM oral 1.0 1.0 d 2024 Active Eliquis [...] daysDO NOT GIVE TO RENAL PATIENTS--GO TO DULCOLAX ORDERS oral 1.0 72.0 h 2024 Active Novolog [...] Active Ocuvite with Lutein (vit a,c and h-osrygu-tuduu als) 300 mcg-200 mg-27 mg-2 mg tablet (Ocuvite with Lutein (vit a,c and f-nsiwvt-sotmq als)) 1 tab, oral, At Bedtime oral [...] PRN, For pain/fever oral 1.0 6.0 h 04/24 Active cyanocobalamin (vitamin B-12) 250 mcg tablet (cyanocobalami n (vitamin B-12)) 1 tab, oral, Once A Day oral 1.0 1.0 d 04/24 Active Eliquis (apixaban) 5 mg tablet (Eliquis (apixaban)) 1 tab, oral, Twice A Day oral 1.0 12.0 h 04/24 Active I-Chandrakant (vit a,c and z-bjjylj-gmzte als) 300 mcg-200 mg-27 mg-2 mg tablet (I-Chandrakant (vit a,c and p-egudaa-yxiie als)) 1 tab, oral, Once A Day, TI for ocuvite oral 1.0 1.0 d 04/24 Active insulin aspart U-100 100 unit/mL (3 [...] than 400, call MD. subcutane ous 1.0 04/24 Active metoprolol tartrate 50 mg tablet (metoprolol tartrate) 1 tab, oral, Twice A Day oral 1.0 12.0 h 04/24 Active nystatin 100,000 unit/gram cream (nystatin) 1 arianna, topical, Every Shift, Apply to ximena and buttocks area. topical 1.0 8.0 h 04/24 Active ondansetron HCl 4 mg tablet (ondansetron HCl) 1 tab, oral, Every 6 Hours - PRN, For nausea/vomiti ng, TI for ODT oral 1.0 6.0 h 04/24 Active silver sulfadiazine 1 % cream (silver sulfadiazine) 1 arianna, topical, Every Shift topical 1.0 8.0 h 04/24 Active tramadol 50 mg tablet (tramadol) 1 tab, oral, Every 6 Hours - PRN, For pain, exempt R52 oral 1.0 6.0 h 04/24 Active acetaminophen 325 mg tablet (acetaminophen ) [...] 04/03 Active Eye Health Vitamin-Minera l (vit c,e-wj-vtdhu-l utein-zeaxan) 250-90-10-1 mg capsule (Eye Health Vitamin-Minera l (vit c,n-ua-lyway-l utein-zeaxan)) 1 cap, oral, Once A Day, TI for ocuvite oral 1.0 1.0 d 04/06 Active I-Chandrakant (vit a,c and q-vypphq-erkpv als) 300 mcg-200 mg-27 mg-2 mg tablet (I-Chandrakant (vit a,c and c-yaoeoi-eaclz als)) 1 tab, oral, Once A Day, [...] R52 oral 1.0 6.0 h 04/03 Active acetaminophen 325 mg tablet (acetaminophen ) 2 tabs (650 mg), oral, Every 6 Hours - PRN, for pain or fever oral 1.0 6.0 h 2024 Active cyanocobalamin (vitamin B-12) 250 mcg tablet (cyanocobalami n (vitamin B-12)) 1 tab, oral, Once A Day oral 1.0 1.0 d 2024 Active Eliquis (apixaban) 5 mg tablet (Eliquis (apixaban)) 1 tab, oral, Twice A Day oral 1.0 12.0 h 2024 Active I-Chandrakant (vit a,c and m-lbvyxf-ukrpx als) 300 mcg-200 mg-27 mg-2 mg tablet (I-Chandrakant (vit a,c and w-drvoje-khebg als)) 1 tab, oral, Once A Day, TI for I-CHANDRAKANT oral 1.0 1.0 d 2024 Active insulin [...] 100,000 unit/gram cream (nystatin) 1 arianna, topical, Twice A Day, apply to ximena and buttocks area topical 1.0 12.0 h 2024 Active ondansetron HCl 4 mg tablet (ondansetron HCl) 1 tab, oral, Every 6 Hours - PRN, N/V oral 1.0 6.0 h 2024 Active silver sulfadiazine 1 % cream (silver sulfadiazine) 1 arianna, topical, Twice A Day topical 1.0 12.0 h 2024 Active tramadol 50 mg tablet (tramadol) 1 tab, oral, Every 6 Hours - PRN, for pain, exempt R52 oral 1.0 6.0 h 2024 Active Vital Signs Date Vital [...] 66 /min 07/10/2024 12:49 PM Body Weight (26702-6) 203.8 [lb_av ] Body Mass Index (17078-0) 30.98 kg/m2 07/10/2024 07:02 AM Heart Rate (8867-4) 70 /min 07/09/2024 05:11 PM Body Weight (48807-0) 201.4 [lb_av ] Body Mass Index (05948-7) 30.62 kg/m2 07/09/2024 10:09 AM Temperature (8310-5) 98.5 [degF] Oxygen Saturation (40371-7) 98 % Respiratory Rate (9279-1) 18 /min Heart Rate (8867-4) 59 /min 07/09/2024 09:54 AM Heart Rate (8867-4) 59 /min 07/09/2024 08:42 AM Body Weight (52357-4) 201.8 [lb_av ] Body Mass Index (45958-8) 30.68 kg/m2 07/08/2024 01:48 PM Body Weight (52877-9) 201.7 [lb_av ] Body Mass Index (07829-9) 30.67 kg/m2 07/07/2024 04:58 PM Body Weight (18090-6) 201.8 [lb_av ] Body Mass Index (22994-8) 30.68 kg/m2 07/06/2024 03:25 PM Body Weight (62016-2) 200.4 [lb_av ] Body Mass Index (75640-3) 30.47 kg/m2 07/02/2024 09:51 AM Temperature (8310-5) 98 [degF] Oxygen Saturation (19763-1) 92 % Respiratory Rate (9279-1) 17 /min 06/25/2024 07:21 AM Body Weight (99186-0) 204.6 [lb_av ] Body Mass Index (35887-6) 31.11 kg/m2 06/18/2024 11:23 AM Body Weight (91424-8) 201.4 [lb_av ] Body Mass Index (67953-9) 30.62 kg/m2 06/18/2024 10:10 AM Temperature (8310-5) 97.8 [degF] Oxygen Saturation (11121-6) 94 % Respiratory Rate (9279-1) 19 /min 06/11/2024 10:34 AM Temperature (8310-5) 98.5 [degF] Oxygen Saturation (45969-3) 94 % Respiratory Rate (9279-1) 19 /min Body Weight (51875-6) 202 [lb_av] Body Mass Index (27548-2) 30.71 kg/m2 06/10/2024 04:56 PM Body Weight (18960-9) 198.8 [lb_av ] Body Mass Index (88610-5) 30.22 kg/m2 06/09/2024 08:38 PM Body Weight (70276-7) 198.8 [lb_av ] Body Mass Index (15571-1) 30.22 kg/m2 06/06/2024 12:30 PM Body Weight (03036-6) 194.6 [lb_av ] Body Mass Index (54867-1) 29.59 kg/m2 06/05/2024 07:48 PM Temperature (8310-5) 98.1 [degF] 06/05/2024 08:23 AM Temperature (8310-5) 98 [degF] 06/04/2024 07:45 PM Temperature (8310-5) 99 [degF] 06/04/2024 01:53 PM Temperature (8310-5) 98 [degF] 06/04/2024 11:55 AM Temperature (8310-5) 97.8 [degF] Oxygen Saturation (34898-6) 95 % Respiratory Rate (9279-1) 17 /min 05/28/2024 10:43 AM Body Weight (55619-1) 203.6 [lb_av ] Body Mass Index (17270-9) 30.95 kg/m2 05/28/2024 07:55 AM Temperature (8310-5) 98.1 [degF] Oxygen Saturation (33597-9) 94 % Respiratory Rate (9279-1) 18 /min 05/21/2024 10:42 AM Oxygen Saturation (32992-2) 95 % Respiratory Rate (9279-1) 17 /min Body Weight (20429-2) 202.4 [lb_av] Body Mass Index (16311-2) 30.77 kg/m2 05/15/2024 07:59 PM Oxygen Saturation (39531-5) 98 % Respiratory Rate (9279-1) 16 /min 05/14/2024 10:22 AM Body Weight (97350-4) 198.6 [lb_av ] Body Mass Index (18808-4) 30.19 kg/m2 05/14/2024 10:18 AM Oxygen Saturation (70157-1) 95 % Respiratory Rate (9279-1) 18 /min 05/07/2024 05:42 PM Body Weight (75877-7) 201.2 [lb_av ] Body Mass Index (27919-5) 30.59 kg/m2 05/07/2024 08:12 AM Oxygen Saturation (78984-1) 98 % Respiratory Rate (9279-1) 20 /min 05/06/2024 10:53 AM Body Weight (05549-6) 202 [lb_av] Body Mass Index (50829-6) 30.71 kg/m2 05/04/2024 11:36 AM Body Weight (40897-3) 201.4 [lb_av ] Body Mass Index (95193-2) 30.62 kg/m2 05/03/2024 12:09 PM Body Weight (32697-1) 200 [lb_av] Body Mass Index (17207-2) 30.41 kg/m2 05/02/2024 06:12 PM Body Weight (07634-8) 200.8 [lb_av ] Body Mass Index (56754-2) 30.53 kg/m2 04/30/2024 08:08 AM Body Weight (55929-9) 201 [lb_av] Body Mass Index (48288-7) 30.56 kg/m2 04/23/2024 07:36 AM Body Weight (28314-7) 203.8 [lb_av ] Body Mass Index (35237-2) 30.98 kg/m2 04/08/2021 11:56 AM Body Height [...] AM Temperature (8310-5) 98.9 [degF] Oxygen Saturation (49145-9) 96 % Respiratory Rate (9279-1) 19 /min [...] AM Temperature (8310-5) 98.2 [degF] Oxygen Saturation (42854-6) 96 % Respiratory Rate (9279-1) 20 /min [...] PM Temperature (8310-5) 98 [degF] Oxygen Saturation (64193-0) 93 % Respiratory Rate (9279-1) 19 /min Heart Rate (8867-4) 80 /min Blood Pressure Systolic (8480-6) 119 mm[Hg] Blood Pressure Diastolic (8462-4) 63 mm[Hg] 08/06/2024 12:34 PM Body Weight (16458-4) 188.2 [lb_av ] Body Mass Index (60542-3) 28.61 kg/m2 08/06/2024 07:23 AM Heart Rate (8867-4) 65 /min Blood Pressure Systolic (8480-6) 139 mm[Hg] Blood Pressure Diastolic (8462-4) 65 mm[Hg] 08/06/2024 05:12 AM Blood Pressure Systolic (8480-6) 1 47 mm[Hg] Blood Pressure Diastolic (8462-4) 74 mm[Hg] 08/05/2024 06:54 PM Blood Pressure Systolic (8480-6) 1 36 mm[Hg] Blood Pressure Diastolic (8462-4) 74 mm[Hg] 08/07/2024 04:28 PM Body Weight (32561-4) 188.5 [lb_av ] Body Mass Index (90275-6) 28.66 kg/m2 08/07/2024 04:26 PM Blood Pressure [...] 74 mm[Hg] 08/08/2024 05:00 PM Body Weight (54698-9) 191 [lb_av] Body Mass Index (16947-9) 29.04 kg/m2 08/08/2024 02:20 PM Blood Pressure [...] 66 mm[Hg] 08/09/2024 04:11 PM Body Weight (15889-8) 193.6 [lb_av ] Body Mass Index (26596-0) 29.43 kg/m2 08/10/2024 10:47 PM Blood Pressure [...] 62 mm[Hg] 08/13/2024 09:30 AM Body Weight (74151-0) 196 [lb_av] Body Mass Index (78423-2) 29.8 kg/m2 08/13/2024 07:32 AM Heart Rate (8867-4) 67 /min 08/13/2024 09:41 AM Temperature (8310-5) 98.9 [degF] Oxygen Saturation (23054-6) 94 % Respiratory Rate (9279-1) 18 /min [...] 74 mm[Hg] 08/15/2024 04:27 PM Body Weight (47059-8) 196.4 [lb_av ] Body Mass Index (60791-9) 29.86 kg/m2 08/16/2024 07:04 AM Blood Pressure Systolic (8480-6) 1 29 mm[Hg] Blood Pressure Diastolic (8462-4) 67 mm[Hg] 08/16/2024 01:42 PM Blood Pressure Systolic (8480-6) 1 15 mm[Hg] Blood Pressure Diastolic (8462-4) 63 mm[Hg] 08/15/2024 11:01 PM Blood Pressure Systolic (8480-6) 1 32 mm[Hg] Blood Pressure Diastolic (8462-4) 59 mm[Hg] 08/16/2024 09:38 AM Body Weight (90110-0) 193.2 [lb_av ] Body Mass Index (90771-9) 29.37 kg/m2 08/16/2024 09:46 PM Blood Pressure Systolic (8480-6) 1 32 mm[Hg] Blood Pressure Diastolic (8462-4) 67 mm[Hg] 08/17/2024 08:15 PM Blood Pressure Systolic (8480-6) 1 43 mm[Hg] Blood Pressure Diastolic (8462-4) 66 mm[Hg] 08/17/2024 07:43 AM Heart Rate (8867-4) 54 /min Blood Pressure Systolic (8480-6) 133 mm[Hg] Blood Pressure Diastolic (8462-4) 67 mm[Hg] 08/17/2024 01:28 PM Body Weight (39377-8) 193 [lb_av] Body Mass Index (88789-8) 29.34 kg/m2 08/18/2024 07:20 AM Heart Rate [...] 76 mm[Hg] 08/20/2024 09:41 AM Body Weight (56044-2) 190 [lb_av] Body Mass Index (95484-8) 28.89 kg/m2 08/20/2024 09:37 AM Temperature (8310-5) 97.8 [degF] Oxygen Saturation (75230-2) 94 % Respiratory Rate (9279-1) 17 /min [...] 66 mm[Hg] 08/27/2024 03:45 PM Body Weight (42657-2) 192.8 [lb_av ] Body Mass Index (70015-6) 29.31 kg/m2 08/27/2024 08:35 AM Respiratory Rate (9279-1) 17 /min 08/27/2024 08:34 AM Oxygen Saturation (86234-2) 98 % 08/27/2024 08:31 AM Temperature (8310-5) [...] 63 mm[Hg] 09/03/2024 11:05 AM Body Weight (00215-5) 191 [lb_av] Body Mass Index (88988-3) 29.04 kg/m2 09/03/2024 02:37 PM Blood Pressure Systolic (8480-6) 1 19 mm[Hg] Blood Pressure Diastolic (8462-4) 68 mm[Hg] 09/02/2024 09:13 PM Blood Pressure Systolic (8480-6) 1 28 mm[Hg] Blood Pressure Diastolic (8462-4) 71 mm[Hg] 09/03/2024 02:36 PM Temperature (8310-5) 98.3 [degF] Oxygen Saturation (60534-0) 97 % Respiratory Rate (9279-1) 18 /min [...] 60 /min 09/06/2024 02:26 PM Body Weight (77843-2) 188.8 [lb_av ] Body Mass Index (54296-7) 28.7 kg/m2 09/06/2024 05:25 AM Blood Pressure [...] PM Temperature (8310-5) 98.7 [degF] Oxygen Saturation (74545-5) 92 % Respiratory Rate (9279-1) 18 /min Heart Rate (8867-4) 44 /min Blood Pressure Systolic (8480-6) 117 mm[Hg] Blood Pressure Diastolic (8462-4) 59 mm[Hg] Body Weight (56888-3) 188.4 [lb_av] Body Mass Index (59409-7) 28.64 kg/m2 09/09/2024 06:54 PM Blood Pressure [...] 66 mm[Hg] 09/17/2024 11:14 AM Body Weight (52001-5) 188 [lb_av] Body Mass Index (06405-1) 28.58 kg/m2 09/17/2024 08:52 AM Temperature (8310-5) 97 [degF] Oxygen Saturation (61815-6) 90 % Respiratory Rate (9279-1) 18 /min [...] 80 mm[Hg] 09/24/2024 09:54 AM Body Weight (90628-0) 185.6 [lb_av ] Body Mass Index (47724-2) 28.22 kg/m2 09/24/2024 09:53 AM Temperature (8310-5) 98.9 [degF] Oxygen Saturation (01653-2) 94 % Respiratory Rate (9279-1) 16 /min [...] 74 mm[Hg] 10/01/2024 09:03 AM Body Weight (11033-6) 187.2 [lb_av ] Body Mass Index (26446-2) 28.46 kg/m2 10/01/2024 08:24 AM Temperature (8310-5) 97.2 [degF] Oxygen Saturation (97401-8) 95 % Respiratory Rate (9279-1) 16 /min [...] 81 mm[Hg] 10/04/2024 10:50 AM Body Weight (64858-4) 187.2 [lb_av ] Body Mass Index (37784-7) 28.46 kg/m2 10/04/2024 05:04 AM Heart Rate [...] 67 /min 10/08/2024 01:23 PM Body Weight (97625-5) 187 [lb_av] Body Mass Index (19215-5) 28.43 kg/m2 10/08/2024 11:29 AM Temperature (8310-5) 98.5 [degF] Oxygen Saturation (63811-4) 96 % Respiratory Rate (9279-1) 16 /min [...] 63 /min 10/15/2024 07:33 AM Body Weight (46833-5) 188.2 [lb_av ] Body Mass Index (25040-8) 28.61 kg/m2 10/15/2024 05:16 AM Blood Pressure [...] 84 mm[Hg] 10/22/2024 11:23 AM Body Weight (99183-3) 189 [lb_av] Body Mass Index (11369-4) 28.73 kg/m2 10/22/2024 10:42 AM Temperature (8310-5) 98.4 [degF] Oxygen Saturation (15837-8) 94 % Respiratory Rate (9279-1) 20 /min [...] PM Temperature (8310-5) 97.8 [degF] Oxygen Saturation (76255-8) 92 % Respiratory Rate (9279-1) 19 /min Heart Rate (8867-4) 42 /min Blood Pressure Systolic (8480-6) 101 mm[Hg] Blood Pressure Diastolic (8462-4) 50 mm[Hg] 10/28/2024 06:54 PM Blood Pressure Systolic (8480-6) 1 32 mm[Hg] Blood Pressure Diastolic (8462-4) 63 mm[Hg] 10/29/2024 05:24 AM Blood Pressure Systolic (8480-6) 1 38 mm[Hg] Blood Pressure Diastolic (8462-4) 54 mm[Hg] 10/29/2024 12:44 PM Body Weight (15119-3) 188 [lb_av] Body Mass Index (91031-2) 28.58 kg/m2 10/29/2024 11:00 AM Temperature (8310-5) 98 [degF] Oxygen Saturation (87133-6) 96 % Respiratory Rate (9279-1) 17 /min [...] 67 mm[Hg] 11/04/2024 05:17 PM Body Weight (99848-2) 187.8 [lb_av ] Body Mass Index (75451-9) 28.55 kg/m2 11/04/2024 11:47 AM Blood Pressure [...] PM Temperature (8310-5) 98 [degF] Oxygen Saturation (57383-6) 93 % Respiratory Rate (9279-1) 16 /min [...] AM Temperature (8310-5) 98.9 [degF] Oxygen Saturation (34802-8) 97 % Respiratory Rate (9279-1) 18 /min [...] PM Temperature (8310-5) 98.6 [degF] Oxygen Saturation (48770-0) 96 % Respiratory Rate (9279-1) 19 /min Heart Rate (8867-4) 92 /min Blood Pressure Systolic (8480-6) 132 mm[Hg] Blood Pressure Diastolic (8462-4) 47 mm[Hg] Body Height (8302-2) 68 [in_us] 11/23/2024 10:37 AM Temperature (8310-5) 98.4 [degF] Oxygen Saturation (08786-7) 97 % Respiratory Rate (9279-1) 17 /min Heart Rate (8867-4) 73 /min Blood Pressure Systolic (8480-6) 120 mm[Hg] Blood Pressure Diastolic (8462-4) 67 mm[Hg] 11/23/2024 08:04 PM Blood Pressure Systolic (8480-6) 1 41 mm[Hg] Blood Pressure Diastolic (8462-4) 78 mm[Hg] 11/23/2024 08:05 PM Temperature (8310-5) 99.2 [degF] Oxygen Saturation (01733-3) 95 % Respiratory Rate (9279-1) 21 /min Heart Rate (8867-4) 102 /min 11/24/2024 09:40 PM Temperature (8310-5) 97.7 [degF] Oxygen Saturation (36774-5) 94 % Respiratory Rate (9279-1) 16 /min Heart Rate (8867-4) 86 /min Blood Pressure Systolic (8480-6) 117 mm[Hg] Blood Pressure Diastolic (8462-4) 77 mm[Hg] 11/25/2024 04:42 AM Blood Pressure Systolic (8480-6) 1 24 mm[Hg] Blood Pressure Diastolic (8462-4) 64 mm[Hg] 11/25/2024 08:39 AM Temperature (8310-5) 97.5 [degF] Oxygen Saturation (71912-7) 97 % Respiratory Rate (9279-1) 14 /min [...] PM Temperature (8310-5) 98.3 [degF] Oxygen Saturation (03180-7) 91 % Respiratory Rate (9279-1) 15 /min [...] PM Temperature (8310-5) 97.1 [degF] Oxygen Saturation (21182-6) 96 % Respiratory Rate (9279-1) 16 /min Heart Rate (8867-4) 61 /min Blood Pressure Systolic (8480-6) 152 mm[Hg] Blood Pressure Diastolic (8462-4) 91 mm[Hg] 11/26/2024 07:07 PM Blood Pressure Systolic (8480-6) 9 8 mm[Hg] Blood Pressure Diastolic (8462-4) 64 mm[Hg] 11/26/2024 10:40 PM Temperature (8310-5) 97.3 [degF] Oxygen Saturation (96838-1) 93 % Respiratory Rate (9279-1) 16 /min Heart Rate (8867-4) 79 /min 11/27/2024 06:50 AM Blood Pressure Systolic (8480-6) 1 11 mm[Hg] Blood Pressure Diastolic (8462-4) 68 mm[Hg] 11/27/2024 05:34 PM Temperature (8310-5) 98.9 [degF] Oxygen Saturation (86647-8) 97 % Respiratory Rate (9279-1) 16 /min Heart Rate (8867-4) 81 /min Blood Pressure Systolic (8480-6) 111 mm[Hg] Blood Pressure Diastolic (8462-4) 68 mm[Hg] 11/27/2024 01:15 PM Blood Pressure Systolic (8480-6) 1 23 mm[Hg] Blood Pressure Diastolic (8462-4) 62 mm[Hg] 11/27/2024 08:00 PM Temperature (8310-5) 98.2 [degF] Oxygen Saturation (93533-8) 92 % Respiratory Rate (9279-1) 15 /min Heart Rate (8867-4) 89 /min Blood Pressure Systolic (8480-6) 107 mm[Hg] Blood Pressure Diastolic (8462-4) 67 mm[Hg] 11/28/2024 12:27 PM Oxygen Saturation (62118-4) 94 % Respiratory Rate (9279-1) 19 /min Heart Rate (8867-4) 92 /min Blood Pressure Systolic (8480-6) 102 mm[Hg] Blood Pressure Diastolic (8462-4) 58 mm[Hg] 11/28/2024 12:26 PM Temperature (8310-5) 98.5 [degF] 11/28/2024 10:23 PM Blood Pressure Systolic (8480-6) 1 01 mm[Hg] Blood Pressure Diastolic (8462-4) 59 mm[Hg] 11/28/2024 10:21 PM Temperature (8310-5) 98.2 [degF] Oxygen Saturation (45584-5) 95 % Respiratory Rate (9279-1) 18 /min Heart Rate (8867-4) 80 /min 11/28/2024 06:43 PM Blood Pressure Systolic (8480-6) 1 08 mm[Hg] Blood Pressure Diastolic (8462-4) 54 mm[Hg] 11/29/2024 07:56 AM Temperature (8310-5) 98 [degF] Oxygen Saturation (29808-0) 94 % Respiratory Rate (9279-1) 19 /min Heart Rate (8867-4) 84 /min Blood Pressure Systolic (8480-6) 124 mm[Hg] Blood Pressure Diastolic (8462-4) 86 mm[Hg] 11/29/2024 08:47 PM Temperature (8310-5) 98.2 [degF] Oxygen Saturation (65084-5) 94 % Respiratory Rate (9279-1) 17 /min Heart Rate (8867-4) 78 /min 11/30/2024 05:11 AM Blood Pressure Systolic (8480-6) 1 27 mm[Hg] Blood Pressure Diastolic (8462-4) 72 mm[Hg] 11/29/2024 10:23 PM Blood Pressure Systolic (8480-6) 1 27 mm[Hg] Blood Pressure Diastolic (8462-4) 61 mm[Hg] 11/30/2024 08:05 AM Temperature (8310-5) 98.1 [degF] Oxygen Saturation (15607-4) 93 % Respiratory Rate (9279-1) 20 /min [...] AM Temperature (8310-5) 97.6 [degF] Oxygen Saturation (22035-2) 94 % Respiratory Rate (9279-1) 20 /min [...] AM Temperature (8310-5) 97.8 [degF] Oxygen Saturation (92636-2) 95 % Respiratory Rate (9279-1) 19 /min [...] PM Temperature (8310-5) 97.6 [degF] Oxygen Saturation (34356-5) 91 % Respiratory Rate (9279-1) 15 /min [...] PM Temperature (8310-5) 98.7 [degF] Oxygen Saturation (34002-2) 98 % Respiratory Rate (9279-1) 16 /min [...] PM Temperature (8310-5) 97.4 [degF] Oxygen Saturation (04473-5) 98 % Respiratory Rate (9279-1) 16 /min Heart Rate (8867-4) 74 /min Blood Pressure Systolic (8480-6) 112 mm[Hg] Blood Pressure Diastolic (8462-4) 68 mm[Hg] 12/03/2024 09:05 AM Temperature (8310-5) 97.7 [degF] Oxygen Saturation (33361-1) 94 % Respiratory Rate (9279-1) 16 /min Heart Rate (8867-4) 75 /min Blood Pressure Systolic (8480-6) 104 mm[Hg] Blood Pressure Diastolic (8462-4) 63 mm[Hg] 12/03/2024 07:34 AM Blood Pressure Systolic (8480-6) 1 04 mm[Hg] Blood Pressure Diastolic (8462-4) 63 mm[Hg] 12/03/2024 11:16 AM Body Weight (89555-2) 179.6 [lb_av ] Body Mass Index (30769-0) 27.31 kg/m2 12/03/2024 02:45 PM Blood Pressure Systolic (8480-6) 9 8 mm[Hg] Blood Pressure Diastolic (8462-4) 56 mm[Hg] 12/03/2024 11:26 PM Temperature (8310-5) 97.4 [degF] Oxygen Saturation (74267-0) 98 % Respiratory Rate (9279-1) 18 /min Heart Rate (8867-4) 55 /min Blood Pressure Systolic (8480-6) 113 mm[Hg] Blood Pressure Diastolic (8462-4) 64 mm[Hg] 12/03/2024 06:49 PM Blood Pressure Systolic (8480-6) 1 13 mm[Hg] Blood Pressure Diastolic (8462-4) 64 mm[Hg] 12/04/2024 08:26 AM Body Weight (65776-7) 179.4 [lb_av ] Body Mass Index (17773-3) 27.27 kg/m2 12/04/2024 08:25 AM Temperature (8310-5) 97.6 [degF] Oxygen Saturation (10966-6) 94 % Respiratory Rate (9279-1) 18 /min Heart Rate (8867-4) 76 /min Blood Pressure Systolic (8480-6) 115 mm[Hg] Blood Pressure Diastolic (8462-4) 68 mm[Hg] 12/04/2024 01:35 PM Blood Pressure Systolic (8480-6) 1 47 mm[Hg] Blood Pressure Diastolic (8462-4) 86 mm[Hg] 12/04/2024 07:19 PM Temperature (8310-5) 98.4 [degF] Oxygen Saturation (81830-0) 92 % Respiratory Rate (9279-1) 16 /min Heart Rate (8867-4) 64 /min 12/04/2024 06:24 PM Blood Pressure Systolic (8480-6) 1 47 mm[Hg] Blood Pressure Diastolic (8462-4) 94 mm[Hg] 12/04/2024 10:07 PM Blood Pressure Systolic (8480-6) 1 28 mm[Hg] Blood Pressure Diastolic (8462-4) 78 mm[Hg] 12/05/2024 06:34 AM Temperature (8310-5) 98.3 [degF] Oxygen Saturation (19355-2) 93 % Respiratory Rate (9279-1) 18 /min [...] PM Temperature (8310-5) 97.1 [degF] Oxygen Saturation (88224-7) 95 % Respiratory Rate (9279-1) 18 /min Heart Rate (8867-4) 77 /min Blood Pressure Systolic (8480-6) 129 mm[Hg] Blood Pressure Diastolic (8462-4) 75 mm[Hg] 04/08/2025 10:34 AM Temperature (8310-5) 98.4 [degF] Oxygen Saturation (57523-7) 98 % Respiratory Rate (9279-1) 18 /min Heart Rate (8867-4) 99 /min Blood Pressure Systolic (8480-6) 162 mm[Hg] Blood Pressure Diastolic (8462-4) 87 mm[Hg] 04/09/2025 09:42 PM Temperature (8310-5) 97.7 [degF] Oxygen Saturation (60633-7) 96 % Respiratory Rate (9279-1) 20 /min Heart Rate (8867-4) 76 /min Blood Pressure Systolic (8480-6) 129 mm[Hg] Blood Pressure Diastolic (8462-4) 84 mm[Hg] 04/08/2025 12:24 AM Temperature (8310-5) 98.6 [degF] Oxygen Saturation (90681-4) 97 % Respiratory Rate (9279-1) 16 /min Heart Rate (8867-4) 106 /min Blood Pressure Systolic (8480-6) 129 mm[Hg] Blood Pressure Diastolic (8462-4) 82 mm[Hg] 04/08/2025 03:56 PM Body Weight (54603-5) 156.4 [lb_av ] Body Mass Index (94314-6) 23.78 kg/m2 04/08/2025 08:56 PM Temperature (8310-5) 97.4 [degF] Oxygen Saturation (25508-5) 95 % Respiratory Rate (9279-1) 15 /min Heart Rate (8867-4) 99 /min Blood Pressure Systolic (8480-6) 117 mm[Hg] Blood Pressure Diastolic (8462-4) 71 mm[Hg] 04/10/2025 10:47 AM Temperature (8310-5) 97.5 [degF] Oxygen Saturation (04673-9) 97 % Respiratory Rate (9279-1) 16 /min Heart Rate (8867-4) 91 /min Blood Pressure Systolic (8480-6) 140 mm[Hg] Blood Pressure Diastolic (8462-4) 73 mm[Hg] 12/09/2024 06:30 PM Body Height (8302-2) 68 [in_us] 04/09/2025 11:24 AM Temperature (8310-5) 98 [degF] Oxygen Saturation (88541-7) 98 % Respiratory Rate (9279-1) 28 /min Heart Rate (8867-4) 92 /min Blood Pressure Systolic (8480-6) 136 mm[Hg] Blood Pressure Diastolic (8462-4) 82 mm[Hg] 04/06/2025 03:03 PM Body Weight (70437-5) 159 [lb_av] Body Mass Index (71872-9) 24.17 kg/m2 04/06/2025 09:18 AM Temperature (8310-5) 98.4 [degF] Oxygen Saturation (78828-5) 94 % Respiratory Rate (9279-1) 20 /min Heart Rate (8867-4) 84 /min Blood Pressure Systolic (8480-6) 134 mm[Hg] Blood Pressure Diastolic (8462-4) 64 mm[Hg] 02/06/2025 03:38 PM Body Weight (57937-2) 162 [lb_av] Body Mass Index (44155-4) 24.63 kg/m2 03/06/2025 08:06 AM Body Weight (51928-5) 155.6 [lb_av ] Body Mass Index (03745-3) 23.66 kg/m2 02/05/2025 03:00 PM Body Weight (58764-2) 157.4 [lb_av ] Body Mass Index (01873-6) 23.93 kg/m2 01/27/2025 09:30 AM Body Weight (78621-8) 156.8 [lb_av ] Body Mass Index (87616-3) 23.84 kg/m2 01/25/2025 05:50 PM Body Weight (70869-7) 151 [lb_av] Body Mass Index (08290-5) 22.96 kg/m2 04/07/2025 08:02 AM Temperature (8310-5) 97.4 [degF] Oxygen Saturation (77344-6) 99 % Respiratory Rate (9279-1) 15 /min Heart Rate (8867-4) 91 /min Blood Pressure Systolic (8480-6) 130 mm[Hg] Blood Pressure Diastolic (8462-4) 85 mm[Hg] 02/03/2025 09:11 AM Body Weight (02852-8) 157.9 [lb_av ] Body Mass Index (81048-5) 24.01 kg/m2 01/12/2025 03:15 PM Body Weight (52079-7) 163.6 [lb_av ] Body Mass Index (11862-2) 24.87 kg/m2 04/06/2025 10:23 PM Temperature (8310-5) 97.6 [degF] Oxygen Saturation (66206-3) 98 % Respiratory Rate (9279-1) 16 /min Heart Rate (8867-4) 81 /min Blood Pressure Systolic (8480-6) 165 mm[Hg] Blood Pressure Diastolic (8462-4) 85 mm[Hg] 02/18/2025 12:05 PM Body Weight (15284-6) 157.2 [lb_av ] Body Mass Index (01055-1) 23.9 kg/m2 02/07/2025 05:00 PM Body Weight (24139-9) 159.7 [lb_av ] Body Mass Index (33089-5) 24.28 kg/m2 04/05/2025 04:46 PM Body Weight (09510-8) 155 [lb_av] Body Mass Index (45322-9) 23.57 kg/m2 04/04/2025 04:13 PM Body Weight (34726-4) 155.4 [lb_av ] Body Mass Index (91285-7) 23.63 kg/m2 04/10/2025 09:40 PM Temperature (8310-5) 98.3 [degF] Oxygen Saturation (57612-7) 96 % Respiratory Rate (9279-1) 20 /min Heart Rate (8867-4) 77 /min Blood Pressure Systolic (8480-6) 128 mm[Hg] Blood Pressure Diastolic (8462-4) 69 mm[Hg] 04/11/2025 05:11 AM Temperature (8310-5) 97.4 [degF] Oxygen Saturation (27738-2) 95 % Respiratory Rate (9279-1) 15 /min Heart Rate (8867-4) 110 /min Blood Pressure Systolic (8480-6) 157 mm[Hg] Blood Pressure Diastolic (8462-4) 96 mm[Hg] 04/11/2025 11:41 PM Temperature (8310-5) 97.7 [degF] Oxygen Saturation (24215-8) 97 % Respiratory Rate (9279-1) 17 /min Heart Rate (8867-4) 85 /min Blood Pressure Systolic (8480-6) 143 mm[Hg] Blood Pressure Diastolic (8462-4) 82 mm[Hg] 04/12/2025 07:00 AM Temperature (8310-5) 96.3 [degF] Oxygen Saturation (33070-7) 99 % Respiratory Rate (9279-1) 18 /min Heart Rate (8867-4) 92 /min Blood Pressure Systolic (8480-6) 153 mm[Hg] Blood Pressure Diastolic (8462-4) 88 mm[Hg] 04/13/2025 01:00 AM Temperature (8310-5) 97 [degF] Oxygen Saturation (23563-7) 97 % Respiratory Rate (9279-1) 19 /min Heart Rate (8867-4) 79 /min Blood Pressure Systolic (8480-6) 142 mm[Hg] Blood Pressure Diastolic (8462-4) 76 mm[Hg] 04/13/2025 09:29 AM Temperature (8310-5) 97.1 [degF] Oxygen Saturation (42387-1) 94 % Respiratory Rate (9279-1) 16 /min Heart Rate (8867-4) 89 /min Blood Pressure Systolic (8480-6) 135 mm[Hg] Blood Pressure Diastolic (8462-4) 71 mm[Hg] 04/13/2025 08:52 PM Temperature (8310-5) 97.4 [degF] Oxygen Saturation (91409-4) 95 % Respiratory Rate (9279-1) 16 /min Heart Rate (8867-4) 98 /min Blood Pressure Systolic (8480-6) 135 mm[Hg] Blood Pressure Diastolic (8462-4) 80 mm[Hg] 04/14/2025 08:53 AM Temperature (8310-5) 97.9 [degF] Oxygen Saturation (85682-8) 96 % Respiratory Rate (9279-1) 16 /min Heart Rate (8867-4) 86 /min Blood Pressure Systolic (8480-6) 155 mm[Hg] Blood Pressure Diastolic (8462-4) 87 mm[Hg] 04/14/2025 07:50 PM Temperature (8310-5) 98.1 [degF] Oxygen Saturation (65213-5) 97 % Respiratory Rate (9279-1) 15 /min Heart Rate (8867-4) 97 /min Blood Pressure Systolic (8480-6) 142 mm[Hg] Blood Pressure Diastolic (8462-4) 78 mm[Hg] 04/15/2025 09:27 AM Temperature (8310-5) 97.6 [degF] Oxygen Saturation (69810-4) 99 % Respiratory Rate (9279-1) 16 /min Heart Rate (8867-4) 85 /min Blood Pressure Systolic (8480-6) 139 mm[Hg] Blood Pressure Diastolic (8462-4) 88 mm[Hg] 04/15/2025 03:17 PM Body Weight (02286-8) 145.6 [lb_av ] Body Mass Index (77510-1) 22.14 kg/m2 04/15/2025 09:53 PM Temperature (8310-5) 97.4 [degF] Oxygen Saturation (64568-8) 97 % Respiratory Rate (9279-1) 15 /min Heart Rate (8867-4) 91 /min Blood Pressure Systolic (8480-6) 136 mm[Hg] Blood Pressure Diastolic (8462-4) 79 mm[Hg] 04/16/2025 06:37 PM Temperature (8310-5) 97.8 [degF] Oxygen Saturation (40170-5) 98 % Respiratory Rate (9279-1) 16 /min Heart Rate (8867-4) 92 /min Blood Pressure Systolic (8480-6) 165 mm[Hg] Blood Pressure Diastolic (8462-4) 91 mm[Hg] 04/16/2025 05:47 PM Temperature (8310-5) 98.2 [degF] Oxygen Saturation (00250-0) 99 % Respiratory Rate (9279-1) 15 /min Heart Rate (8867-4) 85 /min Blood Pressure Systolic (8480-6) 142 mm[Hg] Blood Pressure Diastolic (8462-4) 88 mm[Hg] 04/17/2025 08:09 AM Temperature (8310-5) 97.3 [degF] Oxygen Saturation (37230-6) 98 % Respiratory Rate (9279-1) 18 /min Heart Rate (8867-4) 87 /min Blood Pressure Systolic (8480-6) 158 mm[Hg] Blood Pressure Diastolic (8462-4) 85 mm[Hg] 04/18/2025 12:09 AM Temperature (8310-5) 98.4 [degF] Oxygen Saturation (75064-8) 97 % Respiratory Rate (9279-1) 17 /min Heart Rate (8867-4) 77 /min Blood Pressure Systolic (8480-6) 142 mm[Hg] Blood Pressure Diastolic (8462-4) 81 mm[Hg] 04/18/2025 10:12 AM Temperature (8310-5) 97.6 [degF] Oxygen Saturation (32294-3) 98 % Respiratory Rate (9279-1) 14 /min Heart Rate (8867-4) 83 /min Blood Pressure Systolic (8480-6) 147 mm[Hg] Blood Pressure Diastolic (8462-4) 86 mm[Hg] 04/19/2025 12:47 AM Temperature (8310-5) 98.5 [degF] Oxygen Saturation (89309-4) 96 % Respiratory Rate (9279-1) 18 /min Heart Rate (8867-4) 77 /min Blood Pressure Systolic (8480-6) 139 mm[Hg] Blood Pressure Diastolic (8462-4) 76 mm[Hg] 04/19/2025 10:00 AM Temperature (8310-5) 96.3 [degF] Oxygen Saturation (22430-1) 99 % Respiratory Rate (9279-1) 17 /min Heart Rate (8867-4) 91 /min Blood Pressure Systolic (8480-6) 104 mm[Hg] Blood Pressure Diastolic (8462-4) 80 mm[Hg] 04/20/2025 12:37 AM Temperature (8310-5) 97.5 [degF] Oxygen Saturation (38064-4) 98 % Respiratory Rate (9279-1) 18 /min Heart Rate (8867-4) 76 /min Blood Pressure Systolic (8480-6) 126 mm[Hg] Blood Pressure Diastolic (8462-4) 75 mm[Hg] 04/20/2025 09:33 PM Temperature (8310-5) 96.7 [degF] Oxygen Saturation (45776-1) 97 % Respiratory Rate (9279-1) 16 /min Heart Rate (8867-4) 84 /min Blood Pressure Systolic (8480-6) 152 mm[Hg] Blood Pressure Diastolic (8462-4) 88 mm[Hg] 04/21/2025 09:45 AM Temperature (8310-5) 98.4 [degF] Oxygen Saturation (43693-0) 99 % Respiratory Rate (9279-1) 17 /min Heart Rate (8867-4) 76 /min Blood Pressure Systolic (8480-6) 164 mm[Hg] Blood Pressure Diastolic (8462-4) 63 mm[Hg] 04/21/2025 09:11 PM Temperature (8310-5) 97 [degF] Oxygen Saturation (25237-9) 97 % Respiratory Rate (9279-1) 16 /min Heart Rate (8867-4) 98 /min Blood Pressure Systolic (8480-6) 155 mm[Hg] Blood Pressure Diastolic (8462-4) 98 mm[Hg] 04/22/2025 10:13 AM Temperature (8310-5) 97.7 [degF] Oxygen Saturation (68224-4) 98 % Respiratory Rate (9279-1) 17 /min Heart Rate (8867-4) 108 /min Blood Pressure Systolic (8480-6) 147 mm[Hg] Blood Pressure Diastolic (8462-4) 95 mm[Hg] 04/29/2025 11:42 PM Temperature (8310-5) 97.9 [degF] Oxygen Saturation (72165-7) 96 % Respiratory Rate (9279-1) 20 /min Heart Rate (8867-4) 70 /min Blood Pressure Systolic (8480-6) 151 mm[Hg] Blood Pressure Diastolic (8462-4) 93 mm[Hg] 04/29/2025 06:43 PM Temperature (8310-5) 97.9 [degF] Oxygen Saturation (01348-0) 96 % Respiratory Rate (9279-1) 20 /min Heart Rate (8867-4) 70 /min Blood Pressure Systolic (8480-6) 138 mm[Hg] Blood Pressure Diastolic (8462-4) 93 mm[Hg] 04/30/2025 03:18 AM Body Weight (91969-4) 155.8 [lb_av ] Body Mass Index (01299-3) 23.69 kg/m2 04/30/2025 12:57 PM Body Height (8302-2) 68 [in_us] 04/30/2025 12:28 PM Temperature (8310-5) 98.7 [degF] Oxygen Saturation (30419-7) 97 % Respiratory Rate (9279-1) 16 /min Heart Rate (8867-4) 92 /min Blood Pressure Systolic (8480-6) 172 mm[Hg] Blood Pressure Diastolic (8462-4) 97 mm[Hg] 04/30/2025 12:27 PM Body Weight (27620-0) 155.6 [lb_av ] Body Mass Index (85898-2) 23.66 kg/m2 Social History Element Description Date Comment Tobacco [...] encounter report 04/05/2021 03:0 7 PM - 04/22/2025 07:35 PM Philippe Denise DO 02 Advance Directives Directive Description Verification Date Supporting Document(s) Other Directive
[2025-04-30 18:49] LABS: Hematocrit 34.6 % (37-53); Hemoglobin 11.00 g/dL (11.27-16.99); Mean Corpuscular HGB Conc 31.8 g/dL (30-55); Mean Corpuscular Hemoglobin 29.0 pg (27-33); Mean Corpuscular Volume 91.3 fl (82-101); Nucleated Red Blood Cells % 0 %; Platelet Count 405 10^3/cmm (157-399); Red Blood Count 3.79 10^6/uL (3.85-5.65); White Blood Count 11.32 10^3/uL (3.29-11.43)
--- NOTE | 2025-04-30 18:57 | ED_ITS ---
HPI - Altered Mental Status 2 General: Chief Complaint: Altered Mental Status Stated Complaint: SEPSIS ALERT Source: patient and EMS Mode of arrival: EMS History of Present Illness: 75-year-old male was sent here from [facility] for concern of possible sepsis. Patient had just got discharged from [facility] 1 to 2 days ago for acute cystitis. Patient here is afebrile with normal blood pressures he has some slight confusion but has some confusion at baseline he is able to tell me his name where he lives at this time and able to follow all commands. He had no vomiting no diarrhea has chronic Regan in place Related Data Home Medications ?Medication ?Instructions ?Recorded ?Confirmed tramadol 50 mg tablet 50 mg PO Q6H PRN Pain 04/23/25 acetaminophen 325 mg tablet 650 mg PO Q6H PRN PAIN OR FEVER 07/08/23 04/23/25 apixaban 5 mg tablet (Eliquis) 5 mg PO BID 07/08/23 vit C 50 mg-E 15 unit-zinc cit 4.5 1 tab PO BEDTIME 04/01/25 mg-lutein 2.5 mg-zeaxan chew tablet [facility] cyanocobalamin (vitamin B-12) 500 500 mcg PO DAILY 04/23/25 mcg tablet insulin aspart U-100 100 unit/mL See Rx Instructions . Route .COMPLEX 01/24/24 04/01/25 (3 mL) subcutaneous pen (Novolog FlexPen U-100 Insulin aspart) amlodipine 5 mg tablet 5 mg PO DAILY 11/18/2404/23 Held on 04/03/25. Instructions: hold till seen by pcp nystatin 100,000 unit/gram topical See Rx Instructions .Route .COMPLEX 04/01/25 04/01/25 cream silver sulfadiazine 1 % topical See Rx Instructions .R oute .COMPLEX 04/01/25 04/23/25 cream Previous Rx's ?Medication ?Instructions ?Recorded ondansetron 4 mg disintegrating 4 mg PO Q6H PRN nausea and 11/24/24 tablet vomiting #14 tabs lisinopril 5 mg tablet 2.5 mg (1/2 x 5 mg) PO DAILY #30 04/03/25 tabs metoprolol tartrate 25 mg tablet 50 mg (2 x 25 mg) PO BID@0900,2100 04/03/25 #90 tabs Allergies Allergy/AdvReac Type Severity Reaction Status Date / Time Penicillins Allergy ALGY-Rash Verified 12/21/24 11:05 [facility] ED 2 PFS: Medical History (Updated 04/30/25 @ 20:32 by Fabian Ramos MD) Chronic indwelling Regan catheter Atrial fibrillation with rapid ventricular response Peripheral neuropathy CAD (coronary artery disease) Depression Chronic anticoagulation CVA (cerebral vascular accident) 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 CKD (chronic kidney disease) Baseline creatinine 1.9 Poorly controlled type 2 diabetes mellitus Dyslipidemia DVT (deep venous thrombosis) HTN (hypertension) Polycythemia Atrial fibrillation Surgical History S/P ORIF (open reduction internal fixation) fracture No pertinent past surgical history Family History Other CAD (coronary artery disease) Cancer Social History Smoking and tobacco/nicotine status: former use of tobacco/nicotine Quit status (tobacco/nicotine): has quit using Year quit tobacco: 2010 Former quit date comment: Due to stroke Alcohol intake: former Year of sobriety/quit date alcohol: 2010 Former alcohol use details: Never heavy drinker Substance/Drug Use: never Additional social history: Next of kin is his brother Michael Mcintosh who is 69 years old patient wants full CODE STATUS Caregiver/support person: No Household members: none Housing: House 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 [employer] Physical Exam 2 Const: COMMON NORMALS: no acute distress, patient oriented x3 and healthy appearing HENMT: COMMON NORMALS: normocephalic and atraumatic HEAD & SCALP: n ormocephalic and atraumatic Eye: COMMON NORMALS: Equal, round and reactive pupils present and EOMs intact bilaterally PUPIL: Yes Equal, round and reactive pupils present Neck/C-Spine: COMMON NORMALS: full ROM and supple Chest: COMMONS NORMALS: normal inspection of the chest and normal palpation of entire chest wall Resp: COMMON NORMALS: normal respiratory effort, No retractions, No use of accessory muscles and clear to auscultation bilaterally AUSCULTATION: clear to auscultation bilaterally Cardio: COMMON NORMALS: regular rate, regular rhythm and No murmurs present (Cardio) RATE: regular rate RHYTHM: regular rhythm GI: COMMON NORMALS: Normal to inspection, nondistended, normoactive bowel sounds present, Soft to palpation, non-tender and no masses PALPATION: Yes Soft to palpation Extremity: COMMON NORMALS: normal to inspection and full ROM Neuro: COMMON NORMALS: patient oriented x3, moves all extremities and no focal motor deficits Psych: COMMON NORMALS: mental status grossly normal, Normal thought process present and cooperative THOUGHT PROCESS: Normal thought process present Skin: COMMON NORMALS: no rashes or lesions noted and no wounds GENERAL SKIN EXAM: no rashes or lesions noted Course 2 Vital Signs: Vital signs: Vital Signs Temperature 97.8 F 04/30/25 18:35 Pulse Rate 86 04/30/25 20:30 Respiratory Rate 16 04/30/25 18:35 Blood Pressure 159/87 04/30/25 20:30 Pulse Oximetry 100 04/30/25 20:30 Oxygen Delivery Me thod Room Air 04/30/25 20:30 MDM - Altered Mental Status Medical Decision Making Patient presents here with some confusion per senior care and concern to being septic. He has no signs of sepsis here white count is normal his blood pressure temp is been normal. Family is at bedside and states she is at his baseline he has no signs of stroke I did go over his imaging along with labs with family he stable for discharge back to senior care Medical Records I reviewed the patient's medical records. Lab Data I reviewed the patient's lab results. 04/30/25 18:42 04/30/25 18:42 Radiology Impressions Chest X-Ray 04/30/25 18:43 IMPRESSION: 1. Similar subtle bilateral interstitial markings without consolidation. 2. Stable mild cardiomegaly and pulmonary arterial dilatation. Head CT 04/30/25 18:43 IMPRESSION: No acute intracranial findings. Laboratory Results WBC 11.32 10^3/uL (3.29-11.43) 04/30/25 18:42 RBC 3.79 10^6/uL (3.85-5.65) L 04/30/25 18:42 Hgb 11.00 g/dL (11.27-16.99) L 04/30/25 18:42 Hct 34.6 % (37-53) L 04/30/25 18:42 MCV 91.3 fl (82-101) 04/30/25 18:42 MCH 29.0 pg (27-33) 04/30/25 18:42 MCHC 31.8 g/dL (30-55) 04/30/25 18:42 RDW 18.6 % (12.1-15.1) H 04/30/25 18:42 Plt Count 405 10^3/cmm (157-399) H 04/30/25 18:42 MPV 9.5 fL (7.4-10.4) 04/30/25 18:42 Neut % (Auto) 75.7 % 04/30/25 18:42 Lymph % (Auto) 13.6 % 04/30/25 18:42 Mayes % (Auto) 5.4 % 04/30/25 18:42 Eos % (Auto) 1.9 % 04/30/25 18:42 Baso % (Auto) 0.4 % 04/30/25 18:42 Neut # (Auto) 8.57 10^3/uL (1.8-7.7) H 04/30/25 18:42 Lymph # (Auto) 1.5 10^3/uL (0.8-4.8) 04/30/25 18:42 Mayes # (Auto) 0.6 10^3/uL (0.2-0.9) 04/30/25 18:42 Eos # (Auto) 0.2 10^3/uL (0.0-0.8) 04/30/25 18:42 Baso # (Auto) 0.1 10^3/uL (0.0-0.1) 04/30/25 18:42 Nucleated RBC % (auto) 0 % 04/30/25 18:42 Nucleated RBCs # 0.0 /100WBC 04/30/25 18:42 Sodium 132 mmol/L (136-145) L 04/30/25 18:42 Potassium 4.0 mmol/L (3.5-5.1) 04/30/25 18:42 Chloride 96 mmol/L (98-107) L 04/30/25 18:42 Carbon Dioxide 25 mmol/L (22-29) 04/30/25 18:42 Anion Gap 15.0 (5-19) 04/30/25 18:42 BUN 25 mg/dL (8-23) H 04/30/25 18:42 Creatinine 0.9 mg/dL (0.7-1.2) 04/30/25 18:42 GFR Calculation Not Reportable 04/30/25 18:42 Glucose 379 mg/dL (65-115) H 04/30/25 18:42 POC Glucose 227 mg/dL (70-110) H 04/30/25 20:00 Calculated Osmolality 294 mOsm/kg (285-295) 04/30/25 18:42 Calcium 8.2 mg/dL (8.5-10.5) L 04/30/25 18:42 Total Bilirubin 0.2 mg/dL (0.15-1.2) 04/30/25 18:42 AST 10 U/L (0-40) 04/30/25 18:42 ALT < 5 U/L (0-41) 04/30/25 18:42 Alkaline Phosphatase 142 U/L (40-130) H 04/30/25 18:42 Total Protein 6.5 g/dL (6.6-8.7) L 04/30/25 18:42 Albumin 2.5 g/dL (3.5-5.2) L 04/30/25 18:42 Globulin 4.0 g/dL (1.3-4.6) 04/30/25 18:42 All radiology interpretation(s) finalized by discharge EKG Data EKG 1: I personally reviewed and interpreted this EKG as follows: EKG interpretation date: 04/30/25 EKG interpretation time: 18:44 Interpretation: afib hr [address] elevaltion qrs 89 qtc 354 Discharge Plan Discharge Patient Disposition: Home Clinical Impression: Confusion Condition: Stable Prescriptions: No Action silver sulfadiazine 1 % cream See Rx Instructions .ROUTE .COMPLEX Rx Instructions: Apply topically every shift. Cleanse with Normal Saline and gauze, apply cream to buttock and cover with foam dressing and secure in place with tape. nystatin 100,000 unit/gram cream See Rx Instructions .ROUTE .COMPLEX Rx Instructions: Apply topically every shift. Cloeanse ximena area and buttocks with Normal Saline and gauze, pat dry and apply Nystatin. metoprolol tartrate 25 mg Tablet 50 mg PO BID@0900,2100 Qty: 90 0RF lisinopril 5 mg tablet 2.5 mg PO DAILY Qty: 30 0RF tramadol 50 mg tablet 50 mg PO Q6H PRN (Reason: Pain) acetaminophen 325 mg Tablet 650 mg PO Q6H PRN (Reason: PAIN OR FEVER) Eliquis 5 mg tablet 5 mg PO BID Ocuvite [facility] 50 mg-15 unit- 4.5 mg-2.5 mg Tablet,Chewable 1 tab PO BEDTIME cyanocobalamin (vitamin B-12) 500 mcg Tablet 500 mcg PO DAILY insulin aspart U-100 [Novolog FlexPen U-100 Insulin] 100 unit/mL (3 mL) insulin pen See Rx Instructions .ROUTE .COMPLEX Rx Instructions: INJECT BEFORE MEALS AND AT BEDTIME PER SLIDING SCALE: BS 150-200= 3 UNITS, 201-250= 5 UNITS, 251-300= 7 UNITS, 301-350= 9 UNITS, 351-400= 11 UNITS. CALL PCP IF BS <60 AMD >400 IF SYMPTOMATIC X 3 READINGS. 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
[2025-04-30 19:11] LABS: Alanine Aminotransferase < 5 U/L (0-41); Albumin Level 2.5 g/dL (3.5-5.2); Alkaline Phosphatase 142 U/L (40-130); Aspartate Amino Transferase 10 U/L (0-40); Blood Urea Nitrogen 25 mg/dL (8-23); Calcium 8.2 mg/dL (8.5-10.5); Carbon Dioxide 25 mmol/L (22-29); Chloride 96 mmol/L (98-107); Creatinine Clr Calc Pharmacy 76.7295; Globulin 4.0 g/dL (1.3-4.6); Glucose 379 mg/dL (65-115); Osmolality Calculated 294 mOsm/kg (285-295); Sodium 132 mmol/L (136-145); Total Protein 6.5 g/dL (6.6-8.7)
[2025-04-30 19:15] LABS: Anion Gap 15.0 (5-19); Potassium 4.0 mmol/L (3.5-5.1)
[2025-04-30] MEDS: insulin regular-human 100 units/1 mL 8 UNIT IVP (19:26)
--- NOTE | 2025-04-30 20:53 | PC.NURSE ---
called [facility] spoke to Dolly nurse in regards to pt dc back to [place], Dolly voices no transport from [facility] and that pt is bed bound.
--- NOTE | 2025-04-30 21:19 | PC.NURSE ---
Left IV removed with catheter intact and wrapped with Coban. [facility] here for transport back to [facility]
== END 2025-04-30 21:26 | disposition home or self-care (01) ==
PROVIDERS: Emergency Provider Emergency Medicine
DX: R41.0 Disorientation, unspecified (principal); Z79.01 Long term (current) use of anticoagulants; Z79.4 Long term (current) use of insulin; Z87.891 Personal history of nicotine dependence; I25.10 Atherosclerotic heart disease of native coronary artery without angina pectoris; E78.5 Hyperlipidemia, unspecified; I12.9 Hypertensive chronic kidney disease with stage 1 through stage 4 chronic kidney disease, or unspecified chronic kidney disease; N18.9 Chronic kidney disease, unspecified; Z86.73 Personal history of transient ischemic attack (TIA), and cerebral infarction without residual deficits
CPT/HCPCS: 36416; 70450; 71045; 80053; 82962; 85025; 93005; 96361; 96374; 99285; J1815; J7030

== ENCOUNTER 2025-05-12 10:43 | Inpatient (IN) | payer MEDICARE, MEDICAID, SELFPAY ==
[2025-05-12] VITALS (11 sets, daily range): BP systolic 133–174; BP diastolic 76–106; PULSE 81–96; RESP 16–20; TEMP 36.8–37; O2SAT 94–100; BMI 20.9
[2025-05-12 10:59] LABS: Hematocrit 40.3 % (37-53); Hemoglobin 12.90 g/dL (11.27-16.99); Mean Corpuscular HGB Conc 32.0 g/dL (30-55); Mean Corpuscular Hemoglobin 29.6 pg (27-33); Mean Corpuscular Volume 92.4 fl (82-101); Nucleated Red Blood Cells % 0 %; Platelet Count 412 10^3/cmm (157-399); Red Blood Count 4.36 10^6/uL (3.85-5.65); White Blood Count 9.12 10^3/uL (3.29-11.43)
--- OUTSIDE RECORDS SUMMARY | 2025-05-12 10:59 | XMS_ITS | Continuity of Care Document ---
Author Organization [employer] [facility] ([facility]) Address [address] [place] [address] Insurance Providers Payer Plan Claims Address Claims Phone Policy Number Group Number Relation Employer Guarantor Name Guarantor Guarantor Address Guarantor Phone [employer] A M[employer] ADV [address] [address], [facility] [address] tel:[phone] [id number] MED[employer] [place] MEDIC AID tel:[phone] [id number] Problems Condition ICD9 code ICD10 code SNOMED code Start Date End Date S tatus Paroxysmal atrial fibrillation I48.0 03/28/2022 Active Unspecified atrial fibrillation I48.91 04/05/2021 Active [facility] (current) use of anticoagulants Z79.01 04/05/2021 Active 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 Refere nce Range Blood chemistry[[id number]] Glucose [Mass/volume] in Serum or Plasma [2345-7] 05/12/2025 01:27 PM 148 mg/dL N Blood chemistry[[id number]] Glucose [Mass/volume] in Serum or Plasma [2345-7] 05/11/2025 11:05 AM 245 mg/dL N Blood chemistry[[id number]] Glucose [Mass/volume] in Serum or Plasma [2345-7] 05/11/2025 11:04 AM 245 mg/dL N Blood chemistry[[id number]] Glucose [Mass/volume] in Serum or Plasma [2345-7] 05/11/2025 04:20 PM 124 mg/dL N Blood chemistry[[id number]] Glucose [Mass/volume] in Serum or Plasma [2345-7] 05/11/2025 09:41 AM 107 mg/dL N Blood chemistry[[id number]] Glucose [Mass/volume] in Serum or Plasma [2345-7] 05/11/2025 12:00 PM 120 mg/dL N Blood chemistry[[id number]] Glucose [Mass/volume] in Serum or Plasma [2345-7] 05/11/2025 10:30 AM 129 mg/dL N Blood chemistry[[id number]] Glucose [Mass/volume] in Serum or Plasma [2345-7] 05/10/2025 04:27 PM 367 mg/dL N Blood chemistry[[id number]] Glucose [Mass/volume] in Serum or Plasma [2345-7] 05/10/2025 04:56 PM 334 mg/dL N Blood chemistry[[id number]] Glucose [Mass/volume] in Serum or Plasma [2345-7] 05/10/2025 09:57 AM 209 mg/dL N Blood chemistry[[id number]] Glucose [Mass/volume] in Serum or Plasma [2345-7] 05/10/2025 01:33 PM 166 mg/dL N Blood chemistry[[id number]] Glucose [Mass/volume] in Serum or Plasma [2345-7] 05/10/2025 10:57 AM 184 mg/dL N Blood chemistry[[id number]] Glucose [Mass/volume] in Serum or Plasma [2345-7] 05/09/2025 03:38 PM 233 mg/dL N Blood chemistry[[id number]] Glucose [Mass/volume] in Serum or Plasma [2345-7] 05/09/2025 10:33 AM 224 mg/dL N Blood chemistry[[id number]] Glucose [Mass/volume] in Serum or Plasma [2345-7] 05/09/2025 04:51 PM 399 mg/dL N Blood chemistry[[id number]] Glucose [Mass/volume] in Serum or Plasma [2345-7] 05/09/2025 10:47 AM 207 mg/dL N Blood chemistry[[id number]] Glucose [Mass/volume] in Serum or Plasma [2345-7] 05/08/2025 02:15 PM 410 mg/dL N Blood chemistry[[id number]] Glucose [Mass/volume] in Serum or Plasma [2345-7] 05/08/2025 03:44 PM 358 mg/dL N Blood chemistry[[id number]] Glucose [Mass/volume] in Serum or Plasma [2345-7] 05/08/2025 08:51 AM 416 mg/dL N Blood chemistry[[id number]] Glucose [Mass/volume] in Serum or Plasma [2345-7] 05/08/2025 11:41 AM 284 mg/dL N Blood chemistry[[id number]] Glucose [Mass/volume] in Serum or Plasma [2345-7] 05/07/2025 02:38 PM 378 mg/dL N Blood chemistry[[id number]] Glucose [Mass/volume] in Serum or Plasma [2345-7] 05/07/2025 11:35 AM 378 mg/dL N Blood chemistry[[id number]] Glucose [Mass/volume] in Serum or Plasma [2345-7] 05/07/2025 10:32 AM 311 mg/dL N Blood chemistry[[id number]] Glucose [Mass/volume] in Serum or Plasma [2345-7] 05/07/2025 08:42 AM 215 mg/dL N Blood chemistry[[id number]] Glucose [Mass/volume] in Serum or Plasma [2345-7] 05/07/2025 01:17 PM 262 mg/dL N Blood chemistry[[id number]] Glucose [Mass/volume] in Serum or Plasma [2345-7] 05/06/2025 11:37 AM 270 mg/dL N Blood chemistry[[id number]] Glucose [Mass/volume] in Serum or Plasma [2345-7] 05/06/2025 05:55 PM 202 mg/dL N Blood chemistry[[id number]] Glucose [Mass/volume] in Serum or Plasma [2345-7] 05/06/2025 09:33 AM 262 mg/dL N Glucose [Mass/volume] in Serum or Plasma [2345-7] 05/06/2025 09:33 AM 262 mg/dL N Blood chemistry[[id number]] Glucose [Mass/volume] in Serum or Plasma [2345-7] 05/06/2025 11:58 AM 244 mg/dL N Blood chemistry[[id number]] Glucose [Mass/volume] in Serum or Plasma [2345-7] 05/05/2025 11:24 AM 310 mg/dL N Blood chemistry[[id number]] Glucose [Mass/volume] in Serum or Plasma [2345-7] 05/05/2025 05:00 PM 246 mg/dL N Blood chemistry[[id number]] Glucose [Mass/volume] in Serum or Plasma [2345-7] 05/05/2025 09:15 AM 294 mg/dL N Blood chemistry[[id number]] Glucose [Mass/volume] in Serum or Plasma [2345-7] 05/05/2025 01:30 PM 196 mg/dL N Blood chemistry[[id number]] Glucose [Mass/volume] in Serum or Plasma [2345-7] 05/04/2025 12:26 PM 270 mg/dL N Blood chemistry[[id number]] Glucose [Mass/volume] in Serum or Plasma [2345-7] 05/04/2025 11:31 AM 270 mg/dL N Blood chemistry[[id number]] Glucose [Mass/volume] in Serum or Plasma [2345-7] 05/04/2025 04:34 PM 365 mg/dL N Blood chemistry[[id number]] Glucose [Mass/volume] in Serum or Plasma [2345-7] 05/04/2025 09:44 AM 142 mg/dL N Blood chemistry[[id number]] Glucose [Mass/volume] in Serum or Plasma [2345-7] 05/04/2025 12:21 PM 143 mg/dL N Blood chemistry[[id number]] Glucose [Mass/volume] in Serum or Plasma [2345-7] 05/04/2025 10:44 AM 160 mg/dL N Blood chemistry[[id number]] Glucose [Mass/volume] in Serum or Plasma [2345-7] 05/03/2025 01:13 PM 474 mg/dL N Blood chemistry[[id number]] Glucose [Mass/volume] in Serum or Plasma [2345-7] 05/03/2025 03:42 PM 549 mg/dL N Blood chemistry[[id number]] Glucose [Mass/volume] in Serum or Plasma [2345-7] 05/03/2025 08:31 AM 341 mg/dL N Blood chemistry[[id number]] Glucose [Mass/volume] in Serum or Plasma [2345-7] 05/03/2025 10:28 AM 174 mg/dL N Blood chemistry[[id number]] Glucose [Mass/volume] in Serum or Plasma [2345-7] 05/02/2025 02:06 PM 263 mg/dL N Blood chemistry[[id number]] Glucose [Mass/volume] in Serum or Plasma [2345-7] 05/02/2025 03:11 PM 439 mg/dL N Blood chemistry[[id number]] Glucose [Mass/volume] in Serum or Plasma [2345-7] 05/02/2025 09:12 AM 311 mg/dL N Blood chemistry[[id number]] Glucose [Mass/volume] in Serum or Plasma [2345-7] 05/02/2025 10:54 AM 209 mg/dL N Blood chemistry[[id number]] Glucose [Mass/volume] in Serum or Plasma [2345-7] 05/01/2025 04:52 PM 290 mg/dL N Blood chemistry[[id number]] Glucose [Mass/volume] in Serum or Plasma [2345-7] 05/01/2025 04:11 PM 306 mg/dL N Blood chemistry[[id number]] Glucose [Mass/volume] in Serum or Plasma [2345-7] 05/01/2025 08:35 AM 326 mg/dL N Blood chemistry[[id number]] Glucose [Mass/volume] in Serum or Plasma [2345-7] 05/01/2025 11:48 AM 131 mg/dL N Blood chemistry[[id number]] Glucose [Mass/volume] in Serum or Plasma [2345-7] 05/01/2025 10:05 AM 134 mg/dL N Blood chemistry[[id number]] Glucose [Mass/volume] in Serum or Plasma [2345-7] 04/30/2025 11:28 AM 445 mg/dL N Blood chemistry[[id number]] Glucose [Mass/volume] in Serum or Plasma [2345-7] 04/30/2025 05:27 PM 312 mg/dL N Blood chemistry[[id number]] Glucose [Mass/volume] in Serum or Plasma [2345-7] 04/30/2025 01:36 PM 297 mg/dL N Blood chemistry[[id number]] Glucose [Mass/volume] in Serum or Plasma [2345-7] 04/29/2025 12:13 PM 385 mg/dL N Blood chemistry[[id number]] Glucose [Mass/volume] in Serum or Plasma [2345-7] 04/22/2025 11:41 AM 236 mg/dL N Blood chemistry[[id number]] Glucose [Mass/volume] in Serum or Plasma [2345-7] 04/22/2025 04:51 PM 255 mg/dL N Blood chemistry[[id number]] Glucose [Mass/volume] in Serum or Plasma [2345-7] 04/22/2025 08:44 AM 255 mg/dL N Blood chemistry[[id number]] Glucose [Mass/volume] in Serum or Plasma [2345-7] 04/22/2025 11:33 AM 220 mg/dL N Blood chemistry[[id number]] Glucose [Mass/volume] in Serum or Plasma [2345-7] 04/21/2025 01:12 PM 392 mg/dL N Blood chemistry[[id number]] Glucose [Mass/volume] in Serum or Plasma [2345-7] 04/21/2025 03:56 PM 253 mg/dL N Blood chemistry[[id number]] Glucose [Mass/volume] in Serum or Plasma [2345-7] 04/21/2025 09:32 AM 289 mg/dL N Blood chemistry[[id number]] Glucose [Mass/volume] in Serum or Plasma [2345-7] 04/21/2025 11:50 AM 221 mg/dL N Blood chemistry[[id number]] Glucose [Mass/volume] in Serum or Plasma [2345-7] 04/20/2025 11:09 AM 254 mg/dL N Blood chemistry[[id number]] Glucose [Mass/volume] in Serum or Plasma [2345-7] 04/20/2025 05:40 PM 319 mg/dL N Blood chemistry[[id number]] Glucose [Mass/volume] in Serum or Plasma [2345-7] 04/20/2025 09:49 AM 214 mg/dL N Blood chemistry[[id number]] Glucose [Mass/volume] in Serum or Plasma [2345-7] 04/20/2025 02:00 PM 191 mg/dL N Blood chemistry[[id number]] Glucose [Mass/volume] in Serum or Plasma [2345-7] 04/20/2025 10:20 AM 178 mg/dL N Blood chemistry[[id number]] Glucose [Mass/volume] in Serum or Plasma [2345-7] 04/20/2025 05:36 PM 355 mg/dL N Blood chemistry[[id number]] Glucose [Mass/volume] in Serum or Plasma [2345-7] 04/19/2025 04:18 PM 205 mg/dL N Blood chemistry[[id number]] Glucose [Mass/volume] in Serum or Plasma [2345-7] 04/19/2025 09:15 AM 234 mg/dL N Glucose [Mass/volume] in Serum or Plasma [2345-7] 04/19/2025 09:15 AM 234 mg/dL N Blood chemistry[[id number]] Glucose [Mass/volume] in Serum or Plasma [2345-7] 04/19/2025 11:50 AM 171 mg/dL N Blood chemistry[[id number]] Glucose [Mass/volume] in Serum or Plasma [2345-7] 04/19/2025 10:19 AM 185 mg/dL N Blood chemistry[[id number]] Glucose [Mass/volume] in Serum or Plasma [2345-7] 04/18/2025 02:58 PM 286 mg/dL N Blood chemistry[[id number]] Glucose [Mass/volume] in Serum or Plasma [2345-7] 04/18/2025 04:04 PM 234 mg/dL N Blood chemistry[[id number]] Glucose [Mass/volume] in Serum or Plasma [2345-7] 04/18/2025 08:57 AM 213 mg/dL N Blood chemistry[[id number]] Glucose [Mass/volume] in Serum or Plasma [2345-7] 04/18/2025 08:56 AM 213 mg/dL N Blood chemistry[[id number]] Glucose [Mass/volume] in Serum or Plasma [2345-7] 04/18/2025 12:30 PM 162 mg/dL N Blood chemistry[[id number]] Glucose [Mass/volume] in Serum or Plasma [2345-7] 04/18/2025 10:19 AM 176 mg/dL N Blood chemistry[[id number]] Glucose [Mass/volume] in Serum or Plasma [2345-7] 04/17/2025 04:21 PM 206 mg/dL N Blood chemistry[[id number]] Glucose [Mass/volume] in Serum or Plasma [2345-7] 04/17/2025 03:51 PM 328 mg/dL N Blood chemistry[[id number]] Glucose [Mass/volume] in Serum or Plasma [2345-7] 04/17/2025 08:26 AM 225 mg/dL N Blood chemistry[[id number]] Glucose [Mass/volume] in Serum or Plasma [2345-7] 04/17/2025 11:18 AM 192 mg/dL N Blood chemistry[[id number]] Glucose [Mass/volume] in Serum or Plasma [2345-7] 04/16/2025 11:41 AM 359 mg/dL N Blood chemistry[[id number]] Glucose [Mass/volume] in Serum or Plasma [2345-7] 04/16/2025 10:46 AM 237 mg/dL N Blood chemistry[[id number]] Glucose [Mass/volume] in Serum or Plasma [2345-7] 04/16/2025 06:15 AM 199 mg/dL N Blood chemistry[[id number]] Glucose [Mass/volume] in Serum or Plasma [2345-7] 04/16/2025 12:09 PM 202 mg/dL N Blood chemistry[[id number]] Glucose [Mass/volume] in Serum or Plasma [2345-7] 04/15/2025 12:50 PM 365 mg/dL N Blood chemistry[[id number]] Glucose [Mass/volume] in Serum or Plasma [2345-7] 04/15/2025 04:02 PM 387 mg/dL N Blood chemistry[[id number]] Glucose [Mass/volume] in Serum or Plasma [2345-7] 04/15/2025 08:22 AM 154 mg/dL N Blood chemistry[[id number]] Glucose [Mass/volume] in Serum or Plasma [2345-7] 04/15/2025 11:39 AM 213 mg/dL N Blood chemistry[[id number]] Glucose [Mass/volume] in Serum or Plasma [2345-7] 04/14/2025 12:57 PM 311 mg/dL N Blood chemistry[[id number]] Glucose [Mass/volume] in Serum or Plasma [2345-7] 04/14/2025 04:08 PM 329 mg/dL N Blood chemistry[[id number]] Glucose [Mass/volume] in Serum or Plasma [2345-7] 04/14/2025 08:50 AM 195 mg/dL N Blood chemistry[[id number]] Glucose [Mass/volume] in Serum or Plasma [2345-7] 04/14/2025 11:25 AM 168 mg/dL N Blood chemistry[[id number]] Glucose [Mass/volume] in Serum or Plasma [2345-7] 04/13/2025 04:07 PM 213 mg/dL N Blood chemistry[[id number]] Glucose [Mass/volume] in Serum or Plasma [2345-7] 04/13/2025 11:49 AM 277 mg/dL N Blood chemistry[[id number]] Glucose [Mass/volume] in Serum or Plasma [2345-7] 04/13/2025 09:11 AM 144 mg/dL N Blood chemistry[[id number]] Glucose [Mass/volume] in Serum or Plasma [2345-7] 04/13/2025 11:29 AM 148 mg/dL N Blood chemistry[[id number]] Glucose [Mass/volume] in Serum or Plasma [2345-7] 04/13/2025 10:36 AM 160 mg/dL N Blood chemistry[[id number]] Glucose [Mass/volume] in Serum or Plasma [2345-7] 04/13/2025 05:29 PM 405 mg/dL N Blood chemistry[[id number]] Glucose [Mass/volume] in Serum or Plasma [2345-7] 04/12/2025 04:08 PM 311 mg/dL N Blood chemistry[[id number]] Glucose [Mass/volume] in Serum or Plasma [2345-7] 04/12/2025 04:07 PM 311 mg/dL N Blood chemistry[[id number]] Glucose [Mass/volume] in Serum or Plasma [2345-7] 04/12/2025 09:16 AM 249 mg/dL N Blood chemistry[[id number]] Glucose [Mass/volume] in Serum or Plasma [2345-7] 04/12/2025 09:11 AM 248 mg/dL N Blood chemistry[[id number]] Glucose [Mass/volume] in Serum or Plasma [2345-7] 04/12/2025 12:09 PM 160 mg/dL N Blood chemistry[[id number]] Glucose [Mass/volume] in Serum or Plasma [2345-7] 04/12/2025 10:23 AM 173 mg/dL N Blood chemistry[[id number]] Glucose [Mass/volume] in Serum or Plasma [2345-7] 04/11/2025 04:40 PM 301 mg/dL N Blood chemistry[[id number]] Glucose [Mass/volume] in Serum or Plasma [2345-7] 04/11/2025 03:14 PM 193 mg/dL N Blood chemistry[[id number]] Glucose [Mass/volume] in Serum or Plasma [2345-7] 04/11/2025 09:12 AM 284 mg/dL N Blood chemistry[[id number]] Glucose [Mass/volume] in Serum or Plasma [2345-7] 04/11/2025 10:16 AM 170 mg/dL N Blood chemistry[[id number]] Glucose [Mass/volume] in Serum or Plasma [2345-7] 04/11/2025 10:01 AM 178 mg/dL N Blood chemistry[[id number]] Glucose [Mass/volume] in Serum or Plasma [2345-7] 04/10/2025 02:40 PM 213 mg/dL N Blood chemistry[[id number]] Glucose [Mass/volume] in Serum or Plasma [2345-7] 04/10/2025 09:03 AM 270 mg/dL N Blood chemistry[[id number]] Glucose [Mass/volume] in Serum or Plasma [2345-7] 04/10/2025 04:33 PM 173 mg/dL N Blood chemistry[[id number]] Glucose [Mass/volume] in Serum or Plasma [2345-7] 04/10/2025 12:01 PM 220 mg/dL N Blood chemistry[[id number]] Glucose [Mass/volume] in Serum or Plasma [2345-7] 04/10/2025 10:28 AM 264 mg/dL N Blood chemistry[[id number]] Glucose [Mass/volume] in Serum or Plasma [2345-7] 04/09/2025 04:27 PM 222 mg/dL N Blood chemistry[[id number]] Glucose [Mass/volume] in Serum or Plasma [2345-7] 04/09/2025 04:26 PM 222 mg/dL N Blood chemistry[[id number]] Glucose [Mass/volume] in Serum or Plasma [2345-7] 04/09/2025 02:43 PM 318 mg/dL N Blood chemistry[[id number]] Glucose [Mass/volume] in Serum or Plasma [2345-7] 04/09/2025 11:42 AM 213 mg/dL N Blood chemistry[[id number]] Glucose [Mass/volume] in Serum or Plasma [2345-7] 04/09/2025 11:39 AM 213 mg/dL N Blood chemistry[[id number]] Glucose [Mass/volume] in Serum or Plasma [2345-7] 04/09/2025 09:04 AM 216 mg/dL N Glucose [Mass/volume] in Serum or Plasma [2345-7] 04/09/2025 09:04 AM 216 mg/dL N Blood chemistry[[id number]] Glucose [Mass/volume] in Serum or Plasma [2345-7] 04/08/2025 04:33 PM 346 mg/dL N Blood chemistry[[id number]] Glucose [Mass/volume] in Serum or Plasma [2345-7] 04/08/2025 12:44 PM 336 mg/dL N Blood chemistry[[id number]] Glucose [Mass/volume] in Serum or Plasma [2345-7] 04/08/2025 11:45 AM 194 mg/dL N Blood chemistry[[id number]] Glucose [Mass/volume] in Serum or Plasma [2345-7] 04/08/2025 08:56 AM 230 mg/dL N Blood chemistry[[id number]] Glucose [Mass/volume] in Serum or Plasma [2345-7] 04/07/2025 03:42 PM 236 mg/dL N Blood chemistry[[id number]] Glucose [Mass/volume] in Serum or Plasma [2345-7] 04/07/2025 12:47 PM 284 mg/dL N Blood chemistry[[id number]] Glucose [Mass/volume] in Serum or Plasma [2345-7] 04/07/2025 10:50 AM 195 mg/dL N Blood chemistry[[id number]] Glucose [Mass/volume] in Serum or Plasma [2345-7] 04/07/2025 08:30 AM 231 mg/dL N Blood chemistry[[id number]] Glucose [Mass/volume] in Serum or Plasma [2345-7] 04/06/2025 03:46 PM 144 mg/dL N Blood chemistry[[id number]] Glucose [Mass/volume] in Serum or Plasma [2345-7] 04/06/2025 02:48 PM 327 mg/dL N Blood chemistry[[id number]] Glucose [Mass/volume] in Serum or Plasma [2345-7] 04/06/2025 10:49 AM 86 mg/dL N Blood chemistry[[id number]] Glucose [Mass/volume] in Serum or Plasma [2345-7] 04/06/2025 08:34 AM 232 mg/dL N Blood chemistry[[id number]] Glucose [Mass/volume] in Serum or Plasma [2345-7] 04/05/2025 04:47 PM 298 mg/dL N Blood chemistry[[id number]] Glucose [Mass/volume] in Serum or Plasma [2345-7] 04/05/2025 03:57 PM 175 mg/dL N Blood chemistry[[id number]] Glucose [Mass/volume] in Serum or Plasma [2345-7] 04/05/2025 11:55 AM 109 mg/dL N Blood chemistry[[id number]] Glucose [Mass/volume] in Serum or Plasma [2345-7] 04/05/2025 09:27 AM 265 mg/dL N Blood chemistry[[id number]] Glucose [Mass/volume] in Serum or Plasma [2345-7] 04/04/2025 03:39 PM 267 mg/dL N Blood chemistry[[id number]] Glucose [Mass/volume] in Serum or Plasma [2345-7] 04/04/2025 02:29 PM 328 mg/dL N Blood chemistry[[id number]] Glucose [Mass/volume] in Serum or Plasma [2345-7] 04/04/2025 11:54 AM 142 mg/dL N Blood chemistry[[id number]] Glucose [Mass/volume] in Serum or Plasma [2345-7] 04/04/2025 10:05 AM 127 mg/dL N Blood chemistry[[id number]] Glucose [Mass/volume] in Serum or Plasma [2345-7] 04/04/2025 08:49 AM 309 mg/dL N Blood chemistry[[id number]] Glucose [Mass/volume] in Serum or Plasma [2345-7] 04/03/2025 04:44 PM 154 mg/dL N Blood chemistry[[id number]] Glucose [Mass/volume] in Serum or Plasma [2345-7] 03/31/2025 04:22 PM 262 mg/dL N Blood chemistry[[id number]] Glucose [Mass/volume] in Serum or Plasma [2345-7] 03/31/2025 11:43 AM 168 mg/dL N Blood chemistry[[id number]] Glucose [Mass/volume] in Serum or Plasma [2345-7] 03/30/2025 03:54 PM 219 mg/dL N Blood chemistry[[id number]] Glucose [Mass/volume] in Serum or Plasma [2345-7] 03/30/2025 12:07 PM 197 mg/dL N Blood chemistry[[id number]] Glucose [Mass/volume] in Serum or Plasma [2345-7] 03/30/2025 11:33 AM 299 mg/dL N Blood chemistry[[id number]] Glucose [Mass/volume] in Serum or Plasma [2345-7] 03/30/2025 10:09 AM 292 mg/dL N Blood chemistry[[id number]] Glucose [Mass/volume] in Serum or Plasma [2345-7] 03/30/2025 09:25 AM 375 mg/dL N Blood chemistry[[id number]] Glucose [Mass/volume] in Serum or Plasma [2345-7] 03/29/2025 05:06 PM 223 mg/dL N Blood chemistry[[id number]] Glucose [Mass/volume] in Serum or Plasma [2345-7] 03/29/2025 04:48 PM 266 mg/dL N Blood chemistry[[id number]] Glucose [Mass/volume] in Serum or Plasma [2345-7] 03/29/2025 04:47 PM 266 mg/dL N Blood chemistry[[id number]] Glucose [Mass/volume] in Serum or Plasma [2345-7] 03/29/2025 04:37 PM 266 mg/dL N Blood chemistry[[id number]] Glucose [Mass/volume] in Serum or Plasma [2345-7] 03/29/2025 12:32 PM 267 mg/dL N Blood chemistry[[id number]] Glucose [Mass/volume] in Serum or Plasma [2345-7] 03/29/2025 11:37 AM 168 mg/dL N Blood chemistry[[id number]] Glucose [Mass/volume] in Serum or Plasma [2345-7] 03/29/2025 10:03 AM 231 mg/dL N Blood chemistry[[id number]] Glucose [Mass/volume] in Serum or Plasma [2345-7] 03/29/2025 09:06 AM 212 mg/dL N Blood chemistry[[id number]] Glucose [Mass/volume] in Serum or Plasma [2345-7] 03/28/2025 04:00 PM 336 mg/dL N Blood chemistry[[id number]] Glucose [Mass/volume] in Serum or Plasma [2345-7] 03/28/2025 03:59 PM 336 mg/dL N Blood chemistry[[id number]] Glucose [Mass/volume] in Serum or Plasma [2345-7] 03/28/2025 11:52 AM 204 mg/dL N Blood chemistry[[id number]] Glucose [Mass/volume] in Serum or Plasma [2345-7] 03/28/2025 10:17 AM 199 mg/dL N Blood chemistry[[id number]] Glucose [Mass/volume] in Serum or Plasma [2345-7] 03/28/2025 09:55 AM 230 mg/dL N Blood chemistry[[id number]] Glucose [Mass/volume] in Serum or Plasma [2345-7] 03/28/2025 09:53 AM 230 mg/dL N Blood chemistry[[id number]] Glucose [Mass/volume] in Serum or Plasma [2345-7] 03/27/2025 04:07 PM 414 mg/dL N Blood chemistry[[id number]] Glucose [Mass/volume] in Serum or Plasma [2345-7] 03/27/2025 03:09 PM 201 mg/dL N Blood chemistry[[id number]] Glucose [Mass/volume] in Serum or Plasma [2345-7] 03/27/2025 10:53 AM 190 mg/dL N Blood chemistry[[id number]] Glucose [Mass/volume] in Serum or Plasma [2345-7] 03/27/2025 08:51 AM 176 mg/dL N Blood chemistry[[id number]] Glucose [Mass/volume] in Serum or Plasma [2345-7] 03/26/2025 04:14 PM 259 mg/dL N Blood chemistry[[id number]] Glucose [Mass/volume] in Serum or Plasma [2345-7] 03/26/2025 03:41 PM 290 mg/dL N Blood chemistry[[id number]] Glucose [Mass/volume] in Serum or Plasma [2345-7] 03/26/2025 12:50 PM 174 mg/dL N Blood chemistry[[id number]] Glucose [Mass/volume] in Serum or Plasma [2345-7] 03/26/2025 09:52 AM 287 mg/dL N Blood chemistry[[id number]] Glucose [Mass/volume] in Serum or Plasma [2345-7] 03/25/2025 04:22 PM 210 mg/dL N Blood chemistry[[id number]] Glucose [Mass/volume] in Serum or Plasma [2345-7] 03/25/2025 11:45 AM 89 mg/dL N Blood chemistry[[id number]] Glucose [Mass/volume] in Serum or Plasma [2345-7] 03/25/2025 11:25 AM 245 mg/dL N Blood chemistry[[id number]] Glucose [Mass/volume] in Serum or Plasma [2345-7] 03/25/2025 08:55 AM 142 mg/dL N Blood chemistry[[id number]] Glucose [Mass/volume] in Serum or Plasma [2345-7] 03/24/2025 04:58 PM 389 mg/dL N Glucose [Mass/volume] in Serum or Plasma [2345-7] 03/24/2025 04:58 PM 389 mg/dL N Blood chemistry[[id number]] Glucose [Mass/volume] in Serum or Plasma [2345-7] 03/24/2025 01:05 PM 269 mg/dL N Blood chemistry[[id number]] Glucose [Mass/volume] in Serum or Plasma [2345-7] 03/24/2025 01:02 PM 133 mg/dL N Blood chemistry[[id number]] Glucose [Mass/volume] in Serum or Plasma [2345-7] 03/24/2025 09:46 AM 214 mg/dL N Blood chemistry[[id number]] Glucose [Mass/volume] in Serum or Plasma [2345-7] 03/23/2025 04:18 PM 241 mg/dL N Blood chemistry[[id number]] Glucose [Mass/volume] in Serum or Plasma [2345-7] 03/23/2025 12:03 PM 109 mg/dL N Blood chemistry[[id number]] Glucose [Mass/volume] in Serum or Plasma [2345-7] 03/23/2025 11:39 AM 241 mg/dL N Blood chemistry[[id number]] Glucose [Mass/volume] in Serum or Plasma [2345-7] 03/23/2025 10:36 AM 117 mg/dL N Blood chemistry[[id number]] Glucose [Mass/volume] in Serum or Plasma [2345-7] 03/23/2025 09:00 AM 263 mg/dL N Blood chemistry[[id number]] Glucose [Mass/volume] in Serum or Plasma [2345-7] 03/22/2025 04:31 PM 317 mg/dL N Blood chemistry[[id number]] Glucose [Mass/volume] in Serum or Plasma [2345-7] 03/22/2025 12:25 PM 225 mg/dL N Blood chemistry[[id number]] Glucose [Mass/volume] in Serum or Plasma [2345-7] 03/22/2025 10:21 AM 191 mg/dL N Blood chemistry[[id number]] Glucose [Mass/volume] in Serum or Plasma [2345-7] 03/22/2025 08:58 AM 269 mg/dL N Blood chemistry[[id number]] Glucose [Mass/volume] in Serum or Plasma [2345-7] 03/21/2025 04:14 PM 259 mg/dL N Blood chemistry[[id number]] Glucose [Mass/volume] in Serum or Plasma [2345-7] 03/21/2025 03:22 PM 254 mg/dL N Blood chemistry[[id number]] Glucose [Mass/volume] in Serum or Plasma [2345-7] 03/21/2025 11:42 AM 237 mg/dL N Blood chemistry[[id number]] Glucose [Mass/volume] in Serum or Plasma [2345-7] 03/21/2025 10:02 AM 274 mg/dL N Blood chemistry[[id number]] Glucose [Mass/volume] in Serum or Plasma [2345-7] 03/21/2025 09:11 AM 269 mg/dL N Blood chemistry[[id number]] Glucose [Mass/volume] in Serum or Plasma [2345-7] 03/21/2025 06:56 AM 200 mg/dL N Blood chemistry[[id number]] Glucose [Mass/volume] in Serum or Plasma [2345-7] 03/20/2025 03:41 PM 396 mg/dL N Blood chemistry[[id number]] Glucose [Mass/volume] in Serum or Plasma [2345-7] 03/20/2025 11:33 AM 86 mg/dL N Blood chemistry[[id number]] Glucose [Mass/volume] in Serum or Plasma [2345-7] 03/20/2025 08:39 AM 330 mg/dL N Blood chemistry[[id number]] Glucose [Mass/volume] in Serum or Plasma [2345-7] 03/19/2025 04:12 PM 205 mg/dL N Blood chemistry[[id number]] Glucose [Mass/volume] in Serum or Plasma [2345-7] 03/19/2025 11:47 AM 139 mg/dL N Blood chemistry[[id number]] Glucose [Mass/volume] in Serum or Plasma [2345-7] 03/19/2025 11:31 AM 166 mg/dL N Blood chemistry[[id number]] Glucose [Mass/volume] in Serum or Plasma [2345-7] 03/19/2025 09:27 AM 198 mg/dL N Blood chemistry[[id number]] Glucose [Mass/volume] in Serum or Plasma [2345-7] 03/18/2025 03:25 PM 302 mg/dL N Blood chemistry[[id number]] Glucose [Mass/volume] in Serum or Plasma [2345-7] 03/18/2025 01:01 PM 307 mg/dL N Blood chemistry[[id number]] Glucose [Mass/volume] in Serum or Plasma [2345-7] 03/18/2025 11:45 AM 112 mg/dL N Blood chemistry[[id number]] Glucose [Mass/volume] in Serum or Plasma [2345-7] 03/18/2025 08:24 AM 231 mg/dL N Blood chemistry[[id number]] Glucose [Mass/volume] in Serum or Plasma [2345-7] 03/17/2025 03:54 PM 344 mg/dL N Blood chemistry[[id number]] Glucose [Mass/volume] in Serum or Plasma [2345-7] 03/17/2025 11:42 AM 124 mg/dL N Blood chemistry[[id number]] Glucose [Mass/volume] in Serum or Plasma [2345-7] 03/17/2025 11:36 AM 244 mg/dL N Blood chemistry[[id number]] Glucose [Mass/volume] in Serum or Plasma [2345-7] 03/17/2025 08:56 AM 277 mg/dL N Blood chemistry[[id number]] Glucose [Mass/volume] in Serum or Plasma [2345-7] 03/16/2025 11:45 AM 230 mg/dL N Blood chemistry[[id number]] Glucose [Mass/volume] in Serum or Plasma [2345-7] 03/16/2025 11:23 AM 97 mg/dL N Blood chemistry[[id number]] Glucose [Mass/volume] in Serum or Plasma [2345-7] 03/16/2025 10:24 AM 104 mg/dL N Blood chemistry[[id number]] Glucose [Mass/volume] in Serum or Plasma [2345-7] 03/16/2025 09:13 AM 195 mg/dL N Blood chemistry[[id number]] Glucose [Mass/volume] in Serum or Plasma [2345-7] 03/15/2025 04:18 PM 204 mg/dL N Blood chemistry[[id number]] Glucose [Mass/volume] in Serum or Plasma [2345-7] 03/15/2025 02:04 PM 348 mg/dL N Blood chemistry[[id number]] Glucose [Mass/volume] in Serum or Plasma [2345-7] 03/15/2025 11:51 AM 256 mg/dL N Blood chemistry[[id number]] Glucose [Mass/volume] in Serum or Plasma [2345-7] 03/15/2025 10:26 AM 256 mg/dL N Blood chemistry[[id number]] Glucose [Mass/volume] in Serum or Plasma [2345-7] 03/15/2025 08:53 AM 244 mg/dL N Blood chemistry[[id number]] Glucose [Mass/volume] in Serum or Plasma [2345-7] 03/14/2025 04:33 PM 342 mg/dL N Blood chemistry[[id number]] Glucose [Mass/volume] in Serum or Plasma [2345-7] 03/14/2025 02:10 PM 275 mg/dL N Blood chemistry[[id number]] Glucose [Mass/volume] in Serum or Plasma [2345-7] 03/14/2025 11:43 AM 232 mg/dL N Blood chemistry[[id number]] Glucose [Mass/volume] in Serum or Plasma [2345-7] 03/14/2025 10:45 AM 228 mg/dL N Blood chemistry[[id number]] Glucose [Mass/volume] in Serum or Plasma [2345-7] 03/14/2025 09:24 AM 355 mg/dL N Blood chemistry[[id number]] Glucose [Mass/volume] in Serum or Plasma [2345-7] 03/13/2025 05:04 PM 268 mg/dL N Blood chemistry[[id number]] Glucose [Mass/volume] in Serum or Plasma [2345-7] 03/13/2025 03:27 PM 210 mg/dL N Blood chemistry[[id number]] Glucose [Mass/volume] in Serum or Plasma [2345-7] 03/13/2025 12:06 PM 196 mg/dL N Blood chemistry[[id number]] Glucose [Mass/volume] in Serum or Plasma [2345-7] 03/13/2025 10:33 AM 213 mg/dL N Blood chemistry[[id number]] Glucose [Mass/volume] in Serum or Plasma [2345-7] 03/13/2025 09:13 AM 314 mg/dL N Blood chemistry[[id number]] Glucose [Mass/volume] in Serum or Plasma [2345-7] 03/12/2025 03:40 PM 284 mg/dL N Blood chemistry[[id number]] Glucose [Mass/volume] in Serum or Plasma [2345-7] 03/12/2025 02:53 PM 363 mg/dL N Blood chemistry[[id number]] Glucose [Mass/volume] in Serum or Plasma [2345-7] 03/12/2025 11:17 AM 237 mg/dL N Blood chemistry[[id number]] Glucose [Mass/volume] in Serum or Plasma [2345-7] 03/12/2025 08:47 AM 321 mg/dL N Blood chemistry[[id number]] Glucose [Mass/volume] in Serum or Plasma [2345-7] 03/11/2025 04:34 PM 206 mg/dL N Blood chemistry[[id number]] Glucose [Mass/volume] in Serum or Plasma [2345-7] 03/11/2025 01:10 PM 206 mg/dL N Blood chemistry[[id number]] Glucose [Mass/volume] in Serum or Plasma [2345-7] 03/11/2025 11:25 AM 200 mg/dL N Blood chemistry[[id number]] Glucose [Mass/volume] in Serum or Plasma [2345-7] 03/11/2025 08:59 AM 226 mg/dL N Blood chemistry[[id number]] Glucose [Mass/volume] in Serum or Plasma [2345-7] 03/10/2025 05:53 PM 165 mg/dL N Blood chemistry[[id number]] Glucose [Mass/volume] in Serum or Plasma [2345-7] 03/10/2025 01:23 PM 199 mg/dL N Blood chemistry[[id number]] Glucose [Mass/volume] in Serum or Plasma [2345-7] 03/10/2025 12:39 PM 308 mg/dL N Blood chemistry[[id number]] Glucose [Mass/volume] in Serum or Plasma [2345-7] 03/10/2025 09:53 AM 144 mg/dL N Blood chemistry[[id number]] Glucose [Mass/volume] in Serum or Plasma [2345-7] 03/09/2025 01:16 PM 362 mg/dL N Blood chemistry[[id number]] Glucose [Mass/volume] in Serum or Plasma [2345-7] 03/09/2025 12:42 PM 188 mg/dL N Blood chemistry[[id number]] Glucose [Mass/volume] in Serum or Plasma [2345-7] 03/09/2025 11:40 AM 362 mg/dL N Blood chemistry[[id number]] Glucose [Mass/volume] in Serum or Plasma [2345-7] 03/09/2025 10:09 AM 192 mg/dL N Blood chemistry[[id number]] Glucose [Mass/volume] in Serum or Plasma [2345-7] 03/09/2025 06:02 AM 145 mg/dL N Blood chemistry[[id number]] Glucose [Mass/volume] in Serum or Plasma [2345-7] 03/08/2025 04:04 PM 320 mg/dL N Blood chemistry[[id number]] Glucose [Mass/volume] in Serum or Plasma [2345-7] 03/08/2025 01:22 PM 293 mg/dL N Blood chemistry[[id number]] Glucose [Mass/volume] in Serum or Plasma [2345-7] 03/08/2025 12:57 PM 242 mg/dL N Blood chemistry[[id number]] Glucose [Mass/volume] in Serum or Plasma [2345-7] 03/08/2025 10:31 AM 242 mg/dL N Blood chemistry[[id number]] Glucose [Mass/volume] in Serum or Plasma [2345-7] 03/08/2025 09:01 AM 277 mg/dL N Blood chemistry[[id number]] Glucose [Mass/volume] in Serum or Plasma [2345-7] 03/07/2025 04:17 PM 217 mg/dL N Blood chemistry[[id number]] Glucose [Mass/volume] in Serum or Plasma [2345-7] 03/07/2025 03:07 PM 182 mg/dL N Blood chemistry[[id number]] Glucose [Mass/volume] in Serum or Plasma [2345-7] 03/07/2025 01:04 PM 129 mg/dL N Blood chemistry[[id number]] Glucose [Mass/volume] in Serum or Plasma [2345-7] 03/07/2025 10:55 AM 129 mg/dL N Blood chemistry[[id number]] Glucose [Mass/volume] in Serum or Plasma [2345-7] 03/07/2025 08:42 AM 275 mg/dL N Blood chemistry[[id number]] Glucose [Mass/volume] in Serum or Plasma [2345-7] 03/06/2025 04:06 PM 242 mg/dL N Blood chemistry[[id number]] Glucose [Mass/volume] in Serum or Plasma [2345-7] 03/06/2025 03:38 PM 327 mg/dL N Blood chemistry[[id number]] Glucose [Mass/volume] in Serum or Plasma [2345-7] 03/06/2025 12:19 PM 173 mg/dL N Blood chemistry[[id number]] Glucose [Mass/volume] in Serum or Plasma [2345-7] 03/06/2025 10:37 AM 278 mg/dL N Blood chemistry[[id number]] Glucose [Mass/volume] in Serum or Plasma [2345-7] 03/05/2025 04:36 PM 277 mg/dL N Blood chemistry[[id number]] Glucose [Mass/volume] in Serum or Plasma [2345-7] 03/05/2025 12:32 PM 102 mg/dL N Blood chemistry[] Glucose [Mass/volume] in Serum or Plasma [2345-7] 03/05/2025 11:23 AM 375 mg/dL N Blood chemistry[] Glucose [Mass/volume] in Serum or Plasma [2345-7] 03/05/2025 09:56 AM 348 mg/dL N Blood chemistry[] Glucose [Mass/volume] in Serum or Plasma [2345-7] 03/04/2025 04:38 PM 240 mg/dL N Blood chemistry[] Glucose [Mass/volume] in Serum or Plasma [2345-7] 03/04/2025 12:33 PM 345 mg/dL N Blood chemistry[[id number]] Glucose [Mass/volume] in Serum or Plasma [2345-7] 03/04/2025 11:43 AM 127 mg/dL N Glucose [Mass/volume] in Serum or Plasma [2345-7] 03/04/2025 11:43 AM 127 mg/dL N Blood chemistry[[id number]] Glucose [Mass/volume] in Serum or Plasma [2345-7] 03/04/2025 09:18 AM 257 mg/dL N Blood chemistry[] Glucose [Mass/volume] in Serum or Plasma [2345-7] 03/03/2025 03:57 PM 305 mg/dL N Glucose [Mass/volume] in Serum or Plasma [2345-7] 03/03/2025 03:57 PM 305 mg/dL N Blood chemistry[[id number]] Glucose [Mass/volume] in Serum or Plasma [2345-7] 03/03/2025 12:13 PM 362 mg/dL N Blood chemistry[[id number]] Glucose [Mass/volume] in Serum or Plasma [2345-7] 03/03/2025 11:18 AM 169 mg/dL N Blood chemistry[[id number]] Glucose [Mass/volume] in Serum or Plasma [2345-7] 03/03/2025 11:14 AM 169 mg/dL N Blood chemistry[] Glucose [Mass/volume] in Serum or Plasma [2345-7] 03/03/2025 09:48 AM 313 mg/dL N Blood chemistry[[id number]] Glucose [Mass/volume] in Serum or Plasma [2345-7] 03/02/2025 05:26 PM 301 mg/dL N Blood chemistry[[id number]] Glucose [Mass/volume] in Serum or Plasma [2345-7] 03/02/2025 04:17 PM 305 mg/dL N Blood chemistry[[id number]] Glucose [Mass/volume] in Serum or Plasma [2345-7] 03/02/2025 12:33 PM 234 mg/dL N Blood chemistry[[id number]] Glucose [Mass/volume] in Serum or Plasma [2345-7] 03/02/2025 11:29 AM 249 mg/dL N Blood chemistry[[id number]] Glucose [Mass/volume] in Serum or Plasma [2345-7] 03/02/2025 11:28 AM 269 mg/dL N Blood chemistry[[id number]] Glucose [Mass/volume] in Serum or Plasma [2345-7] 03/02/2025 10:34 AM 238 mg/dL N Blood chemistry[[id number]] Glucose [Mass/volume] in Serum or Plasma [2345-7] 03/02/2025 09:04 AM 290 mg/dL N Blood chemistry[[id number]] Glucose [Mass/volume] in Serum or Plasma [2345-7] 03/01/2025 05:00 PM 304 mg/dL N Blood chemistry[[id number]] Glucose [Mass/volume] in Serum or Plasma [2345-7] 03/01/2025 12:59 PM 138 mg/dL N Blood chemistry[[id number]] Glucose [Mass/volume] in Serum or Plasma [2345-7] 03/01/2025 10:26 AM 190 mg/dL N Blood chemistry[[id number]] Glucose [Mass/volume] in Serum or Plasma [2345-7] 03/01/2025 09:10 AM 237 mg/dL N Blood chemistry[[id number]] Glucose [Mass/volume] in Serum or Plasma [2345-7] 02/28/2025 04:04 PM 232 mg/dL N Blood chemistry[[id number]] Glucose [Mass/volume] in Serum or Plasma [2345-7] 02/28/2025 03:17 PM 275 mg/dL N Blood chemistry[[id number]] Glucose [Mass/volume] in Serum or Plasma [2345-7] 02/28/2025 11:27 AM 116 mg/dL N Blood chemistry[[id number]] Glucose [Mass/volume] in Serum or Plasma [2345-7] 02/28/2025 09:08 AM 275 mg/dL N Blood chemistry[[id number]] Glucose [Mass/volume] in Serum or Plasma [2345-7] 02/27/2025 04:30 PM 266 mg/dL N Blood chemistry[[id number]] Glucose [Mass/volume] in Serum or Plasma [2345-7] 02/27/2025 01:25 PM 310 mg/dL N Blood chemistry[[id number]] Glucose [Mass/volume] in Serum or Plasma [2345-7] 02/27/2025 12:07 PM 121 mg/dL N Blood chemistry[[id number]] Glucose [Mass/volume] in Serum or Plasma [2345-7] 02/27/2025 10:24 AM 124 mg/dL N Blood chemistry[[id number]] Glucose [Mass/volume] in Serum or Plasma [2345-7] 02/27/2025 08:34 AM 282 mg/dL N Blood chemistry[[id number]] Glucose [Mass/volume] in Serum or Plasma [2345-7] 02/26/2025 03:48 PM 318 mg/dL N Blood chemistry[[id number]] Glucose [Mass/volume] in Serum or Plasma [5-7] 02/26/2025 03:47 PM 318 mg/dL N Blood chemistry[[id number]] Glucose [Mass/volume] in Serum or Plasma [2345-7] 02/26/2025 11:32 AM 153 mg/dL N Blood chemistry[[id number]] Glucose [Mass/volume] in Serum or Plasma [2345-7] 02/26/2025 11:26 AM 280 mg/dL N Blood chemistry[[id number]] Glucose [Mass/volume] in Serum or Plasma [5-7] 02/26/2025 11:13 AM 153 mg/dL N Blood chemistry[[id number]] Glucose [Mass/volume] in Serum or Plasma [2345-7] 02/26/2025 09:04 AM 356 mg/dL N Blood chemistry[[id number]] Glucose [Mass/volume] in Serum or Plasma [2345-7] 02/26/2025 09:01 AM 356 mg/dL N Blood chemistry[[id number]] Glucose [Mass/volume] in Serum or Plasma [2345-7] 02/25/2025 04:44 PM 163 mg/dL N Blood chemistry[[id number]] Glucose [Mass/volume] in Serum or Plasma [2345-7] 02/25/2025 12:57 PM 149 mg/dL N Blood chemistry[[id number]] Glucose [Mass/volume] in Serum or Plasma [2345-7] 02/25/2025 12:36 PM 274 mg/dL N Blood chemistry[[id number]] Glucose [Mass/volume] in Serum or Plasma [2345-7] 02/25/2025 09:21 AM 213 mg/dL N Blood chemistry[[id number]] Glucose [Mass/volume] in Serum or Plasma [2345-7] 02/24/2025 04:04 PM 395 mg/dL N Blood chemistry[[id number]] Glucose [Mass/volume] in Serum or Plasma [2345-7] 02/24/2025 12:25 PM 376 mg/dL N Glucose [Mass/volume] in Serum or Plasma [5-7] 02/24/2025 12:25 PM 217 mg/dL N Blood chemistry[[id number]] Glucose [Mass/volume] in Serum or Plasma [2345-7] 02/24/2025 08:32 AM 280 mg/dL N Blood chemistry[[id number]] Glucose [Mass/volume] in Serum or Plasma [2345-7] 02/23/2025 01:27 PM 261 mg/dL N Blood chemistry[[id number]] Glucose [Mass/volume] in Serum or Plasma [2345-7] 02/23/2025 12:57 PM 330 mg/dL N Blood chemistry[[id number]] Glucose [Mass/volume] in Serum or Plasma [2345-7] 02/23/2025 11:38 AM 240 mg/dL N Blood chemistry[[id number]] Glucose [Mass/volume] in Serum or Plasma [2345-7] 02/23/2025 10:10 AM 260 mg/dL N Blood chemistry[[id number]] Glucose [Mass/volume] in Serum or Plasma [2345-7] 02/23/2025 06:08 AM 360 mg/dL N Blood chemistry[[id number]] Glucose [Mass/volume] in Serum or Plasma [2345-7] 02/22/2025 04:12 PM 218 mg/dL N Blood chemistry[[id number]] Glucose [Mass/volume] in Serum or Plasma [2345-7] 02/22/2025 02:57 PM 254 mg/dL N Blood chemistry[[id number]] Glucose [Mass/volume] in Serum or Plasma [2345-7] 02/22/2025 12:49 PM 145 mg/dL N Blood chemistry[[id number]] Glucose [Mass/volume] in Serum or Plasma [2345-7] 02/22/2025 10:18 AM 156 mg/dL N Blood chemistry[[id number]] Glucose [Mass/volume] in Serum or Plasma [2345-7] 02/22/2025 09:15 AM 248 mg/dL N Blood chemistry[[id number]] Glucose [Mass/volume] in Serum or Plasma [2345-7] 02/21/2025 04:57 PM 290 mg/dL N Blood chemistry[[id number]] Glucose [Mass/volume] in Serum or Plasma [2345-7] 02/21/2025 04:01 PM 483 mg/dL N Blood chemistry[[id number]] Glucose [Mass/volume] in Serum or Plasma [2345-7] 02/21/2025 01:05 PM 140 mg/dL N Blood chemistry[[id number]] Glucose [Mass/volume] in Serum or Plasma [2345-7] 02/21/2025 10:18 AM 153 mg/dL N Blood chemistry[[id number]] Glucose [Mass/volume] in Serum or Plasma [2345-7] 02/21/2025 09:38 AM 248 mg/dL N Blood chemistry[[id number]] Glucose [Mass/volume] in Serum or Plasma [2345-7] 02/20/2025 03:39 PM 274 mg/dL N Blood chemistry[[id number]] Glucose [Mass/volume] in Serum or Plasma [2345-7] 02/20/2025 02:42 PM 268 mg/dL N Blood chemistry[[id number]] Glucose [Mass/volume] in Serum or Plasma [2345-7] 02/20/2025 10:45 AM 127 mg/dL N Blood chemistry[[id number]] Glucose [Mass/volume] in Serum or Plasma [2345-7] 02/20/2025 08:51 AM 219 mg/dL N Blood chemistry[[id number]] Glucose [Mass/volume] in Serum or Plasma [2345-7] 02/19/2025 05:37 PM 154 mg/dL N Blood chemistry[[id number]] Glucose [Mass/volume] in Serum or Plasma [2345-7] 02/19/2025 02:25 PM 118 mg/dL N Blood chemistry[[id number]] Glucose [Mass/volume] in Serum or Plasma [2345-7] 02/19/2025 12:46 PM 337 mg/dL N Blood chemistry[[id number]] Glucose [Mass/volume] in Serum or Plasma [2345-7] 02/19/2025 10:15 AM 203 mg/dL N Blood chemistry[[id number]] Glucose [Mass/volume] in Serum or Plasma [2345-7] 02/18/2025 05:05 PM 250 mg/dL N Blood chemistry[[id number]] Glucose [Mass/volume] in Serum or Plasma [2345-7] 02/18/2025 12:34 PM 251 mg/dL N Blood chemistry[[id number]] Glucose [Mass/volume] in Serum or Plasma [2345-7] 02/18/2025 12:25 PM 119 mg/dL N Blood chemistry[[id number]] Glucose [Mass/volume] in Serum or Plasma [2345-7] 02/18/2025 09:30 AM 293 mg/dL N Blood chemistry[[id number]] Glucose [Mass/volume] in Serum or Plasma [2345-7] 02/17/2025 04:13 PM 318 mg/dL N Blood chemistry[[id number]] Glucose [Mass/volume] in Serum or Plasma [2345-7] 02/17/2025 12:51 PM 138 mg/dL N Blood chemistry[[id number]] Glucose [Mass/volume] in Serum or Plasma [2345-7] 02/17/2025 12:22 PM 252 mg/dL N Blood chemistry[[id number]] Glucose [Mass/volume] in Serum or Plasma [2345-7] 02/17/2025 10:02 AM 267 mg/dL N Blood chemistry[[id number]] Glucose [Mass/volume] in Serum or Plasma [2345-7] 02/16/2025 04:09 PM 212 mg/dL N Blood chemistry[[id number]] Glucose [Mass/volume] in Serum or Plasma [2345-7] 02/16/2025 12:54 PM 293 mg/dL N Blood chemistry[[id number]] Glucose [Mass/volume] in Serum or Plasma [2345-7] 02/16/2025 11:46 AM 133 mg/dL N Blood chemistry[[id number]] Glucose [Mass/volume] in Serum or Plasma [2345-7] 02/16/2025 10:22 AM 151 mg/dL N Blood chemistry[[id number]] Glucose [Mass/volume] in Serum or Plasma [2345-7] 02/16/2025 09:35 AM 284 mg/dL N Blood chemistry[[id number]] Glucose [Mass/volume] in Serum or Plasma [2345-7] 02/15/2025 04:11 PM 191 mg/dL N Blood chemistry[[id number]] Glucose [Mass/volume] in Serum or Plasma [2345-7] 02/15/2025 01:36 PM 179 mg/dL N Blood chemistry[[id number]] Glucose [Mass/volume] in Serum or Plasma [2345-7] 02/15/2025 12:58 PM 346 mg/dL N Blood chemistry[[id number]] Glucose [Mass/volume] in Serum or Plasma [2345-7] 02/15/2025 10:07 AM 166 mg/dL N Blood chemistry[[id number]] Glucose [Mass/volume] in Serum or Plasma [2345-7] 02/15/2025 09:19 AM 217 mg/dL N Blood chemistry[[id number]] Glucose [Mass/volume] in Serum or Plasma [2345-7] 02/14/2025 05:28 PM 309 mg/dL N Blood chemistry[[id number]] Glucose [Mass/volume] in Serum or Plasma [2345-7] 02/14/2025 02:21 PM 254 mg/dL N Blood chemistry[[id number]] Glucose [Mass/volume] in Serum or Plasma [2345-7] 02/14/2025 12:05 PM 210 mg/dL N Blood chemistry[[id number]] Glucose [Mass/volume] in Serum or Plasma [2345-7] 02/14/2025 10:24 AM 232 mg/dL N Blood chemistry[[id number]] Glucose [Mass/volume] in Serum or Plasma [2345-7] 02/14/2025 10:22 AM 177 mg/dL N Blood chemistry[[id number]] Glucose [Mass/volume] in Serum or Plasma [2345-7] 02/13/2025 03:46 PM 262 mg/dL N Blood chemistry[[id number]] Glucose [Mass/volume] in Serum or Plasma [2345-7] 02/13/2025 01:15 PM 202 mg/dL N Blood chemistry[[id number]] Glucose [Mass/volume] in Serum or Plasma [2345-7] 02/13/2025 11:45 AM 192 mg/dL N Blood chemistry[[id number]] Glucose [Mass/volume] in Serum or Plasma [2345-7] 02/13/2025 08:57 AM 332 mg/dL N Blood chemistry[[id number]] Glucose [Mass/volume] in Serum or Plasma [2345-7] 02/12/2025 03:36 PM 278 mg/dL N Blood chemistry[[id number]] Glucose [Mass/volume] in Serum or Plasma [2345-7] 02/12/2025 03:13 PM 204 mg/dL N Blood chemistry[[id number]] Glucose [Mass/volume] in Serum or Plasma [2345-7] 02/12/2025 11:36 AM 186 mg/dL N Blood chemistry[[id number]] Glucose [Mass/volume] in Serum or Plasma [2345-7] 02/12/2025 09:08 AM 200 mg/dL N Blood chemistry[[id number]] Glucose [Mass/volume] in Serum or Plasma [2345-7] 02/11/2025 04:12 PM 210 mg/dL N Blood chemistry[[id number]] Glucose [Mass/volume] in Serum or Plasma [2345-7] 02/11/2025 12:03 PM 299 mg/dL N Blood chemistry[[id number]] Glucose [Mass/volume] in Serum or Plasma [2345-7] 02/11/2025 11:12 AM 152 mg/dL N Blood chemistry[[id number]] Glucose [Mass/volume] in Serum or Plasma [2345-7] 02/11/2025 09:12 AM 208 mg/dL N Blood chemistry[[id number]] Glucose [Mass/volume] in Serum or Plasma [2345-7] 02/10/2025 05:10 PM 244 mg/dL N Blood chemistry[[id number]] Glucose [Mass/volume] in Serum or Plasma [2345-7] 02/10/2025 02:52 PM 180 mg/dL N Blood chemistry[[id number]] Glucose [Mass/volume] in Serum or Plasma [2345-7] 02/10/2025 12:33 PM 334 mg/dL N Blood chemistry[[id number]] Glucose [Mass/volume] in Serum or Plasma [2345-7] 02/10/2025 09:49 AM 220 mg/dL N Blood chemistry[[id number]] Glucose [Mass/volume] in Serum or Plasma [2345-7] 02/09/2025 05:37 PM 231 mg/dL N Blood chemistry[[id number]] Glucose [Mass/volume] in Serum or Plasma [2345-7] 02/09/2025 01:17 PM 260 mg/dL N Blood chemistry[[id number]] Glucose [Mass/volume] in Serum or Plasma [2345-7] 02/09/2025 12:40 PM 170 mg/dL N Blood chemistry[[id number]] Glucose [Mass/volume] in Serum or Plasma [2345-7] 02/09/2025 10:00 AM 179 mg/dL N Blood chemistry[[id number]] Glucose [Mass/volume] in Serum or Plasma [2345-7] 02/09/2025 09:12 AM 262 mg/dL N Blood chemistry[[id number]] Glucose [Mass/volume] in Serum or Plasma [2345-7] 02/08/2025 04:57 PM 255 mg/dL N Blood chemistry[[id number]] Glucose [Mass/volume] in Serum or Plasma [2345-7] 02/08/2025 04:22 PM 312 mg/dL N Blood chemistry[[id number]] Glucose [Mass/volume] in Serum or Plasma [2345-7] 02/08/2025 02:33 PM 205 mg/dL N Blood chemistry[[id number]] Glucose [Mass/volume] in Serum or Plasma [2345-7] 02/08/2025 10:32 AM 202 mg/dL N Blood chemistry[[id number]] Glucose [Mass/volume] in Serum or Plasma [2345-7] 02/08/2025 09:55 AM 200 mg/dL N Blood chemistry[[id number]] Glucose [Mass/volume] in Serum or Plasma [2345-7] 02/07/2025 04:25 PM 203 mg/dL N Blood chemistry[[id number]] Glucose [Mass/volume] in Serum or Plasma [2345-7] 02/07/2025 12:43 PM 151 mg/dL N Blood chemistry[[id number]] Glucose [Mass/volume] in Serum or Plasma [2345-7] 02/07/2025 12:15 PM 142 mg/dL N Blood chemistry[[id number]] Glucose [Mass/volume] in Serum or Plasma [2345-7] 02/07/2025 10:18 AM 207 mg/dL N Blood chemistry[[id number]] Glucose [Mass/volume] in Serum or Plasma [2345-7] 02/07/2025 09:23 AM 221 mg/dL N Blood chemistry[[id number]] Glucose [Mass/volume] in Serum or Plasma [2345-7] 02/06/2025 04:07 PM 199 mg/dL N Blood chemistry[[id number]] Glucose [Mass/volume] in Serum or Plasma [2345-7] 02/06/2025 02:03 PM 208 mg/dL N Blood chemistry[[id number]] Glucose [Mass/volume] in Serum or Plasma [2345-7] 02/06/2025 10:36 AM 89 mg/dL N Blood chemistry[[id number]] Glucose [Mass/volume] in Serum or Plasma [2345-7] 02/06/2025 08:41 AM 274 mg/dL N Blood chemistry[[id number]] Glucose [Mass/volume] in Serum or Plasma [2345-7] 02/05/2025 04:00 PM 210 mg/dL N Blood chemistry[[id number]] Glucose [Mass/volume] in Serum or Plasma [2345-7] 02/05/2025 12:47 PM 390 mg/dL N Blood chemistry[[id number]] Glucose [Mass/volume] in Serum or Plasma [2345-7] 02/05/2025 12:28 PM 187 mg/dL N Blood chemistry[[id number]] Glucose [Mass/volume] in Serum or Plasma [2345-7] 02/05/2025 09:15 AM 200 mg/dL N Blood chemistry[[id number]] Glucose [Mass/volume] in Serum or Plasma [2345-7] 02/04/2025 04:58 PM 181 mg/dL N Blood chemistry[[id number]] Glucose [Mass/volume] in Serum or Plasma [2345-7] 02/04/2025 12:58 PM 111 mg/dL N Blood chemistry[[id number]] Glucose [Mass/volume] in Serum or Plasma [2345-7] 02/04/2025 12:19 PM 111 mg/dL N Blood chemistry[[id number]] Glucose [Mass/volume] in Serum or Plasma [2345-7] 02/04/2025 11:58 AM 308 mg/dL N Blood chemistry[[id number]] Glucose [Mass/volume] in Serum or Plasma [2345-7] 02/04/2025 09:57 AM 238 mg/dL N Blood chemistry[[id number]] Glucose [Mass/volume] in Serum or Plasma [2345-7] 02/03/2025 04:57 PM 293 mg/dL N Blood chemistry[[id number]] Glucose [Mass/volume] in Serum or Plasma [2345-7] 02/03/2025 12:25 PM 354 mg/dL N Glucose [Mass/volume] in Serum or Plasma [2345-7] 02/03/2025 12:25 PM 354 mg/dL N Blood chemistry[[id number]] Glucose [Mass/volume] in Serum or Plasma [2345-7] 02/03/2025 11:28 AM 164 mg/dL N Blood chemistry[[id number]] Glucose [Mass/volume] in Serum or Plasma [2345-7] 02/03/2025 09:53 AM 320 mg/dL N Blood chemistry[[id number]] Glucose [Mass/volume] in Serum or Plasma [2345-7] 02/02/2025 03:55 PM 230 mg/dL N Blood chemistry[[id number]] Glucose [Mass/volume] in Serum or Plasma [2345-7] 02/02/2025 12:44 PM 400 mg/dL N Blood chemistry[[id number]] Glucose [Mass/volume] in Serum or Plasma [2345-7] 02/02/2025 11:48 AM 144 mg/dL N Blood chemistry[[id number]] Glucose [Mass/volume] in Serum or Plasma [2345-7] 02/02/2025 10:18 AM 150 mg/dL N Blood chemistry[[id number]] Glucose [Mass/volume] in Serum or Plasma [2345-7] 02/02/2025 09:09 AM 400 mg/dL N Blood chemistry[[id number]] Glucose [Mass/volume] in Serum or Plasma [2345-7] 02/01/2025 05:16 PM 286 mg/dL N Blood chemistry[[id number]] Glucose [Mass/volume] in Serum or Plasma [2345-7] 02/01/2025 04:04 PM 348 mg/dL N Blood chemistry[[id number]] Glucose [Mass/volume] in Serum or Plasma [2345-7] 02/01/2025 12:43 PM 248 mg/dL N Blood chemistry[[id number]] Glucose [Mass/volume] in Serum or Plasma [2345-7] 02/01/2025 10:15 AM 193 mg/dL N Blood chemistry[[id number]] Glucose [Mass/volume] in Serum or Plasma [2345-7] 02/01/2025 09:53 AM 238 mg/dL N Blood chemistry[[id number]] Glucose [Mass/volume] in Serum or Plasma [2345-7] 01/31/2025 04:25 PM 226 mg/dL N Blood chemistry[[id number]] Glucose [Mass/volume] in Serum or Plasma [2345-7] 01/31/2025 02:30 PM 284 mg/dL N Blood chemistry[[id number]] Glucose [Mass/volume] in Serum or Plasma [2345-7] 01/31/2025 01:55 PM 284 mg/dL N Blood chemistry[[id number]] Glucose [Mass/volume] in Serum or Plasma [2345-7] 01/31/2025 01:43 PM 167 mg/dL N Blood chemistry[[id number]] Glucose [Mass/volume] in Serum or Plasma [2345-7] 01/31/2025 10:45 AM 169 mg/dL N Blood chemistry[[id number]] Glucose [Mass/volume] in Serum or Plasma [2345-7] 01/31/2025 09:30 AM 231 mg/dL N Blood chemistry[[id number]] Glucose [Mass/volume] in Serum or Plasma [2345-7] 01/30/2025 04:23 PM 296 mg/dL N Blood chemistry[[id number]] Glucose [Mass/volume] in Serum or Plasma [2345-7] 01/30/2025 03:34 PM 280 mg/dL N Blood chemistry[[id number]] Glucose [Mass/volume] in Serum or Plasma [2345-7] 01/30/2025 11:44 AM 189 mg/dL N Blood chemistry[[id number]] Glucose [Mass/volume] in Serum or Plasma [2345-7] 01/30/2025 10:23 AM 188 mg/dL N Blood chemistry[[id number]] Glucose [Mass/volume] in Serum or Plasma [2345-7] 01/30/2025 08:40 AM 329 mg/dL N Blood chemistry[[id number]] Glucose [Mass/volume] in Serum or Plasma [2345-7] 01/29/2025 03:37 PM 219 mg/dL N Blood chemistry[[id number]] Glucose [Mass/volume] in Serum or Plasma [2345-7] 01/29/2025 02:09 PM 390 mg/dL N Blood chemistry[[id number]] Glucose [Mass/volume] in Serum or Plasma [2345-7] 01/29/2025 11:39 AM 98 mg/dL N Blood chemistry[[id number]] Glucose [Mass/volume] in Serum or Plasma [2345-7] 01/29/2025 08:50 AM 293 mg/dL N Blood chemistry[[id number]] Glucose [Mass/volume] in Serum or Plasma [2345-7] 01/28/2025 04:21 PM 143 mg/dL N Blood chemistry[[id number]] Glucose [Mass/volume] in Serum or Plasma [2345-7] 01/28/2025 12:52 PM 292 mg/dL N Blood chemistry[[id number]] Glucose [Mass/volume] in Serum or Plasma [2345-7] 01/28/2025 11:19 AM 161 mg/dL N Blood chemistry[[id number]] Glucose [Mass/volume] in Serum or Plasma [2345-7] 01/28/2025 09:22 AM 168 mg/dL N Blood chemistry[[id number]] Glucose [Mass/volume] in Serum or Plasma [2345-7] 01/27/2025 12:51 PM 306 mg/dL N Blood chemistry[[id number]] Glucose [Mass/volume] in Serum or Plasma [2345-7] 01/27/2025 11:28 AM 164 mg/dL N Glucose [Mass/volume] in Serum or Plasma [2345-7] 01/27/2025 11:28 AM 164 mg/dL N Blood chemistry[[id number]] Glucose [Mass/volume] in Serum or Plasma [2345-7] 01/27/2025 09:16 AM 247 mg/dL N Blood chemistry[[id number]] Glucose [Mass/volume] in Serum or Plasma [2345-7] 01/26/2025 05:05 PM 243 mg/dL N Blood chemistry[[id number]] Glucose [Mass/volume] in Serum or Plasma [2345-7] 01/26/2025 12:25 PM 226 mg/dL N Blood chemistry[[id number]] Glucose [Mass/volume] in Serum or Plasma [2345-7] 01/26/2025 11:37 AM 122 mg/dL N Blood chemistry[[id number]] Glucose [Mass/volume] in Serum or Plasma [2345-7] 01/26/2025 10:36 AM 171 mg/dL N Blood chemistry[[id number]] Glucose [Mass/volume] in Serum or Plasma [2345-7] 01/26/2025 10:03 AM 188 mg/dL N Blood chemistry[[id number]] Glucose [Mass/volume] in Serum or Plasma [2345-7] 01/25/2025 04:41 PM 320 mg/dL N Blood chemistry[[id number]] Glucose [Mass/volume] in Serum or Plasma [2345-7] 01/25/2025 03:06 PM 290 mg/dL N Blood chemistry[[id number]] Glucose [Mass/volume] in Serum or Plasma [2345-7] 01/25/2025 01:12 PM 224 mg/dL N Blood chemistry[[id number]] Glucose [Mass/volume] in Serum or Plasma [2345-7] 01/25/2025 10:04 AM 203 mg/dL N Blood chemistry[[id number]] Glucose [Mass/volume] in Serum or Plasma [2345-7] 01/25/2025 08:51 AM 199 mg/dL N Blood chemistry[[id number]] Glucose [Mass/volume] in Serum or Plasma [2345-7] 01/24/2025 03:17 PM 317 mg/dL N Blood chemistry[[id number]] Glucose [Mass/volume] in Serum or Plasma [2345-7] 01/24/2025 12:43 PM 225 mg/dL N Blood chemistry[[id number]] Glucose [Mass/volume] in Serum or Plasma [2345-7] 01/24/2025 11:42 AM 337 mg/dL N Blood chemistry[[id number]] Glucose [Mass/volume] in Serum or Plasma [2345-7] 01/24/2025 10:44 AM 184 mg/dL N Blood chemistry[[id number]] Glucose [Mass/volume] in Serum or Plasma [2345-7] 01/24/2025 09:32 AM 250 mg/dL N Blood chemistry[[id number]] Glucose [Mass/volume] in Serum or Plasma [2345-7] 01/23/2025 03:30 PM 304 mg/dL N Blood chemistry[[id number]] Glucose [Mass/volume] in Serum or Plasma [2345-7] 01/23/2025 01:45 PM 284 mg/dL N Blood chemistry[[id number]] Glucose [Mass/volume] in Serum or Plasma [2345-7] 01/23/2025 12:18 PM 156 mg/dL N Blood chemistry[[id number]] Glucose [Mass/volume] in Serum or Plasma [2345-7] 01/23/2025 08:19 AM 322 mg/dL N Blood chemistry[[id number]] Glucose [Mass/volume] in Serum or Plasma [2345-7] 01/22/2025 01:34 PM 197 mg/dL N Blood chemistry[[id number]] Glucose [Mass/volume] in Serum or Plasma [2345-7] 01/22/2025 01:23 PM 169 mg/dL N Blood chemistry[[id number]] Glucose [Mass/volume] in Serum or Plasma [2345-7] 01/22/2025 09:25 AM 219 mg/dL N Blood chemistry[[id number]] Glucose [Mass/volume] in Serum or Plasma [2345-7] 01/22/2025 06:20 AM 258 mg/dL N Blood chemistry[[id number]] Glucose [Mass/volume] in Serum or Plasma [2345-7] 01/21/2025 04:18 PM 220 mg/dL N Blood chemistry[[id number]] Glucose [Mass/volume] in Serum or Plasma [2345-7] 01/21/2025 02:49 PM 132 mg/dL N Blood chemistry[[id number]] Glucose [Mass/volume] in Serum or Plasma [2345-7] 01/21/2025 02:13 PM 213 mg/dL N Blood chemistry[[id number]] Glucose [Mass/volume] in Serum or Plasma [2345-7] 01/21/2025 01:06 PM 215 mg/dL N Blood chemistry[[id number]] Glucose [Mass/volume] in Serum or Plasma [2345-7] 01/21/2025 09:40 AM 179 mg/dL N Blood chemistry[[id number]] Glucose [Mass/volume] in Serum or Plasma [2345-7] 01/20/2025 05:03 PM 150 mg/dL N Blood chemistry[[id number]] Glucose [Mass/volume] in Serum or Plasma [2345-7] 01/20/2025 02:30 PM 138 mg/dL N Blood chemistry[[id number]] Glucose [Mass/volume] in Serum or Plasma [2345-7] 01/20/2025 12:12 PM 233 mg/dL N Blood chemistry[[id number]] Glucose [Mass/volume] in Serum or Plasma [2345-7] 01/20/2025 09:47 AM 209 mg/dL N Blood chemistry[[id number]] Glucose [Mass/volume] in Serum or Plasma [2345-7] 01/19/2025 03:48 PM 319 mg/dL N Blood chemistry[[id number]] Glucose [Mass/volume] in Serum or Plasma [2345-7] 01/19/2025 11:47 AM 155 mg/dL N Blood chemistry[[id number]] Glucose [Mass/volume] in Serum or Plasma [2345-7] 01/19/2025 11:33 AM 230 mg/dL N Blood chemistry[[id number]] Glucose [Mass/volume] in Serum or Plasma [2345-7] 01/19/2025 08:47 AM 344 mg/dL N Blood chemistry[[id number]] Glucose [Mass/volume] in Serum or Plasma [2345-7] 01/18/2025 03:51 PM 239 mg/dL N Blood chemistry[[id number]] Glucose [Mass/volume] in Serum or Plasma [2345-7] 01/18/2025 02:08 PM 243 mg/dL N Blood chemistry[[id number]] Glucose [Mass/volume] in Serum or Plasma [2345-7] 01/18/2025 01:27 PM 272 mg/dL N Blood chemistry[[id number]] Glucose [Mass/volume] in Serum or Plasma [2345-7] 01/18/2025 12:20 PM 272 mg/dL N Blood chemistry[[id number]] Glucose [Mass/volume] in Serum or Plasma [2345-7] 01/18/2025 09:35 AM 206 mg/dL N Blood chemistry[[id number]] Glucose [Mass/volume] in Serum or Plasma [2345-7] 01/18/2025 09:34 AM 206 mg/dL N Blood chemistry[[id number]] Glucose [Mass/volume] in Serum or Plasma [2345-7] 01/17/2025 05:27 PM 181 mg/dL N Blood chemistry[[id number]] Glucose [Mass/volume] in Serum or Plasma [2345-7] 01/17/2025 04:16 PM 198 mg/dL N Blood chemistry[[id number]] Glucose [Mass/volume] in Serum or Plasma [2345-7] 01/17/2025 02:54 PM 225 mg/dL N Blood chemistry[[id number]] Glucose [Mass/volume] in Serum or Plasma [2345-7] 01/17/2025 10:28 AM 177 mg/dL N Glucose [Mass/volume] in Serum or Plasma [2345-7] 01/17/2025 10:28 AM 177 mg/dL N Blood chemistry[[id number]] Glucose [Mass/volume] in Serum or Plasma [2345-7] 01/16/2025 05:44 PM 156 mg/dL N Blood chemistry[[id number]] Glucose [Mass/volume] in Serum or Plasma [2345-7] 01/16/2025 02:25 PM 155 mg/dL N Blood chemistry[[id number]] Glucose [Mass/volume] in Serum or Plasma [2345-7] 01/16/2025 01:11 PM 352 mg/dL N Blood chemistry[[id number]] Glucose [Mass/volume] in Serum or Plasma [2345-7] 01/16/2025 11:23 AM 206 mg/dL N Blood chemistry[[id number]] Glucose [Mass/volume] in Serum or Plasma [2345-7] 01/16/2025 10:33 AM 148 mg/dL N Blood chemistry[[id number]] Glucose [Mass/volume] in Serum or Plasma [2345-7] 01/16/2025 09:33 AM 223 mg/dL N Blood chemistry[[id number]] Glucose [Mass/volume] in Serum or Plasma [2345-7] 01/15/2025 03:12 PM 136 mg/dL N Blood chemistry[[id number]] Glucose [Mass/volume] in Serum or Plasma [2345-7] 01/15/2025 01:40 PM 225 mg/dL N Blood chemistry[[id number]] Glucose [Mass/volume] in Serum or Plasma [2345-7] 01/15/2025 11:24 AM 116 mg/dL N Blood chemistry[[id number]] Glucose [Mass/volume] in Serum or Plasma [2345-7] 01/15/2025 08:17 AM 170 mg/dL N Blood chemistry[[id number]] Glucose [Mass/volume] in Serum or Plasma [2345-7] 01/14/2025 03:53 PM 243 mg/dL N Blood chemistry[[id number]] Glucose [Mass/volume] in Serum or Plasma [2345-7] 01/14/2025 12:18 PM 106 mg/dL N Blood chemistry[[id number]] Glucose [Mass/volume] in Serum or Plasma [2345-7] 01/14/2025 11:50 AM 268 mg/dL N Blood chemistry[[id number]] Glucose [Mass/volume] in Serum or Plasma [2345-7] 01/14/2025 11:34 AM 106 mg/dL N Blood chemistry[[id number]] Glucose [Mass/volume] in Serum or Plasma [2345-7] 01/14/2025 09:09 AM 146 mg/dL N Blood chemistry[[id number]] Glucose [Mass/volume] in Serum or Plasma [2345-7] 01/13/2025 03:17 PM 204 mg/dL N Blood chemistry[[id number]] Glucose [Mass/volume] in Serum or Plasma [2345-7] 01/13/2025 12:25 PM 144 mg/dL N Blood chemistry[[id number]] Glucose [Mass/volume] in Serum or Plasma [2345-7] 01/13/2025 11:36 AM 153 mg/dL N Blood chemistry[[id number]] Glucose [Mass/volume] in Serum or Plasma [2345-7] 01/13/2025 08:41 AM 418 mg/dL N Blood chemistry[[id number]] Glucose [Mass/volume] in Serum or Plasma [2345-7] 01/12/2025 05:20 PM 153 mg/dL N Blood chemistry[[id number]] Glucose [Mass/volume] in Serum or Plasma [2345-7] 01/12/2025 02:41 PM 207 mg/dL N Blood chemistry[[id number]] Glucose [Mass/volume] in Serum or Plasma [2345-7] 01/12/2025 11:47 AM 246 mg/dL N Blood chemistry[[id number]] Glucose [Mass/volume] in Serum or Plasma [2345-7] 01/12/2025 10:35 AM 156 mg/dL N Blood chemistry[[id number]] Glucose [Mass/volume] in Serum or Plasma [2345-7] 01/12/2025 09:11 AM 158 mg/dL N Blood chemistry[[id number]] Glucose [Mass/volume] in Serum or Plasma [2345-7] 01/11/2025 04:25 PM 175 mg/dL N Blood chemistry[[id number]] Glucose [Mass/volume] in Serum or Plasma [2345-7] 01/11/2025 02:17 PM 239 mg/dL N Blood chemistry[[id number]] Glucose [Mass/volume] in Serum or Plasma [2345-7] 01/11/2025 01:23 PM 135 mg/dL N Blood chemistry[[id number]] Glucose [Mass/volume] in Serum or Plasma [2345-7] 01/11/2025 10:18 AM 139 mg/dL N Blood chemistry[[id number]] Glucose [Mass/volume] in Serum or Plasma [2345-7] 01/11/2025 08:51 AM 218 mg/dL N Blood chemistry[[id number]] Glucose [Mass/volume] in Serum or Plasma [2345-7] 01/10/2025 04:14 PM 269 mg/dL N Blood chemistry[[id number]] Glucose [Mass/volume] in Serum or Plasma [2345-7] 01/10/2025 09:01 AM 191 mg/dL N Blood chemistry[[id number]] Glucose [Mass/volume] in Serum or Plasma [2345-7] 12/05/2024 04:18 PM 237 mg/dL N Blood chemistry[[id number]] Glucose [Mass/volume] in Serum or Plasma [2345-7] 12/05/2024 08:12 AM 186 mg/dL N Blood chemistry[[id number]] Glucose [Mass/volume] in Serum or Plasma [2345-7] 12/05/2024 01:50 PM 189 mg/dL N Blood chemistry[[id number]] Glucose [Mass/volume] in Serum or Plasma [2345-7] 12/05/2024 09:41 AM 175 mg/dL N Blood chemistry[[id number]] Glucose [Mass/volume] in Serum or Plasma [2345-7] 12/04/2024 12:20 PM 141 mg/dL N Blood chemistry[[id number]] Glucose [Mass/volume] in Serum or Plasma [2345-7] 12/04/2024 11:27 AM 141 mg/dL N Blood chemistry[[id number]] Glucose [Mass/volume] in Serum or Plasma [2345-7] 12/04/2024 03:41 PM 271 mg/dL N Blood chemistry[[id number]] Glucose [Mass/volume] in Serum or Plasma [2345-7] 12/04/2024 09:07 AM 148 mg/dL N Blood chemistry[[id number]] Glucose [Mass/volume] in Serum or Plasma [2345-7] 12/04/2024 12:50 PM 93 mg/dL N Blood chemistry[[id number]] Glucose [Mass/volume] in Serum or Plasma [2345-7] 12/03/2024 12:47 PM 197 mg/dL N Blood chemistry[[id number]] Glucose [Mass/volume] in Serum or Plasma [2345-7] 12/03/2024 12:45 PM 197 mg/dL N Blood chemistry[[id number]] Glucose [Mass/volume] in Serum or Plasma [2345-7] 12/03/2024 04:15 PM 210 mg/dL N Blood chemistry[[id number]] Glucose [Mass/volume] in Serum or Plasma [2345-7] 12/03/2024 09:03 AM 257 mg/dL N Blood chemistry[[id number]] Glucose [Mass/volume] in Serum or Plasma [2345-7] 12/03/2024 11:21 AM 160 mg/dL N Blood chemistry[[id number]] Glucose [Mass/volume] in Serum or Plasma [2345-7] 12/03/2024 11:20 AM 160 mg/dL N Blood chemistry[[id number]] Glucose [Mass/volume] in Serum or Plasma [2345-7] 12/02/2024 02:38 PM 202 mg/dL N Blood chemistry[[id number]] Glucose [Mass/volume] in Serum or Plasma [2345-7] 12/02/2024 01:41 PM 202 mg/dL N Blood chemistry[[id number]] Glucose [Mass/volume] in Serum or Plasma [2345-7] 12/02/2024 04:10 PM 394 mg/dL N Blood chemistry[[id number]] Glucose [Mass/volume] in Serum or Plasma [2345-7] 12/02/2024 09:32 AM 174 mg/dL N Blood chemistry[[id number]] Glucose [Mass/volume] in Serum or Plasma [2345-7] 12/02/2024 09:30 AM 174 mg/dL N Blood chemistry[[id number]] Glucose [Mass/volume] in Serum or Plasma [2345-7] 12/02/2024 12:43 PM 158 mg/dL N Blood chemistry[[id number]] Glucose [Mass/volume] in Serum or Plasma [2345-7] 12/02/2024 10:02 AM 199 mg/dL N Blood chemistry[[id number]] Glucose [Mass/volume] in Serum or Plasma [2345-7] 12/01/2024 12:18 PM 203 mg/dL N Blood chemistry[[id number]] Glucose [Mass/volume] in Serum or Plasma [2345-7] 12/01/2024 04:42 PM 263 mg/dL N Blood chemistry[[id number]] Glucose [Mass/volume] in Serum or Plasma [2345-7] 12/01/2024 09:51 AM 152 mg/dL N Blood chemistry[[id number]] Glucose [Mass/volume] in Serum or Plasma [2345-7] 12/01/2024 12:25 PM 189 mg/dL N Blood chemistry[[id number]] Glucose [Mass/volume] in Serum or Plasma [2345-7] 12/01/2024 10:46 AM 189 mg/dL N Blood chemistry[[id number]] Glucose [Mass/volume] in Serum or Plasma [2345-7] 11/30/2024 01:47 PM 206 mg/dL N Blood chemistry[[id number]] Glucose [Mass/volume] in Serum or Plasma [5-7] 11/30/2024 04:12 PM 187 mg/dL N Blood chemistry[[id number]] Glucose [Mass/volume] in Serum or Plasma [2345-7] 11/30/2024 09:03 AM 179 mg/dL N Blood chemistry[[id number]] Glucose [Mass/volume] in Serum or Plasma [2345-7] 11/30/2024 12:07 PM 165 mg/dL N Blood chemistry[[id number]] Glucose [Mass/volume] in Serum or Plasma [2345-7] 11/30/2024 10:12 AM 174 mg/dL N Blood chemistry[[id number]] Glucose [Mass/volume] in Serum or Plasma [2345-7] 11/29/2024 12:39 PM 221 mg/dL N Blood chemistry[[id number]] Glucose [Mass/volume] in Serum or Plasma [2345-7] 11/29/2024 09:03 AM 232 mg/dL N Blood chemistry[[id number]] Glucose [Mass/volume] in Serum or Plasma [2345-7] 11/29/2024 12:57 PM 169 mg/dL N Blood chemistry[[id number]] Glucose [Mass/volume] in Serum or Plasma [2345-7] 11/29/2024 10:16 AM 164 mg/dL N Blood chemistry[[id number]] Glucose [Mass/volume] in Serum or Plasma [2345-7] 11/28/2024 12:16 PM 225 mg/dL N Blood chemistry[[id number]] Glucose [Mass/volume] in Serum or Plasma [2345-7] 11/28/2024 03:32 PM 232 mg/dL N Blood chemistry[[id number]] Glucose [Mass/volume] in Serum or Plasma [2345-7] 11/28/2024 09:18 AM 240 mg/dL N Blood chemistry[[id number]] Glucose [Mass/volume] in Serum or Plasma [2345-7] 11/28/2024 01:16 PM 232 mg/dL N Blood chemistry[[id number]] Glucose [Mass/volume] in Serum or Plasma [2345-7] 11/27/2024 01:00 PM 298 mg/dL N Blood chemistry[[id number]] Glucose [Mass/volume] in Serum or Plasma [2345-7] 11/27/2024 04:45 PM 204 mg/dL N Blood chemistry[[id number]] Glucose [Mass/volume] in Serum or Plasma [2345-7] 11/27/2024 09:45 AM 240 mg/dL N Blood chemistry[[id number]] Glucose [Mass/volume] in Serum or Plasma [2345-7] 11/27/2024 11:21 AM 166 mg/dL N Blood chemistry[[id number]] Glucose [Mass/volume] in Serum or Plasma [2345-7] 11/26/2024 12:11 PM 314 mg/dL N Blood chemistry[[id number]] Glucose [Mass/volume] in Serum or Plasma [2345-7] 11/26/2024 04:21 PM 256 mg/dL N Blood chemistry[[id number]] Glucose [Mass/volume] in Serum or Plasma [2345-7] 11/26/2024 09:22 AM 164 mg/dL N Blood chemistry[[id number]] Glucose [Mass/volume] in Serum or Plasma [2345-7] 11/26/2024 12:44 PM 326 mg/dL N Blood chemistry[[id number]] Glucose [Mass/volume] in Serum or Plasma [2345-7] 11/26/2024 10:04 AM 326 mg/dL N Blood chemistry[[id number]] Glucose [Mass/volume] in Serum or Plasma [2345-7] 11/25/2024 11:51 AM 225 mg/dL N Blood chemistry[[id number]] Glucose [Mass/volume] in Serum or Plasma [2345-7] 11/25/2024 05:19 PM 298 mg/dL N Blood chemistry[[id number]] Glucose [Mass/volume] in Serum or Plasma [2345-7] 11/25/2024 05:18 PM 298 mg/dL N Blood chemistry[[id number]] Glucose [Mass/volume] in Serum or Plasma [2345-7] 11/25/2024 09:49 AM 266 mg/dL N Blood chemistry[[id number]] Glucose [Mass/volume] in Serum or Plasma [2345-7] 11/25/2024 09:47 AM 266 mg/dL N Blood chemistry[[id number]] Glucose [Mass/volume] in Serum or Plasma [2345-7] 11/25/2024 11:53 AM 277 mg/dL N Blood chemistry[[id number]] Glucose [Mass/volume] in Serum or Plasma [2345-7] 11/25/2024 09:50 AM 88 mg/dL N Blood chemistry[[id number]] Glucose [Mass/volume] in Serum or Plasma [2345-7] 11/25/2024 09:40 AM 274 mg/dL N Blood chemistry[[id number]] Glucose [Mass/volume] in Serum or Plasma [2345-7] 11/25/2024 06:06 AM 110 mg/dL N Blood chemistry[[id number]] Glucose [Mass/volume] in Serum or Plasma [2345-7] 11/24/2024 04:21 PM 298 mg/dL N Blood chemistry[[id number]] Glucose [Mass/volume] in Serum or Plasma [2345-7] 11/24/2024 04:20 PM 298 mg/dL N Blood chemistry[[id number]] Glucose [Mass/volume] in Serum or Plasma [2345-7] 11/24/2024 02:55 PM 229 mg/dL N Blood chemistry[[id number]] Glucose [Mass/volume] in Serum or Plasma [2345-7] 11/24/2024 01:29 PM 229 mg/dL N Blood chemistry[[id number]] Glucose [Mass/volume] in Serum or Plasma [2345-7] 11/23/2024 01:36 PM 248 mg/dL N Blood chemistry[[id number]] Glucose [Mass/volume] in Serum or Plasma [2345-7] 11/23/2024 10:46 AM 204 mg/dL N Blood chemistry[[id number]] Glucose [Mass/volume] in Serum or Plasma [2345-7] 11/23/2024 04:43 PM 288 mg/dL N Blood chemistry[[id number]] Glucose [Mass/volume] in Serum or Plasma [2345-7] 11/23/2024 12:05 PM 211 mg/dL N Blood chemistry[[id number]] Glucose [Mass/volume] in Serum or Plasma [2345-7] 11/17/2024 12:40 PM 272 mg/dL N Blood chemistry[[id number]] Glucose [Mass/volume] in Serum or Plasma [2345-7] 11/17/2024 09:21 AM 213 mg/dL N Blood chemistry[[id number]] Glucose [Mass/volume] in Serum or Plasma [2345-7] 11/17/2024 09:20 AM 167 mg/dL N Blood chemistry[[id number]] Glucose [Mass/volume] in Serum or Plasma [2345-7] 11/17/2024 01:13 PM 133 mg/dL N Blood chemistry[[id number]] Glucose [Mass/volume] in Serum or Plasma [2345-7] 11/16/2024 03:28 PM 285 mg/dL N Blood chemistry[[id number]] Glucose [Mass/volume] in Serum or Plasma [2345-7] 11/16/2024 05:13 PM 144 mg/dL N Blood chemistry[[id number]] Glucose [Mass/volume] in Serum or Plasma [2345-7] 11/16/2024 10:04 AM 189 mg/dL N Blood chemistry[[id number]] Glucose [Mass/volume] in Serum or Plasma [2345-7] 11/16/2024 01:24 PM 135 mg/dL N Blood chemistry[[id number]] Glucose [Mass/volume] in Serum or Plasma [2345-7] 11/15/2024 04:03 PM 102 mg/dL N Blood chemistry[[id number]] Glucose [Mass/volume] in Serum or Plasma [2345-7] 11/15/2024 02:41 PM 100 mg/dL N Blood chemistry[[id number]] Glucose [Mass/volume] in Serum or Plasma [2345-7] 11/15/2024 08:56 AM 177 mg/dL N Blood chemistry[[id number]] Glucose [Mass/volume] in Serum or Plasma [2345-7] 11/15/2024 12:36 PM 100 mg/dL N Blood chemistry[[id number]] Glucose [Mass/volume] in Serum or Plasma [2345-7] 11/14/2024 04:53 PM 212 mg/dL N Blood chemistry[[id number]] Glucose [Mass/volume] in Serum or Plasma [2345-7] 11/14/2024 10:44 AM 176 mg/dL N Blood chemistry[[id number]] Glucose [Mass/volume] in Serum or Plasma [2345-7] 11/14/2024 07:41 AM 165 mg/dL N Blood chemistry[[id number]] Glucose [Mass/volume] in Serum or Plasma [2345-7] 11/14/2024 10:04 AM 186 mg/dL N Blood chemistry[[id number]] Glucose [Mass/volume] in Serum or Plasma [2345-7] 11/13/2024 12:00 PM 305 mg/dL N Blood chemistry[[id number]] Glucose [Mass/volume] in Serum or Plasma [2345-7] 11/13/2024 04:40 PM 198 mg/dL N Blood chemistry[[id number]] Glucose [Mass/volume] in Serum or Plasma [2345-7] 11/13/2024 09:44 AM 156 mg/dL N Blood chemistry[[id number]] Glucose [Mass/volume] in Serum or Plasma [2345-7] 11/13/2024 02:31 PM 101 mg/dL N Blood chemistry[[id number]] Glucose [Mass/volume] in Serum or Plasma [2345-7] 11/13/2024 10:07 AM 91 mg/dL N Blood chemistry[[id number]] Glucose [Mass/volume] in Serum or Plasma [2345-7] 11/12/2024 11:33 AM 252 mg/dL N Blood chemistry[[id number]] Glucose [Mass/volume] in Serum or Plasma [2345-7] 11/12/2024 03:53 PM 156 mg/dL N Blood chemistry[[id number]] Glucose [Mass/volume] in Serum or Plasma [2345-7] 11/12/2024 09:49 AM 186 mg/dL N Blood chemistry[[id number]] Glucose [Mass/volume] in Serum or Plasma [2345-7] 11/12/2024 10:13 AM 144 mg/dL N Blood chemistry[[id number]] Glucose [Mass/volume] in Serum or Plasma [2345-7] 11/11/2024 11:00 AM 276 mg/dL N Blood chemistry[[id number]] Glucose [Mass/volume] in Serum or Plasma [2345-7] 11/11/2024 04:38 PM 178 mg/dL N Blood chemistry[[id number]] Glucose [Mass/volume] in Serum or Plasma [2345-7] 11/11/2024 09:28 AM 178 mg/dL N Blood chemistry[[id number]] Glucose [Mass/volume] in Serum or Plasma [2345-7] 11/11/2024 11:46 AM 101 mg/dL N Blood chemistry[[id number]] Glucose [Mass/volume] in Serum or Plasma [2345-7] 11/10/2024 12:48 PM 228 mg/dL N Blood chemistry[[id number]] Glucose [Mass/volume] in Serum or Plasma [2345-7] 11/10/2024 03:06 PM 101 mg/dL N Blood chemistry[[id number]] Glucose [Mass/volume] in Serum or Plasma [2345-7] 11/10/2024 09:17 AM 203 mg/dL N Blood chemistry[[id number]] Glucose [Mass/volume] in Serum or Plasma [2345-7] 11/10/2024 01:44 PM 217 mg/dL N Blood chemistry[[id number]] Glucose [Mass/volume] in Serum or Plasma [2345-7] 11/09/2024 12:36 PM 349 mg/dL N Blood chemistry[[id number]] Glucose [Mass/volume] in Serum or Plasma [2345-7] 11/09/2024 04:40 PM 178 mg/dL N Blood chemistry[[id number]] Glucose [Mass/volume] in Serum or Plasma [2345-7] 11/09/2024 10:05 AM 170 mg/dL N Blood chemistry[[id number]] Glucose [Mass/volume] in Serum or Plasma [2345-7] 11/09/2024 12:27 PM 185 mg/dL N Blood chemistry[[id number]] Glucose [Mass/volume] in Serum or Plasma [2345-7] 11/09/2024 12:19 PM 185 mg/dL N Blood chemistry[[id number]] Glucose [Mass/volume] in Serum or Plasma [2345-7] 11/08/2024 04:53 PM 180 mg/dL N Blood chemistry[[id number]] Glucose [Mass/volume] in Serum or Plasma [2345-7] 11/08/2024 05:02 PM 188 mg/dL N Blood chemistry[[id number]] Glucose [Mass/volume] in Serum or Plasma [2345-7] 11/08/2024 09:41 AM 199 mg/dL N Blood chemistry[[id number]] Glucose [Mass/volume] in Serum or Plasma [2345-7] 11/08/2024 12:07 PM 194 mg/dL N Blood chemistry[[id number]] Glucose [Mass/volume] in Serum or Plasma [2345-7] 11/07/2024 11:57 AM 246 mg/dL N Blood chemistry[[id number]] Glucose [Mass/volume] in Serum or Plasma [2345-7] 11/07/2024 05:10 PM 208 mg/dL N Blood chemistry[[id number]] Glucose [Mass/volume] in Serum or Plasma [2345-7] 11/07/2024 10:18 AM 174 mg/dL N Blood chemistry[[id number]] Glucose [Mass/volume] in Serum or Plasma [2345-7] 11/07/2024 10:09 AM 178 mg/dL N Blood chemistry[[id number]] Glucose [Mass/volume] in Serum or Plasma [2345-7] 11/06/2024 12:08 PM 295 mg/dL N Blood chemistry[[id number]] Glucose [Mass/volume] in Serum or Plasma [2345-7] 11/06/2024 05:19 PM 95 mg/dL N Blood chemistry[[id number]] Glucose [Mass/volume] in Serum or Plasma [2345-7] 11/06/2024 10:34 AM 132 mg/dL N Blood chemistry[[id number]] Glucose [Mass/volume] in Serum or Plasma [2345-7] 11/06/2024 10:10 AM 125 mg/dL N Blood chemistry[[id number]] Glucose [Mass/volume] in Serum or Plasma [2345-7] 11/05/2024 11:56 AM 225 mg/dL N Blood chemistry[[id number]] Glucose [Mass/volume] in Serum or Plasma [2345-7] 11/05/2024 05:52 PM 164 mg/dL N Blood chemistry[[id number]] Glucose [Mass/volume] in Serum or Plasma [2345-7] 11/05/2024 09:52 AM 155 mg/dL N Blood chemistry[[id number]] Glucose [Mass/volume] in Serum or Plasma [2345-7] 11/05/2024 12:18 PM 116 mg/dL N Blood chemistry[[id number]] Glucose [Mass/volume] in Serum or Plasma [2345-7] 11/05/2024 10:06 AM 154 mg/dL N Blood chemistry[[id number]] Glucose [Mass/volume] in Serum or Plasma [2345-7] 11/04/2024 11:39 AM 171 mg/dL N Blood chemistry[[id number]] Glucose [Mass/volume] in Serum or Plasma [2345-7] 11/04/2024 04:47 PM 162 mg/dL N Blood chemistry[[id number]] Glucose [Mass/volume] in Serum or Plasma [2345-7] 11/04/2024 10:17 AM 106 mg/dL N Blood chemistry[[id number]] Glucose [Mass/volume] in Serum or Plasma [2345-7] 11/04/2024 12:26 PM 72 mg/dL N Blood chemistry[[id number]] Glucose [Mass/volume] in Serum or Plasma [2345-7] 11/04/2024 10:21 AM 60 mg/dL N Blood chemistry[[id number]] Glucose [Mass/volume] in Serum or Plasma [2345-7] 11/03/2024 01:17 PM 336 mg/dL N Blood chemistry[[id number]] Glucose [Mass/volume] in Serum or Plasma [2345-7] 11/03/2024 03:34 PM 121 mg/dL N Glucose [Mass/volume] in Serum or Plasma [2345-7] 11/03/2024 03:34 PM 121 mg/dL N Blood chemistry[[id number]] Glucose [Mass/volume] in Serum or Plasma [2345-7] 11/03/2024 09:55 AM 184 mg/dL N Blood chemistry[[id number]] Glucose [Mass/volume] in Serum or Plasma [2345-7] 11/03/2024 12:34 PM 101 mg/dL N Blood chemistry[[id number]] Glucose [Mass/volume] in Serum or Plasma [2345-7] 11/03/2024 10:37 AM 136 mg/dL N Blood chemistry[[id number]] Glucose [Mass/volume] in Serum or Plasma [2345-7] 11/02/2024 12:31 PM 327 mg/dL N Blood chemistry[[id number]] Glucose [Mass/volume] in Serum or Plasma [2345-7] 11/02/2024 09:01 AM 141 mg/dL N Blood chemistry[[id number]] Glucose [Mass/volume] in Serum or Plasma [2345-7] 11/02/2024 10:12 AM 156 mg/dL N Blood chemistry[[id number]] Glucose [Mass/volume] in Serum or Plasma [2345-7] 11/01/2024 02:52 PM 255 mg/dL N Blood chemistry[[id number]] Glucose [Mass/volume] in Serum or Plasma [2345-7] 11/01/2024 04:18 PM 178 mg/dL N Blood chemistry[[id number]] Glucose [Mass/volume] in Serum or Plasma [2345-7] 11/01/2024 09:40 AM 199 mg/dL N Blood chemistry[[id number]] Glucose [Mass/volume] in Serum or Plasma [2345-7] 11/01/2024 11:27 AM 190 mg/dL N Blood chemistry[[id number]] Glucose [Mass/volume] in Serum or Plasma [2345-7] 11/01/2024 10:26 AM 155 mg/dL N Blood chemistry[[id number]] Glucose [Mass/volume] in Serum or Plasma [2345-7] 10/31/2024 12:31 PM 353 mg/dL N Blood chemistry[[id number]] Glucose [Mass/volume] in Serum or Plasma [2345-7] 10/31/2024 10:30 AM 306 mg/dL N Blood chemistry[[id number]] Glucose [Mass/volume] in Serum or Plasma [2345-7] 10/31/2024 06:52 AM 127 mg/dL N Blood chemistry[[id number]] Glucose [Mass/volume] in Serum or Plasma [2345-7] 10/31/2024 02:18 PM 144 mg/dL N Blood chemistry[[id number]] Glucose [Mass/volume] in Serum or Plasma [2345-7] 10/30/2024 12:30 PM 188 mg/dL N Blood chemistry[[id number]] Glucose [Mass/volume] in Serum or Plasma [2345-7] 10/30/2024 04:55 PM 200 mg/dL N Blood chemistry[[id number]] Glucose [Mass/volume] in Serum or Plasma [2345-7] 10/30/2024 09:55 AM 141 mg/dL N Blood chemistry[[id number]] Glucose [Mass/volume] in Serum or Plasma [2345-7] 10/30/2024 10:02 AM 102 mg/dL N Blood chemistry[[id number]] Glucose [Mass/volume] in Serum or Plasma [2345-7] 10/29/2024 11:41 AM 163 mg/dL N Blood chemistry[[id number]] Glucose [Mass/volume] in Serum or Plasma [2345-7] 10/29/2024 04:00 PM 78 mg/dL N Glucose [Mass/volume] in Serum or Plasma [2345-7] 10/29/2024 04:00 PM 78 mg/dL N Blood chemistry[[id number]] Glucose [Mass/volume] in Serum or Plasma [2345-7] 10/29/2024 09:47 AM 100 mg/dL N Blood chemistry[[id number]] Glucose [Mass/volume] in Serum or Plasma [2345-7] 10/29/2024 10:28 AM 71 mg/dL N Blood chemistry[[id number]] Glucose [Mass/volume] in Serum or Plasma [2345-7] 10/28/2024 11:54 AM 302 mg/dL N Blood chemistry[[id number]] Glucose [Mass/volume] in Serum or Plasma [2345-7] 10/28/2024 04:10 PM 164 mg/dL N Glucose [Mass/volume] in Serum or Plasma [2345-7] 10/28/2024 04:10 PM 164 mg/dL N Blood chemistry[[id number]] Glucose [Mass/volume] in Serum or Plasma [2345-7] 10/28/2024 09:37 AM 164 mg/dL N Blood chemistry[[id number]] Glucose [Mass/volume] in Serum or Plasma [2345-7] 10/28/2024 06:14 AM 110 mg/dL N Blood chemistry[[id number]] Glucose [Mass/volume] in Serum or Plasma [2345-7] 10/28/2024 11:55 AM 59 mg/dL N Blood chemistry[[id number]] Glucose [Mass/volume] in Serum or Plasma [2345-7] 10/27/2024 12:39 PM 192 mg/dL N Blood chemistry[[id number]] Glucose [Mass/volume] in Serum or Plasma [2345-7] 10/27/2024 03:27 PM 99 mg/dL N Blood chemistry[[id number]] Glucose [Mass/volume] in Serum or Plasma [2345-7] 10/27/2024 09:34 AM 108 mg/dL N Blood chemistry[[id number]] Glucose [Mass/volume] in Serum or Plasma [2345-7] 10/27/2024 11:55 AM 98 mg/dL N Blood chemistry[[id number]] Glucose [Mass/volume] in Serum or Plasma [2345-7] 10/26/2024 01:24 PM 214 mg/dL N Blood chemistry[[id number]] Glucose [Mass/volume] in Serum or Plasma [2345-7] 10/26/2024 03:58 PM 174 mg/dL N Blood chemistry[[id number]] Glucose [Mass/volume] in Serum or Plasma [2345-7] 10/26/2024 09:37 AM 89 mg/dL N Blood chemistry[[id number]] Glucose [Mass/volume] in Serum or Plasma [2345-7] 10/26/2024 09:33 AM 89 mg/dL N Blood chemistry[[id number]] Glucose [Mass/volume] in Serum or Plasma [2345-7] 10/26/2024 10:16 AM 107 mg/dL N Blood chemistry[[id number]] Glucose [Mass/volume] in Serum or Plasma [2345-7] 10/25/2024 11:38 AM 229 mg/dL N Blood chemistry[[id number]] Glucose [Mass/volume] in Serum or Plasma [2345-7] 10/25/2024 04:19 PM 90 mg/dL N Blood chemistry[[id number]] Glucose [Mass/volume] in Serum or Plasma [2345-7] 10/25/2024 08:41 AM 158 mg/dL N Blood chemistry[[id number]] Glucose [Mass/volume] in Serum or Plasma [2345-7] 10/25/2024 12:19 PM 73 mg/dL N Blood chemistry[[id number]] Glucose [Mass/volume] in Serum or Plasma [2345-7] 10/25/2024 10:16 AM 171 mg/dL N Blood chemistry[[id number]] Glucose [Mass/volume] in Serum or Plasma [2345-7] 10/24/2024 12:27 PM 261 mg/dL N Blood chemistry[[id number]] Glucose [Mass/volume] in Serum or Plasma [2345-7] 10/24/2024 05:16 PM 140 mg/dL N Blood chemistry[[id number]] Glucose [Mass/volume] in Serum or Plasma [2345-7] 10/24/2024 09:30 AM 193 mg/dL N Blood chemistry[[id number]] Glucose [Mass/volume] in Serum or Plasma [2345-7] 10/24/2024 11:26 AM 165 mg/dL N Blood chemistry[[id number]] Glucose [Mass/volume] in Serum or Plasma [2345-7] 10/24/2024 10:07 AM 165 mg/dL N Blood chemistry[[id number]] Glucose [Mass/volume] in Serum or Plasma [2345-7] 10/23/2024 11:40 AM 262 mg/dL N Blood chemistry[[id number]] Glucose [Mass/volume] in Serum or Plasma [2345-7] 10/23/2024 04:13 PM 190 mg/dL N Glucose [Mass/volume] in Serum or Plasma [2345-7] 10/23/2024 04:13 PM 190 mg/dL N Blood chemistry[[id number]] Glucose [Mass/volume] in Serum or Plasma [2345-7] 10/23/2024 08:51 AM 178 mg/dL N Glucose [Mass/volume] in Serum or Plasma [2345-7] 10/23/2024 08:51 AM 178 mg/dL N Blood chemistry[[id number]] Glucose [Mass/volume] in Serum or Plasma [2345-7] 10/23/2024 11:05 AM 112 mg/dL N Blood chemistry[[id number]] Glucose [Mass/volume] in Serum or Plasma [2345-7] 10/23/2024 11:01 AM 112 mg/dL N Blood chemistry[[id number]] Glucose [Mass/volume] in Serum or Plasma [2345-7] 10/22/2024 11:27 AM 211 mg/dL N Blood chemistry[] Glucose [Mass/volume] in Serum or Plasma [2345-7] 10/22/2024 03:51 PM 129 mg/dL N Glucose [Mass/volume] in Serum or Plasma [2345-7] 10/22/2024 03:51 PM 129 mg/dL N Blood chemistry[[id number]] Glucose [Mass/volume] in Serum or Plasma [2345-7] 10/22/2024 08:22 AM 174 mg/dL N Blood chemistry[[id number]] Glucose [Mass/volume] in Serum or Plasma [2345-7] 10/22/2024 08:19 AM 174 mg/dL N Blood chemistry[[id number]] Glucose [Mass/volume] in Serum or Plasma [2345-7] 10/22/2024 11:29 AM 85 mg/dL N Blood chemistry[[id number]] Glucose [Mass/volume] in Serum or Plasma [2345-7] 10/22/2024 10:14 AM 102 mg/dL N Blood chemistry[[id number]] Glucose [Mass/volume] in Serum or Plasma [2345-7] 10/21/2024 12:02 PM 187 mg/dL N Blood chemistry[[id number]] Glucose [Mass/volume] in Serum or Plasma [2345-7] 10/21/2024 05:15 PM 88 mg/dL N Blood chemistry[[id number]] Glucose [Mass/volume] in Serum or Plasma [2345-7] 10/21/2024 10:35 AM 88 mg/dL N Blood chemistry[[id number]] Glucose [Mass/volume] in Serum or Plasma [2345-7] 10/21/2024 12:14 PM 78 mg/dL N Blood chemistry[[id number]] Glucose [Mass/volume] in Serum or Plasma [2345-7] 10/20/2024 11:46 AM 283 mg/dL N Blood chemistry[[id number]] Glucose [Mass/volume] in Serum or Plasma [2345-7] 10/20/2024 04:05 PM 112 mg/dL N Blood chemistry[[id number]] Glucose [Mass/volume] in Serum or Plasma [2345-7] 10/20/2024 09:38 AM 127 mg/dL N Blood chemistry[[id number]] Glucose [Mass/volume] in Serum or Plasma [2345-7] 10/20/2024 10:18 AM 72 mg/dL N Blood chemistry[[id number]] Glucose [Mass/volume] in Serum or Plasma [2345-7] 10/19/2024 12:35 PM 223 mg/dL N Blood chemistry[[id number]] Glucose [Mass/volume] in Serum or Plasma [2345-7] 10/19/2024 04:57 PM 95 mg/dL N Blood chemistry[[id number]] Glucose [Mass/volume] in Serum or Plasma [2345-7] 10/19/2024 10:14 AM 88 mg/dL N Blood chemistry[[id number]] Glucose [Mass/volume] in Serum or Plasma [2345-7] 10/19/2024 12:40 PM 128 mg/dL N Blood chemistry[[id number]] Glucose [Mass/volume] in Serum or Plasma [2345-7] 10/18/2024 12:24 PM 243 mg/dL N Blood chemistry[[id number]] Glucose [Mass/volume] in Serum or Plasma [2345-7] 10/18/2024 03:43 PM 200 mg/dL N Blood chemistry[[id number]] Glucose [Mass/volume] in Serum or Plasma [2345-7] 10/18/2024 08:32 AM 173 mg/dL N Blood chemistry[[id number]] Glucose [Mass/volume] in Serum or Plasma [2345-7] 10/18/2024 11:54 AM 108 mg/dL N Blood chemistry[[id number]] Glucose [Mass/volume] in Serum or Plasma [2345-7] 10/18/2024 10:51 AM 72 mg/dL N Blood chemistry[[id number]] Glucose [Mass/volume] in Serum or Plasma [2345-7] 10/17/2024 01:05 PM 307 mg/dL N Blood chemistry[[id number]] Glucose [Mass/volume] in Serum or Plasma [2345-7] 10/17/2024 05:57 PM 107 mg/dL N Blood chemistry[[id number]] Glucose [Mass/volume] in Serum or Plasma [2345-7] 10/17/2024 10:11 AM 135 mg/dL N Blood chemistry[[id number]] Glucose [Mass/volume] in Serum or Plasma [2345-7] 10/17/2024 08:21 AM 107 mg/dL N Blood chemistry[[id number]] Glucose [Mass/volume] in Serum or Plasma [2345-7] 10/17/2024 12:14 PM 159 mg/dL N Blood chemistry[[id number]] Glucose [Mass/volume] in Serum or Plasma [2345-7] 10/16/2024 12:55 PM 195 mg/dL N Blood chemistry[[id number]] Glucose [Mass/volume] in Serum or Plasma [2345-7] 10/16/2024 04:39 PM 144 mg/dL N Blood chemistry[[id number]] Glucose [Mass/volume] in Serum or Plasma [2345-7] 10/16/2024 10:04 AM 203 mg/dL N Blood chemistry[[id number]] Glucose [Mass/volume] in Serum or Plasma [2345-7] 10/16/2024 10:02 AM 98 mg/dL N Blood chemistry[[id number]] Glucose [Mass/volume] in Serum or Plasma [2345-7] 10/15/2024 11:33 AM 286 mg/dL N Blood chemistry[[id number]] Glucose [Mass/volume] in Serum or Plasma [2345-7] 10/15/2024 04:44 PM 236 mg/dL N Blood chemistry[[id number]] Glucose [Mass/volume] in Serum or Plasma [2345-7] 10/15/2024 09:26 AM 216 mg/dL N Blood chemistry[[id number]] Glucose [Mass/volume] in Serum or Plasma [2345-7] 10/15/2024 01:17 PM 191 mg/dL N Blood chemistry[[id number]] Glucose [Mass/volume] in Serum or Plasma [2345-7] 10/15/2024 10:18 AM 131 mg/dL N Blood chemistry[[id number]] Glucose [Mass/volume] in Serum or Plasma [2345-7] 10/14/2024 11:39 AM 216 mg/dL N Blood chemistry[[id number]] Glucose [Mass/volume] in Serum or Plasma [2345-7] 10/14/2024 09:38 AM 155 mg/dL N Blood chemistry[[id number]] Glucose [Mass/volume] in Serum or Plasma [2345-7] 10/14/2024 06:34 AM 279 mg/dL N Blood chemistry[[id number]] Glucose [Mass/volume] in Serum or Plasma [2345-7] 10/13/2024 05:55 PM 134 mg/dL N Blood chemistry[[id number]] Glucose [Mass/volume] in Serum or Plasma [2345-7] 10/13/2024 02:20 PM 154 mg/dL N Blood chemistry[[id number]] Glucose [Mass/volume] in Serum or Plasma [2345-7] 10/13/2024 09:45 AM 154 mg/dL N Blood chemistry[[id number]] Glucose [Mass/volume] in Serum or Plasma [2345-7] 10/13/2024 09:54 AM 115 mg/dL N Blood chemistry[[id number]] Glucose [Mass/volume] in Serum or Plasma [2345-7] 10/12/2024 12:29 PM 245 mg/dL N Blood chemistry[[id number]] Glucose [Mass/volume] in Serum or Plasma [2345-7] 10/12/2024 09:05 AM 109 mg/dL N Blood chemistry[[id number]] Glucose [Mass/volume] in Serum or Plasma [2345-7] 10/12/2024 08:56 AM 109 mg/dL N Blood chemistry[[id number]] Glucose [Mass/volume] in Serum or Plasma [2345-7] 10/12/2024 03:18 PM 107 mg/dL N Blood chemistry[[id number]] Glucose [Mass/volume] in Serum or Plasma [2345-7] 10/12/2024 03:16 PM 107 mg/dL N Blood chemistry[[id number]] Glucose [Mass/volume] in Serum or Plasma [2345-7] 10/12/2024 11:57 AM 90 mg/dL N Blood chemistry[[id number]] Glucose [Mass/volume] in Serum or Plasma [2345-7] 10/12/2024 10:32 AM 99 mg/dL N Blood chemistry[[id number]] Glucose [Mass/volume] in Serum or Plasma [2345-7] 10/11/2024 05:12 PM 137 mg/dL N Blood chemistry[[id number]] Glucose [Mass/volume] in Serum or Plasma [2345-7] 10/11/2024 04:20 PM 200 mg/dL N Blood chemistry[[id number]] Glucose [Mass/volume] in Serum or Plasma [2345-7] 10/11/2024 01:22 PM 222 mg/dL N Blood chemistry[[id number]] Glucose [Mass/volume] in Serum or Plasma [2345-7] 10/11/2024 10:34 AM 85 mg/dL N Blood chemistry[[id number]] Glucose [Mass/volume] in Serum or Plasma [2345-7] 10/11/2024 11:10 AM 119 mg/dL N Blood chemistry[[id number]] Glucose [Mass/volume] in Serum or Plasma [2345-7] 10/10/2024 01:41 PM 236 mg/dL N Blood chemistry[[id number]] Glucose [Mass/volume] in Serum or Plasma [2345-7] 10/10/2024 10:04 AM 170 mg/dL N Blood chemistry[[id number]] Glucose [Mass/volume] in Serum or Plasma [2345-7] 10/10/2024 05:59 PM 125 mg/dL N Blood chemistry[[id number]] Glucose [Mass/volume] in Serum or Plasma [2345-7] 10/10/2024 02:01 PM 132 mg/dL N Blood chemistry[[id number]] Glucose [Mass/volume] in Serum or Plasma [2345-7] 10/10/2024 11:15 AM 157 mg/dL N Blood chemistry[[id number]] Glucose [Mass/volume] in Serum or Plasma [2345-7] 10/09/2024 12:45 PM 337 mg/dL N Blood chemistry[[id number]] Glucose [Mass/volume] in Serum or Plasma [2345-7] 10/09/2024 11:22 AM 167 mg/dL N Blood chemistry[[id number]] Glucose [Mass/volume] in Serum or Plasma [2345-7] 10/09/2024 02:57 PM 142 mg/dL N Blood chemistry[[id number]] Glucose [Mass/volume] in Serum or Plasma [2345-7] 10/09/2024 11:11 AM 142 mg/dL N Blood chemistry[[id number]] Glucose [Mass/volume] in Serum or Plasma [2345-7] 10/09/2024 07:23 AM 123 mg/dL N Blood chemistry[[id number]] Glucose [Mass/volume] in Serum or Plasma [2345-7] 10/08/2024 12:39 PM 219 mg/dL N Blood chemistry[[id number]] Glucose [Mass/volume] in Serum or Plasma [2345-7] 10/08/2024 10:04 AM 259 mg/dL N Blood chemistry[[id number]] Glucose [Mass/volume] in Serum or Plasma [2345-7] 10/08/2024 05:29 PM 109 mg/dL N Glucose [Mass/volume] in Serum or Plasma [2345-7] 10/08/2024 05:29 PM 109 mg/dL N Blood chemistry[[id number]] Glucose [Mass/volume] in Serum or Plasma [2345-7] 10/08/2024 11:19 AM 105 mg/dL N Blood chemistry[[id number]] Glucose [Mass/volume] in Serum or Plasma [2345-7] 10/07/2024 12:39 PM 188 mg/dL N Blood chemistry[[id number]] Glucose [Mass/volume] in Serum or Plasma [2345-7] 10/07/2024 11:24 AM 169 mg/dL N Blood chemistry[[id number]] Glucose [Mass/volume] in Serum or Plasma [2345-7] 10/07/2024 06:16 PM 96 mg/dL N Blood chemistry[[id number]] Glucose [Mass/volume] in Serum or Plasma [2345-7] 10/07/2024 01:49 PM 65 mg/dL N Blood chemistry[[id number]] Glucose [Mass/volume] in Serum or Plasma [2345-7] 10/06/2024 06:12 PM 91 mg/dL N Blood chemistry[[id number]] Glucose [Mass/volume] in Serum or Plasma [2345-7] 10/06/2024 01:00 PM 75 mg/dL N Blood chemistry[[id number]] Glucose [Mass/volume] in Serum or Plasma [2345-7] 10/06/2024 12:46 PM 270 mg/dL N Blood chemistry[[id number]] Glucose [Mass/volume] in Serum or Plasma [2345-7] 10/06/2024 09:59 AM 148 mg/dL N Blood chemistry[[id number]] Glucose [Mass/volume] in Serum or Plasma [2345-7] 10/06/2024 11:02 AM 68 mg/dL N Blood chemistry[[id number]] Glucose [Mass/volume] in Serum or Plasma [2345-7] 10/05/2024 01:45 PM 223 mg/dL N Blood chemistry[[id number]] Glucose [Mass/volume] in Serum or Plasma [2345-7] 10/05/2024 10:53 AM 189 mg/dL N Blood chemistry[[id number]] Glucose [Mass/volume] in Serum or Plasma [2345-7] 10/05/2024 06:12 PM 150 mg/dL N Blood chemistry[[id number]] Glucose [Mass/volume] in Serum or Plasma [2345-7] 10/05/2024 11:18 AM 100 mg/dL N Blood chemistry[[id number]] Glucose [Mass/volume] in Serum or Plasma [2345-7] 10/04/2024 03:19 PM 362 mg/dL N Blood chemistry[[id number]] Glucose [Mass/volume] in Serum or Plasma [2345-7] 10/04/2024 10:26 AM 279 mg/dL N Blood chemistry[[id number]] Glucose [Mass/volume] in Serum or Plasma [2345-7] 10/04/2024 04:28 PM 208 mg/dL N Blood chemistry[[id number]] Glucose [Mass/volume] in Serum or Plasma [2345-7] 10/04/2024 11:39 AM 190 mg/dL N Blood chemistry[[id number]] Glucose [Mass/volume] in Serum or Plasma [2345-7] 10/03/2024 02:21 PM 274 mg/dL N Blood chemistry[[id number]] Glucose [Mass/volume] in Serum or Plasma [2345-7] 10/03/2024 02:06 PM 140 mg/dL N Blood chemistry[[id number]] Glucose [Mass/volume] in Serum or Plasma [2345-7] 10/03/2024 10:57 AM 221 mg/dL N Blood chemistry[[id number]] Glucose [Mass/volume] in Serum or Plasma [2345-7] 10/03/2024 09:44 AM 137 mg/dL N Blood chemistry[[id number]] Glucose [Mass/volume] in Serum or Plasma [2345-7] 10/02/2024 03:03 PM 285 mg/dL N Blood chemistry[[id number]] Glucose [Mass/volume] in Serum or Plasma [2345-7] 10/02/2024 11:31 AM 143 mg/dL N Blood chemistry[[id number]] Glucose [Mass/volume] in Serum or Plasma [2345-7] 10/02/2024 06:34 PM 217 mg/dL N Blood chemistry[[id number]] Glucose [Mass/volume] in Serum or Plasma [2345-7] 10/02/2024 01:55 PM 220 mg/dL N Blood chemistry[[id number]] Glucose [Mass/volume] in Serum or Plasma [2345-7] 10/01/2024 06:07 PM 171 mg/dL N Blood chemistry[[id number]] Glucose [Mass/volume] in Serum or Plasma [2345-7] 10/01/2024 12:58 PM 145 mg/dL N Blood chemistry[[id number]] Glucose [Mass/volume] in Serum or Plasma [2345-7] 10/01/2024 12:39 PM 259 mg/dL N Blood chemistry[[id number]] Glucose [Mass/volume] in Serum or Plasma [2345-7] 10/01/2024 11:09 AM 134 mg/dL N Blood chemistry[[id number]] Glucose [Mass/volume] in Serum or Plasma [2345-7] 10/01/2024 11:01 AM 145 mg/dL N Blood chemistry[] Glucose [Mass/volume] in Serum or Plasma [2345-7] 09/30/2024 12:51 PM 355 mg/dL N Blood chemistry[] Glucose [Mass/volume] in Serum or Plasma [2345-7] 09/30/2024 11:41 AM 169 mg/dL N Blood chemistry[] Glucose [Mass/volume] in Serum or Plasma [2345-7] 09/30/2024 02:42 PM 157 mg/dL N Blood chemistry[[id number]] Glucose [Mass/volume] in Serum or Plasma [2345-7] 09/30/2024 07:08 AM 146 mg/dL N Blood chemistry[] Glucose [Mass/volume] in Serum or Plasma [2345-7] 09/29/2024 04:24 PM 145 mg/dL N Blood chemistry[] Glucose [Mass/volume] in Serum or Plasma [2345-7] 09/29/2024 03:01 PM 83 mg/dL N Blood chemistry[[id number]] Glucose [Mass/volume] in Serum or Plasma [2345-7] 09/29/2024 12:58 PM 434 mg/dL N Blood chemistry[[id number]] Glucose [Mass/volume] in Serum or Plasma [2345-7] 09/29/2024 11:28 AM 79 mg/dL N Blood chemistry[] Glucose [Mass/volume] in Serum or Plasma [2345-7] 09/29/2024 10:21 AM 147 mg/dL N Blood chemistry[[id number]] Glucose [Mass/volume] in Serum or Plasma [2345-7] 09/28/2024 01:19 PM 327 mg/dL N Blood chemistry[[id number]] Glucose [Mass/volume] in Serum or Plasma [2345-7] 09/28/2024 10:52 AM 199 mg/dL N Blood chemistry[[id number]] Glucose [Mass/volume] in Serum or Plasma [2345-7] 09/28/2024 06:39 PM 86 mg/dL N Blood chemistry[[id number]] Glucose [Mass/volume] in Serum or Plasma [2345-7] 09/28/2024 01:31 PM 78 mg/dL N Blood chemistry[[id number]] Glucose [Mass/volume] in Serum or Plasma [2345-7] 09/28/2024 11:04 AM 47 mg/dL N Blood chemistry[[id number]] Glucose [Mass/volume] in Serum or Plasma [2345-7] 09/27/2024 06:45 PM 146 mg/dL N Blood chemistry[[id number]] Glucose [Mass/volume] in Serum or Plasma [2345-7] 09/27/2024 06:42 PM 146 mg/dL N Glucose [Mass/volume] in Serum or Plasma [2345-7] 09/27/2024 06:42 PM 75 mg/dL N Blood chemistry[[id number]] Glucose [Mass/volume] in Serum or Plasma [2345-7] 09/27/2024 01:26 PM 406 mg/dL N Blood chemistry[[id number]] Glucose [Mass/volume] in Serum or Plasma [2345-7] 09/27/2024 11:15 AM 112 mg/dL N Blood chemistry[[id number]] Glucose [Mass/volume] in Serum or Plasma [2345-7] 09/26/2024 02:03 PM 243 mg/dL N Blood chemistry[[id number]] Glucose [Mass/volume] in Serum or Plasma [2345-7] 09/26/2024 11:28 AM 261 mg/dL N Blood chemistry[[id number]] Glucose [Mass/volume] in Serum or Plasma [2345-7] 09/26/2024 06:16 PM 195 mg/dL N Blood chemistry[[id number]] Glucose [Mass/volume] in Serum or Plasma [2345-7] 09/26/2024 01:14 PM 116 mg/dL N Blood chemistry[[id number]] Glucose [Mass/volume] in Serum or Plasma [2345-7] 09/26/2024 01:09 PM 116 mg/dL N Blood chemistry[[id number]] Glucose [Mass/volume] in Serum or Plasma [2345-7] 09/25/2024 12:28 PM 203 mg/dL N Blood chemistry[[id number]] Glucose [Mass/volume] in Serum or Plasma [2345-7] 09/25/2024 05:51 PM 158 mg/dL N Blood chemistry[[id number]] Glucose [Mass/volume] in Serum or Plasma [2345-7] 09/25/2024 01:11 PM 107 mg/dL N Blood chemistry[[id number]] Glucose [Mass/volume] in Serum or Plasma [2345-7] 09/24/2024 01:18 PM 306 mg/dL N Blood chemistry[[id number]] Glucose [Mass/volume] in Serum or Plasma [2345-7] 09/24/2024 12:03 PM 176 mg/dL N Blood chemistry[[id number]] Glucose [Mass/volume] in Serum or Plasma [2345-7] 09/24/2024 05:29 PM 189 mg/dL N Blood chemistry[[id number]] Glucose [Mass/volume] in Serum or Plasma [2345-7] 09/24/2024 02:02 PM 98 mg/dL N Blood chemistry[[id number]] Glucose [Mass/volume] in Serum or Plasma [2345-7] 09/23/2024 01:03 PM 231 mg/dL N Blood chemistry[[id number]] Glucose [Mass/volume] in Serum or Plasma [2345-7] 09/23/2024 09:30 AM 247 mg/dL N Blood chemistry[[id number]] Glucose [Mass/volume] in Serum or Plasma [2345-7] 09/23/2024 09:29 AM 247 mg/dL N Blood chemistry[[id number]] Glucose [Mass/volume] in Serum or Plasma [2345-7] 09/23/2024 01:20 PM 57 mg/dL N Blood chemistry[[id number]] Glucose [Mass/volume] in Serum or Plasma [2345-7] 09/23/2024 07:47 AM 93 mg/dL N Blood chemistry[[id number]] Glucose [Mass/volume] in Serum or Plasma [2345-7] 09/22/2024 06:14 PM 94 mg/dL N Blood chemistry[[id number]] Glucose [Mass/volume] in Serum or Plasma [2345-7] 09/22/2024 01:44 PM 166 mg/dL N Blood chemistry[[id number]] Glucose [Mass/volume] in Serum or Plasma [2345-7] 09/22/2024 01:38 PM 110 mg/dL N Blood chemistry[[id number]] Glucose [Mass/volume] in Serum or Plasma [2345-7] 09/22/2024 10:25 AM 81 mg/dL N Blood chemistry[[id number]] Glucose [Mass/volume] in Serum or Plasma [2345-7] 09/21/2024 01:43 PM 183 mg/dL N Blood chemistry[[id number]] Glucose [Mass/volume] in Serum or Plasma [2345-7] 09/21/2024 11:46 AM 99 mg/dL N Blood chemistry[[id number]] Glucose [Mass/volume] in Serum or Plasma [2345-7] 09/21/2024 02:25 PM 105 mg/dL N Blood chemistry[[id number]] Glucose [Mass/volume] in Serum or Plasma [2345-7] 09/21/2024 11:45 AM 134 mg/dL N Blood chemistry[[id number]] Glucose [Mass/volume] in Serum or Plasma [2345-7] 09/21/2024 08:27 AM 85 mg/dL N Blood chemistry[[id number]] Glucose [Mass/volume] in Serum or Plasma [2345-7] 09/20/2024 05:22 PM 94 mg/dL N Blood chemistry[[id number]] Glucose [Mass/volume] in Serum or Plasma [2345-7] 09/20/2024 01:35 PM 217 mg/dL N Blood chemistry[[id number]] Glucose [Mass/volume] in Serum or Plasma [2345-7] 09/20/2024 01:08 PM 87 mg/dL N Blood chemistry[[id number]] Glucose [Mass/volume] in Serum or Plasma [2345-7] 09/20/2024 11:27 AM 114 mg/dL N Blood chemistry[[id number]] Glucose [Mass/volume] in Serum or Plasma [2345-7] 09/19/2024 02:27 PM 200 mg/dL N Blood chemistry[[id number]] Glucose [Mass/volume] in Serum or Plasma [2345-7] 09/19/2024 11:01 AM 145 mg/dL N Blood chemistry[[id number]] Glucose [Mass/volume] in Serum or Plasma [2345-7] 09/19/2024 05:57 PM 137 mg/dL N Blood chemistry[[id number]] Glucose [Mass/volume] in Serum or Plasma [2345-7] 09/19/2024 02:26 PM 104 mg/dL N Blood chemistry[[id number]] Glucose [Mass/volume] in Serum or Plasma [2345-7] 09/18/2024 05:10 PM 155 mg/dL N Blood chemistry[[id number]] Glucose [Mass/volume] in Serum or Plasma [2345-7] 09/18/2024 02:29 PM 81 mg/dL N Blood chemistry[[id number]] Glucose [Mass/volume] in Serum or Plasma [2345-7] 09/18/2024 01:54 PM 297 mg/dL N Blood chemistry[[id number]] Glucose [Mass/volume] in Serum or Plasma [2345-7] 09/18/2024 11:33 AM 157 mg/dL N Blood chemistry[[id number]] Glucose [Mass/volume] in Serum or Plasma [2345-7] 09/17/2024 05:00 PM 134 mg/dL N Blood chemistry[[id number]] Glucose [Mass/volume] in Serum or Plasma [2345-7] 09/17/2024 02:52 PM 141 mg/dL N Blood chemistry[[id number]] Glucose [Mass/volume] in Serum or Plasma [2345-7] 09/17/2024 12:43 PM 351 mg/dL N Blood chemistry[[id number]] Glucose [Mass/volume] in Serum or Plasma [2345-7] 09/17/2024 11:06 AM 114 mg/dL N Blood chemistry[[id number]] Glucose [Mass/volume] in Serum or Plasma [2345-7] 09/17/2024 11:00 AM 179 mg/dL N Blood chemistry[[id number]] Glucose [Mass/volume] in Serum or Plasma [2345-7] 09/16/2024 06:00 PM 155 mg/dL N Blood chemistry[[id number]] Glucose [Mass/volume] in Serum or Plasma [2345-7] 09/16/2024 01:10 PM 102 mg/dL N Blood chemistry[[id number]] Glucose [Mass/volume] in Serum or Plasma [2345-7] 09/16/2024 01:09 PM 102 mg/dL N Blood chemistry[[id number]] Glucose [Mass/volume] in Serum or Plasma [2345-7] 09/16/2024 12:33 PM 208 mg/dL N Blood chemistry[[id number]] Glucose [Mass/volume] in Serum or Plasma [2345-7] 09/16/2024 10:37 AM 143 mg/dL N Blood chemistry[[id number]] Glucose [Mass/volume] in Serum or Plasma [2345-7] 09/15/2024 02:23 PM 229 mg/dL N Blood chemistry[[id number]] Glucose [Mass/volume] in Serum or Plasma [2345-7] 09/15/2024 06:15 PM 119 mg/dL N Blood chemistry[[id number]] Glucose [Mass/volume] in Serum or Plasma [2345-7] 09/15/2024 12:43 PM 66 mg/dL N Blood chemistry[[id number]] Glucose [Mass/volume] in Serum or Plasma [2345-7] 09/15/2024 10:38 AM 133 mg/dL N Blood chemistry[[id number]] Glucose [Mass/volume] in Serum or Plasma [2345-7] 09/14/2024 05:59 PM 126 mg/dL N Blood chemistry[[id number]] Glucose [Mass/volume] in Serum or Plasma [2345-7] 09/14/2024 03:37 PM 81 mg/dL N Blood chemistry[[id number]] Glucose [Mass/volume] in Serum or Plasma [2345-7] 09/14/2024 01:44 PM 228 mg/dL N Blood chemistry[[id number]] Glucose [Mass/volume] in Serum or Plasma [2345-7] 09/14/2024 10:58 AM 148 mg/dL N Blood chemistry[[id number]] Glucose [Mass/volume] in Serum or Plasma [2345-7] 09/13/2024 02:31 PM 283 mg/dL N Blood chemistry[[id number]] Glucose [Mass/volume] in Serum or Plasma [2345-7] 09/13/2024 12:20 PM 141 mg/dL N Blood chemistry[[id number]] Glucose [Mass/volume] in Serum or Plasma [2345-7] 09/13/2024 06:38 PM 219 mg/dL N Blood chemistry[[id number]] Glucose [Mass/volume] in Serum or Plasma [2345-7] 09/13/2024 02:58 PM 76 mg/dL N Blood chemistry[[id number]] Glucose [Mass/volume] in Serum or Plasma [2345-7] 09/13/2024 11:24 AM 96 mg/dL N Blood chemistry[[id number]] Glucose [Mass/volume] in Serum or Plasma [2345-7] 09/12/2024 02:42 PM 238 mg/dL N Blood chemistry[[id number]] Glucose [Mass/volume] in Serum or Plasma [2345-7] 09/12/2024 06:52 PM 137 mg/dL N Blood chemistry[[id number]] Glucose [Mass/volume] in Serum or Plasma [2345-7] 09/12/2024 01:06 PM 173 mg/dL N Blood chemistry[[id number]] Glucose [Mass/volume] in Serum or Plasma [2345-7] 09/12/2024 11:22 AM 232 mg/dL N Blood chemistry[[id number]] Glucose [Mass/volume] in Serum or Plasma [2345-7] 09/12/2024 10:02 AM 202 mg/dL N Blood chemistry[[id number]] Glucose [Mass/volume] in Serum or Plasma [2345-7] 09/11/2024 12:51 PM 227 mg/dL N Blood chemistry[[id number]] Glucose [Mass/volume] in Serum or Plasma [2345-7] 09/11/2024 06:10 PM 128 mg/dL N Blood chemistry[[id number]] Glucose [Mass/volume] in Serum or Plasma [2345-7] 09/11/2024 02:05 PM 126 mg/dL N Blood chemistry[[id number]] Glucose [Mass/volume] in Serum or Plasma [2345-7] 09/11/2024 11:19 AM 144 mg/dL N Blood chemistry[[id number]] Glucose [Mass/volume] in Serum or Plasma [2345-7] 09/11/2024 11:04 AM 130 mg/dL N Blood chemistry[[id number]] Glucose [Mass/volume] in Serum or Plasma [2345-7] 09/10/2024 12:40 PM 180 mg/dL N Blood chemistry[[id number]] Glucose [Mass/volume] in Serum or Plasma [2345-7] 09/10/2024 06:11 PM 117 mg/dL N Blood chemistry[[id number]] Glucose [Mass/volume] in Serum or Plasma [2345-7] 09/10/2024 01:08 PM 118 mg/dL N Blood chemistry[[id number]] Glucose [Mass/volume] in Serum or Plasma [2345-7] 09/10/2024 11:15 AM 162 mg/dL N Blood chemistry[[id number]] Glucose [Mass/volume] in Serum or Plasma [2345-7] 09/10/2024 11:11 AM 113 mg/dL N Blood chemistry[[id number]] Glucose [Mass/volume] in Serum or Plasma [2345-7] 09/09/2024 12:56 PM 178 mg/dL N Blood chemistry[[id number]] Glucose [Mass/volume] in Serum or Plasma [2345-7] 09/09/2024 06:06 PM 87 mg/dL N Blood chemistry[[id number]] Glucose [Mass/volume] in Serum or Plasma [2345-7] 09/09/2024 01:40 PM 84 mg/dL N Blood chemistry[[id number]] Glucose [Mass/volume] in Serum or Plasma [2345-7] 09/09/2024 10:34 AM 119 mg/dL N Blood chemistry[[id number]] Glucose [Mass/volume] in Serum or Plasma [2345-7] 09/08/2024 06:07 PM 82 mg/dL N Blood chemistry[[id number]] Glucose [Mass/volume] in Serum or Plasma [2345-7] 09/08/2024 03:16 PM 51 mg/dL N Blood chemistry[[id number]] Glucose [Mass/volume] in Serum or Plasma [2345-7] 09/08/2024 02:12 PM 278 mg/dL N Blood chemistry[[id number]] Glucose [Mass/volume] in Serum or Plasma [2345-7] 09/08/2024 11:08 AM 121 mg/dL N Blood chemistry[[id number]] Glucose [Mass/volume] in Serum or Plasma [2345-7] 09/07/2024 02:10 PM 215 mg/dL N Blood chemistry[[id number]] Glucose [Mass/volume] in Serum or Plasma [2345-7] 09/07/2024 11:25 AM 170 mg/dL N Blood chemistry[[id number]] Glucose [Mass/volume] in Serum or Plasma [2345-7] 09/07/2024 06:12 PM 110 mg/dL N Blood chemistry[[id number]] Glucose [Mass/volume] in Serum or Plasma [2345-7] 09/07/2024 02:37 PM 75 mg/dL N Blood chemistry[[id number]] Glucose [Mass/volume] in Serum or Plasma [2345-7] 09/07/2024 02:35 PM 75 mg/dL N Blood chemistry[[id number]] Glucose [Mass/volume] in Serum or Plasma [2345-7] 09/06/2024 02:13 PM 262 mg/dL N Blood chemistry[[id number]] Glucose [Mass/volume] in Serum or Plasma [2345-7] 09/06/2024 10:36 AM 171 mg/dL N Blood chemistry[[id number]] Glucose [Mass/volume] in Serum or Plasma [2345-7] 09/06/2024 06:21 PM 200 mg/dL N Blood chemistry[[id number]] Glucose [Mass/volume] in Serum or Plasma [2345-7] 09/06/2024 02:59 PM 225 mg/dL N Blood chemistry[[id number]] Glucose [Mass/volume] in Serum or Plasma [2345-7] 09/05/2024 03:45 PM 201 mg/dL N Blood chemistry[[id number]] Glucose [Mass/volume] in Serum or Plasma [2345-7] 09/05/2024 12:33 PM 177 mg/dL N Blood chemistry[[id number]] Glucose [Mass/volume] in Serum or Plasma [2345-7] 09/05/2024 03:35 PM 131 mg/dL N Glucose [Mass/volume] in Serum or Plasma [2345-7] 09/05/2024 03:35 PM 131 mg/dL N Blood chemistry[[id number]] Glucose [Mass/volume] in Serum or Plasma [2345-7] 09/05/2024 07:10 AM 169 mg/dL N Blood chemistry[[id number]] Glucose [Mass/volume] in Serum or Plasma [2345-7] 09/04/2024 05:38 PM 185 mg/dL N Blood chemistry[[id number]] Glucose [Mass/volume] in Serum or Plasma [2345-7] 09/04/2024 03:07 PM 52 mg/dL N Blood chemistry[[id number]] Glucose [Mass/volume] in Serum or Plasma [2345-7] 09/04/2024 01:31 PM 52 mg/dL N Blood chemistry[[id number]] Glucose [Mass/volume] in Serum or Plasma [2345-7] 09/04/2024 11:09 AM 119 mg/dL N Blood chemistry[[id number]] Glucose [Mass/volume] in Serum or Plasma [2345-7] 09/04/2024 11:08 AM 62 mg/dL N Blood chemistry[[id number]] Glucose [Mass/volume] in Serum or Plasma [2345-7] 09/04/2024 11:07 AM 119 mg/dL N Glucose [Mass/volume] in Serum or Plasma [2345-7] 09/04/2024 11:07 AM 62 mg/dL N Blood chemistry[[id number]] Glucose [Mass/volume] in Serum or Plasma [2345-7] 09/03/2024 02:26 PM 210 mg/dL N Blood chemistry[[id number]] Glucose [Mass/volume] in Serum or Plasma [2345-7] 09/03/2024 05:05 PM 115 mg/dL N Blood chemistry[[id number]] Glucose [Mass/volume] in Serum or Plasma [2345-7] 09/03/2024 05:03 PM 57 mg/dL N Blood chemistry[[id number]] Glucose [Mass/volume] in Serum or Plasma [2345-7] 09/03/2024 12:26 PM 174 mg/dL N Blood chemistry[[id number]] Glucose [Mass/volume] in Serum or Plasma [2345-7] 09/03/2024 08:36 AM 115 mg/dL N Blood chemistry[[id number]] Glucose [Mass/volume] in Serum or Plasma [2345-7] 09/02/2024 01:01 PM 148 mg/dL N Blood chemistry[[id number]] Glucose [Mass/volume] in Serum or Plasma [2345-7] 09/02/2024 06:38 PM 201 mg/dL N Blood chemistry[[id number]] Glucose [Mass/volume] in Serum or Plasma [2345-7] 09/02/2024 12:36 PM 174 mg/dL N Blood chemistry[[id number]] Glucose [Mass/volume] in Serum or Plasma [2345-7] 09/02/2024 11:10 AM 87 mg/dL N Blood chemistry[[id number]] Glucose [Mass/volume] in Serum or Plasma [2345-7] 09/01/2024 01:27 PM 187 mg/dL N Blood chemistry[[id number]] Glucose [Mass/volume] in Serum or Plasma [2345-7] 09/01/2024 05:43 PM 86 mg/dL N Blood chemistry[[id number]] Glucose [Mass/volume] in Serum or Plasma [2345-7] 09/01/2024 01:06 PM 73 mg/dL N Blood chemistry[[id number]] Glucose [Mass/volume] in Serum or Plasma [2345-7] 09/01/2024 12:44 PM 268 mg/dL N Glucose [Mass/volume] in Serum or Plasma [2345-7] 09/01/2024 12:44 PM 268 mg/dL N Blood chemistry[[id number]] Glucose [Mass/volume] in Serum or Plasma [2345-7] 08/31/2024 05:32 PM 135 mg/dL N Glucose [Mass/volume] in Serum or Plasma [2345-7] 08/31/2024 05:32 PM 135 mg/dL N Blood chemistry[[id number]] Glucose [Mass/volume] in Serum or Plasma [2345-7] 08/31/2024 05:07 PM 67 mg/dL N Blood chemistry[] Glucose [Mass/volume] in Serum or Plasma [2345-7] 08/31/2024 03:04 PM 290 mg/dL N Blood chemistry[[id number]] Glucose [Mass/volume] in Serum or Plasma [2345-7] 08/31/2024 12:42 PM 133 mg/dL N Blood chemistry[[id number]] Glucose [Mass/volume] in Serum or Plasma [2345-7] 08/30/2024 02:23 PM 250 mg/dL N Blood chemistry[[id number]] Glucose [Mass/volume] in Serum or Plasma [2345-7] 08/30/2024 10:25 AM 117 mg/dL N Blood chemistry[[id number]] Glucose [Mass/volume] in Serum or Plasma [2345-7] 08/30/2024 04:59 PM 174 mg/dL N Blood chemistry[[id number]] Glucose [Mass/volume] in Serum or Plasma [2345-7] 08/30/2024 01:49 PM 127 mg/dL N Blood chemistry[[id number]] Glucose [Mass/volume] in Serum or Plasma [2345-7] 08/29/2024 03:00 PM 252 mg/dL N Blood chemistry[[id number]] Glucose [Mass/volume] in Serum or Plasma [2345-7] 08/29/2024 05:33 PM 232 mg/dL N Blood chemistry[[id number]] Glucose [Mass/volume] in Serum or Plasma [2345-7] 08/29/2024 05:07 PM 232 mg/dL N Blood chemistry[[id number]] Glucose [Mass/volume] in Serum or Plasma [2345-7] 08/29/2024 03:53 PM 78 mg/dL N Blood chemistry[[id number]] Glucose [Mass/volume] in Serum or Plasma [2345-7] 08/29/2024 11:08 AM 196 mg/dL N Blood chemistry[[id number]] Glucose [Mass/volume] in Serum or Plasma [2345-7] 08/29/2024 10:55 AM 258 mg/dL N Blood chemistry[[id number]] Glucose [Mass/volume] in Serum or Plasma [2345-7] 08/28/2024 01:12 PM 280 mg/dL N Blood chemistry[[id number]] Glucose [Mass/volume] in Serum or Plasma [2345-7] 08/28/2024 06:24 PM 206 mg/dL N Blood chemistry[[id number]] Glucose [Mass/volume] in Serum or Plasma [2345-7] 08/28/2024 03:51 PM 166 mg/dL N Blood chemistry[[id number]] Glucose [Mass/volume] in Serum or Plasma [2345-7] 08/28/2024 11:26 AM 109 mg/dL N Blood chemistry[[id number]] Glucose [Mass/volume] in Serum or Plasma [2345-7] 08/28/2024 11:15 AM 199 mg/dL N Blood chemistry[[id number]] Glucose [Mass/volume] in Serum or Plasma [2345-7] 08/27/2024 12:00 PM 217 mg/dL N Blood chemistry[[id number]] Glucose [Mass/volume] in Serum or Plasma [2345-7] 08/27/2024 06:10 PM 131 mg/dL N Blood chemistry[[id number]] Glucose [Mass/volume] in Serum or Plasma [2345-7] 08/27/2024 01:33 PM 133 mg/dL N Blood chemistry[[id number]] Glucose [Mass/volume] in Serum or Plasma [2345-7] 08/27/2024 11:09 AM 116 mg/dL N Blood chemistry[[id number]] Glucose [Mass/volume] in Serum or Plasma [2345-7] 08/27/2024 09:45 AM 185 mg/dL N Blood chemistry[[id number]] Glucose [Mass/volume] in Serum or Plasma [2345-7] 08/26/2024 12:48 PM 143 mg/dL N Blood chemistry[[id number]] Glucose [Mass/volume] in Serum or Plasma [2345-7] 08/26/2024 05:59 PM 101 mg/dL N Blood chemistry[[id number]] Glucose [Mass/volume] in Serum or Plasma [2345-7] 08/26/2024 01:15 PM 84 mg/dL N Blood chemistry[[id number]] Glucose [Mass/volume] in Serum or Plasma [2345-7] 08/26/2024 10:28 AM 207 mg/dL N Blood chemistry[[id number]] Glucose [Mass/volume] in Serum or Plasma [2345-7] 08/25/2024 05:32 PM 231 mg/dL N Blood chemistry[[id number]] Glucose [Mass/volume] in Serum or Plasma [2345-7] 08/25/2024 01:41 PM 104 mg/dL N Blood chemistry[[id number]] Glucose [Mass/volume] in Serum or Plasma [2345-7] 08/25/2024 01:35 PM 267 mg/dL N Blood chemistry[[id number]] Glucose [Mass/volume] in Serum or Plasma [2345-7] 08/25/2024 10:29 AM 296 mg/dL N Blood chemistry[[id number]] Glucose [Mass/volume] in Serum or Plasma [2345-7] 08/24/2024 01:08 PM 146 mg/dL N Blood chemistry[[id number]] Glucose [Mass/volume] in Serum or Plasma [2345-7] 08/24/2024 11:26 AM 92 mg/dL N Blood chemistry[[id number]] Glucose [Mass/volume] in Serum or Plasma [2345-7] 08/24/2024 06:10 PM 99 mg/dL N Blood chemistry[[id number]] Glucose [Mass/volume] in Serum or Plasma [2345-7] 08/24/2024 02:15 PM 52 mg/dL N Blood chemistry[[id number]] Glucose [Mass/volume] in Serum or Plasma [2345-7] 08/23/2024 05:20 PM 113 mg/dL N Blood chemistry[[id number]] Glucose [Mass/volume] in Serum or Plasma [2345-7] 08/23/2024 02:26 PM 121 mg/dL N Blood chemistry[[id number]] Glucose [Mass/volume] in Serum or Plasma [2345-7] 08/23/2024 02:16 PM 58 mg/dL N Blood chemistry[[id number]] Glucose [Mass/volume] in Serum or Plasma [2345-7] 08/23/2024 11:34 AM 109 mg/dL N Blood chemistry[[id number]] Glucose [Mass/volume] in Serum or Plasma [2345-7] 08/22/2024 05:06 PM 162 mg/dL N Blood chemistry[[id number]] Glucose [Mass/volume] in Serum or Plasma [2345-7] 08/22/2024 05:04 PM 162 mg/dL N Blood chemistry[[id number]] Glucose [Mass/volume] in Serum or Plasma [2345-7] 08/22/2024 03:08 PM 206 mg/dL N Blood chemistry[[id number]] Glucose [Mass/volume] in Serum or Plasma [2345-7] 08/22/2024 02:44 PM 156 mg/dL N Blood chemistry[[id number]] Glucose [Mass/volume] in Serum or Plasma [2345-7] 08/22/2024 01:19 PM 156 mg/dL N Blood chemistry[[id number]] Glucose [Mass/volume] in Serum or Plasma [2345-7] 08/22/2024 11:07 AM 171 mg/dL N Blood chemistry[[id number]] Glucose [Mass/volume] in Serum or Plasma [2345-7] 08/22/2024 10:47 AM 179 mg/dL N Blood chemistry[[id number]] Glucose [Mass/volume] in Serum or Plasma [2345-7] 08/21/2024 02:18 PM 225 mg/dL N Blood chemistry[[id number]] Glucose [Mass/volume] in Serum or Plasma [2345-7] 08/21/2024 03:12 PM 147 mg/dL N Blood chemistry[[id number]] Glucose [Mass/volume] in Serum or Plasma [2345-7] 08/21/2024 11:10 AM 104 mg/dL N Blood chemistry[[id number]] Glucose [Mass/volume] in Serum or Plasma [2345-7] 08/21/2024 11:03 AM 157 mg/dL N Blood chemistry[[id number]] Glucose [Mass/volume] in Serum or Plasma [2345-7] 08/21/2024 07:14 AM 230 mg/dL N Blood chemistry[[id number]] Glucose [Mass/volume] in Serum or Plasma [2345-7] 08/20/2024 12:54 PM 121 mg/dL N Blood chemistry[[id number]] Glucose [Mass/volume] in Serum or Plasma [2345-7] 08/20/2024 05:28 PM 82 mg/dL N Blood chemistry[[id number]] Glucose [Mass/volume] in Serum or Plasma [2345-7] 08/20/2024 03:00 PM 99 mg/dL N Blood chemistry[[id number]] Glucose [Mass/volume] in Serum or Plasma [2345-7] 08/20/2024 11:36 AM 77 mg/dL N Blood chemistry[[id number]] Glucose [Mass/volume] in Serum or Plasma [2345-7] 08/20/2024 11:04 AM 100 mg/dL N Blood chemistry[[id number]] Glucose [Mass/volume] in Serum or Plasma [2345-7] 08/19/2024 05:41 PM 121 mg/dL N Blood chemistry[[id number]] Glucose [Mass/volume] in Serum or Plasma [2345-7] 08/19/2024 01:49 PM 212 mg/dL N Blood chemistry[[id number]] Glucose [Mass/volume] in Serum or Plasma [2345-7] 08/19/2024 12:33 PM 301 mg/dL N Blood chemistry[[id number]] Glucose [Mass/volume] in Serum or Plasma [2345-7] 08/19/2024 09:34 AM 183 mg/dL N Blood chemistry[[id number]] Glucose [Mass/volume] in Serum or Plasma [2345-7] 08/18/2024 12:47 PM 164 mg/dL N Blood chemistry[[id number]] Glucose [Mass/volume] in Serum or Plasma [2345-7] 08/18/2024 05:31 PM 92 mg/dL N Blood chemistry[[id number]] Glucose [Mass/volume] in Serum or Plasma [2345-7] 08/18/2024 01:20 PM 70 mg/dL N Blood chemistry[[id number]] Glucose [Mass/volume] in Serum or Plasma [2345-7] 08/18/2024 10:00 AM 76 mg/dL N Blood chemistry[[id number]] Glucose [Mass/volume] in Serum or Plasma [2345-7] 08/17/2024 02:14 PM 90 mg/dL N Blood chemistry[[id number]] Glucose [Mass/volume] in Serum or Plasma [2345-7] 08/17/2024 01:43 PM 68 mg/dL N Blood chemistry[[id number]] Glucose [Mass/volume] in Serum or Plasma [2345-7] 08/17/2024 10:56 AM 71 mg/dL N Blood chemistry[[id number]] Glucose [Mass/volume] in Serum or Plasma [2345-7] 08/17/2024 07:27 AM 127 mg/dL N Blood chemistry[[id number]] Glucose [Mass/volume] in Serum or Plasma [2345-7] 08/17/2024 07:26 AM 127 mg/dL N Blood chemistry[[id number]] Glucose [Mass/volume] in Serum or Plasma [2345-7] 08/16/2024 01:53 PM 206 mg/dL N Blood chemistry[[id number]] Glucose [Mass/volume] in Serum or Plasma [2345-7] 08/16/2024 10:31 AM 97 mg/dL N Blood chemistry[[id number]] Glucose [Mass/volume] in Serum or Plasma [2345-7] 08/16/2024 05:26 PM 214 mg/dL N Blood chemistry[[id number]] Glucose [Mass/volume] in Serum or Plasma [2345-7] 08/16/2024 01:04 PM 86 mg/dL N Blood chemistry[[id number]] Glucose [Mass/volume] in Serum or Plasma [2345-7] 08/15/2024 01:26 PM 267 mg/dL N Blood chemistry[[id number]] Glucose [Mass/volume] in Serum or Plasma [2345-7] 08/15/2024 06:00 PM 272 mg/dL N Blood chemistry[[id number]] Glucose [Mass/volume] in Serum or Plasma [2345-7] 08/15/2024 02:33 PM 193 mg/dL N Blood chemistry[[id number]] Glucose [Mass/volume] in Serum or Plasma [2345-7] 08/15/2024 11:16 AM 171 mg/dL N Blood chemistry[[id number]] Glucose [Mass/volume] in Serum or Plasma [2345-7] 08/15/2024 10:28 AM 178 mg/dL N Blood chemistry[[id number]] Glucose [Mass/volume] in Serum or Plasma [2345-7] 08/14/2024 12:42 PM 208 mg/dL N Blood chemistry[[id number]] Glucose [Mass/volume] in Serum or Plasma [2345-7] 08/14/2024 02:02 PM 182 mg/dL N Blood chemistry[[id number]] Glucose [Mass/volume] in Serum or Plasma [2345-7] 08/14/2024 02:01 PM 184 mg/dL N Blood chemistry[[id number]] Glucose [Mass/volume] in Serum or Plasma [2345-7] 08/14/2024 11:08 AM 175 mg/dL N Blood chemistry[[id number]] Glucose [Mass/volume] in Serum or Plasma [2345-7] 08/14/2024 09:22 AM 191 mg/dL N Blood chemistry[[id number]] Glucose [Mass/volume] in Serum or Plasma [2345-7] 08/13/2024 12:55 PM 222 mg/dL N Blood chemistry[[id number]] Glucose [Mass/volume] in Serum or Plasma [2345-7] 08/13/2024 01:33 PM 160 mg/dL N Blood chemistry[[id number]] Glucose [Mass/volume] in Serum or Plasma [2345-7] 08/13/2024 10:59 AM 137 mg/dL N Blood chemistry[[id number]] Glucose [Mass/volume] in Serum or Plasma [2345-7] 08/13/2024 10:41 AM 84 mg/dL N Glucose [Mass/volume] in Serum or Plasma [2345-7] 08/13/2024 10:41 AM 84 mg/dL N Blood chemistry[[id number]] Glucose [Mass/volume] in Serum or Plasma [2345-7] 08/13/2024 08:37 AM 91 mg/dL N Blood chemistry[[id number]] Glucose [Mass/volume] in Serum or Plasma [2345-7] 08/12/2024 06:08 PM 89 mg/dL N Blood chemistry[[id number]] Glucose [Mass/volume] in Serum or Plasma [2345-7] 08/12/2024 01:52 PM 113 mg/dL N Glucose [Mass/volume] in Serum or Plasma [2345-7] 08/12/2024 01:52 PM 113 mg/dL N Blood chemistry[[id number]] Glucose [Mass/volume] in Serum or Plasma [2345-7] 08/12/2024 12:37 PM 176 mg/dL N Blood chemistry[[id number]] Glucose [Mass/volume] in Serum or Plasma [2345-7] 08/12/2024 10:32 AM 88 mg/dL N Blood chemistry[[id number]] Glucose [Mass/volume] in Serum or Plasma [2345-7] 08/11/2024 01:18 PM 145 mg/dL N Blood chemistry[[id number]] Glucose [Mass/volume] in Serum or Plasma [2345-7] 08/11/2024 05:42 PM 89 mg/dL N Blood chemistry[[id number]] Glucose [Mass/volume] in Serum or Plasma [2345-7] 08/11/2024 01:41 PM 80 mg/dL N Blood chemistry[[id number]] Glucose [Mass/volume] in Serum or Plasma [2345-7] 08/11/2024 10:38 AM 100 mg/dL N Blood chemistry[[id number]] Glucose [Mass/volume] in Serum or Plasma [2345-7] 08/10/2024 03:11 PM 57 mg/dL N Blood chemistry[[id number]] Glucose [Mass/volume] in Serum or Plasma [2345-7] 08/10/2024 02:12 PM 237 mg/dL N Blood chemistry[[id number]] Glucose [Mass/volume] in Serum or Plasma [2345-7] 08/10/2024 10:57 AM 163 mg/dL N Blood chemistry[[id number]] Glucose [Mass/volume] in Serum or Plasma [2345-7] 08/10/2024 08:16 AM 108 mg/dL N Blood chemistry[[id number]] Glucose [Mass/volume] in Serum or Plasma [2345-7] 08/09/2024 02:04 PM 159 mg/dL N Blood chemistry[[id number]] Glucose [Mass/volume] in Serum or Plasma [2345-7] 08/09/2024 10:23 AM 110 mg/dL N Blood chemistry[[id number]] Glucose [Mass/volume] in Serum or Plasma [2345-7] 08/09/2024 06:36 PM 136 mg/dL N Blood chemistry[[id number]] Glucose [Mass/volume] in Serum or Plasma [2345-7] 08/09/2024 01:12 PM 119 mg/dL N Blood chemistry[[id number]] Glucose [Mass/volume] in Serum or Plasma [2345-7] 08/08/2024 01:44 PM 41 mg/dL N Blood chemistry[[id number]] Glucose [Mass/volume] in Serum or Plasma [2345-7] 08/08/2024 04:46 PM 132 mg/dL N Blood chemistry[[id number]] Glucose [Mass/volume] in Serum or Plasma [2345-7] 08/08/2024 03:15 PM 116 mg/dL N Blood chemistry[[id number]] Glucose [Mass/volume] in Serum or Plasma [2345-7] 08/08/2024 10:52 AM 176 mg/dL N Blood chemistry[[id number]] Glucose [Mass/volume] in Serum or Plasma [2345-7] 08/07/2024 02:55 PM 246 mg/dL N Blood chemistry[[id number]] Glucose [Mass/volume] in Serum or Plasma [2345-7] 08/07/2024 05:21 PM 241 mg/dL N Blood chemistry[[id number]] Glucose [Mass/volume] in Serum or Plasma [2345-7] 08/07/2024 01:58 PM 186 mg/dL N Blood chemistry[[id number]] Glucose [Mass/volume] in Serum or Plasma [2345-7] 08/07/2024 10:35 AM 191 mg/dL N Blood chemistry[[id number]] Glucose [Mass/volume] in Serum or Plasma [2345-7] 08/07/2024 10:24 AM 219 mg/dL N Blood chemistry[[id number]] Glucose [Mass/volume] in Serum or Plasma [2345-7] 08/06/2024 12:37 PM 210 mg/dL N Blood chemistry[[id number]] Glucose [Mass/volume] in Serum or Plasma [2345-7] 08/06/2024 12:12 PM 157 mg/dL N Blood chemistry[[id number]] Glucose [Mass/volume] in Serum or Plasma [2345-7] 08/06/2024 06:41 PM 165 mg/dL N Blood chemistry[[id number]] Glucose [Mass/volume] in Serum or Plasma [2345-7] 08/06/2024 02:09 PM 174 mg/dL N Blood chemistry[[id number]] Glucose [Mass/volume] in Serum or Plasma [2345-7] 08/06/2024 11:06 AM 183 mg/dL N Blood chemistry[[id number]] Glucose [Mass/volume] in Serum or Plasma [2345-7] 08/05/2024 12:55 PM 171 mg/dL N Blood chemistry[[id number]] Glucose [Mass/volume] in Serum or Plasma [2345-7] 08/05/2024 05:44 PM 165 mg/dL N Blood chemistry[[id number]] Glucose [Mass/volume] in Serum or Plasma [2345-7] 08/05/2024 01:13 PM 151 mg/dL N Blood chemistry[[id number]] Glucose [Mass/volume] in Serum or Plasma [2345-7] 08/05/2024 11:07 AM 166 mg/dL N Blood chemistry[[id number]] Glucose [Mass/volume] in Serum or Plasma [2345-7] 08/05/2024 10:53 AM 191 mg/dL N Blood chemistry[[id number]] Glucose [Mass/volume] in Serum or Plasma [2345-7] 08/04/2024 01:01 PM 195 mg/dL N Blood chemistry[[id number]] Glucose [Mass/volume] in Serum or Plasma [2345-7] 08/04/2024 05:59 PM 93 mg/dL N Blood chemistry[[id number]] Glucose [Mass/volume] in Serum or Plasma [2345-7] 08/04/2024 01:45 PM 56 mg/dL N Blood chemistry[[id number]] Glucose [Mass/volume] in Serum or Plasma [2345-7] 08/04/2024 01:41 PM 56 mg/dL N Blood chemistry[[id number]] Glucose [Mass/volume] in Serum or Plasma [2345-7] 08/04/2024 11:12 AM 141 mg/dL N Glucose [Mass/volume] in Serum or Plasma [2345-7] 08/04/2024 11:12 AM 141 mg/dL N Blood chemistry[[id number]] Glucose [Mass/volume] in Serum or Plasma [2345-7] 08/03/2024 03:45 PM 144 mg/dL N Blood chemistry[[id number]] Glucose [Mass/volume] in Serum or Plasma [2345-7] 08/03/2024 02:40 PM 109 mg/dL N Blood chemistry[[id number]] Glucose [Mass/volume] in Serum or Plasma [2345-7] 08/03/2024 12:28 PM 106 mg/dL N Blood chemistry[[id number]] Glucose [Mass/volume] in Serum or Plasma [2345-7] 08/03/2024 08:59 AM 89 mg/dL N Blood chemistry[[id number]] Glucose [Mass/volume] in Serum or Plasma [2345-7] 08/03/2024 10:56 AM 109 mg/dL N Blood chemistry[[id number]] Glucose [Mass/volume] in Serum or Plasma [2345-7] 08/02/2024 01:24 PM 223 mg/dL N Blood chemistry[[id number]] Glucose [Mass/volume] in Serum or Plasma [2345-7] 08/02/2024 12:31 PM 200 mg/dL N Glucose [Mass/volume] in Serum or Plasma [2345-7] 08/02/2024 12:31 PM 200 mg/dL N Glucose [Mass/volume] in Serum or Plasma [2345-7] 08/02/2024 12:31 PM 207 mg/dL N Blood chemistry[[id number]] Glucose [Mass/volume] in Serum or Plasma [2345-7] 08/02/2024 04:11 PM 176 mg/dL N Blood chemistry[[id number]] Glucose [Mass/volume] in Serum or Plasma [2345-7] 08/02/2024 04:08 PM 176 mg/dL N Blood chemistry[[id number]] Glucose [Mass/volume] in Serum or Plasma [2345-7] 08/01/2024 01:00 PM 264 mg/dL N Blood chemistry[[id number]] Glucose [Mass/volume] in Serum or Plasma [2345-7] 08/01/2024 03:59 PM 168 mg/dL N Blood chemistry[[id number]] Glucose [Mass/volume] in Serum or Plasma [2345-7] 08/01/2024 10:49 AM 213 mg/dL N Blood chemistry[[id number]] Glucose [Mass/volume] in Serum or Plasma [2345-7] 08/01/2024 09:39 AM 198 mg/dL N Blood chemistry[[id number]] Glucose [Mass/volume] in Serum or Plasma [2345-7] 07/31/2024 05:02 PM 122 mg/dL N Blood chemistry[[id number]] Glucose [Mass/volume] in Serum or Plasma [2345-7] 07/31/2024 01:33 PM 161 mg/dL N Blood chemistry[[id number]] Glucose [Mass/volume] in Serum or Plasma [2345-7] 07/31/2024 12:30 PM 183 mg/dL N Blood chemistry[[id number]] Glucose [Mass/volume] in Serum or Plasma [2345-7] 07/31/2024 10:28 AM 197 mg/dL N Blood chemistry[[id number]] Glucose [Mass/volume] in Serum or Plasma [2345-7] 07/31/2024 11:19 AM 163 mg/dL N Blood chemistry[[id number]] Glucose [Mass/volume] in Serum or Plasma [2345-7] 07/30/2024 01:19 PM 191 mg/dL N Blood chemistry[[id number]] Glucose [Mass/volume] in Serum or Plasma [2345-7] 07/30/2024 10:08 AM 90 mg/dL N Blood chemistry[[id number]] Glucose [Mass/volume] in Serum or Plasma [2345-7] 07/30/2024 05:05 PM 94 mg/dL N Glucose [Mass/volume] in Serum or Plasma [2345-7] 07/30/2024 05:05 PM 94 mg/dL N Blood chemistry[[id number]] Glucose [Mass/volume] in Serum or Plasma [2345-7] 07/30/2024 01:33 PM 80 mg/dL N Blood chemistry[[id number]] Glucose [Mass/volume] in Serum or Plasma [2345-7] 07/30/2024 11:03 AM 90 mg/dL N Blood chemistry[[id number]] Glucose [Mass/volume] in Serum or Plasma [2345-7] 07/29/2024 12:28 PM 221 mg/dL N Blood chemistry[[id number]] Glucose [Mass/volume] in Serum or Plasma [2345-7] 07/29/2024 02:55 PM 65 mg/dL N Blood chemistry[[id number]] Glucose [Mass/volume] in Serum or Plasma [2345-7] 07/29/2024 11:09 AM 176 mg/dL N Glucose [Mass/volume] in Serum or Plasma [2345-7] 07/29/2024 11:09 AM 71 mg/dL N Blood chemistry[[id number]] Glucose [Mass/volume] in Serum or Plasma [2345-7] 07/29/2024 08:05 AM 171 mg/dL N Blood chemistry[[id number]] Glucose [Mass/volume] in Serum or Plasma [2345-7] 07/28/2024 12:42 PM 277 mg/dL N Blood chemistry[[id number]] Glucose [Mass/volume] in Serum or Plasma [2345-7] 07/28/2024 05:42 PM 118 mg/dL N Blood chemistry[[id number]] Glucose [Mass/volume] in Serum or Plasma [2345-7] 07/28/2024 01:43 PM 111 mg/dL N Blood chemistry[[id number]] Glucose [Mass/volume] in Serum or Plasma [2345-7] 07/28/2024 10:17 AM 150 mg/dL N Blood chemistry[[id number]] Glucose [Mass/volume] in Serum or Plasma [2345-7] 07/27/2024 05:34 PM 126 mg/dL N Blood chemistry[[id number]] Glucose [Mass/volume] in Serum or Plasma [2345-7] 07/27/2024 02:49 PM 98 mg/dL N Blood chemistry[[id number]] Glucose [Mass/volume] in Serum or Plasma [2345-7] 07/27/2024 02:47 PM 260 mg/dL N Blood chemistry[[id number]] Glucose [Mass/volume] in Serum or Plasma [2345-7] 07/27/2024 10:35 AM 182 mg/dL N Blood chemistry[[id number]] Glucose [Mass/volume] in Serum or Plasma [2345-7] 07/26/2024 01:40 PM 288 mg/dL N Glucose [Mass/volume] in Serum or Plasma [2345-7] 07/26/2024 01:40 PM 211 mg/dL N Blood chemistry[[id number]] Glucose [Mass/volume] in Serum or Plasma [2345-7] 07/26/2024 09:53 AM 189 mg/dL N Blood chemistry[[id number]] Glucose [Mass/volume] in Serum or Plasma [2345-7] 07/26/2024 05:37 PM 258 mg/dL N Blood chemistry[[id number]] Glucose [Mass/volume] in Serum or Plasma [2345-7] 07/25/2024 06:26 PM 217 mg/dL N Blood chemistry[[id number]] Glucose [Mass/volume] in Serum or Plasma [2345-7] 07/25/2024 04:10 PM 249 mg/dL N Blood chemistry[[id number]] Glucose [Mass/volume] in Serum or Plasma [2345-7] 07/25/2024 12:35 PM 244 mg/dL N Blood chemistry[[id number]] Glucose [Mass/volume] in Serum or Plasma [2345-7] 07/25/2024 11:17 AM 177 mg/dL N Blood chemistry[[id number]] Glucose [Mass/volume] in Serum or Plasma [2345-7] 07/24/2024 12:38 PM 204 mg/dL N Blood chemistry[[id number]] Glucose [Mass/volume] in Serum or Plasma [2345-7] 07/24/2024 10:36 AM 216 mg/dL N Blood chemistry[[id number]] Glucose [Mass/volume] in Serum or Plasma [2345-7] 07/24/2024 07:55 AM 154 mg/dL N Blood chemistry[[id number]] Glucose [Mass/volume] in Serum or Plasma [2345-7] 07/24/2024 02:28 PM 151 mg/dL N Blood chemistry[[id number]] Glucose [Mass/volume] in Serum or Plasma [2345-7] 07/24/2024 11:08 AM 158 mg/dL N Blood chemistry[[id number]] Glucose [Mass/volume] in Serum or Plasma [2345-7] 07/23/2024 05:27 PM 167 mg/dL N Blood chemistry[[id number]] Glucose [Mass/volume] in Serum or Plasma [2345-7] 07/23/2024 01:07 PM 218 mg/dL N Blood chemistry[] Glucose [Mass/volume] in Serum or Plasma [2345-7] 07/23/2024 10:31 AM 97 mg/dL N Blood chemistry[[id number]] Glucose [Mass/volume] in Serum or Plasma [2345-7] 07/23/2024 01:45 PM 134 mg/dL N Blood chemistry[[id number]] Glucose [Mass/volume] in Serum or Plasma [2345-7] 07/23/2024 11:12 AM 135 mg/dL N Blood chemistry[[id number]] Glucose [Mass/volume] in Serum or Plasma [2345-7] 07/22/2024 05:29 PM 97 mg/dL N Glucose [Mass/volume] in Serum or Plasma [2345-7] 07/22/2024 05:29 PM 97 mg/dL N Blood chemistry[[id number]] Glucose [Mass/volume] in Serum or Plasma [2345-7] 07/22/2024 12:44 PM 232 mg/dL N Blood chemistry[[id number]] Glucose [Mass/volume] in Serum or Plasma [2345-7] 07/22/2024 10:46 AM 130 mg/dL N Blood chemistry[[id number]] Glucose [Mass/volume] in Serum or Plasma [2345-7] 07/22/2024 01:47 PM 123 mg/dL N Blood chemistry[[id number]] Glucose [Mass/volume] in Serum or Plasma [2345-7] 07/21/2024 06:12 PM 240 mg/dL N Blood chemistry[[id number]] Glucose [Mass/volume] in Serum or Plasma [2345-7] 07/21/2024 03:30 PM 189 mg/dL N Blood chemistry[[id number]] Glucose [Mass/volume] in Serum or Plasma [2345-7] 07/21/2024 01:58 PM 187 mg/dL N Blood chemistry[[id number]] Glucose [Mass/volume] in Serum or Plasma [2345-7] 07/21/2024 10:13 AM 237 mg/dL N Glucose [Mass/volume] in Serum or Plasma [2345-7] 07/21/2024 10:13 AM 237 mg/dL N Blood chemistry[[id number]] Glucose [Mass/volume] in Serum or Plasma [2345-7] 07/20/2024 04:40 PM 188 mg/dL N Blood chemistry[[id number]] Glucose [Mass/volume] in Serum or Plasma [2345-7] 07/20/2024 12:06 PM 156 mg/dL N Blood chemistry[[id number]] Glucose [Mass/volume] in Serum or Plasma [2345-7] 07/20/2024 08:19 AM 208 mg/dL N Glucose [Mass/volume] in Serum or Plasma [2345-7] 07/20/2024 08:19 AM 208 mg/dL N Blood chemistry[[id number]] Glucose [Mass/volume] in Serum or Plasma [2345-7] 07/20/2024 08:18 AM 260 mg/dL N Blood chemistry[[id number]] Glucose [Mass/volume] in Serum or Plasma [2345-7] 07/19/2024 12:42 PM 232 mg/dL N Blood chemistry[[id number]] Glucose [Mass/volume] in Serum or Plasma [2345-7] 07/19/2024 08:26 AM 190 mg/dL N Blood chemistry[[id number]] Glucose [Mass/volume] in Serum or Plasma [2345-7] 07/19/2024 08:25 AM 190 mg/dL N Glucose [Mass/volume] in Serum or Plasma [2345-7] 07/19/2024 08:25 AM 160 mg/dL N Blood chemistry[[id number]] Glucose [Mass/volume] in Serum or Plasma [2345-7] 07/18/2024 05:17 PM 185 mg/dL N Blood chemistry[[id number]] Glucose [Mass/volume] in Serum or Plasma [2345-7] 07/18/2024 06:57 PM 177 mg/dL N Blood chemistry[[id number]] Glucose [Mass/volume] in Serum or Plasma [2345-7] 07/18/2024 04:45 PM 185 mg/dL N Blood chemistry[[id number]] Glucose [Mass/volume] in Serum or Plasma [2345-7] 07/18/2024 12:05 PM 240 mg/dL N Blood chemistry[[id number]] Glucose [Mass/volume] in Serum or Plasma [2345-7] 07/18/2024 11:08 AM 198 mg/dL N Blood chemistry[[id number]] Glucose [Mass/volume] in Serum or Plasma [2345-7] 07/17/2024 05:01 PM 277 mg/dL N Blood chemistry[[id number]] Glucose [Mass/volume] in Serum or Plasma [2345-7] 07/17/2024 02:12 PM 171 mg/dL N Blood chemistry[[id number]] Glucose [Mass/volume] in Serum or Plasma [2345-7] 07/17/2024 12:26 PM 248 mg/dL N Blood chemistry[[id number]] Glucose [Mass/volume] in Serum or Plasma [2345-7] 07/17/2024 10:27 AM 207 mg/dL N Blood chemistry[[id number]] Glucose [Mass/volume] in Serum or Plasma [2345-7] 07/17/2024 11:09 AM 172 mg/dL N Blood chemistry[[id number]] Glucose [Mass/volume] in Serum or Plasma [2345-7] 07/16/2024 12:31 PM 218 mg/dL N Blood chemistry[[id number]] Glucose [Mass/volume] in Serum or Plasma [2345-7] 07/16/2024 10:22 AM 145 mg/dL N Blood chemistry[[id number]] Glucose [Mass/volume] in Serum or Plasma [2345-7] 07/16/2024 03:36 PM 286 mg/dL N Blood chemistry[[id number]] Glucose [Mass/volume] in Serum or Plasma [2345-7] 07/16/2024 11:06 AM 148 mg/dL N Blood chemistry[[id number]] Glucose [Mass/volume] in Serum or Plasma [2345-7] 07/16/2024 07:01 AM 135 mg/dL N Blood chemistry[[id number]] Glucose [Mass/volume] in Serum or Plasma [2345-7] 07/15/2024 06:09 PM 267 mg/dL N Blood chemistry[[id number]] Glucose [Mass/volume] in Serum or Plasma [2345-7] 07/15/2024 01:39 PM 254 mg/dL N Blood chemistry[[id number]] Glucose [Mass/volume] in Serum or Plasma [2345-7] 07/15/2024 12:33 PM 177 mg/dL N Blood chemistry[[id number]] Glucose [Mass/volume] in Serum or Plasma [2345-7] 07/15/2024 11:07 AM 183 mg/dL N Blood chemistry[[id number]] Glucose [Mass/volume] in Serum or Plasma [2345-7] 07/15/2024 10:15 AM 200 mg/dL N Blood chemistry[[id number]] Glucose [Mass/volume] in Serum or Plasma [2345-7] 07/14/2024 05:04 PM 171 mg/dL N Blood chemistry[[id number]] Glucose [Mass/volume] in Serum or Plasma [2345-7] 07/14/2024 01:21 PM 268 mg/dL N Blood chemistry[[id number]] Glucose [Mass/volume] in Serum or Plasma [2345-7] 07/14/2024 12:54 PM 233 mg/dL N Blood chemistry[[id number]] Glucose [Mass/volume] in Serum or Plasma [2345-7] 07/14/2024 10:42 AM 242 mg/dL N Blood chemistry[[id number]] Glucose [Mass/volume] in Serum or Plasma [2345-7] 07/13/2024 05:05 PM 203 mg/dL N Blood chemistry[[id number]] Glucose [Mass/volume] in Serum or Plasma [2345-7] 07/13/2024 04:35 PM 345 mg/dL N Blood chemistry[[id number]] Glucose [Mass/volume] in Serum or Plasma [2345-7] 07/13/2024 02:12 PM 144 mg/dL N Blood chemistry[[id number]] Glucose [Mass/volume] in Serum or Plasma [2345-7] 07/13/2024 11:19 AM 209 mg/dL N Blood chemistry[[id number]] Glucose [Mass/volume] in Serum or Plasma [2345-7] 07/12/2024 05:36 PM 215 mg/dL N Blood chemistry[[id number]] Glucose [Mass/volume] in Serum or Plasma [2345-7] 07/12/2024 03:00 PM 198 mg/dL N Blood chemistry[[id number]] Glucose [Mass/volume] in Serum or Plasma [2345-7] 07/12/2024 01:36 PM 210 mg/dL N Blood chemistry[[id number]] Glucose [Mass/volume] in Serum or Plasma [2345-7] 07/12/2024 10:14 AM 232 mg/dL N Blood chemistry[[id number]] Glucose [Mass/volume] in Serum or Plasma [2345-7] 07/11/2024 05:19 PM 166 mg/dL N Blood chemistry[[id number]] Glucose [Mass/volume] in Serum or Plasma [2345-7] 07/11/2024 03:17 PM 210 mg/dL N Blood chemistry[[id number]] Glucose [Mass/volume] in Serum or Plasma [2345-7] 07/11/2024 02:29 PM 111 mg/dL N Blood chemistry[[id number]] Glucose [Mass/volume] in Serum or Plasma [2345-7] 07/11/2024 11:36 AM 164 mg/dL N Blood chemistry[[id number]] Glucose [Mass/volume] in Serum or Plasma [2345-7] 07/10/2024 04:54 PM 206 mg/dL N Blood chemistry[[id number]] Glucose [Mass/volume] in Serum or Plasma [2345-7] 07/10/2024 02:01 PM 148 mg/dL N Blood chemistry[[id number]] Glucose [Mass/volume] in Serum or Plasma [2345-7] 07/10/2024 12:59 PM 280 mg/dL N Blood chemistry[[id number]] Glucose [Mass/volume] in Serum or Plasma [2345-7] 07/10/2024 11:02 AM 208 mg/dL N Blood chemistry[[id number]] Glucose [Mass/volume] in Serum or Plasma [2345-7] 07/09/2024 05:50 PM 195 mg/dL N Blood chemistry[[id number]] Glucose [Mass/volume] in Serum or Plasma [2345-7] 07/09/2024 03:54 PM 134 mg/dL N Blood chemistry[[id number]] Glucose [Mass/volume] in Serum or Plasma [2345-7] 07/09/2024 12:26 PM 265 mg/dL N Blood chemistry[[id number]] Glucose [Mass/volume] in Serum or Plasma [2345-7] 07/09/2024 11:10 AM 178 mg/dL N Blood chemistry[[id number]] Glucose [Mass/volume] in Serum or Plasma [2345-7] 07/08/2024 04:50 PM 211 mg/dL N Blood chemistry[[id number]] Glucose [Mass/volume] in Serum or Plasma [2345-7] 07/08/2024 01:50 PM 109 mg/dL N Blood chemistry[[id number]] Glucose [Mass/volume] in Serum or Plasma [2345-7] 07/08/2024 01:09 PM 193 mg/dL N Blood chemistry[[id number]] Glucose [Mass/volume] in Serum or Plasma [2345-7] 07/08/2024 09:11 AM 171 mg/dL N Blood chemistry[[id number]] Glucose [Mass/volume] in Serum or Plasma [2345-7] 07/07/2024 03:11 PM 217 mg/dL N Blood chemistry[[id number]] Glucose [Mass/volume] in Serum or Plasma [2345-7] 07/07/2024 02:23 PM 238 mg/dL N Blood chemistry[[id number]] Glucose [Mass/volume] in Serum or Plasma [2345-7] 07/07/2024 01:51 PM 217 mg/dL N Blood chemistry[[id number]] Glucose [Mass/volume] in Serum or Plasma [2345-7] 07/07/2024 10:58 AM 175 mg/dL N Blood chemistry[[id number]] Glucose [Mass/volume] in Serum or Plasma [2345-7] 07/07/2024 07:14 AM 290 mg/dL N Blood chemistry[[id number]] Glucose [Mass/volume] in Serum or Plasma [2345-7] 07/06/2024 02:29 PM 235 mg/dL N Blood chemistry[[id number]] Glucose [Mass/volume] in Serum or Plasma [2345-7] 07/06/2024 10:39 AM 247 mg/dL N Blood chemistry[[id number]] Glucose [Mass/volume] in Serum or Plasma [2345-7] 07/06/2024 07:41 AM 187 mg/dL N Blood chemistry[[id number]] Glucose [Mass/volume] in Serum or Plasma [2345-7] 07/06/2024 07:39 AM 187 mg/dL N Glucose [Mass/volume] in Serum or Plasma [2345-7] 07/06/2024 07:39 AM 164 mg/dL N Blood chemistry[[id number]] Glucose [Mass/volume] in Serum or Plasma [2345-7] 07/05/2024 05:09 PM 169 mg/dL N Blood chemistry[[id number]] Glucose [Mass/volume] in Serum or Plasma [2345-7] 07/05/2024 02:02 PM 354 mg/dL N Blood chemistry[[id number]] Glucose [Mass/volume] in Serum or Plasma [2345-7] 07/05/2024 11:43 AM 187 mg/dL N Blood chemistry[[id number]] Glucose [Mass/volume] in Serum or Plasma [2345-7] 07/05/2024 10:16 AM 161 mg/dL N Blood chemistry[[id number]] Glucose [Mass/volume] in Serum or Plasma [2345-7] 07/04/2024 04:04 PM 200 mg/dL N Blood chemistry[[id number]] Glucose [Mass/volume] in Serum or Plasma [2345-7] 07/04/2024 02:33 PM 176 mg/dL N Blood chemistry[[id number]] Glucose [Mass/volume] in Serum or Plasma [2345-7] 07/04/2024 12:11 PM 179 mg/dL N Blood chemistry[[id number]] Glucose [Mass/volume] in Serum or Plasma [2345-7] 07/04/2024 11:11 AM 193 mg/dL N Blood chemistry[[id number]] Glucose [Mass/volume] in Serum or Plasma [2345-7] 07/04/2024 08:24 AM 227 mg/dL N Blood chemistry[[id number]] Glucose [Mass/volume] in Serum or Plasma [2345-7] 07/03/2024 05:20 PM 193 mg/dL N Blood chemistry[[id number]] Glucose [Mass/volume] in Serum or Plasma [2345-7] 07/03/2024 02:25 PM 153 mg/dL N Blood chemistry[[id number]] Glucose [Mass/volume] in Serum or Plasma [2345-7] 07/03/2024 12:43 PM 257 mg/dL N Blood chemistry[[id number]] Glucose [Mass/volume] in Serum or Plasma [2345-7] 07/03/2024 11:01 AM 167 mg/dL N Blood chemistry[[id number]] Glucose [Mass/volume] in Serum or Plasma [2345-7] 07/03/2024 10:50 AM 194 mg/dL N Blood chemistry[[id number]] Glucose [Mass/volume] in Serum or Plasma [2345-7] 07/02/2024 05:12 PM 216 mg/dL N Blood chemistry[[id number]] Glucose [Mass/volume] in Serum or Plasma [2345-7] 07/02/2024 02:00 PM 169 mg/dL N Blood chemistry[[id number]] Glucose [Mass/volume] in Serum or Plasma [2345-7] 07/02/2024 12:36 PM 258 mg/dL N Blood chemistry[[id number]] Glucose [Mass/volume] in Serum or Plasma [2345-7] 07/02/2024 10:57 AM 154 mg/dL N Blood chemistry[[id number]] Glucose [Mass/volume] in Serum or Plasma [2345-7] 07/02/2024 10:31 AM 202 mg/dL N Blood chemistry[[id number]] Glucose [Mass/volume] in Serum or Plasma [2345-7] 07/01/2024 03:43 PM 173 mg/dL N Blood chemistry[[id number]] Glucose [Mass/volume] in Serum or Plasma [2345-7] 07/01/2024 12:41 PM 173 mg/dL N Blood chemistry[[id number]] Glucose [Mass/volume] in Serum or Plasma [2345-7] 07/01/2024 11:25 AM 239 mg/dL N Blood chemistry[[id number]] Glucose [Mass/volume] in Serum or Plasma [2345-7] 07/01/2024 10:57 AM 182 mg/dL N Blood chemistry[[id number]] Glucose [Mass/volume] in Serum or Plasma [2345-7] 07/01/2024 08:12 AM 184 mg/dL N Blood chemistry[[id number]] Glucose [Mass/volume] in Serum or Plasma [2345-7] 06/30/2024 05:16 PM 156 mg/dL N Blood chemistry[[id number]] Glucose [Mass/volume] in Serum or Plasma [2345-7] 06/30/2024 01:02 PM 107 mg/dL N Blood chemistry[[id number]] Glucose [Mass/volume] in Serum or Plasma [2345-7] 06/30/2024 12:30 PM 197 mg/dL N Blood chemistry[[id number]] Glucose [Mass/volume] in Serum or Plasma [2345-7] 06/30/2024 10:37 AM 180 mg/dL N Blood chemistry[[id number]] Glucose [Mass/volume] in Serum or Plasma [2345-7] 06/29/2024 05:19 PM 180 mg/dL N Blood chemistry[[id number]] Glucose [Mass/volume] in Serum or Plasma [2345-7] 06/29/2024 04:44 PM 158 mg/dL N Blood chemistry[[id number]] Glucose [Mass/volume] in Serum or Plasma [2345-7] 06/29/2024 02:03 PM 72 mg/dL N Blood chemistry[[id number]] Glucose [Mass/volume] in Serum or Plasma [2345-7] 06/29/2024 11:13 AM 102 mg/dL N Blood chemistry[[id number]] Glucose [Mass/volume] in Serum or Plasma [2345-7] 06/29/2024 10:35 AM 133 mg/dL N Blood chemistry[[id number]] Glucose [Mass/volume] in Serum or Plasma [2345-7] 06/28/2024 04:55 PM 94 mg/dL N Blood chemistry[[id number]] Glucose [Mass/volume] in Serum or Plasma [2345-7] 06/28/2024 12:50 PM 192 mg/dL N Blood chemistry[[id number]] Glucose [Mass/volume] in Serum or Plasma [2345-7] 06/28/2024 12:36 PM 83 mg/dL N Blood chemistry[[id number]] Glucose [Mass/volume] in Serum or Plasma [2345-7] 06/28/2024 11:05 AM 100 mg/dL N Blood chemistry[[id number]] Glucose [Mass/volume] in Serum or Plasma [2345-7] 06/28/2024 09:58 AM 176 mg/dL N Blood chemistry[[id number]] Glucose [Mass/volume] in Serum or Plasma [2345-7] 06/27/2024 05:29 PM 197 mg/dL N Blood chemistry[[id number]] Glucose [Mass/volume] in Serum or Plasma [2345-7] 06/27/2024 12:35 PM 311 mg/dL N Blood chemistry[[id number]] Glucose [Mass/volume] in Serum or Plasma [2345-7] 06/27/2024 12:25 PM 264 mg/dL N Blood chemistry[[id number]] Glucose [Mass/volume] in Serum or Plasma [2345-7] 06/27/2024 12:01 PM 318 mg/dL N Blood chemistry[[id number]] Glucose [Mass/volume] in Serum or Plasma [2345-7] 06/27/2024 11:20 AM 270 mg/dL N Blood chemistry[[id number]] Glucose [Mass/volume] in Serum or Plasma [2345-7] 06/26/2024 04:33 PM 189 mg/dL N Blood chemistry[[id number]] Glucose [Mass/volume] in Serum or Plasma [2345-7] 06/26/2024 01:04 PM 193 mg/dL N Blood chemistry[[id number]] Glucose [Mass/volume] in Serum or Plasma [2345-7] 06/26/2024 12:23 PM 318 mg/dL N Blood chemistry[[id number]] Glucose [Mass/volume] in Serum or Plasma [2345-7] 06/26/2024 10:19 AM 287 mg/dL N COVID-19 Test Viral Antigen null flavor [null] 06/25/2024 05:23 PM See note NEG COVID-19 Test Viral Antigen Blood chemistry[[id number]] Glucose [Mass/volume] in Serum or Plasma [2345-7] 06/25/2024 03:19 PM 133 mg/dL N COVID-19 Test Viral Antigen null flavor [null] 06/25/2024 02:49 PM See note NEG COVID-19 Test Viral Antigen Blood chemistry[[id number]] Glucose [Mass/volume] in Serum or Plasma [2345-7] 06/25/2024 12:25 PM 319 mg/dL N Blood chemistry[[id number]] Glucose [Mass/volume] in Serum or Plasma [2345-7] 06/25/2024 11:25 AM 151 mg/dL N Blood chemistry[[id number]] Glucose [Mass/volume] in Serum or Plasma [2345-7] 06/25/2024 09:48 AM 213 mg/dL N Blood chemistry[[id number]] Glucose [Mass/volume] in Serum or Plasma [2345-7] 06/24/2024 05:29 PM 137 mg/dL N Blood chemistry[[id number]] Glucose [Mass/volume] in Serum or Plasma [2345-7] 06/24/2024 01:21 PM 81 mg/dL N Blood chemistry[[id number]] Glucose [Mass/volume] in Serum or Plasma [2345-7] 06/24/2024 12:24 PM 193 mg/dL N Blood chemistry[[id number]] Glucose [Mass/volume] in Serum or Plasma [2345-7] 06/24/2024 10:22 AM 286 mg/dL N Blood chemistry[[id number]] Glucose [Mass/volume] in Serum or Plasma [2345-7] 06/23/2024 05:57 PM 244 mg/dL N Blood chemistry[[id number]] Glucose [Mass/volume] in Serum or Plasma [2345-7] 06/23/2024 03:30 PM 170 mg/dL N Blood chemistry[[id number]] Glucose [Mass/volume] in Serum or Plasma [2345-7] 06/23/2024 01:11 PM 178 mg/dL N Blood chemistry[[id number]] Glucose [Mass/volume] in Serum or Plasma [2345-7] 06/23/2024 11:40 AM 135 mg/dL N Glucose [Mass/volume] in Serum or Plasma [2345-7] 06/23/2024 11:40 AM 108 mg/dL N Blood chemistry[[id number]] Glucose [Mass/volume] in Serum or Plasma [2345-7] 06/23/2024 11:15 AM 65 mg/dL N Blood chemistry[[id number]] Glucose [Mass/volume] in Serum or Plasma [2345-7] 06/22/2024 05:45 PM 69 mg/dL N Blood chemistry[[id number]] Glucose [Mass/volume] in Serum or Plasma [2345-7] 06/22/2024 01:36 PM 270 mg/dL N Blood chemistry[[id number]] Glucose [Mass/volume] in Serum or Plasma [2345-7] 06/22/2024 01:22 PM 81 mg/dL N Blood chemistry[[id number]] Glucose [Mass/volume] in Serum or Plasma [2345-7] 06/22/2024 11:36 AM 130 mg/dL N Blood chemistry[[id number]] Glucose [Mass/volume] in Serum or Plasma [2345-7] 06/22/2024 11:08 AM 101 mg/dL N Blood chemistry[[id number]] Glucose [Mass/volume] in Serum or Plasma [2345-7] 06/21/2024 05:57 PM 61 mg/dL N Blood chemistry[[id number]] Glucose [Mass/volume] in Serum or Plasma [2345-7] 06/21/2024 01:10 PM 73 mg/dL N Blood chemistry[[id number]] Glucose [Mass/volume] in Serum or Plasma [2345-7] 06/21/2024 01:06 PM 233 mg/dL N Blood chemistry[[id number]] Glucose [Mass/volume] in Serum or Plasma [2345-7] 06/21/2024 10:42 AM 186 mg/dL N Blood chemistry[[id number]] Glucose [Mass/volume] in Serum or Plasma [2345-7] 06/20/2024 06:44 PM 81 mg/dL N Blood chemistry[[id number]] Glucose [Mass/volume] in Serum or Plasma [2345-7] 06/20/2024 03:04 PM 140 mg/dL N Blood chemistry[[id number]] Glucose [Mass/volume] in Serum or Plasma [2345-7] 06/20/2024 02:34 PM 65 mg/dL N Blood chemistry[[id number]] Glucose [Mass/volume] in Serum or Plasma [2345-7] 06/20/2024 11:04 AM 90 mg/dL N Blood chemistry[[id number]] Glucose [Mass/volume] in Serum or Plasma [2345-7] 06/20/2024 11:03 AM 178 mg/dL N Blood chemistry[[id number]] Glucose [Mass/volume] in Serum or Plasma [2345-7] 06/19/2024 04:58 PM 129 mg/dL N Blood chemistry[[id number]] Glucose [Mass/volume] in Serum or Plasma [2345-7] 06/19/2024 01:27 PM 93 mg/dL N Blood chemistry[[id number]] Glucose [Mass/volume] in Serum or Plasma [2345-7] 06/19/2024 12:33 PM 323 mg/dL N Blood chemistry[[id number]] Glucose [Mass/volume] in Serum or Plasma [2345-7] 06/19/2024 11:32 AM 66 mg/dL N Blood chemistry[[id number]] Glucose [Mass/volume] in Serum or Plasma [2345-7] 06/19/2024 10:29 AM 103 mg/dL N Blood chemistry[[id number]] Glucose [Mass/volume] in Serum or Plasma [2345-7] 06/18/2024 05:24 PM 139 mg/dL N Blood chemistry[[id number]] Glucose [Mass/volume] in Serum or Plasma [2345-7] 06/18/2024 01:43 PM 89 mg/dL N Blood chemistry[[id number]] Glucose [Mass/volume] in Serum or Plasma [2345-7] 06/18/2024 12:36 PM 225 mg/dL N Blood chemistry[[id number]] Glucose [Mass/volume] in Serum or Plasma [2345-7] 06/18/2024 11:10 AM 74 mg/dL N Blood chemistry[[id number]] Glucose [Mass/volume] in Serum or Plasma [2345-7] 06/18/2024 11:08 AM 206 mg/dL N Blood chemistry[[id number]] Glucose [Mass/volume] in Serum or Plasma [2345-7] 06/17/2024 05:12 PM 201 mg/dL N Blood chemistry[[id number]] Glucose [Mass/volume] in Serum or Plasma [2345-7] 06/17/2024 01:05 PM 118 mg/dL N Blood chemistry[[id number]] Glucose [Mass/volume] in Serum or Plasma [2345-7] 06/17/2024 12:52 PM 116 mg/dL N Blood chemistry[[id number]] Glucose [Mass/volume] in Serum or Plasma [2345-7] 06/17/2024 11:26 AM 66 mg/dL N Blood chemistry[[id number]] Glucose [Mass/volume] in Serum or Plasma [2345-7] 06/17/2024 09:34 AM 63 mg/dL N Blood chemistry[[id number]] Glucose [Mass/volume] in Serum or Plasma [2345-7] 06/16/2024 01:44 PM 144 mg/dL N Blood chemistry[[id number]] Glucose [Mass/volume] in Serum or Plasma [2345-7] 06/16/2024 01:40 PM 252 mg/dL N Blood chemistry[[id number]] Glucose [Mass/volume] in Serum or Plasma [2345-7] 06/16/2024 11:21 AM 62 mg/dL N Blood chemistry[[id number]] Glucose [Mass/volume] in Serum or Plasma [2345-7] 06/16/2024 09:13 AM 167 mg/dL N Blood chemistry[[id number]] Glucose [Mass/volume] in Serum or Plasma [2345-7] 06/15/2024 05:33 PM 101 mg/dL N Blood chemistry[[id number]] Glucose [Mass/volume] in Serum or Plasma [2345-7] 06/15/2024 02:14 PM 121 mg/dL N Blood chemistry[[id number]] Glucose [Mass/volume] in Serum or Plasma [2345-7] 06/15/2024 01:48 PM 226 mg/dL N Blood chemistry[[id number]] Glucose [Mass/volume] in Serum or Plasma [2345-7] 06/15/2024 09:58 AM 162 mg/dL N Blood chemistry[[id number]] Glucose [Mass/volume] in Serum or Plasma [2345-7] 06/14/2024 05:40 PM 105 mg/dL N Blood chemistry[[id number]] Glucose [Mass/volume] in Serum or Plasma [2345-7] 06/14/2024 02:04 PM 89 mg/dL N Blood chemistry[[id number]] Glucose [Mass/volume] in Serum or Plasma [2345-7] 06/14/2024 01:55 PM 209 mg/dL N Blood chemistry[[id number]] Glucose [Mass/volume] in Serum or Plasma [2345-7] 06/14/2024 11:52 AM 84 mg/dL N Blood chemistry[[id number]] Glucose [Mass/volume] in Serum or Plasma [2345-7] 06/14/2024 11:20 AM 62 mg/dL N Blood chemistry[[id number]] Glucose [Mass/volume] in Serum or Plasma [2345-7] 06/14/2024 10:14 AM 183 mg/dL N Blood chemistry[[id number]] Glucose [Mass/volume] in Serum or Plasma [2345-7] 06/13/2024 06:23 PM 184 mg/dL N Blood chemistry[[id number]] Glucose [Mass/volume] in Serum or Plasma [2345-7] 06/13/2024 02:59 PM 176 mg/dL N Blood chemistry[[id number]] Glucose [Mass/volume] in Serum or Plasma [2345-7] 06/13/2024 01:17 PM 258 mg/dL N Blood chemistry[[id number]] Glucose [Mass/volume] in Serum or Plasma [2345-7] 06/13/2024 12:25 PM 169 mg/dL N Blood chemistry[[id number]] Glucose [Mass/volume] in Serum or Plasma [2345-7] 06/13/2024 11:15 AM 179 mg/dL N Blood chemistry[[id number]] Glucose [Mass/volume] in Serum or Plasma [2345-7] 06/12/2024 05:23 PM 159 mg/dL N Blood chemistry[[id number]] Glucose [Mass/volume] in Serum or Plasma [2345-7] 06/12/2024 01:22 PM 177 mg/dL N Blood chemistry[[id number]] Glucose [Mass/volume] in Serum or Plasma [2345-7] 06/12/2024 12:57 PM 263 mg/dL N Blood chemistry[[id number]] Glucose [Mass/volume] in Serum or Plasma [2345-7] 06/12/2024 11:12 AM 164 mg/dL N Blood chemistry[[id number]] Glucose [Mass/volume] in Serum or Plasma [2345-7] 06/12/2024 10:46 AM 209 mg/dL N Blood chemistry[[id number]] Glucose [Mass/volume] in Serum or Plasma [2345-7] 06/11/2024 06:13 PM 224 mg/dL N Blood chemistry[[id number]] Glucose [Mass/volume] in Serum or Plasma [2345-7] 06/11/2024 04:34 PM 67 mg/dL N Blood chemistry[[id number]] Glucose [Mass/volume] in Serum or Plasma [2345-7] 06/11/2024 01:17 PM 272 mg/dL N Blood chemistry[[id number]] Glucose [Mass/volume] in Serum or Plasma [2345-7] 06/11/2024 11:22 AM 211 mg/dL N Blood chemistry[[id number]] Glucose [Mass/volume] in Serum or Plasma [2345-7] 06/11/2024 11:13 AM 83 mg/dL N Blood chemistry[[id number]] Glucose [Mass/volume] in Serum or Plasma [2345-7] 06/10/2024 06:55 PM 206 mg/dL N Blood chemistry[[id number]] Glucose [Mass/volume] in Serum or Plasma [2345-7] 06/10/2024 01:38 PM 96 mg/dL N Blood chemistry[[id number]] Glucose [Mass/volume] in Serum or Plasma [2345-7] 06/10/2024 01:10 PM 205 mg/dL N Blood chemistry[[id number]] Glucose [Mass/volume] in Serum or Plasma [2345-7] 06/10/2024 12:50 PM 189 mg/dL N Blood chemistry[[id number]] Glucose [Mass/volume] in Serum or Plasma [2345-7] 06/09/2024 02:55 PM 178 mg/dL N Blood chemistry[[id number]] Glucose [Mass/volume] in Serum or Plasma [2345-7] 06/09/2024 02:38 PM 154 mg/dL N Blood chemistry[[id number]] Glucose [Mass/volume] in Serum or Plasma [2345-7] 06/09/2024 11:31 AM 117 mg/dL N Blood chemistry[[id number]] Glucose [Mass/volume] in Serum or Plasma [2345-7] 06/09/2024 07:30 AM 136 mg/dL N Blood chemistry[[id number]] Glucose [Mass/volume] in Serum or Plasma [2345-7] 06/08/2024 05:25 PM 143 mg/dL N Blood chemistry[[id number]] Glucose [Mass/volume] in Serum or Plasma [2345-7] 06/08/2024 01:13 PM 276 mg/dL N Blood chemistry[[id number]] Glucose [Mass/volume] in Serum or Plasma [2345-7] 06/08/2024 12:53 PM 147 mg/dL N Blood chemistry[[id number]] Glucose [Mass/volume] in Serum or Plasma [2345-7] 06/08/2024 11:11 AM 156 mg/dL N Blood chemistry[[id number]] Glucose [Mass/volume] in Serum or Plasma [2345-7] 06/08/2024 10:53 AM 177 mg/dL N Blood chemistry[[id number]] Glucose [Mass/volume] in Serum or Plasma [2345-7] 06/07/2024 04:52 PM 132 mg/dL N Blood chemistry[[id number]] Glucose [Mass/volume] in Serum or Plasma [2345-7] 06/07/2024 12:58 PM 194 mg/dL N Blood chemistry[[id number]] Glucose [Mass/volume] in Serum or Plasma [2345-7] 06/07/2024 12:16 PM 271 mg/dL N Blood chemistry[[id number]] Glucose [Mass/volume] in Serum or Plasma [2345-7] 06/07/2024 10:29 AM 207 mg/dL N Blood chemistry[[id number]] Glucose [Mass/volume] in Serum or Plasma [2345-7] 06/07/2024 09:12 AM 239 mg/dL N Blood chemistry[[id number]] Glucose [Mass/volume] in Serum or Plasma [2345-7] 06/06/2024 04:55 PM 376 mg/dL N Blood chemistry[[id number]] Glucose [Mass/volume] in Serum or Plasma [2345-7] 06/06/2024 12:51 PM 222 mg/dL N Blood chemistry[[id number]] Glucose [Mass/volume] in Serum or Plasma [2345-7] 06/06/2024 12:00 PM 385 mg/dL N Blood chemistry[[id number]] Glucose [Mass/volume] in Serum or Plasma [2345-7] 06/06/2024 09:08 AM 293 mg/dL N Blood chemistry[[id number]] Glucose [Mass/volume] in Serum or Plasma [2345-7] 06/05/2024 04:53 PM 239 mg/dL N Blood chemistry[[id number]] Glucose [Mass/volume] in Serum or Plasma [2345-7] 06/05/2024 12:10 PM 246 mg/dL N Blood chemistry[[id number]] Glucose [Mass/volume] in Serum or Plasma [2345-7] 06/05/2024 12:02 PM 311 mg/dL N Blood chemistry[[id number]] Glucose [Mass/volume] in Serum or Plasma [2345-7] 06/05/2024 09:03 AM 163 mg/dL N Glucose [Mass/volume] in Serum or Plasma [2345-7] 06/05/2024 09:03 AM 163 mg/dL N Blood chemistry[[id number]] Glucose [Mass/volume] in Serum or Plasma [2345-7] 06/04/2024 04:33 PM 134 mg/dL N Blood chemistry[[id number]] Glucose [Mass/volume] in Serum or Plasma [2345-7] 06/04/2024 03:33 PM 142 mg/dL N Blood chemistry[[id number]] Glucose [Mass/volume] in Serum or Plasma [2345-7] 06/04/2024 11:45 AM 314 mg/dL N Blood chemistry[[id number]] Glucose [Mass/volume] in Serum or Plasma [2345-7] 06/04/2024 09:16 AM 226 mg/dL N Blood chemistry[[id number]] Glucose [Mass/volume] in Serum or Plasma [2345-7] 06/03/2024 04:18 PM 202 mg/dL N Blood chemistry[[id number]] Glucose [Mass/volume] in Serum or Plasma [2345-7] 06/03/2024 12:16 PM 100 mg/dL N Blood chemistry[[id number]] Glucose [Mass/volume] in Serum or Plasma [2345-7] 06/03/2024 12:10 PM 305 mg/dL N Blood chemistry[[id number]] Glucose [Mass/volume] in Serum or Plasma [2345-7] 06/03/2024 09:34 AM 328 mg/dL N Blood chemistry[[id number]] Glucose [Mass/volume] in Serum or Plasma [2345-7] 06/02/2024 04:15 PM 270 mg/dL N Glucose [Mass/volume] in Serum or Plasma [2345-7] 06/02/2024 04:15 PM 206 mg/dL N Blood chemistry[[id number]] Glucose [Mass/volume] in Serum or Plasma [2345-7] 06/02/2024 01:31 PM 199 mg/dL N Blood chemistry[[id number]] Glucose [Mass/volume] in Serum or Plasma [2345-7] 06/02/2024 01:30 PM 199 mg/dL N Blood chemistry[[id number]] Glucose [Mass/volume] in Serum or Plasma [2345-7] 06/02/2024 12:02 PM 338 mg/dL N Blood chemistry[[id number]] Glucose [Mass/volume] in Serum or Plasma [2345-7] 06/02/2024 09:19 AM 270 mg/dL N Blood chemistry[[id number]] Glucose [Mass/volume] in Serum or Plasma [2345-7] 06/01/2024 04:26 PM 267 mg/dL N Blood chemistry[[id number]] Glucose [Mass/volume] in Serum or Plasma [2345-7] 06/01/2024 12:45 PM 178 mg/dL N Blood chemistry[[id number]] Glucose [Mass/volume] in Serum or Plasma [2345-7] 06/01/2024 12:43 PM 346 mg/dL N Blood chemistry[[id number]] Glucose [Mass/volume] in Serum or Plasma [2345-7] 06/01/2024 10:09 AM 241 mg/dL N Blood chemistry[[id number]] Glucose [Mass/volume] in Serum or Plasma [2345-7] 05/31/2024 02:16 PM 280 mg/dL N Blood chemistry[[id number]] Glucose [Mass/volume] in Serum or Plasma [2345-7] 05/31/2024 12:21 PM 266 mg/dL N Blood chemistry[[id number]] Glucose [Mass/volume] in Serum or Plasma [2345-7] 05/31/2024 11:47 AM 219 mg/dL N Blood chemistry[[id number]] Glucose [Mass/volume] in Serum or Plasma [2345-7] 05/31/2024 06:49 AM 312 mg/dL N Blood chemistry[[id number]] Glucose [Mass/volume] in Serum or Plasma [2345-7] 05/30/2024 04:15 PM 205 mg/dL N Blood chemistry[[id number]] Glucose [Mass/volume] in Serum or Plasma [2345-7] 05/30/2024 02:36 PM 251 mg/dL N Blood chemistry[[id number]] Glucose [Mass/volume] in Serum or Plasma [2345-7] 05/30/2024 10:15 AM 299 mg/dL N Blood chemistry[[id number]] Glucose [Mass/volume] in Serum or Plasma [2345-7] 05/30/2024 10:14 AM 249 mg/dL N Blood chemistry[[id number]] Glucose [Mass/volume] in Serum or Plasma [2345-7] 05/29/2024 05:57 PM 309 mg/dL N Blood chemistry[[id number]] Glucose [Mass/volume] in Serum or Plasma [2345-7] 05/29/2024 04:23 PM 182 mg/dL N Blood chemistry[[id number]] Glucose [Mass/volume] in Serum or Plasma [2345-7] 05/29/2024 12:20 PM 238 mg/dL N Blood chemistry[[id number]] Glucose [Mass/volume] in Serum or Plasma [2345-7] 05/29/2024 09:19 AM 227 mg/dL N Blood chemistry[[id number]] Glucose [Mass/volume] in Serum or Plasma [2345-7] 05/28/2024 04:28 PM 220 mg/dL N Blood chemistry[[id number]] Glucose [Mass/volume] in Serum or Plasma [2345-7] 05/28/2024 12:39 PM 302 mg/dL N Blood chemistry[[id number]] Glucose [Mass/volume] in Serum or Plasma [2345-7] 05/28/2024 11:59 AM 354 mg/dL N Blood chemistry[[id number]] Glucose [Mass/volume] in Serum or Plasma [2345-7] 05/28/2024 09:10 AM 216 mg/dL N Blood chemistry[[id number]] Glucose [Mass/volume] in Serum or Plasma [2345-7] 05/27/2024 04:06 PM 230 mg/dL N Blood chemistry[[id number]] Glucose [Mass/volume] in Serum or Plasma [2345-7] 05/27/2024 12:19 PM 322 mg/dL N Blood chemistry[[id number]] Glucose [Mass/volume] in Serum or Plasma [2345-7] 05/27/2024 12:11 PM 214 mg/dL N Blood chemistry[[id number]] Glucose [Mass/volume] in Serum or Plasma [2345-7] 05/27/2024 11:27 AM 172 mg/dL N Blood chemistry[[id number]] Glucose [Mass/volume] in Serum or Plasma [2345-7] 05/27/2024 11:26 AM 172 mg/dL N Blood chemistry[[id number]] Glucose [Mass/volume] in Serum or Plasma [2345-7] 05/26/2024 05:26 PM 167 mg/dL N Blood chemistry[[id number]] Glucose [Mass/volume] in Serum or Plasma [2345-7] 05/26/2024 05:25 PM 167 mg/dL N COVID-19 Test Viral Antigen null flavor [null] 05/26/2024 05:00 PM See note NEG COVID-19 Test Viral Antigen Blood chemistry[[id number]] Glucose [Mass/volume] in Serum or Plasma [2345-7] 05/26/2024 12:55 PM 182 mg/dL N Glucose [Mass/volume] in Serum or Plasma [2345-7] 05/26/2024 12:55 PM 182 mg/dL N Blood chemistry[[id number]] Glucose [Mass/volume] in Serum or Plasma [2345-7] 05/26/2024 12:31 PM 262 mg/dL N Blood chemistry[[id number]] Glucose [Mass/volume] in Serum or Plasma [2345-7] 05/26/2024 09:38 AM 172 mg/dL N Blood chemistry[[id number]] Glucose [Mass/volume] in Serum or Plasma [2345-7] 05/25/2024 05:02 PM 72 mg/dL N Glucose [Mass/volume] in Serum or Plasma [2345-7] 05/25/2024 05:02 PM 72 mg/dL N Glucose [Mass/volume] in Serum or Plasma [2345-7] 05/25/2024 05:02 PM 69 mg/dL N Blood chemistry[[id number]] Glucose [Mass/volume] in Serum or Plasma [2345-7] 05/25/2024 12:38 PM 213 mg/dL N Blood chemistry[[id number]] Glucose [Mass/volume] in Serum or Plasma [2345-7] 05/25/2024 10:55 AM 161 mg/dL N Blood chemistry[[id number]] Glucose [Mass/volume] in Serum or Plasma [2345-7] 05/24/2024 04:49 PM 239 mg/dL N Blood chemistry[[id number]] Glucose [Mass/volume] in Serum or Plasma [2345-7] 05/24/2024 02:25 PM 238 mg/dL N Blood chemistry[[id number]] Glucose [Mass/volume] in Serum or Plasma [2345-7] 05/24/2024 12:08 PM 260 mg/dL N Blood chemistry[[id number]] Glucose [Mass/volume] in Serum or Plasma [2345-7] 05/24/2024 11:17 AM 216 mg/dL N Blood chemistry[[id number]] Glucose [Mass/volume] in Serum or Plasma [2345-7] 05/23/2024 05:03 PM 186 mg/dL N Blood chemistry[[id number]] Glucose [Mass/volume] in Serum or Plasma [2345-7] 05/23/2024 01:10 PM 131 mg/dL N Blood chemistry[[id number]] Glucose [Mass/volume] in Serum or Plasma [2345-7] 05/23/2024 01:06 PM 211 mg/dL N Blood chemistry[[id number]] Glucose [Mass/volume] in Serum or Plasma [2345-7] 05/23/2024 09:43 AM 186 mg/dL N Blood chemistry[[id number]] Glucose [Mass/volume] in Serum or Plasma [2345-7] 05/22/2024 04:41 PM 191 mg/dL N Blood chemistry[[id number]] Glucose [Mass/volume] in Serum or Plasma [2345-7] 05/22/2024 02:08 PM 208 mg/dL N Blood chemistry[[id number]] Glucose [Mass/volume] in Serum or Plasma [2345-7] 05/22/2024 11:41 AM 348 mg/dL N Blood chemistry[[id number]] Glucose [Mass/volume] in Serum or Plasma [2345-7] 05/22/2024 09:24 AM 294 mg/dL N Glucose [Mass/volume] in Serum or Plasma [2345-7] 05/22/2024 09:24 AM 294 mg/dL N Blood chemistry[[id number]] Glucose [Mass/volume] in Serum or Plasma [2345-7] 05/21/2024 04:08 PM 236 mg/dL N Blood chemistry[[id number]] Glucose [Mass/volume] in Serum or Plasma [2345-7] 05/21/2024 02:48 PM 179 mg/dL N Blood chemistry[[id number]] Glucose [Mass/volume] in Serum or Plasma [2345-7] 05/21/2024 11:43 AM 255 mg/dL N Blood chemistry[[id number]] Glucose [Mass/volume] in Serum or Plasma [2345-7] 05/21/2024 09:14 AM 276 mg/dL N Blood chemistry[[id number]] Glucose [Mass/volume] in Serum or Plasma [2345-7] 05/20/2024 05:16 PM 198 mg/dL N Glucose [Mass/volume] in Serum or Plasma [2345-7] 05/20/2024 05:16 PM 198 mg/dL N Blood chemistry[[id number]] Glucose [Mass/volume] in Serum or Plasma [2345-7] 05/20/2024 12:09 PM 195 mg/dL N Blood chemistry[[id number]] Glucose [Mass/volume] in Serum or Plasma [2345-7] 05/20/2024 12:07 PM 81 mg/dL N Blood chemistry[[id number]] Glucose [Mass/volume] in Serum or Plasma [2345-7] 05/20/2024 09:04 AM 201 mg/dL N COVID-19 Test Viral Antigen null flavor [null] 05/19/2024 05:00 PM See note NEG COVID-19 Test Viral Antigen Blood chemistry[[id number]] Glucose [Mass/volume] in Serum or Plasma [2345-7] 05/19/2024 04:35 PM 260 mg/dL N Blood chemistry[[id number]] Glucose [Mass/volume] in Serum or Plasma [2345-7] 05/19/2024 03:22 PM 217 mg/dL N Glucose [Mass/volume] in Serum or Plasma [2345-7] 05/19/2024 03:22 PM 217 mg/dL N Blood chemistry[[id number]] Glucose [Mass/volume] in Serum or Plasma [2345-7] 05/19/2024 12:09 PM 324 mg/dL N Blood chemistry[[id number]] Glucose [Mass/volume] in Serum or Plasma [2345-7] 05/19/2024 08:16 AM 245 mg/dL N Blood chemistry[[id number]] Glucose [Mass/volume] in Serum or Plasma [2345-7] 05/19/2024 08:14 AM 245 mg/dL N Blood chemistry[[id number]] Glucose [Mass/volume] in Serum or Plasma [2345-7] 05/18/2024 04:53 PM 84 mg/dL N Blood chemistry[[id number]] Glucose [Mass/volume] in Serum or Plasma [2345-7] 05/18/2024 12:58 PM 81 mg/dL N Blood chemistry[[id number]] Glucose [Mass/volume] in Serum or Plasma [2345-7] 05/18/2024 12:32 PM 170 mg/dL N Blood chemistry[[id number]] Glucose [Mass/volume] in Serum or Plasma [2345-7] 05/18/2024 09:48 AM 171 mg/dL N Blood chemistry[[id number]] Glucose [Mass/volume] in Serum or Plasma [2345-7] 05/17/2024 04:40 PM 93 mg/dL N Blood chemistry[[id number]] Glucose [Mass/volume] in Serum or Plasma [2345-7] 05/17/2024 12:05 PM 148 mg/dL N Glucose [Mass/volume] in Serum or Plasma [2345-7] 05/17/2024 12:05 PM 83 mg/dL N Blood chemistry[[id number]] Glucose [Mass/volume] in Serum or Plasma [2345-7] 05/17/2024 09:14 AM 110 mg/dL N Blood chemistry[[id number]] Glucose [Mass/volume] in Serum or Plasma [2345-7] 05/16/2024 05:27 PM 141 mg/dL N Blood chemistry[[id number]] Glucose [Mass/volume] in Serum or Plasma [2345-7] 05/16/2024 01:02 PM 98 mg/dL N Blood chemistry[[id number]] Glucose [Mass/volume] in Serum or Plasma [2345-7] 05/16/2024 12:38 PM 247 mg/dL N Blood chemistry[[id number]] Glucose [Mass/volume] in Serum or Plasma [2345-7] 05/16/2024 10:02 AM 145 mg/dL N Blood chemistry[[id number]] Glucose [Mass/volume] in Serum or Plasma [2345-7] 05/16/2024 06:05 AM 291 mg/dL N Blood chemistry[[id number]] Glucose [Mass/volume] in Serum or Plasma [2345-7] 05/15/2024 02:47 PM 214 mg/dL N Blood chemistry[[id number]] Glucose [Mass/volume] in Serum or Plasma [2345-7] 05/15/2024 11:05 AM 190 mg/dL N Blood chemistry[[id number]] Glucose [Mass/volume] in Serum or Plasma [2345-7] 05/15/2024 06:49 AM 327 mg/dL N Blood chemistry[[id number]] Glucose [Mass/volume] in Serum or Plasma [2345-7] 05/14/2024 05:12 PM 245 mg/dL N Blood chemistry[[id number]] Glucose [Mass/volume] in Serum or Plasma [2345-7] 05/14/2024 05:11 PM 245 mg/dL N Blood chemistry[[id number]] Glucose [Mass/volume] in Serum or Plasma [2345-7] 05/14/2024 01:09 PM 296 mg/dL N Blood chemistry[[id number]] Glucose [Mass/volume] in Serum or Plasma [2345-7] 05/14/2024 12:00 PM 381 mg/dL N Blood chemistry[[id number]] Glucose [Mass/volume] in Serum or Plasma [2345-7] 05/14/2024 11:23 AM 337 mg/dL N Blood chemistry[[id number]] Glucose [Mass/volume] in Serum or Plasma [2345-7] 05/13/2024 05:26 PM 290 mg/dL N Blood chemistry[[id number]] Glucose [Mass/volume] in Serum or Plasma [2345-7] 05/13/2024 11:51 AM 229 mg/dL N Blood chemistry[[id number]] Glucose [Mass/volume] in Serum or Plasma [2345-7] 05/13/2024 08:41 AM 268 mg/dL N Blood chemistry[[id number]] Glucose [Mass/volume] in Serum or Plasma [2345-7] 05/13/2024 06:15 AM 229 mg/dL N COVID-19 Test Viral Antigen null flavor [null] 05/12/2024 05:00 PM See note NEG COVID-19 Test Viral Antigen Blood chemistry[[id number]] Glucose [Mass/volume] in Serum or Plasma [2345-7] 05/12/2024 05:00 PM 279 mg/dL N Blood chemistry[[id number]] Glucose [Mass/volume] in Serum or Plasma [2345-7] 05/12/2024 02:21 PM 178 mg/dL N Blood chemistry[[id number]] Glucose [Mass/volume] in Serum or Plasma [2345-7] 05/12/2024 10:42 AM 212 mg/dL N Blood chemistry[[id number]] Glucose [Mass/volume] in Serum or Plasma [2345-7] 05/11/2024 04:50 PM 137 mg/dL N Blood chemistry[[id number]] Glucose [Mass/volume] in Serum or Plasma [2345-7] 05/11/2024 01:27 PM 209 mg/dL N Blood chemistry[[id number]] Glucose [Mass/volume] in Serum or Plasma [2345-7] 05/11/2024 12:06 PM 279 mg/dL N Blood chemistry[[id number]] Glucose [Mass/volume] in Serum or Plasma [2345-7] 05/11/2024 08:55 AM 164 mg/dL N Blood chemistry[[id number]] Glucose [Mass/volume] in Serum or Plasma [2345-7] 05/10/2024 05:36 PM 320 mg/dL N Blood chemistry[[id number]] Glucose [Mass/volume] in Serum or Plasma [2345-7] 05/10/2024 01:32 PM 279 mg/dL N Blood chemistry[[id number]] Glucose [Mass/volume] in Serum or Plasma [2345-7] 05/10/2024 12:57 PM 228 mg/dL N Blood chemistry[[id number]] Glucose [Mass/volume] in Serum or Plasma [2345-7] 05/10/2024 11:27 AM 210 mg/dL N Blood chemistry[[id number]] Glucose [Mass/volume] in Serum or Plasma [2345-7] 05/09/2024 05:26 PM 308 mg/dL N Blood chemistry[[id number]] Glucose [Mass/volume] in Serum or Plasma [2345-7] 05/09/2024 02:43 PM 296 mg/dL N Blood chemistry[[id number]] Glucose [Mass/volume] in Serum or Plasma [2345-7] 05/09/2024 01:18 PM 313 mg/dL N Blood chemistry[[id number]] Glucose [Mass/volume] in Serum or Plasma [2345-7] 05/09/2024 11:19 AM 344 mg/dL N Blood chemistry[[id number]] Glucose [Mass/volume] in Serum or Plasma [2345-7] 05/08/2024 03:46 PM 277 mg/dL N Blood chemistry[[id number]] Glucose [Mass/volume] in Serum or Plasma [2345-7] 05/08/2024 02:31 PM 188 mg/dL N Blood chemistry[[id number]] Glucose [Mass/volume] in Serum or Plasma [2345-7] 05/08/2024 11:49 AM 312 mg/dL N Blood chemistry[[id number]] Glucose [Mass/volume] in Serum or Plasma [2345-7] 05/08/2024 10:13 AM 262 mg/dL N Blood chemistry[[id number]] Glucose [Mass/volume] in Serum or Plasma [2345-7] 05/07/2024 04:14 PM 249 mg/dL N Blood chemistry[[id number]] Glucose [Mass/volume] in Serum or Plasma [2345-7] 05/07/2024 12:21 PM 255 mg/dL N Blood chemistry[[id number]] Glucose [Mass/volume] in Serum or Plasma [2345-7] 05/07/2024 12:14 PM 237 mg/dL N Blood chemistry[[id number]] Glucose [Mass/volume] in Serum or Plasma [2345-7] 05/07/2024 08:58 AM 352 mg/dL N Blood chemistry[[id number]] Glucose [Mass/volume] in Serum or Plasma [2345-7] 05/06/2024 05:47 PM 247 mg/dL N Blood chemistry[[id number]] Glucose [Mass/volume] in Serum or Plasma [2345-7] 05/06/2024 12:43 PM 199 mg/dL N Blood chemistry[[id number]] Glucose [Mass/volume] in Serum or Plasma [2345-7] 05/06/2024 12:00 PM 199 mg/dL N Blood chemistry[[id number]] Glucose [Mass/volume] in Serum or Plasma [2345-7] 05/06/2024 10:08 AM 238 mg/dL N Glucose [Mass/volume] in Serum or Plasma [2345-7] 05/06/2024 10:08 AM 238 mg/dL N Blood chemistry[[id number]] Glucose [Mass/volume] in Serum or Plasma [2345-7] 05/05/2024 05:36 PM 129 mg/dL N Blood chemistry[[id number]] Glucose [Mass/volume] in Serum or Plasma [2345-7] 05/05/2024 05:35 PM 129 mg/dL N COVID-19 Test Viral Antigen null flavor [null] 05/05/2024 05:00 PM See note NEG COVID-19 Test Viral Antigen Blood chemistry[[id number]] Glucose [Mass/volume] in Serum or Plasma [2345-7] 05/05/2024 12:56 PM 221 mg/dL N Blood chemistry[[id number]] Glucose [Mass/volume] in Serum or Plasma [2345-7] 05/05/2024 12:36 PM 186 mg/dL N Blood chemistry[[id number]] Glucose [Mass/volume] in Serum or Plasma [2345-7] 05/05/2024 09:17 AM 216 mg/dL N Blood chemistry[[id number]] Glucose [Mass/volume] in Serum or Plasma [2345-7] 05/04/2024 04:30 PM 233 mg/dL N Blood chemistry[[id number]] Glucose [Mass/volume] in Serum or Plasma [2345-7] 05/04/2024 12:29 PM 207 mg/dL N Blood chemistry[[id number]] Glucose [Mass/volume] in Serum or Plasma [2345-7] 05/04/2024 12:18 PM 252 mg/dL N Blood chemistry[[id number]] Glucose [Mass/volume] in Serum or Plasma [2345-7] 05/04/2024 09:29 AM 189 mg/dL N Blood chemistry[[id number]] Glucose [Mass/volume] in Serum or Plasma [2345-7] 05/03/2024 04:06 PM 194 mg/dL N Blood chemistry[[id number]] Glucose [Mass/volume] in Serum or Plasma [2345-7] 05/03/2024 01:43 PM 265 mg/dL N Blood chemistry[[id number]] Glucose [Mass/volume] in Serum or Plasma [2345-7] 05/03/2024 12:04 PM 257 mg/dL N Blood chemistry[[id number]] Glucose [Mass/volume] in Serum or Plasma [2345-7] 05/03/2024 09:22 AM 232 mg/dL N Blood chemistry[[id number]] Glucose [Mass/volume] in Serum or Plasma [2345-7] 05/02/2024 05:12 PM 78 mg/dL N Blood chemistry[[id number]] Glucose [Mass/volume] in Serum or Plasma [2345-7] 05/02/2024 12:44 PM 155 mg/dL N Blood chemistry[[id number]] Glucose [Mass/volume] in Serum or Plasma [2345-7] 05/02/2024 12:33 PM 205 mg/dL N Blood chemistry[[id number]] Glucose [Mass/volume] in Serum or Plasma [2345-7] 05/02/2024 11:12 AM 210 mg/dL N Blood chemistry[[id number]] Glucose [Mass/volume] in Serum or Plasma [2345-7] 05/01/2024 05:55 PM 105 mg/dL N Blood chemistry[[id number]] Glucose [Mass/volume] in Serum or Plasma [2345-7] 05/01/2024 01:00 PM 118 mg/dL N Blood chemistry[[id number]] Glucose [Mass/volume] in Serum or Plasma [2345-7] 05/01/2024 11:36 AM 263 mg/dL N Blood chemistry[[id number]] Glucose [Mass/volume] in Serum or Plasma [2345-7] 05/01/2024 09:58 AM 139 mg/dL N Blood chemistry[[id number]] Glucose [Mass/volume] in Serum or Plasma [2345-7] 04/30/2024 04:55 PM 73 mg/dL N Blood chemistry[[id number]] Glucose [Mass/volume] in Serum or Plasma [2345-7] 04/30/2024 12:36 PM 127 mg/dL N Glucose [Mass/volume] in Serum or Plasma [2345-7] 04/30/2024 12:36 PM 127 mg/dL N Blood chemistry[[id number]] Glucose [Mass/volume] in Serum or Plasma [2345-7] 04/30/2024 12:02 PM 234 mg/dL N Blood chemistry[[id number]] Glucose [Mass/volume] in Serum or Plasma [2345-7] 04/30/2024 09:36 AM 194 mg/dL N Blood chemistry[[id number]] Glucose [Mass/volume] in Serum or Plasma [2345-7] 04/29/2024 12:43 PM 86 mg/dL N Glucose [Mass/volume] in Serum or Plasma [2345-7] 04/29/2024 12:43 PM 86 mg/dL N Blood chemistry[[id number]] Glucose [Mass/volume] in Serum or Plasma [2345-7] 04/29/2024 12:06 PM 240 mg/dL N Blood chemistry[[id number]] Glucose [Mass/volume] in Serum or Plasma [2345-7] 04/29/2024 09:37 AM 226 mg/dL N Blood chemistry[[id number]] Glucose [Mass/volume] in Serum or Plasma [2345-7] 04/29/2024 06:07 AM 175 mg/dL N COVID-19 Test Viral Antigen null flavor [null] 2024 05:00 PM See note NEG COVID-19 Test Viral Antigen Blood chemistry[[id number]] Glucose [Mass/volume] in Serum or Plasma [2345-7] 2024 03:01 PM 154 mg/dL N Blood chemistry[[id number]] Glucose [Mass/volume] in Serum or Plasma [2345-7] 2024 03:00 PM 154 mg/dL N Blood chemistry[[id number]] Glucose [Mass/volume] in Serum or Plasma [2345-7] 2024 11:42 AM 240 mg/dL N Blood chemistry[[id number]] Glucose [Mass/volume] in Serum or Plasma [2345-7] 2024 10:32 AM 233 mg/dL N Blood chemistry[[id number]] Glucose [Mass/volume] in Serum or Plasma [2345-7] 2024 08:23 AM 154 mg/dL N Glucose [Mass/volume] in Serum or Plasma [2345-7] 2024 08:23 AM 96 mg/dL N Blood chemistry[[id number]] Glucose [Mass/volume] in Serum or Plasma [2345-7] 04/27/2024 05:07 PM 104 mg/dL N Blood chemistry[[id number]] Glucose [Mass/volume] in Serum or Plasma [2345-7] 04/27/2024 02:24 PM 87 mg/dL N Blood chemistry[[id number]] Glucose [Mass/volume] in Serum or Plasma [2345-7] 04/27/2024 01:11 PM 178 mg/dL N Blood chemistry[[id number]] Glucose [Mass/volume] in Serum or Plasma [2345-7] 04/27/2024 11:09 AM 105 mg/dL N Blood chemistry[[id number]] Glucose [Mass/volume] in Serum or Plasma [2345-7] 04/26/2024 05:46 PM 117 mg/dL N Blood chemistry[[id number]] Glucose [Mass/volume] in Serum or Plasma [2345-7] 04/26/2024 03:47 PM 126 mg/dL N Blood chemistry[[id number]] Glucose [Mass/volume] in Serum or Plasma [2345-7] 04/26/2024 01:47 PM 213 mg/dL N Blood chemistry[[id number]] Glucose [Mass/volume] in Serum or Plasma [2345-7] 04/26/2024 09:28 AM 175 mg/dL N Blood chemistry[[id number]] Glucose [Mass/volume] in Serum or Plasma [2345-7] 04/25/2024 04:06 PM 208 mg/dL N Blood chemistry[[id number]] Glucose [Mass/volume] in Serum or Plasma [2345-7] 04/25/2024 02:07 PM 188 mg/dL N Blood chemistry[[id number]] Glucose [Mass/volume] in Serum or Plasma [2345-7] 04/25/2024 12:33 PM 336 mg/dL N Blood chemistry[[id number]] Glucose [Mass/volume] in Serum or Plasma [2345-7] 04/25/2024 10:24 AM 233 mg/dL N Blood chemistry[[id number]] Glucose [Mass/volume] in Serum or Plasma [2345-7] 04/24/2024 04:58 PM 223 mg/dL N Blood chemistry[[id number]] Glucose [Mass/volume] in Serum or Plasma [2345-7] 04/24/2024 02:30 PM 216 mg/dL N Blood chemistry[[id number]] Glucose [Mass/volume] in Serum or Plasma [2345-7] 04/24/2024 12:17 PM 216 mg/dL N Blood chemistry[[id number]] Glucose [Mass/volume] in Serum or Plasma [2345-7] 04/24/2024 12:10 PM 315 mg/dL N Blood chemistry[[id number]] Glucose [Mass/volume] in Serum or Plasma [2345-7] 04/24/2024 10:07 AM 275 mg/dL N Blood chemistry[[id number]] Glucose [Mass/volume] in Serum or Plasma [2345-7] 04/23/2024 04:04 PM 55 mg/dL N Blood chemistry[[id number]] Glucose [Mass/volume] in Serum or Plasma [2345-7] 04/23/2024 12:36 PM 82 mg/dL N Blood chemistry[[id number]] Glucose [Mass/volume] in Serum or Plasma [2345-7] 04/23/2024 11:44 AM 194 mg/dL N Blood chemistry[[id number]] Glucose [Mass/volume] in Serum or Plasma [2345-7] 04/23/2024 09:20 AM 120 mg/dL N Blood chemistry[[id number]] Glucose [Mass/volume] in Serum or Plasma [2345-7] 04/23/2024 07:34 AM 109 mg/dL N Blood chemistry[[id number]] Glucose [Mass/volume] in Serum or Plasma [2345-7] 04/22/2024 04:32 PM 94 mg/dL N Blood chemistry[[id number]] Glucose [Mass/volume] in Serum or Plasma [2345-7] 04/22/2024 02:29 PM 129 mg/dL N Blood chemistry[[id number]] Glucose [Mass/volume] in Serum or Plasma [2345-7] 04/22/2024 11:54 AM 205 mg/dL N Blood chemistry[[id number]] Glucose [Mass/volume] in Serum or Plasma [2345-7] 04/22/2024 10:01 AM 152 mg/dL N COVID-19 Test Viral Antigen null flavor [null] 04/21/2024 05:00 PM See note NEG COVID-19 Test Viral Antigen Blood chemistry[[id number]] Glucose [Mass/volume] in Serum or Plasma [2345-7] 04/21/2024 04:59 PM 156 mg/dL N Glucose [Mass/volume] in Serum or Plasma [2345-7] 04/21/2024 04:59 PM 156 mg/dL N Blood chemistry[[id number]] Glucose [Mass/volume] in Serum or Plasma [2345-7] 04/21/2024 02:14 PM 237 mg/dL N Blood chemistry[[id number]] Glucose [Mass/volume] in Serum or Plasma [2345-7] 04/21/2024 12:42 PM 435 mg/dL N Blood chemistry[[id number]] Glucose [Mass/volume] in Serum or Plasma [2345-7] 04/21/2024 09:38 AM 202 mg/dL N Blood chemistry[[id number]] Glucose [Mass/volume] in Serum or Plasma [2345-7] 04/21/2024 09:37 AM 202 mg/dL N Blood chemistry[[id number]] Glucose [Mass/volume] in Serum or Plasma [2345-7] 04/20/2024 03:59 PM 114 mg/dL N Blood chemistry[[id number]] Glucose [Mass/volume] in Serum or Plasma [2345-7] 04/20/2024 12:17 PM 189 mg/dL N Blood chemistry[[id number]] Glucose [Mass/volume] in Serum or Plasma [2345-7] 04/20/2024 12:13 PM 150 mg/dL N Blood chemistry[[id number]] Glucose [Mass/volume] in Serum or Plasma [2345-7] 04/20/2024 09:23 AM 109 mg/dL N Blood chemistry[[id number]] Glucose [Mass/volume] in Serum or Plasma [2345-7] 04/19/2024 12:46 PM 203 mg/dL N Blood chemistry[[id number]] Glucose [Mass/volume] in Serum or Plasma [2345-7] 04/19/2024 12:44 PM 76 mg/dL N Blood chemistry[[id number]] Glucose [Mass/volume] in Serum or Plasma [2345-7] 04/19/2024 11:02 AM 114 mg/dL N Blood chemistry[[id number]] Glucose [Mass/volume] in Serum or Plasma [2345-7] 04/19/2024 06:58 AM 74 mg/dL N Blood chemistry[[id number]] Glucose [Mass/volume] in Serum or Plasma [2345-7] 04/18/2024 05:27 PM 81 mg/dL N Blood chemistry[[id number]] Glucose [Mass/volume] in Serum or Plasma [2345-7] 04/18/2024 12:44 PM 71 mg/dL N Blood chemistry[[id number]] Glucose [Mass/volume] in Serum or Plasma [2345-7] 04/18/2024 12:24 PM 130 mg/dL N Blood chemistry[[id number]] Glucose [Mass/volume] in Serum or Plasma [2345-7] 04/18/2024 09:50 AM 110 mg/dL N Blood chemistry[[id number]] Glucose [Mass/volume] in Serum or Plasma [2345-7] 04/17/2024 05:04 PM 71 mg/dL N Blood chemistry[[id number]] Glucose [Mass/volume] in Serum or Plasma [2345-7] 04/17/2024 12:31 PM 111 mg/dL N Blood chemistry[[id number]] Glucose [Mass/volume] in Serum or Plasma [2345-7] 04/17/2024 12:11 PM 225 mg/dL N Blood chemistry[[id number]] Glucose [Mass/volume] in Serum or Plasma [2345-7] [...] 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 [...] 11/19 Active Ocuvite Eye Health (Lutein/Zeaxan thin, [place] 3, Zinc, Vitamins) [id number] capsule (Ocuvite Eye Health (Lutein/Zeaxan thin, [place] 3, Zinc, Vitamins)) 1, oral, At Bedtime, [...] Active Afluria Qd 2022-(3yr up)(PF) (flu vac [id number] 36mos up(pf)) 60 mcg (15 mcg x 4)/0.5 mL syringe (Afluria Qd (3yr up)(PF) (flu vac [id number] 36mos up(pf))) 0.5ml, intramuscular , Once - One Time, clinical indication: flu vaccination intramusc ular 1.0 11/18 Active Afluria Quad 4092-7986(6mo up) (flu vaccine ta5048-20(6mos up)) 60 mcg (15 mcg x 4)/0.5 m suspension (Afluria Quad (6mo up) (flu vaccine ul6843-29(6mos up))) 0.5ml, intramuscular , Once - One Time intramusc ular 1.0 11/18 Active Afluria Quad (6mo up) (flu vaccine cj1188-56(6mos up)) 60 mcg (15 mcg x 4)/0.5 mL suspension (Afluria Quad (6mo up) (flu vaccine bt3834-51(6mos up))) 0.5 ml, intramuscular , Once - [...] Active Ocuvite with Lutein (vit a,c and j-micqxo-ovnef als) 300 mcg-200 mg-27 mg-2 mg tablet (Ocuvite with Lutein (vit a,c and z-ndbyou-jhgvu als)) 1 tab, oral, At Bedtime oral [...] h 04/24 Active I-Chandrakant (vit a,c and f-beunoa-qkcck als) 300 mcg-200 mg-27 mg-2 mg tablet (I-Chandrakant (vit a,c and w-jevvka-mdnuw als)) 1 tab, oral, Once A Day, [...] Blood Sugar is greater than 400, call . subcutane ous 1.0 04/24 Active metoprolol tartrate [...] 04/03 Active Eye Health Vitamin-Min[place] l (vit c,v-mb-xqxwj-l utein-zeaxan) 250-90-10-1 mg capsule (Eye Health Vitamin-[place] l (vit c,s-ho-cfpdo-l utein-zeaxan)) 1 cap, oral, Once A Day, TI for ocuvite oral 1.0 1.0 d 04/06 Active I-Chandrakant (vit a,c and c-ibjboq-jrjwh als) 300 mcg-200 mg-27 mg-2 mg tablet (I-Chandrakant (vit a,c and q-znoezs-enthi als)) 1 tab, oral, Once A Day, [...] Blood Sugar is greater than 400, call , BS less than 60 or greater than [...] h 2024 Active I-Chandrakant (vit a,c and g-uxfeas-eomut als) 300 mcg-200 mg-27 mg-2 mg tablet (I-Chandrakant (vit a,c and z-rewzbg-qnvym als)) 1 tab, oral, Once A Day, [...] 66 /min 07/10/2024 12:49 PM Body Weight (36170-3) 203.8 [lb_av ] Body Mass Index (48049-5) 30.98 kg/m2 07/10/2024 07:02 AM Heart Rate (8867-4) 70 /min 07/09/2024 05:11 PM Body Weight (15322-6) 201.4 [lb_av ] Body Mass Index (38813-0) 30.62 kg/m2 07/09/2024 10:09 AM Temperature (8310-5) 98.5 [degF] Oxygen Saturation (38824-4) 98 % Respiratory Rate (9279-1) 18 /min Heart Rate (8867-4) 59 /min 07/09/2024 09:54 AM Heart Rate (8867-4) 59 /min 07/09/2024 08:42 AM Body Weight (67705-6) 201.8 [lb_av ] Body Mass Index (09690-3) 30.68 kg/m2 07/08/2024 01:48 PM Body Weight (96866-7) 201.7 [lb_av ] Body Mass Index (35806-9) 30.67 kg/m2 07/07/2024 04:58 PM Body Weight (53144-0) 201.8 [lb_av ] Body Mass Index (74874-4) 30.68 kg/m2 07/06/2024 03:25 PM Body Weight (46453-2) 200.4 [lb_av ] Body Mass Index (67554-1) 30.47 kg/m2 07/02/2024 09:51 AM Temperature (8310-5) 98 [degF] Oxygen Saturation (71667-7) 92 % Respiratory Rate (9279-1) 17 /min 06/25/2024 07:21 AM Body Weight (68773-0) 204.6 [lb_av ] Body Mass Index (08902-4) 31.11 kg/m2 06/18/2024 11:23 AM Body Weight (06362-8) 201.4 [lb_av ] Body Mass Index (05837-0) 30.62 kg/m2 06/18/2024 10:10 AM Temperature (8310-5) 97.8 [degF] Oxygen Saturation (55458-3) 94 % Respiratory Rate (9279-1) 19 /min 06/11/2024 10:34 AM Temperature (8310-5) 98.5 [degF] Oxygen Saturation (39066-6) 94 % Respiratory Rate (9279-1) 19 /min Body Weight (48541-2) 202 [lb_av] Body Mass Index (07564-5) 30.71 kg/m2 06/10/2024 04:56 PM Body Weight (87109-8) 198.8 [lb_av ] Body Mass Index (17576-9) 30.22 kg/m2 06/09/2024 08:38 PM Body Weight (05284-3) 198.8 [lb_av ] Body Mass Index (56947-5) 30.22 kg/m2 06/06/2024 12:30 PM Body Weight (01809-7) 194.6 [lb_av ] Body Mass Index (64007-9) 29.59 kg/m2 06/05/2024 07:48 PM Temperature (8310-5) 98.1 [degF] 06/05/2024 08:23 AM Temperature (8310-5) 98 [degF] 06/04/2024 07:45 PM Temperature (8310-5) 99 [degF] 06/04/2024 01:53 PM Temperature (8310-5) 98 [degF] 06/04/2024 11:55 AM Temperature (8310-5) 97.8 [degF] Oxygen Saturation (26908-0) 95 % Respiratory Rate (9279-1) 17 /min 05/28/2024 10:43 AM Body Weight (64899-1) 203.6 [lb_av ] Body Mass Index (92463-3) 30.95 kg/m2 05/28/2024 07:55 AM Temperature (8310-5) 98.1 [degF] Oxygen Saturation (88048-4) 94 % Respiratory Rate (9279-1) 18 /min 05/21/2024 10:42 AM Oxygen Saturation (88217-5) 95 % Respiratory Rate (9279-1) 17 /min Body Weight (91842-4) 202.4 [lb_av] Body Mass Index (66233-1) 30.77 kg/m2 05/15/2024 07:59 PM Oxygen Saturation (22765-3) 98 % Respiratory Rate (9279-1) 16 /min 05/14/2024 10:22 AM Body Weight (54615-5) 198.6 [lb_av ] Body Mass Index (77900-1) 30.19 kg/m2 05/14/2024 10:18 AM Oxygen Saturation (66872-0) 95 % Respiratory Rate (9279-1) 18 /min 05/07/2024 05:42 PM Body Weight (55542-7) 201.2 [lb_av ] Body Mass Index (40067-5) 30.59 kg/m2 05/07/2024 08:12 AM Oxygen Saturation (87960-4) 98 % Respiratory Rate (9279-1) 20 /min 05/06/2024 10:53 AM Body Weight (29931-1) 202 [lb_av] Body Mass Index (97701-2) 30.71 kg/m2 05/04/2024 11:36 AM Body Weight (11786-8) 201.4 [lb_av ] Body Mass Index (48016-1) 30.62 kg/m2 05/03/2024 12:09 PM Body Weight (72303-3) 200 [lb_av] Body Mass Index (66383-5) 30.41 kg/m2 05/02/2024 06:12 PM Body Weight (01792-0) 200.8 [lb_av ] Body Mass Index (25600-7) 30.53 kg/m2 04/30/2024 08:08 AM Body Weight (94256-5) 201 [lb_av] Body Mass Index (71365-7) 30.56 kg/m2 04/23/2024 07:36 AM Body Weight (15900-1) 203.8 [lb_av ] Body Mass Index (77131-1) 30.98 kg/m2 04/08/2021 11:56 AM Body Height [...] AM Temperature (8310-5) 98.9 [degF] Oxygen Saturation (80910-6) 96 % Respiratory Rate (9279-1) 19 /min [...] AM Temperature (8310-5) 98.2 [degF] Oxygen Saturation (04181-0) 96 % Respiratory Rate (9279-1) 20 /min [...] PM Temperature (8310-5) 98 [degF] Oxygen Saturation (45001-1) 93 % Respiratory Rate (9279-1) 19 /min Heart Rate (8867-4) 80 /min Blood Pressure Systolic (8480-6) 119 mm[Hg] Blood Pressure Diastolic (8462-4) 63 mm[Hg] 08/06/2024 12:34 PM Body Weight (76716-2) 188.2 [lb_av ] Body Mass Index (97450-2) 28.61 kg/m2 08/06/2024 07:23 AM Heart Rate (8867-4) 65 /min Blood Pressure Systolic (8480-6) 139 mm[Hg] Blood Pressure Diastolic (8462-4) 65 mm[Hg] 08/06/2024 05:12 AM Blood Pressure Systolic (8480-6) 1 47 mm[Hg] Blood Pressure Diastolic (8462-4) 74 mm[Hg] 08/05/2024 06:54 PM Blood Pressure Systolic (8480-6) 1 36 mm[Hg] Blood Pressure Diastolic (8462-4) 74 mm[Hg] 08/07/2024 04:28 PM Body Weight (76350-8) 188.5 [lb_av ] Body Mass Index (09812-3) 28.66 kg/m2 08/07/2024 04:26 PM Blood Pressure [...] 74 mm[Hg] 08/08/2024 05:00 PM Body Weight (67144-0) 191 [lb_av] Body Mass Index (17704-9) 29.04 kg/m2 08/08/2024 02:20 PM Blood Pressure [...] 66 mm[Hg] 08/09/2024 04:11 PM Body Weight (96736-0) 193.6 [lb_av ] Body Mass Index (05578-6) 29.43 kg/m2 08/10/2024 10:47 PM Blood Pressure [...] 62 mm[Hg] 08/13/2024 09:30 AM Body Weight (48992-3) 196 [lb_av] Body Mass Index (88041-3) 29.8 kg/m2 08/13/2024 07:32 AM Heart Rate (8867-4) 67 /min 08/13/2024 09:41 AM Temperature (8310-5) 98.9 [degF] Oxygen Saturation (21363-1) 94 % Respiratory Rate (9279-1) 18 /min [...] 74 mm[Hg] 08/15/2024 04:27 PM Body Weight (33577-3) 196.4 [lb_av ] Body Mass Index (07844-3) 29.86 kg/m2 08/16/2024 07:04 AM Blood Pressure Systolic (8480-6) 1 29 mm[Hg] Blood Pressure Diastolic (8462-4) 67 mm[Hg] 08/16/2024 01:42 PM Blood Pressure Systolic (8480-6) 1 15 mm[Hg] Blood Pressure Diastolic (8462-4) 63 mm[Hg] 08/15/2024 11:01 PM Blood Pressure Systolic (8480-6) 1 32 mm[Hg] Blood Pressure Diastolic (8462-4) 59 mm[Hg] 08/16/2024 09:38 AM Body Weight (09407-6) 193.2 [lb_av ] Body Mass Index (53177-1) 29.37 kg/m2 08/16/2024 09:46 PM Blood Pressure Systolic (8480-6) 1 32 mm[Hg] Blood Pressure Diastolic (8462-4) 67 mm[Hg] 08/17/2024 08:15 PM Blood Pressure Systolic (8480-6) 1 43 mm[Hg] Blood Pressure Diastolic (8462-4) 66 mm[Hg] 08/17/2024 07:43 AM Heart Rate (8867-4) 54 /min Blood Pressure Systolic (8480-6) 133 mm[Hg] Blood Pressure Diastolic (8462-4) 67 mm[Hg] 08/17/2024 01:28 PM Body Weight (30782-3) 193 [lb_av] Body Mass Index (44106-3) 29.34 kg/m2 08/18/2024 07:20 AM Heart Rate [...] 76 mm[Hg] 08/20/2024 09:41 AM Body Weight (73737-5) 190 [lb_av] Body Mass Index (61876-5) 28.89 kg/m2 08/20/2024 09:37 AM Temperature (8310-5) 97.8 [degF] Oxygen Saturation (80643-2) 94 % Respiratory Rate (9279-1) 17 /min [...] 66 mm[Hg] 08/27/2024 03:45 PM Body Weight (99211-2) 192.8 [lb_av ] Body Mass Index (26438-3) 29.31 kg/m2 08/27/2024 08:35 AM Respiratory Rate (9279-1) 17 /min 08/27/2024 08:34 AM Oxygen Saturation (45299-1) 98 % 08/27/2024 08:31 AM Temperature (8310-5) [...] 63 mm[Hg] 09/03/2024 11:05 AM Body Weight (58735-6) 191 [lb_av] Body Mass Index (50954-5) 29.04 kg/m2 09/03/2024 02:37 PM Blood Pressure Systolic (8480-6) 1 19 mm[Hg] Blood Pressure Diastolic (8462-4) 68 mm[Hg] 09/02/2024 09:13 PM Blood Pressure Systolic (8480-6) 1 28 mm[Hg] Blood Pressure Diastolic (8462-4) 71 mm[Hg] 09/03/2024 02:36 PM Temperature (8310-5) 98.3 [degF] Oxygen Saturation (42187-3) 97 % Respiratory Rate (9279-1) 18 /min [...] 60 /min 09/06/2024 02:26 PM Body Weight (90606-4) 188.8 [lb_av ] Body Mass Index (56142-9) 28.7 kg/m2 09/06/2024 05:25 AM Blood Pressure [...] PM Temperature (8310-5) 98.7 [degF] Oxygen Saturation (63231-6) 92 % Respiratory Rate (9279-1) 18 /min Heart Rate (8867-4) 44 /min Blood Pressure Systolic (8480-6) 117 mm[Hg] Blood Pressure Diastolic (8462-4) 59 mm[Hg] Body Weight (46693-8) 188.4 [lb_av] Body Mass Index (22130-3) 28.64 kg/m2 09/09/2024 06:54 PM Blood Pressure [...] 66 mm[Hg] 09/17/2024 11:14 AM Body Weight (44790-0) 188 [lb_av] Body Mass Index (86931-5) 28.58 kg/m2 09/17/2024 08:52 AM Temperature (8310-5) 97 [degF] Oxygen Saturation (15656-4) 90 % Respiratory Rate (9279-1) 18 /min [...] 80 mm[Hg] 09/24/2024 09:54 AM Body Weight (28476-7) 185.6 [lb_av ] Body Mass Index (09751-5) 28.22 kg/m2 09/24/2024 09:53 AM Temperature (8310-5) 98.9 [degF] Oxygen Saturation (07824-4) 94 % Respiratory Rate (9279-1) 16 /min [...] 74 mm[Hg] 10/01/2024 09:03 AM Body Weight (44897-8) 187.2 [lb_av ] Body Mass Index (82044-9) 28.46 kg/m2 10/01/2024 08:24 AM Temperature (8310-5) 97.2 [degF] Oxygen Saturation (62179-2) 95 % Respiratory Rate (9279-1) 16 /min [...] 81 mm[Hg] 10/04/2024 10:50 AM Body Weight (44692-1) 187.2 [lb_av ] Body Mass Index (12564-5) 28.46 kg/m2 10/04/2024 05:04 AM Heart Rate [...] 67 /min 10/08/2024 01:23 PM Body Weight (71941-7) 187 [lb_av] Body Mass Index (41535-2) 28.43 kg/m2 10/08/2024 11:29 AM Temperature (8310-5) 98.5 [degF] Oxygen Saturation (45005-7) 96 % Respiratory Rate (9279-1) 16 /min [...] 63 /min 10/15/2024 07:33 AM Body Weight (50151-8) 188.2 [lb_av ] Body Mass Index (47190-6) 28.61 kg/m2 10/15/2024 05:16 AM Blood Pressure [...] 84 mm[Hg] 10/22/2024 11:23 AM Body Weight (93635-5) 189 [lb_av] Body Mass Index (14539-5) 28.73 kg/m2 10/22/2024 10:42 AM Temperature (8310-5) 98.4 [degF] Oxygen Saturation (76358-1) 94 % Respiratory Rate (9279-1) 20 /min [...] PM Temperature (8310-5) 97.8 [degF] Oxygen Saturation (93998-4) 92 % Respiratory Rate (9279-1) 19 /min Heart Rate (8867-4) 42 /min Blood Pressure Systolic (8480-6) 101 mm[Hg] Blood Pressure Diastolic (8462-4) 50 mm[Hg] 10/28/2024 06:54 PM Blood Pressure Systolic (8480-6) 1 32 mm[Hg] Blood Pressure Diastolic (8462-4) 63 mm[Hg] 10/29/2024 05:24 AM Blood Pressure Systolic (8480-6) 1 38 mm[Hg] Blood Pressure Diastolic (8462-4) 54 mm[Hg] 10/29/2024 12:44 PM Body Weight (46329-6) 188 [lb_av] Body Mass Index (21666-5) 28.58 kg/m2 10/29/2024 11:00 AM Temperature (8310-5) 98 [degF] Oxygen Saturation (27821-3) 96 % Respiratory Rate (9279-1) 17 /min [...] 67 mm[Hg] 11/04/2024 05:17 PM Body Weight (96319-9) 187.8 [lb_av ] Body Mass Index (72166-7) 28.55 kg/m2 11/04/2024 11:47 AM Blood Pressure [...] PM Temperature (8310-5) 98 [degF] Oxygen Saturation (49723-1) 93 % Respiratory Rate (9279-1) 16 /min [...] AM Temperature (8310-5) 98.9 [degF] Oxygen Saturation (87417-3) 97 % Respiratory Rate (9279-1) 18 /min [...] PM Temperature (8310-5) 98.6 [degF] Oxygen Saturation (81547-3) 96 % Respiratory Rate (9279-1) 19 /min Heart Rate (8867-4) 92 /min Blood Pressure Systolic (8480-6) 132 mm[Hg] Blood Pressure Diastolic (8462-4) 47 mm[Hg] Body Height (8302-2) 68 [in_us] 11/23/2024 10:37 AM Temperature (8310-5) 98.4 [degF] Oxygen Saturation (29793-1) 97 % Respiratory Rate (9279-1) 17 /min Heart Rate (8867-4) 73 /min Blood Pressure Systolic (8480-6) 120 mm[Hg] Blood Pressure Diastolic (8462-4) 67 mm[Hg] 11/23/2024 08:04 PM Blood Pressure Systolic (8480-6) 1 41 mm[Hg] Blood Pressure Diastolic (8462-4) 78 mm[Hg] 11/23/2024 08:05 PM Temperature (8310-5) 99.2 [degF] Oxygen Saturation (87479-2) 95 % Respiratory Rate (9279-1) 21 /min Heart Rate (8867-4) 102 /min 11/24/2024 09:40 PM Temperature (8310-5) 97.7 [degF] Oxygen Saturation (47566-1) 94 % Respiratory Rate (9279-1) 16 /min Heart Rate (8867-4) 86 /min Blood Pressure Systolic (8480-6) 117 mm[Hg] Blood Pressure Diastolic (8462-4) 77 mm[Hg] 11/25/2024 04:42 AM Blood Pressure Systolic (8480-6) 1 24 mm[Hg] Blood Pressure Diastolic (8462-4) 64 mm[Hg] 11/25/2024 08:39 AM Temperature (8310-5) 97.5 [degF] Oxygen Saturation (37996-4) 97 % Respiratory Rate (9279-1) 14 /min [...] PM Temperature (8310-5) 98.3 [degF] Oxygen Saturation (08698-7) 91 % Respiratory Rate (9279-1) 15 /min [...] PM Temperature (8310-5) 97.1 [degF] Oxygen Saturation (74056-7) 96 % Respiratory Rate (9279-1) 16 /min Heart Rate (8867-4) 61 /min Blood Pressure Systolic (8480-6) 152 mm[Hg] Blood Pressure Diastolic (8462-4) 91 mm[Hg] 11/26/2024 07:07 PM Blood Pressure Systolic (8480-6) 9 8 mm[Hg] Blood Pressure Diastolic (8462-4) 64 mm[Hg] 11/26/2024 10:40 PM Temperature (8310-5) 97.3 [degF] Oxygen Saturation (95841-0) 93 % Respiratory Rate (9279-1) 16 /min Heart Rate (8867-4) 79 /min 11/27/2024 06:50 AM Blood Pressure Systolic (8480-6) 1 11 mm[Hg] Blood Pressure Diastolic (8462-4) 68 mm[Hg] 11/27/2024 05:34 PM Temperature (8310-5) 98.9 [degF] Oxygen Saturation (35298-3) 97 % Respiratory Rate (9279-1) 16 /min Heart Rate (8867-4) 81 /min Blood Pressure Systolic (8480-6) 111 mm[Hg] Blood Pressure Diastolic (8462-4) 68 mm[Hg] 11/27/2024 01:15 PM Blood Pressure Systolic (8480-6) 1 23 mm[Hg] Blood Pressure Diastolic (8462-4) 62 mm[Hg] 11/27/2024 08:00 PM Temperature (8310-5) 98.2 [degF] Oxygen Saturation (20553-8) 92 % Respiratory Rate (9279-1) 15 /min Heart Rate (8867-4) 89 /min Blood Pressure Systolic (8480-6) 107 mm[Hg] Blood Pressure Diastolic (8462-4) 67 mm[Hg] 11/28/2024 12:27 PM Oxygen Saturation (05205-0) 94 % Respiratory Rate (9279-1) 19 /min Heart Rate (8867-4) 92 /min Blood Pressure Systolic (8480-6) 102 mm[Hg] Blood Pressure Diastolic (8462-4) 58 mm[Hg] 11/28/2024 12:26 PM Temperature (8310-5) 98.5 [degF] 11/28/2024 10:23 PM Blood Pressure Systolic (8480-6) 1 01 mm[Hg] Blood Pressure Diastolic (8462-4) 59 mm[Hg] 11/28/2024 10:21 PM Temperature (8310-5) 98.2 [degF] Oxygen Saturation (16851-0) 95 % Respiratory Rate (9279-1) 18 /min Heart Rate (8867-4) 80 /min 11/28/2024 06:43 PM Blood Pressure Systolic (8480-6) 1 08 mm[Hg] Blood Pressure Diastolic (8462-4) 54 mm[Hg] 11/29/2024 07:56 AM Temperature (8310-5) 98 [degF] Oxygen Saturation (34813-5) 94 % Respiratory Rate (9279-1) 19 /min Heart Rate (8867-4) 84 /min Blood Pressure Systolic (8480-6) 124 mm[Hg] Blood Pressure Diastolic (8462-4) 86 mm[Hg] 11/29/2024 08:47 PM Temperature (8310-5) 98.2 [degF] Oxygen Saturation (68586-7) 94 % Respiratory Rate (9279-1) 17 /min Heart Rate (8867-4) 78 /min 11/30/2024 05:11 AM Blood Pressure Systolic (8480-6) 1 27 mm[Hg] Blood Pressure Diastolic (8462-4) 72 mm[Hg] 11/29/2024 10:23 PM Blood Pressure Systolic (8480-6) 1 27 mm[Hg] Blood Pressure Diastolic (8462-4) 61 mm[Hg] 11/30/2024 08:05 AM Temperature (8310-5) 98.1 [degF] Oxygen Saturation (22065-6) 93 % Respiratory Rate (9279-1) 20 /min [...] AM Temperature (8310-5) 97.6 [degF] Oxygen Saturation (51994-3) 94 % Respiratory Rate (9279-1) 20 /min [...] AM Temperature (8310-5) 97.8 [degF] Oxygen Saturation (46784-4) 95 % Respiratory Rate (9279-1) 19 /min [...] PM Temperature (8310-5) 97.6 [degF] Oxygen Saturation (86936-8) 91 % Respiratory Rate (9279-1) 15 /min [...] PM Temperature (8310-5) 98.7 [degF] Oxygen Saturation (54802-1) 98 % Respiratory Rate (9279-1) 16 /min [...] PM Temperature (8310-5) 97.4 [degF] Oxygen Saturation (49240-6) 98 % Respiratory Rate (9279-1) 16 /min Heart Rate (8867-4) 74 /min Blood Pressure Systolic (8480-6) 112 mm[Hg] Blood Pressure Diastolic (8462-4) 68 mm[Hg] 12/03/2024 09:05 AM Temperature (8310-5) 97.7 [degF] Oxygen Saturation (69752-7) 94 % Respiratory Rate (9279-1) 16 /min Heart Rate (8867-4) 75 /min Blood Pressure Systolic (8480-6) 104 mm[Hg] Blood Pressure Diastolic (8462-4) 63 mm[Hg] 12/03/2024 07:34 AM Blood Pressure Systolic (8480-6) 1 04 mm[Hg] Blood Pressure Diastolic (8462-4) 63 mm[Hg] 12/03/2024 11:16 AM Body Weight (30748-1) 179.6 [lb_av ] Body Mass Index (25368-4) 27.31 kg/m2 12/03/2024 02:45 PM Blood Pressure Systolic (8480-6) 9 8 mm[Hg] Blood Pressure Diastolic (8462-4) 56 mm[Hg] 12/03/2024 11:26 PM Temperature (8310-5) 97.4 [degF] Oxygen Saturation (75605-1) 98 % Respiratory Rate (9279-1) 18 /min Heart Rate (8867-4) 55 /min Blood Pressure Systolic (8480-6) 113 mm[Hg] Blood Pressure Diastolic (8462-4) 64 mm[Hg] 12/03/2024 06:49 PM Blood Pressure Systolic (8480-6) 1 13 mm[Hg] Blood Pressure Diastolic (8462-4) 64 mm[Hg] 12/04/2024 08:26 AM Body Weight (89152-6) 179.4 [lb_av ] Body Mass Index (01553-7) 27.27 kg/m2 12/04/2024 08:25 AM Temperature (8310-5) 97.6 [degF] Oxygen Saturation (28616-8) 94 % Respiratory Rate (9279-1) 18 /min Heart Rate (8867-4) 76 /min Blood Pressure Systolic (8480-6) 115 mm[Hg] Blood Pressure Diastolic (8462-4) 68 mm[Hg] 12/04/2024 01:35 PM Blood Pressure Systolic (8480-6) 1 47 mm[Hg] Blood Pressure Diastolic (8462-4) 86 mm[Hg] 12/04/2024 07:19 PM Temperature (8310-5) 98.4 [degF] Oxygen Saturation (57360-2) 92 % Respiratory Rate (9279-1) 16 /min Heart Rate (8867-4) 64 /min 12/04/2024 06:24 PM Blood Pressure Systolic (8480-6) 1 47 mm[Hg] Blood Pressure Diastolic (8462-4) 94 mm[Hg] 12/04/2024 10:07 PM Blood Pressure Systolic (8480-6) 1 28 mm[Hg] Blood Pressure Diastolic (8462-4) 78 mm[Hg] 12/05/2024 06:34 AM Temperature (8310-5) 98.3 [degF] Oxygen Saturation (43868-1) 93 % Respiratory Rate (9279-1) 18 /min Heart Rate (8867-4) 65 /min Blood Pressure Systolic (8480-6) 102 mm[Hg] Blood Pressure Diastolic (8462-4) 67 mm[Hg] 12/05/2024 04:36 AM Blood Pressure Systolic (8480-6) 1 27 mm[Hg] Blood Pressure Diastolic (8462-4) 76 mm[Hg] 12/05/2024 01:34 PM Blood Pressure Systolic (8480-6) 1 10 mm[Hg] Blood Pressure Diastolic (8462-4) 71 mm[Hg] 02/05/2025 03:00 PM Body Weight (35215-9) 157.4 [lb_av ] Body Mass Index (08401-4) 23.93 kg/m2 04/08/2025 03:56 PM Body Weight (49194-3) 156.4 [lb_av ] Body Mass Index (06278-6) 23.78 kg/m2 04/10/2025 10:47 AM Temperature (8310-5) 97.5 [degF] Oxygen Saturation (45366-5) 97 % Respiratory Rate (9279-1) 16 /min Heart Rate (8867-4) 91 /min Blood Pressure Systolic (8480-6) 140 mm[Hg] Blood Pressure Diastolic (8462-4) 73 mm[Hg] 02/07/2025 05:00 PM Body Weight (96420-9) 159.7 [lb_av ] Body Mass Index (43607-7) 24.28 kg/m2 04/06/2025 09:18 AM Temperature (8310-5) 98.4 [degF] Oxygen Saturation (38464-0) 94 % Respiratory Rate (9279-1) 20 /min Heart Rate (8867-4) 84 /min Blood Pressure Systolic (8480-6) 134 mm[Hg] Blood Pressure Diastolic (8462-4) 64 mm[Hg] 01/27/2025 09:30 AM Body Weight (25232-1) 156.8 [lb_av ] Body Mass Index (70174-8) 23.84 kg/m2 04/04/2025 04:13 PM Body Weight (20341-1) 155.4 [lb_av ] Body Mass Index (47695-5) 23.63 kg/m2 04/05/2025 11:47 PM Temperature (8310-5) 97.1 [degF] Oxygen Saturation (61892-8) 95 % Respiratory Rate (9279-1) 18 /min Heart Rate (8867-4) 77 /min Blood Pressure Systolic (8480-6) 129 mm[Hg] Blood Pressure Diastolic (8462-4) 75 mm[Hg] 04/08/2025 10:34 AM Temperature (8310-5) 98.4 [degF] Oxygen Saturation (94537-0) 98 % Respiratory Rate (9279-1) 18 /min Heart Rate (8867-4) 99 /min Blood Pressure Systolic (8480-6) 162 mm[Hg] Blood Pressure Diastolic (8462-4) 87 mm[Hg] 04/07/2025 08:02 AM Temperature (8310-5) 97.4 [degF] Oxygen Saturation (37405-3) 99 % Respiratory Rate (9279-1) 15 /min Heart Rate (8867-4) 91 /min Blood Pressure Systolic (8480-6) 130 mm[Hg] Blood Pressure Diastolic (8462-4) 85 mm[Hg] 04/06/2025 10:23 PM Temperature (8310-5) 97.6 [degF] Oxygen Saturation (34532-0) 98 % Respiratory Rate (9279-1) 16 /min Heart Rate (8867-4) 81 /min Blood Pressure Systolic (8480-6) 165 mm[Hg] Blood Pressure Diastolic (8462-4) 85 mm[Hg] 03/06/2025 08:06 AM Body Weight (66701-8) 155.6 [lb_av ] Body Mass Index (96472-7) 23.66 kg/m2 04/08/2025 08:56 PM Temperature (8310-5) 97.4 [degF] Oxygen Saturation (66620-2) 95 % Respiratory Rate (9279-1) 15 /min Heart Rate (8867-4) 99 /min Blood Pressure Systolic (8480-6) 117 mm[Hg] Blood Pressure Diastolic (8462-4) 71 mm[Hg] 04/08/2025 12:24 AM Temperature (8310-5) 98.6 [degF] Oxygen Saturation (71642-7) 97 % Respiratory Rate (9279-1) 16 /min Heart Rate (8867-4) 106 /min Blood Pressure Systolic (8480-6) 129 mm[Hg] Blood Pressure Diastolic (8462-4) 82 mm[Hg] 02/18/2025 12:05 PM Body Weight (29787-4) 157.2 [lb_av ] Body Mass Index (74545-1) 23.9 kg/m2 02/06/2025 03:38 PM Body Weight (64408-9) 162 [lb_av] Body Mass Index (78730-9) 24.63 kg/m2 02/03/2025 09:11 AM Body Weight (88353-3) 157.9 [lb_av ] Body Mass Index (50738-1) 24.01 kg/m2 04/05/2025 04:46 PM Body Weight (09688-7) 155 [lb_av] Body Mass Index (76302-2) 23.57 kg/m2 12/09/2024 06:30 PM Body Height (8302-2) 68 [in_us] 01/25/2025 05:50 PM Body Weight (74403-2) 151 [lb_av] Body Mass Index (65826-4) 22.96 kg/m2 01/12/2025 03:15 PM Body Weight (45232-2) 163.6 [lb_av ] Body Mass Index (10965-4) 24.87 kg/m2 04/09/2025 09:42 PM Temperature (8310-5) 97.7 [degF] Oxygen Saturation (18638-7) 96 % Respiratory Rate (9279-1) 20 /min Heart Rate (8867-4) 76 /min Blood Pressure Systolic (8480-6) 129 mm[Hg] Blood Pressure Diastolic (8462-4) 84 mm[Hg] 04/09/2025 11:24 AM Temperature (8310-5) 98 [degF] Oxygen Saturation (36317-3) 98 % Respiratory Rate (9279-1) 28 /min Heart Rate (8867-4) 92 /min Blood Pressure Systolic (8480-6) 136 mm[Hg] Blood Pressure Diastolic (8462-4) 82 mm[Hg] 04/06/2025 03:03 PM Body Weight (65858-9) 159 [lb_av] Body Mass Index (85758-5) 24.17 kg/m2 04/10/2025 09:40 PM Temperature (8310-5) 98.3 [degF] Oxygen Saturation (53232-1) 96 % Respiratory Rate (9279-1) 20 /min Heart Rate (8867-4) 77 /min Blood Pressure Systolic (8480-6) 128 mm[Hg] Blood Pressure Diastolic (8462-4) 69 mm[Hg] 04/11/2025 05:11 AM Temperature (8310-5) 97.4 [degF] Oxygen Saturation (22304-5) 95 % Respiratory Rate (9279-1) 15 /min Heart Rate (8867-4) 110 /min Blood Pressure Systolic (8480-6) 157 mm[Hg] Blood Pressure Diastolic (8462-4) 96 mm[Hg] 04/11/2025 11:41 PM Temperature (8310-5) 97.7 [degF] Oxygen Saturation (84437-3) 97 % Respiratory Rate (9279-1) 17 /min Heart Rate (8867-4) 85 /min Blood Pressure Systolic (8480-6) 143 mm[Hg] Blood Pressure Diastolic (8462-4) 82 mm[Hg] 04/12/2025 07:00 AM Temperature (8310-5) 96.3 [degF] Oxygen Saturation (95326-3) 99 % Respiratory Rate (9279-1) 18 /min Heart Rate (8867-4) 92 /min Blood Pressure Systolic (8480-6) 153 mm[Hg] Blood Pressure Diastolic (8462-4) 88 mm[Hg] 04/13/2025 01:00 AM Temperature (8310-5) 97 [degF] Oxygen Saturation (85805-1) 97 % Respiratory Rate (9279-1) 19 /min Heart Rate (8867-4) 79 /min Blood Pressure Systolic (8480-6) 142 mm[Hg] Blood Pressure Diastolic (8462-4) 76 mm[Hg] 04/13/2025 09:29 AM Temperature (8310-5) 97.1 [degF] Oxygen Saturation (20733-4) 94 % Respiratory Rate (9279-1) 16 /min Heart Rate (8867-4) 89 /min Blood Pressure Systolic (8480-6) 135 mm[Hg] Blood Pressure Diastolic (8462-4) 71 mm[Hg] 04/13/2025 08:52 PM Temperature (8310-5) 97.4 [degF] Oxygen Saturation (74575-2) 95 % Respiratory Rate (9279-1) 16 /min Heart Rate (8867-4) 98 /min Blood Pressure Systolic (8480-6) 135 mm[Hg] Blood Pressure Diastolic (8462-4) 80 mm[Hg] 04/14/2025 08:53 AM Temperature (8310-5) 97.9 [degF] Oxygen Saturation (61015-2) 96 % Respiratory Rate (9279-1) 16 /min Heart Rate (8867-4) 86 /min Blood Pressure Systolic (8480-6) 155 mm[Hg] Blood Pressure Diastolic (8462-4) 87 mm[Hg] 04/14/2025 07:50 PM Temperature (8310-5) 98.1 [degF] Oxygen Saturation (00408-9) 97 % Respiratory Rate (9279-1) 15 /min Heart Rate (8867-4) 97 /min Blood Pressure Systolic (8480-6) 142 mm[Hg] Blood Pressure Diastolic (8462-4) 78 mm[Hg] 04/15/2025 09:27 AM Temperature (8310-5) 97.6 [degF] Oxygen Saturation (19123-4) 99 % Respiratory Rate (9279-1) 16 /min Heart Rate (8867-4) 85 /min Blood Pressure Systolic (8480-6) 139 mm[Hg] Blood Pressure Diastolic (8462-4) 88 mm[Hg] 04/15/2025 03:17 PM Body Weight (25093-2) 145.6 [lb_av ] Body Mass Index (10436-8) 22.14 kg/m2 04/15/2025 09:53 PM Temperature (8310-5) 97.4 [degF] Oxygen Saturation (89737-8) 97 % Respiratory Rate (9279-1) 15 /min Heart Rate (8867-4) 91 /min Blood Pressure Systolic (8480-6) 136 mm[Hg] Blood Pressure Diastolic (8462-4) 79 mm[Hg] 04/16/2025 06:37 PM Temperature (8310-5) 97.8 [degF] Oxygen Saturation (24504-2) 98 % Respiratory Rate (9279-1) 16 /min Heart Rate (8867-4) 92 /min Blood Pressure Systolic (8480-6) 165 mm[Hg] Blood Pressure Diastolic (8462-4) 91 mm[Hg] 04/16/2025 05:47 PM Temperature (8310-5) 98.2 [degF] Oxygen Saturation (46414-7) 99 % Respiratory Rate (9279-1) 15 /min Heart Rate (8867-4) 85 /min Blood Pressure Systolic (8480-6) 142 mm[Hg] Blood Pressure Diastolic (8462-4) 88 mm[Hg] 04/17/2025 08:09 AM Temperature (8310-5) 97.3 [degF] Oxygen Saturation (68731-3) 98 % Respiratory Rate (9279-1) 18 /min Heart Rate (8867-4) 87 /min Blood Pressure Systolic (8480-6) 158 mm[Hg] Blood Pressure Diastolic (8462-4) 85 mm[Hg] 04/18/2025 12:09 AM Temperature (8310-5) 98.4 [degF] Oxygen Saturation (36458-4) 97 % Respiratory Rate (9279-1) 17 /min Heart Rate (8867-4) 77 /min Blood Pressure Systolic (8480-6) 142 mm[Hg] Blood Pressure Diastolic (8462-4) 81 mm[Hg] 04/18/2025 10:12 AM Temperature (8310-5) 97.6 [degF] Oxygen Saturation (50797-4) 98 % Respiratory Rate (9279-1) 14 /min Heart Rate (8867-4) 83 /min Blood Pressure Systolic (8480-6) 147 mm[Hg] Blood Pressure Diastolic (8462-4) 86 mm[Hg] 04/19/2025 12:47 AM Temperature (8310-5) 98.5 [degF] Oxygen Saturation (46969-4) 96 % Respiratory Rate (9279-1) 18 /min Heart Rate (8867-4) 77 /min Blood Pressure Systolic (8480-6) 139 mm[Hg] Blood Pressure Diastolic (8462-4) 76 mm[Hg] 04/19/2025 10:00 AM Temperature (8310-5) 96.3 [degF] Oxygen Saturation (90838-9) 99 % Respiratory Rate (9279-1) 17 /min Heart Rate (8867-4) 91 /min Blood Pressure Systolic (8480-6) 104 mm[Hg] Blood Pressure Diastolic (8462-4) 80 mm[Hg] 04/20/2025 12:37 AM Temperature (8310-5) 97.5 [degF] Oxygen Saturation (66939-3) 98 % Respiratory Rate (9279-1) 18 /min Heart Rate (8867-4) 76 /min Blood Pressure Systolic (8480-6) 126 mm[Hg] Blood Pressure Diastolic (8462-4) 75 mm[Hg] 04/20/2025 09:33 PM Temperature (8310-5) 96.7 [degF] Oxygen Saturation (38412-7) 97 % Respiratory Rate (9279-1) 16 /min Heart Rate (8867-4) 84 /min Blood Pressure Systolic (8480-6) 152 mm[Hg] Blood Pressure Diastolic (8462-4) 88 mm[Hg] 04/21/2025 09:45 AM Temperature (8310-5) 98.4 [degF] Oxygen Saturation (53388-6) 99 % Respiratory Rate (9279-1) 17 /min Heart Rate (8867-4) 76 /min Blood Pressure Systolic (8480-6) 164 mm[Hg] Blood Pressure Diastolic (8462-4) 63 mm[Hg] 04/21/2025 09:11 PM Temperature (8310-5) 97 [degF] Oxygen Saturation (81769-8) 97 % Respiratory Rate (9279-1) 16 /min Heart Rate (8867-4) 98 /min Blood Pressure Systolic (8480-6) 155 mm[Hg] Blood Pressure Diastolic (8462-4) 98 mm[Hg] 04/22/2025 10:13 AM Temperature (8310-5) 97.7 [degF] Oxygen Saturation (85865-7) 98 % Respiratory Rate (9279-1) 17 /min Heart Rate (8867-4) 108 /min Blood Pressure Systolic (8480-6) 147 mm[Hg] Blood Pressure Diastolic (8462-4) 95 mm[Hg] 04/29/2025 11:42 PM Temperature (8310-5) 97.9 [degF] Oxygen Saturation (50886-9) 96 % Respiratory Rate (9279-1) 20 /min Heart Rate (8867-4) 70 /min Blood Pressure Systolic (8480-6) 151 mm[Hg] Blood Pressure Diastolic (8462-4) 93 mm[Hg] 04/29/2025 06:43 PM Temperature (8310-5) 97.9 [degF] Oxygen Saturation (81866-9) 96 % Respiratory Rate (9279-1) 20 /min Heart Rate (8867-4) 70 /min Blood Pressure Systolic (8480-6) 138 mm[Hg] Blood Pressure Diastolic (8462-4) 93 mm[Hg] 04/30/2025 03:18 AM Body Weight (42385-9) 155.8 [lb_av ] Body Mass Index (57897-0) 23.69 kg/m2 04/30/2025 12:57 PM Body Height (8302-2) 68 [in_us] 04/30/2025 12:28 PM Temperature (8310-5) 98.7 [degF] Oxygen Saturation (18859-4) 97 % Respiratory Rate (9279-1) 16 /min Heart Rate (8867-4) 92 /min Blood Pressure Systolic (8480-6) 172 mm[Hg] Blood Pressure Diastolic (8462-4) 97 mm[Hg] 04/30/2025 12:27 PM Body Weight (30496-3) 155.6 [lb_av ] Body Mass Index (55905-9) 23.66 kg/m2 04/30/2025 10:57 PM Temperature (8310-5) 99.7 [degF] Oxygen Saturation (87220-0) 98 % Respiratory Rate (9279-1) 18 /min Heart Rate (8867-4) 87 /min Blood Pressure Systolic (8480-6) 142 mm[Hg] Blood Pressure Diastolic (8462-4) 76 mm[Hg] 05/01/2025 08:52 AM Temperature (8310-5) 98.7 [degF] Oxygen Saturation (52104-3) 91 % Respiratory Rate (9279-1) 14 /min Heart Rate (8867-4) 84 /min Blood Pressure Systolic (8480-6) 167 mm[Hg] Blood Pressure Diastolic (8462-4) 98 mm[Hg] 05/01/2025 12:15 PM Oxygen Saturation (52285-1) 91 % 05/01/2025 02:37 PM Body Weight (67305-0) 155.2 [lb_av ] Body Mass Index (66863-4) 23.6 kg/m2 05/01/2025 11:53 PM Oxygen Saturation (29841-5) 94 % 05/01/2025 11:54 PM Temperature (8310-5) 99.2 [degF] Respiratory Rate (9279-1) 18 /min Heart Rate (8867-4) 79 /min Blood Pressure Systolic (8480-6) 148 mm[Hg] Blood Pressure Diastolic (8462-4) 79 mm[Hg] 05/02/2025 05:06 PM Body Weight (75977-4) 155 [lb_av] Body Mass Index (56149-0) 23.57 kg/m2 05/02/2025 10:08 AM Temperature (8310-5) 98.9 [degF] Oxygen Saturation (67205-7) 99 % Respiratory Rate (9279-1) 18 /min Heart Rate (8867-4) 85 /min Blood Pressure Systolic (8480-6) 150 mm[Hg] Blood Pressure Diastolic (8462-4) 81 mm[Hg] 05/02/2025 09:46 PM Temperature (8310-5) 98.1 [degF] Oxygen Saturation (29194-9) 98 % Respiratory Rate (9279-1) 19 /min Heart Rate (8867-4) 79 /min Blood Pressure Systolic (8480-6) 138 mm[Hg] Blood Pressure Diastolic (8462-4) 77 mm[Hg] 05/03/2025 08:33 AM Temperature (8310-5) 97.9 [degF] Oxygen Saturation (81193-3) 99 % Respiratory Rate (9279-1) 18 /min Heart Rate (8867-4) 86 /min Blood Pressure Systolic (8480-6) 155 mm[Hg] Blood Pressure Diastolic (8462-4) 93 mm[Hg] 05/03/2025 03:06 PM Body Weight (59618-6) 156.4 [lb_av ] Body Mass Index (85094-5) 23.78 kg/m2 05/03/2025 09:13 PM Oxygen Saturation (53117-4) 97 % 05/03/2025 09:14 PM Temperature (8310-5) 98.2 [degF] Respiratory Rate (9279-1) 18 /min Heart Rate (8867-4) 79 /min Blood Pressure Systolic (8480-6) 147 mm[Hg] Blood Pressure Diastolic (8462-4) 81 mm[Hg] 05/04/2025 10:50 AM Temperature (8310-5) 97.8 [degF] Oxygen Saturation (23470-9) 99 % Respiratory Rate (9279-1) 18 /min Heart Rate (8867-4) 90 /min Blood Pressure Systolic (8480-6) 157 mm[Hg] Blood Pressure Diastolic (8462-4) 71 mm[Hg] 05/04/2025 07:25 PM Temperature (8310-5) 97.6 [degF] Oxygen Saturation (02672-7) 95 % Respiratory Rate (9279-1) 16 /min Heart Rate (8867-4) 64 /min Blood Pressure Systolic (8480-6) 140 mm[Hg] Blood Pressure Diastolic (8462-4) 90 mm[Hg] 05/05/2025 09:08 AM Temperature (8310-5) 97.6 [degF] Oxygen Saturation (70156-1) 96 % Respiratory Rate (9279-1) 14 /min Heart Rate (8867-4) 101 /min Blood Pressure Systolic (8480-6) 103 mm[Hg] Blood Pressure Diastolic (8462-4) 58 mm[Hg] 05/06/2025 02:27 AM Temperature (8310-5) 98.7 [degF] Respiratory Rate (9279-1) 18 /min Heart Rate (8867-4) 78 /min Blood Pressure Systolic (8480-6) 125 mm[Hg] Blood Pressure Diastolic (8462-4) 82 mm[Hg] 05/06/2025 02:26 AM Oxygen Saturation (08118-2) 97 % 05/06/2025 09:26 AM Temperature (8310-5) 96 [degF] Respiratory Rate (9279-1) 16 /min Heart Rate (8867-4) 71 /min 05/06/2025 09:22 AM Temperature (8310-5) 96 [degF] Oxygen Saturation (92936-1) 96 % Respiratory Rate (9279-1) 16 /min Heart Rate (8867-4) 71 /min Blood Pressure Systolic (8480-6) 120 mm[Hg] Blood Pressure Diastolic (8462-4) 78 mm[Hg] 05/06/2025 10:37 PM Temperature (8310-5) 96.7 [degF] Oxygen Saturation (27484-2) 98 % Respiratory Rate (9279-1) 17 /min Heart Rate (8867-4) 93 /min Blood Pressure Systolic (8480-6) 148 mm[Hg] Blood Pressure Diastolic (8462-4) 93 mm[Hg] 05/07/2025 03:47 PM Body Weight (39450-4) 155.8 [lb_av ] Body Mass Index (87276-7) 23.69 kg/m2 05/07/2025 10:26 AM Temperature (8310-5) 97.8 [degF] Oxygen Saturation (31753-5) 96 % Respiratory Rate (9279-1) 14 /min Heart Rate (8867-4) 91 /min Blood Pressure Systolic (8480-6) 166 mm[Hg] Blood Pressure Diastolic (8462-4) 99 mm[Hg] 05/07/2025 09:39 PM Temperature (8310-5) 97.8 [degF] Oxygen Saturation (56025-3) 95 % Respiratory Rate (9279-1) 17 /min Heart Rate (8867-4) 79 /min Blood Pressure Systolic (8480-6) 130 mm[Hg] Blood Pressure Diastolic (8462-4) 62 mm[Hg] 05/08/2025 09:36 AM Temperature (8310-5) 97.5 [degF] Oxygen Saturation (82682-4) 99 % Respiratory Rate (9279-1) 10 /min Heart Rate (8867-4) 112 /min Blood Pressure Systolic (8480-6) 144 mm[Hg] Blood Pressure Diastolic (8462-4) 89 mm[Hg] 05/08/2025 09:16 PM Temperature (8310-5) 98 [degF] Oxygen Saturation (72124-3) 97 % Respiratory Rate (9279-1) 17 /min Heart Rate (8867-4) 87 /min Blood Pressure Systolic (8480-6) 139 mm[Hg] Blood Pressure Diastolic (8462-4) 76 mm[Hg] 05/09/2025 11:50 AM Temperature (8310-5) 97.3 [degF] Oxygen Saturation (78451-3) 96 % Respiratory Rate (9279-1) 17 /min Heart Rate (8867-4) 107 /min Blood Pressure Systolic (8480-6) 150 mm[Hg] Blood Pressure Diastolic (8462-4) 99 mm[Hg] 05/09/2025 03:42 PM Body Weight (60883-9) 156.1 [lb_av ] Body Mass Index (40201-1) 23.73 kg/m2 05/09/2025 10:39 PM Oxygen Saturation (65186-7) 95 % 05/09/2025 11:11 PM Temperature (8310-5) 97.8 [degF] Respiratory Rate (9279-1) 19 /min Heart Rate (8867-4) 88 /min Blood Pressure Systolic (8480-6) 134 mm[Hg] Blood Pressure Diastolic (8462-4) 78 mm[Hg] 05/10/2025 11:41 AM Body Weight (45773-3) 155.2 [lb_av ] Body Mass Index (45201-6) 23.6 kg/m2 05/11/2025 12:17 AM Temperature (8310-5) 97.5 [degF] Respiratory Rate (9279-1) 18 /min Heart Rate (8867-4) 81 /min Blood Pressure Systolic (8480-6) 139 mm[Hg] Blood Pressure Diastolic (8462-4) 81 mm[Hg] 05/10/2025 11:27 PM Oxygen Saturation (90337-6) 97 % 05/10/2025 07:27 PM Temperature (8310-5) 97.2 [degF] Oxygen Saturation (50564-3) 98 % Respiratory Rate (9279-1) 19 /min Heart Rate (8867-4) 76 /min Blood Pressure Systolic (8480-6) 164 mm[Hg] Blood Pressure Diastolic (8462-4) 91 mm[Hg] 05/11/2025 10:09 AM Temperature (8310-5) 97.5 [degF] Oxygen Saturation (73985-6) 98 % Respiratory Rate (9279-1) 14 /min Heart Rate (8867-4) 88 /min Blood Pressure Systolic (8480-6) 155 mm[Hg] Blood Pressure Diastolic (8462-4) 91 mm[Hg] 05/11/2025 07:48 PM Temperature (8310-5) 98.1 [degF] Oxygen Saturation (54068-3) 98 % Respiratory Rate (9279-1) 15 /min Heart Rate (8867-4) 82 /min Blood Pressure Systolic (8480-6) 115 mm[Hg] Blood Pressure Diastolic (8462-4) 74 mm[Hg] Social History Element Description Date Comment Tobacco smoking status WAIS Never smoker Encounters Type CPT Code Date [...]
[2025-05-12 11:12] LABS: Alanine Aminotransferase 8 U/L (0-41); Albumin Level 3.2 g/dL (3.5-5.2); Alkaline Phosphatase 195 U/L (40-130); Anion Gap 17.3 (5-19); Aspartate Amino Transferase 11 U/L (0-40); Blood Urea Nitrogen 25 mg/dL (8-23); Calcium 9.3 mg/dL (8.5-10.5); Carbon Dioxide 27 mmol/L (22-29); Chloride 95 mmol/L (98-107); Creatinine Clr Calc Pharmacy 61.2438; Globulin 4.8 g/dL (1.3-4.6); Glucose 130 mg/dL (65-115); Osmolality Calculated 284 mOsm/kg (285-295); Potassium 5.3 mmol/L (3.5-5.1); Sodium 134 mmol/L (136-145); Total Protein 8.0 g/dL (6.6-8.7)
[2025-05-12 11:16] LABS: Glucose Urine UA Negative (Normal); Nitrate Urine Positive (Negative); Specific Gravity, Urine 1.017 (1.005-1.030)
--- NOTE | 2025-05-12 11:26 | ED_ITS ---
HPI - Weakness 2 General: Chief complaint: Weakness Stated complaint: uncontrolled pain History of Present Illness: 75-year-old male presents emergency room with report of uncontrolled pain patient is obtunded evidently he is at his baseline. Any movement or palpation of the abdomen he cries out in pain. In November of this year patient had a comminuted acetabular fracture for which she was transferred to [place]. He underwent surgery. More recently he had a gallbladder surgery reportedly had a drain left in place I do not have any documentation or history on this. He does have a chronic indwelling Regan and he has a drain in his right flank although it does not appear to be positioned correctly to be cholecystectomy drain. Patient is obtunded and other than crying out of pain and cannot really provide much further history. Regan catheter is significant on his sediment looks as if it is partially occluded. Related Data Home Medications ?Medication ?Instructions ?Recorded ?Confirmed tramadol 50 mg tablet 50 mg PO Q6H PRN Pain 05/12/25 acetaminophen 325 mg tablet 650 mg PO Q6H PRN PAIN OR FEVER 07/08/23 05/12/25 apixaban 5 mg tablet (Eliquis) 5 mg PO BID 07/08/23 insulin aspart U-100 100 unit/mL See Rx Instructions . Route .COMPLEX 01/24/24 05/12/25 (3 mL) subcutaneous pen (Novolog FlexPen U-100 Insulin aspart) amlodipine 5 mg tablet 5 mg PO DAILY 11/18/2404/23 Held on 04/03/25. Instructions: hold till seen by pcp nystatin 100,000 unit/gram topical See Rx Instructions .Route .COMPLEX 04/01/25 05/12/25 cream silver sulfadiazine 1 % topical See Rx Instructions .R oute .COMPLEX 04/01/25 05/12/25 cream cyanocobalamin (vitamin B-12) 250 250 mcg PO DAILY 02/2705/12/25 mcg tablet (Vitamin B-12) vit A 300 mcg-C 200 mg-E 27 1 tab PO DAILY 05/12/25 mg-lutein 2 mg and minerals tablet (I-Celine) Previous Rx's ?Medication ?Instructions ?Recorded ondansetron 4 mg disintegrating 4 mg PO Q6H PRN nausea and 11/24/24 tablet vomiting #14 tabs lisinopril 5 mg tablet 2.5 mg (1/2 x 5 mg) PO DAILY #30 04/03/25 tabs metoprolol tartrate 25 mg tablet 50 mg (2 x 25 mg) PO BID@0900,2100 04/03/25 #90 tabs Allergies Allergy/AdvReac Type Severity Reaction Status Date / Time Penicillins Allergy ALGY-Rash Verified 12/21/24 11:05 PFSH ED 2 PFSH: Medical History (Updated 05/12/25 @ 17:35 by Bucky Walker DO) Type 2 diabetes mellitus Complicated UTI (urinary tract infection) Fracture of left inferior pubic ramus Closed bilateral acetabular fractures Chronic indwelling Regan catheter Atrial fibrillation with rapid ventricular response Peripheral neuropathy CAD (coronary artery disease) Depression Chronic anticoagulation CVA (cerebral vascular accident) 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 Stage 2 chronic kidney disease Baseline creatinine has improved since placement of Regan catheter. Down to 1.1 Poorly controlled type 2 diabetes mellitus Dyslipidemia DVT (deep venous thrombosis) HTN (hypertension) Polycythemia Atrial fibrillation Surgical History (Updated 05/12/25 @ 17:35 by Bucky Walker DO) H/O insertion of cholecystostomy tube S/P ORIF (open reduction internal fixation) fracture No pertinent past surgical history Family History Other CAD (coronary artery disease) Cancer Social History Smoking and tobacco/nicotine status: former use of tobacco/nicotine Quit status (tobacco/nicotine): has quit using Year quit tobacco: 2010 Former quit date comment: Due to stroke Alcohol intake: former Year of sobriety/quit date alcohol: 2010 Former alcohol use details: Never heavy drinker Substance/Drug Use: never Additional social history: Next of kin is his brother Michael Mcintosh who is 69 years old patient wants full CODE STATUS Caregiver/support person: No Household members: none Housing: House 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 Physical Exam 2 HENMT: COMMON NORMALS: normocephalic and atraumatic HEAD & SCALP: n ormocephalic and atraumatic Resp: COMMON NORMALS: normal respiratory effort, No retractions, No use of accessory muscles and clear to auscultation bilaterally AUSCULTATION: clear to auscultation bilaterally Cardio: COMMON NORMALS: regular rate, regular rhythm and No murmurs present (Cardio) RATE: regular rate RHYTHM: regular rhythm GI: COMMON NORMALS: No hepatosplenomegaly present AUSCULTATION: Yes normoactive bowel sounds PALPATION: Yes Tenderness to palpation present (GI) (Diffuse), No Guarding due to palpation present (GI) and Yes No hepatosplenomegaly present Extremity: COMMON NORMALS: normal to inspection, capillary refill normal, no clubbing, cyanosis or edema, no calf tenderness and no pedal edema Skin: COMMON NORMALS: no rashes or lesions noted GENERAL SKIN EXAM: no rashes or lesions noted Course 2 Vital Signs: Vital signs: Vital Signs Temperature 98.2 F 05/12/25 10:44 Pulse Rate 90 05/12/25 15:43 Respiratory Rate 16 05/12/25 15:43 Blood Pressure 164/106 05/12/25 15:43 Pulse Oximetry 94 05/12/25 15:43 Oxygen Delivery Me thod Nasal Cannula 05/12/25 16:15 MDM - Weakness Medical Decision Making Patient has significant cystitis he has previously grown out Pseudomonas he was started on meropenem. We got records from [facility] in [place] where he was previously hospitalized. They placed a cholecystectomy tube which based on her CT appears to be draining well there is a small cyst adjacent to it I contacted the surgeon who is taking care of him at [facility] they feel it is likely hematoma I do not feel it represents an abscess based on the normal lab liver function test to the extent it is either hematoma or abscess or biloma that need to be drained the drain is in place and should be able to manage it. They do not feel there to be any other intervention at this time. He does have a significant cystitis the Regan tube was nearly clogged with debris. Regan was replaced and has good outflow now. Discussed with the hospitalist will admit started on IV meropenem based on his previous cultures. Lactic acid is improving with IV fluids. He did not have any leukocytosis initially. Discussed Dr. Porter orders written for admission Medical Records I reviewed the patient's medical records. Reviewed records from recent hospitalization at [facility]. Discussed with surgeon who had taken care of the patient there. Lab Data I reviewed the patient's lab results. 05/12/25 10:32 05/12/25 10:32 Radiology Impressions Hip/Pelvis X-Ray 05/12/25 11:30 Impression: 1. Mild osteoarthritis of the right hip. 2. Stable repair of left acetabular fracture. Abdomen/Pelvis CT 05/12/25 11:49 IMPRESSION: 1. Status post placement of percutaneous cholecystostomy tube with decompression of the gallbladder. A small gallstone is again noted. 2. Small 2.6 x 2.1 x 2.9 cm mildly complex hypodense lesion in the right hepatic lobe adjacent to the gallbladder fossa, segment 5, which is new since the prior study and could represent a small hematoma or abscess. 3. Persistent mild hydroureteronephrosis with mild thickening and enhancement of the ureteral sandhu and decompressed urinary bladder around a Regan catheter with irregular thickening of the bladder wall and mild stranding of the adjacent fat. Findings are suspicious for an infectious process. Please correlate clinically. 4. Copious amount of fecal material distending the rectum with a moderate amount of fecal material throughout the remainder of the colon. Please correlate clinically for symptoms of constipation. 5. Other chronic findings described above. ADDENDUM: 05/12/25 1345 THIS REPORT CONTAINS FINDINGS THAT MAY BE CRITICAL TO PATIENT CARE. The findings were verbally communicated via telephone conference with BUCKY WALKER at 1:43 PM CDT on 05/12/2025. The findings were acknowledged and understood. Head CT 05/12/25 12:17 IMPRESSION: 1. No evidence of intracranial hemorrhage or mass effect. 2. LEFT sphenoid sinusitis 3. No acute intracranial findings. Laboratory Results WBC 9.12 10^3/uL (3.29-11.43) 05/12/25 10:32 RBC 4.36 10^6/uL (3.85-5.65) 05/12/25 10:32 Hgb 12.90 g/dL (11.27-16.99) 05/12/25 10:32 Hct 40.3 % (37-53) 05/12/25 10:32 MCV 92.4 fl (82-101) 05/12/25 10:32 MCH 29.6 pg (27-33) 05/12/25 10:32 MCHC 32.0 g/dL (30-55) 05/12/25 10:32 RDW 17.3 % (12.1-15.1) H 05/12/25 10:32 Plt Count 412 10^3/cmm (157-399) H 05/12/25 10:32 MPV 9.7 fL (7.4-10.4) 05/12/25 10:32 Neut % (Auto) 71.6 % 05/12/25 10:32 Lymph % (Auto) 16.8 % 05/12/25 10:32 [place] % (Auto) 7.6 % 05/12/25 10:32 Eos % (Auto) 2.3 % 05/12/25 10:32 Baso % (Auto) 0.9 % 05/12/25 10:32 Neut # (Auto) 6.54 10^3/uL (1.8-7.7) 05/12/25 10:32 Lymph # (Auto) 1.5 10^3/uL (0.8-4.8) 05/12/25 10:32 [place] # (Auto) 0.7 10^3/uL (0.2-0.9) 05/12/25 10:32 Eos # (Auto) 0.2 10^3/uL (0.0-0.8) 05/12/25 10:32 Baso # (Auto) 0.1 10^3/uL (0.0-0.1) 05/12/25 10:32 Nucleated RBC % (auto) 0 % 05/12/25 10:32 Nucleated RBCs # 0.0 /100WBC 05/12/25 10:32 Sodium 134 mmol/L (136-145) L 05/12/25 10:32 Potassium 5.3 mmol/L (3.5-5.1) H 05/12/25 10:32 Chloride 95 mmol/L (98-107) L 05/12/25 10:32 Carbon Dioxide 27 mmol/L (22-29) 05/12/25 10:32 Anion Gap 17.3 (5-19) 05/12/25 10:32 BUN 25 mg/dL (8-23) H 05/12/25 10:32 Creatinine 1.1 mg/dL (0.7-1.2) 05/12/25 10:32 GFR Calculation Not Reportable 05/12/25 10:32 Glucose 130 mg/dL (65-115) H 05/12/25 10:32 Calculated Osmolality 284 mOsm/kg (285-295) L 05/12/25 10:32 Lactic Acid 3.3 mmol/L (0.5-2.2) H 05/12/25 10:32 Lactic Acid (Sepsis) 0.9 mmol/L (0.5-2.2) 05/12/25 13:25 Calcium 9.3 mg/dL (8.5-10.5) 05/12/25 10: Total Bilirubin 0.3 mg/dL (0.15-1.2) 05/12/25 10:32 AST 11 U/L (0-40) 05/12/25 10: ALT 8 U/L (0-41) 05/12/25 10:32 Alkaline Phosphatase 195 U/L (40-130) H 05/12/25 10:32 Total Protein 8.0 g/dL (6.6-8.7) 05/12/25 10:32 Albumin 3.2 g/dL (3.5-5.2) L 05/12/25 10:32 Globulin 4.8 g/dL (1.3-4.6) H 05/12/25 10:32 Lipase 62 U/L (13-60) H 05/12/25 10:32 Procalcitonin 0.07 ng/mL (0-0.5) 05/12/25 10:32 Urine Color Yellow (Yellow) 05/12/25 11:05 Urine Appearance Turbid (CLEAR) A 05/12/25 11:05 Urine pH 5.5 (5-7) 05/12/25 11:05 Ur Specific [place] 1.017 (1.005-1.030) 05/12/25 11:05 Urine Protein 4+ (Negative) A 05/12/25 11:05 Urine Glucose (UA) Negative (Normal) 05/12/25 11:05 Urine Ketones Negative (Negative) 05/12/25 11:05 Urine Blood 2+ (Negative) A 05/12/25 11:05 Urine Nitrate Positive (Negative) A 05/12/25 11:05 Urine Bilirubin Negative (Negative) 05/12/25 11: Urine Urobilinogen 0.2 mg/dL (Negative) 05/12/25 11:05 Ur Leukocyte Esterase 3+ (Negative) A 05/12/25 11:05 Urine RBC 5-10 /hpf (0-2) H 05/12/25 11:05 Urine WBC >100 /hpf (0-5) H 05/12/25 11:05 Ur Squamous Epith Cells 5-10 /hpf (0-5) H 05/12/25 11:05 Amorphous Sediment Not Reportable 05/12/25 11:05 Urine Bacteria 3+ /hpf (NONE) H 05/12/25 11:05 Urine Mucus 1+ /hpf 05/12/25 11:05 All radiology interpretation(s) finalized by discharge Discharge Plan Discharge Patient Disposition: Admitted As Inpatient Admit Provider: Issa Porter Clinical Impression: Sepsis, Cystitis, Poorly controlled type 2 diabetes mellitus, Stage 2 chronic kidney disease, H/O insertion of cholecystostomy tube, Hyperkalemia Condition: Stable Coding Level of Care Code ED General Magistrate for Sergio Dahl
--- NOTE | 2025-05-12 11:30 | XR_ITS ---
WS: [id number] Right hip, 2 views, AP pelvis, 05/12/2025 Clinical Data: Pain Comparison: Pelvis and left hip, 11/29/2024 Findings: There are two orthopedic plates reducing fractures of the left acetabulum and inferior left pubic ramus. The plates are fixed with multiple screws. The right hip shows no narrowing, erosion, sclerosis or fragmentation of the right femoral head. There is a small right acetabular lip. Detail over the left hip is obscured by the overlying orthopedic plates. The SI joints and pubic symphysis appear intact. Vascular calcification is seen. XR/XR hip RT 2-3V wo/w pel* [id number] Impression: 1. Mild osteoarthritis of the right hip. 2. Stable repair of left acetabular fracture.
[2025-05-12 11:41] LABS: Lactic Sepsis W/Reflex 3.3 mmol/L (0.5-2.2)
[2025-05-12 11:42] LABS: Lipase 62 U/L (13-60)
[2025-05-12 11:47] LABS: Add Urine Microscopic? YES
--- NOTE | 2025-05-12 11:49 | CTR_ITS ---
PROCEDURE INFORMATION: Exam: CT Abdomen And Pelvis With Contrast Exam date and time: 05/12/2025 12:21 PM Age: 75 years old Clinical indication: Abdominal pain; Generalized; Prior surgery; Surgery date: 1-6 months; Surgery type: Gb SX w/drain placement. PT presents with uncontrollable pain and cloudy urine; Additional info: Abd pain TECHNIQUE: Imaging protocol: Computed tomography of the abdomen and pelvis with contrast. Radiation optimization: All CT scans at this facility use at least one of these dose optimization techniques: automated exposure control; mA and/or kV adjustment per patient size (includes targeted exams where dose is matched to clinical indication); or iterative reconstruction. Contrast material: OMNI 350; Contrast volume: 100 ml; Contrast route: INTRAVENOUS (IV); COMPARISON: CT kidney stone [id number] 03/31/2025 4:48 PM RADIATION DOSE METRICS: Total DLP (mGy-cm): 721.29 FINDINGS: Lungs: There is mild patchy bibasilar atelectasis with tiny bilateral pleural effusions, not significantly changed. Heart: The heart is mildly enlarged with a tiny pericardial effusion, not significantly changed. Liver: See Gallbladder and biliary ducts finding. Gallbladder and biliary ducts: There has been interval placement of a percutaneous cholecystostomy tube with decompression of the gallbladder. A stone is again seen within the decompressed gallbladder. No significant biliary dilatation. There is a 2.6 x 2.1 x 2.9 cm hypodense lesion within the right hepatic lobe posterior to the gallbladder fossa with possible mild enhancement of a slightly thickened wall. This is new since the prior study and could represent a small hematoma or abscess. A 2.2 cm cyst is seen in segment 8 and a second subcentimeter hypodense lesion is seen in segment 8 which is too small to characterize accurately by CT, but not significantly changed. Pancreas: Unremarkable. Spleen: There are calcified granulomata within the spleen. Adrenal glands: Unremarkable. Kidneys and ureters: No renal or ureteral calculi are detected. There is very mild persistent hydronephrosis bilaterally with mild bilateral hydroureter with mild thickening and enhancement of the ureteral sandhu bilaterally. There are several small hypodense lesions within the kidneys bilaterally, too small to characterize accurately by CT. Stomach and bowel: The rectum is distended with a large amount of fecal material. There is a moderate amount of fecal material throughout the remainder of the colon. Small bowel loops are normal in caliber. Appendix: No evidence of appendicitis. Intraperitoneal space: Unremarkable. No free air. No significant fluid collection. Vasculature: The abdominal aorta is normal in caliber. There is moderate to marked diffuse atherosclerotic calcification. Lymph nodes: Small subcentimeter retroperitoneal lymph nodes are again noted.. No enlarged lymph nodes. Urinary bladder: The urinary bladder is decompressed around a Regan catheter balloon. There is irregular thickening of the wall of the urinary bladder with very mild stranding of the adjacent fat. Reproductive: Unremarkable as visualized. Bones/joints: There is mild levoscoliosis of the lumbar spine with diffuse degenerative changes throughout. There are postsurgical changes involving the left ilium with orthopedic hardware in place. There is narrowing of the hip joints bilaterally with subchondral sclerosis and marginal spurs, left worse than right. No acute fracture is detected. Soft tissues: There is persistent left hip joint effusion and surrounding soft tissue edema, not significantly changed. CT/CT abdomen pelvis w con* [id number] IMPRESSION: 1. Status post placement of percutaneous cholecystostomy tube with decompression of the gallbladder. A small gallstone is again noted. 2. Small 2.6 x 2.1 x 2.9 cm mildly complex hypodense lesion in the right hepatic lobe adjacent to the gallbladder fossa, segment 5, which is new since the prior study and could represent a small hematoma or abscess. 3. Persistent mild hydroureteronephrosis with mild thickening and enhancement of the ureteral sandhu and decompressed urinary bladder around a Regan catheter with irregular thickening of the bladder wall and mild stranding of the adjacent fat. Findings are suspicious for an infectious process. Please correlate clinically. 4. Copious amount of fecal material distending the rectum with a moderate amount of fecal material throughout the remainder of the colon. Please correlate clinically for symptoms of constipation. 5. Other chronic findings described above.
--- NOTE | 2025-05-12 12:17 | CT_ITS ---
WS: [id number] CT HEAD TECHNIQUE: Noncontrast CT of the head obtained from the skullbase to the vertex. CLINICAL INFORMATION: AMS COMPARISON: 04/30/2025 DLP: 1173.[address] scans at [facility] use at least one of these dose optimization techniques: automated exposure control; mA and/or kV adjustment per patient size (includes targeted exams where dose is matched to clinical indication); or iterative reconstruction. FINDINGS: No evidence of intracranial hemorrhage or mass effect. Ventricular system and basal cisterns are patent. Moderate to advanced small vessel changes with moderate parenchymal volume loss. Dense vascular calcification. Chronic infarct RIGHT frontal parietal junction and posterior RIGHT MCA territory with extensive encephalomalacia unchanged. Tiny chronic lacunar infarct LEFT thalamus. Tiny chronic lacunar infarcts LEFT external capsule. Chronic lacunar infarcts in the LEFT cerebellum. LEFT middle cranial fossa arachnoid cyst is stable measuring 3.1 x 1.[address] cm. [address]oid sinusitis. CT/CT head wo con* [id number] IMPRESSION: 1. No evidence of intracranial hemorrhage or mass effect. 2. LEFT sphenoid sinusitis 3. No acute intracranial findings.
[2025-05-12] MEDS: iohexol 350 mg/mL 500 mL Btl (per mL) IV (12:25)
[2025-05-12 13:04] LABS: Reflex Lactate Order REFLEX LACTIC ORDERD
[2025-05-12] MEDS: MEROPENEM 2,000 MG in sodium chloride 0.9% (plus) 50 ML 100 MG IV ×2 (13:36→22:08)
[2025-05-12 13:49] LABS: Lactic Acid level (Lactate) 0.9 mmol/L (0.5-2.2)
--- NOTE | 2025-05-12 14:38 | PM.HP ---
Providers/Chief Complaint Chief Complaint: uncontrolled pain History of Present Illness Luis Mcintosh is a 75 year old male with past medical history of A-fib on chronic anticoagulation with Eliquis, CVA, type 2 diabetes mellitus, chronic indwelling Regan catheter for bladder outlet obstruction from BPH, recent acetabular fracture, recent cholecystostomy tube insertion within last 1 month At [facility] for acute cholecystitis presents to the ER today from SNF because of tiredness/weakness, uncontrolled pain in suprapubic region radiating to back. In the ER he was found to have significantly cloudy urine with sedimentation. His Regan catheter was replaced after which his symptoms of pain resolved. Patient himself otherwise denies any nausea, vomiting, headache, abdominal pain currently, fever, difficulty in breathing, chest pain, subjective fever or fever. Review of Systems General: Reports: 10 or more systems reviewed and unremarkable except in HPI and below Const: Denies: fever(s), chills, body aches, change in appetite, change in weight, malaise, night sweats, diaphoresis, change in sleep pattern, daytime sleepiness or snoring Eyes: Denies: change in vision, blurry vision, photophobia, eye discomfort or eye discharge ENMT: Denies: throat pain, enlarged tonsils, hoarseness, mouth pain, oral sores, dry mouth, tinnitus, nasal congestion or post nasal drip Card: Denies: chest pain, palpitations, irregular heart rhythm, edema, swelling of feet/ankles, lightheadedness, syncope, pre-syncope, dyspnea on exertion, orthopnea, leg pain with exertion or acrocyanosis Resp: Denies: dyspnea, productive cough, non-productive cough, wheezing, stridor, pain on inspiration, change in phlegm color, hemoptysis or chest congestion GI: Denies: abdominal pain, nausea, vomiting, hematemesis, coffee ground emesis, dysphagia, heartburn, diarrhea, constipation, bloating, GI cramping, change in bowel habits, pain on defecation, hematochezia or melena : Denies: flank pain, difficulty urinating, dysuria, urinary frequency, urinary urgency, urinary hesitancy, urinary dribbling, difficulty starting urination, change in urine stream, nocturia or hematuria Musc: Denies: neck pain, back pain, extremity pain, joint pain, joint swelling, joint redness, joint stiffness or limited range of motion Neuro: Denies: headache(s), numbness in extremities, weakness in extremities, sensory changes, lack of coordination, difficulty walking, frequent falls, dizziness, vertigo, confusion, Slurred speech present, difficulty communicating thoughts or seizure-like activity Psych: Denies: anxiety, depression, mood swings, panic attacks, hopelessness or irritability Endo: Denies: polyuria, polydipsia, tired all the time, cold intolerance, excessive sweating, flushing or heat intolerance Loco/Lymph: Denies: easy bruising or easy bleeding All/Imm: Denies: tongue swelling, facial swelling or acute wheezing Medications/Allergies Home Medications ?Medication ?Instructions ?Recorded ?Confirmed ?Last Taken ?Type tramadol 50 mg tablet 50 mg PO Q6H PRN Pain 02/12/22 04/23/25 04/21/25 07:15 History acetaminophen 325 mg tablet 650 mg PO Q6H PRN PAIN OR FEVER 07/08/23 04/23/25 03/12/25 12:20 History apixaban 5 mg tablet (Eliquis) 5 mg PO BID 07/08/23 04/23/25 03/31/25 08:35 History vit C 50 mg-E 15 unit-zinc cit 4.5 1 tab PO BEDTIME 07/08/23 04/01/25 03/31/25 History mg-lutein 2.5 mg-zeaxan chew tablet ([facility]) cyanocobalamin (vitamin B-12) 500 500 mcg PO DAILY 01/24/24 04/23/25 04/08/25 06:50 History mcg tablet insulin aspart U-100 100 unit/mL See Rx Instructions .Route .COMPLEX 01/24/24 04/01/25 03/31/25 History (3 mL) subcutaneous pen (Novolog FlexPen U-100 Insulin aspart) amlodipine 5 mg tablet 5 mg PO DAILY 11/18/24 04/23/25 03/31/25 08:35 History Held on 04/03/25. Instructions: hold till seen by pcp ondansetron 4 mg disintegrating 4 mg PO Q6H PRN nausea and 11/24/24 04/23/25 03/25/25 Rx tablet vomiting #14 tabs nystatin 100,000 unit/gram topical See Rx Instructions .Route .COMPLEX 04/01/25 04/01/25 03/31/25 History cream silver sulfadiazine 1 % topical See Rx Instructions .Route .COMPLEX 04/01/25 04/23/25 04/22/25 15:15 History cream lisinopril 5 mg tablet 2.5 mg (1/2 x 5 mg) PO DAILY #30 04/03/25 04/01/25 03/31/25 Rx tabs metoprolol tartrate 25 mg tablet 50 mg (2 x 25 mg) PO BID@0900,2100 04/03/25 Unknown Rx #90 tabs Allergies Allergy/AdvReac Type Severity Reaction Status Date / Time Penicillins Allergy ALGY-Rash Verified 12/21/24 11:05 PFSH Acute PFSH: Medical History (Updated 05/12/25 @ 15:14 by Issa Porter MD) Type 2 diabetes mellitus Complicated UTI (urinary tract infection) Fracture of left inferior pubic ramus Closed bilateral acetabular fractures Chronic indwelling Regan catheter Atrial fibrillation with rapid ventricular response Peripheral neuropathy CAD (coronary artery disease) Depression Chronic anticoagulation CVA (cerebral vascular accident) 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 Stage 2 chronic kidney disease Baseline creatinine has improved since placement of Regan catheter. Down to 1.1 Poorly controlled type 2 diabetes mellitus Dyslipidemia DVT (deep venous thrombosis) HTN (hypertension) Polycythemia Atrial fibrillation Surgical History (Updated 05/12/25 @ 14:41 by Issa Porter MD) H/O insertion of cholecystostomy tube S/P ORIF (open reduction internal fixation) fracture No pertinent past surgical history Family History Other CAD (coronary artery disease) Cancer Social History Smoking and tobacco/nicotine status: former use of tobacco/nicotine Quit status (tobacco/nicotine): has quit using Year quit tobacco: 2010 Former quit date comment: Due to stroke Alcohol intake: former Year of sobriety/quit date alcohol: 2010 Former alcohol use details: Never heavy drinker Substance/Drug Use: never Additional social history: Next of kin is his brother Michael Mcintosh who is 69 years old patient wants full CODE STATUS Caregiver/support person: No Household members: none Housing: House 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 [employer] Vitals/I&O/Wt Last Vital Signs Temp 98.2 F 05/12/25 10:44 Pulse 91 05/12/25 14:26 Resp 16 05/12/25 14:26 BP 174/99 05/12/25 14:26 Pulse Ox 100 05/12/25 14:26 O2 Del Method Room Air 05/12/25 10:44 05/11/25 05/12/25 05/12/25 22:59 06:59 14:59 Intake Total 2049 Balance 2049 Weight last 48 hrs Weight 68.039 kg Physical Exam Narrative: General: No acute distress, AO x3, chronically sick appearing, bitemporal wasting, cachectic HEENT: PERRLA, pupils bilaterally equal and reactive Chest: Normal vesicular breath sounds, no added sounds, equal good air entry bilaterally CVS: S1-S2 regular, no murmurs, no tachycardia, no gallops, no rubs, cholecystostomy tube present in right flank area Abdomen: Soft, nontender, no organomegaly, bowel sounds present Neuro: No focal deficits, no facial deformity, AO x3, power 5/5 in all limbs Urinary Catheter Management: Regan: Cath Placed During This Visit: yes Urinary Catheter Date of Insertion: 05/12/25 Urinary Catheter Time of Insertion: 11:00 Data 05/12/25 10:32 05/12/25 10:32 Micro: Microbiology 05/12/25 11:42 Blood Culture - Preliminary Blood SPECIMEN COLLECTED 05/12/25 11:40 Blood Culture - Preliminary Blood SPECIMEN COLLECTED Other data: Radiology Impressions Hip/Pelvis X-Ray 05/12/25 11:30 Impression: 1. Mild osteoarthritis of the right hip. 2. Stable repair of left acetabular fracture. Abdomen/Pelvis CT 05/12/25 11:49 IMPRESSION: 1. Status post placement of percutaneous cholecystostomy tube with decompression of the gallbladder. A small gallstone is again noted. 2. Small 2.6 x 2.1 x 2.9 cm mildly complex hypodense lesion in the right hepatic lobe adjacent to the gallbladder fossa, segment 5, which is new since the prior study and could represent a small hematoma or abscess. 3. Persistent mild hydroureteronephrosis with mild thickening and enhancement of the ureteral sandhu and decompressed urinary bladder around a Regan catheter with irregular thickening of the bladder wall and mild stranding of the adjacent fat. Findings are suspicious for an infectious process. Please correlate clinically. 4. Copious amount of fecal material distending the rectum with a moderate amount of fecal material throughout the remainder of the colon. Please correlate clinically for symptoms of constipation. 5. Other chronic findings described above. ADDENDUM: 05/12/25 [id number] THIS REPORT CONTAINS FINDINGS THAT MAY BE CRITICAL TO PATIENT CARE. The findings were verbally communicated via telephone conference with JANE LLOYD at 1:43 PM CDT on 05/12/2025. The findings were acknowledged and understood. Head CT 05/12/25 12:17 IMPRESSION: 1. No evidence of intracranial hemorrhage or mass effect. 2. LEFT sphenoid sinusitis 3. No acute intracranial findings. Laboratory Results WBC 9.12 10^3/uL (3.29-11.43) 05/12/25 10:32 RBC 4.36 10^6/uL (3.85-5.65) 05/12/25 10:32 Hgb 12.90 g/dL (11.27-16.99) 05/12/25 10:32 Hct 40.3 % (37-53) 05/12/25 10:32 MCV 92.4 fl (82-101) 05/12/25 10:32 MCH 29.6 pg (27-33) 05/12/25 10:32 MCHC 32.0 g/dL (30-55) 05/12/25 10:32 RDW 17.3 % (12.1-15.1) H 05/12/25 10:32 Plt Count 412 10^3/cmm (157-399) H 05/12/25 10:32 MPV 9.7 fL (7.4-10.4) 05/12/25 10:32 Neut % (Auto) 71.6 % 05/12/25 10:32 Lymph % (Auto) 16.8 % 05/12/25 10:32 Wells % (Auto) 7.6 % 05/12/25 10:32 Eos % (Auto) 2.3 % 05/12/25 10:32 Baso % (Auto) 0.9 % 05/12/25 10:32 Neut # (Auto) 6.54 10^3/uL (1.8-7.7) 05/12/25 10:32 Lymph # (Auto) 1.5 10^3/uL (0.8-4.8) 05/12/25 10:32 Wells # (Auto) 0.7 10^3/uL (0.2-0.9) 05/12/25 10:32 Eos # (Auto) 0.2 10^3/uL (0.0-0.8) 05/12/25 10:32 Baso # (Auto) 0.1 10^3/uL (0.0-0.1) 05/12/25 10:32 Nucleated RBC % (auto) 0 % 05/12/25 10:32 Nucleated RBCs # 0.0 /100WBC 05/12/25 10:32 Sodium 134 mmol/L (136-145) L 05/12/25 10:32 Potassium 5.3 mmol/L (3.5-5.1) H 05/12/25 10:32 Chloride 95 mmol/L (98-107) L 05/12/25 10:32 Carbon Dioxide 27 mmol/L (22-29) 05/12/25 10:32 Anion Gap 17.3 (5-19) 05/12/25 10:32 BUN 25 mg/dL (8-23) H 05/12/25 10:32 Creatinine 1.1 mg/dL (0.7-1.2) 05/12/25 10:32 GFR Calculation Not Reportable 05/12/25 10:32 Glucose 130 mg/dL (65-115) H 05/12/25 10:32 Calculated Osmolality 284 mOsm/kg (285-295) L 05/12/25 10:32 Lactic Acid 3.3 mmol/L (0.5-2.2) H 05/12/25 10:32 Lactic Acid (Sepsis) 0.9 mmol/L (0.5-2.2) 05/12/25 13:25 Calcium 9.3 mg/dL (8.5-10.5) 05/12/25 10:32 Total Bilirubin 0.3 mg/dL (0.15-1.2) 05/12/25 10:32 AST 11 U/L (0-40) 05/12/25 10:32 ALT 8 U/L (0-41) 05/12/25 10:32 Alkaline Phosphatase 195 U/L (40-130) H 05/12/25 10:32 Total Protein 8.0 g/dL (6.6-8.7) 05/12/25 10:32 Albumin 3.2 g/dL (3.5-5.2) L 05/12/25 10:32 Globulin 4.8 g/dL (1.3-4.6) H 05/12/25 10:32 Lipase 62 U/L (13-60) H 05/12/25 10:32 Urine Color Yellow (Yellow) 05/12/25 11:05 Urine Appearance Turbid (CLEAR) A 05/12/25 11:05 Urine pH 5.5 (5-7) 05/12/25 11:05 Ur Specific [place] 1.017 (1.005-1.030) 05/12/25 11:05 Urine Protein 4+ (Negative) A 05/12/25 11:05 Urine Glucose (UA) Negative (Normal) 05/12/25 11:05 Urine Ketones Negative (Negative) 05/12/25 11:05 Urine Blood 2+ (Negative) A 05/12/25 11:05 Urine Nitrate Positive (Negative) A 05/12/25 11:05 Urine Bilirubin Negative (Negative) 05/12/25 11:05 Urine Urobilinogen 0.2 mg/dL (Negative) 05/12/25 11:05 Ur Leukocyte Esterase 3+ (Negative) A 05/12/25 11:05 Urine RBC 5-10 /hpf (0-2) H 05/12/25 11:05 Urine WBC >100 /hpf (0-5) H 05/12/25 11:05 Ur Squamous Epith Cells 5-10 /hpf (0-5) H 05/12/25 11:05 Amorphous Sediment Not Reportable 05/12/25 11:05 Urine Bacteria 3+ /hpf (NONE) H 05/12/25 11:05 Urine Mucus 1+ /hpf 05/12/25 11:05 A&P Assessment and plan 1. Sepsis with encephalopathy without septic shock, due to unspecified organism: Most likely in setting of complicated UTI due to chronic indwelling Regan catheter. Associated with altered mental status, elevated lactate. Patient did receive a fluid sepsis bolus in the ER. Maintain mean artery pressure over 65. Follow-up blood culture, urine culture. Trend procalcitonin. Check bacterial urine antigen. Check cholecystostomy tube cultures. Appreciate past culture history of UTI from Pseudomonas, recent Enterococcus faecalis bacteremia. As per culture sensitivities for now start patient on meropenem 2 g IV every 8 hourly, vancomycin. 2. Complicated UTI (urinary tract infection): 3. H/O insertion of cholecystostomy tube: In place as per CT abdomen pelvis. Also found to have small 2.6 x 2.1 x 1.9 mildly complex collection in the right hepatic lobe. ER physician had a conversation with patient's outpatient surgeon who suggested this to be most likely a seroma versus biloma versus hematoma and suggested patient to be treated with IV antibiotic as he is not a good surgical candidate anyways. 4. Chronic indwelling Regan catheter: For urinary retention from BPH. Regan replaced in the ER on 05/12. 5. Acute urinary retention: 6. Stage 2 chronic kidney disease: Has since then resolved after placing Regan. Monitor renal functions daily. Medical reconciliation done for nephrotoxic drugs. 7. Hydronephrosis, bilateral: Seems to be resolving on repeat CT scan done today. 8. Disorientation: 9. Type 2 diabetes mellitus: Last A1c of 6.3. Insulin sliding scale. Depending on insulin requirements in next 24 hours will add Lantus. 10. Hyperkalemia: Treat with Kayexalate orally and sodium bicarb one-time. Repeat BMP in evening. 11. Hyponatremia: Could be in setting of dehydration. NS at 50 cc/h. Repeat BMP in morning. 12. Elevated lactic acid level: Insetting of sepsis. Received sepsis bolus. Continue to monitor. Plan: Atrial fibrillation: Continue with home dose of metoprolol. Takes Eliquis at home. For now converted to full dose Lovenox 1 mg/kg body weight every 12 hourly in case patient needs surgical correction. Can restart Eliquis on discharge. Telemetry. History of DVT. Hypertension: Goal blood pressure less than 140/90 mmHg. Continue with metoprolol as above. Holding off on home dose of lisinopril and amlodipine. Full code Regular carb consistent diet Protonix for PUD prophylaxis Full dose Lovenox will be sufficient for DVT prophylaxis PDMP PDMP Reviewed: Not Reviewed Attestations Medical Necessity Statement*: Admission for more than 2 midnights for management of severe sepsis in setting of UTI in a patient with recent cholecystostomy tube insertion for cholecystitis, chronic Regan in place for urinary retention Diagnoses Sepsis with encephalopathy without septic shock, due to unspecified organism A41.9; R65.20; G93.41 Sepsis type: sepsis due to unspecified organism Sepsis acute organ dysfunction status: with acute organ dysfunction Severe sepsis acute organ dysfunction type: encephalopathy Severe sepsis shock status: without septic shock Complicated UTI (urinary tract infection) N39.0 H/O insertion of cholecystostomy tube Z98.890 Chronic indwelling Regan catheter Z97.8 Acute urinary retention R33.8 Stage 2 chronic kidney disease N18.2 Chronic kidney disease stage: stage 2 (GFR 60-89) Hydronephrosis, bilateral N13.30 Disorientation R41.0 Altered mental status type: disorientation Type 2 diabetes mellitus E11.9 Hyperkalemia E87.5 Hyponatremia E87.1 Elevated lactic acid level R79.89
--- NOTE | 2025-05-12 15:12 | PHA.VACGOAL ---
Vancomycin Goal - Goal Vancomycin Goal:: 15-20 mg/L Vancomycin Indication:: Other (SEPSIS) - Therapy Current therapy:: Meropenem Day of therpy:: Day []of [] . Actual body weight (kg): 150 lb - Data Labs: WBC 9.12 10^3/uL (3.29-11.43) 05/12/25 10:32 RBC 4.36 10^6/uL (3.85-5.65) 05/12/25 10:32 Hgb 12.90 g/dL (11.27-16.99) 05/12/25 10:32 Hct 40.3 % (37-53) 05/12/25 10:32 MCV 92.4 fl (82-101) 05/12/25 10:32 MCH 29.6 pg (27-33) 05/12/25 10:32 MCHC 32.0 g/dL (30-55) 05/12/25 10:32 RDW 17.3 % (12.1-15.1) H 05/12/25 10:32 Sodium 134 mmol/L (136-145) L 05/12/25 10:32 Potassium 5.3 mmol/L (3.5-5.1) H 05/12/25 10:32 Chloride 95 mmol/L (98-107) L 05/12/25 10:32 Carbon Dioxide 27 mmol/L (22-29) 05/12/25 10:32 Anion Gap 17.3 (5-19) 05/12/25 10:32 BUN 25 mg/dL (8-23) H 05/12/25 10:32 Creatinine 1.1 mg/dL (0.7-1.2) 05/12/25 10:32 GFR Calculation Not Reportable 05/12/25 10:32 Last dialysis session:: N/A Treatment plan:: new consult Regimen:: LOADING DOSE OF 2000 MG X 1 PER DOSING PROTOCOL MAINTENANCE DOSE OF 750 MG Q12H Follow up:: WILL CONTINUE TO MONITOR AND FOLLOW UP DAILY
--- NOTE | 2025-05-12 15:47 | PC.NURSE ---
This nurse took report from JOVANA Lincoln in ER at [phone].
[2025-05-12 15:52] LABS: Procalcitonin 0.07 ng/mL (0-0.5)
--- NOTE | 2025-05-12 16:55 | PC.PHAR ---
Addendum entered by Alysa Hernandez 05/13/25 08:16: New med list faxed am 05/13/25. Post op list had a few changes. Original Note: [facility] wa suppose to fax over a list so I could update patients list. I updated with the list in Patient's file.List seemed to be missing medications . [facility] states Patient was in [facility] for a few weeks , but didn't state if the list changed.
[2025-05-12] MEDS: pantoprazole 40 mg SDV IVP (16:57)
[2025-05-12 18:25] LABS: Iron 38 ug/dL (59-158); Total Iron Binding Capacity 237 mcg/dl; Unsaturated Iron Binding 199 ug/dL (112-347); Vitamin B12 804 pg/mL (232-1245)
[2025-05-12 19:37] LABS: Anion Gap 15.6 (5-19); Blood Urea Nitrogen 24 mg/dL (8-23); Calcium 8.3 mg/dL (8.5-10.5); Carbon Dioxide 22 mmol/L (22-29); Chloride 100 mmol/L (98-107); Creatinine Clr Calc Pharmacy 74.8535; Glucose 89 mg/dL (65-115); Osmolality Calculated 280 mOsm/kg (285-295); Potassium 4.6 mmol/L (3.5-5.1); Sodium 133 mmol/L (136-145)
[2025-05-13] VITALS (11 sets, daily range): BP systolic 151–168; BP diastolic 84–93; PULSE 82–91; RESP 16–18; TEMP 36.4–37; O2SAT 96–100
[2025-05-13 04:43] LABS: Hematocrit 35.8 % (37-53); Hemoglobin 11.20 g/dL (11.27-16.99); Mean Corpuscular HGB Conc 31.3 g/dL (30-55); Mean Corpuscular Hemoglobin 29.8 pg (27-33); Mean Corpuscular Volume 95.2 fl (82-101); Nucleated Red Blood Cells % 0 %; Platelet Count 345 10^3/cmm (157-399); Red Blood Count 3.76 10^6/uL (3.85-5.65); White Blood Count 6.33 10^3/uL (3.29-11.43)
[2025-05-13 05:03] LABS: Alanine Aminotransferase 6 U/L (0-41); Albumin Level 2.4 g/dL (3.5-5.2); Alkaline Phosphatase 154 U/L (40-130); Anion Gap 14.0 (5-19); Aspartate Amino Transferase 9 U/L (0-40); Blood Urea Nitrogen 23 mg/dL (8-23); Calcium 8.2 mg/dL (8.5-10.5); Carbon Dioxide 24 mmol/L (22-29); Chloride 104 mmol/L (98-107); Creatinine Clr Calc Pharmacy 67.3681; Globulin 4.2 g/dL (1.3-4.6); Glucose 89 mg/dL (65-115); Magnesium 1.8 mg/dL (1.7-2.3); Osmolality Calculated 289 mOsm/kg (285-295); Potassium 4.0 mmol/L (3.5-5.1); Sodium 138 mmol/L (136-145); Total Protein 6.6 g/dL (6.6-8.7)
[2025-05-13 05:10] LABS: Procalcitonin 0.06 ng/mL (0-0.5)
[2025-05-13] MEDS: MEROPENEM 2,000 MG in sodium chloride 0.9% (plus) 50 ML 100 MG IV ×3 (06:29→23:14)
--- NOTE | 2025-05-13 09:23 | PC.CHAP ---
Pastoral Care Encounter/Spiritual Assessment Type of Contact [] Declined drafting teacher visit [] Patient/Family/Request visit [] Outpatient visit [] Follow-up visit [] Physician referral [] Code/Alert [x] Routine visit [] Staff referral [] Actively dying [] Patient sleeping [] Family support [] [] Out of room [] Palliative care [] [] Receiving care in room [] Pre-surgical visit [] Trauma [] Long length of stay [] ICU visit [] Other: Relational/Emotional Strength [x] Patient feels connected with others/family/visitors/staff [] Distress [] Loneliness/isolation [] Abandonment Spirituality of Patient [x] Person of Maria [place] Carmen [] Attends Cheondoism of their Maria [place] Carmen [x] Believes in Prayer [] Reads Bible or Mandaen materials [] There are Spiritual issues to be addressed Centrifugal Screen Tender Interventions [x] Prayer [x] Active listening [x] Non-anxious presence [x] Spiritual/emotional support [] Crisis/trauma care [] Spiritual counseling [] Bereavement support [] Provided bereavement packet [] Provided Bible/devotional materials [] Provided toy/stuffed animal, coloring book to patient or family member [] Provided Communion [] Anointing/[place] [] Salvation [x] Completed spiritual assessment [] Other: Impact on Illness or Injury [] Angry [] Fearful [] Anxious [] Often cries [] Exhaustion [] Unable to work [] Unable to attend nondenominational [] Unable to walk/stand [] Unable to read [] Unable to drive [] Unable to eat/drink [] Unable to sleep [] Unable to be with family [] Patient intubated [] Other: Summary Time spent with patient 5 min
--- NOTE | 2025-05-13 12:15 | P.PN_ITS ---
Subjective 2 Subjective: He said he was hungry but he cannot breakfast this morning. He is otherwise doing well. He is on so his permanent O2. He does not use oxygen at home. Urine cultures growing GNR. Blood cultures have been negative so far Vitals/I&O/Wt Last Vital Signs Temp 97.7 F 05/13/25 11:26 Pulse 89 05/13/25 11:26 Resp 18 05/13/25 11:26 BP 164/91 05/13/25 11:26 Pulse Ox 99 05/13/25 11:26 O2 Del Method Nasal Cannula 05/13/25 11:26 O2 Flow Rate 2 05/13/25 11:26 05/12/25 05/13/25 05/13/25 22:59 06:59 14:59 Intake Total 400 / 2450 1256.25 / 3706.25 50 / 50 Output Total 1600 / 1600 Balance -1200 / 850 1256.25 / 2106.25 50 / 50 Weight last 48 hrs Weight 70.307 kg Weight 68.096 kg Weight 68.039 kg Physical Exam 2 Const: COMMON NORMALS: no acute distress and patient oriented x3 HENMT: COMMON NORMALS: normocephalic and atraumatic HEAD & SCALP: n ormocephalic and atraumatic MOUTH: Normal oral and palatal mucosa present Eye: COMMON NORMALS: Equal, round and reactive pupils present PUPIL: Yes Equal, round and reactive pupils present Neck/C-Spine: COMMON NORMALS: supple and no JVD Resp: COMMON NORMALS: normal respiratory effort and clear to auscultation bilaterally AUSCULTATION: clear to auscultation bilaterally Cardio: COMMON NORMALS: no JVD, regular rate, regular rhythm, S1 normal heart sound present and S2 normal heart sound present RATE: regular rate RHYTHM: regular rhythm HEART SOUNDS: S1 normal heart sound present and S2 normal heart sound present GI: COMMON NORMALS: Normal to inspection, nondistended, normoactive bowel sounds present : COMMON NORMALS: Yes no CVA tenderness BLADDER/KIDNEY EXAM: Yes no CVA tenderness Back/Pelvis: COMMON NORMALS: no CVA tenderness Extremity: COMMON NORMALS: normal to inspection and full ROM Neuro: COMMON NORMALS: patient oriented x3 and no focal motor deficits Psych: COMMON NORMALS: cooperative Urinary Catheter Management: Regan: Cath Placed During This Visit: yes Reason for Continuing Indwelling Catheter: Chronic Indwelling Urinary Catheter on Admission Urinary Catheter Date of Insertion: 05/12/25 Urinary Catheter Time of Insertion: 11:00 Data 05/13/25 04:30 05/13/25 04:30 Micro: Microbiology 05/12/25 11:42 Blood Culture - Preliminary Blood NEGATIVE TO DATE 05/12/25 11:40 Blood Culture - Preliminary Blood NEGATIVE TO DATE 05/12/25 11:05 Urine Culture - Preliminary Urine,Clean Catch Gram Negative Rods 05/12/25 11:05 Bacterial Antigens - Final Urine Kidney A&P Assessment and plan 1. Sepsis with encephalopathy without septic shock, due to unspecified organism: Most likely in setting of complicated UTI due to chronic indwelling Regan catheter. Associated with altered mental status, elevated lactate. Patient did receive a fluid sepsis bolus in the ER. Maintain mean artery pressure over 65. Follow-up blood culture, urine culture. Appreciate past culture history of UTI from Pseudomonas, recent Enterococcus faecalis bacteremia. Currently on vancomycin and meropenem 2. Complicated UTI (urinary tract infection): Urine culture growing GNR thus far 3. H/O insertion of cholecystostomy tube: He has a cholecystostomy tube. CTAP on admission noted small 2.6 x 2.1 x 1.9 mildly complex collection in the right hepatic lobe. ER physician had a conversation with patient's outpatient surgeon who suggested this to be most likely a seroma versus biloma versus hematoma and suggested patient to be treated with IV antibiotic as he is not a good surgical candidate anyways. 4. Chronic indwelling Regan catheter: For urinary retention from BPH. Regan replaced in the ER on 05/12. 5. Stage 2 chronic kidney disease: Has since then resolved after placing Regan. Monitor renal functions daily. Medical reconciliation done for nephrotoxic drugs. 6. Acute metabolic encephalopathy: Secondary to sepsis and UTI 7. Type 2 diabetes mellitus: Last A1c of 6.3. Insulin sliding scale. Depending on insulin requirements in next 24 hours will add Lantus. 8. Hyperkalemia: Treat with Kayexalate orally and sodium bicarb one-time. Resolved 9. Elevated lactic acid level: Insetting of sepsis. Received sepsis bolus. Continue to monitor. 10. Hydronephrosis, bilateral: Chronic but resolving on repeat CT scan done on admission 11. Hyponatremia: Resolved with IV fluids 12. Atrial fibrillation: Atrial fibrillation: Continue home metoprolol Switch from Eliquis to therapeutic Lovenox in case he needs surgical intervention continue telemetry 13. DVT (deep venous thrombosis): History of DVT Plan: Hypertension: Goal blood pressure less than 140/90 mmHg. Continue with metoprolol as above. Full code Regular carb consistent diet Protonix for PUD prophylaxis Full dose Lovenox will be sufficient for DVT prophylaxis PDMP PDMP Reviewed: Not Reviewed Attestations 2 Medical Necessity Statement*: Patient is continue hospitalization for continued IV antibiotics. Urine and blood culture pending. Coding Level of Care Code Acute Code for Chg Fwd Diagnoses Sepsis with encephalopathy without septic shock, due to unspecified organism A41.9; R65.20; G93.41 Sepsis acute organ dysfunction status: with acute organ dysfunction Sepsis type: sepsis due to unspecified organism Severe sepsis acute organ dysfunction type: encephalopathy Severe sepsis shock status: without septic shock Complicated UTI (urinary tract infection) N39.0 H/O insertion of cholecystostomy tube Z98.890 Chronic indwelling Regan catheter Z97.8 Stage 2 chronic kidney disease N18.2 Chronic kidney disease stage: stage 2 (GFR 60-89) Acute metabolic encephalopathy G93.41 Type 2 diabetes mellitus E11.9 Hyperkalemia E87.5 Elevated lactic acid level R79.89 Hydronephrosis, bilateral N13.30 Hyponatremia E87.1 Atrial fibrillation I48.91 DVT (deep venous thrombosis) I82.409
[2025-05-13] MEDS: pantoprazole 40 mg SDV IVP (16:13)
[2025-05-14] VITALS (7 sets, daily range): BP systolic 84–178; BP diastolic 49–93; PULSE 57–84; RESP 15–17; TEMP 36.3–37.3; O2SAT 96–100
[2025-05-14 05:09] LABS: Hematocrit 38.4 % (37-53); Hemoglobin 11.70 g/dL (11.27-16.99); Mean Corpuscular HGB Conc 30.5 g/dL (30-55); Mean Corpuscular Hemoglobin 29.8 pg (27-33); Mean Corpuscular Volume 98.0 fl (82-101); Nucleated Red Blood Cells % 0 %; Platelet Count 263 10^3/cmm (157-399); Red Blood Count 3.92 10^6/uL (3.85-5.65); White Blood Count 6.83 10^3/uL (3.29-11.43)
[2025-05-14 05:39] LABS: Alanine Aminotransferase < 5 U/L (0-41); Albumin Level 2.3 g/dL (3.5-5.2); Alkaline Phosphatase 142 U/L (40-130); Anion Gap 15.0 (5-19); Aspartate Amino Transferase 10 U/L (0-40); Blood Urea Nitrogen 19 mg/dL (8-23); Calcium 8.2 mg/dL (8.5-10.5); Carbon Dioxide 21 mmol/L (22-29); Chloride 105 mmol/L (98-107); Creatinine Clr Calc Pharmacy 56.8436; Globulin 4.1 g/dL (1.3-4.6); Glucose 94 mg/dL (65-115); Magnesium 1.9 mg/dL (1.7-2.3); Osmolality Calculated 286 mOsm/kg (285-295); Potassium 4.0 mmol/L (3.5-5.1); Sodium 137 mmol/L (136-145); Total Protein 6.4 g/dL (6.6-8.7)
[2025-05-14] MEDS: MEROPENEM 2,000 MG in sodium chloride 0.9% (plus) 50 ML 100 MG IV ×3 (05:45→21:53)
--- NOTE | 2025-05-14 13:34 | PICC.NOTE ---
Midline placed to right brachial vein. Referred to vascular access nurse for midline placement due to UTI and need for IV antibiotics x 7 days. Risks and benefits discussed and informed consent obtained from pt brother, Mina, via phone. Right arm assessed with right brachial vein measuring 4.8 mm, straight, and apparent best choice for placement. Using sterile technique and MST, right brachial vein accessed x 1 stick. Mid-arm circumference measured 10 cm from right AC 27 cm. Trimmed cath 10 cm with 0 cm external length noted. Line secured with stat-lock. Insertion site covered with Biopatch and TSM. Report given to charge nurse, JOVANA Persaud.
--- NOTE | 2025-05-14 15:15 | P.PN_ITS ---
Subjective 2 Subjective: He did not have any acute issues overnight. He is only oriented to self. This is his baseline. He denies any fever, chills, chest pain, shortness of breath, abdominal pain, nausea, vomiting, or diarrhea. He does not know when he needs to follow-up re his cholecystostomy tube. Urine culture grew ESBL E. coli. Medications: Reviewed: Yes Vitals/I&O/Wt Last Vital Signs Temp 99.2 F 05/14/25 11:17 Pulse 83 05/14/25 11:17 Resp 17 05/14/25 11:17 BP 160/87 05/14/25 11:17 Pulse Ox 99 05/14/25 11:17 O2 Del Method Nasal Cannula 05/14/25 11:17 O2 Flow Rate 1 05/14/25 11:17 05/14/25 05/14/25 05/14/25 06:59 14:59 22:59 Intake Total 300 / 2130 1201.25 / 1201.25 Output Total 1400 / 2765 940 / 940 Balance -1100 / -635 261.25 / 261.25 Weight last 48 hrs Weight 70.477 kg Weight 70.477 kg Weight 70.307 kg Weight 68.096 kg Physical Exam 2 Const: COMMON NORMALS: no acute distress HENMT: COMMON NORMALS: normocephalic and atraumatic HEAD & SCALP: n ormocephalic and atraumatic MOUTH: Normal oral and palatal mucosa present Eye: COMMON NORMALS: Equal, round and reactive pupils present PUPIL: Yes Equal, round and reactive pupils present Neck/C-Spine: COMMON NORMALS: supple and no JVD Resp: COMMON NORMALS: normal respiratory effort and clear to auscultation bilaterally AUSCULTATION: clear to auscultation bilaterally Cardio: COMMON NORMALS: no JVD, regular rate, regular rhythm, S1 normal heart sound present and S2 normal heart sound present RATE: regular rate RHYTHM: regular rhythm HEART SOUNDS: S1 normal heart sound present and S2 normal heart sound present GI: COMMON NORMALS: Normal to inspection, nondistended, normoactive bowel sounds present : COMMON NORMALS: Yes no CVA tenderness BLADDER/KIDNEY EXAM: Yes no CVA tenderness Back/Pelvis: COMMON NORMALS: no CVA tenderness Extremity: COMMON NORMALS: normal to inspection and full ROM Neuro: COMMON NORMALS: no focal motor deficits (Oriented to person only (baseline).) Psych: COMMON NORMALS: cooperative Urinary Catheter Management: Regan: Cath Placed During This Visit: yes Reason for Continuing Indwelling Catheter: Chronic Indwelling Urinary Catheter on Admission Urinary Catheter Date of Insertion: 05/12/25 Urinary Catheter Time of Insertion: 11:00 Data 05/14/25 04:57 05/14/25 04:57 Micro: Microbiology 05/12/25 13:34 Gram Stain - Final Gallbladder Fluid Body Fluid Culture - Preliminary Gram Negative Rods Gram Negative Rods#2 05/12/25 11:05 Urine Culture - Final Urine,Clean Catch Escherichia coli esbl 05/12/25 11:42 Blood Culture - Preliminary Blood NEGATIVE TO DATE 05/12/25 11:40 Blood Culture - Preliminary Blood NEGATIVE TO DATE A&P Assessment and plan 1. Sepsis with encephalopathy without septic shock, due to unspecified organism: Sepsis present on admission but has resolved Secondary to catheter associated UTI (present on admission) Associated with altered mental status, elevated lactate. Has history of Pseudomonas UTI and Enterococcus faecalis bacteremia Blood culture no growth to date Urine culture growing ESBL E. coli Currently on vancomycin and meropenem 2. Complicated UTI (urinary tract infection): Urine culture grew ESBL E. coli Midline placed Currently on meropenem, plan for 7 days of IV ertapenem on discharge 3. Chronic indwelling Regan catheter: For urinary retention from BPH. Regan replaced in the ER on 05/12. 4. Hydronephrosis, bilateral: Chronic but resolving on repeat CT scan done on admission 5. H/O insertion of cholecystostomy tube: He has a cholecystostomy tube. CTAP on admission noted small 2.6 x 2.1 x 1.9 mildly complex collection in the right hepatic lobe. ER physician had a conversation with patient's outpatient surgeon who suggested this to be most likely a seroma versus biloma versus hematoma and suggested patient to be treated with IV antibiotic as he is not a good surgical candidate anyways. 6. Stage 2 chronic kidney disease: Has since then resolved after placing Regan. Monitor renal functions daily. Medical reconciliation done for nephrotoxic drugs. 7. Acute metabolic encephalopathy: Secondary to sepsis and UTI 8. Hyperkalemia: Treat with Kayexalate orally and sodium bicarb one-time. Resolved 9. Type 2 diabetes mellitus: Last A1c of 6.3. Insulin sliding scale. 10. Elevated lactic acid level: Insetting of sepsis. Received sepsis bolus. Continue to monitor. 11. Hyponatremia: Resolved with IV fluids 12. Atrial fibrillation: Atrial fibrillation: Continue home metoprolol Will restart home apixaban (he was on therapeutic dose Lovenox) 13. DVT (deep venous thrombosis): History of DVT Plan: Hypertension: Goal blood pressure less than 140/90 mmHg. Continue with metoprolol as above. Full code Regular carb consistent diet Protonix for PUD prophylaxis Full dose Lovenox will be sufficient for DVT prophylaxis PDMP PDMP Reviewed: Not Reviewed Attestations 2 Medical Necessity Statement*: He has continued hospitalization for IV antibiotics pending discharge to SNF Coding Level of Care Code Acute Code for Chg Fwd Diagnoses Sepsis with encephalopathy without septic shock, due to unspecified organism A41.9; R65.20; G93.41 Sepsis acute organ dysfunction status: with acute organ dysfunction Sepsis type: sepsis due to unspecified organism Severe sepsis acute organ dysfunction type: encephalopathy Severe sepsis shock status: without septic shock Complicated UTI (urinary tract infection) N39.0 Chronic indwelling Regan catheter Z97.8 Hydronephrosis, bilateral N13.30 H/O insertion of cholecystostomy tube Z98.890 Stage 2 chronic kidney disease N18.2 Chronic kidney disease stage: stage 2 (GFR 60-89) Acute metabolic encephalopathy G93.41 Hyperkalemia E87.5 Type 2 diabetes mellitus E11.9 Elevated lactic acid level R79.89 Hyponatremia E87.1 Atrial fibrillation I48.91 DVT (deep venous thrombosis) I82.409
[2025-05-14] MEDS: pantoprazole 40 mg SDV IVP (16:12)
[2025-05-15 02:00] VITALS: BP 174/94; PULSE 78; RESP 16; TEMP 37.6; O2SAT 100
[2025-05-15 04:47] LABS: Hematocrit 32.7 % (37-53); Hemoglobin 10.70 g/dL (11.27-16.99); Mean Corpuscular HGB Conc 32.7 g/dL (30-55); Mean Corpuscular Hemoglobin 29.7 pg (27-33); Mean Corpuscular Volume 90.8 fl (82-101); Nucleated Red Blood Cells % 0 %; Platelet Count 340 10^3/cmm (157-399); Red Blood Count 3.60 10^6/uL (3.85-5.65); White Blood Count 7.52 10^3/uL (3.29-11.43)
[2025-05-15 05:05] LABS: Alanine Aminotransferase < 5 U/L (0-41); Albumin Level 2.7 g/dL (3.5-5.2); Alkaline Phosphatase 132 U/L (40-130); Anion Gap 14.0 (5-19); Aspartate Amino Transferase 7 U/L (0-40); Blood Urea Nitrogen 17 mg/dL (8-23); Calcium 8.2 mg/dL (8.5-10.5); Carbon Dioxide 23 mmol/L (22-29); Chloride 104 mmol/L (98-107); Creatinine Clr Calc Pharmacy 56.8963; Globulin 3.6 g/dL (1.3-4.6); Glucose 117 mg/dL (65-115); Magnesium 1.9 mg/dL (1.7-2.3); Osmolality Calculated 287 mOsm/kg (285-295); Potassium 4.0 mmol/L (3.5-5.1); Sodium 137 mmol/L (136-145); Total Protein 6.3 g/dL (6.6-8.7)
[2025-05-15] MEDS: MEROPENEM 2,000 MG in sodium chloride 0.9% (plus) 50 ML 100 MG IV (05:43)
[2025-05-15 06:00] VITALS: BP 180/88; PULSE 90; RESP 17; TEMP 36.5; O2SAT 95
[2025-05-15 07:43] VITALS: BP 193/98; PULSE 85; RESP 16; TEMP 36.7; O2SAT 96
[2025-05-15] MEDS: hyDRALAzine 20 mg/mL INJ 1 mL 10 MG IVP (09:06)
[2025-05-15 12:00] VITALS: BP 163/97; PULSE 90; RESP 16; TEMP 36.5; O2SAT 97
--- NOTE | 2025-05-15 13:35 | P.DS_ITS ---
Discharge Providers Date of Admission: 05/12/25 15:40 Date of Discharge: May 15, 2025 Attending Provider at Admission: Issa Porter MD Attending Provider at Discharge: Chelsea Rose MD Consults: None Diagnoses at Discharge Discharge Diagnosis 1. Sepsis with encephalopathy without septic shock, due to unspecified organism: 2. Complicated UTI (urinary tract infection): 3. Chronic indwelling Regan catheter: 4. Hydronephrosis, bilateral: 5. H/O insertion of cholecystostomy tube: 6. Stage 2 chronic kidney disease: 7. Acute metabolic encephalopathy: 8. Hyperkalemia: 9. Type 2 diabetes mellitus: 10. Elevated lactic acid level: 11. Hyponatremia: 12. Atrial fibrillation: 13. DVT (deep venous thrombosis): Details from hospital stay: History of DVT Reason for Visit Reason for Visit: uncontrolled pain Brief History: This is a 75-year-old female with atrial fibrillation unspecified, type 2 diabetes mellitus, CKD stage II, history of DVT, history of CVA, BPH, bladder outlet obstruction with chronic indwelling Regan catheter, bilateral hydronephrosis, and recent cholecystitis with cholecystostomy tube in place who presented from SNF for generalized weakness and intractable suprapubic pain. He had sepsis with acute metabolic encephalopathy on admission. His UA was positive for UTI. Hospital Course Hospital Course He was given IV fluids and started on IV antibiotics. CT abdomen pelvis showed improving bilateral hydronephrosis. Urine culture grew ESBL E. coli. He was discharged home on ertapenem for 7 more days. His Regan catheter was changed on admission. He had a cholecystostomy tube placed for cholecystitis a month ago at [facility]. CT abdomen pelvis on admission showed a small 2.6 x 2.1 x 1.9 mildly complex collection in the right hepatic lobe. ED physician discussed findings with his outpatient surgeon who suggested that this was a seroma versus biloma versus hematoma. He will need to follow-up with his general surgeon. He had acute metabolic encephalopathy from his UTI. His mental status is back to baseline. He is alert and oriented x 1-3. Physical Exam Narrative: GEN: Alert, no acute distress HEENT: Normocephalic, atraumatic, PERRLA Neck: Supple Respiratory: Clear to auscultation bilaterally, no respiratory distress Cardio: Regular rate, irregular rhythm, S1, S2, no murmur Abdomen: Cholecystostomy tube with serous fluid in drain, soft, nontender, nondistended, normoactive bowel sounds Extremity: Warm no edema Neuro: Alert, oriented x 3, no focal deficits Urinary Catheter Management: Regan: Cath Placed During This Visit: yes Reason for Continuing Indwelling Catheter: Chronic Indwelling Urinary Catheter on Admission Urinary Catheter Date of Insertion: 05/12/25 Urinary Catheter Time of Insertion: 11:00 Discharge Data Studies Completed and Pending Completed Studies During Hospitalization Category Date Time Status CT abdomen pelvis w con* [id number] Stat Cat Scan 05/12/25 11:[address] head wo con* [id number] Stat Cat Scan 05/12/25 12:17 Completed XR hip RT 2-3V wo/w pel* [id number] Stat Exams 05/12/25 11:30 Completed Pending at discharge Category Date Time Status Blood Culture Stat Lab 05/12/25 11:42 Results Body Fluid Culture & GS Stat Lab 05/12/25 13:34 Results Radiology Impressions Hip/Pelvis X-Ray 05/12/25 11:30 Impression: 1. Mild osteoarthritis of the right hip. 2. Stable repair of left acetabular fracture. Abdomen/Pelvis CT 05/12/25 11:49 IMPRESSION: 1. Status post placement of percutaneous cholecystostomy tube with decompression of the gallbladder. A small gallstone is again noted. 2. Small 2.6 x 2.1 x 2.9 cm mildly complex hypodense lesion in the right hepatic lobe adjacent to the gallbladder fossa, segment 5, which is new since the prior study and could represent a small hematoma or abscess. 3. Persistent mild hydroureteronephrosis with mild thickening and enhancement of the ureteral sandhu and decompressed urinary bladder around a Regan catheter with irregular thickening of the bladder wall and mild stranding of the adjacent fat. Findings are suspicious for an infectious process. Please correlate clinically. 4. Copious amount of fecal material distending the rectum with a moderate amount of fecal material throughout the remainder of the colon. Please correlate clinically for symptoms of constipation. 5. Other chronic findings described above. ADDENDUM: 05/12/25 [id number] THIS REPORT CONTAINS FINDINGS THAT MAY BE CRITICAL TO PATIENT CARE. The findings were verbally communicated via telephone conference with JANE LLOYD at 1:43 PM CDT on 05/12/2025. The findings were acknowledged and understood. Head CT 05/12/25 12:17 IMPRESSION: 1. No evidence of intracranial hemorrhage or mass effect. 2. LEFT sphenoid sinusitis 3. No acute intracranial findings. Laboratory Results WBC 7.52 10^3/uL (3.29-11.43) 05/15/25 04:25 RBC 3.60 10^6/uL (3.85-5.65) L 05/15/25 04:25 Hgb 10.70 g/dL (11.27-16.99) L 05/15/25 04:25 Hct 32.7 % (37-53) L 05/15/25 04:25 MCV 90.8 fl (82-101) D 05/15/25 04:25 MCH 29.7 pg (27-33) 05/15/25 04:25 MCHC 32.7 g/dL (30-55) D 05/15/25 04:25 RDW 17.2 % (12.1-15.1) H 05/15/25 04:25 Plt Count 340 10^3/cmm (157-399) 05/15/25 04:25 MPV 8.8 fL (7.4-10.4) 05/15/25 04:25 Neut % (Auto) 66.7 % 05/15/25 04:25 Lymph % (Auto) 19.9 % 05/15/25 04:25 Beltr[place] % (Auto) 9.6 % 05/15/25 04:25 Eos % (Auto) 2.7 % 05/15/25 04:25 Baso % (Auto) 0.7 % 05/15/25 04:25 Neut # (Auto) 5.02 10^3/uL (1.8-7.7) 05/15/25 04:25 Lymph # (Auto) 1.5 10^3/uL (0.8-4.8) 05/15/25 04:25 Beltrami # (Auto) 0.7 10^3/uL (0.2-0.9) 05/15/25 04:25 Eos # (Auto) 0.2 10^3/uL (0.0-0.8) 05/15/25 04:25 Baso # (Auto) 0.1 10^3/uL (0.0-0.1) 05/15/25 04:25 Nucleated RBC % (auto) 0 % 05/15/25 04:25 Nucleated RBCs # 0.0 /100WBC 05/15/25 04:25 Sodium 137 mmol/L (136-145) 05/15/25 04:25 Potassium 4.0 mmol/L (3.5-5.1) 05/15/25 04:25 Chloride 104 mmol/L (98-107) 05/15/25 04:25 Carbon Dioxide 23 mmol/L (22-29) 05/15/25 04:25 Anion Gap 14.0 (5-19) 05/15/25 04:25 BUN 17 mg/dL (8-23) 05/15/25 04:25 Creatinine 1.2 mg/dL (0.7-1.2) 05/15/25 04:25 GFR Calculation Not Reportable 05/15/25 04:25 Glucose 117 mg/dL (65-115) H 05/15/25 04:25 POC Glucose 152 mg/dL (70-110) H 05/15/25 11:59 Calculated Osmolality 287 mOsm/kg (285-295) 05/15/25 04:25 Lactic Acid 3.3 mmol/L (0.5-2.2) H 05/12/25 10:32 Lactic Acid (Sepsis) 0.9 mmol/L (0.5-2.2) 05/12/25 13:25 Calcium 8.2 mg/dL (8.5-10.5) L 05/15/25 04:25 Phosphorus 2.5 mg/dL (2.5-4.5) 05/15/25 04:25 Magnesium 1.9 mg/dL (1.7-2.3) 05/15/25 04:25 Iron 38 ug/dL (59-158) L 05/12/25 10:32 TIBC 237 mcg/dl 05/12/25 10:32 % Saturation 16.0 % (20-50) L 05/12/25 10:32 Unsat Iron Binding 199 ug/dL (112-347) 05/12/25 10:32 Total Bilirubin 0.2 mg/dL (0.15-1.2) 05/15/25 04:25 AST 7 U/L (0-40) 05/15/25 04:25 ALT < 5 U/L (0-41) 05/15/25 04:25 Alkaline Phosphatase 132 U/L (40-130) H 05/15/25 04:25 Total Protein 6.3 g/dL (6.6-8.7) L 05/15/25 04:25 Albumin 2.7 g/dL (3.5-5.2) L 05/15/25 04:25 Globulin 3.6 g/dL (1.3-4.6) 05/15/25 04:25 Lipase 62 U/L (13-60) H 05/12/25 10:32 Vitamin B12 804 pg/mL (232-1245) 05/12/25 10: Folate 8.8 ng/mL (4.5-32.2) 05/13/25 04:30 Procalcitonin 0.06 ng/mL (0-0.5) 05/13/25 04:30 Urine Color Yellow (Yellow) 05/12/25 11:05 Urine Appearance Turbid (CLEAR) A 05/12/25 11:05 Urine pH 5.5 (5-7) 05/12/25 11:05 Ur Specific Leland 1.017 (1.005-1.030) 05/12/25 11:05 Urine Protein 4+ (Negative) A 05/12/25 11:05 Urine Glucose (UA) Negative (Normal) 05/12/25 11:05 Urine Ketones Negative (Negative) 05/12/25 11:05 Urine Blood 2+ (Negative) A 05/12/25 11:05 Urine Nitrate Positive (Negative) A 05/12/25 11:05 Urine Bilirubin Negative (Negative) 05/12/25 11:05 Urine Urobilinogen 0.2 mg/dL (Negative) 05/12/25 11:05 Ur Leukocyte Esterase 3+ (Negative) A 05/12/25 11:05 Urine RBC 5-10 /hpf (0-2) H 05/12/25 11:05 Urine WBC >100 /hpf (0-5) H 05/12/25 11:05 Ur Squamous Epith Cells 5-10 /hpf (0-5) H 05/12/25 11:05 Amorphous Sediment Not Reportable 05/12/25 11:05 Urine Bacteria 3+ /hpf (NONE) H 05/12/25 11:05 Urine Mucus 1+ /hpf 05/12/25 11:05 Vancomycin Trough 26.1 ug/mL (10-15) H* 05/14/25 14:19 Vitals Last Vital Signs Temp 97.7 F 05/15/25 12:00 Pulse 90 05/15/25 12:00 Resp 16 05/15/25 12:00 BP 163/97 05/15/25 12:00 Pulse Ox 97 05/15/25 12:00 O2 Del Method Room Air 05/15/25 12:00 O2 Flow Rate 2 05/14/25 20:00 Discharge Plan Discharge Patient Disposition: Xfer SNF Condition: Stable Prescriptions: New ertapenem 1 gram recon soln 1 g IV DAILY 7 Days Continued silver sulfadiazine 1 % cream See Rx Instructions .ROUTE .COMPLEX Rx Instructions: Apply topically twice daily. Cleanse with Normal Saline and gauze, apply cream to buttock and cover with foam dressing and secure in place with tape. nystatin 100,000 unit/gram cream See Rx Instructions .ROUTE .COMPLEX Rx Instructions: Apply topically every shift. Cleanse ximena area and buttocks with Normal Saline and gauze, pat dry and apply Nystatin. metoprolol tartrate 25 mg Tablet 50 mg PO BID@0900,2100 Qty: 90 0RF tramadol 50 mg tablet 50 mg PO Q6H PRN (Reason: Pain) acetaminophen 325 mg Tablet 650 mg PO Q6H PRN (Reason: PAIN OR FEVER) Eliquis 5 mg tablet 5 mg PO BID insulin aspart U-100 [Novolog FlexPen U-100 Insulin] 100 unit/mL (3 mL) insulin pen See Rx Instructions .ROUTE .COMPLEX Rx Instructions: INJECT BEFORE MEALS AND AT BEDTIME PER SLIDING SCALE: BS 201-250= 2 UNITS, 251-300= 4 UNITS, 301-350= 6 UNITS, 351-400= 8 UNITS. CALL PCP IF BS <60 AMD >400 IF SYMPTOMATIC X 3 READINGS. ondansetron 4 mg tablet,disintegrating 4 mg PO Q6H PRN (Reason: nausea and vomiting) Qty: 14 0RF cyanocobalamin (vitamin B-12) [Vitamin B-12] 250 mcg Tablet 250 mcg PO DAILY I-Celine 300 mcg-200 mg-27 mg-2 mg Tablet 1 tab PO DAILY Rx Instructions: administer after a meal Discharge Order = DC NOW: Discharge Order (Routine); Ordered 05/15/25 Ordered By: Chelsea Milton Discharge Diet: Cardiac Discharge Activity: Increase activity as tolerated Activity Restrictions/Additional Instructions: Follow up with physician at SNF. He will need to follow up with GI/general surgery re his cholecystomy tube. Follow as previously recommended from discharge at facility it was placed at. Discharge Attestations Time Spent in Discharge Care*: greater than 30 min Status at Discharge: Cognitive status at discharge: cognitively intact , Behavioral status at discharge: cooperative , Quality Metrics Clinical Quality Measures [ No reported AMI, CVA or VTE this stay] Coding Level of Care Code 06436 Diagnoses Sepsis with encephalopathy without septic shock, due to unspecified organism A41.9; R65.20; G93.41 Sepsis acute organ dysfunction status: with acute organ dysfunction Sepsis type: sepsis due to unspecified organism Severe sepsis acute organ dysfunction type: encephalopathy Severe sepsis shock status: without septic shock Complicated UTI (urinary tract infection) N39.0 Chronic indwelling Regan catheter Z97.8 Hydronephrosis, bilateral N13.30 H/O insertion of cholecystostomy tube Z98.890 Stage 2 chronic kidney disease N18.2 Chronic kidney disease stage: stage 2 (GFR 60-89) Acute metabolic encephalopathy G93.41 Hyperkalemia E87.5 Type 2 diabetes mellitus E11.9 Elevated lactic acid level R79.89 Hyponatremia E87.1 Atrial fibrillation I48.91 DVT (deep venous thrombosis) I82.409
[2025-05-15 16:00] VITALS: BP 167/96; PULSE 93; RESP 17; TEMP 36.7; O2SAT 97
== END 2025-05-15 16:40 | disposition skilled nursing facility (03) | DRG 698 ==
LOC: ER 15:14 → MEDSURG 15:40
PROVIDERS: Admitting Provider Student in an Organized Health Care Education/Training Program; Emergency Provider Family Medicine; Visit Provider Student in an Organized Health Care Education/Training Program
DX: T83.511A Infection and inflammatory reaction due to indwelling urethral catheter, initial encounter (principal); A41.9 Sepsis, unspecified organism; R65.20 Severe sepsis without septic shock; G93.41 Metabolic encephalopathy; N13.30 Unspecified hydronephrosis; E87.1 Hypo-osmolality and hyponatremia; N13.8 Other obstructive and reflux uropathy; Y73.8 Miscellaneous gastroenterology and urology devices associated with adverse incidents, not elsewhere classified; B96.20 Unspecified Escherichia coli [E. coli] as the cause of diseases classified elsewhere; E11.22 Type 2 diabetes mellitus with diabetic chronic kidney disease; N18.2 Chronic kidney disease, stage 2 (mild); E87.5 Hyperkalemia; I48.91 Unspecified atrial fibrillation; N40.1 Benign prostatic hyperplasia with lower urinary tract symptoms; R33.8 Other retention of urine; B96.5 Pseudomonas (aeruginosa) (mallei) (pseudomallei) as the cause of diseases classified elsewhere; E78.5 Hyperlipidemia, unspecified; F32.A Depression, unspecified; E11.40 Type 2 diabetes mellitus with diabetic neuropathy, unspecified; Z79.4 Long term (current) use of insulin; Z79.01 Long term (current) use of anticoagulants; Z79.891 Long term (current) use of opiate analgesic; Z86.718 Personal history of other venous thrombosis and embolism; Z86.73 Personal history of transient ischemic attack (TIA), and cerebral infarction without residual deficits; Z87.891 Personal history of nicotine dependence; Z97.8 Presence of other specified devices
CPT/HCPCS: 36415; 36416; 36569; 51702; 70450; 73502; 74177; 80048; 80053; 80202; 81001; 82607; 82746; 82962; 83540; 83550; 83605; 83690; 83735; 84100; 84145; 85025; 86403; 87040; 87070; 87075; 87077; 87086; 87186; 87205; 94664; 96365; 96367; 96372; 99285; C1751; J0360; J1650; J1815; J2185; J2470; J3372; J3373; J7030; J7050; J9999